=== PATIENT | male | born 1955 | race Caucasian/White ===

== ENCOUNTER → 2018-05-12 09:48 | Outpatient (CLI) | payer OTHER, SELFPAY ==
[2018-05-12 11:35] LABS: Add Manual Diff / Slide Review NO; Basophils Percent Auto 0.5 % (0-2); Eosinophils Percent Auto 0.5 % (2-4); Hematocrit 45.5 % (41-53); Hemoglobin 16.4 g/dL (13.5-17.5); Mean Corpuscular Hemoglobin 33.6 PG (26-34); Mean Corpuscular Volume 93.5 fL (80-100); Monocytes Percent Auto 15.8 % (3-14); Neutrophils Absolute Auto 4400 /uL (3000-5900); Neutrophils Percent Auto 65.2 % (50-75); Platelet Count 203 X10^3/uL (150-400); Red Blood Cell Count 4.87 X10^6/uL (4.5-5.9); Red Cell Distribution Width 12.6 % (11.6-14.8); White Blood Cell Count 6.8 X10^3/uL (4.5-11.0)
[2018-05-12 11:59] LABS: Alanine Aminotransferase 304 IU/L (21-72); Albumin 4.4 g/dL (3.5-5.0); Albumin Globulin Ratio 1.1 (1.0-2.8); Alkaline Phosphatase 89 U/L (38-126); Aspartate Aminotransferase 241 IU/L (17-59); BUN Creatinine Ratio 17.5 (6-22); Bilirubin Total 0.9 mg/dL (0.2-1.3); Blood Urea Nitrogen 14 mg/dL (9-20); Calcium 9.3 mg/dL (8.4-10.2); Carbon Dioxide 33 mmol/L (22-32); Chloride 102 mmol/L (98-107); Estimated Glomerular Filt Rate > 60.0 mL/min (>60); Glucose 146 mg/dL (80-110); HEMOLYSIS 19 (0-50); Potassium 3.7 mmol/L (3.4-5.1); Sodium 144 mmol/L (137-145); Total Protein 8.4 g/dL (6.3-8.2)
[2018-05-12 13:04] LABS: Hemoglobin A1C% w Est Avg Glu 5.7 % (4.0-6.0)
[2018-05-16 14:18] LABS: Parathyroid Hormone Int 64 pg/mL (14-64)
== END ==
PROVIDERS: PCP Internal Medicine; Visit Provider Internal Medicine
DX: K73.9 Chronic hepatitis, unspecified (principal); E78.2 Mixed hyperlipidemia; R97.20 Elevated prostate specific antigen [PSA]; I10 Essential (primary) hypertension; I25.10 Atherosclerotic heart disease of native coronary artery without angina pectoris; R73.9 Hyperglycemia, unspecified
CPT/HCPCS: 36415; 80053; 83036; 83970; 84153; 85025

== ENCOUNTER → 2018-08-07 12:12 | Outpatient (CLI) | payer OTHER, SELFPAY ==
[2018-08-07 14:14] LABS: BUN Creatinine Ratio 26.3 (6-22); Blood Urea Nitrogen 21 mg/dL (9-20); Calcium 9.5 mg/dL (8.4-10.2); Carbon Dioxide 30 mmol/L (22-32); Chloride 106 mmol/L (98-107); Estimated Glomerular Filt Rate > 60.0 mL/min (>60); Glucose 93 mg/dL (80-110); HEMOLYSIS < 15 (0-50); Potassium 4.3 mmol/L (3.4-5.1); Sodium 145 mmol/L (137-145)
== END ==
PROVIDERS: PCP Internal Medicine; Visit Provider Internal Medicine
DX: B19.20 Unspecified viral hepatitis C without hepatic coma (principal); E83.52 Hypercalcemia; R97.20 Elevated prostate specific antigen [PSA]
CPT/HCPCS: 36415; 80048; 84153

== ENCOUNTER → 2019-01-24 06:57 | Outpatient (CLI) | payer OTHER, SELFPAY ==
[2019-01-24 07:43] LABS: Alanine Aminotransferase 229 IU/L (21-72); Albumin 4.6 g/dL (3.5-5.0); Albumin Globulin Ratio 1.2 (1.0-2.8); Alkaline Phosphatase 97 U/L (38-126); Aspartate Aminotransferase 169 IU/L (17-59); Bilirubin Total 1.2 mg/dL (0.2-1.3); Blood Urea Nitrogen 16 mg/dL (9-20); Calcium 10.1 mg/dL (8.4-10.2); Carbon Dioxide 29 mmol/L (22-32); Chloride 102 mmol/L (98-107); Cholesterol 181 mg/dL (140-199); Estimated Glomerular Filt Rate > 60.0 mL/min (>60); Globulin 3.9 g/dL (1.7-4.1); Glucose 143 mg/dL (80-110); HDL Cholesterol 52 mg/dL (40-60); HEMOLYSIS < 15 (0-50); LDL Cholesterol Calculated 107 mg/dL (<100); Sodium 140 mmol/L (137-145); Total Protein 8.5 g/dL (6.3-8.2); Triglycerides 110 mg/dL (35-150)
[2019-01-24 08:14] LABS: Prostate Specific Antigen 8.26 ng/mL (0.10-4.00)
== END ==
PROVIDERS: PCP Internal Medicine; Visit Provider Internal Medicine
DX: B19.20 Unspecified viral hepatitis C without hepatic coma (principal); I10 Essential (primary) hypertension; I25.10 Atherosclerotic heart disease of native coronary artery without angina pectoris; R97.20 Elevated prostate specific antigen [PSA]; E78.2 Mixed hyperlipidemia
CPT/HCPCS: 36415; 80053; 80061; 84153

== ENCOUNTER 2019-03-16 12:12 | Emergency (ER) | payer OTHER, SELFPAY ==
[2019-03-16 12:14] VITALS: BP 186/95; PULSE 70; RESP 18; TEMP 37; O2SAT 99
--- NOTE | 2019-03-16 12:26 | DI.CT.S_ITS ---
PROCEDURE: CT ABDOMEN PELVIS W CON INDICATIONS: pain TECHNIQUE: After the administration of intravenous contrast, 5 mm thick sections acquired from the diaphragm to the symphysis. 5 mm coronal and sagittal reformats were acquired. For radiation dose reduction, the following was used: automated exposure control, adjustment of mA and/or kV according to patient size. COMPARISON: [facility], CT, ABDOMEN/PELVIS WITH CONTRAST, 11/14/2016, 14:59. FINDINGS: Image quality: Excellent. ABDOMEN: Lung bases: Lung bases are clear. Heart size is normal. Solid organs: There are clustered coarse calcifications redemonstrated in the right anterior hepatic dome likely representing sequelae of prior infection. The gallbladder appears within normal limits without calcified gallstones. Biliary system is non-dilated. There are small foci of calcifications within the pancreas suggesting sequelae of chronic pancreatitis. No peripancreatic fat stranding or fluid collections to suggest acute pancreatitis. No pancreatic duct dilatation. The spleen is normal in size. No adrenal nodules. Kidneys demonstrate no hydronephrosis. Peritoneum and bowel: Small bowel loops demonstrate normal wall thickness and caliber. The appendix is normal in appearance. The cecum is located in the left paracentral region of the lower abdomen. No bowel distention or dilatation to suggest obstruction or volvulus. There is colonic diverticulosis without definite acute diverticulitis. There is mild segmental wall thickening in the sigmoid colon suggestive of a mild colitis. No free fluid or air. Nodes and vessels: No retroperitoneal or mesenteric adenopathy by size criteria. Aorta and inferior vena cava are normal in size. Miscellaneous: No ventral hernias. PELVIS: Genitourinary: Bladder wall thickness is normal. There is heterogeneity of the prostate. There is a slightly hyperattenuating mass lesion in the right peripheral zone measuring approximately 2.2 x 1.7 cm in transverse dimension. Miscellaneous: No inguinal hernias or adenopathy. Bones: No suspicious bony lesions. No vertebral body compression fractures. IMPRESSION: 1. Mild segmental wall thickening in the sigmoid colon suggestive of a nonspecific infectious or inflammatory colitis. 2. Colonic diverticulosis without definite acute diverticulitis. 3. Heterogeneous appearance of the prostate with a slightly hyperattenuating mass lesion on the right. Recommend urologic consultation and consider further evaluation with a prostate MRI if clinically indicated. Dictated by: Brian Austin M.D. on 03/16/2019 at 13:47 Approved by: Brian Austin M.D. on 03/16/2019 at 13:55
[2019-03-16 12:30] VITALS: BP 178/99; PULSE 56; RESP 16; TEMP 36.7; O2SAT 100
--- NOTE | 2019-03-16 12:43 | ED.NAVMDI ---
HPI - Nausea/Vomiting/Diarrhea General Chief complaint: Nausea/Vomiting/Diarrhea Stated complaint: vomiting for 3 days Time Seen by Provider: 03/16/19 12:20 Source: patient Mode of arrival: ambulatory Limitations: no limitations History of Present Illness HPI Narrative: Patient is a 63-year-old male who presents with nausea vomiting abdominal pain ongoing for 3 days. He has a history of hepatitis-C. He says he does get these flare-ups at times he has ODT Zofran at home however he was unable to keep that down I did not seem to be working. He does have a history coronary artery disease he has not been able to take his heart medication either. He denies any diarrhea. He does get severe episodes like this he is usually able to control it however this time he is not. Pain seems to be quite severe and he is quite nauseous as well. MD complaint: nausea, vomiting and abdominal pain Onset (ago): day(s) (3) Description of Vomiting: watery Description of Diarrhea: none Related Data Home Medications Medication Instructions Recorded Confirmed aspirin 81 mg PO QDAY #0 04/05/13 02/01/19 Previous Rx's Medication Instructions Recorded morphine 20 mg/5 mL (4 mg/mL) oral See Rx Instructions .ROUTE 05/12/18 solution .COMPLEX PRN #100 ml simvastatin 40 mg PO QDAY #90 tab 06/12/18 ondansetron [Zofran ODT] 4 mg SUBLINGUAL Q6HP PRN #20 odt 06/15/18 clopidogrel 75 mg tablet 75 mg PO QDAY #90 tab 10/03/18 cyclobenzaprine 0 PO TID #90 tab 10/17/18 oxycodone 5 mg tablet See Rx Instructions PO Q4HP PRN 11/16/18 #360 tab metoprolol tartrate 50 mg PO BID #60 tab 02/12/19 Allergies Allergy/AdvReac Type Severity Reaction Status Date / Time No Known Drug Allergies Allergy Verified 02/01/19 09:20 Review of Systems Review of Systems GENERAL: Denies chills, fatigue, malaise, fever, sweats, travel HEENT: Denies sinus pain, ear pain, sore throat, difficulty swallowing, neck pain RESPIRATORY: Denies dyspnea, cough, wheezing, hemoptysis, sputum. CARDIOVASCULAR: Denies chest pain, palpitations, orthopnea, edema GASTROINTESTINAL: See HPI : Denies dysuria, frequency, incontinence, hematuria, urinary retention, flank pain. MUSCULOSKELETAL: Denies weakness, joint pain, or bony pain SKIN: No rash, no erythema, no pruritus NEUROLOGIC: Denies weakness, dizziness, headache, numbness, change in speech, confusion PSYCHIATRIC: No concerning psychosocial issues. 12 point review of systems is negative except for those stated above and HPI [facility] Medical History Diverticular disease (Chronic) Hepatitis C (Chronic) Mixed hyperlipidemia (Chronic) Essential hypertension (Chronic) Coronary artery disease involving [place] coronary artery of [place] heart without angina pectoris (Chronic) Cardiac arrhythmia (Chronic) Chronic hepatitis (Chronic) Diverticulosis of large intestine (Chronic 03/31/12) Abdominal pain (Resolved) Kidney stones (Resolved) Surgical History Hx of inguinal hernia surgery (Resolved ~09/20/08) Hx of inguinal hernia surgery (Resolved ~03/07/14) History of angioplasty (~12/2006) Status post laminectomy Social History marital status: unmarried,single number of children: 3 household members: none lives independently: Yes caregiver/support person: No housing: house pets and animals: No education level: high school (11th grade) occupational status: 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 HEENT: Head atraumatic,EOMI, pupils reactive CARDIOVASCULAR: Regular rate and rhythm without murmurs, rubs or gallops. RESPIRATORY: Breath sounds equal bilaterally, no wheezes rales or rhonchi. ABDOMEN: Soft, diffusely tender no guarding no rebound distention : No CVA tenderness EXTREMITIES: Normal range of motion, no clubbing or edema. Neurovascularly intact NEUROLOGICAL: Alert and oriented x4.Normal gait and speech. Cranial nerves II through XII grossly intact. SKIN: Warm, dry, no laceration, no petechiae, no rashes or lesions. Course Orders Ordered: ED Orders 03/16/19 12:25 EKG-12 Lead Stat 03/16/19 12:26 CT abdomen pelvis w con Stat 03/16/19 12:50 Complete Blood Count AUTO DIFF Stat Comprehensive Metabolic Panel Stat Lipase Stat Partial Thromboplastin Time Stat Prothrombin Time INR Stat 03/16/19 14:01 US abdomen limited Stat 03/16/19 16:10 Urine Microscopic Stat Discontinued Medications Hydromorphone HCl (Dilaudid) 1 mg SUBCUT Q4H PRN PRN Reason: Pain, Severe (7-10) Hydromorphone HCl (Dilaudid) 1 mg IV NOW ONE Stop: 03/16/19 13:00 Last Admin: 03/16/19 13:01 Dose: 1 mg Hydromorphone HCl (Dilaudid) 1 mg IV NOW ONE Stop: 03/16/19 15:22 Last Admin: 03/16/19 15:53 Dose: 1 mg Sodium Chloride (Normal Saline 0.9%) 1,000 mls @ 1,000 mls/hr IV BOLUS ONE Stop: 03/16/19 13:25 Last Infusion: 03/16/19 14:49 Dose: 0 mls/hr Admin: 03/16/19 13:03 Dose: 1,000 mls/hr Ondansetron HCl (Zofran) 4 mg IV NOW ONE Stop: 03/16/19 12:19 Last Admin: 03/16/19 13:00 Dose: 4 mg Ondansetron HCl (Zofran) 4 mg IV NOW ONE Stop: 03/16/19 12:27 Last Admin: 03/16/19 14:49 Dose: Not Given Pantoprazole Sodium (Protonix) 40 mg IV NOW ONE Stop: 03/16/19 12:27 Last Admin: 03/16/19 13:05 Dose: 40 mg Vital Signs - 8 hr 03/16/19 12:14 03/16/19 12:30 03/16/19 14:30 Temperature 98.6 F 98.0 F Pulse Rate 70 56 L 72 Respiratory Rate 18 16 14 Blood Pressure 186/95 H Blood Pressure [Right Arm] 178/99 H 127/83 Pulse Oximetry 99 100 98 03/16/19 16:09 Temperature 97.5 F L Pulse Rate 71 Respiratory Rate 18 Blood Pressure Blood Pressure [Right Arm] 124/77 Pulse Oximetry 96 MDM - Nausea/Vomiting/Diarrhea Lab Data Attestation: I reviewed the patient's lab results. Result diagrams: 03/16/19 12:50 03/16/19 12:50 Lab Results 03/16/19 03/16/19 03/16/19 Range/Units 12:50 12:50 12:50 WBC 7.9 (4.5-11.0) X10^3/uL RBC 5.35 (4.5-5.9) X10^6/uL Hgb 17.7 H (13.5-17.5) g/dL Hct 50.2 (41-53) % MCV 93.8 (80-100) fL MCH 33.1 (26-34) PG MCHC 35.3 (30-36) % RDW 12.7 (11.6-14.8) % Plt Count 196 (150-400) X10^3/uL Neut % (Auto) 88.1 H (50-75) % Lymph % (Auto) 6.2 L (25-40) % Nash % (Auto) 5.3 (3-14) % Eos % (Auto) 0.1 L (2-4) % Baso % (Auto) 0.3 (0-2) % Neut # (Auto) 7000 (4633-4727) /uL Lymph # (Auto) 500 L (8337-7931) /uL Nash # (Auto) 400 (0-900) /uL Eos # (Auto) 0 (0-450) /uL Baso # (Auto) 0 (0-100) /uL PT 12.3 (10.1-12.7) SECONDS INR 1.1 (0.9-1.3) APTT 25 L (26.4-36.2) SECONDS Sodium 142 (137-145) mmol/L Potassium 4.0 (3.4-5.1) mmol/L Chloride 104 (98-107) mmol/L Carbon Dioxide 25 (22-32) mmol/L BUN 23 H (9-20) mg/dL Creatinine 0.80 (0.66-1.25) mg/dL Estimated GFR > 60.0 (>60) mL/min BUN/Creatinine Ratio 28.8 H (6-22) Glucose 213 H (80-110) mg/dL Calcium 10.0 (8.4-10.2) mg/dL Total Bilirubin 2.3 H (0.2-1.3) mg/dL AST 354 H (17-59) IU/L ALT 366 H (21-72) IU/L Alkaline Phosphatase 101 (38-126) U/L Total Protein 9.1 H (6.3-8.2) g/dL Albumin 4.8 (3.5-5.0) g/dL Globulin 4.3 H (1.7-4.1) g/dL Albumin/Globulin Ratio 1.1 (1.0-2.8) Lipase 51 (23-300) U/L Urine RBC (0-5/HPF) Urine WBC (0-5/HPF) Urine Bacteria (None) Ur Culture Indicated? Micro UA Comment 03/16/19 Range/Units 16:10 WBC (4.5-11.0) X10^3/uL RBC (4.5-5.9) X10^6/uL Hgb (13.5-17.5) g/dL Hct (41-53) % MCV (80-100) fL MCH (26-34) PG MCHC (30-36) % RDW (11.6-14.8) % Plt Count (150-400) X10^3/uL Neut % (Auto) (50-75) % Lymph % (Auto) (25-40) % Nash % (Auto) (3-14) % Eos % (Auto) (2-4) % Baso % (Auto) (0-2) % Neut # (Auto) (0184-7923) /uL Lymph # (Auto) (4996-4496) /uL Nash # (Auto) (0-900) /uL Eos # (Auto) (0-450) /uL Baso # (Auto) (0-100) /uL PT (10.1-12.7) SECONDS INR (0.9-1.3) APTT (26.4-36.2) SECONDS Sodium (137-145) mmol/L Potassium (3.4-5.1) mmol/L Chloride (98-107) mmol/L Carbon Dioxide (22-32) mmol/L BUN (9-20) mg/dL Creatinine (0.66-1.25) mg/dL Estimated GFR (>60) mL/min BUN/Creatinine Ratio (6-22) Glucose (80-110) mg/dL Calcium (8.4-10.2) mg/dL Total Bilirubin (0.2-1.3) mg/dL AST (17-59) IU/L ALT (21-72) IU/L Alkaline Phosphatase (38-126) U/L Total Protein (6.3-8.2) g/dL Albumin (3.5-5.0) g/dL Globulin (1.7-4.1) g/dL Albumin/Globulin Ratio (1.0-2.8) Lipase (23-300) U/L Urine RBC None seen (0-5/HPF) Urine WBC None seen (0-5/HPF) Urine Bacteria None seen (None) Ur Culture Indicated? Cult not indicated Micro UA Comment Microscopic normal Urine Dip Bedside Urine Glucose Negative Bedside Urine Bilirubin - Negative Bedside Urine Ketone + 15 Urine Specific [place] 1.010 Bedside Urine Occult Blood - Negative Bedside Urine pH 6.5 Bedside Urine Protein +/- 15 Bedside Urine Urobilinogen 1+ 2mg Bedside Urine Nitrite - Negative Bedside Urine Leukocytes - Negative Esterase Imaging Data CT scan - abdomen: Radiologist's impression: PROCEDURE: CT ABDOMEN PELVIS W CON INDICATIONS: pain TECHNIQUE: After the administration of intravenous contrast, 5 mm thick sections acquired from the diaphragm to the symphysis. 5 mm coronal and sagittal reformats were acquired. For radiation dose reduction, the following was used: automated exposure control, adjustment of mA and/or kV according to patient size. COMPARISON: [facility], CT, ABDOMEN/PELVIS WITH CONTRAST, 11/14/2016, 14:59. FINDINGS: Image quality: Excellent. ABDOMEN: Lung bases: Lung bases are clear. Heart size is normal. Solid organs: There are clustered coarse calcifications redemonstrated in the right anterior hepatic dome likely representing sequelae of prior infection. The gallbladder appears within normal limits without calcified gallstones. Biliary system is non-dilated. There are small foci of calcifications within the pancreas suggesting sequelae of chronic pancreatitis. No peripancreatic fat stranding or fluid collections to suggest acute pancreatitis. No pancreatic duct dilatation. The spleen is normal in size. No adrenal nodules. Kidneys demonstrate no hydronephrosis. Peritoneum and bowel: Small bowel loops demonstrate normal wall thickness and caliber. The appendix is normal in appearance. The cecum is located in the left paracentral region of the lower abdomen. No bowel distention or dilatation to suggest obstruction or volvulus. There is colonic diverticulosis without definite acute diverticulitis. There is mild segmental wall thickening in the sigmoid colon suggestive of a mild colitis. No free fluid or air. Nodes and vessels: No retroperitoneal or mesenteric adenopathy by size criteria. Aorta and inferior vena cava are normal in size. Miscellaneous: No ventral hernias. PELVIS: Genitourinary: Bladder wall thickness is normal. There is heterogeneity of the prostate. There is a slightly hyperattenuating mass lesion in the right peripheral zone measuring approximately 2.2 x 1.7 cm in transverse dimension. Miscellaneous: No inguinal hernias or adenopathy. Bones: No suspicious bony lesions. No vertebral body compression fractures. IMPRESSION: 1. Mild segmental wall thickening in the sigmoid colon suggestive of a nonspecific infectious or inflammatory colitis. 2. Colonic diverticulosis without definite acute diverticulitis. 3. Heterogeneous appearance of the prostate with a slightly hyperattenuating mass lesion on the right. Recommend urologic consultation and consider further evaluation with a prostate MRI if clinically indicated. Dictated by: Brian Austin M.D. on 03/16/2019 at 13:4 US - abdomen: Radiologist's impression: PROCEDURE: US ABDOMEN LIMITED INDICATIONS: ELEV BILI, RUQ TECHNIQUE: Real-time focused scanning was performed of the abdomen, with image documentation. COMPARISON: [facility], CT, CT ABDOMEN PELVIS W CON, 03/16/2019, 13:21. FINDINGS: The liver is normal in size. There is slight increased echogenicity of the liver when compared to the right kidney. Posterior calcifications is seen within the right hepatic lobe near the dome of the liver. No cystic or solid liver lesion is evident. There is no intrahepatic or extrahepatic biliary dilatation. The common bile duct measures 6 mm in diameter. The gallbladder is within normal limits without cholelithiasis or gall bladder wall inflammation. Imaged portions of the right kidney are unremarkable. The imaged portions of the pancreas are also unremarkable. No free fluid is seen within the upper abdomen. IMPRESSION: 1. No cholelithiasis or evidence to suggest acute cholecystitis. 2. Calcified granulomas of the liver. 3. Possible mild hepatic steatosis. Dictated by: Raghavendra Marcos M.D. on 03/16/2019 at 14:15 Approved by: Raghavendra Marcos M.D. on 03/16/2019 at 14:18 ECG Data Attestation: I personally reviewed and interpreted this ECG as follows: Prior ECG tracings: available for review Interpretation: Low voltage sinus rhythm no ST changes MDM Narrative Medical decision making narrative: The patient has mild colitis on CT. he has no leukocytosis he has been afebrile. However this might be part of his pain. He is also noted to have elevated bilirubin and liver enzymes. Ultrasound did not show any gallstones or dilated biliary duct. From his hepatitis. He states that his numbers have been gradually getting worse as well. He was worried he may have a gall bladder issue. At this time we discussed antibiotics for colitis versus conservative watchful waiting. At this time he does not want antibiotics he does not tolerate them well. I see no clear indication for them without fever or leukocytosis. He overall is feeling significantly better after Dilaudid he is tolerating oral fluids. He feels ready and able to go down. Discharge Plan Departure Patient Disposition: Home Clinical Impression: Colitis Discharge Date/Time: 03/16/19 16:49 Interventions: ED Discharge Assessment Last Done: 03/16/19 16:49 Instructions: DI for Colitis Activity Restrictions/Additional Instructions: *You have been diagnosed with colitis *What to do: At this time he likely have some inflammation of her intestine. At this time let us try and hold off antibiotics and see if it improves. It is only listed as mild the CT. Her gallbladder and liver enzymes are slightly elevated however ultrasound is reassuring. This is likely from her hepatitis. *Continue to take medications as directed *Follow up with your primary care provider in 2-3 days *Return to ER if you should have inability to tolerate fluids, worsening pain or any new, worsening or concerning symptoms Prescriptions: No Action aspirin 81 MG tablet,delayed release (DR/EC) 81 mg PO QDAY Qty: 0 RF: 0 simvastatin 40 mg tablet 40 mg PO QDAY Qty: 90 RF: 3 ondansetron [Zofran ODT] 4 mg tablet,disintegrating 4 mg Sublingual Q6HP PRNQty: 20 RF: 0 clopidogrel [Plavix] 75 mg tablet 75 mg PO QDAY Qty: 90 RF: 3 cyclobenzaprine 5 mg tablet PO TID Qty: 90 RF: 1 oxycodone 5 mg tablet See Rx Instructions PO Q4HP PRN (Reason: pain) Qty: 360 RF: 0 metoprolol tartrate 50 mg tablet 50 mg PO BID Qty: 60 RF: 3 morphine 20 mg/5 mL (4 mg/mL) solution See Rx Instructions .ROUTE .COMPLEX PRN (Reason: severe pain) Qty: 100 RF: 0 Referrals: Khang Vasques MD [Primary Care Provider] -
[2019-03-16 12:57] LABS: Add Manual Diff / Slide Review NO; Basophils Absolute Auto 0 /uL (0-100); Basophils Percent Auto 0.3 % (0-2); Eosinophils Absolute Auto 0 /uL (0-450); Eosinophils Percent Auto 0.1 % (2-4); Hematocrit 50.2 % (41-53); Hemoglobin 17.7 g/dL (13.5-17.5); Lymphocytes Absolute Auto 500 /uL (1100-4500); Lymphocytes Percent Auto 6.2 % (25-40); Mean Corpuscular HGB Conc 35.3 % (30-36); Mean Corpuscular Hemoglobin 33.1 PG (26-34); Mean Corpuscular Volume 93.8 fL (80-100); Monocytes Absolute Auto 400 /uL (0-900); Monocytes Percent Auto 5.3 % (3-14); Neutrophils Absolute Auto 7000 /uL (1500-7000); Neutrophils Percent Auto 88.1 % (50-75); Platelet Count 196 X10^3/uL (150-400); Red Blood Cell Count 5.35 X10^6/uL (4.5-5.9); Red Cell Distribution Width 12.7 % (11.6-14.8); White Blood Cell Count 7.9 X10^3/uL (4.5-11.0)
[2019-03-16] MEDS: ONDANSETRON 4 MG/2 ML INJ IV (13:00)
[2019-03-16] MEDS: HYDROMORPHONE 1 MG INJ IV ×2 (13:01→15:53)
[2019-03-16 13:03] LABS: INR 1.1 (0.9-1.3); Prothrombin Time 12.3 SECONDS (10.1-12.7)
[2019-03-16] MEDS: SODIUM CHLORIDE 0.9% 1,000 ML 1000 ML IV (13:03)
[2019-03-16 13:05] LABS: PTT Partial Thromboplastin Tim 25 SECONDS (26.4-36.2)
[2019-03-16] MEDS: PANTOPRAZOLE 40 MG VIAL IV (13:05)
[2019-03-16 13:07] LABS: Alanine Aminotransferase 366 IU/L (21-72); Albumin 4.8 g/dL (3.5-5.0); Albumin Globulin Ratio 1.1 (1.0-2.8); Alkaline Phosphatase 101 U/L (38-126); Aspartate Aminotransferase 354 IU/L (17-59); BUN Creatinine Ratio 28.8 (6-22); Bilirubin Total 2.3 mg/dL (0.2-1.3); Blood Urea Nitrogen 23 mg/dL (9-20); Carbon Dioxide 25 mmol/L (22-32); Chloride 104 mmol/L (98-107); Estimated Glomerular Filt Rate > 60.0 mL/min (>60); Globulin 4.3 g/dL (1.7-4.1); Glucose 213 mg/dL (80-110); HEMOLYSIS < 15 (0-50); Lipase 51 U/L (23-300); Sodium 142 mmol/L (137-145); Total Protein 9.1 g/dL (6.3-8.2)
--- NOTE | 2019-03-16 14:01 | DI.US.S_ITS ---
PROCEDURE: US ABDOMEN LIMITED INDICATIONS: ELEV BILI, RUQ TECHNIQUE: Real-time focused scanning was performed of the abdomen, with image documentation. COMPARISON: [facility], CT, CT ABDOMEN PELVIS W CON, 03/16/2019, 13:21. FINDINGS: The liver is normal in size. There is slight increased echogenicity of the liver when compared to the right kidney. Posterior calcifications is seen within the right hepatic lobe near the dome of the liver. No cystic or solid liver lesion is evident. There is no intrahepatic or extrahepatic biliary dilatation. The common bile duct measures 6 mm in diameter. The gallbladder is within normal limits without cholelithiasis or gall bladder wall inflammation. Imaged portions of the right kidney are unremarkable. The imaged portions of the pancreas are also unremarkable. No free fluid is seen within the upper abdomen. IMPRESSION: 1. No cholelithiasis or evidence to suggest acute cholecystitis. 2. Calcified granulomas of the liver. 3. Possible mild hepatic steatosis. Dictated by: Raghavendra Marcos M.D. on 03/16/2019 at 14:15 Approved by: Raghavendra Marcos M.D. on 03/16/2019 at 14:18
[2019-03-16 14:30] VITALS: BP 127/83; PULSE 72; RESP 14; O2SAT 98
[2019-03-16 16:09] VITALS: BP 124/77; PULSE 71; RESP 18; TEMP 36.4; O2SAT 96
[2019-03-16 16:15] LABS: Bacteria Urine None Seen; RBC Urine None Seen (0-5/HPF); WBC Urine None Seen (0-5/HPF)
[2019-03-16 16:22] LABS: Culture Indicated Urine Cult Not Indicated; Urine Comments Microscopic Normal
== END 2019-03-16 16:49 | disposition home or self-care (01) ==
PROVIDERS: Emergency Provider Emergency Medicine; PCP Internal Medicine
DX: K52.9 Noninfective gastroenteritis and colitis, unspecified (principal); R10.84 Generalized abdominal pain
CPT/HCPCS: 36591; 74177; 76705; 80053; 81003; 81015; 83690; 85025; 85610; 85730; 93005; 93010; 96361; 96374; 96375; 96376; 99283; 99285; C9113; J1170; J2405; Q9967

== ENCOUNTER 2019-04-22 19:31 | Emergency (ER) | payer OTHER, SELFPAY ==
[2019-04-22 19:54] VITALS: BP 194/91; PULSE 56; RESP 19; TEMP 37.3; O2SAT 100; BMI 21.9
--- NOTE | 2019-04-22 20:07 | ED.ABDPAIN ---
HPI - Abdominal Pain General Chief Complaint: Abdominal Pain Stated Complaint: ?cholitis today Time Seen by Provider: 04/22/19 20:00 Source: patient and old records reviewed Mode of arrival: ambulatory Limitations: no limitations History of Present Illness HPI narrative: Patient is a 63-year-old male presenting with lower abdominal pain, he said it started around 4:00 a.m. this morning. He has had this in fact I saw him a month ago for the same. He was diagnosed with colitis at that time no antibiotics were given. He saw his PCP he was given prednisone to help with some of the inflammation. He actually started taking some of the prednisone for this pain but it has not helped. He has able to keep any of his medications down due to vomiting. He has not had any diarrhea. He seems to be in severe pain. MD complaint: abdominal pain Onset (ago): hour(s) Severity: severe Quality: cramping Radiation: none Migration to: no migration Relieving factors: nothing Exacerbating factors: nothing Related Data Home Medications Medication Instructions Recorded Confirmed aspirin 81 mg PO QDAY #0 04/05/13 04/19/19 cyclobenzaprine 5 mg tablet 5 mg PO TID PRN tab 03/20/19 04/19/19 Previous Rx's Medication Instructions Recorded simvastatin 40 mg PO QDAY #90 tab 06/12/18 ondansetron [Zofran ODT] 4 mg SUBLINGUAL Q6HP PRN #20 odt 06/15/18 clopidogrel 75 mg tablet 75 mg PO QDAY #90 tab 10/03/18 metoprolol tartrate 50 mg PO BID #60 tab 02/12/[address] - ER 3 mg 6 mg PO QAM #60 each 03/20/19 capsule,delayed,extended release morphine 20 mg/5 mL (4 mg/mL) oral See Rx Instructions .ROUTE 03/20/19 solution .COMPLEX PRN #100 ml oxycodone 5 mg tablet See Rx Instructions PO Q4HP PRN 03/20/19 #360 tab Allergies Allergy/AdvReac Type Severity Reaction Status Date / Time No Known Drug Allergies Allergy Verified 04/19/19 09:33 Review of Systems Review of Systems GENERAL: Denies chills, fatigue, malaise, fever, sweats, travel HEENT: Denies sinus pain, ear pain, sore throat, difficulty swallowing, neck pain RESPIRATORY: Denies dyspnea, cough, wheezing, hemoptysis, sputum. CARDIOVASCULAR: Denies chest pain, palpitations, orthopnea, edema GASTROINTESTINAL: See HPI : Denies dysuria, frequency, incontinence, hematuria, urinary retention, flank pain. MUSCULOSKELETAL: Denies weakness, joint pain, or bony pain SKIN: No rash, no erythema, no pruritus NEUROLOGIC: Denies weakness, dizziness, headache, numbness, change in speech, confusion PSYCHIATRIC: No concerning psychosocial issues. 12 point review of systems is negative except for those stated above and HPI [facility] Medical History Diverticular disease (Chronic) Hepatitis C (Chronic) Mixed hyperlipidemia (Chronic) Essential hypertension (Chronic) Coronary artery disease involving [place] coronary artery of [place] heart without angina pectoris (Chronic) Cardiac arrhythmia (Chronic) Chronic hepatitis (Chronic) Diverticulosis of large intestine (Chronic 03/31/12) Abdominal pain (Resolved) Kidney stones (Resolved) Surgical History Hx of inguinal hernia surgery (Resolved ~09/20/08) Hx of inguinal hernia surgery (Resolved ~03/07/14) History of angioplasty (~12/2006) Status post laminectomy Social History marital status: unmarried,single number of children: 3 household members: none lives independently: Yes caregiver/support person: No housing: house pets and animals: No education level: high school (11th grade) occupational status: 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) Smoking Status: Former smoker Tobacco: How many years used: 56 (On and off.) Smokeless tobacco user: other (Marijuana) quit status: has quit before (On and off.) second hand exposure: Yes (On farm[place]/Boat.) alcohol intake: current (1 beer 3x a week.) substance use type: does not use and marijuana (On and off.) Social History marital status: unmarried,single number of children: 3 household members: none lives independently: Yes caregiver/support person: No housing: house pets and animals: No education level: high school (11th grade) occupational status: 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 RESPIRATORY: Breath sounds equal bilaterally, no wheezes rales or rhonchi. ABDOMEN: Significant lower abdominal tenderness no localization no distension : No CVA tenderness EXTREMITIES: Normal range of motion, no clubbing or edema. Neurovascularly intact NEUROLOGICAL: Alert and oriented x4.Normal gait and speech. Cranial nerves II through XII grossly intact. SKIN: Warm, dry, no laceration, no petechiae, no rashes or lesions. Course Orders Ordered: ED Orders 04/22/19 20:07 CT abdomen pelvis w con Stat 04/22/19 20:18 Complete Blood Count AUTO DIFF Stat Comprehensive Metabolic Panel Stat Lipase Stat Partial Thromboplastin Time Stat Prothrombin Time INR Stat Discontinued Medications Hydromorphone HCl (Dilaudid) 1 mg IV NOW ONE Stop: 04/22/19 20:08 Last Admin: 04/22/19 20:17 Dose: 1 mg Hydromorphone HCl (Dilaudid) 1 mg IV NOW ONE Stop: 04/22/19 21:42 Last Admin: 04/22/19 21:49 Dose: 1 mg Sodium Chloride (Normal Saline 0.9%) 1,000 mls @ 1,000 mls/hr IV BOLUS ONE Stop: 04/22/19 21:06 Last Infusion: 04/22/19 21:42 Dose: 0 mls/hr Admin: 04/22/19 20:17 Dose: 1,000 mls/hr Ketorolac Tromethamine (Toradol) 30 mg IV NOW ONE Stop: 04/22/19 22:18 Last Admin: 04/22/19 22:24 Dose: 30 mg Methylprednisolone (Solu-Medrol 125 Mg Vial) 125 mg IV NOW ONE Stop: 04/22/19 21:44 Last Admin: 04/22/19 21:49 Dose: 125 mg Ondansetron HCl (Zofran) 4 mg IV NOW ONE Stop: 04/22/19 20:08 Last Admin: 04/22/19 20:17 Dose: 4 mg Vital Signs - 8 hr 04/22/19 19:54 04/22/19 21:00 04/22/19 22:30 Temperature 99.2 F Pulse Rate 56 L 76 82 Respiratory Rate 19 15 Blood Pressure 194/91 H Blood Pressure [Left Arm] Blood Pressure [Left Wrist] 125/76 132/82 Pulse Oximetry 100 97 97 04/22/19 22:44 Temperature Pulse Rate 76 Respiratory Rate 16 Blood Pressure Blood Pressure [Left Arm] 132/82 Blood Pressure [Left Wrist] Pulse Oximetry 98 MDM - Abdominal Pain Lab Data Attestation: I reviewed the patient's lab results. Result diagrams: 04/22/19 20:18 04/22/19 20:18 Lab Results 04/22/19 04/22/19 04/22/19 Range/Units 20:18 20:18 20:18 WBC 7.2 (4.5-11.0) X10^3/uL RBC 4.86 (4.5-5.9) X10^6/uL Hgb 16.2 (13.5-17.5) g/dL Hct 46.1 (41-53) % MCV 94.8 (80-100) fL MCH 33.4 (26-34) PG MCHC 35.2 (30-36) % RDW 13.1 (11.6-14.8) % Plt Count 156 (150-400) X10^3/uL Neut % (Auto) 87.7 H (50-75) % Lymph % (Auto) 7.6 L (25-40) % [place] % (Auto) 4.6 (3-14) % Eos % (Auto) 0.0 L (2-4) % Baso % (Auto) 0.1 (0-2) % Neut # (Auto) 6300 (2777-1143) /uL Lymph # (Auto) 600 L (7243-7767) /uL [place] # (Auto) 300 (0-900) /uL Eos # (Auto) 0 (0-450) /uL Baso # (Auto) 0 (0-100) /uL PT 12.4 (10.1-12.7) SECONDS INR 1.1 (0.9-1.3) APTT 29 D (26.4-36.2) SECONDS Sodium 140 (137-145) mmol/L Potassium 3.9 (3.4-5.1) mmol/L Chloride 108 H (98-107) mmol/L Carbon Dioxide 22 (22-32) mmol/L BUN 15 (9-20) mg/dL Creatinine 0.60 L (0.66-1.25) mg/dL Estimated GFR > 60.0 (>60) mL/min BUN/Creatinine Ratio 25.0 H (6-22) Glucose 223 H (80-110) mg/dL Calcium 9.6 (8.4-10.2) mg/dL Total Bilirubin 1.5 H (0.2-1.3) mg/dL AST 108 H (17-59) IU/L ALT 173 H (21-72) IU/L Alkaline Phosphatase 106 (38-126) U/L Total Protein 8.3 H (6.3-8.2) g/dL Albumin 4.3 (3.5-5.0) g/dL Globulin 4.0 (1.7-4.1) g/dL Albumin/Globulin Ratio 1.1 (1.0-2.8) Lipase 21 L (23-300) U/L Imaging Data CT scan - abdomen: Radiologist's impression: PROCEDURE: CT ABDOMEN PELVIS W CON INDICATIONS: severe low ab pain TECHNIQUE: After the administration of intravenous contrast, 5 mm thick sections acquired from the diaphragm to the symphysis. 5 mm coronal and sagittal reformats were acquired. For radiation dose reduction, the following was used: automated exposure control, adjustment of mA and/or kV according to patient size. COMPARISON: [facility], CT, CT ABDOMEN PELVIS W CON, 03/16/2019, 13:21. FINDINGS: Image quality: Excellent. ABDOMEN: Lung bases: Lung bases are clear. Heart size is normal. Solid organs: Liver is normal in size and enhancement. Small area of calcification at the hepatic dome is unchanged. Gallbladder is unremarkable. Biliary system is non dilated. Pancreas enhances normally. Punctate calcification at the tail the pancreas. Spleen is normal in size and enhancement. No adrenal nodules. Kidneys demonstrate normal size and enhancement, without hydronephrosis. Small simple cyst in the inferior right kidney. Peritoneum and bowel: The small bowel is in the right abdomen and the colon is in the left abdomen. There is reversal of the relationship of the SMA and SMV. Findings consistent with bowel malrotation. Mild colonic diverticulosis. The appendix is normal. The stomach is not distended. No bowel obstruction or significant ileus. Nodes and vessels: No retroperitoneal or mesenteric adenopathy by size criteria. Aorta and inferior vena cava are normal in size. Moderate aortoiliac atherosclerotic plaque. Miscellaneous: No ventral hernias. PELVIS: Genitourinary: Bladder wall thickness is normal. Miscellaneous: No inguinal hernias or adenopathy. Bones: No suspicious bony lesions. Mild DDD. No vertebral body compression fractures. IMPRESSION: 1. No acute abnormality identified. 2. Mild colonic diverticulosis. Bowel malrotation. Dictated by: Eric Butt M.D. on 04/22/2019 at 21:07 MDM Narrative Medical decision making narrative: Patient's pain did improve significantly with Dilaudid. He is afebrile no leukocytosis. Similar to previous labs and CT. Actually discussed with radiologist dimensions bowel malrotation. This a can general. It was also actually seen on the previous CT. This is unlikely to be causing acute pain. Patient of is given more Dilaudid and even a dose of Toradol. The Toradol seemed to help him the most. At this time he is tolerating fluids overall feeling significantly better. No indication for admission. Discussed with both patient and and to return to the ED. Strongly recommended only. Discharge Plan Departure Patient Disposition: Home Clinical Impression: Abdominal pain Qualifiers: Abdominal location: lower abdomen, unspecified Qualified Code(s): R10.30 - Lower abdominal pain, unspecified Discharge Date/Time: 04/22/19 22:59 Interventions: ED Discharge Assessment Last Done: 04/22/19 23:05 Instructions: DI for Abdominal Pain-Adult Activity Restrictions/Additional Instructions: *You have been diagnosed with abdominal pain *What to do: CT does not show significant inflammation. No sign of infection. Recommend colonoscopy which can be set up with her PCP *Continue to take medications as directed *Follow up with your primary care provider in 2-3 days *Return to ER if you should have increasing pain inability to tolerate fluids or any new, worsening or concerning symptoms Prescriptions: No Action aspirin 81 MG tablet,delayed release (DR/EC) 81 mg PO QDAY Qty: 0 RF: 0 simvastatin 40 mg tablet 40 mg PO QDAY Qty: 90 RF: 3 ondansetron [Zofran ODT] 4 mg tablet,disintegrating 4 mg Sublingual Q6HP PRNQty: 20 RF: 0 clopidogrel [Plavix] 75 mg tablet 75 mg PO QDAY Qty: 90 RF: 3 metoprolol tartrate 50 mg tablet 50 mg PO BID Qty: 60 RF: 3 cyclobenzaprine 5 mg tablet 5 mg PO TID PRNRF: 0 budesonide 3 mg capsule,delayed,extend.release 6 mg PO QAM Qty: 60 RF: 3 morphine 20 mg/5 mL (4 mg/mL) solution See Rx Instructions .ROUTE .COMPLEX PRN (Reason: severe pain) Qty: 100 RF: 0 oxycodone 5 mg tablet See Rx Instructions PO Q4HP PRN (Reason: pain) Qty: 360 RF: 0 Referrals: Khang Vasques MD [Primary Care Provider] -
[2019-04-22] MEDS: HYDROMORPHONE 1 MG INJ IV ×2 (20:17→21:49)
[2019-04-22] MEDS: ONDANSETRON 4 MG/2 ML INJ IV (20:17)
[2019-04-22] MEDS: SODIUM CHLORIDE 0.9% 1,000 ML 1000 ML IV (20:17)
[2019-04-22 20:24] LABS: Add Manual Diff / Slide Review NO; Basophils Absolute Auto 0 /uL (0-100); Basophils Percent Auto 0.1 % (0-2); Eosinophils Absolute Auto 0 /uL (0-450); Hematocrit 46.1 % (41-53); Hemoglobin 16.2 g/dL (13.5-17.5); Lymphocytes Absolute Auto 600 /uL (1100-4500); Lymphocytes Percent Auto 7.6 % (25-40); Mean Corpuscular HGB Conc 35.2 % (30-36); Mean Corpuscular Hemoglobin 33.4 PG (26-34); Mean Corpuscular Volume 94.8 fL (80-100); Monocytes Absolute Auto 300 /uL (0-900); Monocytes Percent Auto 4.6 % (3-14); Neutrophils Absolute Auto 6300 /uL (1500-7000); Neutrophils Percent Auto 87.7 % (50-75); Platelet Count 156 X10^3/uL (150-400); Red Blood Cell Count 4.86 X10^6/uL (4.5-5.9); Red Cell Distribution Width 13.1 % (11.6-14.8); White Blood Cell Count 7.2 X10^3/uL (4.5-11.0)
[2019-04-22 20:33] LABS: INR 1.1 (0.9-1.3); Prothrombin Time 12.4 SECONDS (10.1-12.7)
[2019-04-22 20:36] LABS: PTT Partial Thromboplastin Tim 29 SECONDS (26.4-36.2)
[2019-04-22 20:37] LABS: Alanine Aminotransferase 173 IU/L (21-72); Albumin 4.3 g/dL (3.5-5.0); Albumin Globulin Ratio 1.1 (1.0-2.8); Alkaline Phosphatase 106 U/L (38-126); Aspartate Aminotransferase 108 IU/L (17-59); Bilirubin Total 1.5 mg/dL (0.2-1.3); Blood Urea Nitrogen 15 mg/dL (9-20); Calcium 9.6 mg/dL (8.4-10.2); Carbon Dioxide 22 mmol/L (22-32); Chloride 108 mmol/L (98-107); Estimated Glomerular Filt Rate > 60.0 mL/min (>60); Glucose 223 mg/dL (80-110); HEMOLYSIS < 15 (0-50); Lipase 21 U/L (23-300); Potassium 3.9 mmol/L (3.4-5.1); Sodium 140 mmol/L (137-145); Total Protein 8.3 g/dL (6.3-8.2)
[2019-04-22 21:00] VITALS: BP 125/76; PULSE 76; O2SAT 97
[2019-04-22] MEDS: methylPREDNISolone 125 MG/2 ML VIAL IV (21:49)
[2019-04-22] MEDS: KETOROLAC 60 MG/2 ML VIAL 30 MG IV (22:24)
[2019-04-22 22:30] VITALS: BP 132/82; PULSE 82; RESP 15; O2SAT 97
[2019-04-22 22:44] VITALS: BP 132/82; PULSE 76; RESP 16; O2SAT 98
== END 2019-04-22 22:59 | disposition home or self-care (01) ==
PROVIDERS: Emergency Provider Emergency Medicine; PCP Internal Medicine
DX: R10.30 Lower abdominal pain, unspecified (principal)
CPT/HCPCS: 36591; 74177; 80053; 83690; 85025; 85610; 85730; 96361; 96374; 96375; 96376; 99283; 99284; J1170; J1885; J2405; J2930; Q9967

== ENCOUNTER 2019-05-20 14:36 | Emergency (ER) | payer OTHER, SELFPAY ==
[2019-05-20] VITALS (8 sets, daily range): BP systolic 101–205; BP diastolic 72–102; PULSE 43–76; RESP 9–24; TEMP 36.6–36.9; O2SAT 98–100
--- NOTE | 2019-05-20 15:15 | DI.CT.S_ITS ---
PROCEDURE: CT ABDOMEN PELVIS W CON INDICATIONS: severe pain TECHNIQUE: After the administration of intravenous contrast, 5 mm thick sections acquired from the diaphragm to the symphysis. 5 mm coronal and sagittal reformats were acquired. For radiation dose reduction, the following was used: automated exposure control, adjustment of mA and/or kV according to patient size. COMPARISON: [facility], US, US ABDOMEN LIMITED, 03/16/2019, 14:32. [facility], CT, CT-IVP, 11/13/2009, 11:10. [facility], CT, CT ABDOMEN PELVIS W CON, 03/16/2019, 13:21. [facility], CT, ABDOMEN/PELVIS WITH CONTRAST, 11/14/2016, 14:59. [facility], CT, CT ABDOMEN PELVIS W CON, 04/22/2019, 20:45. FINDINGS: Image quality: Excellent. ABDOMEN: Lung bases: Lung bases are clear. Heart size is normal. Solid organs: Liver is normal in size and enhancement. Dense calcification can be seen involving the right liver dome. Gallbladder is partially collapsed at the time of this study. Biliary system is non dilated. Pancreas enhances normally. Spleen is normal in size and enhancement. No adrenal nodules. Kidneys demonstrate normal size and enhancement, without hydronephrosis. A simple appearing cyst measuring water density and 1 cm can be seen inferior pole of the right kidney laterally. Peritoneum and bowel: Bowel malrotation is seen, with cecum to left to the midline. The superior mesenteric vein is seen to the left of the superior mesenteric artery (reversal from the normal anatomy). The colon is seen on the left side of the abdomen and demonstrates generalized inflammation. Mild surrounding inflammatory changes are seen. The small bowel loops are not dilated. There is seen on the right side of the abdomen. There are a few distal loops of small bowel demonstrate formed stool within. No free air or significant free fluid can be seen. A few distal colonic diverticula can be seen. Nodes and vessels: No retroperitoneal or mesenteric adenopathy by size criteria. Aorta and inferior vena cava are normal in size. Atherosclerotic calcification is noted. Miscellaneous: A mild periumbilical hernia is seen, containing fat. PELVIS: Genitourinary: Bladder wall thickness is normal. There is heterogeneity and increased enhancement seen involving the lateral right prostate. Miscellaneous: No inguinal hernias or adenopathy. Bones: No suspicious bony lesions. No vertebral body compression fractures. There are degenerative changes are seen, which are most prominent involving lower lumbar spine. IMPRESSION: Generalized colonic wall thickening can be seen with mild surrounding inflammatory change. This is attributed to nonspecific colitis. Please correlate with potential infectious inflammatory causes. A few distal small bowel loops demonstrate formed stool, without dilatation. This is can be seen in patients with stagnant small bowel contents. Bowel malrotation again noted. Abnormal enhancement and heterogeneous lateral aspect of prostate. Prostate mass is suspected. If not already done, please consider a urologic consultation. A dedicated prostate MRI may also be helpful for further evaluation (assuming that there is no contraindication). Incidental note is made of: Fat-containing periumbilical hernia Liver dome calcification, which demonstrates a benign appearance. Simple appearing right renal cyst Lower lumbar spine degenerative change Diverticulosis is seen, without findings of active diverticulitis. Dictated by: Adrian Segovia M.D. on 05/20/2019 at 15:38 Approved by: Adrian Segovia M.D. on 05/20/2019 at 15:52
[2019-05-20] MEDS: ONDANSETRON 4 MG/2 ML INJ IV (15:16)
[2019-05-20] MEDS: SODIUM CHLORIDE 0.9% 1,000 ML 1000 ML IV (15:16)
--- NOTE | 2019-05-20 15:20 | ED_ITS ---
HPI - Abdominal Pain General Chief Complaint: Abdominal Pain Stated Complaint: Throwing up Time Seen by Provider: 05/20/19 15:14 Source: patient and old records reviewed Limitations: no limitations History of Present Illness HPI narrative: Patient is a 63-year-old male who presents with severe lower abdominal pain. He has had this multiple times before history of colitis, blood work has been reassuring. He was last seen 04/22/2019. He says this started this morning he started vomiting now has severe pain. His heart rate is low in the 40s. He denies any chest pain shortness of breath dizziness or lightheadedness. He said he has thrown up multiple times. No bowel movements. He is in significant amount of pain. This seems to be happening to him once a month. MD complaint: abdominal pain Pain Consistency: constant Related Data Home Medications Medication Instructions Recorded Confirmed aspirin 81 mg PO QDAY #0 04/05/13 04/19/19 cyclobenzaprine 5 mg tablet 5 mg PO TID PRN tab 03/20/19 04/19/19 Previous Rx's Medication Instructions Recorded simvastatin 40 mg PO QDAY #90 tab 06/12/18 clopidogrel 75 mg tablet 75 mg PO QDAY #90 tab 10/03/18 metoprolol tartrate 50 mg PO BID #60 tab 02/12/19 budesonide 3 mg 6 mg PO QAM #60 each 03/20/19 capsule,delayed,extended release morphine 20 mg/5 mL (4 mg/mL) oral See Rx Instructions .ROUTE 03/20/19 solution .COMPLEX PRN #100 ml oxycodone 5 mg tablet See Rx Instructions PO Q4HP PRN 03/20/19 #360 tab ondansetron [Zofran ODT] 4 mg SUBLINGUAL Q6HP PRN #20 odt 04/25/19 Allergies Allergy/AdvReac Type Severity Reaction Status Date / Time No Known Drug Allergies Allergy Verified 05/20/19 14:58 Review of Systems Review of Systems Narrative: GENERAL: Denies chills, fatigue, malaise, fever, sweats, travel HEENT: Denies sinus pain, ear pain, sore throat, difficulty swallowing, neck pain RESPIRATORY: Denies dyspnea, cough, wheezing, hemoptysis, sputum. CARDIOVASCULAR: Denies chest pain, palpitations, orthopnea, edema GASTROINTESTINAL: See HPI : Denies dysuria, frequency, incontinence, hematuria, urinary retention, flank pain. MUSCULOSKELETAL: Denies weakness, joint pain, or bony pain SKIN: No rash, no erythema, no pruritus NEUROLOGIC: Denies weakness, dizziness, headache, numbness, change in speech, confusion PSYCHIATRIC: No concerning psychosocial issues. 12 point review of systems is negative except for those stated above and HPI [facility] Medical History Abdominal pain (Resolved) Cardiac arrhythmia (Chronic) Chronic hepatitis (Chronic) Coronary artery disease involving [place] coronary artery of [place] heart without angina pectoris (Chronic) Diverticular disease (Chronic) Diverticulosis of large intestine (Chronic 03/31/12) Essential hypertension (Chronic) Hepatitis C (Chronic) Kidney stones (Resolved) Mixed hyperlipidemia (Chronic) Surgical History History of angioplasty (~12/2006) Hx of inguinal hernia surgery (Resolved ~09/20/08) Hx of inguinal hernia surgery (Resolved ~03/07/14) Status post laminectomy Social History marital status: unmarried,single number of children: 3 household members: none lives independently: Yes caregiver/support person: No housing: house pets and animals: No education level: high school (11th grade) occupational status: 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.) alcohol intake: current (1 beer 3x a week.) substance use type: does not use and marijuana (On and off.) Social History marital status: unmarried,single number of children: 3 household members: none lives independently: Yes caregiver/support person: No housing: house pets and animals: No education level: high school (11th grade) occupational status: 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.) alcohol intake: current (1 beer 3x a week.) substance use type: does not use and marijuana (On and off.) Exam Initial Vital Signs Initial Vital Signs: Vital Signs Temperature 97.8 F 05/20/19 14:56 Pulse Rate 45 L 05/20/19 14:56 Respiratory Rate 24 05/20/19 14:56 Blood Pressure 104/72 05/20/19 14:56 Pulse Oximetry 100 05/20/19 14:56 GENERAL: Patient appears in pain slightly diaphoretic HEENT: Head atraumatic,EOMI, pupils reactive, face symmetric, moist mucous membranes CARDIOVASCULAR: Regular rate and rhythm without murmurs, rubs or gallops. RESPIRATORY: Breath sounds equal bilaterally, no wheezes rales or rhonchi. ABDOMEN: Soft no distention severe abdominal pain : No CVA tenderness EXTREMITIES: Normal range of motion, no clubbing or edema. Neurovascularly intact NEUROLOGICAL: Alert and oriented x4.Normal gait and speech. Cranial nerves II through XII grossly intact. SKIN: Warm, dry, no laceration, no petechiae, no rashes or lesions. Course Orders Ordered: ED Orders 05/20/19 15:02 EKG-12 Lead Stat 05/20/19 15:15 CT abdomen pelvis w con Stat 05/20/19 15:31 Complete Blood Count AUTO DIFF Stat Comprehensive Metabolic Panel Stat Lactate (Lactic Acid) Stat Lipase Stat Partial Thromboplastin Time Stat Prothrombin Time INR Stat 05/20/19 16:00 Urine Microscopic Stat Discontinued Medications Hydromorphone HCl (Dilaudid) 1 mg IV NOW ONE Stop: 05/20/19 15:16 Last Admin: 05/20/19 15:22 Dose: 1 mg Documented by: CHRISTA Hydromorphone HCl (Dilaudid) 2 mg IV NOW ONE Stop: 05/20/19 15:52 Last Admin: 05/20/19 15:58 Dose: 2 mg Documented by: CHRISTA Hydromorphone HCl (Dilaudid) 1 mg IV NOW ONE Stop: 05/20/19 18:27 Last Admin: 05/20/19 18:40 Dose: 1 mg Documented by: VIN Sodium Chloride (Normal Saline 0.9%) 1,000 mls @ 1,000 mls/hr IV BOLUS ONE Stop: 05/20/19 16:03 Last Infusion: 05/20/19 18:45 Dose: 0 mls/hr Documented by: Admin: 05/20/19 15:16 Dose: 1,000 mls/hr Documented by: CHRISTA Sodium Chloride (Normal Saline 0.9%) 1,000 mls @ 1,000 mls/hr IV BOLUS ONE Stop: 05/20/19 16:14 Last Admin: 05/20/19 18:22 Dose: Not Given Documented by: CHRISTA Ketorolac Tromethamine (Toradol) 15 mg IV NOW ONE Stop: 05/20/19 18:34 Last Admin: 05/20/19 18:40 Dose: 15 mg Documented by: VIN Ondansetron HCl (Zofran) 4 mg IV NOW ONE Stop: 05/20/19 15:05 Last Admin: 05/20/19 15:16 Dose: 4 mg Documented by: CHRISTA Pantoprazole Sodium (Protonix) 40 mg IV NOW ONE Stop: 05/20/19 15:16 Last Admin: 05/20/19 15:22 Dose: 40 mg Documented by: CHRISTA Vital Signs Vital signs: Vital Signs - 8 hr 05/20/19 14:56 05/20/19 15:15 05/20/19 15:35 Temperature 97.8 F Pulse Rate 45 L 43 L 43 L Respiratory Rate 24 18 9 L Blood Pressure 104/72 Blood Pressure [Left Arm] 194/93 H 205/102 H Pulse Oximetry 100 100 98 05/20/19 16:48 05/20/19 17:35 05/20/19 18:20 Temperature Pulse Rate 76 74 76 Respiratory Rate 14 17 16 Blood Pressure Blood Pressure [Left Arm] 101/80 116/82 129/88 Pulse Oximetry 99 100 98 05/20/19 18:30 05/20/19 19:11 Temperature 98.4 F Pulse Rate 72 76 Respiratory Rate 20 14 Blood Pressure 131/87 Blood Pressure [Left Arm] 129/88 Pulse Oximetry 99 100 MDM - Abdominal Pain Lab Data Attestation: I reviewed the patient's lab results. Result diagrams: 05/20/19 15:31 05/20/19 15:31 Labs: Lab Results 05/20/19 05/20/19 05/20/19 Range/Units 15:31 15:31 15:31 WBC 5.6 (4.5-11.0) X10^3/uL RBC 4.94 (4.5-5.9) X10^6/uL Hgb 16.6 (13.5-17.5) g/dL Hct 48.0 (41-53) % MCV 97.0 (80-100) fL MCH 33.7 (26-34) PG MCHC 34.7 (30-36) % RDW 13.6 (11.6-14.8) % Plt Count 155 (150-400) X10^3/uL Neut % (Auto) 81.1 H (50-75) % Lymph % (Auto) 10.6 L (25-40) % Bowie % (Auto) 7.7 (3-14) % Eos % (Auto) 0.1 L (2-4) % Baso % (Auto) 0.5 (0-2) % Neut # (Auto) 4500 (6064-0616) /uL Lymph # (Auto) 600 L (7168-4819) /uL Bowie # (Auto) 400 (0-900) /uL Eos # (Auto) 0 (0-450) /uL Baso # (Auto) 0 (0-100) /uL PT 11.8 (10.1-12.7) SECONDS INR 1.0 (0.9-1.3) APTT 31 D (26.4-36.2) SECONDS Sodium 139 (137-145) mmol/L Potassium 3.7 (3.4-5.1) mmol/L Chloride 103 (98-107) mmol/L Carbon Dioxide 25 (22-32) mmol/L BUN 13 (9-20) mg/dL Creatinine 0.70 (0.66-1.25) mg/dL Estimated GFR > 60.0 (>60) mL/min BUN/Creatinine Ratio 18.6 (6-22) Glucose 230 H (80-110) mg/dL Lactate (0.7-2.1) mmol/L Calcium 9.4 (8.4-10.2) mg/dL Total Bilirubin 2.3 H (0.2-1.3) mg/dL AST 480 H (17-59) IU/L ALT 443 H (21-72) IU/L Alkaline Phosphatase 130 H (38-126) U/L Total Protein 7.9 (6.3-8.2) g/dL Albumin 4.1 (3.5-5.0) g/dL Globulin 3.8 (1.7-4.1) g/dL Albumin/Globulin Ratio 1.1 (1.0-2.8) Lipase 27 (23-300) U/L Urine RBC (0-5/HPF) Urine WBC (0-5/HPF) Urine Bacteria (None) Ur Culture Indicated? Micro UA Comment 05/20/19 05/20/19 Range/Units 15:31 16:00 WBC (4.5-11.0) X10^3/uL RBC (4.5-5.9) X10^6/uL Hgb (13.5-17.5) g/dL Hct (41-53) % MCV (80-100) fL MCH (26-34) PG MCHC (30-36) % RDW (11.6-14.8) % Plt Count (150-400) X10^3/uL Neut % (Auto) (50-75) % Lymph % (Auto) (25-40) % Bowie % (Auto) (3-14) % Eos % (Auto) (2-4) % Baso % (Auto) (0-2) % Neut # (Auto) (7969-0485) /uL Lymph # (Auto) (3190-6037) /uL Bowie # (Auto) (0-900) /uL Eos # (Auto) (0-450) /uL Baso # (Auto) (0-100) /uL PT (10.1-12.7) SECONDS INR (0.9-1.3) APTT (26.4-36.2) SECONDS Sodium (137-145) mmol/L Potassium (3.4-5.1) mmol/L Chloride (98-107) mmol/L Carbon Dioxide (22-32) mmol/L BUN (9-20) mg/dL Creatinine (0.66-1.25) mg/dL Estimated GFR (>60) mL/min BUN/Creatinine Ratio (6-22) Glucose (80-110) mg/dL Lactate 2.5 H (0.7-2.1) mmol/L Calcium (8.4-10.2) mg/dL Total Bilirubin (0.2-1.3) mg/dL AST (17-59) IU/L ALT (21-72) IU/L Alkaline Phosphatase (38-126) U/L Total Protein (6.3-8.2) g/dL Albumin (3.5-5.0) g/dL Globulin (1.7-4.1) g/dL Albumin/Globulin Ratio (1.0-2.8) Lipase (23-300) U/L Urine RBC None seen (0-5/HPF) Urine WBC None seen (0-5/HPF) Urine Bacteria None seen (None) Ur Culture Indicated? Cult not indicated Micro UA Comment Microscopic normal Point of care testing: Urine Dip Bedside Urine Glucose 250 mg/dl Bedside Urine Bilirubin - Negative Bedside Urine Ketone +++ 80 Urine Specific Gay 1.015 Bedside Urine Occult Blood - Negative Bedside Urine pH 7.0 Bedside Urine Protein +/- 15 Bedside Urine Urobilinogen +/- 1mg Bedside Urine Nitrite - Negative Bedside Urine Leukocytes - Negative Esterase Imaging Data CT scan - abdomen: Radiologist's impression: PROCEDURE: CT ABDOMEN PELVIS W CON INDICATIONS: severe pain TECHNIQUE: After the administration of intravenous contrast, 5 mm thick sections acquired from the diaphragm to the symphysis. 5 mm coronal and sagittal reformats were acquired. For radiation dose reduction, the following was used: automated exposure control, adjustment of mA and/or kV according to patient size. COMPARISON: [facility], US, US ABDOMEN LIMITED, 03/16/2019, 14:32. [facility], CT, CT-IVP, 11/13/2009, 11:10. [facility], CT, CT ABDOMEN PELVIS W CON, 03/16/2019, 13:21. [facility], CT, ABDOMEN/PELVIS WITH CONTRAST, 11/14/2016, 14:59. [facility], CT, CT ABDOMEN PELVIS W CON, 04/22/2019, 20:45. FINDINGS: Image quality: Excellent. ABDOMEN: Lung bases: Lung bases are clear. Heart size is normal. Solid organs: Liver is normal in size and enhancement. Dense calcification can be seen involving the right liver dome. Gallbladder is partially collapsed at the time of this study. Biliary system is non dilated. Pancreas enhances normally. Spleen is normal in size and enhancement. No adrenal nodules. Kidneys demonstrate normal size and enhancement, without hydronephrosis. A simple appearing cyst measuring water density and 1 cm can be seen inferior pole of the right kidney laterally. Peritoneum and bowel: Bowel malrotation is seen, with cecum to left to the midline. The superior mesenteric vein is seen to the left of the superior mesenteric artery (reversal from the normal anatomy). The colon is seen on the left side of the abdomen and demonstrates generalized inflammation. Mild surrounding inflammatory changes are seen. The small bowel loops are not dilated. There is seen on the right side of the abdomen. There are a few distal loops of small bowel demonstrate formed stool within. No free air or significant free fluid can be seen. A few distal colonic diverticula can be seen. Nodes and vessels: No retroperitoneal or mesenteric adenopathy by size c riteria. Aorta and inferior vena cava are normal in size. Atherosclerotic calcification is noted. Miscellaneous: A mild periumbilical hernia is seen, containing fat. PELVIS: Genitourinary: Bladder wall thickness is normal. There is heterogeneity and increased enhancement seen involving the lateral right prostate. Miscellaneous: No inguinal hernias or adenopathy. Bones: No suspicious bony lesions. No vertebral body compression fractures. There are degenerative changes are seen, which are most prominent involving lower lumbar spine. IMPRESSION: Generalized colonic wall thickening can be seen with mild surrounding inflammatory change. This is attributed to nonspecific colitis. Please correlate with potential infectious inflammatory causes. A few distal small bowel loops demonstrate formed stool, without dilatation. This is can be seen in patients with stagnant small bowel contents. Bowel malrotation again noted. Abnormal enhancement and heterogeneous lateral aspect of prostate. Prostate mass is suspected. If not already done, please consider a urologic consultation. A dedicated prostate MRI may also be helpful for further evaluation (assuming that there is no contraindication). Incidental note is made of: Fat-containing periumbilical hernia Liver dome calcification, which demonstrates a benign appearance. Simple appearing right renal cyst Lower lumbar spine degenerative change Diverticulosis is seen, without findings of active diverticulitis. Dictated by: Adrian Segovia M.D. on 05/20/2019 at 15:38 ECG Data Attestation: I personally reviewed and interpreted this ECG as follows: Prior ECG tracings: available for review Interpretation: Sinus bradycardia rate [address] changes or T-wave in. MDM Narrative Medical decision making narrative: Patient is having once a month episodes of severe abdominal pain. CT does show colitis every noted to be elevated they have been elevated in the past he has had ultrasound of his right quadrant which are essentially negative. He has no pain in his right upper quadrant. Bilirubin is 2.3 not any higher than it has been. He has an appointment with his PCP tomorrow. We discussed admission versus going home. Patient states that once his pain is under control he has pain medicine and nausea medication at home to keep this under control. At this time he is electing to go home. I did recommend colonoscopy in GI consultation. At this time unclear etiology of recurrent severe abdominal discomfort. Discharge Plan Departure Patient Disposition: Home Clinical Impression: Elevated liver enzymes Abdominal pain Qualifiers: Abdominal location: left lower quadrant Qualified Code(s): R10.32 - Left lower quadrant pain Discharge Date/Time: 05/20/19 19:11 Instructions: DI for Abdominal Pain-Adult Activity Restrictions/Additional Instructions: *You have been diagnosed with abdominal pain *What to do: Her liver enzymes are again to be noted to be slightly elevated. However you have no pain at your liver. At this time no indication for antibiotics *Continue to take medications as directed *Follow up with your primary care provider tomorrow as previously scheduled *Return to ER if you should have increased abdominal pain inability tolerate fluids or any new, worsening or concerning symptoms Prescriptions: No Action aspirin 81 MG tablet,delayed release (DR/EC) 81 mg PO QDAY Qty: 0 RF: 0 simvastatin 40 mg tablet 40 mg PO QDAY Qty: 90 RF: 3 clopidogrel [Plavix] 75 mg tablet 75 mg PO QDAY Qty: 90 RF: 3 metoprolol tartrate 50 mg tablet 50 mg PO BID Qty: 60 RF: 3 ondansetron [Zofran ODT] 4 mg tablet,disintegrating 4 mg Sublingual Q6HP PRNQty: 20 RF: 1 cyclobenzaprine 5 mg tablet 5 mg PO TID PRNRF: 0 budesonide 3 mg capsule,delayed,extend.release 6 mg PO QAM Qty: 60 RF: 3 morphine 20 mg/5 mL (4 mg/mL) solution See Rx Instructions .ROUTE .COMPLEX PRN (Reason: severe pain) Qty: 100 RF: 0 oxycodone 5 mg tablet See Rx Instructions PO Q4HP PRN (Reason: pain) Qty: 360 RF: 0 Referrals: Khang Vasques MD [Primary Care Provider] -
[2019-05-20] MEDS: PANTOPRAZOLE 40 MG VIAL IV (15:22)
[2019-05-20] MEDS: HYDROMORPHONE 1 MG INJ IV ×2 (15:22→18:40)
[2019-05-20 15:46] LABS: Add Manual Diff / Slide Review NO; Basophils Absolute Auto 0 /uL (0-100); Basophils Percent Auto 0.5 % (0-2); Eosinophils Absolute Auto 0 /uL (0-450); Eosinophils Percent Auto 0.1 % (2-4); Hemoglobin 16.6 g/dL (13.5-17.5); Lymphocytes Absolute Auto 600 /uL (1100-4500); Lymphocytes Percent Auto 10.6 % (25-40); Mean Corpuscular HGB Conc 34.7 % (30-36); Mean Corpuscular Hemoglobin 33.7 PG (26-34); Monocytes Absolute Auto 400 /uL (0-900); Monocytes Percent Auto 7.7 % (3-14); Neutrophils Absolute Auto 4500 /uL (1500-7000); Neutrophils Percent Auto 81.1 % (50-75); Platelet Count 155 X10^3/uL (150-400); Red Blood Cell Count 4.94 X10^6/uL (4.5-5.9); Red Cell Distribution Width 13.6 % (11.6-14.8); White Blood Cell Count 5.6 X10^3/uL (4.5-11.0)
[2019-05-20 15:52] LABS: Prothrombin Time 11.8 SECONDS (10.1-12.7)
[2019-05-20 15:54] LABS: PTT Partial Thromboplastin Tim 31 SECONDS (26.4-36.2)
[2019-05-20 15:55] LABS: Alanine Aminotransferase 443 IU/L (21-72); Albumin 4.1 g/dL (3.5-5.0); Albumin Globulin Ratio 1.1 (1.0-2.8); Alkaline Phosphatase 130 U/L (38-126); Aspartate Aminotransferase 480 IU/L (17-59); BUN Creatinine Ratio 18.6 (6-22); Bilirubin Total 2.3 mg/dL (0.2-1.3); Blood Urea Nitrogen 13 mg/dL (9-20); Calcium 9.4 mg/dL (8.4-10.2); Carbon Dioxide 25 mmol/L (22-32); Chloride 103 mmol/L (98-107); Estimated Glomerular Filt Rate > 60.0 mL/min (>60); Globulin 3.8 g/dL (1.7-4.1); Glucose 230 mg/dL (80-110); HEMOLYSIS < 15 (0-50); Lipase 27 U/L (23-300); Potassium 3.7 mmol/L (3.4-5.1); Sodium 139 mmol/L (137-145); Total Protein 7.9 g/dL (6.3-8.2)
[2019-05-20 15:56] LABS: Lactate (Lactic Acid) 2.5 mmol/L (0.7-2.1)
[2019-05-20] MEDS: HYDROMORPHONE 1 MG INJ 2 MG IV (15:58)
[2019-05-20 16:22] LABS: Bacteria Urine None Seen; RBC Urine None Seen (0-5/HPF); WBC Urine None Seen (0-5/HPF)
[2019-05-20 16:30] LABS: Culture Indicated Urine Cult Not Indicated; Urine Comments Microscopic Normal
[2019-05-20 17:38] LABS: Reflexed Lactate in 2 Hours Y
[2019-05-20] MEDS: KETOROLAC 60 MG/2 ML VIAL 15 MG IV (18:40)
--- NOTE | 2019-05-20 19:13 | CM.SWNOTE ---
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 She reported that although she has chronic suicidal thoughts, these are worse and I don't feel safe in my own brain. Pt stated that there has been increased tension at home with her mother and feels that Satan is pushing her to fight. Pt reported having storng religions identificaiotn and feels that it is Satan not G-d who is causing her to fight with her mother. Precipitating Event: Pt reported that she has not taken her medications since Tuesday. She became overwhelmed with her medications and felt they were too much to handle. When her mother offered to help, she became angry and just stopped her medications. Pt stated today, I let pride get in my way. In addition to this most recent event, pt reported that her mother is dealing with health issues, her sister has been spending more time at home and her father in November. Current Behavioral Health Providers: Pt reported that she sees Dr Copeland with [facility] and Margarita Millard who is in private practice in [place]. Pt reported that she had been in a DBT group with her therapist,ama delgado is now just seeing her individually as the group was too much to handle regarding transportation and the amount of reading due to some cognitve challenges related to the anoxic brain injury. Psychiatric Hospitalizations: Pt reported that she was hospitalized 10/2018 at [facility]. She found this to be helpful. She again feels the need to be admitted to an inpatient facility. Substance Abuse History: Pt denied any use of either alcohol or drugs. Mental Status: Orientation: Pt is A/O. Affect: appropriate, sad Mood: depressed Thought Content: patient has had AH. SHe denied any current, specific voices, but said there is a feeling of Satan. Thought process: Pt's speech is clear, goal directed, but at times slow and delayed. Insight/judgment: faif/good Memory: appears intact, but was not tested Behavior: Pt was calm, and very cooperative SI/HI: no HI risk. Pt reported suicidal ideaiton. Today when mother was cutting something in the kitchen, pt became worried and told her mother to keep sharp objects away from her. She does not have a specific plan, but feels as though she cannot trust herself to remain safe. Plan: Bed search Discharge Planning/Care Management ED Crisis Response Assessment Start: 05/20/19 19:03 Freq: Status: Active Protocol: Document 05/20/19 19:03 (Rec: 05/20/19 19:12 [id number]) ED Crisis Response Assessment GARBAGE TRUCK DRIVER Assessment Type Risk of Suicide Reason for GARBAGE TRUCK DRIVER Referral Pt came to the Emergency department due to suicidal ideaiton without a clear plan, but unable to contract for safety. She said I don't feel safe in my own brain. Referred by ED staff Presenting Problem Pt is a 36 yo female with a hx of anxiety, depression and previous psychiatric hospitalizations. According to recent note from pt's psychiatrist, Dr Copeland, ... Debbie continues to suffer form significant depressive and anxiety symptoms that have worsened in recent weeks. With the recent passing of her father, the stress on the patient and her family are heightened more than they would be normally. 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
--- NOTE | 2019-05-20 19:31 | CM.SWNOTE ---
Bed Search: Pt is not medically clear at this time,b ut [employer] O[employer]ATOR called both [facility] and [facility] (pt's preference) Info to be faxed to [facility], once medically clear [phone]. They do not have beds today,b ut were ok with info being faxed. [facility] does not have beds and said to fax in the AM after calling. From previous history with this pt, [employer] PRESS OPERATOR learned that only full standing hospitals would consider this pt. due to complex medical history.
== END 2019-05-20 19:11 | disposition home or self-care (01) ==
PROVIDERS: Emergency Provider Emergency Medicine; PCP Internal Medicine
DX: R94.5 Abnormal results of liver function studies (principal); R10.32 Left lower quadrant pain
CPT/HCPCS: 36591; 74177; 80053; 81003; 81015; 83605; 83690; 85025; 85610; 85730; 93005; 93010; 96361; 96374; 96375; 96376; 99284; 99285; C9113; J1170; J1885; J2405; Q9967

== ENCOUNTER 2019-06-01 11:06 | Inpatient (IN) | payer OTHER, SELFPAY ==
[2019-06-01] VITALS (10 sets, daily range): BP systolic 133–205; BP diastolic 80–99; PULSE 45–80; RESP 10–18; TEMP 36.7–37.5; O2SAT 97–100; BMI 20.9
--- NOTE | 2019-06-01 11:23 | ED.ABDPAIN ---
HPI - Abdominal Pain General Chief Complaint: Nausea/Vomiting/Diarrhea Stated Complaint: pain,vomiting Time Seen by Provider: 06/01/19 11:11 Source: patient and family Mode of arrival: Ambulatory Limitations: no limitations History of Present Illness HPI narrative: 63-year-old male, former smoker presents with his significant other and a chief complaint of severe episodic lower abdominal pain with multiple episodes of vomiting since yesterday. He denies any alcohol or street drugs but does use marijuana. This is his 4th visit for similar circumstances the summer and he has had multiple CT scans showing a gradually improving colitis. He has been referred to GI and was there in the past few days for the initial consult. He has had no fever or chills. He did have 2 episodes of AFib yesterday that resolved without any specific therapy. He denies any chest pain shortness of breath and is not dizzy nor weak or lightheaded. MD complaint: abdominal pain Onset (ago): day(s) Pain Consistency: intermittent Location: diffuse Severity: severe Quality: cramping and stabbing Radiation: none Migration to: no migration Relieving factors: nothing Exacerbating factors: movement Associated symptoms: nausea and vomiting Related Data Home Medications Medication Instructions Recorded Confirmed cyclobenzaprine 5 mg tablet 5 mg PO TID PRN tab 03/20/19 06/01/19 ibuprofen 200 mg tablet 200 mg PO BID tab 05/21/19 06/01/19 clopidogrel [Plavix] 75 mg PO DAILY 06/01/19 06/01/19 metoprolol tartrate 50 mg PO BID 06/01/19 06/01/19 ondansetron 4 mg PO Q6H PRN 06/01/19 06/01/19 oxycodone 5 - 10 mg PO Q4H PRN 06/01/19 06/01/19 simvastatin 40 mg PO DAILY 06/01/19 06/01/19 Previous Rx's Medication Instructions Recorded budesonide 3 mg 6 mg PO QAM #60 each 03/20/19 capsule,delayed,extended release morphine 20 mg/5 mL (4 mg/mL) oral See Rx Instructions .ROUTE 03/20/19 solution .COMPLEX PRN #100 ml lisinopril 20 mg tablet 20 mg PO DAILY #30 tab 05/21/19 Allergies Allergy/AdvReac Type Severity Reaction Status Date / Time No Known Drug Allergies Allergy Verified 05/21/19 09:35 Review of Systems Constitutional Constitutional: Denies chills, Denies fatigue, Denies fever(s), Denies frequent falls, Denies lethargy and Denies weakness Eyes Eyes: Denies change in vision, Denies eye discharge, Denies irritation and Denies loss of vision ENT Ears, Nose, Mouth, and Throat: Denies change in voice, Denies dizziness, Denies neck pain, Denies sore throat and Denies throat swelling Cardiovascular Cardiovascular: Denies chest pain, Denies irregular heart rhythm, Denies lightheadedness, Denies palpitations, Denies dyspnea, Denies dyspnea on exertion and Denies orthopnea Respiratory Respiratory: Denies cough, Denies dyspnea, Denies dyspnea on exertion and Denies wheezing Gastrointestinal Gastrointestinal: Reports abdominal pain, Denies change in bowel habits, Denies diarrhea, Reports nausea and Reports vomiting Genitourinary Genitourinary: Denies hematuria, Denies flank pain, Denies urinary incontinence and Denies urinary urgency Musculoskeletal Musculoskeletal: Denies back pain, Denies muscle weakness, Denies neck pain, Denies numbness and Denies tingling Integumentary/Breasts Skin/Breast: Denies pruritus, Denies erythema, Denies rash and Denies wounds Neurologic Neurologic: Denies behavioral changes, Denies confusion, Denies dizziness, Denies frequent falls, Denies loss of vision, Denies numbness, Denies tingling and Denies weakness Psychiatric Psychiatric: Denies anxiety, Denies behavioral changes, Denies confusion, Denies depression, Denies homicidal ideation and Denies suicidal ideation Endocrine Endocrine: Denies fatigue, Denies flushing and Denies palpitations Hematologic/Lymphatic Hematologic/Lymphatic: Denies easy bruising Allergic/Immunologic Allergic/Immunologic: Denies urticaria, Denies throat swelling and Denies wheezing PFSH Medical History Cardiac arrhythmia (Chronic) Chronic hepatitis (Chronic) Coronary artery disease involving [place] coronary artery of [place] heart without angina pectoris (Chronic) Diverticular disease (Chronic) Diverticulosis of large intestine (Chronic 03/31/12) Essential hypertension (Chronic) Hepatitis C (Chronic) Kidney stones (Resolved) Mixed hyperlipidemia (Chronic) Surgical History History of angioplasty (~12/2006) Hx of inguinal hernia surgery (Resolved ~09/20/08) Hx of inguinal hernia surgery (Resolved ~03/07/14) Status post laminectomy Social History marital status: unmarried,single number of children: 3 household members: none lives independently: Yes caregiver/support person: No housing: house pets and animals: No education level: high school (11th grade) occupational status: 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 Well-nourished, well-developed patient, in obvious distress, clutching his abdomen and an emesis basin HEAD: Atraumatic. Normocephalic. EYES: Pupils equal round and reactive. Extraocular motions intact. No scleral icterus. No injection or drainage. ENT: Nose without bleeding, purulent drainage. Throat without erythema, tonsillar hypertrophy or exudate. Airway patent. NECK: Trachea midline. Non tender CARDIOVASCULAR: Regular rate and rhythm without murmurs, gallops, or rubs. RESPIRATORY: Clear to auscultation. Breath sounds equal bilaterally. No wheezes, rales, or rhonchi. GASTROINTESTINAL: Abdomen soft, generalized tenderness, nondistended. Decreased bowel sounds EXTREMITIES: No edema or joint tenderness. BACK: Nontender without deformity or crepitance. No flank tenderness. NEURO: AOx3. SKIN: No rash or erythema of visible areas Initial Vital Signs Initial Vital Signs: Vital Signs Temperature 98.1 F 06/01/19 11:23 Pulse Rate 60 06/01/19 11:23 Respiratory Rate 17 06/01/19 11:23 Blood Pressure 188/99 H 06/01/19 11:23 Pulse Oximetry 100 06/01/19 11:23 Course Orders Ordered: ED Orders 06/01/19 11:24 XR acute abdomen series Stat 06/01/19 11:35 C-Reactive Protein Quant Stat Complete Blood Count AUTO DIFF Stat Comprehensive Metabolic Panel Stat Erythrocyte Sedimentation Rate Stat Lipase Stat Partial Thromboplastin Time Stat Prostate Specific Antigen Stat Prothrombin Time INR Stat Troponin & CK Cardiac Panel Stat 06/01/19 14:30 CT abdomen pelvis w con Stat Sodium Chloride (Normal Saline 0.9%) 1,000 mls @ 150 mls/hr IV CONT KAITLIN Last Infusion: 06/01/19 18:09 Dose: 150 mls/hr Documented by: Admin: 06/01/19 13:49 Dose: 150 mls/hr Documented by: NAV Ondansetron HCl (Zofran) 4 mg IV Q4HR PRN PRN Reason: Nausea And Vomiting Last Admin: 06/01/19 11:50 Dose: 4 mg Documented by: NAV Discontinued Medications Hydromorphone HCl (Dilaudid) 1 mg IV NOW ONE Stop: 06/01/19 11:41 Last Admin: 06/01/19 11:50 Dose: 1 mg Documented by: NAV Hydromorphone HCl (Dilaudid) 1 mg IV NOW ONE Stop: 06/01/19 13:39 Last Admin: 06/01/19 13:43 Dose: 1 mg Documented by: NAV Hydromorphone HCl (Dilaudid) 0.5 mg IV NOW ONE Stop: 06/01/19 17:45 Last Admin: 06/01/19 17:47 Dose: 0.5 mg Documented by: SKYLERONER Sodium Chloride (Normal Saline 0.9%) 1,000 mls @ 1,000 mls/hr IV BOLUS ONE Stop: 06/01/19 12:22 Last Infusion: 06/01/19 13:42 Dose: 0 mls/hr Documented by: Admin: 06/01/19 11:50 Dose: 1,000 mls/hr Documented by: NAV Consultations Consultation #1: discussion with GI at [facility], same provider whom saw patient earlier in the week. No significant thoughts or recommendations moving forward other than pain control and likely endoscopy. Vital Signs Vital signs: Vital Signs - 8 hr 06/01/19 11:23 06/01/19 14:41 06/01/19 15:00 Temperature 98.1 F 98.2 F Pulse Rate 60 46 L Respiratory Rate 17 10 L Blood Pressure 188/99 H Blood Pressure [Right Arm] 188/91 H Pulse Oximetry 100 100 06/01/19 15:32 06/01/19 16:34 06/01/19 17:33 Temperature Pulse Rate 45 L 46 L 62 Respiratory Rate 12 14 12 Blood Pressure 205/98 H Blood Pressure [Right Arm] 205/93 H 181/99 H Pulse Oximetry 100 100 100 MDM - Abdominal Pain Lab Data Result diagrams: 06/01/19 11:35 06/01/19 11:35 Labs: Lab Results 06/01/19 06/01/19 06/01/19 Range/Units 11:35 11:35 11:35 WBC 4.6 (4.5-11.0) X10^3/uL RBC 4.71 (4.5-5.9) X10^6/uL Hgb 16.0 (13.5-17.5) g/dL Hct 45.4 (41-53) % MCV 96.3 (80-100) fL MCH 33.9 (26-34) PG MCHC 35.2 (30-36) % RDW 13.4 (11.6-14.8) % Plt Count 150 (150-400) X10^3/uL Neut % (Auto) 68.0 (50-75) % Lymph % (Auto) 19.7 L (25-40) % [place] % (Auto) 11.3 (3-14) % Eos % (Auto) 0.4 L (2-4) % Baso % (Auto) 0.6 (0-2) % Neut # (Auto) 3100 (2123-1690) /uL Lymph # (Auto) 900 L (1582-2996) /uL [place] # (Auto) 500 (0-900) /uL Eos # (Auto) 0 (0-450) /uL Baso # (Auto) 0 (0-100) /uL ESR (0-15) MM/HR PT 10.9 (10.1-12.7) SECONDS INR 1.0 (0.9-1.3) APTT 28 D (26.4-36.2) SECONDS Sodium 139 (137-145) mmol/L Potassium 3.7 (3.4-5.1) mmol/L Chloride 104 (98-107) mmol/L Carbon Dioxide 26 (22-32) mmol/L BUN 13 (9-20) mg/dL Creatinine 0.70 (0.66-1.25) mg/dL Estimated GFR > 60.0 (>60) mL/min BUN/Creatinine Ratio 18.6 (6-22) Glucose 180 H (80-110) mg/dL Calcium 9.6 (8.4-10.2) mg/dL Total Bilirubin 1.5 H (0.2-1.3) mg/dL AST 350 H (17-59) IU/L ALT 384 H (21-72) IU/L Alkaline Phosphatase 142 H (38-126) U/L Total Creatine Kinase 63 (55-170) U/L CK-MB (CK-2) TNP CK-MB (CK-2) Rel Index TNP Troponin I < 0.012 (0.01-0.034) ng/mL C-Reactive Protein (<1.0) mg/dL Total Protein 8.0 (6.3-8.2) g/dL Albumin 4.1 (3.5-5.0) g/dL Globulin 3.9 (1.7-4.1) g/dL Albumin/Globulin Ratio 1.1 (1.0-2.8) Lipase 144 (23-300) U/L Prostate Specific Ag (0.10-4.00) ng/mL 06/01/19 06/01/19 Range/Units 11:35 11:35 WBC (4.5-11.0) X10^3/uL RBC (4.5-5.9) X10^6/uL Hgb (13.5-17.5) g/dL Hct (41-53) % MCV (80-100) fL MCH (26-34) PG MCHC (30-36) % RDW (11.6-14.8) % Plt Count (150-400) X10^3/uL Neut % (Auto) (50-75) % Lymph % (Auto) (25-40) % [place] % (Auto) (3-14) % Eos % (Auto) (2-4) % Baso % (Auto) (0-2) % Neut # (Auto) (4437-2585) /uL Lymph # (Auto) (5085-7690) /uL [place] # (Auto) (0-900) /uL Eos # (Auto) (0-450) /uL Baso # (Auto) (0-100) /uL ESR 4 (0-15) MM/HR PT (10.1-12.7) SECONDS INR (0.9-1.3) APTT (26.4-36.2) SECONDS Sodium (137-145) mmol/L Potassium (3.4-5.1) mmol/L Chloride (98-107) mmol/L Carbon Dioxide (22-32) mmol/L BUN (9-20) mg/dL Creatinine (0.66-1.25) mg/dL Estimated GFR (>60) mL/min BUN/Creatinine Ratio (6-22) Glucose (80-110) mg/dL Calcium (8.4-10.2) mg/dL Total Bilirubin (0.2-1.3) mg/dL AST (17-59) IU/L ALT (21-72) IU/L Alkaline Phosphatase (38-126) U/L Total Creatine Kinase (55-170) U/L CK-MB (CK-2) CK-MB (CK-2) Rel Index Troponin I (0.01-0.034) ng/mL C-Reactive Protein < 0.5 (<1.0) mg/dL Total Protein (6.3-8.2) g/dL Albumin (3.5-5.0) g/dL Globulin (1.7-4.1) g/dL Albumin/Globulin Ratio (1.0-2.8) Lipase (23-300) U/L Prostate Specific Ag 8.39 H (0.10-4.00) ng/mL Point of care testing: Urine Dip Bedside Urine Glucose Negative Bedside Urine Bilirubin - Negative Bedside Urine Ketone +/- 5 Urine Specific Lolita 1.015 Bedside Urine Occult Blood - Negative Bedside Urine pH 8.0 Bedside Urine Protein - Negative Bedside Urine Urobilinogen - Negative Bedside Urine Nitrite - Negative Bedside Urine Leukocytes - Negative Esterase Imaging Data Abdominal x-ray: Radiologist's impression: Brennan Marmolejo 63 M [address] [address] XRay Report Signed Patient: Brennan Marmolejo CMR#: [id number] : [id number]:[id number] Age/Sex: 63 / MDate of Service: 06/01/19 Loc: ED Accession Number: [id number] Procedure: XR acute abdomen series Ordering Provider: Carlos Ledezma D.O. PROCEDURE: XR ACUTE ABDOMEN SERIES INDICATIONS: Abdominal pain, vomiting TECHNIQUE: One view chest and two views of the abdomen were acquired. COMPARISON: [facility], , ABDOMEN ACUTE SERIES, 11/14/2016, 13:49. FINDINGS: Surgical changes and devices: None. Chest: Lungs are clear. Calcified right posterior lung base granuloma. Heart size is normal. No pleural effusions. No pneumoperitoneum. Abdomen: Bowel gas pattern is normal. The mildly increased quantity of solid stool throughout the colon. No suspicious calcifications. Visualized solid organ contours appear normal. Bones: No suspicious bony lesions. IMPRESSION: 1. No acute process in the abdomen. 2. Mildly increased quantity of solid stool suggests obstipation. 3. No acute cardiopulmonary disease. Dictated by: Michaela Bueno M.D. on 06/01/2019 at 12:25 Approved by: Michaela Bueno M.D. on 06/01/2019 at 12:27 MDM Narrative Medical decision making narrative: extensive evaluation without obvious need for intervention or specific reversible condition. Labs and imaging is reassuring. Bowel obstruction and urinary retention were considered, but ruled out. Ongoing concerns include chronic opioid pain syndrome and marijuana hyperemesis syndrome among others. Patient has required multiple doses of IV pain meds to help control his pain. He will require hospitalization for ongoing evaluation and stabilization of his condition. Dr. Torres will accept. Discharge Plan Departure Patient Disposition: Admitted as Observation Clinical Impression: Intractable abdominal pain Discharge Date/Time: 06/01/19 18:10 Admit Date/Time: 06/01/19 17:35 Admit Provider: Niki Torres
[2019-06-01 11:45] LABS: Add Manual Diff / Slide Review NO; Basophils Absolute Auto 0 /uL (0-100); Basophils Percent Auto 0.6 % (0-2); Eosinophils Absolute Auto 0 /uL (0-450); Eosinophils Percent Auto 0.4 % (2-4); Hematocrit 45.4 % (41-53); Lymphocytes Absolute Auto 900 /uL (1100-4500); Lymphocytes Percent Auto 19.7 % (25-40); Mean Corpuscular HGB Conc 35.2 % (30-36); Mean Corpuscular Hemoglobin 33.9 PG (26-34); Mean Corpuscular Volume 96.3 fL (80-100); Monocytes Absolute Auto 500 /uL (0-900); Monocytes Percent Auto 11.3 % (3-14); Neutrophils Absolute Auto 3100 /uL (1500-7000); Platelet Count 150 X10^3/uL (150-400); Red Blood Cell Count 4.71 X10^6/uL (4.5-5.9); Red Cell Distribution Width 13.4 % (11.6-14.8); White Blood Cell Count 4.6 X10^3/uL (4.5-11.0)
[2019-06-01 11:50] LABS: Prothrombin Time 10.9 SECONDS (10.1-12.7)
[2019-06-01] MEDS: SODIUM CHLORIDE 0.9% 1,000 ML 1000 ML IV (11:50)
[2019-06-01] MEDS: HYDROMORPHONE 1 MG INJ IV ×3 (11:50→22:36)
[2019-06-01] MEDS: ONDANSETRON 4 MG/2 ML INJ IV ×2 (11:50→20:41)
[2019-06-01 11:53] LABS: PTT Partial Thromboplastin Tim 28 SECONDS (26.4-36.2)
[2019-06-01 12:01] LABS: Alanine Aminotransferase 384 IU/L (21-72); Albumin 4.1 g/dL (3.5-5.0); Albumin Globulin Ratio 1.1 (1.0-2.8); Alkaline Phosphatase 142 U/L (38-126); Aspartate Aminotransferase 350 IU/L (17-59); BUN Creatinine Ratio 18.6 (6-22); Bilirubin Total 1.5 mg/dL (0.2-1.3); Blood Urea Nitrogen 13 mg/dL (9-20); Calcium 9.6 mg/dL (8.4-10.2); Carbon Dioxide 26 mmol/L (22-32); Chloride 104 mmol/L (98-107); Creatine Kinase 63 U/L (55-170); Estimated Glomerular Filt Rate > 60.0 mL/min (>60); Globulin 3.9 g/dL (1.7-4.1); Glucose 180 mg/dL (80-110); HEMOLYSIS 19 (0-50); Lipase 144 U/L (23-300); Potassium 3.7 mmol/L (3.4-5.1); Sodium 139 mmol/L (137-145)
[2019-06-01 12:12] LABS: Troponin I < 0.012 ng/mL (0.01-0.034)
[2019-06-01] MEDS: SODIUM CHLORIDE 0.9% 1,000 ML 150 ML IV (13:49)
--- NOTE | 2019-06-01 14:30 | DI.CT.S_ITS ---
PROCEDURE: CT ABDOMEN PELVIS W CON INDICATIONS: severe abdmominal pain, worsening, per PCP TECHNIQUE: After the administration of intravenous contrast, 5 mm thick sections acquired from the diaphragm to the symphysis. 5 mm coronal and sagittal reformats were acquired. For radiation dose reduction, the following was used: automated exposure control, adjustment of mA and/or kV according to patient size. COMPARISON: [facility], CR, XR ACUTE ABDOMEN SERIES, 06/01/2019, 11:22. [facility], US, US ABDOMEN LIMITED, 03/16/2019, 14:32. [facility], CT, CT ABDOMEN PELVIS W CON, 03/16/2019, 13:21. [facility], CT, CT ABDOMEN PELVIS W CON, 04/22/2019, 20:45. [facility], CT, CT ABDOMEN PELVIS W CON, 05/20/2019, 16:06. FINDINGS: Image quality: Diagnostic ABDOMEN: Lung bases: Lung bases are clear. Heart size is normal. Solid organs: Liver is normal in size and enhancement. At the superior liver dome, there is again seen chronic, benign-appearing calcification. Gallbladder is largely collapsed at the time of this study. Biliary system is non dilated. Pancreas enhances normally. Spleen is normal in size and enhancement. No adrenal nodules. Kidneys demonstrate normal size and enhancement, without hydronephrosis. Peritoneum and bowel: Bowel loops demonstrate normal wall thickness and caliber. No free fluid or air. A moderate amount of stool is seen within the colon. Bowel malrotation can be seen, with the majority of the colon seen on the left side at the majority of small bowel seen on the right side. The SMV is abnormally located to the left of the SMA. Diverticulosis is seen, without findings of active diverticulitis. Nodes and vessels: No retroperitoneal or mesenteric adenopathy by size criteria. Aorta and inferior vena cava are normal in size. Miscellaneous: A mild periumbilical hernia is seen, containing fat. PELVIS: Genitourinary: Bladder wall thickness is normal. There is a focal hyperenhancing mass in the posterolateral aspect of the right prostate gland. Miscellaneous: No inguinal hernias or adenopathy. Bones: No suspicious bony lesions. No vertebral body compression fractures. Degenerative changes are seen, particularly involving the lumbar spine. Mild levoconvex scoliotic curvature is noted. IMPRESSION: There is a moderate amount of stool seen within the colon. Please correlate with an underlying history of constipation. Bowel malrotation. Incidental note is made of: Benign appearing liver calcification Fat-containing umbilical hernia Right prostate enhancing lesion Lumbar spine degenerative change Diverticulosis is seen, without findings of active diverticulitis. Dictated by: Adrian Segovia M.D. on 06/01/2019 at 15:21 Approved by: Adrian Segovia M.D. on 06/01/2019 at 15:25
[2019-06-01 15:10] LABS: C-Reactive Protein Quant < 0.5 mg/dL (<1.0)
[2019-06-01 15:17] LABS: Erythrocyte Sedimentation Rate 4 MM/HR (0-15)
[2019-06-01 15:37] LABS: Prostate Specific Antigen 8.39 ng/mL (0.10-4.00)
[2019-06-01] MEDS: HYDROMORPHONE 0.5 MG INJ IV (17:47)
[2019-06-01] MEDS: OXYCODONE IR 5 MG TABLET PO (20:12)
[2019-06-01] MEDS: SODIUM CHLORIDE 0.45% 1,000 ML 125 ML IV (20:12)
[2019-06-01] MEDS: SENNOSIDES 8.6 MG TABLET 17.2 MG PO (20:13)
[2019-06-01] MEDS: BISACODYL 10 MG SUPP PR (20:13)
[2019-06-01] MEDS: METOPROLOL IR 50 MG TABLET PO (20:14)
--- NOTE | 2019-06-01 20:24 | PM.HP.1 ---
History of Present Illness History of Present Illness Date Patient Seen: 06/01/19 Time Patient Seen: 18:30 Chief complaint: pain,vomiting Narrative: Patient is a 63 yo male who usually sees Dr. Vasques who has had long standing back pain on chronic narcotics presenting tonight with worsening abdominal pain, nausea and vomiting. This has been recurrent problem for him and his last visit to the ED was on 05/20. He saw [facility] earlier this weak to help figure out what is causing his pain. He tells me that he is constipated. He passes one golf ball size stool and has to help manually. He has been vomitting today. He tells me that he has had atrial fibrillation since he was a child. Has had about 3 episodes of this in the past week. Most of the time he is in sinus. He has not had any shortness of breath. He has not had fever or chills. 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 Started him on budesonide. Discussed treatment for his hepatitis C. Recommend EGD and colonoscopy as soon as can be scheduled here in [place]. Patient History Medical History Cardiac arrhythmia (Chronic) Chronic hepatitis (Chronic) Coronary artery disease involving wilton coronary artery of wilton heart without angina pectoris (Chronic) Diverticular disease (Chronic) Diverticulosis of large intestine (Chronic 03/31/12) Essential hypertension (Chronic) Hepatitis C (Chronic) Kidney stones (Resolved) Mixed hyperlipidemia (Chronic) Surgical History History of angioplasty (~12/2006) Hx of inguinal hernia surgery (Resolved ~09/20/08) Hx of inguinal hernia surgery (Resolved ~03/07/14) Status post laminectomy Social History marital status: unmarried,single number of children: 3 household members: none lives independently: Yes caregiver/support person: No housing: house pets and animals: No education level: high school (11th grade) occupational status: 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.) alcohol intake: current (1 beer 3x a week.) substance use type: does not use and marijuana (On and off.) Family & Social History Social History: household members none lives independently Yes caregiver/support person No Safety & Behavioral: Feels Safe in Current Yes Environment Been Physically Hurt or No Threatened By a Person Tobacco & Substance use: Smoking Status Former smoker alcohol intake current alcohol intake frequency a few times a week Substance Use Type marijuana Meds Home Medications and Allergies Home Medications Medication Instructions Recorded Confirmed Type budesonide 3 mg 6 mg PO QAM #60 each 03/20/19 06/01/19 Rx capsule,delayed,extended release cyclobenzaprine 5 mg tablet 5 mg PO TID PRN tab 03/20/19 06/01/19 History morphine 20 mg/5 mL (4 mg/mL) oral See Rx Instructions .ROUTE 03/20/19 06/01/19 Rx solution .COMPLEX PRN #100 ml ibuprofen 200 mg tablet 200 mg PO BID tab 05/21/19 06/01/19 History lisinopril 20 mg tablet 20 mg PO DAILY #30 tab 05/21/19 06/01/19 Rx clopidogrel [Plavix] 75 mg PO DAILY 06/01/19 06/01/19 History metoprolol tartrate 50 mg PO BID 06/01/19 06/01/19 History ondansetron 4 mg PO Q6H PRN 06/01/19 06/01/19 History oxycodone 5 - 10 mg PO Q4H PRN 06/01/19 06/01/19 History simvastatin 40 mg PO DAILY 06/01/19 06/01/19 History Allergies Allergy/AdvReac Type Severity Reaction Status Date / Time No Known Drug Allergies Allergy Verified 05/21/19 09:35 Exam Vital Signs (past 8 hours): - 06/01/19 14:41 06/01/19 15:00 06/01/19 15:32 Temperature 98.2 F Pulse Rate 46 L 45 L Respiratory Rate 10 L 12 Blood Pressure Blood Pressure [Right Arm] 188/91 H 205/93 H Pulse Oximetry 100 100 06/01/19 16:34 06/01/19 17:33 06/01/19 18:24 Temperature 99.5 F Pulse Rate 46 L 62 69 Respiratory Rate 14 12 18 Blood Pressure 205/98 H 133/80 Blood Pressure [Right Arm] 181/99 H Pulse Oximetry 100 100 99 Oxygen Delivery Method Room Air Narrative Exam Narrative: General: Well-developed, pale, thin, male, no acute distress while lying still in bed. Heart: Regular rate and rhythm, no murmurs appreciated Lungs: Clear to auscultation bilaterally, no wheezes, rales or rhonchi Abd: soft, nondistended, hyperactive bowel sounds Extremities: Warm and well perfused, no edema Objective Imaging CT scan - abdomen: Radiologist's impression: IMPRESSION: There is a moderate amount of stool seen within the colon. Please correlate with an underlying history of constipation. Bowel malrotation. Incidental note is made of: Benign appearing liver calcification Fat-containing umbilical hernia Right prostate enhancing lesion Lumbar spine degenerative change Diverticulosis is seen, without findings of active diverticulitis. Labs Result Diagrams: 06/01/19 11:35 06/01/19 11:35 Labs: Laboratory Results - last 24 hr 06/01/19 06/01/19 06/01/19 11:35 11:35 11:35 WBC 4.6 RBC 4.71 Hgb 16.0 Hct 45.4 MCV 96.3 MCH 33.9 MCHC 35.2 RDW 13.4 Plt Count 150 Neut % (Auto) 68.0 Lymph % (Auto) 19.7 L [place] % (Auto) 11.3 Eos % (Auto) 0.4 L Baso % (Auto) 0.6 Neut # (Auto) 3100 Lymph # (Auto) 900 L [place] # (Auto) 500 Eos # (Auto) 0 Baso # (Auto) 0 ESR PT 10.9 INR 1.0 APTT 28 D Sodium 139 Potassium 3.7 Chloride 104 Carbon Dioxide 26 BUN 13 Creatinine 0.70 Estimated GFR > 60.0 BUN/Creatinine Ratio 18.6 Glucose 180 H Calcium 9.6 Total Bilirubin 1.5 H AST 350 H ALT 384 H Alkaline Phosphatase 142 H Total Creatine Kinase 63 CK-MB (CK-2) TNP CK-MB (CK-2) Rel Index TNP Troponin I < 0.012 C-Reactive Protein Total Protein 8.0 Albumin 4.1 Globulin 3.9 Albumin/Globulin Ratio 1.1 Lipase 144 Prostate Specific Ag 06/01/19 06/01/19 11:35 11:35 WBC RBC Hgb Hct MCV MCH MCHC RDW Plt Count Neut % (Auto) Lymph % (Auto) [place] % (Auto) Eos % (Auto) Baso % (Auto) Neut # (Auto) Lymph # (Auto) [place] # (Auto) Eos # (Auto) Baso # (Auto) ESR 4 PT INR APTT Sodium Potassium Chloride Carbon Dioxide BUN Creatinine Estimated GFR BUN/Creatinine Ratio Glucose Calcium Total Bilirubin AST ALT Alkaline Phosphatase Total Creatine Kinase CK-MB (CK-2) CK-MB (CK-2) Rel Index Troponin I C-Reactive Protein < 0.5 Total Protein Albumin Globulin Albumin/Globulin Ratio Lipase Prostate Specific Ag 8.39 H Assessment & Plan Assessment & Plan narrative: Abdominal pain. No sign of colitis on CT this evening. Malrotation. Obstipation. Has seen GI and recommends EGD/colonoscopy. Will discuss with surgery to see if this might be able to be done Will work on getting his colon cleared out. Will try toradol to see if this gives him more pain control without worsening his constipation. Given chronic opiate use will also give IV hydromorphone which was effective in ED. Weight loss. Moderate Protein calorie malnutrition. 22 pounds in the past 2.5 months. Likely secondary to these episodes of pain and vomiting. Atrial fibrillation. continue metoprolol. Continue clopidogrel. Hypertension. Significant elevation in the ED but seems to be better controlled now. Continue home meds. Chronic back pain. Given his inability to tolerate PO meds will continue the hydromorphone which was effective in the ED. Prostate mass. PSA is elevated but not significantly so. Possibly causing obstruction. Will discuss with urology. Monitor for urinary retention. Code status: DNR DVT prophylaxis: lovenox He has failed outpatient management of this problem and requires inpatient care to manage his pain and nutrition while the etiology is found. This is going to take at least 2 midnights.
[2019-06-01] MEDS: KETOROLAC 30 MG/ML VIAL IV (21:58)
--- NOTE | 2019-06-01 22:26 | PC.ADMIT ---
[email or web address] Admission Note: The patient,Brennan Marmolejo,63 y/o, was given written information regarding hospital policies, unit procedures and contact persons. Patient's smoking status: Former smoker. Vital Signs - 8 hr 06/01/19 14:41 06/01/19 15:00 06/01/19 15:32 Temperature 98.2 F Pulse Rate 46 L 45 L Respiratory Rate 10 L 12 Blood Pressure Blood Pressure [Right Arm] 188/91 H 205/93 H Pulse Oximetry 100 100 06/01/19 16:34 06/01/19 17:33 06/01/19 18:24 Temperature 99.5 F Pulse Rate 46 L 62 69 Respiratory Rate 14 12 18 Blood Pressure 205/98 H 133/80 Blood Pressure [Right Arm] 181/99 H Pulse Oximetry 100 100 99 Pt arrived to Room 222 via stretcher at approx 1810. Able to trans independently to bed by sliding over. CPOX on sats 95-100% RA. Denied pain on admission as analgesics given prior to arrival to unit. Tele monitor connected. SCD's applied. IVF infusing per orders. Bed alarm on. Oriented to room and call system.
[2019-06-02] VITALS (7 sets, daily range): BP systolic 142–210; BP diastolic 83–109; PULSE 53–61; RESP 16–20; TEMP 36.7–37.1; O2SAT 97–100
[2019-06-02] MEDS: HYDROMORPHONE 1 MG INJ IV (01:34)
[2019-06-02] MEDS: ONDANSETRON 4 MG/2 ML INJ IV ×4 (01:38→15:39)
[2019-06-02] MEDS: SODIUM CHLORIDE 0.45% 1,000 ML 125 ML IV ×2 (04:20→13:43)
[2019-06-02] MEDS: HYDROMORPHONE 2 MG INJ IV ×5 (04:20→15:45)
[2019-06-02 05:51] LABS: Add Manual Diff / Slide Review NO; Basophils Absolute Auto 0 /uL (0-100); Basophils Percent Auto 0.3 % (0-2); Eosinophils Absolute Auto 0 /uL (0-450); Hematocrit 45.5 % (41-53); Hemoglobin 15.9 g/dL (13.5-17.5); Lymphocytes Absolute Auto 1000 /uL (1100-4500); Mean Corpuscular Hemoglobin 33.7 PG (26-34); Mean Corpuscular Volume 96.3 fL (80-100); Monocytes Absolute Auto 900 /uL (0-900); Monocytes Percent Auto 12.3 % (3-14); Neutrophils Absolute Auto 5000 /uL (1500-7000); Neutrophils Percent Auto 72.4 % (50-75); Platelet Count 153 X10^3/uL (150-400); Red Blood Cell Count 4.72 X10^6/uL (4.5-5.9); Red Cell Distribution Width 13.5 % (11.6-14.8); White Blood Cell Count 6.9 X10^3/uL (4.5-11.0)
[2019-06-02 06:03] LABS: Alanine Aminotransferase 316 IU/L (21-72); Albumin 3.8 g/dL (3.5-5.0); Albumin Globulin Ratio 1.1 (1.0-2.8); Alkaline Phosphatase 107 U/L (38-126); Aspartate Aminotransferase 243 IU/L (17-59); BUN Creatinine Ratio 16.7 (6-22); Bilirubin Total 1.5 mg/dL (0.2-1.3); Blood Urea Nitrogen 10 mg/dL (9-20); Calcium 9.2 mg/dL (8.4-10.2); Carbon Dioxide 29 mmol/L (22-32); Chloride 99 mmol/L (98-107); Estimated Glomerular Filt Rate > 60.0 mL/min (>60); Globulin 3.6 g/dL (1.7-4.1); Glucose 141 mg/dL (80-110); HEMOLYSIS < 15 (0-50); Potassium 4.3 mmol/L (3.4-5.1); Sodium 136 mmol/L (137-145); Total Protein 7.4 g/dL (6.3-8.2)
[2019-06-02 06:11] LABS: Hemoglobin A1C% w Est Avg Glu 5.9 % (4.0-6.0)
[2019-06-02] MEDS: KETOROLAC 30 MG/ML VIAL IV ×3 (06:38→17:19)
--- NOTE | 2019-06-02 06:55 | PC.NURSE ---
Pt nauseous throughout night and having 8 out of 10 abdominal pain. Pt's BP spiked to 210/109 during the night when he was having pain. Dr. Torres contacted and increased Dilaudid dosage from 1mg to 2mg q3h. Pt states it helps for only about 2.5hrs. He vomitted 150cc bile. Had 2 episodes of liquid diarrhea. 1/2NS running at 125mL/hr. SCDs on throughout night. Tele: Jose Angel, denies chest pain
[2019-06-02] MEDS: METOPROLOL IR 50 MG TABLET 25 MG PO (08:36)
[2019-06-02] MEDS: CLOPIDOGREL 75 MG TABLET PO (08:36)
[2019-06-02] MEDS: LISINOPRIL 20 MG TABLET PO (08:36)
[2019-06-02] MEDS: PANTOPRAZOLE 40 MG VIAL IV (08:38)
--- NOTE | 2019-06-02 10:21 | DI.MRI.S_ITS ---
PROCEDURE: MR ABDOMEN PELVIS [facility] INDICATIONS: prostate mass TECHNIQUE: Coronal HASTE, axial 2D FLASH in- and [id number]; axial breath-hold T2 FSE; dynamic axial VIBE during IV gadolinium administration; postgadolinium coronal VIBE or 2D FLASH with fat saturation from the hepatic dome to the iliac crests. COMPARISON: [facility], CT, CT ABDOMEN PELVIS W CON, 05/20/2019, 16:06. [facility], CT, CT ABDOMEN PELVIS W CON, 06/01/2019, 15:06. FINDINGS: Image quality: There is mild motion artifact. After patient was returned for diffusion imaging in the pelvis, there is artifact in the region of the rectum which may be due to reported history of a rectal suppository. Lung bases: No basal pleural effusions. Heart is normal in size. Solid organs: No discrete hepatic mass identified. There are foci of magnetic susceptibility in the right hepatic dome corresponding to calcifications seen on the prior CT studies. No gallstones or biliary ductal dilatation. No pancreatic duct dilatation. No peripancreatic edema or fluid collections. The kidneys demonstrate nodular cirrhosis. There is a small right renal cysts. The spleen is normal in size. No adrenal nodules. Nodes and vessels: No mesenteric or retroperitoneal lymphadenopathy by size criteria. The aorta is normal in caliber. Bowel and peritoneum: Visualized bowel loops are normal in caliber. A moderate amount of colonic stool is noted suggestive of constipation. There is colonic diverticulosis without definite acute diverticulitis. No definite intraperitoneal free fluid. Pelvis: The bladder demonstrates normal wall thickness. The prostate is mildly enlarged, measuring approximately 4.7 x 2.7 x 3.6 cm. Within the right aspect of the prostate predominantly involving the peripheral zone and centered in the mid gland, there is an oval mass measuring approximately 3.5 x 2.2 x 2.8 cm. This demonstrates intermediate to hypointense signal on T2. The mass is oval with indistinct margins. Although diffusion weighted images are limited by adjacent magnetic susceptibility artifact, there is probable restricted diffusion with hyperintense signal on DWI images and markedly hypointense signal on the ADC. There is dynamic contrast-enhancement following contrast administration. The findings are consistent with a PI-RADS 5 lesion. There is suspected extracapsular extension along the right posterolateral aspect of the prostate. Invasion of the adjacent rectal wall cannot be excluded. There is also invasion into the right seminal vesicles. Bones and soft tissues: Visualized osseous structures demonstrate no definite suspicious lesions to suggest metastatic disease. There is heterogeneous marrow signal in the pelvis compatible with hematopoietic marrow reconversion. IMPRESSION: 1. Enhancing right prostatic mass centered in the peripheral zone is consistent with a PI-RADS 5 lesion and most likely represents prostate cancer. There is extracapsular extension along the right posterior aspect of the prostate with invasion of the right seminal vesicles and suspected early invasion of the rectal wall. Dictated by: Brian Austin M.D. on 06/03/2019 at 11:11 Approved by: Brian Austin M.D. on 06/03/2019 at 11:29
--- NOTE | 2019-06-02 11:35 | P.PN_ITS ---
Subjective Subjective Date Patient Seen: 06/02/19 Time Patient Seen: 10:30 Interval history: Patient had difficulty with pain control overnight. Becomes hypertensive with increase in his pain. It's abdominal. Has had ongoing vomiting as well. However was able to keep meds down this morning with a few sips of water. Able to urinate with some effort this morning. Did pass some stool over night. Lengthy discussion with patient and friend about lack of pain control while patient was in the ED. Exam Vital Signs (past 8 hours): - 06/02/19 03:50 06/02/19 06:34 06/02/19 08:00 Temperature 98.4 F 98.7 F Pulse Rate 53 L 61 Respiratory Rate 16 16 Blood Pressure 210/109 H 153/95 H 157/97 H Pulse Oximetry 100 99 Oxygen Delivery Method Room Air Oxygen Flow Rate 0 Narrative Exam Narrative: General: Well-developed, pale, thin, male, no acute distress while lying still in bed. Heart: Regular rate and rhythm, no murmurs appreciated Lungs: Clear to auscultation bilaterally, no wheezes, rales or rhonchi Abd: soft, nondistended, hypoactive bowel sounds, diffusely tender Rectal: good spincter tone, external hemorrhoid, no stool in the vault but tender, right side of prostate is firm and enlarged not painful to palpation Extremities: Warm and well perfused, no edema Objective Labs Result Diagrams: 06/02/19 05:28 06/02/19 05:28 Labs: Laboratory Results - last 24 hr 06/01/19 06/01/19 06/01/19 11:35 11:35 11:35 WBC 4.6 RBC 4.71 Hgb 16.0 Hct 45.4 MCV 96.3 MCH 33.9 MCHC 35.2 RDW 13.4 Plt Count 150 Neut % (Auto) 68.0 Lymph % (Auto) 19.7 L [place] % (Auto) 11.3 Eos % (Auto) 0.4 L Baso % (Auto) 0.6 Neut # (Auto) 3100 Lymph # (Auto) 900 L [place] # (Auto) 500 Eos # (Auto) 0 Baso # (Auto) 0 ESR PT 10.9 INR 1.0 APTT 28 D Sodium 139 Potassium 3.7 Chloride 104 Carbon Dioxide 26 BUN 13 Creatinine 0.70 Estimated GFR > 60.0 BUN/Creatinine Ratio 18.6 Glucose 180 H Hemoglobin A1c Calcium 9.6 Total Bilirubin 1.5 H AST 350 H ALT 384 H Alkaline Phosphatase 142 H Total Creatine Kinase 63 CK-MB (CK-2) TNP CK-MB (CK-2) Rel Index TNP Troponin I < 0.012 C-Reactive Protein Total Protein 8.0 Albumin 4.1 Globulin 3.9 Albumin/Globulin Ratio 1.1 Lipase 144 Prostate Specific Ag 06/01/19 06/01/19 06/02/19 11:35 11:35 05:28 WBC 6.9 RBC 4.72 Hgb 15.9 Hct 45.5 MCV 96.3 MCH 33.7 MCHC 35.0 RDW 13.5 Plt Count 153 Neut % (Auto) 72.4 Lymph % (Auto) 15.0 L [place] % (Auto) 12.3 Eos % (Auto) 0.0 L Baso % (Auto) 0.3 Neut # (Auto) 5000 Lymph # (Auto) 1000 L [place] # (Auto) 900 Eos # (Auto) 0 Baso # (Auto) 0 ESR 4 PT INR APTT Sodium Potassium Chloride Carbon Dioxide BUN Creatinine Estimated GFR BUN/Creatinine Ratio Glucose Hemoglobin A1c Calcium Total Bilirubin AST ALT Alkaline Phosphatase Total Creatine Kinase CK-MB (CK-2) CK-MB (CK-2) Rel Index Troponin I C-Reactive Protein < 0.5 Total Protein Albumin Globulin Albumin/Globulin Ratio Lipase Prostate Specific Ag 8.39 H 06/02/19 06/02/19 05:28 05:28 WBC RBC Hgb Hct MCV MCH MCHC RDW Plt Count Neut % (Auto) Lymph % (Auto) [place] % (Auto) Eos % (Auto) Baso % (Auto) Neut # (Auto) Lymph # (Auto) [place] # (Auto) Eos # (Auto) Baso # (Auto) ESR PT INR APTT Sodium 136 L Potassium 4.3 Chloride 99 Carbon Dioxide 29 BUN 10 Creatinine 0.60 L Estimated GFR > 60.0 BUN/Creatinine Ratio 16.7 Glucose 141 H Hemoglobin A1c 5.9 Calcium 9.2 Total Bilirubin 1.5 H AST 243 H ALT 316 H Alkaline Phosphatase 107 Total Creatine Kinase CK-MB (CK-2) CK-MB (CK-2) Rel Index Troponin I C-Reactive Protein Total Protein 7.4 Albumin 3.8 Globulin 3.6 Albumin/Globulin Ratio 1.1 Lipase Prostate Specific Ag Assessment & Plan Assessment & Plan narrative: Abdominal pain. No sign of colitis on CT this evening or bowell wall thickening. Inflammatory markers are normal. Malrotati on. Obstipation? Has seen GI and recommends EGD/colonoscopy. Surgery does not feel this is appropriate in the acute setting. Continue parental hydromorphone for pain control. Continue working on his obstipation with suppository, enema. Given his vomiting would not try miralax just yet. Weight loss. Moderate Protein calorie malnutrition. 22 pounds in the past 2.5 months. Likely secondary to these episodes of pain and vomiting. Atrial fibrillation. continue metoprolol. Continue clopidogrel. Hypertension. Significant elevation in the ED but seems to be better controlled now when pain is controlled. Continue home meds. Chronic back pain. Given his inability to tolerate PO meds will continue the hydromorphone which was effective in the ED. Prostate mass. PSA is elevated but not significantly so. Possibly causing obstruction, postvoid residual this morning was 70 ml. Exam showing firm mass on the right. Radiology suggested MRI so will try to get that done. Code status: DNR DVT prophylaxis: lovenox He has failed outpatient management of this problem and requires inpatient care to manage his pain and nutrition while the etiology is found. This is going to take at least another 24-48 hours. Note: Greater than 35 minutes was spent evaluating the patient on the floor, including briefly examining the patient, discussing clinical course with clinical and nursing staff, reviewing clinical course in the computer, preparing documentation and writing orders for continued management of care, discussing status with family as appropriate, reviewing plans for the next 24 hours with both patient/family and nursing staff as appropriate. Time Spent With Patient Time with patient: Greater than 35 minutes Quality VTE Deep Vein Thrombosis/Pulmonary Embolism Present on Admission: No
[2019-06-02] MEDS: ENOXAPARIN 40 MG/0.4 ML SYRINGE SUBCUT (13:41)
--- NOTE | 2019-06-02 15:29 | PC.NURSE ---
Pt with emesis of 100cc. Given zofran earlier this am. Up to bathroom x1, voiding. He did not have any bowel movements. into see patient and did a rectal exam on patient and did not feel any stool. Was to give pt a suppository but he went down to MRI at that time. Not given vish po meds at this time as he was nauseous. Eves to give pt his suppository. Given iv dilaudid x3 for pain and helpful. Pt is resting comfortably now. Bt +x4, resting comfortably.
--- NOTE | 2019-06-02 17:10 | CM.DPNOTE ---
[facility] note: Insurance: initial clinicals: weekend protocol: UR MARY KATE Mondragon advises that if no specific request to send clinicals information to [facility] is found in COL notes the initial clinicals (falling to [employer] to fax as per weekend CM protocol) will not be needed. These notes are reviewed and Alanna now confirms initial clinicals do not need to be sent.
[2019-06-02] MEDS: BISACODYL 10 MG SUPP PR (17:19)
[2019-06-03] VITALS (12 sets, daily range): BP systolic 137–199; BP diastolic 94–119; PULSE 57–95; RESP 17–19; TEMP 36.8–37.1; O2SAT 95–99
[2019-06-03] MEDS: HYDROMORPHONE 2 MG INJ IV ×3 (00:53→16:19)
[2019-06-03] MEDS: SODIUM CHLORIDE 0.45% 1,000 ML 125 ML IV (00:55)
[2019-06-03] MEDS: METOPROLOL TARTRATE 5 MG/5 ML INJ IV ×5 (01:56→22:58)
[2019-06-03] MEDS: LORazepam 2 MG/ML INJ 0.5 MG IV ×2 (02:13→12:42)
[2019-06-03 06:25] LABS: Alanine Aminotransferase 322 IU/L (21-72); Albumin 3.7 g/dL (3.5-5.0); Albumin Globulin Ratio 1.1 (1.0-2.8); Alkaline Phosphatase 96 U/L (38-126); Aspartate Aminotransferase 287 IU/L (17-59); Bilirubin Total 1.6 mg/dL (0.2-1.3); Blood Urea Nitrogen 18 mg/dL (9-20); Carbon Dioxide 26 mmol/L (22-32); Chloride 100 mmol/L (98-107); Estimated Glomerular Filt Rate > 60.0 mL/min (>60); Globulin 3.5 g/dL (1.7-4.1); Glucose 135 mg/dL (80-110); HEMOLYSIS < 15 (0-50); Potassium 3.7 mmol/L (3.4-5.1); Sodium 134 mmol/L (137-145); Total Protein 7.2 g/dL (6.3-8.2)
--- NOTE | 2019-06-03 06:34 | PC.NURSE ---
Pt is a very pleasant 63yr old Male who appears very sad now and weak. Pt vomitted 75cc of black fecal matter at about 0030. NGT to the right nare at 65cm connected to low intermittent suction. [id number] During NGT placement pt went into SVT with HR of 150 sustaining, pt reported feeling heart palpations. BP 181/101. Dr. Torres notified and ordered Metoprolol 5mg IV and changed ativan to IV. Both given and HR came down quickly along with BP. Pt is reluctant to take pain meds now bc he's afraid of backing up his GI again, so he has seldom requested 1mg IV dilaudid. Tele: NSR aside from SVT incident. NS@125mL/hr Kept NPO, mouth swabs given.
[2019-06-03] MEDS: HYDROMORPHONE 1 MG INJ IV (10:20)
--- NOTE | 2019-06-03 10:24 | DI.RAD.S_ITS ---
PROCEDURE: XR CHEST 1V INDICATIONS: ng tube placement TECHNIQUE: One view of the chest was acquired. COMPARISON: [facility], [place], XR ACUTE ABDOMEN SERIES, 06/01/2019, 11:22. [facility], [place], CHEST 1 VIEW, 02/23/2009, 10:55. FINDINGS: Surgical changes and devices: There is a new nasogastric tube extending into the stomach. Lungs and pleura: Lungs are clear. No pleural effusions or pneumothorax. Mediastinum: Mediastinal contours appear normal. Heart size is normal. Bones and chest wall: No suspicious bony lesions. Overlying soft tissues appear unremarkable. IMPRESSION: 1. Nasogastric tube extends into the stomach. 2. No acute cardiopulmonary disease. Dictated by: Brian Austin M.D. on 06/03/2019 at 9:54 Approved by: Brian Austin M.D. on 06/03/2019 at 9:55
[2019-06-03] MEDS: PANTOPRAZOLE 40 MG VIAL IV ×2 (10:34→21:53)
[2019-06-03 10:47] LABS: Hematocrit 43.8 % (41-53); Hemoglobin 15.7 g/dL (13.5-17.5)
--- NOTE | 2019-06-03 11:13 | P.CONS_ITS ---
History of Present Illness Consult details Date Patient Seen: 06/03/19 Time Patient Seen: 11:29 Chief complaint: pain,vomiting Reason for consult: GI bleed Narrative: 63-year-old male with chronic abdominal pain presents to the hospital with recurring bilateral lower abdominal pain. He was admitted to the hospital 2 days ago and has subsequently developed nausea and vomiting. When an NGT was placed today gastric and bloodly content was drained. His vital signs are within normal limits he has received no transfusions so far his hematocrit this morning is 43. He has a CT from admission that I have reviewed that demonstrates no obstruction, chronic intestinal malrotation without volvulus and improving colitis. He was colitis of unknown reason which is demonstrated on multiple CT's this past year for which he saw GI in [place] last week who plan to perform a colonoscopy within the next 6 weeks. No prior history of gastritis or peptic ulcer disease he does take plavix for Cardiac stents and ibuprofen chronically. He has a history of Hep C but no history of cirrhosis. [facility] Medical History Cardiac arrhythmia (Chronic) Chronic hepatitis (Chronic) Coronary artery disease involving [place] coronary artery of [place] heart without angina pectoris (Chronic) Diverticular disease (Chronic) Diverticulosis of large intestine (Chronic 03/31/12) Essential hypertension (Chronic) Hepatitis C (Chronic) Kidney stones (Resolved) Mixed hyperlipidemia (Chronic) Surgical History History of angioplasty (~12/2006) Hx of inguinal hernia surgery (Resolved ~09/20/08) Hx of inguinal hernia surgery (Resolved ~03/07/14) Status post laminectomy Social History marital status: unmarried,single number of children: 3 household members: none lives independently: Yes caregiver/support person: No housing: house pets and animals: No education level: high school (11th grade) occupational status: 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.) alcohol intake: current substance use type: does not use and marijuana (On and off.) Meds Home Medications and Allergies Home Medications Medication Instructions Recorded Confirmed Type budesonide 3 mg 6 mg PO QAM #60 each 03/20/19 06/01/19 Rx capsule,delayed,extended release cyclobenzaprine 5 mg tablet 5 mg PO TID PRN tab 03/20/19 06/01/19 History morphine 20 mg/5 mL (4 mg/mL) oral See Rx Instructions .ROUTE 03/20/19 06/01/19 Rx solution .COMPLEX PRN #100 ml ibuprofen 200 mg tablet 200 mg PO BID tab 05/21/19 06/01/19 History lisinopril 20 mg tablet 20 mg PO DAILY #30 tab 05/21/19 06/01/19 Rx clopidogrel [Plavix] 75 mg PO DAILY 06/01/19 06/01/19 History metoprolol tartrate 50 mg PO BID 06/01/19 06/01/19 History ondansetron 4 mg PO Q6H PRN 06/01/19 06/01/19 History oxycodone 5 - 10 mg PO Q4H PRN 06/01/19 06/01/19 History simvastatin 40 mg tablet 40 mg PO DAILY #30 tab 06/02/19 Rx Allergies Allergy/AdvReac Type Severity Reaction Status Date / Time No Known Drug Allergies Allergy Verified 05/21/19 09:35 Review of Systems Review of Systems ROS Unobtainable: All systems reviewed & are unremarkable except as noted in HPI and below Exam Vital Signs (past 8 hours): - 06/03/19 05:35 Temperature 98.6 F Pulse Rate 95 H Respiratory Rate 17 Blood Pressure 137/97 H Pulse Oximetry 98 Oxygen Delivery Method Room Air Oxygen Flow Rate 0 Narrative Exam Narrative: General-adult male no acute distress, HEENT-Nasogastric tube in place with dark blood/gastric contents, no scleral icterus Neck-supple with full range of motion, no lymphadenopathy Chest- no labored respirations, clear to auscultation bilaterally Cardiac-regular rate and rhythm Abdomen-soft, non distended, mildly tender bilateral lower quadrants. Extremities-no edema, warm well perfused Neurological-alert and oriented x 3. No focal deficits Skin-normal temperature and turgor, no rashes or ulcers Objective Labs Result Diagrams: 06/03/19 10:16 06/03/19 05:39 Labs: Laboratory Results - last 24 hr 06/03/19 06/03/19 06/03/19 05:39 10:16 10:16 Hgb 15.7 Hct 43.8 Sodium 134 L Potassium 3.7 Chloride 100 Carbon Dioxide 26 BUN 18 Creatinine 0.50 L Estimated GFR > 60.0 BUN/Creatinine Ratio 36.0 H Glucose 135 H Calcium 9.0 Total Bilirubin 1.6 H AST 287 H ALT 322 H Alkaline Phosphatase 96 Total Protein 7.2 Albumin 3.7 Globulin 3.5 Albumin/Globulin Ratio 1.1 Crossmatch See Detail Assessment & Plan Assessment and plan (1) Upper GI bleed: Current visit: Yes Status: Acute Assessment & Plan narrative: 63-year-old male with an upper GI bleed hemodynamically stable. Nasogastric tube is in place with bloody output. Hematocrit 44 now, without tachycardia or hypotension. Home Plavix and ibuprofen been held. History of hep C no known liver cirrhosis plt 150, INR 1.0, cr 0.5, TB 1.6. Doubt esophageal varices suspect gastritis or peptic ulcer disease. -Protonix 40 mg b.i.d. -type and screen -coags -CBC b.i.d. -esophagoduodenoscopy tomorrow or sooner if decompensates
[2019-06-03 11:33] LABS: Add Manual Diff / Slide Review NO; Basophils Absolute Auto 0 /uL (0-100); Basophils Percent Auto 0.1 % (0-2); Eosinophils Absolute Auto 0 /uL (0-450); Eosinophils Percent Auto 0.1 % (2-4); Lymphocytes Absolute Auto 1000 /uL (1100-4500); Lymphocytes Percent Auto 12.5 % (25-40); Mean Corpuscular HGB Conc 35.3 % (30-36); Mean Corpuscular Hemoglobin 33.5 PG (26-34); Mean Corpuscular Volume 94.7 fL (80-100); Monocytes Absolute Auto 1100 /uL (0-900); Monocytes Percent Auto 13.9 % (3-14); Neutrophils Absolute Auto 5600 /uL (1500-7000); Neutrophils Percent Auto 73.4 % (50-75); Platelet Count 186 X10^3/uL (150-400); Red Blood Cell Count 4.67 X10^6/uL (4.5-5.9); Red Cell Distribution Width 13.4 % (11.6-14.8); White Blood Cell Count 7.7 X10^3/uL (4.5-11.0)
[2019-06-03 11:37] LABS: Hematocrit 43.8 % (41-53); Hemoglobin 15.7 g/dL (13.5-17.5)
--- NOTE | 2019-06-03 11:41 | DI.RAD.S_ITS ---
PROCEDURE: XR ABDOMEN 1V INDICATIONS: vomiting TECHNIQUE: One view of the abdomen acquired. COMPARISON: [facility], CT, CT ABDOMEN PELVIS W CON, 06/01/2019, 15:06. [facility], CR, XR CHEST 1V, 06/03/2019, 10:27. [facility], CR, XR ACUTE ABDOMEN SERIES, 06/01/2019, 11:22. FINDINGS: Surgical changes and devices: None. Bowel: Bowel gas pattern is within normal limits without evidence of obstruction. Soft tissues: No suspicious abdominal calcifications. Bones: No suspicious bony lesions. IMPRESSION: 1. Bowel gas pattern within normal limits without evidence of obstruction. Dictated by: Brian Austin M.D. on 06/03/2019 at 11:05 Approved by: Brian Austin M.D. on 06/03/2019 at 11:06
--- NOTE | 2019-06-03 11:55 | PC.NURSE ---
Addendum entered by Alessandra Metcalf R.N. 06/03/19 15:12: Pts BP down to 120s/90s. Given bed bath and seems to be feeling better. Addendum entered by Alessandra Metcalf R.N. 06/03/19 13:04: Pts bp 199/100s. Called and she suggests giving pt iv ativan and then checking pressure in half an hour. If still high, she will be notified. Original Note: 0830- Pt's NG tube blocked, tried to flush end with air and had alot of resistance. Advanced ng tube and then pulled it down and still resistance. Pt had a 75cc emesis of blood at rest. Tube stopped. into see patient and ordered protonix and a surgical consult. Pt given 1mg of iv dilaudid and helpful. Protonix given through IV. BP up to 163/104 and metoprolol 5mg iv given. Xray ordered for placement and in correct position. Thinking that is is possible maybe tube was up against the wall of stomach or perhaps maybe a blood clot. Dr. Massey up to consult with patient, tube flushed with water and also suction tubing. Pt is on LIS and a darkish brown black liquid is in chamber. Pt is resting comfortably at this time.
[2019-06-03] MEDS: DEXTROSE 5%-0.45% NS 1,000 ML 125 ML IV ×2 (11:56→21:54)
--- NOTE | 2019-06-03 12:35 | PM.PN.1 ---
Subjective Subjective Date Patient Seen: 06/03/19 Time Patient Seen: 10:00 Interval history: Patient developed feculent emesis overnight and had NG tube placed. Now with bloody output. Patient reports his abdominal pain worsened over the lower left quadrant (this is where his small bowel is from malrotation). Feels very nauseous. Was in atrial fibrillation overnight. He is in distress this morning from the pain and vomiting. Exam Vital Signs (past 8 hours): - 06/03/19 05:35 06/03/19 09:00 06/03/19 12:00 Temperature 98.6 F 98.7 F 98.4 F Pulse Rate 95 H 58 L 58 L Respiratory Rate 17 18 18 Blood Pressure 137/97 H 163/104 H 199/119 H Pulse Oximetry 98 98 99 Oxygen Delivery Method Room Air Oxygen Flow Rate 0 Narrative Exam Narrative: General: Well-developed, well-nourished, male, moderately distressed. Heart: Regular rate and rhythm, tachy Lungs: Clear to auscultation bilaterally, no wheezes, rales or rhonchi Abd: soft, hypoactive bowel sounds, voluntary guarding on palpation with hands but not with stethoscope, tender of RLQ Extremities: Warm and well perfused, no edema Objective Labs Result Diagrams: 06/03/19 10:16 06/03/19 05:39 Labs: Laboratory Results - last 24 hr 06/03/19 06/03/19 06/03/19 05:39 10:16 10:16 WBC RBC Hgb 15.7 Hct 43.8 MCV MCH MCHC RDW Plt Count Neut % (Auto) Lymph % (Auto) [place] % (Auto) Eos % (Auto) Baso % (Auto) Neut # (Auto) Lymph # (Auto) [place] # (Auto) Eos # (Auto) Baso # (Auto) Sodium 134 L Potassium 3.7 Chloride 100 Carbon Dioxide 26 BUN 18 Creatinine 0.50 L Estimated GFR > 60.0 BUN/Creatinine Ratio 36.0 H Glucose 135 H Calcium 9.0 Total Bilirubin 1.6 H AST 287 H ALT 322 H Alkaline Phosphatase 96 Total Protein 7.2 Albumin 3.7 Globulin 3.5 Albumin/Globulin Ratio 1.1 Crossmatch See Detail 06/03/19 10:16 WBC 7.7 RBC 4.67 Hgb 15.7 Hct 43.8 MCV 94.7 MCH 33.5 MCHC 35.3 RDW 13.4 Plt Count 186 Neut % (Auto) 73.4 Lymph % (Auto) 12.5 L [place] % (Auto) 13.9 Eos % (Auto) 0.1 L Baso % (Auto) 0.1 Neut # (Auto) 5600 Lymph # (Auto) 1000 L [place] # (Auto) 1100 H Eos # (Auto) 0 Baso # (Auto) 0 Sodium Potassium Chloride Carbon Dioxide BUN Creatinine Estimated GFR BUN/Creatinine Ratio Glucose Calcium Total Bilirubin AST ALT Alkaline Phosphatase Total Protein Albumin Globulin Albumin/Globulin Ratio Crossmatch Assessment & Plan Assessment & Plan narrative: Abdominal pain. No sign of colitis on CT or bowel wall thickening. Inflammatory markers are normal. Malrotation. Obstipation, now with clear colon on abdominal film. Has seen GI and recommends EGD/colonoscopy. Overnight had feculant emesis with NG placement, now with bloody output. Appreciate surgery consult today and recommendations for EGD tomorrow. Continues to be hemodynamically stable. Continue parental hydromorphone for pain control, lorazepam for nausea and anxiety. Weight loss. Moderate Protein calorie malnutrition. 22 pounds in the past 2.5 months. Likely secondary to these episodes of pain and vomiting. Added D5 to his fluids today. Hopefully we will be able to start feeding him again soon. Will ask dietary to see him tomorrow. Atrial fibrillation. continue metoprolol IV now. stop clopidogrel. Hypertension. Significant elevation in the ED was better controlled now when pain is controlled. Will continue IV metoprolol as heart rate tolerates. Chronic back pain. Given his inability to tolerate PO meds will continue the hydromorphone which was effective in the ED. Prostate mass. PSA is elevated but not significantly so. Possibly causing obstruction, postvoid residual this morning was 70 ml. Exam showing firm mass on the right. Attempted MRI yesterday had artifact from suppository. Will try additional imaging tomorrow. Radiologist suspects malignancy. Code status: DNR DVT prophylaxis: SCD's He has failed outpatient management of this problem and requires inpatient care to manage his pain and nutrition while the etiology is found. This is going to take at least another 24-48 hours. Note: Greater than 35 minutes was spent evaluating the patient on the floor, including briefly examining the patient, discussing clinical course with clinical and nursing staff, reviewing clinical course in the computer, preparing documentation and writing orders for continued management of care, discussing status with family as appropriate, reviewing plans for the next 24 hours with both patient/family and nursing staff as appropriate. Time Spent With Patient Time with patient: Greater than 35 minutes Quality VTE Deep Vein Thrombosis/Pulmonary Embolism Present on Admission: No
[2019-06-03] MEDS: ONDANSETRON 4 MG/2 ML INJ IV (16:18)
--- NOTE | 2019-06-03 16:35 | CM.DANOTE ---
Discharge Planning/Care Management DCP: assessment: started yesterday: 06/02. Case was received and Dr. 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 Asked about the social service referral. She noted she had not placed this and that she expected he would have no d/c planning needs. Due to caseload triage decision made to check in with pt in the morning. Documentation revealed that pt is a 63 year old male who admitted the night of 06/01 to care of [facility] physicians. PCP: Dr. Vasques: Payer: [facility] Medicare Advantage. Admission status: confirmed by UR MARY KATE Mondragon as INPT. CM Discharge Assessment Start: 06/03/19 16:24 Freq: Status: Active Protocol: Document 06/03/19 16:34 ITV (Rec: 06/03/19 16:35 ITV [id number]) Discharge Planning Assessment Advance Directives? Yes History Provided By Medical Record Prior Living Arrangements House Whiteboard Updated in Patient Room with Yes name and ext. # of Front Desk Specialist Review Status In Process
--- NOTE | 2019-06-03 16:42 | CM.DPC ---
DCP: continued: case discussed in Team Rounds with RN coordinator Lilli noting that pt started vomiting fecal material last night, NGT was place. Joey blood was noted later and surgery consult was pending. Went to check in with pt after this but noted Dr. Torres in deep discussion with pt and care team members. Planned to check in later. Checked in this afternoon, Gavi RN was in room, noted that pt was miserable, was vomiting even with the NGT in place and urgent call was out to physician. Pt was flushed, eyes closed, emesis bag in hand. NGT draining brown liquid. White board in his room was updated with DCP contact info. DCP team will be follow as POC unfolds and as the needs at d/c become clearer.
[2019-06-03 19:24] LABS: Add Manual Diff / Slide Review NO; Basophils Absolute Auto 0 /uL (0-100); Basophils Percent Auto 0.4 % (0-2); Eosinophils Absolute Auto 0 /uL (0-450); Eosinophils Percent Auto 0.1 % (2-4); Hematocrit 40.8 % (41-53); Hemoglobin 14.4 g/dL (13.5-17.5); Lymphocytes Absolute Auto 1100 /uL (1100-4500); Mean Corpuscular HGB Conc 35.2 % (30-36); Mean Corpuscular Hemoglobin 33.3 PG (26-34); Mean Corpuscular Volume 94.5 fL (80-100); Monocytes Absolute Auto 800 /uL (0-900); Monocytes Percent Auto 12.4 % (3-14); Neutrophils Absolute Auto 4600 /uL (1500-7000); Neutrophils Percent Auto 70.1 % (50-75); Platelet Count 158 X10^3/uL (150-400); Red Blood Cell Count 4.32 X10^6/uL (4.5-5.9); Red Cell Distribution Width 13.2 % (11.6-14.8); White Blood Cell Count 6.5 X10^3/uL (4.5-11.0)
[2019-06-03] MEDS: SODIUM CHLORIDE 0.9% 500 ML IV ×2 (20:07→20:45)
--- NOTE | 2019-06-03 20:09 | PC.NURSE ---
Addendum entered by Vania Flynn R.N. 06/03/19 23:12: 2246- Pt went into SVT 160's, this RN at bedside pt A&O complaining of racing heart, this RN instructed pt to bear down and cough, BP 130's/100s. This RN paged charge master specialist and float RN to assist. This RN tony up pt 5mg metoprolol IV. Before administering IV metoprolol pt converted back into baseline rhythm. BP recheck 152/98, HR 74. 5mg IV metoprolol given at 2258. at home independent call center agent paged and updated. Verbal orders to transfer pt to ICU for higher level care. Bedside report given to MARY KATE Reeder. Original Note: Evening Shift Note 1600- Pt complaining of nausea and emesis x1, 50cc of dark brown thick mucus, NG tube red tinged. Pt also hypertensive and HR 57, complaining of nausea and pain. Pt medicated w/ 4mg of IV Zofran and 1mg of IV Dilaudid. paged and called to update on pt condition, repeat CBG at 1630 BP 156/94, HR 81, 5mg IV metoprolol given at 1743. Pt expressed feeling comfortable and able to take a nap. 1929 called to update on CBG results. informed that pt difficult to arouse from nap, pt expressed feeling weaker and pulse pressure narrowing BP 139/109. Verbal orders for NS 500cc bolus over an hour. 2029 NS 500cc bolus completed. BP 152/98, HR 75. paged and updated. Verbal orders to give repeat NS 500cc bolus. Hold metoprolol IV 5mg and reassess at 2300. to page gen surg. Will continue to monitor.
[2019-06-04] VITALS (20 sets, daily range): BP systolic 94–162; BP diastolic 61–99; PULSE 59–108; RESP 12–20; TEMP 36–37.7; O2SAT 93–100; BMI 20.7
[2019-06-04] MEDS: HYDROMORPHONE 2 MG INJ IV ×5 (00:54→20:10)
[2019-06-04] MEDS: METOPROLOL TARTRATE 5 MG/5 ML INJ IV ×4 (05:12→22:04)
[2019-06-04] MEDS: DEXTROSE 5%-0.45% NS 1,000 ML 125 ML IV ×2 (05:23→16:02)
[2019-06-04 06:00] LABS: Add Manual Diff / Slide Review NO; Basophils Absolute Auto 0 /uL (0-100); Basophils Percent Auto 0.4 % (0-2); Eosinophils Absolute Auto 0 /uL (0-450); Eosinophils Percent Auto 0.3 % (2-4); Hematocrit 41.2 % (41-53); Hemoglobin 14.4 g/dL (13.5-17.5); Lymphocytes Absolute Auto 1200 /uL (1100-4500); Lymphocytes Percent Auto 16.8 % (25-40); Mean Corpuscular Hemoglobin 33.6 PG (26-34); Mean Corpuscular Volume 95.8 fL (80-100); Monocytes Absolute Auto 1000 /uL (0-900); Monocytes Percent Auto 14.3 % (3-14); Neutrophils Absolute Auto 4700 /uL (1500-7000); Neutrophils Percent Auto 68.2 % (50-75); Platelet Count 144 X10^3/uL (150-400); Red Blood Cell Count 4.31 X10^6/uL (4.5-5.9); Red Cell Distribution Width 13.1 % (11.6-14.8); White Blood Cell Count 6.9 X10^3/uL (4.5-11.0)
[2019-06-04 07:08] LABS: Alanine Aminotransferase 284 IU/L (21-72); Albumin 3.1 g/dL (3.5-5.0); Alkaline Phosphatase 71 U/L (38-126); Aspartate Aminotransferase 239 IU/L (17-59); Bilirubin Total 1.5 mg/dL (0.2-1.3); Blood Urea Nitrogen 12 mg/dL (9-20); Calcium 8.6 mg/dL (8.4-10.2); Carbon Dioxide 27 mmol/L (22-32); Chloride 100 mmol/L (98-107); Estimated Glomerular Filt Rate > 60.0 mL/min (>60); Globulin 3.2 g/dL (1.7-4.1); Glucose 184 mg/dL (80-110); HEMOLYSIS 30 (0-50); Potassium 3.2 mmol/L (3.4-5.1); Sodium 134 mmol/L (137-145); Total Protein 6.3 g/dL (6.3-8.2)
[2019-06-04] MEDS: PANTOPRAZOLE 40 MG VIAL IV ×2 (08:18→20:09)
--- NOTE | 2019-06-04 09:35 | P.PN_ITS ---
Subjective Subjective Date Patient Seen: 06/04/19 Time Patient Seen: 09:35 Interval history: Improved abdominal pain as compared to yesterday. Moved to the ICU for AFib with tachycardia now rate controlled. No hemodynamic instability. 620 mL of the nasogastric tube over the past 24 hours now clearing in color. Exam Vital Signs (past 8 hours): - 06/04/19 03:08 06/04/19 04:00 06/04/19 05:00 Temperature Pulse Rate 84 77 78 Respiratory Rate 12 18 16 Blood Pressure 153/93 H 133/91 H 136/95 H Pulse Oximetry 93 97 96 06/04/19 06:00 06/04/19 08:00 06/04/19 08:42 Temperature 98.1 F Pulse Rate 59 L 70 Respiratory Rate 16 14 Blood Pressure 145/90 H 155/94 H Pulse Oximetry 97 98 95 Oxygen Delivery Method Room Air Oxygen Flow Rate 0 Narrative Exam Narrative: Adult male alert oriented no acute distress Chest nonlabored respirations Abdomen soft mildly tender bilateral lower quadrants no peritonitis Objective Labs Result Diagrams: 06/04/19 04:55 06/04/19 04:55 Labs: Laboratory Results - last 24 hr 06/03/19 06/03/19 06/03/19 10:16 10:16 10:16 WBC 7.7 RBC 4.67 Hgb 15.7 15.7 Hct 43.8 43.8 MCV 94.7 MCH 33.5 MCHC 35.3 RDW 13.4 Plt Count 186 Neut % (Auto) 73.4 Lymph % (Auto) 12.5 L [place] % (Auto) 13.9 Eos % (Auto) 0.1 L Baso % (Auto) 0.1 Neut # (Auto) 5600 Lymph # (Auto) 1000 L [place] # (Auto) 1100 H Eos # (Auto) 0 Baso # (Auto) 0 Sodium Potassium Chloride Carbon Dioxide BUN Creatinine Estimated GFR BUN/Creatinine Ratio Glucose Calcium Total Bilirubin AST ALT Alkaline Phosphatase Total Protein Albumin Globulin Albumin/Globulin Ratio Nasal Screen MRSA (PCR) Blood Type O Positive Antibody Screen Negative Crossmatch See Detail 06/03/19 06/04/19 06/04/19 19:21 00:00 04:55 WBC 6.5 6.9 RBC 4.32 L 4.31 L Hgb 14.4 14.4 Hct 40.8 L 41.2 MCV 94.5 95.8 MCH 33.3 33.6 MCHC 35.2 35.0 RDW 13.2 13.1 Plt Count 158 144 L Neut % (Auto) 70.1 68.2 Lymph % (Auto) 17.0 L 16.8 L [place] % (Auto) 12.4 14.3 H Eos % (Auto) 0.1 L 0.3 L Baso % (Auto) 0.4 0.4 Neut # (Auto) 4600 4700 Lymph # (Auto) 1100 1200 [place] # (Auto) 800 1000 H Eos # (Auto) 0 0 Baso # (Auto) 0 0 Sodium Potassium Chloride Carbon Dioxide BUN Creatinine Estimated GFR BUN/Creatinine Ratio Glucose Calcium Total Bilirubin AST ALT Alkaline Phosphatase Total Protein Albumin Globulin Albumin/Globulin Ratio Nasal Screen MRSA (PCR) Negative for mrsa Blood Type Antibody Screen Crossmatch 06/04/19 04:55 WBC RBC Hgb Hct MCV MCH MCHC RDW Plt Count Neut % (Auto) Lymph % (Auto) [place] % (Auto) Eos % (Auto) Baso % (Auto) Neut # (Auto) Lymph # (Auto) [place] # (Auto) Eos # (Auto) Baso # (Auto) Sodium 134 L Potassium 3.2 L Chloride 100 Carbon Dioxide 27 BUN 12 Creatinine 0.40 L Estimated GFR > 60.0 BUN/Creatinine Ratio 30.0 H Glucose 184 H Calcium 8.6 Total Bilirubin 1.5 H AST 239 H ALT 284 H Alkaline Phosphatase 71 Total Protein 6.3 Albumin 3.1 L Globulin 3.2 Albumin/Globulin Ratio 1.0 Nasal Screen MRSA (PCR) Blood Type Antibody Screen Crossmatch Assessment & Plan Assessment & Plan narrative: 63-year-old male admitted with an upper GI bleed hemodynamically stable not require transfusion. Performed esophagoduodenoscopy this morning which demonstrates mild gastritis without active hemorrhage or ulcer disease. Nasogastric tube removed during procedure. May begin on clear liquid diet now. Continue Protonix 40 mg b.i.d. continue to hold the Plavix and ibuprofen. Quality VTE Deep Vein Thrombosis/Pulmonary Embolism Present on Admission: No
[2019-06-04] MEDS: SODIUM CHLORIDE 0.9% 1,000 ML 84 ML IV (10:40)
--- NOTE | 2019-06-04 10:43 | SUR.HOLD ---
Pt brought to [facility] via wheel chair, attched to bedside moniter, showing sr with occasional pac.
--- NOTE | 2019-06-04 10:44 | SUR.HOLD ---
railing x 1 up, call light w/in reach.
--- NOTE | 2019-06-04 10:57 | PM.PREOP ---
Pre-operative Note Interval Note History & Physical reviewed/Exam performed by Physician: Yes Changes to H&P: No ASA Class (for procedural sedation): III
[2019-06-04] MEDS: LIDOCAINE 4% SOLN 50 ML 20 ML TOP (11:16)
--- NOTE | 2019-06-04 11:28 | PM.OP.ENDO ---
Operative Date/Time/Diagnoses Date of procedure: 06/04/19 Time of procedure: 11:28 Pre-op diagnosis: upper gi bleed Post-op diagnosis: other (gastritis) Procedure & Clinicians Study performed: Esophagoduodenoscopy Same procedure as scheduled: Yes Indications: 63-year-old male presented to the hospital with abdominal pain hematemesis. Presents for a EGD Surgeon: Rico Massey Procedure Notes SCOAP/Timeout: Performed Procedure in detail: A bite guard both block was placed. The patient was sedated and the scope was inserted into the mouth and carefully advanced into the esophagus. The stomach was then entered and insufflated. The pyloric channel was examined and was negative for ulcers. There was some mild gastritis of the antrum without acute hemorrhage. There is a small hiatal hernia, no Eduardo's ulcer. The esophagus was normal in its appearance including the Z-line. The stomach was desufflated and the scope was carefully removed Scope withdrawal time: Not applicable Sedation minutes: 10 Findings: gastritis Specimen(s): none sent Complications: none Impression: Gastritis Post-procedure Plan for aftercare: Continue Protonix 40 mg b.i.d.. May begin clear liquid diet Disposition: ICU
[2019-06-04] MEDS: fentaNYL 250 MCG/5 ML INJ IV (11:31)
[2019-06-04] MEDS: MIDAZOLAM 5 MG/5 ML VIAL IV (11:32)
--- NOTE | 2019-06-04 11:50 | SUR.PHASEI ---
Pt arrived top PACU w/o NGT, it was pulled during the procedure by Dr. Massey. Pt slowly awoke, ice chip taken well.
--- NOTE | 2019-06-04 11:57 | SUR.PHASEI ---
Dr rice spoke with pt at the bedside, report called and pt transported back to ICU
--- NOTE | 2019-06-04 12:17 | PC.NURSE ---
Day Shift Note Pt to OR at about 1025 via wheelchair, report given to Kimi HARTMANN. Pt back from PACU at 1210 via stretcher, able to move self across to bed. Drowsy but oriented x3 and able to answer all questions. Oxygen sats 96% on RA. Denies pain, denies nausea. NG tube removed by MD in OR. Call light within reach, using appropriately to make needs known.
[2019-06-04] MEDS: ONDANSETRON 4 MG/2 ML INJ IV (15:18)
--- NOTE | 2019-06-04 15:28 | DIET.PN ---
Dietary Progress Note Assessment: 63y M referred to nutrition for MNA 5 (malnourished), c vomiting, upper GI bleed, mild gastritis. Dx colitis 3y ago but has alway had sensitive tummy. Pt wakes and sometimes has diarrhea, if he gets the sweats, he will vomit and have diarrhea for the rest of the day until 9pm. On those days, he does not eat or drink anything until feeling settled. These happen around 1x/mo but have been getting more frequent, he has come to ER in the past for this. Pt also has considerable pain c urination, needs to [place] to get all out and is up 6-10x/night like this. 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 HT: 170.1cm WT: 60.1kg BMI:20.8 (low) Labs: A1c 5.9 (h), BG 135-184, AST/ALT/BILI all high re: Hep C, Alb 3.1, PSA 8.39 (H) MNA: 5 malnourished Armando: 18 Nutrition Diagnosis: Severe Acute on Chronic PCM r/t poorly managed colitis and general GI distress aeb <75% EER for 2mo, debilitating N/V/D occurring regularly for past year, moderate reduced subcutaneous fat body wide, BMI 20.8 (low for age). Interventions: Pts persistent vomiting c diarrhea seems broader than colitis. Recc ONS ensure clear bid until diet advances. This RD would like to work further c pt on dietary strategies to manage GI distress. Consult was cut short r/t pt nausea. Will followup 06/06. Diet Order: Clears (post endo) EER: 1850kcal, 72g PRO (1.2g/kg maln), 1.8L fluids Monitoring/Evaluations: continued education re nutrition, I&Os, wt
[2019-06-04] MEDS: METOCLOPRAMIDE 10 MG/2 ML INJ IV (18:07)
[2019-06-04] MEDS: FLEETS ENEMA 1 EACH PR (19:54)
--- NOTE | 2019-06-04 20:58 | PM.PN.1 ---
Subjective Subjective Date Patient Seen: 06/04/19 Time Patient Seen: 07:10 Interval history: Patient is lying comfortably in bed this morning. Getting ready for EGD a noon. Tells me that he had tried to back off on pain medication yesterday and ended up in significant pain. This caused seating, increase in his heart beat as well as increase in his blood pressure so he was transferred down here to the ICU. He hasn't had any further stool. He hasn't vomited. He continues to have some dark output in his NG tube. Exam Vital Signs (past 8 hours): - 06/04/19 13:25 06/04/19 15:19 Temperature 98.5 F 98.6 F Pulse Rate 75 74 Respiratory Rate 15 15 Blood Pressure 133/85 133/84 Pulse Oximetry 96 Oxygen Delivery Method Room Air Oxygen Flow Rate 0 Narrative Exam Narrative: General: Well-developed, thin, pale, male, no acute distress Heart: Regular rate and rhythm Lungs: Clear to auscultation bilaterally, no wheezes, rales or rhonchi Abd: soft, hypoactive bowel sounds, tender on right side of umbilicus Extremities: Warm and well perfused, no edema Objective Labs Result Diagrams: 06/04/19 04:55 06/04/19 04:55 Labs: Laboratory Results - last 24 hr 06/04/19 06/04/19 06/04/19 00:00 04:55 04:55 WBC 6.9 RBC 4.31 L Hgb 14.4 Hct 41.2 MCV 95.8 MCH 33.6 MCHC 35.0 RDW 13.1 Plt Count 144 L Neut % (Auto) 68.2 Lymph % (Auto) 16.8 L Lucas % (Auto) 14.3 H Eos % (Auto) 0.3 L Baso % (Auto) 0.4 Neut # (Auto) 4700 Lymph # (Auto) 1200 Lucas # (Auto) 1000 H Eos # (Auto) 0 Baso # (Auto) 0 Sodium 134 L Potassium 3.2 L Chloride 100 Carbon Dioxide 27 BUN 12 Creatinine 0.40 L Estimated GFR > 60.0 BUN/Creatinine Ratio 30.0 H Glucose 184 H Calcium 8.6 Total Bilirubin 1.5 H AST 239 H ALT 284 H Alkaline Phosphatase 71 Total Protein 6.3 Albumin 3.1 L Globulin 3.2 Albumin/Globulin Ratio 1.0 Nasal Screen MRSA (PCR) Negative for mrsa Assessment & Plan Assessment & Plan narrative: Abdominal pain. No sign of colitis on CT or bowel wall thickening. Inflammatory markers are normal. Malrotation. Constipation? Tuesday had feculent then bloody output from NG. EGD today showing only gastritis. No NG now. Nausea with clears. Continue parental hydromorphone for pain control, lorazepam for nausea and anxiety. Discussed with surgery and will try enema and reglan overnight. Upper GI with small bowel follow through tomorrow. Dr. Ochoa to round tomorrow and will defer the decision to order the upper GI to him dependent on how things go overnight. There was some speculation by GI that her prostate might be causing his discomfort. Please see below for further discussion. Weight loss. Moderate Protein calorie malnutrition. 22 pounds in the past 2.5 months. Likely secondary to these episodes of pain and vomiting. Also with likely prostate cancer. Hopefully he tolerated clears. Atrial fibrillation. continue metoprolol IV now. stop clopidogrel scondary to bleeding. He has been in sinus rhythm. Hypertension. manageable with metoprolol as well as pain control. Chronic back pain. Given his inability to tolerate PO meds will continue the hydromorphone which was effective in the ED. Prostate mass. PSA is elevated but not significantly so. MRI Bi-rads 5, showing capsular invasion, possible rectal wall invasion and seminal vesicle. Really needs a biopsy however urology not available here and could be done as outpatient if we can get his pain controlled and able to eat and maintain hydration. Did attempt to contact urology [employer] professional without response. Code status: DNR DVT prophylaxis: SCD's He has failed outpatient management of this problem and requires inpatient care to manage his pain and nutrition while the etiology is found. This is going to take at least another 24-48 hours. Note: Greater than 35 minutes was spent evaluating the patient on the floor, including briefly examining the patient, discussing clinical course with clinical and nursing staff, reviewing clinical course in the computer, preparing documentation and writing orders for continued management of care, discussing status with family as appropriate, reviewing plans for the next 24 hours with both patient/family and nursing staff as appropriate. Time Spent With Patient Time with patient: Greater than 35 minutes Quality VTE Deep Vein Thrombosis/Pulmonary Embolism Present on Admission: No
--- NOTE | 2019-06-04 22:35 | PC.NURSE ---
Patient had 3 minute run of SVT in the 150's. Patient assymptomatic. Attempted to valsalva maneuever without effect. Did return to baseline heart rate of 90's on his own. Metoprolol given per order. Dr. Dhaliwal updated on SVT. Patient resting peacefully in bed.
[2019-06-05] VITALS (9 sets, daily range): BP systolic 128–150; BP diastolic 79–100; PULSE 63–98; RESP 12–16; TEMP 36.9–37.9; O2SAT 97–100
[2019-06-05] MEDS: DEXTROSE 5%-0.45% NS 1,000 ML 125 ML IV ×2 (01:25→14:58)
[2019-06-05] MEDS: METOCLOPRAMIDE 10 MG/2 ML INJ IV ×3 (02:08→18:28)
[2019-06-05 05:12] LABS: Add Manual Diff / Slide Review NO; Basophils Absolute Auto 0 /uL (0-100); Basophils Percent Auto 0.7 % (0-2); Eosinophils Absolute Auto 0 /uL (0-450); Eosinophils Percent Auto 0.7 % (2-4); Hematocrit 40.3 % (41-53); Hemoglobin 14.4 g/dL (13.5-17.5); Lymphocytes Absolute Auto 1600 /uL (1100-4500); Lymphocytes Percent Auto 28.5 % (25-40); Mean Corpuscular HGB Conc 35.7 % (30-36); Mean Corpuscular Hemoglobin 33.6 PG (26-34); Monocytes Absolute Auto 900 /uL (0-900); Monocytes Percent Auto 15.5 % (3-14); Neutrophils Absolute Auto 3000 /uL (1500-7000); Neutrophils Percent Auto 54.6 % (50-75); Platelet Count 162 X10^3/uL (150-400); Red Blood Cell Count 4.29 X10^6/uL (4.5-5.9); Red Cell Distribution Width 13.1 % (11.6-14.8); White Blood Cell Count 5.5 X10^3/uL (4.5-11.0)
[2019-06-05] MEDS: METOPROLOL TARTRATE 5 MG/5 ML INJ IV (05:12)
[2019-06-05 05:18] LABS: Alanine Aminotransferase 272 IU/L (21-72); Albumin 3.2 g/dL (3.5-5.0); Alkaline Phosphatase 75 U/L (38-126); Aspartate Aminotransferase 211 IU/L (17-59); Bilirubin Total 1.6 mg/dL (0.2-1.3); Blood Urea Nitrogen 8 mg/dL (9-20); Calcium 8.5 mg/dL (8.4-10.2); Carbon Dioxide 27 mmol/L (22-32); Chloride 102 mmol/L (98-107); Estimated Glomerular Filt Rate > 60.0 mL/min (>60); Globulin 3.1 g/dL (1.7-4.1); Glucose 130 mg/dL (80-110); HEMOLYSIS < 15 (0-50); Potassium 2.9 mmol/L (3.4-5.1); Sodium 137 mmol/L (137-145); Total Protein 6.3 g/dL (6.3-8.2)
[2019-06-05] MEDS: HYDROMORPHONE 2 MG INJ IV (05:21)
[2019-06-05] MEDS: ONDANSETRON 4 MG/2 ML INJ IV (05:23)
[2019-06-05] MEDS: POTASSIUM CHLORIDE 40 MEQ in SODIUM CHLORIDE 0.9% 500 ML 130 ML IV ×4 (06:48→23:20)
--- NOTE | 2019-06-05 06:48 | PM.PN.1 ---
Subjective Subjective Date Patient Seen: 06/05/19 Time Patient Seen: 06:48 Interval history: Patient seen and evaluated this morning. Doing well. Has some complaints of abdominal pain and discomfort which she says is chronic nothing new. He says he is a little bit afraid to eat. He has ongoing nausea. Patient had bowel activity yesterday with a bowel movement. He says he is passing gas. EGD was done which showed no miguel ángel ulcer but gastritis. NG tube has been removed. Gill catheter still in place. Patient receiving IV fluid. Had a small amount of Jell-O. Potassium is low today. Exam Vital Signs (past 8 hours): - 06/04/19 23:46 06/05/19 01:32 06/05/19 04:35 Temperature 99.9 F H 100.3 F H Pulse Rate 76 96 H Respiratory Rate 15 16 Blood Pressure 126/85 140/85 Pulse Oximetry 98 97 98 06/05/19 05:21 Temperature 99.2 F Pulse Rate Respiratory Rate Blood Pressure Pulse Oximetry Oxygen Delivery Method Room Air Oxygen Flow Rate 0 Narrative Exam Narrative: Gen.: Alert no apparent distress HEENT: Pupils equal round and reactive or mucosa is moist Cardio: S1-S2 regular rate and rhythm Respiratory: Lungs are clear to auscultation no wheezes or crackles normal respiratory effort. Abdomen: Soft nontender Extremities: No edema Objective Labs Result Diagrams: 06/05/19 04:48 06/05/19 04:48 Labs: Laboratory Results - last 24 hr 06/04/19 06/05/19 06/05/19 04:55 04:48 04:48 WBC 5.5 RBC 4.29 L Hgb 14.4 Hct 40.3 L MCV 94.0 MCH 33.6 MCHC 35.7 RDW 13.1 Plt Count 162 Neut % (Auto) 54.6 Lymph % (Auto) 28.5 [place] % (Auto) 15.5 H Eos % (Auto) 0.7 L Baso % (Auto) 0.7 Neut # (Auto) 3000 Lymph # (Auto) 1600 [place] # (Auto) 900 Eos # (Auto) 0 Baso # (Auto) 0 Sodium 134 L 137 Potassium 3.2 L 2.9 L Chloride 100 102 Carbon Dioxide 27 27 BUN 12 8 L Creatinine 0.40 L 0.50 L Estimated GFR > 60.0 > 60.0 BUN/Creatinine Ratio 30.0 H 16.0 Glucose 184 H 130 H Calcium 8.6 8.5 Total Bilirubin 1.5 H 1.6 H AST 239 H 211 H ALT 284 H 272 H Alkaline Phosphatase 71 75 Total Protein 6.3 6.3 Albumin 3.1 L 3.2 L Globulin 3.2 3.1 Albumin/Globulin Ratio 1.0 1.0 Assessment & Plan Assessment & Plan narrative: Abdominal pain. No sign of colitis on CT or bowel wall thickening. Inflammatory markers are normal. Malrotation. Constipation? EGD yesterday which showed gastritis. Removal of NG tube. Since that time patient has had passing of gas. Mild stool output. Nothing yet today. Still nausea and his chronic abdominal pain. Discussion with patient today about advancing diet. Says he would like to try Jell-O. More orals. He is nauseated. Will go ahead and start him back on some of his oral medications his metoprolol simvastatin lisinopril and oral pain medication and get him off the IV pain medication. Will continue proton pump inhibitor IV as per surgery. Hyperkalemia. Potassium replacement with K riders as he is not tolerating oral recheck electrolytes later this afternoon check a magnesium. Recheck electrolytes in the a.m.. Weight loss. Moderate Protein calorie malnutrition. 22 pounds in the past 2.5 months. Atrial fibrillation. Rates well controlled. Started on oral metoprolol. IV. Maybe a candidate for long-term anticoagulation. Although at this point would make me concerned because of recent bleeding. Hypertension. Place back on oral lisinopril and metoprolol Chronic back pain. Restart on oxycodone. Prostate mass. Probable prostate cancer. Based on recent MRI scan. Patient was given the results today. He is aware of this. Knows that he needs to follow up with Urology as an outpatient. Code status: DNR DVT prophylaxis: SCD's Disposition and plan. Advance diet today. Start back on oral medication dc IV pain medication advanced slowly. Patient states it may take a couple of days he says he is familiar with this. Quality VTE Deep Vein Thrombosis/Pulmonary Embolism Present on Admission: No
[2019-06-05 06:58] LABS: Magnesium 1.7 mg/dL (1.6-2.3)
[2019-06-05] MEDS: PANTOPRAZOLE 40 MG VIAL IV ×2 (09:27→19:24)
[2019-06-05] MEDS: TAMSULOSIN 0.4 MG CAPSULE PO (09:27)
[2019-06-05] MEDS: METOPROLOL IR 25 MG TABLET PO ×2 (09:32→19:25)
--- NOTE | 2019-06-05 13:08 | CM.DPC ---
Addendum entered by Radha Guajardo R.N. 06/05/19 15:00: Checked on home health agencies, regarding patient's insurance. [facility] does not serve area, takes insurance. Spoke to [facility], they do take insurance. Sharon from [facility] happened to come by the office, and gave her information. Stated that they can see patient as soon as , and if he needs it over the week-end, will need to have the order by Tuesday. Spoke to Alexi, patient's son, and he mentioned, his dad has good support from family and friends, but home health will be beneficial to him as long as he's ok with it. let son know that this family preservation caseworker had conversation with patient about this earlier this morning. Will need to consult with primary MD, Dr. Vasques, regarding getting face to face. Original Note: DCP Cont: Met with patient in his room. He was sitting up in his chair, NG tube discontinued. Confirmed that patient lives alone off of [address] [address] in [place], and has a [employer]. He mentioned that he has approximately 25 acres, and has been living there since 1979. Discussed home health option, if nursing is needed, and he stated, that might be a good idea. Let him know that this would not be the same as a daily caregiver. Patient has a son that resides in [place]. Confirmed with patient that he does not drive, but has family and friends to help him with appts. According to Dr. Ochoa's note from today, diet is to be advanced. He is low on Potassium, and he will be given a rider. He does have a diagnosis of Prostate Cancer, which he has been informed of, and will follow up with a urologist. P: DCP to continue to follow closely. Patient may benefit from home health, will continue to see how he progresses here in hospital regarding his medical stability. Radha Guajardo RN/Artificial Limb Maker
[2019-06-05] MEDS: GABAPENTIN 100 MG CAPSULE PO ×2 (14:58→19:26)
[2019-06-05 18:07] LABS: Blood Urea Nitrogen 9 mg/dL (9-20); Calcium 8.8 mg/dL (8.4-10.2); Carbon Dioxide 27 mmol/L (22-32); Chloride 105 mmol/L (98-107); Estimated Glomerular Filt Rate > 60.0 mL/min (>60); Glucose 174 mg/dL (80-110); HEMOLYSIS < 15 (0-50); Potassium 3.1 mmol/L (3.4-5.1); Sodium 138 mmol/L (137-145)
[2019-06-05] MEDS: SIMVASTATIN 40 MG TABLET PO (19:26)
[2019-06-06] VITALS (8 sets, daily range): BP systolic 134–157; BP diastolic 86–96; PULSE 66–90; RESP 15–18; TEMP 36.8–37.1; O2SAT 97–99
[2019-06-06] MEDS: OXYCODONE IR 5 MG TABLET 10 MG PO ×4 (00:19→18:27)
[2019-06-06] MEDS: ONDANSETRON 4 MG/2 ML INJ IV (00:19)
[2019-06-06] MEDS: DEXTROSE 5%-0.45% NS 1,000 ML 125 ML IV ×2 (00:48→06:31)
[2019-06-06] MEDS: LORazepam 2 MG/ML INJ 0.5 MG IV (02:21)
[2019-06-06] MEDS: METOCLOPRAMIDE 10 MG/2 ML INJ IV ×3 (02:22→18:27)
[2019-06-06 05:02] LABS: Add Manual Diff / Slide Review NO; Basophils Absolute Auto 0 /uL (0-100); Basophils Percent Auto 0.8 % (0-2); Eosinophils Absolute Auto 100 /uL (0-450); Hematocrit 33.2 % (41-53); Hemoglobin 11.8 g/dL (13.5-17.5); Lymphocytes Absolute Auto 1300 /uL (1100-4500); Lymphocytes Percent Auto 28.5 % (25-40); Mean Corpuscular HGB Conc 35.6 % (30-36); Mean Corpuscular Hemoglobin 33.9 PG (26-34); Mean Corpuscular Volume 95.3 fL (80-100); Monocytes Absolute Auto 600 /uL (0-900); Monocytes Percent Auto 13.3 % (3-14); Neutrophils Absolute Auto 2500 /uL (1500-7000); Neutrophils Percent Auto 55.4 % (50-75); Platelet Count 140 X10^3/uL (150-400); Red Blood Cell Count 3.48 X10^6/uL (4.5-5.9); Red Cell Distribution Width 13.1 % (11.6-14.8); White Blood Cell Count 4.6 X10^3/uL (4.5-11.0)
[2019-06-06 05:10] LABS: Blood Urea Nitrogen 7 mg/dL (9-20); Calcium 8.4 mg/dL (8.4-10.2); Carbon Dioxide 26 mmol/L (22-32); Chloride 107 mmol/L (98-107); Estimated Glomerular Filt Rate > 60.0 mL/min (>60); Glucose 148 mg/dL (80-110); HEMOLYSIS < 15 (0-50); Magnesium 1.7 mg/dL (1.6-2.3); Potassium 3.6 mmol/L (3.4-5.1); Sodium 138 mmol/L (137-145)
[2019-06-06] MEDS: METOPROLOL IR 25 MG TABLET PO ×2 (08:54→21:12)
[2019-06-06] MEDS: SENNOSIDES 8.6 MG TABLET PO ×2 (08:54→21:12)
[2019-06-06] MEDS: BUDESONIDE 3 MG CAP 6 MG PO (08:54)
[2019-06-06] MEDS: GABAPENTIN 100 MG CAPSULE PO ×3 (08:54→21:13)
[2019-06-06] MEDS: MINERAL OIL 1 EACH ENEMA PR (08:54)
[2019-06-06] MEDS: PANTOPRAZOLE 40 MG VIAL IV ×2 (08:54→21:12)
[2019-06-06] MEDS: TAMSULOSIN 0.4 MG CAPSULE PO (08:54)
[2019-06-06] MEDS: POLYETHYLENE GLYCOL 3350 17 GM POWD.PACK PO (08:59)
[2019-06-06] MEDS: CLOPIDOGREL 75 MG TABLET PO (09:04)
[2019-06-06] MEDS: LISINOPRIL 20 MG TABLET PO (09:04)
--- NOTE | 2019-06-06 10:04 | CM.DPC ---
DCP: continued: case received and reviewed EMR for last few days. Is noted that a d/c to home plan may involve HHS with PT/OT. PT/OT has not been seeing pt here so checked in with RN Nancy who reports that pt is doing fine from mobility standpoint and has just taken a shower this morning. She sees no need for that involvement. P: check in with pt and follow on his d/c planning needs. NGT is out. Diet is advancing slowly. Pt is going to need outpt followup with urology for a ? mass. PCP: Dr. Vasques in out of town...his partners at [facility] are following. Dr. Ochoa saw pt today.
--- NOTE | 2019-06-06 11:46 | DIET.PN ---
Addendum entered by Ria Mahajan 06/07/19 11:17: Please note Severe not Moderate Acute on Chronic PCM. Nutrition Diagnosis: Severe Acute on Chronic PCM r/t poorly managed colitis and general GI distress aeb <75% EER for 2mo, debilitating N/V/D occurring regularly for past year, moderate reduced subcutaneous fat body wide, BMI 20.8 (low for age). Original Note: Dietary Progress Note Assessment: F/u for diet education re: gastritis and colitis. Pt has been advanced to full liquid diet, however pt mostly avoiding dairy to manage colitis. Tolerated clear liquid diet c good intake this am. HT: 170.1cm WT: 62.4kg BMI:21.6 (low) Labs: A1c 5.9 (h), BG 135-184, AST/ALT/BILI all high re: Hep C, Alb 3.1, PSA 8.39 (H) MNA: 5 malnourished Armando: 18 Nutrition Diagnosis: Moderate Acute on Chronic PCM r/t poorly managed colitis and general GI distress aeb <75% EER for 2mo, debilitating N/V/D occurring regularly for past year, moderate reduced subcutaneous fat body wide, BMI 20.8 (low for age). Interventions: 1. discussed pt can request items from clear liquid diet on full liquid tray if fearful of dairy effects on system. 2. Educated pt on home diet reccs for gastritis and UC using handout. Pt will share handout c helper who does shopping. Has buffalo roast at home, will have helpers cook it in crockpot c skinless carrots and potatoes per reccs. Diet Order: fulls EER: 1850kcal, 72g PRO (1.2g/kg maln), 1.8L fluids Monitoring/Evaluations: I&Os, wt
[2019-06-06 12:12] LABS: Hematocrit 35.5 % (41-53); Hemoglobin 12.6 g/dL (13.5-17.5)
--- NOTE | 2019-06-06 20:50 | PM.PN.1 ---
Subjective Subjective Date Patient Seen: 06/06/19 Time Patient Seen: 07:14 Interval history: Patient is tolerating clears this morning and wondering if he can advance to full liquid. He tells me that he has cupboards of full liquid diet food at home since he has had the presumed colitis. His abdominal pain is more manageable and he is not requiring as much pain medication. He is hopeful to be able to go home soon. Exam Vital Signs (past 8 hours): - 06/06/19 16:00 06/06/19 17:00 Temperature 98.4 F Pulse Rate 74 Respiratory Rate 18 Blood Pressure 144/86 H Pulse Oximetry 98 99 Oxygen Delivery Method Room Air Oxygen Flow Rate 0 Narrative Exam Narrative: General: Well-developed, thin, male, no acute distress Heart: Regular rate and rhythm Lungs: Clear to auscultation bilaterally, no wheezes, rales or rhonchi Abd: soft, bowel sounds present, mild tenderness across the lower abdomen Extremities: Warm and well perfused, no edema Objective Labs Result Diagrams: 06/06/19 12:00 06/06/19 04:46 Labs: Laboratory Results - last 24 hr 06/06/19 06/06/19 06/06/19 04:46 04:46 04:46 WBC 4.6 RBC 3.48 L Hgb 11.8 L Hct 33.2 L MCV 95.3 MCH 33.9 MCHC 35.6 RDW 13.1 Plt Count 140 L Neut % (Auto) 55.4 Lymph % (Auto) 28.5 [place] % (Auto) 13.3 Eos % (Auto) 2.0 Baso % (Auto) 0.8 Neut # (Auto) 2500 Lymph # (Auto) 1300 [place] # (Auto) 600 Eos # (Auto) 100 Baso # (Auto) 0 Sodium 138 Potassium 3.6 Chloride 107 Carbon Dioxide 26 BUN 7 L Creatinine 0.50 L Estimated GFR > 60.0 BUN/Creatinine Ratio 14.0 Glucose 148 H Calcium 8.4 Magnesium 1.7 06/06/19 12:00 WBC RBC Hgb 12.6 L Hct 35.5 L MCV MCH MCHC RDW Plt Count Neut % (Auto) Lymph % (Auto) [place] % (Auto) Eos % (Auto) Baso % (Auto) Neut # (Auto) Lymph # (Auto) [place] # (Auto) Eos # (Auto) Baso # (Auto) Sodium Potassium Chloride Carbon Dioxide BUN Creatinine Estimated GFR BUN/Creatinine Ratio Glucose Calcium Magnesium Assessment & Plan Assessment & Plan narrative: Abdominal pain. After CT scan, abdominal films, NG tube, EGD it appears that patient has a gastritis and that his lower abdominal pain is likely related to his likey prostate cancer with capsule and what looks like rectal wall involvement. He also has had obstipation which we have been working on. Nausea has improved and he is tolerating a clear liquid diet. - continue PPI twice daily - will try mineral oil enema today, with reglan, senna, and miralax, he did pass some stool earlier today with an enema Hyperkalemia. Potassium replacement with K riders as he was not tolerating oral. Back in the 3's today. Magnesium reasonable. Recheck tomorrow. Weight loss. Moderate Protein calorie malnutrition. 22 pounds in the past 2.5 months. History of Atrial fibrillation and coronary artery disease. He has been in sinus while in house. Continue on oral metoprolol. IV. Maybe a candidate for long-term anticoagulation. Although at this point would make me concerned because of recent bleeding. Hypertension. Continue on oral lisinopril and metoprolol Chronic back pain. Restart on oxycodone. [facility] the hydromorphone for severe pain. Prostate mass. Probable prostate cancer. Based on recent MRI scan. Patient has been given the results. He is aware of this. Knows that he needs to follow up with Urology as an outpatient. Will see where he can get in soon. Code status: DNR DVT prophylaxis: SCD's Disposition and plan. He was tolerating full liquid diet this evening. If his pain is controlled and he is tolerating the full liquid would discharge home tomorrow. Quality VTE Deep Vein Thrombosis/Pulmonary Embolism Present on Admission: No
[2019-06-06] MEDS: SIMVASTATIN 40 MG TABLET PO (21:14)
[2019-06-07] MEDS: OXYCODONE IR 5 MG TABLET 10 MG PO ×3 (00:15→11:15)
[2019-06-07] MEDS: METOCLOPRAMIDE 10 MG/2 ML INJ IV ×2 (02:37→09:30)
[2019-06-07 04:07] VITALS: BP 112/60; PULSE 62; RESP 15; TEMP 37.1; O2SAT 97
[2019-06-07 06:45] LABS: Blood Urea Nitrogen 7 mg/dL (9-20); Calcium 9.1 mg/dL (8.4-10.2); Carbon Dioxide 26 mmol/L (22-32); Chloride 102 mmol/L (98-107); Estimated Glomerular Filt Rate > 60.0 mL/min (>60); Glucose 112 mg/dL (80-110); HEMOLYSIS < 15 (0-50); Potassium 3.4 mmol/L (3.4-5.1); Sodium 137 mmol/L (137-145)
[2019-06-07 07:16] LABS: Add Manual Diff / Slide Review NO; Basophils Absolute Auto 0 /uL (0-100); Basophils Percent Auto 0.9 % (0-2); Eosinophils Absolute Auto 100 /uL (0-450); Eosinophils Percent Auto 1.3 % (2-4); Hematocrit 35.9 % (41-53); Hemoglobin 12.7 g/dL (13.5-17.5); Lymphocytes Absolute Auto 1400 /uL (1100-4500); Lymphocytes Percent Auto 26.9 % (25-40); Mean Corpuscular HGB Conc 35.4 % (30-36); Mean Corpuscular Hemoglobin 33.5 PG (26-34); Mean Corpuscular Volume 94.9 fL (80-100); Monocytes Absolute Auto 600 /uL (0-900); Monocytes Percent Auto 11.1 % (3-14); Neutrophils Absolute Auto 3000 /uL (1500-7000); Neutrophils Percent Auto 59.8 % (50-75); Platelet Count 159 X10^3/uL (150-400); Red Blood Cell Count 3.79 X10^6/uL (4.5-5.9); Red Cell Distribution Width 13.1 % (11.6-14.8)
[2019-06-07 07:45] VITALS: O2SAT 97
[2019-06-07 08:00] VITALS: BP 148/97; PULSE 74; RESP 14; TEMP 36.6; O2SAT 98
--- NOTE | 2019-06-07 08:21 | CM.DPC ---
Addendum entered by Shaylee Zhao LPN 06/07/19 10:15: Received a call from pt's room during Team Rounds. Vm from pt's friend Mariaa who said she understood pt was to d/c this afternoon and she was going to be back between [phone] to pick pt up. Will follow prn. DC order is not yet in place. Likely pt will be back at noon clinic break to finalize the d/c...will confirm with RN caring for pt. Addendum entered by Shaylee Zhao LPN 06/07/19 08:32: Noted that colleage Radha had given [facility] a tentative referral. Sharon/[facility] updated now via vm on her cell # re the d/c plan and to release this referral. Original Note: DCP: continued: Spoke with Dr. Torres this morning re pt's POC. She reported he is doing well, is going to d/c to home today. She says she sees no need for HH services. Checked in with pt now (moved yesterday afternoon to 214). He states he is calling friends to pick him up. He will alert this DCPlanner is he has any trouble getting a ride but he says he does not anticipate this. P: home today. clinic followup planned.
[2019-06-07] MEDS: GABAPENTIN 100 MG CAPSULE PO ×2 (09:22→14:32)
[2019-06-07] MEDS: BUDESONIDE 3 MG CAP 6 MG PO (09:22)
[2019-06-07] MEDS: METOPROLOL IR 25 MG TABLET PO (09:23)
[2019-06-07] MEDS: PANTOPRAZOLE 40 MG VIAL IV (09:23)
[2019-06-07] MEDS: SENNOSIDES 8.6 MG TABLET PO (09:23)
[2019-06-07] MEDS: TAMSULOSIN 0.4 MG CAPSULE PO (09:23)
[2019-06-07] MEDS: CLOPIDOGREL 75 MG TABLET PO (09:23)
[2019-06-07] MEDS: LISINOPRIL 10 MG TABLET 20 MG PO (09:30)
--- NOTE | 2019-06-07 10:26 | P.DS_ITS ---
History of Present Illness History of Present Illness Chief complaint: pain,vomiting Narrative: Patient is a 63 yo male who usually sees Dr. Dowell who has had long standing back pain on chronic narcotics presenting tonight with worsening abdominal pain, nausea and vomiting. This has been recurrent problem for him and his last visit to the ED was on 05/20. He saw [facility] earlier this weak to help figure out what is causing his pain. He tells me that he is constipated. He passes one golf ball size stool and has to help manually. He has been vomitting today. He tells me that he has had atrial fibrillation since he was a child. Has had about 3 episodes of this in the past week. Most of the time he is in sinus. He has not had any shortness of breath. He has not had fever or chills. 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 Started him on budesonide. Discussed treatment for his hepatitis C. Recommend EGD and colonoscopy as soon as can be scheduled here in [place]. Discharge Providers Provider Date of admission: 06/01/19 17:35 Discharge Date: 06/07/19 Primary care physician: Khang Dowell MD Consults: 06/01/19 22:22 Consult to Material Stress Tester Routine Comment: 06/02/19 09:00 Consult to Dietitian, Adult Routine Comment: Reason For Exam: Malnourished 06/03/19 08:57 Consult to General Surgery Routine Comment: Consulting Provider: Rico Massey Reason for consultation: blood from NG tube Has provider been notified: No Discharge provider: Niki Torres DO Summary Hospital Course Discharge Diagnosis: Obstipation Abdominal pain Gastritis Prostate nodule highly likely malignant hypretension Sever protein calorie malnutrition Chronic back pain hypokalemia resolved tachycardia resolved Upper GI bleed resolved Hospital Course: Abdominal pain. After CT scan, abdominal films, NG tube, EGD it appears that patient has a gastritis and that his lower abdominal pain is likely related to his prostate lesion with capsule and rectal wall involvement. He also has had obstipation which has been improving slowly. Nausea has improved and he is tolerating a full liquid diet which was what he was eating at admission secondary to his abdominal pain. Will continue PPI twice daily Continue with reglan, senna, and miralax. Enemas have not been effective. Hypokalemia. Potassium replacement with K riders as he was not tolerating oral. Magnesium reasonable. Has been stable. Weight loss. Severe Protein calorie malnutrition. 22 pounds in the past 2.5 months. History of Atrial fibrillation and coronary artery disease. He has been in sinus while in house. He received IV metoprolol until he was able to tolerate oral. He currently has a normal rate and in sinus rhythm. Maybe a candidate for long- term anticoagulation. Although at this point would make me concerned because of recent bleeding. Hypertension. Continue on oral lisinopril and metoprolol Chronic back pain. has done well with oxycodone. Prostate mass likely malignant with invasion of the seminal vesicle and possibly the rectal wall contributing to his pain. Urology consult [facility]BY as outpatient. Code status: DNR DVT prophylaxis: SCD's Status at Discharge Cognitive/behavioral status at discharge: oriented Functional status at discharge: independent ambulation Overall status at discharge: patient is progressing back to baseline Time Spent with Patient Time spent: Greater than 30 minutes Exam Vital Signs (past 8 hours): - 06/07/19 04:07 06/07/19 07:45 06/07/19 08:00 Temperature 98.8 F 97.9 F Pulse Rate 62 74 Respiratory Rate 15 14 Blood Pressure 112/60 148/97 H Pulse Oximetry 97 97 98 Oxygen Delivery Method Room Air Oxygen Flow Rate 0 Narrative Exam Narrative: General: Well-developed, thin, male, no acute distress Heart: Regular rate and rhythm Lungs: Clear to auscultation bilaterally, no wheezes, rales or rhonchi Abd: soft, bowel sounds present, mild tenderness across the lower abdomen Extremities: Warm and well perfused, no edema Objective Labs Result Diagrams: 06/07/19 06:11 06/07/19 06:11 Labs: Laboratory Results - last 24 hr 06/06/19 06/07/19 06/07/19 12:00 06:11 06:11 WBC 5.0 RBC 3.79 L Hgb 12.6 L 12.7 L Hct 35.5 L 35.9 L MCV 94.9 MCH 33.5 MCHC 35.4 RDW 13.1 Plt Count 159 Neut % (Auto) 59.8 Lymph % (Auto) 26.9 [place] % (Auto) 11.1 Eos % (Auto) 1.3 L Baso % (Auto) 0.9 Neut # (Auto) 3000 Lymph # (Auto) 1400 [place] # (Auto) 600 Eos # (Auto) 100 Baso # (Auto) 0 Sodium 137 Potassium 3.4 Chloride 102 Carbon Dioxide 26 BUN 7 L Creatinine 0.50 L Estimated GFR > 60.0 BUN/Creatinine Ratio 14.0 Glucose 112 H Calcium 9.1 Discharge Plan Discharge Plan Patient Disposition: Home Discharge Med Rec/Prescriptions Prescriptions: New sennosides [senna] 8.6 mg Tablet 8.6 mg PO BID Qty: 30 RF: 0 tamsulosin [Flomax] 0.4 mg Capsule 0.4 mg PO DAILY Qty: 30 RF: 0 metoclopramide HCl 10 mg tablet 10 mg PO QACHS Qty: 60 RF: 1 polyethylene glycol 3350 [Miralax] 17 gram/dose powder 17 gram PO DAILY Qty: 510 RF: 0 omeprazole 40 mg capsule,delayed release(DR/EC) 40 mg PO BID Qty: 60 RF: 1 Continued simvastatin 40 mg tablet 40 mg PO DAILY Qty: 30 RF: 0 cyclobenzaprine 5 mg tablet 5 mg PO TID PRN (Reason: Spasms) RF: 0 budesonide 3 mg capsule,delayed,extend.release 6 mg PO QAM Qty: 60 RF: 3 morphine 20 mg/5 mL (4 mg/mL) solution See Rx Instructions .ROUTE .COMPLEX PRN (Reason: severe pain) Qty: 100 RF: 0 lisinopril 20 mg tablet 20 mg PO DAILY Qty: 30 RF: 0 oxycodone 5 mg tablet 5 - 10 mg PO Q4H PRN (Reason: pain) RF: 0 clopidogrel [Plavix] 75 mg tablet 75 mg PO DAILY RF: 0 metoprolol tartrate 50 mg tablet 50 mg PO BID RF: 0 ondansetron 4 mg tablet,disintegrating 4 mg PO Q6H PRN (Reason: Nausea) RF: 0 Discontinued ibuprofen [Advil] 200 mg tablet 200 mg PO BID RF: 0 Follow up/Referrals: Khang Dowell MD [Primary Care Provider] - 06/14/19 11:45 am (appt:06/14 @ 11:45 with a 11:30 check in for appointment with dr dowell [phone]) Provider Discharge Instructions Diet: Diet as Tolerated and Full Liquid Visit Report/Discharge Packet Stand Alone Forms: EGD Result: [facility] Discharge Data Primary Care Provider: Khang Dowell VTE Deep Vein Thrombosis/Pulmonary Embolism Present on Admission: No
--- NOTE | 2019-06-07 14:39 | PC.NURSE ---
Day shift: Pt left unit at approx 1440 in WC to home w/ friend in car. Taken out to that car by ANSWERING SERVICE AGENT. Paperwork signed and all questions answered. scrips sent to Pt's pharmacy. Pt has all personal belongings.
== END 2019-06-07 14:41 | disposition home or self-care (01) | DRG 947 ==
LOC: ED 11:11 → AC 17:39 → ICU 06-04 07:35 → AC 06-06 22:38
PROVIDERS: Family Medicine; Surgery; Admitting Provider Family Medicine; Emergency Provider Emergency Medicine; PCP Internal Medicine; Visit Provider Family Medicine
PROC: 0DJ08ZZ Inspection of Upper Intestinal Tract, Via Natural or Artificial Opening Endoscopic (ICD-10-PCS; CPT 43235; principal; 2019-06-04 11:45)
DX: G89.3 Neoplasm related pain (acute) (chronic) (principal); K29.71 Gastritis, unspecified, with bleeding; E43 Unspecified severe protein-calorie malnutrition; Q43.3 Congenital malformations of intestinal fixation; I47.1 Supraventricular tachycardia; C78.5 Secondary malignant neoplasm of large intestine and rectum; C63.7 Malignant neoplasm of other specified male genital organs; I48.91 Unspecified atrial fibrillation; B18.2 Chronic viral hepatitis C; K59.09 Other constipation; I25.10 Atherosclerotic heart disease of native coronary artery without angina pectoris; E78.2 Mixed hyperlipidemia; Z87.891 Personal history of nicotine dependence; E87.6 Hypokalemia
CPT/HCPCS: 36415; 36591; 43235; 71045; 72197; 74018; 74022; 74177; 80048; 80053; 81003; 82550; 83036; 83690; 83735; 84153; 84484; 85014; 85018; 85025; 85610; 85651; 85730; 86140; 86850; 86900; 86901; 87797; 93005; 96361; 96374; 96375; 96376; 99152; 99231; 99232; 99233; 99239; 99284; 99285; A9579; C9113; J1170; J1650; J1885; J2060; J2250; J2405; J2765; J3010; J3480; J7050; Q9967

== ENCOUNTER 2019-06-14 09:48 | Emergency (ER) | payer OTHER, SELFPAY ==
[2019-06-01 21:00] VITALS: BMI 20.9
[2019-06-14 09:57] VITALS: BP 196/95; PULSE 56; RESP 16; TEMP 36.8; O2SAT 100
--- NOTE | 2019-06-14 10:04 | ED.ABDPAIN ---
HPI - Abdominal Pain General Chief Complaint: Abdominal Pain Stated Complaint: nausea/vomiting x2 days/was in hospital Time Seen by Provider: 06/14/19 10:03 Source: patient Mode of arrival: Wheelchair Limitations: no limitations History of Present Illness HPI narrative: Patient is a 63 year male who presents with chronic ongoing abdominal pain worsened this morning. He had a hard bowel movement this morning and intense lower abdominal pain. He also has some left upper quadrant pain radiating into his chest at times. He feels nauseous and is vomiting. He actually was just discharged from the hospital on 06/07/2019 he was supposed to have a follow-up appointment with his PCP today at 11:00 a.m. however due to severe pain unable to make that appointment. He has not passed out he denies dizziness or lightheadedness. MD complaint: abdominal pain Related Data Home Medications Medication Instructions Recorded Confirmed cyclobenzaprine 5 mg tablet 5 mg PO TID PRN tab 03/20/19 06/01/19 clopidogrel [Plavix] 75 mg PO DAILY 06/01/19 06/14/19 ondansetron 4 mg PO Q6H PRN 06/01/19 06/14/19 oxycodone 5 - 10 mg PO Q4H PRN 06/01/19 06/14/19 metoclopramide HCl 10 mg PO ACHS 06/14/19 06/14/19 metoprolol tartrate 50 mg PO BID 06/14/19 06/14/19 Previous Rx's Medication Instructions Recorded budesonide 3 mg 6 mg PO QAM #60 each 03/20/19 capsule,delayed,extended release morphine 20 mg/5 mL (4 mg/mL) oral See Rx Instructions .ROUTE 03/20/19 solution .COMPLEX PRN #100 ml lisinopril 20 mg tablet 20 mg PO DAILY #30 tab 05/21/19 simvastatin 40 mg tablet 40 mg PO DAILY #30 tab 06/02/19 omeprazole 40 mg PO BID #60 cap 06/07/19 polyethylene glycol 3350 [Miralax] 17 gram PO DAILY #510 gram 06/07/19 sennosides [senna] 8.6 mg PO BID #30 tab 06/07/19 tamsulosin [Flomax] 0.4 mg PO DAILY #30 cap 06/07/19 Allergies Allergy/AdvReac Type Severity Reaction Status Date / Time No Known Drug Allergies Allergy Verified 05/21/19 09:35 Review of Systems Review of Systems Narrative: GENERAL: Denies chills, fatigue, malaise, fever, sweats, travel HEENT: Denies sinus pain, ear pain, sore throat, difficulty swallowing, neck pain RESPIRATORY: Denies dyspnea, cough, wheezing, hemoptysis, sputum. CARDIOVASCULAR: Denies chest pain, palpitations, orthopnea, edema GASTROINTESTINAL: See HPI : Denies dysuria, frequency, incontinence, hematuria, urinary retention, flank pain. MUSCULOSKELETAL: Denies weakness, joint pain, or bony pain SKIN: No rash, no erythema, no pruritus NEUROLOGIC: Denies weakness, dizziness, headache, numbness, change in speech, confusion PSYCHIATRIC: No concerning psychosocial issues. 12 point review of systems is negative except for those stated above and HPI [facility] Medical History Cardiac arrhythmia (Chronic) Chronic hepatitis (Chronic) Coronary artery disease involving [place] coronary artery of [place] heart without angina pectoris (Chronic) Diverticular disease (Chronic) Diverticulosis of large intestine (Chronic 03/31/12) Essential hypertension (Chronic) Hepatitis C (Chronic) Kidney stones (Resolved) Mixed hyperlipidemia (Chronic) Surgical History History of angioplasty (~12/2006) Hx of inguinal hernia surgery (Resolved ~09/20/08) Hx of inguinal hernia surgery (Resolved ~03/07/14) Status post laminectomy Social History marital status: unmarried,single number of children: 3 household members: none lives independently: Yes caregiver/support person: No housing: house pets and animals: No education level: high school (11th grade) occupational status: 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) Smoking Status: Former smoker Tobacco: How many years used: 56 (On and off.) Smokeless tobacco user: other (Marijuana) quit status: has quit before (On and off.) second hand exposure: Yes (On farm[place]/Boat.) alcohol intake: current substance use type: does not use and marijuana (On and off.) Social History marital status: unmarried,single number of children: 3 household members: none lives independently: Yes caregiver/support person: No housing: house pets and animals: No education level: high school (11th grade) occupational status: 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 RESPIRATORY: Breath sounds equal bilaterally, no wheezes rales or rhonchi. ABDOMEN: Soft, tender lower abdominal pain no guarding no rebound minimal epigastric pain EXTREMITIES: Normal range of motion, no clubbing or edema. Neurovascularly intact NEUROLOGICAL: Alert and oriented x4.Normal gait and speech. Cranial nerves II through XII grossly intact. SKIN: Warm, dry, no laceration, no petechiae, no rashes or lesions. Course Orders Ordered: ED Orders 06/14/19 10:11 Complete Blood Count AUTO DIFF Stat 06/14/19 10:18 EKG-12 Lead Stat 06/14/19 10:35 Comprehensive Metabolic Panel Stat Lipase Stat Troponin & CK Cardiac Panel Stat 06/14/19 11:45 Urine Microscopic Stat 06/14/19 12:55 XR abdomen min 2V Stat Discontinued Medications Hydromorphone HCl (Dilaudid) 1 mg IV Q15MIN PRN PRN Reason: Pain, Severe (7-10) Hydromorphone HCl (Dilaudid) 1 mg IV NOW ONE Stop: 06/14/19 11:40 Last Admin: 06/14/19 11:48 Dose: 1 mg Documented by: CLEMENT Hydromorphone HCl (Dilaudid) 0.5 mg IV NOW ONE Stop: 06/14/19 12:56 Last Admin: 06/14/19 13:14 Dose: 0.5 mg Documented by: LEONEL Sodium Chloride (Normal Saline 0.9%) 1,000 mls @ 1,000 mls/hr IV CONT KAITLIN Last Infusion: 06/14/19 13:13 Dose: 1,000 mls/hr Documented by: Admin: 06/14/19 11:48 Dose: 1,000 mls/hr Documented by: CLEMENT Ondansetron HCl (Zofran) 4 mg IV NOW ONE Stop: 06/14/19 10: Last Admin: 06/14/19 11:48 Dose: 4 mg Documented by: CLEMENT Consultations Consultation #1: Dr. Vasques, PCP updated patient's symptoms test results. At this time blood work and x-ray are reassuring. He has consultation with she I scheduled soon he definitely needs a colonoscopy. He has appointment with Urology tomorrow for possible prostate cancer. He will follow up. Time: 12:23 Vital Signs Vital signs: Vital Signs - 8 hr 06/14/19 11:33 06/14/19 12:02 06/14/19 13:18 Temperature Pulse Rate 56 L 55 L 68 Respiratory Rate 11 L 17 16 Blood Pressure Blood Pressure [Left Arm] 198/84 H 186/82 H 193/89 H Pulse Oximetry 100 99 100 06/14/19 14:30 06/14/19 15:18 Temperature 97.4 F L Pulse Rate 75 75 Respiratory Rate 18 16 Blood Pressure 122/64 Blood Pressure [Left Arm] 126/75 Pulse Oximetry 98 97 MDM - Abdominal Pain Lab Data Attestation: I reviewed the patient's lab results. Result diagrams: 06/14/19 10:11 06/14/19 10:35 Labs: Lab Results 06/14/19 06/14/19 06/14/19 Range/Units 10:11 10:35 11:45 WBC 6.4 (4.5-11.0) X10^3/uL RBC 4.53 (4.5-5.9) X10^6/uL Hgb 15.4 (13.5-17.5) g/dL Hct 43.7 (41-53) % MCV 96.4 (80-100) fL MCH 33.9 (26-34) PG MCHC 35.2 (30-36) % RDW 13.8 (11.6-14.8) % Plt Count 187 (150-400) X10^3/uL Neut % (Auto) 81.5 H (50-75) % Lymph % (Auto) 9.4 L (25-40) % Owen % (Auto) 8.3 (3-14) % Eos % (Auto) 0.2 L (2-4) % Baso % (Auto) 0.6 (0-2) % Neut # (Auto) 5200 (7778-1090) /uL Lymph # (Auto) 600 L (5364-0187) /uL Owen # (Auto) 500 (0-900) /uL Eos # (Auto) 0 (0-450) /uL Baso # (Auto) 0 (0-100) /uL Sodium 139 (137-145) mmol/L Potassium 3.5 (3.4-5.1) mmol/L Chloride 99 (98-107) mmol/L Carbon Dioxide 30 (22-32) mmol/L BUN 8 L (9-20) mg/dL Creatinine 0.60 L (0.66-1.25) mg/dL Estimated GFR > 60.0 (>60) mL/min BUN/Creatinine Ratio 13.3 (6-22) Glucose 185 H (80-110) mg/dL Calcium 9.2 (8.4-10.2) mg/dL Total Bilirubin 1.2 (0.2-1.3) mg/dL AST 200 H (17-59) IU/L ALT 188 H (21-72) IU/L Alkaline Phosphatase 118 (38-126) U/L Total Creatine Kinase 44 L (55-170) U/L CK-MB (CK-2) TNP CK-MB (CK-2) Rel Index TNP Troponin I < 0.012 (0.01-0.034) ng/mL Total Protein 7.6 (6.3-8.2) g/dL Albumin 4.0 (3.5-5.0) g/dL Globulin 3.6 (1.7-4.1) g/dL Albumin/Globulin Ratio 1.1 (1.0-2.8) Lipase 38 (23-300) U/L Urine RBC None seen (0-5/HPF) Urine WBC None seen (0-5/HPF) Urine Bacteria None seen (None) Ur Culture Indicated? Cult not indicated Micro UA Comment Microscopic normal Point of care testing: Urine Dip Bedside Urine Glucose Negative Bedside Urine Bilirubin - Negative Bedside Urine Ketone + 15 Urine Specific [place] 1.015 Bedside Urine Occult Blood - Negative Bedside Urine pH 8.0 Bedside Urine Protein - Negative Bedside Urine Urobilinogen - Negative Bedside Urine Nitrite - Negative Bedside Urine Leukocytes - Negative Esterase Imaging Data Abdominal x-ray: Radiologist's impression: PROCEDURE: XR ABDOMEN MIN 2V INDICATIONS: pain TECHNIQUE: 2 views of the abdomen were acquired. COMPARISON: [facility], , XR ABDOMEN 1V, 06/03/2019, 11:52. FINDINGS: Surgical changes and devices: None. Bowel: No pneumoperitoneum. The bowel gas pattern is normal. Soft tissues: No masses; visualized solid organ contours appear normal in size. No suspicious abdominal calcifications. There may be a calcification involving the liver versus a diaphragmatic calcification. Bones: No suspicious bony abnormalities. Moderate degenerative changes of the spine are present. IMPRESSION: No bowel obstruction. Dictated by: Raghavendra Marcos M.D. on 06/14/2019 at 12:27 ECG Data Attestation: I personally reviewed and interpreted this ECG as follows: Prior ECG tracings: available for review Interpretation: Normal sinus rhythm rate 51 p.r. interval [address] changes no T-wave inversions. No changes from prior MDM Narrative Medical decision making narrative: Patient has chronic ongoing abdominal pain. He says that he did have some constipation he needed to be manually disimpacted before his discharge. He does not feel like he is constipated at this time. He is taking senna I talked to him about MiraLax and Dulcolax as well. He definitely needs a colonoscopy it appears as though during his admission he only had and EGD. He is given 2 doses of Dilaudid. He has not had any vomiting in the ED. X-ray did not show any evidence of obstruction. His appointment with Urology tomorrow. Dr. Vasques has been made aware of patient. Patient hesitant to go home head saying that he will be back.. However at this time it has no criteria for observation or admission. Discharge Plan Departure Patient Disposition: Home Clinical Impression: Abdominal pain Qualifiers: Abdominal location: left lower quadrant Qualified Code(s): R10.32 - Left lower quadrant pain Discharge Date/Time: 06/14/19 15:18 Instructions: DI for Abdominal Pain-Adult Activity Restrictions/Additional Instructions: *YOU HAVE BEEN DIAGNOSED WITH ABDOMINAL pain *WHAT TO DO: You need a colonoscopy this is not emergent you need to follow up with GI at [place]. I have spoken with Dr. Vasques today who agrees. You also need to see Urology in regards to her prostate tomorrow as previously scheduled *CONTINUE TO TAKE MEDICATIONS DIRECTED *FOLLOW UP WITH YOUR PRIMARY CARE PROVIDER IN 2-3 DAYS *RETURN TO ER IF YOU SHOULD HAVE increasing pain persistent vomiting OR ANY NEW, WORSENING OR CONCERNING SYMPTOMS Prescriptions: No Action simvastatin 40 mg tablet 40 mg PO DAILY Qty: 30 RF: 0 cyclobenzaprine 5 mg tablet 5 mg PO TID PRN (Reason: Spasms) RF: 0 budesonide 3 mg capsule,delayed,extend.release 6 mg PO QAM Qty: 60 RF: 3 morphine 20 mg/5 mL (4 mg/mL) solution See Rx Instructions .ROUTE .COMPLEX PRN (Reason: severe pain) Qty: 100 RF: 0 lisinopril 20 mg tablet 20 mg PO DAILY Qty: 30 RF: 0 oxycodone 5 mg tablet 5 - 10 mg PO Q4H PRN (Reason: pain) RF: 0 clopidogrel [Plavix] 75 mg tablet 75 mg PO DAILY RF: 0 ondansetron 4 mg tablet,disintegrating 4 mg PO Q6H PRN (Reason: Nausea) RF: 0 sennosides [senna] 8.6 mg Tablet 8.6 mg PO BID Qty: 30 RF: 0 tamsulosin [Flomax] 0.4 mg Capsule 0.4 mg PO DAILY Qty: 30 RF: 0 polyethylene glycol 3350 [Miralax] 17 gram/dose powder 17 gram PO DAILY Qty: 510 RF: 0 omeprazole 40 mg capsule,delayed release(DR/EC) 40 mg PO BID Qty: 60 RF: 1 metoprolol tartrate 50 mg tablet 50 mg PO BID RF: 0 metoclopramide HCl 10 mg tablet 10 mg PO ACHS RF: 0 Referrals: Khang Vasques MD [Primary Care Provider] -
[2019-06-14 10:27] LABS: Add Manual Diff / Slide Review NO; Basophils Absolute Auto 0 /uL (0-100); Basophils Percent Auto 0.6 % (0-2); Eosinophils Absolute Auto 0 /uL (0-450); Eosinophils Percent Auto 0.2 % (2-4); Hematocrit 43.7 % (41-53); Hemoglobin 15.4 g/dL (13.5-17.5); Lymphocytes Absolute Auto 600 /uL (1100-4500); Lymphocytes Percent Auto 9.4 % (25-40); Mean Corpuscular HGB Conc 35.2 % (30-36); Mean Corpuscular Hemoglobin 33.9 PG (26-34); Mean Corpuscular Volume 96.4 fL (80-100); Monocytes Absolute Auto 500 /uL (0-900); Monocytes Percent Auto 8.3 % (3-14); Neutrophils Absolute Auto 5200 /uL (1500-7000); Neutrophils Percent Auto 81.5 % (50-75); Platelet Count 187 X10^3/uL (150-400); Red Blood Cell Count 4.53 X10^6/uL (4.5-5.9); Red Cell Distribution Width 13.8 % (11.6-14.8); White Blood Cell Count 6.4 X10^3/uL (4.5-11.0)
[2019-06-14 10:56] LABS: Alanine Aminotransferase 188 IU/L (21-72); Albumin Globulin Ratio 1.1 (1.0-2.8); Alkaline Phosphatase 118 U/L (38-126); Aspartate Aminotransferase 200 IU/L (17-59); BUN Creatinine Ratio 13.3 (6-22); Bilirubin Total 1.2 mg/dL (0.2-1.3); Blood Urea Nitrogen 8 mg/dL (9-20); Calcium 9.2 mg/dL (8.4-10.2); Carbon Dioxide 30 mmol/L (22-32); Chloride 99 mmol/L (98-107); Creatine Kinase 44 U/L (55-170); Estimated Glomerular Filt Rate > 60.0 mL/min (>60); Globulin 3.6 g/dL (1.7-4.1); Glucose 185 mg/dL (80-110); HEMOLYSIS < 15 (0-50); Lipase 38 U/L (23-300); Potassium 3.5 mmol/L (3.4-5.1); Sodium 139 mmol/L (137-145); Total Protein 7.6 g/dL (6.3-8.2)
[2019-06-14 11:08] LABS: Troponin I < 0.012 ng/mL (0.01-0.034)
[2019-06-14 11:33] VITALS: BP 198/84; PULSE 56; RESP 11; O2SAT 100
[2019-06-14] MEDS: HYDROMORPHONE 1 MG INJ IV (11:48)
[2019-06-14] MEDS: ONDANSETRON 4 MG/2 ML INJ IV (11:48)
[2019-06-14] MEDS: SODIUM CHLORIDE 0.9% 1,000 ML 1000 ML IV (11:48)
[2019-06-14 12:02] VITALS: BP 186/82; PULSE 55; RESP 17; O2SAT 99
--- NOTE | 2019-06-14 12:55 | DI.RAD.S_ITS ---
PROCEDURE: XR ABDOMEN MIN 2V INDICATIONS: pain TECHNIQUE: 2 views of the abdomen were acquired. COMPARISON: [facility], , XR ABDOMEN 1V, 06/03/2019, 11:52. FINDINGS: Surgical changes and devices: None. Bowel: No pneumoperitoneum. The bowel gas pattern is normal. Soft tissues: No masses; visualized solid organ contours appear normal in size. No suspicious abdominal calcifications. There may be a calcification involving the liver versus a diaphragmatic calcification. Bones: No suspicious bony abnormalities. Moderate degenerative changes of the spine are present. IMPRESSION: No bowel obstruction. Dictated by: Raghavendra Marcos M.D. on 06/14/2019 at 12:27 Approved by: Raghavendra Marcos M.D. on 06/14/2019 at 12:30
[2019-06-14] MEDS: HYDROMORPHONE 0.5 MG INJ IV (13:14)
[2019-06-14 13:18] VITALS: BP 193/89; PULSE 68; RESP 16; O2SAT 100
[2019-06-14 13:23] LABS: Bacteria Urine None Seen; RBC Urine None Seen (0-5/HPF); WBC Urine None Seen (0-5/HPF)
[2019-06-14 13:38] LABS: Culture Indicated Urine Cult Not Indicated; Urine Comments Microscopic Normal
[2019-06-14 14:30] VITALS: BP 126/75; PULSE 75; RESP 18; O2SAT 98
[2019-06-14 15:18] VITALS: BP 122/64; PULSE 75; RESP 16; TEMP 36.3; O2SAT 97
== END 2019-06-14 15:18 | disposition home or self-care (01) ==
PROVIDERS: Emergency Provider Emergency Medicine; PCP Internal Medicine
DX: R10.32 Left lower quadrant pain (principal); R07.9 Chest pain, unspecified; R11.2 Nausea with vomiting, unspecified
CPT/HCPCS: 36415; 74019; 80053; 81003; 81015; 82550; 83690; 84484; 85025; 93005; 96361; 96374; 96375; 96376; 99284; 99285; J1170; J2405

== ENCOUNTER 2019-06-16 08:48 | Observation (INO) | payer OTHER, SELFPAY ==
[2019-06-01 21:00] VITALS: BMI 20.9
[2019-06-16] VITALS (15 sets, daily range): BP systolic 102–152; BP diastolic 71–101; PULSE 62–129; RESP 12–21; TEMP 36.3–37; O2SAT 98–100; BMI 19.5
--- NOTE | 2019-06-16 08:44 | ED.ARRPALP ---
HPI - Arrhythmia/Palpitations General Chief Complaint: Arrhythmia/Palpitations Stated Complaint: Rapid HR Time Seen by Provider: 06/16/19 08:48 Source: patient, EMS and old records reviewed Mode of arrival: EMS Limitations: no limitations History of Present Illness HPI narrative: Patient is a 63-year-old male presenting with heart palpitations. He has a history of paroxysmal atrial fibrillation possibly, he states he does take metoprolol. He was here on chronic abdominal pain. He possibly has prostate cancer he was seen by Urology yesterday. He states 2 nights ago when he was sent home from the ER he felt his heart beating rapidly multiple times it was able to slow down some however this morning with quite fast. EMS arrived and thought that it was SVT and they gave him 150 mg of amiodarone. Upon arrival to the ER he appears to be in atrial fibrillation with RVR and heart rate in the 140s. MD complaint: rapid heart beat Duration: constant Context: occurred during rest Related Data Home Medications Medication Instructions Recorded Confirmed cyclobenzaprine 5 mg tablet 5 mg PO TID PRN tab 03/20/19 06/16/19 clopidogrel [Plavix] 75 mg PO DAILY 06/01/19 06/16/19 ondansetron 4 mg PO Q6H PRN 06/01/19 06/16/19 oxycodone 5 - 10 mg PO Q4H PRN 06/01/19 06/16/19 metoclopramide HCl 10 mg PO ACHS 06/14/19 06/16/19 metoprolol tartrate 25 mg PO BID 06/14/19 06/16/19 Previous Rx's Medication Instructions Recorded budesonide 3 mg 6 mg PO QAM #60 each 03/20/19 capsule,delayed,extended release morphine 20 mg/5 mL (4 mg/mL) oral See Rx Instructions .ROUTE 03/20/19 solution .COMPLEX PRN #100 ml lisinopril 20 mg tablet 20 mg PO DAILY #30 tab 05/21/19 simvastatin 40 mg tablet 40 mg PO DAILY #30 tab 06/02/19 omeprazole 40 mg PO BID #60 cap 06/07/19 polyethylene glycol 3350 [Miralax] 17 gram PO DAILY #510 gram 06/07/19 sennosides [senna] 8.6 mg PO BID #30 tab 06/07/19 tamsulosin [Flomax] 0.4 mg PO DAILY #30 cap 06/07/19 Allergies Allergy/AdvReac Type Severity Reaction Status Date / Time No Known Drug Allergies Allergy Verified 06/16/19 08:45 Review of Systems Review of Systems ROS Unobtainable: All systems reviewed & are unremarkable except as noted in HPI and below Constitutional Constitutional: Denies chills, Denies fever(s), Denies lethargy and Denies weakness Eyes Eyes: Denies change in vision, Denies eye discharge, Denies irritation and Denies loss of vision ENT Ears, Nose, Mouth, and Throat: Denies change in voice, Denies neck pain and Denies sore throat Cardiovascular Cardiovascular: Reports as per HPI, Reports chest pain, Reports diaphoresis, Reports rapid heart rate, Denies dyspnea and Denies dyspnea on exertion Respiratory Respiratory: Denies cough, Denies dyspnea, Denies dyspnea on exertion and Denies wheezing Gastrointestinal Gastrointestinal: Reports abdominal pain Genitourinary Genitourinary: Denies hematuria, Denies flank pain, Denies urinary incontinence and Denies urinary urgency Musculoskeletal Musculoskeletal: Denies neck pain Integumentary/Breasts Skin/Breast: Denies pruritus, Denies erythema, Denies rash and Denies wounds Neurologic Neurologic: Denies loss of vision and Denies weakness Allergic/Immunologic Allergic/Immunologic: Denies wheezing [facility] Medical History Cardiac arrhythmia (Chronic) Chronic hepatitis (Chronic) Coronary artery disease involving [place] coronary artery of [place] heart without angina pectoris (Chronic) Diverticular disease (Chronic) Diverticulosis of large intestine (Chronic 03/31/12) Essential hypertension (Chronic) Hepatitis C (Chronic) Kidney stones (Resolved) Mixed hyperlipidemia (Chronic) Surgical History History of angioplasty (~12/2006) Hx of inguinal hernia surgery (Resolved ~09/20/08) Hx of inguinal hernia surgery (Resolved ~03/07/14) Status post laminectomy Social History marital status: unmarried,single number of children: 3 household members: none lives independently: Yes caregiver/support person: No housing: house pets and animals: No education level: high school (11th grade) occupational status: 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 ABDOMEN: Soft, diffusely tender across the lower abdomen no guarding or rebound s EXTREMITIES: Normal range of motion, no clubbing or edema. Neurovascularly intact NEUROLOGICAL: Alert and oriented x4.Normal gait and speech. SKIN: Warm, dry, no laceration, no petechiae, no rashes or lesions. Course Orders Ordered: ED Orders 06/16/19 08:35 EKG-12 Lead Stat 06/16/19 08:43 XR chest 1V Stat 06/16/19 09:13 Complete Blood Count AUTO DIFF Stat Comprehensive Metabolic Panel Stat Magnesium Stat Partial Thromboplastin Time Stat Prothrombin Time INR Stat Thyroid Stimulating Hormone Stat Troponin & CK Cardiac Panel Stat 06/16/19 09:15 EKG-12 Lead Stat 06/16/19 09:49 US abdomen limited Stat Budesonide (Entocort Ec) 6 mg PO DAILY [facility] Calcium Carbonate (Tums) 1,000 mg PO Q4HR PRN PRN Reason: Dyspepsia Clopidogrel Bisulfate (Plavix) 75 mg PO DAILY [facility] Cyclobenzaprine HCl (Flexeril) 5 mg PO TID PRN PRN Reason: Spasms Sodium Chloride (Normal Saline 0.9%) 1,000 mls @ 100 mls/hr IV CONT KAITLIN Last Admin: 06/16/19 12:45 Dose: Not Given Documented by: CMCFARL Lisinopril (Zestril) 20 mg PO DAILY [facility] Metoclopramide HCl (Reglan) 10 mg PO ACHS [facility] Metoprolol Tartrate (Lopressor) 25 mg PO BID [facility] Ondansetron HCl (Zofran) 4 mg IV Q8HR PRN PRN Reason: Nausea And Vomiting Oxycodone HCl (Percolone) 5 mg PO Q4H PRN PRN Reason: pain Oxycodone HCl (Percolone) 10 mg PO Q4HR PRN PRN Reason: Pain, Severe (7-10) Last Admin: 06/16/19 13:00 Dose: 10 mg Documented by: CMCFARL Pantoprazole Sodium (Protonix) 40 mg PO 0600,2100 [facility] Polyethylene Glycol (Miralax) 17 gm PO DAILY [facility] Sennosides (Senna) 8.6 mg PO BID [facility] Simvastatin (Zocor) 40 mg PO DAILY [facility] Tamsulosin HCl (Flomax) 0.4 mg PO DAILY [facility] Discontinued Medications Diltiazem HCl (Cardizem) 10 mg IV NOW ONE Stop: 06/16/19 08:43 Last Admin: 06/16/19 08:45 Dose: 10 mg Documented by: MEISENB Hydromorphone HCl (Dilaudid) 1 mg IV NOW ONE Stop: 06/16/19 10:03 Last Admin: 06/16/19 10:16 Dose: 1 mg Documented by: MEISENB Sodium Chloride (Normal Saline 0.9%) 1,000 mls @ 150 mls/hr IV CONT KAITLIN Last Infusion: 06/16/19 11:19 Dose: 150 mls/hr Documented by: Admin: 06/16/19 09:02 Dose: 150 mls/hr Documented by: ZAKI Ondansetron HCl (Zofran) 4 mg IV NOW ONE Stop: 06/16/19 10:06 Last Admin: 06/16/19 10:16 Dose: 4 mg Documented by: ZAKI Vital Signs Vital signs: Vital Signs - 8 hr 06/16/19 08:40 06/16/19 09:00 06/16/19 09:10 Temperature 97.4 F L Pulse Rate 129 H 117 H 99 H Respiratory Rate 16 12 21 Blood Pressure 152/101 H Blood Pressure [Right Arm] 117/86 Pulse Oximetry 100 100 100 06/16/19 09:15 06/16/19 09:30 06/16/19 10:00 Temperature Pulse Rate 105 H 105 H 100 H Respiratory Rate 18 15 16 Blood Pressure Blood Pressure [Right Arm] 139/87 121/82 102/81 Pulse Oximetry 100 100 100 06/16/19 10:15 06/16/19 10:33 06/16/19 11:03 Temperature Pulse Rate 98 H 103 H 87 Respiratory Rate 16 15 15 Blood Pressure Blood Pressure [Right Arm] 102/81 114/71 104/86 Pulse Oximetry 100 98 100 06/16/19 11:30 Temperature 98 F Pulse Rate 79 Respiratory Rate 14 Blood Pressure 124/77 Blood Pressure [Right Arm] Pulse Oximetry 99 MDM - Arrhythmia/Palpitations Lab Data Attestation: I reviewed the patient's lab results. Result diagrams: 06/16/19 09:13 06/16/19 09:13 Labs: Lab Results 06/16/19 06/16/19 06/16/19 Range/Units 09:13 09:13 09:13 WBC 10.9 D (4.5-11.0) X10^3/uL RBC 5.12 (4.5-5.9) X10^6/uL Hgb 17.3 (13.5-17.5) g/dL Hct 49.9 (41-53) % MCV 97.5 (80-100) fL MCH 33.9 (26-34) PG MCHC 34.8 (30-36) % RDW 13.9 (11.6-14.8) % Plt Count 189 (150-400) X10^3/uL Neut % (Auto) 79.2 H (50-75) % Lymph % (Auto) 8.1 L (25-40) % Dickson % (Auto) 11.7 (3-14) % Eos % (Auto) 0.3 L (2-4) % Baso % (Auto) 0.7 (0-2) % Neut # (Auto) 8600 H (5288-3675) /uL Lymph # (Auto) 900 L (3612-2421) /uL Dickson # (Auto) 1300 H (0-900) /uL Eos # (Auto) 0 (0-450) /uL Baso # (Auto) 100 (0-100) /uL PT 11.8 (10.1-12.7) SECONDS INR 1.0 (0.9-1.3) APTT 27 (26.4-36.2) SECONDS Sodium 137 (137-145) mmol/L Potassium 4.1 (3.4-5.1) mmol/L Chloride 98 (98-107) mmol/L Carbon Dioxide 24 (22-32) mmol/L BUN 18 (9-20) mg/dL Creatinine 0.80 (0.66-1.25) mg/dL Estimated GFR > 60.0 (>60) mL/min BUN/Creatinine Ratio 22.5 H (6-22) Glucose 200 H (80-110) mg/dL Calcium 9.8 (8.4-10.2) mg/dL Magnesium (1.6-2.3) mg/dL Total Bilirubin 2.3 H (0.2-1.3) mg/dL AST 327 H (17-59) IU/L ALT 245 H (21-72) IU/L Alkaline Phosphatase 99 (38-126) U/L Total Creatine Kinase (55-170) U/L CK-MB (CK-2) CK-MB (CK-2) Rel Index Troponin I (0.01-0.034) ng/mL Total Protein 8.4 H (6.3-8.2) g/dL Albumin 4.4 (3.5-5.0) g/dL Globulin 4.0 (1.7-4.1) g/dL Albumin/Globulin Ratio 1.1 (1.0-2.8) TSH (0.47-4.68) uIU/mL 06/16/19 06/16/19 Range/Units 09:13 09:13 WBC (4.5-11.0) X10^3/uL RBC (4.5-5.9) X10^6/uL Hgb (13.5-17.5) g/dL Hct (41-53) % MCV (80-100) fL MCH (26-34) PG MCHC (30-36) % RDW (11.6-14.8) % Plt Count (150-400) X10^3/uL Neut % (Auto) (50-75) % Lymph % (Auto) (25-40) % Dickson % (Auto) (3-14) % Eos % (Auto) (2-4) % Baso % (Auto) (0-2) % Neut # (Auto) (7176-3064) /uL Lymph # (Auto) (3932-2545) /uL Dickson # (Auto) (0-900) /uL Eos # (Auto) (0-450) /uL Baso # (Auto) (0-100) /uL PT (10.1-12.7) SECONDS INR (0.9-1.3) APTT (26.4-36.2) SECONDS Sodium (137-145) mmol/L Potassium (3.4-5.1) mmol/L Chloride (98-107) mmol/L Carbon Dioxide (22-32) mmol/L BUN (9-20) mg/dL Creatinine (0.66-1.25) mg/dL Estimated GFR (>60) mL/min BUN/Creatinine Ratio (6-22) Glucose (80-110) mg/dL Calcium (8.4-10.2) mg/dL Magnesium 2.0 (1.6-2.3) mg/dL Total Bilirubin (0.2-1.3) mg/dL AST (17-59) IU/L ALT (21-72) IU/L Alkaline Phosphatase (38-126) U/L Total Creatine Kinase 37 L (55-170) U/L CK-MB (CK-2) TNP CK-MB (CK-2) Rel Index TNP Troponin I 0.026 (0.01-0.034) ng/mL Total Protein (6.3-8.2) g/dL Albumin (3.5-5.0) g/dL Globulin (1.7-4.1) g/dL Albumin/Globulin Ratio (1.0-2.8) TSH 3.36 (0.47-4.68) uIU/mL Imaging Data Chest x-ray: Radiologist's impression: PROCEDURE: XR CHEST 1V INDICATIONS: chest pain TECHNIQUE: One view of the chest was acquired. COMPARISON: [facility], CR, XR CHEST 1V, 06/03/2019, 10:27. FINDINGS: Surgical changes and devices: The previously seen nasogastric tube has been removed in the interim. Lungs and pleura: Lungs are clear. No pleural effusions or pneumothorax. Mediastinum: Mediastinal contours appear normal. Heart size is normal. Bones and chest wall: No suspicious bony lesions. Overlying soft tissues appear unremarkable. IMPRESSION: No acute cardiopulmonary process is evident. Dictated by: Raghavendra Marcos M.D. on 06/16/2019 at 8:13 US - abdomen: Radiologist's impression: PROCEDURE: US ABDOMEN LIMITED INDICATIONS: ELEV BILIRUBIN, RUQ PAIN TECHNIQUE: Real-time focused scanning was performed of the abdomen, with image documentation. COMPARISON: [facility], MR, MR ABDOMEN PELVIS WWO CON, 06/02/2019, 12:24. [facility], CT, CT ABDOMEN PELVIS W CON, 06/01/2019, 15:06. FINDINGS: The liver is normal in size and demonstrates diffusely increased echogenicity when compared to the right kidney. This does result in difficulty evaluating the liver for deep liver lesions. No large liver lesions are evident. There is a coarse calcification identified within the dome of the right hepatic lobe that measures up to 1.9 cm in diameter. The gallbladder is normal in size. There is mild gallbladder wall thickening that measures up to 3 mm in maximal thickness. No cholelithiasis is evident. There may be a trace amount of pericholecystic fluid. The common bile duct is mildly enlarged at approximately 6 mm. Imaged portions of the pancreas are grossly unremarkable. There is borderline prominence of the main pancreatic duct, measuring up to 4 mm. IMPRESSION: 1. No cholelithiasis. 2. Nonspecific wall thickening of the gallbladder potentially be related to chronic liver or heart disease. Please correlate clinically to exclude the possibility of acalculus cholecystitis. 3. Nonspecific increased echogenicity of the liver is most often seen in the setting of hepatic steatosis and clinical correlation is recommended. Dictated by: Raghavendra Marcos M.D. on 06/16/2019 at 10:10 Approved by: Raghavendra Marcos M.D. on 06/16/2019 at 10:1 ECG Data Attestation: I personally reviewed and interpreted this ECG as follows: Prior ECG tracings: available for review Interpretation: EKG 1.: Atrial fibrillation with PVC rate [address] changes. No previous atrial fibrillation noted on prior EKGs EKG 2. Normal sinus rhythm rate [address] changes MDM Narrative Medical decision making narrative: Patient was likely in atrial fibrillation with RVR his heart rate did slow some with the amiodarone from EMS he was given 10 mg of diltiazem which he converted to normal sinus rhythm. Overall feeling better. However he has had frequent episodes of AFib over the last 2 days. Not a cardioversion candidate. He is not on anticoagulation. His patient is also noted to have elevated LFTs and bilirubin. They have been up and down in the past he does not have specific right upper quadrant pain. However ultrasound was obtained a did show some thickening of the wall that he has a negative Irving sign. This is certainly not wear his chronic ongoing abdominal pain. Dr. Dhaliwal updated patient's symptoms test results frequent ER visits. Patient will be placed in observation for possible new onset atrial fibrillation Discharge Plan Departure Patient Disposition: Admitted as Observation Clinical Impression: Atrial fibrillation Qualifiers: Atrial fibrillation type: paroxysmal Qualified Code(s): I48.0 - Paroxysmal atrial fibrillation Discharge Date/Time: 06/16/19 11:16 Referrals: Khang Vasques MD [Primary Care Provider] - Admit Date/Time: 06/16/19 12:05 Admit Provider: Julia Dhaliwal
[2019-06-16] MEDS: dilTIAZem 5 MG/ML SDV 10 MG IV (08:45)
--- NOTE | 2019-06-16 08:57 | PC.NURSE ---
pt reports, wt lost 20-30 pounds in 3-4 months, due to vomiting. on arrival pt with shakes, warm blanket provided and with improvement. ems glucose chect [employer] [id number]
[2019-06-16] MEDS: SODIUM CHLORIDE 0.9% 1,000 ML 150 ML IV (09:02)
[2019-06-16 09:23] LABS: Add Manual Diff / Slide Review NO; Basophils Absolute Auto 100 /uL (0-100); Basophils Percent Auto 0.7 % (0-2); Eosinophils Absolute Auto 0 /uL (0-450); Eosinophils Percent Auto 0.3 % (2-4); Hematocrit 49.9 % (41-53); Hemoglobin 17.3 g/dL (13.5-17.5); Lymphocytes Absolute Auto 900 /uL (1100-4500); Lymphocytes Percent Auto 8.1 % (25-40); Mean Corpuscular HGB Conc 34.8 % (30-36); Mean Corpuscular Hemoglobin 33.9 PG (26-34); Mean Corpuscular Volume 97.5 fL (80-100); Monocytes Absolute Auto 1300 /uL (0-900); Monocytes Percent Auto 11.7 % (3-14); Neutrophils Absolute Auto 8600 /uL (1500-7000); Neutrophils Percent Auto 79.2 % (50-75); Platelet Count 189 X10^3/uL (150-400); Red Blood Cell Count 5.12 X10^6/uL (4.5-5.9); Red Cell Distribution Width 13.9 % (11.6-14.8); White Blood Cell Count 10.9 X10^3/uL (4.5-11.0)
[2019-06-16 09:28] LABS: Prothrombin Time 11.8 SECONDS (10.1-12.7)
[2019-06-16 09:31] LABS: PTT Partial Thromboplastin Tim 27 SECONDS (26.4-36.2)
[2019-06-16 09:36] LABS: Alanine Aminotransferase 245 IU/L (21-72); Albumin 4.4 g/dL (3.5-5.0); Albumin Globulin Ratio 1.1 (1.0-2.8); Alkaline Phosphatase 99 U/L (38-126); Aspartate Aminotransferase 327 IU/L (17-59); BUN Creatinine Ratio 22.5 (6-22); Bilirubin Total 2.3 mg/dL (0.2-1.3); Blood Urea Nitrogen 18 mg/dL (9-20); Calcium 9.8 mg/dL (8.4-10.2); Carbon Dioxide 24 mmol/L (22-32); Chloride 98 mmol/L (98-107); Creatine Kinase 37 U/L (55-170); Estimated Glomerular Filt Rate > 60.0 mL/min (>60); Glucose 200 mg/dL (80-110); HEMOLYSIS 80 (0-50); Sodium 137 mmol/L (137-145); Total Protein 8.4 g/dL (6.3-8.2)
[2019-06-16 09:37] LABS: Potassium 4.1 mmol/L (3.4-5.1)
[2019-06-16 09:44] LABS: Troponin I 0.026 ng/mL (0.01-0.034)
--- NOTE | 2019-06-16 09:49 | DI.US.S_ITS ---
PROCEDURE: US ABDOMEN LIMITED INDICATIONS: ELEV BILIRUBIN, RUQ PAIN TECHNIQUE: Real-time focused scanning was performed of the abdomen, with image documentation. COMPARISON: [facility], MR, MR ABDOMEN PELVIS WWO CON, 06/02/2019, 12:24. [facility], CT, CT ABDOMEN PELVIS W CON, 06/01/2019, 15:06. FINDINGS: The liver is normal in size and demonstrates diffusely increased echogenicity when compared to the right kidney. This does result in difficulty evaluating the liver for deep liver lesions. No large liver lesions are evident. There is a coarse calcification identified within the dome of the right hepatic lobe that measures up to 1.9 cm in diameter. The gallbladder is normal in size. There is mild gallbladder wall thickening that measures up to 3 mm in maximal thickness. No cholelithiasis is evident. There may be a trace amount of pericholecystic fluid. The common bile duct is mildly enlarged at approximately 6 mm. Imaged portions of the pancreas are grossly unremarkable. There is borderline prominence of the main pancreatic duct, measuring up to 4 mm. IMPRESSION: 1. No cholelithiasis. 2. Nonspecific wall thickening of the gallbladder potentially be related to chronic liver or heart disease. Please correlate clinically to exclude the possibility of acalculus cholecystitis. 3. Nonspecific increased echogenicity of the liver is most often seen in the setting of hepatic steatosis and clinical correlation is recommended. Dictated by: Raghavendra Marcos M.D. on 06/16/2019 at 10:10 Approved by: Raghavendra Marcos M.D. on 06/16/2019 at 10:14
--- NOTE | 2019-06-16 10:02 | PC.NURSE ---
reporting abdominal pain, usually takes morphine sulfate every 6 hours, and requesting zofran for nausea.
[2019-06-16] MEDS: ONDANSETRON 4 MG/2 ML INJ IV (10:16)
[2019-06-16] MEDS: HYDROMORPHONE 1 MG INJ IV (10:16)
[2019-06-16 10:19] LABS: Thyroid Stimulating Hormone 3.36 uIU/mL (0.47-4.68)
--- NOTE | 2019-06-16 12:20 | P.HP_ITS ---
History of Present Illness History of Present Illness Date Patient Seen: 06/16/19 Time Patient Seen: 12:46 Chief complaint: Rapid HR Narrative: Patient is a 63-year-old male under the care of Dr. Vasques. He has a history of atrial fibrillation, hepatitis-C, chronic back pain with chronic opiate use as well as chronic, intractable abdominal pain that is currently undergoing an extensive inpatient and outpatient workup. Patient presented to the ER today due to palpitations and lightheadedness. He states he has been going in and out of AFib up to multiple times a day. He has noticed that when he goes to have a bowel movement he becomes sweaty, nauseated then can flip into AFib. He states his AFib occurs when he is in severe pain so he tries to keep a handle on his pain to prevent episodes. This morning he woke up in atrial fibrillation and he suspects he went into it sometime during the night. He took his nausea medications then some of his morphine but the palpitations continued with associated lightheadedness. He thought he was going to pass out and called 911. EMS gave him a bolus of amiodarone. In the emergency department he was given a dose of diltiazem and converted to sinus rhythm. Labs were similar to prior. Abdominal ultrasound was done due to transaminitis which did not show acute changes compared to prior imaging. Patient was quite fearful of returning home that he was going to go right back into AFib so was admitted for observation. He has not felt well for well over a month and has been dealing with abdominal pain for a year. Has been losing weight as well. He has undergone extensive workup with x-ray, CT, MRI the abdominal pain. Imaging significant for bowel wall thickening, bowel malrotation, as well is a prostate mass suspicious for cancer. He saw GI recently who recommended EGD and colonoscopy. He is unsure when the colonoscopy is scheduled. At one point he was told they could not do it until the end of July but he also states it may be scheduled Tuesday of this week, he is not sure. During his last hospitalization he did have an EGD due to hematemesis which showed gastritis only. Colonoscopy was not performed. As for the prostate mass, he states he just saw Urology yesterday who said he was not a candidate for of prostate biopsy due to his comorbidities right now and that she was absolutely certain his abdominal pain was not due to his prostate. Patient History Medical History Atrial fibrillation (Acute) Chronic hepatitis (Chronic) Coronary artery disease involving [place] coronary artery of [place] heart without angina pectoris (Chronic) Diverticular disease (Chronic) Diverticulosis of large intestine (Chronic 03/31/12) Essential hypertension (Chronic) Hepatitis C (Chronic) Kidney stones (Resolved) Mixed hyperlipidemia (Chronic) Surgical History History of angioplasty (~12/2006) Hx of inguinal hernia surgery (Resolved ~09/20/08) Hx of inguinal hernia surgery (Resolved ~03/07/14) Status post laminectomy Social History marital status: unmarried,single number of children: 3 household members: none lives independently: Yes caregiver/support person: No housing: house pets and animals: No education level: high school (11th grade) occupational status: 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.) alcohol intake: current substance use type: does not use and marijuana (On and off.) Family & Social History Social History: household members none lives independently Yes caregiver/support person No Safety & Behavioral: Feels Safe in Current Yes Environment Been Physically Hurt or No Threatened By a Person Tobacco & Substance use: Smoking Status Former smoker alcohol intake current alcohol intake frequency a few times a week Substance Use Type marijuana Meds Home Medications and Allergies Home Medications Medication Instructions Recorded Confirmed Type budesonide 3 mg 6 mg PO QAM #60 each 03/20/19 06/16/19 Rx capsule,delayed,extended release cyclobenzaprine 5 mg tablet 5 mg PO TID PRN tab 03/20/19 06/16/19 History morphine 20 mg/5 mL (4 mg/mL) oral See Rx Instructions .ROUTE 03/20/19 06/16/19 Rx solution .COMPLEX PRN #100 ml lisinopril 20 mg tablet 20 mg PO DAILY #30 tab 05/21/19 06/16/19 Rx clopidogrel [Plavix] 75 mg PO DAILY 06/01/19 06/16/19 History ondansetron 4 mg PO Q6H PRN 06/01/19 06/16/19 History oxycodone 5 - 10 mg PO Q4H PRN 06/01/19 06/16/19 History simvastatin 40 mg tablet 40 mg PO DAILY #30 tab 06/02/19 06/16/19 Rx omeprazole 40 mg PO BID #60 cap 06/07/19 06/16/19 Rx polyethylene glycol 3350 [Miralax] 17 gram PO DAILY #510 gram 06/07/19 06/16/19 Rx sennosides [senna] 8.6 mg PO BID #30 tab 06/07/19 06/16/19 Rx tamsulosin [Flomax] 0.4 mg PO DAILY #30 cap 06/07/19 06/16/19 Rx metoclopramide HCl 10 mg PO ACHS 06/14/19 06/16/19 History metoprolol tartrate 25 mg PO BID 06/14/19 06/16/19 History Allergies Allergy/AdvReac Type Severity Reaction Status Date / Time No Known Drug Allergies Allergy Verified 06/16/19 08:45 Review of Systems Constitutional Constitutional: Reports fatigue, Denies fever(s), Reports night sweats and R eports weight loss ENT Ears, Nose, Mouth, and Throat: Yes dizziness Cardiovascular Cardiovascular: Denies chest pain, Reports excessive sweating, Reports fast heart rate, Denies foot swelling and Reports irregular heart rhythm Gastrointestinal Gastrointestinal: Reports abdominal pain, Reports nausea and Denies vomiting Neurologic Neurologic: Reports dizziness Endocrine Endocrine: Reports fatigue Exam Vital Signs (past 8 hours): - 06/16/19 08:40 06/16/19 09:00 06/16/19 09:10 Temperature 97.4 F L Pulse Rate 129 H 117 H 99 H Respiratory Rate 16 12 21 Blood Pressure 152/101 H Blood Pressure [Right Arm] 117/86 Pulse Oximetry 100 100 100 06/16/19 09:15 06/16/19 09:30 06/16/19 10:00 Temperature Pulse Rate 105 H 105 H 100 H Respiratory Rate 18 15 16 Blood Pressure Blood Pressure [Right Arm] 139/87 121/82 102/81 Pulse Oximetry 100 100 100 06/16/19 10:15 06/16/19 10:33 06/16/19 11:03 Temperature Pulse Rate 98 H 103 H 87 Respiratory Rate 16 15 15 Blood Pressure Blood Pressure [Right Arm] 102/81 114/71 104/86 Pulse Oximetry 100 98 100 Oxygen Delivery Method Nasal Cannula Oxygen Flow Rate 2 Narrative Exam Narrative: General: Chronically ill-appearing, fatigued older man. Very flat affect. HEENT: NCAT, EOMI, moist oral mucosa CV: Regular rate and rhythm, no murmurs, rubs or gallops Lungs: CTAB, no wheezes, rales, or rhonchi Abdomen: Bowel tones active. Abdomen is soft. Tender to palpation in the left upper and lower quadrants without guarding. No masses appreciated. Extremities: Warm, no edema, 2+ pedal pulses bilaterally Objective ECG Impression: Atrial fibrillation with rate of [address] changes. Repeat EKG with normal sinus rhythm rate [address] changes Imaging Abdominal ultrasound: Radiologist's impression: IMPRESSION: 1. No cholelithiasis. 2. Nonspecific wall thickening of the gallbladder potentially be related to chronic liver or heart disease. Please correlate clinically to exclude the possibility of acalculus cholecystitis. 3. Nonspecific increased echogenicity of the liver is most often seen in the setting of hepatic steatosis and clinical correlation is recommended. Dictated by: Raghavendra Marcos M.D. on 06/16/2019 at 10:10 Approved by: Raghavendra Marcos M.D. on 06/16/2019 at 10:14 Labs Result Diagrams: 06/16/19 09:13 06/16/19 09:13 Labs: Laboratory Results - last 24 hr 06/16/19 06/16/19 06/16/19 09:13 09:13 09:13 WBC 10.9 D RBC 5.12 Hgb 17.3 Hct 49.9 MCV 97.5 MCH 33.9 MCHC 34.8 RDW 13.9 Plt Count 189 Neut % (Auto) 79.2 H Lymph % (Auto) 8.1 L [place] % (Auto) 11.7 Eos % (Auto) 0.3 L Baso % (Auto) 0.7 Neut # (Auto) 8600 H Lymph # (Auto) 900 L [place] # (Auto) 1300 H Eos # (Auto) 0 Baso # (Auto) 100 PT 11.8 INR 1.0 APTT 27 Sodium 137 Potassium 4.1 Chloride 98 Carbon Dioxide 24 BUN 18 Creatinine 0.80 Estimated GFR > 60.0 BUN/Creatinine Ratio 22.5 H Glucose 200 H Calcium 9.8 Magnesium Total Bilirubin 2.3 H AST 327 H ALT 245 H Alkaline Phosphatase 99 Total Creatine Kinase CK-MB (CK-2) CK-MB (CK-2) Rel Index Troponin I Total Protein 8.4 H Albumin 4.4 Globulin 4.0 Albumin/Globulin Ratio 1.1 TSH 06/16/19 06/16/19 09:13 09:13 WBC RBC Hgb Hct MCV MCH MCHC RDW Plt Count Neut % (Auto) Lymph % (Auto) [place] % (Auto) Eos % (Auto) Baso % (Auto) Neut # (Auto) Lymph # (Auto) [place] # (Auto) Eos # (Auto) Baso # (Auto) PT INR APTT Sodium Potassium Chloride Carbon Dioxide BUN Creatinine Estimated GFR BUN/Creatinine Ratio Glucose Calcium Magnesium 2.0 Total Bilirubin AST ALT Alkaline Phosphatase Total Creatine Kinase 37 L CK-MB (CK-2) TNP CK-MB (CK-2) Rel Index TNP Troponin I 0.026 Total Protein Albumin Globulin Albumin/Globulin Ratio TSH 3.36 Assessment & Plan Assessment and plan (1) Atrial fibrillation with rapid ventricular response: Current visit: Yes Status: Acute (2) Intractable abdominal pain: Current visit: No Status: Acute (3) Hepatitis C: Problem details: Failed interferon RX Qualifiers: Hepatic coma status: without hepatic coma Viral hepatitis chronicity: chronic Qualified Code(s): B18.2 - Chronic viral hepatitis C Current visit: No Status: Chronic (4) Essential hypertension: Current visit: No Status: Chronic (5) Mixed hyperlipidemia: Current visit: No Status: Chronic (6) Coronary artery disease involving [place] coronary artery of [place] heart without angina pectoris: Current visit: No Status: Chronic (7) Transaminitis: Current visit: Yes Status: Acute Assessment & Plan narrative: This is an unfortunate 63-year-old man with hypertension, CAD, hyperlipidemia, atrial fibrillation on chronic anticoagulation, chronic back pain on chronic opiates, history of hepatitis-C now with intractable abdominal pain. His main complaint today is atrial fibrillation. He is very concerned that he has been going in and out of atrial fibrillation daily sometimes multiple times a day. There was concern in the ER that this was new onset atrial fibrillation however he has documentation of atrial fibrillation in multiple places in his chart and states he has had atrial fibrillation since he was a child. AFib with RVR: Patient converted after a dose of amiodarone by EMS as well as a dose of diltiazem in the ER. Will continue his usual metoprolol and monitor on telemetry. Patient is chronically anticoagulated with Plavix. Considered starting diltiazem since this converted him so quickly in the ER however given his hepatic issues, will hold off. May increase metoprolol if tolerated by blood pressure and pulse. 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 May be time to follow up as an outpatient. Intractable abdominal pain: Reviewed records from his last admission as well as multiple imaging modalities. He really needs a colonoscopy with GI and this is being pursued as an outpatient. I do not think his chronic symptoms warrant consultation with surgery at this time for colonoscopy. He has not actually had a change in his abdominal symptoms. He continues with intermittent nausea, poor appetite and left-sided abdominal pain but none of this is new. Transaminases were a bit more elevated compared to prior. He does have a history of hepatitis-C. Ultrasound today showed nonspecific gallbladder wall thickening however his pain is on the left side of the abdomen. Alkaline phosphatase was normal. We will trend his labs but I do not see any indication for repeat CT or surgical consultation at this time. Hypertension: Continue lisinopril. Diltiazem due to the atrial fibrillation could be a nice option however will hold off given his hepatic issues. Chronic back pain: Will continue his usual chronic opiate medication. Diet: General diet as tolerated DVT prophylaxis: Plavix, SCDs Code status: Discussed with patient. He prefers DNR. Will look for his POLST. Undecided on intubation. Disposition: Patient is currently admitted under observation for his atrial fibrillation. He has not had a change in the status of his abdominal pain and this is being worked up as an outpatient. He may be able to discharge home tomorrow depending on the atrial fibrillation.
[2019-06-16] MEDS: OXYCODONE IR 10 MG TABLET PO ×2 (13:00→17:25)
[2019-06-16] MEDS: METOPROLOL IR 25 MG TABLET PO ×2 (13:29→21:31)
[2019-06-16] MEDS: METOCLOPRAMIDE HCL 10 MG TABLET PO ×2 (17:25→21:31)
[2019-06-16] MEDS: SODIUM CHLORIDE 0.9% 1,000 ML 100 ML IV (18:48)
[2019-06-16] MEDS: SENNOSIDES 8.6 MG TABLET PO (21:31)
[2019-06-16] MEDS: PANTOPRAZOLE 40 MG TABLET PO (21:31)
[2019-06-17] VITALS: O2SAT 98
[2019-06-17] MEDS: OXYCODONE IR 5 MG TABLET PO ×2 (00:17→04:07)
[2019-06-17] MEDS: SODIUM CHLORIDE 0.9% 1,000 ML 100 ML IV (04:10)
[2019-06-17 04:15] VITALS: BP 153/96; PULSE 60; RESP 18; TEMP 37.1; O2SAT 98
--- NOTE | 2019-06-17 05:40 | PC.NURSE ---
Pt on tele in [place] overnight. Pt states this is the most calm his heart has been in two days. Pt noted his heart rate up to 200's is sometimes exacerbated/initiated by pain and/or nausea. Pt with ongoing abdominal pain. Oxycodone given x2 overnight with effective pain control. Pt had recent impaction (last week) education provided regarding risk of constipation while taking opioid pain medication. Pt reports eating low residue foods and taking stool softeners at home. 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 Pt reports large amt of weight loss since last . Mild dizziness when OOB, bed alarm on and SBA for all OOB activity. Pt admitted as observation overnight, anticipate discharge to home today.
[2019-06-17 05:41] LABS: Add Manual Diff / Slide Review NO; Basophils Absolute Auto 100 /uL (0-100); Basophils Percent Auto 0.9 % (0-2); Eosinophils Absolute Auto 100 /uL (0-450); Eosinophils Percent Auto 1.3 % (2-4); Hematocrit 44.2 % (41-53); Hemoglobin 15.2 g/dL (13.5-17.5); Lymphocytes Absolute Auto 2000 /uL (1100-4500); Lymphocytes Percent Auto 30.1 % (25-40); Mean Corpuscular HGB Conc 34.5 % (30-36); Mean Corpuscular Hemoglobin 33.3 PG (26-34); Mean Corpuscular Volume 96.7 fL (80-100); Monocytes Absolute Auto 800 /uL (0-900); Monocytes Percent Auto 11.6 % (3-14); Neutrophils Absolute Auto 3800 /uL (1500-7000); Neutrophils Percent Auto 56.1 % (50-75); Platelet Count 175 X10^3/uL (150-400); Red Blood Cell Count 4.57 X10^6/uL (4.5-5.9); Red Cell Distribution Width 13.7 % (11.6-14.8); White Blood Cell Count 6.7 X10^3/uL (4.5-11.0)
[2019-06-17 05:55] LABS: Alanine Aminotransferase 242 IU/L (21-72); Albumin 3.6 g/dL (3.5-5.0); Albumin Globulin Ratio 1.1 (1.0-2.8); Alkaline Phosphatase 81 U/L (38-126); Aspartate Aminotransferase 288 IU/L (17-59); BUN Creatinine Ratio 26.7 (6-22); Bilirubin Total 1.7 mg/dL (0.2-1.3); Blood Urea Nitrogen 16 mg/dL (9-20); Carbon Dioxide 26 mmol/L (22-32); Chloride 103 mmol/L (98-107); Estimated Glomerular Filt Rate > 60.0 mL/min (>60); Globulin 3.3 g/dL (1.7-4.1); Glucose 111 mg/dL (80-110); HEMOLYSIS < 15 (0-50); Potassium 3.5 mmol/L (3.4-5.1); Sodium 138 mmol/L (137-145); Total Protein 6.9 g/dL (6.3-8.2)
[2019-06-17] MEDS: PANTOPRAZOLE 40 MG TABLET PO (06:36)
[2019-06-17] MEDS: METOCLOPRAMIDE HCL 10 MG TABLET PO ×2 (06:36→11:52)
[2019-06-17 07:30] VITALS: O2SAT 99
[2019-06-17 07:40] VITALS: BP 142/92; PULSE 60; RESP 16; TEMP 36.9; O2SAT 99
[2019-06-17] MEDS: OXYCODONE IR 10 MG TABLET PO (07:42)
[2019-06-17] MEDS: BUDESONIDE 3 MG CAP 6 MG PO (09:28)
[2019-06-17 09:29] VITALS: BP 142/92
[2019-06-17] MEDS: TAMSULOSIN 0.4 MG CAPSULE PO (09:29)
[2019-06-17] MEDS: CLOPIDOGREL 75 MG TABLET PO (09:29)
[2019-06-17] MEDS: POLYETHYLENE GLYCOL 3350 17 GM POWD.PACK PO (09:29)
[2019-06-17] MEDS: LISINOPRIL 20 MG TABLET PO (09:29)
[2019-06-17] MEDS: SENNOSIDES 8.6 MG TABLET PO (09:29)
[2019-06-17] MEDS: SIMVASTATIN 40 MG TABLET PO (09:29)
[2019-06-17] MEDS: METOPROLOL IR 25 MG TABLET PO (09:29)
--- NOTE | 2019-06-17 10:06 | P.DS_ITS ---
History of Present Illness History of Present Illness Date Patient Seen: 06/17/19 Time Patient Seen: 09:00 Chief complaint: Rapid HR Narrative: Patient is a 63-year-old male under the care of Dr. Vasques. He has a history of atrial fibrillation, hepatitis-C, chronic back pain with chronic opiate use as well as chronic, intractable abdominal pain that is currently undergoing an extensive inpatient and outpatient workup. Patient presented to the ER today due to palpitations and lightheadedness. He states he has been going in and out of AFib up to multiple times a day. He has noticed that when he goes to have a bowel movement he becomes sweaty, nauseated then can flip into AFib. He states his AFib occurs when he is in severe pain so he tries to keep a handle on his pain to prevent episodes. This morning he woke up in atrial fibrillation and he suspects he went into it sometime during the night. He took his nausea medications then some of his morphine but the palpitations continued with associated lightheadedness. He thought he was going to pass out and called 911. EMS gave him a bolus of amiodarone. In the emergency department he was given a dose of diltiazem and converted to sinus rhythm. Labs were similar to prior. Abdominal ultrasound was done due to transaminitis which did not show acute changes compared to prior imaging. Patient was quite fearful of returning home that he was going to go right back into AFib so was admitted for observation. He has not felt well for well over a month and has been dealing with abdominal pain for a year. Has been losing weight as well. He has undergone extensive workup with x-ray, CT, MRI the abdominal pain. Imaging significant for bowel wall thickening, bowel malrotation, as well is a prostate mass suspicious for cancer. He saw GI recently who recommended EGD and colonoscopy. He is unsure when the colonoscopy is scheduled. At one point he was told they could not do it until the end of July but he also states it may be scheduled Tuesday of this week, he is not sure. During his last hospitalization he did have an EGD due to hematemesis which showed gastritis only. Colonoscopy was not performed. As for the prostate mass, he states he just saw Urology yesterday who said he was not a candidate for of prostate biopsy due to his comorbidities right now and that she was absolutely certain his abdominal pain was not due to his prostate. Discharge Providers Provider Date of admission: 06/16/19 12:05 Discharge Date: 06/17/19 Primary care physician: Khang Vasques MD Consults: 06/16/19 12:41 Consult to Dietitian, Adult Routine Comment: Reason For Exam: 30 pounds weight loss Consult to Communications Manager Routine Comment: Discharge provider: Julia Dhaliwal DO Summary Hospital Course Discharge Diagnosis: Atrial fibrillation with rapid ventricular response Intractable abdominal pain Hepatitis-C Transaminitis Chronic back pain Chronic opiate use Hospital Course: Patient was admitted due to atrial fibrillation with rapid ventricular response. He actually converted in the emergency department. He was admitted for further observation given patient's anxiety about returning home and going right back and AFib. He was a sinus rhythm all night and reports that he feels much better from a cardiac perspective. Leading up to this admission he had been feeling quite poorly at home and had been vomiting. Likely dehydration contributed at least in part to his AFib. He states that last week the trip to see Urology in [facility] completely wiped him out. Spoke with the patient and his friend Mariaa for quite some time today. Mariaa is very concerned and frustrated about the patient's current medical state and wants answers. She states he is scheduled for colonoscopy in [place] this TuesdayJune 20 but he was supposed to be off Plavix starting yesterday. Patient was unsure if the colonoscopy was still scheduled or not. He did receive Plavix yesterday. Both the patient and his friend state that he cannot make the trip to [place] because he is too uncomfortable. They are sure that if he were to travel he would end up right back in the hospital like he did this time with dehydration, nausea and vomiting following his urology visit in [facility]. Mariaa is also concerned about his ability to do the prep for a colonoscopy and thinks it will make him to sick. Discussed with the patient and Mariaa that though they are quite frustrated, there is not much that can be accomplished through continued hospitalization. He was admitted for observation due to atrial fibrillation which has resolved. They understand. Patient would prefer to stay in the hospital another night but also so understands that if it is unnecessary, insurance will not pay for it. Transaminases were elevated on admission as they have been in the past. Mild improvement today after hydration. I will discuss his case personally with Dr. Vasques tomorrow and see if there is any way we can expedite his colonoscopy and further workup. Unfortunately the notes from Urology are not available but it sounds as though prostate biopsy was not recommended at this time due to his current state. He is tolerating a diet and ambulating without difficulty. Patient does report that he feels better today compared to yesterday but continues to have left- sided abdominal pain which is chronic. Patient will discharge home today. En couraged him to maintain adequate hydration to avoid dehydration as a trigger for atrial fibrillation. No changes were made to his metoprolol. Status at Discharge Cognitive/behavioral status at discharge: at baseline, oriented Overall status at discharge: patient is back to baseline Time Spent with Patient Time spent: Greater than 30 minutes Exam Vital Signs (past 8 hours): - 06/17/19 04:15 06/17/19 07:40 06/17/19 09:29 Temperature 98.8 F 98.4 F Pulse Rate 60 60 Respiratory Rate 18 16 Blood Pressure 153/96 H 142/92 H 142/92 H Pulse Oximetry 98 99 Oxygen Delivery Method Room Air Oxygen Flow Rate 0 Narrative Exam Narrative: General: Chronically ill-appearing man. Sitting up in bed and quite conversational today. HEENT: NCAT, EOMI, moist oral mucosa CV: Regular rate and rhythm, no murmurs, rubs or gallops Lungs: CTAB, no wheezes, rales, or rhonchi Abdomen: Bowel tones active. Abdomen is soft. Tender to palpation in the left upper and lower quadrants without guarding. No masses appreciated. Extremities: Warm, no edema, 2+ pedal pulses bilaterally Objective Labs Result Diagrams: 06/17/19 05:19 06/17/19 05:19 Labs: Laboratory Results - last 24 hr 06/16/19 06/17/19 06/17/19 09:13 05:19 05:19 WBC 6.7 RBC 4.57 Hgb 15.2 Hct 44.2 MCV 96.7 MCH 33.3 MCHC 34.5 RDW 13.7 Plt Count 175 Neut % (Auto) 56.1 D Lymph % (Auto) 30.1 D [place] % (Auto) 11.6 Eos % (Auto) 1.3 L Baso % (Auto) 0.9 Neut # (Auto) 3800 Lymph # (Auto) 2000 [place] # (Auto) 800 Eos # (Auto) 100 Baso # (Auto) 100 Sodium 138 Potassium 3.5 Chloride 103 Carbon Dioxide 26 BUN 16 Creatinine 0.60 L Estimated GFR > 60.0 BUN/Creatinine Ratio 26.7 H Glucose 111 H Calcium 9.0 Total Bilirubin 1.7 H AST 288 H ALT 242 H Alkaline Phosphatase 81 Total Protein 6.9 Albumin 3.6 Globulin 3.3 Albumin/Globulin Ratio 1.1 TSH 3.36 Discharge Plan Discharge Plan Discharge Problem: Atrial fibrillation Patient Disposition: Home Discharge Med Rec/Prescriptions Prescriptions: Continued simvastatin 40 mg tablet 40 mg PO DAILY Qty: 30 RF: 0 cyclobenzaprine 5 mg tablet 5 mg PO TID PRN (Reason: Spasms) RF: 0 budesonide 3 mg capsule,delayed,extend.release 6 mg PO QAM Qty: 60 RF: 3 morphine 20 mg/5 mL (4 mg/mL) solution See Rx Instructions .ROUTE .COMPLEX PRN (Reason: severe pain) Qty: 100 RF: 0 lisinopril 20 mg tablet 20 mg PO DAILY Qty: 30 RF: 0 oxycodone 5 mg tablet 5 - 10 mg PO Q4H PRN (Reason: pain) RF: 0 clopidogrel [Plavix] 75 mg tablet 75 mg PO DAILY RF: 0 ondansetron 4 mg tablet,disintegrating 4 mg PO Q6H PRN (Reason: Nausea) RF: 0 sennosides [senna] 8.6 mg Tablet 8.6 mg PO BID Qty: 30 RF: 0 tamsulosin [Flomax] 0.4 mg Capsule 0.4 mg PO DAILY Qty: 30 RF: 0 polyethylene glycol 3350 [Miralax] 17 gram/dose powder 17 gram PO DAILY Qty: 510 RF: 0 omeprazole 40 mg capsule,delayed release(DR/EC) 40 mg PO BID Qty: 60 RF: 1 metoprolol tartrate 50 mg tablet 25 mg PO BID RF: 0 metoclopramide HCl 10 mg tablet 10 mg PO ACHS RF: 0 Follow up/Referrals: Khang Vasques MD [Primary Care Provider] - 06/22/19 9:30 am Provider Discharge Instructions Diet: Diet as Tolerated Skin/Wound/Dressing Care Report to your healthcare provider any signs of infection, such as:: chills, fever, night sweats and increased pain Visit Report/Discharge Packet Visit Report Forms: Patient Portal/API, Stroke Signs & Symptoms Discharge Data Primary Care Provider: Khang Vasques Attending Provider: Julia Dhaliwal [place] Date/Time: 06/16/19 12:05 Quality VTE Deep Vein Thrombosis/Pulmonary Embolism Present on Admission: No
--- NOTE | 2019-06-17 12:37 | CM.DANOTE ---
Discharge Planning/Care Management DCP: assessment: case received and spoke with Dr. Dhaliwal when she was here early this morning. She stated pt had stabilized in the ER, was kept yesterday afternoon and overnight for observation and was stable for d/c to home setting and continued outpt followup. RN coordinator Lilli requested assist in making sure this d/c happened ROBBY. She noted that a friend of pt's had been calling MARY KATE Baker and was poised to pick him up at d/c but that pt was reluctant to leave. Met then with pt and introduced self and role. Am familiar with pt from his recent admission to 06/01-06/07. PCP: Dr. Vasques Payer: Janny Downey Admission status: OBS. Pt does live alone but has support from family and friends. He carries many medical comorbidities. Pt said he did understand that he was discharging today but wondered if he could stay until tomorrow. The doctor said I could if my insurance would allow it. Explained specifics of the d/c today, a general overview of OBS admission status and offered to have the UR RN speak more with him re this. Introduced UR RN Alanna to pt and left them in conversation. Pt did request that this DCPlanner call his friend Lisandra: [phone] with request to pick him up by 1300/done. MARY KATE Baker is updated. Advanced directive, confirm from FAMILY Start: 06/16/19 12:42 Freq: Q24H Status: Active Protocol: Document 06/16/19 12:42 CM (Rec: 06/16/19 12:42 CM [id number]) Advance Directive, confirm on record Time 12:42 Person contacted Pt Copy received No CM Discharge Assessment Start: 06/17/19 12:35 Freq: Status: Active Protocol: Document 06/17/19 12:36 ITV (Rec: 06/17/19 12:36 ITV [id number]) Discharge Planning Assessment Advance Directives? Yes History Provided By Patient,Medical Record Household Members none Review Status In Process
--- NOTE | 2019-06-17 12:46 | PC.NURSE ---
Pt dressed and ready for discharge home with Friends. Went over discharge instructions, discussed d/c meds, time of last dose, ,reviewed stroke education, encouraged fluid intake and close watch on his electrolytes as well as getting up slowly if he is feeling dizzy or nauseated. Pt out via by PROGRAM COORDINATOR EXECUTIVE EDUCATION with Friends and all belongings.
== END 2019-06-17 12:48 | disposition home or self-care (01) ==
LOC: ED 09:20 → AC 12:06
PROVIDERS: Admitting Provider Family Medicine; Emergency Provider Emergency Medicine; PCP Internal Medicine; Visit Provider Family Medicine
DX: I48.0 Paroxysmal atrial fibrillation (principal); R00.2 Palpitations; R10.9 Unspecified abdominal pain; R74.0 Nonspecific elevation of levels of transaminase and lactic acid dehydrogenase [LDH]; B18.2 Chronic viral hepatitis C; E78.2 Mixed hyperlipidemia; I25.10 Atherosclerotic heart disease of native coronary artery without angina pectoris; Z79.891 Long term (current) use of opiate analgesic; M54.9 Dorsalgia, unspecified
CPT/HCPCS: 36415; 71045; 76705; 80053; 82550; 83735; 84443; 84484; 85025; 85610; 85730; 93005; 96361; 96374; 96375; 99217; 99220; 99284; 99285; G0378; J1170; J2405

== ENCOUNTER 2019-06-18 10:02 | Emergency (ER) | payer OTHER, SELFPAY ==
[2019-06-16 12:29] VITALS: BMI 19.5
[2019-06-18] VITALS (15 sets, daily range): BP systolic 105–215; BP diastolic 78–102; PULSE 56–85; RESP 10–18; TEMP 36.8–37; O2SAT 96–100
--- NOTE | 2019-06-18 10:20 | DI.RAD.S_ITS ---
PROCEDURE: XR CHEST 1V INDICATIONS: chest pain TECHNIQUE: One view of the chest was acquired. COMPARISON: [facility], CR, XR CHEST 1V, 06/03/2019, 10:27. [facility], CR, XR CHEST 1V, 06/16/2019, 8:52. FINDINGS: Surgical changes and devices: None. Lungs and pleura: Lungs are clear. No pleural effusions or pneumothorax. Mediastinum: Mediastinal contours appear normal. Heart size is normal. Bones and chest wall: No suspicious bony lesions. Overlying soft tissues appear unremarkable. IMPRESSION: 1. No acute cardiopulmonary disease. Dictated by: Brian Austin M.D. on 06/18/2019 at 10:52 Approved by: Brian Austin M.D. on 06/18/2019 at 10:54
[2019-06-18 10:40] LABS: Add Manual Diff / Slide Review NO; Basophils Absolute Auto 0 /uL (0-100); Basophils Percent Auto 0.4 % (0-2); Eosinophils Absolute Auto 0 /uL (0-450); Eosinophils Percent Auto 0.1 % (2-4); Hematocrit 42.1 % (41-53); Hemoglobin 14.7 g/dL (13.5-17.5); Lymphocytes Absolute Auto 700 /uL (1100-4500); Lymphocytes Percent Auto 11.8 % (25-40); Mean Corpuscular HGB Conc 34.9 % (30-36); Mean Corpuscular Hemoglobin 33.4 PG (26-34); Mean Corpuscular Volume 95.9 fL (80-100); Monocytes Absolute Auto 600 /uL (0-900); Monocytes Percent Auto 10.3 % (3-14); Neutrophils Absolute Auto 4600 /uL (1500-7000); Neutrophils Percent Auto 77.4 % (50-75); Platelet Count 128 X10^3/uL (150-400); Red Blood Cell Count 4.39 X10^6/uL (4.5-5.9); Red Cell Distribution Width 13.4 % (11.6-14.8); White Blood Cell Count 5.9 X10^3/uL (4.5-11.0)
[2019-06-18] MEDS: ONDANSETRON 4 MG/2 ML INJ IV ×2 (10:42→14:15)
[2019-06-18 10:47] LABS: Prothrombin Time 11.8 SECONDS (10.1-12.7)
[2019-06-18 10:50] LABS: PTT Partial Thromboplastin Tim 24 SECONDS (26.4-36.2)
[2019-06-18 10:51] LABS: Alanine Aminotransferase 224 IU/L (21-72); Albumin 3.8 g/dL (3.5-5.0); Albumin Globulin Ratio 1.1 (1.0-2.8); Alkaline Phosphatase 83 U/L (38-126); Aspartate Aminotransferase 216 IU/L (17-59); Bilirubin Total 1.5 mg/dL (0.2-1.3); Blood Urea Nitrogen 10 mg/dL (9-20); Calcium 8.7 mg/dL (8.4-10.2); Carbon Dioxide 24 mmol/L (22-32); Chloride 102 mmol/L (98-107); Creatine Kinase 36 U/L (55-170); Estimated Glomerular Filt Rate > 60.0 mL/min (>60); Globulin 3.4 g/dL (1.7-4.1); Glucose 169 mg/dL (80-110); HEMOLYSIS 38 (0-50); Lipase 57 U/L (23-300); Magnesium 1.8 mg/dL (1.6-2.3); Potassium 3.3 mmol/L (3.4-5.1); Sodium 137 mmol/L (137-145); Total Protein 7.2 g/dL (6.3-8.2)
[2019-06-18 11:03] LABS: Troponin I 0.012 ng/mL (0.01-0.034)
--- NOTE | 2019-06-18 11:13 | ED.WEAKNESS ---
HPI - Weakness General Chief complaint: Weakness Stated complaint: heart is racing Time Seen by Provider: 06/18/19 11:12 Source: patient Mode of arrival: Wheelchair Limitations: no limitations History of Present Illness HPI Narrative: 63-year-old male comes to the emergency department with complaint of abdominal pain. Patient states he has had chronic abdominal issues on and off. He states he has been told he has a blockage although he has difficulty describing exactly what that means. He has had an upper endoscopy, sounds like he has required an NG tube in the past for decompression but has not had a colonoscopy. Patient also has a prostate nodule that they think may be pushing on something and he saw a urologist in the last week but did not have any further evaluation. Patient did have a bowel movement today was soft, there is no melena no no bright red blood. Patient states afterward he started having abdominal pain and then vomiting. States that this is a common pattern for those symptoms. He has also recently been in the hospital for 6 days followed by a short admission and discharged yesterday for atrial fibrillation and or SVT. Patient states that he felt like he had some episodes where his heart was racing overnight and very sweaty. He has not had any of his blood pressure or cardiac medications today because he was too nauseated and vomiting. He has had sweats but no fevers. Related Data Home Medications Medication Instructions Recorded Confirmed cyclobenzaprine 5 mg tablet 5 mg PO TID PRN tab 03/20/19 06/18/19 clopidogrel [Plavix] 75 mg PO DAILY 06/01/19 06/18/19 ondansetron 4 mg PO Q6H PRN 06/01/19 06/18/19 oxycodone 5 - 10 mg PO Q4H PRN 06/01/19 06/18/19 metoclopramide HCl 10 mg PO ACHS 06/14/19 06/18/19 metoprolol tartrate 50 mg PO BID 06/14/19 06/18/19 ibuprofen 200 mg PO BID 06/18/19 06/18/19 Previous Rx's Medication Instructions Recorded budesonide 3 mg 6 mg PO QAM #60 each 03/20/19 capsule,delayed,extended release morphine 20 mg/5 mL (4 mg/mL) oral See Rx Instructions .ROUTE 03/20/19 solution .COMPLEX PRN #100 ml lisinopril 20 mg tablet 20 mg PO DAILY #30 tab 05/21/19 simvastatin 40 mg tablet 40 mg PO DAILY #30 tab 06/02/19 omeprazole 40 mg PO BID #60 cap 06/07/19 polyethylene glycol 3350 [Miralax] 17 gram PO DAILY #510 gram 06/07/19 sennosides [senna] 8.6 mg PO BID #30 tab 06/07/19 tamsulosin [Flomax] 0.4 mg PO DAILY #30 cap 06/07/19 Allergies Allergy/AdvReac Type Severity Reaction Status Date / Time No Known Drug Allergies Allergy Verified 06/16/19 08:45 Review of Systems Review of Systems ROS Unobtainable: All systems reviewed & are unremarkable except as noted in HPI and below PFSH Medical History Atrial fibrillation (Acute) Chronic hepatitis (Chronic) Coronary artery disease involving [place] coronary artery of [place] heart without angina pectoris (Chronic) Diverticular disease (Chronic) Diverticulosis of large intestine (Chronic 03/31/12) Essential hypertension (Chronic) Hepatitis C (Chronic) Kidney stones (Resolved) Mixed hyperlipidemia (Chronic) Surgical History History of angioplasty (~12/2006) Hx of inguinal hernia surgery (Resolved ~09/20/08) Hx of inguinal hernia surgery (Resolved ~03/07/14) Status post laminectomy Social History marital status: unmarried,single number of children: 3 household members: none lives independently: Yes caregiver/support person: No housing: house pets and animals: No education level: high school (11th grade) occupational status: 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 HEENT: Head normocephalic, atraumatic, EOMI, pupils reactive, face symmetric, moist mucous membranes NECK: Supple, full range of motion CARDIOVASCULAR: Bradycardic but regular rate and rhythm without murmurs, rubs or gallops. RESPIRATORY: Breath sounds equal bilaterally, no wheezes rales or rhonchi. ABDOMEN: Soft, positive for left upper quadrant tenderness as well as some lower but significantly more in the upper quadrant. Normoactive bowel sounds all 4 quadrants. No guarding or rebound, rigidity, no mass, no pulsatile bruit or mass. : No CVA tenderness EXTREMITIES: Normal range of motion, no edema. Neurovascularly intact NEUROLOGICAL: Cranial nerves II through XII grossly intact. Moving all extremities SKIN: Warm, dry, no petechiae, no rashes or lesions. Initial Vital Signs Initial Vital Signs: Vital Signs Temperature 98.3 F 06/18/19 10:14 Pulse Rate 63 06/18/19 10:14 Respiratory Rate 18 06/18/19 10:14 Blood Pressure 213/98 H 06/18/19 10:14 Pulse Oximetry 98 06/18/19 10:14 Course Orders Ordered: ED Orders 06/18/19 10:32 Complete Blood Count AUTO DIFF Stat Comprehensive Metabolic Panel Stat Lipase Stat Magnesium Stat Partial Thromboplastin Time Stat Prothrombin Time INR Stat Troponin & CK Cardiac Panel Stat 06/18/19 11:14 Urine Microscopic Stat 06/18/19 11:28 CT angio chest abdomen pelvis Stat Discontinued Medications Hydromorphone HCl (Dilaudid) 1 mg IV NOW ONE Stop: 06/18/19 11:28 Last Admin: 06/18/19 11:54 Dose: 1 mg Documented by: URVASHI Hydromorphone HCl (Dilaudid) 1 mg IV NOW ONE Stop: 06/18/19 13:56 Last Admin: 06/18/19 14:15 Dose: 1 mg Documented by: URVASHI Hydromorphone HCl (Dilaudid) 1 mg IV NOW ONE Stop: 06/18/19 16:59 Last Admin: 06/18/19 17:02 Dose: 1 mg Documented by: ANDREW Lisinopril (Zestril) 20 mg PO NOW ONE Stop: 06/18/19 13:57 Last Admin: 06/18/19 14:50 Dose: 20 mg Documented by: URVASHI Metoprolol Tartrate (Lopressor) 50 mg PO NOW ONE Stop: 06/18/19 13:57 Last Admin: 06/18/19 14:50 Dose: 50 mg Documented by: URVASHI Nitroglycerin (Nitro-Bid) 0.5 inch TOP NOW ONE Stop: 06/18/19 11:33 Last Admin: 06/18/19 11:54 Dose: 0.5 inch Documented by: URVASHI Ondansetron HCl (Zofran) 4 mg IV NOW ONE Stop: 06/18/19 10:31 Last Admin: 06/18/19 10:42 Dose: 4 mg Documented by: CHRISTA Ondansetron HCl (Zofran) 4 mg IV NOW ONE Stop: 06/18/19 13:56 Last Admin: 06/18/19 14:15 Dose: 4 mg Documented by: URVASHI Vital Signs Vital signs: Vital Signs - 8 hr 06/18/19 11:30 06/18/19 11:54 06/18/19 12:27 Temperature 98.6 F 98.6 F Pulse Rate 58 L 67 66 Respiratory Rate 10 L 17 Blood Pressure 183/97 H Blood Pressure [Left Arm] 108/89 194/101 H Pulse Oximetry 99 97 06/18/19 12:30 06/18/19 13:00 06/18/19 14:15 Temperature Pulse Rate 60 62 85 Respiratory Rate 11 L 10 L 11 L Blood Pressure Blood Pressure [Left Arm] 184/96 H 191/100 H 140/90 Pulse Oximetry 99 100 98 06/18/19 14:50 06/18/19 15:00 06/18/19 15:30 Temperature Pulse Rate 68 66 59 L Respiratory Rate 11 L 11 L Blood Pressure 138/78 Blood Pressure [Left Arm] 138/84 149/82 H Pulse Oximetry 98 98 06/18/19 16:00 06/18/19 17:39 Temperature Pulse Rate 56 L 59 L Respiratory Rate 10 L 16 Blood Pressure 153/79 H Blood Pressure [Left Arm] 150/89 H Pulse Oximetry 100 96 MDM - Weakness Lab Data Attestation: I reviewed the patient's lab results. Result diagrams: 06/18/19 10:32 06/18/19 10:32 Labs: Lab Results 06/18/19 06/18/19 06/18/19 Range/Units 10:32 10:32 10:32 WBC 5.9 (4.5-11.0) X10^3/uL RBC 4.39 L (4.5-5.9) X10^6/uL Hgb 14.7 (13.5-17.5) g/dL Hct 42.1 (41-53) % MCV 95.9 (80-100) fL MCH 33.4 (26-34) PG MCHC 34.9 (30-36) % RDW 13.4 (11.6-14.8) % Plt Count 128 L (150-400) X10^3/uL Neut % (Auto) 77.4 H D (50-75) % Lymph % (Auto) 11.8 L (25-40) % [place]anco % (Auto) 10.3 (3-14) % Eos % (Auto) 0.1 L (2-4) % Baso % (Auto) 0.4 (0-2) % Neut # (Auto) 4600 (2702-8564) /uL Lymph # (Auto) 700 L (8579-0630) /uL [place] # (Auto) 600 (0-900) /uL Eos # (Auto) 0 (0-450) /uL Baso # (Auto) 0 (0-100) /uL PT 11.8 (10.1-12.7) SECONDS INR 1.0 (0.9-1.3) APTT 24 L D (26.4-36.2) SECONDS Sodium 137 (137-145) mmol/L Potassium 3.3 L (3.4-5.1) mmol/L Chloride 102 (98-107) mmol/L Carbon Dioxide 24 (22-32) mmol/L BUN 10 (9-20) mg/dL Creatinine 0.50 L (0.66-1.25) mg/dL Estimated GFR > 60.0 (>60) mL/min BUN/Creatinine Ratio 20.0 (6-22) Glucose 169 H (80-110) mg/dL Calcium 8.7 (8.4-10.2) mg/dL Magnesium 1.8 (1.6-2.3) mg/dL Total Bilirubin 1.5 H (0.2-1.3) mg/dL AST 216 H (17-59) IU/L ALT 224 H (21-72) IU/L Alkaline Phosphatase 83 (38-126) U/L Total Creatine Kinase 36 L (55-170) U/L CK-MB (CK-2) TNP CK-MB (CK-2) Rel Index TNP Troponin I 0.012 (0.01-0.034) ng/mL Total Protein 7.2 (6.3-8.2) g/dL Albumin 3.8 (3.5-5.0) g/dL Globulin 3.4 (1.7-4.1) g/dL Albumin/Globulin Ratio 1.1 (1.0-2.8) Lipase 57 (23-300) U/L Urine RBC (0-5/HPF) Urine WBC (0-5/HPF) Ur Squamous Epith Cells (0-5/HPF) Amorphous Sediment Urine Bacteria (None) Ur Culture Indicated? 06/18/19 Range/Units 11:14 WBC (4.5-11.0) X10^3/uL RBC (4.5-5.9) X10^6/uL Hgb (13.5-17.5) g/dL Hct (41-53) % MCV (80-100) fL MCH (26-34) PG MCHC (30-36) % RDW (11.6-14.8) % Plt Count (150-400) X10^3/uL Neut % (Auto) (50-75) % Lymph % (Auto) (25-40) % [place] % (Auto) (3-14) % Eos % (Auto) (2-4) % Baso % (Auto) (0-2) % Neut # (Auto) (4903-4466) /uL Lymph # (Auto) (1456-1602) /uL [place] # (Auto) (0-900) /uL Eos # (Auto) (0-450) /uL Baso # (Auto) (0-100) /uL PT (10.1-12.7) SECONDS INR (0.9-1.3) APTT (26.4-36.2) SECONDS Sodium (137-145) mmol/L Potassium (3.4-5.1) mmol/L Chloride (98-107) mmol/L Carbon Dioxide (22-32) mmol/L BUN (9-20) mg/dL Creatinine (0.66-1.25) mg/dL Estimated GFR (>60) mL/min BUN/Creatinine Ratio (6-22) Glucose (80-110) mg/dL Calcium (8.4-10.2) mg/dL Magnesium (1.6-2.3) mg/dL Total Bilirubin (0.2-1.3) mg/dL AST (17-59) IU/L ALT (21-72) IU/L Alkaline Phosphatase (38-126) U/L Total Creatine Kinase (55-170) U/L CK-MB (CK-2) CK-MB (CK-2) Rel Index Troponin I (0.01-0.034) ng/mL Total Protein (6.3-8.2) g/dL Albumin (3.5-5.0) g/dL Globulin (1.7-4.1) g/dL Albumin/Globulin Ratio (1.0-2.8) Lipase (23-300) U/L Urine RBC None seen (0-5/HPF) Urine WBC 0-1/hpf (0-5/HPF) Ur Squamous Epith Cells 0-1 /hpf (0-5/HPF) Amorphous Sediment 1+ Urine Bacteria None seen (None) Ur Culture Indicated? Cult not indicated Urine Dip Bedside Urine Glucose 100 mg/dl Bedside Urine Bilirubin - Negative Bedside Urine Ketone ++ 40 Urine Specific [place] 1.015 Bedside Urine Occult Blood - Negative Bedside Urine pH 7.0 Bedside Urine Protein - Negative Bedside Urine Urobilinogen +/- 1mg Bedside Urine Nitrite - Negative Bedside Urine Leukocytes - Negative Esterase Imaging Data CT scan - abdomen: Radiologist's impression: [place] [id number] [place] [id number] Scan Report Signed Patient: Brennan Marmolejo CMR#: [id number] : 6Acct:[id number] Age/Sex: 63 / MDate of Service: 06/18/19 Loc: ED Accession Number: [id number] Procedure: CT angio chest abdomen pelvis Ordering Provider: Ashley Carrasco D.O. PROCEDURE: CT ANGIO CHEST ABDOMEN PELVIS INDICATIONS: abdominal pain, hyptension, vomiting, left change TECHNIQUE: Precontrast 5 mm thick sections acquired from the lung apices to the iliac crests. After the administration of intravenous contrast, 2.5 mm thick sections again acquired from the lung apices to the iliac crests. Maximum intensity projection (MIP) oblique sagittal and coronal reformats were then acquired. For radiation dose reduction, the following was used: automated exposure control. COMPARISON: [facility], CT, CT ABDOMEN PELVIS W CON, 06/01/2019, 15:06. FINDINGS: Image quality: Excellent. AORTA: No aneurysm. No evidence of periaortic hemorrhage. No evidence of dissection. CHEST: Lungs and pleura: No acute consolidation. No pleural effusions or pneumothorax. Central and peripheral airways are patent and normal in caliber. Mediastinum: Heart size is normal. Coronary artery calcifications are present. No pericardial effusion. No mediastinal or hilar adenopathy by size criteria. Central pulmonary arteries are normal in size. Esophagus is normal in caliber. No hiatal hernias. Bones and chest wall: No axillary adenopathy by size criteria. Thyroid gland negative. No suspicious bony lesions. No vertebral body compression fractures. ABDOMEN: Vasculature: Celiac trunk and mesenteric arteries are patent. Renal arteries are also patent. Solid organs: Liver is normal in size and enhancement. Nonspecific pelvic calcifications seen in the dome. Gallbladder contracted otherwise unremarkable. Biliary system is non dilated. Pancreas enhances normally. Spleen is normal in size and enhancement. No adrenal nodules. Both kidneys are normal in size and enhancement, without hydronephrosis. Peritoneum and bowel: No free fluid or air. The colon is largely decompressed however suggestion of long segment descending and sigmoid colonic wall thickening is noted. Incidental colonic diverticulosis. Nodes and vessels: No retroperitoneal or mesenteric adenopathy by size criteria. Inferior vena cava is normal in morphology. Scattered vascular calcifications seen in the aorta. Miscellaneous: No ventral hernias. PELVIS: Genitourinary: Bladder wall thickness is normal. Heterogeneous appearance of the prostate, nonspecific Miscellaneous: No inguinal hernias or adenopathy. No ventral hernias. Bones: No suspicious bony lesions. No vertebral body compression fractures. IMPRESSION: No evidence of aortic aneurysm or dissection. No periaortic hemorrhage identified. Suspect low-grade diffuse long segment descending and sigmoid colonic wall thickening raising possibility of mild infectious or inflammatory colitis although suboptimal evaluation given decompressed state of the bowel. Elsewhere, no acute process seen. Dictated by: Valentin Enrique M.D. on 06/18/2019 at 13:07 Approved by: Valentin Enrique M.D. on 06/18/2019 at 13:26 ECG Data Attestation: I personally reviewed and interpreted this ECG as follows: Prior ECG tracings: available for review Interpretation: EKG shows a sinus bradycardia rate of 58 P are 149 QRS of 98 QTC of 474. No ST elevation or depression appreciated. Patient has PVC, ST segments appears similar to prior from 06/16/2019 with Q-wave in V3 V4. MDM Narrative Medical decision making narrative: Recheck after medication, patient feels mildly better. His pressure improved after the 2nd dose of pain medication but he also received his metoprolol and lisinopril which he has been able to tolerate orally. Patient's lab work does not show any acute abnormalities. He was quite hypertension upon arrival. CT abdomen and pelvis angio was ordered and does not show a dissection or aneurysm. There is thickening of the colon which be consistent with his abdominal pain. He is supposed to get a colonoscopy but has not actually been done because he has been frail and had intermittent cardiac episodes. He has been rate controlled today. I spoke with his primary care Dr. Vasques who suggests trying to transfer him to [place] where he is supposed to follow up with GI for colonoscopy. [place] does not have beds, [facility] does not have beds currently. I spoke with Dr. Curtis at telling him and she defers admission as patient can be set up as an outpatient and otherwise is stable despite his hypertension which has improved in the department. Re-contacted Dr. Vasques, who states that there is not much in addition that we can do for him and recommends discharge home. Discussed with patient did discuss that we did attempt him to get him transferred elsewhere although other hospitals reluctant as this is typically an outpatient procedure. He has liquid morphine and that he can take for pain control, he has had improvement in his blood pressure in the department. And patient's lab work does not show acute abnormalities. He has had multiple cardiac issues recently so we discussed that if he has any changes with his heart such as palpitations or tachycardia he is welcome to return at any time and I am happy to see him. We did discuss his findings on imaging. There is no obvious signs of infectious causes of his colitis. Do think he would benefit from a scope. Discharge Plan Departure Patient Disposition: Home Clinical Impression: Colitis, Abdominal pain Discharge Date/Time: 06/18/19 17:39 Instructions: DI for Abdominal Pain-Adult Activity Restrictions/Additional Instructions: Follow up with Dr. Vasques. Also call your gastroenterology team to set up for colonscopy. Continue home medications as prescribed. Return to ER for fevers greater than 100.4F, lightheadedness, passing out, new chest pain, shortness of breath, persistent vomiting, black or bloody stools or other new or concerning symptoms. Prescriptions: No Action simvastatin 40 mg tablet 40 mg PO DAILY Qty: 30 RF: 0 cyclobenzaprine 5 mg tablet 5 mg PO TID PRN (Reason: Spasms) RF: 0 budesonide 3 mg capsule,delayed,extend.release 6 mg PO QAM Qty: 60 RF: 3 morphine 20 mg/5 mL (4 mg/mL) solution See Rx Instructions .ROUTE .COMPLEX PRN (Reason: severe pain) Qty: 100 RF: 0 lisinopril 20 mg tablet 20 mg PO DAILY Qty: 30 RF: 0 oxycodone 5 mg tablet 5 - 10 mg PO Q4H PRN (Reason: pain) RF: 0 clopidogrel [Plavix] 75 mg tablet 75 mg PO DAILY RF: 0 ondansetron 4 mg tablet,disintegrating 4 mg PO Q6H PRN (Reason: Nausea) RF: 0 sennosides [senna] 8.6 mg Tablet 8.6 mg PO BID Qty: 30 RF: 0 tamsulosin [Flomax] 0.4 mg Capsule 0.4 mg PO DAILY Qty: 30 RF: 0 polyethylene glycol 3350 [Miralax] 17 gram/dose powder 17 gram PO DAILY Qty: 510 RF: 0 omeprazole 40 mg capsule,delayed release(DR/EC) 40 mg PO BID Qty: 60 RF: 1 metoprolol tartrate 50 mg tablet 50 mg PO BID RF: 0 metoclopramide HCl 10 mg tablet 10 mg PO ACHS RF: 0 ibuprofen 200 mg Tablet 200 mg PO BID RF: 0 Referrals: Khang Vasques MD [Primary Care Provider] -
--- NOTE | 2019-06-18 11:16 | PC.NURSE ---
received report from MARY KATE Burkett. pt resting bed. appears uncomfortable. reports abd pain and nausea with heaving since this morning. generalized malaise and weakness. hypertensive over 200/systolic and unable to hold down his meds this morning. Per , pt was here multiple times this week sick and told he has a bowel blockage, but no one will do a colonoscopy bc hes sick Skin PWD. attached to cardiac monitoring. HR 60's NSR w/ occasional PVCs. requesting pain medication. Dr Carrasco at the bedside at this time. urine obtained. pt with IV access and awaiting lab results
--- NOTE | 2019-06-18 11:28 | DI.CT.S_ITS ---
PROCEDURE: CT ANGIO CHEST ABDOMEN PELVIS INDICATIONS: abdominal pain, hyptension, vomiting, left change TECHNIQUE: Precontrast 5 mm thick sections acquired from the lung apices to the iliac crests. After the administration of intravenous contrast, 2.5 mm thick sections again acquired from the lung apices to the iliac crests. Maximum intensity projection (MIP) oblique sagittal and coronal reformats were then acquired. For radiation dose reduction, the following was used: automated exposure control. COMPARISON: [facility], CT, CT ABDOMEN PELVIS W CON, 06/01/2019, 15:06. FINDINGS: Image quality: Excellent. AORTA: No aneurysm. No evidence of periaortic hemorrhage. No evidence of dissection. CHEST: Lungs and pleura: No acute consolidation. No pleural effusions or pneumothorax. Central and peripheral airways are patent and normal in caliber. Mediastinum: Heart size is normal. Coronary artery calcifications are present. No pericardial effusion. No mediastinal or hilar adenopathy by size criteria. Central pulmonary arteries are normal in size. Esophagus is normal in caliber. No hiatal hernias. Bones and chest wall: No axillary adenopathy by size criteria. Thyroid gland negative. No suspicious bony lesions. No vertebral body compression fractures. ABDOMEN: Vasculature: Celiac trunk and mesenteric arteries are patent. Renal arteries are also patent. Solid organs: Liver is normal in size and enhancement. Nonspecific pelvic calcifications seen in the dome. Gallbladder contracted otherwise unremarkable. Biliary system is non dilated. Pancreas enhances normally. Spleen is normal in size and enhancement. No adrenal nodules. Both kidneys are normal in size and enhancement, without hydronephrosis. Peritoneum and bowel: No free fluid or air. The colon is largely decompressed however suggestion of long segment descending and sigmoid colonic wall thickening is noted. Incidental colonic diverticulosis. Nodes and vessels: No retroperitoneal or mesenteric adenopathy by size criteria. Inferior vena cava is normal in morphology. Scattered vascular calcifications seen in the aorta. Miscellaneous: No ventral hernias. PELVIS: Genitourinary: Bladder wall thickness is normal. Heterogeneous appearance of the prostate, nonspecific Miscellaneous: No inguinal hernias or adenopathy. No ventral hernias. Bones: No suspicious bony lesions. No vertebral body compression fractures. IMPRESSION: No evidence of aortic aneurysm or dissection. No periaortic hemorrhage identified. Suspect low-grade diffuse long segment descending and sigmoid colonic wall thickening raising possibility of mild infectious or inflammatory colitis although suboptimal evaluation given decompressed state of the bowel. Elsewhere, no acute process seen. Dictated by: Valentin Enrique M.D. on 06/18/2019 at 13:07 Approved by: Valentin Enrique M.D. on 06/18/2019 at 13:26
[2019-06-18] MEDS: NITROGLYCERIN OINT 1 INCH/GM OINT...G. 0.5 INCH TOP (11:54)
[2019-06-18] MEDS: HYDROMORPHONE 1 MG INJ IV ×3 (11:54→17:02)
--- NOTE | 2019-06-18 12:28 | PC.NURSE ---
pt to and from CT. tolerated well. reports feeling 6/10 from 10/10 before pain medication. no longer naueous. using urinal frequently with adequate output. cool washcloth to head. skin clammy. NAD.
[2019-06-18 12:36] LABS: Bacteria Urine None Seen; RBC Urine None Seen (0-5/HPF)
[2019-06-18 12:47] LABS: Amorphous Sediment Urine 1+; Culture Indicated Urine Cult Not Indicated; Squamous Epithelial Cell Urine 0-1 /HPF (0-5/HPF); WBC Urine 0-1/HPF (0-5/HPF)
--- NOTE | 2019-06-18 14:16 | PC.NURSE ---
family friends concerned about plan of care--possibly discharging pt to home. asking questions about pt's plavix. Dr Carrasco made aware. family stepped out at this time and advised MD will answer their questions on their return. pt given pain medications and zofran. will PO challenge with BP meds shortly.
[2019-06-18] MEDS: LISINOPRIL 20 MG TABLET PO (14:50)
[2019-06-18] MEDS: METOPROLOL IR 25 MG TABLET 50 MG PO (14:50)
== END 2019-06-18 17:39 | disposition home or self-care (01) ==
PROVIDERS: Emergency Provider Emergency Medicine; PCP Internal Medicine
DX: K52.9 Noninfective gastroenteritis and colitis, unspecified (principal)
CPT/HCPCS: 36415; 71045; 71275; 74174; 80053; 81003; 81015; 82550; 83690; 83735; 84484; 85025; 85610; 85730; 93005; 96374; 96375; 96376; 99285; J1170; J2405; Q9967

== ENCOUNTER → 2019-06-22 10:05 | Outpatient (CLI) | payer OTHER, SELFPAY ==
[2019-06-16 12:29] VITALS: BMI 19.5
[2019-06-22 12:08] LABS: Alanine Aminotransferase 187 IU/L (21-72); Albumin 3.8 g/dL (3.5-5.0); Albumin Globulin Ratio 1.2 (1.0-2.8); Alkaline Phosphatase 93 U/L (38-126); Aspartate Aminotransferase 149 IU/L (17-59); Blood Urea Nitrogen 12 mg/dL (9-20); Calcium 9.4 mg/dL (8.4-10.2); Carbon Dioxide 32 mmol/L (22-32); Chloride 99 mmol/L (98-107); Estimated Glomerular Filt Rate > 60.0 mL/min (>60); Globulin 3.2 g/dL (1.7-4.1); Glucose 156 mg/dL (80-110); HEMOLYSIS < 15 (0-50); Potassium 3.5 mmol/L (3.4-5.1); Sodium 139 mmol/L (137-145)
[2019-06-22 12:37] LABS: Prostate Specific Antigen 8.42 ng/mL (0.10-4.00)
== END ==
PROVIDERS: PCP Internal Medicine; Visit Provider Student in an Organized Health Care Education/Training Program
DX: Z20.5 Contact with and (suspected) exposure to viral hepatitis (principal); B19.20 Unspecified viral hepatitis C without hepatic coma; E78.2 Mixed hyperlipidemia; I10 Essential (primary) hypertension; R97.20 Elevated prostate specific antigen [PSA]
CPT/HCPCS: 36415; 80053; 84153; 87517

== ENCOUNTER → 2019-07-03 16:17 | Outpatient (CLI) | payer OTHER, SELFPAY ==
[2019-06-16 12:29] VITALS: BMI 19.5
[2019-07-06 11:29] LABS: ANA Screen, IFA NEGATIVE (NEGATIVE)
== END ==
PROVIDERS: Family Provider Internal Medicine; PCP Internal Medicine; Visit Provider Internal Medicine Gastroenterology
DX: R94.5 Abnormal results of liver function studies (principal)
CPT/HCPCS: 36415; 82728; 86038; 86255

== ENCOUNTER → 2019-08-03 10:36 | Outpatient (CLI) | payer OTHER, SELFPAY ==
[2019-06-16 12:29] VITALS: BMI 19.5
--- NOTE | 2019-08-03 | DI.NM.S_ITS ---
PROCEDURE: NM FARHAN PERF SPECT R&S PHARM Rest and pharmacological stress myocardial perfusion SPECT with gated imaging and ejection fraction RADIOPHARMACEUTICAL: 10.1 mCi Tc-99m tetrafosmin IV at rest and 24.9 mCi Tc-99m tetrafosmin IV at peak effect of pharmacological stress. Vdu-afl-auxhektu was performed. INDICATIONS: Atherosclerotic heart disease of [place] coronary TECHNIQUE: Radiopharmaceutical was injected at peak stress test, and also at rest. SPECT images were obtained. SPECT myocardial perfusion images were displayed in short axis, horizontal long axis, and vertical long axis views. Gated images were reviewed using Lumen[employer] software. COMPARISON: None. CARDIAC STRESS: A pharmacologic stress test was performed under the supervision of an attending staff, using an infusion of lexiscan 0.4mg IV X1. Hemodynamic data: There is normal blood pressure and heart rate response to pharmacologic stress. Symptoms: The patient denied anginal chest pain. Aminophylline: none EKG: No diagnostic changes of ischemia; frequent PVCs and rare PACs noted. FINDINGS: Raw data: There is good myocardial uptake of radiotracer. No significant motion artifacts. Left ventricle function: Gated images demonstrate normal left ventricular wall thickening. No segmental wall motion abnormalities. No transient ischemic dilation; TID is 0.94 (normal less than 1.3). Left ventricle resting end diastolic volume is 86 mL. Left ventricle stress ejection fraction is 86%; normal range is above 45%. Myocardial perfusion: There is moderately intense fixed inferior wall defect that improves but not resolves with prone imaging suggesting prior non-transmural infarct. No ischemia. SSS (supine) 6, SRS 7. IMPRESSION: Abnormal pharmaceutical nuclear stress test. No ischemia 1) There is moderately intense fixed inferior wall defect that improves but not resolves with prone imaging suggesting prior small non-transmural infarct with artifact. No ischemia. 2) Normal left ventricular size, wall motion, and systolic function (EF post stress 86%). 3) No ECG evidence of ischemia. 4) No angina during the study. 5) No prior nuclear stress test available for comparison. Dictated by: Lukasz Hansen MD on 08/03/2019 at 16:42 Approved by: Lukasz Hansen MD on 08/03/2019 at 16:46
--- NOTE | 2019-08-03 | DI.ECHO.S_ITS ---
[place] [facility]---------+ [facility] +---------+ : : [address] : : : : [id number] : : : : Phone: [phone] Echocardiogram Report + + :Name: RAFIA SNIDER Study Date: 08/03/2019 Height: 67 in : :[facility] Weight: 143 lb : : Gender: Male BSA: 1.8 m2 : :: 1955 Age: 64 yrs BP: 140/88 mmHg: :Reason For Study: CAD : :Ordering Physician: Delfin : :Melo Rao Performed By: Elsa Mcknight : :Referring: Dr. Khang Vasques : + + Interpretation Summary The left ventricle is normal in size, wall thickness, and systolic function without any focal wall motion abnormalities. The ejection fraction is estimated to be 60-65%. Diastolic parameters suggest a relaxation abnormality of the left ventricle, consistent with probable normal filling pressures. The right ventricle grossly appears normal in size with probable normal systolic function. The right ventricular systolic pressure is estimated to be at least 31 mmHg based on an estimated right atrial pressure of 3 mm Hg. The left atrial size is normal. Right atrial size is normal. There is no significant valvular heart disease. The aortic root is mildly dilated. Procedure: A two-dimensional transthoracic echocardiogram with color flow and Doppler was performed. The study quality was technically adequate. There is no prior echocardiogram noted for this patient. The patient was in normal sinus rhythm during the exam. Left Ventricle: The left ventricle is normal in size, wall thickness, and systolic function without any focal wall motion abnormalities. Proximal septal thickening is noted. The ejection fraction is estimated to be 60-65%. Diastolic parameters suggest a relaxation abnormality of the left ventricle, consistent with probable normal filling pressures. Right Ventricle: The right ventricle grossly appears normal in size with probable normal systolic function. Atria: The left atrial size is normal. Right atrial size is normal. The interatrial septum is intact with no evidence for an atrial septal defect. Mitral Valve: The mitral valve is normal in structure and function. There is trace mitral regurgitation. Aortic Valve: The aortic valve opens well. The aortic valve is mildly calcified. No aortic regurgitation is present. Tricuspid Valve: The tricuspid valve is normal in structure and function. There is mild tricuspid regurgitation. The right ventricular systolic pressure is estimated to be at least 31 mmHg based on an estimated right atrial pressure of 3 mm Hg. Pulmonic Valve: The pulmonic valve is not well seen, but is grossly normal. There is trace pulmonic regurgitation. There is no significant valvular heart disease. Great Vessels: The aortic root is mildly dilated. The ascending aorta is at the upper limits of normal in size. The aortic arch is normal in size. The IVC is of normal diameter and collapses greater than 50% with a sniff. This suggests a low right atrial pressure of 3 mm Hg. Pericardium/ Pleura There is no pericardial effusion. There is no pleural effusion. MMode/2D Measurements & Calculations LVIDd: 4.9 cm Ao root diam: 4.2 cm LVIDs: 2.0 cm Aortic Jxn: 3.3 cm FS: 58.7 % asc Aorta Diam: 3.5 cm EPSS: 0.05 cm Ao Arch Diam (Prox Trans): 3.0 cm IVSd: 0.84 cm LVPWd: 0.79 cm LV chi. diameter/BSA (cm/m^2): 2.8 LV sys. diameter/BSA (cm/m^2): 1.2 LA dimension: 2.6 cm RA long axis: 4.6 cm LA A2 area: 16.0 cm2 RA area: 14.1 cm2 LA A4 area: 14.5 cm2 RA vol: 37.1 ml LA length (vol): 4.3 cm RA : 21.2 ml/m2 LA vol: 45.9 ml IVC diam: 1.5 cm LA vol index: 26.2 ml/m2 RVDd major: 5.8 cm RVD1 (basal): 3.4 cm RVD2 (mid): 2.8 cm Doppler Measurements & Calculations Ao V2 max: 119.6 cm/sec MV E max miah: 88.2 cm/sec Ao V2 mean: 79.2 cm/sec MV A max miah: 101.4 cm/sec Ao max P.7 mmHg MV E/A: 0.87 Ao mean P.9 mmHg Med Peak E' Miah: 5.6 cm/sec Ao V2 VTI: 25.5 cm E/E' med: 15.8 Lat Peak E' Miah: 8.0 cm/sec E/E' lat: 11.0 E/e' average: 13.4 MV dec time: 0.29 sec MV P1/2t: 84.7 msec TR max miah: 265.9 cm/sec MV P1/2t max miah: 87.7 cm/sec TR max P.3 mmHg MVA(P1/2t): 2.6 cm2 PA V2 max: 91.0 cm/sec PA V2 mean: 57.5 cm/sec PA mean P.6 mmHg PA Accel Time: 0.17 sec Reading Physician:05:33 PM
--- NOTE | 2019-08-03 14:47 | PM.TREADMILL ---
Cardiac Stress Test Report Referral & Results Date Patient Seen: 08/03/19 Requesting provider: Delfin Alejo Indication: Coronary artery disease Rest ECG: Unremarkable Procedure Note: After both written and verbal informed consent the patient had an IV started by the diagnostic imaging RN and then was hooked up to the treadmill monitoring system. The patient was placed on the treadmill at 1 mile an hour with no elevation and was then injected with the Jasmyne scan material. The Cardiolite was then immediately administered. The patient spent an additional 2-3 minutes on the treadmill before being returned to the [facility] in the supine position. The patient had a normal response to all infused materials. Impression: Normal response to infuse materials as above, please see perfusion imaging report for details regarding possible ischemia Please note: Actual ECG tracings can be found in the PACS system.
== END ==
PROVIDERS: Family Provider Internal Medicine; PCP Internal Medicine; Visit Provider Internal Medicine Cardiovascular Disease
DX: I07.1 Rheumatic tricuspid insufficiency (principal); I25.10 Atherosclerotic heart disease of native coronary artery without angina pectoris
CPT/HCPCS: 78452; 93016; 93017; 93018; 93306; A9502; J2785

== ENCOUNTER 2019-08-15 08:05 | Emergency (ER) | payer OTHER, SELFPAY ==
[2019-06-16 12:29] VITALS: BMI 19.5
[2019-08-15 08:10] VITALS: BP 188/82; PULSE 63; RESP 18; TEMP 36; O2SAT 98; BMI 20.3
--- NOTE | 2019-08-15 08:18 | ED.ABDPAIN ---
HPI - Abdominal Pain General Chief Complaint: Abdominal Pain Stated Complaint: Abd Pain Time Seen by Provider: 08/15/19 08:09 Source: EMS Mode of arrival: EMS Limitations: no limitations History of Present Illness HPI narrative: Patient comes emergency department via EMS after drinking GoLYTELY for a colonoscopy prep, starting yesterday evening. Patient states he was able to drink the entire course of the GoLYTELY, but that he began to get nauseated later in course of drinking, and vomited 8 or 10 times. He states he was also having diarrhea all night. Patient states he just feels weak and nauseated. No fevers. Moderate left upper quadrant abdominal pain. patient has colonoscopy scheduled for new a here at our hospital. Related Data Home Medications Medication Instructions Recorded Confirmed cyclobenzaprine 5 mg tablet 5 mg PO TID PRN tab 03/20/19 08/15/19 aspirin 81 mg tablet,delayed 81 mg PO DAILY 07/06/19 08/15/19 release metoclopramide HCl 10 mg tablet 10 mg PO ACHS 07/06/19 08/15/19 budesonide 6 mg PO QAM 08/15/19 08/15/19 lisinopril 20 mg PO DAILY 08/15/19 08/15/19 metoprolol tartrate 37.5 mg PO BID 08/15/19 08/15/19 omeprazole 40 mg PO BID 08/15/19 08/15/19 simvastatin 40 mg PO DAILY 08/15/19 08/15/19 tamsulosin 0.4 mg PO DAILY 08/15/19 08/15/19 Previous Rx's Medication Instructions Recorded polyethylene glycol 3350 [Miralax] 17 gram PO DAILY #510 gram 06/07/19 ondansetron 4 mg disintegrating 4 mg PO Q6H PRN #30 tab 06/19/19 tablet furosemide 20 mg tablet 20 mg PO DAILY #30 tab 06/29/19 oxycodone 5 mg tablet 5 - 10 mg PO Q4H PRN #360 tab 08/06/19 Allergies Allergy/AdvReac Type Severity Reaction Status Date / Time No Known Drug Allergies Allergy Verified 08/15/19 14:31 Review of Systems Constitutional Constitutional: Denies chills, Denies fatigue, Denies fever(s), Denies frequent falls, Denies lethargy and Denies weakness Eyes Eyes: Denies change in vision, Denies eye discharge, Denies irritation and Denies loss of vision ENT Ears, Nose, Mouth, and Throat: Denies change in voice, Denies dizziness, Denies neck pain, Denies sore throat and Denies throat swelling Cardiovascular Cardiovascular: Denies chest pain, Denies irregular heart rhythm, Denies lightheadedness, Denies palpitations, Denies dyspnea, Denies dyspnea on exertion and Denies orthopnea Respiratory Respiratory: Denies cough, Denies dyspnea, Denies dyspnea on exertion and Denies wheezing Gastrointestinal Gastrointestinal: Denies abdominal pain, Denies change in bowel habits, Reports diarrhea, Reports nausea and Reports vomiting Genitourinary Genitourinary: Denies hematuria, Denies flank pain, Denies urinary incontinence and Denies urinary urgency Musculoskeletal Musculoskeletal: Denies back pain, Denies muscle weakness, Denies neck pain, Denies numbness and Denies tingling Integumentary/Breasts Skin/Breast: Denies pruritus, Denies erythema, Denies rash and Denies wounds Neurologic Neurologic: Denies behavioral changes, Denies confusion, Denies dizziness, Denies frequent falls, Denies loss of vision, Denies numbness, Denies tingling and Denies weakness Psychiatric Psychiatric: Denies anxiety, Denies behavioral changes, Denies confusion, Denies depression, Denies homicidal ideation and Denies suicidal ideation Endocrine Endocrine: Denies fatigue, Denies flushing and Denies palpitations Hematologic/Lymphatic Hematologic/Lymphatic: Denies easy bruising Allergic/Immunologic Allergic/Immunologic: Denies urticaria, Denies throat swelling and Denies wheezing Patient History Medical History Atrial fibrillation (Resolved) Chronic hepatitis (Chronic) Colitis (Chronic) Coronary artery disease involving [place] coronary artery of [place] heart without angina pectoris (Chronic ~2006) Diverticular disease (Chronic) Diverticulosis of large intestine (Chronic 03/31/12) Essential hypertension (Chronic) Hepatitis C (Chronic) Kidney stones (Resolved) Mixed hyperlipidemia (Chronic) Paroxysmal A-fib (Chronic) Prostate cancer (Chronic ~05/2019) Surgical History H/O heart artery stent (Acute ~2006) History of angioplasty (~12/2006) Hx of inguinal hernia surgery (Resolved ~09/20/08) Hx of inguinal hernia surgery (Resolved ~03/07/14) Status post laminectomy Social History marital status: unmarried,single number of children: 3 household members: none lives independently: Yes caregiver/support person: No housing: house pets and animals: No education level: high school (11th grade) occupational status: 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) Smoking Status: Former smoker Tobacco: How many years used: 56 (On and off.) Smokeless tobacco user: other (Marijuana) quit status: has quit before (On and off.) second hand exposure: Yes (On farm[place]oat.) alcohol intake: current substance use type: does not use and marijuana (On and off.) alcohol intake frequency: a few times a week Substance Use Type: marijuana Exam Initial Vital Signs Initial Vital Signs: Vital Signs Temperature 96.8 F L 08/15/19 08:10 Pulse Rate 63 08/15/19 08:10 Respiratory Rate 18 08/15/19 08:10 Blood Pressure 188/82 H 08/15/19 08:10 Pulse Oximetry 98 08/15/19 08:10 Const General: cooperative and well developed Nutritional Appearance: well nourished Orientation: alert, awake, oriented x3 and not confused Other: Patient appears moderately uncomfortable [facility] Head: normocephalic and atraumatic Ears: external ears normal Nose: external nose normal and No nasal discharge Face and sinus: face symmetric and No dry mucous membranes Mouth: oral mucosae normal and moist mucous membranes Teeth and gingiva: dentition normal Eyes General: appearance normal, both eyes and all related structures Eyelids: eyelids normal Conjunctivae: conjunctivae normal Sclera: sclerae normal Pupils: PERRL EOM: EOM intact bilaterally Neck Neck: normal visual inspection, trachea midline, No lymphadenopathy, No midline deformity and No JVD Lymphatic: No lymphedema Chest Chest: normal inspection of the chest Resp Effort & Inspection: normal respiratory effort, able to speak in complete sentences, no respiratory distress and no use of accessory muscles Auscultation: clear to auscultation bilaterally, no rales, no rhonchi and no wheezes Cardio Rate: regular rate Rhythm: regular rhythm Heart Sounds: no click, no gallops, no murmurs and no rubs Pulses: normal peripheral pulses GI Inspection: non-distended Palpation: soft, no hepatosplenomegaly, No guarding, No pulsatile mass and No tender Back/Spine/Pelvis Back: No CVA tenderness Cervical Spine: cervical ROM normal and No pain with cervical ROM Thoracic/Lumbar Spine: thoracic and lumbar spine normal to inspection Skin General: no rashes or lesions noted, No jaundice and No petechiae Neuro General: alert, oriented x3, gait normal and no focal motor deficits Speech: speech normal Extrem General: full ROM, no clubbing, cyanosis or edema, no pedal edema and no calf tenderness Psych Appearance: well kempt Mental Status: mental status grossly normal Attitude: cooperative Thought Content: normal and suicidality Judgment: judgment good Course Course Course Narrative: Patient was treated symptomatically with IV fluids and Zofran, after which he was found to be feeling somewhat better. He requested analgesia, hand was given a single dose of Dilaudid. His laboratory studies were unremarkable, and I felt that he could continue his planned for his scope today. He was kept in the emergency department until the early afternoon, when he was taken up stairs as an outpatient to have his planned endoscopy/colonoscopy.. Orders Ordered: Discontinued Medications Hydromorphone HCl (Dilaudid) 1 mg IV NOW ONE Stop: 08/15/19 09:02 Last Admin: 08/15/19 09:04 Dose: 1 mg Documented by: MONICO Sodium Chloride (Normal Saline 0.9%) 1,000 mls @ 1,000 mls/hr IV BOLUS ONE Stop: 08/15/19 09:15 Last Infusion: 08/15/19 11:06 Dose: 0 mls/hr Documented by: Admin: 08/15/19 08:39 Dose: 1,000 mls/hr Documented by: MONICO Ondansetron HCl (Zofran) 4 mg IV NOW ONE Stop: 08/15/19 08:17 Last Admin: 08/15/19 08:39 Dose: 4 mg Documented by: MONICO Pantoprazole Sodium (Protonix) 40 mg IV NOW ONE Stop: 08/15/19 08:17 Last Admin: 08/15/19 08:39 Dose: 40 mg Documented by: SCANAPO Vital Signs Vital signs: Vital Signs - 8 hr 08/15/19 08:10 Temperature 96.8 F L Pulse Rate 63 Respiratory Rate 18 Blood Pressure 188/82 H Pulse Oximetry 98 MDM - Abdominal Pain Medical Records Attestation: I reviewed the patient's medical records. Lab Data Attestation: I reviewed the patient's lab results. Result diagrams: 08/15/19 08:30 08/15/19 08:30 Labs: Lab Results 08/15/19 08/15/19 08/15/19 Range/Units 08:30 08:30 08:40 WBC 5.6 (4.5-11.0) X10^3/uL RBC 4.73 (4.5-5.9) X10^6/uL Hgb 15.6 (13.5-17.5) g/dL Hct 44.5 (41-53) % MCV 94.1 (80-100) fL MCH 32.9 (26-34) PG MCHC 35.0 (30-36) % RDW 12.5 (11.6-14.8) % Plt Count 134 L (150-400) X10^3/uL Neut % (Auto) 77.3 H (50-75) % Lymph % (Auto) 13.5 L (25-40) % Park % (Auto) 8.7 (3-14) % Eos % (Auto) 0.1 L (2-4) % Baso % (Auto) 0.4 (0-2) % Neut # (Auto) 4300 (7632-9059) /uL Lymph # (Auto) 800 L (4159-5334) /uL Park # (Auto) 500 (0-900) /uL Eos # (Auto) 0 (0-450) /uL Baso # (Auto) 0 (0-100) /uL Sodium 141 (137-145) mmol/L Potassium 3.9 (3.4-5.1) mmol/L Chloride 105 (98-107) mmol/L Carbon Dioxide 28 (22-32) mmol/L BUN 15 (9-20) mg/dL Creatinine 0.70 (0.66-1.25) mg/dL Estimated GFR > 60.0 (>60) mL/min BUN/Creatinine Ratio 21.4 (6-22) Glucose 226 H (80-110) mg/dL Calcium 9.6 (8.4-10.2) mg/dL Total Bilirubin 1.3 (0.2-1.3) mg/dL AST 259 H (17-59) IU/L ALT 251 H (<50) IU/L Alkaline Phosphatase 116 (38-126) U/L Total Protein 7.4 (6.3-8.2) g/dL Albumin 4.1 (3.5-5.0) g/dL Globulin 3.3 (1.7-4.1) g/dL Albumin/Globulin Ratio 1.2 (1.0-2.8) Urine Color Yellow Urine Appearance Clear Urine pH 7.5 (4.5-8.0) Ur Specific [place] 1.010 (1.000-1.035) Urine Protein Negative (Negative) Urine Glucose (UA) Negative (Negative) g/dL Urine Ketones 1+ H (NEGATIVE) Urine Occult Blood Negative (Negative) Urine Nitrate Negative (Negative) Urine Bilirubin Negative (NEGATIVE) Urine Urobilinogen 0.2 (0.2) E.U./dL Ur Leukocyte Esterase Negative (NEGATIVE) Urine RBC None seen (0-5/HPF) Urine WBC None seen (0-5/HPF) Amorphous Sediment 2+ Urine Bacteria None seen (None) Ur Culture Indicated? Cult not indicated Discharge Plan Departure Patient Disposition: Home Clinical Impression: Vomiting Qualifiers: Vomiting type: unspecified Vomiting Intractability: non-intractable Nausea presence: with nausea Qualified Code(s): R11.2 - Nausea with vomiting, unspecified Discharge Date/Time: 08/15/19 11:05 Instructions: DI for Vomiting -- Adult Activity Restrictions/Additional Instructions: Please go straight to check in for your colonoscopy. Prescriptions: No Action ondansetron 4 mg tablet,disintegrating 4 mg PO Q6H PRN (Reason: Nausea) Qty: 30 RF: 3 furosemide 20 mg tablet 20 mg PO DAILY Qty: 30 RF: 2 oxycodone 5 mg tablet 5 - 10 mg PO Q4H PRN (Reason: pain) Qty: 360 RF: 0 cyclobenzaprine 5 mg tablet 5 mg PO TID PRN (Reason: Spasms) RF: 0 aspirin 81 mg tablet,delayed release (DR/EC) 81 mg PO DAILY RF: 0 polyethylene glycol 3350 [Miralax] 17 gram/dose powder 17 gram PO DAILY Qty: 510 RF: 0 metoclopramide HCl 10 mg tablet 10 mg PO ACHS RF: 0 metoprolol tartrate 50 mg tablet 37.5 mg PO BID RF: 0 lisinopril 20 mg tablet 20 mg PO DAILY RF: 0 omeprazole 40 mg capsule,delayed release(DR/EC) 40 mg PO BID RF: 0 simvastatin 40 mg tablet 40 mg PO DAILY RF: 0 tamsulosin 0.4 mg capsule 0.4 mg PO DAILY RF: 0 budesonide 3 mg capsule,delayed,extend.release 6 mg PO QAM RF: 0 Referrals: Khang Vasques MD [Primary Care Provider] -
[2019-08-15 08:38] LABS: Add Manual Diff / Slide Review NO; Basophils Absolute Auto 0 /uL (0-100); Basophils Percent Auto 0.4 % (0-2); Eosinophils Absolute Auto 0 /uL (0-450); Eosinophils Percent Auto 0.1 % (2-4); Hematocrit 44.5 % (41-53); Hemoglobin 15.6 g/dL (13.5-17.5); Lymphocytes Absolute Auto 800 /uL (1100-4500); Lymphocytes Percent Auto 13.5 % (25-40); Mean Corpuscular Hemoglobin 32.9 PG (26-34); Mean Corpuscular Volume 94.1 fL (80-100); Monocytes Absolute Auto 500 /uL (0-900); Monocytes Percent Auto 8.7 % (3-14); Neutrophils Absolute Auto 4300 /uL (1500-7000); Neutrophils Percent Auto 77.3 % (50-75); Platelet Count 134 X10^3/uL (150-400); Red Blood Cell Count 4.73 X10^6/uL (4.5-5.9); Red Cell Distribution Width 12.5 % (11.6-14.8); White Blood Cell Count 5.6 X10^3/uL (4.5-11.0)
[2019-08-15] MEDS: SODIUM CHLORIDE 0.9% 1,000 ML 1000 ML IV (08:39)
[2019-08-15] MEDS: ONDANSETRON 4 MG/2 ML INJ IV (08:39)
[2019-08-15] MEDS: PANTOPRAZOLE 40 MG VIAL IV (08:39)
[2019-08-15 08:47] LABS: Bacteria Urine None Seen; RBC Urine None Seen (0-5/HPF); WBC Urine None Seen (0-5/HPF)
[2019-08-15 08:50] LABS: Appearance Urine UA CLEAR; Bilirubin Urine UA NEGATIVE (NEGATIVE); Color Urine UA YELLOW; Glucose Urine UA NEGATIVE (Negative); Ketones Urine UA 1+ (NEGATIVE); Leukocyte Esterase Urine UA NEGATIVE (NEGATIVE); Nitrite Urine UA NEGATIVE (Negative); Occult Blood Urine UA NEGATIVE (Negative); Protein Urine UA NEGATIVE (Negative); Urobilinogen Urine UA 0.2 E.U./dL (0.2); pH Urine UA 7.5 (4.5-8.0)
[2019-08-15 08:50] LABS: Alanine Aminotransferase 251 IU/L (<50); Albumin 4.1 g/dL (3.5-5.0); Albumin Globulin Ratio 1.2 (1.0-2.8); Alkaline Phosphatase 116 U/L (38-126); Aspartate Aminotransferase 259 IU/L (17-59); BUN Creatinine Ratio 21.4 (6-22); Bilirubin Total 1.3 mg/dL (0.2-1.3); Blood Urea Nitrogen 15 mg/dL (9-20); Calcium 9.6 mg/dL (8.4-10.2); Carbon Dioxide 28 mmol/L (22-32); Chloride 105 mmol/L (98-107); Estimated Glomerular Filt Rate > 60.0 mL/min (>60); Globulin 3.3 g/dL (1.7-4.1); Glucose 226 mg/dL (80-110); HEMOLYSIS < 15 (0-50); Potassium 3.9 mmol/L (3.4-5.1); Sodium 141 mmol/L (137-145); Total Protein 7.4 g/dL (6.3-8.2)
[2019-08-15 08:59] LABS: Amorphous Sediment Urine 2+; Culture Indicated Urine Cult Not Indicated
[2019-08-15] MEDS: HYDROMORPHONE 1 MG INJ IV (09:04)
[2019-08-15 09:07] VITALS: BP 181/86; PULSE 57; RESP 18; O2SAT 100
== END 2019-08-15 11:05 | disposition home or self-care (01) ==
PROVIDERS: Emergency Provider Emergency Medicine; PCP Internal Medicine
DX: R11.2 Nausea with vomiting, unspecified (principal)
CPT/HCPCS: 36415; 80053; 81001; 85025; C9113; J1170; J2405

== ENCOUNTER 2019-08-15 13:09 | Observation (INO) | payer OTHER, SELFPAY ==
[2019-06-16 12:29] VITALS: BMI 19.5
[2019-08-15] VITALS (12 sets, daily range): BP systolic 85–199; BP diastolic 57–108; PULSE 54–94; RESP 12–20; TEMP 36.7–38.2; O2SAT 97–99; BMI 21.1; BMI 20.5
--- NOTE | 2019-08-15 | PATH_ITS ---
[facility] Accession Number: [id number] . 01 Material submitted: . colon - RANDOM BIOPSIES LEFT COLON . 02 Diagnosis: Left Colon, Random Biopsies: Colonic mucosa with no diagnostic abnormality. Negative for active, chronic, and microscopic colitis. Negative for dysplasia and malignancy. . JRL 08/17/2019 1041 Local . 02 Electronically signed: . Saida Lucero MD, Pathologist NPI- [id number] . 01 Gross description: . RANDOM BIOPSIES LEFT COLON: Received in formalin are multiple fragment(s) of huff, soft tissue measuring 0.7 x 0.7 x 0.1 cm in aggregate submitted entirely in 1 cassette(s) /QBJ 08/16/2019 0532 Local . 02 Pathologist provided ICD-10: R10.84 . 02 CPT . 049112 Performed at: 01 [facility] [address], [place], [place] [id number] MD Brian Lynn MD Phone: [phone] Performed at: [address] [facility] [address] [place], [place] [id number] MD Saida Lucero MD Phone: [phone]
[2019-08-15] MEDS: SODIUM CHLORIDE 0.9% 1,000 ML 70 ML IV (14:50)
--- NOTE | 2019-08-15 14:58 | SUR.PREOP ---
Dr. Goyal and anesthesiologist made aware of hypertension, abdominal pain, nausea, and malaise. New order received for zofran.
[2019-08-15] MEDS: ONDANSETRON 4 MG/2 ML INJ IV ×2 (15:04→20:23)
--- NOTE | 2019-08-15 15:28 | P.HP_ITS ---
History of Present Illness History of Present Illness Date Patient Seen: 08/15/19 Chief complaint: [id number] Narrative: Patient presented for colonoscopy. He was last in the office on July 03, 2019 for persistent abdominal pain, nausea, and vomiting. Prior to that he had been seen in the office on May 28, 2019. After that he did undergo an upper endoscopy at [facility]. He has continued to have weight loss, nausea, vomiting, and abdominal pain. He was actually seen in the emergency department earlier today for persistent symptoms. He does have a history of abnormal CT scan March 16, 2019 which did reveal diverticulosis without acute diverticulitis with mild segmental wall thickening of the sigmoid colon rule out infectious versus inflammatory versus mass. Patient History Medical History Atrial fibrillation (Resolved) Chronic hepatitis (Chronic) Colitis (Chronic) Coronary artery disease involving [place] coronary artery of [place] heart without angina pectoris (Chronic ~2006) Diverticular disease (Chronic) Diverticulosis of large intestine (Chronic 03/31/12) Essential hypertension (Chronic) Hepatitis C (Chronic) Kidney stones (Resolved) Mixed hyperlipidemia (Chronic) Paroxysmal A-fib (Chronic) Prostate cancer (Chronic ~05/2019) Surgical History H/O heart artery stent (Acute ~2006) History of angioplasty (~12/2006) Hx of inguinal hernia surgery (Resolved ~09/20/08) Hx of inguinal hernia surgery (Resolved ~03/07/14) Status post laminectomy Family & Social History Social History: household members none lives independently Yes caregiver/support person No Tobacco & Substance use: Smoking Status Former smoker alcohol intake current alcohol intake frequency a few times a week Substance Use Type marijuana Meds Home Medications and Allergies Home Medications Medication Instructions Recorded Confirmed Type cyclobenzaprine 5 mg tablet 5 mg PO TID PRN tab 03/20/19 08/15/19 History polyethylene glycol 3350 [Miralax] 17 gram PO DAILY #510 gram 06/07/19 08/15/19 Rx ondansetron 4 mg disintegrating 4 mg PO Q6H PRN #30 tab 06/19/19 08/15/19 Rx tablet furosemide 20 mg tablet 20 mg PO DAILY #30 tab 06/29/19 08/15/19 Rx aspirin 81 mg tablet,delayed 81 mg PO DAILY 07/06/19 08/15/19 History release metoclopramide HCl 10 mg tablet 10 mg PO ACHS 07/06/19 08/15/19 History oxycodone 5 mg tablet 5 - 10 mg PO Q4H PRN #360 tab 08/06/19 08/15/19 Rx budesonide 6 mg PO QAM 08/15/19 08/15/19 History lisinopril 20 mg PO DAILY 08/15/19 08/15/19 History metoprolol tartrate 37.5 mg PO BID 08/15/19 08/15/19 History omeprazole 40 mg PO BID 08/15/19 08/15/19 History simvastatin 40 mg PO DAILY 08/15/19 08/15/19 History tamsulosin 0.4 mg PO DAILY 08/15/19 08/15/19 History Allergies Allergy/AdvReac Type Severity Reaction Status Date / Time No Known Drug Allergies Allergy Verified 08/15/19 14:31 Review of Systems Review of Systems ROS Unobtainable: All systems reviewed & are unremarkable except as noted in HPI and below Constitutional Constitutional: Reports anorexia, Reports poor appetite, Reports weakness and Reports weight loss Gastrointestinal Gastrointestinal: Reports abdominal pain, Reports nausea and Reports vomiting Neurologic Neurologic: Reports weakness Exam Vital Signs (past 8 hours): - 08/15/19 14:35 Temperature 98.1 F Pulse Rate 59 L Respiratory Rate 14 Blood Pressure 199/97 H Pulse Oximetry 98 Oxygen Delivery Method Room Air Const General: cooperative, frail appearing and ill appearing Nutritional Appearance: thin and underweight Orientation: alert and awake Resp Effort & Inspection: normal respiratory effort and able to speak in complete sentences Auscultation: clear to auscultation bilaterally Cardio Rate: regular rate Rhythm: abnormal rhythm irregularly irregular Heart Sounds: S1 normal and S2 normal GI Palpation: soft and tender Auscultation: normal bowel sounds Extrem Right lower extremity: no edema Left lower extremity: no edema Assessment & Plan Assessment & Plan narrative: 1. Abdominal pain 2. Nausea and vomiting 3. Abnormal abdominal CT scan - Colonoscopy today, further recommendations to follow (patient had initially been ordered for EGD and colonoscopy, however he did have a upper endoscopy performed in May at [facility]. We will proceed with colonoscopy.)
--- NOTE | 2019-08-15 16:15 | PM.OP.ENDO ---
Operative Date/Time/Diagnoses Date of procedure: 08/15/19 Time of procedure: 15:45 Procedure Notes Procedure in detail: Surgeon: Lianne Goyal DO Procedure: Colonoscopy with biopsy Preoperative diagnosis: 1. Abdominal pain 2. Abnormal CT with sigmoid wall thickening Postoperative diagnosis: 1. Diverticulosis of the sigmoid and descending colon 2. Mild loss of vascularity within the descending and sigmoid colon, biopsied to rule out underlying colitis Medications: Monitored anesthesia care, see anesthesia note Preanesthesia Assessment An H and P was performed/updated and the Px?s ASA class is 3. The procedure was discussed in detail with the patient. The potential risks and complications including infection, bleeding, missed lesions, perforation, need for surgery in case of perforation, prolonged hospital stay, and were explained. A brief question and answer period was allotted and once all questions were answered, informed consent was obtained. The patient was brought back to the procedure room and placed on standard monitoring. The patient?s vital signs were monitored continuously throughout the entire procedure. Prior to starting, a timeout was performed to confirm the patient?s identity, allergies, medications, and procedure. Procedure in detail The patient was placed in left lateral decubitus position and once adequate sedation was obtained a PETR was performed. The digital rectal examination did not reveal any palpable lesions. The tip of the colonoscope was placed in the anal canal and advanced without difficulty all the way to the cecum which was identified by the appendiceal orifice and the ileocecal valve. Careful examination of all marques of the colon was performed with irrigation of any residual stool. Patient's colon was noted to be tortuous. He did have stenotic diverticular disease throughout the sigmoid colon. Abdominal pressure and position change to supine position were utilized to achieve cecal intubation. Diverticulosis noted in the sigmoid and descending colon. Patient had a mild decrease of vascular pattern through the descending and sigmoid colon. Since this area also had possible wall thickening on previous CT biopsies were obtained to rule out underlying colitis. The patient tolerated the procedure well and will be brought back to the recovery area to be discharged once criteria are met. The prep was judged to be adequate to identify polyps greater than 6 mm. The withdrawal time was 10. The total physician intraservice time was 29min. Complications There were no complications and estimated blood loss was minimal. Recommendations: Resume previous diet Continue outPx medications Follow up pathology results Repeat colonoscopy for screening in 10 years Schedule office follow-up An emergency contact number was given to the patient for any complications related to the procedure
--- NOTE | 2019-08-15 16:59 | SUR.PHASEI ---
PACU Phase I note: Patient arrived to PACU at 1620. Sedated. Respirations regular and unlabored. SBP 80-90's after receiving Labetolol by Dr. Medrano in OR. 1655. SBP 180's, similar to baseline. Dr. Goyal at bedside speaking with patient. Recommended to patient that he take his medication for his BP. Patient states that he does not feel well and has not since May. Dr. Goyal aware. Handoff report given to Arline Garrett RN at 1703
--- NOTE | 2019-08-15 18:04 | SUR.PHASEII ---
Pt. continues to be experiencing pain (abd.) rates it at a 8. Pt. would rather be admitted to hospital, however the pt. would have to go to ER get registered and reassessed rather than be admitted directly into the hospital. Pt. given the choice of d/c'ing from phase II and going directly to ER or returning to private residence. addendum to note, [employer] charge account identification clerk suggested to call pt. PCP Dr. Vasques to see if PCP would be able to direct admit the pt., currently pending call back from internal control analyst. reported off to Vicky HARTMANN
--- NOTE | 2019-08-15 18:53 | SUR.PHASEII ---
Per Dr Ochoa; admit patient to inpt obs under Dr Vasques. He will write orders. Also Dr Ochoa requested Dr Goyla's number to consult. Notified Dr Goyal of change in status.
--- NOTE | 2019-08-15 19:09 | PM.HP.1 ---
History of Present Illness History of Present Illness Date Patient Seen: 08/15/19 Time Patient Seen: 19:10 Chief complaint: [id number] Narrative: 64-year-old male patient who underwent colonoscopy earlier this afternoon. Patient is having some ongoing chronic abdominal pain weight loss and failure to thrive. He has had multiple evaluations by gastroenterology and I guess has had an upper endoscopy and previously had scheduled colonoscopy but was unable to complete that. Patient underwent colonoscopy today. Patient's history is as follows. Early this morning patient went to the emergency department because of increasing abdominal pain nausea and inability to keep things down. He was in the emergency department most in the morning. Getting fluids and pain under control. They thought maybe that he would have to cancel his colonoscopy but they went through and did again. I talked to the colonoscopy specialist. Who said that they found normal colonoscopy they did do biopsies they did see active colitis has a history of diverticulosis but no acute diverticulitis and no colon masses. He has had on multiple CT scans thickening of his sigmoid colon. They were worried about underlying malignancy which was not found on the procedure today. On discussing this with the specialist. He said the procedure went off well without any concerns. They're concerned about perforation. After his procedure he has been doing fine. But patient is still feeling quite ill. He is not keeping anything down. He is content playing of abdominal pain and nausea. He doesn't feel like he can go home. Specialist contacted me to have him admitted to the hospital for ongoing pain nausea dehydration. In the recovery room his vital signs have been slightly elevated. He has had a low-grade temperature. He is complaining of abdominal pain. Nausea which seems to be his chronic complaints that he has had. He has had ongoing history of abdominal pain nausea inability to eat and significant weight loss. The patient has recently been diagnosed with prostate cancer hepatitis C he has a history of diverticular disease hyperlipidemia hypertension coronary artery disease. Patient History Medical History Atrial fibrillation (Resolved) Chronic hepatitis (Chronic) Colitis (Chronic) Coronary artery disease involving [place] coronary artery of [place] heart without angina pectoris (Chronic ~2006) Diverticular disease (Chronic) Diverticulosis of large intestine (Chronic 03/31/12) Essential hypertension (Chronic) Hepatitis C (Chronic) Kidney stones (Resolved) Mixed hyperlipidemia (Chronic) Paroxysmal A-fib (Chronic) Prostate cancer (Chronic ~05/2019) Surgical History H/O heart artery stent (Acute ~2006) History of angioplasty (~12/2006) Hx of inguinal hernia surgery (Resolved ~09/20/08) Hx of inguinal hernia surgery (Resolved ~03/07/14) Status post laminectomy Family & Social History Social History: household members none lives independently Yes caregiver/support person No Tobacco & Substance use: Smoking Status Former smoker alcohol intake current alcohol intake frequency a few times a week Substance Use Type marijuana Meds Home Medications and Allergies Home Medications Medication Instructions Recorded Confirmed Type cyclobenzaprine 5 mg tablet 5 mg PO TID PRN tab 03/20/19 08/15/19 History polyethylene glycol 3350 [Miralax] 17 gram PO DAILY #510 gram 06/07/19 08/15/19 Rx ondansetron 4 mg disintegrating 4 mg PO Q6H PRN #30 tab 06/19/19 08/15/19 Rx tablet furosemide 20 mg tablet 20 mg PO DAILY #30 tab 06/29/19 08/15/19 Rx aspirin 81 mg tablet,delayed 81 mg PO DAILY 07/06/19 08/15/19 History release metoclopramide HCl 10 mg tablet 10 mg PO ACHS 07/06/19 08/15/19 History oxycodone 5 mg tablet 5 - 10 mg PO Q4H PRN #360 tab 08/06/19 08/15/19 Rx budesonide 6 mg PO QAM 08/15/19 08/15/19 History lisinopril 20 mg PO DAILY 08/15/19 08/15/19 History metoprolol tartrate 37.5 mg PO BID 08/15/19 08/15/19 History omeprazole 40 mg PO BID 08/15/19 08/15/19 History simvastatin 40 mg PO DAILY 08/15/19 08/15/19 History tamsulosin 0.4 mg PO DAILY 08/15/19 08/15/19 History Allergies Allergy/AdvReac Type Severity Reaction Status Date / Time No Known Drug Allergies Allergy Verified 08/15/19 14:31 Exam Vital Signs (past 8 hours): - 08/15/19 14:35 08/15/19 16:20 08/15/19 16:25 Temperature 98.1 F Pulse Rate 59 L 94 H 94 H Respiratory Rate 14 20 20 Blood Pressure 199/97 H 101/72 90/61 Pulse Oximetry 98 98 98 08/15/19 16:30 08/15/19 16:32 08/15/19 16:47 Temperature 98.1 F Pulse Rate 93 H 92 H 54 L Respiratory Rate 20 17 14 Blood Pressure 85/57 L 91/62 187/97 H Pulse Oximetry 97 97 98 08/15/19 16:55 08/15/19 17:05 08/15/19 17:30 Temperature 98.4 F 99.4 F 100.4 F H Pulse Rate 69 60 64 Respiratory Rate 16 13 12 Blood Pressure 182/108 H 198/97 H 190/95 H Pulse Oximetry 98 99 98 08/15/19 18:02 Temperature 100.8 F H Pulse Rate 64 Respiratory Rate 12 Blood Pressure 189/94 H Pulse Oximetry 98 Oxygen Delivery Method Room Air Narrative Exam Narrative: Gen.: Alert malnourished gentleman HEENT: NCAT PERRLA tympanic membranes are clear nares are patent oral mucosa is moist no tonsillar hypertrophy neck is supple without lymphadenopathy no thyroid enlargement. Cardio: S1-S2 regular rate and rhythm no murmurs appreciated Respiratory: Lungs are clear to auscultation no wheezes or crackles normal respiratory effort. Abdomen: Diffuse abdominal pain and tenderness Extremities: Warm dry perfused Neurologic: Grossly intact. Assessment & Plan Assessment & Plan narrative: Abdominal pain nausea status post colonoscopy this afternoon. Plan. Patient has been having abdominal pain and nausea now for number months. Had a colonoscopy workup today as part of that process. He was in the emergency room this morning. After his colonoscopy complaining of abdominal pain nausea inability to eat. Had some low-grade temperature and just overall not feeling well. He will be admitted to the hospital for further evaluation and workup of this abdominal pain. I'll provide IV fluids pain medication will place him on a clear liquid diet pain control and antiemetics. Nothing significant on finding of his colon today such as cancer. Biopsies were done there was no active tumor. Question underlying cause of pain and discomfort. Requesting narcotic pain medication which will be provided. May need further workup and evaluation of his pain. Rule out underlying malignancy. Malnutrition severe. Patient has had significant weight loss failure to thrive difficulty with intake and continuing to lose weight. Well nutrition consult for him today for further evaluation of this and provide recommendations on dietary supplementation in food for him during this process. Prostate cancer PSA is elevated. I don't think this is the cause of his chronic abdominal pain. Will need ongoing workup and management down the road. Hepatitis chronic. Recently diagnosed with hepatitis-C. Normal CT scan as far as liver and pancreatic masses go. Don't think this is the cause of his ongoing abdominal pain and nausea. The well and added a lipase to his blood testing. Atrial fibrillation recent stress testing for coronary artery disease an echocardiogram was looking pretty well. He is not currently on anticoagulation. Will put him on DVT prophylaxis Lovenox. Disposition and plan patient will be admitted to the hospital for observation
--- NOTE | 2019-08-15 20:11 | SUR.PHASEII ---
Dr Ochoa wrote xfer orders and patient transferred to floor as obs pt. Report given to Cindy, Acute care, RN. Patient denied nausea, but continued to c/o pain. Unfortunately Dr Goyal could not prescribe narcotics to patient so unable to address pain in Phase 11.
[2019-08-15 20:22] LABS: Add Manual Diff / Slide Review NO; Basophils Absolute Auto 0 /uL (0-100); Basophils Percent Auto 0.2 % (0-2); Eosinophils Absolute Auto 0 /uL (0-450); Hematocrit 40.3 % (41-53); Lymphocytes Absolute Auto 700 /uL (1100-4500); Lymphocytes Percent Auto 12.3 % (25-40); Mean Corpuscular HGB Conc 34.7 % (30-36); Mean Corpuscular Hemoglobin 32.9 PG (26-34); Mean Corpuscular Volume 94.8 fL (80-100); Monocytes Absolute Auto 500 /uL (0-900); Monocytes Percent Auto 9.2 % (3-14); Neutrophils Absolute Auto 4300 /uL (1500-7000); Neutrophils Percent Auto 78.3 % (50-75); Platelet Count 123 X10^3/uL (150-400); Red Blood Cell Count 4.25 X10^6/uL (4.5-5.9); Red Cell Distribution Width 12.6 % (11.6-14.8); White Blood Cell Count 5.5 X10^3/uL (4.5-11.0)
[2019-08-15] MEDS: LACTATED RINGERS 1,000 ML 100 ML IV (20:23)
[2019-08-15 20:31] LABS: Alanine Aminotransferase 197 IU/L (<50); Albumin 3.6 g/dL (3.5-5.0); Albumin Globulin Ratio 1.2 (1.0-2.8); Alkaline Phosphatase 88 U/L (38-126); Aspartate Aminotransferase 176 IU/L (17-59); BUN Creatinine Ratio 18.3 (6-22); Bilirubin Total 0.9 mg/dL (0.2-1.3); Blood Urea Nitrogen 11 mg/dL (9-20); Carbon Dioxide 27 mmol/L (22-32); Chloride 105 mmol/L (98-107); Estimated Glomerular Filt Rate > 60.0 mL/min (>60); Glucose 210 mg/dL (80-110); HEMOLYSIS < 15 (0-50); Lipase 42 U/L (23-300); Magnesium 1.7 mg/dL (1.6-2.3); Potassium 3.5 mmol/L (3.4-5.1); Sodium 139 mmol/L (137-145); Total Protein 6.6 g/dL (6.3-8.2)
[2019-08-15 20:32] LABS: Lactate (Lactic Acid) 2.6 mmol/L (0.7-2.1)
--- NOTE | 2019-08-15 20:34 | PC.NURSE ---
pain pt to AC from PACU and states 9/10 abdominal pain. just like there's a sword in there. order for PO oxycodone. pt states unable to take currently r/t nausea/vomiting in PACU. medicated with zofran and IVF started. page to for IV pain medication. pt states has taken IV dilaudid in the past and it has been effective.
[2019-08-15] MEDS: HYDROMORPHONE 1 MG INJ IV (20:38)
[2019-08-15] MEDS: METOPROLOL IR 50 MG TABLET 37.5 MG PO (21:02)
[2019-08-15] MEDS: PANTOPRAZOLE 40 MG TABLET PO (21:04)
[2019-08-15] MEDS: METOCLOPRAMIDE HCL 10 MG TABLET PO (22:00)
[2019-08-15 22:16] LABS: Reflexed Lactate in 2 Hours Y
[2019-08-15 22:45] LABS: Lactate 2HR (Lactic Acid Rflx) 2.2 mmol/L (0.7-2.1)
[2019-08-16] MEDS: HYDROMORPHONE 1 MG INJ IV (00:31)
[2019-08-16 01:00] VITALS: BP 184/92; PULSE 50; RESP 12; TEMP 37.2; O2SAT 99
--- NOTE | 2019-08-16 01:20 | PC.NURSE ---
Notified Dr Ochoa of patient high blood pressure and low HR running in the 50s. TO Dr Ochoa give Lisinopril 20mg now.
[2019-08-16 01:44] VITALS: BP 139/83; PULSE 75
[2019-08-16] MEDS: LISINOPRIL 20 MG TABLET PO ×2 (01:44→08:27)
[2019-08-16 05:50] VITALS: BP 144/79; PULSE 58; RESP 16; TEMP 37.1; O2SAT 99
[2019-08-16] MEDS: METOCLOPRAMIDE HCL 10 MG TABLET PO (05:51)
[2019-08-16] MEDS: LACTATED RINGERS 1,000 ML 100 ML IV (05:51)
[2019-08-16] MEDS: OXYCODONE IR 10 MG TABLET PO (05:51)
[2019-08-16 07:20] VITALS: BP 145/96; PULSE 56; RESP 16; TEMP 36.4; O2SAT 97
[2019-08-16] MEDS: METOPROLOL IR 50 MG TABLET 37.5 MG PO (08:26)
[2019-08-16] MEDS: ENOXAPARIN 30 MG/0.3 ML SYRINGE SUBCUT (08:26)
[2019-08-16] MEDS: PANTOPRAZOLE 40 MG TABLET PO (08:27)
[2019-08-16] MEDS: ASPIRIN EC 81 MG TABLET PO (08:27)
[2019-08-16] MEDS: TAMSULOSIN 0.4 MG CAPSULE PO (08:27)
[2019-08-16] MEDS: BUDESONIDE 3 MG CAP 6 MG PO (08:28)
--- NOTE | 2019-08-16 08:31 | PM.DS.1 ---
History of Present Illness History of Present Illness Date Patient Seen: 08/16/19 Time Patient Seen: 08:32 Chief complaint: [id number] Narrative: 64-year-old male patient who underwent colonoscopy earlier this afternoon. Patient is having some ongoing chronic abdominal pain weight loss and failure to thrive. He has had multiple evaluations by gastroenterology and I guess has had an upper endoscopy and previously had scheduled colonoscopy but was unable to complete that. Patient underwent colonoscopy today. Patient's history is as follows. Early this morning patient went to the emergency department because of increasing abdominal pain nausea and inability to keep things down. He was in the emergency department most in the morning. Getting fluids and pain under control. They thought maybe that he would have to cancel his colonoscopy but they went through and did again. I talked to the colonoscopy specialist. Who said that they found normal colonoscopy they did do biopsies they did see active colitis has a history of diverticulosis but no acute diverticulitis and no colon masses. He has had on multiple CT scans thickening of his sigmoid colon. They were worried about underlying malignancy which was not found on the procedure today. On discussing this with the specialist. He said the procedure went off well without any concerns. They're concerned about perforation. After his procedure he has been doing fine. But patient is still feeling quite ill. He is not keeping anything down. He is content playing of abdominal pain and nausea. He doesn't feel like he can go home. Specialist contacted me to have him admitted to the hospital for ongoing pain nausea dehydration. In the recovery room his vital signs have been slightly elevated. He has had a low-grade temperature. He is complaining of abdominal pain. Nausea which seems to be his chronic complaints that he has had. He has had ongoing history of abdominal pain nausea inability to eat and significant weight loss. The patient has recently been diagnosed with prostate cancer hepatitis C he has a history of diverticular disease hyperlipidemia hypertension coronary artery disease. {from Dr. Ochoa's H&P} Discharge Providers Provider Date of admission: 08/15/19 Discharge Date: 08/16/19 Primary care physician: Khang Vasques MD Consults: 08/15/19 19:55 Consult to Dietitian, Adult Routine Comment: Reason For Exam: manutrtion Discharge provider: Khang Vasques MD Summary Hospital Course Discharge Diagnosis: 1. Intractable nausea and vomiting 2. Intractable abdominal pain 3. Prostate cancer 4. Paroxysmal atrial fibrillation 5. Chronic hepatitis of uncertain etiology (in addition to chronic hepatitis C) 6. Coronary artery disease 7. Chronic hepatitis C 8. Sigmoid colitis 9. Chronic persistent abdominal pain with nausea and vomiting of uncertain etiology Hospital Course: Patient was admitted for colonoscopy to continue his workup for his chronic abdominal symptoms. He actually presented to the emergency department prior to the colonoscopy because of severe abdominal pain cramping with nausea and vomiting. After being hydrated and somewhat controlled with parental medication in the emergency department he underwent the colonoscopy. However in the recovery area he has symptoms were quite severe and or unable to be controlled and was not felt appropriate to return him home. He was admitted to the hospital for observation overnight mostly to ensure there is no evidence of complication related to his colonoscopy. Patient was afebrile, had significant reduction is abdominal symptoms although they did not vanished they went back to baseline. His abdominal exam was benign Therefore was felt as though he had returned to approximately baseline was felt to be safe for discharge home without evidence of complication related to the colonoscopy As per GI the etiology was ongoing abdominal symptoms which includes persistent abdominal pain nausea and vomiting etc are still on identified. No evidence of mass lesion no evidence of ischemic colitis no clear etiology at all to explain his symptoms Patient will follow up with GI as previously scheduled in all see him back in the clinic as well in the next 10 days or so Exam Vital Signs (past 8 hours): - 08/16/19 01:00 08/16/19 01:44 08/16/19 05:50 Temperature 99.0 F 98.8 F Pulse Rate 50 L 75 58 L Respiratory Rate 12 16 Blood Pressure 184/92 H 139/83 144/79 H Pulse Oximetry 99 99 08/16/19 07:20 Temperature 97.5 F L Pulse Rate 56 L Respiratory Rate 16 Blood Pressure 145/96 H Pulse Oximetry 97 Oxygen Delivery Method Room Air Oxygen Flow Rate 0 Narrative Exam Narrative: HEENT-unremarkable Lungs-clear Heart-regular rate and rhythm Abdomen-rare bowel tones soft no rebound no guarding mild tenderness to palpation throughout (basically similar to previous exams) Extremities-no cyanosis clubbing or edema Objective Labs Result Diagrams: 08/15/19 20:12 08/15/19 20:12 Labs: Laboratory Results - last 24 hr 08/15/19 08/15/19 08/15/19 20:12 20:12 20:12 WBC 5.5 RBC 4.25 L Hgb 14.0 Hct 40.3 L MCV 94.8 MCH 32.9 MCHC 34.7 RDW 12.6 Plt Count 123 L Neut % (Auto) 78.3 H Lymph % (Auto) 12.3 L [place] % (Auto) 9.2 Eos % (Auto) 0.0 L Baso % (Auto) 0.2 Neut # (Auto) 4300 Lymph # (Auto) 700 L [place] # (Auto) 500 Eos # (Auto) 0 Baso # (Auto) 0 Sodium 139 Potassium 3.5 Chloride 105 Carbon Dioxide 27 BUN 11 Creatinine 0.60 L Estimated GFR > 60.0 BUN/Creatinine Ratio 18.3 Glucose 210 H Lactate 2.6 H Calcium 9.0 Magnesium 1.7 Total Bilirubin 0.9 AST 176 H ALT 197 H Alkaline Phosphatase 88 Total Protein 6.6 Albumin 3.6 Globulin 3.0 Albumin/Globulin Ratio 1.2 Lipase 42 08/15/19 22:26 WBC RBC Hgb Hct MCV MCH MCHC RDW Plt Count Neut % (Auto) Lymph % (Auto) [place] % (Auto) Eos % (Auto) Baso % (Auto) Neut # (Auto) Lymph # (Auto) [place] # (Auto) Eos # (Auto) Baso # (Auto) Sodium Potassium Chloride Carbon Dioxide BUN Creatinine Estimated GFR BUN/Creatinine Ratio Glucose Lactate 2.2 H Calcium Magnesium Total Bilirubin AST ALT Alkaline Phosphatase Total Protein Albumin Globulin Albumin/Globulin Ratio Lipase Discharge Plan Discharge Plan Patient Disposition: Home Discharge comment: With copy of report and with escort Discharge Med Rec/Prescriptions Prescriptions: Continued ondansetron 4 mg tablet,disintegrating 4 mg PO Q6H PRN (Reason: Nausea) Qty: 30 RF: 3 furosemide 20 mg tablet 20 mg PO DAILY Qty: 30 RF: 2 oxycodone 5 mg tablet 5 - 10 mg PO Q4H PRN (Reason: pain) Qty: 360 RF: 0 cyclobenzaprine 5 mg tablet 5 mg PO TID PRN (Reason: Spasms) RF: 0 aspirin 81 mg tablet,delayed release (DR/EC) 81 mg PO DAILY RF: 0 polyethylene glycol 3350 [Miralax] 17 gram/dose powder 17 gram PO DAILY Qty: 510 RF: 0 metoclopramide HCl 10 mg tablet 10 mg PO ACHS RF: 0 metoprolol tartrate 50 mg tablet 37.5 mg PO BID RF: 0 lisinopril 20 mg tablet 20 mg PO DAILY RF: 0 omeprazole 40 mg capsule,delayed release(DR/EC) 40 mg PO BID RF: 0 simvastatin 40 mg tablet 40 mg PO DAILY RF: 0 tamsulosin 0.4 mg capsule 0.4 mg PO DAILY RF: 0 budesonide 3 mg capsule,delayed,extend.release 6 mg PO QAM RF: 0 Follow up/Referrals: Khang Vasques MD [Primary Care Provider] - 2 Weeks (before 09/05/19) Discharge Orders: Discharge (Order); Ordered 08/16/19 Ordered By: Khang Vasques Provider Discharge Instructions Diet: Diet as Tolerated and Full Liquid Diet comment: Progressing to normal diet Skin/Wound/Dressing Care Report to your healthcare provider any signs of infection, such as:: chills, fever, night sweats and increased pain Visit Report/Discharge Packet Stand Alone Forms: Colonoscopy Result: [facility] Discharge Data Primary Care Provider: Khang Vasques Attending Provider: Khang Vasques Quality VTE Deep Vein Thrombosis/Pulmonary Embolism Present on Admission: No
[2019-08-16] MEDS: ONDANSETRON 4 MG/2 ML INJ IV (08:32)
--- NOTE | 2019-08-16 11:32 | PC.NURSE ---
Pt is dressed and ready for discharge home with friend. Went over d/c instructions with Pt and Friend (Gemini) - gave a second copy of discharge to his escort. Discussed d/c meds, time of last dose, reviewed s/s of infection and when to call MD, diet, and follow up. Pt denies further questions and was taken out to POV via w/c by MEDICAL OFFICE PROFESSIONAL INSTRUCTOR with Friend and all belongings.
--- NOTE | 2019-08-16 13:30 | CM.DANOTE ---
DCP Assessment: EMR reviewed: Patient is a 64 yr old male who was admitted to [facility] following complications after an Colonoscopy. Patients PCP is Dr. Vasques. CM/RN met with patient at the bedside and explained CM role. Patient was alert and oriented x3 during CM visit and is mostly I with ADL's. Patient does have two care givers who come daily to help with automotive project engineer, groceries and laundry. Patient currently lives in a two story home but has no need to go to the second floor. Patient stated his pain is much better today 11/19 rather then the 05/22 it was earlier. I: 1st: [facility] medicare advantage 2nd: Self paY Plan: D/C home when medically stable. No identified D/C planning needs noted at this time. CM/RN will continue to follow patient to help with any D/C planning needs that may arise. Myra Bhatia RN.
== END 2019-08-16 11:34 | disposition home or self-care (01) ==
LOC: ENDO 16:21 → AC 19:14
PROVIDERS: Family Medicine; Student in an Organized Health Care Education/Training Program; Admitting Provider Internal Medicine; PCP Internal Medicine; Visit Provider Internal Medicine
PROC: 0DJD8ZZ Inspection of Lower Intestinal Tract, Via Natural or Artificial Opening Endoscopic (ICD-10-PCS; CPT 45378; 2019-08-15 14:30)
DX: K57.30 Diverticulosis of large intestine without perforation or abscess without bleeding (principal); R10.84 Generalized abdominal pain; R93.5 Abnormal findings on diagnostic imaging of other abdominal regions, including retroperitoneum; B18.2 Chronic viral hepatitis C; F12.90 Cannabis use, unspecified, uncomplicated; K21.9 Gastro-esophageal reflux disease without esophagitis; R11.2 Nausea with vomiting, unspecified; I10 Essential (primary) hypertension; I48.0 Paroxysmal atrial fibrillation; C61 Malignant neoplasm of prostate; E78.5 Hyperlipidemia, unspecified; I25.10 Atherosclerotic heart disease of native coronary artery without angina pectoris; E86.0 Dehydration; R63.4 Abnormal weight loss
CPT/HCPCS: 45380; 36415; 80053; 81001; 83605; 83690; 83735; 85025; 96361; 96374; 96375; 99217; 99219; 99283; 99284; G0378; C9113; J1170; J1650; J2405; J2704; J3010

== ENCOUNTER → 2019-10-04 10:35 | Outpatient (CLI) | payer OTHER, SELFPAY ==
[2019-08-15 19:17] VITALS: BMI 20.5
[2019-10-04 11:32] LABS: Add Manual Diff / Slide Review NO; Basophils Absolute Auto 100 /uL (0-100); Basophils Percent Auto 1.1 % (0-2); Eosinophils Absolute Auto 0 /uL (0-450); Eosinophils Percent Auto 0.5 % (2-4); Hematocrit 47.8 % (41-53); Hemoglobin 17.2 g/dL (13.5-17.5); Lymphocytes Absolute Auto 1000 /uL (1100-4500); Lymphocytes Percent Auto 13.4 % (25-40); Mean Corpuscular HGB Conc 35.9 % (30-36); Mean Corpuscular Hemoglobin 33.3 PG (26-34); Mean Corpuscular Volume 92.7 fL (80-100); Monocytes Absolute Auto 800 /uL (0-900); Monocytes Percent Auto 10.8 % (3-14); Neutrophils Absolute Auto 5500 /uL (1500-7000); Neutrophils Percent Auto 74.2 % (50-75); Platelet Count 128 X10^3/uL (150-400); Red Blood Cell Count 5.16 X10^6/uL (4.5-5.9); Red Cell Distribution Width 13.4 % (11.6-14.8); White Blood Cell Count 7.4 X10^3/uL (4.5-11.0)
[2019-10-04 11:44] LABS: Prothrombin Time 11.1 SECONDS (10.1-12.7)
[2019-10-04 11:50] LABS: Alanine Aminotransferase 288 IU/L (<50); Albumin 4.2 g/dL (3.5-5.0); Albumin Globulin Ratio 1.1 (1.0-2.8); Alkaline Phosphatase 135 U/L (38-126); Aspartate Aminotransferase 292 IU/L (17-59); BUN Creatinine Ratio 31.7 (6-22); Bilirubin Total 1.2 mg/dL (0.2-1.3); Blood Urea Nitrogen 19 mg/dL (9-20); Carbon Dioxide 26 mmol/L (22-32); Chloride 100 mmol/L (98-107); Estimated Glomerular Filt Rate > 60.0 mL/min (>60); Glucose 322 mg/dL (80-110); HEMOLYSIS 17 (0-50); Potassium 3.7 mmol/L (3.4-5.1); Sodium 135 mmol/L (137-145); Total Protein 8.2 g/dL (6.3-8.2)
[2019-10-06 13:58] LABS: Alpha Fetoprotein 32.4 ng/mL (< 6.1)
== END ==
PROVIDERS: PCP Internal Medicine; Visit Provider Student in an Organized Health Care Education/Training Program
DX: R79.89 Other specified abnormal findings of blood chemistry (principal); B18.2 Chronic viral hepatitis C
CPT/HCPCS: 36415; 80053; 82105; 85025; 85610

== ENCOUNTER 2019-11-06 11:12 | Emergency (ER) | payer OTHER, SELFPAY ==
[2019-08-15 19:17] VITALS: BMI 20.5
[2019-11-06] VITALS (11 sets, daily range): BP systolic 144–199; BP diastolic 86–118; PULSE 56–95; RESP 10–25; TEMP 37.2; O2SAT 97–99
[2019-11-06 11:53] LABS: Add Manual Diff / Slide Review NO; Basophils Absolute Auto 0 /uL (0-100); Basophils Percent Auto 0.3 % (0-2); Eosinophils Absolute Auto 0 /uL (0-450); Hematocrit 45.1 % (41-53); Hemoglobin 15.8 g/dL (13.5-17.5); Lymphocytes Absolute Auto 1100 /uL (1100-4500); Lymphocytes Percent Auto 13.6 % (25-40); Mean Corpuscular HGB Conc 35.1 % (30-36); Mean Corpuscular Hemoglobin 33.4 PG (26-34); Mean Corpuscular Volume 95.2 fL (80-100); Monocytes Absolute Auto 1000 /uL (0-900); Monocytes Percent Auto 13.3 % (3-14); Neutrophils Absolute Auto 5700 /uL (1500-7000); Neutrophils Percent Auto 72.8 % (50-75); Platelet Count 134 X10^3/uL (150-400); Red Blood Cell Count 4.73 X10^6/uL (4.5-5.9); Red Cell Distribution Width 13.5 % (11.6-14.8); White Blood Cell Count 7.8 X10^3/uL (4.5-11.0)
[2019-11-06] MEDS: MORPHINE 4 MG/ML INJ IV (11:55)
[2019-11-06] MEDS: SODIUM CHLORIDE 0.9% 1,000 ML 1000 ML IV (11:55)
[2019-11-06] MEDS: ONDANSETRON 4 MG/2 ML INJ IV (11:55)
[2019-11-06 11:59] LABS: Prothrombin Time 11.5 SECONDS (10.1-12.7)
--- NOTE | 2019-11-06 12:00 | ED.ABDPAIN ---
HPI - Abdominal Pain <Ashley Meeks, [employer]-BC - Last Filed: 11/06/19 18:46> General Chief Complaint: Abdominal Pain Stated Complaint: Weakness / Vomiting Time Seen by Provider: 11/06/19 11:38 Source: EMS Mode of arrival: EMS Limitations: no limitations History of Present Illness HPI narrative: The patient is a 64-year-old male nonsmoker with history of diverticulitis, upper GI bleed, colitis who presents with a chief complaint of nausea vomiting and feeling very ill for the past 3 days. He states he started cooking dinner 3 days ago and suddenly felt terrible. He states he was been vomiting at home and, too weak to get out of bed. He states he hired caregiver for the past few days to help him at home he has been feeling so sick. However today he just cannot keep going and came to the emergency department by ambulance. He states that he had an episode of AFib this morning, but that he goes in and out of AFib and that is normal for him. He states ?his heart hurts.He states that he has only been dry heaving for the past 24 hours, that he has been able to keep down a few ice chips but nothing else. He states yesterday he was able to have some Jell-O. He denies any constipation or diarrhea. He denies any fevers but complains of muscle aches, chills and general malaise. He denies any dysuria urgency or frequency. Related Data Home Medications Medication Instructions Recorded Confirmed cyclobenzaprine 5 mg tablet 5 mg PO TID PRN tab 03/20/19 11/06/19 metoclopramide HCl 10 mg tablet 10 mg PO ACHS 07/06/19 11/06/19 budesonide 6 mg PO QAM 08/15/19 11/06/19 simvastatin 40 mg PO QPM 08/15/19 11/06/19 tamsulosin 0.4 mg PO QPM 08/15/19 11/06/19 aspirin 81 mg PO DAILY 11/06/19 11/06/19 lisinopril 10 mg PO DAILY 11/06/19 11/06/19 morphine concentrate 20 - 60 mg PO PRN PRN 11/06/19 11/06/19 Previous Rx's Medication Instructions Recorded polyethylene glycol 3350 [Miralax] 17 gram PO DAILY #510 gram 06/07/19 ondansetron 4 mg disintegrating 4 mg PO Q6H PRN #30 tab 06/19/19 tablet omeprazole 40 mg capsule,delayed 40 mg PO BID #180 cap 08/23/19 release metoprolol tartrate 50 mg tablet 37.5 mg PO BID #60 tab 09/06/19 oxycodone 5 mg tablet 5 - 10 mg PO Q4H PRN #360 tab 10/24/19 omeprazole 20 mg PO DAILY #30 cap 11/06/19 sucralfate [Carafate] 1 gram PO QACHS #40 tab 11/06/19 Allergies Allergy/AdvReac Type Severity Reaction Status Date / Time No Known Drug Allergies Allergy Verified 11/07/19 09:27 Review of Systems <[facility] - Last Filed: 11/06/19 18:46> Review of Systems Narrative: GENERAL: See HPI HEENT: Denies sinus pain, ear pain, sore throat, difficulty swallowing, dizziness. RESPIRATORY: Denies dyspnea, cough, wheezing, hemoptysis, sputum. CARDIOVASCULAR: See HPI GASTROINTESTINAL: See HPI : Denies dysuria, frequency, incontinence, hematuria, urinary retention. MUSCULOSKELETAL: denies weakness, joint pain, or bony pain SKIN: Denies rash, skin lesions, or other NEUROLOGIC: Denies weakness, headache, numbness, change in speech, confusion, seizures, incoordination. PSYCHIATRIC: No concerning psychosocial issues. 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 Normocephalic. No temporal or scalp tenderness. EYES: Pupils equal round and reactive. Extraocular motions intact. No scleral icterus. No injection or drainage. ENT: Nose without bleeding, purulent drainage or septal hematoma. Throat without erythema, tonsillar hypertrophy or exudate. Uvula midline. Airway patent. NECK: Trachea midline. No JVD or lymphadenopathy. Supple, nontender, no meningeal signs. CARDIOVASCULAR: Regular rate and rhythm RESPIRATORY: Clear to auscultation. Breath sounds equal bilaterally. No wheezes, rales, or rhonchi. No cough. No increased respiratory effort. No accessory muscle use. GASTROINTESTINAL: Active bowel sounds all 4 quadrants. Soft, diffuse tenderness to palpation. Tenderness to palpation left lower quadrant with slight guarding. EXTREMITIES: No clubbing, cyanosis, or edema. No joint tenderness, effusion, or edema noted. BACK: Nontender without deformity or crepitance. No flank tenderness. NEURO: AOx3. SKIN: Dry skin. Dry mucous membranes. No rash noted on visible skin. Initial Vital Signs Initial Vital Signs: Vital Signs Temperature 98.9 F 11/06/19 11:20 Pulse Rate 64 11/06/19 11:20 Respiratory Rate 16 11/06/19 11:20 Blood Pressure 196/110 H 11/06/19 11:20 Pulse Oximetry 99 11/06/19 11:20 <Ashley Carrasco DO - Last Filed: 11/07/19 19:17> Initial Vital Signs Initial Vital Signs: Vital Signs Temperature 98.9 F 11/06/19 11:20 Pulse Rate 64 11/06/19 11:20 Respiratory Rate 16 11/06/19 11:20 Blood Pressure 196/110 H 11/06/19 11:20 Pulse Oximetry 99 11/06/19 11:20 Course <FELY Aguayo - Last Filed: 11/06/19 18:46> Orders Ordered: Discontinued Medications Al Hydrox/Mg Hydrox/Simethicone 20 ml/ Lidocaine HCl 15 ml 0 ml PO NOW ONE Stop: 11/06/19 13:34 Last Admin: 11/06/19 13:56 Dose: 20 ml Documented by: ALF Hydromorphone HCl (Dilaudid) 1 mg IV NOW ONE Stop: 11/06/19 17:26 Last Admin: 11/06/19 17:34 Dose: 1 mg Documented by: FERNANDO Sodium Chloride (Normal Saline 0.9%) 1,000 mls @ 1,000 mls/hr IV BOLUS ONE Stop: 11/06/19 12:49 Last Infusion: 11/06/19 13:02 Dose: 0 mls/hr Documented by: Admin: 11/06/19 11:55 Dose: 1,000 mls/hr Documented by: FERNANDO Ketorolac Tromethamine (Toradol) 30 mg IV NOW ONE Stop: 11/06/19 15:02 Last Admin: 11/06/19 15:16 Dose: 30 mg Documented by: ALF Morphine Sulfate (Morphine) 4 mg IV NOW ONE Stop: 11/06/19 11:51 Last Admin: 11/06/19 11:55 Dose: 4 mg Documented by: FERNANDO Ondansetron HCl (Zofran) 4 mg IV NOW ONE Stop: 11/06/19 11:51 Last Admin: 11/06/19 11:55 Dose: 4 mg Documented by: FERNANDO Pantoprazole Sodium (Protonix) 40 mg IV NOW ONE Stop: 11/06/19 13:34 Last Admin: 11/06/19 13:56 Dose: 40 mg Documented by: ALF Sucralfate (Carafate) 1 gm PO NOW ONE Stop: 11/06/19 16:04 Last Admin: 11/06/19 16:41 Dose: 1 gm Documented by: ALF Vital Signs Vital signs: Vital Signs - 8 hr 11/06/19 11:20 11/06/19 12:00 11/06/19 13:00 Temperature 98.9 F Pulse Rate 64 59 L 56 L Respiratory Rate 16 22 18 Blood Pressure 196/110 H Blood Pressure [Right Arm] 196/110 H 191/118 H Pulse Oximetry 99 98 98 11/06/19 13:47 11/06/19 14:00 11/06/19 14:55 Temperature Pulse Rate 59 L 60 67 Respiratory Rate 25 H 19 10 L Blood Pressure Blood Pressure [Right Arm] 199/110 H 199/110 H 194/109 H Pulse Oximetry 99 98 98 11/06/19 15:00 11/06/19 16:00 11/06/19 17:00 Temperature Pulse Rate 63 66 61 Respiratory Rate 20 19 17 Blood Pressure Blood Pressure [Right Arm] 194/109 H 179/99 H 169/86 H Pulse Oximetry 98 99 98 11/06/19 17:01 11/06/19 18:17 Temperature Pulse Rate 63 95 H Respiratory Rate 11 L 16 Blood Pressure Blood Pressure [Right Arm] 144/93 H Pulse Oximetry 98 98 <Ashley Carrasco DO - Last Filed: 11/07/19 19:17> Orders Ordered: Discontinued Medications Al Hydrox/Mg Hydrox/Simethicone 20 ml/ Lidocaine HCl 15 ml 0 ml PO NOW ONE Stop: 11/06/19 13:34 Last Admin: 11/06/19 13:56 Dose: 20 ml Documented by: ALF Hydromorphone HCl (Dilaudid) 1 mg IV NOW ONE Stop: 11/06/19 17:26 Last Admin: 11/06/19 17:34 Dose: 1 mg Documented by: FERNANDO Sodium Chloride (Normal Saline 0.9%) 1,000 mls @ 1,000 mls/hr IV BOLUS ONE Stop: 11/06/19 12:49 Last Infusion: 11/06/19 13:02 Dose: 0 mls/hr Documented by: Admin: 11/06/19 11:55 Dose: 1,000 mls/hr Documented by: FERNANDO Ketorolac Tromethamine (Toradol) 30 mg IV NOW ONE Stop: 11/06/19 15:02 Last Admin: 11/06/19 15:16 Dose: 30 mg Documented by: ALF Morphine Sulfate (Morphine) 4 mg IV NOW ONE Stop: 11/06/19 11:51 Last Admin: 11/06/19 11:55 Dose: 4 mg Documented by: FERNANDO Ondansetron HCl (Zofran) 4 mg IV NOW ONE Stop: 11/06/19 11:51 Last Admin: 11/06/19 11:55 Dose: 4 mg Documented by: FERNANDO Pantoprazole Sodium (Protonix) 40 mg IV NOW ONE Stop: 11/06/19 13:34 Last Admin: 11/06/19 13:56 Dose: 40 mg Documented by: ALF Sucralfate (Carafate) 1 gm PO NOW ONE Stop: 11/06/19 16:04 Last Admin: 11/06/19 16:41 Dose: 1 gm Documented by: ALF Vital Signs Vital signs: Vital Signs - 8 hr 11/06/19 11:20 11/06/19 12:00 11/06/19 13:00 Temperature 98.9 F Pulse Rate 64 59 L 56 L Respiratory Rate 16 22 18 Blood Pressure 196/110 H Blood Pressure [Right Arm] 196/110 H 191/118 H Pulse Oximetry 99 98 98 11/06/19 13:47 11/06/19 14:00 11/06/19 14:55 Temperature Pulse Rate 59 L 60 67 Respiratory Rate 25 H 19 10 L Blood Pressure Blood Pressure [Right Arm] 199/110 H 199/110 H 194/109 H Pulse Oximetry 99 98 98 11/06/19 15:00 11/06/19 16:00 11/06/19 17:00 Temperature Pulse Rate 63 66 61 Respiratory Rate 20 19 17 Blood Pressure Blood Pressure [Right Arm] 194/109 H 179/99 H 169/86 H Pulse Oximetry 98 99 98 11/06/19 17:01 11/06/19 18:17 Temperature Pulse Rate 63 95 H Respiratory Rate 11 L 16 Blood Pressure Blood Pressure [Right Arm] 144/93 H Pulse Oximetry 98 98 MDM - Abdominal Pain <MARITZA Aguayo-FERCHO - Last Filed: 11/06/19 18:46> Lab Data Result diagrams: 11/06/19 11:39 11/06/19 11:39 Labs: Lab Results 11/06/19 11/06/19 11/06/19 Range/Units 11:39 11:39 11:39 WBC 7.8 (4.5-11.0) X10^3/uL RBC 4.73 (4.5-5.9) X10^6/uL Hgb 15.8 (13.5-17.5) g/dL Hct 45.1 (41-53) % MCV 95.2 (80-100) fL MCH 33.4 (26-34) PG MCHC 35.1 (30-36) % RDW 13.5 (11.6-14.8) % Plt Count 134 L (150-400) X10^3/uL Neut % (Auto) 72.8 (50-75) % Lymph % (Auto) 13.6 L (25-40) % [place] % (Auto) 13.3 (3-14) % Eos % (Auto) 0.0 L (2-4) % Baso % (Auto) 0.3 (0-2) % Neut # (Auto) 5700 (9457-9136) /uL Lymph # (Auto) 1100 (4325-2441) /uL [place] # (Auto) 1000 H (0-900) /uL Eos # (Auto) 0 (0-450) /uL Baso # (Auto) 0 (0-100) /uL PT 11.5 (10.1-12.7) SECONDS INR 1.0 (0.9-1.3) APTT 24 L (26.4-36.2) SECONDS Sodium 134 L (137-145) mmol/L Potassium 3.2 L (3.4-5.1) mmol/L Chloride 99 (98-107) mmol/L Carbon Dioxide 25 (22-32) mmol/L BUN 21 H (9-20) mg/dL Creatinine 0.50 L (0.66-1.25) mg/dL Estimated GFR > 60.0 (>60) mL/min BUN/Creatinine Ratio 42.0 H (6-22) Glucose 393 H (80-110) mg/dL Lactate (0.7-2.1) mmol/L Calcium 8.9 (8.4-10.2) mg/dL Total Bilirubin 1.8 H (0.2-1.3) mg/dL AST 227 H (17-59) IU/L ALT 260 H (<50) IU/L Alkaline Phosphatase 97 (38-126) U/L Total Creatine Kinase (55-170) U/L CK-MB (CK-2) CK-MB (CK-2) Rel Index Troponin I (0.01-0.034) ng/mL NT-Pro-B Natriuret Pep (<125) pg/mL Total Protein 6.8 (6.3-8.2) g/dL Albumin 3.5 (3.5-5.0) g/dL Globulin 3.3 (1.7-4.1) g/dL Albumin/Globulin Ratio 1.1 (1.0-2.8) Amylase (30-110) U/L Lipase 38 (23-300) U/L Influenza A (RT-PCR) (NEGATIVE) Influenza B (RT-PCR) (NEGATIVE) 11/06/19 11/06/19 11/06/19 Range/Units 11:39 11:39 11:39 WBC (4.5-11.0) X10^3/uL RBC (4.5-5.9) X10^6/uL Hgb (13.5-17.5) g/dL Hct (41-53) % MCV (80-100) fL MCH (26-34) PG MCHC (30-36) % RDW (11.6-14.8) % Plt Count (150-400) X10^3/uL Neut % (Auto) (50-75) % Lymph % (Auto) (25-40) % [place] % (Auto) (3-14) % Eos % (Auto) (2-4) % Baso % (Auto) (0-2) % Neut # (Auto) (7392-2821) /uL Lymph # (Auto) (5646-1480) /uL [place] # (Auto) (0-900) /uL Eos # (Auto) (0-450) /uL Baso # (Auto) (0-100) /uL PT (10.1-12.7) SECONDS INR (0.9-1.3) APTT (26.4-36.2) SECONDS Sodium (137-145) mmol/L Potassium (3.4-5.1) mmol/L Chloride (98-107) mmol/L Carbon Dioxide (22-32) mmol/L BUN (9-20) mg/dL Creatinine (0.66-1.25) mg/dL Estimated GFR (>60) mL/min BUN/Creatinine Ratio (6-22) Glucose (80-110) mg/dL Lactate 2.2 H (0.7-2.1) mmol/L Calcium (8.4-10.2) mg/dL Total Bilirubin (0.2-1.3) mg/dL AST (17-59) IU/L ALT (<50) IU/L Alkaline Phosphatase (38-126) U/L Total Creatine Kinase 34 L (55-170) U/L CK-MB (CK-2) TNP CK-MB (CK-2) Rel Index TNP Troponin I 0.018 (0.01-0.034) ng/mL NT-Pro-B Natriuret Pep (<125) pg/mL Total Protein (6.3-8.2) g/dL Albumin (3.5-5.0) g/dL Globulin (1.7-4.1) g/dL Albumin/Globulin Ratio (1.0-2.8) Amylase 70 (30-110) U/L Lipase (23-300) U/L Influenza A (RT-PCR) (NEGATIVE) Influenza B (RT-PCR) (NEGATIVE) 11/06/19 11/06/19 11/06/19 Range/Units 11:39 14:00 14:06 WBC (4.5-11.0) X10^3/uL RBC (4.5-5.9) X10^6/uL Hgb (13.5-17.5) g/dL Hct (41-53) % MCV (80-100) fL MCH (26-34) PG MCHC (30-36) % RDW (11.6-14.8) % Plt Count (150-400) X10^3/uL Neut % (Auto) (50-75) % Lymph % (Auto) (25-40) % [place] % (Auto) (3-14) % Eos % (Auto) (2-4) % Baso % (Auto) (0-2) % Neut # (Auto) (1939-8504) /uL Lymph # (Auto) (8780-0901) /uL [place] # (Auto) (0-900) /uL Eos # (Auto) (0-450) /uL Baso # (Auto) (0-100) /uL PT (10.1-12.7) SECONDS INR (0.9-1.3) APTT (26.4-36.2) SECONDS Sodium (137-145) mmol/L Potassium (3.4-5.1) mmol/L Chloride (98-107) mmol/L Carbon Dioxide (22-32) mmol/L BUN (9-20) mg/dL Creatinine (0.66-1.25) mg/dL Estimated GFR (>60) mL/min BUN/Creatinine Ratio (6-22) Glucose (80-110) mg/dL Lactate 1.5 (0.7-2.1) mmol/L Calcium (8.4-10.2) mg/dL Total Bilirubin (0.2-1.3) mg/dL AST (17-59) IU/L ALT (<50) IU/L Alkaline Phosphatase (38-126) U/L Total Creatine Kinase (55-170) U/L CK-MB (CK-2) CK-MB (CK-2) Rel Index Troponin I (0.01-0.034) ng/mL NT-Pro-B Natriuret Pep 711 H (<125) pg/mL Total Protein (6.3-8.2) g/dL Albumin (3.5-5.0) g/dL Globulin (1.7-4.1) g/dL Albumin/Globulin Ratio (1.0-2.8) Amylase (30-110) U/L Lipase (23-300) U/L Influenza A (RT-PCR) Flu a negative (NEGATIVE) Influenza B (RT-PCR) Flu b negative (NEGATIVE) 11/06/19 Range/Units 14:06 WBC (4.5-11.0) X10^3/uL RBC (4.5-5.9) X10^6/uL Hgb (13.5-17.5) g/dL Hct (41-53) % MCV (80-100) fL MCH (26-34) PG MCHC (30-36) % RDW (11.6-14.8) % Plt Count (150-400) X10^3/uL Neut % (Auto) (50-75) % Lymph % (Auto) (25-40) % [place] % (Auto) (3-14) % Eos % (Auto) (2-4) % Baso % (Auto) (0-2) % Neut # (Auto) (3130-9610) /uL Lymph # (Auto) (1947-2194) /uL [place] # (Auto) (0-900) /uL Eos # (Auto) (0-450) /uL Baso # (Auto) (0-100) /uL PT (10.1-12.7) SECONDS INR (0.9-1.3) APTT (26.4-36.2) SECONDS Sodium (137-145) mmol/L Potassium (3.4-5.1) mmol/L Chloride (98-107) mmol/L Carbon Dioxide (22-32) mmol/L BUN (9-20) mg/dL Creatinine (0.66-1.25) mg/dL Estimated GFR (>60) mL/min BUN/Creatinine Ratio (6-22) Glucose (80-110) mg/dL Lactate (0.7-2.1) mmol/L Calcium (8.4-10.2) mg/dL Total Bilirubin (0.2-1.3) mg/dL AST (17-59) IU/L ALT (<50) IU/L Alkaline Phosphatase (38-126) U/L Total Creatine Kinase 40 L (55-170) U/L CK-MB (CK-2) TNP CK-MB (CK-2) Rel Index TNP Troponin I 0.023 (0.01-0.034) ng/mL NT-Pro-B Natriuret Pep (<125) pg/mL Total Protein (6.3-8.2) g/dL Albumin (3.5-5.0) g/dL Globulin (1.7-4.1) g/dL Albumin/Globulin Ratio (1.0-2.8) Amylase (30-110) U/L Lipase (23-300) U/L Influenza A (RT-PCR) (NEGATIVE) Influenza B (RT-PCR) (NEGATIVE) Point of care testing: Urine Dip Bedside Urine Glucose 1000 mg/dl Bedside Urine Bilirubin - Negative Bedside Urine Ketone + 15 Urine Specific [place] 1.020 Bedside Urine Occult Blood - Negative Bedside Urine pH 6.0 Bedside Urine Protein + 30 Bedside Urine Urobilinogen 2+ 4mg Bedside Urine Nitrite - Negative Bedside Urine Leukocytes - Negative Esterase Imaging Data Chest x-ray: Radiologist's Impression: [address] [place] [id number] XRay Report Signed Patient: Brennan Marmolejo CMR#: [id number] : 6Acct:[id number] Age/Sex: 64 / MDate of Service: 11/06/19 Loc: ED Accession Number: [id number] Procedure: XR chest 1V Ordering Provider: Ashley Meeks-FERCHO PROCEDURE: XR CHEST 1V INDICATIONS: chest pain TECHNIQUE: One view of the chest was acquired. COMPARISON: [facility], CR, XR CHEST 1V, 06/18/2019, 10:27. FINDINGS: Surgical changes and devices: None. Lungs and pleura: Lungs are clear. No pleural effusions or pneumothorax. There may be a calcified granuloma the right lung base versus a calcified pleural plaque at the level of the diaphragm. Mediastinum: Mediastinal contours appear normal. Heart size is normal. Bones and chest wall: No suspicious bony lesions. Overlying soft tissues appear unremarkable. IMPRESSION: Stable chest. No acute cardiopulmonary process is evident. Dictated by: Raghavendra Marcos M.D. on 11/06/2019 at 14:14 Approved by: Raghavendra Marcos M.D. on 11/06/2019 at 14:17 CT scan - abdomen/pelvis: Radiologist's Impression: [address] [place] [address] CT Scan Report Signed Patient: Brennan Marmolejo CMR#: [id number] : 6Acct:[id number] Age/Sex: 64 / MDate of Service: 11/06/19 Loc: ED Accession Number: [id number] Procedure: CT abdomen pelvis w con Ordering Provider: Ashley Meeks-FERCHO PROCEDURE: CT ABDOMEN PELVIS W CON INDICATIONS: llq pain TECHNIQUE: After the administration of intravenous contrast, 5 mm thick sections acquired from the diaphragm to the symphysis. 5 mm coronal and sagittal reformats were acquired. For radiation dose reduction, the following was used: automated exposure control, adjustment of mA and/or kV according to patient size. COMPARISON: [facility], CT, CT ABDOMEN PELVIS W CON, 04/22/2019, 20:45. [facility], CT, CT ABDOMEN PELVIS W CON, 06/01/2019, 15:06. [facility], CT, CT ABDOMEN PELVIS W CON, 05/20/2019, 16:06. FINDINGS: Image quality: Excellent. ABDOMEN: Lung bases: Lung bases are clear. Heart size is normal. Solid organs: Liver is normal in size and enhancement but does demonstrate a moderately heterogeneous pattern of fatty infiltration and slight nodularity of the hepatic capsular border worrisome for representing early cirrhosis, without identifiable mass lesion or varices. Gallbladder appears normal. Biliary system is non dilated. Pancreas enhances normally. Spleen is normal in size and enhancement. No adrenal nodules. Kidneys demonstrate normal size and enhancement, without hydronephrosis. Peritoneum and bowel: Bowel loops demonstrate normal wall thickness and caliber. No free fluid or air. Nodes and vessels: No retroperitoneal or mesenteric adenopathy by size criteria. Aorta and inferior vena cava are normal in size. Miscellaneous: No ventral hernias. PELVIS: Genitourinary: Bladder wall thickness is normal. Note is made of an eccentric slightly enhancing nodule again noted at the right lateral aspect of the prostate parenchyma. Miscellaneous: No inguinal hernias or adenopathy. Bones: No suspicious bony lesions. No vertebral body compression fractures. IMPRESSION: No acute disease. Note is made of a pattern of heterogeneous geographic fatty infiltration within the liver parenchyma, without focal mass. The Note also is made of a chronic focus of subtle increased enhancement of the prostate parenchyma, at and to the right of midline with a nodular pattern. This presumably has been biopsied but please correlate clinically if not given its identification on several prior CT scans and the potential that this could represent prostate malignancy. Dictated by: Laurent Trinidad M.D. on 11/06/2019 at 12:57 Approved by: Laurent Trinidad M.D. on 11/06/2019 at 13:03 ECG Data Attestation: I personally reviewed and interpreted this ECG as follows: Interpretation: Ventricular rate 55. P.r. 148. QRS 76. viewed by Dr Danilo PICHARDO Narrative Medical decision making narrative: The patient is a 64-year-old male with history of chronic abdominal pain who presents for left lower quadrant pain as well as a possible episode of AFib this morning. He states that he goes in and out of AFib and that is usual for him. Labs are unremarkable, no leukocytosis, and CT is also unremarkable. Initial troponin was negative, repeat troponin was also negative. Patient was able to ambulate with standby assist with walker. He states he has walkers and will tears at home. States he felt ready to go home. Did feel better with omeprazole and Carafate, so I did for sudden prescriptions. Discussed at length the importance of following up with primary care provider as well as come back to the emergency department for any acute concerns. Patient has no questions or concerns upon discharge and was discharged home with family. <Ashley Carrasco, DO - Last Filed: 11/07/19 19:17> Lab Data Attestation: I reviewed the patient's lab results. Labs: Lab Results 11/06/19 11/06/19 11/06/19 Range/Units 11:39 11:39 11:39 WBC 7.8 (4.5-11.0) X10^3/uL RBC 4.73 (4.5-5.9) X10^6/uL Hgb 15.8 (13.5-17.5) g/dL Hct 45.1 (41-53) % MCV 95.2 (80-100) fL MCH 33.4 (26-34) PG MCHC 35.1 (30-36) % RDW 13.5 (11.6-14.8) % Plt Count 134 L (150-400) X10^3/uL Neut % (Auto) 72.8 (50-75) % Lymph % (Auto) 13.6 L (25-40) % [place] % (Auto) 13.3 (3-14) % Eos % (Auto) 0.0 L (2-4) % Baso % (Auto) 0.3 (0-2) % Neut # (Auto) 5700 (2524-9883) /uL Lymph # (Auto) 1100 (2995-4080) /uL [place] # (Auto) 1000 H (0-900) /uL Eos # (Auto) 0 (0-450) /uL Baso # (Auto) 0 (0-100) /uL PT 11.5 (10.1-12.7) SECONDS INR 1.0 (0.9-1.3) APTT 24 L (26.4-36.2) SECONDS Sodium 134 L (137-145) mmol/L Potassium 3.2 L (3.4-5.1) mmol/L Chloride 99 (98-107) mmol/L Carbon Dioxide 25 (22-32) mmol/L BUN 21 H (9-20) mg/dL Creatinine 0.50 L (0.66-1.25) mg/dL Estimated GFR > 60.0 (>60) mL/min BUN/Creatinine Ratio 42.0 H (6-22) Glucose 393 H (80-110) mg/dL Lactate (0.7-2.1) mmol/L Calcium 8.9 (8.4-10.2) mg/dL Total Bilirubin 1.8 H (0.2-1.3) mg/dL AST 227 H (17-59) IU/L ALT 260 H (<50) IU/L Alkaline Phosphatase 97 (38-126) U/L Total Creatine Kinase (55-170) U/L CK-MB (CK-2) CK-MB (CK-2) Rel Index Troponin I (0.01-0.034) ng/mL NT-Pro-B Natriuret Pep (<125) pg/mL Total Protein 6.8 (6.3-8.2) g/dL Albumin 3.5 (3.5-5.0) g/dL Globulin 3.3 (1.7-4.1) g/dL Albumin/Globulin Ratio 1.1 (1.0-2.8) Amylase (30-110) U/L Lipase 38 (23-300) U/L Influenza A (RT-PCR) (NEGATIVE) Influenza B (RT-PCR) (NEGATIVE) 11/06/19 11/06/19 11/06/19 Range/Units 11:39 11:39 11:39 WBC (4.5-11.0) X10^3/uL RBC (4.5-5.9) X10^6/uL Hgb (13.5-17.5) g/dL Hct (41-53) % MCV (80-100) fL MCH (26-34) PG MCHC (30-36) % RDW (11.6-14.8) % Plt Count (150-400) X10^3/uL Neut % (Auto) (50-75) % Lymph % (Auto) (25-40) % [place] % (Auto) (3-14) % Eos % (Auto) (2-4) % Baso % (Auto) (0-2) % Neut # (Auto) (9173-7214) /uL Lymph # (Auto) (3031-2930) /uL [place] # (Auto) (0-900) /uL Eos # (Auto) (0-450) /uL Baso # (Auto) (0-100) /uL PT (10.1-12.7) SECONDS INR (0.9-1.3) APTT (26.4-36.2) SECONDS Sodium (137-145) mmol/L Potassium (3.4-5.1) mmol/L Chloride (98-107) mmol/L Carbon Dioxide (22-32) mmol/L BUN (9-20) mg/dL Creatinine (0.66-1.25) mg/dL Estimated GFR (>60) mL/min BUN/Creatinine Ratio (6-22) Glucose (80-110) mg/dL Lactate 2.2 H (0.7-2.1) mmol/L Calcium (8.4-10.2) mg/dL Total Bilirubin (0.2-1.3) mg/dL AST (17-59) IU/L ALT (<50) IU/L Alkaline Phosphatase (38-126) U/L Total Creatine Kinase 34 L (55-170) U/L CK-MB (CK-2) TNP CK-MB (CK-2) Rel Index TNP Troponin I 0.018 (0.01-0.034) ng/mL NT-Pro-B Natriuret Pep (<125) pg/mL Total Protein (6.3-8.2) g/dL Albumin (3.5-5.0) g/dL Globulin (1.7-4.1) g/dL Albumin/Globulin Ratio (1.0-2.8) Amylase 70 (30-110) U/L Lipase (23-300) U/L Influenza A (RT-PCR) (NEGATIVE) Influenza B (RT-PCR) (NEGATIVE) 11/06/19 11/06/19 11/06/19 Range/Units 11:39 14:00 14:06 WBC (4.5-11.0) X10^3/uL RBC (4.5-5.9) X10^6/uL Hgb (13.5-17.5) g/dL Hct (41-53) % MCV (80-100) fL MCH (26-34) PG MCHC (30-36) % RDW (11.6-14.8) % Plt Count (150-400) X10^3/uL Neut % (Auto) (50-75) % Lymph % (Auto) (25-40) % [place] % (Auto) (3-14) % Eos % (Auto) (2-4) % Baso % (Auto) (0-2) % Neut # (Auto) (3254-4804) /uL Lymph # (Auto) (5807-6908) /uL [place] # (Auto) (0-900) /uL Eos # (Auto) (0-450) /uL Baso # (Auto) (0-100) /uL PT (10.1-12.7) SECONDS INR (0.9-1.3) APTT (26.4-36.2) SECONDS Sodium (137-145) mmol/L Potassium (3.4-5.1) mmol/L Chloride (98-107) mmol/L Carbon Dioxide (22-32) mmol/L BUN (9-20) mg/dL Creatinine (0.66-1.25) mg/dL Estimated GFR (>60) mL/min BUN/Creatinine Ratio (6-22) Glucose (80-110) mg/dL Lactate 1.5 (0.7-2.1) mmol/L Calcium (8.4-10.2) mg/dL Total Bilirubin (0.2-1.3) mg/dL AST (17-59) IU/L ALT (<50) IU/L Alkaline Phosphatase (38-126) U/L Total Creatine Kinase (55-170) U/L CK-MB (CK-2) CK-MB (CK-2) Rel Index Troponin I (0.01-0.034) ng/mL NT-Pro-B Natriuret Pep 711 H (<125) pg/mL Total Protein (6.3-8.2) g/dL Albumin (3.5-5.0) g/dL Globulin (1.7-4.1) g/dL Albumin/Globulin Ratio (1.0-2.8) Amylase (30-110) U/L Lipase (23-300) U/L Influenza A (RT-PCR) Flu a negative (NEGATIVE) Influenza B (RT-PCR) Flu b negative (NEGATIVE) 11/06/19 Range/Units 14:06 WBC (4.5-11.0) X10^3/uL RBC (4.5-5.9) X10^6/uL Hgb (13.5-17.5) g/dL Hct (41-53) % MCV (80-100) fL MCH (26-34) PG MCHC (30-36) % RDW (11.6-14.8) % Plt Count (150-400) X10^3/uL Neut % (Auto) (50-75) % Lymph % (Auto) (25-40) % [place] % (Auto) (3-14) % Eos % (Auto) (2-4) % Baso % (Auto) (0-2) % Neut # (Auto) (3448-1909) /uL Lymph # (Auto) (3990-9399) /uL [place] # (Auto) (0-900) /uL Eos # (Auto) (0-450) /uL Baso # (Auto) (0-100) /uL PT (10.1-12.7) SECONDS INR (0.9-1.3) APTT (26.4-36.2) SECONDS Sodium (137-145) mmol/L Potassium (3.4-5.1) mmol/L Chloride (98-107) mmol/L Carbon Dioxide (22-32) mmol/L BUN (9-20) mg/dL Creatinine (0.66-1.25) mg/dL Estimated GFR (>60) mL/min BUN/Creatinine Ratio (6-22) Glucose (80-110) mg/dL Lactate (0.7-2.1) mmol/L Calcium (8.4-10.2) mg/dL Total Bilirubin (0.2-1.3) mg/dL AST (17-59) IU/L ALT (<50) IU/L Alkaline Phosphatase (38-126) U/L Total Creatine Kinase 40 L (55-170) U/L CK-MB (CK-2) TNP CK-MB (CK-2) Rel Index TNP Troponin I 0.023 (0.01-0.034) ng/mL NT-Pro-B Natriuret Pep (<125) pg/mL Total Protein (6.3-8.2) g/dL Albumin (3.5-5.0) g/dL Globulin (1.7-4.1) g/dL Albumin/Globulin Ratio (1.0-2.8) Amylase (30-110) U/L Lipase (23-300) U/L Influenza A (RT-PCR) (NEGATIVE) Influenza B (RT-PCR) (NEGATIVE) Point of care testing: Urine Dip Bedside Urine Glucose 1000 mg/dl Bedside Urine Bilirubin - Negative Bedside Urine Ketone + 15 Urine Specific [place] 1.020 Bedside Urine Occult Blood - Negative Bedside Urine pH 6.0 Bedside Urine Protein + 30 Bedside Urine Urobilinogen 2+ 4mg Bedside Urine Nitrite - Negative Bedside Urine Leukocytes - Negative Esterase MDM Narrative Medical decision making narrative: Case discussed, EKG, labs and imaging reviewed. Patient is having some acute on chronic abdominal pain and DC to home. Patient was hypertensive department but improved while here. Discharge Plan Departure Patient Disposition: Home Clinical Impression: Abdominal pain Qualifiers: Abdominal location: generalized Qualified Code(s): R10.84 - Generalized abdominal pain Discharge Date/Time: 11/06/19 18:30 Instructions: DI for Abdominal Pain-Adult Activity Restrictions/Additional Instructions: Please follow-up with primary care provider the next few days. I sent prescriptions of omeprazole and Carafate to [facility] in [place] As discussed, your lab work and imaging came back with no acute findings. Please come back to the emergency department for any acute concerns such as concern of heart attack or stroke Prescriptions: New omeprazole 20 mg capsule,delayed release(DR/EC) 20 mg PO DAILY Qty: 30 RF: 0 sucralfate [Carafate] 1 gram tablet 1 gram PO QACHS Qty: 40 RF: 0 No Action ondansetron 4 mg tablet,disintegrating 4 mg PO Q6H PRN (Reason: Nausea) Qty: 30 RF: 3 omeprazole 40 mg capsule,delayed release(DR/EC) 40 mg PO BID Qty: 180 RF: 1 metoprolol tartrate 50 mg tablet 37.5 mg PO BID Qty: 60 RF: 0 oxycodone 5 mg tablet 5 - 10 mg PO Q4H PRN (Reason: pain) Qty: 360 RF: 0 cyclobenzaprine 5 mg tablet 5 mg PO TID PRN (Reason: Spasms) RF: 0 polyethylene glycol 3350 [Miralax] 17 gram/dose powder 17 gram PO DAILY Qty: 510 RF: 0 lisinopril 20 mg tablet 10 mg PO DAILY RF: 0 morphine concentrate 100 mg/5 mL (20 mg/mL) Solution 20 - 60 mg PO PRN PRN (Reason: Pain, Severe) RF: 0 aspirin 81 mg Tablet,Chewable 81 mg PO DAILY RF: 0 metoclopramide HCl 10 mg tablet 10 mg PO ACHS RF: 0 simvastatin 40 mg tablet 40 mg PO QPM RF: 0 tamsulosin 0.4 mg capsule 0.4 mg PO QPM RF: 0 budesonide 3 mg capsule,delayed,extend.release 6 mg PO QAM RF: 0 Referrals: Khang Vasques MD [Primary Care Provider] -
[2019-11-06 12:01] LABS: PTT Partial Thromboplastin Tim 24 SECONDS (26.4-36.2)
[2019-11-06 12:03] LABS: Alanine Aminotransferase 260 IU/L (<50); Albumin 3.5 g/dL (3.5-5.0); Albumin Globulin Ratio 1.1 (1.0-2.8); Alkaline Phosphatase 97 U/L (38-126); Aspartate Aminotransferase 227 IU/L (17-59); Bilirubin Total 1.8 mg/dL (0.2-1.3); Blood Urea Nitrogen 21 mg/dL (9-20); Calcium 8.9 mg/dL (8.4-10.2); Carbon Dioxide 25 mmol/L (22-32); Chloride 99 mmol/L (98-107); Estimated Glomerular Filt Rate > 60.0 mL/min (>60); Globulin 3.3 g/dL (1.7-4.1); Glucose 393 mg/dL (80-110); HEMOLYSIS < 15 (0-50); Lipase 38 U/L (23-300); Potassium 3.2 mmol/L (3.4-5.1); Sodium 134 mmol/L (137-145); Total Protein 6.8 g/dL (6.3-8.2)
--- NOTE | 2019-11-06 12:04 | DI.CT.S_ITS ---
PROCEDURE: CT ABDOMEN PELVIS W CON INDICATIONS: llq pain TECHNIQUE: After the administration of intravenous contrast, 5 mm thick sections acquired from the diaphragm to the symphysis. 5 mm coronal and sagittal reformats were acquired. For radiation dose reduction, the following was used: automated exposure control, adjustment of mA and/or kV according to patient size. COMPARISON: [facility], CT, CT ABDOMEN PELVIS W CON, 04/22/2019, 20:45. [facility], CT, CT ABDOMEN PELVIS W CON, 06/01/2019, 15:06. [facility], CT, CT ABDOMEN PELVIS W CON, 05/20/2019, 16:06. FINDINGS: Image quality: Excellent. ABDOMEN: Lung bases: Lung bases are clear. Heart size is normal. Solid organs: Liver is normal in size and enhancement but does demonstrate a moderately heterogeneous pattern of fatty infiltration and slight nodularity of the hepatic capsular border worrisome for representing early cirrhosis, without identifiable mass lesion or varices. Gallbladder appears normal. Biliary system is non dilated. Pancreas enhances normally. Spleen is normal in size and enhancement. No adrenal nodules. Kidneys demonstrate normal size and enhancement, without hydronephrosis. Peritoneum and bowel: Bowel loops demonstrate normal wall thickness and caliber. No free fluid or air. Nodes and vessels: No retroperitoneal or mesenteric adenopathy by size criteria. Aorta and inferior vena cava are normal in size. Miscellaneous: No ventral hernias. PELVIS: Genitourinary: Bladder wall thickness is normal. Note is made of an eccentric slightly enhancing nodule again noted at the right lateral aspect of the prostate parenchyma. Miscellaneous: No inguinal hernias or adenopathy. Bones: No suspicious bony lesions. No vertebral body compression fractures. IMPRESSION: No acute disease. Note is made of a pattern of heterogeneous geographic fatty infiltration within the liver parenchyma, without focal mass. The Note also is made of a chronic focus of subtle increased enhancement of the prostate parenchyma, at and to the right of midline with a nodular pattern. This presumably has been biopsied but please correlate clinically if not given its identification on several prior CT scans and the potential that this could represent prostate malignancy. Dictated by: Laurent Trinidad M.D. on 11/06/2019 at 12:57 Approved by: Laurent Trinidad M.D. on 11/06/2019 at 13:03
[2019-11-06 12:05] LABS: Lactate (Lactic Acid) 2.2 mmol/L (0.7-2.1)
[2019-11-06 12:34] LABS: Amylase 70 U/L (30-110)
[2019-11-06 12:35] LABS: Creatine Kinase 34 U/L (55-170)
[2019-11-06 12:50] LABS: Troponin I 0.018 ng/mL (0.01-0.034)
[2019-11-06 13:08] LABS: NT-proBNP (BNP-Adult 18+) 711 pg/mL (<125)
[2019-11-06 13:47] LABS: Reflexed Lactate in 2 Hours Y
--- NOTE | 2019-11-06 13:54 | DI.RAD.S_ITS ---
PROCEDURE: XR CHEST 1V INDICATIONS: chest pain TECHNIQUE: One view of the chest was acquired. COMPARISON: [facility], CR, XR CHEST 1V, 06/18/2019, 10:27. FINDINGS: Surgical changes and devices: None. Lungs and pleura: Lungs are clear. No pleural effusions or pneumothorax. There may be a calcified granuloma the right lung base versus a calcified pleural plaque at the level of the diaphragm. Mediastinum: Mediastinal contours appear normal. Heart size is normal. Bones and chest wall: No suspicious bony lesions. Overlying soft tissues appear unremarkable. IMPRESSION: Stable chest. No acute cardiopulmonary process is evident. Dictated by: Raghavendra Marcos M.D. on 11/06/2019 at 14:14 Approved by: Raghavendra Marcos M.D. on 11/06/2019 at 14:17
[2019-11-06] MEDS: PANTOPRAZOLE 40 MG VIAL IV (13:56)
[2019-11-06] MEDS: MAG HYDROX/ALUMINUM/SIMETH SUS 20 ML, LIDOCAINE VISCOUS 2% 15 ML PO (13:56)
[2019-11-06 14:35] LABS: Lactate 2HR (Lactic Acid Rflx) 1.5 mmol/L (0.7-2.1)
[2019-11-06 14:43] LABS: Influenza A - CEPHEID Flu A NEGATIVE (NEGATIVE); Influenza B - CEPHEID Flu B NEGATIVE (NEGATIVE)
[2019-11-06 14:56] LABS: Creatine Kinase 40 U/L (55-170)
[2019-11-06 15:15] LABS: Troponin I 0.023 ng/mL (0.01-0.034)
[2019-11-06] MEDS: KETOROLAC 60 MG/2 ML VIAL 30 MG IV (15:16)
[2019-11-06] MEDS: SUCRALFATE 1 GM/10 ML ORAL SUSP PO (16:41)
[2019-11-06] MEDS: HYDROMORPHONE 1 MG INJ IV (17:34)
== END 2019-11-06 18:30 | disposition home or self-care (01) ==
PROVIDERS: Emergency Medicine; Emergency Provider Nurse Practitioner Family; PCP Internal Medicine
DX: R10.84 Generalized abdominal pain (principal); R07.9 Chest pain, unspecified; I48.91 Unspecified atrial fibrillation
CPT/HCPCS: 71045; 74177; 80053; 81003; 82150; 82550; 83605; 83690; 83880; 84484; 85025; 85610; 85730; 87502; 93005; 96361; 96374; 96375; 99284; C9113; J1170; J1885; J2270; J2405; Q9967

== ENCOUNTER 2019-11-07 09:13 | Emergency (ER) | payer OTHER, SELFPAY ==
[2019-08-15 19:17] VITALS: BMI 20.5
[2019-11-07] VITALS (10 sets, daily range): BP systolic 140–184; BP diastolic 84–113; PULSE 56–74; RESP 11–18; TEMP 37.2; O2SAT 96–99; BMI 20.9
--- NOTE | 2019-11-07 09:27 | ED_ITS ---
HPI - Arrhythmia/Palpitations General Chief Complaint: Arrhythmia/Palpitations Stated Complaint: SVT Time Seen by Provider: 11/07/19 09:27 Source: patient, family and EMS Mode of arrival: EMS Limitations: no limitations History of Present Illness HPI narrative: This is a 64-year-old male comes to the emergency department with complaint of his heart feeling like it was jumping in his chest, feeling pounding and sweaty this asked did for about 20 minutes he did take metoprolol p.o. and EMS was contacted. Patient has a history of atrial fibrillation and states he has had these episodes in the past he was told by his department administrator take an extra metoprolol if he had an episode. He was actually here yesterday more for abdominal pain Um but states he has had some episodes on and off. He states this morning episode occurred when he woke up overnight had some water and went to urinate. Patient states he continues to have some lower abdominal pain. He took an aspirin 324 mg yesterday and states that really tore up his stomach so he has not taken his aspirin today. He does have a cardiac history with a stent in his heart about 8-10 years ago he has never had an ablation and he had a stress test according him in his caregivers on August 27, 2019. Takes medications for hypertension, dyslipidemia, COPD chronic pain and follows with Dr. Alejo and Dr. Vasques for his cardiac and primary care. Related Data Home Medications Medication Instructions Recorded Confirmed cyclobenzaprine 5 mg tablet 5 mg PO TID PRN tab 03/20/19 11/06/19 metoclopramide HCl 10 mg tablet 10 mg PO ACHS 07/06/19 11/06/19 budesonide 6 mg PO QAM 08/15/19 11/06/19 simvastatin 40 mg PO QPM 08/15/19 11/06/19 tamsulosin 0.4 mg PO QPM 08/15/19 11/06/19 aspirin 81 mg PO DAILY 11/06/19 11/06/19 lisinopril 10 mg PO DAILY 11/06/19 11/06/19 morphine concentrate 20 - 60 mg PO PRN PRN 11/06/19 11/06/19 Previous Rx's Medication Instructions Recorded polyethylene glycol 3350 [Miralax] 17 gram PO DAILY #510 gram 06/07/19 ondansetron 4 mg disintegrating 4 mg PO Q6H PRN #30 tab 06/19/19 tablet omeprazole 40 mg capsule,delayed 40 mg PO BID #180 cap 08/23/19 release metoprolol tartrate 50 mg tablet 37.5 mg PO BID #60 tab 09/06/19 oxycodone 5 mg tablet 5 - 10 mg PO Q4H PRN #360 tab 10/24/19 omeprazole 20 mg PO DAILY #30 cap 11/06/19 sucralfate [Carafate] 1 gram PO QACHS #40 tab 11/06/19 Allergies Allergy/AdvReac Type Severity Reaction Status Date / Time No Known Drug Allergies Allergy Verified 11/07/19 09:27 Review of Systems Review of Systems ROS Unobtainable: All systems reviewed & are unremarkable except as noted in HPI and below Patient History Medical History Atrial fibrillation (Resolved) Chronic hepatitis (Chronic) Colitis (Resolved) Coronary artery disease involving [place] coronary artery of [place] heart without angina pectoris (Chronic ~2006) Diverticular disease (Chronic) Diverticulosis of large intestine (Chronic 03/31/12) Essential hypertension (Chronic) Hepatitis C (Chronic) Kidney stones (Resolved) Mixed hyperlipidemia (Chronic) Paroxysmal A-fib (Chronic) Prostate cancer (Chronic ~05/2019) Surgical History H/O heart artery stent (Acute ~2006) History of angioplasty (~12/2006) Hx of inguinal hernia surgery (Resolved ~09/20/08) Hx of inguinal hernia surgery (Resolved ~03/07/14) Status post laminectomy Social History marital status: unmarried,single number of children: 3 household members: none lives independently: Yes caregiver/support person: No housing: house pets and animals: No education level: high school (11th grade) occupational status: 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 HEENT: Head normocephalic, atraumatic, EOMI, pupils reactive, face symmetric, m oist mucous membranes NECK: Supple, full range of motion CARDIOVASCULAR: Bradycardic and regular rate and rhythm without murmurs, rubs or gallops. No JVD. No bruit or pulsatile mass. No swelling in lower extremities. RESPIRATORY: Breath sounds equal bilaterally, no wheezes rales or rhonchi. No tachypnea accessory muscle use. ABDOMEN: Soft, nondistended, mild tenderness generalized. Normoactive bowel sounds all 4 quadrants. No guarding or rebound, rigidity, no mass : No CVA tenderness EXTREMITIES: Normal range of motion, no clubbing or edema. Neurovascularly intact NEUROLOGICAL: Cranial nerves II through XII grossly intact. Moving all extremities SKIN: Warm, dry, no petechiae, no rashes or lesions. Initial Vital Signs Initial Vital Signs: Vital Signs Temperature 99.0 F 11/07/19 09:12 Pulse Rate 56 L 11/07/19 09:12 Respiratory Rate 16 11/07/19 09:12 Blood Pressure 184/106 H 11/07/19 09:12 Pulse Oximetry 99 11/07/19 09:12 Course Orders Ordered: ED Orders 11/07/19 10:18 US abdomen complete Stat 11/07/19 12:07 Troponin & CK Cardiac Panel Stat 11/07/19 12:10 EKG-12 Lead Stat Discontinued Medications Hydromorphone HCl (Dilaudid) 1 mg IV NOW ONE Stop: 11/07/19 09:46 Last Admin: 11/07/19 10:27 Dose: 1 mg Documented by: MEISENB Hydromorphone HCl (Dilaudid) 1 mg IV NOW ONE Stop: 11/07/19 13:44 Last Admin: 11/07/19 13:48 Dose: 1 mg Documented by: MEISENB Potassium Chloride (Potassium Chloride) 40 meq PO NOW ONE Stop: 11/07/19 10:19 Last Admin: 11/07/19 11:01 Dose: 40 meq Documented by: RENYSENKirstin Vital Signs Vital signs: Vital Signs - 8 hr 11/07/19 11:00 11/07/19 11:08 11/07/19 11:30 Pulse Rate 69 68 58 L Respiratory Rate 18 Blood Pressure [Left Arm] 161/100 H 153/98 H 166/99 H Pulse Oximetry 98 11/07/19 11:40 11/07/19 12:10 11/07/19 12:30 Pulse Rate 63 65 64 Respiratory Rate 18 14 Blood Pressure [Left Arm] 166/99 H 140/90 154/84 H Pulse Oximetry 98 97 11/07/19 13:00 11/07/19 14:00 Pulse Rate 67 74 Respiratory Rate 11 L 16 Blood Pressure [Left Arm] 159/99 H Pulse Oximetry 99 96 MDM - Arrhythmia/Palpitations Lab Data Attestation: I reviewed the patient's lab results. Result diagrams: 11/07/19 09:35 11/07/19 09:35 Labs: Lab Results 11/07/19 11/07/19 11/07/19 Range/Units 09:35 09:35 09:35 WBC 7.2 (4.5-11.0) X10^3/uL RBC 4.59 (4.5-5.9) X10^6/uL Hgb 15.5 (13.5-17.5) g/dL Hct 42.9 (41-53) % MCV 93.4 (80-100) fL MCH 33.7 (26-34) PG MCHC 36.1 H (30-36) % RDW 13.4 (11.6-14.8) % Plt Count 114 L (150-400) X10^3/uL Neut % (Auto) 75.9 H (50-75) % Lymph % (Auto) 12.0 L (25-40) % Sampson % (Auto) 11.7 (3-14) % Eos % (Auto) 0.1 L (2-4) % Baso % (Auto) 0.3 (0-2) % Neut # (Auto) 5500 (7887-4395) /uL Lymph # (Auto) 900 L (1808-5366) /uL Sampson # (Auto) 800 (0-900) /uL Eos # (Auto) 0 (0-450) /uL Baso # (Auto) 0 (0-100) /uL PT 12.0 (10.1-12.7) SECONDS INR 1.0 (0.9-1.3) APTT 25 L (26.4-36.2) SECONDS Sodium 133 L (137-145) mmol/L Potassium 3.1 L (3.4-5.1) mmol/L Chloride 98 (98-107) mmol/L Carbon Dioxide 24 (22-32) mmol/L BUN 16 (9-20) mg/dL Creatinine 0.40 L (0.66-1.25) mg/dL Estimated GFR > 60.0 (>60) mL/min BUN/Creatinine Ratio 40.0 H (6-22) Glucose 310 H (80-110) mg/dL Calcium 8.5 (8.4-10.2) mg/dL Total Bilirubin 1.8 H (0.2-1.3) mg/dL AST 440 H (17-59) IU/L ALT 322 H (<50) IU/L Alkaline Phosphatase 92 (38-126) U/L Total Creatine Kinase 37 L (55-170) U/L CK-MB (CK-2) TNP CK-MB (CK-2) Rel Index TNP Troponin I 0.018 (0.01-0.034) ng/mL NT-Pro-B Natriuret Pep (<125) pg/mL Total Protein 6.7 (6.3-8.2) g/dL Albumin 3.5 (3.5-5.0) g/dL Globulin 3.2 (1.7-4.1) g/dL Albumin/Globulin Ratio 1.1 (1.0-2.8) Lipase 59 D (23-300) U/L 11/07/19 11/07/19 Range/Units 09:35 12:07 WBC (4.5-11.0) X10^3/uL RBC (4.5-5.9) X10^6/uL Hgb (13.5-17.5) g/dL Hct (41-53) % MCV (80-100) fL MCH (26-34) PG MCHC (30-36) % RDW (11.6-14.8) % Plt Count (150-400) X10^3/uL Neut % (Auto) (50-75) % Lymph % (Auto) (25-40) % Sampson % (Auto) (3-14) % Eos % (Auto) (2-4) % Baso % (Auto) (0-2) % Neut # (Auto) (9326-9185) /uL Lymph # (Auto) (4092-8606) /uL Sampson # (Auto) (0-900) /uL Eos # (Auto) (0-450) /uL Baso # (Auto) (0-100) /uL PT (10.1-12.7) SECONDS INR (0.9-1.3) APTT (26.4-36.2) SECONDS Sodium (137-145) mmol/L Potassium (3.4-5.1) mmol/L Chloride (98-107) mmol/L Carbon Dioxide (22-32) mmol/L BUN (9-20) mg/dL Creatinine (0.66-1.25) mg/dL Estimated GFR (>60) mL/min BUN/Creatinine Ratio (6-22) Glucose (80-110) mg/dL Calcium (8.4-10.2) mg/dL Total Bilirubin (0.2-1.3) mg/dL AST (17-59) IU/L ALT (<50) IU/L Alkaline Phosphatase (38-126) U/L Total Creatine Kinase 33 L (55-170) U/L CK-MB (CK-2) TNP CK-MB (CK-2) Rel Index TNP Troponin I 0.026 (0.01-0.034) ng/mL NT-Pro-B Natriuret Pep 658 H (<125) pg/mL Total Protein (6.3-8.2) g/dL Albumin (3.5-5.0) g/dL Globulin (1.7-4.1) g/dL Albumin/Globulin Ratio (1.0-2.8) Lipase (23-300) U/L Imaging Data Chest x-ray: Radiologist[employer]resson: [address] [address] XRay Report Signed Patient: Brennan Marmolejo CMR#: [id number] : [id number]:[id number] Age/Sex: 64 / MDate of Service: 11/07/19 Loc: ED Accession Number: [id number] Procedure: XR chest 1V Ordering Provider: Ashley Carrasco D.O. PROCEDURE: XR CHEST 1V INDICATIONS: chest pain TECHNIQUE: One view of the chest was acquired. COMPARISON: [facility], CR, XR CHEST 1V, 11/06/2019, 14:39. [facility], CR, XR CHEST 1V, 06/18/2019, 10:27. FINDINGS: Surgical changes and devices: None. Lungs and pleura: Lungs are clear. No pleural effusions or pneumothorax. Mediastinum: Mediastinal contours appear normal. Heart size is normal. Bones and chest wall: No suspicious bony lesions. Overlying soft tissues appear unremarkable. IMPRESSION: Normal for age, source of current chest pain symptoms is not seen. Dictated by: Laurent Trinidad M.D. on 11/07/2019 at 10:03 Approved by: Laurent Trinidad M.D. on 11/07/2019 at 10:03 US - abdomen: Radiologist[employer] Impresson: Brennan Marmolejo Karlene Cruz [address] [place] [address] Ultrasound Report Signed Patient: Brennan Marmolejo CMR#: [id number] : [id number]:[id number] Age/Sex: 64 / MDate of Service: 11/07/19 Loc: ED Accession Number: [id number] Procedure: US abdomen complete Ordering Provider: Ashley Carrasco D.O. PROCEDURE: US ABDOMEN COMPLETE INDICATIONS: PAIN TECHNIQUE: Real-time scanning was performed of the abdominal and retroperitoneal organs, with image documentation. COMPARISON: None. FINDINGS: Liver: Liver is normal in size and homogeneous in echotexture, diffusely mod erately fatty infiltrated. Gallbladder: The gallbladder appears normal Biliary ducts: Intrahepatic bile ducts are non-dilated. Extrahepatic bile duct caliber measures 4.8 mm. Normal is 6-7 mm or less in diameter, or 10 mm or less post-cholecystectomy. Pancreas: Visualized portions of the pancreas are sonographically normal. Spleen: Spleen is normal in size and homogeneous in echotexture. Kidneys: Kidneys are normal in size and echotexture. Right kidney measures 10.1 cm long; left kidney measures 12.2 cm long. No hydronephrosis or nephrolithiasis. No solid masses. Aorta: Visualized aorta is normal in caliber at less than 3 cm. Iliacs: Proximal common iliac arteries are normal in caliber at less than 2.5 cm. IVC: Intrahepatic inferior vena cava is patent. Miscellaneous: No free abdominal fluid. IMPRESSION: Moderate fatty infiltration throughout the liver, no other source of pain is identified. Clinical correlation for cause of hepatic steatosis is recommended. Dictated by: Laurent Trinidad M.D. on 11/07/2019 at 11:34 Approved by: Laurent Trinidad M.D. on 11/07/2019 at 11:35 ECG Data Attestation: I personally reviewed and interpreted this ECG as follows: Prior ECG tracings: available for review Interpretation: Sinus bradycardia with sinus arrhythmia, rate of 58 LA 146 QRS is 78 and QTC of 445. Some motion artifact but no ST elevation or depression appreciated. Left atrial enlargement. Patient has prior EKG from 11/06/2019 which appears similar today although there was some motion artifact in leads 1 2 and 3. The EMS EKG do show a likely supraventricular tachycardia the heart rate of 165 other strips show bradycardia. EKG 2. Shows sinus bradycardia rate of 57 P are 140 QRS 80 and QTC of 462. Nonspecific change. Patient has no new ST elevation. No depression EKG appears similar except for the motion artifact initial leads with the exception of T- wave inversion but only in lead 3 it is not seen in lead 2 or AVF. [facility] Narrative Medical decision making narrative: Patient does appear to have had a short episode of SVT or illicit supraventricular tachycardia that could be AFib although looks fairly regular on EKG from EMS. Last 2 short. Patient received 500 cc of fluid but no other antiarrhythmics from EMS it resolved to a sinus bradycardia which she has remained in since his arrival. Patient continues to have abdominal pain he denies any chest pain or pressure at this time. He does continue to have some abdominal discomfort and is requesting pain medication and he has not had his normal pain medication today as well. He did not take his morning medications but did take a dose of metoprolol after this episode started. Patient's labs show elevation of his LFTs he has known hepatitis-C, his abdom inal ultrasound does not show any new changes or other causes for his LFT elevation. Troponins negative x2 with no major new EKG changes. He has a little bit of nonspecific change. He was hypertensive initially he has been bradycardic he had taken his home metoproprol all just prior to transportation and this seems to be taking in his blood pressures improved to is more normal range and he has been without any further episodes., coags show no changes in potassium is 3.1 is replaced today which may have precipitated his episode and made him more likely to have tachycardia. Although his BNP is 658 was 711 yesterday with no priors. Spoke with Dr. Thornton who is covering for patient's cardiology team. Patient does have a little bit of low potassium may be making him more likely and she would not change his medications at this time. She will be in contact with his department administrator to update him so they can have some post follow-up. He did have a stress test in August which she states showed no major changes. And she recommends to continue with the plan of an increased dose of metoprolol if he has episodes. And also to educate him on Valsalva maneuvers if he is not already aware. Patient was able to ambulate in the department he has not had any further arrhythmias. He did request a dose of pain medication before ambulation. Patient and I discussed along with his caregivers all recommendations from the department administrator. He states that he has been told he actually has SVT and not atrial fibrillation he states he just typically uses the wrong word. Discharge Plan Departure Patient Disposition: Home Clinical Impression: Cardiac arrhythmia Discharge Date/Time: 11/07/19 14:49 Instructions: DI for Arrhythmias Activity Restrictions/Additional Instructions: Follow-up with your department administrator in the next week. Call for an appointment. I did speak with the on-call department administrator and they will relay to Dr. Alejo today's findings. Continue home medications as prescribed. It is also still recommended if you have an episode of increased heart rate that you take 1 extra dose of metoprolol. Your potassium was low today this should be rechecked sometime this next week if this makes you more likely to have cardiac arrhythmias it was replaced by mouth today. Return to the ER for fevers, recurrent fast heart rate that does not respond to metoprolol, chest pain, lightheadedness or passing out, new shortness of breath, persistent vomiting, swelling in your extremities or other new or concerning symptoms Prescriptions: No Action ondansetron 4 mg tablet,disintegrating 4 mg PO Q6H PRN (Reason: Nausea) Qty: 30 RF: 3 omeprazole 40 mg capsule,delayed release(DR/EC) 40 mg PO BID Qty: 180 RF: 1 metoprolol tartrate 50 mg tablet 37.5 mg PO BID Qty: 60 RF: 0 oxycodone 5 mg tablet 5 - 10 mg PO Q4H PRN (Reason: pain) Qty: 360 RF: 0 cyclobenzaprine 5 mg tablet 5 mg PO TID PRN (Reason: Spasms) RF: 0 polyethylene glycol 3350 [Miralax] 17 gram/dose powder 17 gram PO DAILY Qty: 510 RF: 0 lisinopril 20 mg tablet 10 mg PO DAILY RF: 0 morphine concentrate 100 mg/5 mL (20 mg/mL) Solution 20 - 60 mg PO PRN PRN (Reason: Pain, Severe) RF: 0 aspirin 81 mg Tablet,Chewable 81 mg PO DAILY RF: 0 omeprazole 20 mg capsule,delayed release(DR/EC) 20 mg PO DAILY Qty: 30 RF: 0 sucralfate [Carafate] 1 gram tablet 1 gram PO QACHS Qty: 40 RF: 0 metoclopramide HCl 10 mg tablet 10 mg PO ACHS RF: 0 simvastatin 40 mg tablet 40 mg PO QPM RF: 0 tamsulosin 0.4 mg capsule 0.4 mg PO QPM RF: 0 budesonide 3 mg capsule,delayed,extend.release 6 mg PO QAM RF: 0 Referrals: Delfin Alejo MD [Physician] - Khang Vasques MD [Primary Care Provider] -
[2019-11-07 09:50] LABS: Add Manual Diff / Slide Review NO; Basophils Absolute Auto 0 /uL (0-100); Basophils Percent Auto 0.3 % (0-2); Eosinophils Absolute Auto 0 /uL (0-450); Eosinophils Percent Auto 0.1 % (2-4); Hematocrit 42.9 % (41-53); Hemoglobin 15.5 g/dL (13.5-17.5); Lymphocytes Absolute Auto 900 /uL (1100-4500); Mean Corpuscular HGB Conc 36.1 % (30-36); Mean Corpuscular Hemoglobin 33.7 PG (26-34); Mean Corpuscular Volume 93.4 fL (80-100); Monocytes Absolute Auto 800 /uL (0-900); Monocytes Percent Auto 11.7 % (3-14); Neutrophils Absolute Auto 5500 /uL (1500-7000); Neutrophils Percent Auto 75.9 % (50-75); Platelet Count 114 X10^3/uL (150-400); Red Blood Cell Count 4.59 X10^6/uL (4.5-5.9); Red Cell Distribution Width 13.4 % (11.6-14.8); White Blood Cell Count 7.2 X10^3/uL (4.5-11.0)
[2019-11-07 09:52] LABS: PTT Partial Thromboplastin Tim 25 SECONDS (26.4-36.2)
[2019-11-07 09:55] LABS: Alanine Aminotransferase 322 IU/L (<50); Albumin 3.5 g/dL (3.5-5.0); Albumin Globulin Ratio 1.1 (1.0-2.8); Alkaline Phosphatase 92 U/L (38-126); Aspartate Aminotransferase 440 IU/L (17-59); Bilirubin Total 1.8 mg/dL (0.2-1.3); Blood Urea Nitrogen 16 mg/dL (9-20); Calcium 8.5 mg/dL (8.4-10.2); Carbon Dioxide 24 mmol/L (22-32); Chloride 98 mmol/L (98-107); Creatine Kinase 37 U/L (55-170); Estimated Glomerular Filt Rate > 60.0 mL/min (>60); Globulin 3.2 g/dL (1.7-4.1); Glucose 310 mg/dL (80-110); HEMOLYSIS < 15 (0-50); Lipase 59 U/L (23-300); Potassium 3.1 mmol/L (3.4-5.1); Sodium 133 mmol/L (137-145); Total Protein 6.7 g/dL (6.3-8.2)
[2019-11-07 10:02] LABS: NT-proBNP (BNP-Adult 18+) 658 pg/mL (<125)
[2019-11-07 10:06] LABS: Troponin I 0.018 ng/mL (0.01-0.034)
--- NOTE | 2019-11-07 10:18 | DI.US.S_ITS ---
PROCEDURE: US ABDOMEN COMPLETE INDICATIONS: PAIN TECHNIQUE: Real-time scanning was performed of the abdominal and retroperitoneal organs, with image documentation. COMPARISON: None. FINDINGS: Liver: Liver is normal in size and homogeneous in echotexture, diffusely moderately fatty infiltrated. Gallbladder: The gallbladder appears normal Biliary ducts: Intrahepatic bile ducts are non-dilated. Extrahepatic bile duct caliber measures 4.8 mm. Normal is 6-7 mm or less in diameter, or 10 mm or less post-cholecystectomy. Pancreas: Visualized portions of the pancreas are sonographically normal. Spleen: Spleen is normal in size and homogeneous in echotexture. Kidneys: Kidneys are normal in size and echotexture. Right kidney measures 10.1 cm long; left kidney measures 12.2 cm long. No hydronephrosis or nephrolithiasis. No solid masses. Aorta: Visualized aorta is normal in caliber at less than 3 cm. Iliacs: Proximal common iliac arteries are normal in caliber at less than 2.5 cm. IVC: Intrahepatic inferior vena cava is patent. Miscellaneous: No free abdominal fluid. IMPRESSION: Moderate fatty infiltration throughout the liver, no other source of pain is identified. Clinical correlation for cause of hepatic steatosis is recommended. Dictated by: Laurent Trinidad M.D. on 11/07/2019 at 11:34 Approved by: Laurent Trinidad M.D. on 11/07/2019 at 11:35
[2019-11-07] MEDS: HYDROMORPHONE 1 MG INJ IV ×2 (10:27→13:48)
[2019-11-07] MEDS: POTASSIUM CHLORIDE 20 MEQ/15 ML UDC 40 MEQ PO (11:01)
[2019-11-07 12:24] LABS: Creatine Kinase 33 U/L (55-170)
[2019-11-07 12:37] LABS: Troponin I 0.026 ng/mL (0.01-0.034)
--- NOTE | 2019-11-07 13:44 | PC.NURSE ---
pain medications, then will ambulate, family at bs.
== END 2019-11-07 14:49 | disposition home or self-care (01) ==
PROVIDERS: Emergency Provider Emergency Medicine; PCP Internal Medicine
DX: I49.9 Cardiac arrhythmia, unspecified (principal)
CPT/HCPCS: 36415; 71045; 76700; 80053; 82550; 83690; 83880; 84484; 85025; 85610; 85730; 93005; 96374; 96375; 96376; 99285; J1170

== ENCOUNTER → 2020-02-28 07:59 | Outpatient (CLI) | payer OTHER, SELFPAY ==
[2019-08-15 19:17] VITALS: BMI 20.5
[2020-02-28 09:15] LABS: Alanine Aminotransferase 278 IU/L (<50); Albumin 4.1 g/dL (3.5-5.0); Albumin Globulin Ratio 1.3 (1.0-2.8); Alkaline Phosphatase 204 U/L (38-126); Aspartate Aminotransferase 283 IU/L (17-59); BUN Creatinine Ratio 36.2 (6-22); Bilirubin Unconjugated 0.7 mg/dL (0.0-1.1); Blood Urea Nitrogen 17 mg/dL (9-20); Calcium 9.5 mg/dL (8.4-10.2); Carbon Dioxide 27 mmol/L (22-32); Chloride 100 mmol/L (98-107); Estimated Glomerular Filt Rate > 60.0 mL/min (>60); Globulin 3.1 g/dL (1.7-4.1); Glucose 343 mg/dL (80-110); HEMOLYSIS 49 (0-50); Potassium 3.9 mmol/L (3.4-5.1); Sodium 136 mmol/L (137-145); Total Protein 7.2 g/dL (6.3-8.2)
[2020-02-28 09:42] LABS: Prostate Specific Antigen 9.66 ng/mL (0.10-4.00)
== END ==
PROVIDERS: PCP Internal Medicine; Referring Provider Internal Medicine; Visit Provider Urology
DX: Z85.46 Personal history of malignant neoplasm of prostate (principal); K73.9 Chronic hepatitis, unspecified; R74.0 Nonspecific elevation of levels of transaminase and lactic acid dehydrogenase [LDH]
CPT/HCPCS: 36415; 80048; 80076; 84153

== ENCOUNTER → 2020-03-04 10:30 | Outpatient (CLI) | payer OTHER, SELFPAY ==
[2019-08-15 19:17] VITALS: BMI 20.5
[2020-03-04 12:30] LABS: BUN Creatinine Ratio 31.3 (6-22); Blood Urea Nitrogen 15 mg/dL (9-20); Calcium 9.7 mg/dL (8.4-10.2); Carbon Dioxide 24 mmol/L (22-32); Chloride 100 mmol/L (98-107); Estimated Glomerular Filt Rate > 60.0 mL/min (>60); Glucose 453 mg/dL (80-110); HEMOLYSIS 23 (0-50); Potassium 4.2 mmol/L (3.4-5.1); Sodium 134 mmol/L (137-145)
== END ==
PROVIDERS: PCP Internal Medicine; Referring Provider Internal Medicine; Visit Provider Internal Medicine
DX: E11.65 Type 2 diabetes mellitus with hyperglycemia (principal)
CPT/HCPCS: 36415; 80048; 83036

== ENCOUNTER 2020-04-17 12:49 | Outpatient (CLI) | payer OTHER, SELFPAY ==
[2019-08-15 19:17] VITALS: BMI 20.5
== END 2020-04-17 16:41 | disposition home or self-care (01) ==
LOC: PHYS 12:50
PROVIDERS: PCP Internal Medicine; Referring Provider Internal Medicine; Visit Provider Internal Medicine
DX: R20.2 Paresthesia of skin (principal)
CPT/HCPCS: 95886; 95910

== ENCOUNTER → 2020-05-13 10:51 | Outpatient (CLI) | payer OTHER, SELFPAY ==
[2019-08-15 19:17] VITALS: BMI 20.5
--- NOTE | 2020-05-13 15:46 | DIET.PN ---
Diabetes Intake: Initial Assessment Assess: Mr. Marmolejo is a 64 YOM referred for type 2 diabetes. He is newly diagnosed with diabetes. He report he does not each much sugar. HX of lower GI inflammation, a fib, CAD, diverticular disease, Hepatitis C. He reports poor dentition and generally eats soft meats. 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 He has been monitoring his blood glucose with a glucometer he received from a friend. He reports blood glucose in the 140-170?s in the morning. He does endorse some numbness in his leg and foot, but unsure if this is related to diabetes. Labs: Per pt report: A1c: 12.0 (02/2020) 5.9 (05/2019) Meds: metf 500mg BID Diet: per 24 hr recall: B: Ensure, toast S: fruit (plum, nectarine, peach, berries) L: Ensure, cucumber sandwich (potato bread) S: fruit; hummus on bread D: soups; fish w/ rice, asparagus S: Ensure, ice cream Canned fruits , butter, nut butters, blueberry pancakes, ensure Wt: 130lb Ht: 68in BMI: 19.8 BP: 134/60 DX: Altered nutrition related laboratory values related to impaired glucose metabolism, lack of previous exposure to nutrition information as evidenced by pt report, diagnosis of diabetes, previous diet high in refined carbohydrates. Intervention: 1. Completed intake assessment. Discussed barriers to care. 2. Discussed pathophysiology of diabetes. Reviewed A1c and its correlation to blood glucose numbers. Discussed recommended BG ranges. 3. Discussed importance of self-monitoring, how often, and when to check. Reviewed hyper/hypoglycemia and treatment. 4. Reviewed safe disposal of equipment (strip/lancets/insulin needles). 5. Created SMART goals for pt self-care and success. 6. Discussed program curriculum outline and class needs based on individual goals. SMART Goals: 1. Pt would like to learn healthy eating for glucose control and more energy. Monitor/Evaluate: Healthy Eating 1 scheduled for May 27.
== END ==
PROVIDERS: PCP Internal Medicine; Referring Provider Internal Medicine; Visit Provider Internal Medicine
DX: E11.9 Type 2 diabetes mellitus without complications (principal); K08.89 Other specified disorders of teeth and supporting structures; Z79.84 Long term (current) use of oral hypoglycemic drugs; Z71.3 Dietary counseling and surveillance
CPT/HCPCS: G0108

== ENCOUNTER → 2020-05-27 10:09 | Outpatient (CLI) | payer OTHER, SELFPAY ==
[2019-08-15 19:17] VITALS: BMI 20.5
[2020-05-27 11:44] LABS: Blood Urea Nitrogen 30 mg/dL (9-20); Calcium 9.7 mg/dL (8.4-10.2); Carbon Dioxide 27 mmol/L (22-32); Chloride 105 mmol/L (98-107); Estimated Glomerular Filt Rate > 60.0 mL/min (>60); Glucose 152 mg/dL (80-110); HEMOLYSIS < 15 (0-50); Potassium 3.8 mmol/L (3.4-5.1); Sodium 140 mmol/L (137-145)
[2020-05-27 11:52] LABS: Hemoglobin A1C% w Est Avg Glu 6.6 % (4.0-6.0)
== END ==
PROVIDERS: PCP Internal Medicine; Referring Provider Internal Medicine; Visit Provider Internal Medicine
DX: E11.65 Type 2 diabetes mellitus with hyperglycemia (principal)
CPT/HCPCS: 36415; 80048; 83036

== ENCOUNTER → 2020-05-27 11:44 | Outpatient (CLI) | payer OTHER, SELFPAY ==
[2019-08-15 19:17] VITALS: BMI 20.5
--- NOTE | 2020-05-27 11:46 | DIET.PN ---
Diabetes: Healthy Eating 1 Intervention: ? Discussed pathophysiology of diabetes and impact of nutrition/diet on blood sugar control.? Discussed fed versus non-fed state.?? ? Reviewed importance of Balance, Variety, and Moderation. ? Discussed the effect of carbohydrates/protein/fat on blood sugar control.? ? Stressed importance of consistent carbohydrate intake at each meal and provided instructions for recommended servings/portions of carbohydrates/protein per meal. Provided educational material. ? Reviewed carbohydrate counting and measuring carbohydrate content via serving sizes and reading nutrition labels.? Provided handouts.?? ? Discussed the difference between simple versus complex carbohydrates and the effect of fiber on blood sugar control.? Discussed various methods to increase fiber content in diet. ? Discussed the plate method for creating more carbohydrate conscious balanced meals. ? Stressed importance of meal timing and not going >4-5 hours between meals. Encouraged adding protein to evening snack to support glucose control overnight. ? Discussed importance of making dietary habits part of lifestyle change.
== END ==
PROVIDERS: PCP Internal Medicine; Referring Provider Internal Medicine; Visit Provider Internal Medicine
DX: E11.65 Type 2 diabetes mellitus with hyperglycemia (principal); Z71.3 Dietary counseling and surveillance
CPT/HCPCS: 36415; 80048; 83036; G0109

== ENCOUNTER → 2020-06-12 10:52 | Outpatient (CLI) | payer OTHER, SELFPAY ==
[2019-08-15 19:17] VITALS: BMI 20.5
--- NOTE | 2020-06-12 10:55 | DI.NM.S_ITS ---
PROCEDURE: NM BONE SCAN WHOLE BODY RADIOPHARMACEUTICAL: 20.9 mCi Tc-99m MDP IV. INDICATIONS: prostate cancer TECHNIQUE: Delayed whole-body scintigrams were obtained approximately 3-4 hours after intravenous injection of radiotracer. Anterior and posterior views were acquired from vertex to feet. COMPARISON: [facility], CT, CT ABDOMEN PELVIS W CON, 11/06/2019, 12:21. FINDINGS: Within the lateral aspect of the left 9th rib there is a single small focus of elevated isotope deposition, with no additional abnormality involving adjacent ribs or the axial and appendicular skeleton elsewhere IMPRESSION: In this patient with a small focus of elevated isotope deposition and the setting of prostate carcinoma the lesion is worrisome, unless focal trauma to this site has recently occurred. Continued attention to this abnormality on subsequent nuclear medicine bone scanning is recommended.. Dictated by: Laurent Trinidad M.D. on 06/12/2020 at 16:37 Approved by: Laurent Trinidad M.D. on 06/12/2020 at 16:41
== END ==
PROVIDERS: PCP Internal Medicine; Referring Provider Internal Medicine; Visit Provider Internal Medicine
DX: C61 Malignant neoplasm of prostate (principal); M89.9 Disorder of bone, unspecified
CPT/HCPCS: 78306; A9503

== ENCOUNTER 2020-07-08 13:43 | Observation (INO) | payer OTHER, SELFPAY ==
[2019-08-15 19:17] VITALS: BMI 20.5
[2020-07-08] VITALS (39 sets, daily range): BP systolic 124–222; BP diastolic 78–119; PULSE 54–84; RESP 8–32; TEMP 36.8–37.7; O2SAT 95–99; BMI 19.8
[2020-07-08] MEDS: PANTOPRAZOLE 40 MG VIAL IV (14:18)
[2020-07-08] MEDS: SODIUM CHLORIDE 0.9% 1,000 ML 999 ML IV (14:19)
[2020-07-08 14:23] LABS: Add Manual Diff / Slide Review NO; Basophils Absolute Auto 0 /uL (0-100); Basophils Percent Auto 0.1 % (0-2); Eosinophils Absolute Auto 0 /uL (0-450); Hematocrit 46.7 % (41-53); Hemoglobin 15.6 g/dL (13.5-17.5); Lymphocytes Absolute Auto 500 /uL (1100-4500); Lymphocytes Percent Auto 10.1 % (25-40); Mean Corpuscular HGB Conc 33.5 % (30-36); Mean Corpuscular Hemoglobin 32.5 PG (26-34); Mean Corpuscular Volume 97.2 fL (80-100); Monocytes Absolute Auto 400 /uL (0-900); Neutrophils Absolute Auto 3700 /uL (1500-7000); Neutrophils Percent Auto 81.8 % (50-75); Platelet Count 96 X10^3/uL (150-400); Red Cell Distribution Width 13.1 % (11.6-14.8); White Blood Cell Count 4.5 X10^3/uL (4.5-11.0)
[2020-07-08 14:36] LABS: PTT Partial Thromboplastin Tim 28 SECONDS (26.4-36.2)
[2020-07-08 14:37] LABS: Creatine Kinase 25 U/L (55-170)
[2020-07-08] MEDS: NITROGLYCERIN OINT 1 INCH/GM OINT...G. TOP (14:37)
[2020-07-08 14:39] LABS: Alanine Aminotransferase 621 IU/L (<50); Albumin 4.1 g/dL (3.5-5.0); Albumin Globulin Ratio 1.2 (1.0-2.8); Alkaline Phosphatase 113 U/L (38-126); Aspartate Aminotransferase 398 IU/L (17-59); BUN Creatinine Ratio 40.4 (6-22); Bilirubin Total 0.9 mg/dL (0.2-1.3); Blood Urea Nitrogen 21 mg/dL (9-20); Carbon Dioxide 26 mmol/L (22-32); Chloride 109 mmol/L (98-107); Estimated Glomerular Filt Rate > 60.0 mL/min (>60); Globulin 3.5 g/dL (1.7-4.1); Glucose 222 mg/dL (80-110); HEMOLYSIS < 15 (0-50); Lipase 91 U/L (23-300); Potassium 3.9 mmol/L (3.4-5.1); Sodium 140 mmol/L (137-145); Total Protein 7.6 g/dL (6.3-8.2)
--- NOTE | 2020-07-08 14:47 | ED.NAVMDI ---
HPI - Nausea/Vomiting/Diarrhea <ALEX Briggs - Last Filed: 07/08/20 20:16> General Chief complaint: Nausea/Vomiting/Diarrhea Stated complaint: N/V/D, Abd pain Time Seen by Provider: 07/08/20 13:44 Source: patient and EMS Mode of arrival: EMS Limitations: no limitations History of Present Illness HPI Narrative: This is a 64-year-old male, nonsmoker, who has past history of significant for hypertension, cardiac stent, colitis, diverticulitis, prostate cancer, diabetes, inguinal hernia repair presents to ED with EMS with chief complain of feeling fatigue, nausea and vomiting, left lower quadrant pain. Patient reports left lower quadrant pain started 2 days ago and had 4 episodes nonbloody by like vomiting, 3 episodes of soft bowel movement without blood this morning. Patient reports he could not tolerate any medications or water today. Patient felt significant discomfort during bowel movement. Patient denies fever but reports chills. Patient denies any known exposure to Covid illness and states lives alone and has been social distancing himself. Patient denies chest pain, breathing difficulty, or dizziness. Patient had not started prostate cancer treatment and he is working with . Patient denies urinary symptoms except his normal urinary frequency. Last p.o. intake was last night in small amount of snacks. Patient's caregiver and friend reports patient actually gained some weight at this point. Related Data Home Medications Medication Instructions Recorded Confirmed cyclobenzaprine 5 mg tablet 5 mg PO TID PRN tab 03/20/19 07/08/20 tamsulosin 0.4 mg PO QPM 08/15/19 07/08/20 aspirin 81 mg PO QAM 11/06/19 07/08/20 lisinopril 10 mg PO QAM 11/06/19 07/08/20 metoprolol tartrate 50 mg tablet 50 mg PO BID tab 03/04/20 07/08/20 Previous Rx's Medication Instructions Recorded ondansetron 4 mg disintegrating 4 mg PO Q6H PRN #30 tab 06/19/19 tablet simvastatin 40 mg tablet 40 mg PO QPM #90 tab 11/19/19 omeprazole 40 mg capsule,delayed 40 mg PO BID #180 cap 11/27/19 release budesonide 3 mg 6 mg PO QAM #180 each 12/04/19 capsule,delayed,extended release oxycodone 5 mg tablet 5 - 10 mg PO Q4H PRN #360 tab 04/01/20 blood sugar diagnostic #100 each 05/13/20 blood-glucose meter #1 each 05/13/20 lancets 30 gauge #100 each 05/13/20 metformin 500 mg tablet 500 mg PO BID #180 tab 05/26/20 Allergies Allergy/AdvReac Type Severity Reaction Status Date / Time No Known Drug Allergies Allergy Verified 07/08/20 15:23 Review of Systems <ALEX Briggs - Last Filed: 07/08/20 20:16> Review of Systems Narrative: General: See HPI HEENT: Denies sinus pain, ear pain, sore throat, difficulty swallowing, dizziness. Respiratory: Denies dyspnea, cough, wheezing, hemoptysis, sputum. Cardiovascular: Denies chest pain, palpitations, orthopnea, edema. Gastrointestinal: See HPI : Denies dysuria, (+) usual frequency, incontinence, hematuria, urinary retention. Musculoskeletal: Denies weakness, joint pain or bony pain. Skin: Denies rash, skin lesions, or other. Neurologic: Denies (+) generalized weakness, headache, numbness, change in speech, confusion, seizures, incoordination. Psychiatric: No concerning psychosocial issues. 12-point review of systems is negative except for those stated above. Patient History <ALEX Briggs - Last Filed: 07/08/20 20:16> Medical History Atrial fibrillation (Resolved) Chronic hepatitis (Chronic) Colitis (Resolved) Coronary artery disease involving [place] coronary artery of [place] heart without angina pectoris (Chronic ~2006) Diabetes type 2, controlled (Chronic) Diabetes type 2, uncontrolled (Chronic) Diabetic peripheral neuropathy (Chronic) Diverticular disease (Chronic) Diverticulosis of large intestine (Chronic 03/31/12) Essential hypertension (Chronic) Hepatitis C (Chronic) Kidney stones (Resolved) Mixed hyperlipidemia (Chronic) Paroxysmal A-fib (Chronic) Prostate cancer (Chronic ~05/2019) Surgical History H/O heart artery stent (Acute ~2006) History of angioplasty (~12/2006) Hx of inguinal hernia surgery (Resolved ~09/20/08) Hx of inguinal hernia surgery (Resolved ~03/07/14) Status post laminectomy Social History marital status: unmarried,single number of children: 3 household members: none lives independently: Yes caregiver/support person: No housing: house pets and animals: No education level: high school (11th grade) occupational status: 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) Smoking Status: Never smoker Tobacco: How many years used: 56 (On and off.) Smokeless tobacco user: other (Marijuana) quit status: has quit before (On and off.) second hand exposure: Yes (On farm[place]/Boat.) alcohol intake: former substance use type: does not use and marijuana (On and off.) eating out: rarely or never Type(s) of exercise: normal ROM and activity and additional Smoking Status: Never smoker alcohol intake frequency: a few times a week Substance Use Type: marijuana Exam <ALEX Briggs - Last Filed: 07/08/20 20:16> Narrative Exam Narrative: GEN: Alert, oriented x 3, pale and ill appearing and thin appearing male appears to be in discomfort. Slow to respond verbal questions. Head: Normal cephalic, atraumatic. No scalp or temporal tenderness, palpable mass or rash. EYES: Pupils are equal, round, and reactive to light and accommodation. Extraocular muscles are intact bilaterally. There is no subconjunctival hemorrhage, exudate and sclera non-icteric. ENT: Hearing grossly intact. Mucous membrane dry, no mucosal lesion. Throat without erythema, tonsillar hypertrophy or exudate. Uvula in midline, airway patent. Neck: Trachea in midline. No JVD, non-tender without lymphadenopathy. No masses or thyroid megaly. Supple, non-tender and no meningeal signs. CARDIAC: Normal regular rate and rhythm without murmurs, gallops, or rubs. No chest wall tenderness. No peripheral edema, cyanosis or pallor. Capillary refill is less than 2 seconds. RESPIRATORY: Lungs are clear to auscultate bilaterally. No cough, wheezes, rales, or rhonchi. No stridor, respiratory distress, increase work of breathing, or accessary muscle used. ABD: Abdomen flat and non-distended. Focal tenderness to palpate in left lower quadrant. No guarding or rebound tenderness to palpate. Bowel sounds are normal in all 4 quadrants. There is no palpable masses or organomegaly. EXT: Full painless ROM of all extremities with no loss of sensation, strength, effusion or edema. SKIN: Warm, dry, pale color for patient. No erythema, lesions or rash over visible areas. BACK: Nontender without deformity or crepitance. No flank tenderness. NEUROLOGICAL: Alert and oriented to place, time and person. Sensation and motor function intact bilaterally. No facial droops, dysphasia. PSYCHIATRIC: Good judgement and reason, without hallucinations, abnormal affect or abnormal behaviors during the examination. Patient is not suicidal. Initial Vital Signs Initial Vital Signs: Vital Signs Pulse Rate 63 07/08/20 13:49 Pulse Oximetry 98 07/08/20 13:49 <Carlos Ledezma DO - Last Filed: 07/09/20 07:25> Initial Vital Signs Initial Vital Signs: Vital Signs Pulse Rate 63 07/08/20 13:49 Pulse Oximetry 98 07/08/20 13:49 Scores <ALEX Briggs - Last Filed: 07/08/20 20:16> GCS [place] coma scale eye opening: Spontaneous [place] coma scale verbal response: Orientated [place] coma scale motor response: Obey commands [place] coma scale total score: 15 qSOFA Altered Mental Status (GCS <15): No Respiratory rate greater than/equal to 22: No Systolic blood pressure less than or equal to 100: No qSOFA Total: 0 0-1 Not High Risk 1-3 High risk Course <ALEX Briggs - Last Filed: 07/08/20 20:16> Orders Ordered: Aspirin (Aspirin Chew) 81 mg PO DAILY [facility] Budesonide (Entocort Ec) 6 mg PO DAILY [facility] Cyclobenzaprine HCl (Flexeril) 5 mg PO TID PRN PRN Reason: Spasms Last Admin: 07/09/20 01:04 Dose: 5 mg Documented by: REGI Dextrose (D50w) 25 gm IV PRN PRN PRN Reason: Hypoglycemia Sodium Chloride (Normal Saline 0.9%) 1,000 mls @ 100 mls/hr IV CONT [facility] Last Admin: 07/08/20 22:36 Dose: 100 mls/hr Documented by: REGI Ciprofloxacin (Cipro) 400 mg in 200 mls @ 200 mls/hr IV Q12H [facility] Metronidazole (Flagyl) 500 mg in 100 mls @ 100 mls/hr IV Q8H [facility] Last Admin: 07/09/20 02:37 Dose: 100 mls/hr Documented by: REGI Insulin Aspart (Novolog Flexpen) 0 unit SUBCUT ACHS [facility]; Protocol Last Admin: 07/08/20 22:14 Dose: Not Given Documented by: REGI Lisinopril (Zestril) 10 mg PO DAILY [facility] Metoprolol Tartrate (Lopressor) 50 mg PO BID [facility] Last Admin: 07/08/20 22:37 Dose: 50 mg Documented by: REGI Morphine Sulfate (Morphine) 2 mg IV Q4HR PRN PRN Reason: Pain, Moderate (4-6) Last Admin: 07/09/20 07:05 Dose: 2 mg Documented by: Admin: 07/09/20 02:38 Dose: 2 mg Documented by: Admin: 07/08/20 22:35 Dose: 2 mg Documented by: REGI Naloxone HCl (Narcan) 0.2 mg IV Q2MIN PRN PRN Reason: Opiate Reversal Ondansetron HCl (Zofran) 4 mg IV Q8HR PRN PRN Reason: Nausea And Vomiting Oxycodone HCl (Percolone) 5 mg PO Q4H PRN PRN Reason: pain Last Admin: 07/09/20 05:16 Dose: 5 mg Documented by: Admin: 07/09/20 01:00 Dose: 5 mg Documented by: REGI Pantoprazole Sodium (Protonix) 40 mg PO BID [facility] Last Admin: 07/08/20 22:37 Dose: 40 mg Documented by: REGI Simvastatin (Zocor) 40 mg PO QPM [facility] Tamsulosin HCl (Flomax) 0.4 mg PO QPM [facility] Discontinued Medications Sodium Chloride (Normal Saline 0.9%) 1,000 mls @ 999 mls/hr IV BOLUS ONE Stop: 07/08/20 14:55 Last Infusion: 07/08/20 15:42 Dose: 0 mls/hr Documented by: Admin: 07/08/20 14:19 Dose: 999 mls/hr Documented by: CHUNG Metronidazole (Flagyl) 500 mg in 100 mls @ 100 mls/hr IV NOW ONE Stop: 07/08/20 18:13 Last Infusion: 07/08/20 19:59 Dose: 0 mls/hr Documented by: Admin: 07/08/20 18:44 Dose: 100 mls/hr Documented by: CHUNG Ciprofloxacin (Cipro) 400 mg in 200 mls @ 200 mls/hr IV Q12H [facility] Last Infusion: 07/08/20 18:41 Dose: 0 mls/hr Documented by: Admin: 07/08/20 17:29 Dose: 200 mls/hr Documented by: CHUNG Lactated Ringer's (Lactated Ringers) 1,000 mls @ 100 mls/hr IV CONT [facility] Last Infusion: 07/08/20 20:08 Dose: 0 mls/hr Documented by: Admin: 07/08/20 17:45 Dose: 100 mls/hr Documented by: CHRISTA Lisinopril (Zestril) 10 mg PO NOW ONE Stop: 07/08/20 14:02 Last Admin: 07/08/20 17:34 Dose: 10 mg Documented by: CHUNG Metoprolol Tartrate (Lopressor) 5 mg IV NOW ONE Stop: 07/08/20 14:00 Last Admin: 07/08/20 18:40 Dose: Not Given Documented by: CHUNG Metoprolol Tartrate (Lopressor) 5 mg IV Q5M [facility] Stop: 07/08/20 15:11 Last Admin: 07/08/20 18:43 Dose: Not Given Documented by: Admin: 07/08/20 18:41 Dose: Not Given Documented by: Admin: 07/08/20 15:27 Dose: 5 mg Documented by: CHUNG Metoprolol Tartrate (Lopressor) 50 mg PO NOW ONE Stop: 07/08/20 15:48 Last Admin: 07/08/20 16:11 Dose: 50 mg Documented by: CHUNG Morphine Sulfate (Morphine) 4 mg IV NOW ONE Stop: 07/08/20 14:48 Last Admin: 07/08/20 15:11 Dose: 4 mg Documented by: CHUNG Morphine Sulfate (Morphine) 4 mg IV NOW ONE Stop: 07/08/20 16:50 Last Admin: 07/08/20 17:15 Dose: 4 mg Documented by: CHUNG Nitroglycerin (Nitro-Bid) 1 inch TOP NOW ONE Stop: 07/08/20 14:18 Last Admin: 07/08/20 14:37 Dose: 1 inch Documented by: CHUNG Ondansetron HCl (Zofran) 4 mg IV NOW ONE Stop: 07/08/20 14:24 Last Admin: 07/08/20 15:27 Dose: 4 mg Documented by: CHUNG Pantoprazole Sodium (Protonix) 40 mg IV NOW ONE Stop: 07/08/20 13:55 Last Admin: 07/08/20 14:18 Dose: 40 mg Documented by: CHUNG Reevaluation(s) Reevaluation #1: Metoprolol 5 mg IV ordered but held due to patient's heart rate in 58 bpm. Patient reports ongoing nausea. Ordered additional Zofran IV 4 mg. changed patient's medication to lisinopril 10 mg a states he is unable to tolerate p.o. liquids or medications at this time. Time: 14:05 Reevaluation #2: Nitroglycerin paste ordered for significantly elevated blood pressure. Noted heart rate increased to mid 70s. IV metoprolol or 5 mg ordered as well. Time: 15:15 Reevaluation #3: Patient reports nausea and abdominal pain much improved after the medications. Waiting for CT test results. Ordered patient's hypertension medications lisinopril and metoprolol tartate when the patient could tolerate these. Time: 15:53 Additional Reevaluation(s): 1650-Patient reports recurring pain and rates as 7/10 and requesting more pain medication. Ordered Additional IV morphine 4mg. Patient reports nausea slightly improved but recurring with pain. He was able to tolerate his blood pressure medications at this time. #2 Lactate was drawn (1.6) after 2 L of IV fluid and pending for result, initial lactate is 2.0. 1920-patient informed pending admission and he appreciated the plan. Patient reports his relatively comfortable at this time. Consultations Consultation #1: Dr. Shilpa paged to consult on abd pain, n/v, CT abd result. Time: 17:30 Consultation #2: Dr. Massey in OR with critical patient at this time. Will wait for his phone call after the surgery to consult the patient. Time: 18:10 Consultation #3: Dr. Bhat (covering for Dr. Vasques) paged to request hospital admission overnight for pain and nausea management, hydration and IV antibiotic medication treatment. Time: 18:55 Additional Consultation(s): 1914-Dr. Bhat kindly accepted patient's care for IV hydration, pain and nausea management. Vital Signs Vital signs: Vital Signs - 8 hr 07/08/20 13:49 07/08/20 13:50 07/08/20 13:56 Temperature 99.1 F Pulse Rate 63 59 L 62 Respiratory Rate 18 Blood Pressure 222/107 H 218/106 H Pulse Oximetry 98 98 98 07/08/20 13:59 07/08/20 14:00 07/08/20 14:15 Temperature Pulse Rate 61 58 L 62 Respiratory Rate Blood Pressure 218/106 H 212/108 H Pulse Oximetry 98 98 97 07/08/20 14:30 07/08/20 14:37 07/08/20 14:45 Temperature Pulse Rate 61 68 78 Respiratory Rate 25 H Blood Pressure 217/119 H 217/119 H Pulse Oximetry 99 98 07/08/20 15:00 07/08/20 15:03 07/08/20 15:04 Temperature Pulse Rate 66 64 70 Respiratory Rate 24 10 L 19 Blood Pressure 203/113 H 207/117 H Pulse Oximetry 98 98 98 07/08/20 15:15 07/08/20 15:25 07/08/20 15:30 Temperature Pulse Rate 71 72 Respiratory Rate 9 L 8 L Blood Pressure 193/111 H 194/102 H Pulse Oximetry 98 98 97 07/08/20 15:45 07/08/20 16:00 07/08/20 16:10 Temperature Pulse Rate 84 75 64 Respiratory Rate 13 8 L 17 Blood Pressure 124/81 197/111 H Pulse Oximetry 97 96 98 07/08/20 16:15 07/08/20 16:30 07/08/20 16:45 Temperature Pulse Rate 56 L 62 61 Respiratory Rate 18 22 21 Blood Pressure 207/114 H Pulse Oximetry 97 97 98 07/08/20 17:00 07/08/20 17:15 07/08/20 17:21 Temperature 99.8 F H Pulse Rate 64 77 Respiratory Rate 20 32 H Blood Pressure 206/103 H Pulse Oximetry 97 96 07/08/20 17:30 07/08/20 17:34 07/08/20 17:45 Temperature Pulse Rate 73 78 75 Respiratory Rate 14 10 L Blood Pressure 136/87 136/78 Pulse Oximetry 97 95 07/08/20 18:00 07/08/20 18:15 07/08/20 18:30 Temperature Pulse Rate 72 72 74 Respiratory Rate 11 L 14 19 Blood Pressure 137/83 139/83 Pulse Oximetry 96 97 97 07/08/20 18:45 07/08/20 19:00 Temperature Pulse Rate 66 66 Respiratory Rate 10 L 12 Blood Pressure Pulse Oximetry 96 98 <Carlos Ledezma, - Last Filed: 07/09/20 07:25> Orders Ordered: Aspirin (Aspirin Chew) 81 mg PO DAILY [facility] Budesonide (Entocort Ec) 6 mg PO DAILY [facility] Cyclobenzaprine HCl (Flexeril) 5 mg PO TID PRN PRN Reason: Spasms Last Admin: 07/09/20 01:04 Dose: 5 mg Documented by: LVSALUD Dextrose (D50w) 25 gm IV PRN PRN PRN Reason: Hypoglycemia Sodium Chloride (Normal Saline 0.9%) 1,000 mls @ 100 mls/hr IV CONT [facility] Last Admin: 07/08/20 22:36 Dose: 100 mls/hr Documented by: LVAZQUE Ciprofloxacin (Cipro) 400 mg in 200 mls @ 200 mls/hr IV Q12H [facility] Metronidazole (Flagyl) 500 mg in 100 mls @ 100 mls/hr IV Q8H [facility] Last Admin: 07/09/20 02:37 Dose: 100 mls/hr Documented by: LVAZQUE Insulin Aspart (Novolog Flexpen) 0 unit SUBCUT ACHS [facility]; Protocol Last Admin: 07/08/20 22:14 Dose: Not Given Documented by: LVAZQUE Lisinopril (Zestril) 10 mg PO DAILY [facility] Metoprolol Tartrate (Lopressor) 50 mg PO BID [facility] Last Admin: 07/08/20 22:37 Dose: 50 mg Documented by: LVAZQUE Morphine Sulfate (Morphine) 2 mg IV Q4HR PRN PRN Reason: Pain, Moderate (4-6) Last Admin: 07/09/20 07:05 Dose: 2 mg Documented by: Admin: 07/09/20 02:38 Dose: 2 mg Documented by: Admin: 07/08/20 22:35 Dose: 2 mg Documented by: REGI Naloxone HCl (Narcan) 0.2 mg IV Q2MIN PRN PRN Reason: Opiate Reversal Ondansetron HCl (Zofran) 4 mg IV Q8HR PRN PRN Reason: Nausea And Vomiting Oxycodone HCl (Percolone) 5 mg PO Q4H PRN PRN Reason: pain Last Admin: 07/09/20 05:16 Dose: 5 mg Documented by: Admin: 07/09/20 01:00 Dose: 5 mg Documented by: REGI Pantoprazole Sodium (Protonix) 40 mg PO BID [facility] Last Admin: 07/08/20 22:37 Dose: 40 mg Documented by: REGI Simvastatin (Zocor) 40 mg PO QPM [facility] Tamsulosin HCl (Flomax) 0.4 mg PO QPM [facility] Discontinued Medications Sodium Chloride (Normal Saline 0.9%) 1,000 mls @ 999 mls/hr IV BOLUS ONE Stop: 07/08/20 14:55 Last Infusion: 07/08/20 15:42 Dose: 0 mls/hr Documented by: Admin: 07/08/20 14:19 Dose: 999 mls/hr Documented by: CHUNG Metronidazole (Flagyl) 500 mg in 100 mls @ 100 mls/hr IV NOW ONE Stop: 07/08/20 18:13 Last Infusion: 07/08/20 19:59 Dose: 0 mls/hr Documented by: Admin: 07/08/20 18:44 Dose: 100 mls/hr Documented by: CHUNG Ciprofloxacin (Cipro) 400 mg in 200 mls @ 200 mls/hr IV Q12H [facility] Last Infusion: 07/08/20 18:41 Dose: 0 mls/hr Documented by: Admin: 07/08/20 17:29 Dose: 200 mls/hr Documented by: CHUNG Lactated Ringer's (Lactated Ringers) 1,000 mls @ 100 mls/hr IV CONT [facility] Last Infusion: 07/08/20 20:08 Dose: 0 mls/hr Documented by: Admin: 07/08/20 17:45 Dose: 100 mls/hr Documented by: CHRISTA Lisinopril (Zestril) 10 mg PO NOW ONE Stop: 07/08/20 14:02 Last Admin: 07/08/20 17:34 Dose: 10 mg Documented by: CHUNG Metoprolol Tartrate (Lopressor) 5 mg IV NOW ONE Stop: 07/08/20 14:00 Last Admin: 07/08/20 18:40 Dose: Not Given Documented by: CHUNG Metoprolol Tartrate (Lopressor) 5 mg IV Q5M [facility] Stop: 07/08/20 15:11 Last Admin: 07/08/20 18:43 Dose: Not Given Documented by: Admin: 07/08/20 18:41 Dose: Not Given Documented by: Admin: 07/08/20 15:27 Dose: 5 mg Documented by: CHUNG Metoprolol Tartrate (Lopressor) 50 mg PO NOW ONE Stop: 07/08/20 15:48 Last Admin: 07/08/20 16:11 Dose: 50 mg Documented by: CHUNG Morphine Sulfate (Morphine) 4 mg IV NOW ONE Stop: 07/08/20 14:48 Last Admin: 07/08/20 15:11 Dose: 4 mg Documented by: CHUNG Morphine Sulfate (Morphine) 4 mg IV NOW ONE Stop: 07/08/20 16:50 Last Admin: 07/08/20 17:15 Dose: 4 mg Documented by: CHUNG Nitroglycerin (Nitro-Bid) 1 inch TOP NOW ONE Stop: 07/08/20 14:18 Last Admin: 07/08/20 14:37 Dose: 1 inch Documented by: CHUNG Ondansetron HCl (Zofran) 4 mg IV NOW ONE Stop: 07/08/20 14:24 Last Admin: 07/08/20 15:27 Dose: 4 mg Documented by: CHUNG Pantoprazole Sodium (Protonix) 40 mg IV NOW ONE Stop: 07/08/20 13:55 Last Admin: 07/08/20 14:18 Dose: 40 mg Documented by: CHUNG Vital Signs Vital signs: Vital Signs - 8 hr 07/08/20 13:49 07/08/20 13:50 07/08/20 13:56 Temperature 99.1 F Pulse Rate 63 59 L 62 Respiratory Rate 18 Blood Pressure 222/107 H 218/106 H Pulse Oximetry 98 98 98 07/08/20 13:59 07/08/20 14:00 07/08/20 14:15 Temperature Pulse Rate 61 58 L 62 Respiratory Rate Blood Pressure 218/106 H 212/108 H Pulse Oximetry 98 98 97 07/08/20 14:30 07/08/20 14:37 07/08/20 14:45 Temperature Pulse Rate 61 68 78 Respiratory Rate 25 H Blood Pressure 217/119 H 217/119 H Pulse Oximetry 99 98 07/08/20 15:00 07/08/20 15:03 07/08/20 15:04 Temperature Pulse Rate 66 64 70 Respiratory Rate 24 10 L 19 Blood Pressure 203/113 H 207/117 H Pulse Oximetry 98 98 98 07/08/20 15:15 07/08/20 15:25 07/08/20 15:30 Temperature Pulse Rate 71 72 Respiratory Rate 9 L 8 L Blood Pressure 193/111 H 194/102 H Pulse Oximetry 98 98 97 07/08/20 15:45 07/08/20 16:00 07/08/20 16:10 Temperature Pulse Rate 84 75 64 Respiratory Rate 13 8 L 17 Blood Pressure 124/81 197/111 H Pulse Oximetry 97 96 98 07/08/20 16:15 07/08/20 16:30 07/08/20 16:45 Temperature Pulse Rate 56 L 62 61 Respiratory Rate 18 22 21 Blood Pressure 207/114 H Pulse Oximetry 97 97 98 07/08/20 17:00 07/08/20 17:15 07/08/20 17:21 Temperature 99.8 F H Pulse Rate 64 77 Respiratory Rate 20 32 H Blood Pressure 206/103 H Pulse Oximetry 97 96 07/08/20 17:30 07/08/20 17:34 07/08/20 17:45 Temperature Pulse Rate 73 78 75 Respiratory Rate 14 10 L Blood Pressure 136/87 136/78 Pulse Oximetry 97 95 07/08/20 18:00 07/08/20 18:15 07/08/20 18:30 Temperature Pulse Rate 72 72 74 Respiratory Rate 11 L 14 19 Blood Pressure 137/83 139/83 Pulse Oximetry 96 97 97 07/08/20 18:45 07/08/20 19:00 Temperature Pulse Rate 66 66 Respiratory Rate 10 L 12 Blood Pressure Pulse Oximetry 96 98 MDM - Nausea/Vomiting/Diarrhea <Suhas TIMOTHY CooleyP - Last Filed: 07/08/20 20:16> Differential Diagnosis Differential diagnosis: Likely dehydration and other (Colitis, diverticulitis, sepsis, acute abdominal etiology, VA/STEMI) Medical Records Attestation: I reviewed the patient's medical records. Lab Data Attestation: I reviewed the patient's lab results. Result diagrams: 07/09/20 05:15 07/09/20 05:15 Labs: Lab Results 07/08/20 07/08/20 07/08/20 Range/Units 14:14 14:14 14:14 WBC 4.5 (4.5-11.0) X10^3/uL RBC 4.80 (4.5-5.9) X10^6/uL Hgb 15.6 (13.5-17.5) g/dL Hct 46.7 (41-53) % MCV 97.2 (80-100) fL MCH 32.5 (26-34) PG MCHC 33.5 (30-36) % RDW 13.1 (11.6-14.8) % Plt Count 96 L (150-400) X10^3/uL Neut % (Auto) 81.8 H (50-75) % Lymph % (Auto) 10.1 L (25-40) % Lanier % (Auto) 8.0 (3-14) % Eos % (Auto) 0.0 L (2-4) % Baso % (Auto) 0.1 (0-2) % Neut # (Auto) 3700 (0995-7363) /uL Lymph # (Auto) 500 L (2403-1364) /uL Lanier # (Auto) 400 (0-900) /uL Eos # (Auto) 0 (0-450) /uL Baso # (Auto) 0 (0-100) /uL PT 12.0 (10.1-12.7) SECONDS INR 1.0 (0.9-1.3) APTT 28 D (26.4-36.2) SECONDS Sodium 140 (137-145) mmol/L Potassium 3.9 (3.4-5.1) mmol/L Chloride 109 H (98-107) mmol/L Carbon Dioxide 26 (22-32) mmol/L BUN 21 H (9-20) mg/dL Creatinine 0.52 L (0.66-1.25) mg/dL Estimated GFR > 60.0 (>60) mL/min BUN/Creatinine Ratio 40.4 H (6-22) Glucose 222 H (80-110) mg/dL Lactate (0.7-2.1) mmol/L Calcium 9.0 (8.4-10.2) mg/dL Magnesium (1.6-2.3) mg/dL Total Bilirubin 0.9 (0.2-1.3) mg/dL AST 398 H (17-59) IU/L ALT 621 H (<50) IU/L Alkaline Phosphatase 113 (38-126) U/L Total Creatine Kinase (55-170) U/L CK-MB (CK-2) CK-MB (CK-2) Rel Index Troponin I (0.01-0.034) ng/mL Total Protein 7.6 (6.3-8.2) g/dL Albumin 4.1 (3.5-5.0) g/dL Globulin 3.5 (1.7-4.1) g/dL Albumin/Globulin Ratio 1.2 (1.0-2.8) Lipase 91 (23-300) U/L Urine RBC (0-5/HPF) Urine WBC (0-5/HPF) Ur Squamous Epith Cells (0-5/HPF) Urine Bacteria (None) Hyaline Casts (None) Ur Culture Indicated? COVID-19 PCR (Negative) 07/08/20 07/08/20 07/08/20 Range/Units 14:14 14:14 14:14 WBC (4.5-11.0) X10^3/uL RBC (4.5-5.9) X10^6/uL Hgb (13.5-17.5) g/dL Hct (41-53) % MCV (80-100) fL MCH (26-34) PG MCHC (30-36) % RDW (11.6-14.8) % Plt Count (150-400) X10^3/uL Neut % (Auto) (50-75) % Lymph % (Auto) (25-40) % Lanier % (Auto) (3-14) % Eos % (Auto) (2-4) % Baso % (Auto) (0-2) % Neut # (Auto) (3772-3060) /uL Lymph # (Auto) (8716-7189) /uL Lanier # (Auto) (0-900) /uL Eos # (Auto) (0-450) /uL Baso # (Auto) (0-100) /uL PT (10.1-12.7) SECONDS INR (0.9-1.3) APTT (26.4-36.2) SECONDS Sodium (137-145) mmol/L Potassium (3.4-5.1) mmol/L Chloride (98-107) mmol/L Carbon Dioxide (22-32) mmol/L BUN (9-20) mg/dL Creatinine (0.66-1.25) mg/dL Estimated GFR (>60) mL/min BUN/Creatinine Ratio (6-22) Glucose (80-110) mg/dL Lactate 2.0 (0.7-2.1) mmol/L Calcium (8.4-10.2) mg/dL Magnesium 1.6 (1.6-2.3) mg/dL Total Bilirubin (0.2-1.3) mg/dL AST (17-59) IU/L ALT (<50) IU/L Alkaline Phosphatase (38-126) U/L Total Creatine Kinase 25 L (55-170) U/L CK-MB (CK-2) TNP CK-MB (CK-2) Rel Index TNP Troponin I < 0.012 (0.01-0.034) ng/mL Total Protein (6.3-8.2) g/dL Albumin (3.5-5.0) g/dL Globulin (1.7-4.1) g/dL Albumin/Globulin Ratio (1.0-2.8) Lipase (23-300) U/L Urine RBC (0-5/HPF) Urine WBC (0-5/HPF) Ur Squamous Epith Cells (0-5/HPF) Urine Bacteria (None) Hyaline Casts (None) Ur Culture Indicated? COVID-19 PCR (Negative) 07/08/20 07/08/2020 Range/Units 15:35 16:30 18:14 WBC (4.5-11.0) X10^3/uL RBC (4.5-5.9) X10^6/uL Hgb (13.5-17.5) g/dL Hct (41-53) % MCV (80-100) fL MCH (26-34) PG MCHC (30-36) % RDW (11.6-14.8) % Plt Count (150-400) X10^3/uL Neut % (Auto) (50-75) % Lymph % (Auto) (25-40) % [place] % (Auto) (3-14) % Eos % (Auto) (2-4) % Baso % (Auto) (0-2) % Neut # (Auto) (7927-7482) /uL Lymph # (Auto) (2861-8703) /uL [place] # (Auto) (0-900) /uL Eos # (Auto) (0-450) /uL Baso # (Auto) (0-100) /uL PT (10.1-12.7) SECONDS INR (0.9-1.3) APTT (26.4-36.2) SECONDS Sodium (137-145) mmol/L Potassium (3.4-5.1) mmol/L Chloride (98-107) mmol/L Carbon Dioxide (22-32) mmol/L BUN (9-20) mg/dL Creatinine (0.66-1.25) mg/dL Estimated GFR (>60) mL/min BUN/Creatinine Ratio (6-22) Glucose (80-110) mg/dL Lactate 1.6 (0.7-2.1) mmol/L Calcium (8.4-10.2) mg/dL Magnesium (1.6-2.3) mg/dL Total Bilirubin (0.2-1.3) mg/dL AST (17-59) IU/L ALT (<50) IU/L Alkaline Phosphatase (38-126) U/L Total Creatine Kinase (55-170) U/L CK-MB (CK-2) CK-MB (CK-2) Rel Index Troponin I (0.01-0.034) ng/mL Total Protein (6.3-8.2) g/dL Albumin (3.5-5.0) g/dL Globulin (1.7-4.1) g/dL Albumin/Globulin Ratio (1.0-2.8) Lipase (23-300) U/L Urine RBC 1-5/hpf (0-5/HPF) Urine WBC None seen (0-5/HPF) Ur Squamous Epith Cells 0-1 /hpf (0-5/HPF) Urine Bacteria None seen (None) Hyaline Casts 0-1/lpf (None) Ur Culture Indicated? Cult not indicated COVID-19 PCR Negative (Negative) Urine Dip Bedside Urine Glucose Negative Bedside Urine Bilirubin - Negative Bedside Urine Ketone ++ 40 Urine Specific [place] 1.030 Bedside Urine Occult Blood - Negative Bedside Urine pH 6.0 Bedside Urine Protein - Negative Bedside Urine Urobilinogen - Negative Bedside Urine Nitrite - Negative Bedside Urine Leukocytes - Negative Esterase Imaging Data CT scan - abdomen/pelvis: Radiologist's Impression: [address] [address] [address] Scan Report Signed Patient: Brennan Marmolejo CMR#: [id number] : 6Acct:[id number] Age/Sex: 64 / MDate of Service: 07/08/20 Loc: ED Accession Number: [id number] Procedure: CT abdomen pelvis w con Ordering Provider: Suhas Cooley PROCEDURE: CT ABDOMEN PELVIS W CON INDICATIONS: LLQ pain, n/v, hx diverticulitis, abd surgeries, TECHNIQUE: After the administration of intravenous contrast, 5 mm thick sections acquired from the diaphragm to the symphysis. 5 mm coronal and sagittal reformats were acquired. For radiation dose reduction, the following was used: automated exposure control, adjustment of mA and/or kV according to patient size. COMPARISON: [facility], CT, CT ABDOMEN PELVIS W CON, 11/06/2019, 12:21. FINDINGS: Image quality: Excellent. ABDOMEN: Lung bases: Lung bases are clear. Heart size is normal. Solid organs: Liver is normal in size and enhancement. Hepatic contour is nodular, indicating cirrhosis. Gallbladder is within normal limits . Biliary system is non dilated. Pancreas enhances normally. Spleen is normal in size and enhancement. No adrenal nodules. Mild multifocal scarring within the right interpolar and inferior pole kidney. Kidneys demonstrate otherwise normal size and enhancement, without hydronephrosis. Peritoneum and bowel: Limited evaluation of the bowel secondary to lack of oral contrast. There is thickening versus suboptimal distension of the descending colon. Diverticulosis of the descending and sigmoid colon is present. No pericolonic fat stranding or abscess. Bowel loops demonstrate otherwise normal wall thickness and caliber. No free fluid or air. Nodes and vessels: No retroperitoneal or mesenteric adenopathy by size criteria. Aorta and inferior vena cava are normal in size. Miscellaneous: No ventral hernias. PELVIS: Genitourinary: Bladder wall thickness is normal. Enhancement within the right aspect of the prostate is present, as before. Miscellaneous: No inguinal hernias or adenopathy. Bones: No suspicious bony lesions. No vertebral body compression fractures. IMPRESSION: 1. Limited evaluation of the bowel secondary to lack of oral contrast. There is diverticulosis, as well as thickening of the descending and sigmoid colon, which could indicate ischemia, infection, inflammation, or suboptimal distension. Colonoscopy may be helpful to exclude underlying malignancy. 2. Cirrhosis. 3. No change in possible prostate enhancement. Recommend correlation with PSA values. Dictated by: Ollie Marrero M.D. on 07/08/2020 at 15:50 Approved by: Ollie Marrero M.D. on 07/08/2020 at 15:54 ECG Data Attestation: I personally reviewed and interpreted this ECG as follows: Prior ECG tracings: available for review Interpretation: Sinus bradycardia rate at 58 Normal [place]. AL interval 150, QRS duration 74, QT/QTC 480/471. No Acute ST changes. Q wave in V3 and similar to previous EKG tracing. [facility] Narrative Medical decision making narrative: This is a 64 year male who has comprehensive medical history presents to ED with left lower quadrant pain with nausea, vomiting, diarrhea with signs of dehydration. Patient was not able to tolerate his morning medications due to excessive nausea and vomiting. Patient was significantly hypertensive when he arrived and partial ED stay. No leukocytosis but elevated neutrophils to 81.8%. Platelet counts of 96. Normal coag test. Slightly elevated chloride of 109. Lab test is consistent with dehydration of elevated BUN of 21, BUN/creatinine ratio of 40.4 and hyperglycemia of 222. Initial lactate was 2.0 and after 2 L of normal saline infusion lactate improved to 1.6. Elevated liver function test of AST 398, ALT 621, and total bilirubin of 0.9. Normal albumin and lipase. Troponin was negative. Several times patient was reassessed but had difficult time managing pain and nausea. It is unlikely patient would tolerate p.o. medications for nausea, pain, or antibiotic medications. Patient started on IV Cipro and Flagyl given CT abdomen and pelvis indicates diverticulosis of the descending and sigmoid colon with thickening of the descending and sigmoid colon which could indicate ischemia, infection, inflammation or suboptimal distension. CT also shows cirrhosis. Patient was able to void small amount dark-colored urine us few times after the IV fluid therapy. No indications for infection in urine but ++ Ketones seen. Covid test was negative. Hypertension urgency has been treated with Nitroglycerin paste due to bradycardia initially. Given metoprolol 5 mg IV when heart rate improved to mid 70s. Patient was able to tolerate metoprolol or and lisinopril as his daily regimen with very few sips of water. When patient has pain was managed, blood pressure improved to normotensive. Nitroglycerin paste has been removed then. Dr. Bhat kindly accepted the patient's care overnight for IV hydration, pain and nausea management and lab trending. <Carlos Ledezma, DO - Last Filed: 07/09/20 07:25> Lab Data Labs: Lab Results 07/08/20 07/08/20 07/08/20 Range/Units 14:14 14:14 14:14 WBC 4.5 (4.5-11.0) X10^3/uL RBC 4.80 (4.5-5.9) X10^6/uL Hgb 15.6 (13.5-17.5) g/dL Hct 46.7 (41-53) % MCV 97.2 (80-100) fL MCH 32.5 (26-34) PG MCHC 33.5 (30-36) % RDW 13.1 (11.6-14.8) % Plt Count 96 L (150-400) X10^3/uL Neut % (Auto) 81.8 H (50-75) % Lymph % (Auto) 10.1 L (25-40) % [place] % (Auto) 8.0 (3-14) % Eos % (Auto) 0.0 L (2-4) % Baso % (Auto) 0.1 (0-2) % Neut # (Auto) 3700 (6999-2329) /uL Lymph # (Auto) 500 L (0172-3290) /uL [place] # (Auto) 400 (0-900) /uL Eos # (Auto) 0 (0-450) /uL Baso # (Auto) 0 (0-100) /uL PT 12.0 (10.1-12.7) SECONDS INR 1.0 (0.9-1.3) APTT 28 D (26.4-36.2) SECONDS Sodium 140 (137-145) mmol/L Potassium 3.9 (3.4-5.1) mmol/L Chloride 109 H (98-107) mmol/L Carbon Dioxide 26 (22-32) mmol/L BUN 21 H (9-20) mg/dL Creatinine 0.52 L (0.66-1.25) mg/dL Estimated GFR > 60.0 (>60) mL/min BUN/Creatinine Ratio 40.4 H (6-22) Glucose 222 H (80-110) mg/dL Lactate (0.7-2.1) mmol/L Calcium 9.0 (8.4-10.2) mg/dL Magnesium (1.6-2.3) mg/dL Total Bilirubin 0.9 (0.2-1.3) mg/dL AST 398 H (17-59) IU/L ALT 621 H (<50) IU/L Alkaline Phosphatase 113 (38-126) U/L Total Creatine Kinase (55-170) U/L CK-MB (CK-2) CK-MB (CK-2) Rel Index Troponin I (0.01-0.034) ng/mL Total Protein 7.6 (6.3-8.2) g/dL Albumin 4.1 (3.5-5.0) g/dL Globulin 3.5 (1.7-4.1) g/dL Albumin/Globulin Ratio 1.2 (1.0-2.8) Lipase 91 (23-300) U/L Urine RBC (0-5/HPF) Urine WBC (0-5/HPF) Ur Squamous Epith Cells (0-5/HPF) Urine Bacteria (None) Hyaline Casts (None) Ur Culture Indicated? COVID-19 PCR (Negative) 07/08/20 07/08/20 07/08/20 Range/Units 14:14 14:14 14:14 WBC (4.5-11.0) X10^3/uL RBC (4.5-5.9) X10^6/uL Hgb (13.5-17.5) g/dL Hct (41-53) % MCV (80-100) fL MCH (26-34) PG MCHC (30-36) % RDW (11.6-14.8) % Plt Count (150-400) X10^3/uL Neut % (Auto) (50-75) % Lymph % (Auto) (25-40) % [place] % (Auto) (3-14) % Eos % (Auto) (2-4) % Baso % (Auto) (0-2) % Neut # (Auto) (0732-9710) /uL Lymph # (Auto) (8082-5849) /uL [place] # (Auto) (0-900) /uL Eos # (Auto) (0-450) /uL Baso # (Auto) (0-100) /uL PT (10.1-12.7) SECONDS INR (0.9-1.3) APTT (26.4-36.2) SECONDS Sodium (137-145) mmol/L Potassium (3.4-5.1) mmol/L Chloride (98-107) mmol/L Carbon Dioxide (22-32) mmol/L BUN (9-20) mg/dL Creatinine (0.66-1.25) mg/dL Estimated GFR (>60) mL/min BUN/Creatinine Ratio (6-22) Glucose (80-110) mg/dL Lactate 2.0 (0.7-2.1) mmol/L Calcium (8.4-10.2) mg/dL Magnesium 1.6 (1.6-2.3) mg/dL Total Bilirubin (0.2-1.3) mg/dL AST (17-59) IU/L ALT (<50) IU/L Alkaline Phosphatase (38-126) U/L Total Creatine Kinase 25 L (55-170) U/L CK-MB (CK-2) TNP CK-MB (CK-2) Rel Index TNP Troponin I < 0.012 (0.01-0.034) ng/mL Total Protein (6.3-8.2) g/dL Albumin (3.5-5.0) g/dL Globulin (1.7-4.1) g/dL Albumin/Globulin Ratio (1.0-2.8) Lipase (23-300) U/L Urine RBC (0-5/HPF) Urine WBC (0-5/HPF) Ur Squamous Epith Cells (0-5/HPF) Urine Bacteria (None) Hyaline Casts (None) Ur Culture Indicated? COVID-19 PCR (Negative) 07/08/20 07/08/20 07/08/20 Range/Units 15:35 16:30 18:14 WBC (4.5-11.0) X10^3/uL RBC (4.5-5.9) X10^6/uL Hgb (13.5-17.5) g/dL Hct (41-53) % MCV (80-100) fL MCH (26-34) PG MCHC (30-36) % RDW (11.6-14.8) % Plt Count (150-400) X10^3/uL Neut % (Auto) (50-75) % Lymph % (Auto) (25-40) % [place] % (Auto) (3-14) % Eos % (Auto) (2-4) % Baso % (Auto) (0-2) % Neut # (Auto) (9843-6284) /uL Lymph # (Auto) (8698-6801) /uL [place] # (Auto) (0-900) /uL Eos # (Auto) (0-450) /uL Baso # (Auto) (0-100) /uL PT (10.1-12.7) SECONDS INR (0.9-1.3) APTT (26.4-36.2) SECONDS Sodium (137-145) mmol/L Potassium (3.4-5.1) mmol/L Chloride (98-107) mmol/L Carbon Dioxide (22-32) mmol/L BUN (9-20) mg/dL Creatinine (0.66-1.25) mg/dL Estimated GFR (>60) mL/min BUN/Creatinine Ratio (6-22) Glucose (80-110) mg/dL Lactate 1.6 (0.7-2.1) mmol/L Calcium (8.4-10.2) mg/dL Magnesium (1.6-2.3) mg/dL Total Bilirubin (0.2-1.3) mg/dL AST (17-59) IU/L ALT (<50) IU/L Alkaline Phosphatase (38-126) U/L Total Creatine Kinase (55-170) U/L CK-MB (CK-2) CK-MB (CK-2) Rel Index Troponin I (0.01-0.034) ng/mL Total Protein (6.3-8.2) g/dL Albumin (3.5-5.0) g/dL Globulin (1.7-4.1) g/dL Albumin/Globulin Ratio (1.0-2.8) Lipase (23-300) U/L Urine RBC 1-5/hpf (0-5/HPF) Urine WBC None seen (0-5/HPF) Ur Squamous Epith Cells 0-1 /hpf (0-5/HPF) Urine Bacteria None seen (None) Hyaline Casts 0-1/lpf (None) Ur Culture Indicated? Cult not indicated COVID-19 PCR Negative (Negative) Urine Dip Bedside Urine Glucose Negative Bedside Urine Bilirubin - Negative Bedside Urine Ketone ++ 40 Urine Specific [place] 1.030 Bedside Urine Occult Blood - Negative Bedside Urine pH 6.0 Bedside Urine Protein - Negative Bedside Urine Urobilinogen - Negative Bedside Urine Nitrite - Negative Bedside Urine Leukocytes - Negative Esterase Discharge Plan Departure Patient Disposition: Admitted as Observation Clinical Impression: Colitis Abdominal pain Qualifiers: Abdominal location: left lower quadrant Qualified Code(s): R10.32 - Left lower quadrant pain Nausea & vomiting Qualifiers: Vomiting type: bilious vomiting Qualified Code(s): R11.14 - Bilious vomiting Discharge Date/Time: 07/08/20 20:10 Referrals: Khang Vasques MD [Primary Care Provider] - Admit Date/Time: 07/08/20 19:15 Admit Provider: Theresa Bhat <Carlos Ledezma DO - Last Filed: 07/09/20 07:25> Cosign ED Attending Cosignature Attestation: I was immediately available in the department for consultation. This documentation has been reviewed and I agree with assessment and plan. Supervised by Carlos Ledemza DO
[2020-07-08 14:50] LABS: Troponin I < 0.012 ng/mL (0.01-0.034)
--- NOTE | 2020-07-08 15:06 | PC.NURSE ---
Nitro patch placed, hypertension remains. HR upper 60s. Provider aware.
[2020-07-08] MEDS: MORPHINE 4 MG/ML INJ IV ×2 (15:11→17:15)
[2020-07-08 15:13] LABS: Magnesium 1.6 mg/dL (1.6-2.3)
[2020-07-08] MEDS: METOPROLOL TARTRATE 5 MG/5 ML INJ IV (15:27)
[2020-07-08] MEDS: ONDANSETRON 4 MG/2 ML INJ IV (15:27)
--- NOTE | 2020-07-08 15:28 | PC.NURSE ---
193/111 BP, 76HR prior to lopressor IV
[2020-07-08] MEDS: METOPROLOL IR 25 MG TABLET 50 MG PO (16:11)
[2020-07-08 17:07] LABS: Bacteria Urine None Seen; WBC Urine None Seen (0-5/HPF)
[2020-07-08 17:24] LABS: Lactate (Lactic Acid) 1.6 mmol/L (0.7-2.1)
[2020-07-08] MEDS: CIPROFLOXACIN 400 MG/200 ML PIGGYBACK 200 MG IV (17:29)
[2020-07-08] MEDS: lisinopriL 10 MG TABLET PO (17:34)
[2020-07-08 17:36] LABS: Culture Indicated Urine Cult Not Indicated; Hyaline Casts Urine 0-1/LPF; RBC Urine 1-5/HPF (0-5/HPF); Squamous Epithelial Cell Urine 0-1 /HPF (0-5/HPF)
[2020-07-08] MEDS: LACTATED RINGERS 1,000 ML 100 ML IV (17:45)
--- NOTE | 2020-07-08 17:51 | PC.NURSE ---
Pt continues to be nauseas and has increased abd pain w/ any po intake. Appears pale and fatigued.
[2020-07-08 18:37] LABS: COVID19 -Nasal RAPID Negative (Negative)
[2020-07-08] MEDS: metroNIDAZOLE 500 MG/100 ML PIGGYBACK 100 MG IV (18:44)
--- NOTE | 2020-07-08 19:12 | PC.NURSE ---
Nitro paste removed from chest. Pressures remain 130s over 80s
--- NOTE | 2020-07-08 19:50 | PC.NURSE ---
pt's partner Lisandra [phone]
[2020-07-08] MEDS: MORPHINE 2 MG/ML INJ IV (22:35)
[2020-07-08] MEDS: SODIUM CHLORIDE 0.9% 1,000 ML 100 ML IV (22:36)
[2020-07-08] MEDS: PANTOPRAZOLE 40 MG TABLET PO (22:37)
[2020-07-08] MEDS: METOPROLOL IR 50 MG TABLET PO (22:37)
[2020-07-09] VITALS (10 sets, daily range): BP systolic 123–162; BP diastolic 72–92; PULSE 52–63; RESP 15–18; TEMP 36.7–37.2; O2SAT 95–99
[2020-07-09] MEDS: OXYCODONE IR 5 MG TABLET PO ×3 (01:00→21:05)
[2020-07-09] MEDS: CYCLOBENZAPRINE 5 MG TABLET PO (01:04)
[2020-07-09] MEDS: metroNIDAZOLE 500 MG/100 ML PIGGYBACK 100 MG IV (02:37)
[2020-07-09] MEDS: MORPHINE 2 MG/ML INJ IV ×2 (02:38→07:05)
[2020-07-09 05:44] LABS: Add Manual Diff / Slide Review NO; Basophils Absolute Auto 0 /uL (0-100); Basophils Percent Auto 0.5 % (0-2); Eosinophils Absolute Auto 0 /uL (0-450); Eosinophils Percent Auto 0.5 % (2-4); Hemoglobin 14.1 g/dL (13.5-17.5); Lymphocytes Absolute Auto 1500 /uL (1100-4500); Lymphocytes Percent Auto 25.6 % (25-40); Mean Corpuscular HGB Conc 33.5 % (30-36); Mean Corpuscular Hemoglobin 32.5 PG (26-34); Mean Corpuscular Volume 97.1 fL (80-100); Monocytes Absolute Auto 800 /uL (0-900); Monocytes Percent Auto 14.4 % (3-14); Neutrophils Absolute Auto 3500 /uL (1500-7000); Platelet Count 98 X10^3/uL (150-400); Red Blood Cell Count 4.33 X10^6/uL (4.5-5.9); Red Cell Distribution Width 13.1 % (11.6-14.8); White Blood Cell Count 5.9 X10^3/uL (4.5-11.0)
[2020-07-09 05:51] LABS: Alanine Aminotransferase 427 IU/L (<50); Albumin 3.1 g/dL (3.5-5.0); Alkaline Phosphatase 71 U/L (38-126); Aspartate Aminotransferase 212 IU/L (17-59); BUN Creatinine Ratio 29.3 (6-22); Bilirubin Total 0.8 mg/dL (0.2-1.3); Blood Urea Nitrogen 17 mg/dL (9-20); Calcium 8.2 mg/dL (8.4-10.2); Carbon Dioxide 30 mmol/L (22-32); Chloride 107 mmol/L (98-107); Estimated Glomerular Filt Rate > 60.0 mL/min (>60); Globulin 3.1 g/dL (1.7-4.1); Glucose 109 mg/dL (80-110); HEMOLYSIS < 15 (0-50); Potassium 3.8 mmol/L (3.4-5.1); Sodium 138 mmol/L (137-145); Total Protein 6.2 g/dL (6.3-8.2)
--- NOTE | 2020-07-09 07:51 | P.HP_ITS ---
History of Present Illness History of Present Illness Date Patient Seen: 07/09/20 Time Patient Seen: 07:51 Chief complaint: N/V/D, Abd pain Narrative: 64-year-old male longstanding history of intermittent abdominal pain with nausea and vomiting (times more than 2 years) presented to the [facility] Emergency Department on July 08 because of persistent nausea and vomiting and some left lower quadrant pain and discomfort. Also had some soft bowel movements without actual diarrhea. His emesis was more mild like no blood or dark material. Patient reports symptoms started within a couple of days of presentation Past history includes multiple episodes of this same sort of syndrome. Been fully evaluated by a Gastroenterology over the last several months and actually since the of the year is been minimally symptomatic. Previously had upper and lower endoscopy and multiple CT scans. CT scans intermittently show evidence of sigmoid left colonic thickening consistent with a colitis but biopsies performed in this exact area in August 2019 were unremarkable. GI has failed to come up with a good explanation for patient's symptoms other th an the possibility of a cannabinoid hyperemesis syndrome. Patient's medical history is otherwise complicated of course by as yet untreated advanced prostate cancer, currently being monitored by [facility], diabetes type 2, coronary artery disease and intermittent paroxysmal atrial fibrillation (for which he is not anticoagulated) Patient was also quite hypertensive upon presentation although that was treated effectively with topical nitrates and metoprolol IV. Admission Patient was also started on IV antibiotics for possible diverticulitis and or infectious colitis given appearance on CT imaging (although this is been seen off and on multiple times, and current appearance based on radiology's description is certainly not classic for an infectious colitis or divertic ulitis) Patient History Medical History (Updated 07/09/20 @ 08:13 by Khang Vasques MD) Cannabis abuse (Chronic) Chronic hepatitis (Chronic) Coronary artery disease involving [employer] coronary artery of [place] heart without angina pectoris (Chronic ~2006) Diabetes type 2, controlled (Chronic) Diabetes type 2, uncontrolled (Chronic) Diabetic peripheral neuropathy (Chronic) Diverticular disease (Chronic) Diverticulosis of large intestine (Chronic 03/31/12) Essential hypertension (Chronic) Hepatitis C (Chronic) Kidney stones (Resolved) Mixed hyperlipidemia (Chronic) Paroxysmal A-fib (Chronic) Prostate cancer (Chronic ~05/2019) Surgical History H/O heart artery stent (Acute ~2006) History of angioplasty (~12/2006) Hx of inguinal hernia surgery (Resolved ~09/20/08) Hx of inguinal hernia surgery (Resolved ~03/07/14) Status post laminectomy Family & Social History Social History: household members none Prior Living Arrangements House lives independently Yes caregiver/support person No Safety & Behavioral: Feels Safe in Current Yes Environment Been Physically Hurt or No Threatened By a Person Suicidal Ideation Description None Suicide Plan Description No Plan Tobacco & Substance use: Smoking Status Never smoker alcohol intake former alcohol intake frequency a few times a week Substance Use Type marijuana Meds Home Medications and Allergies Home Medications Medication Instructions Recorded Confirmed Type cyclobenzaprine 5 mg tablet 5 mg PO TID PRN tab 03/20/19 07/08/20 History ondansetron 4 mg disintegrating 4 mg PO Q6H PRN #30 tab 06/19/19 07/08/20 Rx tablet tamsulosin 0.4 mg PO QPM 08/15/19 07/08/20 History aspirin 81 mg PO QAM 11/06/19 07/08/20 History lisinopril 10 mg PO QAM 11/06/19 07/08/20 History simvastatin 40 mg tablet 40 mg PO QPM #90 tab 11/19/19 07/08/20 Rx omeprazole 40 mg capsule,delayed 40 mg PO BID #180 cap 11/27/19 07/08/20 Rx release budesonide 3 mg 6 mg PO QAM #180 each 12/04/19 07/08/20 Rx capsule,delayed,extended release metoprolol tartrate 50 mg tablet 50 mg PO BID tab 03/04/20 07/08/20 History blood sugar diagnostic #100 each 05/13/20 07/08/20 Rx blood-glucose meter #1 each 05/13/20 07/08/20 Rx lancets 30 gauge #100 each 05/13/20 07/08/20 Rx metformin 500 mg tablet 500 mg PO BID #180 tab 05/26/20 07/08/20 Rx oxycodone 5 - 10 mg PO Q4H PRN #360 tab 07/10/20 Rx Allergies Allergy/AdvReac Type Severity Reaction Status Date / Time No Known Drug Allergies Allergy Verified 07/08/20 15:23 Review of Systems Constitutional Constitutional: Denies excessive sweating, Denies fever(s), Denies headache(s), Reports weakness and Denies weight loss Eyes Eyes: Denies change in vision, Denies itchy eyes, Denies loss of vision and Denies other visual disturbances ENT Ears, Nose, Mouth, and Throat: No change in voice, No dysphagia, No dizziness, No otalgia, No headache(s), No hoarseness, No lip swelling, No neck pain, No odynophagia, No sore throat, No throat swelling and No tongue swelling Cardiovascular Cardiovascular: Denies chest pain, Denies syncope, Denies rapid heart rate, Denies irregular heart rhythm, Denies palpitations, Denies dyspnea, Denies dyspnea on exertion and Denies slow heart rate Respiratory Respiratory: Denies chest congestion, Denies cough, Denies hemoptysis, Denies dyspnea, Denies dyspnea on exertion, Denies stridor and Denies wheezing Gastrointestinal Gastrointestinal: Denies belching, Denies melena, Denies bloating, Denies hematochezia, Denies dysphagia, Denies excessive flatus, Denies early satiety, Denies heartburn, Denies loose stools, Denies odynophagia and Denies hematemesis Genitourinary Genitourinary: Denies hematuria, Denies difficulty urinating and Denies urinary frequency Musculoskeletal Musculoskeletal: Denies abnormal gait, Denies myalgias, Denies arthralgias, Den ies limited range of motion and Denies neck pain Integumentary/Breasts Skin/Breast: Denies bleeding lesions, Denies change in pigmentation, Denies changing lesions, Denies new lesions, Denies rash, Denies skin swelling, Denies sores and Denies jaundice Neurologic Neurologic: Denies abnormal speech, Denies abnormal gait, Denies behavioral changes, Denies confusion, Denies dizziness, Denies syncope, Denies headache(s), Denies loss of vision, Denies memory loss, Denies seizure-like activity, Denies paresthesias and Reports weakness Psychiatric Psychiatric: Denies behavioral changes, Denies change in appetite, Denies confusion, Denies difficulty concentrating, Denies auditory hallucinations, Denies memory loss, Denies mood swings and Denies suicidal ideation Endocrine Endocrine: Denies excessive sweating, Denies flushing, Denies polyuria and Denies palpitations Hematologic/Lymphatic Hematologic/Lymphatic: Denies easy bleeding, Denies easy bruising and Denies lymphadenopathy Allergic/Immunologic Allergic/Immunologic: Denies urticaria, Denies itchy eyes, Denies lip swelling, Denies throat swelling, Denies tongue swelling and Denies wheezing Exam Vital Signs (past 8 hours): - 07/08/20 23:56 07/09/20 03:00 07/09/20 05:01 Temperature 99.7 F H 98.5 F Pulse Rate 54 L 57 L Respiratory Rate 18 16 Blood Pressure 135/85 150/87 H Pulse Oximetry 98 98 99 Oxygen Delivery Method Room Air Oxygen Flow Rate 0 Narrative Exam Narrative: Chronically ill-appearing middle-aged male who appears much older than his stated age HEENT-unremarkable, normocephalic atraumatic, PERRLA, EOMs intact Neck-no bruits Lungs-good breath sounds no wheezes no crackles bilaterally Heart-regular rate rhythm no murmur Abdomen-positive bowel tones nontender no rebound or guarding no organomegaly noted. Patient seems uncomfortable when palpating the abdomen but no clear tenderness Extremities-no cyanosis clubbing or edema Neuro-alert orient x3 no cranial nerve defects, gait not tested, no other focal findings present on screening exam Objective Imaging CT scan - abdomen: Radiologist's impression: Jul 08, 2020 PROCEDURE: CT ABDOMEN PELVIS W CON INDICATIONS: LLQ pain, n/v, hx diverticulitis, abd surgeries, TECHNIQUE: After the administration of intravenous contrast, 5 mm thick sections acquired from the diaphragm to the symphysis. 5 mm coronal and sagittal reformats were acquired. For radiation dose reduction, the following was used: automated exposure control, adjustment of mA and/or kV according to patient size. COMPARISON: [facility], CT, CT ABDOMEN PELVIS W CON, 11/06/2019, 12:21. FINDINGS: Image quality: Excellent. ABDOMEN: Lung bases: Lung bases are clear. Heart size is normal. Solid organs: Liver is normal in size and enhancement. Hepatic contour is nodular, indicating cirrhosis. Gallbladder is within normal limits . Biliary system is non dilated. Pancreas enhances normally. Spleen is normal in size and enhancement. No adrenal nodules. Mild multifocal scarring within the right interpolar and inferior pole kidney. Kidneys demonstrate otherwise normal size and enhancement, without hydronephrosis. Peritoneum and bowel: Limited evaluation of the bowel secondary to lack of oral contrast. There is thickening versus suboptimal distension of the descending colon. Diverticulosis of the descending and sigmoid colon is present. No pericolonic fat stranding or abscess. Bowel loops demonstrate otherwise normal wall thickness and caliber. No free fluid or air. Nodes and vessels: No retroperitoneal or mesenteric adenopathy by size criteria. Aorta and inferior vena cava are normal in size. Miscellaneous: No ventral hernias. PELVIS: Genitourinary: Bladder wall thickness is normal. Enhancement within the right aspect of the prostate is present, as before. Miscellaneous: No inguinal hernias or adenopathy. Bones: No suspicious bony lesions. No vertebral body compression fractures. IMPRESSION: 1. Limited evaluation of the bowel secondary to lack of oral contrast. There is diverticulosis, as well as thickening of the descending and sigmoid colon, which could indicate ischemia, infection, inflammation, or suboptimal distension. Colonoscopy may be helpful to exclude underlying malignancy. 2. Cirrhosis. 3. No change in possible prostate enhancement. Recommend correlation with PSA values. Labs Result Diagrams: 07/10/20 05:10 07/10/20 05:10 Labs: Laboratory Results - last 24 hr 07/08/20 07/08/20 07/08/20 14:14 14:14 14:14 WBC 4.5 RBC 4.80 Hgb 15.6 Hct 46.7 MCV 97.2 MCH 32.5 MCHC 33.5 RDW 13.1 Plt Count 96 L Neut % (Auto) 81.8 H Lymph % (Auto) 10.1 L King % (Auto) 8.0 Eos % (Auto) 0.0 L Baso % (Auto) 0.1 Neut # (Auto) 3700 Lymph # (Auto) 500 L King # (Auto) 400 Eos # (Auto) 0 Baso # (Auto) 0 PT 12.0 INR 1.0 APTT 28 D Sodium 140 Potassium 3.9 Chloride 109 H Carbon Dioxide 26 BUN 21 H Creatinine 0.52 L Estimated GFR > 60.0 BUN/Creatinine Ratio 40.4 H Glucose 222 H Lactate Calcium 9.0 Magnesium Total Bilirubin 0.9 AST 398 H ALT 621 H Alkaline Phosphatase 113 Total Creatine Kinase CK-MB (CK-2) CK-MB (CK-2) Rel Index Troponin I Total Protein 7.6 Albumin 4.1 Globulin 3.5 Albumin/Globulin Ratio 1.2 Lipase 91 Urine RBC Urine WBC Ur Squamous Epith Cells Urine Bacteria Hyaline Casts Ur Culture Indicated? COVID-19 PCR 07/08/20 07/08/20 07/08/20 14:14 14:14 14:14 WBC RBC Hgb Hct MCV MCH MCHC RDW Plt Count Neut % (Auto) Lymph % (Auto) King % (Auto) Eos % (Auto) Baso % (Auto) Neut # (Auto) Lymph # (Auto) King # (Auto) Eos # (Auto) Baso # (Auto) PT INR APTT Sodium Potassium Chloride Carbon Dioxide BUN Creatinine Estimated GFR BUN/Creatinine Ratio Glucose Lactate 2.0 Calcium Magnesium 1.6 Total Bilirubin AST ALT Alkaline Phosphatase Total Creatine Kinase 25 L CK-MB (CK-2) TNP CK-MB (CK-2) Rel Index TNP Troponin I < 0.012 Total Protein Albumin Globulin Albumin/Globulin Ratio Lipase Urine RBC Urine WBC Ur Squamous Epith Cells Urine Bacteria Hyaline Casts Ur Culture Indicated? COVID-19 PCR 07/08/20 07/08/20 07/08/20 15:35 16:30 18:14 WBC RBC Hgb Hct MCV MCH MCHC RDW Plt Count Neut % (Auto) Lymph % (Auto) King % (Auto) Eos % (Auto) Baso % (Auto) Neut # (Auto) Lymph # (Auto) King # (Auto) Eos # (Auto) Baso # (Auto) PT INR APTT Sodium Potassium Chloride Carbon Dioxide BUN Creatinine Estimated GFR BUN/Creatinine Ratio Glucose Lactate 1.6 Calcium Magnesium Total Bilirubin AST ALT Alkaline Phosphatase Total Creatine Kinase CK-MB (CK-2) CK-MB (CK-2) Rel Index Troponin I Total Protein Albumin Globulin Albumin/Globulin Ratio Lipase Urine RBC 1-5/hpf Urine WBC None seen Ur Squamous Epith Cells 0-1 /hpf Urine Bacteria None seen Hyaline Casts 0-1/lpf Ur Culture Indicated? Cult not indicated COVID-19 PCR Negative 07/09/20 07/09/20 05:15 05:15 WBC 5.9 RBC 4.33 L Hgb 14.1 Hct 42.0 MCV 97.1 MCH 32.5 MCHC 33.5 RDW 13.1 Plt Count 98 L Neut % (Auto) 59.0 D Lymph % (Auto) 25.6 King % (Auto) 14.4 H Eos % (Auto) 0.5 L Baso % (Auto) 0.5 Neut # (Auto) 3500 Lymph # (Auto) 1500 King # (Auto) 800 Eos # (Auto) 0 Baso # (Auto) 0 PT INR APTT Sodium 138 Potassium 3.8 Chloride 107 Carbon Dioxide 30 BUN 17 Creatinine 0.58 L Estimated GFR > 60.0 BUN/Creatinine Ratio 29.3 H Glucose 109 D Lactate Calcium 8.2 L Magnesium Total Bilirubin 0.8 AST 212 H ALT 427 H Alkaline Phosphatase 71 Total Creatine Kinase CK-MB (CK-2) CK-MB (CK-2) Rel Index Troponin I Total Protein 6.2 L Albumin 3.1 L Globulin 3.1 Albumin/Globulin Ratio 1.0 Lipase Urine RBC Urine WBC Ur Squamous Epith Cells Urine Bacteria Hyaline Casts Ur Culture Indicated? COVID-19 PCR Assessment & Plan Assessment & Plan narrative: 1. Abdominal pain-patient with a syndrome of abdominal pain over the last several years had increased in intensity in late 2018 but been relatively quiet since the 2019. Patient with similar findings on this evaluation to all previous evaluations including normal white blood cell count normal (for patient) lab work (a major exception being LFTs due to chronic hep C infection), and findings on CT suggesting left colonic inflammation or lack of distention. Patient has had a full GI workup that has failed to find diagnosis for these findings. He continues to be treated as though this is some sort of microscopic colitis with oral budesonide which has been helpful symptomatically anyway in the past. Also there have been thoughts regarding possibility of a cannabinoid hyper emesis syndrome, patient does continue to use marijuana on a multiple times a day basis. He denies having change this recently either more or less but I feel like that is a contributing issue as well. At this point this does not seem to me to be a bacterial infectious process with lack of fever leukocytosis or more clear findings on imaging. He has presented like this multiple times in the past and resolved without intervention with antibiotic therapy and so I do not believe that is necessary at this time. I have discontinued his IV antibiotics that were started in the ER for this reason. He does not have diverticulitis by the usual criteria nor do I think this is an infectious inflammatory bowel condition that would benefit from an tibiotics. Whether not he has some sort of microscopic colitis that is yet to be identified is certainly possible. Based on a subjective clinical response to oral budesonide that make sense. Also make sense with the recurrent frequency he has experienced however unfortunately biopsies failed to show this and usually those are quite specific period I will trying contact the communication consultant at [facility] that has seen and evaluated him most recently for thoughts but would give strong consideration to use of parental steroids for this purpose, although of course that will cause hyperglycemia and other secondary issues. In the past he has done well with control of symptoms including use of antiemetics parental and or oral narcotics, rehydration and time. For the m oment will focus on those treatments and re-evaluate over the next 12-36 hours. 2. Hypertension-patient quite hypertensive upon admission. Well controlled easily with minimal intervention. Numbers been much better since admission. No active concerned there. Troponin and EKG unremarkable. 3. Diabetes-patient with type 2 diabetes on oral medication usually. Admission blood sugar acceptable. Most recent A1c very much acceptable at 6.6. Continue to follow numbers. Remain off metformin while on a limited diet but would anticipate restarting that when we advanced his diet. 4. Coronary artery disease-patient with known coronary artery disease but that is been stable for quite some time. Continue usual meds for secondary prevention. No evidence of active ischemia at this time. 5. Paroxysmal atrial fibrillation-patient remains normal sinus rhythm. No evidence of rhythm disturbance at this time. As it has been difficult to accurately identify his rhythm disturbance. Cardiology is not convinced that he has actual paroxysmal atrial fibrillation, rather believing he more likely has a paroxysmal SVT. 6. Prostate cancer-patient is slowly working through treatment options with Kristofer manuel at [facility]. Not an active issue for this hospitalization at this point. 7. VTE prophylaxis-SCDs have been started and patient would be a candidate for Lovenox as well. 8. Code status-cardiac event or respiratory event causing respiratory or cardiac arrest patient would want to be resuscitated. He does not want long-term artificial life support but in the event of a sudden catastrophe would want an attempt at resuscitation. Therefore he is full code for the purposes this hospitalization After the above documentation was written, I had a long discussion with patient' s communication consultant that he had seen previously. She has not seen him since probably September or so of this year. Indeed his symptoms have been relatively quiet. I described his ongoing symptoms his reason for admission etcetera. She did not think there is evidence of an inflammatory bowel disease based on the biopsies which should been positive if there is any evidence of microscopic colitis or inflammatory bowel disease etcetera even if patient was asymptomatic. Therefore she did not feel like steroids on any level would be helpful. She wonders if perhaps patient experiences some element of partial bowel obstruction due to his intestinal malrotation that occurs intermittently but fails to be severe enough to cause obvious findings of bowel obstruction on evaluation when seen either in the clinic or in the hospital setting. She also thought perhaps there was some evidence of a bacterial infectious colitis with this persistent area of inflammatory change in the colon on CT imaging maybe even an atypical diverticulitis and thought perhaps antibiotics might be helpful to see if that could resolve symptoms. However after describing to her that he was much improved very quickly with me rehydration and normal white count and no real tenderness she thought that was less likely but certainly on the list of possibilities. Also discussed concern over patient's use of marijuana possible hyperemesis syndrome. However that does not explain the pain and findings in the colon on imaging. That some very typically an upper GI symptoms set with nausea vomiting etcetera which is part of patient's presentation but not the entirety of it In any event I elected not to place patient on steroids and continue off antibiotics for now and he will have close outpatient follow-up with GI as well as myself when ready for discharge
[2020-07-09] MEDS: SODIUM CHLORIDE 0.9% 1,000 ML 100 ML IV ×2 (08:57→21:05)
[2020-07-09] MEDS: PANTOPRAZOLE 40 MG TABLET PO ×2 (08:58→21:05)
[2020-07-09] MEDS: lisinopriL 20 MG TABLET 10 MG PO (08:59)
[2020-07-09] MEDS: BUDESONIDE 3 MG CAP 6 MG PO (09:00)
[2020-07-09] MEDS: ASPIRIN 81 MG CHEW TAB PO (09:00)
[2020-07-09] MEDS: SODIUM CHLORIDE 0.9% FLUSH 10 ML IV (09:01)
[2020-07-09] MEDS: METOPROLOL IR 50 MG TABLET PO ×2 (09:11→21:05)
[2020-07-09] MEDS: OXYCODONE IR 5 MG TABLET 10 MG PO (11:47)
[2020-07-09] MEDS: INSULIN ASPART 100 UNIT/ML INSULN PEN SUBCUT ×2 (12:14→16:57)
--- NOTE | 2020-07-09 14:46 | CM.DANOTE ---
DCP/Assessment: Reviewed chart. Patient is a 64yr old male admitted to [facility] with abdominal pain. PCP is Dr. Vasques. Primary payor is 1)[employer] ADV 2)Self pay. Met with patient explained CM/SW role. Patient alert and oriented, resting in bed comfortably at time of visit. Patient reports that he [place] alone in [place]. Patient uses cane at baseline and no longer drives. Patient reports that he has 2 caregivers that come 3x per week. His main caregiver is Lisandra # [phone]. Patient does not anticipate any d/c planning needs. Notified patient that CM team would continue to follow if needs were to arise. P: Home with supportive caregivers when medically stable. JAYME Green Discharge Planning/Care Management CM Discharge Assessment Start: 07/09/20 14:41 Freq: Status: Active Protocol: Document 07/09/20 14:42 KJS (Rec: 07/09/20 14:46 KJS [id number]) Discharge Planning Assessment Assigned Contact L[employer]inder JAYME Green Contact Information Lisandra (caregiver/friend) # [phone] Advance Directives? Yes History Provided By Patient,Medical Record Prior Living Arrangements House Household Members none Type of transporation used prior to Relies on Others admit Comment Patient has caregivers that provide transportation when needed. Independent with ADL's Yes: Uses cane at baseline also owns wheelchair. Is patient alert and oriented? Yes Needs Assistance With Managing Medications,Home Chores / Shopping Comment Patient reports having caregivers 3x per week ( private pay). Caregiver for Another No DME Already Rented / Owned Wheelchair,Cane Barriers to Discharge No Discharge Plan Home Transportation Arrangement Patietn reports that Lisandra can pick him up at time of d/c . Whiteboard Updated in Patient Room with Yes name and ext. # of Contact L[employer] Curve Grinder Review Status In Process Next Review Type Continued Stay Review
[2020-07-09] MEDS: TAMSULOSIN 0.4 MG CAPSULE PO (16:55)
[2020-07-09] MEDS: SIMVASTATIN 40 MG TABLET PO (16:55)
[2020-07-10 00:38] VITALS: BP 143/96; PULSE 60; RESP 18; TEMP 36.5; O2SAT 98
[2020-07-10] MEDS: OXYCODONE IR 5 MG TABLET PO (00:55)
--- NOTE | 2020-07-10 01:03 | PC.NURSE ---
Patient is alert and oriented; speaks in a monotone voice. Breath sounds CTA with RA sat of 98%. HRR with rate of 58 bpm apical; BP 143/96. Denies nausea. BT present and abdomen is soft and non tender; does report chronic pain with defecation. Denies dysuria, frequency or urgency with urination. Is able to move himself in bed. Gait not assessed at this time but patient reports he has neuropathy in entire left leg that causes his foot to roll inward when walking and reports having fallen in past 3 months nothing serious. Also reports a chronic numbness/stabbing pain in right great toe. Wearing bilateral calf SCD's. Complains of 3/10 frontal headache so medicated with Oxycodone. Fall risk score is high and bed alarm is activated.
[2020-07-10 05:19] VITALS: O2SAT 97
[2020-07-10 05:29] LABS: Add Manual Diff / Slide Review NO; BUN Creatinine Ratio 27.3 (6-22); Basophils Absolute Auto 0 /uL (0-100); Basophils Percent Auto 0.6 % (0-2); Blood Urea Nitrogen 15 mg/dL (9-20); Carbon Dioxide 29 mmol/L (22-32); Chloride 107 mmol/L (98-107); Eosinophils Absolute Auto 0 /uL (0-450); Eosinophils Percent Auto 0.9 % (2-4); Estimated Glomerular Filt Rate > 60.0 mL/min (>60); Glucose 121 mg/dL (80-110); HEMOLYSIS < 15 (0-50); Hematocrit 40.3 % (41-53); Hemoglobin 13.7 g/dL (13.5-17.5); Lymphocytes Absolute Auto 1100 /uL (1100-4500); Lymphocytes Percent Auto 23.1 % (25-40); Mean Corpuscular Hemoglobin 32.8 PG (26-34); Mean Corpuscular Volume 96.4 fL (80-100); Monocytes Absolute Auto 500 /uL (0-900); Monocytes Percent Auto 10.6 % (3-14); Neutrophils Absolute Auto 3000 /uL (1500-7000); Neutrophils Percent Auto 64.8 % (50-75); Platelet Count 84 X10^3/uL (150-400); Potassium 3.6 mmol/L (3.4-5.1); Red Blood Cell Count 4.18 X10^6/uL (4.5-5.9); Red Cell Distribution Width 12.6 % (11.6-14.8); Sodium 135 mmol/L (137-145); White Blood Cell Count 4.7 X10^3/uL (4.5-11.0)
[2020-07-10 05:54] VITALS: BP 155/93; PULSE 48; RESP 16; TEMP 36.2; O2SAT 96
[2020-07-10] MEDS: SODIUM CHLORIDE 0.9% 1,000 ML 100 ML IV (05:54)
[2020-07-10] MEDS: OXYCODONE IR 5 MG TABLET 10 MG PO (08:11)
[2020-07-10] MEDS: BUDESONIDE 3 MG CAP 6 MG PO (08:11)
[2020-07-10] MEDS: lisinopriL 20 MG TABLET 10 MG PO (08:11)
[2020-07-10] MEDS: ASPIRIN 81 MG CHEW TAB PO (08:12)
[2020-07-10] MEDS: ENOXAPARIN 40 MG/0.4 ML SYRINGE SUBCUT (08:12)
[2020-07-10] MEDS: METOPROLOL IR 50 MG TABLET PO (08:12)
[2020-07-10] MEDS: PANTOPRAZOLE 40 MG TABLET PO (08:12)
[2020-07-10] MEDS: SODIUM CHLORIDE 0.9% FLUSH 10 ML IV (08:15)
[2020-07-10 08:31] VITALS: BP 177/94; PULSE 61; RESP 16; TEMP 37.4; O2SAT 97
--- NOTE | 2020-07-10 08:31 | PM.DS.1 ---
History of Present Illness History of Present Illness Chief complaint: N/V/D, Abd pain Narrative: 64-year-old male longstanding history of intermittent abdominal pain with nausea and vomiting (times more than 2 years) presented to the [facility] Emergency Department on July 08 because of persistent nausea and vomiting and some left lower quadrant pain and discomfort. Also had some soft bowel movements without actual diarrhea. His emesis was more mild like no blood or dark material. Patient reports symptoms started within a couple of days of presentation Past history includes multiple episodes of this same sort of syndrome. Been fully evaluated by a Gastroenterology over the last several months and actually since the of the year is been minimally symptomatic. Previously had upper and lower endoscopy and multiple CT scans. CT scans intermittently show evidence of sigmoid left colonic thickening consistent with a colitis but biopsies performed in this exact area in August 2019 were unremarkable. GI has failed to come up with a good explanation for patient's symptoms other than the possibility of a cannabinoid hyperemesis syndrome. Patient's medical history is otherwise complicated of course by as yet untreated advanced prostate cancer, currently being monitored by [facility], diabetes type 2, coronary artery disease and intermittent paroxysmal atrial fibrillation (for which he is not anticoagulated) Patient was also quite hypertensive upon presentation although that was treated effectively with topical nitrates and metoprolol IV. Admission Patient was also started on IV antibiotics for possible diverticulitis and or infectious colitis given appearance on CT imaging (although this is been seen off and on multiple times, and current appearance based on radiology's description is certainly not classic for an infectious colitis or diverticulitis) Discharge Providers Provider Date of admission: 07/08/20 19:15 Discharge Date: 07/10/20 Primary care physician: Khang Dowell MD Discharge provider: Khang Dowell MD Summary Hospital Course Discharge Diagnosis: 1. Abdominal pain 2. Nausea and vomiting 3. Severe hypertension likely secondary to problem 1. To above 4. Nonspecific colitis, not felt to be infectious or inflammatory 5. Prostate cancer 6. Type 2 diabetes not uncontrolled 7. Coronary artery disease, stable 8. Chronic hepatitis C infection with chronic hepatitis Hospital Course: Patient was admitted to the hospital floor. Started on IV antibiotics in the ER and given vigorous parental antiemetics and IV fluids. Because of patient's previous evaluations and presentations very similar and lack of specific infectious findings his IV antibiotics were discontinued. Patient was continued with symptomatic treatment and slowly advance diet. His nausea vomiting or almost completely absent. Abdominal pain was almost completely absent by time of discharge. Patient still having some discomfort with defecation which is felt to be due to his prostate cancer. Patient was eating normally with a normal evening meal and normal breakfast on day of discharge and felt to be ready for discharge home Long discussion was held with his charge aide as noted in his history and physical. No new diagnoses have become apparent since then. Patient's blood pressure was much better controlled once symptoms are relieved in the emergency room and were not an issue during this hospitalization. Patient will continue on all of his usual antihypertensive meds Patient's coronary disease with stable. No evidence of rhythm disturbance either. Patient's prostate cancer deserves further evaluation and treatment he has not been seen by Urology for months and that needs to be re-evaluated will be done as an outpatient Exam Vital Signs (past 8 hours): - 07/10/20 00:38 07/10/20 05:19 07/10/20 05:54 Temperature 97.7 F 97.1 F L Pulse Rate 60 48 L Respiratory Rate 18 16 Blood Pressure 143/96 H 155/93 H Pulse Oximetry 98 97 96 Oxygen Delivery Method Room Air Oxygen Flow Rate 0 Narrative Exam Narrative: Much older than stated age appearing male in no obvious distress appears to feel more comfortable than he did yesterday morning HEENT-unremarkable, normocephalic atraumatic Neck-no lymphadenopathy no bruits Lungs-clear anteriorly and posteriorly no wheezes no crackles good breath sounds Heart-regular rate and rhythm, no murmur, rub, or gallop. normal S1-S2 Abdomen-positive bowel tones, soft, nontender, nondistended, no hepatosplenomegaly, no masses palpable Neuro-normal to screening exam, gait not tested Extremities-no cyanosis clubbing or edema Objective Labs Result Diagrams: 07/10/20 05:10 07/10/20 05:10 Labs: Laboratory Results - last 24 hr 07/10/20 07/10/20 05:10 05:10 WBC 4.7 RBC 4.18 L Hgb 13.7 Hct 40.3 L MCV 96.4 MCH 32.8 MCHC 34.0 RDW 12.6 Plt Count 84 L Neut % (Auto) 64.8 Lymph % (Auto) 23.1 L [place] % (Auto) 10.6 Eos % (Auto) 0.9 L Baso % (Auto) 0.6 Neut # (Auto) 3000 Lymph # (Auto) 1100 [place] # (Auto) 500 Eos # (Auto) 0 Baso # (Auto) 0 Sodium 135 L Potassium 3.6 Chloride 107 Carbon Dioxide 29 BUN 15 Creatinine 0.55 L Estimated GFR > 60.0 BUN/Creatinine Ratio 27.3 H Glucose 121 H Calcium 8.0 L Discharge Assessment & Plan Assessment and Plan Plan of Treatment: Continue on usual outpatient medications including oxycodone which is refilled for him today. Continue usual antihypertensives. Continue to advance diet as able and if increasing symptoms reduced diet as patient is well aware and has done previously. Close outpatient follow-up by myself and will initiate referral to Gastroenterology at again and ensure patient is seen by Urology in a timely fashion as well. Discharge Plan Discharge Plan Patient Disposition: Home Discharge orders & Medications Prescriptions: Continued ondansetron 4 mg tablet,disintegrating 4 mg PO Q6H PRN (Reason: Nausea) Qty: 30 RF: 3 simvastatin 40 mg tablet 40 mg PO QPM Qty: 90 RF: 1 omeprazole 40 mg capsule,delayed release(DR/EC) 40 mg PO BID Qty: 180 RF: 1 budesonide 3 mg capsule,delayed,extend.release 6 mg PO QAM Qty: 180 RF: 3 (DME) blood-glucose meter Misc See Rx Instructions .ROUTE .MEDSUPPLY Qty: 1 RF: 0 (DME) blood sugar diagnostic [Blood Glucose Test] Strip See Rx Instructions .ROUTE .MEDSUPPLY Qty: 100 RF: 3 (DME) lancets 30 gauge misc See Rx Instructions .ROUTE .MEDSUPPLY Qty: 100 RF: 3 metformin 500 mg tablet 500 mg PO BID Qty: 180 RF: 1 cyclobenzaprine 5 mg tablet 5 mg PO TID PRN (Reason: Spasms) RF: 0 metoprolol tartrate 50 mg tablet 50 mg PO BID RF: 0 lisinopril 20 mg tablet 10 mg PO QAM RF: 0 aspirin 81 mg Tablet,Chewable 81 mg PO QAM RF: 0 tamsulosin 0.4 mg capsule 0.4 mg PO QPM RF: 0 oxycodone 5 mg tablet 5 - 10 mg PO Q4H PRN (Reason: pain) Qty: 360 RF: 0 Follow up/Referrals: Khang Dowell MD [Primary Care Provider] - 07/24/20 11:00 am (appt:07/24 @ [address] dowell please arrive 15 min prior to your scheduled appointment ) Discharge Health Status Multidrug resistant organism: No MDRO Diet/Activity/Treatments Diet: Diet as Tolerated Visit Report/Discharge Packet Instructions: DI for Dehydration -- Adult, DI for Colitis Visit Report Forms: Patient Portal/API, Stroke Signs & Symptoms Discharge Data Primary Care Provider: Khang Dowell Attending Provider: Khang Dowell Admit Date/Time: 07/08/20 19:15 Discharges patient from system. Discharge Date/Time: 07/10/20 11:40
[2020-07-10 09:00] VITALS: O2SAT 96
--- NOTE | 2020-07-10 11:31 | PC.NURSE ---
All discharge teaching done to patient and care transitions nurse regarding diet, activity, medications, falls, SS of stroke and information regarding colitis and dehydration. Patient and care transitions nurse verbalized understanding to discharge teaching. Patient left facility with all belongings, and had no prescriptions in hand. Patient left facility w/ care transitions nurse via wheelchair and private vehicle.
--- NOTE | 2020-07-15 16:52 | PC.NURSE ---
Late Entry; Flagyl infusion initiated 07/09 at 02:37 complete at 03:38.
== END 2020-07-10 11:40 | disposition home or self-care (01) ==
LOC: ED 19:15 → AC 19:16
PROVIDERS: Admitting Provider Family Medicine; Emergency Provider Nurse Practitioner Family; PCP Internal Medicine; Referring Provider Nurse Practitioner Family; Visit Provider Internal Medicine
DX: K52.9 Noninfective gastroenteritis and colitis, unspecified (principal); R10.32 Left lower quadrant pain; R11.2 Nausea with vomiting, unspecified; R11.14 Bilious vomiting; I10 Essential (primary) hypertension; E11.9 Type 2 diabetes mellitus without complications; Z79.84 Long term (current) use of oral hypoglycemic drugs; I25.10 Atherosclerotic heart disease of native coronary artery without angina pectoris; I48.0 Paroxysmal atrial fibrillation; B18.2 Chronic viral hepatitis C; C61 Malignant neoplasm of prostate; Z11.59 Encounter for screening for other viral diseases
CPT/HCPCS: 36415; 74177; 80048; 80053; 81003; 81015; 82550; 82962; 83605; 83690; 83735; 84484; 85025; 85610; 85730; 87635; 93005; 93010; 96361; 96365; 96366; 96367; 96372; 96375; 96376; 99217; 99220; 99284; G0378; C9113; J0744; J1650; J2270; J2405; Q9967

== ENCOUNTER → 2020-08-21 07:34 | Outpatient (CLI) | payer OTHER, SELFPAY ==
[2020-07-08 23:14] VITALS: BMI 19.8
[2020-08-21 09:23] LABS: Prostate Specific Antigen 11.4 ng/mL (0.10-4.00)
== END ==
PROVIDERS: PCP Internal Medicine; Referring Provider Internal Medicine; Visit Provider Urology
DX: Z85.46 Personal history of malignant neoplasm of prostate (principal)
CPT/HCPCS: 36415; 84153

== ENCOUNTER → 2020-08-26 10:04 | Outpatient (CLI) | payer OTHER, SELFPAY ==
[2020-08-26 09:56] VITALS: BMI 19.8
[2020-08-26 11:07] LABS: Alanine Aminotransferase 598 IU/L (<50); Albumin 4.4 g/dL (3.5-5.0); Albumin Globulin Ratio 1.1 (1.0-2.8); Alkaline Phosphatase 130 U/L (38-126); Aspartate Aminotransferase 388 IU/L (17-59); BUN Creatinine Ratio 46.9 (6-22); Bilirubin Total 0.9 mg/dL (0.2-1.3); Blood Urea Nitrogen 23 mg/dL (9-20); Calcium 9.9 mg/dL (8.4-10.2); Carbon Dioxide 28 mmol/L (22-32); Chloride 105 mmol/L (98-107); Estimated Glomerular Filt Rate > 60.0 mL/min (>60); Glucose 224 mg/dL (80-110); HEMOLYSIS < 15 (0-50); Potassium 4.1 mmol/L (3.4-5.1); Sodium 140 mmol/L (137-145); Total Protein 8.4 g/dL (6.3-8.2)
[2020-08-26 11:08] LABS: Hemoglobin A1C% w Est Avg Glu 6.5 % (4.0-6.0)
== END ==
PROVIDERS: PCP Internal Medicine; Referring Provider Internal Medicine; Visit Provider Internal Medicine
DX: B18.2 Chronic viral hepatitis C (principal); E11.65 Type 2 diabetes mellitus with hyperglycemia; I10 Essential (primary) hypertension; R74.01 Elevation of levels of liver transaminase levels
CPT/HCPCS: 36415; 80053; 83036

== ENCOUNTER 2020-11-10 09:37 | Emergency (ER) | payer OTHER, SELFPAY ==
[2020-08-26 09:56] VITALS: BMI 19.8
[2020-11-10] VITALS (19 sets, daily range): BP systolic 223–239; BP diastolic 108–113; PULSE 51–76; RESP 8–20; TEMP 36.8; O2SAT 93–100; BMI 20.3
--- NOTE | 2020-11-10 09:51 | ED_ITS ---
HPI - General Adult General Chief complaint: Abdominal Pain Stated complaint: N/V/D, Abd pain Time Seen by Provider: 11/10/20 09:43 Source: patient and EMS Mode of arrival: EMS Limitations: no limitations History of Present Illness HPI narrative: Patient is a 65-year-old male. Somewhat difficult to obtain in HPI from him. He arrived by EMS after he called them for evaluation of abdominal pain. Patient states he has not been sleeping well over the past several nights because he is taking hormone shots for prostate cancer. He states that he was not sleeping well last night. This morning he started having abdominal pain and subsequently had a couple episodes of loose stools and 1 episode of bile colored vomit. He denies any fevers. Patient seemed to be very reluctant/annoyed to answer any further questioning. Related Data Home Medications Medication Instructions Recorded Confirmed cyclobenzaprine 5 mg tablet 5 mg PO TID PRN tab 03/20/19 11/04/20 tamsulosin 0.4 mg PO QPM 08/15/19 11/04/20 aspirin 81 mg PO QAM 11/06/19 11/04/20 metoprolol tartrate 50 mg tablet 50 mg PO BID tab 03/04/20 11/04/20 Previous Rx's Medication Instructions Recorded ondansetron 4 mg disintegrating 4 mg PO Q6H PRN #30 tab 06/19/19 tablet budesonide 3 mg 6 mg PO QAM #180 each 12/04/19 capsule,delayed,extended release blood sugar diagnostic #100 each 05/13/20 blood-glucose meter #1 each 05/13/20 lancets 30 gauge #100 each 05/13/20 metformin 500 mg tablet 500 mg PO BID #180 tab 05/26/20 simvastatin 40 mg tablet 40 mg PO QPM #90 tab 08/12/20 omeprazole 40 mg capsule,delayed 40 mg PO BID #180 cap 09/04/20 release oxycodone 5 mg tablet 5 - 10 mg PO Q4H PRN #360 tab 09/15/20 [address]ing #1 ea 10/13/20 lisinopril 40 mg tablet 40 mg PO BID #180 tab 11/04/20 Allergies Allergy/AdvReac Type Severity Reaction Status Date / Time No Known Drug Allergies Allergy Verified 11/10/20 09:26 Review of Systems Constitutional Constitutional: Denies headache(s) ENT Ears, Nose, Mouth, and Throat: Denies headache(s) Cardiovascular Cardiovascular: Denies chest pain and Denies dyspnea Respiratory Respiratory: Denies dyspnea Gastrointestinal Gastrointestinal: Reports abdominal pain, Reports diarrhea, Reports nausea and Reports vomiting Genitourinary Genitourinary: Denies dysuria Genitourinary: Denies dysuria Integumentary/Breasts Skin/Breast: Denies rash Neurologic Neurologic: Denies behavioral changes and Denies headache(s) Psychiatric Psychiatric: Denies behavioral changes Hematologic/Lymphatic On Anticoagulants: No Allergic/Immunologic Allergic/Immunologic: Denies urticaria Patient History Medical History Cannabis abuse Chronic hepatitis Coronary artery disease involving [place] coronary artery of [place] heart without angina pectoris (~2006) Diabetes type 2, controlled Diabetes type 2, uncontrolled Diabetic peripheral neuropathy Diverticular disease Diverticulosis of large intestine (03/31/12) Essential hypertension Hepatitis C Kidney stones Mixed hyperlipidemia Paroxysmal A-fib Prostate cancer (~05/2019) Surgical History (System 11/10/20 @ 09:26 by Lady Rae Ardon) H/O heart artery stent (~2006) History of angioplasty (~12/2006) Hx of inguinal hernia surgery (~09/20/08) Hx of inguinal hernia surgery (~03/07/14) Status post laminectomy Social History marital status: unmarried,single number of children: 3 household members: none lives independently: Yes caregiver/support person: No housing: house pets and animals: No education level: high school occupational status: other 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.) alcohol intake: former substance use type: does not use and marijuana eating out: rarely or never Type(s) of exercise: normal ROM and activity and additional Smoking Status: Never smoker alcohol intake frequency: a few times a week Substance Use Type: marijuana Exam Initial Vital Signs Initial Vital Signs: Vital Signs Temperature 98.2 F 11/10/20 09:43 Pulse Rate 51 L 11/10/20 09:43 Respiratory Rate 10 L 11/10/20 09:43 Blood Pressure 223/109 H 11/10/20 09:43 Pulse Oximetry 98 11/10/20 09:43 Const General: cooperative (Minimally cooperative), comfortable, frail appearing and N o ill appearing Limitations: mental status not altered HENKY Head: normal to inspection and normocephalic Resp Effort & Inspection: normal respiratory effort Auscultation: clear to auscultation bilaterally Cardio Rate: regular rate Rhythm: regular rhythm GI Inspection: non-distended Palpation: soft and tender (Diffuse tenderness) Skin Lesions: no lesions Rashes: no rashes Neuro General: patient alert and patient awake Cognition: normal cognition Extrem General: capillary refill normal and No edema Psych Appearance: grossly normal and well kempt Course Orders Ordered: ED Orders 11/10/20 10:05 EKG-12 Lead Stat 11/10/20 10:15 Complete Blood Count AUTO DIFF Stat Comprehensive Metabolic Panel Stat Ethanol (ETOH) Stat Lactate (Lactic Acid) Stat Lipase Stat Troponin & CK Cardiac Panel Stat 11/10/20 10:35 EKG-12 Lead Stat 11/10/20 11:09 CT abdomen pelvis w con Stat Discontinued Medications Sodium Chloride (Normal Saline 0.9%) 1,000 mls @ 1,000 mls/hr IV BOLUS ONE Stop: 11/10/20 11:02 Last Admin: 11/10/20 10:27 Dose: 1,000 mls/hr Documented by: CHUNG Morphine Sulfate (Morphine 4 Mg/Ml Inj) 4 mg IV NOW ONE Stop: 11/10/20 10:40 Last Admin: 11/10/20 11:03 Dose: 4 mg Documented by: ANDREW Vital Signs Vital signs: Vital Signs - 8 hr 11/10/20 09:43 11/10/20 09:47 11/10/20 09:50 Temperature 98.2 F Pulse Rate 51 L 54 L 51 L Respiratory Rate 10 L 20 13 Blood Pressure 223/109 H Pulse Oximetry 98 97 99 11/10/20 10:00 11/10/20 10:10 11/10/20 10:20 Temperature Pulse Rate 52 L 54 L 53 L Respiratory Rate 10 L 11 L 9 L Blood Pressure Pulse Oximetry 99 100 99 11/10/20 10:30 11/10/20 10:40 11/10/20 10:50 Temperature Pulse Rate 57 L 58 L 55 L Respiratory Rate 8 L 12 9 L Blood Pressure Pulse Oximetry 99 99 98 11/10/20 11:00 11/10/20 11:20 11/10/20 11:21 Temperature Pulse Rate 60 67 67 Respiratory Rate 9 L 12 Blood Pressure 226/111 H Pulse Oximetry 99 94 100 11/10/20 11:30 11/10/20 11:40 11/10/20 11:50 Temperature Pulse Rate 64 67 76 Respiratory Rate 9 L 8 L 15 Blood Pressure 239/113 H Pulse Oximetry 98 99 99 11/10/20 12:00 11/10/20 12:01 Temperature Pulse Rate 65 68 Respiratory Rate 19 17 Blood Pressure 238/108 H Pulse Oximetry 99 99 Medical Decision Making Medical Records Medical records reviewed: Yes I reviewed the patient's medical records. Lab Data Lab results reviewed: Yes I reviewed the patient's lab results. Result diagrams: 11/10/20 10:15 11/10/20 10:15 Labs: Lab Results 11/10/20 11/10/20 11/10/20 Range/Units 10:15 10:15 10:15 WBC 4.8 (4.5-11.0) X10^3/uL RBC 4.52 (4.5-5.9) X10^6/uL Hgb 14.9 (13.5-17.5) g/dL Hct 43.2 (41-53) % MCV 95.6 (80-100) fL MCH 33.0 (26-34) PG MCHC 34.5 (30-36) % RDW 13.1 (11.6-14.8) % Plt Count 37 L (150-400) X10^3/uL Neut % (Auto) 74.5 (50-75) % Lymph % (Auto) 13.4 L (25-40) % [place] % (Auto) 11.3 (3-14) % Eos % (Auto) 0.3 L (2-4) % Baso % (Auto) 0.5 (0-2) % Neut # (Auto) 3600 (8270-8224) /uL Lymph # (Auto) 600 L (4696-9696) /uL [place] # (Auto) 500 (0-900) /uL Eos # (Auto) 0 (0-450) /uL Baso # (Auto) 0 (0-100) /uL Clumped Platelets 2 Plt Morphology Comment Giant platelets seen RBC Morphology Not Reportable Sodium 139 (137-145) mmol/L Potassium 3.5 (3.4-5.1) mmol/L Chloride 105 (98-107) mmol/L Carbon Dioxide 27 (22-32) mmol/L BUN 24 H (9-20) mg/dL Creatinine 0.42 L (0.66-1.25) mg/dL Estimated GFR > 60.0 (>60) mL/min BUN/Creatinine Ratio 57.1 H (6-22) Glucose 263 H (80-110) mg/dL Lactate 1.9 (0.7-2.1) mmol/L Calcium 9.0 (8.4-10.2) mg/dL Total Bilirubin 1.1 (0.2-1.3) mg/dL AST 572 H (17-59) IU/L ALT 571 H (<50) IU/L Alkaline Phosphatase 167 H (38-126) U/L Total Creatine Kinase 99 (55-170) U/L CK-MB (CK-2) TNP CK-MB (CK-2) Rel Index TNP Troponin I < 0.012 (0.01-0.034) ng/mL Total Protein 7.3 (6.3-8.2) g/dL Albumin 4.0 (3.5-5.0) g/dL Globulin 3.3 (1.7-4.1) g/dL Albumin/Globulin Ratio 1.2 (1.0-2.8) Lipase 69 (23-300) U/L Ethyl Alcohol < 10 ( - 10) mg/dL Imaging Data CT scan - abdomen/pelvis: Radiologist's Impression: [address] [id number] Scan ReportSigned Patient: Brennan Marmolejo CMR#: [id number]: 6Acct:[id number]/Sex: 65 / MDate of Service: 11/10/20Loc: EDAccession Number: [id number] Procedure: CT abdomen pelvis w con Ordering Provider: Gabriel Brown D.O. PROCEDURE: CT ABDOMEN PELVIS W CON INDICATIONS: Generalized abdominal pain TECHNIQUE: After the administration of intravenous contrast, 5 mm thick sections acquired from the diaphragm to the symphysis. 5 mm coronal and sagittal reformats were acquired. For radiation dose reduction, the following was used: automated exposure control, adjustment of mA and/or kV according to patient size. COMPARISON: [facility], CT, CT ABDOMEN PELVIS W CON, 07/08/2020, 15:12. FINDINGS: Image quality: Excellent. ABDOMEN: Lung bases: Lung bases are clear. Heart size is normal. Solid organs: Liver demonstrates an enlarged left lobe with a diffusely nodular margin . Coarse calcifications near the liver dome. Gallbladder is normal. Biliary system is non dilated. Pancreas enhances normally. Spleen is normal in size and enhancement. No adrenal nodules. Kidneys demonstrate normal size and enhancement, without hydronephrosis. Peritoneum and bowel: Congenital malrotation of the bowel. Normal appendix. Diverticular disease of the sigmoid colon with relative luminal decompression and chronic wall thickening. Trace questionable pericolonic inflammation. No free fluid or air. Nodes and vessels: No retroperitoneal or mesenteric adenopathy by size criteria. Aorta and inferior vena cava are normal in size. Miscellaneous: No ventral hernias. PELVIS: Genitourinary: Bladder wall thickness is normal. The prostate gland is mildly enlarged and nodular. Miscellaneous: No inguinal hernias or adenopathy. Bones: No suspicious bony lesions. No vertebral body compression fractures. IMPRESSION: 1. Possible mild recurrent sigmoid diverticulitis. 2. Cirrhosis. 3. Mild prostatomegaly, stable. 4. 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 Dictated by: Michaela Bueno M.D. on 11/10/2020 at 11:25 Approved by: Michaela Bueno M.D. on 11/10/2020 at 11:35 ECG Data Attestation: I personally reviewed and interpreted this ECG as follows: Prior ECG tracings: not available for review Interpretation: Sinus bradycardia Ventricular rate of 51 Normal axis Normal QRS Normal QTC No ST T wave changes Repeat EKG Sinus bradycardia Ventricular rate of 51 Normal QRS Normal QTC Unchanged from initial EKG MDM Narrative Medical decision making narrative: Patient is somewhat cachectic appearing. Is hypertensive however has not taken any of his blood pressure medications this morning. He arrives with abdominal pain. His CT scan shows potentially early diverticulitis however review of his records show that this is potentially not a new issue and has been seen in the past and initially has been started on antibiotics but then subsequently stopped. I did talk with his primary provider who states that he has had a longstanding history of an undifferentiated abdo te pain. He has seen GI for this. When I went in to reassure the patient stating that there was no surgical issue and no infectious issue for which we felt that he needed to be on antibiotics he stated that ?I just needed to come over here and settle down and get some pain medicine ?. His is at bedside. Feel patient could be discharged home will have him contact his primary provider for follow-up. He expressed understanding and agreement. Discharge Plan Departure Patient Disposition: Home Clinical Impression: Abdominal pain Instructions: DI for Abdominal Pain-Adult Activity Restrictions/Additional Instructions: Your workup here in the emergency department today is reassuring. There is no signs of any surgical issues nor any infections for which we should start antibiotics. I did discuss the case with Dr. Vasques. He had asked that you contact his office for a follow-up. Return to the emergency department for any new or worsening symptoms. Take all of your medications as directed. Prescriptions: No Action ondansetron 4 mg tablet,disintegrating 4 mg PO Q6H PRN (Reason: Nausea) Qty: 30 RF: 3 budesonide 3 mg capsule,delayed,extend.release 6 mg PO QAM Qty: 180 RF: 3 (DME) blood-glucose meter Misc See Rx Instructions .ROUTE .MEDSUPPLY Qty: 1 RF: 0 (DME) blood sugar diagnostic [Blood Glucose Test] Strip See Rx Instructions .ROUTE .MEDSUPPLY Qty: 100 RF: 3 (DME) lancets 30 gauge misc See Rx Instructions .ROUTE .MEDSUPPLY Qty: 100 RF: 3 metformin 500 mg tablet 500 mg PO BID Qty: 180 RF: 1 simvastatin 40 mg tablet 40 mg PO QPM Qty: 90 RF: 1 omeprazole 40 mg capsule,delayed release(DR/EC) 40 mg PO BID Qty: 180 RF: 1 oxycodone 5 mg tablet 5 - 10 mg PO Q4H PRN (Reason: pain) Qty: 360 RF: 0 (DME) Disabled Parking See Rx Instructions .ROUTE .MEDSUPPLY Qty: 1 RF: 0 cyclobenzaprine 5 mg tablet 5 mg PO TID PRN (Reason: Spasms) RF: 0 metoprolol tartrate 50 mg tablet 50 mg PO BID RF: 0 lisinopril 40 mg tablet 40 mg PO BID Qty: 180 RF: 3 aspirin 81 mg Tablet,Chewable 81 mg PO QAM RF: 0 tamsulosin 0.4 mg capsule 0.4 mg PO QPM RF: 0 Referrals: Khang Vasques MD [Primary Care Provider] -
[2020-11-10] MEDS: SODIUM CHLORIDE 0.9% 1,000 ML 1000 ML IV (10:27)
[2020-11-10 10:34] LABS: Add Manual Diff / Slide Review NO; Basophils Absolute Auto 0 /uL (0-100); Basophils Percent Auto 0.5 % (0-2); Eosinophils Absolute Auto 0 /uL (0-450); Eosinophils Percent Auto 0.3 % (2-4); Hematocrit 43.2 % (41-53); Hemoglobin 14.9 g/dL (13.5-17.5); Lymphocytes Absolute Auto 600 /uL (1100-4500); Lymphocytes Percent Auto 13.4 % (25-40); Mean Corpuscular HGB Conc 34.5 % (30-36); Mean Corpuscular Volume 95.6 fL (80-100); Monocytes Absolute Auto 500 /uL (0-900); Monocytes Percent Auto 11.3 % (3-14); Neutrophils Absolute Auto 3600 /uL (1500-7000); Neutrophils Percent Auto 74.5 % (50-75); Red Blood Cell Count 4.52 X10^6/uL (4.5-5.9); Red Cell Distribution Width 13.1 % (11.6-14.8); White Blood Cell Count 4.8 X10^3/uL (4.5-11.0)
[2020-11-10 10:35] LABS: Platelet Count 37 X10^3/uL (150-400)
[2020-11-10 10:41] LABS: Lactate (Lactic Acid) 1.9 mmol/L (0.7-2.1)
[2020-11-10 10:43] LABS: Alanine Aminotransferase 571 IU/L (<50); Albumin Globulin Ratio 1.2 (1.0-2.8); BUN Creatinine Ratio 57.1 (6-22); Bilirubin Total 1.1 mg/dL (0.2-1.3); Blood Urea Nitrogen 24 mg/dL (9-20); Carbon Dioxide 27 mmol/L (22-32); Chloride 105 mmol/L (98-107); Creatine Kinase 99 U/L (55-170); Estimated Glomerular Filt Rate > 60.0 mL/min (>60); Ethanol (ETOH) < 10 mg/dL; Globulin 3.3 g/dL (1.7-4.1); Glucose 263 mg/dL (80-110); Lipase 69 U/L (23-300); Sodium 139 mmol/L (137-145); Total Protein 7.3 g/dL (6.3-8.2)
[2020-11-10 10:45] LABS: Aspartate Aminotransferase 572 IU/L (17-59); HEMOLYSIS 57 (0-50); Potassium 3.5 mmol/L (3.4-5.1)
[2020-11-10 10:46] LABS: Alkaline Phosphatase 167 U/L (38-126)
[2020-11-10 10:54] LABS: Platelet Morphology Comment GIANT PLATELETS SEEN; Troponin I < 0.012 ng/mL (0.01-0.034)
[2020-11-10 10:55] LABS: Platelet Clumps 2
[2020-11-10] MEDS: MORPHINE 4 MG/ML INJ IV (11:03)
--- NOTE | 2020-11-10 11:09 | DI.CT.S_ITS ---
PROCEDURE: CT ABDOMEN PELVIS W CON INDICATIONS: Generalized abdominal pain TECHNIQUE: After the administration of intravenous contrast, 5 mm thick sections acquired from the diaphragm to the symphysis. 5 mm coronal and sagittal reformats were acquired. For radiation dose reduction, the following was used: automated exposure control, adjustment of mA and/or kV according to patient size. COMPARISON: [facility], CT, CT ABDOMEN PELVIS W CON, 07/08/2020, 15:12. FINDINGS: Image quality: Excellent. ABDOMEN: Lung bases: Lung bases are clear. Heart size is normal. Solid organs: Liver demonstrates an enlarged left lobe with a diffusely nodular margin . Coarse calcifications near the liver dome. Gallbladder is normal. Biliary system is non dilated. Pancreas enhances normally. Spleen is normal in size and enhancement. No adrenal nodules. Kidneys demonstrate normal size and enhancement, without hydronephrosis. Peritoneum and bowel: Congenital malrotation of the bowel. Normal appendix. Diverticular disease of the sigmoid colon with relative luminal decompression and chronic wall thickening. Trace questionable pericolonic inflammation. No free fluid or air. Nodes and vessels: No retroperitoneal or mesenteric adenopathy by size criteria. Aorta and inferior vena cava are normal in size. Miscellaneous: No ventral hernias. PELVIS: Genitourinary: Bladder wall thickness is normal. The prostate gland is mildly enlarged and nodular. Miscellaneous: No inguinal hernias or adenopathy. Bones: No suspicious bony lesions. No vertebral body compression fractures. IMPRESSION: 1. Possible mild recurrent sigmoid diverticulitis. 2. Cirrhosis. 3. Mild prostatomegaly, stable. 4. 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 Dictated by: Michaela Bueno M.D. on 11/10/2020 at 11:25 Approved by: Michaela Bueno M.D. on 11/10/2020 at 11:35
--- NOTE | 2020-11-10 12:05 | PC.NURSE ---
provider aware of hypertension
== END 2020-11-10 12:45 | disposition home or self-care (01) ==
PROVIDERS: Emergency Provider Emergency Medicine; PCP Internal Medicine; Referring Provider Internal Medicine
DX: R10.9 Unspecified abdominal pain (principal); R00.1 Bradycardia, unspecified; I10 Essential (primary) hypertension; R11.2 Nausea with vomiting, unspecified; C61 Malignant neoplasm of prostate; R19.7 Diarrhea, unspecified
CPT/HCPCS: 36415; 74177; 80053; 80320; 82550; 83605; 83690; 84484; 85025; 93005; 96361; 96374; 99283; 99284; J2270; Q9967

== ENCOUNTER 2020-11-12 08:00 | Observation (INO) | payer OTHER, SELFPAY ==
[2020-08-26 09:56] VITALS: BMI 19.8
[2020-11-12] VITALS (31 sets, daily range): BP systolic 111–251; BP diastolic 71–149; PULSE 57–150; RESP 12–28; TEMP 35.6–37.6; O2SAT 95–99; BMI 20.3
--- NOTE | 2020-11-12 08:04 | ED_ITS ---
HPI - Arrhythmia/Palpitations General Chief Complaint: Arrhythmia/Palpitations Stated Complaint: Heart Racing Time Seen by Provider: 11/12/20 08:03 Source: patient, EMS and old records reviewed Mode of arrival: EMS Limitations: no limitations History of Present Illness HPI narrative: The patient is a 65-year-old male paroxysmal atrial fibrillation which is usually controlled with metoprolol and chronic ongoing abdominal pain. He was seen and evaluated here 2 days ago for abdominal pain he thought he had food poisoning he was evaluated and then released. Today he woke up with heart palpitations he says he has not been able to take his metoprolol at least today. He feels a little dizzy and lightheaded. He was given fentanyl by EMS for his abdominal pain. MD complaint: rapid heart beat Duration: constant Arrhythmia history: atrial fibrillation Related Data Home Medications Medication Instructions Recorded Confirmed cyclobenzaprine 5 mg tablet 5 mg PO TID PRN tab 03/20/19 11/12/20 tamsulosin 0.4 mg PO QPM 08/15/19 11/12/20 aspirin 81 mg PO QAM 11/06/19 11/12/20 metoprolol tartrate 50 mg tablet 50 mg PO BID tab 03/04/20 11/12/20 Previous Rx's Medication Instructions Recorded ondansetron 4 mg disintegrating 4 mg PO Q6H PRN #30 tab 06/19/19 tablet budesonide 3 mg 6 mg PO QAM #180 each 12/04/19 capsule,delayed,extended release blood sugar diagnostic #100 each 05/13/20 blood-glucose meter #1 each 05/13/20 lancets 30 gauge #100 each 05/13/20 metformin 500 mg tablet 500 mg PO BID #180 tab 05/26/20 simvastatin 40 mg tablet 40 mg PO QPM #90 tab 08/12/20 omeprazole 40 mg capsule,delayed 40 mg PO BID #180 cap 09/04/20 release oxycodone 5 mg tablet 5 - 10 mg PO Q4H PRN #360 tab 09/15/20 Disabled Parking #1 ea 10/13/20 lisinopril 40 mg tablet 40 mg PO BID #180 tab 11/04/20 Allergies Allergy/AdvReac Type Severity Reaction Status Date / Time No Known Drug Allergies Allergy Verified 11/10/20 09:26 Review of Systems Review of Systems ROS Unobtainable: All systems reviewed & are unremarkable except as noted in HPI and below Constitutional Constitutional: Denies chills, Denies fever(s), Reports lethargy and Denies weakness Eyes Eyes: Denies change in vision, Denies eye discharge, Denies irritation and Denies loss of vision Cardiovascular Cardiovascular: Reports as per HPI, Reports chest pain, Reports rapid heart rate, Reports irregular heart rhythm, Denies dyspnea and Denies dyspnea on exertion Respiratory Respiratory: Denies cough, Denies dyspnea, Denies dyspnea on exertion and Denies wheezing Gastrointestinal Gastrointestinal: Denies abdominal pain, Denies change in bowel habits, Denies diarrhea, Denies nausea and Denies vomiting Musculoskeletal Musculoskeletal: Denies arthralgias and Denies back pain Integumentary/Breasts Skin/Breast: Denies pruritus, Denies erythema, Denies rash and Denies wounds Neurologic Neurologic: Denies loss of vision and Denies weakness Allergic/Immunologic Allergic/Immunologic: Denies wheezing Patient History Medical History Cannabis abuse Chronic hepatitis Coronary artery disease involving [place] coronary artery of [place] heart without angina pectoris (~2006) Diabetes type 2, controlled Diabetes type 2, uncontrolled Diabetic peripheral neuropathy Diverticular disease Diverticulosis of large intestine (03/31/12) Essential hypertension Hepatitis C Kidney stones Mixed hyperlipidemia Paroxysmal A-fib Prostate cancer (~05/2019) Surgical History H/O heart artery stent (~2006) History of angioplasty (~12/2006) Hx of inguinal hernia surgery (~09/20/08) Hx of inguinal hernia surgery (~03/07/14) Status post laminectomy Social History marital status: unmarried,single number of children: 3 household members: none lives independently: Yes caregiver/support person: No housing: house pets and animals: No education level: high school occupational status: other 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/yazidi: None leisure activities: music, fishing and other Smoking Status: Never smoker Tobacco: How many years used: 56 Smokeless tobacco user: other quit status: has quit before second hand exposure: Yes (On farmland/Boat.) alcohol intake: former substance use type: does not use and marijuana eating out: rarely or never Type(s) of exercise: normal ROM and activity and additional Smoking Status: Never smoker alcohol intake frequency: a few times a week Substance Use Type: marijuana Exam Initial Vital Signs Initial Vital Signs: Vital Signs Temperature 96.0 F L 11/12/20 08:00 Pulse Rate 150 H 11/12/20 08:00 Respiratory Rate 18 11/12/20 08:00 Blood Pressure 195/128 H 11/12/20 08:00 Pulse Oximetry 98 11/12/20 08:00 GENERAL: Week alert 65-year-old male and in no acute distress. HEENT: Head atraumatic,EOMI, pupils reactive, face symmetric, moist mucous membranes CARDIOVASCULAR: Regular rate and rhythm without murmurs, rubs or gallops. RESPIRATORY: Breath sounds equal bilaterally, no wheezes rales or rhonchi. ABDOMEN: Soft, nontender. Normoactive bowel sounds all 4 quadrants. No guarding or rebound. EXTREMITIES: Normal range of motion, no clubbing or edema. Neurovascularly intact NEUROLOGICAL: Alert and oriented x4.Normal gait and speech. Cranial nerves II through XII grossly intact. SKIN: Warm, dry, no laceration, no petechiae, no rashes or lesions. Course Orders Ordered: ED Orders 11/12/20 11:55 EKG-12 Lead Routine 11/12/20 12:00 Magnesium Urgent NT-proBNP (BNP-Adult 18+) Urgent Troponin I Stat 11/12/20 13:20 Education, smoking cessation ONGOING 11/12/20 13:22 NM fahad perf SPECT R&S pharm Urgent 11/12/20 13:23 EC echo doppler complete Urgent 11/12/20 20:00 Troponin I Q8H Acetaminophen (Acetaminophen 325 Mg Tablet) 650 mg PO Q6HR PRN PRN Reason: Fever/Mild Pain (1-3) Dextrose (Dextrose 50 % In Water 25 Gm/50 Ml Syringe) 25 gm IV PRN PRN PRN Reason: Hypoglycemia Enoxaparin Sodium (Enoxaparin 40 Mg/0.4 Ml Syringe) 40 mg SUBCUT DAILY [facility] Sodium Chloride (Normal Saline 0.9%) 1,000 mls @ 150 mls/hr IV CONT KAITLIN Last Infusion: 11/12/20 13:55 Dose: 0 mls/hr Documented by: Admin: 11/12/20 08:14 Dose: 150 mls/hr Documented by: FIONA Potassium Chloride 40 meq/ (Sodium Chloride) 520 mls @ 130 mls/hr IV NOW ONE Stop: 11/12/20 19:58 Insulin Aspart (Insulin Aspart 100 Unit/Ml Insuln Pen) 0 unit SUBCUT [facility]; Protocol Last Admin: 11/12/20 16:54 Dose: 1 unit Documented by: JEFF Cosigned by: LALO Lisinopril (Lisinopril 20 Mg Tablet) 40 mg PO BID [facility] Metformin HCl (Metformin Hcl 500 Mg Tablet) 500 mg PO BID [facility] Metoprolol Tartrate (Metoprolol Ir 50 Mg Tablet) 50 mg PO BID [facility] Morphine Sulfate (Morphine 2 Mg/Ml Inj) 2 mg IV Q4HR PRN PRN Reason: Pain, Moderate (4-6) Last Admin: 11/12/20 14:36 Dose: 2 mg Documented by: PATRIZIA Naloxone HCl (Naloxone 0.4 Mg/Ml Vial) 0.2 mg IV Q2MIN PRN PRN Reason: Opiate Reversal Nitroglycerin (Nitroglycerin 0.4 Mg Sl Tab) 0.4 mg SL [id number] PRN PRN Reason: Chest Pain Ondansetron HCl (Ondansetron 4 Mg Odt) 4 mg PO Q6H PRN PRN Reason: Nausea Oxycodone HCl (Oxycodone Ir 10 Mg Tablet) 10 mg PO Q4H PRN PRN Reason: pain Last Admin: 11/12/20 16:45 Dose: 10 mg Documented by: JEFF Pantoprazole Sodium (Pantoprazole 40 Mg Tablet) 40 mg PO BEDTIME [facility] Simvastatin (Simvastatin 40 Mg Tablet) 40 mg PO QPM [facility] Last Admin: 11/12/20 16:45 Dose: 40 mg Documented by: JEFF Tamsulosin HCl (Tamsulosin 0.4 Mg Capsule) 0.4 mg PO QPM [facility] Last Admin: 11/12/20 16:45 Dose: 0.4 mg Documented by: JEFF Discontinued Medications Hydromorphone HCl (Hydromorphone 1 Mg Inj) 1 mg IV NOW ONE Stop: 11/12/20 11:47 Last Admin: 11/12/20 11:57 Dose: 1 mg Documented by: FIONA Magnesium Sulfate (Magnesium Sulfate) 2 gm in 50 mls @ 25 mls/hr IV NOW ONE Stop: 11/12/20 17:58 Last Admin: 11/12/20 16:44 Dose: 25 mls/hr Documented by: JEFF Leonigned by: LALO Labetalol HCl (Labetalol 20 Mg/4 Ml Syringe) 10 mg IV NOW ONE Stop: 11/12/20 11:42 Last Admin: 11/12/20 11:56 Dose: 10 mg Documented by: FIONA Lisinopril (Lisinopril 20 Mg Tablet) 40 mg PO NOW ONE Stop: 11/12/20 10:47 Last Admin: 11/12/20 10:54 Dose: 40 mg Documented by: RAFAEL Lorazepam (Lorazepam 2 Mg/Ml Inj) 1 mg IV NOW ONE Stop: 11/12/20 09:34 Last Admin: 11/12/20 09:39 Dose: 1 mg Documented by: FIONA Metoprolol Tartrate (Metoprolol Tartrate 5 Mg/5 Ml Inj) 5 mg IV NOW ONE Stop: 11/12/20 08:03 Last Admin: 11/12/20 08:14 Dose: 5 mg Documented by: FIONA Metoprolol Tartrate (Metoprolol Ir 25 Mg Tablet) 50 mg PO NOW ONE Stop: 11/12/20 08:37 Last Admin: 11/12/20 08:42 Dose: 50 mg Documented by: FIONA Non-Formulary Medication (Omeprazole) 40 mg PO BEDTIME [facility] Ondansetron HCl (Ondansetron 4 Mg/2 Ml Inj) 4 mg IV NOW ONE Stop: 11/12/20 08:36 Last Admin: 11/12/20 08:38 Dose: 4 mg Documented by: FIONA Oxycodone HCl (Oxycodone Ir 5 Mg Tablet) 10 mg PO Q4H PRN PRN Reason: pain Pantoprazole Sodium (Pantoprazole 40 Mg Vial) 40 mg IV NOW ONE Stop: 11/12/20 09:34 Last Admin: 11/12/20 09:40 Dose: 40 mg Documented by: FIONA Vital Signs Vital signs: Vital Signs - 8 hr 11/12/20 10:30 11/12/20 10:54 11/12/20 11:00 Temperature Pulse Rate 60 62 63 Respiratory Rate 20 17 Blood Pressure 214/111 H 214/111 H 196/112 H Pulse Oximetry 96 96 11/12/20 11:30 11/12/20 11:34 11/12/20 11:56 Temperature Pulse Rate 58 L 58 L 60 Respiratory Rate 16 Blood Pressure 211/102 H 207/109 H 207/109 H Pulse Oximetry 96 97 11/12/20 12:00 11/12/20 12:05 11/12/20 12:29 Temperature 99.6 F Pulse Rate 57 L 69 83 Respiratory Rate 20 12 16 Blood Pressure 204/104 H 204/104 H 133/85 Pulse Oximetry 98 97 95 11/12/20 12:30 11/12/20 12:36 11/12/20 12:39 Temperature Pulse Rate 83 80 80 Respiratory Rate 16 19 Blood Pressure 119/85 119/85 Pulse Oximetry 97 96 11/12/20 13:00 11/12/20 13:29 11/12/20 13:30 Temperature Pulse Rate 72 70 Respiratory Rate 13 13 Blood Pressure 126/80 145/90 H Pulse Oximetry 96 98 MDM - Arrhythmia/Palpitations Lab Data Attestation: I reviewed the patient's lab results. Result diagrams: 11/12/20 08:30 11/12/20 08:30 Labs: Lab Results 11/12/20 11/12/20 11/12/20 Range/Units 08:30 08:30 08:30 WBC 6.5 (4.5-11.0) X10^3/uL RBC 5.01 (4.5-5.9) X10^6/uL Hgb 16.6 (13.5-17.5) g/dL Hct 47.5 (41-53) % MCV 94.8 (80-100) fL MCH 33.2 (26-34) PG MCHC 35.0 (30-36) % RDW 13.1 (11.6-14.8) % Plt Count 104 L (150-400) X10^3/uL Neut % (Auto) 69.8 (50-75) % Lymph % (Auto) 13.2 L (25-40) % [place] % (Auto) 15.9 H (3-14) % Eos % (Auto) 0.4 L (2-4) % Baso % (Auto) 0.7 (0-2) % Neut # (Auto) 4500 (6368-7045) /uL Lymph # (Auto) 900 L (9030-0243) /uL [place] # (Auto) 1000 H (0-900) /uL Eos # (Auto) 0 (0-450) /uL Baso # (Auto) 0 (0-100) /uL PT 11.6 (10.1-12.7) SECONDS INR 1.0 (0.9-1.3) APTT 26 L (26.4-36.2) SECONDS Sodium 136 L (137-145) mmol/L Potassium 3.0 L (3.4-5.1) mmol/L Chloride 99 (98-107) mmol/L Carbon Dioxide 27 (22-32) mmol/L BUN 29 H (9-20) mg/dL Creatinine 0.50 L (0.66-1.25) mg/dL Estimated GFR > 60.0 (>60) mL/min BUN/Creatinine Ratio 58.0 H (6-22) Glucose 249 H (80-110) mg/dL Calcium 9.6 (8.4-10.2) mg/dL Magnesium (1.6-2.3) mg/dL Total Bilirubin 1.6 H (0.2-1.3) mg/dL AST 580 H (17-59) IU/L ALT 652 H (<50) IU/L Alkaline Phosphatase 129 H (38-126) U/L Total Creatine Kinase 45 L (55-170) U/L CK-MB (CK-2) TNP CK-MB (CK-2) Rel Index TNP Troponin I 0.018 (0.01-0.034) ng/mL NT-Pro-B Natriuret Pep (<125) pg/mL Total Protein 7.8 (6.3-8.2) g/dL Albumin 4.2 (3.5-5.0) g/dL Globulin 3.6 (1.7-4.1) g/dL Albumin/Globulin Ratio 1.2 (1.0-2.8) Lipase 74 (23-300) U/L Urine Color Urine Appearance Urine pH (4.5-8.0) Ur Specific [place] (1.000-1.035) Urine Protein (Negative) Urine Glucose (UA) (Negative) g/dL Urine Ketones (NEGATIVE) Urine Occult Blood (Negative) Urine Nitrate (Negative) Urine Bilirubin (NEGATIVE) Urine Urobilinogen (0.2) E.U./dL Ur Leukocyte Esterase (NEGATIVE) Urine RBC (0-5/HPF) Urine WBC (0-5/HPF) Urine Bacteria (None) Ur Culture Indicated? Micro UA Comment U Opiates 300ng/mL cut (Negative) Ur Oxycodone Screen (Negative) Urine Methadone Screen (Negative) Ur Barbiturates Screen (Negative) U Tricyclic Antidepress (Negative) Ur Phencyclidine Scrn (Negative) Ur Amphetamines Screen (Negative) U Methamphetamines Scrn (Negative) Ur MDMA Scrn (Ecstasy) (Negative) U Benzodiazepines Scrn (Negative) Urine Cocaine Screen (Negative) U Marijuana (THC) Screen (Negative) 11/12/20 11/12/20 11/12/20 Range/Units 08:42 08:42 12:00 WBC (4.5-11.0) X10^3/uL RBC (4.5-5.9) X10^6/uL Hgb (13.5-17.5) g/dL Hct (41-53) % MCV (80-100) fL MCH (26-34) PG MCHC (30-36) % RDW (11.6-14.8) % Plt Count (150-400) X10^3/uL Neut % (Auto) (50-75) % Lymph % (Auto) (25-40) % [place] % (Auto) (3-14) % Eos % (Auto) (2-4) % Baso % (Auto) (0-2) % Neut # (Auto) (8847-5359) /uL Lymph # (Auto) (3081-6151) /uL [place] # (Auto) (0-900) /uL Eos # (Auto) (0-450) /uL Baso # (Auto) (0-100) /uL PT (10.1-12.7) SECONDS INR (0.9-1.3) APTT (26.4-36.2) SECONDS Sodium (137-145) mmol/L Potassium (3.4-5.1) mmol/L Chloride (98-107) mmol/L Carbon Dioxide (22-32) mmol/L BUN (9-20) mg/dL Creatinine (0.66-1.25) mg/dL Estimated GFR (>60) mL/min BUN/Creatinine Ratio (6-22) Glucose (80-110) mg/dL Calcium (8.4-10.2) mg/dL Magnesium (1.6-2.3) mg/dL Total Bilirubin (0.2-1.3) mg/dL AST (17-59) IU/L ALT (<50) IU/L Alkaline Phosphatase (38-126) U/L Total Creatine Kinase (55-170) U/L CK-MB (CK-2) CK-MB (CK-2) Rel Index Troponin I 0.044 H (0.01-0.034) ng/mL NT-Pro-B Natriuret Pep (<125) pg/mL Total Protein (6.3-8.2) g/dL Albumin (3.5-5.0) g/dL Globulin (1.7-4.1) g/dL Albumin/Globulin Ratio (1.0-2.8) Lipase (23-300) U/L Urine Color Yellow Urine Appearance Clear Urine pH 6.5 (4.5-8.0) Ur Specific [place] 1.015 (1.000-1.035) Urine Protein 1+ H (Negative) Urine Glucose (UA) Trace H (Negative) g/dL Urine Ketones 1+ H (NEGATIVE) Urine Occult Blood Trace-intact (Negative) Urine Nitrate Negative (Negative) Urine Bilirubin Negative (NEGATIVE) Urine Urobilinogen 0.2 (0.2) E.U./dL Ur Leukocyte Esterase Negative (NEGATIVE) Urine RBC None seen (0-5/HPF) Urine WBC None seen (0-5/HPF) Urine Bacteria None seen (None) Ur Culture Indicated? Cult not indicated Micro UA Comment Microscopic normal U Opiates 300ng/mL cut Negative (Negative) Ur Oxycodone Screen Positive H (Negative) Urine Methadone Screen Negative (Negative) Ur Barbiturates Screen Negative (Negative) U Tricyclic Antidepress Negative (Negative) Ur Phencyclidine Scrn Negative (Negative) Ur Amphetamines Screen Negative (Negative) U Methamphetamines Scrn Negative (Negative) Ur MDMA Scrn (Ecstasy) Negative (Negative) U Benzodiazepines Scrn Negative (Negative) Urine Cocaine Screen Negative (Negative) U Marijuana (THC) Screen Positive H (Negative) 11/12/20 Range/Units 12:00 WBC (4.5-11.0) X10^3/uL RBC (4.5-5.9) X10^6/uL Hgb (13.5-17.5) g/dL Hct (41-53) % MCV (80-100) fL MCH (26-34) PG MCHC (30-36) % RDW (11.6-14.8) % Plt Count (150-400) X10^3/uL Neut % (Auto) (50-75) % Lymph % (Auto) (25-40) % [place] % (Auto) (3-14) % Eos % (Auto) (2-4) % Baso % (Auto) (0-2) % Neut # (Auto) (9129-7195) /uL Lymph # (Auto) (4583-7196) /uL [place] # (Auto) (0-900) /uL Eos # (Auto) (0-450) /uL Baso # (Auto) (0-100) /uL PT (10.1-12.7) SECONDS INR (0.9-1.3) APTT (26.4-36.2) SECONDS Sodium (137-145) mmol/L Potassium (3.4-5.1) mmol/L Chloride (98-107) mmol/L Carbon Dioxide (22-32) mmol/L BUN (9-20) mg/dL Creatinine (0.66-1.25) mg/dL Estimated GFR (>60) mL/min BUN/Creatinine Ratio (6-22) Glucose (80-110) mg/dL Calcium (8.4-10.2) mg/dL Magnesium 1.5 L (1.6-2.3) mg/dL Total Bilirubin (0.2-1.3) mg/dL AST (17-59) IU/L ALT (<50) IU/L Alkaline Phosphatase (38-126) U/L Total Creatine Kinase (55-170) U/L CK-MB (CK-2) CK-MB (CK-2) Rel Index Troponin I (0.01-0.034) ng/mL NT-Pro-B Natriuret Pep 296 H (<125) pg/mL Total Protein (6.3-8.2) g/dL Albumin (3.5-5.0) g/dL Globulin (1.7-4.1) g/dL Albumin/Globulin Ratio (1.0-2.8) Lipase (23-300) U/L Urine Color Urine Appearance Urine pH (4.5-8.0) Ur Specific [place] (1.000-1.035) Urine Protein (Negative) Urine Glucose (UA) (Negative) g/dL Urine Ketones (NEGATIVE) Urine Occult Blood (Negative) Urine Nitrate (Negative) Urine Bilirubin (NEGATIVE) Urine Urobilinogen (0.2) E.U./dL Ur Leukocyte Esterase (NEGATIVE) Urine RBC (0-5/HPF) Urine WBC (0-5/HPF) Urine Bacteria (None) Ur Culture Indicated? Micro UA Comment U Opiates 300ng/mL cut (Negative) Ur Oxycodone Screen (Negative) Urine Methadone Screen (Negative) Ur Barbiturates Screen (Negative) U Tricyclic Antidepress (Negative) Ur Phencyclidine Scrn (Negative) Ur Amphetamines Screen (Negative) U Methamphetamines Scrn (Negative) Ur MDMA Scrn (Ecstasy) (Negative) U Benzodiazepines Scrn (Negative) Urine Cocaine Screen (Negative) U Marijuana (THC) Screen (Negative) Imaging Data Chest x-ray: Radiologist's Impresson: PROCEDURE: XR CHEST 1V INDICATIONS: chest pain TECHNIQUE: One view of the chest was acquired. COMPARISON: [facility], , XR CHEST 1V, 11/07/2019, 9:42. FINDINGS: Surgical changes and devices: None. Lungs and pleura: Lungs are clear. No pleural effusions or pneumothorax. Mediastinum: Mediastinal contours appear normal. Heart size is normal. Bones and chest wall: No suspicious bony lesions. Overlying soft tissues appear unremarkable. IMPRESSION: No acute cardiopulmonary pathology. Dictated by: Hosea Vogel M.D. on 11/12/2020 at 9:13 Approved by: Hosea Vogel M.D. on 11/12/2020 at 9:13 ECG Data Attestation: I personally reviewed and interpreted this ECG as follows: Prior ECG tracings: available for review Interpretation: EKG 1. Atrial flutter rate [address] changes EKG 2. Sinus rhythm no ST changes do not agree with acute and ice computer reads. Artifact noted EKG 3. Sinus rhythm rate 63 p.r. interval 120 QRS 74 QTC 462 no changes from prior is EKG 4. Sinus rhythm rate [address] changes MDM Narrative Medical decision making narrative: Patient initially in atrial flutter with heart rate in the 130s. He is given 1 dose of metoprolol which seems to help temporarily and then he went back into atrial flutter he is given another dose which again seems to help. However she is still feeling nauseous and complaining of abdominal pain. He CT 2 days ago and frequently has CTs for his chronic ongoing abdominal pain and nausea. She also has history of chronic cannabis use may be contributing to his vomiting pain. Patient blood pressure does seem to be quite elevated despite multiple doses of metoprolol. He is also given his home hypertension medication of lisinopril. He seems to be in quite a bit of abdominal pain he is given a dose of Dilaudid and an additional dose of labetalol which does bring his blood pressure down to an acceptable level. He does not have significant ongoing chest pain. He CT 2 days ago which did not show any abnormality he was noted to be hypertensive during that visit as well. Differential diagnosis dissection however I think unlikely patient just had CT and has chronic abdominal pain. Blood pressure improved to soon his pain was controlled. Repeat troponin is indeterminate. Possibly from paroxysmal atrial fibrillation versus other. The pain and blood pressure are much better controlled no EKG changes [address] Ochoa, updated on patient's symptoms [facility] Departure Patient Disposition: Admitted as Observation Clinical Impression: Paroxysmal A-fib, Acute hypokalemia Hypertension Qualifiers: Hypertension type: essential hypertension Qualified Code(s): I10 - Essential (primary) hypertension Abdominal pain Qualifiers: Abdominal location: generalized Qualified Code(s): R10.84 - Generalized abdominal pain Admit Date/Time: 11/12/20 13:54 Admit Provider: Odin Ochoa
[2020-11-12] MEDS: METOPROLOL TARTRATE 5 MG/5 ML INJ IV (08:14)
[2020-11-12] MEDS: SODIUM CHLORIDE 0.9% 1,000 ML 150 ML IV (08:14)
[2020-11-12] MEDS: ONDANSETRON 4 MG/2 ML INJ IV (08:38)
[2020-11-12] MEDS: METOPROLOL IR 25 MG TABLET 50 MG PO (08:42)
[2020-11-12 08:43] LABS: Bacteria Urine None Seen; RBC Urine None Seen (0-5/HPF); WBC Urine None Seen (0-5/HPF)
[2020-11-12 08:44] LABS: Add Manual Diff / Slide Review NO; Basophils Absolute Auto 0 /uL (0-100); Basophils Percent Auto 0.7 % (0-2); Eosinophils Absolute Auto 0 /uL (0-450); Eosinophils Percent Auto 0.4 % (2-4); Hematocrit 47.5 % (41-53); Hemoglobin 16.6 g/dL (13.5-17.5); Lymphocytes Absolute Auto 900 /uL (1100-4500); Lymphocytes Percent Auto 13.2 % (25-40); Mean Corpuscular Hemoglobin 33.2 PG (26-34); Mean Corpuscular Volume 94.8 fL (80-100); Monocytes Absolute Auto 1000 /uL (0-900); Monocytes Percent Auto 15.9 % (3-14); Neutrophils Absolute Auto 4500 /uL (1500-7000); Neutrophils Percent Auto 69.8 % (50-75); Platelet Count 104 X10^3/uL (150-400); Red Blood Cell Count 5.01 X10^6/uL (4.5-5.9); Red Cell Distribution Width 13.1 % (11.6-14.8); White Blood Cell Count 6.5 X10^3/uL (4.5-11.0)
[2020-11-12 08:46] LABS: Appearance Urine UA CLEAR; Bilirubin Urine UA NEGATIVE (NEGATIVE); Color Urine UA YELLOW; Glucose Urine UA TRACE g/dL (Negative); Ketones Urine UA 1+ (NEGATIVE); Leukocyte Esterase Urine UA NEGATIVE (NEGATIVE); Nitrite Urine UA NEGATIVE (Negative); Occult Blood Urine UA TRACE-INTACT (Negative); Protein Urine UA 1+ (Negative); Specific Gravity Urine UA 1.015 (1.000-1.035); Urobilinogen Urine UA 0.2 E.U./dL (0.2); pH Urine UA 6.5 (4.5-8.0)
[2020-11-12 08:51] LABS: Prothrombin Time 11.6 SECONDS (10.1-12.7)
[2020-11-12 08:51] LABS: UR Morphine/Opiate cutoff 300 Negative (Negative); Ur Creatinine Normal (Normal); Ur Specific Gravity Normal (Normal); Urine Amphetamines Negative (Negative); Urine Barbiturates Negative (Negative); Urine Benzodiazepines Negative (Negative); Urine Cocaine Negative (Negative); Urine MDMA Negative (Negative); Urine Methadone Negative (Negative); Urine Methamphetamines Negative (Negative); Urine Oxycodone Positive (Negative); Urine Phencyclidine Negative (Negative); Urine Tetrahydrocannabinol Positive (Negative); Urine Tricyclic Antidepressant Negative (Negative); Urine pH Normal (Normal)
[2020-11-12 08:54] LABS: PTT Partial Thromboplastin Tim 26 SECONDS (26.4-36.2)
[2020-11-12 08:55] LABS: Culture Indicated Urine Cult Not Indicated; Urine Comments Microscopic Normal
[2020-11-12 08:56] LABS: Alanine Aminotransferase 652 IU/L (<50); Albumin 4.2 g/dL (3.5-5.0); Albumin Globulin Ratio 1.2 (1.0-2.8); Alkaline Phosphatase 129 U/L (38-126); Aspartate Aminotransferase 580 IU/L (17-59); Bilirubin Total 1.6 mg/dL (0.2-1.3); Blood Urea Nitrogen 29 mg/dL (9-20); Calcium 9.6 mg/dL (8.4-10.2); Carbon Dioxide 27 mmol/L (22-32); Chloride 99 mmol/L (98-107); Creatine Kinase 45 U/L (55-170); Estimated Glomerular Filt Rate > 60.0 mL/min (>60); Globulin 3.6 g/dL (1.7-4.1); Glucose 249 mg/dL (80-110); HEMOLYSIS < 15 (0-50); Lipase 74 U/L (23-300); Sodium 136 mmol/L (137-145); Total Protein 7.8 g/dL (6.3-8.2)
[2020-11-12 09:08] LABS: Troponin I 0.018 ng/mL (0.01-0.034)
[2020-11-12] MEDS: LORazepam 2 MG/ML INJ 1 MG IV (09:39)
[2020-11-12] MEDS: PANTOPRAZOLE 40 MG VIAL IV (09:40)
[2020-11-12] MEDS: lisinopriL 20 MG TABLET 40 MG PO ×2 (10:54→20:51)
[2020-11-12] MEDS: LABETALOL 20 MG/4 ML SYRINGE 10 MG IV (11:56)
[2020-11-12] MEDS: HYDROMORPHONE 1 MG INJ IV (11:57)
[2020-11-12 12:41] LABS: Troponin I 0.044 ng/mL (0.01-0.034)
--- NOTE | 2020-11-12 12:42 | PC.NURSE ---
client solutions manager Lisandra [phone]
--- NOTE | 2020-11-12 13:22 | DI.NM.S_ITS ---
PROCEDURE: NM FARHAN PERF SPECT R&S PHARM Rest and pharmacological stress myocardial perfusion SPECT with gated imaging and ejection fraction RADIOPHARMACEUTICAL: 11.6 mCi Tc-99m tetrafosmin IV at rest and 24.6 mCi Tc-99m tetrafosmin IV at peak effect of pharmacological stress. [id number] was performed. INDICATIONS: chest pain eleveted troponin TECHNIQUE: Radiopharmaceutical was injected at peak stress test, and also at rest. SPECT images were obtained. SPECT myocardial perfusion images were displayed in short axis, horizontal long axis, and vertical long axis views. Gated images were reviewed using [employer] software. COMPARISON: None. CARDIAC STRESS: A pharmacologic stress test was performed under the supervision of an attending staff, using an infusion of lexiscan 0.4mg IV X1. Hemodynamic data: There is normal blood pressure and heart rate response to pharmacologic stress. Symptoms: The patient denied anginal chest pain. Aminophylline: none EKG: No diagnostic changes of ischemia; no ectopy. FINDINGS: Raw data: There is good myocardial uptake of radiotracer. No significant motion artifacts. Vxhl-eg-zlvjg ratio is 0.31 (normal is less than 0.38 for tetrafosmin tracer). Left ventricle function: Gated images demonstrate normal left ventricular wall thickening. No segmental wall motion abnormalities. No transient ischemic dilation; TID is 1.10 (normal less than 1.3). Left ventricle resting end diastolic volume is 80 mL. Left ventricle stress ejection fraction is 72%; normal range is above 45%. Myocardial perfusion: There is moderately intense fixed defect in the inferior wall, consistent with prior infarction. No ischemia. Prone images not obtained due to patient being nauseated. IMPRESSION: Abnormal nuclear stress test consistent with prior infarction. No ischemia. 1) There is moderately intense fixed defect in the inferior wall, consistent with prior infarction (SSS 12). No ischemia. Prone images not obtained due to patient being nauseated. 2) Normal left ventricular size, wall motion, and systolic function (EF post stress 72%). 3) No ECG evidence of ischemia. 4) No angina during the study. 5) Compared to the nuclear stress test done 08/03/2019, no significant change. Dictated by: Lukasz Hansen MD on 11/14/2020 at 9:15 Approved by: Lukasz Hansen MD on 11/14/2020 at 9:18
--- NOTE | 2020-11-12 13:23 | DI.ECHO.S_ITS ---
[place] [facility]---------+ [facility] +---------+ : : [address] : : : : [id number] : : : : Phone: [phone]+ Echocardiogram Report + + :Name: RAFIA SNIDER Study Date: 11/13/2020 Height: 67 in : :[facility] ReadingLocation: Weight: 130 lb : : Gender: Male BSA: 1.7 m2 : :: 1955 Age: 65 yrs BP: 157/95 mmHg: :Reason For Study: CHEST PAIN : :Ordering Physician: CHAPARRO, : :SANYA Performed By: Hannah Jolley : :Referring: SANYA MAYFIELD : + + Interpretation Summary 1) Normal left ventricular thickness and size with normal systolic function (EF 50-55%). 2) Septal motion is consistent with conduction abnormality. 3) Normal right ventricular size and function. 4) No significant valvular abnormalities. 5) Compared to the Echo done 08/03/2019, LVEF has decreased from 60-65% to 50- 55% on this study. Procedure: A two-dimensional transthoracic echocardiogram with color flow and Doppler was performed. The study quality was technically adequate. Comparison is made with the echocardiogram of 08/03/2019. The patient was in sinus bradycardia with heart rates between 57-63 bpm during the exam. Left Ventricle: The left ventricle is normal in size and wall thickness. The ejection fraction is estimated to be 50-55%. Left ventricular systolic function is low normal. Septal motion is consistent with conduction abnormality. Right Ventricle: The right ventricle is normal in size and function. Atria: The left atrial size is normal. Right atrial size is normal. There is no Doppler evidence for an interatrial shunt. Mitral Valve: The mitral valve is normal in structure and function. There is mild mitral regurgitation. Aortic Valve: The aortic valve is mildly calcified. There is no aortic valve stenosis. No aortic regurgitation is present. Tricuspid Valve: The tricuspid valve is normal in structure and function. There is mild tricuspid regurgitation. The right ventricular systolic pressure is estimated to be at least 27 mmHg based on an estimated right atrial pressure of 3 mm Hg. Pulmonic Valve: The pulmonic valve is not well seen, but is grossly normal. There is no pulmonic valvular regurgitation. Great Vessels: The aortic root is mildly dilated. The dimensions of the ascending aorta are normal. The IVC is of normal diameter and collapses greater than 50% with a sniff. This suggests a low right atrial pressure of 3 mm Hg. Pericardium/ Pleura There is no pericardial effusion. There is no pleural effusion. MMode/2D Measurements & Calculations LVIDd: 4.5 cm LVOT diam: 2.4 cm LVIDs: 3.5 cm Ao root diam: 4.0 cm FS: 22.8 % Ao Arch Diam (Prox Trans): 3.1 cm EPSS: 0.99 cm IVSd: 0.98 cm LVPWd: 0.90 cm LV chi. diameter/BSA (cm/m^2): 2.7 LV sys. diameter/BSA (cm/m^2): 2.1 LA A2 area: 16.9 cm2 RA long axis: 4.7 cm LA A4 area: 10.6 cm2 RA area: 11.6 cm2 LA length (vol): 3.7 cm RA vol: 24.4 ml LA vol: 40.8 ml RA : 14.5 ml/m2 LA vol index: 24.3 ml/m2 IVC diam: 1.2 cm RVD1 (basal): 3.2 cm TAPSE: 1.9 cm Doppler Measurements & Calculations Ao V2 max: 108.3 cm/sec LVOT Max Miah: 87.9 cm/sec Ao V2 mean: 77.4 cm/sec LV V1 max P.1 mmHg Ao max P.7 mmHg LV V1 VTI: 17.1 cm Ao mean P.6 mmHg ZEUS(I,D): 3.2 cm2 Ao V2 VTI: 23.6 cm ZEUS(V,D): 3.6 cm2 sev ratio: 0.73 ZEUS indexed to BSA (cm^2/m^2): 1.9 MV E max miah: 60.5 cm/sec TR max miah: 243.6 cm/sec MV A max miah: 88.3 cm/sec TR max P.7 mmHg MV E/A: 0.69 PA V2 max: 71.2 cm/sec Med Peak E' Miah: 5.4 cm/sec PA V2 mean: 53.0 cm/sec E/E' med: 11.3 PA mean P.2 mmHg Lat Peak E' Miah: 7.4 cm/sec PA pr(Accel): 19.1 mmHg E/E' lat: 8.1 E/e' average: 9.7 MV dec time: 0.27 sec SV(LVOT): 75.0 ml Reading Physician:08:51 AM
--- NOTE | 2020-11-12 13:27 | PM.HP.1 ---
History of Present Illness History of Present Illness Date Patient Seen: 11/12/20 Time Patient Seen: 13:43 Chief complaint: Heart Racing Narrative: 65-year-old male with a complicated medical history coronary artery disease status post stenting diabetes type 2 chronic hepatitis diverticulosis hypertension chronic hepatitis-C hyperlipidemia approximates well atrial fibrillation and prostate cancer with current hormonal treatment and anticipating radiation treatment. Patient was in the emergency few days ago with abdominal pain diarrhea and discomfort. He says after the fact he relates that to a bad batch and peaches. Says he was doing pretty well until this morning. Has he woke up and his heart rate went to [address] his blood pressure went up to 200. He said he had 2 thoughts either laying in the bathtub and or calling 911 and come into the hospital. He presented the hospital is here with his . On evaluation in the emergency department patient was tachycardic and hypertensive. His found to be in atrial fibrillation with rapid ventricular response. Patient underwent laboratory testing and treatment for his atrial fibrillation including blood pressure management beta-blockade. Patient's heart rate and blood pressure now under control. Laboratory testing was initially evaluated and fairly consistent with his routine abnormal blood tests. Had a hard time getting his blood pressure and heart rate under control and after 4 hours a repeated some additional lab testing and showed that his troponin was elevated initially was normal. I was contacted to admit and evaluate the patient. On my exam in the emergency room. Patient is resting comfortably in bed. His is at the bedside. He has a difficult time providing a clear consistent history he says he feels better now. Says he has chronic chest pain. Chronic abdominal pain. He had stents placed. Had a stress test he thinks just a few months ago in on review of his record it looks like it has been over a year as well as an echocardiogram. Based on his abnormal lab testing is significant history of heart disease. Thought it best evaluate him in the hospital for further management. Patient does mention that today was post have radiation seeds placed in his prostate for his prostate cancer. Patient History Medical History Cannabis abuse Chronic hepatitis Coronary artery disease involving tanacross coronary artery of tanacross heart without angina pectoris (~2006) Diabetes type 2, controlled Diabetes type 2, uncontrolled Diabetic peripheral neuropathy Diverticular disease Diverticulosis of large intestine (03/31/12) Essential hypertension Hepatitis C Kidney stones Mixed hyperlipidemia Paroxysmal A-fib Prostate cancer (~05/2019) Surgical History H/O heart artery stent (~2006) History of angioplasty (~12/2006) Hx of inguinal hernia surgery (~09/20/08) Hx of inguinal hernia surgery (~03/07/14) Status post laminectomy Family & Social History Social History: household members none lives independently Yes caregiver/support person No Safety & Behavioral: Feels Safe in Current Yes Environment Been Physically Hurt or No Threatened By a Person Tobacco & Substance use: Smoking Status Never smoker alcohol intake former alcohol intake frequency a few times a week Substance Use Type marijuana Meds Home Medications and Allergies Home Medications Medication Instructions Recorded Confirmed Type cyclobenzaprine 5 mg tablet 5 mg PO TID PRN tab 03/20/19 11/12/20 History ondansetron 4 mg disintegrating 4 mg PO Q6H PRN #30 tab 06/19/19 11/12/20 Rx tablet tamsulosin 0.4 mg PO QPM 08/15/19 11/12/20 History aspirin 81 mg PO QAM 11/06/19 11/12/20 History budesonide 3 mg 6 mg PO QAM #180 each 12/04/19 11/12/20 Rx capsule,delayed,extended release metoprolol tartrate 50 mg tablet 50 mg PO BID tab 03/04/20 11/12/20 History blood sugar diagnostic #100 each 05/13/20 11/12/20 Rx blood-glucose meter #1 each 05/13/20 11/12/20 Rx lancets 30 gauge #100 each 05/13/20 11/12/20 Rx metformin 500 mg tablet 500 mg PO BID #180 tab 05/26/20 11/12/20 Rx simvastatin 40 mg tablet 40 mg PO QPM #90 tab 08/12/20 11/12/20 Rx omeprazole 40 mg capsule,delayed 40 mg PO BID #180 cap 09/04/20 11/12/20 Rx release oxycodone 5 mg tablet 5 - 10 mg PO Q4H PRN #360 tab 09/15/20 11/12/20 Rx Disabled Parking #1 ea 10/13/20 11/12/20 Rx lisinopril 40 mg tablet 40 mg PO BID #180 tab 11/04/20 11/12/20 Rx Allergies Allergy/AdvReac Type Severity Reaction Status Date / Time No Known Drug Allergies Allergy Verified 11/10/20 09:26 Exam Vital Signs (past 8 hours): - 11/12/20 08:00 11/12/20 08:07 11/12/20 08:08 Temperature 96.0 F L Pulse Rate 150 H 142 H 138 H Respiratory Rate 18 22 24 Blood Pressure 195/128 H 195/128 H Pulse Oximetry 98 98 98 11/12/20 08:30 11/12/20 08:33 11/12/20 08:37 Temperature Pulse Rate 118 H 96 H 61 Respiratory Rate 14 24 Blood Pressure 251/149 H 215/127 H Pulse Oximetry 96 97 98 11/12/20 08:39 11/12/20 09:00 11/12/20 09:01 Temperature Pulse Rate 72 58 L 63 Respiratory Rate 28 H 23 Blood Pressure 214/119 H 195/99 H Pulse Oximetry 96 97 97 11/12/20 09:30 11/12/20 09:39 11/12/20 09:43 Temperature Pulse Rate 75 61 62 Respiratory Rate 19 24 16 Blood Pressure 212/113 H 224/123 H 214/113 H Pulse Oximetry 99 98 98 11/12/20 09:50 11/12/20 10:00 11/12/20 10:30 Temperature Pulse Rate 70 59 L 60 Respiratory Rate 23 13 20 Blood Pressure 200/125 H 212/96 H 214/111 H Pulse Oximetry 99 98 96 11/12/20 10:54 11/12/20 11:00 11/12/20 11:30 Temperature Pulse Rate 62 63 58 L Respiratory Rate 17 16 Blood Pressure 214/111 H 196/112 H 211/102 H Pulse Oximetry 96 96 11/12/20 11:34 11/12/20 11:56 11/12/20 12:00 Temperature 99.6 F Pulse Rate 58 L 60 57 L Respiratory Rate 20 Blood Pressure 207/109 H 207/109 H 204/104 H Pulse Oximetry 97 98 11/12/20 12:39 Temperature Pulse Rate 80 Respiratory Rate Blood Pressure 119/85 Pulse Oximetry Oxygen Delivery Method Room Air Narrative Exam Narrative: Gen.: Alert and oriented seems to be resting comfortably maybe a little sedated from pain medication his help with the history. HEENT: NCAT PERRLA tympanic membranes are clear nares are patent oral mucosa is moist no tonsillar hypertrophy neck is supple without lymphadenopathy no thyroid enlargement. Cardio: S1-S2 regular rate and rhythm no murmurs appreciated. Respiratory: Lungs are clear to auscultation no wheezes or crackles normal respiratory effort. Abdomen: Soft diffuse mild tenderness no rebound or guarding no liver spleen enlargement no appreciable hernias Extremities: Full range of motion no appreciable weakness no cyanosis or edema. Neurologic: Grossly intact. Objective Labs Result Diagrams: 11/12/20 08:30 11/12/20 08:30 Labs: Laboratory Results - last 24 hr 11/12/20 11/12/20 11/12/20 08:30 08:30 08:30 WBC 6.5 RBC 5.01 Hgb 16.6 Hct 47.5 MCV 94.8 MCH 33.2 MCHC 35.0 RDW 13.1 Plt Count 104 L Neut % (Auto) 69.8 Lymph % (Auto) 13.2 L [place] % (Auto) 15.9 H Eos % (Auto) 0.4 L Baso % (Auto) 0.7 Neut # (Auto) 4500 Lymph # (Auto) 900 L [place] # (Auto) 1000 H Eos # (Auto) 0 Baso # (Auto) 0 PT 11.6 INR 1.0 APTT 26 L Sodium 136 L Potassium 3.0 L Chloride 99 Carbon Dioxide 27 BUN 29 H Creatinine 0.50 L Estimated GFR > 60.0 BUN/Creatinine Ratio 58.0 H Glucose 249 H Calcium 9.6 Total Bilirubin 1.6 H AST 580 H ALT 652 H Alkaline Phosphatase 129 H Total Creatine Kinase 45 L CK-MB (CK-2) TNP CK-MB (CK-2) Rel Index TNP Troponin I 0.018 Total Protein 7.8 Albumin 4.2 Globulin 3.6 Albumin/Globulin Ratio 1.2 Lipase 74 Urine Color Urine Appearance Urine pH Ur Specific [place] Urine Protein Urine Glucose (UA) Urine Ketones Urine Occult Blood Urine Nitrate Urine Bilirubin Urine Urobilinogen Ur Leukocyte Esterase Urine RBC Urine WBC Urine Bacteria Ur Culture Indicated? Micro UA Comment U Opiates 300ng/mL cut Ur Oxycodone Screen Urine Methadone Screen Ur Barbiturates Screen U Tricyclic Antidepress Ur Phencyclidine Scrn Ur Amphetamines Screen U Methamphetamines Scrn Ur MDMA Scrn (Ecstasy) U Benzodiazepines Scrn Urine Cocaine Screen U Marijuana (THC) Screen 11/12/20 11/12/20 11/12/20 08:42 08:42 12:00 WBC RBC Hgb Hct MCV MCH MCHC RDW Plt Count Neut % (Auto) Lymph % (Auto) [place] % (Auto) Eos % (Auto) Baso % (Auto) Neut # (Auto) Lymph # (Auto) [place] # (Auto) Eos # (Auto) Baso # (Auto) PT INR APTT Sodium Potassium Chloride Carbon Dioxide BUN Creatinine Estimated GFR BUN/Creatinine Ratio Glucose Calcium Total Bilirubin AST ALT Alkaline Phosphatase Total Creatine Kinase CK-MB (CK-2) CK-MB (CK-2) Rel Index Troponin I 0.044 H Total Protein Albumin Globulin Albumin/Globulin Ratio Lipase Urine Color Yellow Urine Appearance Clear Urine pH 6.5 Ur Specific [place] 1.015 Urine Protein 1+ H Urine Glucose (UA) Trace H Urine Ketones 1+ H Urine Occult Blood Trace-intact Urine Nitrate Negative Urine Bilirubin Negative Urine Urobilinogen 0.2 Ur Leukocyte Esterase Negative Urine RBC None seen Urine WBC None seen Urine Bacteria None seen Ur Culture Indicated? Cult not indicated Micro UA Comment Microscopic normal U Opiates 300ng/mL cut Negative Ur Oxycodone Screen Positive H Urine Methadone Screen Negative Ur Barbiturates Screen Negative U Tricyclic Antidepress Negative Ur Phencyclidine Scrn Negative Ur Amphetamines Screen Negative U Methamphetamines Scrn Negative Ur MDMA Scrn (Ecstasy) Negative U Benzodiazepines Scrn Negative Urine Cocaine Screen Negative U Marijuana (THC) Screen Positive H Assessment & Plan Assessment & Plan narrative: Coronary artery disease with elevated troponin without current EKG changes probable type 2 myocardial infarction due to his atrial fibrillation high blood pressure rapid ventricular response. Patient will be admitted to the hospital for further evaluation workup he will have serial cardiac enzymes. He is not having a lot of chest pain now. Will monitor with another EKG. Patient will have an echocardiogram to make sure that there are no additional wall motion abnormalities. Will be provided morphine if needed for severe chest pain and nitroglycerin. He has been about a year since his last cardiac stress test. This seems appropriate to order at this time. Will be placed on aspirin beta-ky statin. Atrial fibrillation with rapid ventricular response. Patient was admitted with atrial fibrillation and rapid ventricular response. Patient is in normal sinus rhythm. Will be continued on his beta-ky will watch closely as heart rate. Twelve an echocardiogram to look at the atrial size. His chads 2 Vasc score is 3 patient would be a candidate for chronic anticoagulation due to his atrial fibrillation that is paroxysmal. He is currently on DVT prophylactic Lovenox and aspirin. Would recommend instituting anticoagulation other he is anticipating prostate seed placement so we may want to hold off until after this procedure. Hypokalemia and hypomagnesia. Potassium and magnesium will be replaced with IV replacement therapy. Will recheck tomorrow. Prostate cancer. Anticipating soon treatment with radiation he is on hormonal therapy at this time. I am not sure what that is is is not in his medication list. His PSA is elevated. Hepatitis. Patient has chronic elevation of his liver enzymes and chronic hepatitis C. Liver enzymes are elevated on review which are the continue to be elevated. A courses will need to be monitored. PT and INR is stable at this point. Chronic abdominal pain and diverticular disease verses colitis. This is also chronic condition being worked up by GI. Apparently he is on steroids. Again I am not sure what those medications are his will bring in a medication list and will start knee just oasis needed. DVT prophylaxis with Lovenox. Disposition and plan. Patient will be admitted to the hospital for further workup and evaluation of his multiple medical problems.
[2020-11-12 14:03] LABS: Magnesium 1.5 mg/dL (1.6-2.3)
[2020-11-12 14:13] LABS: NT-proBNP (BNP-Adult 18+) 296 pg/mL (<125)
[2020-11-12] MEDS: MORPHINE 2 MG/ML INJ IV ×3 (14:36→23:45)
[2020-11-12 16:12] LABS: COVID19 -Nasal RAPID Negative (Negative)
[2020-11-12] MEDS: MAGNESIUM SULFATE 2 GM/50 ML PIGGYBACK IV (16:44)
[2020-11-12] MEDS: SIMVASTATIN 40 MG TABLET PO (16:45)
[2020-11-12] MEDS: OXYCODONE IR 10 MG TABLET PO ×2 (16:45→20:51)
[2020-11-12] MEDS: TAMSULOSIN 0.4 MG CAPSULE PO (16:45)
[2020-11-12] MEDS: INSULIN ASPART 100 UNIT/ML INSULN PEN SUBCUT (16:54)
[2020-11-12] MEDS: POTASSIUM CHLORIDE 40 MEQ in SODIUM CHLORIDE 0.9% 500 ML 130 ML IV (18:57)
--- NOTE | 2020-11-12 19:23 | PC.NURSE ---
Patient has been resting in bed so far since the beginning of the shift. Pain has been controlled with oxycodone and morphine. Patient was able to slowly eat dinner w/out any nausea. Has been NSR on tele and denies any SOB or chest pain. Patient has been A&O, calm and cooperative.
[2020-11-12 20:12] LABS: Troponin I 0.032 ng/mL (0.01-0.034)
[2020-11-12] MEDS: PANTOPRAZOLE 40 MG TABLET PO (20:50)
[2020-11-12] MEDS: METOPROLOL IR 50 MG TABLET PO (20:51)
[2020-11-12] MEDS: METFORMIN HCL 500 MG TABLET PO (20:51)
[2020-11-13] VITALS: BP 130/90; PULSE 66; RESP 16; TEMP 36.5; O2SAT 95
[2020-11-13 04:22] LABS: Troponin I 0.017 ng/mL (0.01-0.034)
[2020-11-13 05:00] VITALS: BP 157/95; PULSE 54; RESP 16; TEMP 36.2; O2SAT 98
[2020-11-13] MEDS: MORPHINE 2 MG/ML INJ IV ×3 (05:58→16:08)
[2020-11-13] MEDS: SODIUM CHLORIDE 0.9% FLUSH 10 ML IV ×4 (05:58→16:09)
[2020-11-13 08:00] VITALS: BP 150/85; PULSE 55; RESP 16; TEMP 36.6; O2SAT 98
--- NOTE | 2020-11-13 08:13 | PM.PN.1 ---
Subjective Subjective Date Patient Seen: 11/13/20 Time Patient Seen: 08:13 Interval history: Patient asymptomatic this morning. No chest pain no trouble breathing. No abdominal pain No significant dysrhythmias overnight Borderline hypertension off and on. Troponin has returned normal and stayed there Patient has already had echocardiogram performed although interpretation is not yet available Plan for stress test later today, will need Lexiscan Exam Vital Signs (past 8 hours): - 11/13/20 05:00 Temperature 97.2 F L Pulse Rate 54 L Respiratory Rate 16 Blood Pressure 157/95 H Pulse Oximetry 98 Oxygen Delivery Method Room Air Oxygen Flow Rate 0 Objective Labs Result Diagrams: 11/12/20 08:30 11/12/20 08:30 Labs: Laboratory Results - last 24 hr 11/12/20 11/12/20 11/12/20 08:30 08:30 08:30 WBC 6.5 RBC 5.01 Hgb 16.6 Hct 47.5 MCV 94.8 MCH 33.2 MCHC 35.0 RDW 13.1 Plt Count 104 L Neut % (Auto) 69.8 Lymph % (Auto) 13.2 L [place] % (Auto) 15.9 H Eos % (Auto) 0.4 L Baso % (Auto) 0.7 Neut # (Auto) 4500 Lymph # (Auto) 900 L [place] # (Auto) 1000 H Eos # (Auto) 0 Baso # (Auto) 0 PT 11.6 INR 1.0 APTT 26 L Sodium 136 L Potassium 3.0 L Chloride 99 Carbon Dioxide 27 BUN 29 H Creatinine 0.50 L Estimated GFR > 60.0 BUN/Creatinine Ratio 58.0 H Glucose 249 H Calcium 9.6 Magnesium Total Bilirubin 1.6 H AST 580 H ALT 652 H Alkaline Phosphatase 129 H Total Creatine Kinase 45 L CK-MB (CK-2) TNP CK-MB (CK-2) Rel Index TNP Troponin I 0.018 NT-Pro-B Natriuret Pep Total Protein 7.8 Albumin 4.2 Globulin 3.6 Albumin/Globulin Ratio 1.2 Lipase 74 Urine Color Urine Appearance Urine pH Ur Specific [place] Urine Protein Urine Glucose (UA) Urine Ketones Urine Occult Blood Urine Nitrate Urine Bilirubin Urine Urobilinogen Ur Leukocyte Esterase Urine RBC Urine WBC Urine Bacteria Ur Culture Indicated? Micro UA Comment U Opiates 300ng/mL cut Ur Oxycodone Screen Urine Methadone Screen Ur Barbiturates Screen U Tricyclic Antidepress Ur Phencyclidine Scrn Ur Amphetamines Screen U Methamphetamines Scrn Ur MDMA Scrn (Ecstasy) U Benzodiazepines Scrn Urine Cocaine Screen U Marijuana (THC) Screen SARS-CoV-2 (PCR) 11/12/20 11/12/20 11/12/20 08:42 08:42 12:00 WBC RBC Hgb Hct MCV MCH MCHC RDW Plt Count Neut % (Auto) Lymph % (Auto) [place] % (Auto) Eos % (Auto) Baso % (Auto) Neut # (Auto) Lymph # (Auto) [place] # (Auto) Eos # (Auto) Baso # (Auto) PT INR APTT Sodium Potassium Chloride Carbon Dioxide BUN Creatinine Estimated GFR BUN/Creatinine Ratio Glucose Calcium Magnesium Total Bilirubin AST ALT Alkaline Phosphatase Total Creatine Kinase CK-MB (CK-2) CK-MB (CK-2) Rel Index Troponin I 0.044 H NT-Pro-B Natriuret Pep Total Protein Albumin Globulin Albumin/Globulin Ratio Lipase Urine Color Yellow Urine Appearance Clear Urine pH 6.5 Ur Specific [place] 1.015 Urine Protein 1+ H Urine Glucose (UA) Trace H Urine Ketones 1+ H Urine Occult Blood Trace-intact Urine Nitrate Negative Urine Bilirubin Negative Urine Urobilinogen 0.2 Ur Leukocyte Esterase Negative Urine RBC None seen Urine WBC None seen Urine Bacteria None seen Ur Culture Indicated? Cult not indicated Micro UA Comment Microscopic normal U Opiates 300ng/mL cut Negative Ur Oxycodone Screen Positive H Urine Methadone Screen Negative Ur Barbiturates Screen Negative U Tricyclic Antidepress Negative Ur Phencyclidine Scrn Negative Ur Amphetamines Screen Negative U Methamphetamines Scrn Negative Ur MDMA Scrn (Ecstasy) Negative U Benzodiazepines Scrn Negative Urine Cocaine Screen Negative U Marijuana (THC) Screen Positive H SARS-CoV-2 (PCR) 11/12/20 11/12/20 11/12/20 12:00 15:37 19:45 WBC RBC Hgb Hct MCV MCH MCHC RDW Plt Count Neut % (Auto) Lymph % (Auto) [place] % (Auto) Eos % (Auto) Baso % (Auto) Neut # (Auto) Lymph # (Auto) [place] # (Auto) Eos # (Auto) Baso # (Auto) PT INR APTT Sodium Potassium Chloride Carbon Dioxide BUN Creatinine Estimated GFR BUN/Creatinine Ratio Glucose Calcium Magnesium 1.5 L Total Bilirubin AST ALT Alkaline Phosphatase Total Creatine Kinase CK-MB (CK-2) CK-MB (CK-2) Rel Index Troponin I 0.032 NT-Pro-B Natriuret Pep 296 H Total Protein Albumin Globulin Albumin/Globulin Ratio Lipase Urine Color Urine Appearance Urine pH Ur Specific [place] Urine Protein Urine Glucose (UA) Urine Ketones Urine Occult Blood Urine Nitrate Urine Bilirubin Urine Urobilinogen Ur Leukocyte Esterase Urine RBC Urine WBC Urine Bacteria Ur Culture Indicated? Micro UA Comment U Opiates 300ng/mL cut Ur Oxycodone Screen Urine Methadone Screen Ur Barbiturates Screen U Tricyclic Antidepress Ur Phencyclidine Scrn Ur Amphetamines Screen U Methamphetamines Scrn Ur MDMA Scrn (Ecstasy) U Benzodiazepines Scrn Urine Cocaine Screen U Marijuana (THC) Screen SARS-CoV-2 (PCR) Negative 11/13/20 03:50 WBC RBC Hgb Hct MCV MCH MCHC RDW Plt Count Neut % (Auto) Lymph % (Auto) [place] % (Auto) Eos % (Auto) Baso % (Auto) Neut # (Auto) Lymph # (Auto) [place] # (Auto) Eos # (Auto) Baso # (Auto) PT INR APTT Sodium Potassium Chloride Carbon Dioxide BUN Creatinine Estimated GFR BUN/Creatinine Ratio Glucose Calcium Magnesium Total Bilirubin AST ALT Alkaline Phosphatase Total Creatine Kinase CK-MB (CK-2) CK-MB (CK-2) Rel Index Troponin I 0.017 NT-Pro-B Natriuret Pep Total Protein Albumin Globulin Albumin/Globulin Ratio Lipase Urine Color Urine Appearance Urine pH Ur Specific [place] Urine Protein Urine Glucose (UA) Urine Ketones Urine Occult Blood Urine Nitrate Urine Bilirubin Urine Urobilinogen Ur Leukocyte Esterase Urine RBC Urine WBC Urine Bacteria Ur Culture Indicated? Micro UA Comment U Opiates 300ng/mL cut Ur Oxycodone Screen Urine Methadone Screen Ur Barbiturates Screen U Tricyclic Antidepress Ur Phencyclidine Scrn Ur Amphetamines Screen U Methamphetamines Scrn Ur MDMA Scrn (Ecstasy) U Benzodiazepines Scrn Urine Cocaine Screen U Marijuana (THC) Screen SARS-CoV-2 (PCR) [facility] Medical History Cannabis abuse Chronic hepatitis Coronary artery disease involving [place] coronary artery of [place] heart without angina pectoris (~2006) Diabetes type 2, controlled Diabetes type 2, uncontrolled Diabetic peripheral neuropathy Diverticular disease Diverticulosis of large intestine (03/31/12) Essential hypertension Hepatitis C Kidney stones Mixed hyperlipidemia Paroxysmal A-fib Prostate cancer (~05/2019) Surgical History H/O heart artery stent (~2006) History of angioplasty (~12/2006) Hx of inguinal hernia surgery (~09/20/08) Hx of inguinal hernia surgery (~03/07/14) Status post laminectomy Social History marital status: unmarried,single number of children: 3 household members: none lives independently: Yes caregiver/support person: No housing: house pets and animals: No education level: high school occupational status: other 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/advent: None leisure activities: music, fishing and other Smoking Status: Never smoker Tobacco: How many years used: 56 Smokeless tobacco user: other quit status: has quit before second hand exposure: Yes (On [place].) alcohol intake: former substance use type: does not use and marijuana eating out: rarely or never Type(s) of exercise: normal ROM and activity and additional Assessment & Plan Assessment & Plan narrative: 1. Atrial fibrillation/flutter-patient apparently had only atrial flutter seen in the ER. That is what is on his 12 lead ECG as well. Patient reports having something found on event monitor done after his cardiology visit with Dr. ceferino june in August with some change in his metoprolol. Unfortunately I do not have any of those details. For now I am going to increase his beta-ky therapy because of his hypertension and this dysrhythmia. Patient undergoing cardiac evaluation entirely appropriate given his past history. Assuming there are no new findings likely okay for discharge and close follow-up with Cardiology regarding his dysrhythmia. 2. Hypertension-as above will increase dose of metoprolol slightly. He was minimally bradycardic this morning but that is the only time his heart rates been less than 60 and so I think there is room to go up with this medication in effort to both help with his rhythm disturbance as well as his hypertension. 3. Coronary artery disease-patient to undergo stress testing today to ensure no active ischemia. Minimal bump in his troponin yesterday likely due to demand ischemia/type 2 myocardial infarction given his accelerated heart rate and extreme hypertension. 4. Chronic abdominal pain-at this moment is not having any abdominal pain. This is a chronic issue for patient that we have not been able to find a good etiology for and therefore no good solution 5. Diabetes-blood sugars adequately although not perfectly controlled. Continue with carb controlled diet 6. Prostate cancer-continues to undergo treatment with Urology. Note: Greater than 30 minutes was spent evaluating the patient on the floor, including examining the patient, discussing clinical course with clinical and nursing staff, reviewing clinical course in the computer, preparing documentation and writing orders for continued management of care, discussing status with family as appropriate, reviewing plans for the next 24 hours with both patient/family and nursing staff as appropriate.
[2020-11-13 08:25] LABS: Add Manual Diff / Slide Review NO; Basophils Absolute Auto 0 /uL (0-100); Basophils Percent Auto 0.6 % (0-2); Eosinophils Absolute Auto 0 /uL (0-450); Eosinophils Percent Auto 0.9 % (2-4); Hematocrit 41.8 % (41-53); Hemoglobin 14.4 g/dL (13.5-17.5); Lymphocytes Absolute Auto 1300 /uL (1100-4500); Mean Corpuscular HGB Conc 34.4 % (30-36); Mean Corpuscular Hemoglobin 32.8 PG (26-34); Mean Corpuscular Volume 95.3 fL (80-100); Monocytes Absolute Auto 700 /uL (0-900); Monocytes Percent Auto 14.3 % (3-14); Neutrophils Absolute Auto 2800 /uL (1500-7000); Neutrophils Percent Auto 57.2 % (50-75); Platelet Count 102 X10^3/uL (150-400); Red Blood Cell Count 4.39 X10^6/uL (4.5-5.9); Red Cell Distribution Width 13.1 % (11.6-14.8); White Blood Cell Count 4.9 X10^3/uL (4.5-11.0)
[2020-11-13 08:26] LABS: Alanine Aminotransferase 503 IU/L (<50); Albumin 3.5 g/dL (3.5-5.0); Albumin Globulin Ratio 1.1 (1.0-2.8); Alkaline Phosphatase 94 U/L (38-126); Aspartate Aminotransferase 419 IU/L (17-59); BUN Creatinine Ratio 45.5 (6-22); Bilirubin Total 1.3 mg/dL (0.2-1.3); Blood Urea Nitrogen 25 mg/dL (9-20); Calcium 8.8 mg/dL (8.4-10.2); Carbon Dioxide 28 mmol/L (22-32); Chloride 104 mmol/L (98-107); Estimated Glomerular Filt Rate > 60.0 mL/min (>60); Globulin 3.2 g/dL (1.7-4.1); Glucose 172 mg/dL (80-110); HEMOLYSIS 55 (0-50); Potassium 4.4 mmol/L (3.4-5.1); Sodium 136 mmol/L (137-145); Total Protein 6.7 g/dL (6.3-8.2)
[2020-11-13] MEDS: INSULIN ASPART 100 UNIT/ML INSULN PEN SUBCUT ×3 (08:51→17:18)
[2020-11-13] MEDS: lisinopriL 20 MG TABLET 40 MG PO (08:51)
[2020-11-13] MEDS: ENOXAPARIN 40 MG/0.4 ML SYRINGE SUBCUT (08:51)
[2020-11-13] MEDS: OXYCODONE IR 10 MG TABLET PO ×2 (08:55→14:32)
--- NOTE | 2020-11-13 11:58 | CM.DANOTE ---
DCP: Case received, EMR reviewed and met with patient. Introduced self and role. Was able to meet with patient and obtain information regarding his baseline activity level at home, and his current living situation. DCP assessment completed with information currently available. Patient is a 65 year old male who admitted yesterday afternoon to the care of the hospitalist team. PCP: Dr. Vasques. Payer: confirmed: [employer]. Patient came to the hospital via ambulance secondary to having a rapid heart beat, palpitations. Patient was noted to have atrial flutter, and has history of paroxysmal a-fib. Patient was also noted to have hypokalemia. Met with patient in his room. He was laying in bed, alert and oriented. 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 He indicated that he has a private caregiver named Lisandra, who comes in three times a week. She sets up his medications, and helps with house hold chores and meals. He uses a walker at baseline, and has a wheel-chair. He does not drive, his caregiver takes him to all appointments, and gets his groceries. Patient mentioned seeing if his insurance covers caregivers. Let him know, unless he has correction care insurance, most likely will not. Did discuss home health with patient briefly, stated, he did not think he had it before, is an option. P: DCP to continue to follow and will be available for any resources needed. If home health is recommended, will need a face to face. Radha Guajardo RN/Lead Project Manager
--- NOTE | 2020-11-13 13:17 | PM.TREADMILL ---
Cardiac Stress Test Report Referral & Results Date Patient Seen: 11/13/20 Time Patient Seen: 13:17 Requesting provider: Helen Recinos Indication: heart racing Rest ECG: sinus rhythm Procedure Note: After Lexiscan injection had minimal dyspnea, no chest discomfort Hypertensive at baseline No significant ST changes on ECG after Lexiscan injection No ectopy Impression: Normal Lexiscan stress test Mibi images pending Please note: Actual ECG tracings can be found in the PACS system.
[2020-11-13] MEDS: METFORMIN HCL 500 MG TABLET PO (14:33)
[2020-11-13] MEDS: METOPROLOL IR 50 MG TABLET 75 MG PO (14:35)
[2020-11-13 14:38] VITALS: BP 145/80; PULSE 56; RESP 16; TEMP 36.6; O2SAT 98
[2020-11-13 15:23] VITALS: BP 161/109; PULSE 73; RESP 17; TEMP 36.1; O2SAT 98
[2020-11-13] MEDS: TAMSULOSIN 0.4 MG CAPSULE PO (17:21)
[2020-11-13] MEDS: SIMVASTATIN 40 MG TABLET PO (17:21)
--- NOTE | 2020-11-13 17:31 | DIET.PN ---
Dietary Progress Note RD attempted visit but pt out at stress tests. Per chart review pt mostly weight stable, will do full evaluation morning of 11/14/20.
--- NOTE | 2020-11-13 18:39 | PC.NURSE ---
Discharge teaching complete. IV removed, Tele removed. Pt and caregiver verbalized understanding of all d/c instructions. Escorted out via w/c with all personal belongings in stable condition.
--- NOTE | 2020-11-19 17:02 | PC.NURSE ---
Late Entry; Magnesium infusion initiated 3/3 at 16:44 complete at 18:45. Potassium infusion initiated 3/3 at 18:57 complete at 22:58.
== END 2020-11-13 18:15 | disposition home or self-care (01) ==
LOC: ED 13:23 → AC 13:55
PROVIDERS: Admitting Provider Family Medicine; Emergency Provider Emergency Medicine; PCP Internal Medicine; Visit Provider Internal Medicine
DX: I48.0 Paroxysmal atrial fibrillation (principal); R10.9 Unspecified abdominal pain; E87.6 Hypokalemia; E83.42 Hypomagnesemia; I10 Essential (primary) hypertension; I25.10 Atherosclerotic heart disease of native coronary artery without angina pectoris; E11.9 Type 2 diabetes mellitus without complications; C61 Malignant neoplasm of prostate; B18.2 Chronic viral hepatitis C; Z20.822 Contact with and (suspected) exposure to COVID-19
CPT/HCPCS: 36415; 71045; 78452; 80053; 80305; 81001; 82550; 82962; 83690; 83735; 83880; 84484; 85025; 85610; 85730; 87635; 93005; 93017; 93306; 96361; 96365; 96366; 96367; 96372; 96375; 96376; 99284; C9803; G0378; A9502; C9113; J1170; J1650; J2060; J2270; J2405; J2785; J3475; J3480

== ENCOUNTER 2020-11-18 15:48 | Emergency (ER) | payer OTHER, SELFPAY ==
[2020-11-12 14:07] VITALS: BMI 20.3
[2020-11-18] VITALS (11 sets, daily range): BP systolic 136–180; BP diastolic 82–110; PULSE 61–91; RESP 7–16; TEMP 37.2; O2SAT 94–98; BMI 18.3
[2020-11-18 16:27] LABS: Bacteria Urine None Seen; RBC Urine None Seen (0-5/HPF)
[2020-11-18 16:28] LABS: Appearance Urine UA CLEAR; Bilirubin Urine UA NEGATIVE (NEGATIVE); Color Urine UA YELLOW; Glucose Urine UA 1+ g/dL (Negative); Ketones Urine UA 1+ (NEGATIVE); Leukocyte Esterase Urine UA NEGATIVE (NEGATIVE); Nitrite Urine UA NEGATIVE (Negative); Occult Blood Urine UA NEGATIVE (Negative); Protein Urine UA NEGATIVE (Negative); Specific Gravity Urine UA 1.015 (1.000-1.035); Urobilinogen Urine UA 0.2 E.U./dL (0.2); pH Urine UA 7.5 (4.5-8.0)
[2020-11-18 16:30] LABS: Add Manual Diff / Slide Review NO; Basophils Absolute Auto 0 /uL (0-100); Basophils Percent Auto 0.4 % (0-2); Eosinophils Absolute Auto 0 /uL (0-450); Hematocrit 43.3 % (41-53); Lymphocytes Absolute Auto 700 /uL (1100-4500); Lymphocytes Percent Auto 11.3 % (25-40); Mean Corpuscular HGB Conc 34.6 % (30-36); Mean Corpuscular Hemoglobin 32.5 PG (26-34); Mean Corpuscular Volume 93.9 fL (80-100); Monocytes Absolute Auto 600 /uL (0-900); Monocytes Percent Auto 9.4 % (3-14); Neutrophils Absolute Auto 4600 /uL (1500-7000); Neutrophils Percent Auto 78.9 % (50-75); Platelet Count 117 X10^3/uL (150-400); Red Blood Cell Count 4.61 X10^6/uL (4.5-5.9); Red Cell Distribution Width 12.9 % (11.6-14.8); White Blood Cell Count 5.9 X10^3/uL (4.5-11.0)
[2020-11-18 16:32] LABS: INR 1.1 (0.9-1.3)
[2020-11-18 16:35] LABS: PTT Partial Thromboplastin Tim 30 SECONDS (26.4-36.2)
[2020-11-18 16:36] LABS: Culture Indicated Urine Cult Not Indicated; WBC Urine 0-1/HPF (0-5/HPF)
[2020-11-18 16:38] LABS: Alanine Aminotransferase 421 IU/L (<50); Albumin 3.8 g/dL (3.5-5.0); Albumin Globulin Ratio 1.1 (1.0-2.8); Alkaline Phosphatase 168 U/L (38-126); Aspartate Aminotransferase 324 IU/L (17-59); Bilirubin Total 0.8 mg/dL (0.2-1.3); Blood Urea Nitrogen 16 mg/dL (9-20); Carbon Dioxide 30 mmol/L (22-32); Chloride 101 mmol/L (98-107); Estimated Glomerular Filt Rate > 60.0 mL/min (>60); Globulin 3.5 g/dL (1.7-4.1); Glucose 220 mg/dL (80-110); HEMOLYSIS 16 (0-50); Lipase 76 U/L (23-300); Potassium 3.3 mmol/L (3.4-5.1); Sodium 135 mmol/L (137-145); Total Protein 7.3 g/dL (6.3-8.2)
--- NOTE | 2020-11-18 16:49 | ED.ABDPAIN ---
HPI - Abdominal Pain General Chief Complaint: Abdominal Pain Stated Complaint: Abd pain, nausea Time Seen by Provider: 11/18/20 15:56 Source: patient, family and EMS Mode of arrival: EMS Limitations: no limitations History of Present Illness HPI narrative: 65-year-old male nonsmoker with history of hypertension, diabetes, prostate cancer, chronic abdominal pain presents by EMS for evaluation of his typical abdominal pain and multiple episodes of nausea and vomiting. He has been trying to eat right and was able to keep kneels down yesterday but over the course of the day he has had increasing trouble. He is not dizzy nor weak or lightheaded. He denies any fever or chills. He is not having chest pain or shortness of breath. He denies any blood in his vomit or stools. His pain seems to be worse with a bowel movement and with motion and improves with rest MD complaint: abdominal pain Onset (ago): hour(s) Pain Consistency: constant Location: LLQ Severity: moderate Quality: cramping and aching Radiation: none Relieving factors: nothing Exacerbating factors: bowel movement and movement Associated symptoms: nausea and vomiting Related Data Home Medications Medication Instructions Recorded Confirmed cyclobenzaprine 5 mg tablet 5 mg PO TID PRN tab 03/20/19 11/18/20 tamsulosin 0.4 mg PO QPM 08/15/19 11/18/20 aspirin 81 mg PO QAM 11/06/19 11/18/20 Previous Rx's Medication Instructions Recorded ondansetron 4 mg disintegrating 4 mg PO Q6H PRN #30 tab 06/19/19 tablet budesonide 3 mg 6 mg PO QAM #180 each 12/04/19 capsule,delayed,extended release blood sugar diagnostic #100 each 05/13/20 blood-glucose meter #1 each 05/13/20 lancets 30 gauge #100 each 05/13/20 metformin 500 mg tablet 500 mg PO BID #180 tab 05/26/20 simvastatin 40 mg tablet 40 mg PO QPM #90 tab 08/12/20 omeprazole 40 mg capsule,delayed 40 mg PO BID #180 cap 09/04/20 release oxycodone 5 mg tablet 5 - 10 mg PO Q4H PRN #360 tab 09/15/20 [address] #1 ea 10/13/20 lisinopril 40 mg tablet 40 mg PO BID #180 tab 11/04/20 metoprolol tartrate 75 mg PO BID #90 tab 11/13/20 promethazine 25 mg MD Q4-6H PRN #12 ea 11/18/20 Allergies Allergy/AdvReac Type Severity Reaction Status Date / Time No Known Drug Allergies Allergy Verified 11/10/20 09:26 Review of Systems Constitutional Constitutional: Denies chills, Denies fatigue, Denies fever(s), Denies frequent falls, Denies lethargy and Denies weakness Eyes Eyes: Denies change in vision, Denies eye discharge, Denies irritation and Denies loss of vision ENT Ears, Nose, Mouth, and Throat: Denies change in voice, Denies dizziness, Denies neck pain, Denies sore throat and Denies throat swelling Cardiovascular Cardiovascular: Denies chest pain, Denies irregular heart rhythm, Denies lightheadedness, Denies palpitations, Denies dyspnea, Denies dyspnea on exertion and Denies orthopnea Respiratory Respiratory: Denies cough, Denies dyspnea, Denies dyspnea on exertion and Denies wheezing Gastrointestinal Gastrointestinal: Reports abdominal pain, Denies change in bowel habits, Denies diarrhea, Reports nausea and Reports vomiting Musculoskeletal Musculoskeletal: Denies neck pain and Denies numbness Integumentary/Breasts Skin/Breast: Denies pruritus, Denies erythema, Denies rash and Denies wounds Neurologic Neurologic: Denies behavioral changes, Denies confusion, Denies dizziness, Denies frequent falls, Denies loss of vision, Denies numbness and Denies weakness Psychiatric Psychiatric: Denies anxiety, Denies behavioral changes, Denies confusion, Denies depression, Denies homicidal ideation and Denies suicidal ideation Endocrine Endocrine: Denies fatigue, Denies flushing and Denies palpitations Hematologic/Lymphatic Hematologic/Lymphatic: Denies easy bruising Allergic/Immunologic Allergic/Immunologic: Denies urticaria, Denies throat swelling and Denies wheezing Patient History Medical History Cannabis abuse Chronic hepatitis Coronary artery disease involving [place] coronary artery of [place] heart without angina pectoris (~2006) Diabetes type 2, controlled Diabetes type 2, uncontrolled Diabetic peripheral neuropathy Diverticular disease Diverticulosis of large intestine (03/31/12) Essential hypertension Hepatitis C Kidney stones Mixed hyperlipidemia Paroxysmal A-fib Prostate cancer (~05/2019) Surgical History H/O heart artery stent (~2006) History of angioplasty (~12/2006) Hx of inguinal hernia surgery (~09/20/08) Hx of inguinal hernia surgery (~03/07/14) Status post laminectomy Social History marital status: unmarried,single number of children: 3 household members: none lives independently: Yes caregiver/support person: No housing: house pets and animals: No education level: high school occupational status: other 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, fishing and other Smoking Status: Never smoker Tobacco: How many years used: 56 Smokeless tobacco user: other quit status: has quit before second hand exposure: Yes (On farm[place]/Boat.) alcohol intake: former substance use type: does not use and marijuana eating out: rarely or never Type(s) of exercise: normal ROM and activity and additional Smoking Status: Never smoker alcohol intake frequency: a few times a week Substance Use Type: marijuana Exam Narrative Exam Narrative: GENERAL: [65] year old patient appears stated age. Well-nourished, well-developed patient, in mild distress. Rubbing his abdomen, clutching an emesis bag HEAD: Atraumatic. Normocephalic. EYES: Pupils equal round and reactive. Extraocular motions intact. No scleral icterus. No injection or drainage. ENT: Nose without bleeding, purulent drainage. Throat without erythema, tonsillar hypertrophy or exudate. Airway patent. NECK: Trachea midline. Non tender CARDIOVASCULAR: Regular rate and rhythm without murmurs, gallops, or rubs. RESPIRATORY: Clear to auscultation. Breath sounds equal bilaterally. No wheezes, rales, or rhonchi. GASTROINTESTINAL: Abdomen soft, tender in the left lower quadrant and left upper quadrant, nondistended. Bowel sounds present all 4 quadrants EXTREMITIES: No edema or joint tenderness. BACK: Nontender without deformity or crepitance. No flank tenderness. NEURO: AOx3. SKIN: No rash or erythema of visible areas Initial Vital Signs Initial Vital Signs: Vital Signs Pulse Oximetry 94 11/18/20 15:51 Course Course Course Narrative: Patient feels significant improvement after above-stated therapies. He is able to tolerate oral challenge. Again he refuses any imaging and understands that we may be missing an evolution of disease but I sure the opinion given his improvement and stable labs and he is appropriate for discharge. He understands and agrees with the plan. He has been given return precautions and has had questions answered to his apparent satisfaction. Orders Ordered: ED Orders 11/18/20 16:01 EKG-12 Lead Stat 11/18/20 16:14 Complete Blood Count AUTO DIFF Stat Comprehensive Metabolic Panel Stat Lipase Stat Partial Thromboplastin Time Stat Prothrombin Time INR Stat 11/18/20 16:21 Urinalysis and Microscopic Stat Discontinued Medications Hydromorphone HCl (Hydromorphone 1 Mg Inj) 1 mg IV NOW ONE Stop: 11/18/20 17:01 Last Admin: 11/18/20 17:24 Dose: 1 mg Documented by: FERNANDO Metoclopramide HCl (Metoclopramide 10 Mg/2 Ml Inj) 10 mg IV NOW ONE Stop: 11/18/20 17:01 Last Admin: 11/18/20 17:24 Dose: 10 mg Documented by: FERNANDO Pantoprazole Sodium (Pantoprazole 40 Mg Vial) 40 mg IV NOW ONE Stop: 11/18/20 17:01 Last Admin: 11/18/20 17:24 Dose: 40 mg Documented by: FERNANDO Vital Signs Vital signs: Vital Signs - 8 hr 11/18/20 15:51 11/18/20 15:52 11/18/20 15:56 Temperature 98.9 F Pulse Rate 91 H 90 Respiratory Rate 16 Blood Pressure 180/110 H 180/110 H Pulse Oximetry 94 96 97 11/18/20 16:00 11/18/20 16:30 11/18/20 16:59 Temperature Pulse Rate 77 91 H 86 Respiratory Rate 7 L 16 Blood Pressure 136/90 Pulse Oximetry 96 97 98 11/18/20 17:00 11/18/20 17:30 11/18/20 18:00 Temperature Pulse Rate 84 75 62 Respiratory Rate 12 12 Blood Pressure Pulse Oximetry 98 98 97 11/18/20 18:30 11/18/20 18:33 Temperature Pulse Rate 61 63 Respiratory Rate 12 12 Blood Pressure 153/82 H Pulse Oximetry 97 97 MDM - Abdominal Pain Lab Data Result diagrams: 11/18/20 16:14 11/18/20 16:14 Labs: Lab Results 11/18/20 11/18/20 11/18/20 Range/Units 16:14 16:14 16:14 WBC 5.9 (4.5-11.0) X10^3/uL RBC 4.61 (4.5-5.9) X10^6/uL Hgb 15.0 (13.5-17.5) g/dL Hct 43.3 (41-53) % MCV 93.9 (80-100) fL MCH 32.5 (26-34) PG MCHC 34.6 (30-36) % RDW 12.9 (11.6-14.8) % Plt Count 117 L (150-400) X10^3/uL Neut % (Auto) 78.9 H (50-75) % Lymph % (Auto) 11.3 L (25-40) % [place] % (Auto) 9.4 (3-14) % Eos % (Auto) 0.0 L (2-4) % Baso % (Auto) 0.4 (0-2) % Neut # (Auto) 4600 (9691-3144) /uL Lymph # (Auto) 700 L (7311-8714) /uL [place] # (Auto) 600 (0-900) /uL Eos # (Auto) 0 (0-450) /uL Baso # (Auto) 0 (0-100) /uL PT 12.0 (10.1-12.7) SECONDS INR 1.1 (0.9-1.3) APTT 30 D (26.4-36.2) SECONDS Sodium 135 L (137-145) mmol/L Potassium 3.3 L (3.4-5.1) mmol/L Chloride 101 (98-107) mmol/L Carbon Dioxide 30 (22-32) mmol/L BUN 16 (9-20) mg/dL Creatinine 0.41 L (0.66-1.25) mg/dL Estimated GFR > 60.0 (>60) mL/min BUN/Creatinine Ratio 39.0 H (6-22) Glucose 220 H (80-110) mg/dL Calcium 9.0 (8.4-10.2) mg/dL Total Bilirubin 0.8 (0.2-1.3) mg/dL AST 324 H (17-59) IU/L ALT 421 H (<50) IU/L Alkaline Phosphatase 168 H D (38-126) U/L Total Protein 7.3 (6.3-8.2) g/dL Albumin 3.8 (3.5-5.0) g/dL Globulin 3.5 (1.7-4.1) g/dL Albumin/Globulin Ratio 1.1 (1.0-2.8) Lipase 76 (23-300) U/L Urine Color Urine Appearance Urine pH (4.5-8.0) Ur Specific [place] (1.000-1.035) Urine Protein (Negative) Urine Glucose (UA) (Negative) g/dL Urine Ketones (NEGATIVE) Urine Occult Blood (Negative) Urine Nitrate (Negative) Urine Bilirubin (NEGATIVE) Urine Urobilinogen (0.2) E.U./dL Ur Leukocyte Esterase (NEGATIVE) Urine RBC (0-5/HPF) Urine WBC (0-5/HPF) Urine Bacteria (None) Ur Culture Indicated? 11/18/20 Range/Units 16:21 WBC (4.5-11.0) X10^3/uL RBC (4.5-5.9) X10^6/uL Hgb (13.5-17.5) g/dL Hct (41-53) % MCV (80-100) fL MCH (26-34) PG MCHC (30-36) % RDW (11.6-14.8) % Plt Count (150-400) X10^3/uL Neut % (Auto) (50-75) % Lymph % (Auto) (25-40) % [place] % (Auto) (3-14) % Eos % (Auto) (2-4) % Baso % (Auto) (0-2) % Neut # (Auto) (3026-5315) /uL Lymph # (Auto) (4764-1587) /uL [place] # (Auto) (0-900) /uL Eos # (Auto) (0-450) /uL Baso # (Auto) (0-100) /uL PT (10.1-12.7) SECONDS INR (0.9-1.3) APTT (26.4-36.2) SECONDS Sodium (137-145) mmol/L Potassium (3.4-5.1) mmol/L Chloride (98-107) mmol/L Carbon Dioxide (22-32) mmol/L BUN (9-20) mg/dL Creatinine (0.66-1.25) mg/dL Estimated GFR (>60) mL/min BUN/Creatinine Ratio (6-22) Glucose (80-110) mg/dL Calcium (8.4-10.2) mg/dL Total Bilirubin (0.2-1.3) mg/dL AST (17-59) IU/L ALT (<50) IU/L Alkaline Phosphatase (38-126) U/L Total Protein (6.3-8.2) g/dL Albumin (3.5-5.0) g/dL Globulin (1.7-4.1) g/dL Albumin/Globulin Ratio (1.0-2.8) Lipase (23-300) U/L Urine Color Yellow Urine Appearance Clear Urine pH 7.5 (4.5-8.0) Ur Specific [place] 1.015 (1.000-1.035) Urine Protein Negative (Negative) Urine Glucose (UA) 1+ H (Negative) g/dL Urine Ketones 1+ H (NEGATIVE) Urine Occult Blood Negative (Negative) Urine Nitrate Negative (Negative) Urine Bilirubin Negative (NEGATIVE) Urine Urobilinogen 0.2 (0.2) E.U./dL Ur Leukocyte Esterase Negative (NEGATIVE) Urine RBC None seen (0-5/HPF) Urine WBC 0-1/hpf (0-5/HPF) Urine Bacteria None seen (None) Ur Culture Indicated? Cult not indicated Discharge Plan Departure Patient Disposition: Home Clinical Impression: Abdominal pain, chronic, bilateral lower quadrant Vomiting Qualifiers: Vomiting type: unspecified Vomiting Intractability: non-intractable Nausea presence: with nausea Qualified Code(s): R11.2 - Nausea with vomiting, unspecified Instructions: DI for Abdominal Pain-Adult Activity Restrictions/Additional Instructions: *You have been diagnosed with [vomiting and chronic abdominal pain. Her labs are very reassuring, we discussed doing additional imaging but agreed to hold off for now.] *What to do: *Take medications as directed *Follow up with your primary care provider in 2-3 days, call for an appointment. Let them know you were seen in the Emergency Department and that we ask that you be seen in follow up *Return to ER if you should have any new, worsening or concerning symptoms, such as [increased pain, fever, chills or other bothersome symptoms] Prescriptions: New promethazine 25 mg suppository 25 mg MD Q4-6H PRN (Reason: nausea and vomiting) Qty: 12 RF: 0 No Action ondansetron 4 mg tablet,disintegrating 4 mg PO Q6H PRN (Reason: Nausea) Qty: 30 RF: 3 budesonide 3 mg capsule,delayed,extend.release 6 mg PO QAM Qty: 180 RF: 3 (DME) blood-glucose meter Misc See Rx Instructions .ROUTE .MEDSUPPLY Qty: 1 RF: 0 (DME) blood sugar diagnostic [Blood Glucose Test] Strip See Rx Instructions .ROUTE .MEDSUPPLY Qty: 100 RF: 3 (DME) lancets 30 gauge misc See Rx Instructions .ROUTE .MEDSUPPLY Qty: 100 RF: 3 metformin 500 mg tablet 500 mg PO BID Qty: 180 RF: 1 simvastatin 40 mg tablet 40 mg PO QPM Qty: 90 RF: 1 omeprazole 40 mg capsule,delayed release(DR/EC) 40 mg PO BID Qty: 180 RF: 1 oxycodone 5 mg tablet 5 - 10 mg PO Q4H PRN (Reason: pain) Qty: 360 RF: 0 (DME) Disabled Parking See Rx Instructions .ROUTE .MEDSUPPLY Qty: 1 RF: 0 cyclobenzaprine 5 mg tablet 5 mg PO TID PRN (Reason: Spasms) RF: 0 lisinopril 40 mg tablet 40 mg PO BID Qty: 180 RF: 3 aspirin 81 mg Tablet,Chewable 81 mg PO QAM RF: 0 tamsulosin 0.4 mg capsule 0.4 mg PO QPM RF: 0 metoprolol tartrate 50 mg Tablet 75 mg PO BID Qty: 90 RF: 4 Referrals: Khang Vasques MD [Primary Care Provider] -
[2020-11-18] MEDS: METOCLOPRAMIDE 10 MG/2 ML INJ IV (17:24)
[2020-11-18] MEDS: PANTOPRAZOLE 40 MG VIAL IV (17:24)
[2020-11-18] MEDS: HYDROMORPHONE 1 MG INJ IV (17:24)
== END 2020-11-18 18:48 | disposition home or self-care (01) ==
PROVIDERS: Emergency Provider Emergency Medicine; PCP Internal Medicine
DX: R10.32 Left lower quadrant pain (principal); R10.31 Right lower quadrant pain; R11.2 Nausea with vomiting, unspecified
CPT/HCPCS: 36415; 80053; 81001; 83690; 85025; 85610; 85730; 93005; 96374; 96375; 99283; 99284; C9113; J1170; J2765

== ENCOUNTER 2020-12-18 13:11 | Emergency (ER) | payer OTHER, SELFPAY ==
[2020-11-12 14:07] VITALS: BMI 20.3
[2020-12-18] VITALS (19 sets, daily range): BP systolic 142–225; BP diastolic 92–115; PULSE 68–89; RESP 10–35; TEMP 37.3; O2SAT 97–99; BMI 19.8
--- NOTE | 2020-12-18 14:18 | ED.NAVMDI ---
HPI - Nausea/Vomiting/Diarrhea General Chief complaint: Nausea/Vomiting/Diarrhea Stated complaint: Nausea, Vomitting Time Seen by Provider: 12/18/20 14:17 Source: patient and EMS Mode of arrival: EMS History of Present Illness HPI Narrative: The patient developed nausea yesterday. He is under treatment for prostate cancer. He takes Lupron, creating hot flashes. He underwent radiation therapy today. He now presents with left abdominal pain, but nausea vomiting. He is hypertensive. He has not been able tolerate his medications. He has chest pain or dyspnea. Has no headache. His pain is predominantly in the left abdomen. He is having decreased bowel movements. He has no hematochezia. He has a history of diverticulitis. Related Data Home Medications Medication Instructions Recorded Confirmed cyclobenzaprine 5 mg tablet 5 mg PO TID PRN tab 03/20/19 12/05/20 tamsulosin 0.4 mg PO QPM 08/15/19 12/05/20 aspirin 81 mg PO QAM 11/06/19 12/05/20 Previous Rx's Medication Instructions Recorded ondansetron 4 mg disintegrating 4 mg PO Q6H PRN #30 tab 06/19/19 tablet blood sugar diagnostic #100 each 05/13/20 blood-glucose meter #1 each 05/13/20 lancets 30 gauge #100 each 05/13/20 simvastatin 40 mg tablet 40 mg PO QPM #90 tab 08/12/20 omeprazole 40 mg capsule,delayed 40 mg PO BID #180 cap 09/04/20 release Disabled [address]ing #1 ea 10/13/20 lisinopril 40 mg tablet 40 mg PO BID #180 tab 11/04/20 metoprolol tartrate 75 mg PO BID #90 tab 11/13/20 promethazine 25 mg IL Q4-6H PRN #12 ea 11/18/20 metformin 500 mg tablet 500 mg PO BID #180 tab 11/24/20 oxycodone 5 mg tablet 5 - 10 mg PO Q4H PRN #360 tab 11/24/20 budesonide 3 mg 6 mg PO QAM #180 each 12/05/20 capsule,delayed,extended release hydrochlorothiazide 25 mg tablet 25 mg PO DAILY #90 tab 12/05/20 amoxicillin-pot clavulanate 1 tab PO BID #14 tab 12/18/20 [Augmentin] Allergies Allergy/AdvReac Type Severity Reaction Status Date / Time No Known Drug Allergies Allergy Verified 12/18/20 13:18 Review of Systems Constitutional Constitutional: Denies body ache(s), Denies chills, Reports fatigue, Denies fever(s) and Denies headache(s) Eyes Eyes: Denies change in vision ENT Ears, Nose, Mouth, and Throat: Denies vertigo, Denies headache(s) and Denies sore throat Cardiovascular Cardiovascular: Denies chest pain, Denies rapid heart rate, Denies edema and Denies dyspnea Respiratory Respiratory: Denies cough and Denies dyspnea Gastrointestinal Gastrointestinal: Reports as per HPI Genitourinary Genitourinary: Denies dysuria Genitourinary: Denies dysuria Musculoskeletal Musculoskeletal: Denies arthralgias and Denies back pain Integumentary/Breasts Skin/Breast: Denies pruritus, Denies erythema, Denies rash and Denies wounds Neurologic Neurologic: Denies confusion, Denies vertigo and Denies headache(s) Psychiatric Psychiatric: Denies confusion Endocrine Endocrine: Reports fatigue Patient History Medical History Cannabis abuse Chronic hepatitis Coronary artery disease involving [place] coronary artery of [place] heart without angina pectoris (~2006) Diabetes type 2, controlled Diabetes type 2, uncontrolled Diabetic peripheral neuropathy Diverticular disease Diverticulosis of large intestine (03/31/12) Essential hypertension Generalized anxiety disorder Hepatitis C Kidney stones Mixed hyperlipidemia Paroxysmal A-fib Prostate cancer (~05/2019) Surgical History H/O heart artery stent (~2006) History of angioplasty (~12/2006) Hx of inguinal hernia surgery (~09/20/08) Hx of inguinal hernia surgery (~03/07/14) Status post laminectomy Social History marital status: unmarried,single number of children: 3 household members: none lives independently: Yes caregiver/support person: No housing: house pets and animals: No education level: high school occupational status: other 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.) alcohol intake: former substance use type: does not use and marijuana eating out: rarely or never Type(s) of exercise: normal ROM and activity and additional Smoking Status: Never smoker alcohol intake frequency: a few times a week Substance Use Type: marijuana Exam Initial Vital Signs Initial Vital Signs: Vital Signs Pulse Rate 76 12/18/20 13:16 Blood Pressure 225/115 H 12/18/20 13:16 Pulse Oximetry 98 12/18/20 13:16 Const General: cooperative and well developed Nutritional Appearance: well nourished [facility] Head: normocephalic and atraumatic Mouth: oral mucosae normal Eyes Conjunctivae: conjunctivae normal Neck Neck: No JVD Resp Auscultation: clear to auscultation bilaterally Cardio Rate: regular rate Rhythm: regular rhythm Heart Sounds: no click, no gallops, no murmurs and no rubs Pulses: normal peripheral pulses GI Other: Left upper quadrant tenderness. No distension. Guarding, no rebound. Normal bowel sounds. No masses. Skin General: no rashes or lesions noted Neuro General: patient alert, patient oriented x3, gait normal and no focal motor deficits Speech: speech normal Extrem General: full ROM, no clubbing, cyanosis or edema, no pedal edema and no calf tenderness Psych Mental Status: mental status grossly normal Course Course Course Narrative: Abdominal CT shows colitis, not diverticulitis. He was given Unasyn and will be discharged on Augmentin. He is feeling much better after receiving IV fluids, as well as pain meds. There are vague, nonspecific changes on the right iliac crest, of concern due to his prostate cancer history. These were discussed. He should follow up with his oncologist. He should follow up with his PCM regarding the colitis recheck in 2 weeks. Orders Ordered: ED Orders 12/18/20 14:34 CT abdomen pelvis w con Stat 12/18/20 15:00 Complete Blood Count AUTO DIFF Stat Comprehensive Metabolic Panel Stat Lipase Stat Urine Microscopic Stat Discontinued Medications Hydromorphone HCl (Hydromorphone 0.5 Mg Inj) 1 mg IV NOW ONE Stop: 12/18/20 14:34 Last Admin: 12/18/20 14:50 Dose: 1 mg Documented by: KGSOLANGE Hydromorphone HCl (Hydromorphone 0.5 Mg Inj) 0.5 mg IV NOW ONE Stop: 12/18/20 14:43 Last Admin: 12/18/20 14:49 Dose: Not Given Documented by: CORIE Hydromorphone HCl (Hydromorphone 0.5 Mg Inj) 0.5 mg IV NOW ONE Stop: 12/18/20 18:12 Last Admin: 12/18/20 18:17 Dose: 0.5 mg Documented by: Sodium Chloride (Normal Saline 0.9%) 1,000 mls @ 1,000 mls/hr IV BOLUS ONE Stop: 12/18/20 15:32 Last Infusion: 12/18/20 15:49 Dose: 0 mls/hr Documented by: Admin: 12/18/20 14:51 Dose: 1,000 mls/hr Documented by: CORIE Ampicillin Sodium/Sulbactam (Sodium 3 gm/ Sodium Chloride) 100 mls @ 100 mls/hr IV NOW ONE Stop: 12/18/20 17:42 Last Admin: 12/18/20 18:00 Dose: 100 mls/hr Documented by: Ondansetron HCl (Ondansetron 4 Mg/2 Ml Inj) 4 mg IV NOW ONE Stop: 12/18/20 14:34 Last Admin: 12/18/20 14:49 Dose: 4 mg Documented by: CORIE Oxycodone/Acetaminophen (Oxycodone/Acetaminophen 5/325 Tablet) 1 tab PO NOW ONE Stop: 12/18/20 17:49 Last Admin: 12/18/20 18:07 Dose: Not Given Documented by: Vital Signs Vital signs: Vital Signs - 8 hr 12/18/20 13:16 12/18/20 13:17 12/18/20 13:18 Temperature 99.2 F Pulse Rate 76 72 75 Respiratory Rate 22 Blood Pressure 225/115 H 210/100 H 210/100 H Pulse Oximetry 98 98 98 12/18/20 13:30 12/18/20 14:00 12/18/20 14:01 Temperature Pulse Rate 71 72 75 Respiratory Rate 35 H 14 12 Blood Pressure 208/111 H 194/102 H Pulse Oximetry 99 99 99 12/18/20 14:30 12/18/20 15:00 12/18/20 15:30 Temperature Pulse Rate 71 87 81 Respiratory Rate 22 31 H 28 H Blood Pressure 211/115 H 155/92 H Pulse Oximetry 99 97 12/18/20 15:44 12/18/20 16:00 12/18/20 16:30 Temperature Pulse Rate 89 80 76 Respiratory Rate 13 16 12 Blood Pressure 166/102 H 153/93 H 145/94 H Pulse Oximetry 99 99 98 12/18/20 17:00 12/18/20 17:30 12/18/20 18:00 Temperature Pulse Rate 71 70 75 Respiratory Rate 10 L 14 14 Blood Pressure 161/97 H 177/104 H Pulse Oximetry 99 99 97 12/18/20 18:01 Temperature Pulse Rate 75 Respiratory Rate 18 Blood Pressure 150/100 H Pulse Oximetry 98 MDM - Nausea/Vomiting/Diarrhea Lab Data Result diagrams: 12/18/20 15:00 12/18/20 15:00 Labs: Lab Results 12/18/20 12/18/20 12/18/20 Range/Units 15:00 15:00 15:00 WBC 5.5 (4.5-11.0) X10^3/uL RBC 4.26 L (4.5-5.9) X10^6/uL Hgb 14.2 (13.5-17.5) g/dL Hct 40.3 L (41-53) % MCV 94.5 (80-100) fL MCH 33.4 (26-34) PG MCHC 35.4 (30-36) % RDW 12.8 (11.6-14.8) % Plt Count 93 L (150-400) X10^3/uL Neut % (Auto) 81.0 H (50-75) % Lymph % (Auto) 10.6 L (25-40) % [place] % (Auto) 8.0 (3-14) % Eos % (Auto) 0.0 L (2-4) % Baso % (Auto) 0.4 (0-2) % Neut # (Auto) 4500 (7163-6917) /uL Lymph # (Auto) 600 L (2853-2578) /uL [place] # (Auto) 400 (0-900) /uL Eos # (Auto) 0 (0-450) /uL Baso # (Auto) 0 (0-100) /uL Sodium 139 (137-145) mmol/L Potassium 3.0 L (3.4-5.1) mmol/L Chloride 105 (98-107) mmol/L Carbon Dioxide 26 (22-32) mmol/L BUN 23 H (9-20) mg/dL Creatinine 0.43 L (0.66-1.25) mg/dL Estimated GFR > 60.0 (>60) mL/min BUN/Creatinine Ratio 53.5 H (6-22) Glucose 266 H (80-110) mg/dL Calcium 9.0 (8.4-10.2) mg/dL Total Bilirubin 0.7 (0.2-1.3) mg/dL AST 189 H (17-59) IU/L ALT 275 H (<50) IU/L Alkaline Phosphatase 123 (38-126) U/L Total Protein 6.9 (6.3-8.2) g/dL Albumin 3.6 (3.5-5.0) g/dL Globulin 3.3 (1.7-4.1) g/dL Albumin/Globulin Ratio 1.1 (1.0-2.8) Lipase 58 (23-300) U/L Urine RBC 0-1/hpf (0-5/HPF) Urine WBC 0-1/hpf (0-5/HPF) Calcium Oxalate Crystal Occasional H Urine Bacteria None seen (None) Urine Mucus 1+ H (Negative) Ur Culture Indicated? Cult not indicated Urine Dip Bedside Urine Glucose 250 mg/dl Bedside Urine Bilirubin - Negative Bedside Urine Ketone + 15 Urine Specific [place] 1.025 Bedside Urine Occult Blood - Negative Bedside Urine pH 6 Bedside Urine Protein - Negative Bedside Urine Urobilinogen - Negative Bedside Urine Nitrite - Negative Bedside Urine Leukocytes - Negative Esterase Imaging Data CT scan - abdomen/pelvis: Radiologist's Impression: 91 Brennan Faulkner MD Find Patient Imaging - JaleelBrennan 65 M 1955 ACTIVITY DATE EXAM STATUS AUTHOR 12/18/20 14:[address] [id number] Scan ReportSigned Patient: Brennan Marmolejo CMR#: [id number]: [id number]:[id number]/Sex: 65 / MDate of Service: 12/18/20Loc: EDAccession Number: [id number] Procedure: CT abdomen pelvis w con Ordering Provider: Brennan Faulkner MD PROCEDURE: CT ABDOMEN PELVIS [facility] INDICATIONS: Left abdominal pain. History of diverticulitis. TECHNIQUE: After the administration of intravenous contrast, 5 mm thick sections acquired from the diaphragm to the symphysis. 5 mm coronal and sagittal reformats were acquired. For radiation dose reduction, the following was used: automated exposure control, adjustment of mA and/or kV according to patient size. COMPARISON: [facility], CT, CT ABDOMEN PELVIS [facility], 06/01/2019, 15:06. [facility], CT, CT ABDOMEN PELVIS [facility], 11/10/2020, 11:07. FINDINGS: Image quality: Excellent. ABDOMEN: Lung bases: Lung bases are clear. Heart size is normal. Moderate coronary artery calcification. Solid organs: Nodular contour of liver suggesting cirrhosis. No discrete hepatic masses. There is a clustered calcific densities in the dome of the liver. Liver is normal in size and enhancement. Gallbladder is normal. Biliary system is non dilated. Pancreas enhances normally. Mild punctate calcifications of pancreas suggesting pancreatitis. Spleen is normal in size and enhancement. No adrenal nodules. Kidneys demonstrate normal size and enhancement, without hydronephrosis. There are several low-density nodules in the right kidney, most likely renal cysts. Small cortical scars are seen in right kidney. Peritoneum and bowel: Bowel loops demonstrate normal wall thickness and caliber. There is diffuse colonic wall thickening involving the splenic flexure, descending and sigmoid colon consistent with colitis. Scattered colonic diverticula. No CT findings to suggest acute diverticulitis. No free fluid or air. Nodes and vessels: No retroperitoneal or mesenteric adenopathy by size criteria. Aorta and inferior vena cava are normal in size. Moderate atherosclerosis. Miscellaneous: No ventral hernias. PELVIS: Genitourinary: Bladder wall thickness is normal. There are metallic densities in prostate, probably biopsy clips. Miscellaneous: No inguinal adenopathy. There is a fat containing left inguinal hernia. Bones: Small lucencies are seen in the right iliac bone.. No vertebral body compression fractures. IMPRESSION: 1. There is diffuse colonic wall thickening involving the splenic flexure, descending and sigmoid colon consistent with colitis. 2. Diverticulosis without acute diverticulitis. 3. Small lucencies are seen in right iliac bone. Differential diagnosis include multiple myelomas and metastases. The result was reviewed with Dr. Faulkner in ER. Dictated by: Ac Arevalo M.D. on 12/18/2020 at 16:08 Approved by: Ac Arevalo M.D. on 12/18/2020 at 16:19 Discharge Plan Departure Patient Disposition: Home Clinical Impression: Colitis, Disorder of bone density and structure, unspecified Instructions: DI for Colitis Activity Restrictions/Additional Instructions: Augmentin 2 times daily for 7 days. Continue with pain and nausea medications as needed. There are poorly defined abnormalities in the bone of your right pelvis. These need to be evaluated by your oncologist. Recheck with your regular doctor in about 2 weeks regarding the colon issue. Return the ER for increasing pain or fever. Prescriptions: New amoxicillin-pot clavulanate [Augmentin] 875-125 mg tablet 1 tab PO BID Qty: 14 RF: 0 No Action ondansetron 4 mg tablet,disintegrating 4 mg PO Q6H PRN (Reason: Nausea) Qty: 30 RF: 3 (DME) blood-glucose meter Misc See Rx Instructions .ROUTE .MEDSUPPLY Qty: 1 RF: 0 (DME) blood sugar diagnostic [Blood Glucose Test] Strip See Rx Instructions .ROUTE .MEDSUPPLY Qty: 100 RF: 3 (DME) lancets 30 gauge misc See Rx Instructions .ROUTE .MEDSUPPLY Qty: 100 RF: 3 simvastatin 40 mg tablet 40 mg PO QPM Qty: 90 RF: 1 omeprazole 40 mg capsule,delayed release(DR/EC) 40 mg PO BID Qty: 180 RF: 1 (DME) Disabled Parking See Rx Instructions .ROUTE .MEDSUPPLY Qty: 1 RF: 0 metformin 500 mg tablet 500 mg PO BID Qty: 180 RF: 1 oxycodone 5 mg tablet 5 - 10 mg PO Q4H PRN (Reason: pain) Qty: 360 RF: 0 budesonide 3 mg capsule,delayed,extend.release 6 mg PO QAM Qty: 180 RF: 3 cyclobenzaprine 5 mg tablet 5 mg PO TID PRN (Reason: Spasms) RF: 0 lisinopril 40 mg tablet 40 mg PO BID Qty: 180 RF: 3 hydrochlorothiazide 25 mg tablet 25 mg PO DAILY Qty: 90 RF: 3 aspirin 81 mg Tablet,Chewable 81 mg PO QAM RF: 0 tamsulosin 0.4 mg capsule 0.4 mg PO QPM RF: 0 metoprolol tartrate 50 mg Tablet 75 mg PO BID Qty: 90 RF: 4 promethazine 25 mg suppository 25 mg IL Q4-6H PRN (Reason: nausea and vomiting) Qty: 12 RF: 0 Referrals: Khang Vasques MD [Primary Care Provider] -
--- NOTE | 2020-12-18 14:34 | DI.CT.S_ITS ---
PROCEDURE: CT ABDOMEN PELVIS W CON INDICATIONS: Left abdominal pain. History of diverticulitis. TECHNIQUE: After the administration of intravenous contrast, 5 mm thick sections acquired from the diaphragm to the symphysis. 5 mm coronal and sagittal reformats were acquired. For radiation dose reduction, the following was used: automated exposure control, adjustment of mA and/or kV according to patient size. COMPARISON: [facility], CT, CT ABDOMEN PELVIS [facility], 06/01/2019, 15:06. [facility], CT, CT ABDOMEN PELVIS [facility], 11/10/2020, 11:07. FINDINGS: Image quality: Excellent. ABDOMEN: Lung bases: Lung bases are clear. Heart size is normal. Moderate coronary artery calcification. Solid organs: Nodular contour of liver suggesting cirrhosis. No discrete hepatic masses. There is a clustered calcific densities in the dome of the liver. Liver is normal in size and enhancement. Gallbladder is normal. Biliary system is non dilated. Pancreas enhances normally. Mild punctate calcifications of pancreas suggesting pancreatitis. Spleen is normal in size and enhancement. No adrenal nodules. Kidneys demonstrate normal size and enhancement, without hydronephrosis. There are several low-density nodules in the right kidney, most likely renal cysts. Small cortical scars are seen in right kidney. Peritoneum and bowel: Bowel loops demonstrate normal wall thickness and caliber. There is diffuse colonic wall thickening involving the splenic flexure, descending and sigmoid colon consistent with colitis. Scattered colonic diverticula. No CT findings to suggest acute diverticulitis. No free fluid or air. Nodes and vessels: No retroperitoneal or mesenteric adenopathy by size criteria. Aorta and inferior vena cava are normal in size. Moderate atherosclerosis. Miscellaneous: No ventral hernias. PELVIS: Genitourinary: Bladder wall thickness is normal. There are metallic densities in prostate, probably biopsy clips. Miscellaneous: No inguinal adenopathy. There is a fat containing left inguinal hernia. Bones: Small lucencies are seen in the right iliac bone.. No vertebral body compression fractures. IMPRESSION: 1. There is diffuse colonic wall thickening involving the splenic flexure, descending and sigmoid colon consistent with colitis. 2. Diverticulosis without acute diverticulitis. 3. Small lucencies are seen in right iliac bone. Differential diagnosis include multiple myelomas and metastases. The result was reviewed with Dr. Faulkner in ER. Dictated by: Ac Arevalo M.D. on 12/18/2020 at 16:08 Approved by: Ac Arevalo M.D. on 12/18/2020 at 16:19
[2020-12-18] MEDS: ONDANSETRON 4 MG/2 ML INJ IV (14:49)
[2020-12-18] MEDS: HYDROMORPHONE 0.5 MG INJ 1 MG IV (14:50)
[2020-12-18] MEDS: SODIUM CHLORIDE 0.9% 1,000 ML 1000 ML IV (14:51)
[2020-12-18 15:08] LABS: Add Manual Diff / Slide Review NO; Basophils Absolute Auto 0 /uL (0-100); Basophils Percent Auto 0.4 % (0-2); Eosinophils Absolute Auto 0 /uL (0-450); Hematocrit 40.3 % (41-53); Hemoglobin 14.2 g/dL (13.5-17.5); Lymphocytes Absolute Auto 600 /uL (1100-4500); Lymphocytes Percent Auto 10.6 % (25-40); Mean Corpuscular HGB Conc 35.4 % (30-36); Mean Corpuscular Hemoglobin 33.4 PG (26-34); Mean Corpuscular Volume 94.5 fL (80-100); Monocytes Absolute Auto 400 /uL (0-900); Neutrophils Absolute Auto 4500 /uL (1500-7000); Platelet Count 93 X10^3/uL (150-400); Red Blood Cell Count 4.26 X10^6/uL (4.5-5.9); Red Cell Distribution Width 12.8 % (11.6-14.8); White Blood Cell Count 5.5 X10^3/uL (4.5-11.0)
[2020-12-18 15:22] LABS: Alanine Aminotransferase 275 IU/L (<50); Albumin 3.6 g/dL (3.5-5.0); Albumin Globulin Ratio 1.1 (1.0-2.8); Alkaline Phosphatase 123 U/L (38-126); Aspartate Aminotransferase 189 IU/L (17-59); BUN Creatinine Ratio 53.5 (6-22); Bilirubin Total 0.7 mg/dL (0.2-1.3); Blood Urea Nitrogen 23 mg/dL (9-20); Carbon Dioxide 26 mmol/L (22-32); Chloride 105 mmol/L (98-107); Estimated Glomerular Filt Rate > 60.0 mL/min (>60); Globulin 3.3 g/dL (1.7-4.1); Glucose 266 mg/dL (80-110); HEMOLYSIS < 15 (0-50); Lipase 58 U/L (23-300); Sodium 139 mmol/L (137-145); Total Protein 6.9 g/dL (6.3-8.2)
[2020-12-18 15:45] LABS: Bacteria Urine None Seen
[2020-12-18 15:55] LABS: Calcium Oxalate Crystals Urine Occasional; Culture Indicated Urine Cult Not Indicated; Mucus Urine 1+ (Negative); RBC Urine 0-1/HPF (0-5/HPF); WBC Urine 0-1/HPF (0-5/HPF)
[2020-12-18] MEDS: AMPICILLIN/SULBACTAM 3 GM 3 GM in SODIUM CHLORIDE 0.9% 100 ML IV (18:00)
[2020-12-18] MEDS: HYDROMORPHONE 0.5 MG INJ IV (18:17)
== END 2020-12-18 19:22 | disposition home or self-care (01) ==
PROVIDERS: Emergency Provider Emergency Medicine; PCP Internal Medicine
DX: K52.9 Noninfective gastroenteritis and colitis, unspecified (principal); M85.9 Disorder of bone density and structure, unspecified
CPT/HCPCS: 74177; 80053; 81003; 81015; 83690; 85025; 96361; 96365; 96366; 96375; 96376; 99283; 99284; J0295; J1170; J2405; Q9967

== ENCOUNTER 2020-12-20 19:00 | Emergency (ER) | payer OTHER, SELFPAY ==
[2020-11-12 14:07] VITALS: BMI 20.3
[2020-12-20] VITALS (13 sets, daily range): BP systolic 131–176; BP diastolic 90–102; PULSE 61–84; RESP 10–20; O2SAT 97–99; BMI 19.8
--- NOTE | 2020-12-20 18:59 | DI.RAD.S_ITS ---
PROCEDURE: XR CHEST 1V INDICATIONS: Dysrhythmia TECHNIQUE: One view of the chest was acquired. COMPARISON: [facility], CR, XR CHEST 1V, 11/12/2020, 8:24. FINDINGS: Surgical changes and devices: None. Lungs and pleura: Lungs are clear. No pleural effusions or pneumothorax. Mediastinum: Mediastinal contours appear normal. Heart size is normal. Bones and chest wall: No suspicious bony lesions. Overlying soft tissues appear unremarkable. IMPRESSION: No acute cardiopulmonary process demonstrated radiographically. Dictated by: Odin Morin M.D. on 12/20/2020 at 19:49 Approved by: Odin Morin M.D. on 12/20/2020 at 19:49
--- NOTE | 2020-12-20 19:11 | ED.ARRPALP ---
HPI - Arrhythmia/Palpitations General Chief Complaint: Arrhythmia/Palpitations Stated Complaint: Multiple bouts of SVT Time Seen by Provider: 12/20/20 19:00 Source: patient and EMS Mode of arrival: EMS Limitations: no limitations History of Present Illness HPI narrative: This is a 65-year-old male comes emergency department with multiple bouts of SVT. Patient states he has had 6 episodes today. He can feel when his heart is fast. He has spasm in his chest when this occurs. Today he was dizzy and he states that he did pass out. Patient was just seen here about 2 days ago diagnosed with colitis and started on Augmentin. Patient states he has had some hot flashes which he normally attributes to his Lupron. He denies any headache currently. He does have a small laceration to the back of his head. Patient denies any neck pain, no back pain. He denies any chest pain or shortness of breath currently. He spontaneously cardioverted during transport without any other intervention with EMS. Patient denies any nausea or vomiting he has felt dehydrated. He has not had any issues with bowel movements, no black or bloody stools. He does typically have pain with urination and this is been worsening time. Patient has known prostate cancer he has had brachytherapy along with radiation. He states that he has had an ablation in the past. He was recently started on antibiotic 2 days ago. He also states he has had some pain in his lower extremity but no swelling. He believes he rolled his ankle. Related Data Home Medications Medication Instructions Recorded Confirmed cyclobenzaprine 5 mg tablet 5 mg PO TID PRN tab 03/20/19 12/20/20 tamsulosin 0.4 mg PO QPM 08/15/19 12/20/20 aspirin 81 mg PO QAM 11/06/19 12/20/20 oxycodone 10 mg PO Q4H PRN 12/20/20 12/20/20 megestrol 20 mg PO BID 12/21/20 12/21/20 Previous Rx's Medication Instructions Recorded ondansetron 4 mg disintegrating 4 mg PO Q6H PRN #30 tab 06/19/19 tablet simvastatin 40 mg tablet 40 mg PO QPM #90 tab 08/12/20 omeprazole 40 mg capsule,delayed 40 mg PO BID #180 cap 09/04/20 release lisinopril 40 mg tablet 40 mg PO BID #180 tab 11/04/20 metoprolol tartrate 75 mg PO BID #90 tab 11/13/20 promethazine 25 mg VT Q4-6H PRN #12 ea 11/18/20 metformin 500 mg tablet 500 mg PO BID #180 tab 11/24/20 budesonide 3 mg 6 mg PO QAM #180 each 12/05/20 capsule,delayed,extended release hydrochlorothiazide 25 mg tablet 25 mg PO DAILY #90 tab 12/05/20 amoxicillin-pot clavulanate 1 tab PO BID #14 tab 12/18/20 [Augmentin] Allergies Allergy/AdvReac Type Severity Reaction Status Date / Time No Known Drug Allergies Allergy Verified 12/18/20 13:18 Review of Systems Review of Systems ROS Unobtainable: All systems reviewed & are unremarkable except as noted in HPI and below Patient History Medical History Cannabis abuse Chronic hepatitis Coronary artery disease involving [place] coronary artery of [place] heart without angina pectoris (~2006) Diabetes type 2, controlled Diabetes type 2, uncontrolled Diabetic peripheral neuropathy Diverticular disease Diverticulosis of large intestine (03/31/12) Essential hypertension Generalized anxiety disorder Hepatitis C Kidney stones Mixed hyperlipidemia Paroxysmal A-fib Prostate cancer (~05/2019) Surgical History H/O heart artery stent (~2006) History of angioplasty (~12/2006) Hx of inguinal hernia surgery (~09/20/08) Hx of inguinal hernia surgery (~03/07/14) Status post laminectomy Social History marital status: unmarried,single number of children: 3 household members: none lives independently: Yes caregiver/support person: No housing: house pets and animals: No education level: high school occupational status: other 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 HEAD: No evidence of trauma except for a superficial avulsion on the posterior scalp which does not gape and does not appear to require repair, no raccoon/Carty sign. NECK: Nontender, painless range of motion, trachea midline Negative for Nexus criteria, there is no line tenderness, distracting injury, altered mental status, neuro deficit, recent EtOH. EYES: PERRLA, EOMI ENT: External inspection normal, trachea is midline, TM's are normal no hemotypanum, Nares are clear, no septal hematoma, no dental or oral injury, airway is normal and with normal occlusion, No bony tenderness, dry mucous membranes RESP: Chest is nontender to palpation and has symmetric movement, no ecchymosis, breath sounds are normal no crackles, wheezes or rales CVS: Heart sounds are normal, no murmur noted, No JVD. ABG/GI: Nontender, soft, normal bowel sounds, no distention, no organomegaly, pelvic rock is negative NEURO: Oriented AOx3, neuro is grossly intact, sensation and motor is normal all 4 extremities moving, cranial nerves II through XII are intact, GCS is 15 PSYCH: Normal mood and affect SKIN: Intact other than described as above, warm and dry, no crepitus and without decubitus BACK: No CVA tenderness, no vertebral tenderness, no step-off's, no crepitus EXT: Atraumatic, hips are nontender, no pedal edema, normal color and temperature, normal range of motion of extremities with normal tendon exam, 2+ pulses in all four extremities Initial Vital Signs Initial Vital Signs: Vital Signs Pulse Rate 80 12/20/20 19:15 Respiratory Rate 20 12/20/20 19:15 Blood Pressure 156/102 H 12/20/20 19:15 Pulse Oximetry 99 12/20/20 19:15 Scores GCS [place] coma scale eye opening: Spontaneous Marcy coma scale verbal response: Orientated [place] coma scale motor response: Obey commands Marcy coma scale total score: 15 Course Orders Ordered: ED Orders 12/20/20 19:55 Blood Culture Stat Complete Blood Count AUTO DIFF Stat Comprehensive Metabolic Panel Stat D Dimer Stat Lactate (Lactic Acid) Stat Lipase Stat Magnesium Stat NT-proBNP (BNP-Adult 18+) Stat Procalcitonin Stat Prothrombin Time INR Stat Thyroid Stimulating Hormone Stat Troponin & CK Cardiac Panel Stat 12/20/20 20:55 CT head/brain wo con Stat 12/20/20 21:26 CT abdomen pelvis w con Stat 12/20/20 21:59 CT angio chest PE protocol Stat Discontinued Medications Sodium Chloride (Normal Saline 0.9%) 1,000 mls @ 150 mls/hr IV CONT KAITLIN Last Infusion: 12/20/20 21:41 Dose: 0 mls/hr Documented by: Admin: 12/20/20 19:25 Dose: 150 mls/hr Documented by: THANH Magnesium Sulfate (Magnesium Sulfate) 2 gm in 50 mls @ 150 mls/hr IV NOW ONE Stop: 12/21/20 00:24 Last Infusion: 12/21/20 02:18 Dose: 0 mls/hr Documented by: THANH Cosigned by: ESNODGRASS Admin: 12/21/20 00:18 Dose: 25 mls/hr Documented by: THANH Cosigned by: CVANCE Morphine Sulfate (Morphine 4 Mg/Ml Inj) 4 mg IV NOW ONE Stop: 12/20/20 22:40 Last Admin: 12/20/20 22:41 Dose: 4 mg Documented by: THANH Morphine Sulfate (Morphine 4 Mg/Ml Inj) 4 mg IV NOW ONE Stop: 12/20/20 23:59 Last Admin: 12/21/20 00:16 Dose: 4 mg Documented by: THANH Morphine Sulfate (Morphine 4 Mg/Ml Inj) 4 mg IV NOW ONE Stop: 12/21/20 02:06 Last Admin: 12/21/20 02:16 Dose: 4 mg Documented by: THANH Oxycodone HCl (Oxycodone Ir 5 Mg Tablet) 10 mg PO NOW ONE Stop: 12/20/20 21:38 Last Admin: 12/20/20 21:56 Dose: 10 mg Documented by: THANH Potassium Chloride (Potassium Chloride 20 Meq/15 Ml Udc) 40 meq PO NOW ONE Stop: 12/21/20 00:42 Last Admin: 12/21/20 01:17 Dose: 40 meq Documented by: THANH Potassium Chloride (Potassium Chloride 20 Meq/15 Ml Udc) 20 meq PO NOW ONE Stop: 12/21/20 00:43 Last Admin: 12/21/20 01:17 Dose: 20 meq Documented by: THANH Consultations Consultation #1: -Would like patient to be transferred to [facility] for observation. Feels patient should have option for Cardiology to be involved with his care. Time: 00:10 Consultation #2: Dr. Hansen with cardiology, does recommend optimizing patient's magnesium. Raising his potassium greater than 4 with 60meq of potassium and does recommend that patient's metoprolol could be increased to 100 mg twice daily. He will see patient at [facility] if he is transferred there. Time: 00:24 Consultation #3: Dr. Dawson, hospitalist at [facility] accepts patient for transfer. They will repeat troponin there. Time: 01:09 Vital Signs Vital signs: Vital Signs - 8 hr 12/20/20 20:30 12/20/20 21:00 12/20/20 21:31 Pulse Rate 80 72 69 Respiratory Rate 13 10 L Blood Pressure 135/90 140/92 H Pulse Oximetry 98 98 98 12/20/20 21:32 12/20/20 22:00 12/20/20 22:30 Pulse Rate 70 74 69 Respiratory Rate 16 17 10 L Blood Pressure 152/94 H 176/98 H Pulse Oximetry 98 99 99 12/20/20 23:00 12/20/20 23:30 12/20/20 23:55 Pulse Rate 66 67 61 Respiratory Rate 20 19 14 Blood Pressure 164/99 H Pulse Oximetry 98 98 99 12/20/20 23:57 12/21/20 00:00 12/21/20 00:28 Pulse Rate 64 67 68 Respiratory Rate 12 17 15 Blood Pressure 164/99 H 195/110 H Pulse Oximetry 98 99 99 12/21/20 00:30 12/21/20 01:00 12/21/20 01:01 Pulse Rate 71 79 81 Respiratory Rate 12 28 H 16 Blood Pressure 179/103 H 202/159 H Pulse Oximetry 98 98 98 12/21/20 01:07 12/21/20 01:30 12/21/20 02:00 Pulse Rate 71 69 67 Respiratory Rate 16 13 13 Blood Pressure 189/106 H 170/106 H 159/96 H Pulse Oximetry 98 98 98 MDM - Arrhythmia/Palpitations Lab Data Attestation: I reviewed the patient's lab results. Result diagrams: 12/20/20 19:55 12/20/20 19:55 Labs: Lab Results 12/20/20 12/20/20 12/20/20 Range/Units 19:09 19:55 19:55 WBC 4.7 (4.5-11.0) X10^3/uL RBC 4.34 L (4.5-5.9) X10^6/uL Hgb 14.6 (13.5-17.5) g/dL Hct 41.3 (41-53) % MCV 95.0 (80-100) fL MCH 33.7 (26-34) PG MCHC 35.4 (30-36) % RDW 12.8 (11.6-14.8) % Plt Count 89 L (150-400) X10^3/uL Neut % (Auto) 61.2 (50-75) % Lymph % (Auto) 22.5 L (25-40) % Benzie % (Auto) 14.8 H (3-14) % Eos % (Auto) 0.9 L (2-4) % Baso % (Auto) 0.6 (0-2) % Neut # (Auto) 2900 (1094-4646) /uL Lymph # (Auto) 1100 (8907-0349) /uL Benzie # (Auto) 700 (0-900) /uL Eos # (Auto) 0 (0-450) /uL Baso # (Auto) 0 (0-100) /uL PT 12.2 (10.1-12.7) SECONDS INR 1.1 (0.9-1.3) D-Dimer (<230) ng/mL Sodium (137-145) mmol/L Potassium (3.4-5.1) mmol/L Chloride (98-107) mmol/L Carbon Dioxide (22-32) mmol/L BUN (9-20) mg/dL Creatinine (0.66-1.25) mg/dL Estimated GFR (>60) mL/min BUN/Creatinine Ratio (6-22) Glucose (80-110) mg/dL Lactate (0.7-2.1) mmol/L Calcium (8.4-10.2) mg/dL Magnesium (1.6-2.3) mg/dL Total Bilirubin (0.2-1.3) mg/dL AST (17-59) IU/L ALT (<50) IU/L Alkaline Phosphatase (38-126) U/L Total Creatine Kinase (55-170) U/L CK-MB (CK-2) CK-MB (CK-2) Rel Index Troponin I (0.01-0.034) ng/mL NT-Pro-B Natriuret Pep (<125) pg/mL Total Protein (6.3-8.2) g/dL Albumin (3.5-5.0) g/dL Globulin (1.7-4.1) g/dL Albumin/Globulin Ratio (1.0-2.8) Lipase (23-300) U/L Procalcitonin (<0.5) ng/mL TSH (0.47-4.68) uIU/mL SARS-CoV-2 (PCR) Negative (Negative) 12/20/20 12/20/20 12/20/20 Range/Units 19:55 19:55 19:55 WBC (4.5-11.0) X10^3/uL RBC (4.5-5.9) X10^6/uL Hgb (13.5-17.5) g/dL Hct (41-53) % MCV (80-100) fL MCH (26-34) PG MCHC (30-36) % RDW (11.6-14.8) % Plt Count (150-400) X10^3/uL Neut % (Auto) (50-75) % Lymph % (Auto) (25-40) % Benzie % (Auto) (3-14) % Eos % (Auto) (2-4) % Baso % (Auto) (0-2) % Neut # (Auto) (6571-8472) /uL Lymph # (Auto) (4651-3316) /uL Benzie # (Auto) (0-900) /uL Eos # (Auto) (0-450) /uL Baso # (Auto) (0-100) /uL PT (10.1-12.7) SECONDS INR (0.9-1.3) D-Dimer (<230) ng/mL Sodium 139 (137-145) mmol/L Potassium 3.5 (3.4-5.1) mmol/L Chloride 108 H (98-107) mmol/L Carbon Dioxide 24 (22-32) mmol/L BUN 31 H (9-20) mg/dL Creatinine 0.69 (0.66-1.25) mg/dL Estimated GFR > 60.0 (>60) mL/min BUN/Creatinine Ratio 44.9 H (6-22) Glucose 165 H D (80-110) mg/dL Lactate (0.7-2.1) mmol/L Calcium 9.2 (8.4-10.2) mg/dL Magnesium 1.3 L (1.6-2.3) mg/dL Total Bilirubin 0.4 (0.2-1.3) mg/dL AST 286 H (17-59) IU/L ALT 335 H (<50) IU/L Alkaline Phosphatase 103 (38-126) U/L Total Creatine Kinase 40 L (55-170) U/L CK-MB (CK-2) TNP CK-MB (CK-2) Rel Index TNP Troponin I 0.020 (0.01-0.034) ng/mL NT-Pro-B Natriuret Pep 493 H (<125) pg/mL Total Protein 6.6 (6.3-8.2) g/dL Albumin 3.4 L (3.5-5.0) g/dL Globulin 3.2 (1.7-4.1) g/dL Albumin/Globulin Ratio 1.1 (1.0-2.8) Lipase 137 D (23-300) U/L Procalcitonin 0.22 (<0.5) ng/mL TSH 2.56 (0.47-4.68) uIU/mL SARS-CoV-2 (PCR) (Negative) 12/20/20 12/20/20 12/20/20 Range/Units 19:55 19:55 22:20 WBC (4.5-11.0) X10^3/uL RBC (4.5-5.9) X10^6/uL Hgb (13.5-17.5) g/dL Hct (41-53) % MCV (80-100) fL MCH (26-34) PG MCHC (30-36) % RDW (11.6-14.8) % Plt Count (150-400) X10^3/uL Neut % (Auto) (50-75) % Lymph % (Auto) (25-40) % Benzie % (Auto) (3-14) % Eos % (Auto) (2-4) % Baso % (Auto) (0-2) % Neut # (Auto) (4954-0675) /uL Lymph # (Auto) (5547-5715) /uL Benzie # (Auto) (0-900) /uL Eos # (Auto) (0-450) /uL Baso # (Auto) (0-100) /uL PT (10.1-12.7) SECONDS INR (0.9-1.3) D-Dimer 1497 H (<230) ng/mL Sodium (137-145) mmol/L Potassium (3.4-5.1) mmol/L Chloride (98-107) mmol/L Carbon Dioxide (22-32) mmol/L BUN (9-20) mg/dL Creatinine (0.66-1.25) mg/dL Estimated GFR (>60) mL/min BUN/Creatinine Ratio (6-22) Glucose (80-110) mg/dL Lactate 3.4 H 1.9 (0.7-2.1) mmol/L Calcium (8.4-10.2) mg/dL Magnesium (1.6-2.3) mg/dL Total Bilirubin (0.2-1.3) mg/dL AST (17-59) IU/L ALT (<50) IU/L Alkaline Phosphatase (38-126) U/L Total Creatine Kinase (55-170) U/L CK-MB (CK-2) CK-MB (CK-2) Rel Index Troponin I (0.01-0.034) ng/mL NT-Pro-B Natriuret Pep (<125) pg/mL Total Protein (6.3-8.2) g/dL Albumin (3.5-5.0) g/dL Globulin (1.7-4.1) g/dL Albumin/Globulin Ratio (1.0-2.8) Lipase (23-300) U/L Procalcitonin (<0.5) ng/mL TSH (0.47-4.68) uIU/mL SARS-CoV-2 (PCR) (Negative) Urine Dip Bedside Urine Glucose Negative Bedside Urine Bilirubin - Negative Bedside Urine Ketone - Negative Urine Specific [place] 1.020 Bedside Urine Occult Blood - Negative Bedside Urine pH 6.0 Bedside Urine Protein - Negative Bedside Urine Urobilinogen - Negative Bedside Urine Nitrite - Negative Bedside Urine Leukocytes - Negative Esterase Imaging Data Chest x-ray: Attestation: I personally reviewed and interpreted this imaging study as follows: CT scan - head: Radiologist's Impresson: [address] [id number] Scan ReportSigned Patient: Brennan Marmolejo CMR#: [id number]: 6Acct:[id number]/Sex: 65 / MDate of Service: 12/20/20Loc: EDAccession Number: [id number] Procedure: CT head/brain wo con Ordering Provider: Ashley Carrasco D.O. PROCEDURE: CT HEAD/BRAIN WO CON INDICATIONS: svt, syncope. TECHNIQUE: Noncontrast 4.5 mm thick angled axial sections acquired from the foramen magnum to the vertex, with coronal and sagittal reformats. For radiation dose reduction, the following was used: automated exposure control, adjustment of mA and/or kV according to patient size. COMPARISON: None. FINDINGS: Image quality: Excellent. CSF spaces: Basal cisterns are patent. No extra-axial fluid collections. Ventricles are normal in size and shape. Brain: No midline shift. No intracranial masses or hemorrhage. Valerio-white matter interface is normal. Skull and face: Calvarium and visualized facial bones are intact, without suspicious lesions. Sinuses: Visualized sinuses and mastoids are clear. IMPRESSION: No acute intracranial abnormality. Dictated by: Odin Morin M.D. on 12/20/2020 at 21:23 Approved by: Odin Morin M.D. on 12/20/2020 at 21:23 CT scan - chest: Radiologist's Impresson: Negative for pulmonary embolism. Negative for aortic aneurysm. Calcific atherosclerosis. Mild bibasilar atelectasis. Degenerative spondylosis. CT scan - abdomen/pelvis: Radiologist's Impresson: No evidence of acute abdominal or pelvic process. Contracted gallbladder limiting its evaluation. Colonic diverticulosis without diverticulitis. Small fat containing left inguinal hernia. Vascular calcific atherosclerosis. Degenerative spondylosis. ECG Data Attestation: I personally reviewed and interpreted this ECG as follows: Interpretation: Sinus rhythm, with occasional PVC rate of 79, VT 174, QRS 74, QTC 428. No acute ST changes noted. MDM Narrative Medical decision making narrative: This is a 65-year-old male who arrives with complaint of recurrent episodes of SVT today as well as yesterday. Patient was recently started on Augmentin for colitis. He states his abdominal pain has been improving. He had dizziness during what he felt was tachycardia 1 of his typical SVT episodes. He believes he lost consciousness and did hit his head. He has a small superficial laceration on his scalp which does not appear to require repair. Patient's spontaneously cardioverted and route. He is complaining of right-sided chest pain which he believes happened from his fall. He has a small abrasion on his anterior chest consistent with hitting a chair. Patient has not had any additional episodes in the department. He does have some risk factors for pulmonary emboli with his history of prostate cancer which he is currently in treatment for. Dimer was elevated and PE angiography is negative. No obvious rib fractures were noted. Patient's abdominal CT was included as well as he recently had colitis in his lactate was elevated. They do not appreciate his colitis on his imaging today. Patient's labs show a negative troponin. Patient has not had any recurrent episodes of SVT in the department. His labs show a thrombocytopenia which is at baseline. His BUN is elevated consistent with his exam findings. His lactate was elevated at 3.4 improved to 1.9. He is hypo magnesium this is currently being replaced. He has chronically elevated liver enzymes and patient has known hepatitis-C. Covid swab is negative. With patient's recurrent episodes of SVT at home, syncope and electrolyte abnormalities felt it would be appropriate to observe the patient overnight. Patient's primary care physician Dr. Vasques feels patient would be more appropriately watched at [facility] where there is Cardiology available if patient needs it. I did discuss this with Dr. Hansen recommends full replacement of his magnesium, he recommends 60 mEq of potassium to correct his level closer to 4. And patient's metoprolol can be increased to 100 mg b.i.d. when discharged home. Discharge Plan Departure Patient Disposition: [facility] Clinical Impression: Paroxysmal supraventricular tachycardia, Hypomagnesemia Prescriptions: No Action ondansetron 4 mg tablet,disintegrating 4 mg PO Q6H PRN (Reason: Nausea) Qty: 30 RF: 3 simvastatin 40 mg tablet 40 mg PO QPM Qty: 90 RF: 1 omeprazole 40 mg capsule,delayed release(DR/EC) 40 mg PO BID Qty: 180 RF: 1 metformin 500 mg tablet 500 mg PO BID Qty: 180 RF: 1 budesonide 3 mg capsule,delayed,extend.release 6 mg PO QAM Qty: 180 RF: 3 cyclobenzaprine 5 mg tablet 5 mg PO TID PRN (Reason: Spasms) RF: 0 lisinopril 40 mg tablet 40 mg PO BID Qty: 180 RF: 3 hydrochlorothiazide 25 mg tablet 25 mg PO DAILY Qty: 90 RF: 3 aspirin 81 mg Tablet,Chewable 81 mg PO QAM RF: 0 oxycodone 5 mg tablet 10 mg PO Q4H PRN (Reason: pain) RF: 0 megestrol 20 mg tablet 20 mg PO BID RF: 0 tamsulosin 0.4 mg capsule 0.4 mg PO QPM RF: 0 metoprolol tartrate 50 mg Tablet 75 mg PO BID Qty: 90 RF: 4 promethazine 25 mg suppository 25 mg VT Q4-6H PRN (Reason: nausea and vomiting) Qty: 12 RF: 0 amoxicillin-pot clavulanate [Augmentin] 875-125 mg tablet 1 tab PO BID Qty: 14 RF: 0 Referrals: Khang Vasques MD [Primary Care Provider] -
[2020-12-20] MEDS: SODIUM CHLORIDE 0.9% 1,000 ML 150 ML IV (19:25)
[2020-12-20 20:13] LABS: Add Manual Diff / Slide Review NO; Basophils Absolute Auto 0 /uL (0-100); Basophils Percent Auto 0.6 % (0-2); Eosinophils Absolute Auto 0 /uL (0-450); Eosinophils Percent Auto 0.9 % (2-4); Hematocrit 41.3 % (41-53); Hemoglobin 14.6 g/dL (13.5-17.5); Lymphocytes Absolute Auto 1100 /uL (1100-4500); Lymphocytes Percent Auto 22.5 % (25-40); Mean Corpuscular HGB Conc 35.4 % (30-36); Mean Corpuscular Hemoglobin 33.7 PG (26-34); Monocytes Absolute Auto 700 /uL (0-900); Monocytes Percent Auto 14.8 % (3-14); Neutrophils Absolute Auto 2900 /uL (1500-7000); Neutrophils Percent Auto 61.2 % (50-75); Platelet Count 89 X10^3/uL (150-400); Red Blood Cell Count 4.34 X10^6/uL (4.5-5.9); Red Cell Distribution Width 12.8 % (11.6-14.8); White Blood Cell Count 4.7 X10^3/uL (4.5-11.0)
[2020-12-20 20:30] LABS: COVID19 - ADMIT (NP swab/PCR) Negative (Negative)
[2020-12-20 20:32] LABS: INR 1.1 (0.9-1.3); Prothrombin Time 12.2 SECONDS (10.1-12.7)
[2020-12-20 20:38] LABS: Alanine Aminotransferase 335 IU/L (<50); Albumin 3.4 g/dL (3.5-5.0); Albumin Globulin Ratio 1.1 (1.0-2.8); Alkaline Phosphatase 103 U/L (38-126); Aspartate Aminotransferase 286 IU/L (17-59); BUN Creatinine Ratio 44.9 (6-22); Bilirubin Total 0.4 mg/dL (0.2-1.3); Blood Urea Nitrogen 31 mg/dL (9-20); Calcium 9.2 mg/dL (8.4-10.2); Carbon Dioxide 24 mmol/L (22-32); Chloride 108 mmol/L (98-107); Creatine Kinase 40 U/L (55-170); Estimated Glomerular Filt Rate > 60.0 mL/min (>60); Globulin 3.2 g/dL (1.7-4.1); Glucose 165 mg/dL (80-110); Magnesium 1.3 mg/dL (1.6-2.3); Potassium 3.5 mmol/L (3.4-5.1); Sodium 139 mmol/L (137-145); Total Protein 6.6 g/dL (6.3-8.2)
[2020-12-20 20:39] LABS: Lactate (Lactic Acid) 3.4 mmol/L (0.7-2.1)
[2020-12-20 20:44] LABS: Lipase 137 U/L (23-300)
[2020-12-20 20:54] LABS: NT-proBNP (BNP-Adult 18+) 493 pg/mL (<125)
--- NOTE | 2020-12-20 20:55 | DI.CT.S_ITS ---
PROCEDURE: CT HEAD/BRAIN WO CON INDICATIONS: svt, syncope. TECHNIQUE: Noncontrast 4.5 mm thick angled axial sections acquired from the foramen magnum to the vertex, with coronal and sagittal reformats. For radiation dose reduction, the following was used: automated exposure control, adjustment of mA and/or kV according to patient size. COMPARISON: None. FINDINGS: Image quality: Excellent. CSF spaces: Basal cisterns are patent. No extra-axial fluid collections. Ventricles are normal in size and shape. Brain: No midline shift. No intracranial masses or hemorrhage. Valerio-white matter interface is normal. Skull and face: Calvarium and visualized facial bones are intact, without suspicious lesions. Sinuses: Visualized sinuses and mastoids are clear. IMPRESSION: No acute intracranial abnormality. Dictated by: Odin Morin M.D. on 12/20/2020 at 21:23 Approved by: Odin Morin M.D. on 12/20/2020 at 21:23
[2020-12-20 20:56] LABS: HEMOLYSIS 51 (0-50)
[2020-12-20 21:02] LABS: Procalcitonin 0.22 ng/mL (<0.5)
[2020-12-20 21:11] LABS: Thyroid Stimulating Hormone 2.56 uIU/mL (0.47-4.68)
--- NOTE | 2020-12-20 21:26 | DI.CT.S_ITS ---
PROCEDURE: CT ABDOMEN PELVIS W CON INDICATIONS: intermittent svt, elevated lactate recent colitis diagnosis. TECHNIQUE: After the administration of intravenous contrast, 5 mm thick sections acquired from the diaphragm to the symphysis. 5 mm coronal and sagittal reformats were acquired. For radiation dose reduction, the following was used: automated exposure control, adjustment of mA and/or kV according to patient size. COMPARISON: [facility], CT, CT ABDOMEN PELVIS W CON, 11/10/2020, 11:07. [facility], CT, CT ABDOMEN PELVIS W CON, 07/08/2020, 15:12. [facility], CT, CT ABDOMEN PELVIS W CON, 11/06/2019, 12:21. [facility], CT, CT ANGIO CHEST ABDOMEN PELVIS, 06/18/2019, 11:59. [facility], CT, CT ABDOMEN PELVIS W CON, 12/18/2020, 15:29. [facility], CT, CT HEAD/BRAIN WO CON, 12/20/2020, 21:06. [facility], CT, CT ANGIO CHEST PE PROTOCOL, 12/20/2020, 21:58. FINDINGS: Image quality: Excellent. ABDOMEN: Lung bases: There is minimal dependent atelectasis. Heart size is normal. Solid organs: Liver is normal in size and enhancement. Right liver dome calcification can be seen, which is stable from prior studies and regarded to be benign. Gallbladder is largely collapsed at the time of this study. Biliary system is non dilated. Pancreas enhances normally. Spleen is normal in size and enhancement. No adrenal nodules. Kidneys demonstrate normal size and enhancement, without hydronephrosis. Peritoneum and bowel: Mild wall thickening is seen involving the sigmoid colon, which is mildly improved compared to the prior examination. Distal colonic diverticulosis can be seen. Minimal surrounding inflammatory changes are seen. No free air or significant free fluid can be seen. No abscess collection can be seen. No dilated loops of small bowel are seen. Nodes and vessels: No retroperitoneal or mesenteric adenopathy by size criteria. Aorta and inferior vena cava are normal in size. Atherosclerotic calcification is noted. Miscellaneous: No ventral hernias. PELVIS: Genitourinary: Bladder wall thickness is normal. Prostate clips can be seen. Miscellaneous: No enlarged inguinal or pelvic lymph nodes are seen. There is a fat-containing left inguinal hernia seen. Bones: No suspicious bony lesions. No vertebral body compression fractures. Age-appropriate bony degenerative changes are seen, which are worst involving the lower lumbar spine. IMPRESSION: Resolving colitis, with a small amount bowel thickening seen involving the sigmoid colon. No findings of perforation or abscess can be seen. Incidental note is made of: Benign appearing liver dome calcification Prostate clips Fat containing left inguinal hernia Note: No significant discrepancy from the preliminary report. Dictated by: Adrian Segovia M.D. on 12/21/2020 at 6:56 Approved by: Adrian Segovia M.D. on 12/21/2020 at 7:01
[2020-12-20 21:36] LABS: D Dimer 1497 ng/mL (<230)
[2020-12-20] MEDS: OXYCODONE IR 5 MG TABLET 10 MG PO (21:56)
--- NOTE | 2020-12-20 21:59 | DI.CT.S_ITS ---
PROCEDURE: CT ANGIO CHEST PE PROTOCOL INDICATIONS: multiple bouts of SVT. TECHNIQUE: After the administration of intravenous contrast, 2 mm thick sections acquired from the pulmonary apices to the posterior costophrenic angles. 3-dimensional maximum intensity projection (MIP) coronal and sagittal reformats were then acquired through the thorax. For radiation dose reduction, the following was used: automated exposure control, adjustment of mA and/or kV according to patient size. COMPARISON: [facility], CT, CT ANGIO CHEST ABDOMEN PELVIS, 06/18/2019, 11:59. [facility], CT, CT ABDOMEN PELVIS W CON, 12/20/2020, 21:58. [facility], CT, CT HEAD/BRAIN WO CON, 12/20/2020, 21:06. FINDINGS: Image quality: Excellent. Pulmonary arteries: Pulmonary arteries are normal in size, and demonstrate no intraluminal filling defects to suggest central pulmonary embolism. Lungs and pleura: Minimal dependent atelectasis can be seen. Lungs are otherwise clear. No pleural effusions or pneumothorax. Central and peripheral airways are patent. Mediastinum: Heart size is normal, without pericardial effusion. Moderate to prominent coronary artery calcification can be seen. No mediastinal or hilar adenopathy. Thoracic aorta is normal in caliber and enhancement. Esophagus is normal in caliber, without hiatal hernia. Bones and chest wall: No suspicious bony lesions. Ribs and thoracic spine appear intact throughout. Age-appropriate bony degenerative changes are seen. Thyroid gland demonstrates no significant abnormality. No axillary or supraclavicular adenopathy. Abdomen: Liver calcification can be seen involving the right liver dome. Visualized upper abdominal solid organs appear normal in the early arterial phase of enhancement. IMPRESSION: Negative for pulmonary embolism. Incidental note is made of: Minimal dependent atelectasis Moderate to prominent coronary artery calcification Right liver dome calcification Note: No significant discrepancy from the preliminary report. Dictated by: Adrian Segovia M.D. on 12/21/2020 at 6:53 Approved by: Adrian Segovia M.D. on 12/21/2020 at 6:55
[2020-12-20 22:07] LABS: Reflexed Lactate in 2 Hours Y
[2020-12-20 22:39] LABS: Lactate 2HR (Lactic Acid Rflx) 1.9 mmol/L (0.7-2.1)
[2020-12-20] MEDS: MORPHINE 4 MG/ML INJ IV (22:41)
[2020-12-21] VITALS (8 sets, daily range): BP systolic 159–202; BP diastolic 96–159; PULSE 67–81; RESP 12–28; O2SAT 98–99
[2020-12-21] MEDS: MORPHINE 4 MG/ML INJ IV ×2 (00:16→02:16)
[2020-12-21] MEDS: MAGNESIUM SULFATE 2 GM/50 ML PIGGYBACK IV (00:18)
[2020-12-21] MEDS: POTASSIUM CHLORIDE 20 MEQ/15 ML UDC PO (01:17)
[2020-12-21] MEDS: POTASSIUM CHLORIDE 20 MEQ/15 ML UDC 40 MEQ PO (01:17)
== END 2020-12-21 02:22 | disposition short-term general hospital (02) ==
PROVIDERS: Emergency Provider Emergency Medicine; PCP Internal Medicine
DX: I47.1 Supraventricular tachycardia (principal); E83.42 Hypomagnesemia; R55 Syncope and collapse; R07.9 Chest pain, unspecified; S01.01XA Laceration without foreign body of scalp, initial encounter; K52.9 Noninfective gastroenteritis and colitis, unspecified; Z20.828 Contact with and (suspected) exposure to other viral communicable diseases
CPT/HCPCS: 36415; 70450; 71045; 71275; 74177; 80053; 81003; 82550; 83605; 83690; 83735; 83880; 84145; 84443; 84484; 85025; 85379; 85610; 87040; 87635; 93005; 96361; 96365; 96366; 96375; 96376; 99285; C9803; J2270; J3475; Q9967

== ENCOUNTER 2021-01-10 13:29 | Emergency (ER) | payer OTHER, SELFPAY ==
[2020-11-12 14:07] VITALS: BMI 20.3
[2021-01-10] VITALS (40 sets, daily range): BP systolic 120–231; BP diastolic 74–122; PULSE 57–166; RESP 6–22; O2SAT 96–98; BMI 19.4
[2021-01-10] MEDS: ONDANSETRON 4 MG/2 ML INJ IV (14:06)
[2021-01-10] MEDS: HYDROMORPHONE 1 MG INJ IV ×3 (14:07→22:12)
[2021-01-10 14:08] LABS: Prothrombin Time 11.2 SECONDS (10.1-12.7)
[2021-01-10 14:11] LABS: PTT Partial Thromboplastin Tim 26 SECONDS (26.4-36.2)
[2021-01-10 14:20] LABS: Add Manual Diff / Slide Review NO; Basophils Absolute Auto 0 /uL (0-100); Basophils Percent Auto 0.3 % (0-2); Eosinophils Absolute Auto 0 /uL (0-450); Eosinophils Percent Auto 0.3 % (2-4); Hemoglobin 12.8 g/dL (13.5-17.5); Lymphocytes Absolute Auto 700 /uL (1100-4500); Lymphocytes Percent Auto 13.9 % (25-40); Mean Corpuscular HGB Conc 34.6 % (30-36); Mean Corpuscular Hemoglobin 32.4 PG (26-34); Mean Corpuscular Volume 93.5 fL (80-100); Monocytes Absolute Auto 700 /uL (0-900); Monocytes Percent Auto 13.4 % (3-14); Neutrophils Absolute Auto 3600 /uL (1500-7000); Neutrophils Percent Auto 72.1 % (50-75); Platelet Count 72 X10^3/uL (150-400); Red Blood Cell Count 3.95 X10^6/uL (4.5-5.9); Red Cell Distribution Width 12.7 % (11.6-14.8)
[2021-01-10 14:28] LABS: Alanine Aminotransferase 266 IU/L (<50); Albumin 3.4 g/dL (3.5-5.0); Alkaline Phosphatase 127 U/L (38-126); Aspartate Aminotransferase 193 IU/L (17-59); BUN Creatinine Ratio 39.2 (6-22); Bilirubin Total 1.3 mg/dL (0.2-1.3); Blood Urea Nitrogen 20 mg/dL (9-20); Carbon Dioxide 27 mmol/L (22-32); Chloride 103 mmol/L (98-107); Estimated Glomerular Filt Rate > 60.0 mL/min (>60); Globulin 3.4 g/dL (1.7-4.1); Glucose 269 mg/dL (80-110); HEMOLYSIS < 15 (0-50); Lipase 55 U/L (23-300); Potassium 2.9 mmol/L (3.4-5.1); Sodium 137 mmol/L (137-145); Total Protein 6.8 g/dL (6.3-8.2)
--- NOTE | 2021-01-10 14:34 | ED_ITS ---
HPI - Abdominal Pain <Ashleydeon Carrasco, DO - Last Filed: 01/11/21 20:18> General Chief Complaint: Abdominal Pain Stated Complaint: NVD abd pain Time Seen by Provider: 01/10/21 13:52 Source: patient, family and EMS Mode of arrival: EMS Limitations: no limitations History of Present Illness HPI narrative: This is a 65-year-old male comes to the emergency department with complaint of increasing abdominal pain. Patient has known history of prostate cancer as well as recent colitis which was treated in December at [facility] after having 6 episodes of SVT in 24 hours. Patient also has a history of SVT and is supposed to be set up for ablation. Patient does take an aspirin daily. Arrives today with persistent vomiting for several days and he has had diarrhea for the past 3 weeks. Patient has not appreciate a black or bloody stools. He has had increased abdominal pain. Patient developed chest pain in the emergency department when his heart rate is elevated to the 150 range which was not pre sent when in a normal range. He denies any shortness of breath. He feels a little lightheaded but did not have any syncope. He continues to feel little nauseated department but has not been actively vomiting. Patient has had issues maintaining his potassium and his states that this has been a chronic issue. He was last hospitalized in December. Related Data Home Medications Medication Instructions Recorded Confirmed cyclobenzaprine 5 mg tablet 5 mg PO TID PRN tab 03/20/19 01/02/21 tamsulosin 0.4 mg PO QPM 08/15/19 01/02/21 aspirin 81 mg PO QAM 11/06/19 01/02/21 oxycodone 10 mg PO Q4H PRN 12/20/20 01/02/21 megestrol 20 mg PO BID 12/21/20 01/02/21 metoprolol succinate 100 mg 100 mg PO BID tab 01/02/21 01/02/21 tablet,extended release 24 hr Previous Rx's Medication Instructions Recorded ondansetron 4 mg disintegrating 4 mg PO Q6H PRN #30 tab 06/19/19 tablet simvastatin 40 mg tablet 40 mg PO QPM #90 tab 08/12/20 omeprazole 40 mg capsule,delayed 40 mg PO BID #180 cap 09/04/20 release lisinopril 40 mg tablet 40 mg PO BID #180 tab 11/04/20 promethazine 25 mg MI Q4-6H PRN #12 ea 11/18/20 metformin 500 mg tablet 500 mg PO BID #180 tab 11/24/20 budesonide 3 mg 6 mg PO QAM #180 each 12/05/20 capsule,delayed,extended release hydrochlorothiazide 25 mg tablet 25 mg PO DAILY #90 tab 12/05/20 magnesium oxide 400 mg PO DAILY #20 tab 01/10/21 potassium chloride 10 meq PO DAILY #20 tab 01/10/21 Allergies Allergy/AdvReac Type Severity Reaction Status Date / Time No Known Drug Allergies Allergy Verified 01/10/21 13:33 Review of Systems <Ashley Carrasco DO - Last Filed: 01/11/21 20:18> Review of Systems ROS Unobtainable: All systems reviewed & are unremarkable except as noted in HPI and below Patient History <Ashley Carrasco DO - Last Filed: 01/11/21 20:18> Medical History Cannabis abuse Chronic hepatitis Coronary artery disease involving [place] coronary artery of [place] heart without angina pectoris (~2006) Diabetes type 2, controlled Diabetes type 2, uncontrolled Diabetic peripheral neuropathy Diverticulosis of large intestine (03/31/12) Essential hypertension Generalized anxiety disorder Hepatitis C Kidney stones Mixed hyperlipidemia Paroxysmal A-fib Prostate cancer (~05/2019) Surgical History H/O heart artery stent (~2006) History of angioplasty (~12/2006) Hx of inguinal hernia surgery (~09/20/08) Hx of inguinal hernia surgery (~03/07/14) Status post laminectomy Social History marital status: unmarried,single number of children: 3 household members: none lives independently: Yes caregiver/support person: No housing: house pets and animals: No education level: high school occupational status: other 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 HEENT: Head normocephalic, atraumatic, EOMI, pupils reactive, face symmetric, moist mucous membranes NECK: Supple, full range of motion CARDIOVASCULAR: Tachycardic and Regular rate and rhythm without murmurs, rubs or gallops. No JVD. No swelling in lower extremities. RESPIRATORY: Breath sounds equal bilaterally, no wheezes rales or rhonchi. No tachypnea. ABDOMEN: Soft, generalized tenderness. Normoactive bowel sounds all 4 quadrants. No guarding or rebound, rigidity, no mass : No CVA tenderness BACK: No cervical, thoracic or lumbar vertebral point tenderness. Patient has decreased range of motion. Sensation intact bilateral lower extremities. EXTREMITIES: Normal range of motion, no clubbing or edema. Neurovascularly intact NEUROLOGICAL: Cranial nerves II through XII grossly intact. Moving all extremities SKIN: Warm, dry, no petechiae, no rashes or lesions. Initial Vital Signs Initial Vital Signs: Vital Signs Pulse Oximetry 96 01/10/21 13:31 <Helen Recinos, DO - Last Filed: 01/11/21 01:51> Initial Vital Signs Initial Vital Signs: Vital Signs Pulse Oximetry 96 01/10/21 13:31 Course <Ashley Mitesh Carrasco, DO - Last Filed: 01/11/21 20:18> Orders Ordered: Discontinued Medications Adenosine (Adenosine 6 Mg/2 Ml Vial) 6 mg IV NOW ONE Stop: 01/10/21 14:48 Last Admin: 01/10/21 14:55 Dose: 6 mg Documented by: [email or web address] Adenosine (Adenosine 6 Mg/2 Ml Vial) 12 mg IV NOW ONE Stop: 01/10/21 15:02 Last Admin: 01/10/21 15:00 Dose: 12 mg Documented by: [email or web address] Diazepam (Diazepam 5 Mg Tablet) 10 mg PO NOW ONE Stop: 01/10/21 15:02 Last Admin: 01/10/21 15:11 Dose: 10 mg Documented by: ABEAMA Hydromorphone HCl (Hydromorphone 1 Mg Inj) 1 mg IV NOW ONE Stop: 01/10/21 13:54 Last Admin: 01/10/21 14:07 Dose: 1 mg Documented by: ABEAMA Hydromorphone HCl (Hydromorphone 1 Mg Inj) 1 mg IV NOW ONE Stop: 01/10/21 17:32 Last Admin: 01/10/21 17:51 Dose: 1 mg Documented by: CHRISTA Hydromorphone HCl (Hydromorphone 1 Mg Inj) 1 mg IV NOW ONE Stop: 01/10/21 22:08 Last Admin: 01/10/21 22:12 Dose: 1 mg Documented by: JOSE Sodium Chloride (Normal Saline 0.9%) 1,000 mls @ 1,000 mls/hr IV BOLUS ONE Stop: 01/10/21 15:44 Last Infusion: 01/10/21 15:54 Dose: 0 mls/hr Documented by: [email or web address] Admin: 01/10/21 14:45 Dose: 1,000 mls/hr Documented by: EAJENNIFER Potassium Chloride 40 meq/ (Sodium Chloride) 520 mls @ 130 mls/hr IV NOW ONE Stop: 01/10/21 18:45 Last Infusion: 01/10/21 20:00 Dose: 0 mls/hr Documented by: JOSE Cosigned by: KGALLAG Admin: 01/10/21 15:52 Dose: 130 mls/hr Documented by: [email or web address] Cosigned by: URVASHI Sodium Chloride (Normal Saline 0.9%) 1,000 mls @ 150 mls/hr IV CONT KAITLIN Last Infusion: 01/10/21 22:23 Dose: 0 mls/hr Documented by: Infusion: 01/10/21 22:13 Dose: 150 mls/hr Documented by: Infusion: 01/10/21 19:43 Dose: 0 mls/hr Documented by: Admin: 01/10/21 19:25 Dose: 150 mls/hr Documented by: JOSE Magnesium Sulfate (Magnesium Sulfate) 2 gm in 50 mls @ 25 mls/hr IV NOW ONE Stop: 01/10/21 21:36 Last Infusion: 01/10/21 22:23 Dose: 0 mls/hr Documented by: JOSE Cosigned by: CORIE Admin: 01/10/21 19:43 Dose: 25 mls/hr Documented by: JOSE Cosigned by: HGHARIN Ondansetron HCl (Ondansetron 4 Mg/2 Ml Inj) 4 mg IV NOW ONE Stop: 01/10/21 13:54 Last Admin: 01/10/21 14:06 Dose: 4 mg Documented by: JOSSIE Potassium Chloride (Potassium Chloride 20 Meq Tab) 40 meq PO NOW ONE Stop: 01/10/21 14:39 Last Admin: 01/10/21 18:50 Dose: Not Given Documented by: CHRISTA Potassium Chloride (Potassium Chloride 20 Meq Tab) 40 meq PO NOW ONE Stop: 01/10/21 17:32 Last Admin: 01/10/21 17:32 Dose: Not Given Documented by: CTRARIANNA Reevaluation(s) Reevaluation #1: Patient and I discussed his findings today. Patient does not want CPR/intubation. He would be open to cardiac shock if SVT occurred and required it but does not wish for other aggressive measures. Time: 18:30 Consultations Consultation #1: Dr. Alejo with cardiology. Reviewed CT imaging regarding and suspects more apical thinning. Does not appreciate any bulge and suspects this is normal physiologic thinning. Time: 17:20 Consultation #2: Dr. Gonzalez. If patient is full code and wants aggressive management would ask that we ship to [facility]. Patient does not want to be intubated or have any CPR but is open to adenosine or cardiac shock for SVT but does not want heroic measures. Dr. Gonzalez asks for transfer to larger facility. Time: 18:24 Vital Signs Vital signs: Vital Signs - 8 hr 01/10/21 18:00 01/10/21 18:30 01/10/21 18:58 Pulse Rate 80 83 67 Respiratory Rate 12 Blood Pressure 138/82 Pulse Oximetry 96 96 97 01/10/21 19:00 01/10/21 19:30 01/10/21 20:00 Pulse Rate 70 71 71 Respiratory Rate 12 11 L Blood Pressure 135/81 131/78 Pulse Oximetry 97 96 97 05/01/21 20:01 01/10/21 20:30 01/10/21 21:00 Pulse Rate 73 72 76 Respiratory Rate 11 L 12 11 L Blood Pressure 136/78 166/95 H 145/91 H Pulse Oximetry 96 97 96 01/10/21 21:30 01/10/21 22:00 01/10/21 22:44 Pulse Rate 73 80 76 Respiratory Rate 11 L 12 Blood Pressure 144/89 H 156/90 H 144/90 H Pulse Oximetry 96 98 96 <Helen Recinos, DO - Last Filed: 01/11/21 01:51> Orders Ordered: Discontinued Medications Adenosine (Adenosine 6 Mg/2 Ml Vial) 6 mg IV NOW ONE Stop: 01/10/21 14:48 Last Admin: 01/10/21 14:55 Dose: 6 mg Documented by: [email or web address] Adenosine (Adenosine 6 Mg/2 Ml Vial) 12 mg IV NOW ONE Stop: 01/10/21 15:02 Last Admin: 01/10/21 15:00 Dose: 12 mg Documented by: CTRARIANNA Diazepam (Diazepam 5 Mg Tablet) 10 mg PO NOW ONE Stop: 01/10/21 15:02 Last Admin: 01/10/21 15:11 Dose: 10 mg Documented by: CTREAJENNIFER Hydromorphone HCl (Hydromorphone 1 Mg Inj) 1 mg IV NOW ONE Stop: 01/10/21 13:54 Last Admin: 01/10/21 14:07 Dose: 1 mg Documented by: CTREAMA Hydromorphone HCl (Hydromorphone 1 Mg Inj) 1 mg IV NOW ONE Stop: 01/10/21 17:32 Last Admin: 01/10/21 17:51 Dose: 1 mg Documented by: CHRISTA Hydromorphone HCl (Hydromorphone 1 Mg Inj) 1 mg IV NOW ONE Stop: 01/10/21 22:08 Last Admin: 01/10/21 22:12 Dose: 1 mg Documented by: JOSE Sodium Chloride (Normal Saline 0.9%) 1,000 mls @ 1,000 mls/hr IV BOLUS ONE Stop: 01/10/21 15:44 Last Infusion: 01/10/21 15:54 Dose: 0 mls/hr Documented by: [email or web address] Admin: 01/10/21 14:45 Dose: 1,000 mls/hr Documented by: JOSSIE Potassium Chloride 40 meq/ (Sodium Chloride) 520 mls @ 130 mls/hr IV NOW ONE Stop: 01/10/21 18:45 Last Infusion: 01/10/21 20:00 Dose: 0 mls/hr Documented by: JOSE Cosigned by: CORIE Admin: 01/10/21 15:52 Dose: 130 mls/hr Documented by: JOSSIE Cosigned by: URVASHI Sodium Chloride (Normal Saline 0.9%) 1,000 mls @ 150 mls/hr IV CONT KAITLIN Last Infusion: 01/10/21 22:23 Dose: 0 mls/hr Documented by: Infusion: 01/10/21 22:13 Dose: 150 mls/hr Documented by: Infusion: 01/10/21 19:43 Dose: 0 mls/hr Documented by: Admin: 01/10/21 19:25 Dose: 150 mls/hr Documented by: JOSE Magnesium Sulfate (Magnesium Sulfate) 2 gm in 50 mls @ 25 mls/hr IV NOW ONE Stop: 01/10/21 21:36 Last Infusion: 01/10/21 22:23 Dose: 0 mls/hr Documented by: JOSE Cosigned by: CORIE Admin: 01/10/21 19:43 Dose: 25 mls/hr Documented by: JOSE Cosigned by: HGUBERN Ondansetron HCl (Ondansetron 4 Mg/2 Ml Inj) 4 mg IV NOW ONE Stop: 01/10/21 13:54 Last Admin: 01/10/21 14:06 Dose: 4 mg Documented by: JOSSIE Potassium Chloride (Potassium Chloride 20 Meq Tab) 40 meq PO NOW ONE Stop: 01/10/21 14:39 Last Admin: 01/10/21 18:50 Dose: Not Given Documented by: CHRISTA Potassium Chloride (Potassium Chloride 20 Meq Tab) 40 meq PO NOW ONE Stop: 01/10/21 17:32 Last Admin: 01/10/21 17:32 Dose: Not Given Documented by: JOSSIE Vital Signs Vital signs: Vital Signs - 8 hr 01/10/21 18:00 01/10/21 18:30 01/10/21 18:58 Pulse Rate 80 83 67 Respiratory Rate 12 Blood Pressure 138/82 Pulse Oximetry 96 96 97 01/10/21 19:00 01/10/21 19:30 01/10/21 20:00 Pulse Rate 70 71 71 Respiratory Rate 12 11 L Blood Pressure 135/81 131/78 Pulse Oximetry 97 96 97 01/10/21 20:01 01/10/21 20:30 01/10/21 21:00 Pulse Rate 73 72 76 Respiratory Rate 11 L 12 11 L Blood Pressure 136/78 166/95 H 145/91 H Pulse Oximetry 96 97 96 01/10/21 21:30 01/10/21 22:00 01/10/21 22:44 Pulse Rate 73 80 76 Respiratory Rate 11 L 12 Blood Pressure 144/89 H 156/90 H 144/90 H Pulse Oximetry 96 98 96 MDM - Abdominal Pain <Ashley Carrasco DO - Last Filed: 01/11/21 20:18> Lab Data Attestation: I reviewed the patient's lab results. Result diagrams: 01/10/21 13:30 01/10/21 20:15 Labs: Lab Results 01/10/21 01/10/21 01/10/21 Range/Units 13:30 13:30 13:30 WBC 5.0 (4.5-11.0) X10^3/uL RBC 3.95 L (4.5-5.9) X10^6/uL Hgb 12.8 L (13.5-17.5) g/dL Hct 37.0 L (41-53) % MCV 93.5 (80-100) fL MCH 32.4 (26-34) PG MCHC 34.6 (30-36) % RDW 12.7 (11.6-14.8) % Plt Count 72 L (150-400) X10^3/uL Neut % (Auto) 72.1 (50-75) % Lymph % (Auto) 13.9 L (25-40) % [place] % (Auto) 13.4 (3-14) % Eos % (Auto) 0.3 L (2-4) % Baso % (Auto) 0.3 (0-2) % Neut # (Auto) 3600 (9644-9552) /uL Lymph # (Auto) 700 L (6234-8773) /uL [place] # (Auto) 700 (0-900) /uL Eos # (Auto) 0 (0-450) /uL Baso # (Auto) 0 (0-100) /uL PT 11.2 (10.1-12.7) SECONDS INR 1.0 (0.9-1.3) APTT 26 L (26.4-36.2) SECONDS Sodium 137 (137-145) mmol/L Potassium 2.9 L (3.4-5.1) mmol/L Chloride 103 (98-107) mmol/L Carbon Dioxide 27 (22-32) mmol/L BUN 20 (9-20) mg/dL Creatinine 0.51 L (0.66-1.25) mg/dL Estimated GFR > 60.0 (>60) mL/min BUN/Creatinine Ratio 39.2 H (6-22) Glucose 269 H (80-110) mg/dL Calcium 9.0 (8.4-10.2) mg/dL Magnesium (1.6-2.3) mg/dL Total Bilirubin 1.3 (0.2-1.3) mg/dL AST 193 H (17-59) IU/L ALT 266 H (<50) IU/L Alkaline Phosphatase 127 H (38-126) U/L Total Creatine Kinase (55-170) U/L CK-MB (CK-2) CK-MB (CK-2) Rel Index Troponin I (0.01-0.034) ng/mL NT-Pro-B Natriuret Pep (<125) pg/mL Total Protein 6.8 (6.3-8.2) g/dL Albumin 3.4 L (3.5-5.0) g/dL Globulin 3.4 (1.7-4.1) g/dL Albumin/Globulin Ratio 1.0 (1.0-2.8) Lipase 55 (23-300) U/L TSH (0.47-4.68) uIU/mL Urine RBC (0-5/HPF) Urine WBC (0-5/HPF) Amorphous Sediment Urine Bacteria (None) Ur Culture Indicated? SARS-CoV-2 (PCR) (Negative) 01/10/21 01/10/21 01/10/21 Range/Units 13:30 13:30 13:30 WBC (4.5-11.0) X10^3/uL RBC (4.5-5.9) X10^6/uL Hgb (13.5-17.5) g/dL Hct (41-53) % MCV (80-100) fL MCH (26-34) PG MCHC (30-36) % RDW (11.6-14.8) % Plt Count (150-400) X10^3/uL Neut % (Auto) (50-75) % Lymph % (Auto) (25-40) % [place] % (Auto) (3-14) % Eos % (Auto) (2-4) % Baso % (Auto) (0-2) % Neut # (Auto) (2447-6226) /uL Lymph # (Auto) (7512-2719) /uL [place] # (Auto) (0-900) /uL Eos # (Auto) (0-450) /uL Baso # (Auto) (0-100) /uL PT (10.1-12.7) SECONDS INR (0.9-1.3) APTT (26.4-36.2) SECONDS Sodium (137-145) mmol/L Potassium (3.4-5.1) mmol/L Chloride (98-107) mmol/L Carbon Dioxide (22-32) mmol/L BUN (9-20) mg/dL Creatinine (0.66-1.25) mg/dL Estimated GFR (>60) mL/min BUN/Creatinine Ratio (6-22) Glucose (80-110) mg/dL Calcium (8.4-10.2) mg/dL Magnesium 1.2 L (1.6-2.3) mg/dL Total Bilirubin (0.2-1.3) mg/dL AST (17-59) IU/L ALT (<50) IU/L Alkaline Phosphatase (38-126) U/L Total Creatine Kinase 36 L (55-170) U/L CK-MB (CK-2) TNP CK-MB (CK-2) Rel Index TNP Troponin I < 0.012 (0.01-0.034) ng/mL NT-Pro-B Natriuret Pep 659 H (<125) pg/mL Total Protein (6.3-8.2) g/dL Albumin (3.5-5.0) g/dL Globulin (1.7-4.1) g/dL Albumin/Globulin Ratio (1.0-2.8) Lipase (23-300) U/L TSH 1.17 (0.47-4.68) uIU/mL Urine RBC (0-5/HPF) Urine WBC (0-5/HPF) Amorphous Sediment Urine Bacteria (None) Ur Culture Indicated? SARS-CoV-2 (PCR) (Negative) 01/10/21 01/10/21 01/10/21 Range/Units 13:42 14:44 18:50 WBC (4.5-11.0) X10^3/uL RBC (4.5-5.9) X10^6/uL Hgb (13.5-17.5) g/dL Hct (41-53) % MCV (80-100) fL MCH (26-34) PG MCHC (30-36) % RDW (11.6-14.8) % Plt Count (150-400) X10^3/uL Neut % (Auto) (50-75) % Lymph % (Auto) (25-40) % [place] % (Auto) (3-14) % Eos % (Auto) (2-4) % Baso % (Auto) (0-2) % Neut # (Auto) (5837-6199) /uL Lymph # (Auto) (4413-2075) /uL [place] # (Auto) (0-900) /uL Eos # (Auto) (0-450) /uL Baso # (Auto) (0-100) /uL PT (10.1-12.7) SECONDS INR (0.9-1.3) APTT (26.4-36.2) SECONDS Sodium (137-145) mmol/L Potassium (3.4-5.1) mmol/L Chloride (98-107) mmol/L Carbon Dioxide (22-32) mmol/L BUN (9-20) mg/dL Creatinine (0.66-1.25) mg/dL Estimated GFR (>60) mL/min BUN/Creatinine Ratio (6-22) Glucose (80-110) mg/dL Calcium (8.4-10.2) mg/dL Magnesium (1.6-2.3) mg/dL Total Bilirubin (0.2-1.3) mg/dL AST (17-59) IU/L ALT (<50) IU/L Alkaline Phosphatase (38-126) U/L Total Creatine Kinase (55-170) U/L CK-MB (CK-2) CK-MB (CK-2) Rel Index Troponin I (0.01-0.034) ng/mL NT-Pro-B Natriuret Pep (<125) pg/mL Total Protein (6.3-8.2) g/dL Albumin (3.5-5.0) g/dL Globulin (1.7-4.1) g/dL Albumin/Globulin Ratio (1.0-2.8) Lipase (23-300) U/L TSH (0.47-4.68) uIU/mL Urine RBC None seen (0-5/HPF) Urine WBC None seen (0-5/HPF) Amorphous Sediment 3+ Urine Bacteria None seen (None) Ur Culture Indicated? Cult not indicated SARS-CoV-2 (PCR) Negative Negative (Negative) 01/10/21 01/10/21 Range/Units 20:15 20:15 WBC (4.5-11.0) X10^3/uL RBC (4.5-5.9) X10^6/uL Hgb (13.5-17.5) g/dL Hct (41-53) % MCV (80-100) fL MCH (26-34) PG MCHC (30-36) % RDW (11.6-14.8) % Plt Count (150-400) X10^3/uL Neut % (Auto) (50-75) % Lymph % (Auto) (25-40) % [place] % (Auto) (3-14) % Eos % (Auto) (2-4) % Baso % (Auto) (0-2) % Neut # (Auto) (9734-0341) /uL Lymph # (Auto) (7770-6737) /uL [place] # (Auto) (0-900) /uL Eos # (Auto) (0-450) /uL Baso # (Auto) (0-100) /uL PT (10.1-12.7) SECONDS INR (0.9-1.3) APTT (26.4-36.2) SECONDS Sodium 137 (137-145) mmol/L Potassium 3.6 (3.4-5.1) mmol/L Chloride 109 H (98-107) mmol/L Carbon Dioxide 26 (22-32) mmol/L BUN 16 (9-20) mg/dL Creatinine 0.40 L (0.66-1.25) mg/dL Estimated GFR > 60.0 (>60) mL/min BUN/Creatinine Ratio 40.0 H (6-22) Glucose 199 H (80-110) mg/dL Calcium 7.9 L (8.4-10.2) mg/dL Magnesium 1.3 L (1.6-2.3) mg/dL Total Bilirubin (0.2-1.3) mg/dL AST (17-59) IU/L ALT (<50) IU/L Alkaline Phosphatase (38-126) U/L Total Creatine Kinase (55-170) U/L CK-MB (CK-2) CK-MB (CK-2) Rel Index Troponin I (0.01-0.034) ng/mL NT-Pro-B Natriuret Pep (<125) pg/mL Total Protein (6.3-8.2) g/dL Albumin (3.5-5.0) g/dL Globulin (1.7-4.1) g/dL Albumin/Globulin Ratio (1.0-2.8) Lipase (23-300) U/L TSH (0.47-4.68) uIU/mL Urine RBC (0-5/HPF) Urine WBC (0-5/HPF) Amorphous Sediment Urine Bacteria (None) Ur Culture Indicated? SARS-CoV-2 (PCR) (Negative) Point of care testing: Urine Dip Bedside Urine Glucose 250 mg/dl Bedside Urine Bilirubin - Negative Bedside Urine Ketone - Negative Urine Specific [place] 1.025 Bedside Urine Occult Blood - Negative Bedside Urine pH 7 Bedside Urine Protein - Negative Bedside Urine Urobilinogen - Negative Bedside Urine Nitrite - Negative Bedside Urine Leukocytes - Negative Esterase Imaging Data CT scan - abdomen/pelvis: Radiologist's Impression: [address] [id number] Scan ReportSigned Patient: Brennan Marmolejo CMR#: [id number]: [id number]:[id number]/Sex: 65 / MDate of Service: 01/10/21Loc: EDAccession Number: [id number] Procedure: CT abdomen pelvis w con Ordering Provider: Ashley Carrasco D.O. PROCEDURE: CT ABDOMEN PELVIS W CON INDICATIONS: worsening abd pain, pancreatic cancer TECHNIQUE: After the administration of intravenous contrast, 5 mm thick sections acquired from the diaphragm to the symphysis. 5 mm coronal and sagittal reformats were acquired. For radiation dose reduction, the following was used: automated exposure control, adjustment of mA and/or kV according to patient size. COMPARISON: [facility], CT, CT ABDOMEN PELVIS W CON, 12/18/2020, 15:29. [facility], CT, CT ANGIO CHEST PE PROTOCOL, 01/10/2021, 15:12. [facility], CT, CT ABDOMEN PELVIS W CON, 12/20/2020, 21:58. FINDINGS: Image quality: Excellent. ABDOMEN: Lung bases: Lung bases are clear. Heart size is normal. Solid organs: Cluster of calcifications within the hepatic dome are unchanged. Gallbladder is unremarkable Biliary system is non dilated. Pancreas enhances normally. There are multiple subcentimeter round hypodensities noted throughout the pancreas, not significantly changed from comparison. No discrete mass. Spleen is normal in size and enhancement. No adrenal nodules. Kidneys demonstrate normal size and enhancement, without hydronephrosis. Peritoneum and bowel: Stomach and small bowel are unremarkable without evidence of obstruction or wall thickening. There is diffuse wall thickening of the left colon extending from the splenic flexure through the rectum. Scattered left sided diverticula without evidence of surrounding inflammation. No ascites or pneumoperitoneum. Nodes and vessels: No retroperitoneal or mesenteric adenopathy by size criteria. Aorta and inferior vena cava are normal in size. There is diffuse calcified and noncalcified atherosclerosis without evidence of high-grade stenosis, occlusion, or dissection. Miscellaneous: Fat containing periumbilical hernia. PELVIS: Genitourinary: Bladder wall thickness is normal. Prostatomegaly with fiducial markers is unchanged. Miscellaneous: Fat containing left inguinal hernias. No adenopathy by size criteria. Lipoma noted within the right anterior thigh incompletely evaluated. Bones: Multilevel degenerative changes of the spine. No acute osseous abnormality. Stable lucencies within the right posterior aspect of the iliac bone. No vertebral body compression fractures. IMPRESSION: Diffuse wall thickening of the colon extending from the splenic flexure through the rectum concerning for colitis. This is similar in appearance to exam dated 12/18/2020 Multiple subcentimeter hypodensities are noted within the pancreas which are nonspecific. Consider dedicated pancreatic MRI for further evaluation. No discrete mass identified within limits of this exam. Stable lucencies within the right iliac. Additional chronic findings as above. Dictated by: Donal Shane D.O. on 01/10/2021 at 15:02 Approved by: Donal Shane D.O. on 01/10/2021 at 15:14 CT scan - chest: Radiologist's Impression: Brennan Marmolejo 65 M [address] [id number] Scan ReportSigned Patient: Brennan Marmolejo CMR#: [id number]: 1955cct:[id number]/Sex: 65 / MDate of Service: 01/10/21Loc: EDAccession Number: [id number] Procedure: CT angio chest PE protocol Ordering Provider: Ashley Carrasco D.O. PROCEDURE: CT ANGIO CHEST PE PROTOCOL INDICATIONS: tachycardia, pancreatic cancer TECHNIQUE: After the administration of intravenous contrast, 2 mm thick sections acquired from the pulmonary apices to the posterior costophrenic angles. 3-dimensional maximum intensity projection (MIP) coronal and sagittal reformats were then acquired through the thorax. For radiation dose reduction, the following was used: automated exposure control, adjustment of mA and/or kV according to patient size. COMPARISON: [facility], CT, CT ANGIO CHEST PE PROTOCOL, 12/20/2020, 21:58. FINDINGS: Image quality: Excellent. Pulmonary arteries: The main pulmonary artery is mildly enlarged measuring 3.3 centimeters in diameter. No intraluminal filling defects to suggest central pulmonary embolism. Lungs and pleura: Lungs are clear. No pleural effusions or pneumothorax. Central and peripheral airways are patent. Mild predominant basilar and dependent atelectasis. Minimal predominately paraseptal apical emphysematous changes. Mediastinum: Heart size is normal, without pericardial effusion. There is moderate multi-vessel coronary vascular calcifications. Contrast is noted extending to the apex of the ventricle concerning for infarction/aneurysm of the apex. There is thickening of the left ventricle wall. No mediastinal or hilar adenopathy by size criteria. Multiple prominent mediastinal and hilar lymph nodes are again identified.. Thoracic aorta is normal in caliber and enhancement. Esophagus is normal in caliber, without hiatal hernia. Bones and chest wall: No suspicious bony lesions. Ribs and thoracic spine appear intact throughout. Thyroid gland is unremarkable. No axillary or supraclavicular adenopathy. Abdomen: Visualized upper abdominal solid organs appear normal in the early arterial phase of enhancement. Stable hepatic dome calcification. IMPRESSION: No evidence of pulmonary embolus or right heart strain. Findings suggestive of remote a ventricular infarction with questionable aneurysm formation. This is in the setting of left ventricular hypertrophy. Moderate multi-vessel coronary vascular calcifications. Enlargement of the main pulmonary artery measuring 3.3 centimeters. Recommend correlation for pulmonary hypertension. Very mild emphysematous changes. Dictated by: Donal Shane D.O. on 01/10/2021 at 14:52 Approved by: Donal Shane D.O. on 01/10/2021 at 15:01 ECG Data Attestation: I personally reviewed and interpreted this ECG as follows: Interpretation: EKG 1. Shows sinus rhythm with sinus rhythm with a rate of 68, P are 144 QRS is 78 QTC 484. Occasional PVC. No acute ST elevation appreciated. EKG 2 shows supraventricular tachycardia rate of 151 QRS 88 QTC of 500. Patient does not have clear elevation but does appear to have some depression in lateral leads. EKG 2. After adenosine shows appropriate rate. NSR rate of 98, MI of 146, qrs of 74, QTC of 492. No ST elevation noted. Appears similar to priors MDM Narrative Medical decision making narrative: This is a 59-year-old male comes in with chronic prostate cancer, chronic abdominal pain and back pain. SVT which patient is scheduled to have an ablation 4. Patient has had some vomiting in the last 24 hours as well as diarrhea for the past 3 weeks and is hypokalemic and hypomagnesemic likely precipitating an episode of SVT in the department while he was being evaluated. Patient was converted with adenosine. He remained in a normal rhythm thereafter. Imaging was reviewed there was concern for possible ventricular aneurysm and Dr. Alejo directly reviewed patient's CT scans as well as old echos and feels this is lot a ventricular aneurysm particularly as his EKG findings are not consistent with persistent ST elevation. He recommends electrolyte management and follow up with Cardiology outpatient. Patient's col itis is still present with no worsening but no significant improvement but normal white count. Patient continued to be quite nauseated and while replacing potassium attempted to place patient in observation for management of his electrolytes overnight with likely discharge home. Dr. Garcia who is covering for Dr. Vasques felt patient would be benefit being transferred to [facility] after discussion. She did discuss that if the hospitalist service at [place] was willing to admit patient she would be agreeable to this. Jericho Mancilla [employer] would be happy to consult and feels comfortable managing patient but asks that they would be admitted to Dr. Gonzalez. Patient signed out to Dr. Recinos while awaiting discussion with [facility] hospitalist discussed todays findings, cardiology recommendations. Patient has been stable in the department since cardioversion. <Helen Recinos, DO - Last Filed: 01/11/21 01:51> Lab Data Attestation: I reviewed the patient's lab results. Labs: Lab Results 01/10/21 01/10/21 01/10/21 Range/Units 13:30 13:30 13:30 WBC 5.0 (4.5-11.0) X10^3/uL RBC 3.95 L (4.5-5.9) X10^6/uL Hgb 12.8 L (13.5-17.5) g/dL Hct 37.0 L (41-53) % MCV 93.5 (80-100) fL MCH 32.4 (26-34) PG MCHC 34.6 (30-36) % RDW 12.7 (11.6-14.8) % Plt Count 72 L (150-400) X10^3/uL Neut % (Auto) 72.1 (50-75) % Lymph % (Auto) 13.9 L (25-40) % [place] % (Auto) 13.4 (3-14) % Eos % (Auto) 0.3 L (2-4) % Baso % (Auto) 0.3 (0-2) % Neut # (Auto) 3600 (5566-5130) /uL Lymph # (Auto) 700 L (1270-7472) /uL [place] # (Auto) 700 (0-900) /uL Eos # (Auto) 0 (0-450) /uL Baso # (Auto) 0 (0-100) /uL PT 11.2 (10.1-12.7) SECONDS INR 1.0 (0.9-1.3) APTT 26 L (26.4-36.2) SECONDS Sodium 137 (137-145) mmol/L Potassium 2.9 L (3.4-5.1) mmol/L Chloride 103 (98-107) mmol/L Carbon Dioxide 27 (22-32) mmol/L BUN 20 (9-20) mg/dL Creatinine 0.51 L (0.66-1.25) mg/dL Estimated GFR > 60.0 (>60) mL/min BUN/Creatinine Ratio 39.2 H (6-22) Glucose 269 H (80-110) mg/dL Calcium 9.0 (8.4-10.2) mg/dL Magnesium (1.6-2.3) mg/dL Total Bilirubin 1.3 (0.2-1.3) mg/dL AST 193 H (17-59) IU/L ALT 266 H (<50) IU/L Alkaline Phosphatase 127 H (38-126) U/L Total Creatine Kinase (55-170) U/L CK-MB (CK-2) CK-MB (CK-2) Rel Index Troponin I (0.01-0.034) ng/mL NT-Pro-B Natriuret Pep (<125) pg/mL Total Protein 6.8 (6.3-8.2) g/dL Albumin 3.4 L (3.5-5.0) g/dL Globulin 3.4 (1.7-4.1) g/dL Albumin/Globulin Ratio 1.0 (1.0-2.8) Lipase 55 (23-300) U/L TSH (0.47-4.68) uIU/mL Urine RBC (0-5/HPF) Urine WBC (0-5/HPF) Amorphous Sediment Urine Bacteria (None) Ur Culture Indicated? SARS-CoV-2 (PCR) (Negative) 01/10/21 01/10/21 01/10/21 Range/Units 13:30 13:30 13:30 WBC (4.5-11.0) X10^3/uL RBC (4.5-5.9) X10^6/uL Hgb (13.5-17.5) g/dL Hct (41-53) % MCV (80-100) fL MCH (26-34) PG MCHC (30-36) % RDW (11.6-14.8) % Plt Count (150-400) X10^3/uL Neut % (Auto) (50-75) % Lymph % (Auto) (25-40) % [place] % (Auto) (3-14) % Eos % (Auto) (2-4) % Baso % (Auto) (0-2) % Neut # (Auto) (9385-9957) /uL Lymph # (Auto) (9524-3751) /uL [place] # (Auto) (0-900) /uL Eos # (Auto) (0-450) /uL Baso # (Auto) (0-100) /uL PT (10.1-12.7) SECONDS INR (0.9-1.3) APTT (26.4-36.2) SECONDS Sodium (137-145) mmol/L Potassium (3.4-5.1) mmol/L Chloride (98-107) mmol/L Carbon Dioxide (22-32) mmol/L BUN (9-20) mg/dL Creatinine (0.66-1.25) mg/dL Estimated GFR (>60) mL/min BUN/Creatinine Ratio (6-22) Glucose (80-110) mg/dL Calcium (8.4-10.2) mg/dL Magnesium 1.2 L (1.6-2.3) mg/dL Total Bilirubin (0.2-1.3) mg/dL AST (17-59) IU/L ALT (<50) IU/L Alkaline Phosphatase (38-126) U/L Total Creatine Kinase 36 L (55-170) U/L CK-MB (CK-2) TNP CK-MB (CK-2) Rel Index TNP Troponin I < 0.012 (0.01-0.034) ng/mL NT-Pro-B Natriuret Pep 659 H (<125) pg/mL Total Protein (6.3-8.2) g/dL Albumin (3.5-5.0) g/dL Globulin (1.7-4.1) g/dL Albumin/Globulin Ratio (1.0-2.8) Lipase (23-300) U/L TSH 1.17 (0.47-4.68) uIU/mL Urine RBC (0-5/HPF) Urine WBC (0-5/HPF) Amorphous Sediment Urine Bacteria (None) Ur Culture Indicated? SARS-CoV-2 (PCR) (Negative) 01/10/21 01/10/21 01/10/21 Range/Units 13:42 14:44 18:50 WBC (4.5-11.0) X10^3/uL RBC (4.5-5.9) X10^6/uL Hgb (13.5-17.5) g/dL Hct (41-53) % MCV (80-100) fL MCH (26-34) PG MCHC (30-36) % RDW (11.6-14.8) % Plt Count (150-400) X10^3/uL Neut % (Auto) (50-75) % Lymph % (Auto) (25-40) % [place] % (Auto) (3-14) % Eos % (Auto) (2-4) % Baso % (Auto) (0-2) % Neut # (Auto) (2967-1546) /uL Lymph # (Auto) (6307-1133) /uL [place] # (Auto) (0-900) /uL Eos # (Auto) (0-450) /uL Baso # (Auto) (0-100) /uL PT (10.1-12.7) SECONDS INR (0.9-1.3) APTT (26.4-36.2) SECONDS Sodium (137-145) mmol/L Potassium (3.4-5.1) mmol/L Chloride (98-107) mmol/L Carbon Dioxide (22-32) mmol/L BUN (9-20) mg/dL Creatinine (0.66-1.25) mg/dL Estimated GFR (>60) mL/min BUN/Creatinine Ratio (6-22) Glucose (80-110) mg/dL Calcium (8.4-10.2) mg/dL Magnesium (1.6-2.3) mg/dL Total Bilirubin (0.2-1.3) mg/dL AST (17-59) IU/L ALT (<50) IU/L Alkaline Phosphatase (38-126) U/L Total Creatine Kinase (55-170) U/L CK-MB (CK-2) CK-MB (CK-2) Rel Index Troponin I (0.01-0.034) ng/mL NT-Pro-B Natriuret Pep (<125) pg/mL Total Protein (6.3-8.2) g/dL Albumin (3.5-5.0) g/dL Globulin (1.7-4.1) g/dL Albumin/Globulin Ratio (1.0-2.8) Lipase (23-300) U/L TSH (0.47-4.68) uIU/mL Urine RBC None seen (0-5/HPF) Urine WBC None seen (0-5/HPF) Amorphous Sediment 3+ Urine Bacteria None seen (None) Ur Culture Indicated? Cult not indicated SARS-CoV-2 (PCR) Negative Negative (Negative) 01/10/21 01/10/21 Range/Units 20:15 20:15 WBC (4.5-11.0) X10^3/uL RBC (4.5-5.9) X10^6/uL Hgb (13.5-17.5) g/dL Hct (41-53) % MCV (80-100) fL MCH (26-34) PG MCHC (30-36) % RDW (11.6-14.8) % Plt Count (150-400) X10^3/uL Neut % (Auto) (50-75) % Lymph % (Auto) (25-40) % [place] % (Auto) (3-14) % Eos % (Auto) (2-4) % Baso % (Auto) (0-2) % Neut # (Auto) (2080-6322) /uL Lymph # (Auto) (8892-7379) /uL [place] # (Auto) (0-900) /uL Eos # (Auto) (0-450) /uL Baso # (Auto) (0-100) /uL PT (10.1-12.7) SECONDS INR (0.9-1.3) APTT (26.4-36.2) SECONDS Sodium 137 (137-145) mmol/L Potassium 3.6 (3.4-5.1) mmol/L Chloride 109 H (98-107) mmol/L Carbon Dioxide 26 (22-32) mmol/L BUN 16 (9-20) mg/dL Creatinine 0.40 L (0.66-1.25) mg/dL Estimated GFR > 60.0 (>60) mL/min BUN/Creatinine Ratio 40.0 H (6-22) Glucose 199 H (80-110) mg/dL Calcium 7.9 L (8.4-10.2) mg/dL Magnesium 1.3 L (1.6-2.3) mg/dL Total Bilirubin (0.2-1.3) mg/dL AST (17-59) IU/L ALT (<50) IU/L Alkaline Phosphatase (38-126) U/L Total Creatine Kinase (55-170) U/L CK-MB (CK-2) CK-MB (CK-2) Rel Index Troponin I (0.01-0.034) ng/mL NT-Pro-B Natriuret Pep (<125) pg/mL Total Protein (6.3-8.2) g/dL Albumin (3.5-5.0) g/dL Globulin (1.7-4.1) g/dL Albumin/Globulin Ratio (1.0-2.8) Lipase (23-300) U/L TSH (0.47-4.68) uIU/mL Urine RBC (0-5/HPF) Urine WBC (0-5/HPF) Amorphous Sediment Urine Bacteria (None) Ur Culture Indicated? SARS-CoV-2 (PCR) (Negative) Point of care testing: Urine Dip Bedside Urine Glucose 250 mg/dl Bedside Urine Bilirubin - Negative Bedside Urine Ketone - Negative Urine Specific [place] 1.025 Bedside Urine Occult Blood - Negative Bedside Urine pH 7 Bedside Urine Protein - Negative Bedside Urine Urobilinogen - Negative Bedside Urine Nitrite - Negative Bedside Urine Leukocytes - Negative Esterase MDM Narrative Medical decision making narrative: Received sign-out from Dr. Carrasco at seen evaluated patient myself. He is overall doing much better. Potassium and magnesium have both been replaced. [facility] has refused patient f or transfer stating that is unnecessary to transfer him they will not rate providing any further care. Dr. Gonzalez recontacted by myself quite adamant that patient not be at this facility according to Dr. Vasques's note states that he needs ablation for SVT. Patient is scheduled for an outpatient ablation on January 20. He has recurrent episodes of SVT. KaiDr. Melo contacted updated on concerns of admitting provider and previous notes need for ablation an SVT to be addressed. At this time patient will not be receiving an ablation in the hospital if he were to be transferred does not need cardiac evaluation for his SVT at this time. Outpatient ablation has been scheduled and is in the next 10 days no need to move that appointment up. At this time patient is now requesting that he go home he no longer wants to stay in the hospital electrolytes are back to normal. He understands when he should return to the ER he understands that he needs an ablation that it will be done as an outpatient. Patient has chronic ongoing colitis with ongoing nausea vomiting and diarrhea along with pancreatic cancer. His acute issues today are electrolyte abnormalities and an episode of SVT while in the emergency department. Electrolyte abnormalities have been replaced and are back to baseline no longer in SVT, at this time he does not meet any admission criteria and does not need emergent ablation. I will give patient prescriptions for electrolyte replacement. Critical Care Time <Ashley Carrasco, - Last Filed: 01/11/21 20:18> Critical Care Time Critical Care Time: Yes Total Critical Care Time: 85 Attestation: The high probability of a clinically significant, sudden or life threatening deterioration of the [cardiac] system(s) required my full and direct attention, intervention and personal management. The aggregate critical care time was [85] minutes. This time is in addition to time spent performing reported procedures but includes the following: [x] Data Review and interpretation [x] Patient assessment and monitoring of vital signs [x] Documentation [x] Medication orders and management Discharge Plan Departure Patient Disposition: Home Clinical Impression: SVT (supraventricular tachycardia), Hypokalemia, Colitis, Generalized anxiety disorder Instructions: Paroxysmal Supraventricular Tachycardia Activity Restrictions/Additional Instructions: *You have been diagnosed with SVT *What to do: You still need an ablation continue this as scheduled on January 20. You had some mild electrolyte abnormalities if you are not already taking potassium and magnesium have provided prescriptions for you *Continue to take medications as directed--> SENT TO [facility] Potassium 10 mEq use once daily Magnesium oxide 400 mg once a day *Follow up with your primary care provider in 2-3 days *Return to ER if you should have chest pain palpitations passing out or any new, worsening or concerning symptoms Prescriptions: New potassium chloride 10 mEq tablet extended release 10 meq PO DAILY Qty: 20 RF: 0 magnesium oxide 400 mg (241.3 mg magnesium) tablet 400 mg PO DAILY Qty: 20 RF: 0 No Action ondansetron 4 mg tablet,disintegrating 4 mg PO Q6H PRN (Reason: Nausea) Qty: 30 RF: 3 simvastatin 40 mg tablet 40 mg PO QPM Qty: 90 RF: 1 omeprazole 40 mg capsule,delayed release(DR/EC) 40 mg PO BID Qty: 180 RF: 1 metformin 500 mg tablet 500 mg PO BID Qty: 180 RF: 1 budesonide 3 mg capsule,delayed,extend.release 6 mg PO QAM Qty: 180 RF: 3 cyclobenzaprine 5 mg tablet 5 mg PO TID PRN (Reason: Spasms) RF: 0 metoprolol succinate 100 mg tablet extended release 24 hr 100 mg PO BID RF: 0 lisinopril 40 mg tablet 40 mg PO BID Qty: 180 RF: 3 hydrochlorothiazide 25 mg tablet 25 mg PO DAILY Qty: 90 RF: 3 aspirin 81 mg Tablet,Chewable 81 mg PO QAM RF: 0 oxycodone 5 mg tablet 10 mg PO Q4H PRN (Reason: pain) RF: 0 megestrol 20 mg tablet 20 mg PO BID RF: 0 tamsulosin 0.4 mg capsule 0.4 mg PO QPM RF: 0 promethazine 25 mg suppository 25 mg MI Q4-6H PRN (Reason: nausea and vomiting) Qty: 12 RF: 0 Referrals: Khang Vasques MD [Primary Care Provider] -
[2021-01-10] MEDS: SODIUM CHLORIDE 0.9% 1,000 ML 1000 ML IV (14:45)
[2021-01-10] MEDS: ADENOSINE 6 MG/2 ML VIAL IV (14:55)
[2021-01-10] MEDS: ADENOSINE 6 MG/2 ML VIAL 12 MG IV (15:00)
--- NOTE | 2021-01-10 15:02 | DI.CT.S_ITS ---
PROCEDURE: CT ABDOMEN PELVIS W CON INDICATIONS: worsening abd pain, pancreatic cancer TECHNIQUE: After the administration of intravenous contrast, 5 mm thick sections acquired from the diaphragm to the symphysis. 5 mm coronal and sagittal reformats were acquired. For radiation dose reduction, the following was used: automated exposure control, adjustment of mA and/or kV according to patient size. COMPARISON: [facility], CT, CT ABDOMEN PELVIS W CON, 12/18/2020, 15:29. [facility], CT, CT ANGIO CHEST PE PROTOCOL, 01/10/2021, 15:12. [facility], CT, CT ABDOMEN PELVIS W CON, 12/20/2020, 21:58. FINDINGS: Image quality: Excellent. ABDOMEN: Lung bases: Lung bases are clear. Heart size is normal. Solid organs: Cluster of calcifications within the hepatic dome are unchanged. Gallbladder is unremarkable Biliary system is non dilated. Pancreas enhances normally. There are multiple subcentimeter round hypodensities noted throughout the pancreas, not significantly changed from comparison. No discrete mass. Spleen is normal in size and enhancement. No adrenal nodules. Kidneys demonstrate normal size and enhancement, without hydronephrosis. Peritoneum and bowel: Stomach and small bowel are unremarkable without evidence of obstruction or wall thickening. There is diffuse wall thickening of the left colon extending from the splenic flexure through the rectum. Scattered left sided diverticula without evidence of surrounding inflammation. No ascites or pneumoperitoneum. Nodes and vessels: No retroperitoneal or mesenteric adenopathy by size criteria. Aorta and inferior vena cava are normal in size. There is diffuse calcified and noncalcified atherosclerosis without evidence of high-grade stenosis, occlusion, or dissection. Miscellaneous: Fat containing periumbilical hernia. PELVIS: Genitourinary: Bladder wall thickness is normal. Prostatomegaly with fiducial markers is unchanged. Miscellaneous: Fat containing left inguinal hernias. No adenopathy by size criteria. Lipoma noted within the right anterior thigh incompletely evaluated. Bones: Multilevel degenerative changes of the spine. No acute osseous abnormality. Stable lucencies within the right posterior aspect of the iliac bone. No vertebral body compression fractures. IMPRESSION: Diffuse wall thickening of the colon extending from the splenic flexure through the rectum concerning for colitis. This is similar in appearance to exam dated 12/18/2020 Multiple subcentimeter hypodensities are noted within the pancreas which are nonspecific. Consider dedicated pancreatic MRI for further evaluation. No discrete mass identified within limits of this exam. Stable lucencies within the right iliac. Additional chronic findings as above. Dictated by: Donal Shane D.O. on 01/10/2021 at 15:02 Approved by: Donal Shane D.O. on 01/10/2021 at 15:14
--- NOTE | 2021-01-10 15:02 | DI.CT.S_ITS ---
PROCEDURE: CT ANGIO CHEST PE PROTOCOL INDICATIONS: tachycardia, pancreatic cancer TECHNIQUE: After the administration of intravenous contrast, 2 mm thick sections acquired from the pulmonary apices to the posterior costophrenic angles. 3-dimensional maximum intensity projection (MIP) coronal and sagittal reformats were then acquired through the thorax. For radiation dose reduction, the following was used: automated exposure control, adjustment of mA and/or kV according to patient size. COMPARISON: [facility], CT, CT ANGIO CHEST PE PROTOCOL, 12/20/2020, 21:58. FINDINGS: Image quality: Excellent. Pulmonary arteries: The main pulmonary artery is mildly enlarged measuring 3.3 centimeters in diameter. No intraluminal filling defects to suggest central pulmonary embolism. Lungs and pleura: Lungs are clear. No pleural effusions or pneumothorax. Central and peripheral airways are patent. Mild predominant basilar and dependent atelectasis. Minimal predominately paraseptal apical emphysematous changes. Mediastinum: Heart size is normal, without pericardial effusion. There is moderate multi-vessel coronary vascular calcifications. Contrast is noted extending to the apex of the ventricle concerning for infarction/aneurysm of the apex. There is thickening of the left ventricle wall. No mediastinal or hilar adenopathy by size criteria. Multiple prominent mediastinal and hilar lymph nodes are again identified.. Thoracic aorta is normal in caliber and enhancement. Esophagus is normal in caliber, without hiatal hernia. Bones and chest wall: No suspicious bony lesions. Ribs and thoracic spine appear intact throughout. Thyroid gland is unremarkable. No axillary or supraclavicular adenopathy. Abdomen: Visualized upper abdominal solid organs appear normal in the early arterial phase of enhancement. Stable hepatic dome calcification. IMPRESSION: No evidence of pulmonary embolus or right heart strain. Findings suggestive of remote a ventricular infarction with questionable aneurysm formation. This is in the setting of left ventricular hypertrophy. Moderate multi-vessel coronary vascular calcifications. Enlargement of the main pulmonary artery measuring 3.3 centimeters. Recommend correlation for pulmonary hypertension. Very mild emphysematous changes. Dictated by: Donal Shane D.O. on 01/10/2021 at 14:52 Approved by: Donal Shane D.O. on 01/10/2021 at 15:01
[2021-01-10] MEDS: HYDROMORPHONE 1 MG INJ (15:06)
[2021-01-10] MEDS: diazePAM 5 MG TABLET 10 MG PO (15:11)
[2021-01-10 15:24] LABS: Creatine Kinase 36 U/L (55-170)
[2021-01-10 15:24] LABS: Bacteria Urine None Seen; RBC Urine None Seen (0-5/HPF); WBC Urine None Seen (0-5/HPF)
[2021-01-10 15:25] LABS: Magnesium 1.2 mg/dL (1.6-2.3)
[2021-01-10 15:35] LABS: Amorphous Sediment Urine 3+; Culture Indicated Urine Cult Not Indicated
[2021-01-10 15:36] LABS: NT-proBNP (BNP-Adult 18+) 659 pg/mL (<125); Troponin I < 0.012 ng/mL (0.01-0.034)
[2021-01-10 15:37] LABS: COVID19 -Nasal RAPID Negative (Negative)
[2021-01-10] MEDS: POTASSIUM CHLORIDE 40 MEQ in SODIUM CHLORIDE 0.9% 500 ML 130 ML IV (15:52)
[2021-01-10 16:21] LABS: Thyroid Stimulating Hormone 1.17 uIU/mL (0.47-4.68)
[2021-01-10] MEDS: SODIUM CHLORIDE 0.9% 1,000 ML 150 ML IV (19:25)
[2021-01-10] MEDS: MAGNESIUM SULFATE 2 GM/50 ML PIGGYBACK IV (19:43)
[2021-01-10 19:47] LABS: COVID19 - ADMIT (NP swab/PCR) Negative (Negative)
[2021-01-10 20:43] LABS: Blood Urea Nitrogen 16 mg/dL (9-20); Calcium 7.9 mg/dL (8.4-10.2); Carbon Dioxide 26 mmol/L (22-32); Chloride 109 mmol/L (98-107); Estimated Glomerular Filt Rate > 60.0 mL/min (>60); Glucose 199 mg/dL (80-110); HEMOLYSIS < 15 (0-50); Potassium 3.6 mmol/L (3.4-5.1); Sodium 137 mmol/L (137-145)
[2021-01-10 22:00] LABS: Magnesium 1.3 mg/dL (1.6-2.3)
== END 2021-01-10 22:58 | disposition home or self-care (01) ==
PROVIDERS: Emergency Medicine; Emergency Provider Emergency Medicine; PCP Internal Medicine
DX: I47.1 Supraventricular tachycardia (principal); E87.6 Hypokalemia; K52.9 Noninfective gastroenteritis and colitis, unspecified; F41.9 Anxiety disorder, unspecified; R11.2 Nausea with vomiting, unspecified; R07.9 Chest pain, unspecified; Z20.822 Contact with and (suspected) exposure to COVID-19
CPT/HCPCS: 71275; 74177; 80048; 80053; 81003; 81015; 82550; 83690; 83735; 83880; 84443; 84484; 85025; 85610; 85730; 87635; 93005; 96361; 96365; 96366; 96375; 96376; 99284; 99291; 99292; C9803; J0153; J1170; J2405; J3475; J3480; Q9967

== ENCOUNTER 2021-01-12 06:52 | Emergency (ER) | payer OTHER, SELFPAY ==
[2020-11-12 14:07] VITALS: BMI 20.3
[2021-01-12 06:58] VITALS: BP 200/107; PULSE 62; RESP 15; TEMP 36.8; O2SAT 98; BMI 22.5
[2021-01-12 07:15] LABS: Add Manual Diff / Slide Review NO; Basophils Absolute Auto 0 /uL (0-100); Basophils Percent Auto 0.6 % (0-2); Eosinophils Absolute Auto 0 /uL (0-450); Hematocrit 37.7 % (41-53); Lymphocytes Absolute Auto 900 /uL (1100-4500); Mean Corpuscular HGB Conc 34.5 % (30-36); Mean Corpuscular Hemoglobin 32.8 PG (26-34); Mean Corpuscular Volume 94.9 fL (80-100); Monocytes Absolute Auto 500 /uL (0-900); Monocytes Percent Auto 11.3 % (3-14); Neutrophils Absolute Auto 2800 /uL (1500-7000); Neutrophils Percent Auto 66.1 % (50-75); Platelet Count 71 X10^3/uL (150-400); Red Blood Cell Count 3.97 X10^6/uL (4.5-5.9); Red Cell Distribution Width 13.1 % (11.6-14.8); White Blood Cell Count 4.3 X10^3/uL (4.5-11.0)
[2021-01-12 07:20] LABS: Alanine Aminotransferase 290 IU/L (<50); Albumin 3.4 g/dL (3.5-5.0); Alkaline Phosphatase 116 U/L (38-126); Aspartate Aminotransferase 250 IU/L (17-59); BUN Creatinine Ratio 34.5 (6-22); Bilirubin Total 1.1 mg/dL (0.2-1.3); Blood Urea Nitrogen 20 mg/dL (9-20); Calcium 8.9 mg/dL (8.4-10.2); Carbon Dioxide 27 mmol/L (22-32); Chloride 106 mmol/L (98-107); Estimated Glomerular Filt Rate > 60.0 mL/min (>60); Globulin 3.4 g/dL (1.7-4.1); Glucose 204 mg/dL (80-110); HEMOLYSIS 45 (0-50); Lipase 158 U/L (23-300); Magnesium 1.5 mg/dL (1.6-2.3); Phosphorous 3.1 mg/dL (2.3-3.7); Potassium 3.4 mmol/L (3.4-5.1); Sodium 138 mmol/L (137-145); Total Protein 6.8 g/dL (6.3-8.2)
--- NOTE | 2021-01-12 07:36 | ED_ITS ---
HPI - General Adult General Chief complaint: Abdominal Pain Stated complaint: N/V Abdominal pain Time Seen by Provider: 01/12/21 06:55 Source: patient and EMS Mode of arrival: EMS Limitations: no limitations History of Present Illness HPI narrative: Patient is a 65-year-old male with a history of prostate cancer. Currently undergoing radiation treatment. His last treatment was last Tuesday is brought in by EMS today for evaluation of nausea vomiting abdominal pain. Had episode of a fast heart rate this morning. He is known to have what appears to be SVT. Is scheduled to see Cardiology later this month for potential ablation. Is also having problems urinating. According to prior notes this not necessari ly a new thing. He is complaining of abdominal discomfort. Related Data Home Medications Medication Instructions Recorded Confirmed cyclobenzaprine 5 mg tablet 5 mg PO TID PRN tab 03/20/19 01/02/21 tamsulosin 0.4 mg PO QPM 08/15/19 01/02/21 aspirin 81 mg PO QAM 11/06/19 01/02/21 oxycodone 10 mg PO Q4H PRN 12/20/20 01/02/21 megestrol 20 mg PO BID 12/21/20 01/02/21 metoprolol succinate 100 mg 100 mg PO BID tab 01/02/21 01/02/21 tablet,extended release 24 hr Previous Rx's Medication Instructions Recorded ondansetron 4 mg disintegrating 4 mg PO Q6H PRN #30 tab 06/19/19 tablet simvastatin 40 mg tablet 40 mg PO QPM #90 tab 08/12/20 omeprazole 40 mg capsule,delayed 40 mg PO BID #180 cap 09/04/20 release lisinopril 40 mg tablet 40 mg PO BID #180 tab 11/04/20 promethazine 25 mg TX Q4-6H PRN #12 ea 11/18/20 metformin 500 mg tablet 500 mg PO BID #180 tab 11/24/20 budesonide 3 mg 6 mg PO QAM #180 each 12/05/20 capsule,delayed,extended release hydrochlorothiazide 25 mg tablet 25 mg PO DAILY #90 tab 12/05/20 magnesium oxide 400 mg PO DAILY #20 tab 01/10/21 potassium chloride 10 meq PO DAILY #20 tab 01/10/21 Allergies Allergy/AdvReac Type Severity Reaction Status Date / Time No Known Drug Allergies Allergy Verified 01/10/21 13:33 Review of Systems Constitutional Constitutional: Reports fatigue, Denies fever(s) and Denies headache(s) Eyes Eyes: Denies change in vision ENT Ears, Nose, Mouth, and Throat: Denies headache(s) and Denies sore throat Cardiovascular Cardiovascular: Denies chest pain, Reports rapid heart rate and Denies dyspnea Respiratory Respiratory: Denies cough and Denies dyspnea Gastrointestinal Gastrointestinal: Reports abdominal pain, Denies change in bowel habits, Reports nausea and Reports vomiting Genitourinary Genitourinary: Reports dysuria, Reports urinary hesitancy and Reports urinary urgency Genitourinary: Reports dysuria, Reports urinary hesitancy and Reports urinary urgency Musculoskeletal Musculoskeletal: Denies myalgias Integumentary/Breasts Skin/Breast: Denies rash Neurologic Neurologic: Denies behavioral changes and Denies headache(s) Psychiatric Psychiatric: Denies behavioral changes Endocrine Endocrine: Reports fatigue Hematologic/Lymphatic On Anticoagulants: No Allergic/Immunologic Allergic/Immunologic: Denies urticaria Patient History Medical History Cannabis abuse Chronic hepatitis Coronary artery disease involving [place] coronary artery of [place] heart without angina pectoris (~2006) Diabetes type 2, controlled Diabetes type 2, uncontrolled Diabetic peripheral neuropathy Diverticulosis of large intestine (03/31/12) Essential hypertension Generalized anxiety disorder Hepatitis C Kidney stones Mixed hyperlipidemia Paroxysmal A-fib Prostate cancer (~05/2019) Surgical History H/O heart artery stent (~2006) History of angioplasty (~12/2006) Hx of inguinal hernia surgery (~09/20/08) Hx of inguinal hernia surgery (~03/07/14) Status post laminectomy Social History marital status: unmarried,single number of children: 3 household members: none lives independently: Yes caregiver/support person: No housing: house pets and animals: No education level: high school occupational status: other 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/pentecostalism: None leisure activities: music, fishing and other Smoking Status: Never smoker Tobacco: How many years used: 56 Smokeless tobacco user: other quit status: has quit before second hand exposure: Yes (On farm[place]/Boat.) alcohol intake: former substance use type: does not use and marijuana eating out: rarely or never Type(s) of exercise: normal ROM and activity and additional Smoking Status: Never smoker alcohol intake frequency: a few times a week Alcohol type: beer Substance Use Type: marijuana Exam Initial Vital Signs Initial Vital Signs: Vital Signs Temperature 98.2 F 01/12/21 06:58 Pulse Rate 62 01/12/21 06:58 Respiratory Rate 15 01/12/21 06:58 Blood Pressure 200/107 H 01/12/21 06:58 Pulse Oximetry 98 01/12/21 06:58 Const General: cooperative, comfortable and frail appearing Limitations: mental status not altered HENMT Head: normal to inspection and normocephalic Eyes General: appearance normal, both eyes and all related structures Chest Chest: No tenderness Resp Effort & Inspection: normal respiratory effort Auscultation: clear to auscultation bilaterally Cardio Rate: regular rate Rhythm: regular rhythm GI Inspection: non-distended Palpation: soft and tender (Lower abdomen) Skin Lesions: no lesions Rashes: no rashes Neuro General: patient alert, patient awake and patient oriented x3 Cognition: normal cognition Speech: speech normal Extrem General: normal to inspection and capillary refill normal Psych Appearance: grossly normal and well kempt Scores GCS [place] coma scale eye opening: Spontaneous [place] coma scale verbal response: Orientated [place] coma scale motor response: [place] commands [place] coma scale total score: 15 Course Orders Ordered: Discontinued Medications Hydromorphone HCl (Hydromorphone 1 Mg Inj) 1 mg IV NOW ONE Stop: 01/12/21 07:42 Last Admin: 01/12/21 08:05 Dose: 1 mg Documented by: RAFAEL Hydromorphone HCl (Hydromorphone 1 Mg Inj) 1 mg IV NOW ONE Stop: 01/12/21 10:37 Last Admin: 01/12/21 10:50 Dose: 1 mg Documented by: RAFAEL Sodium Chloride (Normal Saline 0.9%) 1,000 mls @ 1,000 mls/hr IV BOLUS ONE Stop: 01/12/21 08:03 Last Infusion: 01/12/21 09:30 Dose: 0 mls/hr Documented by: Admin: 01/12/21 08:05 Dose: 1,000 mls/hr Documented by: BTONER Ondansetron HCl (Ondansetron 4 Mg/2 Ml Inj) 4 mg IV NOW ONE Stop: 01/12/21 07:42 Last Admin: 01/12/21 08:05 Dose: 4 mg Documented by: RAFAEL Vital Signs Vital signs: Vital Signs - 8 hr 01/12/21 10:14 01/12/21 10:15 01/12/21 10:30 Pulse Rate 73 70 69 Respiratory Rate 8 L 8 L 7 L Blood Pressure 195/109 H 191/119 H Pulse Oximetry 93 92 93 01/12/21 11:04 Pulse Rate 86 Respiratory Rate 14 Blood Pressure 190/107 H Pulse Oximetry 97 Medical Decision Making Medical Records Medical records reviewed: Yes I reviewed the patient's medical records. Lab Data Lab results reviewed: Yes I reviewed the patient's lab results. Result diagrams: 01/12/21 07:00 01/12/21 07:00 Labs: Lab Results 01/12/21 01/12/21 01/12/21 Range/Units 07:00 07:00 07:50 WBC 4.3 L (4.5-11.0) X10^3/uL RBC 3.97 L (4.5-5.9) X10^6/uL Hgb 13.0 L (13.5-17.5) g/dL Hct 37.7 L (41-53) % MCV 94.9 (80-100) fL MCH 32.8 (26-34) PG MCHC 34.5 (30-36) % RDW 13.1 (11.6-14.8) % Plt Count 71 L (150-400) X10^3/uL Neut % (Auto) 66.1 (50-75) % Lymph % (Auto) 21.0 L (25-40) % [place] % (Auto) 11.3 (3-14) % Eos % (Auto) 1.0 L (2-4) % Baso % (Auto) 0.6 (0-2) % Neut # (Auto) 2800 (7510-4599) /uL Lymph # (Auto) 900 L (1371-3891) /uL [place] # (Auto) 500 (0-900) /uL Eos # (Auto) 0 (0-450) /uL Baso # (Auto) 0 (0-100) /uL Sodium 138 (137-145) mmol/L Potassium 3.4 (3.4-5.1) mmol/L Chloride 106 (98-107) mmol/L Carbon Dioxide 27 (22-32) mmol/L BUN 20 (9-20) mg/dL Creatinine 0.58 L (0.66-1.25) mg/dL Estimated GFR > 60.0 (>60) mL/min BUN/Creatinine Ratio 34.5 H (6-22) Glucose 204 H (80-110) mg/dL Calcium 8.9 (8.4-10.2) mg/dL Phosphorus 3.1 (2.3-3.7) mg/dL Magnesium 1.5 L (1.6-2.3) mg/dL Total Bilirubin 1.1 (0.2-1.3) mg/dL AST 250 H (17-59) IU/L ALT 290 H (<50) IU/L Alkaline Phosphatase 116 (38-126) U/L Total Protein 6.8 (6.3-8.2) g/dL Albumin 3.4 L (3.5-5.0) g/dL Globulin 3.4 (1.7-4.1) g/dL Albumin/Globulin Ratio 1.0 (1.0-2.8) Lipase 158 D (23-300) U/L Urine Color [place] Urine Appearance Clear Urine pH 7.0 (4.5-8.0) Ur Specific [place] 1.025 (1.000-1.035) Urine Protein 1+ H (Negative) Urine Glucose (UA) 1+ H (Negative) g/dL Urine Ketones Negative (NEGATIVE) Urine Occult Blood Negative (Negative) Urine Nitrate Positive (Negative) Urine Bilirubin Negative (NEGATIVE) Urine Urobilinogen 4.0 H (0.2) E.U./dL Ur Leukocyte Esterase Trace H (NEGATIVE) Urine RBC 0-1/hpf (0-5/HPF) Urine WBC 0-1/hpf (0-5/HPF) Urine Bacteria Few (2-10) H (None) Ur Culture Indicated? Specimen cultured ECG Data Attestation: I personally reviewed and interpreted this ECG as follows: Prior ECG tracings: not available for review Interpretation: Sinus rhythm Ventricular rate of 62 Normal axis Normal QRS Normal QTC No ST T wave changes MDM Narrative Medical decision making narrative: His electrolytes are unremarkable. He did tolerate oral intake. EKG is unremarkable. Vital signs are unremarkable. A postvoid residual did show greater than 250 cc of urine in his bladder. He is having quite a bit of discomfort with urinating and feels like he is not emptying his bladder. The urinary catheter was placed and had a return of a pproximately 500 cc. I suspect this is related to his prostate cancer/radiation. We will leave the Gill in and have him follow-up with his urologist. Informed that his electrolytes are unremarkable. He did ask several times for pain medication. His urine was cultured. Given his history I feel that waiting for a urine culture to treat with any antibiotics would be necessary in order to avoid unnecessary antibiotics. We did discuss return precautions and follow-up instructions. Both he and his expressed understanding and agreement. Discharge Plan Departure Patient Disposition: Home Clinical Impression: Abdominal pain, Prostate cancer, Acute urinary retention, Nausea and vomiting Instructions: How to Care for Your Gill Catheter -- Male Activity Restrictions/Additional Instructions: Continue to take all of your medications as directed. Be sure to keep all of your scheduled medical appointments. Return to the emergency department for any new or worsening symptoms Prescriptions: No Action ondansetron 4 mg tablet,disintegrating 4 mg PO Q6H PRN (Reason: Nausea) Qty: 30 RF: 3 simvastatin 40 mg tablet 40 mg PO QPM Qty: 90 RF: 1 omeprazole 40 mg capsule,delayed release(DR/EC) 40 mg PO BID Qty: 180 RF: 1 metformin 500 mg tablet 500 mg PO BID Qty: 180 RF: 1 budesonide 3 mg capsule,delayed,extend.release 6 mg PO QAM Qty: 180 RF: 3 cyclobenzaprine 5 mg tablet 5 mg PO TID PRN (Reason: Spasms) RF: 0 metoprolol succinate 100 mg tablet extended release 24 hr 100 mg PO BID RF: 0 lisinopril 40 mg tablet 40 mg PO BID Qty: 180 RF: 3 hydrochlorothiazide 25 mg tablet 25 mg PO DAILY Qty: 90 RF: 3 aspirin 81 mg Tablet,Chewable 81 mg PO QAM RF: 0 oxycodone 5 mg tablet 10 mg PO Q4H PRN (Reason: pain) RF: 0 megestrol 20 mg tablet 20 mg PO BID RF: 0 tamsulosin 0.4 mg capsule 0.4 mg PO QPM RF: 0 promethazine 25 mg suppository 25 mg TX Q4-6H PRN (Reason: nausea and vomiting) Qty: 12 RF: 0 potassium chloride 10 mEq tablet extended release 10 meq PO DAILY Qty: 20 RF: 0 magnesium oxide 400 mg (241.3 mg magnesium) tablet 400 mg PO DAILY Qty: 20 RF: 0 Referrals: Khang Vasques MD [Primary Care Provider] -
[2021-01-12 08:03] LABS: Appearance Urine UA CLEAR; Bilirubin Urine UA NEGATIVE (NEGATIVE); Color Urine UA ORANGE; Glucose Urine UA 1+ g/dL (Negative); Ketones Urine UA NEGATIVE (NEGATIVE); Leukocyte Esterase Urine UA TRACE (NEGATIVE); Nitrite Urine UA POSITIVE (Negative); Occult Blood Urine UA NEGATIVE (Negative); Protein Urine UA 1+ (Negative); Specific Gravity Urine UA 1.025 (1.000-1.035)
[2021-01-12] MEDS: ONDANSETRON 4 MG/2 ML INJ IV (08:05)
[2021-01-12] MEDS: SODIUM CHLORIDE 0.9% 1,000 ML 1000 ML IV (08:05)
[2021-01-12] MEDS: HYDROMORPHONE 1 MG INJ IV ×2 (08:05→10:50)
--- NOTE | 2021-01-12 08:30 | PC.NURSE ---
pt finished a liter of ns from EMS.
[2021-01-12 08:36] LABS: RBC Urine 0-1/HPF (0-5/HPF); WBC Urine 0-1/HPF (0-5/HPF)
[2021-01-12 08:37] LABS: Bacteria Urine Few (2-10); Culture Indicated Urine Specimen Cultured
[2021-01-12 10:14] VITALS: PULSE 73; RESP 8; O2SAT 93
[2021-01-12 10:15] VITALS: BP 195/109; PULSE 70; RESP 8; O2SAT 92
[2021-01-12 10:30] VITALS: BP 191/119; PULSE 69; RESP 7; O2SAT 93
[2021-01-12 11:04] VITALS: BP 190/107; PULSE 86; RESP 14; O2SAT 97
== END 2021-01-12 11:21 | disposition home or self-care (01) ==
PROVIDERS: Emergency Provider Emergency Medicine; PCP Internal Medicine
DX: R10.9 Unspecified abdominal pain (principal); C61 Malignant neoplasm of prostate; R33.8 Other retention of urine; R11.2 Nausea with vomiting, unspecified
CPT/HCPCS: 36415; 51701; 51798; 80053; 81001; 83690; 83735; 84100; 85025; 87086; 93005; 96361; 96374; 96375; 96376; 99284; J1170; J2405

== ENCOUNTER 2021-02-28 16:05 | Inpatient (IN) | payer OTHER, SELFPAY ==
[2020-11-12 14:07] VITALS: BMI 20.3
[2021-02-28] VITALS (16 sets, daily range): BP systolic 125–192; BP diastolic 88–116; PULSE 62–116; RESP 11–25; TEMP 36.5–37.2; O2SAT 93–98; BMI 20.2
--- NOTE | 2021-02-28 16:16 | DI.RAD.S_ITS ---
PROCEDURE: XR CHEST 1V INDICATIONS: Flu like symptoms TECHNIQUE: One view of the chest was acquired. COMPARISON: [facility], CR, XR CHEST 1V, 12/20/2020, 19:23. FINDINGS: Surgical changes and devices: None. Lungs and pleura: Lungs are clear. No pleural effusions or pneumothorax. Mediastinum: Mediastinal contours appear normal. Heart size is normal. Bones and chest wall: No suspicious bony lesions. Overlying soft tissues appear unremarkable. IMPRESSION: No evidence acute pulmonary process. Dictated by: Esa Frost M.D. on 02/28/2021 at 15:30 Approved by: Esa Frost M.D. on 02/28/2021 at 15:31
--- NOTE | 2021-02-28 16:16 | ED.GENADULT ---
HPI - General Adult General Chief complaint: Fever Stated complaint: Dehydration x2 day, UTI Time Seen by Provider: 02/28/21 16:10 Source: patient and EMS Mode of arrival: EMS History of Present Illness HPI narrative: 65-year-old gentleman with a history of prostate cancer with most recent radiation treatment February 06, hepatitis C with cirrhosis, hypertension, generalized anxiety disorder, type 2 diabetes with peripheral neuropathy, atherosclerotic disease, hypertension who presents with complaints of general malaise, fevers, aching all over, decreased oral intake both solids and liquids over the last couple of days with minimal bowel movements over the last 2 days without a sensation of constipation. He is not complaining of specific abdominal pain. He was seen 2 days ago and diagnosed with a urinary tract infection by his urologist and started on nitrofurantoin. He and his caregiver both feel that this is getting worse with increased smell and increased pain and dysuria. He complains of global weakness and significant nausea. He typically takes 10 mg of oxycodone 4 times a day his last dose was early this morning and he vomited that up. He complains of low-grade headache, no specific cough or dyspnea. He is not complaining of chest pain or palpitations. Related Data Home Medications Medication Instructions Recorded Confirmed tamsulosin 0.4 mg PO QPM 08/15/19 02/13/21 aspirin 81 mg PO QAM 11/06/19 02/13/21 megestrol 20 mg PO BID 12/21/20 02/13/21 metoprolol succinate 100 mg 100 mg PO BID tab 01/02/21 02/13/21 tablet,extended release 24 hr lisinopril 20 mg tablet 20 mg PO BID 02/13/21 02/13/21 Previous Rx's Medication Instructions Recorded ondansetron 4 mg disintegrating 4 mg PO Q6H PRN #30 tab 06/19/19 tablet promethazine 25 mg MI Q4-6H PRN #12 ea 11/18/20 metformin 500 mg tablet 500 mg PO BID #180 tab 11/24/20 budesonide 3 mg 6 mg PO QAM #180 each 12/05/20 capsule,delayed,extended release oxycodone 5 mg tablet 10 mg PO Q4H PRN #360 tab 02/10/21 simvastatin 40 mg tablet 40 mg PO QPM #90 tab 02/11/21 cyclobenzaprine 5 mg tablet 5 mg PO TID PRN #60 tab 02/13/21 furosemide 20 mg tablet 20 mg PO QAM #90 tab 02/13/21 potassium chloride 10 mEq 10 meq PO BID #180 tab 02/13/21 tablet,extended release magnesium oxide 400 mg (241.3 mg 400 mg PO DAILY #30 tab 02/18/21 magnesium) tablet omeprazole 40 mg capsule,delayed 40 mg PO BID #180 cap 02/24/21 release Allergies Allergy/AdvReac Type Severity Reaction Status Date / Time No Known Drug Allergies Allergy Verified 02/13/21 09:54 Review of Systems Review of Systems Narrative: Remainder of complete review of systems is otherwise unremarkable except for that included in the HPI. Patient History Medical History Cannabis abuse Chronic hepatitis Coronary artery disease involving hoopa coronary artery of hoopa heart without angina pectoris (~2006) Diabetes type 2, uncontrolled Diverticulosis of large intestine (03/31/12) Essential hypertension Generalized anxiety disorder Hepatitis C Kidney stones Mixed hyperlipidemia Paroxysmal A-fib Prostate cancer (~05/2019) Surgical History H/O heart artery stent (~2006) History of angioplasty (~12/2006) Hx of inguinal hernia surgery (~09/20/08) Hx of inguinal hernia surgery (~03/07/14) Status post laminectomy Social History marital status: unmarried,single number of children: 3 household members: none lives independently: Yes caregiver/support person: No housing: house pets and animals: No education level: high school occupational status: other 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/yarsanism: None leisure activities: music, fishing and other Smoking Status: Never smoker Tobacco: How many years used: 56 Smokeless tobacco user: other quit status: has quit before second hand exposure: Yes (On farmland/Boat.) alcohol intake: former substance use type: does not use and marijuana eating out: rarely or never Type(s) of exercise: normal ROM and activity and additional Smoking Status: Never smoker alcohol intake frequency: a few times a week Alcohol type: beer Substance Use Type: marijuana Exam Narrative Exam Narrative: General: Cachectic, pale, acutely ill appearing gentleman able speak in full sentences but globally weak HEENT: Dry mucous membranes, normal sclera with reactive pupils, Neck: No JVD, supple Respiratory: Lungs are clear to auscultation, no wheezing no rales no rhonchi. Full and symmetrical air movement Cardiac: Tachycardic with no murmurs no bruits Abdomen: Scaphoid, Soft, nontender, good bowel tones, no flank pain Skin: Pale with good peripheral perfusion and no rashes, he has some minor skin breakdown over his sacrum but no infected sores. Neurologic: Globally weak but otherwise Grossly neurologically intact with no obvious asymmetries or abnormalities Extremities: No trauma, no lower extremity edema Psych: Cooperative, appropriate insight and affect Initial Vital Signs Initial Vital Signs: Vital Signs Temperature 98.9 F 02/28/21 16:10 Pulse Rate 99 H 02/28/21 16:10 Respiratory Rate 24 02/28/21 16:10 Blood Pressure 134/91 H 02/28/21 16:10 Pulse Oximetry 95 02/28/21 16:10 Course Orders Ordered: ED Orders 02/28/21 16:15 Urinalysis and Microscopic Stat Urine Culture Stat EKG-12 Lead Stat 02/28/21 16:16 XR chest 1V Stat 02/28/21 16:20 Complete Blood Count AUTO DIFF Stat Comprehensive Metabolic Panel Stat Lactate (Lactic Acid) Stat NT-proBNP (BNP-Adult 18+) Stat Procalcitonin Stat Troponin & CK Cardiac Panel Stat 02/28/21 16:36 Blood Culture Stat 02/28/21 16:45 COVID19 - ADMIT (PASSENGER SERVICE AGENT swab/PCR) Stat Discontinued Medications Hydromorphone HCl (Hydromorphone 1 Mg Inj) 1 mg IV NOW ONE Stop: 02/28/21 16:37 Last Admin: 02/28/21 16:49 Dose: 1 mg Documented by: [email or web address] Hydromorphone HCl (Hydromorphone 1 Mg Inj) 1 mg IV NOW ONE Stop: 02/28/21 19:06 Last Admin: 02/28/21 19:12 Dose: 1 mg Documented by: Sodium Chloride (Normal Saline 0.9%) 1,758 mls @ 586 mls/hr 30 ml/kg infuse over 3 hr (1758 ml) IV NOW ONE Stop: 02/28/21 19:14 Last Admin: 02/28/21 16:28 Dose: 586 mls/hr Documented by: CHRISAT Piperacillin Sod/Tazobactam (Sod 4.5 gm/ Sodium Chloride) 100 mls @ 200 mls/hr IV NOW ONE Stop: 02/28/21 16:25 Last Infusion: 02/28/21 17:19 Dose: 0 mls/hr Documented by: Admin: 02/28/21 16:38 Dose: 200 mls/hr Documented by: JOSSIE Lisinopril (Lisinopril 20 Mg Tablet) 20 mg PO NOW ONE Stop: 02/28/21 19:19 Metoprolol Succinate (Metoprolol Er 50 Mg Tablet) 100 mg PO NOW ONE Stop: 02/28/21 19:19 Ondansetron HCl (Ondansetron 4 Mg/2 Ml Inj) 4 mg IV NOW ONE Stop: 02/28/21 16:37 Last Admin: 02/28/21 16:49 Dose: 4 mg Documented by: JOSSIE Potassium Chloride (Potassium Chloride 20 Meq Tab) 40 meq PO NOW ONE Stop: 02/28/21 19:19 Vital Signs Vital signs: Vital Signs - 8 hr 02/28/21 16:10 02/28/21 16:13 02/28/21 16:15 Temperature 98.9 F Pulse Rate 99 H 116 H 105 H Respiratory Rate 24 25 H 21 Blood Pressure 134/91 H 192/102 H Pulse Oximetry 95 93 02/28/21 16:30 02/28/21 17:00 02/28/21 17:30 Temperature Pulse Rate 104 H 99 H 103 H Respiratory Rate 11 L 18 18 Blood Pressure 148/103 H 155/105 H 136/102 H Pulse Oximetry 98 96 98 02/28/21 18:00 02/28/21 18:30 02/28/21 18:45 Temperature Pulse Rate 95 H 89 87 Respiratory Rate 16 16 18 Blood Pressure 148/98 H 138/94 H 186/116 H Pulse Oximetry 97 98 98 Medical Decision Making Lab Data Lab results reviewed: Yes I reviewed the patient's lab results. Result diagrams: 02/28/21 16:20 02/28/21 16:20 Labs: Lab Results 02/28/21 02/28/21 02/28/21 Range/Units 16:15 16:20 16:20 WBC 5.6 (4.5-11.0) X10^3/uL RBC 3.59 L (4.5-5.9) X10^6/uL Hgb 12.4 L (13.5-17.5) g/dL Hct 35.3 L (41-53) % MCV 98.5 (80-100) fL MCH 34.6 H (26-34) PG MCHC 35.1 (30-36) % RDW 13.5 (11.6-14.8) % Plt Count 104 L (150-400) X10^3/uL Neut % (Auto) 70.5 (50-75) % Lymph % (Auto) 18.3 L (25-40) % Moody % (Auto) 10.5 (3-14) % Eos % (Auto) 0.1 L (2-4) % Baso % (Auto) 0.6 (0-2) % Neut # (Auto) 3900 (1178-9134) /uL Lymph # (Auto) 1000 L (6359-2955) /uL Moody # (Auto) 600 (0-900) /uL Eos # (Auto) 0 (0-450) /uL Baso # (Auto) 0 (0-100) /uL Sodium 137 (137-145) mmol/L Potassium 3.1 L (3.4-5.1) mmol/L Chloride 104 (98-107) mmol/L Carbon Dioxide 23 (22-32) mmol/L BUN 11 (9-20) mg/dL Creatinine 0.43 L (0.66-1.25) mg/dL Estimated GFR > 60.0 (>60) mL/min BUN/Creatinine Ratio 25.6 H (6-22) Glucose 188 H (80-110) mg/dL Lactate (0.7-2.1) mmol/L Calcium 8.6 (8.4-10.2) mg/dL Total Bilirubin 1.6 H (0.2-1.3) mg/dL AST 178 H (17-59) IU/L ALT 233 H (<50) IU/L Alkaline Phosphatase 109 (38-126) U/L Total Creatine Kinase 39 L (55-170) U/L CK-MB (CK-2) TNP CK-MB (CK-2) Rel Index TNP Troponin I 0.040 H (0.01-0.034) ng/mL NT-Pro-B Natriuret Pep 1810 H (<125) pg/mL Total Protein 7.4 (6.3-8.2) g/dL Albumin 3.6 (3.5-5.0) g/dL Globulin 3.8 (1.7-4.1) g/dL Albumin/Globulin Ratio 0.9 L (1.0-2.8) Procalcitonin 0.14 (<0.5) ng/mL Urine Color [place] Urine Appearance Clear Urine pH 7.0 (4.5-8.0) Ur Specific [place] 1.020 (1.000-1.035) Urine Protein 1+ H (Negative) Urine Glucose (UA) Negative (Negative) g/dL Urine Ketones 2+ H (NEGATIVE) Urine Occult Blood Negative (Negative) Urine Nitrate Positive (Negative) Urine Bilirubin Negative (NEGATIVE) Urine Urobilinogen 2.0 H (0.2) E.U./dL Ur Leukocyte Esterase Negative (NEGATIVE) Urine RBC None seen (0-5/HPF) Urine WBC None seen (0-5/HPF) Urine Bacteria None seen (None) Ur Culture Indicated? Specimen cultured SARS-CoV-2 (PCR) (Negative) 02/28/21 02/28/21 02/28/21 Range/Units 16:20 16:45 18:55 WBC (4.5-11.0) X10^3/uL RBC (4.5-5.9) X10^6/uL Hgb (13.5-17.5) g/dL Hct (41-53) % MCV (80-100) fL MCH (26-34) PG MCHC (30-36) % RDW (11.6-14.8) % Plt Count (150-400) X10^3/uL Neut % (Auto) (50-75) % Lymph % (Auto) (25-40) % Moody % (Auto) (3-14) % Eos % (Auto) (2-4) % Baso % (Auto) (0-2) % Neut # (Auto) (8147-4038) /uL Lymph # (Auto) (6407-9505) /uL Moody # (Auto) (0-900) /uL Eos # (Auto) (0-450) /uL Baso # (Auto) (0-100) /uL Sodium (137-145) mmol/L Potassium (3.4-5.1) mmol/L Chloride (98-107) mmol/L Carbon Dioxide (22-32) mmol/L BUN (9-20) mg/dL Creatinine (0.66-1.25) mg/dL Estimated GFR (>60) mL/min BUN/Creatinine Ratio (6-22) Glucose (80-110) mg/dL Lactate 2.6 H 1.8 (0.7-2.1) mmol/L Calcium (8.4-10.2) mg/dL Total Bilirubin (0.2-1.3) mg/dL AST (17-59) IU/L ALT (<50) IU/L Alkaline Phosphatase (38-126) U/L Total Creatine Kinase (55-170) U/L CK-MB (CK-2) CK-MB (CK-2) Rel Index Troponin I (0.01-0.034) ng/mL NT-Pro-B Natriuret Pep (<125) pg/mL Total Protein (6.3-8.2) g/dL Albumin (3.5-5.0) g/dL Globulin (1.7-4.1) g/dL Albumin/Globulin Ratio (1.0-2.8) Procalcitonin (<0.5) ng/mL Urine Color Urine Appearance Urine pH (4.5-8.0) Ur Specific [place] (1.000-1.035) Urine Protein (Negative) Urine Glucose (UA) (Negative) g/dL Urine Ketones (NEGATIVE) Urine Occult Blood (Negative) Urine Nitrate (Negative) Urine Bilirubin (NEGATIVE) Urine Urobilinogen (0.2) E.U./dL Ur Leukocyte Esterase (NEGATIVE) Urine RBC (0-5/HPF) Urine WBC (0-5/HPF) Urine Bacteria (None) Ur Culture Indicated? SARS-CoV-2 (PCR) Negative (Negative) Point of care testing: Urine culture from February 23 from [facility] shows Staph epidermidis. Resistant to oxacillin and penicillin. Susceptible to Cipro Gent levofloxacin was in the lid nitrofurantoin, rifampin tetracycline trimethoprim sulfamethoxazole and vancomycin Imaging Data Chest x-ray: Radiologist's Impression: FINDINGS: Surgical changes and devices: None. Lungs and pleura: Lungs are clear. No pleural effusions or pneumothorax. Mediastinum: Mediastinal contours appear normal. Heart size is normal. Bones and chest wall: No suspicious bony lesions. Overlying soft tissues appear unremarkable. IMPRESSION: No evidence acute pulmonary process. Dictated by: Esa Frost M.D. on 02/28/2021 at 15:30 ECG Data Attestation: I personally reviewed and interpreted this ECG as follows: Interpretation: Sinus rhythm at a rate of 96 Occasional PVC Normal axis No acute ischemic changes MDM Narrative Medical decision making narrative: 65-year-old gentleman with a history of prostate cancer post radiation CT scan of the abdomen in January and CT scan of the chest in December do not suggest widely metastatic disease. He had seen his urologist on February 23 presumed to have a urinary tract infection associated with his catheter that had been in place for a month at that time. He was started on nitrofurantoin in over the ensuing 48 hours he and his caregiver felt that he was getting worse. On initial exam he is pale, clinically week appears acutely ill concerns for sepsis or entertained. He was started on a 30 per kilos bolus of fluid, vancomycin and Zosyn were added. He does have and opioid dependence for chronic pain and has not had any opioid for almost 24 hours. Did improve with IV Dilaudid so I suspect some of the initial vital sign abnormalities were related to withdrawal symptoms. He also has not had his lisinopril or metoprolol for 24 hours. Remainder evaluation does not show pneumonia, meningitis. He does have slightly elevated liver enzymes and this may be due to the severity of his current disease and related to his history of cirrhosis and hepatitis C. His potassium is low and will be repleated. Lactic acid was slightly elevated 2.2 and will be repeated at 2:00 a.m. after fluid resuscitation. Slightly elevated troponin with out chest pain or EKG changes. Slightly elevated BNP with no evidence of clinical congestive heart failure. At this point, patient will be admitted to Dr. Chavez, on-call for Dr. Vasques is primary care physician. Presumptive diagnosis of sepsis with presumed urinary source possible Staph epidermidis. Elevated troponin with low suspicion for acute coronary syndrome but certainly will need to be followed and trended. No evidence of pneumonia. Findings are all reviewed with patient and he is stable to transfer to the floor. Discharge Plan Departure Patient Disposition: Admitted as Observation Clinical Impression: Elevated troponin, Acute hypokalemia, Acute dehydration, Elevated lactic acid level Urinary tract infection Qualifiers: Urinary tract infection type: catheter-associated UTI Indwelling urinary catheter type: indwelling urethral catheter Encounter type: sequela Qualified Code(s): T83.511S - Infection and inflammatory reaction due to indwelling urethral catheter, sequela
[2021-02-28 16:28] LABS: Bacteria Urine None Seen; RBC Urine None Seen (0-5/HPF); WBC Urine None Seen (0-5/HPF)
[2021-02-28] MEDS: SODIUM CHLORIDE 0.9% 586 ML IV (16:28)
[2021-02-28 16:36] LABS: Appearance Urine UA CLEAR; Bilirubin Urine UA NEGATIVE (NEGATIVE); Color Urine UA ORANGE; Glucose Urine UA NEGATIVE (Negative); Ketones Urine UA 2+ (NEGATIVE); Leukocyte Esterase Urine UA NEGATIVE (NEGATIVE); Nitrite Urine UA POSITIVE (Negative); Occult Blood Urine UA NEGATIVE (Negative); Protein Urine UA 1+ (Negative)
[2021-02-28 16:38] LABS: Add Manual Diff / Slide Review NO; Basophils Absolute Auto 0 /uL (0-100); Basophils Percent Auto 0.6 % (0-2); Eosinophils Absolute Auto 0 /uL (0-450); Eosinophils Percent Auto 0.1 % (2-4); Hematocrit 35.3 % (41-53); Hemoglobin 12.4 g/dL (13.5-17.5); Lymphocytes Absolute Auto 1000 /uL (1100-4500); Lymphocytes Percent Auto 18.3 % (25-40); Mean Corpuscular HGB Conc 35.1 % (30-36); Mean Corpuscular Hemoglobin 34.6 PG (26-34); Mean Corpuscular Volume 98.5 fL (80-100); Monocytes Absolute Auto 600 /uL (0-900); Monocytes Percent Auto 10.5 % (3-14); Neutrophils Absolute Auto 3900 /uL (1500-7000); Neutrophils Percent Auto 70.5 % (50-75); Platelet Count 104 X10^3/uL (150-400); Red Blood Cell Count 3.59 X10^6/uL (4.5-5.9); Red Cell Distribution Width 13.5 % (11.6-14.8); White Blood Cell Count 5.6 X10^3/uL (4.5-11.0)
[2021-02-28] MEDS: PIPERACILLIN/TAZO 4.5 GM in SODIUM CHLORIDE 0.9% 100 ML 200 ML IV (16:38)
[2021-02-28 16:39] LABS: Culture Indicated Urine Specimen Cultured
[2021-02-28 16:49] LABS: Alanine Aminotransferase 233 IU/L (<50); Albumin 3.6 g/dL (3.5-5.0); Albumin Globulin Ratio 0.9 (1.0-2.8); Alkaline Phosphatase 109 U/L (38-126); Aspartate Aminotransferase 178 IU/L (17-59); BUN Creatinine Ratio 25.6 (6-22); Bilirubin Total 1.6 mg/dL (0.2-1.3); Blood Urea Nitrogen 11 mg/dL (9-20); Calcium 8.6 mg/dL (8.4-10.2); Carbon Dioxide 23 mmol/L (22-32); Chloride 104 mmol/L (98-107); Creatine Kinase 39 U/L (55-170); Estimated Glomerular Filt Rate > 60.0 mL/min (>60); Globulin 3.8 g/dL (1.7-4.1); Glucose 188 mg/dL (80-110); HEMOLYSIS 36 (0-50); Potassium 3.1 mmol/L (3.4-5.1); Sodium 137 mmol/L (137-145); Total Protein 7.4 g/dL (6.3-8.2)
[2021-02-28] MEDS: HYDROMORPHONE 1 MG INJ IV ×2 (16:49→19:12)
[2021-02-28] MEDS: ONDANSETRON 4 MG/2 ML INJ IV (16:49)
[2021-02-28 16:50] LABS: Lactate (Lactic Acid) 2.6 mmol/L (0.7-2.1)
[2021-02-28 17:01] LABS: NT-proBNP (BNP-Adult 18+) 1810 pg/mL (<125)
[2021-02-28 17:06] LABS: Procalcitonin 0.14 ng/mL (<0.5)
[2021-02-28 17:55] LABS: COVID19 - ADMIT (NP swab/PCR) Negative (Negative)
[2021-02-28 18:33] LABS: Reflexed Lactate in 2 Hours Y
[2021-02-28 19:11] LABS: Lactate 2HR (Lactic Acid Rflx) 1.8 mmol/L (0.7-2.1)
--- NOTE | 2021-02-28 21:14 | PC.NURSE ---
PO meds pulled by floor RN to be given upon arrival to room 213
[2021-02-28] MEDS: ATORVASTATIN 20 MG TABLET PO (21:39)
[2021-02-28] MEDS: OXYCODONE IR 5 MG TABLET 10 MG PO (21:39)
[2021-02-28] MEDS: lisinopriL 20 MG TABLET PO (21:39)
[2021-02-28] MEDS: FUROSEMIDE 20 MG TABLET PO (21:39)
[2021-02-28] MEDS: PANTOPRAZOLE DR 40 MG TABLET PO (21:39)
[2021-02-28] MEDS: METOPROLOL ER 50 MG TABLET 100 MG PO (21:40)
[2021-02-28] MEDS: ASPIRIN 81 MG CHEW TAB PO (21:40)
[2021-02-28] MEDS: SODIUM CHLORIDE 0.9% 1,000 ML 100 ML IV (21:40)
[2021-02-28] MEDS: POTASSIUM CHLORIDE 10 MEQ TAB PO (21:43)
[2021-02-28] MEDS: PIPERACILLIN/TAZO 3.375 GM in SODIUM CHLORIDE 0.9% 100 ML 25 ML IV (21:58)
[2021-02-28 22:36] LABS: Troponin I 0.057 ng/mL (0.01-0.034)
[2021-03-01] VITALS (10 sets, daily range): BP systolic 111–163; BP diastolic 74–104; PULSE 66–83; RESP 16–20; TEMP 36.3–36.9; O2SAT 97–98
[2021-03-01 02:42] LABS: Troponin I 0.043 ng/mL (0.01-0.034)
[2021-03-01] MEDS: PHENAZOPYRIDINE 100 MG TABLET PO ×3 (04:41→21:36)
[2021-03-01] MEDS: HYDROMORPHONE 1 MG INJ IV ×3 (04:41→16:49)
[2021-03-01] MEDS: PIPERACILLIN/TAZO 3.375 GM in SODIUM CHLORIDE 0.9% 100 ML 25 ML IV ×2 (05:55→18:58)
[2021-03-01 06:29] LABS: Add Manual Diff / Slide Review NO; Basophils Absolute Auto 0 /uL (0-100); Basophils Percent Auto 0.4 % (0-2); Eosinophils Absolute Auto 0 /uL (0-450); Eosinophils Percent Auto 0.3 % (2-4); Hematocrit 31.8 % (41-53); Hemoglobin 11.3 g/dL (13.5-17.5); Lymphocytes Absolute Auto 900 /uL (1100-4500); Lymphocytes Percent Auto 17.3 % (25-40); Mean Corpuscular HGB Conc 35.7 % (30-36); Mean Corpuscular Volume 98.1 fL (80-100); Monocytes Absolute Auto 500 /uL (0-900); Monocytes Percent Auto 9.9 % (3-14); Neutrophils Absolute Auto 3800 /uL (1500-7000); Neutrophils Percent Auto 72.1 % (50-75); Platelet Count 91 X10^3/uL (150-400); Red Blood Cell Count 3.24 X10^6/uL (4.5-5.9); Red Cell Distribution Width 13.4 % (11.6-14.8); White Blood Cell Count 5.3 X10^3/uL (4.5-11.0)
[2021-03-01 06:47] LABS: Alanine Aminotransferase 213 IU/L (<50); Albumin 2.9 g/dL (3.5-5.0); Albumin Globulin Ratio 0.9 (1.0-2.8); Alkaline Phosphatase 80 U/L (38-126); Aspartate Aminotransferase 184 IU/L (17-59); BUN Creatinine Ratio 27.9 (6-22); Bilirubin Total 1.4 mg/dL (0.2-1.3); Blood Urea Nitrogen 12 mg/dL (9-20); Calcium 8.1 mg/dL (8.4-10.2); Carbon Dioxide 25 mmol/L (22-32); Chloride 105 mmol/L (98-107); Estimated Glomerular Filt Rate > 60.0 mL/min (>60); Globulin 3.3 g/dL (1.7-4.1); Glucose 124 mg/dL (80-110); HEMOLYSIS 15 (0-50); Sodium 135 mmol/L (137-145); Total Protein 6.2 g/dL (6.3-8.2)
[2021-03-01 06:55] LABS: NT-proBNP (BNP-Adult 18+) 1140 pg/mL (<125)
[2021-03-01 07:00] LABS: Troponin I 0.033 ng/mL (0.01-0.034)
[2021-03-01] MEDS: SODIUM CHLORIDE 0.9% 1,000 ML 100 ML IV (07:29)
[2021-03-01] MEDS: METOPROLOL ER 50 MG TABLET 100 MG PO ×2 (10:19→21:35)
[2021-03-01] MEDS: MEGESTROL 20 MG TABLET PO ×2 (10:20→21:37)
[2021-03-01] MEDS: PANTOPRAZOLE DR 40 MG TABLET PO ×2 (10:20→21:36)
[2021-03-01] MEDS: ASPIRIN 81 MG CHEW TAB PO (10:20)
[2021-03-01] MEDS: BUDESONIDE 3 MG CAP 6 MG PO (10:20)
[2021-03-01] MEDS: POTASSIUM CHLORIDE 10 MEQ TAB PO ×2 (10:20→21:37)
[2021-03-01] MEDS: ENOXAPARIN 40 MG/0.4 ML SYRINGE SUBCUT (10:21)
[2021-03-01] MEDS: FUROSEMIDE 20 MG TABLET PO (10:21)
[2021-03-01] MEDS: lisinopriL 20 MG TABLET PO ×2 (10:21→21:36)
[2021-03-01] MEDS: MAGNESIUM OXIDE 400 MG TABLET PO (10:21)
--- NOTE | 2021-03-01 10:28 | CM.DANOTE ---
Addendum entered by Radha Guajardo R.N. 03/01/21 15:42: Called Johanna at [facility], asking her to review. She stated she is not sure if [facility] is in the network of the insurance, they were when they were [facility]. She will run it through his insurance. Original Note: DCP: Case received, EMR reviewed and met with patient. Introduced self and role. Was able to obtain information regarding his baseline activity level, needs, and his current living situation. Was also able to speak to Dr. Bhat with additional information. Was able to complete DCP assessment with information currently available. Patient is a 65 year old male who admitted yesterday evening to the care of the hospitalist team. PCP: Dr. Vasques. Payer: confirmed: [employer]age. Patient came here to the hospital via ambulance secondary to weakness, nausea, dehydration. He had recently seen his urologist over at [facility] on 02-23, and was diagnosed with UTI, catheter induced. He has indwelling catheter. Patient also has history of prostate CA, and his most recent radiation treatment was on 02/06. Patient has history of hepatitis C with cirrhosis, anxiety, as well as diabetes type 2. He also has history of cannibus abuse and opioid dependency. Patient holds current diagnosis of pyelonephritis. Met with patient in his room. Dr. Bhat had just left the room. Patient was tearful. 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 He also has one son,Alexi, who lives in [facility]. He has two different caregivers that are private, Lisandra is his main caregiver, partner, who he has known for years. They come in 3-4 times a week, and he has assistance with showers, meals, and medication set up, which they do on Sundays. According to last note, he has had home health before, but patient denied having now. Patient also indicated that he does not drive, the home is set up with grab bars in the bathroom/showers. Dr. Bhat is anticipating that patient will be here for a couple of days. He does not yet have P.T. ordered. P: DCP to continue to follow closely. Will see if and how he progresses here in the hospital. Options are home health, or skilled, if he needs residential antibiotics. He has [facility] Medicare Advantage, and prior auth. would be needed. Radha Guajardo RN/Printing Worker Supervisor
--- NOTE | 2021-03-01 10:42 | P.HP_ITS ---
History of Present Illness History of Present Illness Date Patient Seen: 03/01/21 Time Patient Seen: 09:00 Chief complaint: Dehydration x2 day, UTI Narrative: Pt is a 65yo man with prostate cancer undergoing radiation therapy, chronic Hepatitis C, HTN, DM type 2, paroxysmal SVT s/p recent ablation, anxiety, and CAD who presented with fatigue, fevers, nausea and vomiting, and severe dysuria. The pt reports that around 1 month ago he had a urinary catheter placed by his Urologist. He was unable to recall exactly why today, but does report he was having some discomfort with urination at the time. He was started on Pyridium then, which he has continued to take since. 3 days ago he was started on Nitrofurantoin by his Urologist for a UTI. He had taken 2 da ys of the medication, but was then not able to keep it down due to persistent nausea. The day of presentation to the ED he developed significant fever and chills as well. He has been having very severe pain with urination. He reports mild intermittent suprapubic abdominal pain, but nothing all that severe. He has not has a BM in 3-4 days, and states this is causing him some discomfort as well, especially paired with his chronic low back pain issues. The pt does chronically take oxycodone for his back pain, and has been unable to keep it down for the last several doses. He has been feeling excessively weak. His caregivers have been very concerned about him. This morning, the pt reports that his severe dysuria is improved with the pain medication, but remains quite bad. He denies any blood in his urine. He denies any current significant abdominal pain. He denies any recent chest pain or SOB. The pt was very tearful during our discussion, feeling like everything terrible is happening all at once, and questioning if he is going to make it through. He states that he has been crying a lot recently, and doesn't want to hold it in anymore. Patient History Medical History Cannabis abuse Chronic hepatitis Coronary artery disease involving [place] coronary artery of [place] heart without angina pectoris (~2006) Diabetes type 2, uncontrolled Diverticulosis of large intestine (03/31/12) Essential hypertension Generalized anxiety disorder Hepatitis C Kidney stones Mixed hyperlipidemia Paroxysmal A-fib Prostate cancer (~05/2019) Surgical History H/O heart artery stent (~2006) History of angioplasty (~12/2006) Hx of inguinal hernia surgery (~09/20/08) Hx of inguinal hernia surgery (~03/07/14) Status post laminectomy Family & Social History Social History: household members none Prior Living Arrangements House lives independently Yes caregiver/support person No Safety & Behavioral: Feels Safe in Current Yes Environment Been Physically Hurt or No Threatened By a Person Suicidal Ideation Description None Suicide Plan Description No Plan Tobacco & Substance use: Smoking Status Never smoker alcohol intake former alcohol intake frequency a few times a week Substance Use Type marijuana Meds Home Medications and Allergies Home Medications Medication Instructions Recorded Confirmed Type ondansetron 4 mg disintegrating 4 mg PO Q6H PRN #30 tab 06/19/19 02/28/21 Rx tablet tamsulosin 0.4 mg PO QPM 08/15/19 02/28/21 History aspirin 81 mg PO QAM 11/06/19 02/28/21 History promethazine 25 mg OR Q4-6H PRN #12 ea 11/18/20 02/28/21 Rx metformin 500 mg tablet 500 mg PO BID #180 tab 11/24/20 02/28/21 Rx budesonide 3 mg 6 mg PO QAM #180 each 12/05/20 02/28/21 Rx capsule,delayed,extended release megestrol 20 mg PO BID 12/21/20 02/13/21 History metoprolol succinate 100 mg 100 mg PO BID tab 01/02/21 02/28/21 History tablet,extended release 24 hr oxycodone 5 mg tablet 10 mg PO Q4H PRN #360 tab 02/10/21 02/28/21 Rx simvastatin 40 mg tablet 40 mg PO QPM #90 tab 02/11/21 02/28/21 Rx cyclobenzaprine 5 mg tablet 5 mg PO TID PRN #60 tab 02/13/21 02/28/21 Rx furosemide 20 mg tablet 20 mg PO QAM #90 tab 02/13/21 02/28/21 Rx lisinopril 20 mg tablet 10 mg PO QAM 02/13/21 02/28/21 History potassium chloride 10 mEq 10 meq PO BID #180 tab 02/13/21 02/28/21 Rx tablet,extended release magnesium oxide 400 mg (241.3 mg 400 mg PO DAILY #30 tab 02/18/21 02/28/21 Rx magnesium) tablet omeprazole 40 mg capsule,delayed 40 mg PO BID #180 cap 02/24/21 02/28/21 Rx release nitrofurantoin monohyd/m-cryst 100 mg PO BID 02/28/21 02/28/21 History phenazopyridine 100 mg PO TID 02/28/21 02/28/21 History polyethylene glycol 3350 [Miralax] 17 g PO QAM 02/28/21 02/28/21 History Allergies Allergy/AdvReac Type Severity Reaction Status Date / Time No Known Drug Allergies Allergy Verified 02/13/21 09:54 Exam Vital Signs (past 8 hours): - 03/01/21 04:20 03/01/21 08:00 03/01/21 10:19 Temperature 98.3 F 97.3 F L Pulse Rate 66 66 66 Respiratory Rate 20 16 Blood Pressure 149/90 H 163/104 H 163/104 H Pulse Oximetry 98 98 03/01/21 10:21 Temperature Pulse Rate 66 Respiratory Rate Blood Pressure 163/104 H Pulse Oximetry Oxygen Delivery Method Room Air Oxygen Flow Rate 0 Narrative Exam Narrative: GEN - alert, cooperative and no distress, tearful throughout encounter when discussing health HEENT - normocephalic and atraumatic, sclera white, moist mucus membranes NECK - FROM, no adenopathy, no JVD HEART - RRR, S1, S2 normal, no S3 or S4, no murmurs LUNGS - symmetric chest rise, no accessory muscles, clear to auscultation bila terally ABD - flat, nondistended, normal bowel sounds, soft, no hepatomegaly, splenomegaly or masses, mild tenderness suprapubic region, no CVA tenderness EXT - no cyanosis, clubbing or edema SKIN - no rashes or suspicious lesions NEURO - no gross deficits Objective Labs Result Diagrams: 03/01/21 06:10 03/01/21 06:10 Labs: Laboratory Results - last 24 hr 02/28/21 02/28/21 02/28/21 16:15 16:20 16:20 WBC 5.6 RBC 3.59 L Hgb 12.4 L Hct 35.3 L MCV 98.5 MCH 34.6 H MCHC 35.1 RDW 13.5 Plt Count 104 L Neut % (Auto) 70.5 Lymph % (Auto) 18.3 L [place] % (Auto) 10.5 Eos % (Auto) 0.1 L Baso % (Auto) 0.6 Neut # (Auto) 3900 Lymph # (Auto) 1000 L [place] # (Auto) 600 Eos # (Auto) 0 Baso # (Auto) 0 Sodium 137 Potassium 3.1 L Chloride 104 Carbon Dioxide 23 BUN 11 Creatinine 0.43 L Estimated GFR > 60.0 BUN/Creatinine Ratio 25.6 H Glucose 188 H Lactate Calcium 8.6 Total Bilirubin 1.6 H AST 178 H ALT 233 H Alkaline Phosphatase 109 Total Creatine Kinase 39 L CK-MB (CK-2) TNP CK-MB (CK-2) Rel Index TNP Troponin I 0.040 H NT-Pro-B Natriuret Pep 1810 H Total Protein 7.4 Albumin 3.6 Globulin 3.8 Albumin/Globulin Ratio 0.9 L Procalcitonin 0.14 Urine Color [place] Urine Appearance Clear Urine pH 7.0 Ur Specific [place] 1.020 Urine Protein 1+ H Urine Glucose (UA) Negative Urine Ketones 2+ H Urine Occult Blood Negative Urine Nitrate Positive Urine Bilirubin Negative Urine Urobilinogen 2.0 H Ur Leukocyte Esterase Negative Urine RBC None seen Urine WBC None seen Urine Bacteria None seen Ur Culture Indicated? Specimen cultured SARS-CoV-2 (PCR) 02/28/21 02/28/21 02/28/21 16:20 16:45 18:55 WBC RBC Hgb Hct MCV MCH MCHC RDW Plt Count Neut % (Auto) Lymph % (Auto) [place] % (Auto) Eos % (Auto) Baso % (Auto) Neut # (Auto) Lymph # (Auto) [place] # (Auto) Eos # (Auto) Baso # (Auto) Sodium Potassium Chloride Carbon Dioxide BUN Creatinine Estimated GFR BUN/Creatinine Ratio Glucose Lactate 2.6 H 1.8 Calcium Total Bilirubin AST ALT Alkaline Phosphatase Total Creatine Kinase CK-MB (CK-2) CK-MB (CK-2) Rel Index Troponin I NT-Pro-B Natriuret Pep Total Protein Albumin Globulin Albumin/Globulin Ratio Procalcitonin Urine Color Urine Appearance Urine pH Ur Specific [place] Urine Protein Urine Glucose (UA) Urine Ketones Urine Occult Blood Urine Nitrate Urine Bilirubin Urine Urobilinogen Ur Leukocyte Esterase Urine RBC Urine WBC Urine Bacteria Ur Culture Indicated? SARS-CoV-2 (PCR) Negative 02/28/21 03/01/21 03/01/21 22:10 02:10 06:10 WBC 5.3 RBC 3.24 L Hgb 11.3 L Hct 31.8 L MCV 98.1 MCH 35.0 H MCHC 35.7 RDW 13.4 Plt Count 91 L Neut % (Auto) 72.1 Lymph % (Auto) 17.3 L [place] % (Auto) 9.9 Eos % (Auto) 0.3 L Baso % (Auto) 0.4 Neut # (Auto) 3800 Lymph # (Auto) 900 L [place] # (Auto) 500 Eos # (Auto) 0 Baso # (Auto) 0 Sodium Potassium Chloride Carbon Dioxide BUN Creatinine Estimated GFR BUN/Creatinine Ratio Glucose Lactate Calcium Total Bilirubin AST ALT Alkaline Phosphatase Total Creatine Kinase CK-MB (CK-2) CK-MB (CK-2) Rel Index Troponin I 0.057 H 0.043 H NT-Pro-B Natriuret Pep Total Protein Albumin Globulin Albumin/Globulin Ratio Procalcitonin Urine Color Urine Appearance Urine pH Ur Specific [place] Urine Protein Urine Glucose (UA) Urine Ketones Urine Occult Blood Urine Nitrate Urine Bilirubin Urine Urobilinogen Ur Leukocyte Esterase Urine RBC Urine WBC Urine Bacteria Ur Culture Indicated? SARS-CoV-2 (PCR) 03/01/21 03/01/21 06:10 06:10 WBC RBC Hgb Hct MCV MCH MCHC RDW Plt Count Neut % (Auto) Lymph % (Auto) [place] % (Auto) Eos % (Auto) Baso % (Auto) Neut # (Auto) Lymph # (Auto) [place] # (Auto) Eos # (Auto) Baso # (Auto) Sodium 135 L Potassium 3.0 L Chloride 105 Carbon Dioxide 25 BUN 12 Creatinine 0.43 L Estimated GFR > 60.0 BUN/Creatinine Ratio 27.9 H Glucose 124 H Lactate Calcium 8.1 L Total Bilirubin 1.4 H AST 184 H ALT 213 H Alkaline Phosphatase 80 Total Creatine Kinase CK-MB (CK-2) CK-MB (CK-2) Rel Index Troponin I 0.033 NT-Pro-B Natriuret Pep 1140 H Total Protein 6.2 L Albumin 2.9 L Globulin 3.3 Albumin/Globulin Ratio 0.9 L Procalcitonin Urine Color Urine Appearance Urine pH Ur Specific [place] Urine Protein Urine Glucose (UA) Urine Ketones Urine Occult Blood Urine Nitrate Urine Bilirubin Urine Urobilinogen Ur Leukocyte Esterase Urine RBC Urine WBC Urine Bacteria Ur Culture Indicated? SARS-CoV-2 (PCR) Assessment & Plan Assessment & Plan narrative: Pt is a 65yo man with prostate cancer undergoing radiation therapy, chronic hepatitis c, HTN, DM type 2, paroxysmal SVT s/p recent ablation, anxiety, recurrent colitis and CAD who presented with fatigue, fevers, nausea and vomiting, and severe dysuria. Pt was febrile at presentation to the ED, with tachycardia and elevated lactate. He did not have an elevation in WBC count, or any evidence of end-organ damage, however. Presumed source of his infection is UTI, however U/A negative likely due to recent antibiotics. Volume resuscitated in the ED. BNP elevated at admission, but no clinical signs of volume overload. Recent Echo from 11/2020 showing EF 50-55%. 1) Acute complicated UTI: Failing initial outpatient treatment. Outside culture from 02/23 growing Staph epidermidis that is resistant to penicillin and oxacillin. - Continue Vancomycin and Zosyn for now - F/U blood and urine cultures - Obtain CT abdomen/pelvis today to evaluate for any potentially obstructive cause - Pyridium PRN - Zofran IV PRN for nausea - Pt has required intermittent Dilaudid due to the severity of pain 2) Hypokalemia: - Continue regular home potassium supplementation - Additional 20mEq IV now - Trend BMP 3) Type 2 [place]: Elevated troponin, now trended down. Most likely due to initially quite elevated BPs due to pain and not tolerating antihypertensives and resultant increased heart strain. Pt remained asymptomatic. - Continue to monitor for symptoms 4) Consitpation: No BM for the last 3-4 days - Dulcolax BID 5) DM Type 2: Controlled at baseline - Hold home Metformin for now - q6hr blood sugar checks due to very limited PO intake - low dose sliding scale insulin coverage 6) HTN, CAD: BP quite elevated at presentation, now more labile. - Increase Lisinopril to 20mg daily - Continue home Metoprolol, Simvastatin, Aspirin, Furosemide 7) Chronic back pain: - Continue home oxycodone 8) Prostate cancer: - Continue home Tamsulosin, Megestrol - Encourage PO intake 9) Recurrent colitis: - Continue Budesonide 10) Anxiety/Depression: Pt seems quite depressed this morning. Likely related to acute hospitalization, however pt does endorse feeling down for more prolonged period as well. - May benefit from antidepressant in the near future. Will leave this to PCP, Dr Vasques, who will assume care tomorrow. FEN: Diabetic diet as tolerated DVT ppx: Lovenox Code: Discussed with pt this morning. He expressed that he does not want to be brought back. DNR status therefore entered into the chart. Dispo: Pending work-up as above, improvement in symptoms. Anticipate at least 2 midnights. Pt will need to work with PT/OT prior to d/c, but does not feel has the strength to today. May benefit from SNF placement after d/c. Quality VTE Deep Vein Thrombosis/Pulmonary Embolism Present on Admission: No
--- NOTE | 2021-03-01 10:54 | PC.NURSE ---
Pt conversant but withdrawn, Dr. Bhat in to see Pt and says he feels depressed. Room quietPt settling in bed, discussed plan of care, d/c'd tele. Meds and pain meds given and Pt resettled. Will rest for the time being. Door open enough to see Pt and assist as needed.
--- NOTE | 2021-03-01 10:59 | DI.CT.S_ITS ---
PROCEDURE: CT ABDOMEN PELVIS W CON INDICATIONS: complicated UTI, prostate cancer TECHNIQUE: After the administration of intravenous contrast, axial sections acquired from the lung bases to the pubic symphysis. Coronal and sagittal reformats were performed. For radiation dose reduction, the following was used: automated exposure control, adjustment of mA and/or kV according to patient size. COMPARISON: [facility], CT, CT ABDOMEN PELVIS W CON, 01/10/2021, 15:12. FINDINGS: Image quality: Excellent. Lung bases: Minimal focal atelectasis versus consolidation in the extreme left lung base. Heart: No significant findings. ABDOMEN: Liver: Benign calcifications at the dome of the liver. Otherwise unremarkable.. Gallbladder: Unremarkable. Biliary ducts: Unremarkable. Pancreas: Multiple small, 5 mm or less cystic lesions are present in the pancreas, unchanged. Spleen: Unremarkable. Adrenal Glands: Unremarkable. Kidneys and Ureters: Unremarkable. Stomach and Bowel: Stomach, small bowel loops, and colon are unremarkable. Intestinal malrotation. Normal bowel wall thickness. Normal appendix, in the right lower quadrant. Sigmoid diverticulosis without evidence of diverticulitis. Peritoneum: No free air, free fluid, or abscess cavity. Ventral Wall: No hernias. Abdominal Nodes: No retroperitoneal or mesenteric adenopathy by size criteria. Vessels: Aorta and inferior vena cava are normal in size. PELVIS: Pelvic Organs: Prostate implant seeds. Bladder: Unremarkable. Pelvic Nodes: No enlarged lymph nodes. Miscellaneous: No hernias are seen. Bones: Unremarkable. Stable lucencies in the right iliac bone dating back to 2009 are benign. IMPRESSION: 1. Small area of focal atelectasis versus consolidation in the extreme left lung base. 2. Known intestinal malrotation. 3. Numerous 5 mm or less cystic lesions of pancreas, unchanged, possibly representing IPMN. 4. No evidence acute abdominal process. Dictated by: Esa Frost M.D. on 03/01/2021 at 12:41 Approved by: Esa Frost M.D. on 03/01/2021 at 13:02
[2021-03-01] MEDS: VANCOMYCIN 1,000 MG/200 ML PIGGYBACK 200 MG IV ×4 (11:53→16:51)
[2021-03-01] MEDS: POTASSIUM CHLORIDE IN WATER 10 MEQ/100 ML PIGGYBACK 100 MEQ IV ×2 (13:07→13:59)
[2021-03-01] MEDS: INSULIN LISPRO 100 UNIT/ML 3ML VIAL SUBCUT ×3 (13:59→22:16)
[2021-03-01] MEDS: TAMSULOSIN 0.4 MG CAPSULE PO (16:25)
[2021-03-01] MEDS: IBUPROFEN 600 MG TABLET PO (21:36)
[2021-03-01] MEDS: ATORVASTATIN 20 MG TABLET PO (21:36)
[2021-03-01] MEDS: OXYCODONE IR 5 MG TABLET 10 MG PO (22:24)
[2021-03-02] VITALS (9 sets, daily range): BP systolic 129–153; BP diastolic 75–105; PULSE 55–75; RESP 16; TEMP 36.2–36.7; O2SAT 96–99
[2021-03-02] MEDS: VANCOMYCIN 1,000 MG/200 ML PIGGYBACK 200 MG IV ×4 (00:21→19:56)
[2021-03-02] MEDS: SODIUM CHLORIDE 0.9% 1,000 ML 100 ML IV ×2 (01:30→14:43)
[2021-03-02] MEDS: PIPERACILLIN/TAZO 3.375 GM in SODIUM CHLORIDE 0.9% 100 ML 25 ML IV ×3 (01:30→18:40)
[2021-03-02] MEDS: OXYCODONE IR 5 MG TABLET 10 MG PO ×2 (02:26→06:35)
--- NOTE | 2021-03-02 03:37 | PC.NURSE ---
patient is alert and oriented; soft spoken. Breath sounds diminished but CTA with RA sat of 97%. HRR. Denies nausea. BT present but has not had BM since 02/26; has Dulcolax prn so will offer when awake next time. Denies frequency/urgency but states has 7/10 burning pain with urination; urine is clear orange (related to use of Pyridium). Is able to turn himself in bed. Generalized weakness so will need assistance when getting out of bed but gait not assessed at this time. Has chronic bilateral LE neuropathy. Complains of suprapubic pain of 3/10 at rest. Medicated with Oxycodone at 0226 for complaints of abdominal pain; takes oxycodone chronically for back pain. Wearing bilateral calf SCD's. Fall risk score is high and bed alarm is activated.
[2021-03-02 05:52] LABS: Add Manual Diff / Slide Review NO; Basophils Absolute Auto 0 /uL (0-100); Basophils Percent Auto 0.4 % (0-2); Eosinophils Absolute Auto 0 /uL (0-450); Eosinophils Percent Auto 0.8 % (2-4); Hematocrit 28.2 % (41-53); Hemoglobin 10.1 g/dL (13.5-17.5); Lymphocytes Absolute Auto 700 /uL (1100-4500); Lymphocytes Percent Auto 22.8 % (25-40); Mean Corpuscular HGB Conc 35.9 % (30-36); Mean Corpuscular Hemoglobin 34.9 PG (26-34); Mean Corpuscular Volume 97.2 fL (80-100); Monocytes Absolute Auto 400 /uL (0-900); Monocytes Percent Auto 14.4 % (3-14); Neutrophils Absolute Auto 1800 /uL (1500-7000); Neutrophils Percent Auto 61.6 % (50-75); Platelet Count 76 X10^3/uL (150-400); Red Blood Cell Count 2.91 X10^6/uL (4.5-5.9); Red Cell Distribution Width 13.3 % (11.6-14.8); White Blood Cell Count 2.9 X10^3/uL (4.5-11.0)
[2021-03-02 06:07] LABS: Blood Urea Nitrogen 19 mg/dL (9-20); Carbon Dioxide 27 mmol/L (22-32); Chloride 106 mmol/L (98-107); Estimated Glomerular Filt Rate > 60.0 mL/min (>60); Glucose 134 mg/dL (80-110); HEMOLYSIS < 15 (0-50); Potassium 2.9 mmol/L (3.4-5.1); Sodium 134 mmol/L (137-145)
[2021-03-02] MEDS: BISACODYL 5 MG TABLET PO ×2 (06:35→21:47)
--- NOTE | 2021-03-02 08:04 | PM.PN.1 ---
Subjective Subjective Date Patient Seen: 03/02/21 Time Patient Seen: 08:04 Interval history: Patient was reviewed with Dr. Bhat, before I came to see him. This morning he looks more weak and cachectic than I remember seeing him even back about 2-3 weeks ago. Still having significant pain with urination. Catheter was removed last week. Still does not have any appetite at all although eating does not seem to produce the nausea that it did before. Exam Vital Signs (past 8 hours): - 03/02/21 01:19 03/02/21 05:42 Temperature 97.2 F L 98.0 F Pulse Rate 65 55 L Respiratory Rate 16 16 Blood Pressure 134/87 135/82 Pulse Oximetry 97 99 Oxygen Delivery Method Room Air Oxygen Flow Rate 0 Objective Labs Result Diagrams: 03/02/21 05:20 03/02/21 05:20 Labs: Laboratory Results - last 24 hr 03/02/21 03/02/21 05:20 05:20 WBC 2.9 L RBC 2.91 L Hgb 10.1 L Hct 28.2 L MCV 97.2 MCH 34.9 H MCHC 35.9 RDW 13.3 Plt Count 76 L Neut % (Auto) 61.6 Lymph % (Auto) 22.8 L [place] % (Auto) 14.4 H Eos % (Auto) 0.8 L Baso % (Auto) 0.4 Neut # (Auto) 1800 Lymph # (Auto) 700 L [place] # (Auto) 400 Eos # (Auto) 0 Baso # (Auto) 0 Sodium 134 L Potassium 2.9 L Chloride 106 Carbon Dioxide 27 BUN 19 Creatinine 0.50 L Estimated GFR > 60.0 BUN/Creatinine Ratio 38.0 H Glucose 134 H Calcium 8.0 L PFSH Medical History Cannabis abuse Chronic hepatitis Coronary artery disease involving [place] coronary artery of [place] heart without angina pectoris (~2006) Diabetes type 2, uncontrolled Diverticulosis of large intestine (03/31/12) Essential hypertension Generalized anxiety disorder Hepatitis C Kidney stones Mixed hyperlipidemia Paroxysmal A-fib Prostate cancer (~05/2019) Surgical History H/O heart artery stent (~2006) History of angioplasty (~12/2006) Hx of inguinal hernia surgery (~09/20/08) Hx of inguinal hernia surgery (~03/07/14) Status post laminectomy Social History marital status: unmarried,single number of children: 3 household members: none lives independently: Yes caregiver/support person: No housing: house pets and animals: No education level: high school occupational status: other 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/mandaen: None leisure activities: music, fishing and other Smoking Status: Never smoker Tobacco: How many years used: 56 Smokeless tobacco user: other quit status: has quit before second hand exposure: Yes (On farmland/Boat.) alcohol intake: former substance use type: does not use and marijuana eating out: rarely or never Type(s) of exercise: normal ROM and activity and additional Assessment & Plan Assessment & Plan narrative: 1. UTI with possible Staph epidermidis based on cultures from [place] apparently. Unsure whether this is a contaminant or not. Patient really have evidence of infection on specimen from the ER here. Patient's symptoms generally have been well out of proportion to findings. He may or may not have been septic early onMinimal elevation in heart rate but normal blood pressures for him (which is hypertensive) etcetera. At this point he will continue on some IV fluids does need electrolyte replacement. Continue on IV antibiotics. Still having lots of pain with urination not sure as to the etiology for this. Likely related to his chronic catheterization but patient also clearly has a very low threshold for pain and I think that is playing a role here as well. He describes tremendous and horrible unrelenting pain with his radiation therapy for his prostate cancer, there may be an element of radiation cystitis and or urethritis going on here as well. I am not comfortable continuing him on hydromorphone for this level of pain. Will continue with his oral pain meds and we discussed that this morning. 2. Diabetes-adequate control blood sugars for now. No changes. 3. Hypokalemia-will replace intravenously as well as increases or placement. 4. Severe protein calorie malnutrition-patient with significant weight loss since this illness all began. Continues to be quite malnourished with a BMI of only 18 now. Very limited appetite. Will try to encourage foods and have him seen by dietary as well. 5. Hypertension-blood pressure well controlled for now. Continue current medications 6. Anxiety-patient is clearly anxious and also has an element of depression here. He failed attempt to place him on duloxetine back earlier in the year which was in part for pain management but more for depression. He had significant side effects just feeling ?weird ?in his head. Really quite resistant to any additional antihypertensive therapy at this point. Therefore I am not going to initiate that for now. 7. Disposition-patient as above with weight loss and overall medical issues quite weak and debilitated. Will have him seen by Physical therapy. I anticipate he can likely go home but unsure as to exactly when that might be appropriate at this point. Note: Greater than 30 minutes was spent evaluating the patient on the floor, including examining the patient, discussing clinical course with clinical and nursing staff, reviewing clinical course in the computer, preparing documentation and writing orders for continued management of care, discussing status with family as appropriate, reviewing plans for the next 24 hours with both patient/family and nursing staff as appropriate. Quality VTE Deep Vein Thrombosis/Pulmonary Embolism Present on Admission: No
[2021-03-02] MEDS: POTASSIUM CHLORIDE 10 MEQ TAB 20 MEQ PO ×2 (08:51→21:46)
[2021-03-02] MEDS: MAGNESIUM OXIDE 400 MG TABLET PO (08:51)
[2021-03-02] MEDS: FUROSEMIDE 20 MG TABLET PO (08:51)
[2021-03-02] MEDS: PHENAZOPYRIDINE 100 MG TABLET PO ×3 (08:51→21:46)
[2021-03-02] MEDS: ENOXAPARIN 40 MG/0.4 ML SYRINGE SUBCUT (08:51)
[2021-03-02] MEDS: METOPROLOL ER 50 MG TABLET 100 MG PO ×2 (08:52→21:47)
[2021-03-02] MEDS: PANTOPRAZOLE DR 40 MG TABLET PO ×2 (08:52→21:47)
[2021-03-02] MEDS: lisinopriL 20 MG TABLET PO ×2 (08:52→21:47)
[2021-03-02] MEDS: ASPIRIN 81 MG CHEW TAB PO (08:52)
[2021-03-02] MEDS: OXYCODONE IR 5 MG TABLET 15 MG PO ×5 (09:02→21:47)
[2021-03-02] MEDS: BUDESONIDE 3 MG CAP 6 MG PO (09:09)
[2021-03-02] MEDS: MEGESTROL 20 MG TABLET PO ×2 (09:09→21:48)
[2021-03-02] MEDS: POTASSIUM CHLORIDE IN WATER 10 MEQ/100 ML PIGGYBACK 100 MEQ IV ×6 (09:20→17:44)
--- NOTE | 2021-03-02 10:45 | PT.IIE ---
Current Diagnoses Urinary tract infection, site not specified (02/28/21) Surgical History (Last Reviewed 03/02/21 @ 08:06 by Khang Vasques MD) H/O heart artery stent (~2006) History of angioplasty (~12/2006) Hx of inguinal hernia surgery (~09/20/08) Hx of inguinal hernia surgery (~03/07/14) Status post laminectomy Medical History (Last Reviewed 03/02/21 @ 08:06 by Khang Vasques MD) Cannabis abuse Chronic hepatitis Coronary artery disease involving [place] coronary artery of ione heart without angina pectoris (~2006) Diabetes type 2, uncontrolled Diverticulosis of large intestine (03/31/12) Essential hypertension Generalized anxiety disorder Hepatitis C Kidney stones Mixed hyperlipidemia Paroxysmal A-fib Prostate cancer (~05/2019) Physical Therapy Inpatient Evaluation/Re-Eval M1 PT/OT-IP Prior Functional Status Start: 03/02/21 08:36 Freq: NEEDED Status: Active Protocol: Document 03/02/21 10:45 AW (Rec: 03/02/21 11:31 AW [id number]) Medical Review Prior Functional Status Medical History Reviewed Yes Communication Pt is an effective verbal communicator Mobility and Gait Pt has and uses several canes, FWW's, and manual wheelchairs . He uses a cane when I need it, a walker depending on pain, and a wheelchair when out of the house and need to get around more quickly. He walks 1/4 mile to his barn 1- 2x/day and usually uses a cane for that purpose. He fell a few weeks ago on his way to the toilet. He is vague about other falls. He has neuropathy affecting B LE in stocking pattern up to the knee. My feet get tangled up from time to time. Activities of Daily Living and IADL's Pt typically does his own dressing, has SBA and occasional drying assist from his friends/caregivers. He cooks for himself. He has friends who provide caregiver assist on Tuesday mornings, Wednesdays and Fridays 1500- 2100. They assist with showers , laundry, general housekeeping as needed. Prior Functional Level (Other details) Pt has prostate cancer and just finished adjuvant radiation a few weeks ago. He reports continued fatigue related to radiation therapy. PMH includes DM2, hepatitis C, chronic LBP, chronic narcotic use. Social History Household Members none Living Arrangements House Number of Floors (Floors) 3 or More Floors Number of Stairs To Enter/Railing? Pt has a ramped entry and lives on the tricot knitter. He notes he does have a step- down kitchen with rails/grab bars for the step. Home Environment Standard Height Toilet,Tub/ Shower,Ramp Home Equipment Four Wheel Walker,Straight Cane,Manual Wheelchair,Long Handled Shoe Horn,Lift Recliner,Grab Bars Near Toilet ,Grab Bars In Shower Employment Status Self-Employed Additional Social History Comment Additional equipment: Pt has an adjustable bed. Pt lives alone. 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 His friends , Lisandra and Gemini, provide assist as noted above. He also has an adopted son who provides intermittent assist. M2 PT-IP Current Condition Start: 03/02/21 08:36 Freq: NEEDED Status: Active Protocol: Document 03/02/21 10:45 AW (Rec: 03/02/21 11:31 AW [id number]) Physical Therapy Current Condition Current Condition Evaluation Date 03/02/21 Treatment Diagnosis UTI, generalized weakness, impaired mobility and gait Onset Date 02/28/21 Precautions Other Precautions falls M3 PT-IP Subjective Start: 03/02/21 08:36 Freq: NEEDED Status: Active Protocol: Document 03/02/21 10:45 AW (Rec: 03/02/21 11:31 AW [id number]) Subjective Physical Therapy Visit Type Type Initial Evaluation Visit Start Time 10:05 Visit Stop Time 10:45 Total Visit Minutes 40 Physical Therapy Visit Comments Patient Comments Pt is willing to participate with PT Patient Goals I'd love to get back to my regular routine. Therapy Pain Assessment Pain When Pain Assessed During Mobility Pain Present Pain Present Denied Pain M4 PT-IP Mobility and Gait Start: 03/02/21 08:36 Freq: NEEDED Status: Active Protocol: Document 03/02/21 10:45 AW (Rec: 03/02/21 11:31 AW [id number]) PT-Bed Mobility Assessment Supine to Sit Supine to Sit Standby Assistance PT-Transfer Assessment Sit to and From Stand Sit to and from Stand Standby Assistance,Use of Upper Extremities Equipment Transfer Assistive Device None,Gait Belt,Front Wheeled Walker Orthotic/Prosthetic Devices or Brace: No Transfers Transfer Destination Bed,Chair Transfer Technique Stand Step Pivot Transfer Ability Level of Assist Standby Assistance Comments Mobility Comments Pt was reclined in bed as PT arrived. BP 138/100 HR 73. He rolled to his right and transitioned to sitting EOB SBA. He stood and walked around the room without AD SBA to CGA for unsteadiness. He sat on the window seat to rest . Standing again (SBA), pt donned his face mask and agreed to ambulate in the hallway. With FWW, pt ambulated around the [facility] SBA. With increased distance and fatigue , he tended to push the walker too far forward but was able to correct in response to cues . On return to the room, he transferred to the chair SBA. BP was 150/97 HR 75. He decided to return to bed, transferring without AD SBA. Pt was positioned on the bed with call light and tray table in reach. He agreed to use the call light for all mobility needs. Gait Assessment Gait Gait Assistance Required: Standby Assistance,Contact Guard Assist Distance (Feet) 200 Assistive Devices Assistive Device Gait Belt,Front Wheeled Walker Orthotic/Prosthetic Devices or Brace: No Gait Deviations General Gait Pattern Decreased Stride Length, Decreased Feet Clearance, Flexed Trunk Factors Limiting Gait Function Factors Limiting Gait Function Decreased Activity Tolerance, Decreased Sensation,Decreased Strength,Limited Range of Motion,Poor Balance Comments Gait Comments See mobility comments for details. Stair Climbing Assessment Comments Stair Climbing Comments Not assessed. PT-Balance Assessment Sitting Balance and Reactions Static Sitting Balance Ability Good Dynamic Sitting Balance Ability Good Standing Balance and Reactions Static Standing Balance Ability Good Dynamic Standing Balance Ability Fair Device Used FWW Balance Tests Single Limb Standing <3 sec B LE Romberg increased sway in WBOS EC Tandem Standing unable to assume position without assist Functional Assessments Other Functional Tests Performed Gait speed 0.3 m/s M5 PT-IP Objective Assessments Start: 03/02/21 08:36 Freq: NEEDED Status: Active Protocol: Document 03/02/21 10:45 AW (Rec: 03/02/21 11:31 AW [id number]) Orientation Orientation/Cognition Level of Alertness Alert Orientation Name,Month,Place,Situation Language Function Ability No Deficits Noted Safety Awareness Understands Safety Issues Memory Description No Deficits Noted Gross Range of Motion Upper Extremity ROM Assessment Within Functional Limits Lower Extremity ROM Assessment Bilaterally Impaired Impairments AROM and PROM knee extension lacking ~5 degrees Strength Lower Extremity Strength Assessment Bilaterally Impaired Hip 4-/5 Knee 4/5 extension; 4-/5 flexion Ankle 4-/5 Sensation Assessment Sensation Gross Sensation Right LE Impaired,Left LE Impaired Light Touch Impaired Proprioception (Position) Impaired Comments Sensation Comments Neuropathy affecting B LE up to knee joint line with distal most affected. Muscle Tone Comments Muscle Tone Comments Pt is cachectic and appears frail. M6 PT-IP Treatment Start: 03/02/21 08:36 Freq: NEEDED Status: Active Protocol: Document 03/02/21 10:45 AW (Rec: 03/02/21 11:31 AW [id number]) Physical Therapy Treatment Education Education Provided Safety Other Treatments Other Treatment Performed Discussed role of PT and plan of care. Pt has set up his home as optimally as he can for mobility but is open to HH assessment. M7 PT-IP Assessment and Plan Start: 03/02/21 08:36 Freq: NEEDED Status: Active Protocol: Document 03/02/21 10:45 AW (Rec: 03/02/21 11:31 AW [id number]) PT Summary Assessment and Plan Potential Rehabilitation Potential Fair Status of Condition at Evaluation Evolving Summary Impairments Pain,ROM,Strength,Balance, Sensation,Gait,Activity Tolerance Assessment Summary Reddy is a 65 yo man seen for PT evaluation with admitting diagnosis of UTI and type 2 [place]. He recently completed a course of radiation therapy for prostate cancer and is experiencing generalized weakness and fatigue. At baseline, pt is able to walk with a cane 1/4 from his house to the barn on his [employer]. He has friends who provide caregiver assist ~6 hours per day, 3 days per week. On evaluation, pt has decreased strength and limited activity tolerance affecting his mobility independence. PT recommends continued use of assistive device for energy conservation and safety. Pt would benefit from home health therapy to mitigate risks of immobility and improve strength. Goals Bed Mobility Goal Independent Transfer Goal Independent,Cane Gait Goal Independent,Cane Gait Distance 300 Other Goals - up/down 3 steps with unilateral rail IND Days to Meet Goals 5 Frequency of Treatment Frequency Of Treatment Once a Day Treatment Plan Physical Therapy Treatment Plan Bed Mobility Training,Transfer Training,Gait Training, Therapeutic Exercise,Balance Retraining,Discharge Planning Other Recommendations and Next Treatment gait training for endurance; Focus assess gait with SPC vs FWW Precautions Other Precautions falls Recommendations To Nursing Amount of Assist Needed Standby Assistance Discharge Recommendations PT Discharge Recommendations Home with Assistance,Home Health Transportation Needs at Discharge Private Vehicle
[2021-03-02] MEDS: INSULIN LISPRO 100 UNIT/ML 3ML VIAL SUBCUT ×3 (11:50→21:53)
--- NOTE | 2021-03-02 11:59 | PC.NURSE ---
RN notified of High BP and CBG
--- NOTE | 2021-03-02 15:11 | PC.NURSE ---
Addendum entered by Mallika Curtis R.N. 03/02/21 15:17: correction* 475 ml urine output this shift. Original Note: AC note: 375 ml output this shift. Dysuria symptoms are lessening, using urinal. Poor appetite. IVF infusing. Afebrile. Using call light appropriately.
--- NOTE | 2021-03-02 16:37 | DIET.PN ---
Dietary Progress Note Assessment: 65y M admitted for dehydration and UTI referred to nutrition for malnutrition screening. Pt finished radx therapy on February 06 for prostate cancer. Pt reports global weakness, severe nausea, and opioid related constipation with underlying ulcerative colitis. Per nursing pt has minor skin breakdown on sacrum and BMI 18.3 (severe for age). Per chart review pt has 10.7% unintentional weight loss over the past 2mo (severe). Consulted c pt and his caregiver in hospital room. Per caregiver, pt does not eat unless others are there to share the meal with him. Even if food is left, pt unlikely to consume it. Pt has hot and cold intolerance so prefers room temperature foods. Pt reports eating well, local and seasonal foods with limited intake carbohydrate foods. Pt recently has been trying to eat more nut and seed butters (peanut, cashew, sunflower). Pts drop board worker inquires about ingredients that may be helpful in making a substantial low sugar breakfast cookie as she feels this may be a good way to prop up his nutrition. NFPE shows moderate fat and muscle losses system wide with visible humoral head, scooping in clavicle, orbitals. Per PCP, pt appears more weak and cachectic than he did several weeks ago. Pt attended diabetes education classes a year ago and at that time was drinking Ensure daily but has since stopped as he feels they contain too much sugar and processed food ingredients. HT: 170.1cm WT: 53.1kg UBW: 58-60kg BMI: 18.3 Labs:Cr 0.50 L, K+ 2,9 L Nutrition Diagnosis:Severe Acute Protein Calorie Malnutrition r/t physical and psychological causes aeb 10.7% unintentional weight loss in 2mo (severe), BMI 18.3 (severe for age), NFPE shows moderate fat and muscle wasting with global weakness, severe nausea and vomiting post-radiation, pt not eating well when alone, only in communal setting c hx of anxiety and depression. Interventions: 1. Discussed importance of high protein and high healthy fat intake to support malnourished state. Encouraged continued intake nut and seed butters, even if just eating on spoon. Discussed lentil and bison stew (per pt suggestion) which can be batch cooked and consumed warm. 2. To address pts malnutrition and pts drop board worker wanting to create a breakfast cookie bar, recc using oat flour, stevia, nut butter, ground flax seeds, dried fruit, eggs. These will provide increased protein and calories and can be easily grabbed without preparation. Diet Order: CCD Monitoring/Evaluations: hospital POs
[2021-03-02] MEDS: CYCLOBENZAPRINE 10 MG TABLET 5 MG PO (17:43)
[2021-03-02] MEDS: TAMSULOSIN 0.4 MG CAPSULE PO (17:59)
[2021-03-02] MEDS: ATORVASTATIN 20 MG TABLET PO (21:47)
[2021-03-03] VITALS (11 sets, daily range): BP systolic 122–151; BP diastolic 78–96; PULSE 60–68; RESP 14–18; TEMP 36.1–37.3; O2SAT 96–99
[2021-03-03] MEDS: PIPERACILLIN/TAZO 3.375 GM in SODIUM CHLORIDE 0.9% 100 ML 25 ML IV ×3 (01:04→17:49)
[2021-03-03] MEDS: OXYCODONE IR 5 MG TABLET 15 MG PO ×4 (01:04→16:08)
[2021-03-03] MEDS: VANCOMYCIN 1,000 MG/200 ML PIGGYBACK 200 MG IV ×3 (01:26→19:16)
[2021-03-03] MEDS: SODIUM CHLORIDE 0.9% 1,000 ML 100 ML IV (01:27)
[2021-03-03 06:12] LABS: Hematocrit 27.7 % (41-53); Hemoglobin 9.8 g/dL (13.5-17.5)
[2021-03-03 06:20] LABS: BUN Creatinine Ratio 36.4 (6-22); Blood Urea Nitrogen 16 mg/dL (9-20); Calcium 7.7 mg/dL (8.4-10.2); Carbon Dioxide 21 mmol/L (22-32); Chloride 110 mmol/L (98-107); Estimated Glomerular Filt Rate > 60.0 mL/min (>60); Glucose 168 mg/dL (80-110); HEMOLYSIS < 15 (0-50); Sodium 135 mmol/L (137-145)
[2021-03-03] MEDS: POTASSIUM CHLORIDE IN WATER 10 MEQ/100 ML PIGGYBACK 100 MEQ IV ×4 (07:33→15:05)
--- NOTE | 2021-03-03 08:30 | P.PN_ITS ---
Subjective Subjective Date Patient Seen: 03/03/21 Time Patient Seen: 08:30 Interval history: Patient says he is feeling better. Was able to eat more of his meals yesterday. Not having the pain with urination as dramatically or as consistently as he was. Still hurts when he starts his stream but is improved overall No new complaints other than the IV potassium he is currently receiving is causing some burning to his arm Exam Vital Signs (past 8 hours): - 03/03/21 01:52 03/03/21 03:27 Temperature 98.4 F Pulse Rate 64 64 Respiratory Rate 18 Blood Pressure 142/88 H 133/95 H Pulse Oximetry 98 Oxygen Delivery Method Room Air Oxygen Flow Rate 0 Objective Labs Result Diagrams: 03/03/21 05:50 03/03/21 05:50 Labs: Laboratory Results - last 24 hr 03/03/21 03/03/21 05:50 05:50 Hgb 9.8 L Hct 27.7 L Sodium 135 L Potassium 3.0 L Chloride 110 H Carbon Dioxide 21 L BUN 16 Creatinine 0.44 L Estimated GFR > 60.0 BUN/Creatinine Ratio 36.4 H Glucose 168 H Calcium 7.7 L PFSH Medical History Cannabis abuse Chronic hepatitis Coronary artery disease involving [place] coronary artery of [place] heart without angina pectoris (~2006) Diabetes type 2, uncontrolled Diverticulosis of large intestine (03/31/12) Essential hypertension Generalized anxiety disorder Hepatitis C Kidney stones Mixed hyperlipidemia Paroxysmal A-fib Prostate cancer (~05/2019) Surgical History H/O heart artery stent (~2006) History of angioplasty (~12/2006) Hx of inguinal hernia surgery (~09/20/08) Hx of inguinal hernia surgery (~03/07/14) Status post laminectomy Social History marital status: unmarried,single number of children: 3 household members: none lives independently: Yes caregiver/support person: No housing: house pets and animals: No education level: high school occupational status: other 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 UTI with possible Staph epidermidis based on cultures from [facility]. Received the culture but not sensitivities I am not sure those were run given that this is likely a contaminant. Patient's symptoms are improving. Continue with current IV antibiotics. 2. Diabetes-adequate control blood sugars for now. No changes. 3. Hypokalemia-will replace intravenously as well as adding oral magnesium replacement. Plan to recheck magnesium and potassium tomorrow. 4. Severe protein calorie malnutrition-patient with significant weight loss since this illness all began. Continues to be quite malnourished with a BMI of only 18 now. Very limited appetite. Will try to encourage foods and have him seen by dietary as well. Does appear to be somewhat improved over the last 24 hours 5. Hypertension-blood pressure well controlled for now. Continue current medications 6. Anxiety/depression-patient seems to be in better spirits this morning. That is kind of his baseline I would say as of this morning. Again no need for medication or would patient be accepting of that at this time. Continue to try and improve his physical state and his level of pain etcetera and I think he will do better overall from mental health standpoint as well 7. Disposition-patient as above with weight loss and overall medical issues quite weak and debilitated. I anticipate he can likely go home but unsure as to exactly when that might be appropriate at this point. 8. Cardiac-no evidence of dysrhythmia. As noted in my addendum yesterday he did have an elevated troponin upon admission but that quickly returned to normal and I do not believe there was any myocardial infarction of any sort nor was there any demand ischemia etcetera. I am uncertain as to why he had elevation o f his troponin but do not believe his any active cardiac issue at this time. Note: Greater than 30 minutes was spent evaluating the patient on the floor, including examining the patient, discussing clinical course with clinical and nursing staff, reviewing clinical course in the computer, preparing documentation and writing orders for continued management of care, discussing status with family as appropriate, reviewing plans for the next 24 hours with both patient/family and nursing staff as appropriate. Quality VTE Deep Vein Thrombosis/Pulmonary Embolism Present on Admission: No
[2021-03-03] MEDS: INSULIN LISPRO 100 UNIT/ML 3ML VIAL SUBCUT ×4 (08:31→21:17)
[2021-03-03] MEDS: ASPIRIN 81 MG CHEW TAB PO (09:22)
[2021-03-03] MEDS: ENOXAPARIN 40 MG/0.4 ML SYRINGE SUBCUT (09:23)
[2021-03-03] MEDS: BUDESONIDE 3 MG CAP 6 MG PO (09:23)
[2021-03-03] MEDS: lisinopriL 20 MG TABLET PO ×2 (09:24→21:19)
[2021-03-03] MEDS: FUROSEMIDE 20 MG TABLET PO (09:24)
[2021-03-03] MEDS: MAGNESIUM OXIDE 400 MG TABLET PO ×2 (09:25→21:20)
[2021-03-03] MEDS: PANTOPRAZOLE DR 40 MG TABLET PO ×2 (09:25→21:19)
[2021-03-03] MEDS: MEGESTROL 20 MG TABLET PO ×2 (09:25→21:20)
[2021-03-03] MEDS: PHENAZOPYRIDINE 100 MG TABLET PO ×3 (09:26→21:22)
[2021-03-03] MEDS: POTASSIUM CHLORIDE 10 MEQ TAB 20 MEQ PO ×2 (09:26→21:19)
--- NOTE | 2021-03-03 09:40 | PT.IPTN ---
Current Diagnoses Urinary tract infection, site not specified (02/28/21) Physical Therapy Treatment Note M2 PT-IP Current Condition Start: 03/02/21 08:36 Freq: NEEDED Status: Active Protocol: Document 03/02/21 10:45 AW (Rec: 03/02/21 11:31 AW [id number]) Physical Therapy Current Condition Current Condition Evaluation Date 03/02/21 Treatment Diagnosis UTI, generalized weakness, impaired mobility and gait Onset Date 02/28/21 Precautions Other Precautions falls M3 PT-IP Subjective Start: 03/02/21 08:36 Freq: NEEDED Status: Active Protocol: Document 03/03/21 09:40 AW (Rec: 03/03/21 10:19 AW [id number]) Subjective Physical Therapy Visit Type Type Treatment Note Visit Start Time 09:23 Visit Stop Time 09:40 Total Visit Minutes 17 Physical Therapy Visit Comments Patient Comments Pt is willing to participate with PT Patient Goals Return to [facility] Therapy Pain Assessment Pain When Pain Assessed During Mobility Pain Present Pain Present Allowed to Sleep M4 PT-IP Mobility and Gait Start: 03/02/21 08:36 Freq: NEEDED Status: Active Protocol: Document 03/03/21 09:40 AW (Rec: 03/03/21 10:19 AW [id number]) PT-Bed Mobility Assessment Supine to Sit Supine to Sit Standby Assistance PT-Transfer Assessment Sit to and From Stand Sit to and from Stand Standby Assistance,Use of Upper Extremities Equipment Transfer Assistive Device Gait Belt,Front Wheeled Walker Orthotic/Prosthetic Devices or Brace: No Transfers Transfer Destination Chair Transfer Technique Stand Step Pivot Transfer Ability Level of Assist Standby Assistance Comments Mobility Comments Pt was in bed as PT arrived. He completed supine to sit SBA and took his medications. He stood and used the FWW to ambulate SBA in the halls 75 feet to the therapy stairs. After stair assessment, pt used SPC for ~30 feet CGA due to increased unsteadiness. Returned to FWW use with improved stability and gait pattern. Pt returned to the room and transferred to chair SBA as business systems manager arrived. Pt was left with call light and tray table in reach. Gait Assessment Gait Gait Assistance Required: Standby Assistance,Contact Guard Assist Distance (Feet) 150 Assistive Devices Assistive Device Gait Belt,Straight Cane,Front Wheeled Walker Orthotic/Prosthetic Devices or Brace: No Gait Deviations General Gait Pattern Decreased Stride Length, Decreased Feet Clearance, Flexed Trunk Factors Limiting Gait Function Factors Limiting Gait Function Decreased Activity Tolerance, Decreased Sensation,Decreased Strength,Limited Range of Motion,Poor Balance Comments Gait Comments See mobility comments for details. Stair Climbing Assessment Evaluation Level of Assist On Stairs Standby Assistance Devices Stair Climbing Assistive Devices Left Railing,Right Railing Technique/Endurance Stair Climbing Direction Ascend and Descend Stair Climbing Technique Step to Step Number of Steps Climbed 3 Stair Climbing Set # Repetitions (reps) 1 Comments Stair Climbing Comments Pt was safe but expressed increased fear on descent. PT-Balance Assessment Sitting Balance and Reactions Static Sitting Balance Ability Good Dynamic Sitting Balance Ability Good Standing Balance and Reactions Static Standing Balance Ability Good Dynamic Standing Balance Ability Fair Device Used FWW M5 PT-IP Objective Assessments Start: 03/02/21 08:36 Freq: NEEDED Status: Active Protocol: Document 03/02/21 10:45 AW (Rec: 03/02/21 11:31 AW [id number]) Orientation Orientation/Cognition Level of Alertness Alert Orientation Name,Month,Place,Situation Language Function Ability No Deficits Noted Safety Awareness Understands Safety Issues Memory Description No Deficits Noted Gross Range of Motion Upper Extremity ROM Assessment Within Functional Limits Lower Extremity ROM Assessment Bilaterally Impaired Impairments AROM and PROM knee extension lacking ~5 degrees Strength Lower Extremity Strength Assessment Bilaterally Impaired Hip 4-/5 Knee 4/5 extension; 4-/5 flexion Ankle 4-/5 Sensation Assessment Sensation Gross Sensation Right LE Impaired,Left LE Impaired Light Touch Impaired Proprioception (Position) Impaired Comments Sensation Comments Neuropathy affecting B LE up to knee joint line with distal most affected. Muscle Tone Comments Muscle Tone Comments Pt is cachectic and appears frail. M6 PT-IP Treatment Start: 03/02/21 08:36 Freq: NEEDED Status: Active Protocol: Document 03/03/21 09:40 AW (Rec: 03/03/21 10:19 AW [id number]) Physical Therapy Treatment Education Education Provided Safety M7 PT-IP Assessment and Plan Start: 03/02/21 08:36 Freq: NEEDED Status: Active Protocol: Document 03/03/21 09:40 AW (Rec: 03/03/21 10:19 AW [id number]) PT Summary Assessment and Plan Potential Rehabilitation Potential Fair Status of Condition at Evaluation Evolving Summary Impairments Pain,ROM,Strength,Balance, Sensation,Gait,Activity Tolerance Progress Towards Goals Progressing Toward Goals,Slow Progress due to Activity Tolerance Assessment Summary Pt continues to be limited by low activity tolerance but was able to ambulate the halls and complete a set of stairs SBA. He is steadier and has more confidence with FWW which he agrees to continue to use at this time. Goals Bed Mobility Goal Independent Transfer Goal Independent,Cane Gait Goal Independent,Cane Gait Distance 300 Other Goals - up/down 3 steps with unilateral rail IND Days to Meet Goals 5 Frequency of Treatment Frequency Of Treatment Once a Day Treatment Plan Physical Therapy Treatment Plan Bed Mobility Training,Transfer Training,Gait Training, Therapeutic Exercise,Balance Retraining,Discharge Planning Other Recommendations and Next Treatment gait training for endurance Focus Precautions Other Precautions falls Recommendations To Nursing Amount of Assist Needed Independent Discharge Recommendations PT Discharge Recommendations Home with Assistance,Home Health Transportation Needs at Discharge Private Vehicle
[2021-03-03] MEDS: METOPROLOL ER 50 MG TABLET 100 MG PO ×2 (09:47→21:19)
[2021-03-03] MEDS: SODIUM CHLORIDE 0.9% FLUSH 10 ML IV ×2 (10:52→21:20)
--- NOTE | 2021-03-03 14:55 | CM.DPC ---
DCP Continued: Per chart review physical therapy is recommending home with home health. FREIGHT FORWARDER Student met with patient at bedside he was alert and oriented. Patient reported he is familiar with home health and is agreeable to home health. Patient did not have a preference for a home health agency, chose agency from the calendar. He asked Lisandra Tejada be called as she assists in setting-up his appointments. Called and spoke with Lillian at [facility] , she confirmed they can accommodate a start date of or Tuesday this week. E-Faxed clinicals to [facility] [place] at included: Facesheet, therapy notes, H &P and progress note. Called and spoke with Lisandra, per patient?s request, to notify her [facility] will be calling to schedule a home health evaluation. FREIGHT FORWARDER completed F2F form and left in patients red folder for MD to sign if he is in agreement with home health. Provided patient with [facility] flyer and let him know Lisandra is aware and we are waiting on discharge date and MD approval. Home health recommended is RN, OT, PT and DIRECTOR OF DEVELOPMENT AND MARKETING. PLAN: Anticipate D/C home with [facility]. CM Team to continue to follow, left F2F in red folder for MD to sign if in agreement. If HH ordered will contact [facility] [place] prior to D/C and will E-Fax them order and F2F. JAYME Green MSW Student Discharge Planning/Care Management Advanced directive, confirm from FAMILY Start: 02/28/21 21:19 Freq: Q24H Status: Active Protocol: Document 02/28/21 21:19 MW (Rec: 03/01/21 01:22 MW [id number]) Advance Directive, confirm on record Time 20:35 Person contacted Peg Copy received No Document 03/01/21 21:19 MLA (Rec: 03/01/21 21:34 MLA [id number]) Advance Directive, confirm on record Time 20:35 Person contacted Peg Copy received No Time 21:19 Copy received No Document 03/02/21 21:00 AGW (Rec: 03/03/21 00:06 AGW [id number]) Advance Directive, confirm on record Time 20:35 Person contacted Peg Copy received No Time 21:19 Copy received No Advanced directive available on record No CM Discharge Assessment Start: 03/01/21 10:25 Freq: Status: Active Protocol: Document 03/01/21 10:26 (Rec: 03/01/21 10:40 [id number]) Discharge Planning Assessment Advance Directives? Yes Advance Directives on File No History Provided By Patient,Medical Record Prior Living Arrangements House Household Members none Type of transporation used prior to Relies on Others admit Independent with ADL's Yes Is patient alert and oriented? Yes Needs Assistance With Bathing,Meal Prep,Managing Medications,Home Chores / Shopping Caregiver for Another No DME Already Rented / Owned FWW / Walker,Cane Patient/Family Preference Home with Home Health Comment Will see how patient does here in the hospital, he has had home health before. Discharge Plan Home Transportation Arrangement Lauryn reports that Lisandra can pick him up at time of d/c . Additional Comment Have not yet initiated home health secondary to seeing if he will work with P.T. when more medically stable If patient plan is home with home health No : Has signed face to face form been completed? Whiteboard Updated in Patient Room with Yes name and ext. # of Tool/Die Maker Review Status In Process Next Review Type Continued Stay Review 03/01/21 10:28 CM Disch. Assessment Note by Radha Guajardo Addendum entered by Radha Guajardo R.N. 03/01/21 15:42: Called Johanna at [facility] [place], asking her to review. She stated she is not sure if [facility] is in the network of the insurance, they were when they were [facility]. She will run it through his insurance. Original Note: DCP: Case received, EMR reviewed and met with patient. Introduced self and role. Was able to obtain information regarding his baseline activity level, needs, and his current living situation. Was also able to speak to Dr. Bhat with additional information. Was able to complete DCP assessment with information currently available. Patient is a 65 year old male who admitted yesterday evening to the care of the hospitalist team. PCP: Dr. Vasques. Payer: confirmed: [employer]age. Patient came here to the hospital via ambulance secondary to weakness, nausea, dehydration. He had recently seen his urologist over at [facility] on 6-14, and was diagnosed with UTI, catheter induced. He has indwelling catheter. Patient also has history of prostate CA, and his most recent radiation treatment was on 02/06. Patient has history of hepatitis C with cirrhosis, anxiety, as well as diabetes type 2. He also has history of cannibus abuse and opioid dependency. Patient holds current diagnosis of pyelonephritis. Met with patient in his room. Dr. Bhat had just left the room. Patient was tearful. 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 He also has one son,Alexi, who lives in [facility]. He has two different caregivers that are private, Lisandra is his main caregiver, partner, who he has known for years. They come in 3-4 times a week, and he has assistance with showers, meals, and medication set up, which they do on Sundays. According to last note, he has had home health before, but patient denied having now. Patient also indicated that he does not drive, the home is set up with grab bars in the bathroom/showers. Dr. Bhat is anticipating that patient will be here for a couple of days. He does not yet have P.T. ordered. P: DCP to continue to follow closely. Will see if and how he progresses here in the hospital. Options are home health, or skilled, if he needs shelter antibiotics. He has [facility] Medicare Advantage, and prior auth. would be needed. Radha Guajardo RN/Pool Attendant Initialized on 03/01/21 10:28 - END OF NOTE Document 03/03/21 11:53 AL (Rec: 03/03/21 11:57 AL [id number]) Discharge Planning Assessment Assigned Tool/Die Maker JAYME Galvez Student Contact Information Lupe Tejada, friend Advance Directives? Yes Advance Directives on File No History Provided By Patient,Medical Record Has Patient been admitted in last 30 No days? Comment 01/10/21 & 01/12/21 were his last admission ER for abdominal pain Prior Living Arrangements House Household Members none Type of transporation used prior to Relies on Others admit Independent with ADL's No Is patient alert and oriented? Yes Needs Assistance With Bathing,Meal Prep,Managing Medications,Home Chores / Shopping Comment He has caregiver three times a week and assistance from Lupe Tejada who helps schedule his appointments Caregiver for Another No DME Already Rented / Owned FWW / Walker,Cane Patient/Family Preference Home with Home Health Comment Intiated Home Health Barriers to Discharge No Discharge Plan Home Community Services Physical Therapy,Occupational Therapy,Home Health Aid,Home Health Nurse Transportation Arrangement Lauryn reports that Lisandra can pick him up at time of d/c . Referrals Initiated Home Health If patient plan is home with home health No : Has signed face to face form been completed? Whiteboard Updated in Patient Room with Yes name and ext. # of Tool/Die Maker Review Status In Process Next Review Type Continued Stay Review
[2021-03-03] MEDS: VANCOMYCIN TROUGH 1 REQUEST MISC (15:03)
--- NOTE | 2021-03-03 15:11 | PC.NURSE ---
Pt resting at intervals. Med @ 1200 for discomfort w/good relief. IVF's infusing as per orders,, Having to slow rate of KCL so pt can tolerate. Had Bm this afternoon. Call light w/in chantell, bed alarm on for pt safety. Continue w/plan of care.
[2021-03-03 15:31] LABS: Vancomycin Trough 21.2 ug/mL (10-20)
[2021-03-03 15:41] LABS: Vancomycin Trough 49.7 ug/mL (10-20)
[2021-03-03] MEDS: POTASSIUM CHLORIDE IN WATER 10 MEQ/100 ML PIGGYBACK 50 MEQ IV ×2 (17:35→20:43)
[2021-03-03] MEDS: TAMSULOSIN 0.4 MG CAPSULE PO (17:49)
[2021-03-03] MEDS: ATORVASTATIN 20 MG TABLET PO (21:19)
[2021-03-03] MEDS: OXYCODONE IR 10 MG TABLET PO (21:22)
[2021-03-04] MEDS: PIPERACILLIN/TAZO 3.375 GM in SODIUM CHLORIDE 0.9% 100 ML 25 ML IV ×2 (02:17→09:04)
[2021-03-04] MEDS: VANCOMYCIN 1,000 MG/200 ML PIGGYBACK 200 MG IV ×2 (02:18→10:34)
[2021-03-04 05:13] VITALS: BP 155/94; PULSE 73; RESP 12; TEMP 36.2; O2SAT 98
[2021-03-04 08:43] VITALS: BP 152/107; PULSE 71; RESP 14; TEMP 36.3; O2SAT 98
[2021-03-04] MEDS: ENOXAPARIN 40 MG/0.4 ML SYRINGE SUBCUT (09:04)
[2021-03-04] MEDS: MAGNESIUM OXIDE 400 MG TABLET PO ×2 (09:05→21:27)
[2021-03-04] MEDS: lisinopriL 20 MG TABLET PO ×2 (09:05→21:27)
[2021-03-04] MEDS: PHENAZOPYRIDINE 100 MG TABLET PO ×3 (09:05→21:27)
[2021-03-04] MEDS: OXYCODONE IR 5 MG TABLET 15 MG PO ×4 (09:05→21:39)
[2021-03-04] MEDS: FUROSEMIDE 20 MG TABLET PO (09:05)
[2021-03-04] MEDS: ASPIRIN 81 MG CHEW TAB PO (09:05)
[2021-03-04] MEDS: POTASSIUM CHLORIDE 10 MEQ TAB 20 MEQ PO ×3 (09:06→21:27)
[2021-03-04] MEDS: METOPROLOL ER 50 MG TABLET 100 MG PO ×2 (09:06→21:27)
[2021-03-04] MEDS: PANTOPRAZOLE DR 40 MG TABLET PO ×2 (09:06→21:27)
[2021-03-04] MEDS: BUDESONIDE 3 MG CAP 6 MG PO (09:12)
[2021-03-04] MEDS: MEGESTROL 20 MG TABLET PO (09:12)
[2021-03-04] MEDS: SODIUM CHLORIDE 0.9% FLUSH 10 ML IV ×2 (09:19→21:28)
--- NOTE | 2021-03-04 09:39 | PM.PN.1 ---
Subjective Subjective Date Patient Seen: 03/04/21 Time Patient Seen: 09:39 Interval history: Patient says today is not such a good day. Feels weak. I watched him get up with his walker and go to the restroom he had really very minimal difficulty. Moved very slowly or a 65-year-old but was moving just fine without any obvious abnormalities Says he was really not able to get much of his breakfast down just did not have any appetite Exam Vital Signs (past 8 hours): - 03/04/21 05:13 03/04/21 08:43 Temperature 97.2 F L 97.4 F L Pulse Rate 73 71 Respiratory Rate 12 14 Blood Pressure 155/94 H 152/107 H Pulse Oximetry 98 98 Oxygen Delivery Method Room Air Oxygen Flow Rate 0 Objective Labs Result Diagrams: 03/03/21 05:50 03/03/21 05:50 Labs: Laboratory Results - last 24 hr 03/03/21 03/03/21 09:44 13:52 Vancomycin Trough 49.7 H* 21.2 H* PFSH Medical History Cannabis abuse Chronic hepatitis Coronary artery disease involving [place] coronary artery of [place] heart without angina pectoris (~2006) Diabetes type 2, uncontrolled Diverticulosis of large intestine (03/31/12) Essential hypertension Generalized anxiety disorder Hepatitis C Kidney stones Mixed hyperlipidemia Paroxysmal A-fib Prostate cancer (~05/2019) Surgical History H/O heart artery stent (~2006) History of angioplasty (~12/2006) Hx of inguinal hernia surgery (~09/20/08) Hx of inguinal hernia surgery (~03/07/14) Status post laminectomy Social History marital status: unmarried,single number of children: 3 household members: none lives independently: Yes caregiver/support person: No housing: house pets and animals: No education level: high school occupational status: other 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/yazidism: None leisure activities: music, fishing and other Smoking Status: Never smoker Tobacco: How many years used: 56 Smokeless tobacco user: other quit status: has quit before second hand exposure: Yes (On farmland/Boat.) alcohol intake: former substance use type: does not use and marijuana eating out: rarely or never Type(s) of exercise: normal ROM and activity and additional Assessment & Plan Assessment & Plan narrative: 1. UTI-patient does seem to be improving from an infection standpoint. I think we can probably safely switched to oral antibiotics after this morning's doses. 2. Diabetes-adequate control 3. Electrolytes-lab draw put on hold to correlate with vancomycin levels. Do not have results as yet therefore. Will replace as necessary his potassium and magnesium. 4. Malnutrition-continue to encourage increased oral intake etcetera 5. Hypertension-numbers have been up and down as usual for him. No change in medication at this time 6. Anxiety/depression-patient again seems to cycle up and down. Somewhat more on the depressed side. I think he probably would do better going home sooner rather than later 7. Disposition-patient likely ready for discharge in the next 24 hours to home with probably home health services including PT OT and visiting nurse. Note: Greater than 30 minutes was spent evaluating the patient on the floor, including examining the patient, discussing clinical course with clinical and nursing staff, reviewing clinical course in the computer, preparing documentation and writing orders for continued management of care, discussing status with family as appropriate, reviewing plans for the next 24 hours with both patient/family and nursing staff as appropriate. Quality VTE Deep Vein Thrombosis/Pulmonary Embolism Present on Admission: No
[2021-03-04 10:02] LABS: Add Manual Diff / Slide Review NO; Basophils Absolute Auto 100 /uL (0-100); Basophils Percent Auto 1.1 % (0-2); Eosinophils Absolute Auto 0 /uL (0-450); Eosinophils Percent Auto 0.6 % (2-4); Hematocrit 35.3 % (41-53); Hemoglobin 12.6 g/dL (13.5-17.5); Lymphocytes Absolute Auto 1300 /uL (1100-4500); Lymphocytes Percent Auto 25.4 % (25-40); Mean Corpuscular HGB Conc 35.6 % (30-36); Mean Corpuscular Hemoglobin 34.8 PG (26-34); Mean Corpuscular Volume 97.8 fL (80-100); Monocytes Absolute Auto 400 /uL (0-900); Monocytes Percent Auto 8.4 % (3-14); Neutrophils Absolute Auto 3400 /uL (1500-7000); Neutrophils Percent Auto 64.5 % (50-75); Platelet Count 103 X10^3/uL (150-400); Red Blood Cell Count 3.61 X10^6/uL (4.5-5.9); Red Cell Distribution Width 13.2 % (11.6-14.8); White Blood Cell Count 5.2 X10^3/uL (4.5-11.0)
[2021-03-04 10:17] LABS: BUN Creatinine Ratio 27.5 (6-22); Blood Urea Nitrogen 14 mg/dL (9-20); Calcium 8.9 mg/dL (8.4-10.2); Carbon Dioxide 21 mmol/L (22-32); Chloride 107 mmol/L (98-107); Estimated Glomerular Filt Rate > 60.0 mL/min (>60); Glucose 142 mg/dL (80-110); HEMOLYSIS < 15 (0-50); Magnesium 1.4 mg/dL (1.6-2.3); Sodium 135 mmol/L (137-145)
[2021-03-04 10:22] LABS: Vancomycin Trough 18.9 ug/mL (10-20)
--- NOTE | 2021-03-04 11:10 | PT.IPTN ---
Current Diagnoses Urinary tract infection, site not specified (02/28/21) Physical Therapy Treatment Note M2 PT-IP Current Condition Start: 03/02/21 08:36 Freq: NEEDED Status: Active Protocol: Document 03/02/21 10:45 AW (Rec: 03/02/21 11:31 AW [id number]) Physical Therapy Current Condition Current Condition Evaluation Date 03/02/21 Treatment Diagnosis UTI, generalized weakness, impaired mobility and gait Onset Date 02/28/21 Precautions Other Precautions falls M3 PT-IP Subjective Start: 03/02/21 08:36 Freq: NEEDED Status: Active Protocol: Document 03/04/21 11:10 AW (Rec: 03/04/21 12:18 AW [id number]) Subjective Physical Therapy Visit Type Type Treatment Note Visit Start Time 10:46 Visit Stop Time 10:06 Total Visit Minutes 20 Physical Therapy Visit Comments Patient Comments I feel weaker today. Therapy Pain Assessment Pain When Pain Assessed During Mobility Pain Present Pain Present Denied Pain M4 PT-IP Mobility and Gait Start: 03/02/21 08:36 Freq: NEEDED Status: Active Protocol: Document 03/04/21 11:10 AW (Rec: 03/04/21 12:18 AW [id number]) PT-Bed Mobility Assessment Supine to Sit Supine to Sit Standby Assistance Sit to Supine Sit to Supine Standby Assistance Scooting Scooting to Edge of Bed Standby Assistance PT-Transfer Assessment Sit to and From Stand Sit to and from Stand Standby Assistance,Use of Upper Extremities Comments Mobility Comments Pt was in bed as PT arrived. He stated he felt sicker and weaker than yesteday. He sat up on EOB SBA and participated in pre-standing activities, weight shifting anteriorly multiple reps. He practiced sit to stand x 10 with rest between reps - all SBA. In standing, he was able to perform marching with high knees 20 reps at a time. After this activity, pt was fatigued and requested return to bed. Gait Assessment Comments Gait Comments Did not ambulate today. PT-Balance Assessment Sitting Balance and Reactions Static Sitting Balance Ability Good Dynamic Sitting Balance Ability Good Standing Balance and Reactions Static Standing Balance Ability Good Dynamic Standing Balance Ability Fair Device Used FWW M5 PT-IP Objective Assessments Start: 03/02/21 08:36 Freq: NEEDED Status: Active Protocol: Document 03/02/21 10:45 AW (Rec: 03/02/21 11:31 AW [id number]) Orientation Orientation/Cognition Level of Alertness Alert Orientation Name,Month,Place,Situation Language Function Ability No Deficits Noted Safety Awareness Understands Safety Issues Memory Description No Deficits Noted Gross Range of Motion Upper Extremity ROM Assessment Within Functional Limits Lower Extremity ROM Assessment Bilaterally Impaired Impairments AROM and PROM knee extension lacking ~5 degrees Strength Lower Extremity Strength Assessment Bilaterally Impaired Hip 4-/5 Knee 4/5 extension; 4-/5 flexion Ankle 4-/5 Sensation Assessment Sensation Gross Sensation Right LE Impaired,Left LE Impaired Light Touch Impaired Proprioception (Position) Impaired Comments Sensation Comments Neuropathy affecting B LE up to knee joint line with distal most affected. Muscle Tone Comments Muscle Tone Comments Pt is cachectic and appears frail. M6 PT-IP Treatment Start: 03/02/21 08:36 Freq: NEEDED Status: Active Protocol: Document 03/04/21 11:10 AW (Rec: 03/04/21 12:18 AW [id number]) Physical Therapy Treatment Education Education Provided Safety Other Treatments Other Treatment Performed Performed sit to stands, high- knee marching, and heel lifts. M7 PT-IP Assessment and Plan Start: 03/02/21 08:36 Freq: NEEDED Status: Active Protocol: Document 03/04/21 11:10 AW (Rec: 03/04/21 12:18 AW [id number]) PT Summary Assessment and Plan Potential Rehabilitation Potential Fair Status of Condition at Evaluation Evolving Summary Impairments Pain,ROM,Strength,Balance, Sensation,Gait,Activity Tolerance Progress Towards Goals Progressing Toward Goals,Slow Progress due to Activity Tolerance Assessment Summary Pt limited by feeling weaker and sicker today. He was able to complete pre-standing activities, sit to stands x 10 , and high-knee marching but felt to fatigued to do any more. Pt states his friends have agreed to rotate shifts at his house when he discharges so that he will not be alone. Pt would benefit from services to improve strength and mobility independence. Goals Bed Mobility Goal Independent Transfer Goal Independent,Cane Gait Goal Independent,Cane Gait Distance 300 Other Goals - up/down 3 steps with unilateral rail IND Days to Meet Goals 5 Frequency of Treatment Frequency Of Treatment Once a Day Treatment Plan Physical Therapy Treatment Plan Bed Mobility Training,Transfer Training,Gait Training, Therapeutic Exercise,Balance Retraining,Discharge Planning Other Recommendations and Next Treatment gait training for endurance; Focus functional ther ex Precautions Other Precautions falls Recommendations To Nursing Amount of Assist Needed Standby Assistance Discharge Recommendations PT Discharge Recommendations Home with Assistance,Home with 24/7 Assist Available,Home Health Transportation Needs at Discharge Private Vehicle
--- NOTE | 2021-03-04 11:19 | CM.DPC ---
DCP continued: Received order and signed F2F from provider this AM. DIGITAL STRATEGY DIRECTOR spoke with [facility] and it is unclear on whether or not [facility] received efax yesterday. Unable to use [facility] phone system therefore, all clinical information including f2f and order faxed to [facility] (confirmation of fax received). [facility] will need to be notified when patient discharges. Anticipate either later today or possibly tomorrow. PT continues to recommend home with HH. PT/Em reports patient has caregivers in the residence as needed. Plan: Home with support and home health through [facility]. JAYME Green
[2021-03-04 11:42] VITALS: BP 155/93; PULSE 68; RESP 14; TEMP 36.6; O2SAT 97
[2021-03-04] MEDS: MAGNESIUM SULFATE 2 GM/50 ML PIGGYBACK IV (13:15)
[2021-03-04] MEDS: INSULIN LISPRO 100 UNIT/ML 3ML VIAL SUBCUT ×3 (13:22→21:35)
[2021-03-04] MEDS: CLINDAMYCIN 150 MG CAPSULE 300 MG PO ×2 (14:55→21:33)
[2021-03-04 15:30] VITALS: BP 148/92; PULSE 67; RESP 16; TEMP 36.6; O2SAT 98
[2021-03-04] MEDS: TAMSULOSIN 0.4 MG CAPSULE PO (18:20)
[2021-03-04 19:25] VITALS: BP 152/110; PULSE 76; RESP 16; TEMP 36.6; O2SAT 98
[2021-03-04] MEDS: ATORVASTATIN 20 MG TABLET PO (21:27)
[2021-03-05] VITALS: BP 154/89; PULSE 69; RESP 16; TEMP 36.3; O2SAT 98
[2021-03-05] MEDS: OXYCODONE IR 5 MG TABLET 15 MG PO ×3 (02:57→13:42)
[2021-03-05 03:49] VITALS: BP 126/96; PULSE 69; RESP 16; TEMP 36.6; O2SAT 98
[2021-03-05] MEDS: CLINDAMYCIN 150 MG CAPSULE 300 MG PO ×2 (05:04→13:42)
[2021-03-05 07:45] VITALS: BP 132/88; PULSE 69; RESP 15; TEMP 36.7; O2SAT 98
[2021-03-05 07:55] LABS: BUN Creatinine Ratio 52.5 (6-22); Blood Urea Nitrogen 21 mg/dL (9-20); Calcium 8.6 mg/dL (8.4-10.2); Carbon Dioxide 22 mmol/L (22-32); Chloride 110 mmol/L (98-107); Estimated Glomerular Filt Rate > 60.0 mL/min (>60); Glucose 136 mg/dL (80-110); HEMOLYSIS < 15 (0-50); Magnesium 1.9 mg/dL (1.6-2.3); Potassium 3.3 mmol/L (3.4-5.1); Sodium 135 mmol/L (137-145)
--- NOTE | 2021-03-05 08:21 | P.DS_ITS ---
History of Present Illness History of Present Illness Date Patient Seen: 03/05/21 Time Patient Seen: 08:24 Chief complaint: Dehydration x2 day, UTI Narrative: Pt is a 65yo man with prostate cancer undergoing radiation therapy, chronic Hepatitis C, HTN, DM type 2, paroxysmal SVT s/p recent ablation, anxiety, and CAD who presented with fatigue, fevers, nausea and vomiting, and severe dysuria. The pt reports that around 1 month ago he had a urinary catheter placed by his Urologist. He was unable to recall exactly why today, but does report he was having some discomfort with urination at the time. He was started on Pyridium then, which he has continued to take since. 3 days ago he was started on Nitrofurantoin by his Urologist for a UTI. He had taken 2 days of the medication, but was then not able to keep it down due to persistent nausea. The day of presentation to the ED he developed significant fever and chills as well. He has been having very severe pain with urination. He reports mild intermittent suprapubic abdominal pain, but nothing all that severe. He has not has a BM in 3-4 days, and states this is causing him some discomfort as well, especially paired with his chronic low back pain issues. The pt does chronically take oxycodone for his back pain, and has been unable to keep it down for the last several doses. He has been feeling excessively weak. His caregivers have been very concerned about him. {from Dr. 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 Hypokalemia 2. Hypomagnesemia 3. Urinary tract infection due to indwelling urinary catheterization 4. Elevated troponin without diagnosis of myocardial infarction or myocardial ischemia 5. Hypertension 6. Diabetes type 2 7. Prostate cancer status post treatment 8. Paroxysmal atrial fibrillation 9. Nausea vomiting 10. Mixed hyperlipidemia 11. Coronary artery disease, stable this hospitalization 12. Generalized anxiety disorder 13. Depression 14. Severe protein calorie malnutrition due to poor oral intake Hospital Course: Patient presented to the ER as above. He had a UTI as diagnosed by Urology as an outpatient with urine culture growing Staph epidermidis (therefore possible contaminant rather than true pathologic infection). Had been taking oral nitrofurantoin as per Urology. He had increased weakness increased nausea vomiting unable to keep his medications down. He was increasingly unable to care for himself even with assistance caregivers and came to the hospital He was started on appropriate IV antibiotics for possible methicillin-resistant staph infection of the urine. He did seem to improve over several days. Subsequently he was switched to oral clindamycin for coverage of methicillin- resistant Staph species, with the thought that any gram-negative organisms were probably already treated by the nitrofurantoin and or the broad-spectrum parental antibiotics. He continued to do well without further evidence of urinary tract infection. His urine cultures were negative during this hospitalization here. He had significant urinary tract pain with urination but that was resolving almost absent by the time of discharge. This is felt to be further evidence of appropriate treatment of his infection Patient was hypokalemic and hypomagnesemic during this hospitalization. These b oth replaced parenterally as well as orally with significant improvement in both in felt to be trending upward and much improved at time of discharge. Patient will continue on increased oral supplementation of both of these electrolytes Patient elevated troponin upon admission this rapidly normalized. Not felt to have any actual ischemia nor myocardial infarction of any type. Uncertain as to etiology of his elevated troponin but not felt to be an acute cardiac issue Patient's diabetes was adequately controlled during this hospitalization in part because of very poor oral intake. He was seen by dietary and hopefully as he improves with his medical issues and is further way from treatment for his prostate cancer he will be more able to increase his oral nutrition and begin to improve. He will be followed closely as an outpatient. Patient's other medical problems were relatively stable during this hospitalization. His biggest issues were his electrolyte imbalances as his gene ralized weakness as well as his poor appetite and poor oral intake. These are all improved at time of discharge although certainly not back to his baseline. Exam Vital Signs (past 8 hours): - 03/05/21 03:49 Temperature 97.9 F Pulse Rate 69 Respiratory Rate 16 Blood Pressure 126/96 H Pulse Oximetry 98 Oxygen Delivery Method Room Air Oxygen Flow Rate 0 Objective Labs Result Diagrams: 03/04/21 09:55 03/05/21 07:06 Labs: Laboratory Results - last 24 hr 03/04/21 03/04/21 03/04/21 09:55 09:55 09:55 WBC 5.2 RBC 3.61 L Hgb 12.6 L Hct 35.3 L MCV 97.8 MCH 34.8 H MCHC 35.6 RDW 13.2 Plt Count 103 L Neut % (Auto) 64.5 Lymph % (Auto) 25.4 [place] % (Auto) 8.4 Eos % (Auto) 0.6 L Baso % (Auto) 1.1 Neut # (Auto) 3400 Lymph # (Auto) 1300 [place] # (Auto) 400 Eos # (Auto) 0 Baso # (Auto) 100 Sodium 135 L Potassium 3.0 L Chloride 107 Carbon Dioxide 21 L BUN 14 Creatinine 0.51 L Estimated GFR > 60.0 BUN/Creatinine Ratio 27.5 H Glucose 142 H Calcium 8.9 Magnesium 1.4 L Vancomycin Trough 18.9 03/05/21 07:06 WBC RBC Hgb Hct MCV MCH MCHC RDW Plt Count Neut % (Auto) Lymph % (Auto) [place] % (Auto) Eos % (Auto) Baso % (Auto) Neut # (Auto) Lymph # (Auto) [place] # (Auto) Eos # (Auto) Baso # (Auto) Sodium 135 L Potassium 3.3 L Chloride 110 H Carbon Dioxide 22 BUN 21 H Creatinine 0.40 L Estimated GFR > 60.0 BUN/Creatinine Ratio 52.5 H Glucose 136 H Calcium 8.6 Magnesium 1.9 Vancomycin Trough [facility] Medical History Cannabis abuse Chronic hepatitis Coronary artery disease involving [place] coronary artery of [place] heart without angina pectoris (~2006) Diabetes type 2, uncontrolled Diverticulosis of large intestine (03/31/12) Essential hypertension Generalized anxiety disorder Hepatitis C Kidney stones Mixed hyperlipidemia Paroxysmal A-fib Prostate cancer (~05/2019) Surgical History H/O heart artery stent (~2006) History of angioplasty (~12/2006) Hx of inguinal hernia surgery (~09/20/08) Hx of inguinal hernia surgery (~03/07/14) Status post laminectomy Social History marital status: unmarried,single number of children: 3 household members: none lives independently: Yes caregiver/support person: No housing: house pets and animals: No education level: high school occupational status: other 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, fishing and other Smoking Status: Never smoker Tobacco: How many years used: 56 Smokeless tobacco user: other quit status: has quit before second hand exposure: Yes (On farmland/Boat.) alcohol intake: former substance use type: does not use and marijuana eating out: rarely or never Type(s) of exercise: normal ROM and activity and additional Discharge Assessment & Plan Assessment and Plan Plan of Treatment: Patient will continue on oral clindamycin for 1 week Patient will continue on increased doses of oral potassium and magnesium supplementation Patient will continue his other usual medications including his oxycodone. I did discontinues budesonide as there is no active evidence of any sort inflammatory bowel disease on multiple colonic evaluations and I am not of the o nawaf this is a helpful medication Patient will keep his outpatient appointment to see Dr. Vasques in the clinic on March 13, 2021 Discharge Plan Discharge Plan Patient Disposition: Home Health Service Transfer to: [facility] Health Provider Discharge Comment: PT/OT, RN services Discharge orders & Medications Prescriptions: New clindamycin HCl 300 mg capsule 300 mg PO TID 7 Days Qty: 21 RF: 0 potassium chloride 20 mEq tablet,ER particles/crystals 40 meq PO BID Qty: 360 RF: 3 Continued ondansetron 4 mg tablet,disintegrating 4 mg PO Q6H PRN (Reason: Nausea) Qty: 30 RF: 3 metformin 500 mg tablet 500 mg PO BID Qty: 180 RF: 1 oxycodone 5 mg tablet 10 mg PO Q4H PRN (Reason: pain) Qty: 360 RF: 0 simvastatin 40 mg tablet 40 mg PO QPM Qty: 90 RF: 1 omeprazole 40 mg capsule,delayed release(DR/EC) 40 mg PO BID Qty: 180 RF: 1 metoprolol succinate 100 mg tablet extended release 24 hr 100 mg PO BID RF: 0 lisinopril 20 mg tablet 10 mg PO QAM RF: 0 cyclobenzaprine 5 mg tablet 5 mg PO TID PRN (Reason: Spasms) Qty: 60 RF: 0 furosemide 20 mg tablet 20 mg PO QAM Qty: 90 RF: 3 aspirin 81 mg Tablet,Chewable 81 mg PO QAM RF: 0 polyethylene glycol 3350 [Miralax] 17 gram Powder In Packet 17 g PO QAM RF: 0 phenazopyridine 100 mg Tablet 100 mg PO TID RF: 0 tamsulosin 0.4 mg capsule 0.4 mg PO QPM RF: 0 promethazine 25 mg suppository 25 mg ND Q4-6H PRN (Reason: nausea and vomiting) Qty: 12 RF: 0 Changed magnesium oxide 400 mg (241.3 mg magnesium) tablet 400 mg PO BID Qty: 60 RF: 3 Discontinued budesonide 3 mg capsule,delayed,extend.release 6 mg PO QAM Qty: 180 RF: 3 potassium chloride 10 mEq tablet extended release 10 meq PO BID Qty: 180 RF: 3 nitrofurantoin monohyd/m-cryst 100 mg Capsule 100 mg PO BID RF: 0 Follow up/Referrals: Khang Vasques MD [Primary Care Provider] - (keep 03/13/[address] Vasques) Diet/Activity/Treatments Diet: Diet as Tolerated and Carb-consistent/Diabetic Discharge Data Primary Care Provider: Khang Vasques Quality VTE Deep Vein Thrombosis/Pulmonary Embolism Present on Admission: No
[2021-03-05] MEDS: PANTOPRAZOLE DR 40 MG TABLET PO (09:41)
[2021-03-05] MEDS: ENOXAPARIN 40 MG/0.4 ML SYRINGE SUBCUT (09:41)
[2021-03-05] MEDS: POTASSIUM CHLORIDE 10 MEQ TAB 20 MEQ PO ×2 (09:41→13:42)
--- NOTE | 2021-03-05 09:41 | PT.IPTN ---
Current Diagnoses Urinary tract infection, site not specified (02/28/21) Physical Therapy Treatment Note M2 PT-IP Current Condition Start: 03/02/21 08:36 Freq: NEEDED Status: Active Protocol: Document 03/02/21 10:45 AW (Rec: 03/02/21 11:31 AW [id number]) Physical Therapy Current Condition Current Condition Evaluation Date 03/02/21 Treatment Diagnosis UTI, generalized weakness, impaired mobility and gait Onset Date 02/28/21 Precautions Other Precautions falls M3 PT-IP Subjective Start: 03/02/21 08:36 Freq: NEEDED Status: Active Protocol: Document 03/05/21 09:19 MB (Rec: 03/05/21 09:40 MB [id number]) Subjective Physical Therapy Visit Type Type Treatment Note Visit Start Time 09:19 Visit Stop Time 09:30 Total Visit Minutes 11 Physical Therapy Visit Comments Patient Comments Better when PT asks pt how he is feeling today Therapy Pain Assessment Pain When Pain Assessed During Mobility Pain Present Pain Present Pain Reported Location back Intensity 5 Scale Used Numeric (0 - 10) Pain Management Techniques Distraction,Modification of Treatment M4 PT-IP Mobility and Gait Start: 03/02/21 08:36 Freq: NEEDED Status: Active Protocol: Document 03/05/21 09:19 MB (Rec: 03/05/21 09:40 MB [id number]) PT-Transfer Assessment Sit to and From Stand Sit to and from Stand Independent,Use of Upper Extremities Equipment Transfer Assistive Device Gait Belt,Front Wheeled Walker Orthotic/Prosthetic Devices or Brace: No Transfers Transfer Destination Chair Transfer Technique Stand Step Pivot Transfer Ability Level of Assist Independent Comments Mobility Comments Pt up in chair and finishing breakfast upon arrival. He is agreeable to PT. Pt is able to transfer with I, using UE support to stand up to walker and he is I for stand to sit back to recliner. He gait trains around nsg unit with RW and superv to I assist, with two rest breaks (every 100'). He is waiting for his caregiver to come and get him and will have 24 hour assist per his report at d/c. He is agreeable to HHPT and PT does note note about this in the EMR. Gait Assessment Gait Gait Assistance Required: Independent,Standby Assistance Distance (Feet) 100 Assistive Devices Assistive Device Gait Belt,Front Wheeled Walker Orthotic/Prosthetic Devices or Brace: No Gait Deviations General Gait Pattern Antalgic,Decreased Stride Length,Flexed Trunk Factors Limiting Gait Function Factors Limiting Gait Function Decreased Activity Tolerance, Decreased Sensation,Decreased Strength,Pain,Poor Balance Comments Gait Comments 100'x3 with superv to I with RW. He will benefit from gait training with SPC and balance testing in future treatments if he remains in hospital. His gait pattern is slow and antalgic. Stair Climbing Assessment Comments Stair Climbing Comments Pt reports ramp to enter and so no stair training today PT-Balance Assessment Sitting Balance and Reactions Static Sitting Balance Ability Good Dynamic Sitting Balance Ability Good Standing Balance and Reactions Static Standing Balance Ability Good Dynamic Standing Balance Ability Fair Device Used RW M5 PT-IP Objective Assessments Start: 03/02/21 08:36 Freq: NEEDED Status: Active Protocol: Document 03/02/21 10:45 AW (Rec: 03/02/21 11:31 AW [id number]) Orientation Orientation/Cognition Level of Alertness Alert Orientation Name,Month,Place,Situation Language Function Ability No Deficits Noted Safety Awareness Understands Safety Issues Memory Description No Deficits Noted Gross Range of Motion Upper Extremity ROM Assessment Within Functional Limits Lower Extremity ROM Assessment Bilaterally Impaired Impairments AROM and PROM knee extension lacking ~5 degrees Strength Lower Extremity Strength Assessment Bilaterally Impaired Hip 4-/5 Knee 4/5 extension; 4-/5 flexion Ankle 4-/5 Sensation Assessment Sensation Gross Sensation Right LE Impaired,Left LE Impaired Light Touch Impaired Proprioception (Position) Impaired Comments Sensation Comments Neuropathy affecting B LE up to knee joint line with distal most affected. Muscle Tone Comments Muscle Tone Comments Pt is cachectic and appears frail. M6 PT-IP Treatment Start: 03/02/21 08:36 Freq: NEEDED Status: Active Protocol: Document 03/04/21 11:10 AW (Rec: 03/04/21 12:18 AW [id number]) Physical Therapy Treatment Education Education Provided Safety Other Treatments Other Treatment Performed Performed sit to stands, high- knee marching, and heel lifts. M7 PT-IP Assessment and Plan Start: 03/02/21 08:36 Freq: NEEDED Status: Active Protocol: Document 03/05/21 09:19 MB (Rec: 03/05/21 09:40 MB [id number]) PT Summary Assessment and Plan Potential Rehabilitation Potential Fair Status of Condition at Evaluation Evolving Summary Impairments Pain,Strength,Balance, Sensation,Bed Mobility,Gait, Activity Tolerance Assessment Summary Pt is feeling better today. He is cachetic in appearance and has back pain and reports history of neuropathy. He will benefit from PT for balance and progressive gait training next treatment if he remains in hospital, HHPT to OPPT progression at d/c. Goals Bed Mobility Goal Independent Transfer Goal Independent,Cane Gait Goal Independent,Cane Gait Distance 300 Other Goals - up/down 3 steps with unilateral rail IND Days to Meet Goals 5 Frequency of Treatment Frequency Of Treatment Once a Day Treatment Plan Physical Therapy Treatment Plan Bed Mobility Training,Transfer Training,Gait Training, Therapeutic Exercise,Balance Retraining,Discharge Planning Other Recommendations and Next Treatment Gait with cane and balance Focus assessment/training Precautions Other Precautions Fall risk Recommendations To Nursing Amount of Assist Needed Standby Assistance Discharge Recommendations PT Discharge Recommendations Home with 04/04 Assist Available Other Discharge Recommendations HHPT at d/c Transportation Needs at Discharge Private Vehicle
[2021-03-05] MEDS: lisinopriL 20 MG TABLET PO (09:42)
[2021-03-05] MEDS: FUROSEMIDE 20 MG TABLET PO (09:42)
[2021-03-05] MEDS: METOPROLOL ER 50 MG TABLET 100 MG PO (09:42)
[2021-03-05] MEDS: MAGNESIUM OXIDE 400 MG TABLET PO (09:42)
[2021-03-05] MEDS: ASPIRIN 81 MG CHEW TAB PO (09:42)
[2021-03-05] MEDS: PHENAZOPYRIDINE 100 MG TABLET PO ×2 (09:42→13:42)
[2021-03-05] MEDS: BUDESONIDE 3 MG CAP 6 MG PO (09:44)
[2021-03-05] MEDS: MEGESTROL 20 MG TABLET PO (09:44)
[2021-03-05] MEDS: SODIUM CHLORIDE 0.9% FLUSH 10 ML IV (09:44)
[2021-03-05] MEDS: INSULIN LISPRO 100 UNIT/ML 3ML VIAL SUBCUT (09:53)
--- NOTE | 2021-03-05 15:43 | PC.NURSE ---
Discharge: Pt feels ready to d/c home. Has help at home 04/04 for now. Md Vasques here this am and gave d/c instructions. environmental protection inspector here at the time of discharge to listen to instructions as well. Home health packet given. Reviewed d/c packet, discussed diet regarding low potassium and some food choices. [facility] RD also available for consult if needed and it can be arranged on an out pt basis even later. Pt is thinking about this. Reviewed info for UTI. Rx has been esent. Questions answered. Pt d/c home via auto with manager urgent care.
== END 2021-03-05 14:40 | disposition home health service (06) | DRG 698 ==
LOC: ED 19:30 → AC 21:14
PROVIDERS: Admitting Provider Family Medicine; Emergency Provider Emergency Medicine; PCP Internal Medicine; Referring Provider Emergency Medicine; Visit Provider Internal Medicine
DX: T83.511A Infection and inflammatory reaction due to indwelling urethral catheter, initial encounter (principal); E43 Unspecified severe protein-calorie malnutrition; Z68.1 Body mass index [BMI] 19.9 or less, adult; N39.0 Urinary tract infection, site not specified; B95.7 Other staphylococcus as the cause of diseases classified elsewhere; G89.29 Other chronic pain; C61 Malignant neoplasm of prostate; B18.2 Chronic viral hepatitis C; I10 Essential (primary) hypertension; E11.9 Type 2 diabetes mellitus without complications; F41.1 Generalized anxiety disorder; F32.9 Major depressive disorder, single episode, unspecified; I25.10 Atherosclerotic heart disease of native coronary artery without angina pectoris; R79.89 Other specified abnormal findings of blood chemistry; I48.0 Paroxysmal atrial fibrillation; E86.0 Dehydration; E87.6 Hypokalemia; K59.00 Constipation, unspecified; Z20.822 Contact with and (suspected) exposure to COVID-19; Z79.4 Long term (current) use of insulin; Z95.5 Presence of coronary angioplasty implant and graft; Z79.891 Long term (current) use of opiate analgesic
CPT/HCPCS: 36415; 71045; 74177; 80048; 80053; 80202; 81001; 82550; 82962; 83605; 83735; 83880; 84145; 84484; 85014; 85018; 85025; 87040; 87086; 87635; 93005; 93010; 96361; 96365; 96375; 96376; 97110; 97116; 97162; 99223; 99233; 99238; 99284; C9803; J1170; J1650; J1815; J2405; J2543; J3475

== ENCOUNTER → 2021-03-13 09:44 | Outpatient (CLI) | payer OTHER, SELFPAY ==
[2021-02-28 20:32] VITALS: BMI 20.2
[2021-03-13 10:21] LABS: Add Manual Diff / Slide Review NO; Basophils Absolute Auto 0 /uL (0-100); Basophils Percent Auto 0.6 % (0-2); Eosinophils Absolute Auto 0 /uL (0-450); Eosinophils Percent Auto 0.2 % (2-4); Hematocrit 38.3 % (41-53); Hemoglobin 13.5 g/dL (13.5-17.5); Lymphocytes Absolute Auto 1500 /uL (1100-4500); Lymphocytes Percent Auto 19.3 % (25-40); Mean Corpuscular HGB Conc 35.1 % (30-36); Mean Corpuscular Hemoglobin 34.7 PG (26-34); Mean Corpuscular Volume 98.8 fL (80-100); Monocytes Absolute Auto 1000 /uL (0-900); Monocytes Percent Auto 13.2 % (3-14); Neutrophils Absolute Auto 5100 /uL (1500-7000); Neutrophils Percent Auto 66.7 % (50-75); Platelet Count 115 X10^3/uL (150-400); Red Blood Cell Count 3.88 X10^6/uL (4.5-5.9); Red Cell Distribution Width 13.3 % (11.6-14.8); White Blood Cell Count 7.6 X10^3/uL (4.5-11.0)
[2021-03-13 10:57] LABS: Alanine Aminotransferase 367 IU/L (<50); Albumin 3.6 g/dL (3.5-5.0); Albumin Globulin Ratio 1.1 (1.0-2.8); Alkaline Phosphatase 132 U/L (38-126); Aspartate Aminotransferase 323 IU/L (17-59); BUN Creatinine Ratio 34.7 (6-22); Bilirubin Total 1.2 mg/dL (0.2-1.3); Blood Urea Nitrogen 26 mg/dL (9-20); Calcium 9.7 mg/dL (8.4-10.2); Carbon Dioxide 25 mmol/L (22-32); Chloride 95 mmol/L (98-107); Estimated Glomerular Filt Rate > 60.0 mL/min (>60); Globulin 3.2 g/dL (1.7-4.1); Glucose 265 mg/dL (80-110); HEMOLYSIS 25 (0-50); Magnesium 1.6 mg/dL (1.6-2.3); Potassium 4.4 mmol/L (3.4-5.1); Sodium 128 mmol/L (137-145); Total Protein 6.8 g/dL (6.3-8.2)
== END ==
PROVIDERS: PCP Internal Medicine; Referring Provider Internal Medicine; Visit Provider Internal Medicine
DX: E78.2 Mixed hyperlipidemia (principal); I10 Essential (primary) hypertension; I48.0 Paroxysmal atrial fibrillation
CPT/HCPCS: 36415; 80053; 83735; 85025

== ENCOUNTER → 2021-05-05 08:10 | Outpatient (CLI) | payer OTHER, SELFPAY ==
[2021-02-28 20:32] VITALS: BMI 20.2
[2021-05-05 09:07] LABS: Alanine Aminotransferase 55 IU/L (<50); Albumin 3.7 g/dL (3.5-5.0); Albumin Globulin Ratio 1.2 (1.0-2.8); Alkaline Phosphatase 126 U/L (38-126); Aspartate Aminotransferase 61 IU/L (17-59); BUN Creatinine Ratio 38.9 (6-22); Bilirubin Total 0.3 mg/dL (0.2-1.3); Blood Urea Nitrogen 21 mg/dL (9-20); Calcium 9.8 mg/dL (8.4-10.2); Carbon Dioxide 26 mmol/L (22-32); Chloride 107 mmol/L (98-107); Estimated Glomerular Filt Rate > 60.0 mL/min (>60); Globulin 3.2 g/dL (1.7-4.1); Glucose 180 mg/dL (80-110); HEMOLYSIS < 15 (0-50); Magnesium 1.5 mg/dL (1.6-2.3); Sodium 139 mmol/L (137-145); Total Protein 6.9 g/dL (6.3-8.2)
== END ==
PROVIDERS: PCP Internal Medicine; Referring Provider Internal Medicine; Visit Provider Internal Medicine
DX: E78.2 Mixed hyperlipidemia (principal); I10 Essential (primary) hypertension
CPT/HCPCS: 36415; 80053; 83735

== ENCOUNTER 2021-05-18 10:13 | Inpatient (IN) | payer OTHER, SELFPAY ==
[2021-02-28 20:32] VITALS: BMI 20.2
[2021-05-18] VITALS (22 sets, daily range): BP systolic 191–232; BP diastolic 98–124; PULSE 65–82; RESP 8–42; TEMP 36.1–37.2; O2SAT 95–100; BMI 19.9
[2021-05-18] MEDS: SODIUM CHLORIDE 0.9% 1,000 ML 1000 ML IV ×2 (10:30→11:07)
[2021-05-18 10:31] LABS: Add Manual Diff / Slide Review NO; Basophils Absolute Auto 0 /uL (0-100); Basophils Percent Auto 0.7 % (0-2); Eosinophils Absolute Auto 0 /uL (0-450); Eosinophils Percent Auto 0.6 % (2-4); Hematocrit 40.4 % (41-53); Lymphocytes Absolute Auto 700 /uL (1100-4500); Lymphocytes Percent Auto 18.9 % (25-40); Mean Corpuscular HGB Conc 34.7 % (30-36); Mean Corpuscular Hemoglobin 32.6 PG (26-34); Mean Corpuscular Volume 94.1 fL (80-100); Monocytes Absolute Auto 400 /uL (0-900); Monocytes Percent Auto 9.6 % (3-14); Neutrophils Absolute Auto 2800 /uL (1500-7000); Neutrophils Percent Auto 70.2 % (50-75); Platelet Count 125 X10^3/uL (150-400); Red Blood Cell Count 4.29 X10^6/uL (4.5-5.9); Red Cell Distribution Width 12.5 % (11.6-14.8)
--- NOTE | 2021-05-18 10:33 | ED.ABDPAIN ---
HPI - Abdominal Pain General Chief Complaint: Abdominal Pain Stated Complaint: Nausea/vomiting Time Seen by Provider: 05/18/21 10:27 History of Present Illness HPI narrative: Patient is a 65-year-old male with history of prostate cancer on Lupron, SVT with ablation, coronary artery disease, he started having nausea vomiting and sweats 2 nights ago. He had home health care, he actually has been doing so well that home health care signed off of him last week. His weight has been up. Things have generally been moving in the right direction in till 2 nights ago. He frequently has hot flashes he started having them again. He has previously had UTIs and dehydration. He has no chest pain no cough. He does have overall abdominal pain. He continues to have vomiting. He has not had chills or fever that he knows of. Related Data Home Medications Medication Instructions Recorded Confirmed tamsulosin 0.4 mg capsule 0.4 mg PO QPM 08/15/19 05/07/21 aspirin 81 mg chewable tablet 81 mg PO QAM 11/06/19 05/07/21 polyethylene glycol 3350 17 gram 17 g PO QAM 02/28/21 05/07/21 oral powder packet (Miralax) metoprolol succinate 50 mg 50 mg PO BID tab 03/13/21 05/07/21 tablet,extended release 24 hr Previous Rx's Medication Instructions Recorded promethazine 25 mg rectal 25 mg W[place] Q4-6H PRN #12 ea 11/18/20 suppository metformin 500 mg tablet 500 mg PO BID #180 tab 11/24/20 simvastatin 40 mg tablet 40 mg PO QPM #90 tab 02/11/21 cyclobenzaprine 5 mg tablet 5 mg PO TID PRN #60 tab 02/13/21 omeprazole 40 mg capsule,delayed 40 mg PO BID #180 cap 02/24/21 release ondansetron 4 mg disintegrating 4 mg PO Q6H PRN #30 tab 03/11/21 tablet oxycodone 5 mg tablet 10 mg PO Q4H PRN #360 tab 04/21/21 Allergies Allergy/AdvReac Type Severity Reaction Status Date / Time No Known Drug Allergies Allergy Verified 05/07/21 09:02 Review of Systems Review of Systems ROS Unobtainable: All systems reviewed & are unremarkable except as noted in HPI and below Constitutional Constitutional: Reports anorexia, Reports fatigue, Reports malaise, Reports night sweats and Reports poor appetite Eyes Eyes: Denies blurry vision ENT Ears, Nose, Mouth, and Throat: Denies vertigo, Denies dizziness and Denies throat swelling Cardiovascular Cardiovascular: Denies chest pain, Denies dyspnea and Denies dyspnea on exertion Respiratory Respiratory: Denies dyspnea and Denies dyspnea on exertion Gastrointestinal Gastrointestinal: Reports as per HPI, Reports abdominal pain, Reports nausea and Reports vomiting Genitourinary Genitourinary: Reports as per HPI Musculoskeletal Musculoskeletal: Reports myalgias Integumentary/Breasts Skin/Breast: Denies rash Neurologic Neurologic: Denies confusion, Denies vertigo and Denies dizziness Psychiatric Psychiatric: Denies confusion Endocrine Endocrine: Reports fatigue Allergic/Immunologic Allergic/Immunologic: Denies throat swelling Patient History Medical History Cannabis abuse Chronic hepatitis Coronary artery disease involving andreafski coronary artery of andreafski heart without angina pectoris (~2006) Diabetes type 2, uncontrolled Diverticulosis of large intestine (03/31/12) Essential hypertension Generalized anxiety disorder Kidney stones Mixed hyperlipidemia Paroxysmal A-fib Prostate cancer (~05/2019) Surgical History H/O heart artery stent (~2006) History of angioplasty (~12/2006) Hx of inguinal hernia surgery (~09/20/08) Hx of inguinal hernia surgery (~03/07/14) Status post laminectomy Social History marital status: unmarried,single number of children: 3 household members: none lives independently: Yes caregiver/support person: No housing: house pets and animals: No education level: high school occupational status: other 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.) alcohol intake: former substance use type: does not use and marijuana eating out: rarely or never Type(s) of exercise: normal ROM and activity and additional Smoking Status: Never smoker alcohol intake frequency: a few times a week Alcohol type: beer Substance Use Type: marijuana Exam Initial Vital Signs Initial Vital Signs: Vital Signs Temperature 99 F 05/18/21 10:28 Pulse Rate 71 05/18/21 10:28 Respiratory Rate 16 05/18/21 10:28 Blood Pressure 216/124 H 05/18/21 10:28 Pulse Oximetry 100 05/18/21 10:28 GENERAL: Chronically ill weak 65-year-old male in HEENT: Head atraumatic,EOMI, pupils reactive, face symmetric, dry mucous membranes, cracked tongue CARDIOVASCULAR: Regular rate and rhythm without murmurs, rubs or gallops. RESPIRATORY: Breath sounds equal bilaterally, no wheezes rales or rhonchi. ABDOMEN: Soft, nontender. Normoactive bowel sounds all 4 quadrants. No guarding or rebound. EXTREMITIES: Normal range of motion, no clubbing or edema. Neurovascularly intact NEUROLOGICAL: Alert and oriented x4. SKIN: Warm, dry, no laceration, no petechiae, no rashes or lesions. Course Orders Ordered: ED Orders 05/18/21 13:30 COVID19 - ADMIT (DRUG COUNSELOR swab/PCR) Stat Acetaminophen (Acetaminophen 325 Mg Tablet) 650 mg PO Q6HR PRN PRN Reason: Fever/Mild Pain (1-3) Aspirin (Aspirin 81 Mg Chew Tab) 81 mg PO DAILY [facility] Atorvastatin Calcium (Atorvastatin 20 Mg Tablet) 20 mg PO BEDTIME [facility] Clonidine HCl (Clonidine 0.1 Mg Tablet) 0.1 mg PO BID [facility] Dextrose (Dextrose 50 % In Water 25 Gm/50 Ml Syringe) 25 gm IV PRN PRN PRN Reason: Hypoglycemia Enoxaparin Sodium (Enoxaparin 40 Mg/0.4 Ml Syringe) 40 mg SUBCUT DAILY [facility] Hydromorphone HCl (Hydromorphone 1 Mg Inj) 1 mg IV Q3H PRN PRN Reason: Pain, Moderate (4-6) Last Admin: 05/18/21 18:14 Dose: 1 mg Documented by: Admin: 05/18/21 15:26 Dose: 1 mg Documented by: LALO Sodium Chloride (Normal Saline 0.45%) 1,000 mls @ 100 mls/hr IV CONT [facility] Last Admin: 05/18/21 15:20 Dose: 100 mls/hr Documented by: LALO Insulin Human Lispro (Insulin Lispro 100 Unit/Ml 3ml Vial) 0 unit SUBCUT ACHS [facility]; Protocol Last Admin: 05/18/21 16:32 Dose: Not Given Documented by: RE Lorazepam (Lorazepam 2 Mg/Ml Inj) 1 mg IV Q4HR PRN PRN Reason: Anxiety Metoprolol Succinate (Metoprolol Er 50 Mg Tablet) 50 mg PO BID [facility] Naloxone HCl (Naloxone 0.4 Mg/Ml Vial) 0.2 mg IV Q2MIN PRN PRN Reason: Opiate Reversal Ondansetron HCl (Ondansetron 4 Mg/2 Ml Inj) 4 mg IV Q8HR PRN PRN Reason: Nausea And Vomiting Oxycodone HCl (Oxycodone Ir 10 Mg Tablet) 10 mg PO Q4H PRN PRN Reason: pain Pantoprazole Sodium (Pantoprazole Dr 40 Mg Tablet) 40 mg PO BID [facility] Polyethylene Glycol (Polyethylene Glycol 3350 17 Gm Powd.Pack) 17 gm PO DAILY [facility] Tamsulosin HCl (Tamsulosin 0.4 Mg Capsule) 0.4 mg PO QPM [facility] Last Admin: 05/18/21 17:33 Dose: Not Given Documented by: RE Discontinued Medications Hydromorphone HCl (Hydromorphone 1 Mg Inj) 1 mg IV NOW ONE Stop: 05/18/21 10:52 Last Admin: 05/18/21 11:08 Dose: 1 mg Documented by: SOPHIE Hydromorphone HCl (Hydromorphone 1 Mg Inj) 1 mg IV NOW ONE Stop: 05/18/21 13:19 Last Admin: 05/18/21 14:04 Dose: 1 mg Documented by: SOPHIE Sodium Chloride (Normal Saline 0.9%) 1,000 mls @ 1,000 mls/hr IV BOLUS ONE Stop: 05/18/21 11:50 Last Infusion: 05/18/21 12:20 Dose: 1,000 mls/hr Documented by: Admin: 05/18/21 11:07 Dose: 1,000 mls/hr Documented by: SOPHIE Sodium Chloride (Normal Saline 0.9%) 1,000 mls @ 1,000 mls/hr IV BOLUS ONE Stop: 05/18/21 12:25 Last Infusion: 05/18/21 12:28 Dose: 1,000 mls/hr Documented by: Admin: 09/06/21 10:30 Dose: 1,000 mls/hr Documented by: SOPHIE Vital Signs Vital signs: Vital Signs - 8 hr 05/18/21 11:45 05/18/21 12:00 05/18/21 12:16 Pulse Rate 74 71 68 Respiratory Rate 20 9 L 15 Blood Pressure 211/106 H 210/116 H 204/104 H Pulse Oximetry 98 98 99 05/18/21 12:30 05/18/21 12:46 05/18/21 13:00 Pulse Rate 76 72 66 Respiratory Rate 13 8 L Blood Pressure 193/101 H 213/114 H Pulse Oximetry 99 98 99 05/18/21 13:01 05/18/21 13:15 Pulse Rate 73 72 Respiratory Rate 12 17 Blood Pressure 198/98 H 191/103 H Pulse Oximetry 98 99 MDM - Abdominal Pain Lab Data Result diagrams: 05/18/21 10:20 05/18/21 10:20 Labs: Lab Results 05/18/21 05/18/21 05/18/21 Range/Units 10:15 10:20 10:20 WBC 4.0 L (4.5-11.0) X10^3/uL RBC 4.29 L (4.5-5.9) X10^6/uL Hgb 14.0 (13.5-17.5) g/dL Hct 40.4 L (41-53) % MCV 94.1 (80-100) fL MCH 32.6 (26-34) PG MCHC 34.7 (30-36) % RDW 12.5 (11.6-14.8) % Plt Count 125 L (150-400) X10^3/uL Neut % (Auto) 70.2 (50-75) % Lymph % (Auto) 18.9 L (25-40) % [place] % (Auto) 9.6 (3-14) % Eos % (Auto) 0.6 L (2-4) % Baso % (Auto) 0.7 (0-2) % Neut # (Auto) 2800 (9557-4365) /uL Lymph # (Auto) 700 L (3233-8367) /uL [place] # (Auto) 400 (0-900) /uL Eos # (Auto) 0 (0-450) /uL Baso # (Auto) 0 (0-100) /uL Sodium 137 (137-145) mmol/L Potassium 4.3 (3.4-5.1) mmol/L Chloride 102 (98-107) mmol/L Carbon Dioxide 28 (22-32) mmol/L BUN 16 (9-20) mg/dL Creatinine 0.65 L (0.66-1.25) mg/dL Estimated GFR > 60.0 (>60) mL/min BUN/Creatinine Ratio 24.6 H (6-22) Glucose 192 H (80-110) mg/dL Lactate (0.7-2.1) mmol/L Calcium 9.8 (8.4-10.2) mg/dL Total Bilirubin 0.7 (0.2-1.3) mg/dL AST 79 H (17-59) IU/L ALT 81 H (<50) IU/L Alkaline Phosphatase 92 (38-126) U/L Total Creatine Kinase (55-170) U/L CK-MB (CK-2) CK-MB (CK-2) Rel Index Troponin I (0.01-0.034) ng/mL Total Protein 7.8 (6.3-8.2) g/dL Albumin 4.3 (3.5-5.0) g/dL Globulin 3.5 (1.7-4.1) g/dL Albumin/Globulin Ratio 1.2 (1.0-2.8) Lipase 82 (23-300) U/L Procalcitonin (<0.5) ng/mL SARS-CoV-2 (PCR) Negative (Negative) 05/18/21 05/18/21 05/18/21 Range/Units 10:20 10:20 10:20 WBC (4.5-11.0) X10^3/uL RBC (4.5-5.9) X10^6/uL Hgb (13.5-17.5) g/dL Hct (41-53) % MCV (80-100) fL MCH (26-34) PG MCHC (30-36) % RDW (11.6-14.8) % Plt Count (150-400) X10^3/uL Neut % (Auto) (50-75) % Lymph % (Auto) (25-40) % [place] % (Auto) (3-14) % Eos % (Auto) (2-4) % Baso % (Auto) (0-2) % Neut # (Auto) (7772-5874) /uL Lymph # (Auto) (6264-3933) /uL [place] # (Auto) (0-900) /uL Eos # (Auto) (0-450) /uL Baso # (Auto) (0-100) /uL Sodium (137-145) mmol/L Potassium (3.4-5.1) mmol/L Chloride (98-107) mmol/L Carbon Dioxide (22-32) mmol/L BUN (9-20) mg/dL Creatinine (0.66-1.25) mg/dL Estimated GFR (>60) mL/min BUN/Creatinine Ratio (6-22) Glucose (80-110) mg/dL Lactate 2.0 (0.7-2.1) mmol/L Calcium (8.4-10.2) mg/dL Total Bilirubin (0.2-1.3) mg/dL AST (17-59) IU/L ALT (<50) IU/L Alkaline Phosphatase (38-126) U/L Total Creatine Kinase 29 L (55-170) U/L CK-MB (CK-2) TNP CK-MB (CK-2) Rel Index TNP Troponin I < 0.012 (0.01-0.034) ng/mL Total Protein (6.3-8.2) g/dL Albumin (3.5-5.0) g/dL Globulin (1.7-4.1) g/dL Albumin/Globulin Ratio (1.0-2.8) Lipase (23-300) U/L Procalcitonin 0.11 (<0.5) ng/mL SARS-CoV-2 (PCR) (Negative) Point of care testing: Urine Dip Bedside Urine Glucose Negative Bedside Urine Bilirubin - Negative Bedside Urine Ketone +/- 5 Urine Specific [place] 1.020 Bedside Urine Occult Blood - Negative Bedside Urine pH 6.5 Bedside Urine Protein - Negative Bedside Urine Urobilinogen - Negative Bedside Urine Nitrite - Negative Bedside Urine Leukocytes - Negative Esterase ECG Data Interpretation: Normal sinus rhythm rate 60 got p.r. interval 158, QRS 78 kg she [address] changes no T-wave inversions MDM Narrative Medical decision making narrative: The patient has had frequent admissions and multiple workups he has had multiple CTs including CT angios. No symptomatology is generally found. His pain is controlled with Dilaudid. However he does have rising blood pressure. Nausea has also improved. He generally looks dry on physical exam. Blood work is overall reassuring. He has had ongoing night sweats which do not show any source of infection this time. No need for antibiotics. At this time supportive friend at bedside her both patient and friend think he needs to be admitted. He is unable to tolerate liquids generally appears to be weak Dr. Vasques obtain patient's symptoms test results and happily accepts for observation Discharge Plan Departure Patient Disposition: Admitted as Observation Clinical Impression: Nausea & vomiting Admit Date/Time: 05/18/21 14:02 Admit Provider: Khang Vasques
[2021-05-18 10:39] LABS: Alanine Aminotransferase 81 IU/L (<50); Albumin 4.3 g/dL (3.5-5.0); Albumin Globulin Ratio 1.2 (1.0-2.8); Alkaline Phosphatase 92 U/L (38-126); Aspartate Aminotransferase 79 IU/L (17-59); BUN Creatinine Ratio 24.6 (6-22); Bilirubin Total 0.7 mg/dL (0.2-1.3); Blood Urea Nitrogen 16 mg/dL (9-20); Calcium 9.8 mg/dL (8.4-10.2); Carbon Dioxide 28 mmol/L (22-32); Chloride 102 mmol/L (98-107); Estimated Glomerular Filt Rate > 60.0 mL/min (>60); Globulin 3.5 g/dL (1.7-4.1); Glucose 192 mg/dL (80-110); HEMOLYSIS < 15 (0-50); Lipase 82 U/L (23-300); Potassium 4.3 mmol/L (3.4-5.1); Sodium 137 mmol/L (137-145); Total Protein 7.8 g/dL (6.3-8.2)
[2021-05-18] MEDS: HYDROMORPHONE 1 MG INJ IV ×5 (11:08→23:27)
[2021-05-18 11:09] LABS: Creatine Kinase 29 U/L (55-170)
[2021-05-18 11:22] LABS: Troponin I < 0.012 ng/mL (0.01-0.034)
[2021-05-18 11:28] LABS: Procalcitonin 0.11 ng/mL (<0.5)
[2021-05-18 12:09] LABS: COVID19 - ADMIT (NP swab/PCR) Negative (Negative)
--- NOTE | 2021-05-18 12:31 | CM.MNRNOTE ---
pt states no pain relief despite pain meds. aware. pt provided with water and encouraged PO trail. IVF completed.
[2021-05-18] MEDS: SODIUM CHLORIDE 0.45% 1,000 ML 100 ML IV (15:20)
--- NOTE | 2021-05-18 18:54 | PM.HP.1 ---
History of Present Illness History of Present Illness Date Patient Seen: 05/18/21 Time Patient Seen: 18:54 Chief complaint: Nausea/vomiting Narrative: 65-year-old male well known to me from multiple previous admissions to the hospital including admissions for the exact same symptoms is now readmitted for persistent nausea vomiting and abdominal pain patient by report cannot keep anything down for the last 2+ days. Patient presented to the [facility] Emergency Department in this state. Evaluation in the ER was pretty unremarkable. His CBC was remarkable for mild anemia and thrombocytopenia which is consistently been present previously. Current hemoglobin hematocrit is actually somewhat improved. Low total white blood cell count, which is not inconsistent with prior numbers either. Chemistries essentially unremarkable, normal electrolytes and renal function. Elevation in transaminases as seen before likely due to his chronic hepatitis C. Given his prior history and prior negative workup on multiple multiple occasions further workup was not undertaken in the ER. He was admitted for symptom control. As suggested above patient has been evaluated previously for this syndrome. He has been seen by GI multiple times. Has had multiple negative labs and imaging studies. 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 Patient has continued to use cannabis despite strong strong recommendations that he discontinue this altogether. Patient does have diabetes in could have a variant of a gastro paresis but this seems atypical for that presentation. Patient could possibly have a cyclic vomiting syndrome on related to cannabis use, but treatment of course is the same other than the suggestion to discontinue cannabis. In addition patient has been treated for prostate cancer. He has had radiation treatment and received Lupron injection. He has struggle mightily with hot flashes ever since Lupron injection. Part of his presentation this time include severe hot flashes followed by chilling followed by hot flashes interfering with his sleep etcetera. It was in this setting that his GI symptoms returned. He basically feels as though he just can not continue in this state and sought help from the hospital at this point. Patient History Medical History Cannabis abuse Chronic hepatitis Coronary artery disease involving [place] coronary artery of [place] heart without angina pectoris (~2006) Diabetes type 2, uncontrolled Diverticulosis of large intestine (03/31/12) Essential hypertension Generalized anxiety disorder Kidney stones Mixed hyperlipidemia Paroxysmal A-fib Prostate cancer (~05/2019) Surgical History H/O heart artery stent (~2006) History of angioplasty (~12/2006) Hx of inguinal hernia surgery (~09/20/08) Hx of inguinal hernia surgery (~03/07/14) Status post laminectomy Family & Social History Social History: household members none Prior Living Arrangements House lives independently Yes caregiver/support person No Safety & Behavioral: Feels Safe in Current Yes Environment Been Physically Hurt or No Threatened By a Person Suicidal Ideation Description None Suicide Plan Description No Plan Tobacco & Substance use: Smoking Status Never smoker alcohol intake former alcohol intake frequency a few times a week Substance Use Type marijuana Meds Home Medications and Allergies Home Medications Medication Instructions Recorded Confirmed Type tamsulosin 0.4 mg capsule 0.4 mg PO QPM 08/15/19 05/07/21 History aspirin 81 mg chewable tablet 81 mg PO QAM 11/06/19 05/07/21 History promethazine 25 mg rectal 25 mg AR Q4-6H PRN #12 ea 11/18/20 05/07/21 Rx suppository metformin 500 mg tablet 500 mg PO BID #180 tab 11/24/20 05/07/21 Rx simvastatin 40 mg tablet 40 mg PO QPM #90 tab 02/11/21 05/07/21 Rx cyclobenzaprine 5 mg tablet 5 mg PO TID PRN #60 tab 02/13/21 05/07/21 Rx omeprazole 40 mg capsule,delayed 40 mg PO BID #180 cap 02/24/21 05/07/21 Rx release polyethylene glycol 3350 17 gram 17 g PO QAM 02/28/21 05/07/21 History oral powder packet (Miralax) ondansetron 4 mg disintegrating 4 mg PO Q6H PRN #30 tab 03/11/21 05/07/21 Rx tablet metoprolol succinate 50 mg 50 mg PO BID tab 03/13/21 05/07/21 History tablet,extended release 24 hr oxycodone 5 mg tablet 10 mg PO Q4H PRN #360 tab 04/21/21 05/07/21 Rx Allergies Allergy/AdvReac Type Severity Reaction Status Date / Time No Known Drug Allergies Allergy Verified 05/07/21 09:02 Review of Systems Constitutional Constitutional: Reports anorexia, Reports body ache(s), Reports chills, Reports difficulty sleeping, Reports excessive sweating, Reports fatigue, Reports headache(s), Reports lethargy and Denies weakness Eyes Eyes: Denies change in vision, Denies itchy eyes, Denies loss of vision and Denies other visual disturbances ENT Ears, Nose, Mouth, and Throat: No change in voice, No dysphagia, No dizziness, No otalgia, Yes headache(s), No hoarseness, No lip swelling, No neck pain, No sore throat, No throat swelling and No tongue swelling Cardiovascular Cardiovascular: Denies chest pain, Denies syncope, Denies rapid heart rate, Denies irregular heart rhythm, Denies palpitations, Denies dyspnea, Denies dyspnea on exertion and Denies slow heart rate Respiratory Respiratory: Denies chest congestion, Denies cough, Denies hemoptysis, Denies dyspnea, Denies dyspnea on exertion, Denies stridor and Denies wheezing Gastrointestinal Gastrointestinal: Denies dysphagia Genitourinary Genitourinary: Denies hematuria, Reports difficulty urinating (Baseline no change), Reports nocturia and Reports urinary frequency Comments: All urinary symptoms are a baseline without acute change Musculoskeletal Musculoskeletal: Denies abnormal gait, Denies myalgias, Denies arthralgias, Denies limited range of motion and Denies neck pain Integumentary/Breasts Skin/Breast: Denies bleeding lesions, Denies change in pigmentation, Denies changing lesions, Denies new lesions, Denies rash, Denies skin swelling, Denies sores and Denies jaundice Neurologic Neurologic: Denies abnormal speech, Denies abnormal gait, Denies behavioral changes, Denies confusion, Denies dizziness, Denies syncope, Reports headache(s), Denies loss of vision, Denies memory loss, Denies seizure-like activity, Denies paresthesias and Denies weakness Psychiatric Psychiatric: Denies behavioral changes, Denies change in appetite, Denies confusion, Denies difficulty concentrating, Denies auditory hallucinations, Denies memory loss, Denies mood swings and Denies suicidal ideation Endocrine Endocrine: Reports excessive sweating, Reports fatigue and Denies palpitations Allergic/Immunologic Allergic/Immunologic: Denies itchy eyes, Denies lip swelling, Denies throat swelling, Denies tongue swelling and Denies wheezing Exam Vital Signs (past 8 hours): - 05/18/21 11:00 05/18/21 11:02 05/18/21 11:07 Temperature Pulse Rate 66 68 65 Respiratory Rate 28 H 26 H 42 H Blood Pressure 223/112 H 232/112 H Pulse Oximetry 99 99 99 05/18/21 11:24 05/18/21 11:29 05/18/21 11:30 Temperature Pulse Rate 68 69 69 Respiratory Rate 17 10 L 10 L Blood Pressure 231/107 H 215/116 H Pulse Oximetry 99 99 99 05/18/21 11:45 05/18/21 12:00 05/18/21 12:16 Temperature Pulse Rate 74 71 68 Respiratory Rate 20 9 L 15 Blood Pressure 211/106 H 210/116 H 204/104 H Pulse Oximetry 98 98 99 05/18/21 12:30 05/18/21 12:46 05/18/21 13:00 Temperature Pulse Rate 76 72 66 Respiratory Rate 13 8 L Blood Pressure 193/101 H 213/114 H Pulse Oximetry 99 98 99 05/18/21 13:01 05/18/21 13:15 05/18/21 14:56 Temperature 97.6 F Pulse Rate 73 72 74 Respiratory Rate 12 17 8 L Blood Pressure 198/98 H 191/103 H 193/118 H Pulse Oximetry 98 99 98 05/18/21 15:00 05/18/21 15:32 Temperature Pulse Rate 65 Respiratory Rate Blood Pressure Pulse Oximetry 98 95 Oxygen Delivery Method Room Air Oxygen Flow Rate 0 Narrative Exam Narrative: Middle-age male who appears much older than his stated age lying in hospital bed to just is sort of puny looking HEENT-normocephalic atraumatic Neck-no lymphadenopathy no bruits Lungs-clear with good breath sounds Heart-regular rate and rhythm Abdomen-benign, positive bowel tones soft nontender nondistended no hepatosplenomegaly no rebound or guarding present Extremities-no cyanosis clubbing or edema Objective Labs Result Diagrams: 05/19/21 05:13 05/19/21 05:13 Labs: Laboratory Results - last 24 hr 05/18/21 05/18/21 05/18/21 10:15 10:20 10:20 WBC 4.0 L RBC 4.29 L Hgb 14.0 Hct 40.4 L MCV 94.1 MCH 32.6 MCHC 34.7 RDW 12.5 Plt Count 125 L Neut % (Auto) 70.2 Lymph % (Auto) 18.9 L [place] % (Auto) 9.6 Eos % (Auto) 0.6 L Baso % (Auto) 0.7 Neut # (Auto) 2800 Lymph # (Auto) 700 L [place] # (Auto) 400 Eos # (Auto) 0 Baso # (Auto) 0 Sodium 137 Potassium 4.3 Chloride 102 Carbon Dioxide 28 BUN 16 Creatinine 0.65 L Estimated GFR > 60.0 BUN/Creatinine Ratio 24.6 H Glucose 192 H Lactate Calcium 9.8 Total Bilirubin 0.7 AST 79 H ALT 81 H Alkaline Phosphatase 92 Total Creatine Kinase CK-MB (CK-2) CK-MB (CK-2) Rel Index Troponin I Total Protein 7.8 Albumin 4.3 Globulin 3.5 Albumin/Globulin Ratio 1.2 Lipase 82 Procalcitonin SARS-CoV-2 (PCR) Negative 05/18/21 05/18/21 05/18/21 10:20 10:20 10:20 WBC RBC Hgb Hct MCV MCH MCHC RDW Plt Count Neut % (Auto) Lymph % (Auto) [place] % (Auto) Eos % (Auto) Baso % (Auto) Neut # (Auto) Lymph # (Auto) [place] # (Auto) Eos # (Auto) Baso # (Auto) Sodium Potassium Chloride Carbon Dioxide BUN Creatinine Estimated GFR BUN/Creatinine Ratio Glucose Lactate 2.0 Calcium Total Bilirubin AST ALT Alkaline Phosphatase Total Creatine Kinase 29 L CK-MB (CK-2) TNP CK-MB (CK-2) Rel Index TNP Troponin I < 0.012 Total Protein Albumin Globulin Albumin/Globulin Ratio Lipase Procalcitonin 0.11 SARS-CoV-2 (PCR) Assessment & Plan Assessment & Plan narrative: 1. Recurrent nausea vomiting with abdominal pain-patient will be admitted receive IV antiemetics IV fluids and IV parental narcotics for pain relief. If patient follows his usual pattern, he will improve significantly in the 1st 24-48 hours and be able to have medication weaned and or discontinued and return to more normal diet and be ready for discharge probably somewhere between 48 and 72 hours. If he develops any unusual or atypical symptoms for him that my prompt further evaluation but at this time I am not anticipating any additional testing or studies other than monitoring basic labs 2. Type 2 diabetes-I am going to hold his oral hypoglycemic until he is eating more. Follow his blood sugar numbers with insulin as necessary. Avoid IV dextrose at this time. 3. Prostate cancer-patient recently completed a treatment course of radiation for his prostate cancer. 4. Coronary artery disease-no evidence of active ischemia at this time. Continue usual medications 5. Paroxysmal atrial fibrillation-patient without evidence of dysrhythmia at this time. Continue usual medications. 6. Chronic hepatitis C-interestingly enough patient's transaminases are actually somewhat improved over his baseline. This was present on labs done in the absence symptoms back in late April. Uncertain as to why his transaminase levels are approximately 25% of previous numbers. Bilirubin, etcetera all other markers appear to be stable 7. VTE prophylaxis-Lovenox will be employed. We will monitor his platelet count but it has been stable despite Lovenox in the past. Does have chronically low platelets due to his chronic hepatitis but they have not been affected by the low-molecular weight heparin previously. 8. Code status-after discussion patient really does not want to continue in his current state. Therefore something sudden such as a cardiac or respiratory arrest which occurred he would not want to be resuscitated. His the has gone back and forth on this decision in the past but seems clear to me at this point that while there is no expectation of any immediate process that could or should cause a cardiac or respiratory arrest likely to occur if it were to occur he would accept and would not want any attempts at resuscitation. Therefore he will be made no code for the purposes this hospitalization 9. Hypertension-patient's severely hypertensive which was seen before with these episodes. It is more likely and seemingly and affect rather than a cause of his symptoms. Treating his GI symptoms is and has been in the past the most effective way to control his blood pressure. 10. Hot flashes-certainly secondary to his hormonal treatment for his prostate cancer. Will try doses of clonidine at night which may help some with the hot flashes may help with his blood pressure and may help with some level of anxiety as well. Time Spent With Patient Critical Care time: I spent a total of [] minutes of critical care time on this patient's care today; this time is exclusive of procedural time. Quality VTE Deep Vein Thrombosis/Pulmonary Embolism Present on Admission: No
[2021-05-18] MEDS: LORazepam 2 MG/ML INJ 1 MG IV (20:11)
[2021-05-18] MEDS: ONDANSETRON 4 MG/2 ML INJ IV (22:13)
[2021-05-19] VITALS (14 sets, daily range): BP systolic 114–179; BP diastolic 83–131; PULSE 74–105; RESP 16–18; TEMP 36.2–37.1; O2SAT 96–100
[2021-05-19] MEDS: SODIUM CHLORIDE 0.45% 1,000 ML 100 ML IV (01:20)
[2021-05-19] MEDS: HYDROMORPHONE 1 MG INJ IV ×2 (02:20→09:05)
[2021-05-19 05:34] LABS: Add Manual Diff / Slide Review NO; Basophils Absolute Auto 0 /uL (0-100); Basophils Percent Auto 0.3 % (0-2); Eosinophils Absolute Auto 0 /uL (0-450); Hematocrit 41.7 % (41-53); Hemoglobin 14.7 g/dL (13.5-17.5); Lymphocytes Absolute Auto 1300 /uL (1100-4500); Lymphocytes Percent Auto 18.1 % (25-40); Mean Corpuscular HGB Conc 35.3 % (30-36); Mean Corpuscular Hemoglobin 32.5 PG (26-34); Mean Corpuscular Volume 92.2 fL (80-100); Monocytes Absolute Auto 1000 /uL (0-900); Monocytes Percent Auto 13.8 % (3-14); Neutrophils Absolute Auto 5000 /uL (1500-7000); Neutrophils Percent Auto 67.8 % (50-75); Platelet Count 134 X10^3/uL (150-400); Red Blood Cell Count 4.52 X10^6/uL (4.5-5.9); Red Cell Distribution Width 12.6 % (11.6-14.8); White Blood Cell Count 7.4 X10^3/uL (4.5-11.0)
[2021-05-19 05:49] LABS: BUN Creatinine Ratio 31.9 (6-22); Blood Urea Nitrogen 15 mg/dL (9-20); Calcium 9.6 mg/dL (8.4-10.2); Carbon Dioxide 23 mmol/L (22-32); Chloride 97 mmol/L (98-107); Estimated Glomerular Filt Rate > 60.0 mL/min (>60); Glucose 153 mg/dL (80-110); HEMOLYSIS < 15 (0-50); Potassium 3.4 mmol/L (3.4-5.1); Sodium 131 mmol/L (137-145)
[2021-05-19] MEDS: LORazepam 2 MG/ML INJ 1 MG IV (06:00)
[2021-05-19] MEDS: NITROGLYCERIN OINT 1 INCH/GM OINT...G. 0.5 INCH TOP (07:13)
--- NOTE | 2021-05-19 07:59 | PM.PN.1 ---
Subjective Subjective Date Patient Seen: 05/19/21 Time Patient Seen: 08:00 Interval history: Patient reports feeling some better. Got some rest with fewer hot flashes overnight. Able to keep a couple sips water down. Exam Vital Signs (past 8 hours): - 05/19/21 00:00 05/19/21 05:34 05/19/21 06:50 Temperature 98.7 F 98.6 F Pulse Rate 94 H 90 Respiratory Rate 18 18 Blood Pressure 163/112 H 179/131 H 154/111 H Pulse Oximetry 99 98 05/19/21 07:33 Temperature Pulse Rate Respiratory Rate Blood Pressure Pulse Oximetry 98 Oxygen Delivery Method Room Air Oxygen Flow Rate 0 Objective Labs Result Diagrams: 05/19/21 05:13 05/19/21 05:13 Labs: Laboratory Results - last 24 hr 05/18/21 05/18/21 05/18/21 10:15 10:20 10:20 WBC 4.0 L RBC 4.29 L Hgb 14.0 Hct 40.4 L MCV 94.1 MCH 32.6 MCHC 34.7 RDW 12.5 Plt Count 125 L Neut % (Auto) 70.2 Lymph % (Auto) 18.9 L [place] % (Auto) 9.6 Eos % (Auto) 0.6 L Baso % (Auto) 0.7 Neut # (Auto) 2800 Lymph # (Auto) 700 L [place] # (Auto) 400 Eos # (Auto) 0 Baso # (Auto) 0 Sodium 137 Potassium 4.3 Chloride 102 Carbon Dioxide 28 BUN 16 Creatinine 0.65 L Estimated GFR > 60.0 BUN/Creatinine Ratio 24.6 H Glucose 192 H Lactate Calcium 9.8 Total Bilirubin 0.7 AST 79 H ALT 81 H Alkaline Phosphatase 92 Total Creatine Kinase CK-MB (CK-2) CK-MB (CK-2) Rel Index Troponin I Total Protein 7.8 Albumin 4.3 Globulin 3.5 Albumin/Globulin Ratio 1.2 Lipase 82 Procalcitonin SARS-CoV-2 (PCR) Negative 05/18/21 05/18/21 05/18/21 10:20 10:20 10:20 WBC RBC Hgb Hct MCV MCH MCHC RDW Plt Count Neut % (Auto) Lymph % (Auto) [place] % (Auto) Eos % (Auto) Baso % (Auto) Neut # (Auto) Lymph # (Auto) [place] # (Auto) Eos # (Auto) Baso # (Auto) Sodium Potassium Chloride Carbon Dioxide BUN Creatinine Estimated GFR BUN/Creatinine Ratio Glucose Lactate 2.0 Calcium Total Bilirubin AST ALT Alkaline Phosphatase Total Creatine Kinase 29 L CK-MB (CK-2) TNP CK-MB (CK-2) Rel Index TNP Troponin I < 0.012 Total Protein Albumin Globulin Albumin/Globulin Ratio Lipase Procalcitonin 0.11 SARS-CoV-2 (PCR) 05/19/21 05/19/21 05:13 05:13 WBC 7.4 D RBC 4.52 Hgb 14.7 Hct 41.7 MCV 92.2 MCH 32.5 MCHC 35.3 RDW 12.6 Plt Count 134 L Neut % (Auto) 67.8 Lymph % (Auto) 18.1 L [place] % (Auto) 13.8 Eos % (Auto) 0.0 L Baso % (Auto) 0.3 Neut # (Auto) 5000 Lymph # (Auto) 1300 [place] # (Auto) 1000 H Eos # (Auto) 0 Baso # (Auto) 0 Sodium 131 L Potassium 3.4 Chloride 97 L Carbon Dioxide 23 BUN 15 Creatinine 0.47 L Estimated GFR > 60.0 BUN/Creatinine Ratio 31.9 H Glucose 153 H Lactate Calcium 9.6 Total Bilirubin AST ALT Alkaline Phosphatase Total Creatine Kinase CK-MB (CK-2) CK-MB (CK-2) Rel Index Troponin I Total Protein Albumin Globulin Albumin/Globulin Ratio Lipase Procalcitonin SARS-CoV-2 (PCR) [facility] Medical History Cannabis abuse Chronic hepatitis Coronary artery disease involving [place] coronary artery of [place] heart without angina pectoris (~2006) Diabetes type 2, uncontrolled Diverticulosis of large intestine (03/31/12) Essential hypertension Generalized anxiety disorder Kidney stones Mixed hyperlipidemia Paroxysmal A-fib Prostate cancer (~05/2019) Surgical History H/O heart artery stent (~2006) History of angioplasty (~12/2006) Hx of inguinal hernia surgery (~09/20/08) Hx of inguinal hernia surgery (~03/07/14) Status post laminectomy Social History marital status: unmarried,single number of children: 3 household members: none lives independently: Yes caregiver/support person: No housing: house pets and animals: No education level: high school occupational status: other 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/yazidi: None leisure activities: music, fishing and other Smoking Status: Never smoker Tobacco: How many years used: 56 Smokeless tobacco user: other quit status: has quit before second hand exposure: Yes (On farmland/Boat.) alcohol intake: former substance use type: does not use and marijuana eating out: rarely or never Type(s) of exercise: normal ROM and activity and additional Assessment & Plan Assessment & Plan narrative: 1. Nausea and vomiting-continue with IV fluids IV antiemetics etcetera. Lab work reassuring this morning no progression of any illness based on that result 2. Hot flashes-perhaps minimal improvement either with rehydration and or with the clonidine. Continue clonidine for now. 3. Hypertension-patient's blood pressure minimally improved. Continue usual medications with the addition of the clonidine see how things go through the course of the day today 4. Diabetes-continue to monitor numbers use insulin as necessary for hyperglycemia. Doubt this will be an issue as patient is very limited oral intake Overall patient is minimally improved. I am hoping through the course the day as we continue with aggressive symptom control as above he will improve. This is usually the case on either day to her day 3 of his admissions. Note: Greater than 30 minutes was spent evaluating the patient on the floor, including examining the patient, discussing clinical course with clinical and nursing staff, reviewing clinical course in the computer, preparing documentation and writing orders for continued management of care, discussing status with family as appropriate, reviewing plans for the next 24 hours with both patient/family and nursing staff as appropriate. Time Spent With Patient Critical Care time: I spent a total of [] minutes of critical care time on this patient's care today; this time is exclusive of procedural time. Quality VTE Deep Vein Thrombosis/Pulmonary Embolism Present on Admission: No
[2021-05-19] MEDS: cloNIDine 0.1 MG TABLET PO ×2 (08:28→20:02)
[2021-05-19] MEDS: PANTOPRAZOLE DR 40 MG TABLET PO ×2 (08:28→20:02)
[2021-05-19] MEDS: ENOXAPARIN 40 MG/0.4 ML SYRINGE SUBCUT (08:28)
[2021-05-19] MEDS: ASPIRIN 81 MG CHEW TAB PO (08:28)
[2021-05-19] MEDS: polyethylene glycoL 3350 17 GM POWD.PACK PO (08:28)
[2021-05-19] MEDS: METOPROLOL ER 50 MG TABLET PO ×2 (08:28→20:02)
[2021-05-19] MEDS: INSULIN LISPRO 100 UNIT/ML 3ML VIAL SUBCUT ×2 (08:32→12:52)
[2021-05-19] MEDS: SODIUM CHLORIDE 0.9% 1,000 ML 125 ML IV ×2 (09:02→17:08)
--- NOTE | 2021-05-19 12:39 | CM.DANOTE ---
DCP: Case received, EMR reviewed and checked on patient. He had been having nausea, and sleeping. 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 Was able to complete DCP assessment based upon information currently available. Patient is a 65 year old male who admitted yesterday afternoon to the care of the hospitalist team. PCP: Dr. Vasques. Payer: confirmed: [employer]. Patient came to the hospital via ambulance secondary to having increased nausea and vomiting. Patient has history of prostace CA, and is on Lupon. He is here for dehydration/nausea, and is currently on IV fluids. Attempted to meet with patient, but he has been sleeping, and prior, was on the phone with his friend, Lisandra. Have worked with this patient before, since he has had prior hospitalizations. 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 He has friends, and a main friend named Lisandra, who checks in with patient. Patient recently had home health with [facility], per Jenna. He was discharged on 05/05, from their services, and P.T/O.T. were the last disciplines. He originally had RN in the beginning. He does not drive, relies on friends to assist, as well as with meals. P: DCP to continue to follow. He does not currently have P.T. orders, but will see how he progresses here in the hospital. If he does need home health to come back in, will need new orders and face to face. Radha Guajardo, MARY KATE/Radiologic Technologist Chief
[2021-05-19] MEDS: OXYCODONE IR 10 MG TABLET PO (12:51)
[2021-05-19] MEDS: ATORVASTATIN 20 MG TABLET PO (20:02)
[2021-05-19] MEDS: ACETAMINOPHEN 325 MG TABLET 650 MG PO (20:25)
[2021-05-20] VITALS (9 sets, daily range): BP systolic 135–157; BP diastolic 88–104; PULSE 65–78; RESP 12–20; TEMP 36.3–36.8; O2SAT 97–99
[2021-05-20] MEDS: SODIUM CHLORIDE 0.9% 1,000 ML 125 ML IV ×3 (01:24→17:35)
[2021-05-20] MEDS: OXYCODONE IR 10 MG TABLET PO ×5 (01:24→22:47)
[2021-05-20 05:54] LABS: Add Manual Diff / Slide Review NO; Basophils Absolute Auto 0 /uL (0-100); Basophils Percent Auto 0.7 % (0-2); Eosinophils Absolute Auto 0 /uL (0-450); Eosinophils Percent Auto 1.1 % (2-4); Hematocrit 37.2 % (41-53); Hemoglobin 13.1 g/dL (13.5-17.5); Lymphocytes Absolute Auto 1100 /uL (1100-4500); Lymphocytes Percent Auto 27.4 % (25-40); Mean Corpuscular HGB Conc 35.2 % (30-36); Mean Corpuscular Hemoglobin 32.6 PG (26-34); Mean Corpuscular Volume 92.8 fL (80-100); Monocytes Absolute Auto 700 /uL (0-900); Monocytes Percent Auto 15.7 % (3-14); Neutrophils Absolute Auto 2300 /uL (1500-7000); Neutrophils Percent Auto 55.1 % (50-75); Platelet Count 108 X10^3/uL (150-400); Red Blood Cell Count 4.01 X10^6/uL (4.5-5.9); Red Cell Distribution Width 12.4 % (11.6-14.8); White Blood Cell Count 4.1 X10^3/uL (4.5-11.0)
[2021-05-20 06:00] LABS: BUN Creatinine Ratio 30.5 (6-22); Blood Urea Nitrogen 18 mg/dL (9-20); Calcium 9.2 mg/dL (8.4-10.2); Carbon Dioxide 25 mmol/L (22-32); Chloride 107 mmol/L (98-107); Estimated Glomerular Filt Rate > 60.0 mL/min (>60); Glucose 115 mg/dL (80-110); HEMOLYSIS < 15 (0-50); Potassium 3.4 mmol/L (3.4-5.1); Sodium 137 mmol/L (137-145)
--- NOTE | 2021-05-20 07:57 | P.PN_ITS ---
Subjective Subjective Date Patient Seen: 05/20/21 Time Patient Seen: 07:57 Interval history: Patient reports his sense of hot flashes is improving day by day. Still having hot flashes followed by chills. Blood pressure slowly improving Has not really been able to eat much of anything Lab work is unremarkable Exam Vital Signs (past 8 hours): - 05/20/21 04:28 Pulse Rate 71 Blood Pressure 149/88 H Pulse Oximetry 97 Oxygen Delivery Method Room Air Oxygen Flow Rate 0 Objective Labs Result Diagrams: 05/20/21 05:05 05/20/21 05:05 Labs: Laboratory Results - last 24 hr 05/20/21 05/20/21 05:05 05:05 WBC 4.1 L RBC 4.01 L Hgb 13.1 L Hct 37.2 L MCV 92.8 MCH 32.6 MCHC 35.2 RDW 12.4 Plt Count 108 L Neut % (Auto) 55.1 Lymph % (Auto) 27.4 [place] % (Auto) 15.7 H Eos % (Auto) 1.1 L Baso % (Auto) 0.7 Neut # (Auto) 2300 Lymph # (Auto) 1100 [place] # (Auto) 700 Eos # (Auto) 0 Baso # (Auto) 0 Sodium 137 Potassium 3.4 Chloride 107 Carbon Dioxide 25 BUN 18 Creatinine 0.59 L Estimated GFR > 60.0 BUN/Creatinine Ratio 30.5 H Glucose 115 H Calcium 9.2 PFSH Medical History Cannabis abuse Chronic hepatitis Coronary artery disease involving [place] coronary artery of [place] heart without angina pectoris (~2006) Diabetes type 2, uncontrolled Diverticulosis of large intestine (03/31/12) Essential hypertension Generalized anxiety disorder Kidney stones Mixed hyperlipidemia Paroxysmal A-fib Prostate cancer (~05/2019) Surgical History H/O heart artery stent (~2006) History of angioplasty (~12/2006) Hx of inguinal hernia surgery (~09/20/08) Hx of inguinal hernia surgery (~03/07/14) Status post laminectomy Social History marital status: unmarried,single number of children: 3 household members: none lives independently: Yes caregiver/support person: No housing: house pets and animals: No education level: high school occupational status: other 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 Nausea vomiting with abdominal pain-continue with IV fluids anti emetics as listed before. Continued stability with lab work. I am going to discontinue following blood tests. It is puzzling to me that he presents with a super hypertension and these prominent GI symptoms. It occurs to me that perhaps there is some pheochromocytoma or carcinoid syndrome ongoing here. With the next episode I would recommend obtaining 24 hour urine collection for metanephrines, 5 HIAA etcetera. I would not trust a normal result at this point since he is improving and so I am not going to order it now. I have always assumed his severe hypertension is and affect rather than cause related to whatever illnesses ongoing with his GI tract. 2. Hot flashes-continue with the clonidine for now. Perhaps it is also helping with blood pressure 3. Hypertension-improved. Perhaps due to improvement in whatever was the trigger and or the clonidine has been initiated 4. Diabetes-numbers continue to be just fine again likely due to very limited oral intake Patient requires ongoing hospitalization given his inability to eat has persistent symptoms as above etcetera Note: Greater than 20 minutes was spent evaluating the patient on the floor, including examining the patient, discussing clinical course with clinical and nursing staff, reviewing clinical course in the computer, preparing documentation and writing orders for continued management of care, discussing status with family as appropriate, reviewing plans for the next 24 hours with both patient/family and nursing staff as appropriate. Time Spent With Patient Critical Care time: I spent a total of [] minutes of critical care time on this patient's care today; this time is exclusive of procedural time. Quality VTE Deep Vein Thrombosis/Pulmonary Embolism Present on Admission: No
[2021-05-20] MEDS: polyethylene glycoL 3350 17 GM POWD.PACK PO (09:31)
[2021-05-20] MEDS: METOPROLOL ER 50 MG TABLET PO ×2 (09:32→20:28)
[2021-05-20] MEDS: PANTOPRAZOLE DR 40 MG TABLET PO ×2 (09:32→20:28)
[2021-05-20] MEDS: ENOXAPARIN 40 MG/0.4 ML SYRINGE SUBCUT (09:32)
[2021-05-20] MEDS: cloNIDine 0.1 MG TABLET PO ×2 (09:32→20:28)
[2021-05-20] MEDS: ASPIRIN 81 MG CHEW TAB PO (09:33)
[2021-05-20] MEDS: AMLODIPINE 5 MG TABLET PO (12:27)
[2021-05-20] MEDS: ACETAMINOPHEN 325 MG TABLET 650 MG PO (17:51)
[2021-05-20] MEDS: TAMSULOSIN 0.4 MG CAPSULE PO (17:51)
[2021-05-20] MEDS: ATORVASTATIN 20 MG TABLET PO (20:28)
[2021-05-21] VITALS (11 sets, daily range): BP systolic 139–167; BP diastolic 71–98; PULSE 68–77; RESP 16–20; TEMP 36.3–37.1; O2SAT 96–100
[2021-05-21] MEDS: ACETAMINOPHEN 325 MG TABLET 650 MG PO (01:34)
[2021-05-21] MEDS: SODIUM CHLORIDE 0.9% 1,000 ML 125 ML IV (01:35)
[2021-05-21] MEDS: OXYCODONE IR 10 MG TABLET PO ×5 (02:19→22:43)
[2021-05-21] MEDS: polyethylene glycoL 3350 17 GM POWD.PACK PO (08:03)
[2021-05-21] MEDS: ENOXAPARIN 40 MG/0.4 ML SYRINGE SUBCUT (08:03)
[2021-05-21] MEDS: ASPIRIN 81 MG CHEW TAB PO (08:03)
[2021-05-21] MEDS: PANTOPRAZOLE DR 40 MG TABLET PO ×2 (08:03→20:39)
[2021-05-21] MEDS: METOPROLOL ER 50 MG TABLET PO ×2 (08:04→20:39)
--- NOTE | 2021-05-21 08:12 | P.PN_ITS ---
Subjective Subjective Date Patient Seen: 05/21/21 Time Patient Seen: 08:12 Interval history: Patient looks like he feels better. Sitting up in bed has more of a smile on his face is more quickly interactive. However when trying to move his arm to apply blood pressure cough he grimaces and complains of arm pain both sides from the shoulder down. Has had some shoulder pain as an outpatient but we have deferred evaluation because of his other medical issues Says his appetite is coming back slowly No emesis. Hot flashes have diminished significantly Exam Vital Signs (past 8 hours): - 05/21/21 00:15 05/21/21 05:50 Temperature 98.4 F 97.8 F Pulse Rate 72 77 Respiratory Rate 20 20 Blood Pressure 157/97 H 151/98 H Pulse Oximetry 97 100 Oxygen Delivery Method Room Air Oxygen Flow Rate 0 Objective Labs Result Diagrams: 05/20/21 05:05 05/20/21 05:05 [facility] Medical History Cannabis abuse Chronic hepatitis Coronary artery disease involving [place] coronary artery of [place] heart without angina pectoris (~2006) Diabetes type 2, uncontrolled Diverticulosis of large intestine (03/31/12) Essential hypertension Generalized anxiety disorder Kidney stones Mixed hyperlipidemia Paroxysmal A-fib Prostate cancer (~05/2019) Surgical History H/O heart artery stent (~2006) History of angioplasty (~12/2006) Hx of inguinal hernia surgery (~09/20/08) Hx of inguinal hernia surgery (~03/07/14) Status post laminectomy Social History marital status: unmarried,single number of children: 3 household members: none lives independently: Yes caregiver/support person: No housing: house pets and animals: No education level: high school occupational status: other 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 Nausea vomiting abdominal pain-continue supportive care. Will advance diet slightly. Continue with IV antiemetics. Continue with parental narcotics for now. He has been receiving this a couple times a day at least. I am going to DC his IV fluids however. No clear etiology for this at this point as usual. Whether this represents a cyclic vomiting syndrome or hyperemesis cannabis syndrome is just not exactly clear. As noted yesterday cannot rule out possibility I suppose of something like carcinoid or pheochromocytoma, the clue being the severe hypertension he continues to demonstrate. If he follows his usual pattern as an outpatient he will return to see me with modest hypotension if anything. Given his ongoing persistent hypertension and the opportunity to obtain a 24 hour urine here in the hospital, which is usually more difficult than patient's doing at home but in this case I think would be easier than having patient try and do this at home I am going to go ahead and order the usual studies for carcinoid and or pheochromocytoma. 24 hour urine catecholamines, if fraction aid, 24 hour urine metanephrines, and 24 hour urine for 5-HIAA. 2. Hypertension-as above patient persistently hypertensive. I added a single dose of amlodipine which helps some yesterday. I am going to make that a daily dose for now at a slightly higher dose given his blood pressure 180/117 as I am seeing him this morning. Again unclear to me the etiology of this severe hypertension which is generally followed once he recovers completely by relative hypotension due to the increased doses of his antihypertensive regimen 3. Diabetes-great control given very limited oral intake 4. Hot flashes-somewhat improved. Continue him on clonidine for now. 5. Patient's other medical problems seem relatively stable I am going to have physical therapy see him getting up and moving evaluate his shoulders in arms etcetera. This point I am hoping we can discharge him sometime tomorrow or at the latest on Tuesday. Basically all were doing his monitoring his blood pressure giving him some IV fluids IV antiemetics IV narcotics and I believe he can probably do just as well at home. Note: Greater than 30 minutes was spent evaluating the patient on the floor, including examining the patient, discussing clinical course with clinical and nursing staff, reviewing clinical course in the computer, preparing document ation and writing orders for continued management of care, discussing status with family as appropriate, reviewing plans for the next 24 hours with both patient/family and nursing staff as appropriate. Time Spent With Patient Critical Care time: I spent a total of [] minutes of critical care time on this patient's care today; this time is exclusive of procedural time. Quality VTE Deep Vein Thrombosis/Pulmonary Embolism Present on Admission: No
[2021-05-21] MEDS: AMLODIPINE 5 MG TABLET 7.5 MG PO (10:08)
--- NOTE | 2021-05-21 10:26 | PT.IIE ---
Current Diagnoses Nausea with vomiting, unspecified (05/18/21) Surgical History (Last Reviewed 05/18/21 @ 19:17 by Khang Vasques MD) History of angioplasty (~12/2006) Status post laminectomy Medical History (Last Reviewed 05/18/21 @ 19:17 by Khang Vasques MD) Cannabis abuse Chronic hepatitis Coronary artery disease involving [place] coronary artery of [place] heart without angina pectoris (~2006) Diabetes type 2, uncontrolled Diverticulosis of large intestine (03/31/12) Essential hypertension Generalized anxiety disorder Kidney stones Mixed hyperlipidemia Paroxysmal A-fib Prostate cancer (~05/2019) Physical Therapy Inpatient Evaluation/Re-Eval M1 PT/OT-IP Prior Functional Status Start: 05/21/21 11:44 Freq: NEEDED Status: Active Protocol: Document 05/21/21 10:26 AB (Rec: 05/21/21 12:05 [email or web address]) Medical Review Prior Functional Status Medical History Reviewed Yes Communication able to make needs known Mobility and Gait pt stated that he is modified independent with all mobilities and ambulation using FWW indoors and 2 walking sticks for outdoor mobility; occasionally usesa his manual w/c depending on how he feels Prior Functional Level (Other details) pt stated that he has prostate CA and had radiation and now taking hormonal medication. stated that he had 24/7 caregiver for ~ 2 month but currently changed to ~ 4 hours daily since he has been doing better. stated that he had HHPT, OT as well and has just finished with those. 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 pt stays on main level of the house Home Environment Standard Height Toilet,Tub/ Shower,Ramp Home Equipment Front Wheel Walker,Manual Wheelchair,Tub Transfer Bench, Hand Held Shower,Grab Bars In Shower Additional Social History Comment pt has 2 walking sticks; safety frame around the toilet M2 PT-IP Current Condition Start: 05/21/21 11:44 Freq: NEEDED Status: Active Protocol: Document 05/21/21 10:26 AB (Rec: 05/21/21 12:05 [email or web address]) Physical Therapy Current Condition Current Condition Evaluation Date 05/21/21 Treatment Diagnosis nausea/vomiting; difficulty in walking Onset Date 05/18/21 Precautions Other Precautions BP M3 PT-IP Subjective Start: 05/21/21 11:44 Freq: NEEDED Status: Active Protocol: Document 05/21/21 10:26 AB (Rec: 05/21/21 12:05 [email or web address]) Subjective Physical Therapy Visit Type Type Initial Evaluation Visit Start Time 10:26 Visit Stop Time 10:56 Total Visit Minutes 30 Number of FORGE OPERATOR HELPER Visits 0 Physical Therapy Visit Comments Patient Comments pt is agreeable to do PT Therapy Pain Assessment Pain When Pain Assessed At Rest Pain Present Pain Present Pain Reported Location Bilateral Shoulder Scale Used pain scale not stated Pain Management Techniques Distraction,Modification of Treatment,Re-positioning back Intensity 3 Pain Management Techniques Modification of Treatment,Re- positioning,Timing of Activity with Medications M4 PT-IP Mobility and Gait Start: 05/21/21 11:44 Freq: NEEDED Status: Active Protocol: Document 05/21/21 10:26 AB (Rec: 05/21/21 12:05 [email or web address]) PT-Bed Mobility Assessment Supine to Sit Supine to Sit Independent Sit to Supine Sit to Supine Independent PT-Transfer Assessment Sit to and From Stand Sit to and from Stand Standby Assistance Equipment Transfer Assistive Device Gait Belt,Front Wheeled Walker Orthotic/Prosthetic Devices or Brace: No Transfers Transfer Destination Bed,Chair Transfer Technique Stand Step Pivot Transfer Ability Level of Assist Standby Assistance,Use of Upper Extremities Comments Mobility Comments pt sitting on chair and agreeable to do PT. BP: 170/ 110. checked again : 157/105. pt agreed to do some mobility with PT. No c/o dizziness/nausea. completed transfer to bed using FWW SBA and completed sit<>supine mod I. pt ambulated ~ 10 ft using FWW SBA. PT opted not to ambulate pt far due to high BP . pt is steady with ambulation without LOB and pt is very cautious. pt sat back on chair. BP checked: 168/ 101. informed nurse regarding BP. positioned pt on chair. call light and table placed within reach. pt stated that he walked with NAC in the hallway ~ 30 min prior to PT. informed pt regarding current level of function and no PT intervention indicated at this time. Pt agreed. informed pt to ask for nurses's assistance for ambulation in the hallway. Informed nurse that not PT intervention is indicated for pt at this time. Gait Assessment Gait Gait Assistance Required: Standby Assistance Distance (Feet) 10 Able to Maintain Weight Bearing Status Yes During Gait Assistive Devices Assistive Device Gait Belt,Front Wheeled Walker Orthotic/Prosthetic Devices or Brace: No Factors Limiting Gait Function Factors Limiting Gait Function Decreased Activity Tolerance, Poor Balance PT-Balance Assessment Sitting Balance and Reactions Static Sitting Balance Ability Good Dynamic Sitting Balance Ability Good Standing Balance and Reactions Static Standing Balance Ability Fair Dynamic Standing Balance Ability Fair Device Used FWW M5 PT-IP Objective Assessments Start: 05/21/21 11:44 Freq: NEEDED Status: Active Protocol: Document 05/21/21 10:26 AB (Rec: 05/21/21 12:05 AB [email or web address]) Orientation Orientation/Cognition Level of Alertness Alert Orientation Name,Place,Situation Language Function Ability No Deficits Noted Safety Awareness Understands Safety Issues Memory Description No Deficits Noted Gross Range of Motion Lower Extremity ROM Assessment Within Functional Limits Strength Lower Extremity Strength Assessment Within Functional Limits Sensation Assessment Sensation Gross Sensation WNL Muscle Tone Muscle Tone WNL Yes M6 PT-IP Treatment Start: 05/21/21 11:44 Freq: NEEDED Status: Active Protocol: Document 05/21/21 10:26 AB (Rec: 05/21/21 12:05 AB [email or web address]) Physical Therapy Treatment Education Education Provided Safety M7 PT-IP Assessment and Plan Start: 05/21/21 11:44 Freq: NEEDED Status: Active Protocol: Document 05/21/21 10:26 AB (Rec: 05/21/21 12:05 AB [email or web address]) PT Summary Assessment and Plan Potential Rehabilitation Potential Good Status of Condition at Evaluation Stable Summary Impairments Pain,Strength,Bed Mobility, Transfers,Gait,Activity Tolerance Assessment Summary PT eval completed. pt was able to ambulate with NAC in the hallway prior to PT assessment. Pt has increase BP of 170/110 and PT opted not to ambulate pt far for safety reasons but pt was able to ambulate in room using FWW and demonstrated safety with mobility and no LOB. Pt is also very cautious and has good safety awareness. Pt's limitations to mobility is due to high BP and medical issues and not much of a mobility issue and no further PT intervention indicated at this time. nurse informed and understood. Pt may go home when medically stable. Frequency of Treatment Frequency Of Treatment Discharge Precautions Other Precautions BP Recommendations To Nursing Amount of Assist Needed Standby Assistance Discharge Recommendations PT Discharge Recommendations Home with Assistance Transportation Needs at Discharge Private Vehicle
[2021-05-21] MEDS: cloNIDine 0.1 MG TABLET PO ×2 (10:54→20:39)
--- NOTE | 2021-05-21 11:16 | PC.NURSE ---
Assess- We are collecting a 24hour urine specimen per Dr. Beltran. Patient complained of shoulder pain, given oxycodone and helpful. Patient went for a walk with the bicycle inspector and is a one person assist with the walker. He is sitting up in his chair now and comfortable. BP high at 150s/115 this am, given metoprolol and norvasc. Denies pain at present. BS 128 and patient is happy, he may be discharged tomorrow.
[2021-05-21] MEDS: INSULIN LISPRO 100 UNIT/ML 3ML VIAL SUBCUT (11:44)
[2021-05-21] MEDS: TAMSULOSIN 0.4 MG CAPSULE PO (17:41)
[2021-05-21] MEDS: ATORVASTATIN 20 MG TABLET PO (20:39)
[2021-05-22] VITALS (9 sets, daily range): BP systolic 115–157; BP diastolic 78–100; PULSE 68–72; RESP 16–18; TEMP 36.4–37.2; O2SAT 96–98
[2021-05-22] MEDS: ACETAMINOPHEN 325 MG TABLET 650 MG PO (03:09)
[2021-05-22] MEDS: OXYCODONE IR 10 MG TABLET PO ×3 (03:09→12:22)
[2021-05-22] MEDS: ASPIRIN 81 MG CHEW TAB PO (07:57)
[2021-05-22] MEDS: PANTOPRAZOLE DR 40 MG TABLET PO (07:57)
[2021-05-22] MEDS: SODIUM CHLORIDE 0.9% FLUSH 10 ML IV (07:58)
[2021-05-22] MEDS: cloNIDine 0.1 MG TABLET PO (07:58)
[2021-05-22] MEDS: polyethylene glycoL 3350 17 GM POWD.PACK PO (07:58)
[2021-05-22] MEDS: METOPROLOL ER 50 MG TABLET PO (08:02)
[2021-05-22] MEDS: AMLODIPINE 5 MG TABLET 7.5 MG PO (08:02)
[2021-05-22] MEDS: ENOXAPARIN 40 MG/0.4 ML SYRINGE SUBCUT (08:03)
--- NOTE | 2021-05-22 08:06 | PM.PN.1 ---
Subjective Subjective Date Patient Seen: 05/22/21 Time Patient Seen: 08:07 Interval history: Patient did well yesterday without any IV fluids. Slept better overnight. Blood pressure better control with the addition of the amlodipine. Still having intermittent sharp pains in his lower abdomen which is kind of an on and off thing for him. Had a good large bowel movement he says. Was up with physical therapy thought he was doing well did need any specific skilled intervention Blood sugars have remained Well controlled, has had an increase in oral intake Exam Vital Signs (past 8 hours): - 05/22/21 00:13 05/22/21 00:15 05/22/21 07:58 Temperature 97.6 F Pulse Rate 71 68 Respiratory Rate 18 Blood Pressure 142/78 H 157/100 H Pulse Oximetry 98 98 05/22/21 08:02 05/22/21 08:03 Temperature Pulse Rate 68 Respiratory Rate 16 Blood Pressure 157/100 H Pulse Oximetry 97 Oxygen Delivery Method Room Air Oxygen Flow Rate 0 Objective Labs Result Diagrams: 05/20/21 05:05 05/20/21 05:05 [facility] Medical History Cannabis abuse Chronic hepatitis Coronary artery disease involving [place] coronary artery of [place] heart without angina pectoris (~2006) Diabetes type 2, uncontrolled Diverticulosis of large intestine (03/31/12) Essential hypertension Generalized anxiety disorder Kidney stones Mixed hyperlipidemia Paroxysmal A-fib Prostate cancer (~05/2019) Surgical History H/O heart artery stent (~2006) History of angioplasty (~12/2006) Hx of inguinal hernia surgery (~09/20/08) Hx of inguinal hernia surgery (~03/07/14) Status post laminectomy Social History marital status: unmarried,single number of children: 3 household members: none lives independently: Yes caregiver/support person: No housing: house pets and animals: No education level: high school occupational status: other 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 Nausea vomiting etcetera-improved. I think he can probably go home to continue to recover at home. 2. Hypertension-improved with amlodipine this will be continued to discharge. Evaluation for possible carcinoid or pheochromocytoma to be undertaken 3. Diabetes-adequate control Overall patient is improved over his status time of admission. Hot flashes have diminished he is eating better his blood pressure is better etcetera. I think he is okay to go home at this point. I do not believe he will require home health services at this time Note: Greater than 20 minutes was spent evaluating the patient on the floor, including examining the patient, discussing clinical course with clinical and nursing staff, reviewing clinical course in the computer, preparing documentation and writing orders for continued management of care, discussing status with family as appropriate, reviewing plans for the next 24 hours with both patient/family and nursing staff as appropriate. Time Spent With Patient Critical Care time: I spent a total of [] minutes of critical care time on this patient's care today; this time is exclusive of procedural time. Quality VTE Deep Vein Thrombosis/Pulmonary Embolism Present on Admission: No
--- NOTE | 2021-05-22 08:09 | PM.DS.1 ---
History of Present Illness History of Present Illness Date Patient Seen: 05/22/21 Chief complaint: Nausea/vomiting Narrative: 65-year-old male well known to me from multiple previous admissions to the hospital including admissions for the exact same symptoms is now readmitted for persistent nausea vomiting and abdominal pain patient by report cannot keep anything down for the last 2+ days. Patient presented to the [facility] Emergency Department in this state. Evaluation in the ER was pretty unremarkable. His CBC was remarkable for mild anemia and thrombocytopenia which is consistently been present previously. Current hemoglobin hematocrit is actually somewhat improved. Low total white blood cell count, which is not inconsistent with prior numbers either. Chemistries essentially unremarkable, normal electrolytes and renal function. Elevation in transaminases as seen before likely due to his chronic hepatitis C. Given his prior history and prior negative workup on multiple multiple occasions further workup was not undertaken in the ER. He was admitted for symptom control. As suggested above patient has been evaluated previously for this syndrome. He has been seen by GI multiple times. Has had multiple negative labs and imaging studies. 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 Patient has continued to use cannabis despite strong strong recommendations that he discontinue this altogether. Patient does have diabetes in could have a variant of a gastro paresis but this seems atypical for that presentation. Patient could possibly have a cyclic vomiting syndrome on related to cannabis use, but treatment of course is the same other than the suggestion to discontinue cannabis. In addition patient has been treated for prostate cancer. He has had radiation treatment and received Lupron injection. He has struggle mightily with hot flashes ever since Lupron injection. Part of his presentation this time include severe hot flashes followed by chilling followed by hot flashes interfering with his sleep etcetera. It was in this setting that his GI symptoms returned. He basically feels as though he just can not continue in this state and sought help from the hospital at this point. Discharge Providers Provider Date of admission: 05/18/21 14:02 Discharge Date: 05/22/21 Primary care physician: Khang Dowell MD Consults: 05/18/21 14:47 Consult to Discharge Planning Routine Comment: 05/21/21 08:16 Consult to Physical Therapy Evaluate & Treat Comment: Physician Instructions: Evaluate and Treat Discharge provider: Khang Dowell MD Summary Hospital Course Discharge Diagnosis: 1. Hot flashes likely secondary to Lupron 2. Severe abdominal pain with nausea and vomiting, chronic, question cyclic vomiting syndrome versus hyperemesis cannabis syndrome 3. Severe episodic hypertension 4. Diabetes type 2 5. Coronary artery disease, stable this admission 6. Paroxysmal atrial fibrillation, no recurrence this admission 7. Prostate cancer 8. Generalized anxiety disorder 9. Chronic hepatitis C Hospital Course: Patient was admitted to the hospital floor. He persisted with severe hypertension. Clonidine was added to help with his hot flashes that did not seem to make much of a difference with his blood pressure. Eventually amlodipine was added that did seem to help control his blood pressure. Further 24 hours prior to discharge blood pressure was in the 140s systolic and 80-90 diastolic. Hot flashes were improved either with time with rehydration and or with the addition of the clonidine. Still having hot flashes but not as severe or as frequent or is bothersome and not interfering with sleep Patient persists with nausea vomiting and abdominal pain. He had limited oral intake to begin with but as his symptoms quite it down after several days he was able to eat more and actually had a large bowel movement and felt better. He still having some abdominal symptoms which is often the case for him but nothing out of his usual at this point Because of his episodic hypertension, evaluation for possible pheochromocytoma or perhaps carcinoid syndrome was initiated Patient was evaluated by Physical therapy do not feel like he needed any skilled therapies upon discharge Diabetes was well managed in part because of limited oral intake Patient will be discharged home to continue a diabetic diet, and his usual medications with the addition of amlodipine Status at Discharge Cognitive/behavioral status at discharge: at baseline, oriented Functional status at discharge: independent ambulation Overall status at discharge: patient is progressing back to baseline Exam Vital Signs (past 8 hours): - 05/22/21 00:13 05/22/21 00:15 05/22/21 07:58 Temperature 97.6 F Pulse Rate 71 68 Respiratory Rate 18 Blood Pressure 142/78 H 157/100 H Pulse Oximetry 98 98 05/22/21 08:02 05/22/21 08:03 Temperature Pulse Rate 68 Respiratory Rate 16 Blood Pressure 157/100 H Pulse Oximetry 97 Oxygen Delivery Method Room Air Oxygen Flow Rate 0 Objective Labs Result Diagrams: 05/20/21 05:05 05/20/21 05:05 [facility] Medical History Cannabis abuse Chronic hepatitis Coronary artery disease involving [place] coronary artery of [place] heart without angina pectoris (~2006) Diabetes type 2, uncontrolled Diverticulosis of large intestine (03/31/12) Essential hypertension Generalized anxiety disorder Kidney stones Mixed hyperlipidemia Paroxysmal A-fib Prostate cancer (~05/2019) Surgical History H/O heart artery stent (~2006) History of angioplasty (~12/2006) Hx of inguinal hernia surgery (~09/20/08) Hx of inguinal hernia surgery (~03/07/14) Status post laminectomy Social History marital status: unmarried,single number of children: 3 household members: none lives independently: Yes caregiver/support person: No housing: house pets and animals: No education level: high school occupational status: other 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/judaism: None leisure activities: music, fishing and other Smoking Status: Never smoker Tobacco: How many years used: 56 Smokeless tobacco user: other quit status: has quit before second hand exposure: Yes (On farmland/Boat.) alcohol intake: former substance use type: does not use and marijuana eating out: rarely or never Type(s) of exercise: normal ROM and activity and additional Discharge Assessment & Plan Assessment and Plan Plan of Treatment: Patient will start amlodipine 7.5 mg daily in addition all of his other medications Patient was slowly advanced his diet to more complex foods Patient will continue his usual medications which include antiemetics Patient is advised to discontinue any use of cannabis over the concerns of possible hyperemesis cannabis syndrome. This is been reiterated to him several times Patient be seen in the outpatient clinic by Dr. Dowell in approximately 10-14 days time Discharge Plan Discharge Plan Patient Disposition: Home Discharge orders & Medications Prescriptions: New amlodipine 5 mg tablet 7.5 mg PO DAILY Qty: 45 RF: 3 clonidine HCl 0.1 mg Tablet 0.1 mg PO BID Qty: 60 RF: 3 Continued simvastatin 40 mg tablet 40 mg PO QPM Qty: 90 RF: 1 omeprazole 40 mg capsule,delayed release(DR/EC) 40 mg PO BID Qty: 180 RF: 1 ondansetron 4 mg tablet,disintegrating 4 mg PO Q6H PRN (Reason: Nausea) Qty: 30 RF: 3 metformin 500 mg tablet 500 mg PO BID Qty: 180 RF: 1 metoprolol succinate 50 mg tablet extended release 24 hr 50 mg PO BID RF: 0 cyclobenzaprine 5 mg tablet 5 mg PO TID PRN (Reason: Spasms) Qty: 60 RF: 0 aspirin 81 mg Tablet,Chewable 81 mg PO QAM RF: 0 polyethylene glycol 3350 [Miralax] 17 gram Powder In Packet 17 g PO QAM RF: 0 tamsulosin 0.4 mg capsule 0.4 mg PO QPM RF: 0 promethazine 25 mg suppository 25 mg AZ Q4-6H PRN (Reason: nausea and vomiting) Qty: 12 RF: 0 No Action oxycodone 5 mg tablet 10 mg PO Q4H PRN (Reason: pain) Qty: 360 RF: 0 Medication counseling provided by Pharmacist: Yes Follow up/Referrals: Khang Dowell MD [Primary Care Provider] - 06/02/21 2:00 pm (appt:06/02 @ 2:00 w/dr dowell please arrive 15 min prior to scheduled appointment time) Discharge Health Status Multidrug resistant organism: No MDRO Diet/Activity/Treatments Diet: Diet as Tolerated and Carb-consistent/Diabetic Visit Report/Discharge Packet Instructions: DI for Prescription Opioid Use Discharge Data Primary Care Provider: Khang Dowell Quality VTE Deep Vein Thrombosis/Pulmonary Embolism Present on Admission: No
[2021-05-22] MEDS: INSULIN LISPRO 100 UNIT/ML 3ML VIAL SUBCUT ×2 (08:17→12:18)
--- NOTE | 2021-05-22 14:39 | PC.NURSE ---
A&Ox4. VSS aside from HTN. BP 157/100, came down to 115/82 after BP medication administration this AM. Pain 6/10 in low back and bilateral upper extremities. Takes PRN oxycodone q4 hours, which he also has been taking at home, which bring pain down to a 3/10. Nausea is down and patient did not vomit this shift. IV removed. Discharge paperwork gone over with patient and certified social workers in health care. Wheeled off of unit at 14:35. activities concierge driving him home.
[2021-05-25 12:46] LABS: Creatinine, 24 Urine 830 mg/24 hr (1000-2000); Dopamine, Ur 24hr 207 ug/24 hr (0-510); Epinephrine, U 24hr 12 ug/24 hr (0-20); Norepinephrine Ur 24hr 38 ug/24 hr (0-135)
[2021-05-25 16:14] LABS: Normetanephrine Total 375 ug/24 hr (156-729); Urine, Metanephrine 104 ug/L (Undefined); Urine, Normetanephrine 190 ug/L (Undefined)
[2021-06-02 07:09] LABS: 5-HIAA, UR 24HR 5.5 mg/24 hr (0.0-14.9); 5-HIAA, Urine 2.8 mg/L (Undefined); Creatinine Urine 41.5 mg/dL (Not Estab.)
== END 2021-05-22 14:35 | disposition home or self-care (01) | DRG 392 ==
LOC: ED 13:59 → AC 05-19 08:57
PROVIDERS: Admitting Provider Internal Medicine; Emergency Provider Emergency Medicine; PCP Internal Medicine; Referring Provider Emergency Medicine; Visit Provider Internal Medicine
DX: R11.2 Nausea with vomiting, unspecified (principal); R10.84 Generalized abdominal pain; E11.9 Type 2 diabetes mellitus without complications; I25.10 Atherosclerotic heart disease of native coronary artery without angina pectoris; I10 Essential (primary) hypertension; I48.0 Paroxysmal atrial fibrillation; R23.2 Flushing; E78.5 Hyperlipidemia, unspecified; C61 Malignant neoplasm of prostate; F12.929 Cannabis use, unspecified with intoxication, unspecified; R11.15 Cyclical vomiting syndrome unrelated to migraine; Z79.84 Long term (current) use of oral hypoglycemic drugs; Z20.822 Contact with and (suspected) exposure to COVID-19; Z95.5 Presence of coronary angioplasty implant and graft
CPT/HCPCS: 36415; 80048; 80053; 81003; 82384; 82550; 82570; 82962; 83497; 83605; 83690; 83835; 84145; 84484; 85025; 87635; 93005; 94760; 96361; 96374; 96375; 97161; 99222; 99232; 99238; 99284; C9803; J1170; J1650; J1815; J2060; J2405; J7050

== ENCOUNTER → 2021-06-02 13:13 | Outpatient (CLI) | payer OTHER, SELFPAY ==
[2021-05-18 15:10] VITALS: BMI 19.9
[2021-06-02 15:09] LABS: Prostate Specific Antigen 1.16 ng/mL (0.10-4.00)
== END ==
PROVIDERS: PCP Internal Medicine; Referring Provider Radiology Radiation Oncology; Visit Provider Radiology Radiation Oncology
DX: C61 Malignant neoplasm of prostate (principal)
CPT/HCPCS: 36415; 84153

== ENCOUNTER 2021-06-29 09:03 | Observation (INO) | payer OTHER, SELFPAY ==
[2021-05-18 15:10] VITALS: BMI 19.9
[2021-06-29] VITALS (43 sets, daily range): BP systolic 180–239; BP diastolic 97–131; PULSE 63–82; RESP 8–45; TEMP 36–37.1; O2SAT 87–100; BMI 21.4
--- NOTE | 2021-06-29 09:09 | DI.RAD.S_ITS ---
PROCEDURE: XR CHEST 1V INDICATIONS: suspected sepsis TECHNIQUE: One view of the chest was acquired. COMPARISON: [facility], CR, XR CHEST 1V, 02/28/2021, 16:17. FINDINGS: Surgical changes and devices: None. Lungs and pleura: Lungs are clear. No pleural effusions or pneumothorax. Mediastinum: Mediastinal contours appear normal. Heart size is normal. Bones and chest wall: No suspicious bony lesions. Overlying soft tissues appear unremarkable. IMPRESSION: No acute cardiopulmonary abnormality. Dictated by: Eulogio Perez M.D. on 06/29/2021 at 9:39 Approved by: Eulogio Perez M.D. on 06/29/2021 at 9:40
[2021-06-29] MEDS: ONDANSETRON 4 MG/2 ML INJ IV (09:55)
[2021-06-29] MEDS: SODIUM CHLORIDE 0.9% 1,000 ML 1000 ML IV ×2 (09:55→10:49)
[2021-06-29] MEDS: HYDROMORPHONE 1 MG INJ IV ×2 (09:55→10:52)
[2021-06-29 10:06] LABS: Add Manual Diff / Slide Review NO; Basophils Absolute Auto 0 /uL (0-100); Basophils Percent Auto 0.5 % (0-2); Eosinophils Absolute Auto 0 /uL (0-450); Eosinophils Percent Auto 1.1 % (2-4); Hematocrit 41.5 % (41-53); Hemoglobin 14.5 g/dL (13.5-17.5); Lymphocytes Absolute Auto 800 /uL (1100-4500); Lymphocytes Percent Auto 19.1 % (25-40); Mean Corpuscular HGB Conc 34.9 % (30-36); Mean Corpuscular Hemoglobin 32.1 PG (26-34); Mean Corpuscular Volume 91.8 fL (80-100); Monocytes Absolute Auto 400 /uL (0-900); Monocytes Percent Auto 8.9 % (3-14); Neutrophils Absolute Auto 3100 /uL (1500-7000); Neutrophils Percent Auto 70.4 % (50-75); Platelet Count 128 X10^3/uL (150-400); Red Blood Cell Count 4.52 X10^6/uL (4.5-5.9); Red Cell Distribution Width 12.9 % (11.6-14.8); White Blood Cell Count 4.4 X10^3/uL (4.5-11.0)
[2021-06-29 10:11] LABS: INR 1.1 (0.9-1.3); Prothrombin Time 12.1 SECONDS (10.1-12.7)
[2021-06-29 10:14] LABS: PTT Partial Thromboplastin Tim 31 SECONDS (26.4-36.2)
[2021-06-29 10:15] LABS: Alanine Aminotransferase 119 IU/L (<50); Albumin 4.8 g/dL (3.5-5.0); Albumin Globulin Ratio 1.3 (1.0-2.8); Alkaline Phosphatase 120 U/L (38-126); Aspartate Aminotransferase 85 IU/L (17-59); BUN Creatinine Ratio 30.8 (6-22); Bilirubin Total 0.8 mg/dL (0.2-1.3); Blood Urea Nitrogen 20 mg/dL (9-20); Calcium 10.3 mg/dL (8.4-10.2); Carbon Dioxide 22 mmol/L (22-32); Chloride 107 mmol/L (98-107); Estimated Glomerular Filt Rate > 60.0 mL/min (>60); Globulin 3.7 g/dL (1.7-4.1); Glucose 196 mg/dL (80-110); HEMOLYSIS 29 (0-50); Lipase 75 U/L (23-300); Potassium 3.9 mmol/L (3.4-5.1); Sodium 141 mmol/L (137-145); Total Protein 8.5 g/dL (6.3-8.2)
[2021-06-29 10:19] LABS: Lactate (Lactic Acid) 1.8 mmol/L (0.7-2.1)
--- NOTE | 2021-06-29 10:26 | ED.WEAKNESS ---
HPI - Weakness General Chief complaint: Weakness Stated complaint: Weakness Time Seen by Provider: 06/29/21 09:14 Source: patient and EMS Mode of arrival: EMS History of Present Illness HPI Narrative: Patient is a 65-year-old male well known to this facility and myself presenting with abdominal pain and night sweats. History of prostate cancer taking Lupron this frequently happens to him. He has pain over he vomited once this morning. He was recently admitted to the hospital started on clonidine and amlodipine blood pressure control he was unable to take blood pressure medication this morning due to nausea and pain. Currently hypertensive. This presentation similar multiple previous presentations. He complains of pain and nausea generalized weakness. Who was admitted to the hospital last month for similar presentation. He has had 2 outpatient follow-up visits he has home healthcare are ready in place. Related Data Home Medications Medication Instructions Recorded Confirmed tamsulosin 0.4 mg capsule 0.4 mg PO QPM 08/15/19 06/29/21 aspirin 81 mg chewable tablet 81 mg PO QAM 11/06/19 06/29/21 metoprolol succinate 50 mg 50 mg PO BID tab 03/13/21 06/29/21 tablet,extended release 24 hr sennosides 8.6 mg tablet (senna) 8.6 mg PO DAILY 06/29/21 06/29/21 Previous Rx's Medication Instructions Recorded promethazine 25 mg rectal 25 mg ID Q4-6H PRN #12 ea 11/18/20 suppository simvastatin 40 mg tablet 40 mg PO QPM #90 tab 02/11/21 cyclobenzaprine 5 mg tablet 5 mg PO TID PRN #60 tab 02/13/21 omeprazole 40 mg capsule,delayed 40 mg PO BID #180 cap 02/24/21 release ondansetron 4 mg disintegrating 4 mg PO Q6H PRN #30 tab 03/11/21 tablet metformin 500 mg tablet 500 mg PO BID #180 tab 05/19/21 clonidine HCl 0.1 mg tablet 0.1 mg PO BID #60 tab 05/22/21 oxycodone 5 mg tablet 10 mg PO Q4H PRN #360 tab 06/22/21 Allergies Allergy/AdvReac Type Severity Reaction Status Date / Time No Known Drug Allergies Allergy Verified 06/16/21 09:18 Review of Systems Review of Systems ROS Unobtainable: All systems reviewed & are unremarkable except as noted in HPI and below Constitutional Constitutional: Reports body ache(s), Reports excessive sweating, Reports fatigue and Reports lethargy ENT Ears, Nose, Mouth, and Throat: Denies vertigo, Denies dizziness and Reports dry mouth Cardiovascular Cardiovascular: Denies chest pain, Reports diaphoresis, Denies syncope, Denies irregular heart rhythm and Denies dyspnea on exertion Respiratory Respiratory: Denies chest congestion, Denies cough and Denies dyspnea on exertion Gastrointestinal Gastrointestinal: Reports abdominal pain, Reports nausea and Reports vomiting (x1) Genitourinary Genitourinary: Denies urinary frequency and Denies urinary hesitancy Musculoskeletal Musculoskeletal: Reports myalgias Integumentary/Breasts Skin/Breast: Denies pruritus and Denies rash Neurologic Neurologic: Denies vertigo, Denies dizziness and Denies syncope Endocrine Endocrine: Reports excessive sweating and Reports fatigue Patient History Medical History Cannabis abuse Chronic hepatitis Coronary artery disease involving [place] coronary artery of [place] heart without angina pectoris (~2006) Diabetes type 2, uncontrolled Diverticulosis of large intestine (03/31/12) Essential hypertension Generalized anxiety disorder Kidney stones Mixed hyperlipidemia Paroxysmal A-fib Prostate cancer (~05/2019) Surgical History H/O heart artery stent (~2006) History of angioplasty (~12/2006) Hx of inguinal hernia surgery (~09/20/08) Hx of inguinal hernia surgery (~03/07/14) Status post laminectomy Social History marital status: unmarried,single number of children: 3 household members: none lives independently: Yes caregiver/support person: No housing: house pets and animals: No education level: high school occupational status: other 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.) alcohol intake: former substance use type: does not use and marijuana eating out: rarely or never Type(s) of exercise: normal ROM and activity and additional Smoking Status: Never smoker alcohol intake frequency: a few times a week Alcohol type: beer Substance Use Type: marijuana Exam Initial Vital Signs Initial Vital Signs: Vital Signs Pulse Rate 71 06/29/21 09:07 Respiratory Rate 34 H 06/29/21 09:07 Blood Pressure 230/117 H 06/29/21 09:07 Pulse Oximetry 100 06/29/21 09:07 GENERAL: Chronically ill-appearing 65-year-old male HEENT: Head atraumatic,EOMI, pupils reactive, face symmetric, slightly dry mucous membranes CARDIOVASCULAR: Regular rate and rhythm without murmurs, rubs or gallops. RESPIRATORY: Breath sounds equal bilaterally, no wheezes rales or rhonchi. ABDOMEN: Soft, nontender. Normoactive bowel sounds all 4 quadrants. No guarding or rebound. EXTREMITIES: Normal range of motion, no clubbing or edema. Neurovascularly intact NEUROLOGICAL: Alert and oriented x4.Normal gait and speech. Moving all extremities SKIN: Warm, dry, no laceration, no petechiae, no rashes or lesions. Course Orders Ordered: ED Orders 06/29/21 10:56 Urinalysis and Microscopic Stat 06/29/21 12:00 Consult to ELEMENTARY CLASSROOM TEACHER - Industrial Chemist Stat Acetaminophen (Acetaminophen 325 Mg Tablet) 650 mg PO Q6HR PRN PRN Reason: Fever/Mild Pain (1-3) Aspirin (Aspirin 81 Mg Chew Tab) 81 mg PO DAILY [facility] Atorvastatin Calcium (Atorvastatin 20 Mg Tablet) 20 mg PO QPM [facility] Last Admin: 06/29/21 17:31 Dose: 20 mg Documented by: LUDA Clonidine HCl (Clonidine 0.1 Mg Tablet) 0.2 mg PO BID [facility] Dextrose (Dextrose 50 % In Water 25 Gm/50 Ml Syringe) 25 gm IV PRN PRN PRN Reason: Hypoglycemia Enoxaparin Sodium (Enoxaparin 40 Mg/0.4 Ml Syringe) 40 mg SUBCUT DAILY [facility] Sodium Chloride (Normal Saline 0.45%) 1,000 mls @ 100 mls/hr IV CONT [facility] Last Admin: 06/29/21 17:29 Dose: 100 mls/hr Documented by: LUDA Insulin Human Lispro (Insulin Lispro 100 Unit/Ml 3ml Vial) 0 unit SUBCUT ACHS [facility]; Protocol Last Admin: 06/29/21 17:42 Dose: 2 unit Documented by: LUDA Cosigned by: DIVINA Metoprolol Succinate (Metoprolol Er 50 Mg Tablet) 50 mg PO BID [facility] Naloxone HCl (Naloxone 0.4 Mg/Ml Vial) 0.2 mg IV Q2MIN PRN PRN Reason: Opiate Reversal Nitroglycerin (Nitroglycerin Oint 1 Inch/Gm Oint...G.) 1 inch TOP Q4H [facility] Last Admin: 06/29/21 17:32 Dose: 1 inch Documented by: LUDA Ondansetron HCl (Ondansetron 4 Mg/2 Ml Inj) 4 mg IV Q8HR PRN PRN Reason: Nausea And Vomiting Oxycodone HCl (Oxycodone Ir 5 Mg Tablet) 10 mg PO Q4H PRN PRN Reason: pain Last Admin: 06/29/21 17:31 Dose: 10 mg Documented by: LUDA Pantoprazole Sodium (Pantoprazole Dr 40 Mg Tablet) 40 mg PO 0700,2100 [facility] Polyethylene Glycol (Polyethylene Glycol 3350 17 Gm Powd.Pack) 17 gm PO DAILY [facility] Tamsulosin HCl (Tamsulosin 0.4 Mg Capsule) 0.4 mg PO QPM [facility] Last Admin: 06/29/21 17:32 Dose: 0.4 mg Documented by: LUDA Discontinued Medications Clonidine HCl (Clonidine 0.1 Mg Tablet) 0.1 mg PO NOW ONE Stop: 06/29/21 12:10 Last Admin: 06/29/21 12:27 Dose: 0.1 mg Documented by: ANDREW Clonidine HCl (Clonidine 0.1 Mg Tablet) 0.1 mg PO BID [facility] Hydromorphone HCl (Hydromorphone 1 Mg Inj) 1 mg IV NOW ONE Stop: 06/29/21 09:51 Last Admin: 06/29/21 09:55 Dose: 1 mg Documented by: CHRISTA Hydromorphone HCl (Hydromorphone 1 Mg Inj) 1 mg IV NOW ONE Stop: 06/29/21 10:43 Last Admin: 06/29/21 10:52 Dose: 1 mg Documented by: CHRISTA Sodium Chloride (Normal Saline 0.9%) 1,000 mls @ 1,000 mls/hr IV BOLUS ONE Stop: 06/29/21 10:08 Last Infusion: 06/29/21 10:52 Dose: 0 mls/hr Documented by: Admin: 06/29/21 09:55 Dose: 1,000 mls/hr Documented by: CHRISTA Sodium Chloride (Normal Saline 0.9%) 1,000 mls @ 1,000 mls/hr IV BOLUS ONE Stop: 06/29/21 11:32 Last Infusion: 06/29/21 12:16 Dose: 1,000 mls/hr Documented by: Infusion: 06/29/21 11:22 Dose: 1,000 mls/hr Documented by: Admin: 06/29/21 10:49 Dose: 1,000 mls/hr Documented by: CHRISTA Labetalol HCl (Labetalol 20 Mg/4 Ml Syringe) 10 mg IV NOW ONE Stop: 06/29/21 10:32 Last Admin: 06/29/21 10:48 Dose: 10 mg Documented by: CHRISTA Lorazepam (Lorazepam 2 Mg/Ml Inj) 1 mg IV NOW ONE Stop: 06/29/21 12:20 Last Admin: 06/29/21 12:26 Dose: 1 mg Documented by: ANDREW Metoclopramide HCl (Metoclopramide 10 Mg/2 Ml Inj) 10 mg IV NOW ONE Stop: 06/29/21 11:10 Last Admin: 06/29/21 11:20 Dose: 10 mg Documented by: CHRISTA Metoprolol Succinate (Metoprolol Er 50 Mg Tablet) 50 mg PO NOW ONE Stop: 06/29/21 12:09 Last Admin: 06/29/21 12:34 Dose: 50 mg Documented by: ANDREW Ondansetron HCl (Ondansetron 4 Mg/2 Ml Inj) 4 mg IV NOW ONE Stop: 06/29/21 09:26 Last Admin: 06/29/21 09:55 Dose: 4 mg Documented by: CHRISTA Pantoprazole Sodium (Pantoprazole 40 Mg Vial) 40 mg IV NOW ONE Stop: 06/29/21 11:10 Last Admin: 06/29/21 11:20 Dose: 40 mg Documented by: CHRISTA Vital Signs Vital signs: Vital Signs - 8 hr 06/29/21 11:15 06/29/21 11:30 06/29/21 11:45 Pulse Rate 79 73 66 Respiratory Rate 28 H 22 28 H Blood Pressure 214/131 H 209/101 H 209/109 H Pulse Oximetry 99 98 99 06/29/21 12:00 06/29/21 12:06 06/29/21 12:15 Pulse Rate 74 74 75 Respiratory Rate 9 L 18 17 Blood Pressure 212/108 H 204/118 H 229/107 H Pulse Oximetry 100 87 L 100 06/29/21 12:16 06/29/21 12:27 06/29/21 12:30 Pulse Rate 77 80 76 Respiratory Rate 15 Blood Pressure 204/118 H 229/107 H 218/116 H Pulse Oximetry 99 06/29/21 12:34 06/29/21 12:45 06/29/21 12:46 Pulse Rate 69 68 73 Respiratory Rate 25 H 28 H Blood Pressure 218/116 H 238/116 H Pulse Oximetry 97 97 06/29/21 13:00 06/29/21 13:01 06/29/21 13:15 Pulse Rate 75 79 82 Respiratory Rate 12 16 20 Blood Pressure 199/105 H 192/107 H Pulse Oximetry 99 98 97 06/29/21 13:30 06/29/21 13:31 06/29/21 13:38 Pulse Rate 68 79 78 Respiratory Rate 9 L 8 L Blood Pressure 239/115 H 239/116 H Pulse Oximetry 99 100 06/29/21 13:45 06/29/21 14:00 06/29/21 14:15 Pulse Rate 71 70 68 Respiratory Rate 19 19 17 Blood Pressure 218/113 H 211/109 H 209/97 H Pulse Oximetry 98 97 98 06/29/21 14:30 Pulse Rate 74 Respiratory Rate 13 Blood Pressure 188/98 H Pulse Oximetry 99 MDM - Weakness Lab Data Result diagrams: 06/29/21 09:45 06/29/21 09:45 Labs: Lab Results 06/29/21 06/29/21 06/29/21 Range/Units 09:45 09:45 09:45 WBC 4.4 L (4.5-11.0) X10^3/uL RBC 4.52 (4.5-5.9) X10^6/uL Hgb 14.5 (13.5-17.5) g/dL Hct 41.5 (41-53) % MCV 91.8 (80-100) fL MCH 32.1 (26-34) PG MCHC 34.9 (30-36) % RDW 12.9 (11.6-14.8) % Plt Count 128 L (150-400) X10^3/uL Neut % (Auto) 70.4 (50-75) % Lymph % (Auto) 19.1 L (25-40) % [place] % (Auto) 8.9 (3-14) % Eos % (Auto) 1.1 L (2-4) % Baso % (Auto) 0.5 (0-2) % Neut # (Auto) 3100 (9929-2991) /uL Lymph # (Auto) 800 L (7187-1727) /uL [place] # (Auto) 400 (0-900) /uL Eos # (Auto) 0 (0-450) /uL Baso # (Auto) 0 (0-100) /uL PT (10.1-12.7) SECONDS INR (0.9-1.3) APTT (26.4-36.2) SECONDS Sodium 141 (137-145) mmol/L Potassium 3.9 (3.4-5.1) mmol/L Chloride 107 (98-107) mmol/L Carbon Dioxide 22 (22-32) mmol/L BUN 20 (9-20) mg/dL Creatinine 0.65 L (0.66-1.25) mg/dL Estimated GFR > 60.0 (>60) mL/min BUN/Creatinine Ratio 30.8 H (6-22) Glucose 196 H (80-110) mg/dL Lactate 1.8 (0.7-2.1) mmol/L Calcium 10.3 H (8.4-10.2) mg/dL Total Bilirubin 0.8 (0.2-1.3) mg/dL AST 85 H (17-59) IU/L ALT 119 H (<50) IU/L Alkaline Phosphatase 120 (38-126) U/L Total Protein 8.5 H (6.3-8.2) g/dL Albumin 4.8 (3.5-5.0) g/dL Globulin 3.7 (1.7-4.1) g/dL Albumin/Globulin Ratio 1.3 (1.0-2.8) Lipase 75 (23-300) U/L Procalcitonin 0.10 (<0.5) ng/mL Urine Color Urine Appearance Urine pH (4.5-8.0) Ur Specific [place] (1.000-1.035) Urine Protein (Negative) Urine Glucose (UA) (Negative) g/dL Urine Ketones (NEGATIVE) Urine Occult Blood (Negative) Urine Nitrate (Negative) Urine Bilirubin (NEGATIVE) Urine Urobilinogen (0.2) E.U./dL Ur Leukocyte Esterase (NEGATIVE) Urine RBC (0-5/HPF) Urine WBC (0-5/HPF) Urine Bacteria (None) Ur Culture Indicated? Micro UA Comment SARS-CoV-2 (PCR) (Negative) 06/29/21 06/29/21 06/29/21 Range/Units 09:45 10:00 10:56 WBC (4.5-11.0) X10^3/uL RBC (4.5-5.9) X10^6/uL Hgb (13.5-17.5) g/dL Hct (41-53) % MCV (80-100) fL MCH (26-34) PG MCHC (30-36) % RDW (11.6-14.8) % Plt Count (150-400) X10^3/uL Neut % (Auto) (50-75) % Lymph % (Auto) (25-40) % [place] % (Auto) (3-14) % Eos % (Auto) (2-4) % Baso % (Auto) (0-2) % Neut # (Auto) (8993-9932) /uL Lymph # (Auto) (6136-0796) /uL [place] # (Auto) (0-900) /uL Eos # (Auto) (0-450) /uL Baso # (Auto) (0-100) /uL PT 12.1 (10.1-12.7) SECONDS INR 1.1 (0.9-1.3) APTT 31 D (26.4-36.2) SECONDS Sodium (137-145) mmol/L Potassium (3.4-5.1) mmol/L Chloride (98-107) mmol/L Carbon Dioxide (22-32) mmol/L BUN (9-20) mg/dL Creatinine (0.66-1.25) mg/dL Estimated GFR (>60) mL/min BUN/Creatinine Ratio (6-22) Glucose (80-110) mg/dL Lactate (0.7-2.1) mmol/L Calcium (8.4-10.2) mg/dL Total Bilirubin (0.2-1.3) mg/dL AST (17-59) IU/L ALT (<50) IU/L Alkaline Phosphatase (38-126) U/L Total Protein (6.3-8.2) g/dL Albumin (3.5-5.0) g/dL Globulin (1.7-4.1) g/dL Albumin/Globulin Ratio (1.0-2.8) Lipase (23-300) U/L Procalcitonin (<0.5) ng/mL Urine Color Yellow Urine Appearance Clear Urine pH 7.0 (4.5-8.0) Ur Specific [place] 1.020 (1.000-1.035) Urine Protein Negative (Negative) Urine Glucose (UA) Trace H (Negative) g/dL Urine Ketones 1+ H (NEGATIVE) Urine Occult Blood Negative (Negative) Urine Nitrate Negative (Negative) Urine Bilirubin Negative (NEGATIVE) Urine Urobilinogen 0.2 (0.2) E.U./dL Ur Leukocyte Esterase Negative (NEGATIVE) Urine RBC None seen (0-5/HPF) Urine WBC None seen (0-5/HPF) Urine Bacteria None seen (None) Ur Culture Indicated? Cult not indicated Micro UA Comment Microscopic normal SARS-CoV-2 (PCR) Negative (Negative) ECG Data Interpretation: Normal sinus rhythm rate 65 ID interval 160 QRS [address] changes or T-wave inversions similar to previous EKG slightly tall T-waves in precordial leads present previously. MDM Narrative Medical decision making narrative: Is noted to have hyper tension in the ED. He is given pain medications and labetalol. He also was given his oral medications, this is similar to his previous presentation as well. Patient requested to fill out a POLST form so I went over that with him as well. Discussed with him the goals of care. It does not seem that the medical community is able to do much more for him of. Apparently when he gets these flares he gets to be really bad however between flares he does okay. Supposedly the Lupron should be decreasing in his system and these night sweats should start to stop. The patient is overall generally weak, hypertensive is continues to have pain. Dr. Vasques obtain patient's symptoms test results and agrees with observation. Discharge Plan Departure Patient Disposition: Admitted as Observation Clinical Impression: Hypertension Admit Date/Time: 06/29/21 14:34 Admit Provider: Khang Vasques
[2021-06-29] MEDS: LABETALOL 20 MG/4 ML SYRINGE 10 MG IV (10:48)
[2021-06-29 10:56] LABS: COVID19 - ADMIT (NP swab/PCR) Negative (Negative)
[2021-06-29] MEDS: PANTOPRAZOLE 40 MG VIAL IV (11:20)
[2021-06-29] MEDS: METOCLOPRAMIDE 10 MG/2 ML INJ IV (11:20)
[2021-06-29 11:28] LABS: Appearance Urine UA CLEAR; Bilirubin Urine UA NEGATIVE (NEGATIVE); Color Urine UA YELLOW; Glucose Urine UA TRACE g/dL (Negative); Ketones Urine UA 1+ (NEGATIVE); Leukocyte Esterase Urine UA NEGATIVE (NEGATIVE); Nitrite Urine UA NEGATIVE (Negative); Occult Blood Urine UA NEGATIVE (Negative); Protein Urine UA NEGATIVE (Negative); Urobilinogen Urine UA 0.2 E.U./dL (0.2)
[2021-06-29 11:33] LABS: Bacteria Urine None Seen; Culture Indicated Urine Cult Not Indicated; RBC Urine None Seen (0-5/HPF); Urine Comments Microscopic Normal; WBC Urine None Seen (0-5/HPF)
[2021-06-29] MEDS: LORazepam 2 MG/ML INJ 1 MG IV (12:26)
[2021-06-29] MEDS: cloNIDine 0.1 MG TABLET PO (12:27)
[2021-06-29] MEDS: METOPROLOL ER 50 MG TABLET PO ×2 (12:34→20:06)
--- NOTE | 2021-06-29 12:42 | CM.SWNOTE ---
Addendum entered by Hawa Mcneal 06/29/21 14:32: BELT REPAIRER Note BELT REPAIRER enters room and provides patient and caregiver with further information about Hospice and provides brochure and senior resource guide. Patient and caregiver decline anything further and decline f/u phone call from BELT REPAIRER. It is reported that patient filled out POLST form and ED provider Dr. Recinos has the form. It was reported that PCP Dr. Vasques will be contacted by ED provider regarding patient's ED encounter. Patient is currently pending admission to . Plan: DCP to f/u with POC for patient needs. JAYME Stewart Original Note: BELT REPAIRER Assessment Note Patient is 65 y/o male who presents to the ED with concern for night sweats and hot flashes from his prescribed medication. Patient has history of Diabetes type 2, cannabis use, Prostate cancer, generalized anxiety disorder and Paroxysmal A-fib. Patient presents with family friend/caregiver Lisandra. Patient endorses he has [employer]vantage insurance. Patient is A/Ox4 and states his discomfort. Patient endorses he has poor sleep, and did not get any sleep last night. Lisandra endorses that patient also gets high blood pressure. 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 Patient endorses that Lisandra is his caregiver and comes to the house to check on him 4 days a week, patient denies any other close friends or relatives. Patient had recent HH referrals in place from [facility] [place] [facility] with OT and PT. Patient declines further HH services and endorses that he does fine with ADLs and independently walking at home. Patient and Lisandra discuss patient's regular ongoing appts with Onocologist, Urologist, Manager [employer] and PCP Dr. Vasques. It is reported that patient has a f/u appt with his crate icer in July, f/u with Oncologist in a few months, Urologist in 3 months and a PCP appt scheduled with Dr. Vasques for 08/18/21. It is reported that patient sees Dr. Vasques monthly and just saw him a few weeks ago. It is reported that patient is no undergoing chemotherapy but had 44 weeks of radiation and that ended in January 2021. Patient endorses discomfort and states I can't do this when asked further he states I'm toast, I'm done. BELT REPAIRER discusses advance directive and patient agrees that he is DNR and would like to fill out a POLST. Lisandra endorses that he can do it on another date after BELT REPAIRER brings the form in. BELT REPAIRER discusses Hospice and Lisandra declines for patient and patient states nothing. Lisandra states that they are not interested in Hospice, this is not going to kill him. Patient and Lisandra decline anything further in regards to supports and resources at home, BELT REPAIRER endorses BELT REPAIRER will check in again prior to patient's d/c to home. Plan: BELT REPAIRER to f/u up with patient and caregiver prior to d/c to home and provide senior resource guide and hospice pamphlet and provide further information. Patient to d/c to home when medically clear. Hawa Mcneal BELT REPAIRER
--- NOTE | 2021-06-29 14:58 | P.HP_ITS ---
History of Present Illness History of Present Illness Date Patient Seen: 06/29/21 Time Patient Seen: 14:58 Chief complaint: Weakness Narrative: 65-year-old male well known to me from past history who is admitted by the emergency department because of ongoing weakness abdominal pain emesis x1 night sweats etcetera. Very similar admission to his previous 1 at the end of May. Patient was seen in the clinic less than 2 weeks ago was doing quite well at [facility] with stabilization of his blood pressure and GI symptoms were relatively absent. He reported his night sweats were much improved. Night sweats are on the basis of his hormonal therapy for his prostate cancer with Lupron. Patient had a full workup for possible catecholamine excess during his last admission because of his persistent GI symptoms as well as his episodic hypertension, as seen today. Workup was entirely negative Patient has had full GI evaluation previously as documented previously and no clear abnormalities noted for his ongoing abdominal symptoms. Variably has findings of thickened colonic wall on CT imaging. No evidence of infection or inflammatory colitis is ever been felt to be present. Patient has been felt by GI and by myself to have a hyperemesis cannabis syndrome and I still believe that maybe well as much a part of what is causing patient to present with the symptoms as anything else. At this point there is nothing new or different about his symptoms he seemed just a bit milder than usual. Workup in the emergency department was completely unremarkable. Labs were unremarkable plain chest x-ray unremarkable. No more advanced imaging was ind icated or performed fortunately. Patient refused attempts to suggest he go home and treat this as an outpatient and is admitted for treatment of acute symptoms as well as his elevated blood pressure, although is not at an extreme level once appropriately treated Patient History Medical History Cannabis abuse Chronic hepatitis Coronary artery disease involving [place] coronary artery of [place] heart without angina pectoris (~2006) Diabetes type 2, uncontrolled Diverticulosis of large intestine (03/31/12) Essential hypertension Generalized anxiety disorder Kidney stones Mixed hyperlipidemia Paroxysmal A-fib Prostate cancer (~05/2019) Surgical History H/O heart artery stent (~2006) History of angioplasty (~12/2006) Hx of inguinal hernia surgery (~09/20/08) Hx of inguinal hernia surgery (~03/07/14) Status post laminectomy Family & Social History Social History: household members none lives independently Yes caregiver/support person No Safety & Behavioral: Feels Safe in Current Yes Environment Been Physically Hurt or No Threatened By a Person Tobacco & Substance use: Smoking Status Never smoker alcohol intake former alcohol intake frequency a few times a week Substance Use Type marijuana Meds Home Medications and Allergies Home Medications Medication Instructions Recorded Confirmed Type tamsulosin 0.4 mg capsule 0.4 mg PO QPM 08/15/19 06/29/21 History aspirin 81 mg chewable tablet 81 mg PO QAM 11/06/19 06/29/21 History promethazine 25 mg rectal 25 mg GA Q4-6H PRN #12 ea 11/18/20 06/29/21 Rx suppository simvastatin 40 mg tablet 40 mg PO QPM #90 tab 02/11/21 06/29/21 Rx cyclobenzaprine 5 mg tablet 5 mg PO TID PRN #60 tab 02/13/21 06/29/21 Rx omeprazole 40 mg capsule,delayed 40 mg PO BID #180 cap 02/24/21 06/29/21 Rx release ondansetron 4 mg disintegrating 4 mg PO Q6H PRN #30 tab 03/11/21 06/29/21 Rx tablet metoprolol succinate 50 mg 50 mg PO BID tab 03/13/21 06/29/21 History tablet,extended release 24 hr metformin 500 mg tablet 500 mg PO BID #180 tab 05/19/21 06/29/21 Rx clonidine HCl 0.1 mg tablet 0.1 mg PO BID #60 tab 05/22/21 06/29/21 Rx oxycodone 5 mg tablet 10 mg PO Q4H PRN #360 tab 06/22/21 06/29/21 Rx sennosides 8.6 mg tablet (senna) 8.6 mg PO DAILY 06/29/21 06/29/21 History Allergies Allergy/AdvReac Type Severity Reaction Status Date / Time No Known Drug Allergies Allergy Verified 06/16/21 09:18 Exam Vital Signs (past 8 hours): - 06/29/21 09:07 06/29/21 09:08 06/29/21 09:15 Temperature 98.8 F Pulse Rate 71 71 71 Respiratory Rate 34 H 27 H 9 L Blood Pressure 230/117 H 230/117 H Pulse Oximetry 100 99 99 06/29/21 09:20 06/29/21 09:30 06/29/21 09:45 Temperature 98.1 F Pulse Rate 65 63 64 Respiratory Rate 18 45 H 35 H Blood Pressure 230/117 H 215/114 H Pulse Oximetry 99 98 99 06/29/21 10:00 06/29/21 10:15 06/29/21 10:30 Temperature Pulse Rate 65 67 69 Respiratory Rate 39 H 25 H 40 H Blood Pressure 220/114 H 219/117 H Pulse Oximetry 99 99 99 06/29/21 10:31 06/29/21 10:45 06/29/21 10:48 Temperature Pulse Rate 78 73 75 Respiratory Rate 24 21 Blood Pressure 222/125 H 218/106 H 218/106 H Pulse Oximetry 99 99 06/29/21 11:00 06/29/21 11:15 06/29/21 11:30 Temperature Pulse Rate 67 79 73 Respiratory Rate 12 28 H 22 Blood Pressure 201/117 H 214/131 H 209/101 H Pulse Oximetry 98 99 98 06/29/21 11:45 06/29/21 12:00 06/29/21 12:06 Temperature Pulse Rate 66 74 74 Respiratory Rate 28 H 9 L 18 Blood Pressure 209/109 H 212/108 H 204/118 H Pulse Oximetry 99 100 87 L 06/29/21 12:15 06/29/21 12:16 06/29/21 12:27 Temperature Pulse Rate 75 77 80 Respiratory Rate 17 Blood Pressure 229/107 H 204/118 H 229/107 H Pulse Oximetry 100 06/29/21 12:30 06/29/21 12:34 06/29/21 12:45 Temperature Pulse Rate 76 69 68 Respiratory Rate 15 25 H Blood Pressure 218/116 H 218/116 H Pulse Oximetry 99 97 06/29/21 12:46 06/29/21 13:00 06/29/21 13:01 Temperature Pulse Rate 73 75 79 Respiratory Rate 28 H 12 16 Blood Pressure 238/116 H 199/105 H Pulse Oximetry 97 99 98 06/29/21 13:15 06/29/21 13:30 06/29/21 13:31 Temperature Pulse Rate 82 68 79 Respiratory Rate 20 9 L 8 L Blood Pressure 192/107 H 239/115 H Pulse Oximetry 97 99 100 06/29/21 13:38 06/29/21 13:45 06/29/21 14:00 Temperature Pulse Rate 78 71 70 Respiratory Rate 19 19 Blood Pressure 239/116 H 218/113 H 211/109 H Pulse Oximetry 98 97 06/29/21 14:15 06/29/21 14:30 06/29/21 14:45 Temperature Pulse Rate 68 74 68 Respiratory Rate 17 13 8 L Blood Pressure 209/97 H 188/98 H Pulse Oximetry 98 99 98 Oxygen Delivery Method Room Air Narrative Exam Narrative: Much older than stated age appearing male lying in his hospital bed without a gown (as usual), in no obvious distress HEENT-unremarkable, normocephalic atraumatic Neck-no lymphadenopathy no bruits Lungs-clear anteriorly and posteriorly no wheezes no crackles good breath sounds Heart-regular rate and rhythm, no murmur, rub, or gallop. normal S1-S2 Abdomen-positive bowel tones, soft, nontender, nondistended, no hepatosplenomegaly, no masses palpable Neuro-normal to screening exam, gait not tested Extremities-no cyanosis clubbing or edema Objective Labs Result Diagrams: 06/29/21 09:45 06/29/21 09:45 Labs: Laboratory Results - last 24 hr 06/29/21 06/29/21 06/29/21 09:45 09:45 09:45 WBC 4.4 L RBC 4.52 Hgb 14.5 Hct 41.5 MCV 91.8 MCH 32.1 MCHC 34.9 RDW 12.9 Plt Count 128 L Neut % (Auto) 70.4 Lymph % (Auto) 19.1 L [place] % (Auto) 8.9 Eos % (Auto) 1.1 L Baso % (Auto) 0.5 Neut # (Auto) 3100 Lymph # (Auto) 800 L [place] # (Auto) 400 Eos # (Auto) 0 Baso # (Auto) 0 PT INR APTT Sodium 141 Potassium 3.9 Chloride 107 Carbon Dioxide 22 BUN 20 Creatinine 0.65 L Estimated GFR > 60.0 BUN/Creatinine Ratio 30.8 H Glucose 196 H Lactate 1.8 Calcium 10.3 H Total Bilirubin 0.8 AST 85 H ALT 119 H Alkaline Phosphatase 120 Total Protein 8.5 H Albumin 4.8 Globulin 3.7 Albumin/Globulin Ratio 1.3 Lipase 75 Procalcitonin 0.10 Urine Color Urine Appearance Urine pH Ur Specific [place] Urine Protein Urine Glucose (UA) Urine Ketones Urine Occult Blood Urine Nitrate Urine Bilirubin Urine Urobilinogen Ur Leukocyte Esterase Urine RBC Urine WBC Urine Bacteria Ur Culture Indicated? Micro UA Comment SARS-CoV-2 (PCR) 06/29/21 06/29/21 06/29/21 09:45 10:00 10:56 WBC RBC Hgb Hct MCV MCH MCHC RDW Plt Count Neut % (Auto) Lymph % (Auto) [place] % (Auto) Eos % (Auto) Baso % (Auto) Neut # (Auto) Lymph # (Auto) [place] # (Auto) Eos # (Auto) Baso # (Auto) PT 12.1 INR 1.1 APTT 31 D Sodium Potassium Chloride Carbon Dioxide BUN Creatinine Estimated GFR BUN/Creatinine Ratio Glucose Lactate Calcium Total Bilirubin AST ALT Alkaline Phosphatase Total Protein Albumin Globulin Albumin/Globulin Ratio Lipase Procalcitonin Urine Color Yellow Urine Appearance Clear Urine pH 7.0 Ur Specific [place] 1.020 Urine Protein Negative Urine Glucose (UA) Trace H Urine Ketones 1+ H Urine Occult Blood Negative Urine Nitrate Negative Urine Bilirubin Negative Urine Urobilinogen 0.2 Ur Leukocyte Esterase Negative Urine RBC None seen Urine WBC None seen Urine Bacteria None seen Ur Culture Indicated? Cult not indicated Micro UA Comment Microscopic normal SARS-CoV-2 (PCR) Negative Assessment & Plan Assessment & Plan narrative: 1. Weakness-uncertain as to etiology of patient's symptoms. Will treat his GI symptoms and control his blood pressure and re-evaluate 2. Abdominal symptoms including emesis x1 and abdominal pain-no clear etiology at this point. Believe that there is a cannabis hyperemesis syndrome involved in this at least in part. Patient also has an extremely high level of anxiety and once this sort of process starts it feeds in on itself I am sure. No evidence of any new abnormality based on lab work and no indication for advanced imaging. Parental antiemetics and some IV fluids make sense. I am very resistant to giving patient any parental narcotics and he will have to remain on oral narcotics 3. Hypertension-likely secondary to patient's inability take his usual medications. In addition we have reduced hises hypotension that is symptomatic at home. Again unclear what causes these episodic events that include hypertension. Uncertain to me as to whether the hypertension is a cause for an affect of whatever else is ongoing here. At this point I am going to treat him a topical nitrates in part because of his known coronary disease as well as his usual antihypertensives. Consider adding additional antihypertensives and continuing these now patient despite reported symptoms of dizziness given these recurrent episodes he continues to have over and over again. 4. Hot flashes-secondary to patient's Lupron therapy. I would recommend he not receive any additional Lupron in the future (not received dose for quite some time now at this point). Continue with the clonidine which was marginally effective in least taking the worst of the symptoms away based on his last hospitalization and his report as an outpatient when I saw him on the 16 of June. 5. Diabetes-I am going to hold patient's oral hypoglycemic agents and treat hyperglycemia with insulin at this point. When he is discharged home he likely can return to his usual meds. For now I am going to stick with a carbohydrate c onsistent diet as 1st line of treatment for his diabetes. 6. Coronary disease-no evidence of active coronary disease at this time. 7. Anxiety-patient with high anxiety 99.9% of the time. Been resistant any anti anxiety medications such as an SSRI etcetera. Has sort of responded to lorazepam in the past by in very reluctant to prescribe a benzodiazepine on an ongoing basis for this patient 8. Chronic pain-patient is on oxycodone on a chronic pain basis for multiple arthralgias etcetera. Continue that for now as discontinuation of his narcotics will certainly result in increased GI symptoms. 9. VTE prophylaxis-patient would be appropriate for Lovenox therapy which has been ordered. Also would be appropriate for sequential compression devices which have also been ordered 10. Code status-patient requests no code in the event of sudden cardiac or respiratory arrest which we have talked about on multiple occasions and he is fairly consistent in this. He really is unhappy in his current situation and if he were to have a sudden event such as this would be unlikely that he would survive to return to his previous situation which currently he is unhappy with so I think it makes sense to make him a no code as he requests and that order is written as well 11. Social-unclear to me exactly what patient's home situation is. I have begun to wonder if perhaps there is some psychological stressors that are very active when patients at home as he seems to calm down and we do much better when he was hospitalized here without any specific interventions other than maybe an antiemetic or controlling his blood pressure. He does seem to have sort of a ?dysfunctional ?, home situation, but I can not really nor by ever been able to get him to admit to much more than ?sometimes it is real struggle ?. Perhaps that is playing a role in patient's repeated and multiple hospitalizations and or episodes of his symptoms. May also be playing a role in his continued use of cannabis, which he has been informed is a likely source of his symptoms, yet of course he still continues to use Time Spent With Patient Critical Care time: I spent a total of [] minutes of critical care time on this patient's care today; this time is exclusive of procedural time.
[2021-06-29] MEDS: SODIUM CHLORIDE 0.45% 1,000 ML 100 ML IV (17:29)
[2021-06-29] MEDS: OXYCODONE IR 5 MG TABLET 10 MG PO (17:31)
[2021-06-29] MEDS: ATORVASTATIN 20 MG TABLET PO (17:31)
[2021-06-29] MEDS: NITROGLYCERIN OINT 1 INCH/GM OINT...G. TOP ×2 (17:32→19:56)
[2021-06-29] MEDS: TAMSULOSIN 0.4 MG CAPSULE PO (17:32)
[2021-06-29] MEDS: INSULIN LISPRO 100 UNIT/ML 3ML VIAL SUBCUT ×2 (17:42→20:21)
[2021-06-29] MEDS: cloNIDine 0.1 MG TABLET 0.2 MG PO (20:05)
[2021-06-29] MEDS: PANTOPRAZOLE DR 40 MG TABLET PO (20:12)
[2021-06-30] VITALS (14 sets, daily range): BP systolic 122–176; BP diastolic 70–112; PULSE 58–98; RESP 15–20; TEMP 36.1–36.6; O2SAT 96–99
[2021-06-30] MEDS: OXYCODONE IR 5 MG TABLET 10 MG PO ×5 (00:16→21:14)
[2021-06-30] MEDS: NITROGLYCERIN OINT 1 INCH/GM OINT...G. TOP ×3 (00:17→07:58)
--- NOTE | 2021-06-30 01:53 | PC.NURSE ---
Addendum entered by Janelle Hoyos R.N. 06/30/21 06:35: Tearful this morning. States his stomach is hurting along with pain in lower back and bilateral arms. Medicated with Pantoprazole and oxycodone. States I just can't do this anymore. 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 Talked with him about his home situation, possibly moving to an assisted living vs SNF and/or hospice. Is interested in obtaining more information. Will have day RNGeraldine, discuss hospice consult with MD and order entered for social service consult. Original Note: Patient is alert and oriented but soft spoken and sometimes delayed in responses. Breath sounds diminished but CTA with RA sat of 96%. Admitted with elevated BP but most recent reading was 124/90. Denied nausea. BT present and abdomen is soft. Denies dysuria or urgency with urination; states he sometimes has frequency but has only voided 4 times since admission yesterday. Is able to move himself in bed. Gait not assessed but appears to have generalized weakness and reports he has been unsteady at home and uses either cane or walker to get around; denies having fallen in past 3 months. Is wearing bilateral calf SCDs'. Complained of 7/10 lower back and shoulder pain so was medicated with oxycodone and is now asleep. Skin is warm and moist. Noted scratches on posterior upper left arm. Fall risk score is high and bed alarm is activated.
[2021-06-30] MEDS: ACETAMINOPHEN 325 MG TABLET 650 MG PO ×2 (03:07→10:54)
[2021-06-30] MEDS: SODIUM CHLORIDE 0.45% 1,000 ML 100 ML IV (04:41)
[2021-06-30] MEDS: PANTOPRAZOLE DR 40 MG TABLET PO ×2 (06:19→21:13)
[2021-06-30] MEDS: METOPROLOL ER 50 MG TABLET PO ×2 (07:57→21:12)
[2021-06-30] MEDS: INSULIN LISPRO 100 UNIT/ML 3ML VIAL SUBCUT ×3 (07:58→17:24)
[2021-06-30] MEDS: polyethylene glycoL 3350 17 GM POWD.PACK PO (08:10)
[2021-06-30] MEDS: ENOXAPARIN 40 MG/0.4 ML SYRINGE SUBCUT (08:11)
[2021-06-30] MEDS: cloNIDine 0.1 MG TABLET 0.2 MG PO ×2 (08:14→21:13)
[2021-06-30] MEDS: ASPIRIN 81 MG CHEW TAB PO (08:14)
--- NOTE | 2021-06-30 08:23 | PM.PN.1 ---
Subjective Subjective Date Patient Seen: 06/30/21 Time Patient Seen: 08:23 Interval history: Patient's vital signs are vastly improved. Blood pressure heart rate etcetera Blood sugars a bit on the high side, eating poorly as expected Patient self this morning is very sedate can reports he had horrible night with the terrible hot flashes etcetera. He continues to refuse to wear a hospital gown because of his hot flashes etcetera Patient is telling nursing staff that he is ready to be done is looking forward to hospice or something along those lines Exam Vital Signs (past 8 hours): - 06/30/21 03:38 06/30/21 03:45 Temperature 97.8 F Pulse Rate 70 70 Respiratory Rate 16 Blood Pressure 140/84 140/84 Pulse Oximetry 98 Oxygen Delivery Method Room Air Oxygen Flow Rate 0 Objective Labs Result Diagrams: 06/29/21 09:45 06/29/21 09:45 Labs: Laboratory Results - last 24 hr 06/29/21 06/29/21 06/29/21 09:45 09:45 09:45 WBC 4.4 L RBC 4.52 Hgb 14.5 Hct 41.5 MCV 91.8 MCH 32.1 MCHC 34.9 RDW 12.9 Plt Count 128 L Neut % (Auto) 70.4 Lymph % (Auto) 19.1 L [place] % (Auto) 8.9 Eos % (Auto) 1.1 L Baso % (Auto) 0.5 Neut # (Auto) 3100 Lymph # (Auto) 800 L [place] # (Auto) 400 Eos # (Auto) 0 Baso # (Auto) 0 PT INR APTT Sodium 141 Potassium 3.9 Chloride 107 Carbon Dioxide 22 BUN 20 Creatinine 0.65 L Estimated GFR > 60.0 BUN/Creatinine Ratio 30.8 H Glucose 196 H Lactate 1.8 Calcium 10.3 H Total Bilirubin 0.8 AST 85 H ALT 119 H Alkaline Phosphatase 120 Total Protein 8.5 H Albumin 4.8 Globulin 3.7 Albumin/Globulin Ratio 1.3 Lipase 75 Procalcitonin 0.10 Urine Color Urine Appearance Urine pH Ur Specific [place] Urine Protein Urine Glucose (UA) Urine Ketones Urine Occult Blood Urine Nitrate Urine Bilirubin Urine Urobilinogen Ur Leukocyte Esterase Urine RBC Urine WBC Urine Bacteria Ur Culture Indicated? Micro UA Comment SARS-CoV-2 (PCR) 06/29/21 06/29/2106/29/21 09:45 10:00 10:56 WBC RBC Hgb Hct MCV MCH MCHC RDW Plt Count Neut % (Auto) Lymph % (Auto) [place] % (Auto) Eos % (Auto) Baso % (Auto) Neut # (Auto) Lymph # (Auto) [place] # (Auto) Eos # (Auto) Baso # (Auto) PT 12.1 INR 1.1 APTT 31 D Sodium Potassium Chloride Carbon Dioxide BUN Creatinine Estimated GFR BUN/Creatinine Ratio Glucose Lactate Calcium Total Bilirubin AST ALT Alkaline Phosphatase Total Protein Albumin Globulin Albumin/Globulin Ratio Lipase Procalcitonin Urine Color Yellow Urine Appearance Clear Urine pH 7.0 Ur Specific [place] 1.020 Urine Protein Negative Urine Glucose (UA) Trace H Urine Ketones 1+ H Urine Occult Blood Negative Urine Nitrate Negative Urine Bilirubin Negative Urine Urobilinogen 0.2 Ur Leukocyte Esterase Negative Urine RBC None seen Urine WBC None seen Urine Bacteria None seen Ur Culture Indicated? Cult not indicated Micro UA Comment Microscopic normal SARS-CoV-2 (PCR) Negative PFSH Medical History Cannabis abuse Chronic hepatitis Coronary artery disease involving [place] coronary artery of [place] heart without angina pectoris (~2006) Diabetes type 2, uncontrolled Diverticulosis of large intestine (03/31/12) Essential hypertension Generalized anxiety disorder Kidney stones Mixed hyperlipidemia Paroxysmal A-fib Prostate cancer (~05/2019) Surgical History H/O heart artery stent (~2006) History of angioplasty (~12/2006) Hx of inguinal hernia surgery (~09/20/08) Hx of inguinal hernia surgery (~03/07/14) Status post laminectomy Social History marital status: unmarried,single number of children: 3 household members: none lives independently: Yes caregiver/support person: No housing: house pets and animals: No education level: high school occupational status: other 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/congregational: None leisure activities: music, fishing and other Smoking Status: Never smoker Tobacco: How many years used: 56 Smokeless tobacco user: other quit status: has quit before second hand exposure: Yes (On farmland/Boat.) alcohol intake: former substance use type: does not use and marijuana eating out: rarely or never Type(s) of exercise: normal ROM and activity and additional Assessment & Plan Assessment & Plan narrative: 1. Hypertension etcetera-much improved. Will continue with the higher dose clonidine and discontinue the topical nitrates. Continue his other usual medications. This is his typical pattern he presents with 1 of these episodes is quite hypertensive and then it resolves. Whether not this is symptom or sign of some other underlying illnesses not clear. He is much improved I think is probably close to being ready to go home 2. Hot flashes-again really nothing to offer him regarding this. Maybe the higher dose clonidine 0 make some difference as well as helping with his blood pressure. 3. Depression-patient clearly has some significant anxiety and depression ongoing. In the past he has refused medication but will try once again to see if he will tolerate and or except something like duloxetine. Perhaps that will help with his hot flashes as well. I think we need some sort of mood stabilizer. 4. Diabetes-patient's numbers are up slightly. I am not going to restart his oral medication until he returns home or he eats much better here in the hospital. For now continue with insulin coverage for hyperglycemia 5. GI-patient's symptoms are actually fairly mild for him. He continues to wax and wane. Still has a very poor appetite. Not sure what more we can do for him this regard 6. Chronic pain-patient reports that the oxycodone is not touching his chronic shoulder pain etcetera. I am not willing to increase his meds are resort to additional parental narcotics. Perhaps the addition of duloxetine will make a difference with this chronic pain syndrome as well, yet another reason to initiate that 7. Social-patient continues to deny there is any abnormality or any issues ongoing with his home life. Disposition-patient probably ready to return home either later today or tomorrow at the latest. Again is unclear to me as to the exact etiology of patient's ongoing symptoms before he began receiving Lupron he was having these repeated episodes of his abdominal pain syndrome resulting hypertension etcetera. I am not convinced the hot flashes/Lupron is the entire story I have to believe there is something more going on here the patient is not willing to reveal or that we been unable to find from a medical standpoint. However at this time, vital signs are much improved, labs were entirely normal, no evidence of active infection etcetera. No reason to further evaluate he has had multiple negative tests imaging etcetera over the last several months to years. Time Spent With Patient Critical Care time: I spent a total of [] minutes of critical care time on this patient's care today; this time is exclusive of procedural time.
[2021-06-30] MEDS: DULOXETINE 20 MG CAPSULE PO (10:54)
--- NOTE | 2021-06-30 11:54 | CM.DANOTE ---
DCP: Case received, EMR reviewed and met with patient. Introduced self and role. Patient is familiar with this patient, he has been here before. Was able to get information confirmed regarding his current living situation, as well as his baseline activity level at home. DCP assessment was completed based upon information currently available. Patient is a 65 year old male who admitted yesterday afternoon to the care of the hospitalist team. PCP: Dr. Vasques. Payer: confirmed: [employer]. Patient came to the hospital via ambulance secondary to his having nausea, as well as increased weakness. Patient has history of diabetes, as well as history of Prostate Cancer, and has been on Lupron treatments. He was noted to be hypertensive upon discharge, and some medication adjustments are being made. Met with patient in his room. He is pleasant. He was laying in bed. 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 He does reside alone, but has friends that look in on him, and Lisandra is the main friend that helps with meals. Asked him if he was sad or depressed, denied that he was. Patient used to have [facility], but was already discharged from their service. He stated that he does have a cane or walker for home use if needed. Confirmed with him that Lisandra would be the one picking him up to go home. Patient does not drive. He also indicated that his friend helps him set up his medications. P: DCP to continue to follow. Patient should be able to go home when he is medically stable, could possibly be today or tomorrow according to Dr. Vasques's note. Radha Guajardo RN/Teaching Artist Discharge Planning/Care Management Advanced directive, confirm from FAMILY Start: 06/29/21 15:44 Freq: Q24H Status: Complete Protocol: Document 06/29/21 15:44 CARLYLE (Rec: 06/29/21 15:44 CARLYLE [id number]) Advance Directive, confirm on record Time 15:44 Person contacted no one, brought copy with him Copy received Yes Advanced directive available on record Yes CM Discharge Assessment Start: 06/30/21 11:52 Freq: Status: Active Protocol: Document 06/30/21 11:52 VM (Rec: 06/30/21 11:54 VM [id number]) Discharge Planning Assessment Assigned Sales Force Developer Radha Guajardo RN/Teaching Artist Advance Directives? Yes Advance Directives on File No History Provided By Patient,Medical Record Prior Living Arrangements House Household Members none Type of transporation used prior to Relies on Others admit Independent with ADL's Yes Is patient alert and oriented? Yes Needs Assistance With Meal Prep,Managing Medications ,Home Chores / Shopping Caregiver for Another No DME Already Rented / Owned FWW / Walker,Cane Barriers to Discharge No Comment Patient has good friend support. Discharge Plan Home Transportation Arrangement Patient reports that Lisandra can pick him up at time of d/c . Referrals Initiated None needed If patient plan is home with home health No : Has signed face to face form been completed? Whiteboard Updated in Patient Room with Yes name and ext. # of Sales Force Developer Review Status In Process Next Review Type Continued Stay Review
[2021-06-30] MEDS: ATORVASTATIN 20 MG TABLET PO (17:21)
[2021-06-30] MEDS: TAMSULOSIN 0.4 MG CAPSULE PO (17:21)
[2021-07-01 00:41] VITALS: BP 135/85; PULSE 70; RESP 18; TEMP 36.6; O2SAT 97
[2021-07-01] MEDS: OXYCODONE IR 5 MG TABLET 10 MG PO ×3 (04:22→12:58)
[2021-07-01] MEDS: PANTOPRAZOLE DR 40 MG TABLET PO (06:44)
[2021-07-01 07:50] VITALS: O2SAT 97
[2021-07-01 08:00] VITALS: BP 146/99; PULSE 69; RESP 16; TEMP 36.6; O2SAT 98
[2021-07-01] MEDS: polyethylene glycoL 3350 17 GM POWD.PACK PO (08:59)
[2021-07-01] MEDS: ENOXAPARIN 40 MG/0.4 ML SYRINGE SUBCUT (08:59)
[2021-07-01] MEDS: ASPIRIN 81 MG CHEW TAB PO (09:00)
[2021-07-01] MEDS: METOPROLOL ER 50 MG TABLET PO (09:00)
[2021-07-01] MEDS: cloNIDine 0.1 MG TABLET 0.2 MG PO (09:00)
[2021-07-01] MEDS: DULOXETINE 20 MG CAPSULE PO (09:00)
[2021-07-01] MEDS: INSULIN LISPRO 100 UNIT/ML 3ML VIAL SUBCUT (09:01)
--- NOTE | 2021-07-01 09:15 | PM.DS.1 ---
History of Present Illness History of Present Illness Date Patient Seen: 07/01/21 Time Patient Seen: 09:15 Chief complaint: Weakness Narrative: 65-year-old male well known to me from past history who is admitted by the emergency department because of ongoing weakness abdominal pain emesis x1 night sweats etcetera. Very similar admission to his previous 1 at the end of May. Patient was seen in the clinic less than 2 weeks ago was doing quite well at that point with stabilization of his blood pressure and GI symptoms were relatively absent. He reported his night sweats were much improved. Night sweats are on the basis of his hormonal therapy for his prostate cancer with Lupron. Patient had a full workup for possible catecholamine excess during his last admission because of his persistent GI symptoms as well as his episodic hypertension, as seen today. Workup was entirely negative Patient has had full GI evaluation previously as documented previously and no clear abnormalities noted for his ongoing abdominal symptoms. Variably has findings of thickened colonic wall on CT imaging. No evidence of infection or inflammatory colitis is ever been felt to be present. Patient has been felt by GI and by myself to have a hyperemesis cannabis syndrome and I still believe that maybe well as much a part of what is causing patient to present with the symptoms as anything else. At this point there is nothing new or different about his symptoms he seemed just a bit milder than usual. Workup in the emergency department was completely unremarkable. Labs were unremarkable plain chest x-ray unremarkable. No more advanced imaging was indicated or performed fortunately. Patient refused attempts to suggest he go home and treat this as an outpatient and is admitted for treatment of acute symptoms as well as his elevated blood pressure, although is not at an extreme level once appropriately treated Discharge Providers Provider Date of admission: 06/29/21 14:34 Discharge Date: 07/01/21 Primary care physician: Khang Vasques MD Consults: 06/29/21 12:00 Consult to [facility] - Surgical Elastic Knitter Stat Comment: 06/29/21 15:14 Consult to Discharge Planning Routine Comment: 06/30/21 06:41 Consult to [facility] - Surgical Elastic Knitter Routine Comment: wants information on assisted living vs SNF financ Discharge provider: Khang Vasques MD Summary Hospital Course Discharge Diagnosis: 1. Severe hypertension 2. Severe abdominal pain, etiology not identified 3. Vomiting 4. Diabetes type 2 5. Prostate cancer 6. Hot flashes secondary to Lupron therapy 7. Coronary artery disease, not active this hospitalization 8. Cannabis abuse with cannabis hyperemesis syndrome 9. Chronic pain 10. Depression and anxiety. Hospital Course: Patient was admitted to the hospital floor after workup in the ER failed to reveal an etiology for any of his presenting symptoms. He remains somewhat hypertensive and has felt to require IV fluids given his lack of ability to take anything in orally as well as control of his blood pressure He was started on higher dose clonidine as well as duloxetine in effort to help treat his chronic pain and his hypertension. Also this was an effort to help reduce his symptoms from his hormonal therapy for his prostate cancer Patient was tolerating oral diet much better on day of discharge. His blood pressure was much improved. Still very weak and complaining of variety of arthralgias but was improved. Patient's diabetes was controlled with intermittent insulin although also control by is relatively limited oral intake. Patient was felt to be stable to return home by the afternoon of the 01 of July. Will continue on the higher dose clonidine as well as the duloxetine with close follow-up as an outpatient Status at Discharge Cognitive/behavioral status at discharge: at baseline, oriented Functional status at discharge: uses cane/walker Overall status at discharge: patient is progressing back to baseline Time Spent with Patient Time spent: Greater than 30 minutes Exam Vital Signs (past 8 hours): - 07/01/21 08:00 Temperature 97.9 F Pulse Rate 69 Respiratory Rate 16 Blood Pressure 146/99 H Pulse Oximetry 98 Oxygen Delivery Method Room Air Oxygen Flow Rate 0 Narrative Exam Narrative: HEENT-unremarkable, normocephalic atraumatic Neck-no lymphadenopathy no bruits Lungs-clear anteriorly and posteriorly no wheezes no crackles good breath sounds Heart-regular rate and rhythm, no murmur, rub, or gallop. normal S1-S2 Abdomen-positive bowel tones, soft, nontender, nondistended, no hepatosplenomegaly, no masses palpable Neuro-normal to screening exam, gait not tested Extremities-no cyanosis clubbing or edema Objective Labs Result Diagrams: 06/29/21 09:45 06/29/21 09:45 [facility] Medical History Cannabis abuse Chronic hepatitis Coronary artery disease involving [place] coronary artery of [place] heart without angina pectoris (~2006) Diabetes type 2, uncontrolled Diverticulosis of large intestine (03/31/12) Essential hypertension Generalized anxiety disorder Kidney stones Mixed hyperlipidemia Paroxysmal A-fib Prostate cancer (~05/2019) Surgical History H/O heart artery stent (~2006) History of angioplasty (~12/2006) Hx of inguinal hernia surgery (~09/20/08) Hx of inguinal hernia surgery (~03/07/14) Status post laminectomy Social History marital status: unmarried,single number of children: 3 household members: none lives independently: Yes caregiver/support person: No housing: house pets and animals: No education level: high school occupational status: other 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/zoroastrian: None leisure activities: music, fishing and other Smoking Status: Never smoker Tobacco: How many years used: 56 Smokeless tobacco user: other quit status: has quit before second hand exposure: Yes (On farmland/Boat.) alcohol intake: former substance use type: does not use and marijuana eating out: rarely or never Type(s) of exercise: normal ROM and activity and additional Discharge Plan Discharge Plan Patient Disposition: Home Discharge orders & Medications Prescriptions: New clonidine HCl 0.1 mg Tablet 0.2 mg PO BID Qty: 360 RF: 3 duloxetine [Cymbalta] 20 mg Capsule,Delayed Release(Dr/Ec) 20 mg PO DAILY Qty: 90 RF: 3 Continued simvastatin 40 mg tablet 40 mg PO QPM Qty: 90 RF: 1 omeprazole 40 mg capsule,delayed release(DR/EC) 40 mg PO BID Qty: 180 RF: 1 ondansetron 4 mg tablet,disintegrating 4 mg PO Q6H PRN (Reason: Nausea) Qty: 30 RF: 3 metformin 500 mg tablet 500 mg PO BID Qty: 180 RF: 1 oxycodone 5 mg tablet 10 mg PO Q4H PRN (Reason: pain) Qty: 360 RF: 0 metoprolol succinate 50 mg tablet extended release 24 hr 50 mg PO BID RF: 0 cyclobenzaprine 5 mg tablet 5 mg PO TID PRN (Reason: Spasms) Qty: 60 RF: 0 aspirin 81 mg Tablet,Chewable 81 mg PO QAM RF: 0 sennosides [senna] 8.6 mg Tablet 8.6 mg PO DAILY RF: 0 tamsulosin 0.4 mg capsule 0.4 mg PO QPM RF: 0 promethazine 25 mg suppository 25 mg [place] Q4-6H PRN (Reason: nausea and vomiting) Qty: 12 RF: 0 Discontinued clonidine HCl 0.1 mg Tablet 0.1 mg PO BID Qty: 60 RF: 3 Follow up/Referrals: Khang Vasques MD [Primary Care Provider] - Discharge Health Status Multidrug resistant organism: No MDRO Diet/Activity/Treatments Diet: Diet as Tolerated and Carb-consistent/Diabetic Visit Report/Discharge Packet Instructions: DI for Depression -- Adult, DI for High Blood Pressure Discharge Data Primary Care Provider: Khang Vasques Attending Provider: Khang Vasques
[2021-07-01 09:25] VITALS: O2SAT 96
--- NOTE | 2021-07-01 15:05 | CM.DPC ---
DCP Discharge Home Per MD, pt is medically stable to d/c home today and no identified barriers to discharge. Per ED SEWING MACHINE OPERATOR PLASTIC ZIPPER note, discussion with pt and friend regarding Hospice and [facility] Resources and provided pt and friend with information for possible future needs and pt and friend determined they do not feel like Hospice or other services needed yet at this time. Per RN, d/c instructions provided and pt's friend able to provide transport home today as anticipated. Plan: Patient discharged home via friend POV and resources provided for likely future needs if pt continues to decline in health. Tabatha Sands, SEWING MACHINE OPERATOR PLASTIC ZIPPER
== END 2021-07-01 14:15 | disposition home or self-care (01) ==
LOC: ED 14:30 → AC 14:44
PROVIDERS: Admitting Provider Internal Medicine; Emergency Provider Emergency Medicine; PCP Internal Medicine; Referring Provider Emergency Medicine; Visit Provider Internal Medicine
DX: I10 Essential (primary) hypertension (principal); R53.1 Weakness; R11.10 Vomiting, unspecified; R10.9 Unspecified abdominal pain; R61 Generalized hyperhidrosis; F41.9 Anxiety disorder, unspecified; E11.9 Type 2 diabetes mellitus without complications; Z79.4 Long term (current) use of insulin; G89.29 Other chronic pain; F32.9 Major depressive disorder, single episode, unspecified; F12.188 Cannabis abuse with other cannabis-induced disorder; Z20.822 Contact with and (suspected) exposure to COVID-19
CPT/HCPCS: 36415; 71045; 80053; 81001; 82962; 83605; 83690; 84145; 85025; 85610; 85730; 87040; 87635; 93005; 93010; 94760; 96361; 96374; 96375; 96376; 99217; 99219; 99225; 99284; C9803; G0378; C9113; J1170; J1650; J1815; J2060; J2405; J2765; J7050

== ENCOUNTER 2021-08-01 17:08 | Emergency (ER) | payer OTHER, SELFPAY ==
[2021-06-29 15:36] VITALS: BMI 21.4
[2021-08-01] VITALS (75 sets, daily range): BP systolic 111–213; BP diastolic 63–125; PULSE 60–89; RESP 6–49; TEMP 36.9–37; O2SAT 83–100; BMI 20.6
--- NOTE | 2021-08-01 17:17 | DI.RAD.S_ITS ---
PROCEDURE: XR CHEST 1V INDICATIONS: chest pain TECHNIQUE: One view of the chest was acquired. COMPARISON: [facility], CT, CT ANGIO CHEST PE PROTOCOL, 01/10/2021, 15:12. [facility], CR, XR CHEST 1V, 02/28/2021, 16:17. [facility], CR, XR CHEST 1V, 06/29/2021, 9:28. FINDINGS: Surgical changes and devices: None. Lungs and pleura: Lungs are clear. No pleural effusions or pneumothorax. Mediastinum: The cardiac contours are within normal limits. The aorta demonstrates calcification and tortuosity. Bones and chest wall: No suspicious bony lesions. Age-appropriate bony degenerative changes are seen. Stable right liver dome calcification is seen. IMPRESSION: Unremarkable portable chest for age. Dictated by: Adrian Segovia M.D. on 08/01/2021 at 16:33 Approved by: Adrian Segovia M.D. on 08/01/2021 at 16:34
[2021-08-01 17:24] LABS: Add Manual Diff / Slide Review NO; Basophils Absolute Auto 0 /uL (0-100); Basophils Percent Auto 0.4 % (0-2); Eosinophils Absolute Auto 0 /uL (0-450); Eosinophils Percent Auto 0.3 % (2-4); Hematocrit 41.6 % (41-53); Hemoglobin 14.9 g/dL (13.5-17.5); Lymphocytes Absolute Auto 700 /uL (1100-4500); Lymphocytes Percent Auto 15.5 % (25-40); Mean Corpuscular HGB Conc 35.8 % (30-36); Mean Corpuscular Hemoglobin 31.8 PG (26-34); Mean Corpuscular Volume 88.7 fL (80-100); Monocytes Absolute Auto 100 /uL (0-900); Monocytes Percent Auto 3.5 % (3-14); Neutrophils Absolute Auto 3400 /uL (1500-7000); Neutrophils Percent Auto 80.3 % (50-75); Platelet Count 139 X10^3/uL (150-400); Red Blood Cell Count 4.69 X10^6/uL (4.5-5.9); Red Cell Distribution Width 12.9 % (11.6-14.8); White Blood Cell Count 4.3 X10^3/uL (4.5-11.0)
[2021-08-01] MEDS: ONDANSETRON 4 MG/2 ML INJ IV ×2 (17:25→18:49)
[2021-08-01] MEDS: NITROGLYCERIN 0.4 MG SL TAB SL (17:32)
[2021-08-01 17:36] LABS: Alanine Aminotransferase 106 IU/L (<50); Albumin 5.3 g/dL (3.5-5.0); Albumin Globulin Ratio 1.3 (1.0-2.8); Alkaline Phosphatase 97 U/L (38-126); Aspartate Aminotransferase 114 IU/L (17-59); BUN Creatinine Ratio 29.8 (6-22); Blood Urea Nitrogen 17 mg/dL (9-20); Carbon Dioxide 23 mmol/L (22-32); Chloride 99 mmol/L (98-107); Creatine Kinase 62 U/L (55-170); Estimated Glomerular Filt Rate > 60.0 mL/min (>60); Globulin 4.1 g/dL (1.7-4.1); Glucose 160 mg/dL (80-110); Lipase 45 U/L (23-300); Magnesium 1.4 mg/dL (1.6-2.3); Potassium 4.6 mmol/L (3.4-5.1); Sodium 135 mmol/L (137-145); Total Protein 9.4 g/dL (6.3-8.2)
[2021-08-01 17:45] LABS: NT-proBNP (BNP-Adult 18+) 1890 pg/mL (<125)
[2021-08-01 17:48] LABS: Troponin I 0.024 ng/mL (0.01-0.034)
[2021-08-01 17:51] LABS: HEMOLYSIS 229 (0-50)
--- NOTE | 2021-08-01 18:11 | ED.CHESTPAIN ---
HPI - Chest Pain General Chief Complaint: Chest Pain Stated Complaint: chest pain Time Seen by Provider: 08/01/21 18:09 Source: patient and EMS Mode of arrival: EMS Limitations: no limitations History of Present Illness HPI narrative: 66-year-old gentleman with a history of chronic pain and prescription opioid use, cannabinoid use with recurrent episodes of emesis, generalized anxiety, hypertension, type 2 diabetes, paroxysmal atrial fibrillation, prostate cancer who has had recent hospital admissions for complaints similar to that of today. He states that he has been nauseated all day noted that his blood pressure has been significantly elevated, he has not taken any of his daytime medications including metoprolol succinate 50 mg and clonidine 0.1 mg b.i.d.. He states that he is having neck pain, constant shoulder pain constant low back pain that is causing issues with his legs none of this is different from his usual chronic pain. 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 Review of systems is remarkably positive with generalized weakness, chest pain abdominal pain, headache, low back pain, shoulder pain and night sweats related to his prostate cancer treatment (Lupron). He does not specifically describe cough, palpitations has not recently had diarrhea and reports no fevers. Related Data Home Medications Medication Instructions Recorded Confirmed tamsulosin 0.4 mg capsule 0.4 mg PO QPM 08/15/19 08/01/21 aspirin 81 mg chewable tablet 81 mg PO QAM 11/06/19 08/01/21 metoprolol succinate 50 mg 50 mg PO BID tab 03/13/21 08/01/21 tablet,extended release 24 hr sennosides 8.6 mg tablet (senna) 8.6 mg PO DAILY 06/29/21 08/01/21 Previous Rx's Medication Instructions Recorded promethazine 25 mg rectal 25 mg AR Q4-6H PRN #12 ea 11/18/20 suppository simvastatin 40 mg tablet 40 mg PO QPM #90 tab 02/11/21 cyclobenzaprine 5 mg tablet 5 mg PO TID PRN #60 tab 02/13/21 omeprazole 40 mg capsule,delayed 40 mg PO BID #180 cap 02/24/21 release ondansetron 4 mg disintegrating 4 mg PO Q6H PRN #30 tab 03/11/21 tablet metformin 500 mg tablet 500 mg PO BID #180 tab 05/19/21 clonidine HCl 0.1 mg tablet 0.2 mg PO BID #360 tab 07/01/21 duloxetine 20 mg capsule,delayed 20 mg PO DAILY #90 cap 07/01/21 release (Cymbalta) oxycodone 5 mg tablet 10 mg PO Q4H PRN #360 tab 07/23/21 Allergies Allergy/AdvReac Type Severity Reaction Status Date / Time No Known Drug Allergies Allergy Verified 08/01/21 17:13 Review of Systems Review of Systems Narrative: Remainder of complete review of systems is otherwise unremarkable except for that included in the HPI. Patient History Medical History Cannabis abuse Chronic hepatitis Coronary artery disease involving [place] coronary artery of [place] heart without angina pectoris (~2006) Diabetes type 2, uncontrolled Diverticulosis of large intestine (03/31/12) Essential hypertension Generalized anxiety disorder Kidney stones Mixed hyperlipidemia Paroxysmal A-fib Prostate cancer (~05/2019) Surgical History H/O heart artery stent (~2006) History of angioplasty (~12/2006) Hx of inguinal hernia surgery (~09/20/08) Hx of inguinal hernia surgery (~03/07/14) Status post laminectomy Social History marital status: unmarried,single number of children: 3 household members: none lives independently: Yes caregiver/support person: No housing: house pets and animals: No education level: high school occupational status: other 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/christian: None leisure activities: music, fishing and other Smoking Status: Never smoker Tobacco: How many years used: 56 Smokeless tobacco user: other quit status: has quit before second hand exposure: Yes (On farm[place]/Boat.) alcohol intake: former substance use type: does not use and marijuana eating out: rarely or never Type(s) of exercise: normal ROM and activity and additional Smoking Status: Never smoker alcohol intake frequency: a few times a week Alcohol type: beer Substance Use Type: marijuana Exam Narrative Exam Narrative: General: Chronically ill-appearing with dramatic affect of behavior lying in bed with his arms held flexed and in front of him (bit like Cathy Dodge) HEENT: Moist mucous membranes, normal sclera with reactive pupils, Neck: No JVD, supple Respiratory: Lungs are clear to auscultation, no wheezing no rales no rhonchi. Full and symmetrical air movement Cardiac: Regular rate and rhythm no murmurs no bruits Abdomen: Soft, mild diffuse tenderness without rebound or guarding good bowel tones, no flank pain Skin: Somewhat pale but, no rashes Neurologic: Moving all extremities no obvious asymmetries or abnormalities Extremities: No trauma, well perfused Psych: Poor overall insight, suffering affect, able to speak in full sentences with normal thought processes and speech fluency Initial Vital Signs Initial Vital Signs: Vital Signs Pulse Rate 66 08/01/21 17:12 Respiratory Rate 12 08/01/21 17:12 Pulse Oximetry 100 08/01/21 17:12 Course Orders Ordered: Discontinued Medications Clonidine HCl (Clonidine 0.1 Mg Tablet) 0.1 mg PO NOW ONE Stop: 08/01/21 21:48 Last Admin: 08/01/21 22:11 Dose: 0.1 mg Documented by: JENNIFER Hydromorphone HCl (Hydromorphone 1 Mg Inj) 1 mg IV NOW ONE Stop: 08/01/21 18:37 Last Admin: 08/01/21 18:51 Dose: 1 mg Documented by: FIONA Hydromorphone HCl (Hydromorphone 1 Mg Inj) 1 mg IV NOW ONE Stop: 08/01/21 20:57 Last Admin: 08/01/21 21:07 Dose: 1 mg Documented by: JENNIFER Sodium Chloride (Normal Saline 0.9%) 1,000 mls @ 1,000 mls/hr IV BOLUS ONE Stop: 08/01/21 19:35 Last Infusion: 08/01/21 20:03 Dose: 0 mls/hr Documented by: Admin: 08/01/21 18:49 Dose: 1,000 mls/hr Documented by: FIONA Metoclopramide HCl (Metoclopramide 10 Mg/2 Ml Inj) 10 mg IV NOW ONE Stop: 08/01/21 20:57 Last Admin: 08/01/21 21:08 Dose: 10 mg Documented by: JENNIFER Metoprolol Succinate (Metoprolol Er 25 Mg Tablet) 25 mg PO NOW ONE Stop: 08/01/21 21:48 Last Admin: 08/01/21 22:11 Dose: 25 mg Documented by: JENNIFER Metoprolol Tartrate (Metoprolol Tartrate 5 Mg/5 Ml Inj) 5 mg IV Q5M KAITLIN Stop: 08/01/21 18:56 Last Admin: 08/01/21 19:07 Dose: 5 mg Documented by: Admin: 08/01/21 19:00 Dose: 5 mg Documented by: Admin: 08/01/21 18:53 Dose: 5 mg Documented by: FIONA Nitroglycerin (Nitroglycerin 0.4 Mg Sl Tab) 0.4 mg SL [id number] PRN PRN Reason: Chest Pain Last Admin: 08/01/21 17:32 Dose: 0.4 mg Documented by: HCRISTA Ondansetron HCl (Ondansetron 4 Mg/2 Ml Inj) 4 mg IV NOW ONE Stop: 08/01/21 17:22 Last Admin: 08/01/21 17:25 Dose: 4 mg Documented by: THANH Ondansetron HCl (Ondansetron 4 Mg/2 Ml Inj) 4 mg IV NOW ONE Stop: 08/01/21 18:37 Last Admin: 08/01/21 18:49 Dose: 4 mg Documented by: FIONA Pantoprazole Sodium (Pantoprazole Dr 20 Mg Tablet) 20 mg PO NOW ONE Stop: 08/01/21 21:48 Last Admin: 08/01/21 22:11 Dose: 20 mg Documented by: JENNIFER Vital Signs Vital signs: Vital Signs - 8 hr 08/01/21 18:50 08/01/21 18:55 08/01/21 18:58 Temperature Pulse Rate 68 68 70 Respiratory Rate 15 Blood Pressure 200/104 H 213/105 H Pulse Oximetry 98 99 99 08/01/21 19:00 08/01/21 19:02 08/01/21 19:04 Temperature Pulse Rate 69 72 64 Respiratory Rate 26 H 18 16 Blood Pressure 201/125 H 200/108 H 205/120 H Pulse Oximetry 98 98 99 08/01/21 19:05 08/01/21 19:06 08/01/21 19:10 Temperature Pulse Rate 67 67 71 Respiratory Rate 11 L 17 13 Blood Pressure 209/118 H Pulse Oximetry 99 99 99 08/01/21 19:15 08/01/21 19:20 08/01/21 19:25 Temperature Pulse Rate 67 69 66 Respiratory Rate 7 L 7 L 9 L Blood Pressure 205/112 H Pulse Oximetry 99 99 99 08/01/21 19:30 08/01/21 19:35 08/01/21 19:40 Temperature Pulse Rate 71 62 64 Respiratory Rate 18 6 L 7 L Blood Pressure 191/101 H Pulse Oximetry 99 99 99 08/01/21 19:45 08/01/21 19:50 08/01/21 19:55 Temperature Pulse Rate 69 64 66 Respiratory Rate 7 L 7 L 15 Blood Pressure 187/109 H Pulse Oximetry 99 100 99 08/01/21 20:00 08/01/21 20:05 08/01/21 20:10 Temperature Pulse Rate 72 74 79 Respiratory Rate 18 10 L 14 Blood Pressure 184/90 H Pulse Oximetry 99 99 83 L 08/01/21 20:15 08/01/21 20:16 08/01/21 20:20 Temperature Pulse Rate 62 64 64 Respiratory Rate 9 L 12 49 H Blood Pressure 204/107 H Pulse Oximetry 99 99 99 08/01/21 20:25 08/01/21 20:30 08/01/21 20:35 Temperature Pulse Rate 64 70 66 Respiratory Rate 13 10 L 7 L Blood Pressure 204/107 H 190/96 H Pulse Oximetry 99 99 99 08/01/21 20:40 08/01/21 20:45 08/01/21 20:46 Temperature Pulse Rate 79 63 65 Respiratory Rate 11 L 22 11 L Blood Pressure 209/113 H Pulse Oximetry 100 100 99 08/01/21 20:50 08/01/21 20:55 08/01/21 21:00 Temperature Pulse Rate 64 67 65 Respiratory Rate 14 17 12 Blood Pressure 193/99 H Pulse Oximetry 100 100 100 08/01/21 21:05 08/01/21 21:10 08/01/21 21:15 Temperature Pulse Rate 66 71 76 Respiratory Rate 10 L 20 16 Blood Pressure 172/85 H Pulse Oximetry 99 100 97 08/01/21 21:20 08/01/21 21:25 08/01/21 21:30 Temperature Pulse Rate 74 75 77 Respiratory Rate 13 9 L 14 Blood Pressure 127/70 Pulse Oximetry 97 98 98 08/01/21 21:35 08/01/21 21:40 08/01/21 21:45 Temperature Pulse Rate 74 79 84 Respiratory Rate 12 20 9 L Blood Pressure 111/63 Pulse Oximetry 97 98 99 08/01/21 21:50 08/01/21 21:55 08/01/21 22:00 Temperature Pulse Rate 83 81 80 Respiratory Rate 12 12 12 Blood Pressure 125/73 Pulse Oximetry 99 99 99 08/01/21 22:05 08/01/21 22:10 08/01/21 22:15 Temperature Pulse Rate 89 76 77 Respiratory Rate 32 H 10 L 12 Blood Pressure 136/78 Pulse Oximetry 93 99 99 08/01/21 23:32 Temperature 98.4 F Pulse Rate Respiratory Rate Blood Pressure Pulse Oximetry MDM - Chest Pain Lab Data Result diagrams: 08/01/21 17:16 08/01/21 17:16 Labs: Lab Results 08/01/21 08/01/21 08/01/21 Range/Units 17:16 17:16 17:16 WBC 4.3 L (4.5-11.0) X10^3/uL RBC 4.69 (4.5-5.9) X10^6/uL Hgb 14.9 (13.5-17.5) g/dL Hct 41.6 (41-53) % MCV 88.7 (80-100) fL MCH 31.8 (26-34) PG MCHC 35.8 (30-36) % RDW 12.9 (11.6-14.8) % Plt Count 139 L (150-400) X10^3/uL Neut % (Auto) 80.3 H (50-75) % Lymph % (Auto) 15.5 L (25-40) % [place] % (Auto) 3.5 (3-14) % Eos % (Auto) 0.3 L (2-4) % Baso % (Auto) 0.4 (0-2) % Neut # (Auto) 3400 (8440-1907) /uL Lymph # (Auto) 700 L (3536-4987) /uL [place] # (Auto) 100 (0-900) /uL Eos # (Auto) 0 (0-450) /uL Baso # (Auto) 0 (0-100) /uL Sodium 135 L (137-145) mmol/L Potassium 4.6 (3.4-5.1) mmol/L Chloride 99 (98-107) mmol/L Carbon Dioxide 23 (22-32) mmol/L BUN 17 (9-20) mg/dL Creatinine 0.57 L (0.66-1.25) mg/dL Estimated GFR > 60.0 (>60) mL/min BUN/Creatinine Ratio 29.8 H (6-22) Glucose 160 H (80-110) mg/dL Calcium 10.0 (8.4-10.2) mg/dL Magnesium 1.4 L (1.6-2.3) mg/dL Total Bilirubin 2.0 H (0.2-1.3) mg/dL AST 114 H (17-59) IU/L ALT 106 H (<50) IU/L Alkaline Phosphatase 97 (38-126) U/L Total Creatine Kinase 62 (55-170) U/L CK-MB (CK-2) TNP CK-MB (CK-2) Rel Index TNP Troponin I 0.024 (0.01-0.034) ng/mL NT-Pro-B Natriuret Pep 1890 H (<125) pg/mL Total Protein 9.4 H (6.3-8.2) g/dL Albumin 5.3 H (3.5-5.0) g/dL Globulin 4.1 (1.7-4.1) g/dL Albumin/Globulin Ratio 1.3 (1.0-2.8) Lipase 45 (23-300) U/L SARS-CoV-2 (PCR) (Negative) 08/01/21 Range/Units 17:35 WBC (4.5-11.0) X10^3/uL RBC (4.5-5.9) X10^6/uL Hgb (13.5-17.5) g/dL Hct (41-53) % MCV (80-100) fL MCH (26-34) PG MCHC (30-36) % RDW (11.6-14.8) % Plt Count (150-400) X10^3/uL Neut % (Auto) (50-75) % Lymph % (Auto) (25-40) % [place] % (Auto) (3-14) % Eos % (Auto) (2-4) % Baso % (Auto) (0-2) % Neut # (Auto) (0193-4725) /uL Lymph # (Auto) (9551-2702) /uL [place] # (Auto) (0-900) /uL Eos # (Auto) (0-450) /uL Baso # (Auto) (0-100) /uL Sodium (137-145) mmol/L Potassium (3.4-5.1) mmol/L Chloride (98-107) mmol/L Carbon Dioxide (22-32) mmol/L BUN (9-20) mg/dL Creatinine (0.66-1.25) mg/dL Estimated GFR (>60) mL/min BUN/Creatinine Ratio (6-22) Glucose (80-110) mg/dL Calcium (8.4-10.2) mg/dL Magnesium (1.6-2.3) mg/dL Total Bilirubin (0.2-1.3) mg/dL AST (17-59) IU/L ALT (<50) IU/L Alkaline Phosphatase (38-126) U/L Total Creatine Kinase (55-170) U/L CK-MB (CK-2) CK-MB (CK-2) Rel Index Troponin I (0.01-0.034) ng/mL NT-Pro-B Natriuret Pep (<125) pg/mL Total Protein (6.3-8.2) g/dL Albumin (3.5-5.0) g/dL Globulin (1.7-4.1) g/dL Albumin/Globulin Ratio (1.0-2.8) Lipase (23-300) U/L SARS-CoV-2 (PCR) Negative (Negative) Urine Dip Bedside Urine Glucose Negative Bedside Urine Bilirubin - Negative Bedside Urine Ketone ++ 40 Urine Specific [place] 1.025 Bedside Urine Occult Blood - Negative Bedside Urine pH 6.0 Bedside Urine Protein - Negative Bedside Urine Urobilinogen - Negative Bedside Urine Nitrite - Negative Bedside Urine Leukocytes - Negative Esterase Imaging Data Chest x-ray: Radiologist's Impression: FINDINGS:? ? Surgical changes and devices:? None.? ? Lungs and pleura:? Lungs are clear.? No pleural effusions or pneumothorax.? ? Mediastinum:? The cardiac contours are within normal limits. The aorta demonstrates calcification and tortuosity. ? Bones and chest wall:? No suspicious bony lesions.? Age-appropriate bony degenerative changes are seen.? Stable right liver dome calcification is seen. ? ? ? IMPRESSION:? Unremarkable portable chest for age. ? ? Dictated by: Adrian Segovia M.D. on 08/01/2021 at 16:33 ? ? ECG Data Interpretation: Sinus rhythm at a rate of 63 Normal intervals, normal axis No acute ischemic changes Similar findings to EKG from November 07, 2019 [facility] Narrative Medical decision making narrative: 66-year-old gentleman with chronic pain, chronic nausea and vomiting who presents with similar findings today. He states he has been vomiting so much he has been unable to take his blood pressure medications and is significantly hypertensive on arrival. Blood work is actually fairly reassuring with no evidence of acute coronary syndrome, sepsis, other infection, acute renal failure. He does have slightly elevated LFTs and a slightly elevated bilirubin but also carries a diagnosis of chronic hepatitis C and blood work is not significantly off from his baseline. No indication pneumonia, acute surgical abdomen, constipation or bowel obstruction. He is initially given a L of fluid he is given a mg of Dilaudid as he has not taken any of his usual narcotic pain medication and I suspect that withdrawal symptoms are contributing to the overall picture. 9:43 He significantly improved. Pain is under control after the 2 mg of IV Dilaudid. Nausea is better. Will try sips of water and if that stays down would like him to take his nighttime clonidine. He may well be able to be discharged home shortly Discharge Plan Departure Patient Disposition: Home Clinical Impression: Nausea and vomiting Instructions: DI for Nausea -- Adult Activity Restrictions/Additional Instructions: Thank you for coming in today I am sorry your having such trouble with nausea today. When the nausea is severe enough that you can not take your medications, then everything just sort of snowballs down hill I have given you your evening medications of clonidine metoprolol and omeprazole. As you have not been eating, I have not given you your metformin. Please continue all of your usual medications and follow-up with your primary care physician. I hope you are feeling better Prescriptions: No Action simvastatin 40 mg tablet 40 mg PO QPM Qty: 90 1RF omeprazole 40 mg capsule,delayed release(DR/EC) 40 mg PO BID Qty: 180 1RF ondansetron 4 mg tablet,disintegrating 4 mg PO Q6H PRN (Reason: Nausea) Qty: 30 3RF metformin 500 mg tablet 500 mg PO BID Qty: 180 1RF oxycodone 5 mg tablet 10 mg PO Q4H PRN (Reason: pain) Qty: 360 0RF metoprolol succinate 50 mg tablet extended release 24 hr 50 mg PO BID 0RF cyclobenzaprine 5 mg tablet 5 mg PO TID PRN (Reason: Spasms) Qty: 60 0RF aspirin 81 mg Tablet,Chewable 81 mg PO QAM 0RF sennosides [senna] 8.6 mg Tablet 8.6 mg PO DAILY 0RF clonidine HCl 0.1 mg Tablet 0.2 mg PO BID Qty: 360 3RF duloxetine [Cymbalta] 20 mg Capsule,Delayed Release(Dr/Ec) 20 mg PO DAILY Qty: 90 3RF tamsulosin 0.4 mg capsule 0.4 mg PO QPM 0RF promethazine 25 mg suppository 25 mg AR Q4-6H PRN (Reason: nausea and vomiting) Qty: 12 0RF Referrals: Khang Vasques MD [Primary Care Provider] -
[2021-08-01 18:39] LABS: COVID19 - ADMIT (NP swab/PCR) Negative (Negative)
[2021-08-01] MEDS: SODIUM CHLORIDE 0.9% 1,000 ML 1000 ML IV (18:49)
[2021-08-01] MEDS: HYDROMORPHONE 1 MG INJ IV ×2 (18:51→21:07)
[2021-08-01] MEDS: METOPROLOL TARTRATE 5 MG/5 ML INJ IV ×3 (18:53→19:07)
[2021-08-01] MEDS: METOCLOPRAMIDE 10 MG/2 ML INJ IV (21:08)
[2021-08-01] MEDS: cloNIDine 0.1 MG TABLET PO (22:11)
[2021-08-01] MEDS: PANTOPRAZOLE DR 20 MG TABLET PO (22:11)
[2021-08-01] MEDS: METOPROLOL ER 25 MG TABLET PO (22:11)
== END 2021-08-01 23:05 | disposition home or self-care (01) ==
PROVIDERS: Emergency Medicine; Emergency Provider Emergency Medicine; PCP Internal Medicine
DX: R11.2 Nausea with vomiting, unspecified (principal); R07.9 Chest pain, unspecified; G89.29 Other chronic pain; Z20.822 Contact with and (suspected) exposure to COVID-19
CPT/HCPCS: 71045; 80053; 81003; 82550; 83690; 83735; 83880; 84484; 85025; 87635; 93005; 96374; 96375; 96376; 99284; C9803; J1170; J2405; J2765

== ENCOUNTER → 2021-08-10 09:28 | Outpatient (CLI) | payer OTHER, SELFPAY ==
[2021-06-29 15:36] VITALS: BMI 21.4
[2021-08-10 11:33] LABS: COVID19 -Nasal RAPID Negative (Negative)
== END ==
PROVIDERS: PCP Internal Medicine; Visit Provider Physician Assistant
DX: Z20.822 Contact with and (suspected) exposure to COVID-19 (principal)
CPT/HCPCS: 87635; C9803

== ENCOUNTER 2021-08-11 12:54 | Day surgery (SDC) | payer OTHER, SELFPAY ==
[2021-06-29 15:36] VITALS: BMI 21.4
[2021-08-11 13:07] VITALS: BP 93/70; PULSE 60; RESP 14; TEMP 35.8; O2SAT 99; BMI 19.5
[2021-08-11] MEDS: PROPARACAINE 0.5% OPHTH SOL 2 DROPS EYE-OP (13:14)
[2021-08-11] MEDS: CATARACT EYE COMPOUND (10 DROPS/SYRINGE) 3 DROPS EYE-OP (13:15)
--- NOTE | 2021-08-11 13:31 | PM.PREOP ---
Pre-operative Note Interval Note History & Physical reviewed/Exam performed by Physician: Yes Changes to H&P: No
--- NOTE | 2021-08-11 13:31 | PM.OP.1 ---
Operative Date/Time/Diagnoses Pre-op diagnosis: Nuclear Cataract Left eye Post-op diagnosis: same Procedure & Clinicians Same procedure as scheduled: Yes Surgeon: Meir Corona Anesthesia Type: MAC +/- and Sedation Operative Notes Procedure in detail: Patient brought to the operating suite. Tetracaine drops placed in the left eye. Patient was prepped and draped in sterile manner. Wire lid speculum was placed in the eye. Betadine drops were placed on the eye. This was irrigated. Lidocaine jelly was placed on the eye. A paracentesis port was created with a side-port blade. 0.1 mL 1% preservative free lidocaine was injected into the anterior chamber. The anterior chamber was deepened with viscoelastic. 2.6 mm keratome was used to create a temporal clear corneal incision. Cystotome and Utrata forceps were used to create continuous tear capsulorrhexis. Balanced salt solution was used to hydro dissect the nucleus. The phacoemulsification handpiece was inserted and the nucleus was removed using the stop and chop technique. The irrigation aspiration handpiece was inserted and the remaining cortex was removed. Anterior chamber was deepened with viscoelastic. An Metcalf DIB00 intraocular lens with a power of 19.5 was injected into the capsular bag. Irrigation aspiration handpiece was inserted and the remaining viscoelastic was removed. Incision was hydrated with balanced salt solution and found to be leak free with pressure with Weck-Gretchen sponges. 0.1 mL Vigamox injected anterior chamber. 0.3 mL Kenalog 10 mg was injected subconjunctivally. Lid speculum was removed. The patient left the operating room in excellent condition. Complications: none Post-operative Condition: stable Disposition: same day surgery
[2021-08-11] MEDS: MOXIFLOXACIN INJ 4 MG/0.8 ML VIAL 0.5 MG EYE-OP (13:47)
[2021-08-11] MEDS: HYALURONATE SODIUM 30 MG-10 MG/ML SYRINGES 1 BOX INTRAOCULA (13:47)
[2021-08-11] MEDS: TETRACAINE 0.5% OPHTH DROPS 4 ML 2 DROPS EYE-OP (13:48)
[2021-08-11] MEDS: PHENYLEPHRINE/LIDOCAINE VIAL (OR) 0.2 ML EYE-OP (13:48)
[2021-08-11] MEDS: BALANCED SALT IRRIG SOLN NO.2 500 ML, EPINEPHrine 1 MG IRR (13:48)
[2021-08-11] MEDS: TRIAMCINOLONE 50 MG/5 ML VIAL INJ (13:48)
[2021-08-11] MEDS: LIDOCAINE 2% (GLYDO) 6 ML GEL TOP (13:49)
[2021-08-11 14:04] VITALS: BP 93/68; PULSE 63; RESP 18; TEMP 36.8; O2SAT 98
== END 2021-08-11 14:17 | disposition home or self-care (01) ==
PROVIDERS: PCP Internal Medicine; Referring Provider Ophthalmology; Visit Provider Ophthalmology
PROC: (CPT 66984; principal; 2021-08-11 13:15)
DX: H25.12 Age-related nuclear cataract, left eye (principal); I10 Essential (primary) hypertension; I51.9 Heart disease, unspecified; I25.2 Old myocardial infarction; M79.7 Fibromyalgia; F41.9 Anxiety disorder, unspecified; E11.9 Type 2 diabetes mellitus without complications; Z79.84 Long term (current) use of oral hypoglycemic drugs
CPT/HCPCS: 66984; J0171; J2250; J3301

== ENCOUNTER → 2021-08-12 07:32 | Outpatient (CLI) | payer OTHER, SELFPAY ==
[2021-06-29 15:36] VITALS: BMI 21.4
[2021-08-12 08:28] LABS: Hemoglobin A1C% w Est Avg Glu 5.6 % (4.0-6.0)
[2021-08-12 09:06] LABS: Alanine Aminotransferase 97 IU/L (<50); Albumin 4.2 g/dL (3.5-5.0); Albumin Globulin Ratio 1.4 (1.0-2.8); Alkaline Phosphatase 82 U/L (38-126); Aspartate Aminotransferase 86 IU/L (17-59); BUN Creatinine Ratio 32.1 (6-22); Bilirubin Total 0.6 mg/dL (0.2-1.3); Blood Urea Nitrogen 26 mg/dL (9-20); Calcium 9.8 mg/dL (8.4-10.2); Carbon Dioxide 26 mmol/L (22-32); Chloride 102 mmol/L (98-107); Estimated Glomerular Filt Rate > 60.0 mL/min (>60); Glucose 130 mg/dL (80-110); HEMOLYSIS < 15 (0-50); Magnesium 1.7 mg/dL (1.6-2.3); Potassium 4.3 mmol/L (3.4-5.1); Sodium 138 mmol/L (137-145); Total Protein 7.2 g/dL (6.3-8.2)
== END ==
PROVIDERS: PCP Internal Medicine; Referring Provider Internal Medicine; Visit Provider Internal Medicine
DX: E11.8 Type 2 diabetes mellitus with unspecified complications (principal); I10 Essential (primary) hypertension; E78.2 Mixed hyperlipidemia
CPT/HCPCS: 36415; 80053; 83036; 83735

== ENCOUNTER → 2021-08-24 13:53 | Outpatient (CLI) | payer OTHER, SELFPAY ==
[2021-06-29 15:36] VITALS: BMI 21.4
[2021-08-24 17:59] LABS: COVID19 -Nasal RAPID Negative (Negative)
== END ==
PROVIDERS: PCP Internal Medicine; Visit Provider Nurse Practitioner Family
DX: Z20.822 Contact with and (suspected) exposure to COVID-19 (principal)
CPT/HCPCS: 87635; C9803

== ENCOUNTER 2021-08-31 11:09 | Emergency (ER) | payer OTHER, SELFPAY ==
[2021-06-29 15:36] VITALS: BMI 21.4
[2021-08-31] VITALS (32 sets, daily range): BP systolic 107–234; BP diastolic 73–126; PULSE 57–79; RESP 11–26; TEMP 36.9; O2SAT 97–100
--- NOTE | 2021-08-31 11:17 | DI.RAD.S_ITS ---
PROCEDURE: XR CHEST 1V INDICATIONS: chest pain TECHNIQUE: One view of the chest was acquired. COMPARISON: [facility], CT, CT ABDOMEN PELVIS W CON, 03/01/2021, 11:14. [facility], CR, XR CHEST 1V, 08/01/2021, 17:27. [facility], CR, XR CHEST 1V, 06/29/2021, 9:28. FINDINGS: Surgical changes and devices: None. Lungs and pleura: Lungs appear clear. No pleural effusions or pneumothorax. Mediastinum: Mediastinal contours appear unchanged. Heart size is normal. Bones and chest wall: No suspicious bony lesions. Overlying soft tissues appear unremarkable. Calcified granuloma in the liver. IMPRESSION: No acute cardiopulmonary abnormality. Dictated by: Eric Butt M.D. on 08/31/2021 at 11:42 Approved by: Eric Butt M.D. on 08/31/2021 at 11:43
[2021-08-31 11:37] LABS: Appearance Urine UA CLEAR; Bilirubin Urine UA NEGATIVE (NEGATIVE); Color Urine UA YELLOW; Glucose Urine UA 1+ g/dL (Negative); Ketones Urine UA 2+ (NEGATIVE); Leukocyte Esterase Urine UA NEGATIVE (NEGATIVE); Nitrite Urine UA NEGATIVE (Negative); Occult Blood Urine UA TRACE-LYSED (Negative); Protein Urine UA TRACE (Negative); Urobilinogen Urine UA 0.2 E.U./dL (0.2)
[2021-08-31 11:42] LABS: Bacteria Urine None Seen; Culture Indicated Urine Cult Not Indicated; RBC Urine None Seen (0-5/HPF); WBC Urine None Seen (0-5/HPF)
[2021-08-31] MEDS: ONDANSETRON 4 MG/2 ML INJ IV ×2 (11:44→13:33)
[2021-08-31] MEDS: MORPHINE 4 MG/ML INJ IV (11:55)
[2021-08-31 12:07] LABS: Add Manual Diff / Slide Review NO; Alanine Aminotransferase 172 IU/L (<50); Albumin 5.3 g/dL (3.5-5.0); Albumin Globulin Ratio 1.2 (1.0-2.8); Alkaline Phosphatase 115 U/L (38-126); Aspartate Aminotransferase 191 IU/L (17-59); BUN Creatinine Ratio 23.8 (6-22); Basophils Absolute Auto 0 /uL (0-100); Basophils Percent Auto 0.9 % (0-2); Bilirubin Total 1.8 mg/dL (0.2-1.3); Blood Urea Nitrogen 15 mg/dL (9-20); Calcium 10.1 mg/dL (8.4-10.2); Carbon Dioxide 22 mmol/L (22-32); Chloride 103 mmol/L (98-107); Creatine Kinase 84 U/L (55-170); Eosinophils Absolute Auto 0 /uL (0-450); Eosinophils Percent Auto 0.3 % (2-4); Estimated Glomerular Filt Rate > 60.0 mL/min (>60); Globulin 4.6 g/dL (1.7-4.1); Glucose 198 mg/dL (80-110); Hematocrit 41.5 % (41-53); Hemoglobin 14.9 g/dL (13.5-17.5); Lipase 70 U/L (23-300); Lymphocytes Absolute Auto 500 /uL (1100-4500); Lymphocytes Percent Auto 13.7 % (25-40); Magnesium 1.6 mg/dL (1.6-2.3); Mean Corpuscular HGB Conc 35.9 % (30-36); Mean Corpuscular Hemoglobin 31.9 PG (26-34); Mean Corpuscular Volume 88.9 fL (80-100); Monocytes Absolute Auto 200 /uL (0-900); Neutrophils Absolute Auto 3000 /uL (1500-7000); Neutrophils Percent Auto 79.1 % (50-75); Platelet Count 122 X10^3/uL (150-400); Potassium 5.3 mmol/L (3.4-5.1); Red Blood Cell Count 4.67 X10^6/uL (4.5-5.9); Red Cell Distribution Width 13.4 % (11.6-14.8); Sodium 137 mmol/L (137-145); White Blood Cell Count 3.8 X10^3/uL (4.5-11.0)
[2021-08-31 12:08] LABS: HEMOLYSIS 202 (0-50)
[2021-08-31 12:09] LABS: Total Protein 9.9 g/dL (6.3-8.2)
[2021-08-31] MEDS: SODIUM CHLORIDE 0.9% 1,000 ML 1000 ML IV (12:15)
[2021-08-31 12:18] LABS: Troponin I 0.013 ng/mL (0.01-0.034)
[2021-08-31 12:20] LABS: COVID19 -Nasal RAPID Negative (Negative)
--- NOTE | 2021-08-31 13:08 | PC.NURSE ---
Reports improvement in nausea, feels like someone is stabbing my tummy.
--- NOTE | 2021-08-31 13:21 | DI.CT.S_ITS ---
PROCEDURE: CT ABDOMEN PELVIS W CON INDICATIONS: N/V/D, abd pain TECHNIQUE: After the administration of IV contrast, axial sections were acquired from the lung bases to the pubic symphysis. Coronal and sagittal reformats were performed. For radiation dose reduction, the following was used: automated exposure control, adjustment of mA and/or kV according to patient size. COMPARISON: [facility], CT, CT ABDOMEN PELVIS W CON, 11/10/2020, 11:07. [facility], CT, CT ABDOMEN PELVIS W CON, 03/01/2021, 11:14. FINDINGS: Image quality: Excellent. Lung bases: Unremarkable. Heart: Heart size at the upper limits of normal with coronary artery calcification and trace chronic pericardial effusion. ABDOMEN: Liver: Coarse benign calcifications in the liver dome. No new liver masses. Mild hypertrophy of the left and caudate lobes of the liver. Gallbladder: Normal wall thickness. Biliary ducts: Nondilated. Pancreas: Normal. Spleen: Normal size. Adrenal Glands: No nodules. Kidneys and Ureters: Normal enhancement. No hydronephrosis or hydroureter. No calcifications. Small right lower pole intraparenchymal cyst. No ureteral calcifications visible. Stomach and Bowel: Known intestinal malrotation. No small bowel obstruction. Normal appendix. Diverticulosis in the distal descending and sigmoid colon. Mild sigmoid colon wall thickening without significant inflammatory change. Peritoneum: No abnormal intraperitoneal fluid. No free air. Ventral Wall: No hernia. Abdominal Nodes: No retroperitoneal or mesenteric adenopathy by size criteria. Vessels: Aorta and inferior vena cava are normal in size. Mild abdominal aortic atherosclerotic calcification. PELVIS: Pelvic Organs: Normal size prostate gland with fiducial markers in place. Bladder: Normal bladder wall thickness. Pelvic Nodes: No enlarged lymph nodes. Miscellaneous: No inguinal hernias are seen. Bones: Enlarging subcentimeter sclerotic foci in the L2 vertebral body and bilateral sacral ala. IMPRESSION: 1. Diverticulosis with chronic wall thickening of the sigmoid colon. No acute inflammation. 2. Enlarging sclerotic foci in the bilateral sacral ala and L2 vertebral body. Correlate with PSA levels. Dictated by: Michaela Bueno M.D. on 08/31/2021 at 14:07 Approved by: Michaela Bueno M.D. on 08/31/2021 at 14:21
[2021-08-31 13:29] LABS: INR 1.1 (0.9-1.3); Prothrombin Time 12.7 SECONDS (10.1-12.7)
[2021-08-31 13:32] LABS: PTT Partial Thromboplastin Tim 28 SECONDS (26.4-36.2)
[2021-08-31] MEDS: AMLODIPINE 5 MG TABLET PO (14:07)
--- NOTE | 2021-08-31 14:10 | PC.NURSE ---
Pt reports improvement in nausea but hesitant about trying anything oral. Instructed pt to take small sip of water, well tolerated, and pt agreeable to try 1 small pill medication to start.
[2021-08-31] MEDS: HYDROCODONE/ACET 10/325 TABLET 1 TAB PO (14:22)
[2021-08-31] MEDS: cloNIDine 0.1 MG TABLET 0.2 MG PO (14:25)
[2021-08-31] MEDS: METOPROLOL IR 25 MG TABLET 50 MG PO (14:41)
--- NOTE | 2021-08-31 14:57 | PC.NURSE ---
Pt had small amount of clear yellow emesis, Maxwell FRANK notified and holding off on PO lisinopril for now.
[2021-08-31] MEDS: METOCLOPRAMIDE 10 MG/2 ML INJ IV (15:44)
--- NOTE | 2021-08-31 16:19 | ED.NAVMDI ---
HPI - Nausea/Vomiting/Diarrhea <Mayuri Arreola PA-C - Last Filed: 08/31/21 19:06> General Chief complaint: Nausea/Vomiting/Diarrhea Stated complaint: HTN/Nausea/Vomiting Time Seen by Provider: 08/31/21 12:12 Source: patient and EMS Mode of arrival: EMS History of Present Illness HPI Narrative: 66-year-old male with past medical history diabetes, essential hypertension, hyperlipidemia, prostate cancer, paroxysmal AFib, cannabis abuse, peripheral neuropathy, coronary artery disease, hepatitis C, diverticulosis presents to the ED with 3 days of diarrhea, nausea, vomiting, abdominal pain. Patient denies fever, chills, chest pain, shortness of breath, cough, dysuria, flank pain, lightheadedness, dizziness, syncope. Patient states that his symptoms 1st started with diarrhea 3 days ago, with onset of nausea and vomiting this morning. Patient has a history of cannabis abuse, cyclical vomiting. Patient states that he last smoked marijuana 5 days ago. Patient has a history of frequent ED visits for similar symptoms of nausea, vomiting. Patient states that his blood pressure always rises when he gets sick. Patient states he has been unable to take his regular medications due to the vomiting. Related Data Home Medications Medication Instructions Recorded Confirmed tamsulosin 0.4 mg capsule 0.4 mg PO QPM 08/15/19 09/01/21 aspirin 81 mg chewable tablet 81 mg PO QAM 11/06/19 09/01/21 metoprolol succinate 50 mg 50 mg PO BID tab 03/13/21 09/01/21 tablet,extended release 24 hr sennosides 8.6 mg tablet (senna) 8.6 mg PO DAILY 06/29/21 09/01/21 Previous Rx's Medication Instructions Recorded promethazine 25 mg rectal 25 mg IN Q4-6H PRN #12 ea 11/18/20 suppository cyclobenzaprine 5 mg tablet 5 mg PO TID PRN #60 tab 02/13/21 ondansetron 4 mg disintegrating 4 mg PO Q6H PRN #30 tab 03/11/21 tablet metformin 500 mg tablet 500 mg PO BID #180 tab 05/19/21 duloxetine 20 mg capsule,delayed 20 mg PO DAILY #90 cap 07/01/21 release (Cymbalta) oxycodone 5 mg tablet 10 mg PO Q4H PRN #360 tab 07/23/21 simvastatin 40 mg tablet 40 mg PO QPM #90 tab 08/03/21 clonidine HCl 0.1 mg tablet 0.1 mg PO BID #360 tab 08/18/21 omeprazole 40 mg capsule,delayed 40 mg PO BID #180 cap 08/21/21 release Allergies Allergy/AdvReac Type Severity Reaction Status Date / Time No Known Drug Allergies Allergy Verified 08/18/21 09:28 Review of Systems <Mayuri Arreola PA-C - Last Filed: 08/31/21 19:06> Review of Systems ROS Unobtainable: All systems reviewed & are unremarkable except as noted in HPI and below Constitutional Constitutional: Denies chills, Denies fatigue, Denies fever(s), Denies frequent falls, Denies lethargy and Denies weakness Eyes Eyes: Denies change in vision, Denies eye discharge, Denies irritation and Denies loss of vision ENT Ears, Nose, Mouth, and Throat: Denies change in voice, Denies dizziness, Denies neck pain, Denies sore throat and Denies throat swelling Cardiovascular Cardiovascular: Denies chest pain, Denies irregular heart rhythm, Denies lightheadedness, Denies palpitations, Denies dyspnea, Denies dyspnea on exertion and Denies orthopnea Respiratory Respiratory: Denies cough, Denies dyspnea, Denies dyspnea on exertion and Denies wheezing Gastrointestinal Gastrointestinal: Reports abdominal pain, Denies change in bowel habits, Reports diarrhea, Reports nausea and Reports vomiting Genitourinary Genitourinary: Denies hematuria, Denies flank pain, Denies urinary incontinence and Denies urinary urgency Musculoskeletal Musculoskeletal: Denies back pain, Denies muscle weakness, Denies neck pain, Denies numbness and Denies tingling Integumentary/Breasts Skin/Breast: Denies pruritus, Denies erythema, Denies rash and Denies wounds Neurologic Neurologic: Denies behavioral changes, Denies confusion, Denies dizziness, Denies frequent falls, Denies loss of vision, Denies numbness, Denies tingling and Denies weakness Psychiatric Psychiatric: Denies anxiety, Denies behavioral changes, Denies confusion, Denies depression, Denies homicidal ideation and Denies suicidal ideation Endocrine Endocrine: Denies fatigue, Denies flushing and Denies palpitations Hematologic/Lymphatic Hematologic/Lymphatic: Denies easy bruising Allergic/Immunologic Allergic/Immunologic: Denies urticaria, Denies throat swelling and Denies wheezing Patient History <Mayuri Arreola PA-C - Last Filed: 08/31/21 19:06> Medical History Cannabis abuse Chronic hepatitis Coronary artery disease involving [place] coronary artery of [place] heart without angina pectoris (~2006) Diabetes type 2, uncontrolled Diverticulosis of large intestine (03/31/12) Essential hypertension Generalized anxiety disorder Kidney stones Mixed hyperlipidemia Paroxysmal A-fib Prostate cancer (~05/2019) Surgical History H/O heart artery stent (~2006) History of angioplasty (~12/2006) Hx of inguinal hernia surgery (~09/20/08) Hx of inguinal hernia surgery (~03/07/14) Status post laminectomy Social History marital status: unmarried,single number of children: 3 household members: none lives independently: Yes caregiver/support person: No housing: house pets and animals: No education level: high school occupational status: other 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.) alcohol intake: former substance use type: does not use and marijuana eating out: rarely or never Type(s) of exercise: normal ROM and activity and additional Smoking Status: Never smoker alcohol intake frequency: 0-2 drinks per day Alcohol type: beer Substance Use Type: marijuana Exam <Mayuri Arreola PA-C - Last Filed: 08/31/21 19:06> Initial Vital Signs Initial Vital Signs: Vital Signs Temperature 98.5 F 08/31/21 11:34 Pulse Rate 64 08/31/21 11:34 Respiratory Rate 20 08/31/21 11:34 Blood Pressure 217/107 H 08/31/21 11:34 Pulse Oximetry 100 08/31/21 11:34 Const General: cooperative, frail appearing and ill appearing Nutritional Appearance: cachectic HENMT Head: normal to inspection Eyes General: appearance normal, both eyes and all related structures Neck Neck: normal visual inspection Chest Chest: normal inspection of the chest Resp Effort & Inspection: normal respiratory effort Auscultation: clear to auscultation bilaterally Cardio Rate: regular rate Rhythm: regular rhythm GI Inspection: normal to inspection Other: Abdomen is soft, nondistended. Tender to palpation in the epigastric, lower left quadrant. No CVA tenderness. General: No CVA tenderness Back/Spine/Pelvis Back: normal to inspection Skin General: no rashes or lesions noted Neuro General: patient alert, patient awake and patient oriented x3 <Ashley Carrasco DO - Last Filed: 09/01/21 13:49> Initial Vital Signs Initial Vital Signs: Vital Signs Temperature 98.5 F 08/31/21 11:34 Pulse Rate 64 08/31/21 11:34 Respiratory Rate 20 08/31/21 11:34 Blood Pressure 217/107 H 08/31/21 11:34 Pulse Oximetry 100 08/31/21 11:34 Course <Mayuri Arreola PA-C - Last Filed: 08/31/21 19:06> Course Course Narrative: Patient's emesis controlled with Zofran, Reglan. Hydrated with IV fluids. Pain controlled with morphine, hydrocodone/acet. Patient was able to tolerate his home p.o. medications for hypertension. Patient's blood pressure down to 115/75. Patient is stable through the ED stay. Discussed CT findings of multiple foci of sclerosis in L2 and sacral ala. patient agrees to follow-up with his oncologist for further workup on this finding. ED return precautions discussed with patient. Patient verbalized understanding. Discharge patient home. Orders Ordered: Discontinued Medications Hydrocodone Bitart/Acetaminophen (Hydrocodone/Acet 10/325 Tablet) 1 tab PO NOW ONE Stop: 08/31/21 13:23 Last Admin: 08/31/21 14:22 Dose: 1 tab Documented by: MELISSA Amlodipine Besylate (Amlodipine 5 Mg Tablet) 5 mg PO NOW ONE Stop: 08/31/21 13:32 Last Admin: 08/31/21 14:07 Dose: 5 mg Documented by: MELISSA Clonidine HCl (Clonidine 0.1 Mg Tablet) 0.2 mg PO NOW ONE Stop: 08/31/21 13:32 Last Admin: 08/31/21 14:25 Dose: 0.2 mg Documented by: MELISSA Sodium Chloride (Normal Saline 0.9%) 1,000 mls @ 1,000 mls/hr IV BOLUS ONE Stop: 08/31/21 13:13 Last Infusion: 08/31/21 13:56 Dose: 0 mls/hr Documented by: Admin: 08/31/21 12:15 Dose: 1,000 mls/hr Documented by: MELISSA Lisinopril (Lisinopril 5 Mg Tablet) 5 mg PO NOW ONE Stop: 08/31/21 13:35 Metoclopramide HCl (Metoclopramide 10 Mg/2 Ml Inj) 10 mg IV NOW ONE Stop: 08/31/21 15:19 Last Admin: 08/31/21 15:44 Dose: 10 mg Documented by: MELISSA Metoprolol Tartrate (Metoprolol Ir 25 Mg Tablet) 50 mg PO NOW ONE Stop: 08/31/21 13:32 Last Admin: 08/31/21 14:41 Dose: 50 mg Documented by: MELISSA Morphine Sulfate (Morphine 4 Mg/Ml Inj) 4 mg IV NOW ONE Stop: 08/31/21 11:53 Last Admin: 08/31/21 11:55 Dose: 4 mg Documented by: MELISSA Ondansetron HCl (Ondansetron 4 Mg/2 Ml Inj) 4 mg IV NOW ONE Stop: 08/31/21 11:18 Last Admin: 08/31/21 11:44 Dose: 4 mg Documented by: MELISSA Ondansetron HCl (Ondansetron 4 Mg/2 Ml Inj) 4 mg IV NOW ONE Stop: 08/31/21 13:24 Last Admin: 08/31/21 13:33 Dose: 4 mg Documented by: MELISSA Vital Signs Vital signs: Vital Signs - 8 hr 08/31/21 11:34 08/31/21 11:48 08/31/21 12:00 Temperature 98.5 F Pulse Rate 64 60 57 L Respiratory Rate 20 18 19 Blood Pressure 217/107 H 220/106 H 213/114 H Pulse Oximetry 100 100 100 08/31/21 12:15 08/31/21 12:30 08/31/21 12:51 Temperature Pulse Rate 62 60 61 Respiratory Rate 14 18 12 Blood Pressure 220/107 H 213/116 H 227/107 H Pulse Oximetry 99 99 100 08/31/21 13:00 08/31/21 13:16 08/31/21 13:30 Temperature Pulse Rate 66 75 67 Respiratory Rate 25 H 21 20 Blood Pressure 210/103 H 234/121 H 218/108 H Pulse Oximetry 100 100 100 08/31/21 13:45 08/31/21 14:05 08/31/21 14:26 Temperature Pulse Rate 74 73 72 Respiratory Rate 18 13 Blood Pressure 212/96 H 217/108 H Pulse Oximetry 100 100 08/31/21 14:30 08/31/21 14:45 08/31/21 15:00 Temperature Pulse Rate 72 63 72 Respiratory Rate 13 15 13 Blood Pressure 218/113 H 215/118 H 229/124 H Pulse Oximetry 100 100 100 08/31/21 15:15 08/31/21 15:30 08/31/21 15:45 Temperature Pulse Rate 60 61 66 Respiratory Rate 11 L 20 25 H Blood Pressure 210/116 H 210/126 H 198/100 H Pulse Oximetry 100 100 99 08/31/21 16:00 08/31/21 16:01 08/31/21 16:13 Temperature Pulse Rate 57 L 59 L 64 Respiratory Rate 11 L 11 L 21 Blood Pressure 220/109 H 215/101 H Pulse Oximetry 100 100 99 08/31/21 16:15 08/31/21 16:30 08/31/21 16:46 Temperature Pulse Rate 68 79 79 Respiratory Rate 26 H 19 21 Blood Pressure 196/111 H 133/91 H 110/80 Pulse Oximetry 100 98 98 08/31/21 17:00 08/31/21 17:15 08/31/21 17:30 Temperature Pulse Rate 79 73 74 Respiratory Rate 18 20 17 Blood Pressure 113/79 107/73 114/76 Pulse Oximetry 98 98 97 08/31/21 17:45 08/31/21 18:00 08/31/21 18:15 Temperature Pulse Rate 72 69 70 Respiratory Rate 19 19 13 Blood Pressure 119/77 128/75 124/87 Pulse Oximetry 97 98 98 08/31/21 18:30 08/31/21 18:45 Temperature Pulse Rate 76 74 Respiratory Rate 18 14 Blood Pressure 119/74 115/76 Pulse Oximetry 99 98 <Ashley Carrasco, DO - Last Filed: 09/01/21 13:49> Orders Ordered: Discontinued Medications Hydrocodone Bitart/Acetaminophen (Hydrocodone/Acet 10/325 Tablet) 1 tab PO NOW ONE Stop: 08/31/21 13:23 Last Admin: 08/31/21 14:22 Dose: 1 tab Documented by: MELISSA Amlodipine Besylate (Amlodipine 5 Mg Tablet) 5 mg PO NOW ONE Stop: 08/31/21 13:32 Last Admin: 08/31/21 14:07 Dose: 5 mg Documented by: MELISSA Clonidine HCl (Clonidine 0.1 Mg Tablet) 0.2 mg PO NOW ONE Stop: 08/31/21 13:32 Last Admin: 08/31/21 14:25 Dose: 0.2 mg Documented by: MELISSA Sodium Chloride (Normal Saline 0.9%) 1,000 mls @ 1,000 mls/hr IV BOLUS ONE Stop: 08/31/21 13:13 Last Infusion: 08/31/21 13:56 Dose: 0 mls/hr Documented by: Admin: 08/31/21 12:15 Dose: 1,000 mls/hr Documented by: MELISSA Lisinopril (Lisinopril 5 Mg Tablet) 5 mg PO NOW ONE Stop: 08/31/21 13:35 Metoclopramide HCl (Metoclopramide 10 Mg/2 Ml Inj) 10 mg IV NOW ONE Stop: 08/31/21 15:19 Last Admin: 08/31/21 15:44 Dose: 10 mg Documented by: MELISSA Metoprolol Tartrate (Metoprolol Ir 25 Mg Tablet) 50 mg PO NOW ONE Stop: 08/31/21 13:32 Last Admin: 08/31/21 14:41 Dose: 50 mg Documented by: MELISSA Morphine Sulfate (Morphine 4 Mg/Ml Inj) 4 mg IV NOW ONE Stop: 08/31/21 11:53 Last Admin: 08/31/21 11:55 Dose: 4 mg Documented by: MELISSA Ondansetron HCl (Ondansetron 4 Mg/2 Ml Inj) 4 mg IV NOW ONE Stop: 08/31/21 11:18 Last Admin: 08/31/21 11:44 Dose: 4 mg Documented by: MELISSA Ondansetron HCl (Ondansetron 4 Mg/2 Ml Inj) 4 mg IV NOW ONE Stop: 08/31/21 13:24 Last Admin: 08/31/21 13:33 Dose: 4 mg Documented by: ATAYLOR Vital Signs Vital signs: Vital Signs - 8 hr 08/31/21 11:34 08/31/21 11:48 08/31/21 12:00 Temperature 98.5 F Pulse Rate 64 60 57 L Respiratory Rate 20 18 19 Blood Pressure 217/107 H 220/106 H 213/114 H Pulse Oximetry 100 100 100 08/31/21 12:15 08/31/21 12:30 08/31/21 12:51 Temperature Pulse Rate 62 60 61 Respiratory Rate 14 18 12 Blood Pressure 220/107 H 213/116 H 227/107 H Pulse Oximetry 99 99 100 08/31/21 13:00 08/31/21 13:16 08/31/21 13:30 Temperature Pulse Rate 66 75 67 Respiratory Rate 25 H 21 20 Blood Pressure 210/103 H 234/121 H 218/108 H Pulse Oximetry 100 100 100 08/31/21 13:45 08/31/21 14:05 08/31/21 14:26 Temperature Pulse Rate 74 73 72 Respiratory Rate 18 13 Blood Pressure 212/96 H 217/108 H Pulse Oximetry 100 100 08/31/21 14:30 08/31/21 14:45 08/31/21 15:00 Temperature Pulse Rate 72 63 72 Respiratory Rate 13 15 13 Blood Pressure 218/113 H 215/118 H 229/124 H Pulse Oximetry 100 100 100 08/31/21 15:15 08/31/21 15:30 08/31/21 15:45 Temperature Pulse Rate 60 61 66 Respiratory Rate 11 L 20 25 H Blood Pressure 210/116 H 210/126 H 198/100 H Pulse Oximetry 100 100 99 08/31/21 16:00 08/31/21 16:01 08/31/21 16:13 Temperature Pulse Rate 57 L 59 L 64 Respiratory Rate 11 L 11 L 21 Blood Pressure 220/109 H 215/101 H Pulse Oximetry 100 100 99 08/31/21 16:15 08/31/21 16:30 08/31/21 16:46 Temperature Pulse Rate 68 79 79 Respiratory Rate 26 H 19 21 Blood Pressure 196/111 H 133/91 H 110/80 Pulse Oximetry 100 98 98 08/31/21 17:00 08/31/21 17:15 08/31/21 17:30 Temperature Pulse Rate 79 73 74 Respiratory Rate 18 20 17 Blood Pressure 113/79 107/73 114/76 Pulse Oximetry 98 98 97 08/31/21 17:45 08/31/21 18:00 08/31/21 18:15 Temperature Pulse Rate 72 69 70 Respiratory Rate 19 19 13 Blood Pressure 119/77 128/75 124/87 Pulse Oximetry 97 98 98 08/31/21 18:30 08/31/21 18:45 Temperature Pulse Rate 76 74 Respiratory Rate 18 14 Blood Pressure 119/74 115/76 Pulse Oximetry 99 98 MDM - Nausea/Vomiting/Diarrhea <Mayuri Arreola PA-C - Last Filed: 08/31/21 19:06> Lab Data Lab results narrative: No acute findings Result diagrams: 08/31/21 11:45 08/31/21 11:45 Labs: Lab Results 08/31/21 08/31/21 08/31/21 Range/Units 11:35 11:45 11:45 WBC 3.8 L (4.5-11.0) X10^3/uL RBC 4.67 (4.5-5.9) X10^6/uL Hgb 14.9 (13.5-17.5) g/dL Hct 41.5 (41-53) % MCV 88.9 (80-100) fL MCH 31.9 (26-34) PG MCHC 35.9 (30-36) % RDW 13.4 (11.6-14.8) % Plt Count 122 L (150-400) X10^3/uL Neut % (Auto) 79.1 H (50-75) % Lymph % (Auto) 13.7 L (25-40) % Whiteside % (Auto) 6.0 (3-14) % Eos % (Auto) 0.3 L (2-4) % Baso % (Auto) 0.9 (0-2) % Neut # (Auto) 3000 (8380-1832) /uL Lymph # (Auto) 500 L (5882-9880) /uL Whiteside # (Auto) 200 (0-900) /uL Eos # (Auto) 0 (0-450) /uL Baso # (Auto) 0 (0-100) /uL PT (10.1-12.7) SECONDS INR (0.9-1.3) APTT (26.4-36.2) SECONDS Sodium 137 (137-145) mmol/L Potassium 5.3 H (3.4-5.1) mmol/L Chloride 103 (98-107) mmol/L Carbon Dioxide 22 (22-32) mmol/L BUN 15 (9-20) mg/dL Creatinine 0.63 L (0.66-1.25) mg/dL Estimated GFR > 60.0 (>60) mL/min BUN/Creatinine Ratio 23.8 H (6-22) Glucose 198 H (80-110) mg/dL Calcium 10.1 (8.4-10.2) mg/dL Magnesium 1.6 (1.6-2.3) mg/dL Total Bilirubin 1.8 H (0.2-1.3) mg/dL AST 191 H (17-59) IU/L ALT 172 H (<50) IU/L Alkaline Phosphatase 115 (38-126) U/L Total Creatine Kinase 84 (55-170) U/L CK-MB (CK-2) TNP CK-MB (CK-2) Rel Index TNP Troponin I 0.013 (0.01-0.034) ng/mL Total Protein 9.9 H* (6.3-8.2) g/dL Albumin 5.3 H (3.5-5.0) g/dL Globulin 4.6 H (1.7-4.1) g/dL Albumin/Globulin Ratio 1.2 (1.0-2.8) Lipase 70 (23-300) U/L Urine Color Yellow Urine Appearance Clear Urine pH 7.0 (4.5-8.0) Ur Specific Pride 1.020 (1.000-1.035) Urine Protein Trace H (Negative) Urine Glucose (UA) 1+ H (Negative) g/dL Urine Ketones 2+ H (NEGATIVE) Urine Occult Blood Trace-lysed (Negative) Urine Nitrate Negative (Negative) Urine Bilirubin Negative (NEGATIVE) Urine Urobilinogen 0.2 (0.2) E.U./dL Ur Leukocyte Esterase Negative (NEGATIVE) Urine RBC None seen (0-5/HPF) Urine WBC None seen (0-5/HPF) Urine Bacteria None seen (None) Ur Culture Indicated? Cult not indicated SARS-CoV-2 (PCR) (Negative) 08/31/21 08/31/21 Range/Units 11:48 13:00 WBC (4.5-11.0) X10^3/uL RBC (4.5-5.9) X10^6/uL Hgb (13.5-17.5) g/dL Hct (41-53) % MCV (80-100) fL MCH (26-34) PG MCHC (30-36) % RDW (11.6-14.8) % Plt Count (150-400) X10^3/uL Neut % (Auto) (50-75) % Lymph % (Auto) (25-40) % Whiteside % (Auto) (3-14) % Eos % (Auto) (2-4) % Baso % (Auto) (0-2) % Neut # (Auto) (0663-4389) /uL Lymph # (Auto) (4353-8468) /uL Whiteside # (Auto) (0-900) /uL Eos # (Auto) (0-450) /uL Baso # (Auto) (0-100) /uL PT 12.7 (10.1-12.7) SECONDS INR 1.1 (0.9-1.3) APTT 28 (26.4-36.2) SECONDS Sodium (137-145) mmol/L Potassium (3.4-5.1) mmol/L Chloride (98-107) mmol/L Carbon Dioxide (22-32) mmol/L BUN (9-20) mg/dL Creatinine (0.66-1.25) mg/dL Estimated GFR (>60) mL/min BUN/Creatinine Ratio (6-22) Glucose (80-110) mg/dL Calcium (8.4-10.2) mg/dL Magnesium (1.6-2.3) mg/dL Total Bilirubin (0.2-1.3) mg/dL AST (17-59) IU/L ALT (<50) IU/L Alkaline Phosphatase (38-126) U/L Total Creatine Kinase (55-170) U/L CK-MB (CK-2) CK-MB (CK-2) Rel Index Troponin I (0.01-0.034) ng/mL Total Protein (6.3-8.2) g/dL Albumin (3.5-5.0) g/dL Globulin (1.7-4.1) g/dL Albumin/Globulin Ratio (1.0-2.8) Lipase (23-300) U/L Urine Color Urine Appearance Urine pH (4.5-8.0) Ur Specific Pride (1.000-1.035) Urine Protein (Negative) Urine Glucose (UA) (Negative) g/dL Urine Ketones (NEGATIVE) Urine Occult Blood (Negative) Urine Nitrate (Negative) Urine Bilirubin (NEGATIVE) Urine Urobilinogen (0.2) E.U./dL Ur Leukocyte Esterase (NEGATIVE) Urine RBC (0-5/HPF) Urine WBC (0-5/HPF) Urine Bacteria (None) Ur Culture Indicated? SARS-CoV-2 (PCR) Negative (Negative) Urine Dip Bedside Urine Glucose 250 mg/dl Bedside Urine Bilirubin - Negative Bedside Urine Ketone +++ 80 Urine Specific Pride 1.025 Bedside Urine Occult Blood - Negative Bedside Urine pH 6.0 Bedside Urine Protein + 30 Bedside Urine Urobilinogen - Negative Bedside Urine Nitrite - Negative Bedside Urine Leukocytes - Negative Esterase Imaging Data CT scan - abdomen/pelvis: Radiologist's Impression: PROCEDURE:? CT ABDOMEN PELVIS W CON ? INDICATIONS:? N/V/D, abd pain ? TECHNIQUE:? After the administration of IV contrast, axial sections were acquired from the lung bases to the pubic symphysis.? Coronal and sagittal reformats were performed.? For radiation dose reduction, the following was used:? automated exposure control, adjustment of mA and/or kV according to patient size. ? COMPARISON:? [facility], CT, CT ABDOMEN PELVIS W CON, 11/10/2020, 11:07.? [facility], CT, CT ABDOMEN PELVIS W CON, 03/01/2021, 11:14. ? FINDINGS:? Image quality:? Excellent.? ? Lung bases:? Unremarkable.? ? Heart:? Heart size at the upper limits of normal with coronary artery calcification and trace chronic pericardial effusion. ? ? ABDOMEN: Liver:? Coarse benign calcifications in the liver dome.? No new liver masses.? Mild hypertrophy of the left and caudate lobes of the liver. Gallbladder:? Normal wall thickness. Biliary ducts:? Nondilated. Pancreas:? Normal. Spleen:? Normal size. Adrenal Glands:? No nodules. Kidneys and Ureters:? Normal enhancement.? No hydronephrosis or hydroureter.? No calcifications.? Small right lower pole intraparenchymal cyst.? No ureteral calcifications visible. ? Stomach and Bowel:? Known intestinal malrotation.? No small bowel obstruction.? Normal appendix.? Diverticulosis in the distal descending and sigmoid colon.? Mild sigmoid colon wall thickening without significant inflammatory change. Peritoneum:? No abnormal intraperitoneal fluid.? No free air.? ? Ventral Wall: ? No hernia.? Abdominal Nodes:? No retroperitoneal or mesenteric adenopathy by size criteria.? Vessels:? Aorta and inferior vena cava are normal in size.? Mild abdominal aortic atherosclerotic calcification. ? PELVIS: Pelvic Organs:? Normal size prostate gland with fiducial markers in place. Bladder:? Normal bladder wall thickness. Pelvic Nodes: No enlarged lymph nodes.? Miscellaneous: No inguinal hernias are seen. ? ? ? Bones:? Enlarging subcentimeter sclerotic foci in the L2 vertebral body and bilateral sacral ala. ? ? IMPRESSION:? ? 1. Diverticulosis with chronic wall thickening of the sigmoid colon.? No acute inflammation. 2. Enlarging sclerotic foci in the bilateral sacral ala and L2 vertebral body.? Correlate with PSA levels. ? ? Dictated by: Michaela Bueno M.D. on 08/31/2021 at 14:07 ? ? Approved by: Michaela Bueno M.D. on 08/31/2021 at 14:21 ? MDM Narrative Medical decision making narrative: 66-year-old male with past medical history diabetes, essential hypertension, hyperlipidemia, prostate cancer, paroxysmal AFib, cannabis abuse, peripheral neuropathy, coronary artery disease, hepatitis C, diverticulosis presents to the ED with 3 days of diarrhea, nausea, vomiting, abdominal pain. Concern for cyclical vomiting versus diverticulitis versus bowel obstruction versus appendicitis versus dehydration versus kidney stones versus gastroenteritis Will order labs, lipase, CT abdomen pelvis. Will treat symptoms with Zofran, morphine, IV fluids. Will treat hypertension with patient's regular hypertension medications, after the emesis is controlled. Will reassess. <Ashley Carrasco, - Last Filed: 09/01/21 13:49> Lab Data Labs: Lab Results 08/31/21 08/31/21 08/31/21 Range/Units 11:35 11:45 11:45 WBC 3.8 L (4.5-11.0) X10^3/uL RBC 4.67 (4.5-5.9) X10^6/uL Hgb 14.9 (13.5-17.5) g/dL Hct 41.5 (41-53) % MCV 88.9 (80-100) fL MCH 31.9 (26-34) PG MCHC 35.9 (30-36) % RDW 13.4 (11.6-14.8) % Plt Count 122 L (150-400) X10^3/uL Neut % (Auto) 79.1 H (50-75) % Lymph % (Auto) 13.7 L (25-40) % Whiteside % (Auto) 6.0 (3-14) % Eos % (Auto) 0.3 L (2-4) % Baso % (Auto) 0.9 (0-2) % Neut # (Auto) 3000 (4865-1982) /uL Lymph # (Auto) 500 L (4689-8602) /uL Whiteside # (Auto) 200 (0-900) /uL Eos # (Auto) 0 (0-450) /uL Baso # (Auto) 0 (0-100) /uL PT (10.1-12.7) SECONDS INR (0.9-1.3) APTT (26.4-36.2) SECONDS Sodium 137 (137-145) mmol/L Potassium 5.3 H (3.4-5.1) mmol/L Chloride 103 (98-107) mmol/L Carbon Dioxide 22 (22-32) mmol/L BUN 15 (9-20) mg/dL Creatinine 0.63 L (0.66-1.25) mg/dL Estimated GFR > 60.0 (>60) mL/min BUN/Creatinine Ratio 23.8 H (6-22) Glucose 198 H (80-110) mg/dL Calcium 10.1 (8.4-10.2) mg/dL Magnesium 1.6 (1.6-2.3) mg/dL Total Bilirubin 1.8 H (0.2-1.3) mg/dL AST 191 H (17-59) IU/L ALT 172 H (<50) IU/L Alkaline Phosphatase 115 (38-126) U/L Total Creatine Kinase 84 (55-170) U/L CK-MB (CK-2) TNP CK-MB (CK-2) Rel Index TNP Troponin I 0.013 (0.01-0.034) ng/mL Total Protein 9.9 H* (6.3-8.2) g/dL Albumin 5.3 H (3.5-5.0) g/dL Globulin 4.6 H (1.7-4.1) g/dL Albumin/Globulin Ratio 1.2 (1.0-2.8) Lipase 70 (23-300) U/L Urine Color Yellow Urine Appearance Clear Urine pH 7.0 (4.5-8.0) Ur Specific Pride 1.020 (1.000-1.035) Urine Protein Trace H (Negative) Urine Glucose (UA) 1+ H (Negative) g/dL Urine Ketones 2+ H (NEGATIVE) Urine Occult Blood Trace-lysed (Negative) Urine Nitrate Negative (Negative) Urine Bilirubin Negative (NEGATIVE) Urine Urobilinogen 0.2 (0.2) E.U./dL Ur Leukocyte Esterase Negative (NEGATIVE) Urine RBC None seen (0-5/HPF) Urine WBC None seen (0-5/HPF) Urine Bacteria None seen (None) Ur Culture Indicated? Cult not indicated SARS-CoV-2 (PCR) (Negative) 08/31/21 08/31/21 Range/Units 11:48 13:00 WBC (4.5-11.0) X10^3/uL RBC (4.5-5.9) X10^6/uL Hgb (13.5-17.5) g/dL Hct (41-53) % MCV (80-100) fL MCH (26-34) PG MCHC (30-36) % RDW (11.6-14.8) % Plt Count (150-400) X10^3/uL Neut % (Auto) (50-75) % Lymph % (Auto) (25-40) % Whiteside % (Auto) (3-14) % Eos % (Auto) (2-4) % Baso % (Auto) (0-2) % Neut # (Auto) (2580-2436) /uL Lymph # (Auto) (5319-6284) /uL Whiteside # (Auto) (0-900) /uL Eos # (Auto) (0-450) /uL Baso # (Auto) (0-100) /uL PT 12.7 (10.1-12.7) SECONDS INR 1.1 (0.9-1.3) APTT 28 (26.4-36.2) SECONDS Sodium (137-145) mmol/L Potassium (3.4-5.1) mmol/L Chloride (98-107) mmol/L Carbon Dioxide (22-32) mmol/L BUN (9-20) mg/dL Creatinine (0.66-1.25) mg/dL Estimated GFR (>60) mL/min BUN/Creatinine Ratio (6-22) Glucose (80-110) mg/dL Calcium (8.4-10.2) mg/dL Magnesium (1.6-2.3) mg/dL Total Bilirubin (0.2-1.3) mg/dL AST (17-59) IU/L ALT (<50) IU/L Alkaline Phosphatase (38-126) U/L Total Creatine Kinase (55-170) U/L CK-MB (CK-2) CK-MB (CK-2) Rel Index Troponin I (0.01-0.034) ng/mL Total Protein (6.3-8.2) g/dL Albumin (3.5-5.0) g/dL Globulin (1.7-4.1) g/dL Albumin/Globulin Ratio (1.0-2.8) Lipase (23-300) U/L Urine Color Urine Appearance Urine pH (4.5-8.0) Ur Specific Pride (1.000-1.035) Urine Protein (Negative) Urine Glucose (UA) (Negative) g/dL Urine Ketones (NEGATIVE) Urine Occult Blood (Negative) Urine Nitrate (Negative) Urine Bilirubin (NEGATIVE) Urine Urobilinogen (0.2) E.U./dL Ur Leukocyte Esterase (NEGATIVE) Urine RBC (0-5/HPF) Urine WBC (0-5/HPF) Urine Bacteria (None) Ur Culture Indicated? SARS-CoV-2 (PCR) Negative (Negative) Urine Dip Bedside Urine Glucose 250 mg/dl Bedside Urine Bilirubin - Negative Bedside Urine Ketone +++ 80 Urine Specific Pride 1.025 Bedside Urine Occult Blood - Negative Bedside Urine pH 6.0 Bedside Urine Protein + 30 Bedside Urine Urobilinogen - Negative Bedside Urine Nitrite - Negative Bedside Urine Leukocytes - Negative Esterase Discharge Plan Departure Patient Disposition: Home Clinical Impression: Nausea & vomiting Instructions: Nausea and Vomiting-Adult Activity Restrictions/Additional Instructions: You were evaluated in the ED today for diarrhea, nausea, vomiting, abdominal pain. Your labs and CT abdomen pelvis were normal. Your symptoms improved with the medications and IV fluids. Please continue to stay hydrated. Please follow-up with your PCP. Please return to the ED if you experience worsening symptoms, fevers, chills, chest pain, shortness of breath. Prescriptions: No Action ondansetron 4 mg tablet,disintegrating 4 mg PO Q6H PRN (Reason: Nausea) Qty: 30 3RF metformin 500 mg tablet 500 mg PO BID Qty: 180 1RF oxycodone 5 mg tablet 10 mg PO Q4H PRN (Reason: pain) Qty: 360 0RF simvastatin 40 mg tablet 40 mg PO QPM Qty: 90 1RF omeprazole 40 mg capsule,delayed release(DR/EC) 40 mg PO BID Qty: 180 3RF metoprolol succinate 50 mg tablet extended release 24 hr 50 mg PO BID 0RF clonidine HCl 0.1 mg tablet 0.1 mg PO BID Qty: 360 3RF cyclobenzaprine 5 mg tablet 5 mg PO TID PRN (Reason: Spasms) Qty: 60 0RF aspirin 81 mg Tablet,Chewable 81 mg PO QAM 0RF sennosides [senna] 8.6 mg Tablet 8.6 mg PO DAILY 0RF duloxetine [Cymbalta] 20 mg Capsule,Delayed Release(Dr/Ec) 20 mg PO DAILY Qty: 90 3RF tamsulosin 0.4 mg capsule 0.4 mg PO QPM 0RF promethazine 25 mg suppository 25 mg IN Q4-6H PRN (Reason: nausea and vomiting) Qty: 12 0RF Referrals: Khang Vasques MD [Primary Care Provider] - <Ashley Carrasco DO - Last Filed: 09/01/21 13:49> Cosign ED Attending [place]ature Attestation: I was immediately available in the department for consultation. Documentation has been reviewed.
--- NOTE | 2021-08-31 16:27 | PC.NURSE ---
Pt reports some improvement in nausea and pain since Reglan.
--- NOTE | 2021-08-31 18:05 | PC.NURSE ---
Woke pt and he denies nausea, reports relief of pain.
--- NOTE | 2021-08-31 18:50 | PC.NURSE ---
Called caregiver, Lisandra, to picker pt for discharge - ETA 40 minutes.
== END 2021-08-31 19:30 | disposition home or self-care (01) ==
PROVIDERS: Emergency Medicine; Emergency Provider Student in an Organized Health Care Education/Training Program; PCP Internal Medicine
DX: R11.2 Nausea with vomiting, unspecified (principal); Z20.822 Contact with and (suspected) exposure to COVID-19
CPT/HCPCS: 36415; 71045; 74177; 80053; 81001; 81003; 82550; 83690; 83735; 84484; 85025; 85610; 85730; 87635; 93005; 96361; 96374; 96375; 96376; 99284; 99285; C9803; J2270; J2405; J2765; Q9967

== ENCOUNTER 2021-09-01 07:47 | Emergency (ER) | payer OTHER, SELFPAY ==
[2021-06-29 15:36] VITALS: BMI 21.4
[2021-09-01] VITALS (87 sets, daily range): BP systolic 116–223; BP diastolic 69–119; PULSE 57–105; RESP 12–63; TEMP 36.5; O2SAT 96–100; BMI 18.2
--- NOTE | 2021-09-01 07:55 | DI.RAD.S_ITS ---
PROCEDURE: XR CHEST 1V INDICATIONS: chest pain TECHNIQUE: One view of the chest was acquired. COMPARISON: [facility], CR, XR CHEST 1V, 08/31/2021, 11:21. FINDINGS: Surgical changes and devices: None. Lungs and pleura: Lungs are clear. No pleural effusions or pneumothorax. Mediastinum: Mediastinal contours appear normal. Heart size is normal. Bones and chest wall: No suspicious bony lesions. Overlying soft tissues appear unremarkable. IMPRESSION: No acute cardiopulmonary disease. Dictated by: Michaela Bueno M.D. on 09/01/2021 at 9:05 Approved by: Michaela Bueno M.D. on 09/01/2021 at 9:06
--- NOTE | 2021-09-01 08:06 | ED_ITS ---
HPI - Chest Pain General Chief Complaint: Chest Pain Stated Complaint: Hypertension, CP Time Seen by Provider: 09/01/21 08:05 Source: patient and EMS Mode of arrival: EMS Limitations: no limitations Limitations: no limitations History of Present Illness HPI narrative: This is a 66-year-old male history of diabetes, hypertension, dyslipidemia, prostate cancer proximal atrial fibrillation which had ablation in September, coronary artery disease, hepatitis-C, diverticulosis and peripheral neuropathy. Patient was seen here yesterday for nausea, vomiting and diarrhea as well as hypertension. Patient was quite hypertensive in the department but improved with oral medications after having his nausea and vomiting treated. He states Tuesday night he had some sugar free treats which gave him nausea vomiting and diarrhea into Tuesday. He was unable to take his medications his blood pressure was in the 200 systolic range. He was seen here and discharged home feeling better without any nausea vomiting and blood pressure of 120. Patient states he did not take his home evening meds. He took his morning meds at 6:00 a.m. and started to feel unwell about 6:30 a.m.. He states he has little bit of pain or pressure in his chest but indicates the epigastric area when he points. He denies any shortness of breath currently. No fevers or chills but does have sweats. He had 1 episode of nausea and vomiting in the department. He has not had any additional diarrhea. He has not had a bowel movement since Tuesday. He does have chronic back and thoracic pain which he states is unchanged from his normal. He did develop a headache after receiving nitro sublingual he EMS this morning. Patient states that did not make any difference in his chest pain. He denies any swelling in his extremities. 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 He has also had ablation for AFib which seems to have been successful. He is on medications for diabetes, hypertension and dyslipidemia. These include omeprazole, cloni dine, metoprolol, metformin, aspirin, simvastatin, tamsulosin and duloxetine. He also takes cyclobenzaprine, Zofran, oxycodone and promethazine as needed. Related Data Home Medications Medication Instructions Recorded Confirmed tamsulosin 0.4 mg capsule 0.4 mg PO QPM 08/15/19 09/01/21 aspirin 81 mg chewable tablet 81 mg PO QAM 11/06/19 09/01/21 metoprolol succinate 50 mg 50 mg PO BID tab 03/13/21 09/01/21 tablet,extended release 24 hr sennosides 8.6 mg tablet (senna) 8.6 mg PO DAILY 06/29/21 09/01/21 Previous Rx's Medication Instructions Recorded promethazine 25 mg rectal 25 mg CO Q4-6H PRN #12 ea 11/18/20 suppository cyclobenzaprine 5 mg tablet 5 mg PO TID PRN #60 tab 02/13/21 ondansetron 4 mg disintegrating 4 mg PO Q6H PRN #30 tab 03/11/21 tablet metformin 500 mg tablet 500 mg PO BID #180 tab 05/19/21 duloxetine 20 mg capsule,delayed 20 mg PO DAILY #90 cap 07/01/21 release (Cymbalta) oxycodone 5 mg tablet 10 mg PO Q4H PRN #360 tab 07/23/21 simvastatin 40 mg tablet 40 mg PO QPM #90 tab 08/03/21 clonidine HCl 0.1 mg tablet 0.1 mg PO BID #360 tab 08/18/21 omeprazole 40 mg capsule,delayed 40 mg PO BID #180 cap 08/21/21 release Allergies Allergy/AdvReac Type Severity Reaction Status Date / Time No Known Drug Allergies Allergy Verified 08/18/21 09:28 Review of Systems Review of Systems ROS Unobtainable: All systems reviewed & are unremarkable except as noted in HPI and below Patient History Medical History Cannabis abuse Chronic hepatitis Coronary artery disease involving [place] coronary artery of [place] heart without angina pectoris (~2006) Diabetes type 2, uncontrolled Diverticulosis of large intestine (03/31/12) Essential hypertension Generalized anxiety disorder Kidney stones Mixed hyperlipidemia Paroxysmal A-fib Prostate cancer (~05/2019) Surgical History H/O heart artery stent (~2006) History of angioplasty (~12/2006) Hx of inguinal hernia surgery (~09/20/08) Hx of inguinal hernia surgery (~03/07/14) Status post laminectomy Social History marital status: unmarried,single number of children: 3 household members: none lives independently: Yes caregiver/support person: No housing: house pets and animals: No education level: high school occupational status: other 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/sabianist: None leisure activities: music, fishing and other Smoking Status: Never smoker Tobacco: How many years used: 56 Smokeless tobacco user: other quit status: has quit before second hand exposure: Yes (On farmland/Boat.) alcohol intake: former substance use type: does not use and marijuana eating out: rarely or never Type(s) of exercise: normal ROM and activity and additional Smoking Status: Never smoker alcohol intake frequency: 0-2 drinks per day Alcohol type: beer Substance Use Type: marijuana Exam Narrative Exam Narrative: GEN: Male, alert and oriented x 3, patient appears to be in mild distress. HEENT: Atraumatic, pupils are equal round reactive to light, extraocular movements are intact, nares are clear, no facial droop. HEART: Regular rate and rhythm without murmur, clicks, rubs. Pulses are equal in upper and lower extremities LUNGS:Lungs clear to auscultation, no wheezes, rales, crackles, chest moves symmetrically, no tachypnea accessory muscle use. ABD:bowel sounds normal, soft, non-tender, no guarding, rebound, rigidity, no masses noted, no hepatosplenomegaly, no pulsatile mass or abdominal bruit. :No CVA tenderness MSCL: Non-tender, no muscle atrophy, muscles strength 5/5 upper and lower extremities, full range of motion. NEURO:CN 2-12 intact, sensation normal SKIN: No rash, erythema or skin changes noted. Initial Vital Signs Initial Vital Signs: Vital Signs Pulse Rate 63 09/01/21 07:51 Respiratory Rate 22 09/01/21 07:51 Pulse Oximetry 97 09/01/21 07:51 Scores GCS [place] coma scale eye opening: Spontaneous [place] coma scale verbal response: Orientated [place] coma scale motor response: Obey commands Marcy coma scale total score: 15 Course Orders Ordered: ED Orders 09/01/21 09:44 Urine Culture Stat Urine Drug Screen, Rapid Stat Urine Microscopic Stat 09/01/21 10:22 COVID19 - ADMIT (ROUGHER FOR CEMENT swab/PCR) Stat 09/01/21 10:41 Troponin I Stat 09/01/21 11:39 Consult to Tele-direct sales consultant Stat 09/01/21 11:46 MR head/brain wo/w con Stat Nicardipine HCl 25 mg/ Sodium (Chloride) 250 mls @ 50 mls/hr IV TITRATE KAITLIN; Protocol Last Titration: 09/01/21 13:38 Dose: 0 mg/hr, 0 mls/hr Documented by: Titration: 09/01/21 13:14 Dose: 5 mg/hr, 50 mls/hr Documented by: Titration: 09/01/21 11:45 Dose: 0 mg/hr, 0 mls/hr Documented by: Admin: 09/01/21 10:14 Dose: 5 mg/hr, 50 mls/hr Documented by: FIONA Sodium Chloride (Normal Saline 0.9%) 1,000 mls @ 40 mls/hr IV BOLUS ONE Stop: 09/02/21 11:14 Last Infusion: 09/01/21 13:38 Dose: 0 mls/hr Documented by: Infusion: 09/01/21 13:16 Dose: 40 mls/hr Documented by: Infusion: 09/01/21 11:45 Dose: 0 mls/hr Documented by: Admin: 09/01/21 10:16 Dose: 40 mls/hr Documented by: FIONA Discontinued Medications Clonidine HCl (Clonidine 0.1 Mg Tablet) 0.1 mg PO NOW ONE Stop: 09/01/21 11:43 Last Admin: 09/01/21 12:04 Dose: 0.1 mg Documented by: FIONA Hydralazine HCl (Hydralazine 20 Mg/Ml Vial) 10 mg IV NOW ONE Stop: 09/01/21 08:31 Last Admin: 09/01/21 09:07 Dose: 10 mg Documented by: FIONA Hydromorphone HCl (Hydromorphone 1 Mg Inj) 1 mg IV NOW ONE Stop: 09/01/21 11:24 Last Admin: 09/01/21 11:36 Dose: 1 mg Documented by: FIONA Hydromorphone HCl (Hydromorphone 1 Mg Inj) 1 mg IV NOW ONE Stop: 09/01/21 13:27 Last Admin: 09/01/21 13:33 Dose: 1 mg Documented by: FIONA Hydromorphone HCl (Hydromorphone 1 Mg Inj) 1 mg IV NOW ONE Stop: 09/01/21 13:28 Last Admin: 09/01/21 16:22 Dose: Not Given Documented by: Hydromorphone HCl (Hydromorphone 0.5 Mg Inj) 0.5 mg IV NOW ONE Stop: 09/01/21 15:40 Last Admin: 09/01/21 16:24 Dose: 0.5 mg Documented by: Labetalol HCl (Labetalol 20 Mg/4 Ml Syringe) 10 mg IV NOW ONE Stop: 09/01/21 09:34 Last Admin: 09/01/21 09:45 Dose: 10 mg Documented by: FIONA Metoclopramide HCl (Metoclopramide 10 Mg/2 Ml Inj) 10 mg IV NOW ONE Stop: 09/01/21 15:03 Last Admin: 09/01/21 15:10 Dose: 10 mg Documented by: Metoprolol Succinate (Metoprolol Er 50 Mg Tablet) 50 mg PO NOW ONE Stop: 09/01/21 11:43 Last Admin: 09/01/21 12:04 Dose: 50 mg Documented by: FIONA Morphine Sulfate (Morphine 4 Mg/Ml Inj) 4 mg IV NOW ONE Stop: 09/01/21 08:31 Last Admin: 09/01/21 09:06 Dose: 4 mg Documented by: FIONA Ondansetron HCl (Ondansetron 4 Mg/2 Ml Inj) 4 mg IV NOW ONE Stop: 09/01/21 08:31 Last Admin: 09/01/21 09:04 Dose: 4 mg Documented by: FIONA Oxycodone HCl (Oxycodone Ir 5 Mg Tablet) 10 mg PO NOW ONE Stop: 09/01/21 12:41 Last Admin: 09/01/21 12:51 Dose: Not Given Documented by: FIONA Reevaluation(s) Reevaluation #1: Patient continues to have abdominal and back pain. He does have some chronic pain. His pressures have improved somewhat on nicardipine drip. Patient did not have any changes with hydralazine or labetalol initially. Reevaluation #2: Discussed with patient head CT has questionable findings of PRES, CT angio was negative. His labs are otherwise fairly reassuring blood pressures been quite elevated it did not respond initially to 2 different IV antibiotics and was started on nicardipine drip. This has improved significantly dropped him down to 150. Attempted to wean him over oral medication but he continues to be labile with his pressure and was restarted on drip. Consultations Consultation #1: Dr. Townsend, hospitalist at [facility]. Discussed patient has hypertensive urgency/emergency possibly PRES based on persistent hypertension and CT findings. Discussed if patient would be appropriate candidate for here and Dr. Townsend feels patient would be better suited outside facility. Consultation #2: Dr. Hogan, tele-direct sales consultant for [facility]. Patient's visit yesterday, findings today. His CT findings which are concerning for press. Patient has been hypertensive persistently. We discussed withdrawal. He has had 2 days is of IV narcotics with minimal improvement. He did take his a.m. medications but had missed doses yesterday. He recommends continuing narcotic pain drip patient becomes more normotensive can stop it and start his oral medications. And if he comes hypertensive again can restart. He would recommend MRI to evaluate for press more fully. He discussed that mainly it is blood pressure control. Consultation #3: Dr. Vasquez at [facility]. There is concern for hypertensive urgency/emergency versus PRES or other cause of patient's symptoms today. He does not appear to be in withdrawal he has not responded much to narcotics. His head CT did show changes concerning for possible press. CT angio was negative for dissection, aneurysm or other acute changes. Patient's labs are reassuring today. Patient has been hypertensive he had minimal improvement with labetalol and yasir drug as an IV was started cardia pain drip. He did start to improve and was attempted to be bridged with his oral therapies. He has had some lability but he has now been more persistent 150's. systolic. Vital Signs Vital signs: Vital Signs - 8 hr 09/01/21 10:40 09/01/21 10:42 09/01/21 10:45 Pulse Rate 89 94 H 93 H Respiratory Rate 22 Blood Pressure 186/105 H 185/96 H Pulse Oximetry 99 99 99 09/01/21 10:50 09/01/21 10:55 09/01/21 11:00 Pulse Rate 97 H 102 H 103 H Respiratory Rate 21 Blood Pressure 188/91 H 184/100 H 193/102 H Pulse Oximetry 99 99 99 09/01/21 11:05 09/01/21 11:06 09/01/21 11:10 Pulse Rate 100 H 102 H 103 H Respiratory Rate 16 14 39 H Blood Pressure 163/87 H 179/96 H Pulse Oximetry 99 98 99 09/01/21 11:15 09/01/21 11:20 09/01/21 11:25 Pulse Rate 105 H 99 H 104 H Respiratory Rate 29 H 20 Blood Pressure 176/97 H 171/89 H 167/93 H Pulse Oximetry 99 99 99 09/01/21 11:30 09/01/21 11:35 09/01/21 11:40 Pulse Rate 102 H 104 H 98 H Respiratory Rate 18 20 Blood Pressure 153/85 H 162/95 H Pulse Oximetry 98 99 98 09/01/21 11:45 09/01/21 11:50 09/01/21 11:55 Pulse Rate 89 94 H 89 Respiratory Rate Blood Pressure Pulse Oximetry 98 98 99 09/01/21 12:00 09/01/21 12:04 09/01/21 12:05 Pulse Rate 87 97 H 98 H Respiratory Rate Blood Pressure 162/95 H Pulse Oximetry 98 98 09/01/21 12:10 09/01/21 12:15 09/01/21 12:30 Pulse Rate 101 H 96 H 94 H Respiratory Rate 13 14 Blood Pressure Pulse Oximetry 98 98 98 09/01/21 12:40 09/01/21 12:45 09/01/21 13:00 Pulse Rate 90 93 H 90 Respiratory Rate 32 H Blood Pressure 204/110 H 208/111 H Pulse Oximetry 99 99 99 09/01/21 13:06 09/01/21 13:15 09/01/21 13:20 Pulse Rate 95 H 88 92 H Respiratory Rate 28 H 26 H Blood Pressure 204/111 H 190/98 H 198/106 H Pulse Oximetry 98 98 99 09/01/21 13:25 09/01/21 13:36 09/01/21 14:02 Pulse Rate 95 H 98 H 98 H Respiratory Rate 22 Blood Pressure 195/98 H 195/108 H Pulse Oximetry 98 98 09/01/21 14:03 09/01/21 14:05 09/01/21 14:10 Pulse Rate 97 H 89 87 Respiratory Rate 12 25 H Blood Pressure 153/91 H 159/89 H 152/87 H Pulse Oximetry 98 98 97 09/01/21 14:15 09/01/21 14:20 09/01/21 14:25 Pulse Rate 88 88 87 Respiratory Rate 22 20 21 Blood Pressure 153/87 H 145/87 H 155/91 H Pulse Oximetry 97 98 98 09/01/21 14:30 09/01/21 14:35 09/01/21 14:40 Pulse Rate 85 82 89 Respiratory Rate 29 H Blood Pressure 161/95 H 158/97 H 173/93 H Pulse Oximetry 97 98 96 09/01/21 14:45 09/01/21 14:50 09/01/21 14:55 Pulse Rate 86 91 H 84 Respiratory Rate 25 H 20 24 Blood Pressure 196/98 H 191/106 H 209/104 H Pulse Oximetry 99 98 98 09/01/21 15:00 09/01/21 15:05 09/01/21 15:10 Pulse Rate 86 92 H 86 Respiratory Rate 24 24 20 Blood Pressure 187/115 H 207/108 H 205/98 H Pulse Oximetry 99 98 99 09/01/21 15:15 09/01/21 15:20 09/01/21 15:25 Pulse Rate 86 83 86 Respiratory Rate 22 33 H 29 H Blood Pressure 198/106 H 194/106 H 210/107 H Pulse Oximetry 98 99 99 09/01/21 15:30 09/01/21 15:35 09/01/21 15:40 Pulse Rate 98 H 94 H 97 H Respiratory Rate 26 H 26 H Blood Pressure 177/95 H 193/100 H 170/94 H Pulse Oximetry 99 98 98 09/01/21 15:45 09/01/21 15:50 09/01/21 15:55 Pulse Rate 100 H 97 H 104 H Respiratory Rate 30 H 24 21 Blood Pressure 169/92 H 167/94 H 141/79 H Pulse Oximetry 98 97 98 09/01/21 16:00 09/01/21 16:05 09/01/21 16:10 Pulse Rate 101 H 103 H 97 H Respiratory Rate 20 18 Blood Pressure 146/85 H 141/79 H 142/78 H Pulse Oximetry 98 97 97 09/01/21 16:15 09/01/21 16:18 09/01/21 16:20 Pulse Rate 99 H 105 H 99 H Respiratory Rate 20 15 Blood Pressure 137/79 125/77 116/69 Pulse Oximetry 97 99 98 09/01/21 16:25 Pulse Rate 105 H Respiratory Rate Blood Pressure 138/86 Pulse Oximetry 98 MDM - Chest Pain Lab Data Result diagrams: 09/01/21 07:55 09/01/21 07:55 Labs: Lab Results 09/01/21 09/01/21 09/01/21 Range/Units 07:55 07:55 09:44 WBC 6.2 D (4.5-11.0) X10^3/uL RBC 4.60 (4.5-5.9) X10^6/uL Hgb 14.6 (13.5-17.5) g/dL Hct 41.1 (41-53) % MCV 89.4 (80-100) fL MCH 31.6 (26-34) PG MCHC 35.4 (30-36) % RDW 13.4 (11.6-14.8) % Plt Count 147 L (150-400) X10^3/uL Neut % (Auto) 66.7 (50-75) % Lymph % (Auto) 17.2 L (25-40) % [place] % (Auto) 15.4 H (3-14) % Eos % (Auto) 0.2 L (2-4) % Baso % (Auto) 0.5 (0-2) % Neut # (Auto) 4100 (7938-2071) /uL Lymph # (Auto) 1100 (1137-6879) /uL [place] # (Auto) 1000 H (0-900) /uL Eos # (Auto) 0 (0-450) /uL Baso # (Auto) 0 (0-100) /uL Sodium 138 (137-145) mmol/L Potassium 3.4 D (3.4-5.1) mmol/L Chloride 101 (98-107) mmol/L Carbon Dioxide 24 (22-32) mmol/L BUN 19 (9-20) mg/dL Creatinine 0.73 (0.66-1.25) mg/dL Estimated GFR > 60.0 (>60) mL/min BUN/Creatinine Ratio 26.0 H (6-22) Glucose 198 H (80-110) mg/dL Calcium 10.1 (8.4-10.2) mg/dL Magnesium 1.6 (1.6-2.3) mg/dL Total Bilirubin 1.0 (0.2-1.3) mg/dL AST 129 H (17-59) IU/L ALT 144 H (<50) IU/L Alkaline Phosphatase 100 (38-126) U/L Total Creatine Kinase 75 (55-170) U/L CK-MB (CK-2) TNP CK-MB (CK-2) Rel Index TNP Troponin I < 0.012 (0.01-0.034) ng/mL Total Protein 8.6 H (6.3-8.2) g/dL Albumin 4.8 (3.5-5.0) g/dL Globulin 3.8 (1.7-4.1) g/dL Albumin/Globulin Ratio 1.3 (1.0-2.8) Lipase 62 (23-300) U/L Urine RBC (0-5/HPF) Urine WBC (0-5/HPF) Urine Bacteria (None) Ur Culture Indicated? Micro UA Comment U Opiates 300ng/mL cut Positive H (Negative) Ur Oxycodone Screen Positive H (Negative) Urine Methadone Screen Negative (Negative) Ur Barbiturates Screen Negative (Negative) U Tricyclic Antidepress Negative (Negative) Ur Phencyclidine Scrn Negative (Negative) Ur Amphetamines Screen Negative (Negative) U Methamphetamines Scrn Negative (Negative) Ur MDMA Scrn (Ecstasy) Negative (Negative) U Benzodiazepines Scrn Negative (Negative) Urine Cocaine Screen Negative (Negative) U Marijuana (THC) Screen Positive H (Negative) SARS-CoV-2 (PCR) (Negative) 09/01/21 09/01/21 09/01/21 Range/Units 09:44 10:22 10:41 WBC (4.5-11.0) X10^3/uL RBC (4.5-5.9) X10^6/uL Hgb (13.5-17.5) g/dL Hct (41-53) % MCV (80-100) fL MCH (26-34) PG MCHC (30-36) % RDW (11.6-14.8) % Plt Count (150-400) X10^3/uL Neut % (Auto) (50-75) % Lymph % (Auto) (25-40) % [place] % (Auto) (3-14) % Eos % (Auto) (2-4) % Baso % (Auto) (0-2) % Neut # (Auto) (4942-7053) /uL Lymph # (Auto) (9719-1962) /uL [place] # (Auto) (0-900) /uL Eos # (Auto) (0-450) /uL Baso # (Auto) (0-100) /uL Sodium (137-145) mmol/L Potassium (3.4-5.1) mmol/L Chloride (98-107) mmol/L Carbon Dioxide (22-32) mmol/L BUN (9-20) mg/dL Creatinine (0.66-1.25) mg/dL Estimated GFR (>60) mL/min BUN/Creatinine Ratio (6-22) Glucose (80-110) mg/dL Calcium (8.4-10.2) mg/dL Magnesium (1.6-2.3) mg/dL Total Bilirubin (0.2-1.3) mg/dL AST (17-59) IU/L ALT (<50) IU/L Alkaline Phosphatase (38-126) U/L Total Creatine Kinase (55-170) U/L CK-MB (CK-2) CK-MB (CK-2) Rel Index Troponin I < 0.012 (0.01-0.034) ng/mL Total Protein (6.3-8.2) g/dL Albumin (3.5-5.0) g/dL Globulin (1.7-4.1) g/dL Albumin/Globulin Ratio (1.0-2.8) Lipase (23-300) U/L Urine RBC None seen (0-5/HPF) Urine WBC None seen (0-5/HPF) Urine Bacteria None seen (None) Ur Culture Indicated? Cult not indicated Micro UA Comment Microscopic normal U Opiates 300ng/mL cut (Negative) Ur Oxycodone Screen (Negative) Urine Methadone Screen (Negative) Ur Barbiturates Screen (Negative) U Tricyclic Antidepress (Negative) Ur Phencyclidine Scrn (Negative) Ur Amphetamines Screen (Negative) U Methamphetamines Scrn (Negative) Ur MDMA Scrn (Ecstasy) (Negative) U Benzodiazepines Scrn (Negative) Urine Cocaine Screen (Negative) U Marijuana (THC) Screen (Negative) SARS-CoV-2 (PCR) Negative (Negative) Urine Dip Bedside Urine Glucose Negative Bedside Urine Bilirubin - Negative Bedside Urine Ketone +++ 80 Urine Specific [place] 1.020 Bedside Urine Occult Blood - Negative Bedside Urine pH 6.0 Bedside Urine Protein ++ 100 Bedside Urine Urobilinogen - Negative Bedside Urine Nitrite - Negative Bedside Urine Leukocytes - Negative Esterase Imaging Data Chest x-ray: Radiologist's Impression: [address] [address] XRay Report Signed Patient: Brennan Marmolejo Jr MR#: [id number] : 1955 Acct:[id number] Age/Sex: 66 / M Date of Service: 09/01/21 Loc: ED Accession Number: [id number] ?? Procedure: XR chest 1V Ordering Provider: Ashley Carrasco D.O. PROCEDURE:? XR CHEST 1V ? INDICATIONS:? chest pain ? TECHNIQUE:? One view of the chest was acquired.? ? COMPARISON:? [facility], , XR CHEST 1V, 08/31/2021, 11:21. ? FINDINGS:? ? Surgical changes and devices:? None.? ? Lungs and pleura:? Lungs are clear.? No pleural effusions or pneumothorax.? ? Mediastinum:? Mediastinal contours appear normal.? Heart size is normal.? ? Bones and chest wall:? No suspicious bony lesions.? Overlying soft tissues appear unremarkable.? ? IMPRESSION:? No acute cardiopulmonary disease.? ? ? Dictated by: Michaela Bueno M.D. on 09/01/2021 at 9:05 ? ? Approved by: Michaela Bueno M.D. on 09/01/2021 at 9:06? CT scan - head: Radiologist's Impression: Brennan Marmolejo Jr?(Oj)??66??M??1955 ? Allergy/Adv: No Known Drug Allergies (More??) Close Head CT (Signed) Joya Arevalo - 09/01/21 Chest/Abdomen/Pelvis CTA 09/01/21 Chest X-Ray (Signed) Michaela Bueno - 09/01/21 Abdomen/Pelvis CT (Signed) Michaela Bueno - 08/31/21 Chest X-Ray (Signed) Eric Butt - 08/31/21 Chest X-Ray (Signed) LucaAdrian - 08/01/21 Chest X-Ray (Signed) Eulogio Perez - 06/29/21 Telemetry Strips 05/18/21 Abdomen/Pelvis CT (Signed) Esa Frost - 03/01/21 Telemetry Strips 02/28/21 Chest X-Ray (Signed) Esa Frost - 02/28/21 Telemetry Strips 01/12/21 Chest CTA (Signed) Donal Shane - 01/10/21 Abdomen/Pelvis CT (Signed) Donal Shane - 01/10/21 Chest CTA (Signed) WindsorAdrian ortiz - 12/20/20 Abdomen/Pelvis CT (Signed) Adrian Segovia - 12/20/[address] (Signed) Odin Morin - 12/20/20 Chest X-Ray (Signed) Odin Morin - 12/20/20 Abdomen/Pelvis CT (Signed) Joya Arevalo - 12/18/20 Telemetry Strips 11/12/20 Echocardiogram Ultrasound (Signed) Lukasz Hansen - 11/12/20 Myocardial Perfusion Scan Nuc Med (Signed) Lukasz Hansen - 11/12/20 Chest X-Ray (Signed) Hosea Vogel - 11/12/20 Abdomen/Pelvis CT (Signed) Michaela Bueno - 11/10/20 Abdomen/Pelvis CT (Signed) Ollie Marrero - 07/08/20 Bone Scan Nuclear Medicine (Signed) Laurent Trinidad - 06/12/20 Abdomen Ultrasound (Signed) Laurent Trinidad - 11/07/19 Chest X-Ray (Signed) Laurent Trinidad - 11/07/19 Chest X-Ray (Signed) Raghavendra Marcos - 11/06/19 Abdomen/Pelvis CT (Signed) Laurent Trinidad - 11/06/[address] [address] [address] Scan Report Signed Patient: Brennan Marmolejo Jr MR#: [id number] : 1955 Acct:[id number] Age/Sex: 66 / M Date of Service: 09/01/21 Loc: ED Accession Number: [id number] ?? Procedure: CT head/brain wo con Ordering Provider: Ashley Carrasco D.O. PROCEDURE:? CT HEAD/BRAIN WO CON ? INDICATIONS:? headache, hypertensive ? TECHNIQUE:? Noncontrast 4.5 mm thick angled axial sections acquired from the foramen magnum to the vertex, with coronal and sagittal reformats.? For radiation dose reduction, the following was used:? automated exposure control, adjustment of mA and/or kV according to patient size.? ? COMPARISON:? [facility], CT, CT HEAD/BRAIN WO CON, 12/20/2020, 21:06. ? FINDINGS:? Image quality:? Excellent.? ? CSF spaces:? Basal cisterns are patent.? No extra-axial fluid collections.? The ventricles are symmetric in size and shape.? ? Brain:? No intracranial bleeds or masses.? There is subtle decreased anterior knee patterson in the occipital lobe bilaterally.? There is mild cerebral volume loss for age, with resultant ventricular and sulcal prominence.? There are mild periventricular and deep white matter chronic small vessel ischemic changes.? There is intracranial internal carotid artery atherosclerosis.? ? Skull and face:? Calvarium and visualized facial bones appear intact, without suspicious lesions.? ? Sinuses:? Visualized sinuses and mastoids are clear.? ? IMPRESSION:? ? 1. Subtle decreased attenuation in occipital lobes bilaterally, suspicious for posterior reversible encephalopathy syndrome (PRES). ? 2. Mild cerebral volume loss and chronic microvascular ischemic changes. ? ? ? Dictated by: Ac Arevalo M.D. on 09/01/2021 at 9:08 ? ? Approved by: Ac Arevalo M.D. on 09/01/2021 at 9:12?? CTA chest/abd/pelvis: Radiologist's Impression: Brennan Marmolejo Jr?(Oj)??66??M??1955 ? Allergy/Adv: No Known Drug Allergies (More??) Close Head CT (Signed) Joya Arevalo - 09/01/21 Chest/Abdomen/Pelvis CTA (Signed) Eric Butt - 09/01/21 Chest X-Ray (Signed) Michaela Bueno - 09/01/21 Abdomen/Pelvis CT (Signed) Michaela Bueno - 08/31/21 Chest X-Ray (Signed) Eric Butt - 08/31/21 Chest X-Ray (Signed) Elyssa Segoviae - 08/01/21 Chest X-Ray (Signed) Eulogio Perez - 06/29/21 Telemetry Strips 05/18/21 Abdomen/Pelvis CT (Signed) Esa Frost - 03/01/21 Telemetry Strips 02/28/21 Chest X-Ray (Signed) Esa Frost - 02/28/21 Telemetry Strips 01/12/21 Chest CTA (Signed) Donal Shane - 01/10/21 Abdomen/Pelvis CT (Signed) AcostaDonal - 01/10/21 Chest CTA (Signed) LucaAdrian - 12/20/20 Abdomen/Pelvis CT (Signed) Adrian Segovia - 12/20/[address] (Signed) Odin Morin - 12/20/20 Chest X-Ray (Signed) Odin Morin - 12/20/20 Abdomen/Pelvis CT (Signed) Joya Arevalo - 12/18/20 Telemetry Strips 11/12/20 Echocardiogram Ultrasound (Signed) Lukasz Hansen - 11/12/20 Myocardial Perfusion Scan Nuc Med (Signed) Lukasz Hansen - 11/12/20 Chest X-Ray (Signed) Hosea Vogel - 11/12/20 Abdomen/Pelvis CT (Signed) Michaela Bueno - 11/10/20 Abdomen/Pelvis CT (Signed) Ollie Marrero - 07/08/20 Bone Scan Nuclear Medicine (Signed) Laurent Trinidad - 06/12/20 Abdomen Ultrasound (Signed) Laurent Trinidad - 11/07/19 Chest X-Ray (Signed) Laurent Trinidad - 11/07/19 Chest X-Ray (Signed) Raghavendra Marcos - 11/06/19 Abdomen/Pelvis CT (Signed) Laurent Trinidad - 11/06/[address] [address] [address] Scan Report Signed Patient: Brennan Marmolejo Jr MR#: [id number] : 1955 Acct:[id number] Age/Sex: 66 / M Date of Service: 09/01/21 Loc: ED Accession Number: [id number] ?? Procedure: CT angio chest abdomen pelvis Ordering Provider: Mank,Ashley C D.O. PROCEDURE:? CT ANGIO CHEST ABDOMEN PELVIS ? INDICATIONS:? chest pain, hypertensive 210/110's ? TECHNIQUE:? Precontrast 5 mm thick sections acquired from the lung apices to the iliac crests.? After the administration of intravenous contrast, 2.5 mm thick sections again acquired from the lung apices to the iliac crests.? Maximum intensity projection (MIP) oblique sagittal and coronal reformats were then acquired.? For radiation dose reduction, the following was used:? automated exposure control.? ? COMPARISON:? [facility], CT, CT ABDOMEN PELVIS W CON, 08/31/2021, 14:00.? [facility], CT, CT ANGIO CHEST ABDOMEN PELVIS, 06/18/2019, 11:59. ? FINDINGS:? Image quality:? Excellent.? ? AORTA:? No acute aortic syndrome.? No aortic dissection.? Ascending aorta measures 3.4 cm.? Mild calcified plaque at the aortic arch.? Left vertebral artery originates off of the aortic arch, variant anatomy. ? No pulmonary embolism. ? CHEST:? Lungs and pleura:? No acute airspace opacities.? Minimal atelectasis at the left lung base.? Mild paraseptal emphysema at the right apex.? No significant pulmonary nodules.? No pleural effusions or pneumothorax.? Central and peripheral airways are patent and normal in caliber.? ? Mediastinum:? Heart size is normal.? Three-vessel coronary artery calcifica tions.? No pericardial effusion.? No mediastinal or hilar adenopathy by size criteria.? Central pulmonary arteries are normal in size.? Esophagus is normal in caliber.? No hiatal hernias.? ? Bones and chest wall:? No axillary adenopathy by size criteria.? Thyroid gland is unremarkable.? No suspicious bony lesions.? No vertebral body compression fractures.? ? ? ABDOMEN:? Vasculature:? There is moderate calcified plaque in the abdominal aorta and iliac arteries.? No aneurysm.? Celiac trunk and mesenteric arteries are patent.? Renal arteries are also patent.? Portal vein is patent.? ? Solid organs:? Liver is normal in size and enhancement.? Coarse calcifications at the dome of the liver.? No focal lesion.? Gallbladder is not significantly distended.? Vicarious excretion of contrast in the gallbladder.? Biliary system is non dilated.? Pancreas enhances normally.? No peripancreatic fluid collection.? Punctate calcifications in the pancreas.? This is likely the sequelae of chronic calcific pancreatitis.? Spleen is normal in size and enhancement.? No adrenal nodules.? Both kidneys are normal in size and enhancement, without hydronephrosis.? ? Peritoneum and bowel:? No free fluid or air.? Bowel loops are normal in caliber and wall thickness.? Diverticulosis.? Mild thickening in the region of the sigmoid colon, ( and ), appears unchanged.? ? Nodes and vessels:? No retroperitoneal or mesenteric adenopathy by size criteria.? Inferior vena cava is normal in morphology.? ? Miscellaneous:? No ventral hernias.? ? ? PELVIS:? Genitourinary:? Bladder wall thickness is normal.? Excreted contrast in the urinary bladder.? Prominent prostate gland.? Prostate fiducial markers. ? Miscellaneous:? Suspect fat containing left inguinal hernia.? No adenopathy.? No ventral hernias.? ? Bones:? A few small sclerotic foci.? For example L2 vertebral body, right sacral ala which are new compared to 2019. Small sclerotic focus at the left sacrum appears unchanged compared to 2019. No vertebral body compression fractures.? ? ? IMPRESSION:? 1. No aortic dissection.? No acute aortic syndrome.? No aneurysm.? No pulmonary embolism. ? 2. Lungs are clear. ? 3. No acute inflammatory process is identified.? No free fluid.? Diverticulosis. ? 4. Small sclerotic foci at L2 and right sacrum are indeterminate.? Small prostate cancer metastases or bone islands could have this appearance.? The patient may benefit from nuclear medicine bone scan. ? ? ? Dictated by: Eric Butt M.D. on 09/01/2021 at 9:34 ? ? Approved by: Eric Butt M.D. on 09/01/2021 at 9:55?? MRI brain: Radiologist's Impression: [address] [address] Magnetic Resonance Report Signed Patient: Brennan Marmolejo Jr MR#: [id number] : 1955 Acct:[id number] Age/Sex: 66 / M Date of Service: 09/01/21 Loc: ED Accession Number: [id number] ?? Procedure: MR head/brain wo/w con Ordering Provider: Ashley Carrasco D.O. PROCEDURE:? MR HEAD/BRAIN WO/W CON ? INDICATIONS:? eval for hypertensive emergency/PRES ? TECHNIQUE:? Noncontrast axial T1 spin echo, axial T2 fast spin echo, sagittal and axial FLAIR, coronal T2 fast spin echo, axial gradient echo, axial diffusion and ADC through the brain.? After the administration of contrast, axial and coronal 3D VIBE or T1 spin echo with fat saturation through the brain.? ? COMPARISON:? [facility], CT, CT HEAD/BRAIN WO CON, 12/20/2020, 21:06.? [facility], CT, CT HEAD/BRAIN WO CON, 09/01/2021, 8:41. ? FINDINGS: ? Cerebrum, Cerebellum and Brainstem:? Moderate cerebral and cerebellar volume loss as well as moderate multifocal hyperintensities in the deep and subcortical white matter present. ?Distribution and signal characteristics are most consistent with chronic ischemic change.? The diffusion sequence is normal without evidence of acute infarct.? No intracranial hemorrhage, mass lesion or midline shift.? Basal cisterns and foramen magnum contain appropriate anatomy and vascular flow voids.? No evidence of dural or leptomeningeal thickening. ? Ventricles:? Appropriate in size and position.? No hydrocephalus. ? Skull Base:? The bony sella, pituitary gland and infundibulum unremarkable.? Clivus and craniovertebral relationships are appropriate.? Visualized portions of the seventh and eighth cranial nerve complexes and internal auditory canals are within normal limits. ? Scalp and Calvarium:? The scalp is unremarkable.? Underlying calvarium has an appropriate marrow signal. ? Paranasal Sinuses:? Visualized portions of the paranasal sinuses are clear. ? Mastoids:? Unremarkable as visualized.? No mastoid effusion present. ? Orbits: ? The orbits, globes and ocular muscles are unremarkable.? Left intra- ocular lens replacement noted ? ? IMPRESSION:? ? 1. Moderate atrophy and multifocal white matter chronic ischemic change without intracranial hemorrhage, infarct or mass lesion. ? 2. No evidence of posterior reversible encephalopathy syndrome.? Hypoattenuation in the occipital lobes on the recent CT is artifactual.? Approved by: Randy Willard M.D. on 09/01/2021 at 13:13? ECG Data Attestation: I personally reviewed and interpreted this ECG as follows: Prior ECG tracings: available for review Interpretation: Sinus rhythm rate of 60 2p are 150 QRS 84 and QTC 489. No acute ST elevation or depression. Patient has RSR in 2 3 AVF. As well as Q-waves in V1 V2 and V3. These all appear consistent with prior from 08/31/2021. [facility] Narrative Medical decision making narrative: This is a 66-year-old male comes emergency department with complaint of elevated blood pressure, headache, chest pain/epigastric pain and acute on chronic back pain. Patient was here yesterday with similar symptoms blood pressures improved with some antinausea medications and oral blood pressure medications but have reoccurred. Patient does not have any clue neurologic changes but is quite hypertensive. His labs are reassuring, head CT was ordered secondary to his headache with systolic greater than 200 and diastolic greater than 100. Showed possible press, CT angiography chest abdomen pelvis was included to rule out dissection or aneurysm and is negative with some sclerotic changes there were noted yesterday matter likely related to his prostate cancer. Patient has had labile blood pressures intermittently. Discussed with our hospitalist who is uncomfortable we do not have any specialty back up except for a tele direct sales consultant. Spoke with our tell direct sales consultant who recommends MRI and nicardipine drip but can convert to oral antihypertensive if patient is tolerating. Patient was labile intermittently. Spoke with Dr. Vasquez at [facility] who kindly accepts. We were able to obtain MRI afterwards. This appears to be more reassuring and less likely to be PRES the patient continues to be labile in his pressures and we have not been able to wean her down his nicardipine drip. Patient continues to have nausea and vomiting as well. He has had multiple doses of antinausea as well as pain medications. Patient is agreeable to brant bolivar. Images for MRI were also pushed after these were obtained. Of note patient had intermittent PVCs during his stay. And a 5 or 6 beat of PVCs but did not have any other changes. This is only captured on telemetry and not an EKG. Critical Care Time Critical Care Time Critical Care Time: Yes Total Critical Care Time: 45 Attestation: The high probability of a clinically significant, sudden or life threatening deterioration of the [neuro, cardiac] system(s) required my full and direct attention, intervention and personal management. The aggregate critical care time was [65] minutes. This time is in addition to time spent performing reported procedures but includes the following: [x] Data Review and interpretation [x] Patient assessment and monitoring of vital signs [x] Documentation [x] Medication orders and management Discharge Plan Departure Patient Disposition: [facility] Clinical Impression: Hypertensive emergency, Vomiting Prescriptions: No Action ondansetron 4 mg tablet,disintegrating 4 mg PO Q6H PRN (Reason: Nausea) Qty: 30 3RF metformin 500 mg tablet 500 mg PO BID Qty: 180 1RF oxycodone 5 mg tablet 10 mg PO Q4H PRN (Reason: pain) Qty: 360 0RF simvastatin 40 mg tablet 40 mg PO QPM Qty: 90 1RF omeprazole 40 mg capsule,delayed release(DR/EC) 40 mg PO BID Qty: 180 3RF metoprolol succinate 50 mg tablet extended release 24 hr 50 mg PO BID 0RF clonidine HCl 0.1 mg tablet 0.1 mg PO BID Qty: 360 3RF cyclobenzaprine 5 mg tablet 5 mg PO TID PRN (Reason: Spasms) Qty: 60 0RF aspirin 81 mg Tablet,Chewable 81 mg PO QAM 0RF sennosides [senna] 8.6 mg Tablet 8.6 mg PO DAILY 0RF duloxetine [Cymbalta] 20 mg Capsule,Delayed Release(Dr/Ec) 20 mg PO DAILY Qty: 90 3RF tamsulosin 0.4 mg capsule 0.4 mg PO QPM 0RF promethazine 25 mg suppository 25 mg CO Q4-6H PRN (Reason: nausea and vomiting) Qty: 12 0RF Referrals: Khang Vasques MD [Primary Care Provider] -
[2021-09-01 08:25] LABS: Add Manual Diff / Slide Review NO; Basophils Absolute Auto 0 /uL (0-100); Basophils Percent Auto 0.5 % (0-2); Eosinophils Absolute Auto 0 /uL (0-450); Eosinophils Percent Auto 0.2 % (2-4); Hematocrit 41.1 % (41-53); Hemoglobin 14.6 g/dL (13.5-17.5); Lymphocytes Absolute Auto 1100 /uL (1100-4500); Lymphocytes Percent Auto 17.2 % (25-40); Mean Corpuscular HGB Conc 35.4 % (30-36); Mean Corpuscular Hemoglobin 31.6 PG (26-34); Mean Corpuscular Volume 89.4 fL (80-100); Monocytes Absolute Auto 1000 /uL (0-900); Monocytes Percent Auto 15.4 % (3-14); Neutrophils Absolute Auto 4100 /uL (1500-7000); Neutrophils Percent Auto 66.7 % (50-75); Platelet Count 147 X10^3/uL (150-400); Red Cell Distribution Width 13.4 % (11.6-14.8); White Blood Cell Count 6.2 X10^3/uL (4.5-11.0)
--- NOTE | 2021-09-01 08:30 | DI.CT.S_ITS ---
PROCEDURE: CT HEAD/BRAIN WO CON INDICATIONS: headache, hypertensive TECHNIQUE: Noncontrast 4.5 mm thick angled axial sections acquired from the foramen magnum to the vertex, with coronal and sagittal reformats. For radiation dose reduction, the following was used: automated exposure control, adjustment of mA and/or kV according to patient size. COMPARISON: [facility], CT, CT HEAD/BRAIN WO CON, 12/20/2020, 21:06. FINDINGS: Image quality: Excellent. CSF spaces: Basal cisterns are patent. No extra-axial fluid collections. The ventricles are symmetric in size and shape. Brain: No intracranial bleeds or masses. There is subtle decreased anterior knee patterson in the occipital lobe bilaterally. There is mild cerebral volume loss for age, with resultant ventricular and sulcal prominence. There are mild periventricular and deep white matter chronic small vessel ischemic changes. There is intracranial internal carotid artery atherosclerosis. Skull and face: Calvarium and visualized facial bones appear intact, without suspicious lesions. Sinuses: Visualized sinuses and mastoids are clear. IMPRESSION: 1. Subtle decreased attenuation in occipital lobes bilaterally, suspicious for posterior reversible encephalopathy syndrome (PRES). 2. Mild cerebral volume loss and chronic microvascular ischemic changes. Dictated by: Ac Arevalo M.D. on 09/01/2021 at 9:08 Approved by: Ac Arevalo M.D. on 09/01/2021 at 9:12
--- NOTE | 2021-09-01 08:30 | DI.CT.S_ITS ---
PROCEDURE: CT ANGIO CHEST ABDOMEN PELVIS INDICATIONS: chest pain, hypertensive 210/110's TECHNIQUE: Precontrast 5 mm thick sections acquired from the lung apices to the iliac crests. After the administration of intravenous contrast, 2.5 mm thick sections again acquired from the lung apices to the iliac crests. Maximum intensity projection (MIP) oblique sagittal and coronal reformats were then acquired. For radiation dose reduction, the following was used: automated exposure control. COMPARISON: [facility], CT, CT ABDOMEN PELVIS W CON, 08/31/2021, 14:00. [facility], CT, CT ANGIO CHEST ABDOMEN PELVIS, 06/18/2019, 11:59. FINDINGS: Image quality: Excellent. AORTA: No acute aortic syndrome. No aortic dissection. Ascending aorta measures 3.4 cm. Mild calcified plaque at the aortic arch. Left vertebral artery originates off of the aortic arch, variant anatomy. No pulmonary embolism. CHEST: Lungs and pleura: No acute airspace opacities. Minimal atelectasis at the left lung base. Mild paraseptal emphysema at the right apex. No significant pulmonary nodules. No pleural effusions or pneumothorax. Central and peripheral airways are patent and normal in caliber. Mediastinum: Heart size is normal. Three-vessel coronary artery calcifications. No pericardial effusion. No mediastinal or hilar adenopathy by size criteria. Central pulmonary arteries are normal in size. Esophagus is normal in caliber. No hiatal hernias. Bones and chest wall: No axillary adenopathy by size criteria. Thyroid gland is unremarkable. No suspicious bony lesions. No vertebral body compression fractures. ABDOMEN: Vasculature: There is moderate calcified plaque in the abdominal aorta and iliac arteries. No aneurysm. Celiac trunk and mesenteric arteries are patent. Renal arteries are also patent. Portal vein is patent. Solid organs: Liver is normal in size and enhancement. Coarse calcifications at the dome of the liver. No focal lesion. Gallbladder is not significantly distended. Vicarious excretion of contrast in the gallbladder. Biliary system is non dilated. Pancreas enhances normally. No peripancreatic fluid collection. Punctate calcifications in the pancreas. This is likely the sequelae of chronic calcific pancreatitis. Spleen is normal in size and enhancement. No adrenal nodules. Both kidneys are normal in size and enhancement, without hydronephrosis. Peritoneum and bowel: No free fluid or air. Bowel loops are normal in caliber and wall thickness. Diverticulosis. Mild thickening in the region of the sigmoid colon, ( and ), appears unchanged. Nodes and vessels: No retroperitoneal or mesenteric adenopathy by size criteria. Inferior vena cava is normal in morphology. Miscellaneous: No ventral hernias. PELVIS: Genitourinary: Bladder wall thickness is normal. Excreted contrast in the urinary bladder. Prominent prostate gland. Prostate fiducial markers. Miscellaneous: Suspect fat containing left inguinal hernia. No adenopathy. No ventral hernias. Bones: A few small sclerotic foci. For example L2 vertebral body, right sacral ala which are new compared to 2019. Small sclerotic focus at the left sacrum appears unchanged compared to 2019. No vertebral body compression fractures. IMPRESSION: 1. No aortic dissection. No acute aortic syndrome. No aneurysm. No pulmonary embolism. 2. Lungs are clear. 3. No acute inflammatory process is identified. No free fluid. Diverticulosis. 4. Small sclerotic foci at L2 and right sacrum are indeterminate. Small prostate cancer metastases or bone islands could have this appearance. The patient may benefit from nuclear medicine bone scan. Dictated by: Eric Butt M.D. on 09/01/2021 at 9:34 Approved by: Eric Butt M.D. on 09/01/2021 at 9:55
[2021-09-01] MEDS: ONDANSETRON 4 MG/2 ML INJ IV (09:04)
[2021-09-01] MEDS: MORPHINE 4 MG/ML INJ IV (09:06)
[2021-09-01] MEDS: HYDRALAZINE 20 MG/ML VIAL 10 MG IV (09:07)
[2021-09-01 09:28] LABS: Alanine Aminotransferase 144 IU/L (<50); Albumin 4.8 g/dL (3.5-5.0); Albumin Globulin Ratio 1.3 (1.0-2.8); Alkaline Phosphatase 100 U/L (38-126); Aspartate Aminotransferase 129 IU/L (17-59); Blood Urea Nitrogen 19 mg/dL (9-20); Calcium 10.1 mg/dL (8.4-10.2); Carbon Dioxide 24 mmol/L (22-32); Chloride 101 mmol/L (98-107); Creatine Kinase 75 U/L (55-170); Estimated Glomerular Filt Rate > 60.0 mL/min (>60); Globulin 3.8 g/dL (1.7-4.1); Glucose 198 mg/dL (80-110); HEMOLYSIS 16 (0-50); Lipase 62 U/L (23-300); Magnesium 1.6 mg/dL (1.6-2.3); Potassium 3.4 mmol/L (3.4-5.1); Sodium 138 mmol/L (137-145); Total Protein 8.6 g/dL (6.3-8.2)
[2021-09-01 09:38] LABS: Troponin I < 0.012 ng/mL (0.01-0.034)
[2021-09-01] MEDS: LABETALOL 20 MG/4 ML SYRINGE 10 MG IV (09:45)
[2021-09-01 10:03] LABS: UR Morphine/Opiate cutoff 300 Positive (Negative); Ur Creatinine Normal (Normal); Ur Specific Gravity Normal (Normal); Urine Amphetamines Negative (Negative); Urine Barbiturates Negative (Negative); Urine Benzodiazepines Negative (Negative); Urine Cocaine Negative (Negative); Urine MDMA Negative (Negative); Urine Methadone Negative (Negative); Urine Methamphetamines Negative (Negative); Urine Oxycodone Positive (Negative); Urine Phencyclidine Negative (Negative); Urine Tetrahydrocannabinol Positive (Negative); Urine Tricyclic Antidepressant Negative (Negative); Urine pH Normal (Normal)
[2021-09-01 10:05] LABS: Bacteria Urine None Seen; Culture Indicated Urine Cult Not Indicated; RBC Urine None Seen (0-5/HPF); Urine Comments Microscopic Normal; WBC Urine None Seen (0-5/HPF)
[2021-09-01] MEDS: NICARDIPINE 25 MG in SODIUM CHLORIDE 0.9% 240 ML 50 ML IV (10:14)
[2021-09-01] MEDS: SODIUM CHLORIDE 0.9% 1,000 ML 40 ML IV (10:16)
[2021-09-01 11:08] LABS: COVID19 - ADMIT (NP swab/PCR) Negative (Negative)
[2021-09-01 11:24] LABS: Troponin I < 0.012 ng/mL (0.01-0.034)
[2021-09-01] MEDS: HYDROMORPHONE 1 MG INJ IV ×2 (11:36→13:33)
--- NOTE | 2021-09-01 11:38 | PC.NURSE ---
BP 150's. Nicardipine gtt turned off. Pt having frequent PVC. dr. Carrasco aware.
--- NOTE | 2021-09-01 11:46 | DI.MRI.S_ITS ---
PROCEDURE: MR HEAD/BRAIN WO/W CON INDICATIONS: eval for hypertensive emergency/PRES TECHNIQUE: Noncontrast axial T1 spin echo, axial T2 fast spin echo, sagittal and axial FLAIR, coronal T2 fast spin echo, axial gradient echo, axial diffusion and ADC through the brain. After the administration of contrast, axial and coronal 3D VIBE or T1 spin echo with fat saturation through the brain. COMPARISON: [facility], CT, CT HEAD/BRAIN WO CON, 12/20/2020, 21:06. [facility], CT, CT HEAD/BRAIN WO CON, 09/01/2021, 8:41. FINDINGS: Cerebrum, Cerebellum and Brainstem: Moderate cerebral and cerebellar volume loss as well as moderate multifocal hyperintensities in the deep and subcortical white matter present. Distribution and signal characteristics are most consistent with chronic ischemic change. The diffusion sequence is normal without evidence of acute infarct. No intracranial hemorrhage, mass lesion or midline shift. Basal cisterns and foramen magnum contain appropriate anatomy and vascular flow voids. No evidence of dural or leptomeningeal thickening. Ventricles: Appropriate in size and position. No hydrocephalus. Skull Base: The bony sella, pituitary gland and infundibulum unremarkable. Clivus and craniovertebral relationships are appropriate. Visualized portions of the seventh and eighth cranial nerve complexes and internal auditory canals are within normal limits. Scalp and Calvarium: The scalp is unremarkable. Underlying calvarium has an appropriate marrow signal. Paranasal Sinuses: Visualized portions of the paranasal sinuses are clear. Mastoids: Unremarkable as visualized. No mastoid effusion present. Orbits: The orbits, globes and ocular muscles are unremarkable. Left intra-ocular lens replacement noted IMPRESSION: 1. Moderate atrophy and multifocal white matter chronic ischemic change without intracranial hemorrhage, infarct or mass lesion. 2. No evidence of posterior reversible encephalopathy syndrome. Hypoattenuation in the occipital lobes on the recent CT is artifactual. Approved by: Randy Willard M.D. on 09/01/2021 at 13:13
[2021-09-01] MEDS: METOPROLOL ER 50 MG TABLET PO (12:04)
[2021-09-01] MEDS: cloNIDine 0.1 MG TABLET PO (12:04)
--- NOTE | 2021-09-01 13:17 | PC.NURSE ---
continues to have pain, trigemy and frequent pvc. dr. patricio aware. pt refused oxycodone and requested dilaudid . sintia dunham aware.
[2021-09-01] MEDS: METOCLOPRAMIDE 10 MG/2 ML INJ IV (15:10)
--- NOTE | 2021-09-01 15:26 | PC.NURSE ---
Dr. Carrasco aware of pt restarted on Nicardipine gtt. pt is having intermittent episodes of spitting up emesis. small amounts. continues with episodes of vtach. continues to have pain in his abdomen, shoulders and abdomen.
[2021-09-01] MEDS: HYDROMORPHONE 0.5 MG INJ IV (16:24)
== END 2021-09-01 16:30 | disposition short-term general hospital (02) ==
PROVIDERS: Emergency Provider Emergency Medicine; PCP Internal Medicine
DX: I16.1 Hypertensive emergency (principal); R11.2 Nausea with vomiting, unspecified; R07.9 Chest pain, unspecified; R51.9 Headache, unspecified; R10.13 Epigastric pain
CPT/HCPCS: 36415; 70450; 70553; 71045; 71275; 74174; 80053; 80305; 81003; 81015; 82550; 83690; 83735; 84484; 85025; 87086; 87635; 93005; 96365; 96366; 96375; 96376; 99285; 99291; 99292; C9803; A9579; J0360; J1170; J2270; J2405; J2765

== ENCOUNTER → 2021-09-14 09:44 | Outpatient (CLI) | payer OTHER, SELFPAY ==
[2021-06-29 15:36] VITALS: BMI 21.4
[2021-09-14 12:58] LABS: COVID19 -Nasal RAPID Negative (Negative)
== END ==
PROVIDERS: PCP Internal Medicine; Visit Provider Physician Assistant
DX: Z01.812 Encounter for preprocedural laboratory examination (principal); Z20.822 Contact with and (suspected) exposure to COVID-19
CPT/HCPCS: 87635; C9803

== ENCOUNTER 2021-09-15 11:57 | Day surgery (SDC) | payer OTHER, SELFPAY ==
[2021-06-29 15:36] VITALS: BMI 21.4
[2021-09-15 12:59] VITALS: BP 88/60; PULSE 69; RESP 16; TEMP 36.1; O2SAT 98; BMI 18.8
[2021-09-15 13:17] VITALS: BMI 18.8
[2021-09-15 13:18] VITALS: BMI 18.8
[2021-09-15] MEDS: PROPARACAINE 0.5% OPHTH SOL 2 DROPS EYE-OP (13:21)
[2021-09-15] MEDS: CATARACT EYE COMPOUND (10 DROPS/SYRINGE) 3 DROPS EYE-OP (13:25)
[2021-09-15 13:40] VITALS: BP 98/74; PULSE 60; RESP 16; O2SAT 97
--- NOTE | 2021-09-15 13:47 | PM.PREOP ---
Pre-operative Note Interval Note History & Physical reviewed/Exam performed by Physician: Yes Changes to H&P: No
--- NOTE | 2021-09-15 13:48 | PM.OP.1 ---
Operative Date/Time/Diagnoses Pre-op diagnosis: Nuclear cataract right eye Procedure & Clinicians Procedure: Cataract Surgery Same procedure as scheduled: Yes Surgeon: Meir Corona Anesthesia Type: MAC +/- and Sedation Operative Notes Procedure in detail: Patient brought to the operating suite. Tetracaine drops placed in the right eye. Patient was prepped and draped in sterile manner. Wire lid speculum was placed in the eye. Betadine drops were placed on the eye. This was irrigated. Lidocaine jelly was placed on the eye. A paracentesis port was created with a side-port blade. 0.1 mL 1% preservative free lidocaine was injected into the anterior chamber. The anterior chamber was deepened with viscoelastic. 2.6 mm keratome was used to create a temporal clear corneal incision. Cystotome and Utrata forceps were used to create continuous tear capsulorrhexis. Balanced salt solution was used to hydro dissect the nucleus. The phacoemulsification handpiece was inserted and the nucleus was removed using the stop and chop technique. The irrigation aspiration handpiece was inserted and the remaining cortex was removed. Anterior chamber was deepened with viscoelastic. An Metcalf DIB00 intraocular lens with a power of 21.0 was injected into the capsular bag. Irrigation aspiration handpiece was inserted and the remaining viscoelastic was removed. Incision was hydrated with balanced salt solution and found to be leak free with pressure with Weck-Gretchen sponges. 0.1 mL Vigamox injected anterior chamber. 0.3 mL Kenalog 10 mg was injected subconjunctivally. Lid speculum was removed. The patient left the operating room in excellent condition. Complications: none Post-operative Condition: stable Disposition: same day surgery
[2021-09-15] MEDS: TRIAMCINOLONE 50 MG/5 ML VIAL INJ (14:11)
[2021-09-15] MEDS: PHENYLEPHRINE/LIDOCAINE VIAL (OR) 0.2 ML EYE-OP (14:11)
[2021-09-15] MEDS: HYALURONATE SODIUM 30 MG-10 MG/ML SYRINGES 1 BOX INTRAOCULA (14:11)
[2021-09-15] MEDS: MOXIFLOXACIN INJ 4 MG/0.8 ML VIAL 0.5 MG EYE-OP (14:11)
[2021-09-15] MEDS: BALANCED SALT IRRIG SOLN NO.2 500 ML, EPINEPHrine 1 MG IRR (14:11)
[2021-09-15] MEDS: LIDOCAINE 2% (GLYDO) 6 ML GEL TOP (14:12)
[2021-09-15] MEDS: TETRACAINE 0.5% OPHTH DROPS 4 ML 2 DROPS EYE-OP (14:12)
[2021-09-15 14:35] VITALS: BP 90/57; PULSE 67; RESP 15; TEMP 36.1; O2SAT 98
[2021-09-15 14:50] VITALS: BP 90/55; PULSE 65; RESP 14; O2SAT 97
--- NOTE | 2021-09-15 15:01 | SUR.PHASEII ---
Spoke to Lisandra at home caregiver. Educated on bp med management. States has bp cuff at home and monitors throughout the day. States awaiting call back from pcp for instructions on med management. Pt at baseline from prior to surgery. Pt leaving PACU via wheelchair and into vehicle with assist.
== END 2021-09-15 14:50 | disposition home or self-care (01) ==
PROVIDERS: PCP Internal Medicine; Referring Provider Ophthalmology; Visit Provider Ophthalmology
PROC: (CPT 66984; principal; 2021-09-15 13:45)
DX: H25.11 Age-related nuclear cataract, right eye (principal); I10 Essential (primary) hypertension; I51.9 Heart disease, unspecified; I25.2 Old myocardial infarction; F41.9 Anxiety disorder, unspecified; E11.9 Type 2 diabetes mellitus without complications; M79.7 Fibromyalgia; Z79.84 Long term (current) use of oral hypoglycemic drugs
CPT/HCPCS: 66984; 82962; J0171; J2250; J3301

== ENCOUNTER 2021-09-21 10:22 | Emergency (ER) | payer OTHER, SELFPAY ==
[2021-06-29 15:36] VITALS: BMI 21.4
[2021-09-21] VITALS (30 sets, daily range): BP systolic 186–216; BP diastolic 92–123; PULSE 59–69; RESP 6–24; TEMP 37; O2SAT 98–100; BMI 20.2
--- NOTE | 2021-09-21 10:38 | DI.RAD.S_ITS ---
PROCEDURE: XR CHEST 1V INDICATIONS: chest pain TECHNIQUE: One view of the chest was acquired. COMPARISON: [facility], CR, XR CHEST 1V, 09/01/2021, 8:16. FINDINGS: Surgical changes and devices: None. Lungs and pleura: Lungs are clear. No pleural effusions or pneumothorax. Mediastinum: Mediastinal contours appear normal. Heart size is slightly enlarged. Bones and chest wall: No suspicious bony lesions. Overlying soft tissues appear unremarkable. IMPRESSION: No acute pulmonary process. Dictated by: Chichi Collado M.D. on 09/21/2021 at 11:25 Approved by: Chichi Collado M.D. on 09/21/2021 at 11:26
[2021-09-21 11:38] LABS: Add Manual Diff / Slide Review NO; Basophils Absolute Auto 0 /uL (0-100); Basophils Percent Auto 0.4 % (0-2); Eosinophils Absolute Auto 0 /uL (0-450); Eosinophils Percent Auto 0.6 % (2-4); Hematocrit 38.1 % (41-53); Hemoglobin 13.4 g/dL (13.5-17.5); Lymphocytes Absolute Auto 500 /uL (1100-4500); Lymphocytes Percent Auto 13.1 % (25-40); Mean Corpuscular HGB Conc 35.2 % (30-36); Mean Corpuscular Hemoglobin 31.9 PG (26-34); Mean Corpuscular Volume 90.7 fL (80-100); Monocytes Absolute Auto 300 /uL (0-900); Monocytes Percent Auto 9.3 % (3-14); Neutrophils Absolute Auto 2700 /uL (1500-7000); Neutrophils Percent Auto 76.6 % (50-75); Platelet Count 99 X10^3/uL (150-400); White Blood Cell Count 3.6 X10^3/uL (4.5-11.0)
[2021-09-21 11:49] LABS: Alanine Aminotransferase 150 IU/L (<50); Albumin 4.4 g/dL (3.5-5.0); Albumin Globulin Ratio 1.2 (1.0-2.8); Alkaline Phosphatase 88 U/L (38-126); Aspartate Aminotransferase 121 IU/L (17-59); BUN Creatinine Ratio 32.8 (6-22); Bilirubin Total 0.8 mg/dL (0.2-1.3); Blood Urea Nitrogen 20 mg/dL (9-20); Calcium 9.7 mg/dL (8.4-10.2); Carbon Dioxide 23 mmol/L (22-32); Chloride 106 mmol/L (98-107); Creatine Kinase 35 U/L (55-170); Estimated Glomerular Filt Rate > 60.0 mL/min (>60); Globulin 3.8 g/dL (1.7-4.1); Glucose 165 mg/dL (80-110); HEMOLYSIS < 15 (0-50); Lipase 62 U/L (23-300); Magnesium 1.4 mg/dL (1.6-2.3); Potassium 3.9 mmol/L (3.4-5.1); Sodium 138 mmol/L (137-145); Total Protein 8.2 g/dL (6.3-8.2)
[2021-09-21 12:00] LABS: Troponin I < 0.012 ng/mL (0.01-0.034)
--- NOTE | 2021-09-21 12:02 | ED_ITS ---
HPI - Nausea/Vomiting/Diarrhea General Chief complaint: Nausea/Vomiting/Diarrhea Stated complaint: HTN/Nausea Time Seen by Provider: 09/21/21 10:54 Source: patient and EMS Mode of arrival: Wheelchair Limitations: no limitations History of Present Illness HPI Narrative: This is a 66-year-old male who comes to the emergency department for recurrent symptoms. Patient states he woke at 3:00 a.m. he was sweating, had shoulder back pain, nausea and vomiting. He checked his blood pressure was quite high he tried to take all his medications but did not try to take any of his antinausea medication 1st. Phallus about 20 minutes any threw up his medications. He has been continuing to have symptoms. He has not had fevers but he has had some sweats. No shortness of breath. He continues to have back and shoulder plain. No swelling in his extremities. He has been vomiting regularly states the abdominal uncomfortable from that. No diarrhea constipation. No urinary symptoms. Patient was seen here for hypertensive urgency/emergency with a questionable press syndrome. He states that they just stabilized him and sent him home. He states he was started Eliquis and potassium although last time I saw he was reportedly on Eliquis. He was transferred to [facility] at that time we are attempting to obtain records. He states he was diagnosed with vertigo he has had persistent symptoms. He states they did not send him home on anything like meclizine. He has not had any other new medication changes. Related Data Home Medications Medication Instructions Recorded Confirmed tamsulosin 0.4 mg capsule 0.4 mg PO QPM 08/15/19 09/01/21 aspirin 81 mg chewable tablet 81 mg PO QAM 11/06/19 09/15/21 metoprolol succinate 50 mg 50 mg PO BID tab 03/13/21 09/15/21 tablet,extended release 24 hr sennosides 8.6 mg tablet (senna) 8.6 mg PO DAILY 06/29/21 09/15/21 apixaban 2.5 mg tablet (Eliquis) 2.5 mg PO BID 09/15/21 09/15/21 furosemide 20 mg tablet 20 mg PO DAILY 09/15/21 09/15/21 potassium chloride 10 mEq 10 meq PO DAILY 09/15/21 09/15/21 tablet,extended release tamsulosin 0.4 mg capsule 0.4 mg PO DAILY 09/15/21 09/15/21 Previous Rx's Medication Instructions Recorded promethazine 25 mg rectal 25 mg AL Q4-6H PRN #12 ea 11/18/20 suppository cyclobenzaprine 5 mg tablet 5 mg PO TID PRN #60 tab 02/13/21 ondansetron 4 mg disintegrating 4 mg PO Q6H PRN #30 tab 03/11/21 tablet metformin 500 mg tablet 500 mg PO BID #180 tab 05/19/21 duloxetine 20 mg capsule,delayed 20 mg PO DAILY #90 cap 07/01/21 release (Cymbalta) simvastatin 40 mg tablet 40 mg PO QPM #90 tab 08/03/21 clonidine HCl 0.1 mg tablet 0.1 mg PO BID #360 tab 08/18/21 omeprazole 40 mg capsule,delayed 40 mg PO BID #180 cap 08/21/21 release oxycodone 5 mg tablet 10 mg PO Q4H PRN #360 tab 09/02/21 Allergies Allergy/AdvReac Type Severity Reaction Status Date / Time No Known Drug Allergies Allergy Verified 08/18/21 09:28 Review of Systems Review of Systems ROS Unobtainable: All systems reviewed & are unremarkable except as noted in HPI and below Patient History Medical History Cannabis abuse Chronic hepatitis Coronary artery disease involving [place] coronary artery of [place] heart without angina pectoris (~2006) Diabetes type 2, uncontrolled Diverticulosis of large intestine (03/31/12) Essential hypertension Generalized anxiety disorder Kidney stones Mixed hyperlipidemia Paroxysmal A-fib Prostate cancer (~05/2019) Uncomplicated opioid dependence Surgical History H/O heart artery stent (~2006) History of angioplasty (~12/2006) Hx of inguinal hernia surgery (~09/20/08) Hx of inguinal hernia surgery (~03/07/14) Status post laminectomy Social History marital status: unmarried,single number of children: 3 household members: spouse and friend(s) lives independently: Yes caregiver/support person: No housing: house pets and animals: No education level: high school occupational status: other 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/buddhist: None leisure activities: music, fishing and other Smoking Status: Never smoker Tobacco: How many years used: 56 Smokeless tobacco user: other quit status: has quit before second hand exposure: Yes (On farmland/Boat.) alcohol intake: former substance use type: does not use and marijuana eating out: rarely or never Type(s) of exercise: normal ROM and activity and additional Smoking Status: Never smoker alcohol intake frequency: 0-2 drinks per day Alcohol type: beer Substance Use Type: marijuana Exam Narrative Exam Narrative: GEN: well nourished, well appearing male, alert and oriented x 3, patient appears to be in goqc-[id number]-swktsxoe distress. HEENT: Atraumatic, pupils are equal round reactive to light, extraocular movements are intact, nares are clear, no facial droop. HEART: Regular rate and rhythm without murmur, clicks, rubs. Pulses are equal in upper and lower extremities LUNGS:Lungs clear to auscultation, no wheezes, rales, crackles, chest moves symmetrically ABD:bowel sounds normal, soft, non-tender, no guarding, rebound, rigidity, no masses noted, no hepatosplenomegaly :No CVA tenderness MSCL: Non-tender, no muscle atrophy, muscles strength 5/5 upper and lower extremities, full range of motion NEURO:CN 2-12 intact, sensation normal SKIN: Initial Vital Signs Initial Vital Signs: Vital Signs Temperature 98.6 F 09/21/21 10:29 Pulse Rate 66 09/21/21 10:29 Respiratory Rate 16 09/21/21 10:29 Blood Pressure 215/116 H 09/21/21 10:29 Pulse Oximetry 100 09/21/21 10:29 Course Orders Ordered: ED Orders 09/21/21 11:32 Complete Blood Count AUTO DIFF Stat Comprehensive Metabolic Panel Stat Lipase Stat Magnesium Stat Troponin & CK Cardiac Panel Stat 09/21/21 12:43 CT head/brain wo con Stat 09/21/21 13:30 COVID19 -Nasal swab/Pre-Proc Stat 09/21/21 13:50 Troponin I Stat Discontinued Medications Enalaprilat (Enalaprilat 2.5 Mg/ 2 Ml Vial) 0.625 mg IV NOW ONE Stop: 09/21/21 12:42 Last Admin: 09/21/21 13:11 Dose: 0.625 mg Documented by: RAFAEL Hydromorphone HCl (Hydromorphone 1 Mg Inj) 1 mg IV NOW ONE Stop: 09/21/21 12:10 Last Admin: 09/21/21 13:11 Dose: 1 mg Documented by: RAFAEL Hydromorphone HCl (Hydromorphone 0.5 Mg Inj) 0.5 mg IV NOW ONE Stop: 09/21/21 16:37 Last Admin: 09/21/21 16:43 Dose: 0.5 mg Documented by: RAFAEL Metoprolol Succinate (Metoprolol Er 50 Mg Tablet) 50 mg PO NOW ONE Stop: 09/21/21 12:08 Last Admin: 09/21/21 13:11 Dose: 50 mg Documented by: RAFAEL Ondansetron HCl (Ondansetron 4 Mg/2 Ml Inj) 4 mg IV NOW ONE Stop: 09/21/21 12:07 Last Admin: 09/21/21 13:10 Dose: 4 mg Documented by: RAFAEL Reevaluation(s) Reevaluation #1: Patient has not had any additional vomiting but still has quite a bit of pain. Blood pressure has normalized but has improved here in the department. Consultations Consultation #1: Vital Signs Vital signs: Vital Signs - 8 hr 09/21/21 12:00 09/21/21 12:30 09/21/21 12:43 Pulse Rate 63 69 63 Respiratory Rate 14 22 13 Blood Pressure 212/114 H Pulse Oximetry 99 99 99 09/21/21 13:00 09/21/21 13:01 09/21/21 13:23 Pulse Rate 65 69 60 Respiratory Rate 14 18 24 Blood Pressure 191/92 H 216/113 H Pulse Oximetry 100 99 99 09/21/21 13:30 09/21/21 13:40 09/21/21 13:51 Pulse Rate 62 62 60 Respiratory Rate 11 L 14 6 L Blood Pressure 211/108 H 203/106 H 214/120 H Pulse Oximetry 99 99 100 09/21/21 14:00 09/21/21 14:10 09/21/21 14:18 Pulse Rate 59 L 65 64 Respiratory Rate 13 10 L Blood Pressure 192/107 H 202/123 H 202/123 H Pulse Oximetry 99 100 09/21/21 14:20 09/21/21 14:30 09/21/21 14:40 Pulse Rate 66 68 67 Respiratory Rate 12 12 19 Blood Pressure 186/113 H 196/106 H 196/110 H Pulse Oximetry 99 99 99 09/21/21 14:50 09/21/21 15:00 09/21/21 15:01 Pulse Rate 64 62 68 Respiratory Rate 15 7 L 11 L Blood Pressure 199/101 H 203/111 H Pulse Oximetry 98 100 100 09/21/21 15:10 09/21/21 15:20 09/21/21 15:30 Pulse Rate 62 68 64 Respiratory Rate 11 L 10 L 11 L Blood Pressure 194/93 H 210/107 H 190/101 H Pulse Oximetry 100 100 99 09/21/21 15:40 09/21/21 15:50 09/21/21 16:00 Pulse Rate 62 63 64 Respiratory Rate 11 L 11 L 13 Blood Pressure 205/111 H 208/100 H 197/101 H Pulse Oximetry 99 99 99 09/21/21 16:10 09/21/21 16:20 09/21/21 16:30 Pulse Rate 69 65 61 Respiratory Rate 15 15 16 Blood Pressure 203/110 H 212/117 H 194/117 H Pulse Oximetry 100 99 98 MDM - Nausea/Vomiting/Diarrhea Lab Data Result diagrams: 09/21/21 11:32 09/21/21 11:32 Labs: Lab Results 09/21/21 09/21/21 09/21/21 Range/Units 11:32 11:32 13:30 WBC 3.6 L (4.5-11.0) X10^3/uL RBC 4.20 L (4.5-5.9) X10^6/uL Hgb 13.4 L (13.5-17.5) g/dL Hct 38.1 L (41-53) % MCV 90.7 (80-100) fL MCH 31.9 (26-34) PG MCHC 35.2 (30-36) % RDW 13.0 (11.6-14.8) % Plt Count 99 L (150-400) X10^3/uL Neut % (Auto) 76.6 H (50-75) % Lymph % (Auto) 13.1 L (25-40) % [place] % (Auto) 9.3 (3-14) % Eos % (Auto) 0.6 L (2-4) % Baso % (Auto) 0.4 (0-2) % Neut # (Auto) 2700 (4057-7121) /uL Lymph # (Auto) 500 L (9903-8190) /uL [place] # (Auto) 300 (0-900) /uL Eos # (Auto) 0 (0-450) /uL Baso # (Auto) 0 (0-100) /uL Sodium 138 (137-145) mmol/L Potassium 3.9 (3.4-5.1) mmol/L Chloride 106 (98-107) mmol/L Carbon Dioxide 23 (22-32) mmol/L BUN 20 (9-20) mg/dL Creatinine 0.61 L (0.66-1.25) mg/dL Estimated GFR > 60.0 (>60) mL/min BUN/Creatinine Ratio 32.8 H (6-22) Glucose 165 H (80-110) mg/dL Calcium 9.7 (8.4-10.2) mg/dL Magnesium 1.4 L (1.6-2.3) mg/dL Total Bilirubin 0.8 (0.2-1.3) mg/dL AST 121 H (17-59) IU/L ALT 150 H (<50) IU/L Alkaline Phosphatase 88 (38-126) U/L Total Creatine Kinase 35 L (55-170) U/L CK-MB (CK-2) TNP CK-MB (CK-2) Rel Index TNP Troponin I < 0.012 (0.01-0.034) ng/mL Total Protein 8.2 (6.3-8.2) g/dL Albumin 4.4 (3.5-5.0) g/dL Globulin 3.8 (1.7-4.1) g/dL Albumin/Globulin Ratio 1.2 (1.0-2.8) Lipase 62 (23-300) U/L SARS-CoV-2 (PCR) Negative (Negative) 09/21/21 Range/Units 13:50 WBC (4.5-11.0) X10^3/uL RBC (4.5-5.9) X10^6/uL Hgb (13.5-17.5) g/dL Hct (41-53) % MCV (80-100) fL MCH (26-34) PG MCHC (30-36) % RDW (11.6-14.8) % Plt Count (150-400) X10^3/uL Neut % (Auto) (50-75) % Lymph % (Auto) (25-40) % [place] % (Auto) (3-14) % Eos % (Auto) (2-4) % Baso % (Auto) (0-2) % Neut # (Auto) (2519-4889) /uL Lymph # (Auto) (9316-4749) /uL [place] # (Auto) (0-900) /uL Eos # (Auto) (0-450) /uL Baso # (Auto) (0-100) /uL Sodium (137-145) mmol/L Potassium (3.4-5.1) mmol/L Chloride (98-107) mmol/L Carbon Dioxide (22-32) mmol/L BUN (9-20) mg/dL Creatinine (0.66-1.25) mg/dL Estimated GFR (>60) mL/min BUN/Creatinine Ratio (6-22) Glucose (80-110) mg/dL Calcium (8.4-10.2) mg/dL Magnesium (1.6-2.3) mg/dL Total Bilirubin (0.2-1.3) mg/dL AST (17-59) IU/L ALT (<50) IU/L Alkaline Phosphatase (38-126) U/L Total Creatine Kinase (55-170) U/L CK-MB (CK-2) CK-MB (CK-2) Rel Index Troponin I < 0.012 (0.01-0.034) ng/mL Total Protein (6.3-8.2) g/dL Albumin (3.5-5.0) g/dL Globulin (1.7-4.1) g/dL Albumin/Globulin Ratio (1.0-2.8) Lipase (23-300) U/L SARS-CoV-2 (PCR) (Negative) Imaging Data Chest x-ray: Radiologist's Impression: [address] [address] XRay Report Signed Patient: Brennan Mamrolejo Jr MR#: [id number] : 1955 Acct:[id number] Age/Sex: 66 / M Date of Service: 09/21/21 Loc: ED Accession Number: [id number] ?? Procedure: XR chest 1V Ordering Provider: Ashley Carrasco D.O. PROCEDURE:? XR CHEST 1V ? INDICATIONS:? chest pain ? TECHNIQUE:? One view of the chest was acquired.? ? COMPARISON:? [facility], CR, XR CHEST 1V, 09/01/2021, 8:16. ? FINDINGS:? ? Surgical changes and devices:? None.? ? Lungs and pleura:? Lungs are clear.? No pleural effusions or pneumothorax.? ? Mediastinum:? Mediastinal contours appear normal.? Heart size is slightly enlarged. ? Bones and chest wall:? No suspicious bony lesions.? Overlying soft tissues ap pear unremarkable.? ? IMPRESSION:? No acute pulmonary process. ? ? Dictated by: Chichi Collado M.D. on 09/21/2021 at 11:25 ? ? Approved by: Chichi Collado M.D. on 09/21/2021 at 11:26?? CT scan - head: Radiologist's Impression: Launch?[place] [address] CT Scan Report Signed Patient: Brennan Marmolejo Jr MR#: [id number] : 1955 Acct:[id number] Age/Sex: 66 / M Date of Service: 09/21/21 Loc: ED Accession Number: [id number] ?? Procedure: CT head/brain wo con Ordering Provider: Ashley Carrasco D.O. PROCEDURE:? CT HEAD/BRAIN WO CON ? INDICATIONS:? htn, nausea, recurrent symptoms ? TECHNIQUE:? Noncontrast 4.5 mm thick angled axial sections acquired from the foramen magnum to the vertex, with coronal and sagittal reformats.? For radiation dose reduction, the following was used:? automated exposure control, adjustment of mA and/or kV according to patient size.? ? COMPARISON:? [facility], MR, MR HEAD/BRAIN WO/W CON, 09/01/2021, 13:32.? [facility], CT, CT HEAD/BRAIN WO CON, 09/01/2021, 8:41. ? FINDINGS:? Image quality:? Excellent.? ? CSF spaces:? Basal cisterns are patent.? No extra-axial fluid collections.? The ventricles are symmetric in size and shape.? ? Brain:? No intracranial bleeds or masses.? There is cerebral volume loss for age, with resultant ventricular and sulcal prominence.? There are [id number] periventricular and deep white matter chronic small vessel ischemic changes.? There is intracranial internal carotid artery atherosclerosis.? ? Skull and face:? Calvarium and visualized facial bones appear intact, without suspicious lesions.? ? Sinuses:? Visualized sinuses and mastoids are clear.? ? IMPRESSION:? ? 1. No acute intracranial abnormalities. ? 2. Cerebral volume loss and chronic microvascular ischemic changes. ? ? ? Dictated by: Ac Arevalo M.D. on 09/21/2021 at 12:52 ? ? Approved by: Ac Arevalo M.D. on 09/21/2021 at 12:54?? ECG Data Attestation: I personally reviewed and interpreted this ECG as follows: Interpretation: Get sinus bradycardia, rate 55 AL 166 QRS 82 and QTC 449. No acute ST changes. Prior EKG from 09/01/2021 appears similar. MDM Narrative Medical decision making narrative: This is a 66-year-old male comes emergency department complaint of hypertension, nausea and vomiting. Patient tried taking his oral medications today but did not trying taking any his antinausea medications even though he was nauseated this morning he was seen by myself and transferred for possible hypertensive emergency/press. Ultimately diagnosed with hypertensive urgency and was started on additional blood pressure medication and discharged home. Patient had recurrent symptoms today similar to past experiences. He was given a dose of IV enalapril, head CT, chest x-ray and labs did not show any acute emergent changes . His blood pressure had some improvement. He was able to take oral blood pressure medication he has. He was discharged home with plan for him to continue his oral medications at home. Discharge Plan Departure Patient Disposition: Home Clinical Impression: Hypertension, Nausea and vomiting Instructions: DI for Vomiting -- Adult Activity Restrictions/Additional Instructions: Follow up with your physician Dr. Vasques. I would recommend taking your antinausea medications at home. Please take your home blood pressure medications as well when you return home. Please return for fevers, passing out, chest pain or shortness of breath, persistent vomiting, black or bloody stools or other new or concerning symptoms. Prescriptions: No Action ondansetron 4 mg tablet,disintegrating 4 mg PO Q6H PRN (Reason: Nausea) Qty: 30 3RF metformin 500 mg tablet 500 mg PO BID Qty: 180 1RF simvastatin 40 mg tablet 40 mg PO QPM Qty: 90 1RF omeprazole 40 mg capsule,delayed release(DR/EC) 40 mg PO BID Qty: 180 3RF oxycodone 5 mg tablet 10 mg PO Q4H PRN (Reason: pain) Qty: 360 0RF metoprolol succinate 50 mg tablet extended release 24 hr 50 mg PO BID 0RF clonidine HCl 0.1 mg tablet 0.1 mg PO BID Qty: 360 3RF cyclobenzaprine 5 mg tablet 5 mg PO TID PRN (Reason: Spasms) Qty: 60 0RF aspirin 81 mg Tablet,Chewable 81 mg PO QAM 0RF sennosides [senna] 8.6 mg Tablet 8.6 mg PO DAILY 0RF duloxetine [Cymbalta] 20 mg Capsule,Delayed Release(Dr/Ec) 20 mg PO DAILY Qty: 90 3RF furosemide 20 mg tablet 20 mg PO DAILY 0RF Label Comments: take 1 tablet by mouth every morning potassium chloride 10 mEq tablet extended release 10 meq PO DAILY 0RF Label Comments: take 1 tablet by mouth twice a day tamsulosin 0.4 mg capsule 0.4 mg PO DAILY 0RF Label Comments: take 1 capsule by mouth once daily Eliquis 2.5 mg Tablet 2.5 mg PO BID 0RF tamsulosin 0.4 mg capsule 0.4 mg PO QPM 0RF promethazine 25 mg suppository 25 mg AL Q4-6H PRN (Reason: nausea and vomiting) Qty: 12 0RF Referrals: Khang Vasques MD [Primary Care Provider] -
--- NOTE | 2021-09-21 12:43 | DI.CT.S_ITS ---
PROCEDURE: CT HEAD/BRAIN WO CON INDICATIONS: htn, nausea, recurrent symptoms TECHNIQUE: Noncontrast 4.5 mm thick angled axial sections acquired from the foramen magnum to the vertex, with coronal and sagittal reformats. For radiation dose reduction, the following was used: automated exposure control, adjustment of mA and/or kV according to patient size. COMPARISON: [facility], MR, MR HEAD/BRAIN WO/W CON, 09/01/2021, 13:32. [facility], CT, CT HEAD/BRAIN WO CON, 09/01/2021, 8:41. FINDINGS: Image quality: Excellent. CSF spaces: Basal cisterns are patent. No extra-axial fluid collections. The ventricles are symmetric in size and shape. Brain: No intracranial bleeds or masses. There is cerebral volume loss for age, with resultant ventricular and sulcal prominence. There are [id number] periventricular and deep white matter chronic small vessel ischemic changes. There is intracranial internal carotid artery atherosclerosis. Skull and face: Calvarium and visualized facial bones appear intact, without suspicious lesions. Sinuses: Visualized sinuses and mastoids are clear. IMPRESSION: 1. No acute intracranial abnormalities. 2. Cerebral volume loss and chronic microvascular ischemic changes. Dictated by: Ac Arevalo M.D. on 09/21/2021 at 12:52 Approved by: Ac Arevalo M.D. on 09/21/2021 at 12:54
[2021-09-21] MEDS: ONDANSETRON 4 MG/2 ML INJ IV (13:10)
[2021-09-21] MEDS: HYDROMORPHONE 1 MG INJ IV (13:11)
[2021-09-21] MEDS: ENALAPRILAT 2.5 MG/ 2 ML VIAL 0.625 MG IV (13:11)
[2021-09-21] MEDS: METOPROLOL ER 50 MG TABLET PO (13:11)
[2021-09-21 14:29] LABS: COVID19 -Nasal RAPID Negative (Negative)
[2021-09-21 14:51] LABS: Troponin I < 0.012 ng/mL (0.01-0.034)
[2021-09-21] MEDS: HYDROMORPHONE 0.5 MG INJ IV (16:43)
--- NOTE | 2021-09-21 16:59 | PC.NURSE ---
late entry [id number] patricio after pushing enalaprilat over 8 min the pt had pvc and bbb, printed and placed in chart. called pt akash Fry/caregiver to come and get him. offered his home med of oxycodone he requested iv pain med, dr patricio said 0.5mg iv dilauded was ok to give. pt then states he didn't want to go home because of his bp, i explained that this is unfortunately becoming chronic and his labs and ekg are good and he will need to work with his pcp magalys. pt states he has an appt tomorrow with magalys tomorrow.
== END 2021-09-21 17:24 | disposition home or self-care (01) ==
PROVIDERS: Emergency Provider Emergency Medicine; PCP Internal Medicine
DX: I10 Essential (primary) hypertension (principal); R11.2 Nausea with vomiting, unspecified; I49.3 Ventricular premature depolarization; Z20.822 Contact with and (suspected) exposure to COVID-19
CPT/HCPCS: 36415; 70450; 71045; 80053; 82550; 83690; 83735; 84484; 85025; 87635; 93005; 93010; 96374; 96375; 96376; 99284; C9803; J1170; J2405

== ENCOUNTER → 2021-12-28 08:50 | Outpatient (CLI) | payer OTHER, SELFPAY ==
[2021-06-29 15:36] VITALS: BMI 21.4
[2021-12-28 10:46] LABS: Prostate Specific Antigen 3.14 ng/mL (0.10-4.00)
[2021-12-29 09:14] LABS: PSA Free % 30.4 % (.); PSA, Total 2.5 ng/mL (0.0-4.0)
== END ==
PROVIDERS: PCP Internal Medicine; Referring Provider Urology; Visit Provider Urology
DX: C61 Malignant neoplasm of prostate (principal)
CPT/HCPCS: 36415; 84153; 84154

== ENCOUNTER → 2022-02-26 08:13 | Outpatient (CLI) | payer OTHER, SELFPAY ==
[2021-06-29 15:36] VITALS: BMI 21.4
[2022-02-26 09:07] LABS: Add Manual Diff / Slide Review NO; Basophils Absolute Auto 0 /uL (0-100); Basophils Percent Auto 0.7 % (0-2); Eosinophils Absolute Auto 200 /uL (0-450); Eosinophils Percent Auto 4.4 % (2-4); Hemoglobin 13.6 g/dL (13.5-17.5); Lymphocytes Absolute Auto 1000 /uL (1100-4500); Lymphocytes Percent Auto 25.9 % (25-40); Mean Corpuscular HGB Conc 35.7 % (30-36); Mean Corpuscular Hemoglobin 32.9 PG (26-34); Monocytes Absolute Auto 500 /uL (0-900); Monocytes Percent Auto 13.5 % (3-14); Neutrophils Absolute Auto 2100 /uL (1500-7000); Neutrophils Percent Auto 55.5 % (50-75); Platelet Count 123 X10^3/uL (150-400); Red Blood Cell Count 4.13 X10^6/uL (4.5-5.9); White Blood Cell Count 3.8 X10^3/uL (4.5-11.0)
[2022-02-26 10:28] LABS: Alanine Aminotransferase 174 IU/L (<50); Alkaline Phosphatase 121 U/L (38-126); Aspartate Aminotransferase 148 IU/L (17-59); BUN Creatinine Ratio 26.2 (6-22); Bilirubin Total 0.6 mg/dL (0.2-1.3); Blood Urea Nitrogen 33 mg/dL (9-20); Calcium 9.4 mg/dL (8.4-10.2); Carbon Dioxide 29 mmol/L (22-32); Chloride 103 mmol/L (98-107); Estimated Glomerular Filt Rate > 60 mL/min (>60); Glucose 138 mg/dL (80-110); Potassium 4.9 mmol/L (3.4-5.1); Sodium 139 mmol/L (137-145); Total Protein 7.4 g/dL (6.3-8.2)
[2022-02-26 10:29] LABS: Albumin Globulin Ratio 1.2 (1.0-2.8); Cholesterol 141 mg/dL (140-199); Globulin 3.4 g/dL (1.7-4.1); HDL Cholesterol 49 mg/dL (40-60); HEMOLYSIS < 15 (0-50); LDL Cholesterol Calculated 66 mg/dL (<100); Triglycerides 131 mg/dL (35-150)
[2022-02-28 15:38] LABS: Hemoglobin A1C% w Est Avg Glu 6.3 % (4.0-6.0)
== END ==
PROVIDERS: PCP Internal Medicine; Referring Provider Internal Medicine; Visit Provider Internal Medicine
DX: E11.8 Type 2 diabetes mellitus with unspecified complications (principal); E78.2 Mixed hyperlipidemia; I10 Essential (primary) hypertension
CPT/HCPCS: 36415; 80053; 80061; 83036; 85025

== ENCOUNTER → 2022-04-06 07:56 | Outpatient (CLI) | payer OTHER, SELFPAY ==
[2021-06-29 15:36] VITALS: BMI 21.4
== END ==
PROVIDERS: PCP Internal Medicine; Referring Provider Urology; Visit Provider Urology
DX: C61 Malignant neoplasm of prostate (principal)
CPT/HCPCS: 36415; 84153

== ENCOUNTER → 2022-06-02 07:59 | Outpatient (CLI) | payer OTHER, SELFPAY ==
[2021-06-29 15:36] VITALS: BMI 21.4
[2022-06-02 11:25] LABS: Alanine Aminotransferase 156 IU/L (<50); Albumin Globulin Ratio 1.1 (1.0-2.8); Alkaline Phosphatase 89 U/L (38-126); Aspartate Aminotransferase 131 IU/L (17-59); Bilirubin Total 0.5 mg/dL (0.2-1.3); Blood Urea Nitrogen 23 mg/dL (9-20); Calcium 9.4 mg/dL (8.4-10.2); Carbon Dioxide 29 mmol/L (22-32); Chloride 102 mmol/L (98-107); Estimated Glomerular Filt Rate > 60 mL/min (>60); Globulin 3.5 g/dL (1.7-4.1); Glucose 188 mg/dL (80-110); HEMOLYSIS < 15 (0-50); Potassium 4.5 mmol/L (3.4-5.1); Sodium 138 mmol/L (137-145); Total Protein 7.5 g/dL (6.3-8.2)
== END ==
PROVIDERS: PCP Internal Medicine; Referring Provider Urology; Visit Provider Urology
DX: C61 Malignant neoplasm of prostate (principal)
CPT/HCPCS: 36415; 80053

== ENCOUNTER → 2022-06-24 09:20 | Outpatient (CLI) | payer OTHER, SELFPAY ==
[2021-06-29 15:36] VITALS: BMI 21.4
--- NOTE | 2022-06-24 | DI.CT.S_ITS ---
PROCEDURE: CT CHEST ABD PEL W CON INDICATIONS: Malignant neoplasm of prostate TECHNIQUE: After the administration of oral and intravenous contrast, axial sections acquired from the supraclavicular neck to the pubic symphysis. Coronal and sagittal reformats were performed. For radiation dose reduction, the following was used: automated exposure control, adjustment of mA and/or kV according to patient size. COMPARISON: [place], [place], [place] BONE SCAN WHOLE BODY, 06/24/2022, 9:58. FINDINGS: Image quality: Excellent. CHEST: Lower Neck: No enlarged lymph nodes. Thyroid: Within normal limits. Axillae: No enlarged lymph nodes. Chest Wall: Unremarkable. Lungs and Airways: No consolidation or suspicious nodules. Pleura: No pneumothorax or pleural effusions. Heart: Heart size is normal. Moderate coronary artery calcifications. No pericardial effusion. Thoracic Vessels: The aorta and pulmonary arteries demonstrate normal size. No central pulmonary embolism. Mediastinum and Conchis: No enlarged lymph nodes. Esophagus: No wall thickening. No hiatal hernia. ABDOMEN: Liver: Calcifications at the dome of the liver. No focal lesion. Gallbladder: Not distended. Biliary ducts: Unremarkable. Pancreas: Unremarkable. Spleen: No splenomegaly. Adrenal Glands: No nodule. Kidneys and Ureters: No hydronephrosis. Small cyst in the right kidney appears simple, unchanged. Stomach and Bowel: Stomach is prominent. No small bowel obstruction. Diverticulosis. The appendix is not dilated. Peritoneum: No abnormal intraperitoneal fluid. No free air. Ventral Wall: Small umbilical hernia. Abdominal Nodes: No retroperitoneal or mesenteric adenopathy by size criteria. Vessels: Aorta and inferior vena cava are normal in size. Moderate to severe plaque. PELVIS: Pelvic Organs: Prostate fiducial markers. Bladder: No stones. Pelvic Nodes: No enlarged lymph nodes. Miscellaneous: No inguinal hernias are seen. Bones: Sclerotic focus at L2, (6/44), increased. Ground-glass lesion at the right sacrum, (2/98), increased. IMPRESSION: 1. Sclerotic metastases at the right sacrum and L2 are increased. These are consistent with osseous metastatic disease until proven otherwise. 2. No adenopathy. Dictated by: Eric Butt M.D. on 06/24/2022 at 16:13 Approved by: Eric Butt M.D. on 06/24/2022 at 16:28
--- NOTE | 2022-06-24 | DI.NM.S_ITS ---
PROCEDURE: [place] BONE SCAN WHOLE BODY RADIOPHARMACEUTICAL: 20.5 mCi Tc-99m MDP IV. INDICATIONS: Malignant neoplasm of prostate TECHNIQUE: Delayed whole-body scintigrams were obtained approximately 3-4 hours after intravenous injection of radiotracer. Anterior and posterior views were acquired from vertex to feet. Additional left and right oblique views of the pelvis were obtained. COMPARISON: [facility], CT, CT ANGIO CHEST ABDOMEN PELVIS, 09/01/2021, 8:41. [facility], [place], [place] BONE SCAN WHOLE BODY, 06/12/2020, 14:36. FINDINGS: Physiologic uptake is noted within the kidneys and bladder. There is a focus of increased uptake within the right sacrum appearing new compared to prior exam. Minimal appearance of increased uptake is noted within the knees, small bones of the feet as well as shoulder girdles consistent with degenerative change. Minimal scattered areas of uptake are noted within the cervical, thoracic and lumbar spine indistinguishable between degenerative disease and metastatic disease. IMPRESSION: New focus of uptake within the right sacrum. X-ray x-ray pelvis is recommended for further evaluation as metastatic disease cannot be excluded. Dictated by: Chichi Collado M.D. on 06/24/2022 at 21:34 Approved by: Chichi Collado M.D. on 06/24/2022 at 21:38
== END ==
PROVIDERS: PCP Internal Medicine; Referring Provider Urology; Visit Provider Urology
DX: C61 Malignant neoplasm of prostate (principal); C79.51 Secondary malignant neoplasm of bone
CPT/HCPCS: 71260; 74177; 78306; A9503; Q9967

== ENCOUNTER 2022-07-12 03:19 | Emergency (ER) | payer OTHER, SELFPAY ==
[2021-06-29 15:36] VITALS: BMI 21.4
[2022-07-12] VITALS (29 sets, daily range): BP systolic 97–165; BP diastolic 63–101; PULSE 63–140; RESP 7–19; TEMP 36.8; O2SAT 94–99; BMI 21.6
--- NOTE | 2022-07-12 03:23 | ED.ABDPAIN ---
HPI - Abdominal Pain <Ashleydeon Carrasco, DO - Last Filed: 07/14/22 10:25> General Chief Complaint: Abdominal Pain Stated Complaint: feels unwell Time Seen by Provider: 07/12/22 03:22 Source: patient, EMS and old records reviewed Mode of arrival: EMS Limitations: no limitations History of Present Illness HPI narrative: This is a 66-year-old male history of prostate cancer with metastases to the lumbar and pelvic bone, hypertension, dyslipidemia, diabetes, atrial fibrillation on apixaban and chronic pain. Patient was on hospice last year but is no longer. Patient presents this evening with feeling generally unwell. Patient states he is having lower abdominal pain particularly in the right which he states is typical for him but is much more intense. Patient states that the location and nature isn't really different other than more intense. He has had vomiting starting on Tuesday has had difficulty keeping things down but states he has been able to keep down his medications. He does have oral Zofran he took 8 mg prior to arrival. Patient states he has not had a bowel movement since Tuesday but has been passing gas. He denies chest pain but did have some diaphoresis, he is had nausea and vomiting. He denies shortness of breath. No syncope. Patient states he saw his physician on Tuesday which was when he was given the diagnosis of metastatic bone disease from his prostate cancer. Patient states no known drug allergies. Related Data Home Medications Medication Instructions Recorded Confirmed aspirin 81 mg chewable tablet 81 mg PO QAM 11/06/19 06/07/22 sennosides 8.6 mg tablet (senna) 8.6 mg PO DAILY 06/29/21 06/07/22 tamsulosin 0.4 mg capsule 0.4 mg PO DAILY 09/15/21 06/07/22 Previous Rx's Medication Instructions Recorded promethazine 25 mg rectal 25 mg FL Q4-6H PRN nausea and 11/18/20 suppository vomiting #12 ea cyclobenzaprine 5 mg tablet 5 mg PO TID PRN Spasms #60 tabs 02/13/21 ondansetron 4 mg disintegrating 4 mg PO Q6H PRN Nausea #30 tabs 03/11/21 tablet clonidine HCl 0.1 mg tablet 0.1 mg PO BID #360 tabs 08/18/21 omeprazole 40 mg capsule,delayed 40 mg PO BID #180 caps 08/21/21 release duloxetine 20 mg capsule,delayed 20 mg PO DAILY #90 caps 09/22/21 release (Cymbalta) apixaban 2.5 mg tablet (Eliquis) 2.5 mg PO BID #180 tabs 09/29/21 lisinopril 10 mg tablet 10 mg PO DAILY #90 tabs 09/29/21 potassium chloride 10 mEq 10 meq PO DAILY #90 tabs 09/29/21 tablet,extended release metformin 500 mg tablet 500 mg PO BID #180 tabs 11/06/21 metoprolol succinate 50 mg 50 mg PO BID #180 tabs 12/07/21 tablet,extended release 24 hr simvastatin 40 mg tablet 40 mg PO QPM #90 tabs 02/01/22 oxycodone 5 mg tablet 10 mg PO Q4H PRN pain #360 tabs 04/09/22 Allergies Allergy/AdvReac Type Severity Reaction Status Date / Time No Known Drug Allergies Allergy Verified 06/07/22 09:13 Review of Systems <Ashley Carrasco DO - Last Filed: 07/14/22 10:25> Review of Systems ROS Unobtainable: All systems reviewed & are unremarkable except as noted in HPI and below Patient History <Ashley Carrasco DO - Last Filed: 07/14/22 10:25> Medical History (Updated 07/12/22 @ 15:07 by Khang Vasques MD) Cannabis abuse Chronic hepatitis Coronary artery disease involving [place] coronary artery of [place] heart without angina pectoris (~2006) Diverticulosis of large intestine (03/31/12) Essential hypertension Generalized anxiety disorder Kidney stones Mixed hyperlipidemia Paroxysmal A-fib Prostate cancer (~05/2019) Uncomplicated opioid dependence Surgical History H/O heart artery stent (~2006) History of angioplasty (~12/2006) Hx of inguinal hernia surgery (~09/20/08) Hx of inguinal hernia surgery (~03/07/14) Status post laminectomy Social History marital status: unmarried,single number of children: 3 household members: spouse and friend(s) lives independently: Yes caregiver/support person: No housing: house pets and animals: No education level: high school occupational status: other 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, fishing and other Smoking Status: Never smoker Tobacco: How many years used: 56 Smokeless tobacco user: other quit status: has quit before second hand exposure: Yes (On farm[place]/Boat.) alcohol intake: former substance use type: does not use and marijuana eating out: rarely or never Type(s) of exercise: normal ROM and activity and additional Smoking Status: Never smoker alcohol intake frequency: 0-2 drinks per day Alcohol type: beer Substance Use Type: marijuana Exam <Ashley Carrasco DO - Last Filed: 07/14/22 10:25> Narrative Exam Narrative: GENERAL: Alert and oriented x three, thin male in moderate distress patient appears dehydrated. HEENT: Head normocephalic, atraumatic, EOMI, pupils reactive, face symmetric, dry mucous membranes NECK: Supple, full range of motion CARDIOVASCULAR: Regular rate and rhythm without murmurs, rubs or gallops. No JVD. No swelling bilateral lower extremities. RESPIRATORY: Breath sounds equal bilaterally, no wheezes rales or rhonchi. ABDOMEN: Soft, generalized tenderness. Normoactive bowel sounds all 4 quadrants. No guarding or rebound, rigidity, no mass : No CVA tenderness EXTREMITIES: Normal range of motion, no clubbing or edema. Neurovascularly intact NEUROLOGICAL: Cranial nerves II through XII grossly intact. Moving all extremities SKIN: Warm, dry, no petechiae, no rashes or lesions. Initial Vital Signs Initial Vital Signs: Vital Signs Pulse Rate 140 H 07/12/22 03:21 Respiratory Rate 7 L 07/12/22 03:21 Pulse Oximetry 99 07/12/22 03:21 <Carlos Ledezma DO - Last Filed: 07/12/22 13:39> Initial Vital Signs Initial Vital Signs: Vital Signs Pulse Rate 140 H 07/12/22 03:21 Respiratory Rate 7 L 07/12/22 03:21 Pulse Oximetry 99 07/12/22 03:21 Course <Ashley Carrasco DO - Last Filed: 07/14/22 10:25> Orders Ordered: Discontinued Medications Aspirin (Aspirin 81 Mg Chew Tab) 324 mg PO NOW ONE Stop: 07/12/22 04:31 Last Admin: 07/12/22 04:50 Dose: 324 mg Documented By: HITESH Fentanyl (Fentanyl 100 Mcg/2 Ml Inj) 25 mcg IV NOW ONE Stop: 07/12/22 08:13 Last Admin: 07/12/22 08:50 Dose: 25 mcg Documented By: DEVENDRA Heparin Sodium (Porcine) (Heparin 5,000 Unit/Ml Vial) 4,000 unit IV NOW ONE Stop: 07/12/22 07:00 Last Admin: 07/12/22 07:08 Dose: 4,000 unit Documented By: HITESH Hydromorphone HCl (Hydromorphone 1 Mg Inj) 1 mg IV NOW ONE Stop: 07/12/22 03:29 Last Admin: 07/12/22 03:35 Dose: 1 mg Documented By: HITESH Hydromorphone HCl (Hydromorphone 1 Mg Inj) 1 mg IV NOW ONE Stop: 07/12/22 04:46 Last Admin: 07/12/22 04:50 Dose: 1 mg Documented By: HITESH Hydromorphone HCl (Hydromorphone 0.5 Mg Inj) 0.5 mg IV Q2HR PRN PRN Reason: Pain, Severe (7-10) Last Admin: 07/12/22 13:44 Dose: 0.5 mg Documented By: Admin: 07/12/22 11:34 Dose: 0.5 mg Documented By: ANASTASIIA Sodium Chloride (Normal Saline 0.9%) 1,000 mls @ 1,000 mls/hr IV BOLUS ONE Stop: 07/12/22 04:27 Last Infusion: 07/12/22 06:29 Dose: 0 mls/hr Documented By: Admin: 07/12/22 03:35 Dose: 1,000 mls/hr Documented By: HITESH Heparin Sodium/Dextrose (Heparin Drip) 25,000 unit in 500 mls @ 20 mls/hr IV CONT KAITLIN; Protocol Last Titration: 07/12/22 14:15 Dose: 0 units/hr, 0 mls/hr Documented By: Admin: 07/12/22 07:08 Dose: 1,000 units/hr, 20 mls/hr Documented By: HITESH Metoprolol Tartrate (Metoprolol Tartrate 5 Mg/5 Ml Inj) 5 mg IV Q5M KAITLIN Stop: 07/12/22 04:41 Last Admin: 07/12/22 05:41 Dose: Not Given Documented By: Admin: 07/12/22 05:41 Dose: Not Given Documented By: Admin: 07/12/22 05:41 Dose: Not Given Documented By: HITESH Ondansetron HCl (Ondansetron 4 Mg/2 Ml Inj) 4 mg IV NOW ONE Stop: 07/12/22 03:32 Last Admin: 07/12/22 03:34 Dose: 4 mg Documented By: HITESH Pantoprazole Sodium (Pantoprazole 40 Mg Vial) 40 mg IV NOW ONE Stop: 07/12/22 03:29 Last Admin: 07/12/22 03:35 Dose: 40 mg Documented By: HITESH Reevaluation(s) Reevaluation #1: Review patient's labs, CT is still pending but troponin is positive. Patient and I discussed goals of care he is DNR DNI but is open to IV therapy such as IV metoprolol or heparin, discussed if he would be open to cardiac catheterization if offered by Cardiology he thought for a few minutes and states he would likely be open to this. Time: 04:30 Reevaluation #2: Right before patient was to receive IV metoprolol he appears to have converted to a sinus rhythm will repeat EKG but I am able to see P waves with his QRS he is now in the 80s consistently. Time: 04:52 Vital Signs Vital signs: Vital Signs - 8 hr 07/12/22 05:52 07/12/22 05:49 07/12/22 05:49 Pulse Rate 72 76 Respiratory Rate 14 16 Blood Pressure 101/70 101/70 Pulse Oximetry 94 96 Oxygen Delivery Method Room Air 07/12/22 06:00 07/12/22 06:30 07/12/22 07:00 Pulse Rate 74 70 70 Respiratory Rate 15 15 19 Blood Pressure Pulse Oximetry 95 96 96 Oxygen Delivery Method 07/12/22 07:30 07/12/22 08:00 07/12/22 08:22 Pulse Rate 69 68 70 Respiratory Rate 14 11 L 12 Blood Pressure Pulse Oximetry 96 96 97 Oxygen Delivery Method Room Air 07/12/22 08:22 07/12/22 08:30 07/12/22 08:30 Pulse Rate 72 Respiratory Rate 12 Blood Pressure 99/63 97/66 Pulse Oximetry 96 Oxygen Delivery Method 07/12/22 09:00 07/12/22 09:01 07/12/22 09:01 Pulse Rate 68 68 Respiratory Rate 10 L 11 L Blood Pressure 114/70 Pulse Oximetry 96 96 Oxygen Delivery Method 07/12/22 09:30 07/12/22 09:30 07/12/22 10:00 Pulse Rate 63 Respiratory Rate 13 Blood Pressure 109/69 118/75 Pulse Oximetry 96 Oxygen Delivery Method 07/12/22 10:00 07/12/22 10:30 07/12/22 10:30 Pulse Rate 68 71 Respiratory Rate 11 L 16 Blood Pressure 116/77 Pulse Oximetry 97 98 Oxygen Delivery Method 07/12/22 11:00 07/12/22 11:00 07/12/22 11:30 Pulse Rate 73 Respiratory Rate 10 L Blood Pressure 120/76 119/81 Pulse Oximetry 97 Oxygen Delivery Method 07/12/22 11:30 07/12/22 12:00 07/12/22 12:00 Pulse Rate 73 69 Respiratory Rate 16 14 Blood Pressure 121/82 Pulse Oximetry 97 98 Oxygen Delivery Method 07/12/22 12:30 07/12/22 12:30 07/12/22 13:00 Pulse Rate 68 Respiratory Rate 10 L Blood Pressure 123/78 112/72 Pulse Oximetry 98 Oxygen Delivery Method 07/12/22 13:00 Pulse Rate 63 Respiratory Rate 11 L Blood Pressure Pulse Oximetry 97 Oxygen Delivery Method <Carlos Ledezma DO - Last Filed: 07/12/22 13:39> Orders Ordered: Discontinued Medications Aspirin (Aspirin 81 Mg Chew Tab) 324 mg PO NOW ONE Stop: 07/12/22 04:31 Last Admin: 07/12/22 04:50 Dose: 324 mg Documented By: HITESH Fentanyl (Fentanyl 100 Mcg/2 Ml Inj) 25 mcg IV NOW ONE Stop: 07/12/22 08:13 Last Admin: 07/12/22 08:50 Dose: 25 mcg Documented By: DEVENDRA Heparin Sodium (Porcine) (Heparin 5,000 Unit/Ml Vial) 4,000 unit IV NOW ONE Stop: 07/12/22 07:00 Last Admin: 07/12/22 07:08 Dose: 4,000 unit Documented By: HITESH Hydromorphone HCl (Hydromorphone 1 Mg Inj) 1 mg IV NOW ONE Stop: 07/12/22 03:29 Last Admin: 07/12/22 03:35 Dose: 1 mg Documented By: HITESH Hydromorphone HCl (Hydromorphone 1 Mg Inj) 1 mg IV NOW ONE Stop: 07/12/22 04:46 Last Admin: 07/12/22 04:50 Dose: 1 mg Documented By: HITESH Hydromorphone HCl (Hydromorphone 0.5 Mg Inj) 0.5 mg IV Q2HR PRN PRN Reason: Pain, Severe (7-10) Last Admin: 07/12/22 13:44 Dose: 0.5 mg Documented By: Admin: 07/12/22 11:34 Dose: 0.5 mg Documented By: ANASTASIIA Sodium Chloride (Normal Saline 0.9%) 1,000 mls @ 1,000 mls/hr IV BOLUS ONE Stop: 07/12/22 04:27 Last Infusion: 07/12/22 06:29 Dose: 0 mls/hr Documented By: Admin: 07/12/22 03:35 Dose: 1,000 mls/hr Documented By: HITESH Heparin Sodium/Dextrose (Heparin Drip) 25,000 unit in 500 mls @ 20 mls/hr IV CONT KAITLIN; Protocol Last Titration: 07/12/22 14:15 Dose: 0 units/hr, 0 mls/hr Documented By: Admin: 07/12/22 07:08 Dose: 1,000 units/hr, 20 mls/hr Documented By: HITESH Metoprolol Tartrate (Metoprolol Tartrate 5 Mg/5 Ml Inj) 5 mg IV Q5M KAITLIN Stop: 07/12/22 04:41 Last Admin: 07/12/22 05:41 Dose: Not Given Documented By: Admin: 07/12/22 05:41 Dose: Not Given Documented By: Admin: 07/12/22 05:41 Dose: Not Given Documented By: HITESH Ondansetron HCl (Ondansetron 4 Mg/2 Ml Inj) 4 mg IV NOW ONE Stop: 07/12/22 03:32 Last Admin: 07/12/22 03:34 Dose: 4 mg Documented By: HITESH Pantoprazole Sodium (Pantoprazole 40 Mg Vial) 40 mg IV NOW ONE Stop: 07/12/22 03:29 Last Admin: 07/12/22 03:35 Dose: 40 mg Documented By: HITESH Vital Signs Vital signs: Vital Signs - 8 hr 07/12/22 05:52 07/12/22 05:49 07/12/22 05:49 Pulse Rate 72 76 Respiratory Rate 14 16 Blood Pressure 101/70 101/70 Pulse Oximetry 94 96 Oxygen Delivery Method Room Air 07/12/22 06:00 07/12/22 06:30 07/12/22 07:00 Pulse Rate 74 70 70 Respiratory Rate 15 15 19 Blood Pressure Pulse Oximetry 95 96 96 Oxygen Delivery Method 07/12/22 07:30 07/12/22 08:00 07/12/22 08:22 Pulse Rate 69 68 70 Respiratory Rate 14 11 L 12 Blood Pressure Pulse Oximetry 96 96 97 Oxygen Delivery Method Room Air 07/12/22 08:22 07/12/22 08:30 07/12/22 08:30 Pulse Rate 72 Respiratory Rate 12 Blood Pressure 99/63 97/66 Pulse Oximetry 96 Oxygen Delivery Method 07/12/22 09:00 07/12/22 09:01 07/12/22 09:01 Pulse Rate 68 68 Respiratory Rate 10 L 11 L Blood Pressure 114/70 Pulse Oximetry 96 96 Oxygen Delivery Method 07/12/22 09:30 07/12/22 09:30 07/12/22 10:00 Pulse Rate 63 Respiratory Rate 13 Blood Pressure 109/69 118/75 Pulse Oximetry 96 Oxygen Delivery Method 07/12/22 10:00 07/12/22 10:30 07/12/22 10:30 Pulse Rate 68 71 Respiratory Rate 11 L 16 Blood Pressure 116/77 Pulse Oximetry 97 98 Oxygen Delivery Method 07/12/22 11:00 07/12/22 11:00 07/12/22 11:30 Pulse Rate 73 Respiratory Rate 10 L Blood Pressure 120/76 119/81 Pulse Oximetry 97 Oxygen Delivery Method 07/12/22 11:30 07/12/22 12:00 07/12/22 12:00 Pulse Rate 73 69 Respiratory Rate 16 14 Blood Pressure 121/82 Pulse Oximetry 97 98 Oxygen Delivery Method 07/12/22 12:30 07/12/22 12:30 07/12/22 13:00 Pulse Rate 68 Respiratory Rate 10 L Blood Pressure 123/78 112/72 Pulse Oximetry 98 Oxygen Delivery Method 07/12/22 13:00 Pulse Rate 63 Respiratory Rate 11 L Blood Pressure Pulse Oximetry 97 Oxygen Delivery Method MDM - Abdominal Pain <Ashley Carrasco, DO - Last Filed: 07/14/22 10:25> Lab Data Result diagrams: 07/12/22 03:29 07/12/22 03:29 Labs: Lab Results 07/12/22 07/12/22 07/12/22 Range/Units 03:29 03:29 03:29 WBC 8.7 (4.5-11.0) X10^3/uL RBC 4.42 L (4.5-5.9) X10^6/uL Hgb 14.5 (13.5-17.5) g/dL Hct 41.5 (41-53) % MCV 93.8 (80-100) fL MCH 32.9 (26-34) PG MCHC 35.0 (30-36) % RDW 13.2 (11.6-14.8) % Plt Count 168 (150-400) X10^3/uL Neut % (Auto) 74.6 (50-75) % Lymph % (Auto) 13.5 L (25-40) % [place] % (Auto) 11.2 (3-14) % Eos % (Auto) 0.1 L (2-4) % Baso % (Auto) 0.6 (0-2) % Neut # (Auto) 6500 (8993-0119) /uL Lymph # (Auto) 1200 (8508-3436) /uL [place] # (Auto) 1000 H (0-900) /uL Eos # (Auto) 0 (0-450) /uL Baso # (Auto) 100 (0-100) /uL PT 14.4 H (10.1-12.7) SECONDS INR 1.3 (0.9-1.3) APTT 28 (26-36) SECONDS Sodium 140 (137-145) mmol/L Potassium 4.1 (3.4-5.1) mmol/L Chloride 102 (98-107) mmol/L Carbon Dioxide 22 (22-32) mmol/L BUN 37 H (9-20) mg/dL Creatinine 0.99 (0.66-1.25) mg/dL Estimated GFR > 60 (>60) mL/min BUN/Creatinine Ratio 37.4 H (6-22) Glucose 194 H (80-110) mg/dL Lactate (0.7-2.1) mmol/L Calcium 9.7 (8.4-10.2) mg/dL Total Bilirubin 1.0 (0.2-1.3) mg/dL AST 79 H (17-59) IU/L ALT 56 H (<50) IU/L Alkaline Phosphatase 85 (38-126) U/L Total Creatine Kinase (55-170) U/L CK-MB (CK-2) (<2.37) ng/mL CK-MB (CK-2) Rel Index (1.5-5.0) % Troponin I (0.01-0.034) ng/mL Total Protein 9.4 H (6.3-8.2) g/dL Albumin 4.7 (3.5-5.0) g/dL Globulin 4.7 H (1.7-4.1) g/dL Albumin/Globulin Ratio 1.0 (1.0-2.8) Lipase 48 (23-300) U/L SARS-CoV-2 (PCR) (Negative) Influenza A (RT-PCR) (NEGATIVE) Influenza B (RT-PCR) (NEGATIVE) RSV (PCR) (Negative) 07/12/22 07/12/22 07/12/22 Range/Units 03:29 03:29 04:10 WBC (4.5-11.0) X10^3/uL RBC (4.5-5.9) X10^6/uL Hgb (13.5-17.5) g/dL Hct (41-53) % MCV (80-100) fL MCH (26-34) PG MCHC (30-36) % RDW (11.6-14.8) % Plt Count (150-400) X10^3/uL Neut % (Auto) (50-75) % Lymph % (Auto) (25-40) % [place] % (Auto) (3-14) % Eos % (Auto) (2-4) % Baso % (Auto) (0-2) % Neut # (Auto) (0477-8472) /uL Lymph # (Auto) (6926-1924) /uL [place] # (Auto) (0-900) /uL Eos # (Auto) (0-450) /uL Baso # (Auto) (0-100) /uL PT (10.1-12.7) SECONDS INR (0.9-1.3) APTT (26-36) SECONDS Sodium (137-145) mmol/L Potassium (3.4-5.1) mmol/L Chloride (98-107) mmol/L Carbon Dioxide (22-32) mmol/L BUN (9-20) mg/dL Creatinine (0.66-1.25) mg/dL Estimated GFR (>60) mL/min BUN/Creatinine Ratio (6-22) Glucose (80-110) mg/dL Lactate 3.0 H (0.7-2.1) mmol/L Calcium (8.4-10.2) mg/dL Total Bilirubin (0.2-1.3) mg/dL AST (17-59) IU/L ALT (<50) IU/L Alkaline Phosphatase (38-126) U/L Total Creatine Kinase 188 H (55-170) U/L CK-MB (CK-2) 5.25 H (<2.37) ng/mL CK-MB (CK-2) Rel Index 2.8 (1.5-5.0) % Troponin I 1.570 H* (0.01-0.034) ng/mL Total Protein (6.3-8.2) g/dL Albumin (3.5-5.0) g/dL Globulin (1.7-4.1) g/dL Albumin/Globulin Ratio (1.0-2.8) Lipase (23-300) U/L SARS-CoV-2 (PCR) Negative (Negative) Influenza A (RT-PCR) Flu a negative (NEGATIVE) Influenza B (RT-PCR) Flu b negative (NEGATIVE) RSV (PCR) Negative (Negative) 07/12/22 07/12/22 07/12/22 Range/Units 05:45 05:45 12:55 WBC (4.5-11.0) X10^3/uL RBC (4.5-5.9) X10^6/uL Hgb (13.5-17.5) g/dL Hct (41-53) % MCV (80-100) fL MCH (26-34) PG MCHC (30-36) % RDW (11.6-14.8) % Plt Count (150-400) X10^3/uL Neut % (Auto) (50-75) % Lymph % (Auto) (25-40) % [place] % (Auto) (3-14) % Eos % (Auto) (2-4) % Baso % (Auto) (0-2) % Neut # (Auto) (2759-9849) /uL Lymph # (Auto) (6912-7885) /uL [place] # (Auto) (0-900) /uL Eos # (Auto) (0-450) /uL Baso # (Auto) (0-100) /uL PT (10.1-12.7) SECONDS INR (0.9-1.3) APTT 93 H* D (26-36) SECONDS Sodium (137-145) mmol/L Potassium (3.4-5.1) mmol/L Chloride (98-107) mmol/L Carbon Dioxide (22-32) mmol/L BUN (9-20) mg/dL Creatinine (0.66-1.25) mg/dL Estimated GFR (>60) mL/min BUN/Creatinine Ratio (6-22) Glucose (80-110) mg/dL Lactate 1.1 (0.7-2.1) mmol/L Calcium (8.4-10.2) mg/dL Total Bilirubin (0.2-1.3) mg/dL AST (17-59) IU/L ALT (<50) IU/L Alkaline Phosphatase (38-126) U/L Total Creatine Kinase (55-170) U/L CK-MB (CK-2) (<2.37) ng/mL CK-MB (CK-2) Rel Index (1.5-5.0) % Troponin I 1.520 H* (0.01-0.034) ng/mL Total Protein (6.3-8.2) g/dL Albumin (3.5-5.0) g/dL Globulin (1.7-4.1) g/dL Albumin/Globulin Ratio (1.0-2.8) Lipase (23-300) U/L SARS-CoV-2 (PCR) (Negative) Influenza A (RT-PCR) (NEGATIVE) Influenza B (RT-PCR) (NEGATIVE) RSV (PCR) (Negative) Imaging Data CT scan - abdomen/pelvis: Radiologist's Impression: sclerosis of right sacrum, could represent metastases. No other acute process. ECG Data Attestation: I personally reviewed and interpreted this ECG as follows: Prior ECG tracings: available for review Interpretation: Sinus tachycardia rate of 134 FL 154 QRS is 76 and QTC 448. Patient appears have a little bit of tremor that may be translating patient's EKG. Patient has prior from 09/21/2021 which was not sinus tachycardia but appears similar. Many of his prior EKGs show AFib. EKG 2. Shows sinus rhythm, rate of 78 FL 142 QRS is 72 and QTC of 5-4. No acute ST elevation or depression noted. MDM Narrative Medical decision making narrative: This is a 66-year-old male with history of prostate cancer and states he was recently diagnosed with bone metastases presents with increasing right lower quadrant pain, persistent nausea and vomiting through the weekend in today with decreased stool output over the past 24 hours he is making flatus but potential high risk for obstruction, he is tachycardic, hypertensive had some episodes of vomiting here. Fluids, pain management antinausea medications, labs, imaging and re-evaluation patient EKG appeared possibly sinus tach but actually looks irregular on telemetry during evaluation he appears to have converted back to a sinus rhythm. Patient troponin is positive at 1.57 he states no active chest pain now maybe in the last day, lactate has improved from 3-1. Electrolytes and renal function appear stable without major changes. Patient is not anemic, does not appear to be septic CT did not show any infectious changes there is a right sacral lesion that could be metastases possibly related to his pain and prostate cancer pain. Discussed with patient he is DNR/DNI but is open to interventions such as IV therapies any potentially cardiac catheterization. Heparin was held until CT resulted as patient has risk factors for bleeding or potential bleed. Patient has had improvement of his pain and has not had additional vomiting after antinausea medications. Patient signed out to Dr. Ledezma while seeing placement for NSTEMI vs. Afib RVR with demand ischemia vs. NSTEMI. Spoke with Dr. Alvarado cardiology at [facility] and discussed initiating heparin gtt and evaluation by cardiology for possible catherization and goals of care discussion. [0700] ([place]) Patient received in sign out from [Danilo]. I have reviewed the clinical course and performed an independent history and physical exam. Patient having no chest pain, shortness of breath, dizziness, weakness or lightheadedness nor other obvious cardiac equivalent, he is complaining of some left lower quadrant pain and requesting pain medication. 1100 - call from [facility] in [place]. Interpreter Deaf called first and after discussion he was in agreement with diagnosis and plan. Requests I discuss with hospitalist. Dr. Krishnamurthy (hospitalist) called back and is happy to accept patient. [facility] called and will arrive to provide transport at 1345 <Carlos Ledezma, DO - Last Filed: 07/12/22 13:39> Lab Data Labs: Lab Results 07/12/22 07/12/22 07/12/22 Range/Units 03:29 03:29 03:29 WBC 8.7 (4.5-11.0) X10^3/uL RBC 4.42 L (4.5-5.9) X10^6/uL Hgb 14.5 (13.5-17.5) g/dL Hct 41.5 (41-53) % MCV 93.8 (80-100) fL MCH 32.9 (26-34) PG MCHC 35.0 (30-36) % RDW 13.2 (11.6-14.8) % Plt Count 168 (150-400) X10^3/uL Neut % (Auto) 74.6 (50-75) % Lymph % (Auto) 13.5 L (25-40) % [place] % (Auto) 11.2 (3-14) % Eos % (Auto) 0.1 L (2-4) % Baso % (Auto) 0.6 (0-2) % Neut # (Auto) 6500 (9121-2298) /uL Lymph # (Auto) 1200 (5952-3155) /uL [place] # (Auto) 1000 H (0-900) /uL Eos # (Auto) 0 (0-450) /uL Baso # (Auto) 100 (0-100) /uL PT 14.4 H (10.1-12.7) SECONDS INR 1.3 (0.9-1.3) APTT 28 (26-36) SECONDS Sodium 140 (137-145) mmol/L Potassium 4.1 (3.4-5.1) mmol/L Chloride 102 (98-107) mmol/L Carbon Dioxide 22 (22-32) mmol/L BUN 37 H (9-20) mg/dL Creatinine 0.99 (0.66-1.25) mg/dL Estimated GFR > 60 (>60) mL/min BUN/Creatinine Ratio 37.4 H (6-22) Glucose 194 H (80-110) mg/dL Lactate (0.7-2.1) mmol/L Calcium 9.7 (8.4-10.2) mg/dL Total Bilirubin 1.0 (0.2-1.3) mg/dL AST 79 H (17-59) IU/L ALT 56 H (<50) IU/L Alkaline Phosphatase 85 (38-126) U/L Total Creatine Kinase (55-170) U/L CK-MB (CK-2) (<2.37) ng/mL CK-MB (CK-2) Rel Index (1.5-5.0) % Troponin I (0.01-0.034) ng/mL Total Protein 9.4 H (6.3-8.2) g/dL Albumin 4.7 (3.5-5.0) g/dL Globulin 4.7 H (1.7-4.1) g/dL Albumin/Globulin Ratio 1.0 (1.0-2.8) Lipase 48 (23-300) U/L SARS-CoV-2 (PCR) (Negative) Influenza A (RT-PCR) (NEGATIVE) Influenza B (RT-PCR) (NEGATIVE) RSV (PCR) (Negative) 07/12/22 07/12/22 07/12/22 Range/Units 03:29 03:29 04:10 WBC (4.5-11.0) X10^3/uL RBC (4.5-5.9) X10^6/uL Hgb (13.5-17.5) g/dL Hct (41-53) % MCV (80-100) fL MCH (26-34) PG MCHC (30-36) % RDW (11.6-14.8) % Plt Count (150-400) X10^3/uL Neut % (Auto) (50-75) % Lymph % (Auto) (25-40) % [place] % (Auto) (3-14) % Eos % (Auto) (2-4) % Baso % (Auto) (0-2) % Neut # (Auto) (9735-6911) /uL Lymph # (Auto) (3949-5058) /uL [place] # (Auto) (0-900) /uL Eos # (Auto) (0-450) /uL Baso # (Auto) (0-100) /uL PT (10.1-12.7) SECONDS INR (0.9-1.3) APTT (26-36) SECONDS Sodium (137-145) mmol/L Potassium (3.4-5.1) mmol/L Chloride (98-107) mmol/L Carbon Dioxide (22-32) mmol/L BUN (9-20) mg/dL Creatinine (0.66-1.25) mg/dL Estimated GFR (>60) mL/min BUN/Creatinine Ratio (6-22) Glucose (80-110) mg/dL Lactate 3.0 H (0.7-2.1) mmol/L Calcium (8.4-10.2) mg/dL Total Bilirubin (0.2-1.3) mg/dL AST (17-59) IU/L ALT (<50) IU/L Alkaline Phosphatase (38-126) U/L Total Creatine Kinase 188 H (55-170) U/L CK-MB (CK-2) 5.25 H (<2.37) ng/mL CK-MB (CK-2) Rel Index 2.8 (1.5-5.0) % Troponin I 1.570 H* (0.01-0.034) ng/mL Total Protein (6.3-8.2) g/dL Albumin (3.5-5.0) g/dL Globulin (1.7-4.1) g/dL Albumin/Globulin Ratio (1.0-2.8) Lipase (23-300) U/L SARS-CoV-2 (PCR) Negative (Negative) Influenza A (RT-PCR) Flu a negative (NEGATIVE) Influenza B (RT-PCR) Flu b negative (NEGATIVE) RSV (PCR) Negative (Negative) 07/12/22 07/12/22 07/12/22 Range/Units 05:45 05:45 12:55 WBC (4.5-11.0) X10^3/uL RBC (4.5-5.9) X10^6/uL Hgb (13.5-17.5) g/dL Hct (41-53) % MCV (80-100) fL MCH (26-34) PG MCHC (30-36) % RDW (11.6-14.8) % Plt Count (150-400) X10^3/uL Neut % (Auto) (50-75) % Lymph % (Auto) (25-40) % [place] % (Auto) (3-14) % Eos % (Auto) (2-4) % Baso % (Auto) (0-2) % Neut # (Auto) (2172-3274) /uL Lymph # (Auto) (2981-2976) /uL [place] # (Auto) (0-900) /uL Eos # (Auto) (0-450) /uL Baso # (Auto) (0-100) /uL PT (10.1-12.7) SECONDS INR (0.9-1.3) APTT 93 H* D (26-36) SECONDS Sodium (137-145) mmol/L Potassium (3.4-5.1) mmol/L Chloride (98-107) mmol/L Carbon Dioxide (22-32) mmol/L BUN (9-20) mg/dL Creatinine (0.66-1.25) mg/dL Estimated GFR (>60) mL/min BUN/Creatinine Ratio (6-22) Glucose (80-110) mg/dL Lactate 1.1 (0.7-2.1) mmol/L Calcium (8.4-10.2) mg/dL Total Bilirubin (0.2-1.3) mg/dL AST (17-59) IU/L ALT (<50) IU/L Alkaline Phosphatase (38-126) U/L Total Creatine Kinase (55-170) U/L CK-MB (CK-2) (<2.37) ng/mL CK-MB (CK-2) Rel Index (1.5-5.0) % Troponin I 1.520 H* (0.01-0.034) ng/mL Total Protein (6.3-8.2) g/dL Albumin (3.5-5.0) g/dL Globulin (1.7-4.1) g/dL Albumin/Globulin Ratio (1.0-2.8) Lipase (23-300) U/L SARS-CoV-2 (PCR) (Negative) Influenza A (RT-PCR) (NEGATIVE) Influenza B (RT-PCR) (NEGATIVE) RSV (PCR) (Negative) MDM Narrative Medical decision making narrative: This is a 66-year-old male with history of prostate cancer and states he was recently diagnosed with bone metastases presents with increasing right lower quadrant pain, persistent nausea and vomiting through the weekend in today with decreased stool output over the past 24 hours he is making flatus but potential high risk for obstruction, he is tachycardic, hypertensive had some episodes of vomiting here. Fluids, pain management antinausea medications, labs, imaging and re-evaluation patient EKG appeared possibly sinus tach but actually looks irregular on telemetry during evaluation he appears to have converted back to a sinus rhythm. Patient troponin is positive at 1.57 he states no active chest pain now maybe in the last day, lactate has improved from 3-1. Electrolytes and renal function appear stable without major changes. Patient is not anemic, does not appear to be septic CT did not show any infectious changes there is a right sacral lesion that could be metastases possibly related to his pain and prostate cancer pain. Discussed with patient he is DNR/DNI but is open to interventions such as IV therapies any potentially cardiac catheterization. Heparin was held until CT resulted as patient has risk factors for bleeding. Patient has had improvement of his pain and has not had additional vomiting after antinausea medications. Patient signed out to Dr. Ledezma while seeing placement for NSTEMI vs. Afib RVR with demand ischemia [0700] ([place]) Patient received in sign out from [Danilo]. I have reviewed the clinical course and performed an independent history and physical exam. Patient having no chest pain, shortness of breath, dizziness, weakness or lightheadedness nor other obvious cardiac equivalent, he is complaining of some left lower quadrant pain and requesting pain medication. 1100 - call from [facility] in [place]. Interpreter Deaf called first and after discussion he was in agreement with diagnosis and plan. Requests I discuss with hospitalist. Dr. Krishnamurthy (hospitalist) called back and is happy to accept patient. ALS called and will arrive to provide transport at 1345 <Carlos Ledezma, DO - Last Filed: 07/12/22 13:39> Critical Care Time Critical Care Time: Yes Total Critical Care Time: 35 Attestation: The high probability of a clinically significant, sudden or life threatening deterioration of the [CV] system(s) required my full and direct attention, intervention and personal management. The aggregate critical care time was [35] minutes. This time is in addition to time spent performing reported procedures but includes the following: [x] Data Review and interpretation [x] Patient assessment and monitoring of vital signs [x] Documentation [x] Medication orders and management Discharge Plan Departure Patient Disposition: [facility] Clinical Impression: Non-ST elevation MN (NSTEMI), Atrial fibrillation with rapid ventricular response, Vomiting Prescriptions: No Action ondansetron 4 mg tablet,disintegrating 4 mg PO Q6H PRN (Reason: Nausea) Qty: 30 3RF omeprazole 40 mg capsule,delayed release(DR/EC) 40 mg PO BID Qty: 180 3RF metformin 500 mg tablet 500 mg PO BID Qty: 180 2RF metoprolol succinate 50 mg tablet extended release 24 hr 50 mg PO BID Qty: 180 2RF simvastatin 40 mg tablet 40 mg PO QPM Qty: 90 1RF oxycodone 5 mg tablet 10 mg PO Q4H PRN (Reason: pain) Qty: 360 0RF clonidine HCl 0.1 mg tablet 0.1 mg PO BID Qty: 360 3RF Eliquis 2.5 mg tablet 2.5 mg PO BID Qty: 180 3RF lisinopril 10 mg tablet 10 mg PO DAILY Qty: 90 3RF potassium chloride 10 mEq tablet extended release 10 meq PO DAILY Qty: 90 3RF duloxetine [Cymbalta] 20 mg capsule,delayed release(DR/EC) 20 mg PO DAILY Qty: 90 3RF cyclobenzaprine 5 mg tablet 5 mg PO TID PRN (Reason: Spasms) Qty: 60 0RF aspirin 81 mg Tablet,Chewable 81 mg PO QAM sennosides [senna] 8.6 mg Tablet 8.6 mg PO DAILY tamsulosin 0.4 mg capsule 0.4 mg PO DAILY Label Comments: take 1 capsule by mouth once daily promethazine 25 mg suppository 25 mg FL Q4-6H PRN (Reason: nausea and vomiting) Qty: 12 0RF Referrals: Khang Vasques MD [Primary Care Provider] -
--- NOTE | 2022-07-12 03:29 | DI.CT.S_ITS ---
PROCEDURE: CT ABDOMEN PELVIS W CON INDICATIONS: Abdominal pain, RLQ, hx prostate ca, bone mets, +v/no bm TECHNIQUE: After the administration of intravenous contrast, axial sections acquired from the lung bases to the pubic symphysis. Coronal and sagittal reformats were performed. For radiation dose reduction, the following was used: automated exposure control, adjustment of mA and/or kV according to patient size. COMPARISON: [facility], CT, CT CHEST ABD PEL W CON, 06/24/2022, 11:31. [facility], NM, NM BONE SCAN WHOLE BODY, 06/24/2022, 9:58. [facility], CT, CT ABDOMEN PELVIS W CON, 08/31/2021, 14:00. FINDINGS: Image quality: Excellent. Lung bases: Subpleural scars and atelectasis in right middle lobe and left lower lobe. Heart: Moderate coronary artery calcification. ABDOMEN: Liver: Because plastered calcific density in the hepatic dome/right hemidiaphragm. Hepatic steatosis. Gallbladder: Unremarkable. Biliary ducts: Unremarkable. Pancreas: Unremarkable. Spleen: Unremarkable. Adrenal Glands: Unremarkable. Kidneys and Ureters: Unremarkable. Stomach and Bowel: Stomach, small bowel loops, and colon are normal in caliber. Diverticulosis without acute diverticulitis. Question of malrotation of intestine. Peritoneum: No abnormal intraperitoneal fluid. No free air. Ventral Wall: No hernias. Abdominal Nodes: No retroperitoneal or mesenteric adenopathy by size criteria. Vessels: Aorta and inferior vena cava are normal in size. Moderate atherosclerotic calcifications. PELVIS: Pelvic Organs: Surgical clips or metallic implants in prostate. Bladder: Unremarkable. Pelvic Nodes: No enlarged lymph nodes. Miscellaneous: No hernias are seen. Bones: There are sclerotic foci in L2 vertebral body and sacral ala, compatible with metastases. In addition, there are 2 lucent lesions in the right iliac crest. [id number] degenerative disc and facet disease in lumbar spine. IMPRESSION: 1. No acute abnormalities in abdomen or pelvis. 2. Sclerotic foci in L2 vertebral body, and sacral ala, compatible with osseous metastases. 3. 2 lytic bone lesions in right iliac crest, suspicious for metastasis. A differential diagnosis is multiple myelomas. Metastatic bone lesions from prostate cancer are typically sclerotic in appearance. MRI with and without contrast would be helpful. 4. Diverticulosis without acute diverticulitis. 5. Question malrotation of intestine. 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 Dictated by: Ac Arevalo M.D. on 07/12/2022 at 8:17 Approved by: Ac Arevalo M.D. on 07/12/2022 at 8:38
[2022-07-12] MEDS: ONDANSETRON 4 MG/2 ML INJ IV (03:34)
[2022-07-12] MEDS: SODIUM CHLORIDE 0.9% 1,000 ML 1000 ML IV (03:35)
[2022-07-12] MEDS: PANTOPRAZOLE 40 MG VIAL IV (03:35)
[2022-07-12] MEDS: HYDROMORPHONE 1 MG INJ IV ×2 (03:35→04:50)
[2022-07-12 03:42] LABS: Add Manual Diff / Slide Review NO; Basophils Absolute Auto 100 /uL (0-100); Basophils Percent Auto 0.6 % (0-2); Eosinophils Absolute Auto 0 /uL (0-450); Eosinophils Percent Auto 0.1 % (2-4); Hematocrit 41.5 % (41-53); Hemoglobin 14.5 g/dL (13.5-17.5); Lymphocytes Absolute Auto 1200 /uL (1100-4500); Lymphocytes Percent Auto 13.5 % (25-40); Mean Corpuscular Hemoglobin 32.9 PG (26-34); Mean Corpuscular Volume 93.8 fL (80-100); Monocytes Absolute Auto 1000 /uL (0-900); Monocytes Percent Auto 11.2 % (3-14); Neutrophils Absolute Auto 6500 /uL (1500-7000); Neutrophils Percent Auto 74.6 % (50-75); Platelet Count 168 X10^3/uL (150-400); Red Blood Cell Count 4.42 X10^6/uL (4.5-5.9); Red Cell Distribution Width 13.2 % (11.6-14.8); White Blood Cell Count 8.7 X10^3/uL (4.5-11.0)
[2022-07-12 03:44] LABS: INR 1.3 (0.9-1.3); Prothrombin Time 14.4 SECONDS (10.1-12.7)
[2022-07-12 03:47] LABS: Creatine Kinase 188 U/L (55-170); PTT Partial Thromboplastin Tim 28 SECONDS (26-36)
[2022-07-12 03:49] LABS: Alanine Aminotransferase 56 IU/L (<50); Albumin 4.7 g/dL (3.5-5.0); Alkaline Phosphatase 85 U/L (38-126); Aspartate Aminotransferase 79 IU/L (17-59); BUN Creatinine Ratio 37.4 (6-22); Blood Urea Nitrogen 37 mg/dL (9-20); Calcium 9.7 mg/dL (8.4-10.2); Carbon Dioxide 22 mmol/L (22-32); Chloride 102 mmol/L (98-107); Estimated Glomerular Filt Rate > 60 mL/min (>60); Globulin 4.7 g/dL (1.7-4.1); Glucose 194 mg/dL (80-110); HEMOLYSIS 22 (0-50); Lipase 48 U/L (23-300); Potassium 4.1 mmol/L (3.4-5.1); Sodium 140 mmol/L (137-145); Total Protein 9.4 g/dL (6.3-8.2)
[2022-07-12 04:02] LABS: CKMB % Relative Index 2.8 % (1.5-5.0); Creatine Kinase MB 5.25 ng/mL (<2.37)
[2022-07-12] MEDS: ASPIRIN 81 MG CHEW TAB 324 MG PO (04:50)
[2022-07-12 04:52] LABS: Influenza A - CEPHEID Flu A NEGATIVE (NEGATIVE); Influenza B - CEPHEID Flu B NEGATIVE (NEGATIVE); Respiratory Syncytial Virus Negative (Negative)
[2022-07-12 04:53] LABS: COVID-19 CEPHEID 4-PLEX PCR Negative (Negative)
[2022-07-12 05:34] LABS: Reflexed Lactate in 2 Hours Y
[2022-07-12 06:05] LABS: Lactate 2HR (Lactic Acid Rflx) 1.1 mmol/L (0.7-2.1)
--- NOTE | 2022-07-12 06:21 | PC.NURSE ---
0620 Lab called with critical lab- Troponin 1.520. notified
[2022-07-12] MEDS: HEPARIN 5,000 UNIT/ML VIAL 4000 UNIT IV (07:08)
[2022-07-12] MEDS: HEPARIN DRIP 25,000 UNIT/500 ML IV.SOLN 20 UNIT IV (07:08)
--- NOTE | 2022-07-12 08:23 | DI.ECHO.S_ITS ---
[facility] +---------+ : : [address] : : : : [phone] : : : : Phone: [phone] Echocardiogram Report + + :Name: RAFIA SNIDER Study Date: 07/12/2022 Height: 70 in : :[facility] ReadingLocation: Weight: 150 lb: : Gender: Male BSA: 1.8 m2 : :: 1955 Age: 66 yrs BP: 97/66 mmHg: :Reason For Study: NSTEMI : :Ordering Physician: NANCY, : :TAE Performed By: Antonio Hui : :Referring: TAE CRUZ : + + Interpretation Summary The left ventricle is normal in size. The ejection fraction is estimated to be 45-50%. Compared to the prior exam, the left ventricular function is reduced. Previous LVEF 50 to 55%. There is akinesis of basal to mid inferior wall, basal posterior and basal inferior lateral wall as well as basal anterior and basal anterolateral wall along with basal anterior septum. New wall motion abnormalities. Diastolic parameters suggest a pseudonormalization pattern, consistent with probable elevated filling pressures. The right ventricle is normal in size and function. There is moderate mitral regurgitation. Compared to the prior echo study, there has been an increase in the severity of mitral regurgitation. There is mild tricuspid regurgitation. Compared to the prior echo exam, there has been no change in TR severity. Pulmonary artery pressures cannot be estimated because of the lack of a measurable TR jet velocity. The IVC is of normal diameter and collapses greater than 50% with a sniff. This suggests a low right atrial pressure of 3 mm Hg. Procedure: A two-dimensional transthoracic echocardiogram with color flow and Doppler was performed. The study quality was technically adequate. Comparison is made with the echocardiogram of 11/13/2020. The patient was in normal sinus rhythm during the exam. Left Ventricle: The left ventricle is normal in size. Proximal septal thickening is noted. There is no echo evidence for significant left ventricular outflow tract obstruction. There is no thrombus. Left ventricular systolic function is mildly reduced. The ejection fraction is estimated to be 45-50%. Compared to the prior exam, the left ventricular function is reduced. There is akinesis of basal to mid inferior wall, basal posterior and basal inferior lateral wall as well as basal anterior and anterolateral wall along with basal anterior septum. New wall motion abnormalities. Diastolic parameters suggest a pseudonormalization pattern, consistent with probable elevated filling pressures. Right Ventricle: The right ventricle is normal in size and function. Atria: Both atria are normal in size. Both atria have remained unchanged in size since the prior echo exam. The interatrial septum grossly appears intact with no obvious evidence for an atrial septal defect. Mitral Valve: There is mild mitral annular calcification. There is moderate mitral regurgitation. Compared to the prior echo study, there has been an increase in the severity of mitral regurgitation. Aortic Valve: There is mild aortic valve sclerosis. There is discrete nodular thickening of the non- coronary cusp. The aortic valve is trileaflet. There is no aortic valve stenosis. No aortic regurgitation is present. Tricuspid Valve: The tricuspid valve is normal. There is mild tricuspid regurgitation. Pulmonary artery pressures cannot be estimated because of the lack of a measurable TR jet velocity. Compared to the prior echo exam, there has been no change in TR severity. Pulmonic Valve: The pulmonic valve is normal in structure and function. There is mild pulmonic regurgitation. Great Vessels: The aortic root is mildly dilated. The dimensions of the ascending aorta are normal. The IVC is of normal diameter and collapses greater than 50% with a sniff. This suggests a low right atrial pressure of 3 mm Hg. Pericardium/ Pleura There is no pericardial effusion. There is no pleural effusion. MMode/2D Measurements & Calculations LVIDd: 4.7 cm LVOT diam: 2.0 cm LVIDs: 3.9 cm Ao root diam: 4.0 cm FS: 15.7 % asc Aorta Diam: 3.5 cm IVSd: 1.1 cm LVPWd: 0.78 cm LV chi. diameter/BSA (cm/m^2): 2.5 LV sys. diameter/BSA (cm/m^2): 2.1 LA A2 area: 17.1 cm2 RA long axis: 5.2 cm LA A4 area: 15.6 cm2 RA area: 15.3 cm2 LA length (vol): 5.0 cm RA vol: 38.3 ml LA vol: 45.8 ml RA : 20.7 ml/m2 LA vol index: 24.8 ml/m2 TAPSE: 2.4 cm Doppler Measurements & Calculations Ao V2 max: 82.8 cm/sec LVOT Max Miah: 74.0 cm/sec Ao V2 mean: 59.5 cm/sec LV V1 max P.2 mmHg Ao max P.7 mmHg LV V1 VTI: 15.7 cm Ao mean P.6 mmHg ZEUS(I,D): 3.0 cm2 Ao V2 VTI: 16.3 cm ZEUS(V,D): 2.8 cm2 sev ratio: 0.96 ZEUS indexed to BSA (cm^2/m^2): 1.6 MV E max miah: 86.0 cm/sec MR VTI: 172.9 cm MV A max miah: 64.0 cm/sec MV E/A: 1.3 Med Peak E' Miah: 5.6 cm/sec E/E' med: 15.4 Lat Peak E' Miah: 6.5 cm/sec E/E' lat: 13.2 E/e' average: 14.3 MV dec time: 0.21 sec MR ERO: 0.12 cm2 MR PISA: 1.9 cm2 SV(LVOT): 49.2 ml MR flow rate: 57.4 cm3/sec MR PISA radius: 0.55 cm Reading Physician:09:48 AM
--- NOTE | 2022-07-12 08:23 | DI.RAD.S_ITS ---
PROCEDURE: XR CHEST 1V INDICATIONS: chest / abdomen pain TECHNIQUE: One view of the chest was acquired. COMPARISON: [facility], CR, XR CHEST 1V, 09/21/2021, 11:11. FINDINGS: Surgical changes and devices: None. Lungs and pleura: Lungs are clear. No pleural effusions or pneumothorax. Mediastinum: Mediastinal contours appear normal. Heart size is normal. Bones and chest wall: No suspicious bony lesions. Overlying soft tissues appear unremarkable. IMPRESSION: No acute process. Dictated by: Ollie Marrero M.D. on 07/12/2022 at 10:46 Approved by: Ollie Marrero M.D. on 07/12/2022 at 10:46
[2022-07-12] MEDS: fentaNYL 100 MCG/2 ML INJ 25 MCG IV (08:50)
[2022-07-12] MEDS: HYDROMORPHONE 0.5 MG INJ IV ×2 (11:34→13:44)
--- NOTE | 2022-07-12 13:20 | PC.NURSE ---
Patient was accepted to [facility] in [place]. Dr. Krishnamurthy accepted, patient has a bed in room 216. Report number: [id number]. [place] [facility] ambulance ETA to [facility] is 1345, arrival to [facility] approximately 1700.
[2022-07-12 13:37] LABS: PTT Partial Thromboplastin Tim 93 SECONDS (26-36)
--- NOTE | 2022-07-12 15:35 | PC.NURSE ---
pt left around 1415 with heparin gtt infusing at 20 ml/hour , 1000units per hour.
== END 2022-07-12 14:15 | disposition short-term general hospital (02) ==
PROVIDERS: Emergency Medicine; Emergency Provider Emergency Medicine; PCP Internal Medicine
DX: I21.4 Non-ST elevation (NSTEMI) myocardial infarction (principal); I48.20 Chronic atrial fibrillation, unspecified; R11.10 Vomiting, unspecified; R11.2 Nausea with vomiting, unspecified; R00.0 Tachycardia, unspecified; I10 Essential (primary) hypertension; Z20.822 Contact with and (suspected) exposure to COVID-19; Z79.899 Other long term (current) drug therapy; Z79.01 Long term (current) use of anticoagulants
CPT/HCPCS: 0241U; 36415; 71045; 74177; 80053; 82550; 82553; 83605; 83690; 84484; 85025; 85610; 85730; 87040; 93005; 93306; 96361; 96365; 96366; 96375; 96376; 99285; 99291; C9113; J1170; J1644; J2405; J3010; Q9967

== ENCOUNTER → 2022-07-29 07:36 | Outpatient (CLI) | payer OTHER, SELFPAY ==
[2021-06-29 15:36] VITALS: BMI 21.4
[2022-07-29 09:30] LABS: Hemoglobin A1C% w Est Avg Glu 5.7 % (4.0-6.0)
[2022-07-29 10:03] LABS: Alanine Aminotransferase 101 IU/L (<50); Albumin 4.4 g/dL (3.5-5.0); Albumin Globulin Ratio 1.1 (1.0-2.8); Alkaline Phosphatase 102 U/L (38-126); Aspartate Aminotransferase 87 IU/L (17-59); BUN Creatinine Ratio 29.1 (6-22); Bilirubin Total 0.6 mg/dL (0.2-1.3); Blood Urea Nitrogen 25 mg/dL (9-20); Calcium 9.5 mg/dL (8.4-10.2); Carbon Dioxide 25 mmol/L (22-32); Chloride 103 mmol/L (98-107); Cholesterol 139 mg/dL (140-199); Estimated Glomerular Filt Rate > 60 mL/min (>60); Globulin 3.9 g/dL (1.7-4.1); Glucose 150 mg/dL (80-110); HDL Cholesterol 44 mg/dL (40-60); HEMOLYSIS < 15 (0-50); LDL Cholesterol Calculated 80 mg/dL (<100); Potassium 4.5 mmol/L (3.4-5.1); Sodium 140 mmol/L (137-145); Total Protein 8.3 g/dL (6.3-8.2); Triglycerides 77 mg/dL (35-150)
== END ==
PROVIDERS: PCP Internal Medicine; Referring Provider Internal Medicine; Visit Provider Internal Medicine
DX: E11.8 Type 2 diabetes mellitus with unspecified complications (principal); E78.2 Mixed hyperlipidemia; I10 Essential (primary) hypertension
CPT/HCPCS: 36415; 80053; 80061; 83036

== ENCOUNTER 2022-08-09 13:30 | Emergency (ER) | payer OTHER, SELFPAY ==
[2022-07-30 10:14] VITALS: BMI 21.4
[2022-08-09 13:48] VITALS: BP 134/86; PULSE 67; RESP 18; TEMP 36.6; O2SAT 99
--- NOTE | 2022-08-09 15:18 | PC.NURSE ---
Pt had cardiac stents placed 2 weeks ago, h/o prostate CA. taking eliquis and plavix. woke today with miguel ángel red bloody urine. reports mild dysuria.
[2022-08-09 15:43] LABS: Appearance Urine UA CLOUDY; Bilirubin Urine UA 1+ (NEGATIVE); Color Urine UA RED; Glucose Urine UA TRACE g/dL (Negative); Ketones Urine UA NEGATIVE (NEGATIVE); Leukocyte Esterase Urine UA NEGATIVE (NEGATIVE); Nitrite Urine UA NEGATIVE (Negative); Occult Blood Urine UA 3+ (Negative); Protein Urine UA 3+ (Negative); Specific Gravity Urine UA >=1.030 (1.000-1.035); Urobilinogen Urine UA 0.2 E.U./dL (0.2); pH Urine UA 6.5 (4.5-8.0)
[2022-08-09 15:47] LABS: Ictotest Urine Negative (Negative)
[2022-08-09 15:53] LABS: Bacteria Urine None Seen; Culture Indicated Urine Cult Not Indicated; RBC Urine >100/HPF (0-5/HPF); Squamous Epithelial Cell Urine None Seen (0-5/HPF); WBC Urine 0-1/HPF (0-5/HPF)
--- NOTE | 2022-08-09 16:08 | ED.GENADULT ---
HPI - General Adult General Chief complaint: Urogenital-Male Stated complaint: blood in urine > amount on blood thinners x1 Time Seen by Provider: 08/09/22 14:02 Source: patient and family Mode of arrival: Ambulatory History of Present Illness HPI narrative: Patient is a 67-year-old male. Was started on apixaban and Plavix at the beginning of the month after having cardiac stents placed. He also has prostate cancer that has metastasized to his back and his left hip. He is not currently under the care by Oncology but is scheduled to see them next month. He states last evening he had a hemorrhoid and had rectal bleeding and then started having blood in his urine. He is still urinating like normal. Feels like he is emptying his bladder. No fevers. Has his baseline abdominal tenderness. No nosebleeds. No chest pain. No shortness of breath. No easy bruising. Related Data Home Medications Medication Instructions Recorded Confirmed sennosides 8.6 mg tablet (senna) 8.6 mg PO DAILY 06/29/21 08/09/22 tamsulosin 0.4 mg capsule 0.4 mg PO DAILY 09/15/21 08/09/22 atorvastatin 80 mg tablet 80 mg PO BEDTIME 07/30/22 08/09/22 clopidogrel 75 mg tablet 75 mg PO DAILY 07/30/22 08/09/22 hydrocortisone 2.5 % topical cream 1 applic topical DAILY 07/30/22 08/09/22 lisinopril 10 mg tablet 10 mg PO BID 07/30/22 08/09/22 Previous Rx's Medication Instructions Recorded promethazine 25 mg rectal 25 mg VA Q4-6H PRN nausea and 11/18/20 suppository vomiting #12 ea clonidine HCl 0.1 mg tablet 0.1 mg PO BID #360 tabs 08/18/21 omeprazole 40 mg capsule,delayed 40 mg PO BID #180 caps 08/21/21 release duloxetine 20 mg capsule,delayed 20 mg PO DAILY #90 caps 09/22/21 release (Cymbalta) apixaban 2.5 mg tablet (Eliquis) 2.5 mg PO BID #180 tabs 09/29/21 potassium chloride 10 mEq 10 meq PO DAILY #90 tabs 09/29/21 tablet,extended release metformin 500 mg tablet 500 mg PO BID #180 tabs 02/25/22 metoprolol succinate 50 mg 50 mg PO BID #180 tabs 12/07/21 tablet,extended release 24 hr Allergies Allergy/AdvReac Type Severity Reaction Status Date / Time No Known Drug Allergies Allergy Verified 08/09/22 13:51 Review of Systems Constitutional Constitutional: Reports system reviewed and no additional complaints, except as documented ENT Ears, Nose, Mouth, and Throat: Reports system reviewed and no additional complaints, except as documented Cardiovascular Cardiovascular: Reports system reviewed and no additional complaints, except as documented Respiratory Respiratory: Reports system reviewed and no additional complaints, except as documented Gastrointestinal Gastrointestinal: Reports system reviewed and no additional complaints, except as documented Integumentary/Breasts Skin/Breast: Reports system reviewed and no additional complaints, except as documented Neurologic Neurologic: Reports system reviewed and no additional complaints, except as documented Hematologic/Lymphatic On Anticoagulants: Yes Patient History Medical History Cannabis abuse Chronic hepatitis Coronary artery disease involving stebbins coronary artery of stebbins heart without angina pectoris (~2006) Diverticulosis of large intestine (03/31/12) Essential hypertension Generalized anxiety disorder Kidney stones Mixed hyperlipidemia Paroxysmal A-fib Prostate cancer (~05/2019) Uncomplicated opioid dependence Surgical History H/O heart artery stent (~2006) History of angioplasty (~12/2006) Hx of inguinal hernia surgery (~09/20/08) Hx of inguinal hernia surgery (~03/07/14) Status post laminectomy Social History marital status: unmarried,single number of children: 3 household members: spouse and friend(s) lives independently: Yes caregiver/support person: No housing: house pets and animals: No education level: high school occupational status: other 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/mandaeism: None leisure activities: music, fishing and other Smoking Status: Never smoker Tobacco: How many years used: 56 Smokeless tobacco user: other quit status: has quit before second hand exposure: Yes (On farmland/Boat.) alcohol intake: former substance use type: does not use and marijuana eating out: rarely or never Type(s) of exercise: normal ROM and activity and additional Smoking Status: Never smoker alcohol intake frequency: 0-2 drinks per day Alcohol type: beer Substance Use Type: marijuana Exam Initial Vital Signs Initial Vital Signs: Vital Signs Temperature 98 F 08/09/22 13:48 Pulse Rate 67 08/09/22 13:48 Respiratory Rate 18 08/09/22 13:48 Blood Pressure 134/86 08/09/22 13:48 Pulse Oximetry 99 08/09/22 13:48 Oxygen Delivery Method 08/09/22 13:48 Const General: cooperative and comfortable HENMT Head: normal to inspection and normocephalic Resp Effort & Inspection: normal respiratory effort Cardio Rate: regular rate GI Inspection: normal to inspection and non-distended Palpation: tender (Lower abdomen) Skin General: no rashes or lesions noted Neuro General: patient alert, patient awake and moves all extremities Extrem General: normal to inspection and capillary refill normal Psych Appearance: grossly normal and well kempt Course Orders Ordered: ED Orders 08/09/22 15:15 Ictotest Urine Stat Urinalysis and Microscopic Stat Vital Signs Vital signs: Vital Signs - 8 hr 08/09/22 13:48 Temperature 98 F Pulse Rate 67 Respiratory Rate 18 Blood Pressure 134/86 Pulse Oximetry 99 Oxygen Delivery Method Room Air Medical Decision Making Lab Data Lab results reviewed: Yes I reviewed the patient's lab results. Labs: Lab Results 08/09/22 Range/Units 15:15 Urine Color Red Urine Appearance Cloudy Urine pH 6.5 (4.5-8.0) Ur Specific [place] >=1.030 H (1.000-1.035) Urine Protein 3+ H (Negative) Urine Glucose (UA) Trace H (Negative) g/dL Urine Ketones Negative (NEGATIVE) Urine Occult Blood 3+ H (Negative) Urine Nitrate Negative (Negative) Urine Bilirubin 1+ H (NEGATIVE) Ur Bilirubin Confirm Negative (Negative) Urine Urobilinogen 0.2 (0.2) E.U./dL Ur Leukocyte Esterase Negative (NEGATIVE) Urine RBC >100/hpf H (0-5/HPF) Urine WBC 0-1/hpf (0-5/HPF) Ur Squamous Epith Cells None seen (0-5/HPF) Urine Bacteria None seen (None) Ur Culture Indicated? Cult not indicated MDM Narrative Medical decision making narrative: Patient is emptying his bladder. Has hematuria but no signs of infection. This is most likely related to his apixaban and also his Plavix however the risks of stopping these medications far outweigh the benefit currently. Had a discussion with him regarding this. He will increase his fluid intake so that he is urinating frequently. He understands the return precautions. He is follow-up already scheduled. Discharge Plan Departure Patient Disposition: Home Clinical Impression: Hematuria Instructions: DI for Hematuria Activity Restrictions/Additional Instructions: Keep all of your scheduled medical appointments. Continue to take all of your medications as directed. You may still have some blood in your ear and over the next couple days however if you start having fevers, pain with urination or not feeling like your emptying your bladder police return to the emergency department for further evaluation. Prescriptions: No Action omeprazole 40 mg capsule,delayed release(DR/EC) 40 mg PO BID Qty: 180 3RF metformin 500 mg tablet 500 mg PO BID Qty: 180 2RF metoprolol succinate 50 mg tablet extended release 24 hr 50 mg PO BID Qty: 180 2RF clonidine HCl 0.1 mg tablet 0.1 mg PO BID Qty: 360 3RF Eliquis 2.5 mg tablet 2.5 mg PO BID Qty: 180 3RF potassium chloride 10 mEq tablet extended release 10 meq PO DAILY Qty: 90 3RF duloxetine [Cymbalta] 20 mg capsule,delayed release(DR/EC) 20 mg PO DAILY Qty: 90 3RF clopidogrel 75 mg tablet 75 mg PO DAILY atorvastatin 80 mg tablet 80 mg PO BEDTIME lisinopril 10 mg tablet 10 mg PO BID hydrocortisone 2.5 % cream 1 applic topical DAILY Label Comments: APPLY TO FACE AND BODY TWICE DAILY FOR 2 WEEKS THEN NEEDED sennosides [senna] 8.6 mg Tablet 8.6 mg PO DAILY tamsulosin 0.4 mg capsule 0.4 mg PO DAILY Label Comments: take 1 capsule by mouth once daily promethazine 25 mg suppository 25 mg VA Q4-6H PRN (Reason: nausea and vomiting) Qty: 12 0RF Referrals: Khang Vasques MD [Primary Care Provider] -
== END 2022-08-09 16:18 | disposition home or self-care (01) ==
PROVIDERS: Emergency Provider Emergency Medicine; PCP Internal Medicine
DX: R31.9 Hematuria, unspecified (principal); C61 Malignant neoplasm of prostate; C79.9 Secondary malignant neoplasm of unspecified site; Z79.01 Long term (current) use of anticoagulants; Z79.899 Other long term (current) drug therapy
CPT/HCPCS: 81001; 99281; 99282

== ENCOUNTER 2022-09-13 13:03 | Observation (INO) | payer OTHER, SELFPAY ==
[2022-07-30 10:14] VITALS: BMI 21.4
[2022-09-13] VITALS (8 sets, daily range): BP systolic 102–191; BP diastolic 67–130; PULSE 62–96; RESP 14–20; TEMP 35.9–36.7; O2SAT 97–100; BMI 22.2
[2022-09-13] MEDS: ONDANSETRON 4 MG/2 ML INJ IV (13:49)
[2022-09-13] MEDS: SODIUM CHLORIDE 0.9% 500 ML 1000 ML IV (13:51)
[2022-09-13 14:57] LABS: Add Manual Diff / Slide Review NO; Basophils Absolute Auto 100 /uL (0-100); Basophils Percent Auto 0.7 % (0-2); Eosinophils Absolute Auto 0 /uL (0-450); Eosinophils Percent Auto 0.1 % (2-4); Hematocrit 39.4 % (41-53); Hemoglobin 13.7 g/dL (13.5-17.5); Lymphocytes Absolute Auto 900 /uL (1100-4500); Lymphocytes Percent Auto 11.6 % (25-40); Mean Corpuscular HGB Conc 34.8 % (30-36); Mean Corpuscular Volume 91.9 fL (80-100); Monocytes Absolute Auto 600 /uL (0-900); Monocytes Percent Auto 7.6 % (3-14); Neutrophils Absolute Auto 6000 /uL (1500-7000); Platelet Count 180 X10^3/uL (150-400); Red Blood Cell Count 4.29 X10^6/uL (4.5-5.9); Red Cell Distribution Width 13.2 % (11.6-14.8); White Blood Cell Count 7.5 X10^3/uL (4.5-11.0)
[2022-09-13 15:03] LABS: INR 1.3 (0.9-1.3); Prothrombin Time 14.9 SECONDS (10.1-12.7)
[2022-09-13] MEDS: HYDROMORPHONE 1 MG INJ IV ×3 (15:03→19:53)
[2022-09-13 15:10] LABS: Alanine Aminotransferase 183 IU/L (<50); Albumin 4.2 g/dL (3.5-5.0); Alkaline Phosphatase 133 U/L (38-126); Aspartate Aminotransferase 128 IU/L (17-59); BUN Creatinine Ratio 33.8 (6-22); Blood Urea Nitrogen 22 mg/dL (9-20); Calcium 9.4 mg/dL (8.4-10.2); Carbon Dioxide 21 mmol/L (22-32); Chloride 106 mmol/L (98-107); Creatine Kinase 73 U/L (55-170); Estimated Glomerular Filt Rate > 60 mL/min (>60); Globulin 4.1 g/dL (1.7-4.1); Glucose 192 mg/dL (80-110); HEMOLYSIS 16 (0-50); Lipase 102 U/L (23-300); Potassium 3.9 mmol/L (3.4-5.1); Sodium 141 mmol/L (137-145); Total Protein 8.3 g/dL (6.3-8.2)
[2022-09-13 15:11] LABS: Influenza A - CEPHEID Flu A NEGATIVE (NEGATIVE); Influenza B - CEPHEID Flu B NEGATIVE (NEGATIVE); Respiratory Syncytial Virus Negative (Negative)
[2022-09-13 15:15] LABS: COVID-19 CEPHEID 4-PLEX PCR Negative (Negative)
[2022-09-13 15:21] LABS: Troponin I 0.053 ng/mL (0.01-0.034)
[2022-09-13 16:23] LABS: Amorphous Sediment Urine 2+; Bacteria Urine None Seen; Culture Indicated Urine Cult Not Indicated; RBC Urine 0-1/HPF (0-5/HPF); Transitional Epi Cells Urine 0-1/HPF (0-5/HPF); WBC Urine None Seen (0-5/HPF)
--- NOTE | 2022-09-13 16:54 | ED.NAVMDI ---
HPI - Nausea/Vomiting/Diarrhea General Chief complaint: Nausea/Vomiting/Diarrhea Stated complaint: Prostate CA/Htn, Vomiting Time Seen by Provider: 09/13/22 16:41 History of Present Illness HPI Narrative: Patient here with spouse, brought in by ambulance from home. Has history of prostatic cancer/coronary disease/paroxysmal atrial fibrillation/diabetes, is anticoagulated. Primary care is Dr. Khang Vasques, oncologist Dr. Brantley. Patient denies denies any chest pain. Does not feel the same symptoms he did with a non-STEMI back in July of last year and had 3 stents. He did not have chest pain at that time either. Patient and state this is typical today of his over indulgence in food which causes nausea and vomiting which causes him not to be take his home pain medication and cause body wide pain. Patient admits overdosing on lobster bisque last Tuesday and has had abdominal pain and vomiting since then. EKG at this time is sinus rhythm no ST elevation. Second troponin is pending. Patient is feeling better. Nausea much better. Pain has improved. Patient was given Dilaudid. CT imaging is pending. Related Data Home Medications Medication Instructions Recorded Confirmed tamsulosin 0.4 mg capsule 0.4 mg PO DAILY 09/15/21 09/10/22 atorvastatin 80 mg tablet 80 mg PO BEDTIME 07/30/22 09/10/22 clopidogrel 75 mg tablet 75 mg PO DAILY 07/30/22 09/10/22 hydrocortisone 2.5 % topical cream 1 applic topical DAILY 07/30/22 09/10/22 lisinopril 20 mg tablet 20 mg PO BID 08/16/22 09/10/22 Previous Rx's Medication Instructions Recorded promethazine 25 mg rectal 25 mg UT Q4-6H PRN nausea and 11/18/20 suppository vomiting #12 ea clonidine HCl 0.1 mg tablet 0.1 mg PO BID #360 tabs 08/18/21 duloxetine 20 mg capsule,delayed 20 mg PO DAILY #90 caps 09/22/21 release (Cymbalta) apixaban 2.5 mg tablet (Eliquis) 2.5 mg PO BID #180 tabs 09/29/21 potassium chloride 10 mEq 10 meq PO DAILY #90 tabs 09/29/21 tablet,extended release metoprolol succinate 50 mg See Rx Instructions .Route 08/16/22 tablet,extended release 24 hr .COMPLEX #270 tabs metformin 500 mg tablet 500 mg PO BID #180 tabs 08/19/22 omeprazole 40 mg capsule,delayed 40 mg PO BID #180 caps 09/07/22 release oxycodone 5 mg tablet 10 mg PO Q4H PRN pain #360 tabs 09/21/22 Allergies Allergy/AdvReac Type Severity Reaction Status Date / Time No Known Drug Allergies Allergy Verified 09/10/22 09:24 Review of Systems Review of Systems Narrative: GENERAL: negative chills, fatigue, malaise, fever, sweats. HEENT: negative sinus pain, ear pain, sore throat RESPIRATORY: negative dyspnea, cough CARDIOVASCULAR: negative chest pain, palpitations GASTROINTESTINAL: Positive nausea, vomiting, abdominal pain : negative dysuria, frequency, hematuria MUSCULOSKELETAL: negative muscle or bony pain SKIN: negative rash, skin lesions NEUROLOGIC: negative weakness, numbness ROS Unobtainable: All systems reviewed & are unremarkable except as noted in HPI and below Patient History Medical History Cannabis abuse Chronic hepatitis Coronary artery disease involving [place] coronary artery of [place] heart without angina pectoris (~2006) Diverticulosis of large intestine (03/31/12) Essential hypertension Generalized anxiety disorder Hematuria Kidney stones Mixed hyperlipidemia Paroxysmal A-fib Prostate cancer (~05/2019) Uncomplicated opioid dependence Surgical History H/O heart artery stent (~2006) History of angioplasty (~12/2006) Hx of inguinal hernia surgery (~09/20/08) Hx of inguinal hernia surgery (~03/07/14) Status post laminectomy Social History marital status: unmarried,single number of children: 3 household members: friend(s) and other lives independently: Yes caregiver/support person: No housing: house pets and animals: No education level: high school occupational status: other 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/sabianism: None leisure activities: music, fishing and other Smoking Status: Never smoker Tobacco: How many years used: 56 Smokeless tobacco user: other quit status: has quit before second hand exposure: Yes (On farm[place]/Boat.) alcohol intake: former substance use type: does not use and marijuana eating out: rarely or never Type(s) of exercise: normal ROM and activity and additional Smoking Status: Never smoker alcohol intake frequency: 0-2 drinks per day Alcohol type: beer Substance Use Type: marijuana Exam Initial Vital Signs Initial Vital Signs: Vital Signs Temperature 96.7 F L 09/13/22 13:17 Pulse Rate 70 09/13/22 13:17 Respiratory Rate 16 09/13/22 13:17 Blood Pressure 191/130 H 09/13/22 13:17 Pulse Oximetry 100 09/13/22 13:17 Oxygen Delivery Method 09/13/22 13:17 Course Orders Ordered: Discontinued Medications Acetaminophen (Acetaminophen 325 Mg Tablet) 650 mg PO Q6H PRN PRN Reason: Fever/Mild Pain (1-3) Last Admin: 09/14/22 11:36 Dose: 650 mg Documented By: SKYLER Apixaban (Apixaban 5 Mg Tablet) 2.5 mg PO NOW ONE Stop: 09/13/22 20:32 Last Admin: 09/13/22 20:31 Dose: 2.5 mg Documented By: ELSI Apixaban (Apixaban 5 Mg Tablet) 2.5 mg PO BID [facility] Last Admin: 09/14/22 08:25 Dose: 2.5 mg Documented By: SKYLER Aspirin (Aspirin 325 Mg Tablet) 325 mg PO DAILY [facility] Last Admin: 09/14/22 08:26 Dose: Not Given Documented By: SKYLER Atorvastatin Calcium (Atorvastatin 20 Mg Tablet) 80 mg PO NOW ONE Stop: 09/13/22 20:32 Last Admin: 09/13/22 20:31 Dose: 80 mg Documented By: ELSI Atorvastatin Calcium (Atorvastatin 20 Mg Tablet) 80 mg PO BEDTIME [facility] Clonidine HCl (Clonidine 0.1 Mg Tablet) 0.1 mg PO NOW ONE Stop: 09/13/22 20:35 Last Admin: 09/13/22 20:34 Dose: 0.1 mg Documented By: ELSI Clonidine HCl (Clonidine 0.1 Mg Tablet) 0.1 mg PO BID [facility] Last Admin: 09/14/22 08:32 Dose: 0.1 mg Documented By: SKYLER Clopidogrel Bisulfate (Clopidogrel 75 Mg Tablet) 75 mg PO DAILY [facility] Last Admin: 09/14/22 08:25 Dose: 75 mg Documented By: SKYLER Clopidogrel Bisulfate (Clopidogrel 75 Mg Tablet) 75 mg PO DAILY [facility] Dextrose (Dextrose 50 % In Water 25 Gm/50 Ml Syringe) 25 gm IV PRN PRN PRN Reason: Hypoglycemia Duloxetine HCl (Duloxetine 20 Mg Capsule) 20 mg PO DAILY [facility] Last Admin: 09/14/22 08:25 Dose: 20 mg Documented By: BT Hydromorphone HCl (Hydromorphone 1 Mg Inj) 1 mg IV NOW ONE Stop: 09/13/22 14:58 Last Admin: 09/13/22 15:03 Dose: 1 mg Documented By: AT Hydromorphone HCl (Hydromorphone 1 Mg Inj) 1 mg IV NOW ONE Stop: 09/13/22 17:02 Last Admin: 09/13/22 17:07 Dose: 1 mg Documented By: AT Hydromorphone HCl (Hydromorphone 1 Mg Inj) 1 mg IV NOW ONE Stop: 09/13/22 19:50 Last Admin: 09/13/22 19:53 Dose: 1 mg Documented By: KLS Sodium Chloride (Normal Saline 0.9%) 500 mls @ 1,000 mls/hr IV BOLUS ONE Stop: 09/13/22 13:59 Last Infusion: 09/13/22 16:03 Dose: 0 mls/hr Documented By: Admin: 09/13/22 13:51 Dose: 1,000 mls/hr Documented By: AT Insulin Human Lispro (Insulin Lispro 100 Unit/Ml 3ml Vial) 0 unit SUBCUT [facility]; Protocol Last Admin: 09/14/22 12:26 Dose: 1 unit Documented By: SKYLER Co-signed By: HILARIO Admin: 09/14/22 08:11 Dose: Not Given Documented By: SKYLER Lisinopril (Lisinopril 20 Mg Tablet) 20 mg PO BID [facility] Last Admin: 09/14/22 08:33 Dose: 20 mg Documented By: SKYLER Metformin HCl (Metformin Hcl 500 Mg Tablet) 500 mg PO NOW ONE Stop: 09/13/22 20:34 Last Admin: 09/13/22 20:33 Dose: 500 mg Documented By: ELSI Metformin HCl (Metformin Hcl 500 Mg Tablet) 500 mg PO BID [facility] Last Admin: 09/14/22 08:23 Dose: 500 mg Documented By: SKYLER Metoprolol Succinate (Metoprolol Er 50 Mg Tablet) 100 mg PO NOW ONE Stop: 09/13/22 20:35 Last Admin: 09/13/22 20:34 Dose: 100 mg Documented By: ELSI Metoprolol Succinate (Metoprolol Er 25 Mg Tablet) 25 mg PO BID [facility] Metoprolol Succinate (Metoprolol Er 50 Mg Tablet) 50 mg PO DAILY [facility] Last Admin: 09/14/22 08:34 Dose: Not Given Documented By: BT Metoprolol Succinate (Metoprolol Er 50 Mg Tablet) 100 mg PO QPM [facility] Ondansetron HCl (Ondansetron 4 Mg/2 Ml Inj) 4 mg IV NOW PRN PRN Reason: Nausea And Vomiting Last Admin: 09/13/22 13:49 Dose: 4 mg Documented By: AT Ondansetron HCl (Ondansetron 4 Mg/2 Ml Inj) 4 mg IV Q6HR PRN PRN Reason: Nausea And Vomiting Last Admin: 09/14/22 02:33 Dose: 4 mg Documented By: AM Oxycodone HCl (Oxycodone Ir 5 Mg Tablet) 5 mg PO Q6HR PRN PRN Reason: Pain, Moderate (4-6) Last Admin: 09/14/22 11:36 Dose: 5 mg Documented By: Admin: 09/14/22 02:33 Dose: 5 mg Documented By: AM Oxycodone HCl (Oxycodone Ir 10 Mg Tablet) 10 mg PO Q6HR PRN PRN Reason: Pain, Severe (7-10) Last Admin: 09/14/22 14:54 Dose: 10 mg Documented By: Admin: 09/14/22 08:25 Dose: 10 mg Documented By: Admin: 09/13/22 22:04 Dose: 10 mg Documented By: ELSI Pantoprazole Sodium (Pantoprazole Dr 20 Mg Tablet) 40 mg PO NOW ONE Stop: 09/13/22 20:32 Last Admin: 09/13/22 20:31 Dose: 40 mg Documented By: ELSI Pantoprazole Sodium (Pantoprazole Dr 40 Mg Tablet) 40 mg PO BID [facility] Last Admin: 09/14/22 08:25 Dose: 40 mg Documented By: BT Potassium Chloride (Potassium Chloride 10 Meq Tab) 10 meq PO DAILY [facility] Last Admin: 09/14/22 08:23 Dose: 10 meq Documented By: BT Tamsulosin HCl (Tamsulosin 0.4 Mg Capsule) 0.4 mg PO DAILY [facility] Last Admin: 09/14/22 08:25 Dose: 0.4 mg Documented By: BT Reevaluation(s) Reevaluation #1: Patient and agree for admit and understand need to complete serial enzymes for the heart as well as echocardiogram in the morning Time: 19:21 Vital Signs Vital signs: Vital Signs - 8 hr 09/13/22 13:17 09/13/22 13:30 09/13/22 14:00 Temperature 96.7 F L Pulse Rate 70 64 66 Respiratory Rate 16 18 Blood Pressure 191/130 H 170/94 H 174/109 H Pulse Oximetry 100 99 Oxygen Delivery Method Room Air Room Air 09/13/22 16:00 09/13/22 16:15 09/13/22 16:45 Temperature Pulse Rate 70 70 68 Respiratory Rate 20 20 Blood Pressure 153/83 H 102/67 119/73 Pulse Oximetry 98 97 99 Oxygen Delivery Method Room Air Room Air Room Air MDM - Nausea/Vomiting/Diarrhea Differential Diagnosis Differential diagnosis: Likely gastroenteritis, dehydration and other (Non-STEMI/pancreatitis/diverticulitis) Lab Data Result diagrams: 09/13/22 14:45 09/13/22 14:45 Labs: Lab Results 09/13/22 09/13/22 09/13/22 Range/Units 14:23 14:45 14:45 WBC 7.5 (4.5-11.0) X10^3/uL RBC 4.29 L (4.5-5.9) X10^6/uL Hgb 13.7 (13.5-17.5) g/dL Hct 39.4 L (41-53) % MCV 91.9 (80-100) fL MCH 32.0 (26-34) PG MCHC 34.8 (30-36) % RDW 13.2 (11.6-14.8) % Plt Count 180 (150-400) X10^3/uL Neut % (Auto) 80.0 H (50-75) % Lymph % (Auto) 11.6 L (25-40) % Door % (Auto) 7.6 (3-14) % Eos % (Auto) 0.1 L (2-4) % Baso % (Auto) 0.7 (0-2) % Neut # (Auto) 6000 (3828-8276) /uL Lymph # (Auto) 900 L (6237-7827) /uL Door # (Auto) 600 (0-900) /uL Eos # (Auto) 0 (0-450) /uL Baso # (Auto) 100 (0-100) /uL PT 14.9 H (10.1-12.7) SECONDS INR 1.3 (0.9-1.3) Sodium (137-145) mmol/L Potassium (3.4-5.1) mmol/L Chloride (98-107) mmol/L Carbon Dioxide (22-32) mmol/L BUN (9-20) mg/dL Creatinine (0.66-1.25) mg/dL Estimated GFR (>60) mL/min BUN/Creatinine Ratio (6-22) Glucose (80-110) mg/dL Calcium (8.4-10.2) mg/dL Total Bilirubin (0.2-1.3) mg/dL AST (17-59) IU/L ALT (<50) IU/L Alkaline Phosphatase (38-126) U/L Total Creatine Kinase (55-170) U/L CK-MB (CK-2) CK-MB (CK-2) Rel Index Troponin I (0.01-0.034) ng/mL Total Protein (6.3-8.2) g/dL Albumin (3.5-5.0) g/dL Globulin (1.7-4.1) g/dL Albumin/Globulin Ratio (1.0-2.8) Lipase (23-300) U/L Urine RBC (0-5/HPF) Urine WBC (0-5/HPF) Ur Transition Epith Cell (0-5/HPF) Amorphous Sediment Urine Bacteria (None) Ur Culture Indicated? SARS-CoV-2 (PCR) Negative (Negative) Influenza A (RT-PCR) Flu a negative (NEGATIVE) Influenza B (RT-PCR) Flu b negative (NEGATIVE) RSV (PCR) Negative (Negative) 09/13/22 09/13/22 09/13/22 Range/Units 14:45 16:00 17:00 WBC (4.5-11.0) X10^3/uL RBC (4.5-5.9) X10^6/uL Hgb (13.5-17.5) g/dL Hct (41-53) % MCV (80-100) fL MCH (26-34) PG MCHC (30-36) % RDW (11.6-14.8) % Plt Count (150-400) X10^3/uL Neut % (Auto) (50-75) % Lymph % (Auto) (25-40) % Door % (Auto) (3-14) % Eos % (Auto) (2-4) % Baso % (Auto) (0-2) % Neut # (Auto) (3349-1339) /uL Lymph # (Auto) (0781-5821) /uL Door # (Auto) (0-900) /uL Eos # (Auto) (0-450) /uL Baso # (Auto) (0-100) /uL PT (10.1-12.7) SECONDS INR (0.9-1.3) Sodium 141 (137-145) mmol/L Potassium 3.9 (3.4-5.1) mmol/L Chloride 106 (98-107) mmol/L Carbon Dioxide 21 L (22-32) mmol/L BUN 22 H (9-20) mg/dL Creatinine 0.65 L (0.66-1.25) mg/dL Estimated GFR > 60 (>60) mL/min BUN/Creatinine Ratio 33.8 H (6-22) Glucose 192 H (80-110) mg/dL Calcium 9.4 (8.4-10.2) mg/dL Total Bilirubin 1.0 (0.2-1.3) mg/dL AST 128 H (17-59) IU/L ALT 183 H (<50) IU/L Alkaline Phosphatase 133 H (38-126) U/L Total Creatine Kinase 73 (55-170) U/L CK-MB (CK-2) TNP CK-MB (CK-2) Rel Index TNP Troponin I 0.053 H 0.097 H (0.01-0.034) ng/mL Total Protein 8.3 H (6.3-8.2) g/dL Albumin 4.2 (3.5-5.0) g/dL Globulin 4.1 (1.7-4.1) g/dL Albumin/Globulin Ratio 1.0 (1.0-2.8) Lipase 102 (23-300) U/L Urine RBC 0-1/hpf D (0-5/HPF) Urine WBC None seen (0-5/HPF) Ur Transition Epith Cell 0-1/hpf (0-5/HPF) Amorphous Sediment 2+ Urine Bacteria None seen (None) Ur Culture Indicated? Cult not indicated SARS-CoV-2 (PCR) (Negative) Influenza A (RT-PCR) (NEGATIVE) Influenza B (RT-PCR) (NEGATIVE) RSV (PCR) (Negative) Urine Dip Bedside Urine Glucose 100 mg/dl Bedside Urine Bilirubin - Negative Bedside Urine Ketone - Negative Urine Specific [place] 1.030 Bedside Urine Occult Blood - Negative Bedside Urine pH 6.0 Bedside Urine Protein + 30 Bedside Urine Urobilinogen - Negative Bedside Urine Nitrite - Negative Bedside Urine Leukocytes - Negative Esterase Imaging Data CT scan - abdomen/pelvis: Radiologist's Impression: [address] [id number] [address] Scan Report Signed Patient: Brennan Marmolejo Jr MR#: [id number] : 1955 Acct:[id number] Age/Sex: 67 / M Date of Service: 09/13/22 Loc: ED Accession Number: [id number] ?? Procedure: CT abdomen pelvis w con Ordering Provider: Florencio Jenkins MD PROCEDURE:? CT ABDOMEN PELVIS W CON ? INDICATIONS:? IV contrast only/abdominal pain/vomiting ? TECHNIQUE:? After the administration of oral and IV contrast, axial sections were acquired from the lung bases to the pubic symphysis.? Coronal and sagittal reformats were performed.? For radiation dose reduction, the following was used:? automated exposure control, adjustment of mA and/or kV according to patient size. ? COMPARISON:? [facility], CT, CT ANGIO CHEST ABDOMEN PELVIS, 08/06/2022, 12:05.? [facility], CT, CT ABDOMEN PELVIS W CON, 07/12/2022, 3:53.? [facility], CT, CT ABDOMEN PELVIS WITH CONTRAST, 08/06/2022, 10:39. ? FINDINGS:? Image quality:? Excellent.? ? Lung bases:? Unremarkable.? ? Heart:? No significant findings. ? ? ABDOMEN: Liver:? Dense calcification can be seen at the right liver dome, as on series 3, image 29. The liver is normal in size and demonstrates no suspicious lesions.? Gallbladder:? Unremarkable.? ? Biliary ducts:? Unremarkable.? ? Pancreas:? Unremarkable.? ? Spleen:? Unremarkable.? ? Adrenal Glands:? Unremarkable.? ? Kidneys and Ureters:? Along the lateral aspect of the right kidney, there is a 1 cm nonenhancing water density cyst seen.? The kidneys enhance symmetrically.? There is no hydronephrosis. ? Stomach and Bowel:? Stomach, small bowel loops, and colon are unremarkable.? Mild distal colonic diverticulosis is seen, without findings of active diverticulitis. Peritoneum:? No abnormal intraperitoneal fluid.? No free air.? ? Ventral Wall: ? No hernia.? Abdominal Nodes:? No retroperitoneal or mesenteric adenopathy by size criteria.? Vessels:? Aorta and inferior vena cava are normal in size.? ? PELVIS: Pelvic Organs:? Prostatectomy change can be seen. Bladder:? Unremarkable.? ? Pelvic Nodes: No enlarged lymph nodes.? Miscellaneous:? A fat containing left inguinal hernia can be seen. ? Bones:? Focal lower lumbar spine degenerative changes are seen.? Milder degenerative changes are seen elsewhere.? Sclerotic foci can be seen, including within the L2 vertebral body and right S1 level.? There are subtle areas of lucency seen within the bones of the pelvis.? Mild levoconvex scoliotic curvature is noted.? ? ? IMPRESSION:? ? No significant bowel abnormality is seen. ? No significant ascites. ? Stable of lytic and blastic lesions can be seen within the bones.? Please correlate with known patient history.? Differential diagnosis includes metastatic disease.? Additional findings: Benign appearing right liver dome calcification. Right renal cyst Diverticulosis, without active diverticulitis Prostatectomy Fat containing left inguinal hernia? ? Dictated by: Adrian Segovia M.D. on 09/13/2022 at 17:29 ? ? Approved by: Adrian Segovia M.D. on 09/13/2022 at 17:34 ? ECG Data Interpretation: Normal sinus rhythm rate [address] elevation or depression MDM Narrative Medical decision making narrative: Patient here with spouse, brought in by ambulance from home. Has history of prostatic cancer/coronary disease/paroxysmal atrial fibrillation/diabetes, is anticoagulated. Primary care is Dr. Khang Vasques, oncologist Dr. Brantley. Patient denies denies any chest pain. Does not feel the same symptoms he did with a non-STEMI back in July of last year and had 3 stents. He did not have chest pain at that time either. Patient and state this is typical today of his over indulgence in food which causes nausea and vomiting which causes him not to be take his home pain medication and cause body wide pain. Patient admits overdosing on lobster bisque last Tuesday and has had abdominal pain and vomiting since then. EKG at this time is sinus rhythm no ST elevation. Second troponin is pending. Patient is feeling better. Nausea much better. Pain has improved. Patient was given Dilaudid. CT imaging is pending. Based on patient's symptoms and presentation. . Blood pressure likely because he is not been take his home medications and his pain is out of control at this time. I will order CBC CMP lipase EKG heart enzymes/troponin as well as CT imaging of the abdomen pelvis. At this time, troponin is noted and repeat is ordered. Patient and state this is typical of his over indulgence in food 7:04 p.m.. I have reviewed results of blood work and repeat troponin and EKG. I spoke with cardiology Dr. Erwin recommends patient to be admitted observed overnight serial cardiac enzymes and echocardiogram the morning, no stress test indicated. Blood pressure has improved 120/73. Nausea is resolved. I did review with patient and and they do agree for admit. Appropriate for admission for serial enzymes and echocardiogram the morning. 7:20 p.m.. Spoke with primary care on-call, Dr. Odin Ochoa MD will admit patient. Appropriate for admission. Patient would be best observed overnight given recent non-STEMI 2 months ago and does have slightly bumped in troponins that are trending upwards. I did review with patient as well as superior court judge and primary care and all agree for admit. Currently chest pain-free. Feeling much better with improved blood pressure. Discharge Plan Departure Patient Disposition: Admitted as Observation Clinical Impression: Elevated troponin Admit Date/Time: 09/13/22 20:18 Admit Provider: Odin Ochoa
--- NOTE | 2022-09-13 16:59 | DI.CT.S_ITS ---
PROCEDURE: CT ABDOMEN PELVIS W CON INDICATIONS: IV contrast only/abdominal pain/vomiting TECHNIQUE: After the administration of oral and IV contrast, axial sections were acquired from the lung bases to the pubic symphysis. Coronal and sagittal reformats were performed. For radiation dose reduction, the following was used: automated exposure control, adjustment of mA and/or kV according to patient size. COMPARISON: [facility], CT, CT ANGIO CHEST ABDOMEN PELVIS, 08/06/2022, 12:05. [facility], CT, CT ABDOMEN PELVIS W CON, 07/12/2022, 3:53. [facility], CT, CT ABDOMEN PELVIS WITH CONTRAST, 08/06/2022, 10:39. FINDINGS: Image quality: Excellent. Lung bases: Unremarkable. Heart: No significant findings. ABDOMEN: Liver: Dense calcification can be seen at the right liver dome, as on series 3, image 29. The liver is normal in size and demonstrates no suspicious lesions. Gallbladder: Unremarkable. Biliary ducts: Unremarkable. Pancreas: Unremarkable. Spleen: Unremarkable. Adrenal Glands: Unremarkable. Kidneys and Ureters: Along the lateral aspect of the right kidney, there is a 1 cm nonenhancing water density cyst seen. The kidneys enhance symmetrically. There is no hydronephrosis. Stomach and Bowel: Stomach, small bowel loops, and colon are unremarkable. Mild distal colonic diverticulosis is seen, without findings of active diverticulitis. Peritoneum: No abnormal intraperitoneal fluid. No free air. Ventral Wall: No hernia. Abdominal Nodes: No retroperitoneal or mesenteric adenopathy by size criteria. Vessels: Aorta and inferior vena cava are normal in size. PELVIS: Pelvic Organs: Prostatectomy change can be seen. Bladder: Unremarkable. Pelvic Nodes: No enlarged lymph nodes. Miscellaneous: A fat containing left inguinal hernia can be seen. Bones: Focal lower lumbar spine degenerative changes are seen. Milder degenerative changes are seen elsewhere. Sclerotic foci can be seen, including within the L2 vertebral body and right S1 level. There are subtle areas of lucency seen within the bones of the pelvis. Mild levoconvex scoliotic curvature is noted. IMPRESSION: No significant bowel abnormality is seen. No significant ascites. Stable of lytic and blastic lesions can be seen within the bones. Please correlate with known patient history. Differential diagnosis includes metastatic disease. Additional findings: Benign appearing right liver dome calcification. Right renal cyst Diverticulosis, without active diverticulitis Prostatectomy Fat containing left inguinal hernia Dictated by: Adrian Segovia M.D. on 09/13/2022 at 17:29 Approved by: Adrian Segovia M.D. on 09/13/2022 at 17:34
[2022-09-13 17:41] LABS: Troponin I 0.097 ng/mL (0.01-0.034)
[2022-09-13] MEDS: APIXABAN 5 MG TABLET 2.5 MG PO (20:31)
[2022-09-13] MEDS: PANTOPRAZOLE DR 20 MG TABLET 40 MG PO (20:31)
[2022-09-13] MEDS: ATORVASTATIN 20 MG TABLET 80 MG PO (20:31)
[2022-09-13] MEDS: METFORMIN HCL 500 MG TABLET PO (20:33)
[2022-09-13] MEDS: cloNIDine 0.1 MG TABLET PO (20:34)
[2022-09-13] MEDS: METOPROLOL ER 50 MG TABLET 100 MG PO (20:34)
[2022-09-13] MEDS: OXYCODONE IR 10 MG TABLET PO (22:04)
[2022-09-13 23:15] LABS: Creatine Kinase 56 U/L (55-170)
[2022-09-13 23:27] LABS: Troponin I 0.086 ng/mL (0.01-0.034)
[2022-09-14] VITALS: BP 113/75; PULSE 56; RESP 12; TEMP 36.3; O2SAT 96
[2022-09-14] MEDS: OXYCODONE IR 5 MG TABLET PO ×2 (02:33→11:36)
[2022-09-14] MEDS: ONDANSETRON 4 MG/2 ML INJ IV (02:33)
[2022-09-14 04:31] LABS: Creatine Kinase 46 U/L (55-170)
[2022-09-14 04:44] LABS: Troponin I 0.052 ng/mL (0.01-0.034)
[2022-09-14 04:58] VITALS: BP 136/79; PULSE 56; RESP 13; O2SAT 99
--- NOTE | 2022-09-14 07:16 | P.HP_ITS ---
History of Present Illness History of Present Illness Date Patient Seen: 09/14/22 Time Patient Seen: 07:16 Chief complaint: Prostate CA/Htn, Vomiting Narrative: 67-year-old male very well known to me who was admitted by the emergency department with recurrent nausea vomiting as well as significant hypertension. Patient has had multiple admissions to the hospital for the same constellation of issues. No clear etiology for his GI symptoms is ever been elucidated beyond the possibility of a cannabis related hyperemesis issue. He has been seen by Gastroenterology etcetera. He does intermittently demonstrate evidence of colonic inflammation on CT imaging has had colonoscopy including biopsies that have failed to demonstrate any abnormality in these areas over time Apparently was doing well until the holiday weekend when he overindulged in food of some sort which per patient often times does result in increasing symptoms. He was able to get most of his medications down over the 24-48 hours prior to admission. However he persisted with nausea vomiting and blood pressure was in the 200/100 range which is his usual constellation of symptoms and he eventually summoned EMS and was transported to [facility] In the ER he was found to have a borderline elevated troponin. Does have a history of recent cardiac issues including stent placement in July of 2022 for which he was minimally symptomatic as well. He presented mostly with GI sym ptoms at that time as well, however his troponin at that time was clearly abnormal which is not true with this admission thus far. Telephone consultation was held with Cardiology via the emergency department and was elected to admit him for trending troponins consideration of echocardiography stress testing etcetera Patient History Medical History Cannabis abuse Chronic hepatitis Coronary artery disease involving [place] coronary artery of [place] heart without angina pectoris (~2006) Diverticulosis of large intestine (03/31/12) Essential hypertension Generalized anxiety disorder Hematuria Kidney stones Mixed hyperlipidemia Paroxysmal A-fib Prostate cancer (~05/2019) Uncomplicated opioid dependence Surgical History H/O heart artery stent (~2006) History of angioplasty (~12/2006) Hx of inguinal hernia surgery (~09/20/08) Hx of inguinal hernia surgery (~03/07/14) Status post laminectomy Family & Social History Social History: household members spouse,friend(s) lives independently Yes caregiver/support person No Safety & Behavioral: Feels Safe in Current Yes Environment Been Physically Hurt or No Threatened By a Person Tobacco & Substance use: Smoking Status Never smoker alcohol intake former alcohol intake frequency 0-2 drinks per day Substance Use Type marijuana Meds Home Medications and Allergies Home Medications Medication Instructions Recorded Confirmed Type promethazine 25 mg rectal 25 mg NV Q4-6H PRN nausea and 11/18/20 09/10/22 Rx suppository vomiting #12 ea clonidine HCl 0.1 mg tablet 0.1 mg PO BID #360 tabs 08/18/21 09/10/22 Rx tamsulosin 0.4 mg capsule 0.4 mg PO DAILY 09/15/21 09/10/22 History duloxetine 20 mg capsule,delayed 20 mg PO DAILY #90 caps 09/22/21 09/10/22 Rx release (Cymbalta) apixaban 2.5 mg tablet (Eliquis) 2.5 mg PO BID #180 tabs 09/29/21 09/10/22 Rx potassium chloride 10 mEq 10 meq PO DAILY #90 tabs 09/29/21 09/10/22 Rx tablet,extended release atorvastatin 80 mg tablet 80 mg PO BEDTIME 07/30/22 09/10/22 History clopidogrel 75 mg tablet 75 mg PO DAILY 07/30/22 09/10/22 History hydrocortisone 2.5 % topical cream 1 applic topical DAILY 07/30/22 09/10/22 History lisinopril 20 mg tablet 20 mg PO BID 08/16/22 09/10/22 History metoprolol succinate 50 mg See Rx Instructions .Route 08/16/22 09/10/22 Rx tablet,extended release 24 hr .COMPLEX #270 tabs metformin 500 mg tablet 500 mg PO BID #180 tabs 08/19/22 09/10/22 Rx omeprazole 40 mg capsule,delayed 40 mg PO BID #180 caps 09/07/22 09/10/22 Rx release Allergies Allergy/AdvReac Type Severity Reaction Status Date / Time No Known Drug Allergies Allergy Verified 09/10/22 09:24 Review of Systems Review of Systems ROS: Yes All systems reviewed with the patient and are negative except as otherwise documented Exam Vital Signs (past 8 hours): - 09/14/22 00:00 09/14/22 04:58 Temperature 97.3 F L Pulse Rate 56 L 56 L Respiratory Rate 12 13 Blood Pressure 113/75 136/79 Pulse Oximetry 96 99 Oxygen Flow Rate 0 Oxygen Delivery Method Room Air Oxygen Flow Rate 0 Narrative Exam Narrative: HEENT-unremarkable, normocephalic atraumatic Neck-no lymphadenopathy no bruits Lungs-clear anteriorly and posteriorly no wheezes no crackles good breath sounds Heart-regular rate and rhythm, no murmur, rub, or gallop. normal S1-S2 Abdomen-positive bowel tones, soft, nontender, nondistended, no he patosplenomegaly, no masses palpable Neuro-normal to screening exam, gait not tested Extremities-no cyanosis clubbing or edema Objective Labs Result Diagrams: 09/13/22 14:45 09/13/22 14:45 Labs: Laboratory Results - last 24 hr 09/13/22 09/13/22 09/13/22 14:23 14:45 14:45 WBC 7.5 RBC 4.29 L Hgb 13.7 Hct 39.4 L MCV 91.9 MCH 32.0 MCHC 34.8 RDW 13.2 Plt Count 180 Neut % (Auto) 80.0 H Lymph % (Auto) 11.6 L [place] % (Auto) 7.6 Eos % (Auto) 0.1 L Baso % (Auto) 0.7 Neut # (Auto) 6000 Lymph # (Auto) 900 L [place] # (Auto) 600 Eos # (Auto) 0 Baso # (Auto) 100 PT 14.9 H INR 1.3 Sodium Potassium Chloride Carbon Dioxide BUN Creatinine Estimated GFR BUN/Creatinine Ratio Glucose Calcium Total Bilirubin AST ALT Alkaline Phosphatase Total Creatine Kinase CK-MB (CK-2) CK-MB (CK-2) Rel Index Troponin I Total Protein Albumin Globulin Albumin/Globulin Ratio Lipase Urine RBC Urine WBC Ur Transition Epith Cell Amorphous Sediment Urine Bacteria Ur Culture Indicated? SARS-CoV-2 (PCR) Negative Influenza A (RT-PCR) Flu a negative Influenza B (RT-PCR) Flu b negative RSV (PCR) Negative 09/13/22 09/13/22 09/13/22 14:45 16:00 17:00 WBC RBC Hgb Hct MCV MCH MCHC RDW Plt Count Neut % (Auto) Lymph % (Auto) [place] % (Auto) Eos % (Auto) Baso % (Auto) Neut # (Auto) Lymph # (Auto) [place] # (Auto) Eos # (Auto) Baso # (Auto) PT INR Sodium 141 Potassium 3.9 Chloride 106 Carbon Dioxide 21 L BUN 22 H Creatinine 0.65 L Estimated GFR > 60 BUN/Creatinine Ratio 33.8 H Glucose 192 H Calcium 9.4 Total Bilirubin 1.0 AST 128 H ALT 183 H Alkaline Phosphatase 133 H Total Creatine Kinase 73 CK-MB (CK-2) TNP CK-MB (CK-2) Rel Index TNP Troponin I 0.053 H 0.097 H Total Protein 8.3 H Albumin 4.2 Globulin 4.1 Albumin/Globulin Ratio 1.0 Lipase 102 Urine RBC 0-1/hpf D Urine WBC None seen Ur Transition Epith Cell 0-1/hpf Amorphous Sediment 2+ Urine Bacteria None seen Ur Culture Indicated? Cult not indicated SARS-CoV-2 (PCR) Influenza A (RT-PCR) Influenza B (RT-PCR) RSV (PCR) 09/13/22 09/14/22 21:43 04:01 WBC RBC Hgb Hct MCV MCH MCHC RDW Plt Count Neut % (Auto) Lymph % (Auto) [place] % (Auto) Eos % (Auto) Baso % (Auto) Neut # (Auto) Lymph # (Auto) [place] # (Auto) Eos # (Auto) Baso # (Auto) PT INR Sodium Potassium Chloride Carbon Dioxide BUN Creatinine Estimated GFR BUN/Creatinine Ratio Glucose Calcium Total Bilirubin AST ALT Alkaline Phosphatase Total Creatine Kinase 56 46 L CK-MB (CK-2) TNP TNP CK-MB (CK-2) Rel Index TNP TNP Troponin I 0.086 H 0.052 H Total Protein Albumin Globulin Albumin/Globulin Ratio Lipase Urine RBC Urine WBC Ur Transition Epith Cell Amorphous Sediment Urine Bacteria Ur Culture Indicated? SARS-CoV-2 (PCR) Influenza A (RT-PCR) Influenza B (RT-PCR) RSV (PCR) Assessment & Plan Assessment & Plan narrative: 1. GI symptoms-at this point does not seem like this is a cardiac source of his GI symptoms. This seems more like a recurrent purely GI issue which he is had multiple times in the past. He generally in that setting treating him with antiemetics IV fluids and rest is helpful and eventually he improves and is able to go home. Part of the confusing picture with this of course is that he is quite hypertensive often times with his GI presentation etcetera. He can also go from being quite hypertensive to quite hypotensive for reasons that are not clear. I think he is okay to try re feeding this morning and will see how that goes. If he does well that he can probably be discharged home 2. Cardiac-patient quite hypertensive although much better after appropriate medication administered this morning. Troponin trending down now never did reach truly abnormal level was more indeterminate throughout. Do not believe t his is recurrent cardiac issue and do not believe patient needs additional cardiac evaluation at this time (including echocardiography and or stress testing). Patient should continue all of his usual medications including his dual anti-platelet therapy and his chronic anticoagulation for his atrial fibrillation and stroke risk reduction, as per Cardiology. Patient's presentation in the past with his GI issues has consistently shown significant hypertension as well and it is never exactly clear whether the hypertension causes the GI symptoms or whether the GI symptoms result in the hypertension although the latter seems more likely. This point he is much improved and again troponin trending down no additional symptoms. 3. Prostate cancer-patient metastatic prostate cancer on anti hormonal therapy for which generally produces great deal of side effects in this particular individual. He is having fewer side effects currently than he has had other times but still fairly miserable from the hormone withdrawal effects etcetera 4. Diabetes-patient should be on a carbohydrate consistent diet with insulin coverage as necessary as well as his usual medications 5. Chronic hepatitis-patient with known chronic hepatitis C. Transaminases have consistently been far more elevated than would be expected in this situation but they been stable for this patient. No active issues identified around this at this time 6. VTE prophylaxis-patient is chronically fully anticoagulated because of his atrial fibrillation does not require additional prophylaxis 7. Code status-patient has previously been very clear that he would not want to be resuscitated in the event of a sudden cardiac or respiratory arrest is fairly miserable with his ongoing quality of life in fact was on hospice for awhile with prostate cancer although he did reverse that. Therefore he is made a no code for the purposes this hospitalization COVID-19 COVID-19 status: Negative Result date/Date tested (Pos, Neg/Pending): 09/13/22
[2022-09-14] MEDS: POTASSIUM CHLORIDE 10 MEQ TAB PO (08:23)
[2022-09-14] MEDS: METFORMIN HCL 500 MG TABLET PO (08:23)
[2022-09-14] MEDS: PANTOPRAZOLE DR 40 MG TABLET PO (08:25)
[2022-09-14] MEDS: CLOPIDOGREL 75 MG TABLET PO (08:25)
[2022-09-14] MEDS: OXYCODONE IR 10 MG TABLET PO ×2 (08:25→14:54)
[2022-09-14] MEDS: TAMSULOSIN 0.4 MG CAPSULE PO (08:25)
[2022-09-14] MEDS: DULOXETINE 20 MG CAPSULE PO (08:25)
[2022-09-14] MEDS: APIXABAN 5 MG TABLET 2.5 MG PO (08:25)
[2022-09-14 08:32] VITALS: BP 134/74
[2022-09-14] MEDS: cloNIDine 0.1 MG TABLET PO (08:32)
[2022-09-14 08:33] VITALS: BP 134/74; PULSE 55
[2022-09-14] MEDS: lisinopriL 20 MG TABLET PO (08:33)
[2022-09-14 08:34] VITALS: BP 134/74; PULSE 52; RESP 17; TEMP 35.7; O2SAT 98
[2022-09-14] MEDS: ACETAMINOPHEN 325 MG TABLET 650 MG PO (11:36)
[2022-09-14 12:00] VITALS: BP 134/80; PULSE 54; RESP 17; TEMP 35.8; O2SAT 99
[2022-09-14] MEDS: INSULIN LISPRO 100 UNIT/ML 3ML VIAL SUBCUT (12:26)
--- NOTE | 2022-09-14 14:43 | CM.DANOTE ---
DCP: Case received EMR reviewed, this mail messenger contractor introduced self to patient was able to obtain information regarding pt's baseline activity level prior to hospitalization, as well as current living situation. DCP's assessment completed with information currently available. Pt came in via ambulance on 09/13/2022 to the care of the hospitalist team. PCP- Dr. Caprice Bahena- [employer] Pt came to the hospital secondary to having nausea and emesis as well as elevated troponins. Pt has history of Cardiac stents, as well as hx of prostate cancer. He is currently under care of oncology at [facility]. Pt is here for echo and stress test. Met with pt in his room. He was sitting up in his bed . He confirmed that he resides in [place], lives alone and has a caregiver friend that comes in to support him with ADL's, meal preparation, transportation, shopping and bathing 3 x per week, pt reports that he does not drive. He reports that he uses a FWW and cane at home and also has a w/c available. P: Pt has discharge orders for home today. Caregiver friend should be able to pick pt up. Marla Diaz RN Case Manager Discharge Planning/Care Management CM Discharge Assessment Start: 09/14/22 14:35 Freq: Status: Active Protocol: Document 09/14/22 14:36 DARRYL (Rec: 09/14/22 14:43 [email or web address] [id number]) Discharge Planning Assessment Assigned Director Of Field Sales Marla Diaz RN Case Manager Advance Directives? Yes: POLST Advance Directives on File No History Provided By Patient,Medical Record Prior Living Arrangements House Household Members friend(s),other Comment Pt has a friend/caregiver named Lisandra that supports him in his home with shopping etc. 3xwk Type of transporation used prior to Relies on Others admit Independent with ADL's Yes Is patient alert and oriented? Yes Needs Assistance With Bathing,Meal Prep,Home Chores / Shopping Caregiver for Another No DME Already Rented / Owned Wheelchair,FWW / Walker,Cane Patient/Family Preference OP PT Therapy Comment Pt indicated that he is getting outpatient pt. Barriers to Discharge No Comment Patient has good friend support. Discharge Plan Home Transportation Arrangement Patient reports that Lisandra can pick him up at time of d/c . Referrals Initiated None needed If patient plan is home with home health No : Has signed face to face form been completed? Whiteboard Updated in Patient Room with Yes name and ext. # of Director Of Field Sales Review Status In Process Next Review Type Continued Stay Review
== END 2022-09-14 15:02 | disposition home or self-care (01) ==
LOC: ED 19:06 → AC 19:22
PROVIDERS: Admitting Provider Family Medicine; Emergency Provider Emergency Medicine; PCP Internal Medicine; Referring Provider Emergency Medicine; Visit Provider Internal Medicine
DX: R11.2 Nausea with vomiting, unspecified (principal); R19.7 Diarrhea, unspecified; I10 Essential (primary) hypertension; R77.8 Other specified abnormalities of plasma proteins; C61 Malignant neoplasm of prostate; E11.9 Type 2 diabetes mellitus without complications; B18.2 Chronic viral hepatitis C; I25.2 Old myocardial infarction; I48.0 Paroxysmal atrial fibrillation; Z79.01 Long term (current) use of anticoagulants; Z20.822 Contact with and (suspected) exposure to COVID-19
CPT/HCPCS: 0241U; 36415; 74177; 80053; 81003; 81015; 82550; 82553; 82962; 83690; 84484; 85025; 85610; 93005; 96361; 96372; 96374; 96375; 96376; 99219; 99222; 99284; G0378; J1170; J2405; Q9967

== ENCOUNTER → 2022-12-24 08:18 | Outpatient (CLI) | payer OTHER, SELFPAY ==
[2022-09-13 21:25] VITALS: BMI 22.2
[2022-12-24 09:28] LABS: Alanine Aminotransferase 131 IU/L (<50); Albumin 3.6 g/dL (3.5-5.0); Albumin Globulin Ratio 1.1 (1.0-2.8); Alkaline Phosphatase 133 U/L (38-126); Aspartate Aminotransferase 106 IU/L (17-59); BUN Creatinine Ratio 24.2 (6-22); Bilirubin Total 0.4 mg/dL (0.2-1.3); Blood Urea Nitrogen 15 mg/dL (9-20); Calcium 9.1 mg/dL (8.4-10.2); Carbon Dioxide 28 mmol/L (22-32); Chloride 105 mmol/L (98-107); Estimated Glomerular Filt Rate > 60 mL/min (>60); Globulin 3.2 g/dL (1.7-4.1); Glucose 168 mg/dL (80-110); HEMOLYSIS < 15 (0-50); Potassium 4.2 mmol/L (3.4-5.1); Sodium 138 mmol/L (137-145); Total Protein 6.8 g/dL (6.3-8.2)
[2022-12-25 06:08] LABS: x Labcorp Estim. Avg Glu (eAG) 137 mg/dL (.); x Labcorp Hemoglobin A1c 6.4 % (4.8-5.6)
== END ==
PROVIDERS: PCP Internal Medicine; Referring Provider Internal Medicine; Visit Provider Internal Medicine
DX: E78.2 Mixed hyperlipidemia (principal); I10 Essential (primary) hypertension; E11.9 Type 2 diabetes mellitus without complications
CPT/HCPCS: 36415; 80053; 83036

== ENCOUNTER → 2023-06-28 07:53 | Outpatient (CLI) | payer OTHER, SELFPAY ==
[2022-09-13 21:25] VITALS: BMI 22.2
[2023-06-28 08:49] LABS: Hemoglobin A1C% w Est Avg Glu 6.3 % (4.0-6.0)
[2023-06-28 09:00] LABS: Alanine Aminotransferase 125 IU/L (<50); Albumin 4.2 g/dL (3.5-5.0); Albumin Globulin Ratio 1.1 (1.0-2.8); Alkaline Phosphatase 127 U/L (38-126); Aspartate Aminotransferase 127 IU/L (17-59); BUN Creatinine Ratio 33.3 (6-22); Bilirubin Total 0.8 mg/dL (0.2-1.3); Bilirubin Unconjugated 0.6 mg/dL (0.0-1.1); Blood Urea Nitrogen 22 mg/dL (9-20); Calcium 9.8 mg/dL (8.4-10.2); Carbon Dioxide 25 mmol/L (22-32); Chloride 102 mmol/L (98-107); Cholesterol 115 mg/dL (140-199); Estimated Glomerular Filt Rate > 60 mL/min (>60); Globulin 3.7 g/dL (1.7-4.1); Glucose 139 mg/dL (80-110); HDL Cholesterol 41 mg/dL (40-60); HEMOLYSIS 26 (0-50); LDL Cholesterol Calculated 53 mg/dL (<100); Potassium 4.4 mmol/L (3.4-5.1); Sodium 139 mmol/L (137-145); Total Protein 7.9 g/dL (6.3-8.2); Triglycerides 104 mg/dL (35-150)
== END ==
PROVIDERS: PCP Internal Medicine; Referring Provider Internal Medicine; Visit Provider Internal Medicine
DX: E11.9 Type 2 diabetes mellitus without complications (principal); I10 Essential (primary) hypertension; E78.2 Mixed hyperlipidemia; K73.9 Chronic hepatitis, unspecified
CPT/HCPCS: 36415; 80048; 80061; 80076; 83036

== ENCOUNTER → 2023-09-30 10:05 | Outpatient (CLI) | payer OTHER, SELFPAY ==
[2022-09-13 21:25] VITALS: BMI 22.2
[2023-09-30 10:46] LABS: Hemoglobin A1C% w Est Avg Glu 6.7 % (4.0-6.0)
[2023-09-30 10:56] LABS: Alanine Aminotransferase 139 IU/L (<50); Albumin 4.3 g/dL (3.5-5.0); Albumin Globulin Ratio 1.1 (1.0-2.8); Alkaline Phosphatase 108 U/L (38-126); Aspartate Aminotransferase 136 IU/L (17-59); BUN Creatinine Ratio 29.7 (6-22); Blood Urea Nitrogen 22 mg/dL (9-20); Calcium 9.9 mg/dL (8.4-10.2); Carbon Dioxide 27 mmol/L (22-32); Chloride 101 mmol/L (98-107); Estimated Glomerular Filt Rate > 60 mL/min (>60); Globulin 3.9 g/dL (1.7-4.1); Glucose 248 mg/dL (80-110); HEMOLYSIS < 15 (0-50); Potassium 4.5 mmol/L (3.4-5.1); Sodium 137 mmol/L (137-145); Total Protein 8.2 g/dL (6.3-8.2)
[2023-09-30 10:56] LABS: Creatinine Urine Random 195.1 mg/dL
[2023-09-30 11:00] LABS: Microalbumi Creatinin Ratio Ur 22.5 ug/mg CR (<30); Microalbumin Urine Random 4.4 mg/dL (0-1.6)
== END ==
LOC: LAB 10:07
PROVIDERS: PCP Internal Medicine; Referring Provider Internal Medicine; Visit Provider Internal Medicine
DX: E11.9 Type 2 diabetes mellitus without complications (principal); I10 Essential (primary) hypertension; E78.2 Mixed hyperlipidemia
CPT/HCPCS: 36415; 80053; 82043; 82570; 83036

== ENCOUNTER 2023-11-10 14:49 | Inpatient (IN) | payer OTHER, SELFPAY ==
[2022-09-13 21:25] VITALS: BMI 22.2
[2023-11-10] VITALS (17 sets, daily range): BP systolic 106–219; BP diastolic 79–114; PULSE 52–88; RESP 16–18; TEMP 36.1–36.6; O2SAT 97–100; BMI 20.3
[2023-11-10] MEDS: ONDANSETRON 4 MG/2 ML INJ IV (15:49)
[2023-11-10 15:51] LABS: Add Manual Diff / Slide Review NO; Basophils Absolute Auto 0 /uL (0-100); Basophils Percent Auto 0.4 % (0-2); Eosinophils Absolute Auto 0 /uL (0-450); Hematocrit 40.7 % (41-53); Lymphocytes Absolute Auto 800 /uL (1100-4500); Lymphocytes Percent Auto 10.8 % (25-40); Mean Corpuscular HGB Conc 34.3 % (30-36); Mean Corpuscular Hemoglobin 30.7 PG (26-34); Mean Corpuscular Volume 89.4 fL (80-100); Monocytes Absolute Auto 300 /uL (0-900); Monocytes Percent Auto 4.4 % (3-14); Neutrophils Absolute Auto 6100 /uL (1500-7000); Neutrophils Percent Auto 84.4 % (50-75); Platelet Count 164 X10^3/uL (150-400); Red Blood Cell Count 4.55 X10^6/uL (4.5-5.9); Red Cell Distribution Width 13.8 % (11.6-14.8); White Blood Cell Count 7.2 X10^3/uL (4.5-11.0)
[2023-11-10 15:58] LABS: INR 1.2 (0.9-1.3); Prothrombin Time 13.8 SECONDS (9.4-12.5)
[2023-11-10 16:04] LABS: Alanine Aminotransferase 145 IU/L (<50); Albumin 4.9 g/dL (3.5-5.0); Albumin Globulin Ratio 1.1 (1.0-2.8); Alkaline Phosphatase 124 U/L (38-126); Aspartate Aminotransferase 138 IU/L (17-59); BUN Creatinine Ratio 23.3 (6-22); Bilirubin Total 1.4 mg/dL (0.2-1.3); Blood Urea Nitrogen 17 mg/dL (9-20); Calcium 9.9 mg/dL (8.4-10.2); Carbon Dioxide 23 mmol/L (22-32); Chloride 107 mmol/L (98-107); Estimated Glomerular Filt Rate > 60 mL/min (>60); Globulin 4.4 g/dL (1.7-4.1); Glucose 228 mg/dL (80-110); HEMOLYSIS < 15 (0-50); Lipase 31 U/L (23-300); Potassium 3.7 mmol/L (3.4-5.1); Sodium 143 mmol/L (137-145); Total Protein 9.3 g/dL (6.3-8.2)
--- NOTE | 2023-11-10 16:08 | DI.CT.S_ITS ---
PROCEDURE: CT ABDOMEN PELVIS W CON INDICATIONS: abdomial pain generalized TECHNIQUE: After the administration of intravenous contrast, axial sections acquired from the lung bases to the pubic symphysis. Coronal and sagittal reformats were performed. For radiation dose reduction, the following was used: automated exposure control, adjustment of mA and/or kV according to patient size. COMPARISON: [facility], CT, CT ABDOMEN PELVIS W CON, 09/13/2022, 17:03. FINDINGS: Image quality: Diagnostic. Lower Chest: No significant findings. ABDOMEN: Liver: Hepatic contour is nodular. No focal mass. Calcifications within the right hepatic lobe superiorly. Gallbladder: Moderately distended without evidence of acute inflammation. Biliary ducts: No biliary dilation. Pancreas: No ductal dilation. Spleen: Size is within normal limits. Adrenal Glands: No adrenal nodules. Kidneys and Ureters: No hydronephrosis. No solid mass. No complex renal cystic lesion which requires follow up. 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 Small hiatal hernia. Stomach is nondistended. Small bowel is nondistended. There is focal thickening of the mid colon within the left anterior pelvis (series 2, image 59). Peritoneum: No abnormal intraperitoneal fluid. No free air. Ventral Wall: No significant ventral hernia. Abdominal Nodes: No retroperitoneal or mesenteric adenopathy by size criteria. Vessels: Aorta and inferior vena cava are normal in size. The superior mesenteric artery and vein are rotated relative to each other. PELVIS: Pelvic Organs: Unremarkable. Bladder: No bladder wall thickening, accounting for underdistention. Pelvic Nodes: No enlarged lymph nodes. Miscellaneous: No inguinal hernias are seen. Bones: No aggressive osseous abnormality. IMPRESSION: 1. Colonic thickening, with differential considerations including ischemia, infection, and inflammation. Colonoscopy is recommended to exclude underlying neoplasm. 2. Bowel malrotation. 3. Appendix not seen. No evidence of appendicitis. 4. Small hiatal hernia. 5. Cirrhosis. Dictated by: Ollie Marrero M.D. on 11/10/2023 at 16:48 Approved by: Ollie Marrero M.D. on 11/10/2023 at 16:54
[2023-11-10] MEDS: LACTATED RINGERS 1,000 ML 1000 ML IV (16:17)
[2023-11-10] MEDS: HYDROMORPHONE 1 MG INJ IV ×2 (16:17→16:36)
--- NOTE | 2023-11-10 16:18 | ED_ITS ---
HPI - Abdominal Pain General Chief Complaint: Abdominal Pain Stated Complaint: UTI Time Seen by Provider: 11/10/23 15:44 Source: patient and family Mode of arrival: Wheelchair History of Present Illness HPI narrative: Brennan Marmolejo is a 68-year-old man who arrives by private vehicle accompanied by his complaining of generalized abdominal pain and dysuria. He has had this for 2 days. It is accompanied by nausea and vomiting. He is able to void spontaneously. His past medical history includes metastatic prostate cancer followed by oncology at [facility] with known metastatic disease to the cecum and spine, has a history of atrial fibrillation anticoagulated on Eliquis has a history of chronic pain on morphine and oxycodone. Other past medical history includes coronary artery disease type 2 diabetes hypertension hyperlipidemia. The patient says that he has been moving his bowels okay. He does not believe he has had an appendectomy previously. Has been nauseated and vomiting, does not think he has had any of his regular medications today and possibly yesterday. Has not been inability to keep anything down for 2 days. He has not noted any fevers. Contact his primary care who recommended he come to the emergency department. Related Data Home Medications Medication Instructions Recorded Confirmed tamsulosin 0.4 mg capsule 0.4 mg PO DAILY 09/15/21 10/04/23 atorvastatin 80 mg tablet 80 mg PO BEDTIME 07/30/22 10/04/23 hydrocortisone 2.5 % topical cream 1 applic topical DAILY 07/30/22 10/04/23 enzalutamide 40 mg tablet (Xtandi) 80 mg PO DAILY 04/05/23 10/04/23 gabapentin 300 mg capsule 300 mg PO BID 10/04/23 10/04/23 Previous Rx's Medication Instructions Recorded promethazine 25 mg rectal 25 mg SC Q4-6H PRN nausea and 11/18/20 suppository vomiting #12 ea cyclobenzaprine 5 mg tablet 5 mg PO TID PRN Spasms #60 tabs 10/04/22 morphine 20 mg/5 mL (4 mg/mL) oral See Rx Instructions .Route 11/05/22 solution .COMPLEX PRN severe pain #100 mL clopidogrel 75 mg tablet 75 mg PO DAILY #90 tabs 01/10/23 potassium chloride 10 mEq 10 meq PO DAILY #90 caps 03/22/23 capsule,extended release duloxetine 20 mg capsule,delayed 20 mg PO DAILY #90 caps 08/01/23 release (Cymbalta) lisinopril 20 mg tablet 20 mg PO BID #180 tabs 09/07/23 metformin 500 mg tablet 500 mg PO BID #180 tabs 09/26/23 omeprazole 40 mg capsule,delayed 40 mg PO BID #180 caps 09/26/23 release metoprolol succinate 100 mg 100 mg PO BID #180 tabs 09/27/23 tablet,extended release 24 hr apixaban 2.5 mg tablet (Eliquis) 2.5 mg PO BID #180 tabs 10/05/23 oxycodone 5 mg tablet 10 mg (2 x 5 mg) PO Q4H PRN pain 10/17/23 #360 tabs Allergies Allergy/AdvReac Type Severity Reaction Status Date / Time No Known Drug Allergies Allergy Verified 10/04/23 09:22 Patient History Medical History (Updated 11/10/23 @ 18:44 by Ryan Caceres MD) Hematuria Uncomplicated opioid dependence Generalized anxiety disorder Cannabis abuse Prostate cancer (~05/2019) Paroxysmal A-fib Transaminitis Kidney stones Diverticulosis of large intestine (03/31/12) Chronic hepatitis Coronary artery disease involving [place] coronary artery of [place] heart without angina pectoris (~2006) Essential hypertension Mixed hyperlipidemia Surgical History H/O heart artery stent (~2006) Hx of inguinal hernia surgery (~03/07/14) Hx of inguinal hernia surgery (~09/20/08) Status post laminectomy History of angioplasty (~12/2006) Social History marital status: unmarried,single number of children: 3 household members: friend(s) and other lives independently: Yes caregiver/support person: No housing: house pets and animals: No education level: high school occupational status: other 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/hoahaoism: None leisure activities: music, fishing and other Smoking Status: Never smoker Tobacco: How many years used: 56 Smokeless tobacco user: other quit status: has quit before second hand exposure: Yes (On farmland/Boat.) alcohol intake: former substance use type: does not use and marijuana eating out: rarely or never Type(s) of exercise: normal ROM and activity and additional Smoking Status: Never smoker alcohol intake frequency: 0-2 drinks per day Alcohol type: beer Substance Use Type: marijuana Exam Narrative Exam Narrative: Cachectic male who appears uncomfortable holding an emesis basin. Initial Vital Signs Initial Vital Signs: Vital Signs Temperature 96.9 F L 11/10/23 15:02 Pulse Rate 52 L 11/10/23 15:02 Respiratory Rate 16 11/10/23 15:02 Blood Pressure 217/105 H 11/10/23 15:02 Pulse Oximetry 99 11/10/23 15:02 Oxygen Delivery Method Room Air 11/10/23 15:02 HENMT HENIN Other: Normocephalic atraumatic dry oral mucosa Neck Other: Supple Resp Other: Tachypneic, normal breath sounds bilaterally Cardio Other: Regular rhythm rate no murmur rub or gallop GI Other: Bowel sounds are normal, abdomen is soft he has diffuse abdominal tenderness with voluntary guarding throughout Skin Other: Warm and dry Neuro Other: Alert without motor deficit Course Orders Ordered: ED Orders 11/10/23 15:27 EKG-12 Lead Stat 11/10/23 15:34 Urinalysis and Microscopic Stat 11/10/23 15:41 Complete Blood Count AUTO DIFF Stat Comprehensive Metabolic Panel Stat Lipase Stat Prothrombin Time INR Stat 11/10/23 16:08 CT abdomen pelvis w con Stat Sodium Chloride (Normal Saline 0.9%) 1,000 mls @ 1,000 mls/hr IV BOLUS ONE Stop: 11/10/23 19:04 Last Admin: 11/10/23 18:24 Dose: 1,000 mls/hr Documented By: SAMANTHA Ondansetron HCl (Ondansetron 4 Mg Odt) 4 mg PO NOW PRN PRN Reason: Nausea And Vomiting Ondansetron HCl (Ondansetron 4 Mg/2 Ml Inj) 4 mg IV NOW PRN PRN Reason: Nausea And Vomiting Last Admin: 11/10/23 15:49 Dose: 4 mg Documented By: SAMANTHA Discontinued Medications Hydromorphone HCl (Hydromorphone 1 Mg Inj) 1 mg IV NOW ONE Stop: 11/10/23 16:08 Last Admin: 11/10/23 16:17 Dose: 1 mg Documented By: ASMANTHA Hydromorphone HCl (Hydromorphone 1 Mg Inj) 1 mg IV NOW ONE Stop: 11/10/23 16:17 Last Admin: 11/10/23 16:36 Dose: 1 mg Documented By: SAMANTHA Lactated Ringer's (Lactated Ringers) 1,000 mls @ 1,000 mls/hr IV BOLUS ONE Stop: 11/10/23 17:06 Last Infusion: 11/10/23 18:04 Dose: Infused Documented By: Admin: 11/10/23 16:17 Dose: 1,000 mls/hr Documented By: SAMANTHA Lorazepam (Lorazepam 1 Mg Tablet) 1 mg PO NOW ONE Stop: 11/10/23 18:25 Last Admin: 11/10/23 18:40 Dose: Not Given Documented By: KB Consultations Consultation #1: Case is discussed with Dr. Vasques who accepts admission Vital Signs Vital signs: Vital Signs - 8 hr 11/10/23 15:02 11/10/23 15:43 11/10/23 15:44 Temperature 96.9 F L Pulse Rate 52 L 60 60 Respiratory Rate 16 Blood Pressure 217/105 H Pulse Oximetry 99 98 99 Oxygen Delivery Method Room Air Room Air 11/10/23 15:44 11/10/23 16:00 11/10/23 16:01 Temperature Pulse Rate 56 L Respiratory Rate Blood Pressure 206/108 H 219/110 H Pulse Oximetry 98 Oxygen Delivery Method 11/10/23 16:01 11/10/23 16:25 11/10/23 16:25 Temperature Pulse Rate 56 L 69 Respiratory Rate Blood Pressure 197/100 H Pulse Oximetry 99 100 Oxygen Delivery Method 11/10/23 16:30 11/10/23 16:30 11/10/23 17:00 Temperature Pulse Rate 68 76 Respiratory Rate Blood Pressure 195/114 H Pulse Oximetry 97 99 Oxygen Delivery Method 11/10/23 17:01 11/10/23 17:01 11/10/23 17:30 Temperature Pulse Rate 75 61 Respiratory Rate Blood Pressure 170/79 H Pulse Oximetry 99 99 Oxygen Delivery Method 11/10/23 17:30 11/10/23 18:00 11/10/23 18:01 Temperature Pulse Rate 64 70 Respiratory Rate Blood Pressure 185/90 H Pulse Oximetry 98 98 Oxygen Delivery Method Room Air 11/10/23 18:01 Temperature Pulse Rate Respiratory Rate Blood Pressure 155/91 H Pulse Oximetry Oxygen Delivery Method MDM - Abdominal Pain Lab Data Lab results narrative: CBC with diff shows normal white count, he has not thrombocytopenic, CMP glucose was 228 creatinine is normal at 0.73, mild transaminitis, minimal elevation of bilirubin at 1.4 Urine dip is positive for occult blood, negative for nitrites or leukocyte esterase 11/10/23 15:41 11/10/23 15:41 Labs: Lab Results 11/10/23 11/10/23 Range/Units 15:34 15:41 WBC 7.2 (4.5-11.0) X10^3/uL RBC 4.55 (4.5-5.9) X10^6/uL Hgb 14.0 (13.5-17.5) g/dL Hct 40.7 L (41-53) % MCV 89.4 (80-100) fL MCH 30.7 (26-34) PG MCHC 34.3 (30-36) % RDW 13.8 (11.6-14.8) % Plt Count 164 (150-400) X10^3/uL Neut % (Auto) 84.4 H (50-75) % Lymph % (Auto) 10.8 L (25-40) % [place] % (Auto) 4.4 (3-14) % Eos % (Auto) 0.0 L (2-4) % Baso % (Auto) 0.4 (0-2) % Neut # (Auto) 6100 (8860-1107) /uL Lymph # (Auto) 800 L (8355-3458) /uL [place] # (Auto) 300 (0-900) /uL Eos # (Auto) 0 (0-450) /uL Baso # (Auto) 0 (0-100) /uL PT 13.8 H (9.4-12.5) SECONDS INR 1.2 (0.9-1.3) Sodium 143 (137-145) mmol/L Potassium 3.7 (3.4-5.1) mmol/L Chloride 107 (98-107) mmol/L Carbon Dioxide 23 (22-32) mmol/L BUN 17 (9-20) mg/dL Creatinine 0.73 (0.66-1.25) mg/dL Estimated GFR > 60 (>60) mL/min BUN/Creatinine Ratio 23.3 H (6-22) Glucose 228 H (80-110) mg/dL Calcium 9.9 (8.4-10.2) mg/dL Total Bilirubin 1.4 H (0.2-1.3) mg/dL AST 138 H (17-59) IU/L ALT 145 H (<50) IU/L Alkaline Phosphatase 124 (38-126) U/L Total Protein 9.3 H (6.3-8.2) g/dL Albumin 4.9 (3.5-5.0) g/dL Globulin 4.4 H (1.7-4.1) g/dL Albumin/Globulin Ratio 1.1 (1.0-2.8) Lipase 31 (23-300) U/L Urine Color Yellow Urine Appearance Clear Urine pH 6.0 (4.5-8.0) Ur Specific [place] >=1.030 H (1.000-1.035) Urine Protein 2+ H (Negative) Urine Glucose (UA) Trace H (Negative) g/dL Urine Ketones 1+ H (NEGATIVE) Urine Occult Blood 2+ H (Negative) Urine Nitrate Negative (Negative) Urine Bilirubin Negative (NEGATIVE) Urine Urobilinogen 1.0 (0.2) E.U./dL Ur Leukocyte Esterase Negative (NEGATIVE) Urine RBC 5-10/hpf H (0-5/HPF) Urine WBC 1-5/hpf (0-5/HPF) Ur Squamous Epith Cells 1-5 /hpf (0-5/HPF) Urine Bacteria Occasional (0-1) (None) Urine Mucus 2+ H (Negative) Ur Culture Indicated? Cult not indicated Vol Urine Centrifuged 10ml (spun) Point of care testing: Urine Dip Bedside Urine Glucose Negative Bedside Urine Bilirubin - Negative Bedside Urine Ketone ++ 40 Urine Specific [place] 1.030 Bedside Urine Occult Blood +++ Bedside Urine pH 6.0 Bedside Urine Protein ++ 100 Bedside Urine Urobilinogen - Negative Bedside Urine Nitrite - Negative Bedside Urine Leukocytes - Negative Esterase Imaging Data CT scan - abdomen/pelvis: My Impression: Independently reviewed CT abdomen and pelvis, no bowel obstruction, no appendicitis or diverticulitis did not appear to have a ureteral stone Radiologist's Impression: [address] [address] [address] Scan Report Signed Patient: Brennan Marmolejo Jr MR#: [id number] : 1955 Acct:[id number] Age/Sex: 68 / M Date of Service: 11/10/23 Loc: ED Accession Number: [id number] Procedure: CT abdomen pelvis w con Ordering Provider: Ryan Caceres MD PROCEDURE: CT ABDOMEN PELVIS W CON INDICATIONS: abdomial pain generalized TECHNIQUE: After the administration of intravenous contrast, axial sections acquired from the lung bases to the pubic symphysis. Coronal and sagittal reformats were performed. For radiation dose reduction, the following was used: automated exposure control, adjustment of mA and/or kV according to patient size. COMPARISON: [facility], CT, CT ABDOMEN PELVIS W CON, 09/13/2022, 17:03. FINDINGS: Image quality: Diagnostic. Lower Chest: No significant findings. ABDOMEN: Liver: Hepatic contour is nodular. No focal mass. Calcifications within the right hepatic lobe superiorly. Gallbladder: Moderately distended without evidence of acute inflammation. Biliary ducts: No biliary dilation. Pancreas: No ductal dilation. Spleen: Size is within normal limits. Adrenal Glands: No adrenal nodules. Kidneys and Ureters: No hydronephrosis. No solid mass. No complex renal cystic lesion which requires follow up. 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 Small hiatal hernia. Stomach is nondistended. Small bowel is nondistended. There is focal thickening of the mid colon within the left anterior pelvis (series 2, image 59). Peritoneum: No abnormal intraperitoneal fluid. No free air. Ventral Wall: No significant ventral hernia. Abdominal Nodes: No retroperitoneal or mesenteric adenopathy by size criteria. Vessels: Aorta and inferior vena cava are normal in size. The superior mesenteric artery and vein are rotated relative to each other. PELVIS: Pelvic Organs: Unremarkable. Bladder: No bladder wall thickening, accounting for underdistention. Pelvic Nodes: No enlarged lymph nodes. Miscellaneous: No inguinal hernias are seen. Bones: No aggressive osseous abnormality. IMPRESSION: 1. Colonic thickening, with differential considerations including ischemia, infection, and inflammation. Colonoscopy is recommended to exclude underlying neoplasm. 2. Bowel malrotation. 3. Appendix not seen. No evidence of appendicitis. 4. Small hiatal hernia. 5. Cirrhosis. Dictated by: Ollie Marrero M.D. on 11/10/2023 at 16:48 Approved by: Ollie Marrero M.D. on 11/10/2023 at 16:[address] [address] [address] Scan Report Signed Patient: Brennan Marmolejo Jr MR#: [id number] : 1955 Acct:[id number] Age/Sex: 68 / M Date of Service: 11/10/23 Loc: ED Accession Number: [id number] Procedure: CT abdomen pelvis w con Ordering Provider: Ryan Caceres MD PROCEDURE: CT ABDOMEN PELVIS W CON INDICATIONS: abdomial pain generalized TECHNIQUE: After the administration of intravenous contrast, axial sections acquired from the lung bases to the pubic symphysis. Coronal and sagittal reformats were performed. For radiation dose reduction, the following was used: automated exposure control, adjustment of mA and/or kV according to patient size. COMPARISON: [facility], CT, CT ABDOMEN PELVIS W CON, 09/13/2022, 17:03. FINDINGS: Image quality: Diagnostic. Lower Chest: No significant findings. ABDOMEN: Liver: Hepatic contour is nodular. No focal mass. Calcifications within the right hepatic lobe superiorly. Gallbladder: Moderately distended without evidence of acute inflammation. Biliary ducts: No biliary dilation. Pancreas: No ductal dilation. Spleen: Size is within normal limits. Adrenal Glands: No adrenal nodules. Kidneys and Ureters: No hydronephrosis. No solid mass. No complex renal cystic lesion which requires follow up. 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 Small hiatal hernia. Stomach is nondistended. Small bowel is nondistended. There is focal thickening of the mid colon within the left anterior pelvis (series 2, image 59). Peritoneum: No abnormal intraperitoneal fluid. No free air. Ventral Wall: No significant ventral hernia. Abdominal Nodes: No retroperitoneal or mesenteric adenopathy by size criteria. Vessels: Aorta and inferior vena cava are normal in size. The superior mesenteric artery and vein are rotated relative to each other. PELVIS: Pelvic Organs: Unremarkable. Bladder: No bladder wall thickening, accounting for underdistention. Pelvic Nodes: No enlarged lymph nodes. Miscellaneous: No inguinal hernias are seen. Bones: No aggressive osseous abnormality. IMPRESSION: 1. Colonic thickening, with differential considerations including ischemia, infection, and inflammation. Colonoscopy is recommended to exclude underlying neoplasm. 2. Bowel malrotation. 3. Appendix not seen. No evidence of appendicitis. 4. Small hiatal hernia. 5. Cirrhosis. Dictated by: Ollie Marrero M.D. on 11/10/2023 at 16:48 Approved by: Ollie Marrero M.D. on 11/10/2023 at 16:54 MDM Narrative Medical decision making narrative: 68-year-old man with a history of metastatic prostate cancer coronary disease and chronic pain, on chronic opiates presenting with diffuse abdominal pain and vomiting. There does appear to be a component of opiate withdrawal. Other considerations include possibility of colitis which he has had before, bowel obstruction, appendicitis pancreatitis or urinary tract infection. Does not appear to be septic. Urinalysis does not suggest infection, no obstruction seen on CT does have evidence for colitis on CT. He is doing better after IV hydration and analgesics but still appears clinically to be dehydrated. Case is discussed with Dr. Vasques he will be admitted to Dr. Vasques for additional hydration and observation to ensure stability for discharge Discharge Plan Departure Patient Disposition: Admitted as Observation Clinical Impression: Abdominal pain Qualifiers: Abdominal location: generalized Qualified Code(s): R10.84 - Generalized abdominal pain Nausea & vomiting Qualifiers: Vomiting type: unspecified Qualified Code(s): R11.2 - Nausea with vomiting, unspecified Admit Date/Time: 11/10/23 18:21 Admit Provider: Khang Vasques
[2023-11-10 16:43] LABS: Appearance Urine UA CLEAR; Bilirubin Urine UA NEGATIVE (NEGATIVE); Color Urine UA YELLOW; Glucose Urine UA TRACE g/dL (Negative); Ketones Urine UA 1+ (NEGATIVE); Leukocyte Esterase Urine UA NEGATIVE (NEGATIVE); Nitrite Urine UA NEGATIVE (Negative); Occult Blood Urine UA 2+ (Negative); Protein Urine UA 2+ (Negative); Specific Gravity Urine UA >=1.030 (1.000-1.035)
[2023-11-10 16:57] LABS: Bacteria Urine Occasional (0-1); Culture Indicated Urine Cult Not Indicated; Mucus Urine 2+ (Negative); RBC Urine 5-10/HPF (0-5/HPF); Squamous Epithelial Cell Urine 1-5 /HPF (0-5/HPF); Urine Volume 10mL (spun); WBC Urine 1-5/HPF (0-5/HPF)
[2023-11-10] MEDS: SODIUM CHLORIDE 0.9% 1,000 ML 1000 ML IV (18:24)
[2023-11-10] MEDS: LACTATED RINGERS 1,000 ML 150 ML IV (19:48)
[2023-11-10] MEDS: HYDROMORPHONE 0.5 MG INJ 1 MG IV ×2 (20:01→23:14)
[2023-11-10] MEDS: ONDANSETRON 4 MG/2 ML INJ (20:02)
[2023-11-10] MEDS: APIXABAN 5 MG TABLET 2.5 MG PO (21:06)
[2023-11-10] MEDS: lisinopriL 20 MG TABLET PO (21:07)
[2023-11-10] MEDS: METOPROLOL ER 50 MG TABLET 100 MG PO (21:09)
[2023-11-10] MEDS: PANTOPRAZOLE 40 MG VIAL 20 MG IV (21:10)
[2023-11-11] VITALS (9 sets, daily range): BP systolic 120–191; BP diastolic 60–115; PULSE 55–74; RESP 15–16; TEMP 35.9–36.3; O2SAT 97–99
[2023-11-11] MEDS: ONDANSETRON 4 MG/2 ML INJ IV ×3 (00:54→16:13)
[2023-11-11] MEDS: HYDROMORPHONE 0.5 MG INJ 1 MG IV ×5 (02:27→17:24)
[2023-11-11] MEDS: LACTATED RINGERS 1,000 ML 150 ML IV ×2 (02:55→21:21)
[2023-11-11 05:50] LABS: Add Manual Diff / Slide Review NO; Basophils Absolute Auto 0 /uL (0-100); Basophils Percent Auto 0.1 % (0-2); Eosinophils Absolute Auto 0 /uL (0-450); Eosinophils Percent Auto 0.1 % (2-4); Hematocrit 31.2 % (41-53); Hemoglobin 10.9 g/dL (13.5-17.5); Lymphocytes Absolute Auto 1100 /uL (1100-4500); Lymphocytes Percent Auto 18.7 % (25-40); Mean Corpuscular HGB Conc 34.9 % (30-36); Mean Corpuscular Hemoglobin 30.8 PG (26-34); Mean Corpuscular Volume 88.3 fL (80-100); Monocytes Absolute Auto 900 /uL (0-900); Monocytes Percent Auto 14.3 % (3-14); Neutrophils Absolute Auto 4100 /uL (1500-7000); Neutrophils Percent Auto 66.8 % (50-75); Platelet Count 116 X10^3/uL (150-400); Red Blood Cell Count 3.53 X10^6/uL (4.5-5.9); Red Cell Distribution Width 13.9 % (11.6-14.8); White Blood Cell Count 6.1 X10^3/uL (4.5-11.0)
[2023-11-11 05:51] LABS: BUN Creatinine Ratio 33.8 (6-22); Blood Urea Nitrogen 22 mg/dL (9-20); Carbon Dioxide 26 mmol/L (22-32); Chloride 109 mmol/L (98-107); Estimated Glomerular Filt Rate > 60 mL/min (>60); Glucose 124 mg/dL (80-110); HEMOLYSIS < 15 (0-50); Potassium 3.7 mmol/L (3.4-5.1); Sodium 138 mmol/L (137-145)
--- NOTE | 2023-11-11 07:53 | P.HP_ITS ---
History of Present Illness History of Present Illness Date Patient Seen: 11/11/23 Time Patient Seen: 07:54 Chief complaint: UTI Narrative: 68-year-old male, well known to me with nausea vomiting and abdominal pain admitted via the emergency department Patient reports about 2 days of generalized abdominal pain associated with nausea and vomiting. Been unable to take his usual medications including his antihypertensives and his chronic pain medications. He thought he had a UTI because there was some pain with urination as well. In addition he had pretty significant in his words gross hematuria for a day, also making him think he had an infection, or another kidney stone. He has had gross hematuria off and on for long time. He is being treated for metastatic prostate cancer although not had long history of UTIs. Patient's ER evaluation essentially unremarkable. CT scan demonstrates as it has before an element colonic wall thickening turned colitis by interpreting radiologist but otherwise pretty much unremarkable. Normal white count, normal renal function. Patient with abnormal LFTs chronically an unchanged from previous Patient was given antiemetics IV fluids in the ER and admitted Patient presents like this over and over again on a semi-regular basis. This time it has been about a year since his last admission. Generally patient improves with hydration and parental antiemetics and returned to his usual medications. He has had multiple GI evaluations up to and including colonoscopy for this abnormality seen in his colon and there has been no clear diagnosis regarding this finding. Overall my theory has been that is something, perhaps a hyperemesis cannabis syndrome, initiate a nausea and vomiting cycle patient is unable to keep his antihypertensives and his chronic opiate therapy in his stomach and goes into opiate withdrawal and a course becomes quite hypertensive without the medications on board. 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 [facility] Medical History Hematuria Uncomplicated opioid dependence Generalized anxiety disorder Cannabis abuse Prostate cancer (~05/2019) Paroxysmal A-fib Transaminitis Kidney stones Diverticulosis of large intestine (03/31/12) Chronic hepatitis Coronary artery disease involving [place] coronary artery of [place] heart without angina pectoris (~2006) Essential hypertension Mixed hyperlipidemia Surgical History H/O heart artery stent (~2006) Hx of inguinal hernia surgery (~03/07/14) Hx of inguinal hernia surgery (~09/20/08) Status post laminectomy History of angioplasty (~12/2006) Social History marital status: unmarried,single number of children: 3 household members: friend(s) and other lives independently: Yes caregiver/support person: No housing: house pets and animals: No education level: high school occupational status: other 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/restorationism: None leisure activities: music, fishing and other Smoking Status: Never smoker Tobacco: How many years used: 56 Smokeless tobacco user: other quit status: has quit before second hand exposure: Yes (On farmland/Boat.) alcohol intake: former substance use type: does not use and marijuana eating out: rarely or never Type(s) of exercise: normal ROM and activity and additional Meds Home Medications and Allergies Home Medications Medication Instructions Recorded Confirmed Type promethazine 25 [address] Q4-6H PRN nausea and 11/18/20 10/04/23 Rx suppository vomiting #12 ea tamsulosin 0.4 mg capsule 0.4 mg PO DAILY 09/15/21 10/04/23 History atorvastatin 80 mg tablet 80 mg PO BEDTIME 07/30/22 10/04/23 History hydrocortisone 2.5 % topical cream 1 applic topical DAILY 07/30/22 10/04/23 History cyclobenzaprine 5 mg tablet 5 mg PO TID PRN Spasms #60 tabs 10/04/22 10/04/23 Rx morphine 20 mg/5 mL (4 mg/mL) oral See Rx Instructions .Route 11/05/22 10/04/23 Rx solution .COMPLEX PRN severe pain #100 mL clopidogrel 75 mg tablet 75 mg PO DAILY #90 tabs 01/10/23 10/04/23 Rx potassium chloride 10 mEq 10 meq PO DAILY #90 caps 03/22/23 10/04/23 Rx capsule,extended release enzalutamide 40 mg tablet (Xtandi) 80 mg PO DAILY 04/05/23 10/04/23 History duloxetine 20 mg capsule,delayed 20 mg PO DAILY #90 caps 08/01/23 11/10/23 Rx release (Cymbalta) lisinopril 20 mg tablet 20 mg PO BID #180 tabs 09/07/23 10/04/23 Rx metformin 500 mg tablet 500 mg PO BID #180 tabs 09/26/23 10/04/23 Rx omeprazole 40 mg capsule,delayed 40 mg PO BID #180 caps 09/26/23 10/04/23 Rx release metoprolol succinate 100 mg 100 mg PO BID #180 tabs 09/27/23 10/04/23 Rx tablet,extended release 24 hr gabapentin 300 mg capsule 300 mg PO BID 10/04/23 10/04/23 History apixaban 2.5 mg tablet (Eliquis) 2.5 mg PO BID #180 tabs 10/05/23 Rx oxycodone 5 mg tablet 10 mg (2 x 5 mg) PO Q4H PRN pain 10/17/23 11/10/23 Rx #360 tabs Allergies Allergy/AdvReac Type Severity Reaction Status Date / Time No Known Drug Allergies Allergy Verified 10/04/23 09:22 Exam Vital Signs (past 8 hours): - 11/11/23 04:00 Temperature 97.4 F L Pulse Rate 74 Respiratory Rate 16 Blood Pressure 126/72 Pulse Oximetry 99 Oxygen Flow Rate 0 Oxygen Delivery Method Room Air Oxygen Flow Rate 0 Narrative Exam Narrative: Chronically ill-appearing male who looks much older than his stated age but in no obvious distress lying on his side in a semi- position in his bed HEENT unremarkable Lungs-good breath sounds no wheezes no crackles Heart-regular rate and rhythm Abdomen-diffuse very mild tenderness no rebound or guarding bowel tones normal to maybe minimally diminished no masses palpable Extremities-no cyanosis clubbing or edema Objective Labs 11/11/23 04:50 11/11/23 04:50 Labs: Laboratory Results - last 24 hr 11/10/23 11/10/23 11/11/23 15:34 15:41 04:50 WBC 7.2 6.1 RBC 4.55 3.53 L Hgb 14.0 10.9 L Hct 40.7 L 31.2 L MCV 89.4 88.3 MCH 30.7 30.8 MCHC 34.3 34.9 RDW 13.8 13.9 Plt Count 164 116 L Neut % (Auto) 84.4 H 66.8 Lymph % (Auto) 10.8 L 18.7 L [place] % (Auto) 4.4 14.3 H Eos % (Auto) 0.0 L 0.1 L Baso % (Auto) 0.4 0.1 Neut # (Auto) 6100 4100 Lymph # (Auto) 800 L 1100 [place] # (Auto) 300 900 Eos # (Auto) 0 0 Baso # (Auto) 0 0 PT 13.8 H INR 1.2 Sodium 143 138 Potassium 3.7 3.7 Chloride 107 109 H Carbon Dioxide 23 26 BUN 17 22 H Creatinine 0.73 0.65 L Estimated GFR > 60 > 60 BUN/Creatinine Ratio 23.3 H 33.8 H Glucose 228 H 124 H D Calcium 9.9 9.0 Total Bilirubin 1.4 H AST 138 H ALT 145 H Alkaline Phosphatase 124 Total Protein 9.3 H Albumin 4.9 Globulin 4.4 H Albumin/Globulin Ratio 1.1 Lipase 31 Urine Color Yellow Urine Appearance Clear Urine pH 6.0 Ur Specific [place] >=1.030 H Urine Protein 2+ H Urine Glucose (UA) Trace H Urine Ketones 1+ H Urine Occult Blood 2+ H Urine Nitrate Negative Urine Bilirubin Negative Urine Urobilinogen 1.0 Ur Leukocyte Esterase Negative Urine RBC 5-10/hpf H Urine WBC 1-5/hpf Ur Squamous Epith Cells 1-5 /hpf Urine Bacteria Occasional (0-1) Urine Mucus 2+ H Ur Culture Indicated? Cult not indicated Vol Urine Centrifuged 10ml (spun) Assessment & Plan Assessment & Plan narrative: 1. Nausea vomiting and abdominal pain-likely as above secondary to some element of opiate withdrawal and perhaps some other etiology that is poorly characterized causing these intermittent nausea and vomiting patterns. He was responded already to IV fluids and IV antiemetics. Plan to continue these and slowly re-feed him. No indication for any further evaluation based on relatively normal labs (for him) as well as imaging which fails to demonstrate anything new, (the colonic wall thickening is old, and nothing was seen on colonoscopy previously, and patient adamantly refuses any additional colonoscopies). 2. Hypertension-patient quite hypertensive on presentation likely secondary to lack of his usual oral meds. With the assistance of the parental antiemetics we should be able to get him back on his usual oral medications and blood pressure already is much better. 3. Paroxysmal atrial fibrillation-patient currently seems to be in sinus rhythm. Continue his usual meds including his beta-ky and his anticoagulation 4. Diabetes-until patient's GI symptoms are much better will hold off on his oral meds but continue with carbohydrate consistent diet when his diet is advanced and use insulin for coverage 5. Coronary disease-no evidence of recurrent coronary issues at this time. Continue usual medications including his beta-ky therapy antihypertensive therapy and lipid lowering therapy 6. Prostate cancer-no specific intervention at this time 7. Question UTI-patient's urinalysis really does not support the presence of a UTI. Continue monitor symptoms and appropriate perhaps obtain another sample to see if we can further demonstrate what is ongoing. However patient with complex history of the urinary tract may well be experiencing symptoms more related to his treatment for his prostate cancer than actual infectious cystitis. 8. Code status-patient has previously requested and confirmed he would not want to be resuscitated in the event of a sudden cardiac or respiratory arrest 9. VTE prophylaxis-patient will continue on his usual full-dose anticoagulation for stroke risk reduction due to his atrial fibrillation and no additional chemo prophylaxis appropriate. Continue with SCDs as well 10. Anemia-patient's labs this morning compared to yesterday's ER labs show a drop in hemoglobin and hematocrit. I believe there is probably some element fluid equilibration ongoing here but will continue to monitor for evidence of large volume bleeding and plan to recheck numbers tomorrow. Patient reported some significant gross hematuria perhaps that is the source of his blood loss. As above patient refuses any further colonoscopy etcetera. More likely than not his anemia is multifactorial and perhaps related to chronic disease. Will add iron studies etcetera to labs from this morning Quality VTE Deep Vein Thrombosis/Pulmonary Embolism Present on Admission: No
[2023-11-11] MEDS: METOPROLOL ER 50 MG TABLET 100 MG PO ×2 (08:26→20:27)
[2023-11-11] MEDS: DULOXETINE 20 MG CAPSULE PO (08:26)
[2023-11-11] MEDS: TAMSULOSIN 0.4 MG CAPSULE PO (08:26)
[2023-11-11] MEDS: APIXABAN 5 MG TABLET 2.5 MG PO ×2 (08:26→20:26)
[2023-11-11] MEDS: PANTOPRAZOLE 40 MG VIAL 20 MG IV ×2 (08:26→20:24)
[2023-11-11] MEDS: lisinopriL 20 MG TABLET PO ×2 (08:26→20:25)
[2023-11-11] MEDS: CLOPIDOGREL 75 MG TABLET PO (08:26)
--- NOTE | 2023-11-11 11:00 | CM.DANOTE ---
Addendum entered by JAYME Arriola 11/11/23 11:06: ADD: Patient has a financial POA, Anel Palacios P [phone] Original Note: Initial DCP Assessment Note Pt is a 68 yo male, resident of [place], arrives with abd pain w/ N/V, admitted for monitoring and IVF, IV nausea/vomiting meds. PCP: Khang Vasques Payer: Janny Irwin Reviewed chart, Met w/patient to introduce self and role. Patient lives alone, has friends Lisandra and Peg assist throughout the week with higher ADLs, meds and transportation. Patient reports that he is indp mostly. Patient reports hx of [facility] although does not feel HH services will be needed upon his discharge. No barriers identified at this time to patient's safe discharge home w/friends to assist; close outpatient f/u recommended. CM team will plan to follow closely in case any DC needs or concerns arise. JAYME Leslie Discharge Planning/Care Management CM Discharge Assessment Start: 11/11/23 10:48 Freq: Status: Active Protocol: Document 11/11/23 10:53 GINGER (Rec: 11/11/23 11:00 GINGER [id number]) Discharge Planning Assessment Assigned Quality Assurance Representative JAYME Fleming DPOA/Assigned Designee Name Lisandra Lorenz, friend and caregiver Contact Information [phone] Advance Directives? Yes: POLST Advance Directives on File No History Provided By Patient,Medical Record Prior Living Arrangements House Household Members friend(s),other Type of transporation used prior to Relies on Others admit Independent with ADL's No Is patient alert and oriented? Yes Needs Assistance With Bathing,Meal Prep,Managing Medications,Home Chores / Shopping Comment Patient reports he cooks a meal for his friends on Sundays Caregiver for Another No Barriers to Discharge No Comment Patient's friends Peg and Lisandra assist him throughout the week with meds, ADLs, transportation Discharge Plan Home Transportation Arrangement Patient reports that Lisandra can pick him up at time of d/c . Referrals Initiated None needed Additional Comment Patient does not think he will need HH upon discharge If patient plan is home with home health No : Has signed face to face form been completed? Whiteboard Updated in Patient Room with Yes name and ext. # of Quality Assurance Representative
[2023-11-11 11:17] LABS: HEMOLYSIS < 15 (0-50); Iron 87 ug/dL (49-181)
[2023-11-11 11:25] LABS: Folate 11.7 ng/mL (2.76-20.0); Vitamin B12 833 pg/mL (239-931)
[2023-11-11 11:30] LABS: Percent Iron Saturation 21 % (20-50); Total Iron Binding Capacity 419 ug/dL (261-462); Transferrin 301 mg/dL (206-381)
[2023-11-11] MEDS: INSULIN LISPRO 100 UNIT/ML 3ML VIAL SUBCUT (11:36)
[2023-11-11] MEDS: LORazepam 2 MG/ML INJ IV ×2 (11:44→17:20)
[2023-11-11] MEDS: ATORVASTATIN 20 MG TABLET 80 MG PO (20:27)
[2023-11-11] MEDS: GABAPENTIN 300 MG CAPSULE PO (20:27)
[2023-11-12] VITALS (9 sets, daily range): BP systolic 145–157; BP diastolic 85–95; PULSE 56–63; RESP 12–17; TEMP 35.8–36.8; O2SAT 94–97
[2023-11-12] MEDS: HYDROMORPHONE 0.5 MG INJ 1 MG IV ×5 (04:33→23:42)
[2023-11-12 05:03] LABS: Add Manual Diff / Slide Review NO; Basophils Absolute Auto 0 /uL (0-100); Basophils Percent Auto 0.4 % (0-2); Eosinophils Absolute Auto 0 /uL (0-450); Eosinophils Percent Auto 0.9 % (2-4); Hematocrit 32.4 % (41-53); Hemoglobin 11.4 g/dL (13.5-17.5); Lymphocytes Absolute Auto 1100 /uL (1100-4500); Lymphocytes Percent Auto 27.4 % (25-40); Mean Corpuscular HGB Conc 35.2 % (30-36); Mean Corpuscular Hemoglobin 30.7 PG (26-34); Mean Corpuscular Volume 87.3 fL (80-100); Monocytes Absolute Auto 500 /uL (0-900); Neutrophils Absolute Auto 2500 /uL (1500-7000); Neutrophils Percent Auto 60.3 % (50-75); Platelet Count 105 X10^3/uL (150-400); Red Blood Cell Count 3.71 X10^6/uL (4.5-5.9); Red Cell Distribution Width 13.4 % (11.6-14.8); White Blood Cell Count 4.2 X10^3/uL (4.5-11.0)
[2023-11-12 05:07] LABS: BUN Creatinine Ratio 27.5 (6-22); Blood Urea Nitrogen 19 mg/dL (9-20); Calcium 8.9 mg/dL (8.4-10.2); Carbon Dioxide 28 mmol/L (22-32); Chloride 107 mmol/L (98-107); Estimated Glomerular Filt Rate > 60 mL/min (>60); Glucose 118 mg/dL (80-110); HEMOLYSIS < 15 (0-50); Potassium 3.5 mmol/L (3.4-5.1); Sodium 136 mmol/L (137-145)
[2023-11-12] MEDS: LACTATED RINGERS 1,000 ML 150 ML IV ×2 (06:27→13:24)
[2023-11-12] MEDS: POTASSIUM CHLORIDE 20 MEQ TAB 40 MEQ PO (10:00)
[2023-11-12] MEDS: GABAPENTIN 300 MG CAPSULE PO ×2 (10:00→21:12)
[2023-11-12] MEDS: lisinopriL 20 MG TABLET PO ×2 (10:00→21:12)
[2023-11-12] MEDS: DULOXETINE 20 MG CAPSULE PO (10:00)
[2023-11-12] MEDS: CLOPIDOGREL 75 MG TABLET PO (10:00)
[2023-11-12] MEDS: TAMSULOSIN 0.4 MG CAPSULE PO (10:00)
[2023-11-12] MEDS: APIXABAN 5 MG TABLET 2.5 MG PO ×2 (10:00→21:13)
[2023-11-12] MEDS: PANTOPRAZOLE 40 MG VIAL 20 MG IV ×2 (10:01→21:13)
[2023-11-12] MEDS: METOPROLOL ER 50 MG TABLET 100 MG PO ×2 (10:01→21:12)
[2023-11-12] MEDS: ONDANSETRON 4 MG/2 ML INJ IV (10:09)
--- NOTE | 2023-11-12 11:53 | PM.PN.1 ---
Subjective Subjective Date Patient Seen: 11/12/23 Time Patient Seen: 10:00 Interval history: Oj is feeling improved this morning, still noting some nausea and pain but much better than yesterday. He is taking in Po fluids and is interesting in progressing his diet forward. Planning for decreasing IVF and potentially stopping today as we advance diet and hopefully home tomorrow once toelrating PO better Exam Vital Signs (past 8 hours): - 11/12/23 04:00 11/12/23 08:11 11/12/23 10:00 Temperature 97.3 F L 97.5 F L Pulse Rate 60 60 60 Respiratory Rate 16 12 Blood Pressure 157/85 H 154/88 H 154/88 H Pulse Oximetry 97 96 11/12/23 10:01 Temperature Pulse Rate Respiratory Rate Blood Pressure 154/88 H Pulse Oximetry Oxygen Delivery Method Room Air Oxygen Flow Rate 0 Narrative Exam Narrative: GEN: Chronically ill appearing but not acutely ill, NAD PSYCH: Good Judgment. AOx3. Normal memory, mood, and affect HEENT: -Head: NC/AT -Eyes: No discharge or redness CV: warm and well perfused LUNGS: breathing comfortably on RA SKIN: Warm, well perfused. No skin rashes or abnormal lesions MSK: No deformities NEURO: No focal deficits Objective Labs 11/12/23 04:30 11/12/23 04:30 Labs: Laboratory Results - last 24 hr 11/12/23 04:30 WBC 4.2 L RBC 3.71 L Hgb 11.4 L Hct 32.4 L MCV 87.3 MCH 30.7 MCHC 35.2 RDW 13.4 Plt Count 105 L Neut % (Auto) 60.3 Lymph % (Auto) 27.4 [place] % (Auto) 11.0 Eos % (Auto) 0.9 L Baso % (Auto) 0.4 Neut # (Auto) 2500 Lymph # (Auto) 1100 [place] # (Auto) 500 Eos # (Auto) 0 Baso # (Auto) 0 Sodium 136 L Potassium 3.5 Chloride 107 Carbon Dioxide 28 BUN 19 Creatinine 0.69 Estimated GFR > 60 BUN/Creatinine Ratio 27.5 H Glucose 118 H Calcium 8.9 PFSH Medical History Hematuria Uncomplicated opioid dependence Generalized anxiety disorder Cannabis abuse Prostate cancer (~05/2019) Paroxysmal A-fib Transaminitis Kidney stones Diverticulosis of large intestine (03/31/12) Chronic hepatitis Coronary artery disease involving [place] coronary artery of [place] heart without angina pectoris (~2006) Essential hypertension Mixed hyperlipidemia Surgical History H/O heart artery stent (~2006) Hx of inguinal hernia surgery (~03/07/14) Hx of inguinal hernia surgery (~09/20/08) Status post laminectomy History of angioplasty (~12/2006) Social History marital status: unmarried,single number of children: 3 household members: friend(s) and other lives independently: Yes caregiver/support person: No housing: house pets and animals: No education level: high school occupational status: other 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/religious: None leisure activities: music, fishing and other Smoking Status: Never smoker Tobacco: How many years used: 56 Smokeless tobacco user: other quit status: has quit before second hand exposure: Yes (On farmland/Boat.) alcohol intake: former substance use type: does not use and marijuana eating out: rarely or never Type(s) of exercise: normal ROM and activity and additional Assessment & Plan Assessment and plan (1) Abdominal pain: Qualifiers: Abdominal location: generalized Qualified Code(s): R10.84 - Generalized abdominal pain Status: Acute (2) Nausea & vomiting: Qualifiers: Vomiting type: unspecified Qualified Code(s): R11.2 - Nausea with vomiting, unspecified Status: Acute Plan 68 yo M with hc of uncompllicated opioid dependence, prostate CA, cannabis use, CAD and HTN who presented with abdominal pain and nausea which were preventing from taking his home PO medications. He was admitted for dehydration and IVF to assist with transition back to toelrating PO. This morning he is doing much better than yesterday but is still only taking small volumes of fluid. Plan to stay inpt for one more night and slowly decrease IVF while advancing diet as tolerated. Hopefully will be ok for DC tomorrow AM 1. Nasuea/vomiting: thought to be related to cannabis hyperemesis + some opioid withdrawal, sx improving with IV treatment. Now tolerating PO fluids - dc IV fluids - Continue IV antiemetics - Advance diet as tolerated 2. HTN: BPs elevated to 150s/80s, down from 180-190/100 last night. Suspect that initially this was related to not being able to tolerate PO medications. these were jsut restarted and BPs seem to be improving, will continue to trend pressures over the next 24 hours before making adjustments - Continue MEtoprolol 100, Lisinopril 20 3. Paroxysmal A. fib - continue Eliquis 2.5mg + Metoprolol 100 4. DM2: - Carb consistent diet - holding home Po medications for now, glucose control with insulin 5. CAD - continue Atorvastatin 80 + BB + [id number] 6. Prostate CA: - not on any tx currently, defer to outpt provider 7. Urinary urgency: UA in ER not consistent with UTI. Sx have improved since arrival but are still present. Continue to trend sx and consider UA tomorrow before discharge 8. Chronic pain: - continue Duloxetine, gabapentin and oxycodone per PCP management plan Code status: DNR DVT ppx: continue home anticoagulation for a fib + SCDs Quality VTE Deep Vein Thrombosis/Pulmonary Embolism Present on Admission: No
[2023-11-12] MEDS: INSULIN LISPRO 100 UNIT/ML 3ML VIAL SUBCUT ×2 (12:25→17:02)
[2023-11-12] MEDS: OXYCODONE IR 5 MG TABLET PO (13:29)
[2023-11-12] MEDS: OXYCODONE IR 10 MG TABLET PO (15:49)
[2023-11-12] MEDS: ATORVASTATIN 20 MG TABLET 80 MG PO (21:12)
[2023-11-13 04:00] VITALS: BP 120/78; PULSE 97; RESP 17; TEMP 36.2; O2SAT 93
[2023-11-13] MEDS: HYDROMORPHONE 0.5 MG INJ 1 MG IV (04:13)
[2023-11-13] MEDS: CLOPIDOGREL 75 MG TABLET PO (08:16)
[2023-11-13] MEDS: PANTOPRAZOLE DR 20 MG TABLET PO (08:16)
[2023-11-13] MEDS: DULOXETINE 20 MG CAPSULE PO (08:16)
[2023-11-13] MEDS: TAMSULOSIN 0.4 MG CAPSULE PO (08:16)
[2023-11-13] MEDS: APIXABAN 5 MG TABLET 2.5 MG PO (08:16)
[2023-11-13] MEDS: GABAPENTIN 300 MG CAPSULE PO (08:16)
[2023-11-13 08:17] VITALS: BP 157/85; PULSE 58
[2023-11-13] MEDS: ONDANSETRON 4 MG/2 ML INJ IV (08:17)
[2023-11-13] MEDS: METOPROLOL ER 50 MG TABLET 100 MG PO (08:17)
[2023-11-13] MEDS: lisinopriL 20 MG TABLET PO (08:17)
[2023-11-13] MEDS: OXYCODONE IR 10 MG TABLET PO ×2 (08:18→11:37)
[2023-11-13] MEDS: INSULIN LISPRO 100 UNIT/ML 3ML VIAL SUBCUT ×2 (08:18→12:13)
--- NOTE | 2023-11-13 09:41 | PM.DS.1 ---
History of Present Illness History of Present Illness Date Patient Seen: 11/13/23 Time Patient Seen: 08:41 Chief complaint: nausea/vomiting Narrative: 68 yo M with hx of uncomplicated opioid dependence, prostate CA, cannabis use, CAD and HTN who presented with abdominal pain and nausea which were preventing from taking his home PO medications. He was admitted for dehydration and IVF to assist with transition back to tolerating PO. Discharge Providers Provider Date of admission: 11/10/23 18:21 Discharge Date: 11/13/23 Primary care physician: Khang Vasques MD Discharge provider: Estella Denton MD Summary Hospital Course Discharge Diagnosis: Dehydration, weakness Hospital Course: 68 yo M with hx of uncomplicated opioid dependence, prostate CA, cannabis use, CAD and HTN who presented with abdominal pain and nausea which were preventing from taking his home PO medications. He was admitted for dehydration and IVF to assist with transition back to tolerating PO. Symptoms improved with IV fluids, IV pain medication and IV antiemetics. During his admission, diet was slowly advanced to clear liquids, full liquids and then solids. He tolerated this advancement well. IV narcotics and antiemetics were discontinued and p.o. medications were restarted. He tolerated this transition well as well. By the time of discharge, he was tolerating full diet and all of his medications without IV medications. Hypertension: Continued on metoprolol 100 mg and lisinopril 20 Paroxysmal AFib: Continued on home Eliquis and metoprolol DM2: Managed with carb consistent diet CAD: Continued on atorvastatin, metoprolol and lisinopril Prostate cancer: Managing with Lupron injections, defer further management to LP from provider Urinary urgency/frequency: UA in ER not consistent with UTI. Sx have improved since arrival but are still present. Repeat UA was ordered which showed no sign of UTI. Suspect at least partially related to prostate cancer. Recommend following up with PCP Chronic pain: Managed with duloxetine, gabapentin and oxycodone. Was given additional pain control with extra oxycodone and occasional IV Dilaudid during his admission. By the time of discharge was no longer requiring IV medications. Discharged home to home management plan. Status at Discharge Cognitive/behavioral status at discharge: oriented Overall status at discharge: patient is back to baseline Time Spent with Patient Time spent: Greater than 30 minutes Exam Vital Signs (past 8 hours): - 11/13/23 04:00 11/13/23 08:17 11/13/23 08:17 Temperature 97.2 F L Pulse Rate 97 H 58 L 58 L Respiratory Rate 17 Blood Pressure 120/78 157/85 H 157/85 H Pulse Oximetry 93 Oxygen Flow Rate 0 Oxygen Delivery Method Room Air Oxygen Flow Rate 0 Narrative Exam Narrative: GEN: Chronically ill appearing but not acutely ill, NAD PSYCH: Good Judgment. AOx3. Normal memory, mood, and affect HEENT: -Head: NC/AT -Eyes: No discharge or redness CV: warm and well perfused LUNGS: breathing comfortably on RA SKIN: Warm, well perfused. No skin rashes or abnormal lesions MSK: No deformities NEURO: No focal deficits Objective Labs 11/12/23 04:30 11/12/23 04:30 PFS Medical History Hematuria Uncomplicated opioid dependence Generalized anxiety disorder Cannabis abuse Prostate cancer (~05/2019) Paroxysmal A-fib Transaminitis Kidney stones Diverticulosis of large intestine (03/31/12) Chronic hepatitis Coronary artery disease involving [place] coronary artery of three [place] heart without angina pectoris (~2006) Essential hypertension Mixed hyperlipidemia Surgical History H/O heart artery stent (~2006) Hx of inguinal hernia surgery (~03/07/14) Hx of inguinal hernia surgery (~09/20/08) Status post laminectomy History of angioplasty (~12/2006) Social History marital status: unmarried,single number of children: 3 household members: friend(s) and other lives independently: Yes caregiver/support person: No housing: house pets and animals: No education level: high school occupational status: other 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/religious: None leisure activities: music, fishing and other Smoking Status: Never smoker Tobacco: How many years used: 56 Smokeless tobacco user: other quit status: has quit before second hand exposure: Yes (On farmland/Boat.) alcohol intake: former substance use type: does not use and marijuana eating out: rarely or never Type(s) of exercise: normal ROM and activity and additional Discharge Assessment & Plan Assessment and Plan Plan of Treatment: 68 yo M with hx of uncomplicated opioid dependence, prostate CA, cannabis use, CAD and HTN who presented with abdominal pain and nausea which were preventing from taking his home PO medications. He was admitted for dehydration and IVF to assist with transition back to tolerating PO. Dehydration: Tolerating PO intake liquid and solid with Po antiemetics and pain control. Ready for dc Hypertension: Continued on metoprolol 100 mg and lisinopril 20 Paroxysmal AFib: Continued on home Eliquis and metoprolol DM2: Managed with carb consistent diet + SSI. Restarted on home Metformin at discharge CAD: Continued on atorvastatin, metoprolol and lisinopril Prostate cancer: Managing with Lupron injections, defer further management to LP from provider Urinary urgency/frequency: UA in ER not consistent with UTI. Sx have improved since arrival but are still present. Repeat UA was ordered which showed no sign of UTI. Suspect at least partially related to prostate cancer. Recommend following up with PCP Chronic pain: Managed with duloxetine, gabapentin and oxycodone. Was given additional pain control with extra oxycodone and occasional IV Dilaudid during his admission. By the time of discharge was no longer requiring IV medications. Discharged home to home management plan. Discharge Plan Discharge Plan Patient Disposition: Home Discharge orders & Medications Prescriptions: New ondansetron 4 mg Tablet,Disintegrating 4 mg sublingual Q6HR PRN (Reason: Nausea, 1st line) 14 Days Qty: 30 0RF Continued clopidogrel 75 mg tablet 75 mg PO DAILY Qty: 90 3RF potassium chloride 10 mEq capsule, extended release 10 meq PO DAILY Qty: 90 3RF duloxetine [Cymbalta] 20 mg capsule,delayed release(DR/EC) 20 mg PO DAILY Qty: 90 3RF lisinopril 20 mg tablet 20 mg PO BID Qty: 180 3RF metformin 500 mg tablet 500 mg PO BID Qty: 180 3RF omeprazole 40 mg capsule,delayed release(DR/EC) 40 mg PO BID Qty: 180 3RF metoprolol succinate 100 mg tablet extended release 24 hr 100 mg PO BID Qty: 180 3RF Eliquis 2.5 mg tablet 2.5 mg PO BID Qty: 180 3RF oxycodone 5 mg tablet 10 mg PO Q4H PRN (Reason: pain) Qty: 360 0RF atorvastatin 80 mg tablet 80 mg PO BEDTIME hydrocortisone 2.5 % cream 1 applic topical DAILY Patient Comments: APPLY TO FACE AND BODY TWICE DAILY FOR 2 WEEKS THEN NEEDED gabapentin 300 mg capsule 300 mg PO BID Patient Comments: TAKE 1 OR 2 CAPSULES BY MOUTH NIGHTLY tamsulosin 0.4 mg capsule 0.4 mg PO DAILY Patient Comments: take 1 capsule by mouth once daily promethazine 25 mg suppository 25 mg AR Q4-6H PRN (Reason: nausea and vomiting) Qty: 12 0RF Follow up/Referrals: Khang Vasques MD [Primary Care Provider] - Visit Report/Discharge Packet Stand Alone Forms: Patient Portal/API, Stroke Signs & Symptoms Discharge Data Primary Care Provider: Khang Vasques Attending Provider: Khang Vasques Admit Date/Time: 11/10/23 18:21 Quality VTE Deep Vein Thrombosis/Pulmonary Embolism Present on Admission: No
[2023-11-13 09:56] LABS: Add Manual Diff / Slide Review NO; Basophils Absolute Auto 0 /uL (0-100); Basophils Percent Auto 0.5 % (0-2); Eosinophils Absolute Auto 100 /uL (0-450); Eosinophils Percent Auto 2.6 % (2-4); Hematocrit 36.3 % (41-53); Hemoglobin 12.4 g/dL (13.5-17.5); Lymphocytes Absolute Auto 800 /uL (1100-4500); Lymphocytes Percent Auto 22.8 % (25-40); Mean Corpuscular HGB Conc 34.2 % (30-36); Mean Corpuscular Hemoglobin 30.2 PG (26-34); Mean Corpuscular Volume 88.3 fL (80-100); Monocytes Absolute Auto 500 /uL (0-900); Monocytes Percent Auto 15.5 % (3-14); Neutrophils Absolute Auto 1900 /uL (1500-7000); Neutrophils Percent Auto 58.6 % (50-75); Platelet Count 106 X10^3/uL (150-400); Red Blood Cell Count 4.11 X10^6/uL (4.5-5.9); Red Cell Distribution Width 13.6 % (11.6-14.8); White Blood Cell Count 3.3 X10^3/uL (4.5-11.0)
[2023-11-13 10:39] VITALS: BP 157/85; PULSE 57; RESP 15; TEMP 36.1; O2SAT 96
[2023-11-13 11:36] VITALS: BP 143/78; PULSE 70
--- NOTE | 2023-11-13 13:49 | PC.NURSE ---
Day shift: Discharge information gone over with patient and patient's caregiver Lisandra. Patient stated understanding and all questions answered. PIV d/c'ed prior to discharge. Ensured all belongings with patient. JESSIE Estrada escorted patient via wheelchair to exit where caregiver plans to drive him home.
--- NOTE | 2023-11-13 13:56 | CM.DPC ---
DCP Note EMBEDDED SOFTWARE DESIGN ENGINEER reviewed EMR. Per previous CM notes, home with friends and caregivers at dc. Friend to transport home. No additional needs identified. Per RN, ride will be here in afternoon to transport pt home. Pt left prior to being seen by this EMBEDDED SOFTWARE DESIGN ENGINEER. Home with friend and CGs. Plan: pt dc'd home today with friend/CG to transport. No additional CM needs. CM team will follow as needed. JAYME Andrade
== END 2023-11-13 13:05 | disposition home or self-care (01) | DRG 641 ==
LOC: ED 15:44 → AC 18:22
PROVIDERS: Family Medicine; Admitting Provider Internal Medicine; Emergency Provider Emergency Medicine; PCP Internal Medicine; Referring Provider Emergency Medicine; Visit Provider Internal Medicine
DX: E86.0 Dehydration (principal); I10 Essential (primary) hypertension; I48.0 Paroxysmal atrial fibrillation; E11.9 Type 2 diabetes mellitus without complications; I25.10 Atherosclerotic heart disease of native coronary artery without angina pectoris; G89.29 Other chronic pain; C61 Malignant neoplasm of prostate; R39.15 Urgency of urination; R11.2 Nausea with vomiting, unspecified; F12.90 Cannabis use, unspecified, uncomplicated; R10.84 Generalized abdominal pain; Z79.84 Long term (current) use of oral hypoglycemic drugs; Z79.01 Long term (current) use of anticoagulants
CPT/HCPCS: 36415; 51798; 74177; 80048; 80053; 81001; 81003; 82607; 82746; 82962; 83540; 83550; 83690; 85025; 85610; 96361; 96374; 96375; 99223; 99232; 99238; 99284; G0378; C9113; J1170; J1815; J2060; J2405; Q9967

== ENCOUNTER → 2024-03-02 11:00 | Outpatient (CLI) | payer OTHER, SELFPAY ==
[2023-11-10 18:58] VITALS: BMI 20.3
[2024-03-02 11:56] LABS: Add Manual Diff / Slide Review NO; Basophils Absolute Auto 0 /uL (0-100); Basophils Percent Auto 0.4 % (0-2); Eosinophils Absolute Auto 100 /uL (0-450); Eosinophils Percent Auto 1.5 % (2-4); Hematocrit 36.2 % (41-53); Hemoglobin 12.7 g/dL (13.5-17.5); Lymphocytes Absolute Auto 1700 /uL (1100-4500); Lymphocytes Percent Auto 23.4 % (25-40); Mean Corpuscular Hemoglobin 30.1 PG (26-34); Monocytes Absolute Auto 700 /uL (0-900); Monocytes Percent Auto 9.1 % (3-14); Neutrophils Absolute Auto 4700 /uL (1500-7000); Neutrophils Percent Auto 65.6 % (50-75); Platelet Count 133 X10^3/uL (150-400); Red Cell Distribution Width 15.2 % (11.6-14.8); White Blood Cell Count 7.2 X10^3/uL (4.5-11.0)
[2024-03-02 12:34] LABS: Alanine Aminotransferase 108 IU/L (<50); Albumin 3.8 g/dL (3.5-5.0); Albumin Globulin Ratio 1.2 (1.0-2.8); Alkaline Phosphatase 135 U/L (38-126); Aspartate Aminotransferase 94 IU/L (17-59); BUN Creatinine Ratio 25.8 (6-22); Bilirubin Total 0.5 mg/dL (0.2-1.3); Blood Urea Nitrogen 25 mg/dL (9-20); Calcium 9.2 mg/dL (8.4-10.2); Carbon Dioxide 26 mmol/L (22-32); Chloride 106 mmol/L (98-107); Estimated Glomerular Filt Rate > 60 mL/min (>60); Globulin 3.3 g/dL (1.7-4.1); Glucose 230 mg/dL (80-110); HEMOLYSIS < 15 (0-50); Sodium 139 mmol/L (137-145); Total Protein 7.1 g/dL (6.3-8.2)
[2024-03-02 13:03] LABS: Hemoglobin A1C% w Est Avg Glu 7.1 % (4.0-6.0)
== END ==
PROVIDERS: PCP Internal Medicine; Referring Provider Internal Medicine; Visit Provider Internal Medicine
DX: E11.9 Type 2 diabetes mellitus without complications (principal); I10 Essential (primary) hypertension; E78.2 Mixed hyperlipidemia
CPT/HCPCS: 36415; 80053; 83036; 85025

== ENCOUNTER 2024-03-18 22:16 | Emergency (ER) | payer OTHER, SELFPAY ==
[2023-11-10 18:58] VITALS: BMI 20.3
[2024-03-18] VITALS (7 sets, daily range): BP systolic 114–190; BP diastolic 71–112; PULSE 74–82; RESP 9–16; TEMP 36.7; O2SAT 97–99; BMI 20.3
[2024-03-18] MEDS: SODIUM CHLORIDE 0.9% 1,000 ML 1000 ML IV (22:32)
[2024-03-18] MEDS: ONDANSETRON 4 MG/2 ML INJ IV (22:33)
[2024-03-18] MEDS: HYDROMORPHONE 0.5 MG INJ IV (22:43)
[2024-03-18 22:46] LABS: Add Manual Diff / Slide Review NO; Basophils Absolute Auto 0 /uL (0-100); Basophils Percent Auto 0.3 % (0-2); Eosinophils Absolute Auto 0 /uL (0-450); Hematocrit 39.4 % (41-53); Hemoglobin 13.7 g/dL (13.5-17.5); Lymphocytes Absolute Auto 1100 /uL (1100-4500); Lymphocytes Percent Auto 14.2 % (25-40); Mean Corpuscular HGB Conc 34.9 % (30-36); Mean Corpuscular Hemoglobin 30.3 PG (26-34); Mean Corpuscular Volume 86.8 fL (80-100); Monocytes Absolute Auto 700 /uL (0-900); Monocytes Percent Auto 8.9 % (3-14); Neutrophils Absolute Auto 5900 /uL (1500-7000); Neutrophils Percent Auto 76.6 % (50-75); Platelet Count 173 X10^3/uL (150-400); Red Blood Cell Count 4.53 X10^6/uL (4.5-5.9); Red Cell Distribution Width 15.6 % (11.6-14.8); White Blood Cell Count 7.7 X10^3/uL (4.5-11.0)
[2024-03-18 23:03] LABS: Alanine Aminotransferase 143 IU/L (<50); Albumin Globulin Ratio 1.1 (1.0-2.8); Alkaline Phosphatase 147 U/L (38-126); Aspartate Aminotransferase 149 IU/L (17-59); BUN Creatinine Ratio 27.5 (6-22); Bilirubin Total 1.4 mg/dL (0.2-1.3); Blood Urea Nitrogen 22 mg/dL (9-20); Calcium 10.3 mg/dL (8.4-10.2); Carbon Dioxide 21 mmol/L (22-32); Chloride 103 mmol/L (98-107); Estimated Glomerular Filt Rate > 60 mL/min (>60); Globulin 4.7 g/dL (1.7-4.1); Glucose 257 mg/dL (80-110); HEMOLYSIS < 15 (0-50); Lipase 45 U/L (23-300); Sodium 138 mmol/L (137-145); Total Protein 9.7 g/dL (6.3-8.2)
--- NOTE | 2024-03-18 23:30 | ED_ITS ---
HPI - Nausea/Vomiting/Diarrhea General Chief complaint: Nausea/Vomiting/Diarrhea Stated complaint: dehydration Time Seen by Provider: 03/18/24 23:05 Source: patient and EMS Mode of arrival: EMS History of Present Illness HPI Narrative: 68-year-old male with history of metastatic prostate cancer, first diagnosed 2 years ago, metastatic to bone, had previous radiation therapy, stopped 1 oral chemotherapy regimen a proximally December 2023, and has stopped Lupron therapy January 2024, still sees oncologist [facility] Dr. Brantley but no other treatment regimens anticipated. He apparently does not yet qualify for palliative care, not on hospice services. He has recent 3 days decreased oral intake, feels dehydrated, has had numerous previous episodes of dehydration, and is requesting IV fluids. He has not had nausea and vomiting. He does not have diarrhea. No black or red stools. He has ongoing chronic pain, predominantly in the back, for which she takes chronic pain medications. His chronic pain is unchanged. He denies fevers chills. He denies chest pain shortness of breath. He denies anterior abdominal pain. He denies flank area pain, pain on urination, change in his urine. 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 Related Data Home Medications Medication Instructions Recorded Confirmed tamsulosin 0.4 mg capsule 0.4 mg PO DAILY 09/15/21 03/06/24 atorvastatin 80 mg tablet 80 mg PO BEDTIME 07/30/22 03/06/24 hydrocortisone 2.5 % topical cream 1 applic topical DAILY 07/30/22 03/06/24 gabapentin 300 mg capsule 300 mg PO DAILY 01/03/24 03/06/24 aspirin 81 mg tablet,delayed 81 mg PO DAILY 03/06/24 03/06/24 release Previous Rx's Medication Instructions Recorded promethazine 25 mg rectal 25 mg HI Q4-6H PRN nausea and 11/18/20 suppository vomiting #12 ea duloxetine 20 mg capsule,delayed 20 mg PO DAILY #90 caps 08/01/23 release (Cymbalta) lisinopril 20 mg tablet 20 mg PO BID #180 tabs 09/07/23 metformin 500 mg tablet 500 mg PO BID #180 tabs 09/26/23 omeprazole 40 mg capsule,delayed 40 mg PO BID #180 caps 09/26/23 release metoprolol succinate 100 mg 100 mg PO BID #180 tabs 09/27/23 tablet,extended release 24 hr oxycodone 5 mg tablet 10 mg (2 x 5 mg) PO Q4H PRN pain 02/23/24 #360 tabs potassium chloride 10 mEq 10 meq PO DAILY #90 caps 02/28/24 capsule,extended release cyclobenzaprine 5 mg tablet 5 mg PO TID PRN Spasms #60 tabs 03/02/24 ondansetron 4 mg disintegrating 4 mg sublingual Q6HR PRN Nausea, 03/05/24 tablet 1st line 14 days #30 tabs Allergies Allergy/AdvReac Type Severity Reaction Status Date / Time No Known Drug Allergies Allergy Verified 03/06/24 09:08 Review of Systems Review of Systems Narrative: per HPI Patient History Medical History Hematuria Uncomplicated opioid dependence Generalized anxiety disorder Cannabis abuse Prostate cancer (~05/2019) Paroxysmal A-fib Transaminitis Kidney stones Diverticulosis of large intestine (03/31/12) Chronic hepatitis Coronary artery disease involving [place] coronary artery of [place] heart without angina pectoris (~2006) Essential hypertension Mixed hyperlipidemia Surgical History H/O heart artery stent (~2006) Hx of inguinal hernia surgery (~03/07/14) Hx of inguinal hernia surgery (~09/20/08) Status post laminectomy History of angioplasty (~12/2006) Social History marital status: unmarried,single number of children: 3 household members: friend(s) and other lives independently: Yes caregiver/support person: No housing: house pets and animals: No education level: high school occupational status: other 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/hoahaoism: None leisure activities: music, fishing and other Smoking Status: Current every day smoker Tobacco: How many years used: 56 Smokeless tobacco user: other quit status: has quit before second hand exposure: Yes (On farmland/Boat.) alcohol intake: former substance use type: does not use and marijuana eating out: rarely or never Type(s) of exercise: normal ROM and activity and additional Smoking Status: Current every day smoker alcohol intake frequency: 0-2 drinks per day Alcohol type: beer Substance Use Type: marijuana Exam Narrative Exam Narrative: GENERAL: Well-developed patient, in mild distress. HEAD: Atraumatic. Normocephalic. EYES: Pupils equal round and reactive. Extraocular motions intact. No scleral icterus. No injection or drainage. ENT: Nose without bleeding, purulent drainage. Throat without erythema, tonsillar hypertrophy or exudate. Airway patent. NECK: Trachea midline. Non tender CARDIOVASCULAR: Regular rate and rhythm without murmurs, gallops, or rubs. RESPIRATORY: Clear to auscultation. Breath sounds equal bilaterally. No wheezes, rales, or rhonchi. GASTROINTESTINAL: Abdomen soft, non-tender, nondistended. EXTREMITIES: No edema or joint tenderness. BACK: Nontender without deformity or crepitance. No flank tenderness. NEURO: AOx3. SKIN: No rash or erythema of visible areas Initial Vital Signs Initial Vital Signs: Vital Signs Pulse Rate 78 03/18/24 22:18 Pulse Oximetry 98 03/18/24 22:18 Course Orders Ordered: ED Orders 03/18/24 22:38 Complete Blood Count AUTO DIFF Stat Comprehensive Metabolic Panel Stat Lipase Stat Discontinued Medications Hydromorphone HCl (Hydromorphone 0.5 Mg Inj) 0.5 mg IV NOW ONE Stop: 03/18/24 22:39 Last Admin: 03/18/24 22:43 Dose: 0.5 mg Documented By: MEGGAN Hydromorphone HCl (Hydromorphone 0.5 Mg Inj) 0.5 mg IV NOW ONE Stop: 03/19/24 00:21 Last Admin: 03/19/24 00:26 Dose: 0.5 mg Documented By: SERGIO Sodium Chloride (Normal Saline 0.9%) 1,000 mls @ 1,000 mls/hr IV BOLUS ONE Stop: 03/18/24 23:10 Last Infusion: 03/19/24 00:02 Dose: Infused Documented By: Admin: 03/18/24 22:32 Dose: 1,000 mls/hr Documented By: MEGGAN Sodium Chloride (Normal Saline 0.9%) 1,000 mls @ 1,000 mls/hr IV BOLUS ONE Stop: 03/19/24 01:19 Last Infusion: 03/19/24 01:55 Dose: Infused Documented By: Admin: 03/19/24 00:25 Dose: 1,000 mls/hr Documented By: SERGIO Ondansetron HCl (Ondansetron 4 Mg/2 Ml Inj) 4 mg IV NOW ONE Stop: 03/18/24 22:12 Last Admin: 03/18/24 22:33 Dose: 4 mg Documented By: MEGGAN Ondansetron HCl (Ondansetron 4 Mg/2 Ml Inj) 4 mg IV NOW ONE Stop: 03/19/24 01:27 Last Admin: 03/19/24 01:30 Dose: 4 mg Documented By: AGUSTIN Ondansetron HCl (Ondansetron 4 Mg Odt Prepack) 1 bottle MISC DIRECTED ONE Stop: 03/19/24 01:27 Last Admin: 03/19/24 01:32 Dose: 1 bottle Documented By: AGUSTIN Vital Signs Vital signs: Vital Signs - 8 hr 03/18/24 22:18 03/18/24 22:19 03/18/24 22:19 Temperature Pulse Rate 78 78 Respiratory Rate Blood Pressure 190/112 H Pulse Oximetry 98 99 Oxygen Delivery Method 03/18/24 22:23 03/18/24 22:30 03/18/24 22:30 Temperature 98.1 F Pulse Rate 78 75 Respiratory Rate 16 16 Blood Pressure 190/112 H 175/102 H Pulse Oximetry 99 99 Oxygen Delivery Method Room Air Room Air 03/18/24 23:00 03/18/24 23:01 03/18/24 23:01 Temperature Pulse Rate 80 82 Respiratory Rate 9 L 9 L Blood Pressure 126/77 Pulse Oximetry 97 99 Oxygen Delivery Method 03/18/24 23:30 03/18/24 23:30 03/19/24 00:00 Temperature Pulse Rate 74 Respiratory Rate 15 Blood Pressure 114/71 163/97 H Pulse Oximetry 98 Oxygen Delivery Method Room Air 03/19/24 00:00 03/19/24 00:30 03/19/24 00:30 Temperature Pulse Rate 74 73 Respiratory Rate 13 12 Blood Pressure 167/101 H Pulse Oximetry 99 99 Oxygen Delivery Method Room Air 03/19/24 01:00 03/19/24 01:00 03/19/24 01:30 Temperature Pulse Rate 80 Respiratory Rate 13 Blood Pressure 113/69 114/71 Pulse Oximetry 100 Oxygen Delivery Method 03/19/24 01:30 Temperature Pulse Rate 74 Respiratory Rate 11 L Blood Pressure Pulse Oximetry 98 Oxygen Delivery Method MDM - Nausea/Vomiting/Diarrhea Lab Data Attestation: I reviewed the patient's lab results. 03/18/24 22:38 03/18/24 22:38 Labs: Lab Results 03/18/24 Range/Units 22:38 WBC 7.7 (4.5-11.0) X10^3/uL RBC 4.53 (4.5-5.9) X10^6/uL Hgb 13.7 (13.5-17.5) g/dL Hct 39.4 L (41-53) % MCV 86.8 (80-100) fL MCH 30.3 (26-34) PG MCHC 34.9 (30-36) % RDW 15.6 H (11.6-14.8) % Plt Count 173 (150-400) X10^3/uL Neut % (Auto) 76.6 H (50-75) % Lymph % (Auto) 14.2 L (25-40) % Dent % (Auto) 8.9 (3-14) % Eos % (Auto) 0.0 L (2-4) % Baso % (Auto) 0.3 (0-2) % Neut # (Auto) 5900 (2340-5532) /uL Lymph # (Auto) 1100 (3775-8807) /uL Dent # (Auto) 700 (0-900) /uL Eos # (Auto) 0 (0-450) /uL Baso # (Auto) 0 (0-100) /uL Sodium 138 (137-145) mmol/L Potassium 4.0 (3.4-5.1) mmol/L Chloride 103 (98-107) mmol/L Carbon Dioxide 21 L (22-32) mmol/L BUN 22 H (9-20) mg/dL Creatinine 0.80 (0.66-1.25) mg/dL Estimated GFR > 60 (>60) mL/min BUN/Creatinine Ratio 27.5 H (6-22) Glucose 257 H (80-110) mg/dL Calcium 10.3 H (8.4-10.2) mg/dL Total Bilirubin 1.4 H (0.2-1.3) mg/dL AST 149 H (17-59) IU/L ALT 143 H (<50) IU/L Alkaline Phosphatase 147 H (38-126) U/L Total Protein 9.7 H (6.3-8.2) g/dL Albumin 5.0 (3.5-5.0) g/dL Globulin 4.7 H (1.7-4.1) g/dL Albumin/Globulin Ratio 1.1 (1.0-2.8) Lipase 45 (23-300) U/L MDM Narrative Medical decision making narrative: 68-year-old male with history of metastatic prostate cancer, stopping therapy January 2024, not yet a candidate for palliative care, decreased oral intake last 3 days, feels dehydrated, has felt similarly before, requests IV fluids. IV Dilaudid for pain control. Labs pending. Labs largely unremarkable, mild transaminitis similar to prior study ranges, T bili 1.4 noted. Alkaline phosphatase elevated, consistent with bony metastases. Calcium slight elevation over normal range only. IV fluid bolus given. 2 L given per patient request. IV Dilaudid repeated per patient request Improved, home with family, encouraged to drink plenty of fluids. Follow up with primary care provider on with oncology as planned. Return precautions discussed Critical Care Time Critical Care Time Critical Care Time: Yes Total Critical Care Time: 31 Attestation: The high probability of a clinically significant, sudden or life threatening deterioration of the [cardiovascular, abdominopelvic, gastrointestinal] system(s) required my full and direct attention, intervention and personal management. The aggregate critical care time was [31] minutes. This time is in addition to time spent performing reported procedures but includes the following: [x] Data Review and interpretation [x] Patient assessment and monitoring of vital signs [x] Documentation [x] Medication orders and management Discharge Plan Departure Patient Disposition: Home Clinical Impression: Generalized weakness, Dehydration, History of prostate cancer Activity Restrictions/Additional Instructions: History of metastatic prostate cancer, most recently stopping leuprolide and all other therapies in January 2024, not yet a candidate for palliative care services, though there is no active treatment currently for prostate cancer in progress. Decreased oral intake last 2-3 days, suspected dehydration, which has happened numerous times before. IV fluids given, improved symptoms. Screening labs stable. You felt better after IV fluid hydration. Recheck in the next couple of days with your regular provider. Return to this/nearest emergency department for any change worsening symptoms or any concerns prior Prescriptions: No Action duloxetine [Cymbalta] 20 mg capsule,delayed release(DR/EC) 20 mg PO DAILY Qty: 90 3RF lisinopril 20 mg tablet 20 mg PO BID Qty: 180 3RF metformin 500 mg tablet 500 mg PO BID Qty: 180 3RF omeprazole 40 mg capsule,delayed release(DR/EC) 40 mg PO BID Qty: 180 3RF metoprolol succinate 100 mg tablet extended release 24 hr 100 mg PO BID Qty: 180 3RF oxycodone 5 mg tablet 10 mg PO Q4H MDD 7 tabs PRN (Reason: pain) Qty: 360 0RF potassium chloride 10 mEq capsule, extended release 10 meq PO DAILY Qty: 90 3RF cyclobenzaprine 5 mg tablet 5 mg PO TID PRN (Reason: Spasms) Qty: 60 0RF ondansetron 4 mg tablet,disintegrating 4 mg sublingual Q6HR PRN (Reason: Nausea, 1st line) 14 Days Qty: 30 0RF atorvastatin 80 mg tablet 80 mg PO BEDTIME hydrocortisone 2.5 % cream 1 applic topical DAILY Patient Comments: APPLY TO FACE AND BODY TWICE DAILY FOR 2 WEEKS THEN NEEDED gabapentin 300 mg capsule 300 mg PO DAILY Patient Comments: TAKE 1 OR 2 CAPSULES BY MOUTH NIGHTLY aspirin 81 mg tablet,delayed release (DR/EC) 81 mg PO DAILY tamsulosin 0.4 mg capsule 0.4 mg PO DAILY Patient Comments: take 1 capsule by mouth once daily promethazine 25 mg suppository 25 mg HI Q4-6H PRN (Reason: nausea and vomiting) Qty: 12 0RF Referrals: Khang Vasques MD [Primary Care Provider] - Stand Alone Forms: Patient Portal/API
[2024-03-19] VITALS: BP 163/97; PULSE 74; RESP 13; O2SAT 99
[2024-03-19] MEDS: SODIUM CHLORIDE 0.9% 1,000 ML 1000 ML IV (00:25)
[2024-03-19] MEDS: HYDROMORPHONE 0.5 MG INJ IV (00:26)
[2024-03-19 00:30] VITALS: BP 167/101; PULSE 73; RESP 12; O2SAT 99
[2024-03-19 01:00] VITALS: BP 113/69; PULSE 80; RESP 13; O2SAT 100
[2024-03-19 01:30] VITALS: BP 114/71; PULSE 74; RESP 11; O2SAT 98
[2024-03-19] MEDS: ONDANSETRON 4 MG/2 ML INJ IV (01:30)
[2024-03-19] MEDS: ONDANSETRON 4 MG ODT PREPACK 1 BOTTLE MISC (01:32)
== END 2024-03-19 01:52 | disposition home or self-care (01) ==
PROVIDERS: Emergency Provider Emergency Medicine; PCP Internal Medicine
DX: E86.0 Dehydration (principal); R53.1 Weakness; Z85.46 Personal history of malignant neoplasm of prostate; F17.200 Nicotine dependence, unspecified, uncomplicated
CPT/HCPCS: 36415; 80053; 83690; 85025; 96374; 96375; 96376; 99284; J1170; J2405

== ENCOUNTER 2024-06-18 17:20 | Emergency (ER) | payer OTHER, SELFPAY ==
[2023-11-10 18:58] VITALS: BMI 20.3
[2024-06-18] VITALS (13 sets, daily range): BP systolic 73–148; BP diastolic 51–104; PULSE 74–91; RESP 10–16; TEMP 37; O2SAT 97–99; BMI 20.9
--- NOTE | 2024-06-18 18:05 | DI.CT.S_ITS ---
PROCEDURE: CT ABDOMEN PELVIS W CON INDICATIONS: Generalized abdominal pain, history of prostate cancer const TECHNIQUE: After the administration of intravenous contrast, axial sections acquired from the lung bases to the pubic symphysis. Coronal and sagittal reformats were performed. For radiation dose reduction, the following was used: automated exposure control, adjustment of mA and/or kV according to patient size. COMPARISON: [facility], CT, CT ABDOMEN PELVIS W CON, 11/10/2023, 16:22. FINDINGS: Image quality: Diagnostic. Lower Chest: No significant findings. ABDOMEN: Liver: No solid mass. Benign-appearing calcifications are again seen in right hepatic dome unchanged from prior study. Gallbladder: No radiopaque gallstones or wall thickening. Biliary ducts: No biliary dilation. Pancreas: No ductal dilation. Spleen: Size is within normal limits. Adrenal Glands: No adrenal nodules. Kidneys and Ureters: No hydronephrosis. No solid mass. No complex renal cystic lesion which requires follow up. Stomach and Bowel: There is no bowel obstruction. No gastric or small bowel wall thickening. Questionable diffuse thickening involving descending colon and sigmoid colon with narrowing of the lumen. Extensive sigmoid diverticulosis is also seen. No abscess collection. No extra luminal air is seen to suggest perforation. No significant mesenteric fat stranding. Peritoneum: No abnormal intraperitoneal fluid. No free air. Ventral Wall: No significant ventral hernia. Abdominal Nodes: No retroperitoneal or mesenteric adenopathy by size criteria. Vessels: Aorta and inferior vena cava are normal in size. PELVIS: Pelvic Organs: Unremarkable. Bladder: No bladder wall thickening, accounting for underdistention. Pelvic Nodes: No enlarged lymph nodes. Miscellaneous: No inguinal hernias are seen. Bones: No aggressive osseous abnormality. Sclerotic area involving right sacrum is again seen unchanged from previous study without associated cortical disruption or abnormal periosteal reaction. This is best seen on series 2, image 96. Sclerotic areas also seen in S2 vertebral body unchanged from prior study. IMPRESSION: 1. Questionable left-sided colonic wall thickening and narrowing of the lumen concerning for infectious inflammatory colitis. Underlying neoplastic process cannot be entirely excluded. GI correlation and follow-up is recommended. Sigmoid diverticulosis without CT evidence of acute diverticulitis. 2. No bowel obstruction. No free fluid or free air. 3. Stable sclerotic areas involving right sacrum and L2 body unchanged from prior study and may represent benign process versus treated metastatic bony lesion given patient's history. No pathologic fracture. No new suspicious bony lesions. Dictated by: Hosea Vogel M.D. on 06/18/2024 at 19:17 Approved by: Hosea Vogel M.D. on 06/18/2024 at 19:21
[2024-06-18 18:08] LABS: Add Manual Diff / Slide Review NO; Basophils Absolute Auto 0 /uL (0-100); Basophils Percent Auto 0.1 % (0-2); Eosinophils Absolute Auto 0 /uL (0-450); Hematocrit 36.6 % (41-53); Hemoglobin 12.5 g/dL (13.5-17.5); Lymphocytes Absolute Auto 1200 /uL (1100-4500); Lymphocytes Percent Auto 10.4 % (25-40); Mean Corpuscular HGB Conc 34.2 % (30-36); Mean Corpuscular Hemoglobin 31.7 PG (26-34); Mean Corpuscular Volume 92.7 fL (80-100); Monocytes Absolute Auto 1700 /uL (0-900); Monocytes Percent Auto 14.8 % (3-14); Neutrophils Absolute Auto 8400 /uL (1500-7000); Neutrophils Percent Auto 74.7 % (50-75); Platelet Count 167 X10^3/uL (150-400); Red Blood Cell Count 3.95 X10^6/uL (4.5-5.9); Red Cell Distribution Width 15.8 % (11.6-14.8); White Blood Cell Count 11.3 X10^3/uL (4.5-11.0)
[2024-06-18] MEDS: ONDANSETRON 4 MG/2 ML INJ IV (18:10)
[2024-06-18] MEDS: HYDROMORPHONE 1 MG INJ IV (18:10)
[2024-06-18] MEDS: SODIUM CHLORIDE 0.9% 500 ML IV (18:20)
--- NOTE | 2024-06-18 18:24 | ED.GENADULT ---
HPI - General Adult General Chief complaint: Abdominal Pain Stated complaint: abd pain/ vomiting Time Seen by Provider: 06/18/24 18:03 Source: patient and EMS Mode of arrival: EMS History of Present Illness HPI narrative: Patient is a 68-year-old male. History of prostate cancer. Is not currently undergoing treatment for the prostate cancer. He was in the palliative Care stage of his treatment. He was here for evaluation of abdominal discomfort and vomiting. He states that he has issues with constipation because he takes chronic opioids because of his cancer pain. He does take stool softeners on a daily basis. He felt like he was getting constipated. He did have a large bowel movement yesterday and after that bowel movement has had consistent left lower quadrant abdominal discomfort. He does sometimes have issues with urination but does not feel like any of that has changed now. He was also been vomiting. No fevers. Related Data Home Medications Medication Instructions Recorded Confirmed tamsulosin 0.4 mg capsule 0.4 mg PO DAILY 09/15/21 06/08/24 atorvastatin 80 mg tablet 80 mg PO BEDTIME 07/30/22 06/08/24 apixaban 2.5 mg tablet (Eliquis) 2.5 mg PO BID 03/29/24 06/08/24 clopidogrel 75 mg tablet 75 mg PO DAILY 03/29/24 06/08/24 nitroglycerin 0.4 mg sublingual 0.4 mg sublingual Q5-15M PRN 03/29/24 06/08/24 tablet ondansetron HCl 4 mg tablet 4 mg PO Q8H PRN 03/29/24 06/08/24 sennosides 8.6 mg tablet (senna) 8.6 mg PO DAILY constipation 03/29/24 06/08/24 spironolactone 25 mg tablet 25 mg PO DAILY 03/29/24 06/08/24 isosorbide mononitrate 30 mg 60 mg PO DAILY 04/27/24 06/08/24 tablet,extended release 24 hr Previous Rx's Medication Instructions Recorded promethazine 25 mg rectal 25 mg WI Q4-6H PRN nausea and 11/18/20 suppository vomiting #12 ea duloxetine 20 mg capsule,delayed 20 mg PO DAILY #90 caps 08/01/23 release (Cymbalta) lisinopril 20 mg tablet 20 mg PO BID #180 tabs 09/07/23 metformin 500 mg tablet 500 mg PO BID #180 tabs 09/26/23 metoprolol succinate 100 mg 100 mg PO BID #180 tabs 09/27/23 tablet,extended release 24 hr potassium chloride 10 mEq 10 meq PO DAILY #90 caps 02/28/24 capsule,extended release cyclobenzaprine 5 mg tablet 5 mg PO TID PRN Spasms #60 tabs 03/02/24 naloxone 4 mg/actuation nasal 4 mg intranasal Q2M #2 ea 03/29/24 spray (Narcan) morphine 10 mg/5 mL oral solution 10 mg (5 mL) PO Q6H PRN pain #100 04/27/24 mL morphine 15 mg immediate release 7.5 - 15 mg (0.5 - 1 x 15 mg) PO 06/08/24 tablet Q4H PRN chest pain/bone pain #120 tabs Allergies Allergy/AdvReac Type Severity Reaction Status Date / Time No Known Drug Allergies Allergy Verified 06/08/24 09:02 Review of Systems Review of Systems ROS Unobtainable: All systems reviewed & are unremarkable except as noted in HPI and below Patient History Medical History Hematuria Uncomplicated opioid dependence Generalized anxiety disorder Cannabis abuse Prostate cancer (~05/2019) Paroxysmal A-fib Transaminitis Kidney stones Diverticulosis of large intestine (03/31/12) Chronic hepatitis Coronary artery disease involving [place] coronary artery of [place] heart without angina pectoris (~2006) Essential hypertension Mixed hyperlipidemia Surgical History H/O heart artery stent (~2006) Hx of inguinal hernia surgery (~03/07/14) Hx of inguinal hernia surgery (~09/20/08) Status post laminectomy History of angioplasty (~12/2006) Social History marital status: unmarried,single number of children: 3 household members: friend(s) and other lives independently: Yes caregiver/support person: No housing: house pets and animals: No education level: high school occupational status: other 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/anabaptist: None leisure activities: music, fishing and other Smoking Status: Former smoker Tobacco: How many years used: 56 Smokeless tobacco user: other quit status: has quit before second hand exposure: Yes (On farm[place]/Boat.) alcohol intake: former substance use type: does not use and marijuana eating out: rarely or never Type(s) of exercise: normal ROM and activity and additional Smoking Status: Former smoker alcohol intake frequency: 0-2 drinks per day Alcohol type: beer Substance Use Type: marijuana Exam Initial Vital Signs Initial Vital Signs: Vital Signs Temperature 98.6 F 06/18/24 17:21 Pulse Rate 85 06/18/24 17:21 Respiratory Rate 16 06/18/24 17:21 Blood Pressure 138/98 H 06/18/24 17:21 Pulse Oximetry 99 06/18/24 17:21 Oxygen Delivery Method Room Air 06/18/24 17:21 Const General: cooperative and frail appearing HENMT Head: normal to inspection and normocephalic Resp Effort & Inspection: normal respiratory effort Cardio Rate: regular rate GI Inspection: normal to inspection Palpation: No soft, No firm and tender (Left lower quadrant) Neuro General: patient alert and patient awake Extrem General: normal to inspection and capillary refill normal Course Orders Ordered: ED Orders 06/18/24 17:50 Complete Blood Count AUTO DIFF Stat Comprehensive Metabolic Panel Stat Lipase Stat 06/18/24 18:05 CT abdomen pelvis w con Stat 06/18/24 18:40 Urine Microscopic Stat Discontinued Medications Hydromorphone HCl (Hydromorphone 1 Mg Inj) 1 mg IV NOW ONE Stop: 06/18/24 18:05 Last Admin: 06/18/24 18:10 Dose: 1 mg Documented By: SERGIO Hydromorphone HCl (Hydromorphone 1 Mg Inj) 0.5 mg IV NOW ONE Stop: 06/18/24 19:20 Last Admin: 06/18/24 19:25 Dose: 0.5 mg Documented By: JULIEN Sodium Chloride (Normal Saline 0.9%) 500 mls @ 500 mls/hr IV BOLUS ONE Stop: 06/18/24 19:03 Last Admin: 06/18/24 18:34 Dose: Not Given Documented By: SERGIO Sodium Chloride (Normal Saline 0.9%) 500 mls @ 500 mls/hr IV BOLUS ONE Stop: 06/18/24 19:18 Last Infusion: 06/18/24 19:26 Dose: Infused Documented By: Admin: 06/18/24 18:20 Dose: 500 mls/hr Documented By: SERGIO Sodium Chloride (Normal Saline 0.9%) 500 mls @ 1,000 mls/hr IV BOLUS ONE Stop: 06/18/24 20:38 Last Infusion: 06/18/24 20:59 Dose: Infused Documented By: Admin: 06/18/24 20:26 Dose: 1,000 mls/hr Documented By: SERGIO Morphine Sulfate (Morphine Er 15 Mg Tablet) 7.5 mg PO NOW ONE Stop: 06/18/24 20:49 Morphine Sulfate (Morphine Ir 15 Mg Tablet) 7.5 mg PO NOW ONE Stop: 06/18/24 20:57 Last Admin: 06/18/24 21:07 Dose: 7.5 mg Documented By: SERGIO Ondansetron HCl (Ondansetron 4 Mg/2 Ml Inj) 4 mg IV NOW PRN PRN Reason: Nausea And Vomiting Last Admin: 06/18/24 18:10 Dose: 4 mg Documented By: SERGIO Ondansetron HCl (Ondansetron 4 Mg Odt) 4 mg PO NOW PRN PRN Reason: Nausea And Vomiting Vital Signs Vital signs: Vital Signs - 8 hr 06/18/24 17:21 06/18/24 17:26 06/18/24 17:30 Temperature 98.6 F Pulse Rate 85 86 88 Respiratory Rate 16 10 L 12 Blood Pressure 138/98 H 138/98 H 148/104 H Pulse Oximetry 99 99 99 Oxygen Delivery Method Room Air 06/18/24 18:00 06/18/24 18:30 06/18/24 19:01 Temperature Pulse Rate 91 H 90 90 Respiratory Rate 12 10 L 10 L Blood Pressure 92/62 Pulse Oximetry 98 98 98 Oxygen Delivery Method Room Air 06/18/24 19:30 06/18/24 19:35 06/18/24 19:37 Temperature Pulse Rate 87 87 90 Respiratory Rate 10 L 12 14 Blood Pressure 77/53 L 79/54 L 77/53 L Pulse Oximetry 97 98 97 Oxygen Delivery Method Room Air 06/18/24 20:00 06/18/24 20:23 06/18/24 20:30 Temperature Pulse Rate 84 83 74 Respiratory Rate 10 L 15 13 Blood Pressure 73/51 L 84/60 L 94/62 Pulse Oximetry 97 98 99 Oxygen Delivery Method Room Air 06/18/24 21:09 Temperature Pulse Rate 80 Respiratory Rate 14 Blood Pressure 89/58 L Pulse Oximetry 99 Oxygen Delivery Method Medical Decision Making Lab Data Lab results reviewed: Yes I reviewed the patient's lab results. 06/18/24 17:50 06/18/24 17:50 Labs: Lab Results 06/18/24 06/18/24 Range/Units 17:50 18:40 WBC 11.3 H (4.5-11.0) X10^3/uL RBC 3.95 L (4.5-5.9) X10^6/uL Hgb 12.5 L (13.5-17.5) g/dL Hct 36.6 L (41-53) % MCV 92.7 (80-100) fL MCH 31.7 (26-34) PG MCHC 34.2 (30-36) % RDW 15.8 H (11.6-14.8) % Plt Count 167 (150-400) X10^3/uL Neut % (Auto) 74.7 (50-75) % Lymph % (Auto) 10.4 L (25-40) % Richardson % (Auto) 14.8 H (3-14) % Eos % (Auto) 0.0 L (2-4) % Baso % (Auto) 0.1 (0-2) % Neut # (Auto) 8400 H (1674-3411) /uL Lymph # (Auto) 1200 (1101-9278) /uL Richardson # (Auto) 1700 H (0-900) /uL Eos # (Auto) 0 (0-450) /uL Baso # (Auto) 0 (0-100) /uL Sodium 139 (137-145) mmol/L Potassium 4.4 (3.4-5.1) mmol/L Chloride 104 (98-107) mmol/L Carbon Dioxide 21 L (22-32) mmol/L BUN 43 H (9-20) mg/dL Creatinine 1.22 (0.66-1.25) mg/dL Estimated GFR > 60 (>60) mL/min BUN/Creatinine Ratio 35.2 H (6-22) Glucose 261 H (80-110) mg/dL Calcium 10.2 (8.4-10.2) mg/dL Total Bilirubin 0.8 (0.2-1.3) mg/dL AST 73 H (17-59) IU/L ALT 91 H (<50) IU/L Alkaline Phosphatase 84 (38-126) U/L Total Protein 8.3 H (6.3-8.2) g/dL Albumin 4.7 (3.5-5.0) g/dL Globulin 3.6 (1.7-4.1) g/dL Albumin/Globulin Ratio 1.3 (1.0-2.8) Lipase 68 (23-300) U/L Urine RBC 0-1/hpf (0-5/HPF) Urine WBC 0-1/hpf (0-5/HPF) Ur Squamous Epith Cells 0-1 /hpf (0-5/HPF) Urine Bacteria Occasional (0-1) (None) Urine Mucus 1+ H (Negative) Ur Culture Indicated? Cult not indicated Vol Urine Centrifuged 10ml (spun) Urine Dip Bedside Urine Glucose 250 mg/dl Bedside Urine Bilirubin - Negative Bedside Urine Ketone +/- 5 Urine Specific [place] 1.030 Bedside Urine Occult Blood ++ Bedside Urine pH 5.0 Bedside Urine Protein ++ 100 Bedside Urine Urobilinogen - Negative Bedside Urine Nitrite - Negative Bedside Urine Leukocytes - Negative Esterase Point of care testing: Urine Dip Bedside Urine Glucose 250 mg/dl Bedside Urine Bilirubin - Negative Bedside Urine Ketone +/- 5 Urine Specific [place] 1.030 Bedside Urine Occult Blood ++ Bedside Urine pH 5.0 Bedside Urine Protein ++ 100 Bedside Urine Urobilinogen - Negative Bedside Urine Nitrite - Negative Bedside Urine Leukocytes - Negative Esterase Imaging Data CT scan - abdomen/pelvis: Radiologist's Impression: PROCEDURE: CT ABDOMEN PELVIS W CON INDICATIONS: Generalized abdominal pain, history of prostate cancer const TECHNIQUE: After the administration of intravenous contrast, axial sections acquired from the lung bases to the pubic symphysis. Coronal and sagittal reformats were performed. For radiation dose reduction, the following was used: automated exposure control, adjustment of mA and/or kV according to patient size. COMPARISON: [facility], CT, CT ABDOMEN PELVIS W CON, 11/10/2023, 16:22. FINDINGS: Image quality: Diagnostic. Lower Chest: No significant findings. ABDOMEN: Liver: No solid mass. Benign-appearing calcifications are again seen in right hepatic dome unchanged from prior study. Gallbladder: No radiopaque gallstones or wall thickening. Biliary ducts: No biliary dilation. Pancreas: No ductal dilation. Spleen: Size is within normal limits. Adrenal Glands: No adrenal nodules. Kidneys and Ureters: No hydronephrosis. No solid mass. No complex renal cystic lesion which requires follow up. Stomach and Bowel: There is no bowel obstruction. No gastric or small bowel wall thickening. Questionable diffuse thickening involving descending colon and sigmoid colon with narrowing of the lumen. Extensive sigmoid diverticulosis is also seen. No abscess collection. No extra luminal air is seen to suggest perforation. No significant mesenteric fat stranding. Peritoneum: No abnormal intraperitoneal fluid. No free air. Ventral Wall: No significant ventral hernia. Abdominal Nodes: No retroperitoneal or mesenteric adenopathy by size criteria. Vessels: Aorta and inferior vena cava are normal in size. PELVIS: Pelvic Organs: Unremarkable. Bladder: No bladder wall thickening, accounting for underdistention. Pelvic Nodes: No enlarged lymph nodes. Miscellaneous: No inguinal hernias are seen. Bones: No aggressive osseous abnormality. Sclerotic area involving right sacrum is again seen unchanged from previous study without associated cortical disruption or abnormal periosteal reaction. This is best seen on series 2, image 96. Sclerotic areas also seen in S2 vertebral body unchanged from prior study. IMPRESSION: 1. Questionable left-sided colonic wall thickening and narrowing of the lumen concerning for infectious inflammatory colitis. Underlying neoplastic process cannot be entirely excluded. GI correlation and follow-up is recommended. Sigmoid diverticulosis without CT evidence of acute diverticulitis. 2. No bowel obstruction. No free fluid or free air. 3. Stable sclerotic areas involving right sacrum and L2 body unchanged from prior study and may represent benign process versus treated metastatic bony lesion given patient's history. No pathologic fracture. No new suspicious bony lesions. [facility] Narrative Medical decision making narrative: Patient was not retaining urine. CT scan does show colitis without signs of diverticulitis or bowel obstruction. After pain medication he did have some episodes of hypotension but was not symptomatic from this. It was now tolerating oral intake. I had a discussion with him of his symptoms. We discussed things that he can try at home to help with his constipation. We discussed return precautions and follow-up instructions. He expressed understanding and agreement with plan. Discharge Plan Departure Patient Disposition: Home Clinical Impression: Colitis Instructions: DI for Colitis Activity Restrictions/Additional Instructions: Continue to take all of your medications as directed. Do recommend a bland diet for the next couple days then after that you can eat whatever you can tolerate. Contact your primary doctor for follow-up. Return to the emergency department for new or worsening symptoms. Prescriptions: No Action duloxetine [Cymbalta] 20 mg capsule,delayed release(DR/EC) 20 mg PO DAILY Qty: 90 3RF lisinopril 20 mg tablet 20 mg PO BID Qty: 180 3RF metformin 500 mg tablet 500 mg PO BID Qty: 180 3RF metoprolol succinate 100 mg tablet extended release 24 hr 100 mg PO BID Qty: 180 3RF potassium chloride 10 mEq capsule, extended release 10 meq PO DAILY Qty: 90 3RF cyclobenzaprine 5 mg tablet 5 mg PO TID PRN (Reason: Spasms) Qty: 60 0RF atorvastatin 80 mg tablet 80 mg PO BEDTIME morphine 15 mg tablet 7.5 - 15 mg PO Q4H MDD 60mg PRN (Reason: chest pain/bone pain) Qty: 120 0RF Eliquis 2.5 mg tablet 2.5 mg PO BID clopidogrel 75 mg tablet 75 mg PO DAILY spironolactone 25 mg tablet 25 mg PO DAILY sennosides [senna] 8.6 mg tablet 8.6 mg PO DAILY nitroglycerin 0.4 mg tablet, sublingual 0.4 mg sublingual Q5-15M PRN ondansetron HCl 4 mg tablet 4 mg PO Q8H PRN naloxone [Narcan] 4 mg/actuation spray,non-aerosol 4 mg intranasal Q2M Qty: 2 8RF Rx Instructions: spray 1 dose into ONE nostril; alternate nostrils w each dose until help arrives isosorbide mononitrate 30 mg tablet extended release 24 hr 60 mg PO DAILY morphine 10 mg/5 mL solution 10 mg PO Q6H PRN (Reason: pain) Qty: 100 0RF tamsulosin 0.4 mg capsule 0.4 mg PO DAILY Patient Comments: take 1 capsule by mouth once daily promethazine 25 mg suppository 25 mg WI Q4-6H PRN (Reason: nausea and vomiting) Qty: 12 0RF Referrals: Khang Vasques MD [Primary Care Provider] - Stand Alone Forms: Patient Portal/API
[2024-06-18 18:35] LABS: Alanine Aminotransferase 91 IU/L (<50); Albumin 4.7 g/dL (3.5-5.0); Albumin Globulin Ratio 1.3 (1.0-2.8); Alkaline Phosphatase 84 U/L (38-126); Aspartate Aminotransferase 73 IU/L (17-59); BUN Creatinine Ratio 35.2 (6-22); Bilirubin Total 0.8 mg/dL (0.2-1.3); Blood Urea Nitrogen 43 mg/dL (9-20); Calcium 10.2 mg/dL (8.4-10.2); Carbon Dioxide 21 mmol/L (22-32); Chloride 104 mmol/L (98-107); Estimated Glomerular Filt Rate > 60 mL/min (>60); Globulin 3.6 g/dL (1.7-4.1); Glucose 261 mg/dL (80-110); HEMOLYSIS 18 (0-50); Lipase 68 U/L (23-300); Potassium 4.4 mmol/L (3.4-5.1); Sodium 139 mmol/L (137-145); Total Protein 8.3 g/dL (6.3-8.2)
[2024-06-18 19:06] LABS: Bacteria Urine Occasional (0-1); Culture Indicated Urine Cult Not Indicated; Mucus Urine 1+ (Negative); RBC Urine 0-1/HPF (0-5/HPF); Squamous Epithelial Cell Urine 0-1 /HPF (0-5/HPF); Urine Volume 10mL (spun); WBC Urine 0-1/HPF (0-5/HPF)
[2024-06-18] MEDS: HYDROMORPHONE 1 MG INJ 0.5 MG IV (19:25)
--- NOTE | 2024-06-18 19:38 | PC.NURSE ---
BP 77/53 after dilaudid admin; Pt pink/warm/dry and reporting good pain relief. Dr Brown notified, will permit hypotension-- comfort-focused care plan. Pt tolerating fluids by mouth.
[2024-06-18] MEDS: SODIUM CHLORIDE 0.9% 500 ML 1000 ML IV (20:26)
[2024-06-18] MEDS: MORPHINE IR 15 MG TABLET 7.5 MG PO (21:07)
--- NOTE | 2024-06-18 21:33 | PC.NURSE ---
Discharge instructions reviewed with patient and caregiver at the bedside by MD and this RN, printed copy of instructions provided and all questions answered. IV removed with no complications. Patient tolerated standing from a lying position, then transferring to a wheelchair independently. Denies lightheadedness or dizziness. Patient's BP remains low at discharge (89/58). MD aware. Patient was assisted out to private vehicle by wheelchair and this RN. He tolerated transferring into vehicle independently, steady gait noted. Caregiver driving patient home and has assistance at home and a wheelchair available to help patient into his home.
== END 2024-06-18 21:34 | disposition home or self-care (01) ==
PROVIDERS: Emergency Medicine; Emergency Provider Emergency Medicine; PCP Internal Medicine
DX: K52.9 Noninfective gastroenteritis and colitis, unspecified (principal); C61 Malignant neoplasm of prostate
CPT/HCPCS: 36415; 51798; 74177; 80053; 81003; 81015; 83690; 85025; 96361; 96374; 96375; 96376; 99284; J1171; J2405; Q9967

== ENCOUNTER → 2024-07-16 11:18 | Outpatient (CLI) | payer OTHER, SELFPAY ==
[2023-11-10 18:58] VITALS: BMI 20.3
--- NOTE | 2024-07-16 11:20 | DI.RAD.S_ITS ---
PROCEDURE: XR RIBS LT 2V INDICATIONS: rib pain TECHNIQUE: 2 views of the ribs were acquired. COMPARISON: None. FINDINGS: Heart, mediastinum and pulmonary vascular: Heart is normal in size and configuration. Mediastinum is unremarkable. Pulmonary vascular is normal. Lungs: Left lung clear Pleural spaces: Normal-no effusions or pneumothorax. Bones and soft tissues: Acute nondisplaced fractures of the anterior lateral left 9th and 10th ribs appreciated IMPRESSION: Acute nondisplaced fractures of the anterolateral left 9th and 10th ribs Dictated by: Khang Pabon M.D. on 07/17/2024 at 10:21 Approved by: Khang Pabon M.D. on 07/17/2024 at 10:23
--- NOTE | 2024-07-16 11:20 | DI.RAD.S_ITS ---
PROCEDURE: XR CHEST 2V INDICATIONS: rib pain TECHNIQUE: 2 views of the chest were acquired. COMPARISON: [facility], CR, XR CHEST 1V, 07/12/2022, 10:23. FINDINGS: Heart, mediastinum and pulmonary vascular: Heart is normal in size and configuration. Mediastinum is unremarkable. Pulmonary vascular is normal. Lungs: A 1.1 cm nodular density in the right apex has tiny central holes and is presumably a overlying button artifact. Pleural spaces: Small left pleural effusion. Bones and soft tissues: Normal IMPRESSION: Right upper lobe nodular density is likely artifact please see above. Suggest repeat film . Small left pleural effusion Dictated by: Khang Pabon M.D. on 07/17/2024 at 10:16 Approved by: Khang Pabon M.D. on 07/17/2024 at 10:17
[2024-07-16 12:34] LABS: Add Manual Diff / Slide Review NO; Basophils Absolute Auto 0 /uL (0-100); Basophils Percent Auto 0.7 % (0-2); Eosinophils Absolute Auto 200 /uL (0-450); Eosinophils Percent Auto 3.6 % (2-4); Hematocrit 31.3 % (41-53); Lymphocytes Absolute Auto 1200 /uL (1100-4500); Lymphocytes Percent Auto 22.6 % (25-40); Mean Corpuscular HGB Conc 35.2 % (30-36); Mean Corpuscular Hemoglobin 33.3 PG (26-34); Mean Corpuscular Volume 94.7 fL (80-100); Monocytes Absolute Auto 800 /uL (0-900); Monocytes Percent Auto 15.1 % (3-14); Neutrophils Absolute Auto 3000 /uL (1500-7000); Platelet Count 144 X10^3/uL (150-400); Red Cell Distribution Width 15.4 % (11.6-14.8); White Blood Cell Count 5.1 X10^3/uL (4.5-11.0)
[2024-07-16 12:49] LABS: Alanine Aminotransferase 85 IU/L (<50); Albumin 4.1 g/dL (3.5-5.0); Albumin Globulin Ratio 1.5 (1.0-2.8); Alkaline Phosphatase 80 U/L (38-126); Aspartate Aminotransferase 72 IU/L (17-59); BUN Creatinine Ratio 20.8 (6-22); Blood Urea Nitrogen 20 mg/dL (9-20); Calcium 9.7 mg/dL (8.4-10.2); Carbon Dioxide 27 mmol/L (22-32); Chloride 101 mmol/L (98-107); Estimated Glomerular Filt Rate > 60 mL/min (>60); Globulin 2.8 g/dL (1.7-4.1); Glucose 144 mg/dL (80-110); HEMOLYSIS < 15 (0-50); Potassium 4.1 mmol/L (3.4-5.1); Sodium 136 mmol/L (137-145); Total Protein 6.9 g/dL (6.3-8.2)
== END ==
PROVIDERS: PCP Internal Medicine; Referring Provider Internal Medicine; Visit Provider Internal Medicine
DX: J90 Pleural effusion, not elsewhere classified (principal); R07.81 Pleurodynia; E11.9 Type 2 diabetes mellitus without complications; I10 Essential (primary) hypertension; E78.2 Mixed hyperlipidemia
CPT/HCPCS: 36415; 71046; 71100; 80053; 83036; 85025

== ENCOUNTER 2024-08-17 13:42 | Emergency (ER) | payer OTHER, SELFPAY ==
[2023-11-10 18:58] VITALS: BMI 20.3
[2024-08-17] VITALS (21 sets, daily range): BP systolic 174–223; BP diastolic 88–118; PULSE 58–82; RESP 16; TEMP 36.4; O2SAT 97–100; BMI 20.3
--- NOTE | 2024-08-17 13:52 | EKG_ITS ---
[facility] [address] [place] [address] Test Date: 2024-08-17 Pat Name: Brennan Marmolejo Jr Department: [facility] Room: Gender: Male [employer] Maker: ERNESTINA : [id number] Requested By: Order Number: [id number] Reading MD: Khang Vasques MD Measurements Intervals [place] Rate: 62 P: 75 IN: 152 QRS: 61 QRSD: 76 T: 81 QT: 502 QTc: 509 Interpretive Statements Sinus rhythm with marked sinus arrhythmia Possible Left atrial enlargement Low voltage QRS Cannot rule out Anterior infarct , age undetermined Prolonged QT Electronically Signed On 08-19-2024 17:05:32 PST by Khang Vasques MD
[2024-08-17] MEDS: ONDANSETRON 4 MG/2 ML INJ IV (14:13)
[2024-08-17] MEDS: SODIUM CHLORIDE 0.9% 1,000 ML 1000 ML IV ×2 (14:13→17:25)
[2024-08-17 14:17] LABS: Add Manual Diff / Slide Review NO; Basophils Absolute Auto 0 /uL (0-100); Basophils Percent Auto 0.5 % (0-2); Eosinophils Absolute Auto 0 /uL (0-450); Eosinophils Percent Auto 0.6 % (2-4); Hematocrit 36.7 % (41-53); Hemoglobin 12.5 g/dL (13.5-17.5); Lymphocytes Absolute Auto 700 /uL (1100-4500); Lymphocytes Percent Auto 16.8 % (25-40); Mean Corpuscular HGB Conc 34.1 % (30-36); Mean Corpuscular Hemoglobin 31.8 PG (26-34); Mean Corpuscular Volume 93.2 fL (80-100); Monocytes Absolute Auto 200 /uL (0-900); Monocytes Percent Auto 4.8 % (3-14); Neutrophils Absolute Auto 3200 /uL (1500-7000); Neutrophils Percent Auto 77.3 % (50-75); Platelet Count 127 X10^3/uL (150-400); Red Blood Cell Count 3.94 X10^6/uL (4.5-5.9); Red Cell Distribution Width 12.7 % (11.6-14.8); White Blood Cell Count 4.2 X10^3/uL (4.5-11.0)
[2024-08-17 14:23] LABS: INR 1.3 (0.9-1.3); Prothrombin Time 14.3 SECONDS (9.4-12.5)
[2024-08-17 14:28] LABS: Alanine Aminotransferase 122 IU/L (<50); Albumin 4.6 g/dL (3.5-5.0); Albumin Globulin Ratio 1.3 (1.0-2.8); Alkaline Phosphatase 151 U/L (38-126); Aspartate Aminotransferase 126 IU/L (17-59); BUN Creatinine Ratio 19.3 (6-22); Bilirubin Total 1.2 mg/dL (0.2-1.3); Blood Urea Nitrogen 17 mg/dL (9-20); Calcium 10.1 mg/dL (8.4-10.2); Carbon Dioxide 22 mmol/L (22-32); Chloride 108 mmol/L (98-107); Estimated Glomerular Filt Rate > 60 mL/min (>60); Globulin 3.6 g/dL (1.7-4.1); Glucose 222 mg/dL (80-110); HEMOLYSIS < 15 (0-50); Lipase 79 U/L (23-300); Potassium 4.6 mmol/L (3.4-5.1); Sodium 140 mmol/L (137-145); Total Protein 8.2 g/dL (6.3-8.2)
[2024-08-17] MEDS: HYDROMORPHONE 0.5 MG INJ IV (15:52)
--- NOTE | 2024-08-17 16:36 | ED.ABDPAIN ---
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 He is in the palliative care stage of his treatment he is still undergoing treatment for his care. Patient presents with complaint of abdominal pain after having very large bowel movement. Patient states that this does have sometimes happen. He will often have some inflammation of the bowel and if he has a large hard bowel movement we will cut irritate it for a couple of days. Patient states bowel movement about 5:00 a.m. this morning. He has had some nausea and vomiting since. He states was large kind of constipated. Had another 1 last night. Noted a little bit of difficulty urinating last night but after he had bowel movement he has been able to urinate regularly since. He denies any black or bloody stools. No dysuria urgency or frequency since last night. Patient states no fevers. He does have some persistent pain in his ribs from 3 rib fractures he sustained about 4 weeks ago. Patient is on chronic narcotics and Eliquis, lisinopril, metoprolol, aspirin, metformin, tamsulosin, atorvastatin, duloxetine and takes a half tablet of 15 mg morphine every 4-6 hours for pain management. Patient has not had any of his regular medications today. He did [facility] some of his [facility] meds stopped but had resolution of his ELADIO. He was following regularly with Oncology. Patient states often improves or breaks the cycle of abdominal pain with hard bowel movements with hydration, antiemetics, pain medication but usually takes a couple days to fully resolve. No known drug allergies. Related Data Home Medications Medication Instructions Recorded Confirmed tamsulosin 0.4 mg capsule 0.4 mg PO DAILY 09/15/21 08/03/24 atorvastatin 80 mg tablet 80 mg PO BEDTIME 07/30/22 08/03/24 apixaban 2.5 mg tablet (Eliquis) 2.5 mg PO BID 03/29/24 08/03/24 clopidogrel 75 mg tablet 75 mg PO DAILY 03/29/24 08/03/24 nitroglycerin 0.4 mg sublingual 0.4 mg sublingual Q5-15M PRN 03/29/24 08/03/24 tablet ondansetron HCl 4 mg tablet 4 mg PO Q8H PRN 03/29/24 08/03/24 sennosides 8.6 mg tablet (senna) 8.6 mg PO DAILY constipation 03/29/24 08/03/24 isosorbide mononitrate 30 mg 60 mg PO DAILY 04/27/24 08/03/24 tablet,extended release 24 hr aspirin [Adult Low Dose Aspirin] PO 08/03/24 08/03/24 Previous Rx's Medication Instructions Recorded promethazine 25 mg rectal 25 mg AK Q4-6H PRN nausea and 11/18/20 suppository vomiting #12 ea metformin 500 mg tablet 500 mg PO BID #180 tabs 09/26/23 metoprolol succinate 100 mg 100 mg PO BID #180 tabs 09/27/23 tablet,extended release 24 hr duloxetine 20 mg capsule,delayed 20 mg PO DAILY #90 caps 07/16/24 release (Cymbalta) lidocaine 5 % topical patch 1 patch topical DAILY #15 ea 07/26/24 morphine 10 mg/5 mL oral solution 10 mg (5 mL) PO Q6H PRN pain #100 08/07/24 mL morphine 15 mg immediate release 7.5 - 15 mg (0.5 - 1 x 15 mg) PO 08/13/24 tablet Q4H PRN chest pain/bone pain #120 tabs Allergies Allergy/AdvReac Type Severity Reaction Status Date / Time No Known Drug Allergies Allergy Verified 08/03/24 08:53 Review of Systems Review of Systems ROS Unobtainable: All systems reviewed & are unremarkable except as noted in HPI and below Patient History Medical History Hematuria Uncomplicated opioid dependence Generalized anxiety disorder Cannabis abuse Prostate cancer (~05/2019) Paroxysmal A-fib Transaminitis Kidney stones Diverticulosis of large intestine (03/31/12) Chronic hepatitis Coronary artery disease involving [place] coronary artery of [place] heart without angina pectoris (~2006) Essential hypertension Mixed hyperlipidemia Surgical History H/O heart artery stent (~2006) Hx of inguinal hernia surgery (~03/07/14) Hx of inguinal hernia surgery (~09/20/08) Status post laminectomy History of angioplasty (~12/2006) Social History marital status: unmarried,single number of children: 3 household members: friend(s) and other lives independently: Yes caregiver/support person: No housing: house pets and animals: No education level: high school occupational status: other 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/hoahaoism: None leisure activities: music, fishing and other Smoking Status: Former smoker Tobacco: How many years used: 56 Smokeless tobacco user: other quit status: has quit before second hand exposure: Yes (On farmland/Boat.) alcohol intake: former substance use type: does not use and marijuana eating out: rarely or never Type(s) of exercise: normal ROM and activity and additional Smoking Status: Former smoker alcohol intake frequency: 0-2 drinks per day Alcohol type: beer Exam Narrative Exam Narrative: GENERAL: Alert and oriented x three, male in moderate distress. HEENT: Head normocephalic, atraumatic, EOMI, pupils reactive, face symmetric, moist mucous membranes NECK: Supple, full range of motion CARDIOVASCULAR: Regular rate and rhythm without murmurs, rubs or gallops. RESPIRATORY: Breath sounds equal bilaterally, no wheezes rales or rhonchi. No tachypnea accessory muscle use. No bruising or ecchymosis of the chest wall. ABDOMEN: Soft, mild generalized tenderness. Nondistended. Normoactive bowel sounds all 4 quadrants. No guarding or rebound, rigidity, no mass : No CVA tenderness EXTREMITIES: Normal range of motion, no clubbing or edema. Neurovascularly intact NEUROLOGICAL: Cranial nerves II through XII grossly intact. Moving all extremities SKIN: Warm, dry, no petechiae, no rashes or lesions. Initial Vital Signs Initial Vital Signs: Vital Signs Temperature 97.5 F L 08/17/24 13:50 Pulse Rate 60 08/17/24 13:50 Respiratory Rate 16 08/17/24 13:50 Blood Pressure 196/112 H 08/17/24 13:50 Pulse Oximetry 100 08/17/24 13:50 Oxygen Delivery Method Room Air 08/17/24 13:50 Course Orders Ordered: Discontinued Medications Hydromorphone HCl (Hydromorphone 0.5 Mg Inj) 0.5 mg IV NOW ONE Stop: 08/17/24 15:30 Last Admin: 08/17/24 15:52 Dose: 0.5 mg Documented By: LUIS MANUEL Hydromorphone HCl (Hydromorphone 1 Mg Inj) 1 mg IV NOW ONE Stop: 08/17/24 17:11 Last Admin: 08/17/24 17:20 Dose: 1 mg Documented By: LUIS MANUEL Sodium Chloride (Normal Saline 0.9%) 1,000 mls @ 1,000 mls/hr IV BOLUS ONE Stop: 08/17/24 14:54 Last Infusion: 08/17/24 16:40 Dose: Infused Documented By: LUIS MANUEL Admin: 08/17/24 14:13 Dose: 1,000 mls/hr Documented By: KIRK Sodium Chloride (Normal Saline 0.9%) 1,000 mls @ 1,000 mls/hr IV BOLUS ONE Stop: 08/17/24 18:10 Last Infusion: 08/17/24 18:40 Dose: Infused Documented By: Admin: 08/17/24 17:25 Dose: 1,000 mls/hr Documented By: LUIS MANUEL Isosorbide Mononitrate (Isosorbide Mononitrate Er 30 Mg Tablet) 30 mg PO NOW ONE Stop: 08/17/24 18:47 Last Admin: 08/17/24 18:56 Dose: 30 mg Documented By: KIRK Metoclopramide HCl (Metoclopramide 10 Mg/2 Ml Inj) 10 mg IV NOW ONE Stop: 08/17/24 17:13 Last Admin: 08/17/24 17:24 Dose: 10 mg Documented By: LUIS MANUEL Metoprolol Succinate (Metoprolol Er 50 Mg Tablet) 100 mg PO NOW ONE Stop: 08/17/24 09:01 Last Admin: 08/17/24 18:37 Dose: 100 mg Documented By: KIRK Morphine Sulfate (Morphine Ir 15 Mg Tablet) 7.5 mg PO Q2HR PRN PRN Reason: Pain, Severe (7-10) Last Admin: 08/17/24 18:44 Dose: 7.5 mg Documented By: KIRK Ondansetron HCl (Ondansetron 4 Mg/2 Ml Inj) 4 mg IV NOW PRN PRN Reason: Nausea And Vomiting Last Admin: 08/17/24 14:13 Dose: 4 mg Documented By: KIRK Vital Signs Vital signs: Vital Signs - 8 hr 08/17/24 13:50 08/17/24 14:04 08/17/24 14:05 Temperature 97.5 F L Pulse Rate 60 60 58 L Respiratory Rate 16 Blood Pressure 196/112 H Pulse Oximetry 100 100 100 Oxygen Delivery Method Room Air 08/17/24 14:05 08/17/24 14:30 08/17/24 14:30 Temperature Pulse Rate 63 Respiratory Rate Blood Pressure 208/108 H 195/110 H Pulse Oximetry 100 Oxygen Delivery Method 08/17/24 15:00 08/17/24 15:00 08/17/24 15:30 Temperature Pulse Rate 70 Respiratory Rate Blood Pressure 204/112 H 200/113 H Pulse Oximetry 100 Oxygen Delivery Method 08/17/24 15:30 08/17/24 16:00 08/17/24 16:00 Temperature Pulse Rate 71 68 Respiratory Rate Blood Pressure 176/88 H Pulse Oximetry 100 100 Oxygen Delivery Method 08/17/24 16:30 08/17/24 16:31 08/17/24 16:31 Temperature Pulse Rate 68 74 Respiratory Rate Blood Pressure 220/114 H Pulse Oximetry 100 100 Oxygen Delivery Method 08/17/24 17:00 08/17/24 17:00 08/17/24 18:37 Temperature Pulse Rate 67 75 Respiratory Rate Blood Pressure 195/115 H 195/115 H Pulse Oximetry 100 Oxygen Delivery Method MDM - Abdominal Pain Lab Data 08/17/24 14:00 08/17/24 14:00 Labs: Lab Results 08/17/24 08/17/24 Range/Units 14:00 17:33 WBC 4.2 L (4.5-11.0) X10^3/uL RBC 3.94 L (4.5-5.9) X10^6/uL Hgb 12.5 L (13.5-17.5) g/dL Hct 36.7 L (41-53) % MCV 93.2 (80-100) fL MCH 31.8 (26-34) PG MCHC 34.1 (30-36) % RDW 12.7 (11.6-14.8) % Plt Count 127 L (150-400) X10^3/uL Neut % (Auto) 77.3 H (50-75) % Lymph % (Auto) 16.8 L (25-40) % [place] % (Auto) 4.8 (3-14) % Eos % (Auto) 0.6 L (2-4) % Baso % (Auto) 0.5 (0-2) % Neut # (Auto) 3200 (4317-6973) /uL Lymph # (Auto) 700 L (8014-4304) /uL [place] # (Auto) 200 (0-900) /uL Eos # (Auto) 0 (0-450) /uL Baso # (Auto) 0 (0-100) /uL PT 14.3 H (9.4-12.5) SECONDS INR 1.3 (0.9-1.3) Sodium 140 (137-145) mmol/L Potassium 4.6 (3.4-5.1) mmol/L Chloride 108 H (98-107) mmol/L Carbon Dioxide 22 (22-32) mmol/L BUN 17 (9-20) mg/dL Creatinine 0.88 (0.66-1.25) mg/dL Estimated GFR > 60 (>60) mL/min BUN/Creatinine Ratio 19.3 (6-22) Glucose 222 H (80-110) mg/dL Calcium 10.1 (8.4-10.2) mg/dL Total Bilirubin 1.2 (0.2-1.3) mg/dL AST 126 H (17-59) IU/L ALT 122 H (<50) IU/L Alkaline Phosphatase 151 H (38-126) U/L Total Protein 8.2 (6.3-8.2) g/dL Albumin 4.6 (3.5-5.0) g/dL Globulin 3.6 (1.7-4.1) g/dL Albumin/Globulin Ratio 1.3 (1.0-2.8) Lipase 79 (23-300) U/L Urine Color Yellow Urine Appearance Clear Urine pH 6.5 (4.5-8.0) Ur Specific [place] 1.015 (1.000-1.035) Urine Protein Trace H (Negative) Urine Glucose (UA) 1+ H (Negative) g/dL Urine Ketones 1+ H (NEGATIVE) Urine Occult Blood Negative (Negative) Urine Nitrate Negative (Negative) Urine Bilirubin Negative (NEGATIVE) Urine Urobilinogen 1.0 (0.2) E.U./dL Ur Leukocyte Esterase Negative (NEGATIVE) Urine RBC None seen (0-5/HPF) Urine WBC 0-1/hpf (0-5/HPF) Ur Squamous Epith Cells None seen (0-5/HPF) Urine Bacteria None seen (None) Ur Culture Indicated? Cult not indicated Vol Urine Centrifuged 10ml (spun) ECG Data Attestation: I personally reviewed and interpreted this ECG as follows: Prior ECG tracings: available for review Interpretation: Sinus rhythm marked sinus arrhythmia rate of 62 AK 152 QRS is 76 QTC of 509, no acute ST elevation depression appreciated appears similar to prior from 09/13/2022. MDM Narrative Medical decision making narrative: 61-year-old male has a large bowel movement at 5:00 a.m. this morning having intense found on pain with nausea and vomiting does have a history of prostate cancer with metastases to the bone last chemotherapy was in October. Labs show white count of 4.2 hemoglobin 12.5 appears fairly consistent with priors platelets of 127 patient has been intermittently thrombocytopenic. Sodium is 140 potassium 4.6 chloride 09/19/2021 CO2, BUN 17 creatinine 0.88 glucose of 222 patient has ranged between 201 40s in the past 5 months. Calcium is normal bilirubin is 1.2 AST is 126 ALT is 122 alk-phos is 151 with a lipase of 79 patient has been persistently mildly elevated bilirubin today is normal. EKG shows sinus rhythm with sinus arrhythmia no acute changes from prior 09/13/2022. Urine trace protein, 1+ glucose 1+ ketones 1 white cell, no squamous, no bacteria culture not indicated. CT abdomen pelvis, findings concerning for colitis with diffuse colonic wall thickening no abscess collection no free fluid or free air SP a well-appearing sclerotic areas right sacrum and left L2 vertebral body no suspicious bony lesions no pathologic fracture. CT notes sigmoid diverticulosis without acute diverticulitis no abscess collection. Concerning for infectious versus inflammatory colitis. Patient had L of fluid, 4 mg of Zofran and 0.5 mg of Dilaudid medications were helpful but patient states his pain returned. Patient receiving 1 L normal saline, 10 mg of Reglan and 1 mg of Dilaudid we will also order dose of patient's oral pain medication when he is less nauseated. Patient states he expects that we would find colitis on his CT imaging. States typically responds to fluids, antiemetics and pain management. Patient received a L of fluids, Zofran, Reglan, Dilaudid and was given dose of his oral narcotic. Discussed with patient if tolerating orals we will plan for disposition home. Patient's pain is doing somewhat improved. Just received has not oral narcotic medication he has not taken any of his morning blood pressure medications he has been persistently hypertensive so give his oral metoprolol dose of 100 mg as well as Imdur 30 mg daily. He does take lisinopril in the morning as well but his states he has been told not to ever take that other than in the morning so we will hold that for now. Patient missed all of his morning medications so we will give 2 blood pressure medications. If patient is tolerating these orally we will plan for disposition home. He has oral ondansetron at home as well as his oral narcotic pain medication. Reviewed his CT findings they feel comfortable with the plan. If patient is not tolerating oral medications and has persistent vomiting we will keep for observation. Signed out to Dr. Geiger, while awaiting oral challenge, with patient's home oral pain medication as well as his to blood pressure doses. If successful plan for discharge home if unsuccessful plan for admission to Dr. Foley. Discharge Plan Departure Patient Disposition: Home Clinical Impression: Colitis Instructions: DI for Colitis Activity Restrictions/Additional Instructions: Follow up with your physician for recheck as needed. Continue your home medications as prescribed. Take your morning medications as prescribed. Can continue your oral narcotics as prescribed, would make sure you are taking some sort of stool softener such as MiraLax or Colace daily to help keep stools soft prevent constipation and irritation of your colon. You do have thickening or inflammation of the colon consistent with colitis but no signs of diverticulitis currently. Continue your home ondansetron every 6 hours as needed for any nausea or vomiting. Please return for fevers any persistent vomiting, worsening abdominal back or flank pain, passing out, new chest pain or shortness of breath. Black or bloody stools or other new or concerning changes. Prescriptions: No Action metformin 500 mg tablet 500 mg PO BID Qty: 180 3RF metoprolol succinate 100 mg tablet extended release 24 hr 100 mg PO BID Qty: 180 3RF duloxetine [Cymbalta] 20 mg capsule,delayed release(DR/EC) 20 mg PO DAILY Qty: 90 3RF lidocaine 5 % adhesive patch,medicated 1 patch topical DAILY Qty: 15 1RF Rx Instructions: leave on most painful area for up to 12 hrs morphine 10 mg/5 mL solution 10 mg PO Q6H PRN (Reason: pain) Qty: 100 0RF morphine 15 mg tablet 7.5 - 15 mg PO Q4H MDD 60mg PRN (Reason: chest pain/bone pain) Qty: 120 0RF atorvastatin 80 mg tablet 80 mg PO BEDTIME Eliquis 2.5 mg tablet 2.5 mg PO BID clopidogrel 75 mg tablet 75 mg PO DAILY sennosides [senna] 8.6 mg tablet 8.6 mg PO DAILY nitroglycerin 0.4 mg tablet, sublingual 0.4 mg sublingual Q5-15M PRN ondansetron HCl 4 mg tablet 4 mg PO Q8H PRN isosorbide mononitrate 30 mg tablet extended release 24 hr 60 mg PO DAILY aspirin [Adult Low Dose Aspirin] PO tamsulosin 0.4 mg capsule 0.4 mg PO DAILY Patient Comments: take 1 capsule by mouth once daily promethazine 25 mg suppository 25 mg AK Q4-6H PRN (Reason: nausea and vomiting) Qty: 12 0RF Referrals: Khang Vasques MD [Primary Care Provider] - Stand Alone Forms: Patient Portal/API/Survey
--- NOTE | 2024-08-17 17:10 | DI.CT.S_ITS ---
PROCEDURE: CT ABDOMEN PELVIS W CON INDICATIONS: abd pain, had large BM then pain, hx prostate ca TECHNIQUE: After the administration of intravenous contrast, axial sections acquired from the lung bases to the pubic symphysis. Coronal and sagittal reformats were performed. For radiation dose reduction, the following was used: automated exposure control, adjustment of mA and/or kV according to patient size. COMPARISON: Located Within [facility], CT, CT ABDOMEN PELVIS W CON, 06/18/2024, 18:41. FINDINGS: Image quality: Diagnostic. Lower Chest: No significant findings. ABDOMEN: Liver: No solid mass. Gallbladder: Gallbladder is distended. No radiopaque gallstones or wall thickening. Biliary ducts: No biliary dilation. Pancreas: No ductal dilation. Spleen: Size is within normal limits. Adrenal Glands: No adrenal nodules. Kidneys and Ureters: No hydronephrosis. No solid mass. Simple appearing small right renal cortical cyst is again seen unchanged from prior study. No complex renal cystic lesion which requires follow up. Stomach and Bowel: There is no bowel obstruction. No gastric or small bowel wall thickening. There is suggestion of diffuse colonic wall thickening and edema particularly involving transverse colon and descending colon extending to sigmoid colon with narrowing of the lumen. No abscess collection. Sigmoid diverticulosis without CT evidence of acute diverticulitis. No abscess collection. Peritoneum: No abnormal intraperitoneal fluid. No free air. Ventral Wall: No significant ventral hernia. Abdominal Nodes: No retroperitoneal or mesenteric adenopathy by size criteria. Vessels: Aorta and inferior vena cava are normal in size. PELVIS: Pelvic Organs: Unremarkable. Bladder: No bladder wall thickening, accounting for underdistention. Pelvic Nodes: No enlarged lymph nodes. Miscellaneous: No inguinal hernias are seen. Bones: Sclerotic area involving right sacrum as well as left side of L2 vertebral body are again seen. No new suspicious bony lesions. IMPRESSION: 1. Finding is concerning for infectious inflammatory colitis with diffuse colonic wall thickening. No abscess collection. No free fluid or free air. 2. Stable appearing sclerotic areas involving right sacrum and left L2 vertebral body. No new suspicious bony lesions. No pathologic fracture. Dictated by: Hosea Vogel M.D. on 08/17/2024 at 17:44 Approved by: Hosea Vogel M.D. on 08/17/2024 at 17:53
[2024-08-17] MEDS: HYDROMORPHONE 1 MG INJ IV (17:20)
[2024-08-17] MEDS: METOCLOPRAMIDE 10 MG/2 ML INJ IV (17:24)
[2024-08-17 17:40] LABS: Appearance Urine UA CLEAR; Bilirubin Urine UA NEGATIVE (NEGATIVE); Color Urine UA YELLOW; Glucose Urine UA 1+ g/dL (Negative); Ketones Urine UA 1+ (NEGATIVE); Leukocyte Esterase Urine UA NEGATIVE (NEGATIVE); Nitrite Urine UA NEGATIVE (Negative); Occult Blood Urine UA NEGATIVE (Negative); Protein Urine UA TRACE (Negative); Specific Gravity Urine UA 1.015 (1.000-1.035); pH Urine UA 6.5 (4.5-8.0)
[2024-08-17 17:51] LABS: Bacteria Urine None Seen; RBC Urine None Seen (0-5/HPF); Squamous Epithelial Cell Urine None Seen (0-5/HPF); Urine Volume 10mL (spun); WBC Urine 0-1/HPF (0-5/HPF)
[2024-08-17 17:52] LABS: Culture Indicated Urine Cult Not Indicated
[2024-08-17] MEDS: METOPROLOL ER 50 MG TABLET 100 MG PO (18:37)
[2024-08-17] MEDS: MORPHINE IR 15 MG TABLET 7.5 MG PO (18:44)
[2024-08-17] MEDS: ISOSORBIDE MONONITRATE ER 30 MG TABLET PO (18:56)
--- NOTE | 2024-08-19 10:47 | ED_ITS ---
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 Patient presents with complaint of chest pain as well as abdominal pain. Patient was seen here by myself on 08/17/2024 has had some persistent abdominal pain that was initially started after having a large bowel movement. He states still present although not quite as intense. He does note that he had some chest pain last night at about 330 in the morning, he took his morphine and nitro sublingual about 5:00 a.m.. The nitro did resolve his chest pressure. He states no fevers, he feels chronically short of breath. Patient states he vomit a little bit of bile in his improved from his last visit. He states he was able to take his morning medications for blood pressure with some eggnog. Patient states he has alternated between diarrhea and constipation, reportedly had a bowel movement here in the department but has not had any since he left although states it is usually every 2 or 3 days he has a bowel movement. Denies any new urinary symptoms. Denies any new swelling in extremities. Patient states no new medication changes since he left the hospital. He notes he has been quite hypertensive since he left. Related Data Home Medications Medication Instructions Recorded Confirmed tamsulosin 0.4 mg capsule 0.4 mg PO DAILY 09/15/21 08/03/24 atorvastatin 80 mg tablet 80 mg PO BEDTIME 07/30/22 08/03/24 apixaban 2.5 mg tablet (Eliquis) 2.5 mg PO BID 03/29/24 08/03/24 clopidogrel 75 mg tablet 75 mg PO DAILY 03/29/24 08/03/24 nitroglycerin 0.4 mg sublingual 0.4 mg sublingual Q5-15M PRN 03/29/24 08/03/24 tablet ondansetron HCl 4 mg tablet 4 mg PO Q8H PRN 03/29/24 08/03/24 sennosides 8.6 mg tablet (senna) 8.6 mg PO DAILY constipation 03/29/24 08/03/24 isosorbide mononitrate 30 mg 60 mg PO DAILY 04/27/24 08/03/24 tablet,extended release 24 hr aspirin [Adult Low Dose Aspirin] PO 08/03/24 08/03/24 Previous Rx's Medication Instructions Recorded promethazine 25 mg rectal 25 mg TX Q4-6H PRN nausea and 11/18/20 suppository vomiting #12 ea metformin 500 mg tablet 500 mg PO BID #180 tabs 09/26/23 metoprolol succinate 100 mg 100 mg PO BID #180 tabs 09/27/23 tablet,extended release 24 hr duloxetine 20 mg capsule,delayed 20 mg PO DAILY #90 caps 07/16/24 release (Cymbalta) lidocaine 5 % topical patch 1 patch topical DAILY #15 ea 07/26/24 morphine 10 mg/5 mL oral solution 10 mg (5 mL) PO Q6H PRN pain #100 08/07/24 mL morphine 15 mg immediate release 7.5 - 15 mg (0.5 - 1 x 15 mg) PO 08/13/24 tablet Q4H PRN chest pain/bone pain #120 tabs Allergies Allergy/AdvReac Type Severity Reaction Status Date / Time No Known Drug Allergies Allergy Verified 08/03/24 08:53 Review of Systems Review of Systems ROS Unobtainable: All systems reviewed & are unremarkable except as noted in HPI and below Patient History Medical History Hematuria Uncomplicated opioid dependence Generalized anxiety disorder Cannabis abuse Prostate cancer (~05/2019) Paroxysmal A-fib Transaminitis Kidney stones Diverticulosis of large intestine (03/31/12) Chronic hepatitis Coronary artery disease involving robinson coronary artery of robinson heart without angina pectoris (~2006) Essential hypertension Mixed hyperlipidemia Surgical History H/O heart artery stent (~2006) Hx of inguinal hernia surgery (~03/07/14) Hx of inguinal hernia surgery (~09/20/08) Status post laminectomy History of angioplasty (~12/2006) Social History marital status: unmarried,single number of children: 3 household members: friend(s) and other lives independently: Yes caregiver/support person: No housing: house pets and animals: No education level: high school occupational status: other 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/yarsanism: None leisure activities: music, fishing and other Smoking Status: Former smoker Tobacco: How many years used: 56 Smokeless tobacco user: other quit status: has quit before second hand exposure: Yes (On farmland/Boat.) alcohol intake: former substance use type: does not use and marijuana eating out: rarely or never Type(s) of exercise: normal ROM and activity and additional Smoking Status: Former smoker alcohol intake frequency: 0-2 drinks per day Alcohol type: beer Exam Narrative Exam Narrative: GENERAL: Alert and oriented x three, male in mild distress. HEENT: Head normocephalic, atraumatic, EOMI, pupils reactive, face symmetric, moist mucous membranes NECK: Supple, full range of motion CARDIOVASCULAR: Regular rate and rhythm without murmurs, rubs or gallops. RESPIRATORY: Breath sounds equal bilaterally, no wheezes rales or rhonchi. No tachypnea or accessory muscle use. ABDOMEN: Soft, nontender. Nondistended. Normoactive bowel sounds all 4 quadrants. No guarding or rebound, rigidity, no mass, no pulsatile mass or bruit. : No CVA tenderness EXTREMITIES: Normal range of motion, no clubbing or edema bilateral upper lower extremities. Neurovascularly intact NEUROLOGICAL: Cranial nerves II through XII grossly intact. Moving all extremities SKIN: Warm, dry, no petechiae, no rashes or lesions. Initial Vital Signs Initial Vital Signs: Vital Signs Temperature 97.5 F L 08/17/24 13:50 Pulse Rate 60 08/17/24 13:50 Respiratory Rate 16 08/17/24 13:50 Blood Pressure 196/112 H 08/17/24 13:50 Pulse Oximetry 100 08/17/24 13:50 Oxygen Delivery Method Room Air 08/17/24 13:50 Course Orders Ordered: Discontinued Medications Hydromorphone HCl (Hydromorphone 0.5 Mg Inj) 0.5 mg IV NOW ONE Stop: 08/17/24 15:30 Last Admin: 08/17/24 15:52 Dose: 0.5 mg Documented By: [facility] Hydromorphone HCl (Hydromorphone 1 Mg Inj) 1 mg IV NOW ONE Stop: 08/17/24 17:11 Last Admin: 08/17/24 17:20 Dose: 1 mg Documented By: LUIS MANUEL Sodium Chloride (Normal Saline 0.9%) 1,000 mls @ 1,000 mls/hr IV BOLUS ONE Stop: 08/17/24 14:54 Last Infusion: 08/17/24 16:40 Dose: Infused Documented By: LUIS MANUEL Admin: 08/17/24 14:13 Dose: 1,000 mls/hr Documented By: KIRK Sodium Chloride (Normal Saline 0.9%) 1,000 mls @ 1,000 mls/hr IV BOLUS ONE Stop: 08/17/24 18:10 Last Infusion: 08/17/24 18:40 Dose: Infused Documented By: Admin: 08/17/24 17:25 Dose: 1,000 mls/hr Documented By: LUIS MANUEL Isosorbide Mononitrate (Isosorbide Mononitrate Er 30 Mg Tablet) 30 mg PO NOW ONE Stop: 08/17/24 18:47 Last Admin: 08/17/24 18:56 Dose: 30 mg Documented By: KIRK Metoclopramide HCl (Metoclopramide 10 Mg/2 Ml Inj) 10 mg IV NOW ONE Stop: 08/17/24 17:13 Last Admin: 08/17/24 17:24 Dose: 10 mg Documented By: LUIS MANUEL Metoprolol Succinate (Metoprolol Er 50 Mg Tablet) 100 mg PO NOW ONE Stop: 08/17/24 09:01 Last Admin: 08/17/24 18:37 Dose: 100 mg Documented By: KIRK Morphine Sulfate (Morphine Ir 15 Mg Tablet) 7.5 mg PO Q2HR PRN PRN Reason: Pain, Severe (7-10) Last Admin: 08/17/24 18:44 Dose: 7.5 mg Documented By: KIRK Ondansetron HCl (Ondansetron 4 Mg/2 Ml Inj) 4 mg IV NOW PRN PRN Reason: Nausea And Vomiting Last Admin: 08/17/24 14:13 Dose: 4 mg Documented By: KIRK Medical Decision Making Lab Data 08/17/24 14:00 08/17/24 14:00 Labs: Lab Results 08/17/24 08/17/24 Range/Units 14:00 17:33 WBC 4.2 L (4.5-11.0) X10^3/uL RBC 3.94 L (4.5-5.9) X10^6/uL Hgb 12.5 L (13.5-17.5) g/dL Hct 36.7 L (41-53) % MCV 93.2 (80-100) fL MCH 31.8 (26-34) PG MCHC 34.1 (30-36) % RDW 12.7 (11.6-14.8) % Plt Count 127 L (150-400) X10^3/uL Neut % (Auto) 77.3 H (50-75) % Lymph % (Auto) 16.8 L (25-40) % [place] % (Auto) 4.8 (3-14) % Eos % (Auto) 0.6 L (2-4) % Baso % (Auto) 0.5 (0-2) % Neut # (Auto) 3200 (9640-3862) /uL Lymph # (Auto) 700 L (8995-8703) /uL [place] # (Auto) 200 (0-900) /uL Eos # (Auto) 0 (0-450) /uL Baso # (Auto) 0 (0-100) /uL PT 14.3 H (9.4-12.5) SECONDS INR 1.3 (0.9-1.3) Sodium 140 (137-145) mmol/L Potassium 4.6 (3.4-5.1) mmol/L Chloride 108 H (98-107) mmol/L Carbon Dioxide 22 (22-32) mmol/L BUN 17 (9-20) mg/dL Creatinine 0.88 (0.66-1.25) mg/dL Estimated GFR > 60 (>60) mL/min BUN/Creatinine Ratio 19.3 (6-22) Glucose 222 H (80-110) mg/dL Calcium 10.1 (8.4-10.2) mg/dL Total Bilirubin 1.2 (0.2-1.3) mg/dL AST 126 H (17-59) IU/L ALT 122 H (<50) IU/L Alkaline Phosphatase 151 H (38-126) U/L Total Protein 8.2 (6.3-8.2) g/dL Albumin 4.6 (3.5-5.0) g/dL Globulin 3.6 (1.7-4.1) g/dL Albumin/Globulin Ratio 1.3 (1.0-2.8) Lipase 79 (23-300) U/L Urine Color Yellow Urine Appearance Clear Urine pH 6.5 (4.5-8.0) Ur Specific [place] 1.015 (1.000-1.035) Urine Protein Trace H (Negative) Urine Glucose (UA) 1+ H (Negative) g/dL Urine Ketones 1+ H (NEGATIVE) Urine Occult Blood Negative (Negative) Urine Nitrate Negative (Negative) Urine Bilirubin Negative (NEGATIVE) Urine Urobilinogen 1.0 (0.2) E.U./dL Ur Leukocyte Esterase Negative (NEGATIVE) Urine RBC None seen (0-5/HPF) Urine WBC 0-1/hpf (0-5/HPF) Ur Squamous Epith Cells None seen (0-5/HPF) Urine Bacteria None seen (None) Ur Culture Indicated? Cult not indicated Vol Urine Centrifuged 10ml (spun) ECG Data Attestation: I personally reviewed and interpreted this ECG as follows: Discharge Plan Departure Patient Disposition: Home Clinical Impression: Colitis Instructions: DI for Colitis Activity Restrictions/Additional Instructions: Follow up with your physician for recheck as needed. Continue your home medications as prescribed. Take your morning medications as prescribed. Can continue your oral narcotics as prescribed, would make sure you are taking some sort of stool softener such as MiraLax or Colace daily to help keep stools soft prevent constipation and irritation of your colon. You do have thickening or inflammation of the colon consistent with colitis but no signs of diverticulitis currently. Continue your home ondansetron every 6 hours as needed for any nausea or vomiting. Please return for fevers any persistent vomiting, worsening abdominal back or flank pain, passing out, new chest pain or shortness of breath. Black or bloody stools or other new or concerning changes. Prescriptions: No Action metformin 500 mg tablet 500 mg PO BID Qty: 180 3RF metoprolol succinate 100 mg tablet extended release 24 hr 100 mg PO BID Qty: 180 3RF duloxetine [Cymbalta] 20 mg capsule,delayed release(DR/EC) 20 mg PO DAILY Qty: 90 3RF lidocaine 5 % adhesive patch,medicated 1 patch topical DAILY Qty: 15 1RF Rx Instructions: leave on most painful area for up to 12 hrs morphine 10 mg/5 mL solution 10 mg PO Q6H PRN (Reason: pain) Qty: 100 0RF morphine 15 mg tablet 7.5 - 15 mg PO Q4H MDD 60mg PRN (Reason: chest pain/bone pain) Qty: 120 0RF atorvastatin 80 mg tablet 80 mg PO BEDTIME Eliquis 2.5 mg tablet 2.5 mg PO BID clopidogrel 75 mg tablet 75 mg PO DAILY sennosides [senna] 8.6 mg tablet 8.6 mg PO DAILY nitroglycerin 0.4 mg tablet, sublingual 0.4 mg sublingual Q5-15M PRN ondansetron HCl 4 mg tablet 4 mg PO Q8H PRN isosorbide mononitrate 30 mg tablet extended release 24 hr 60 mg PO DAILY aspirin [Adult Low Dose Aspirin] PO tamsulosin 0.4 mg capsule 0.4 mg PO DAILY Patient Comments: take 1 capsule by mouth once daily promethazine 25 mg suppository 25 mg TX Q4-6H PRN (Reason: nausea and vomiting) Qty: 12 0RF Referrals: Khang Vasques MD [Primary Care Provider] - Stand Alone Forms: Patient Portal/API/Survey
== END 2024-08-17 20:13 | disposition home or self-care (01) ==
PROVIDERS: Emergency Medicine; Emergency Provider Student in an Organized Health Care Education/Training Program; PCP Internal Medicine
DX: K52.9 Noninfective gastroenteritis and colitis, unspecified (principal); R11.2 Nausea with vomiting, unspecified; I49.8 Other specified cardiac arrhythmias; C79.51 Secondary malignant neoplasm of bone; Z51.5 Encounter for palliative care
CPT/HCPCS: 36415; 74177; 80053; 81001; 83690; 85025; 85610; 93005; 93010; 96361; 96374; 96375; 96376; 99284; J1171; J2405; J2765; Q9967

== ENCOUNTER 2024-08-19 10:23 | Observation (INO) | payer OTHER, SELFPAY ==
[2023-11-10 18:58] VITALS: BMI 20.3
[2024-08-19] VITALS (20 sets, daily range): BP systolic 100–231; BP diastolic 62–128; PULSE 66–117; RESP 11–20; TEMP 36.3–37.1; O2SAT 97–100; BMI 20.3
--- NOTE | 2024-08-19 10:33 | EKG_ITS ---
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
--- NOTE | 2024-08-19 10:59 | ED_ITS ---
HPI - General Adult General Chief complaint: Abdominal Pain Stated complaint: chest pain/ abd pain Time Seen by Provider: 08/19/24 10:29 Source: patient, EMS, RN notes reviewed and old records reviewed Mode of arrival: EMS Limitations: no limitations History of Present Illness HPI narrative: 61-year-old male history of prostate cancers with a metastases to the lumbar and pelvic bone, hypertension, dyslipidemia, diabetes, atrial fibrillation on apixaban and chronic pain.? Patient presents with complaint of chest pain as well as abdominal pain.? Patient was seen here by myself on 08/17/2024 has had some persistent abdominal pain that was initially started after having a large bowel movement.? He states still present although not quite as intense.? He does note that he had some chest pain last night at about 330 in the morning, he took his morphine and nitro sublingual about 5:00 a.m..? The nitro did resolve his chest pressure.? He states no fevers, he feels chronically short of breath.? Patient states he vomit a little bit of bile in his improved from his last visit.? He states he was able to take his morning medications for blood pressure with some eggnog.? Patient states he has alternated between diarrhea and constipation, reportedly had a bowel movement here in the department but has not had any since he left although states it is usually every 2 or 3 days he has a bowel movement.? Denies any new urinary symptoms.? Denies any new swelling in extremities.? Patient states no new medication changes since he left the hospital.? He notes he has been quite hypertensive since he left.?? Related Data Home Medications Medication Instructions Recorded Confirmed tamsulosin 0.4 mg capsule 0.4 mg PO DAILY 09/15/21 08/03/24 atorvastatin 80 mg tablet 80 mg PO BEDTIME 07/30/22 08/03/24 apixaban 2.5 mg tablet (Eliquis) 2.5 mg PO BID 03/29/24 08/03/24 clopidogrel 75 mg tablet 75 mg PO DAILY 03/29/24 08/03/24 nitroglycerin 0.4 mg sublingual 0.4 mg sublingual Q5-15M PRN 03/29/24 08/03/24 tablet ondansetron HCl 4 mg tablet 4 mg PO Q8H PRN 03/29/24 08/03/24 sennosides 8.6 mg tablet (senna) 8.6 mg PO DAILY constipation 03/29/24 08/03/24 isosorbide mononitrate 30 mg 60 mg PO DAILY 04/27/24 08/03/24 tablet,extended release 24 hr aspirin [Adult Low Dose Aspirin] PO 08/03/24 08/03/24 Previous Rx's Medication Instructions Recorded promethazine 25 mg rectal 25 mg NH Q4-6H PRN nausea and 11/18/20 suppository vomiting #12 ea metformin 500 mg tablet 500 mg PO BID #180 tabs 09/26/23 metoprolol succinate 100 mg 100 mg PO BID #180 tabs 09/27/23 tablet,extended release 24 hr duloxetine 20 mg capsule,delayed 20 mg PO DAILY #90 caps 07/16/24 release (Cymbalta) lidocaine 5 % topical patch 1 patch topical DAILY #15 ea 07/26/24 morphine 10 mg/5 mL oral solution 10 mg (5 mL) PO Q6H PRN pain #100 08/07/24 mL morphine 15 mg immediate release 7.5 - 15 mg (0.5 - 1 x 15 mg) PO 08/13/24 tablet Q4H PRN chest pain/bone pain #120 tabs Allergies Allergy/AdvReac Type Severity Reaction Status Date / Time No Known Drug Allergies Allergy Verified 08/03/24 08:53 Review of Systems Review of Systems ROS Unobtainable: All systems reviewed & are unremarkable except as noted in HPI and below Patient History Medical History Hematuria Uncomplicated opioid dependence Generalized anxiety disorder Cannabis abuse Prostate cancer (~05/2019) Paroxysmal A-fib Transaminitis Kidney stones Diverticulosis of large intestine (03/31/12) Chronic hepatitis Coronary artery disease involving [place] coronary artery of [place] heart without angina pectoris (~2006) Essential hypertension Mixed hyperlipidemia Surgical History H/O heart artery stent (~2006) Hx of inguinal hernia surgery (~03/07/14) Hx of inguinal hernia surgery (~09/20/08) Status post laminectomy History of angioplasty (~12/2006) Social History marital status: unmarried,single number of children: 3 household members: friend(s) and other lives independently: Yes caregiver/support person: No housing: house pets and animals: No education level: high school occupational status: other 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/evangelical: None leisure activities: music, fishing and other Smoking Status: Former smoker Tobacco: How many years used: 56 Smokeless tobacco user: other quit status: has quit before second hand exposure: Yes (On farmland/Boat.) alcohol intake: former substance use type: does not use and marijuana eating out: rarely or never Type(s) of exercise: normal ROM and activity and additional Smoking Status: Former smoker alcohol intake frequency: 0-2 drinks per day Alcohol type: beer Exam Narrative Exam Narrative: Exam Narrative: GENERAL: Alert and oriented x three, male in mild distress. HEENT: Head normocephalic, atraumatic, EOMI, pupils reactive, face symmetric, moist mucous membranes NECK: Supple, full range of motion CARDIOVASCULAR: Regular rate and rhythm without murmurs, rubs or gallops. RESPIRATORY: Breath sounds equal bilaterally, no wheezes rales or rhonchi. No tachypnea or accessory muscle use. ABDOMEN: Soft, nontender. Nondistended. Normoactive bowel sounds all 4 quadrants. No guarding or rebound, rigidity, no mass, no pulsatile mass or bruit. : No CVA tenderness EXTREMITIES: Normal range of motion, no clubbing or edema bilateral upper lower extremities. Neurovascularly intact NEUROLOGICAL: Cranial nerves II through XII grossly intact. Moving all extremities SKIN: Warm, dry, no petechiae, no rashes or lesions. Initial Vital Signs Initial Vital Signs: Vital Signs Pulse Rate 79 08/19/24 10:27 Blood Pressure 215/124 H 08/19/24 10:27 Pulse Oximetry 98 08/19/24 10:27 Course Orders Ordered: ED Orders 08/19/24 10:53 Complete Blood Count AUTO DIFF Stat Comprehensive Metabolic Panel Stat Lipase Stat NT-proBNP (BNP-Adult 18+) Stat PTT Partial Thromboplastin Jeff Stat Prothrombin Time INR Stat Troponin & CK Cardiac Panel Stat 08/19/24 11:02 XR chest 1V Stat 08/19/24 11:17 CT angio chest abdomen pelvis Stat 08/19/24 12:50 Trop I [Troponin I] Stat 08/19/24 13:33 EKG-12 Lead Stat Discontinued Medications Furosemide (Furosemide 40 Mg/4 Ml Vial) 40 mg IV NOW ONE Stop: 08/19/24 12:16 Last Admin: 08/19/24 12:29 Dose: 40 mg Documented By: SHAHEED Hydromorphone HCl (Hydromorphone 1 Mg Inj) 1 mg IV NOW ONE Stop: 08/19/24 11:03 Last Admin: 08/19/24 11:21 Dose: 1 mg Documented By: SHAHEED Hydromorphone HCl (Hydromorphone 0.5 Mg Inj) 0.5 mg IV NOW ONE Stop: 08/19/24 13:47 Last Admin: 08/19/24 13:49 Dose: 0.5 mg Documented By: SHAHEED Metoprolol Tartrate (Metoprolol Tartrate 5 Mg/5 Ml Inj) 5 mg IV NOW ONE Stop: 08/19/24 13:47 Last Admin: 08/19/24 13:49 Dose: 5 mg Documented By: SHAHEED Metoprolol Tartrate (Metoprolol Ir 25 Mg Tablet) 50 mg PO NOW ONE Stop: 08/19/24 15:11 Morphine Sulfate (Morphine Ir 15 Mg Tablet) 7.5 mg PO NOW ONE Stop: 08/19/24 11:19 Last Admin: 08/19/24 12:28 Dose: 7.5 mg Documented By: SHAHEED Nitroglycerin (Nitroglycerin Oint 1 Inch/Gm Oint...G.) 1 inch TOP NOW ONE Stop: 08/19/24 11:03 Last Admin: 08/19/24 11:21 Dose: 1 inch Documented By: SHAHEED Ondansetron HCl (Ondansetron 4 Mg/2 Ml Inj) 4 mg IV NOW ONE Stop: 08/19/24 11:03 Last Admin: 08/19/24 11:21 Dose: 4 mg Documented By: SHAHEED Vital Signs Vital signs: Vital Signs - 8 hr 08/19/24 10:27 08/19/24 10:27 08/19/24 10:29 Temperature 98.8 F Pulse Rate 79 78 Respiratory Rate 20 Blood Pressure 215/124 H 215/124 H Pulse Oximetry 98 98 Oxygen Delivery Method Room Air 08/19/24 10:30 08/19/24 10:30 08/19/24 11:00 Temperature Pulse Rate 77 77 Respiratory Rate 12 Blood Pressure 231/128 H Pulse Oximetry 100 99 Oxygen Delivery Method 08/19/24 11:00 08/19/24 11:21 08/19/24 11:22 Temperature Pulse Rate 70 74 Respiratory Rate 13 Blood Pressure 214/122 H 204/123 H Pulse Oximetry 99 Oxygen Delivery Method 08/19/24 11:22 08/19/24 11:30 08/19/24 11:30 Temperature Pulse Rate 73 Respiratory Rate 13 Blood Pressure 225/125 H 204/123 H Pulse Oximetry 100 Oxygen Delivery Method 08/19/24 11:59 08/19/24 11:59 08/19/24 12:00 Temperature Pulse Rate 72 72 Respiratory Rate 14 14 Blood Pressure 205/114 H Pulse Oximetry 100 100 Oxygen Delivery Method 08/19/24 12:00 08/19/24 12:30 08/19/24 12:30 Temperature Pulse Rate 66 Respiratory Rate 12 Blood Pressure 199/120 H 206/122 H Pulse Oximetry 98 Oxygen Delivery Method 08/19/24 13:00 08/19/24 13:26 08/19/24 13:26 Temperature Pulse Rate 70 69 Respiratory Rate 14 15 Blood Pressure 223/128 H Pulse Oximetry 98 99 Oxygen Delivery Method 08/19/24 13:27 08/19/24 13:30 08/19/24 13:30 Temperature Pulse Rate 77 74 Respiratory Rate 12 19 Blood Pressure 223/128 H 209/122 H Pulse Oximetry 98 98 Oxygen Delivery Method 08/19/24 14:00 08/19/24 14:00 08/19/24 14:30 Temperature Pulse Rate 117 H 80 Respiratory Rate 15 12 Blood Pressure 172/121 H Pulse Oximetry 98 98 Oxygen Delivery Method 08/19/24 14:31 08/19/24 14:31 08/19/24 15:00 Temperature Pulse Rate 83 Respiratory Rate 14 Blood Pressure 118/74 121/62 Pulse Oximetry 98 Oxygen Delivery Method 08/19/24 15:00 Temperature Pulse Rate 106 H Respiratory Rate 11 L Blood Pressure Pulse Oximetry 98 Oxygen Delivery Method Medical Decision Making Lab Data 08/19/24 10:53 08/19/24 10:53 Labs: Lab Results 08/19/24 08/19/24 Range/Units 10:53 12:50 WBC 7.4 D (4.5-11.0) X10^3/uL RBC 3.96 L (4.5-5.9) X10^6/uL Hgb 12.7 L (13.5-17.5) g/dL Hct 36.7 L (41-53) % MCV 92.6 (80-100) fL MCH 32.1 (26-34) PG MCHC 34.7 (30-36) % RDW 12.6 (11.6-14.8) % Plt Count 136 L (150-400) X10^3/uL Neut % (Auto) 78.5 H (50-75) % Lymph % (Auto) 11.9 L (25-40) % Craven % (Auto) 9.1 (3-14) % Eos % (Auto) 0.2 L (2-4) % Baso % (Auto) 0.3 (0-2) % Neut # (Auto) 5800 (1512-2666) /uL Lymph # (Auto) 900 L (8194-7419) /uL Craven # (Auto) 700 (0-900) /uL Eos # (Auto) 0 (0-450) /uL Baso # (Auto) 0 (0-100) /uL PT 17.5 H (9.4-12.5) SECONDS INR 1.6 H (0.9-1.3) APTT 32 (25.1-36.5) SECONDS Sodium 137 (137-145) mmol/L Potassium 3.8 (3.4-5.1) mmol/L Chloride 106 (98-107) mmol/L Carbon Dioxide 20 L (22-32) mmol/L BUN 25 H (9-20) mg/dL Creatinine 0.94 (0.66-1.25) mg/dL Estimated GFR > 60 (>60) mL/min BUN/Creatinine Ratio 26.6 H (6-22) Glucose 264 H (80-110) mg/dL Calcium 9.5 (8.4-10.2) mg/dL Total Bilirubin 1.1 (0.2-1.3) mg/dL AST 82 H (17-59) IU/L ALT 92 H (<50) IU/L Alkaline Phosphatase 108 (38-126) U/L Total Creatine Kinase 97 (55-170) U/L Troponin I 0.019 0.022 (0.01-0.034) ng/mL NT-Pro-B Natriuret Pep 4790 H (<125) pg/mL Total Protein 7.6 (6.3-8.2) g/dL Albumin 4.4 (3.5-5.0) g/dL Globulin 3.2 (1.7-4.1) g/dL Albumin/Globulin Ratio 1.4 (1.0-2.8) Lipase 206 D (23-300) U/L Imaging Data Chest x-ray: Radiologist's Impression: [address] [address] XRay Report Signed Patient: Brennan Marmolejo Jr MR#: [id number] : 1955 Acct:[id number] Age/Sex: 69 / M Date of Service: 08/19/24 Loc: ED Accession Number: [id number] Procedure: XR chest 1V Ordering Provider: Ashley Carrasco D.O. PROCEDURE: XR CHEST 1V INDICATIONS: chest pain TECHNIQUE: One view of the chest was acquired. COMPARISON: [facility], , XR CHEST 2V, 07/16/2024, 11:17. FINDINGS: Surgical changes and devices: None. Lungs and pleura: Lungs are clear. No pleural effusions or pneumothorax. Mediastinum: Mediastinal contours appear normal. Heart size is normal. Bones and chest wall: No suspicious bony lesions. Overlying soft tissues appear unremarkable. IMPRESSION: No acute cardiopulmonary abnormality is seen. Previous button artifact overlying the right upper lobe is now absent. Approved by: Randy Willard M.D. on 08/19/2024 at 10:56 CTA chest abdomen pelvis: Radiologist's Impression: [address] [address] [address] Scan Report Signed Patient: Brennan Marmolejo Jr MR#: [id number] : 1955 Acct:[id number] Age/Sex: 69 / M Date of Service: 08/19/24 Loc: ED Accession Number: [id number] Procedure: CT angio chest abdomen pelvis Ordering Provider: Ashley Carrasco D.O. PROCEDURE: CT ANGIO CHEST ABDOMEN PELVIS INDICATIONS: chest/abd pain, htn, was here recent for abd pain TECHNIQUE: Precontrast 5 mm thick sections acquired from the lung apices to the iliac crests. After the administration of intravenous contrast, 2.5 mm thick sections again acquired from the lung apices to the iliac crests. Maximum intensity projection (MIP) oblique sagittal and coronal reformats were then acquired. For radiation dose reduction, the following was used: automated exposure control. COMPARISON: [facility], CT, CT ABDOMEN PELVIS W CON, 08/17/2024, 17:24. [facility], CT, CT ANGIO CHEST ABDOMEN PELVIS, 09/01/2021, 8:41. FINDINGS: Chest: Cardiovascular: Heart size is normal. No evidence of central pulmonary embolism, aortic aneurysm or dissection. Mild atherosclerotic vascular calcification Lungs and pleural spaces: The lung caballero are clear without nodule, infiltrate or interstitial prominence. Pleural spaces show no effusion or pneumothorax. Lymph nodes: No mediastinal, hilar or axillary adenopathy. Mediastinum: Unremarkable. No hiatal hernia. Thyroid within normal limits. Chest Wall and Bones: Old healed left-sided rib fractures. Right T5 transverse process osteoblastic lesion Abdomen and Pelvis: Liver: Capsular micro nodularity consistent with cirrhosis. Biliary system: No calcified cholelithiasis or pericholecystic inflammation. No intra or extrahepatic bile duct dilatation. Pancreas: Unremarkable without mass or inflammation evident. Spleen: Normal in size and density. Adrenals: Normal morphology and density. Reproductive system: Fiducial prostate markers Urinary system: Normal renal size and attenuation. Right renal cyst No renal calculi, hydronephrosis, or solid mass present. Urinary bladder unremarkable. Gastrointestinal system: Stable mild left-sided colonic wall thickening. Multiple diverticula arise from the sigmoid colon without evidence of diverticulitis. Appendix: No findings to suggest acute appendicitis. Lymph nodes: No mesenteric or retroperitoneal adenopathy. Peritoneal spaces: No free air. No free fluid. Vasculature: Mild atherosclerotic calcified and noncalcified plaque in the distal abdominal aorta common iliac vessels without evidence of aneurysm dissection. Moderate stenosis at the origin of the celiac axis. SMA widely patent. Abdominal wall: Small periumbilical ventral hernia contains fat bowel involvement Musculoskeletal: Osteoblastic lesions noted involving the right sacrum and L2 vertebral body IMPRESSION: Mild aortic atherosclerotic vascular disease without evidence of aneurysm or dissection. Stable mild colonic wall thickening may reflect mild colitis. No obstruction or abscess. No free air. Stable osteoblastic metastatic disease. Hepatic cirrhosis without focal mass lesion. Approved by: Randy Willard M.D. on 08/19/2024 at 12:04 ECG Data Attestation: I personally reviewed and interpreted this ECG as follows: Prior ECG tracings: available for review Interpretation: Sinus rhythm with sinus arrhythmia rate of 70, NH 148 QRS is 78 QTC 481 left axis deviation. Patient has prior from 09/13/2022 which appears similar. EKG2 shows sinus rhythm rate of 66 NH 146 QRS is 78 QTC of 494. No acute ST changes from earlier today. EKG 3 AFib rate of 121 QRS is 76 QTC of 502, nonspecific change. MDM Narrative Medical decision making narrative: 69-year-old male who presents with complaint of abdominal pain was here 2 days prior found to have little bit of colitis but has known metastases prostate cancer, patient also complaining of chest pain he was quite hypertensive. He states he has been able to take his blood pressure medications today had chest pain early this morning at 3:30 a.m. took a sublingual nitro which was helpful. He states he takes sublingual nitro maybe once monthly sometimes more frequently. Labs white count 7.4 hemoglobin of 12.7 appears stable to priors in the past 2 months. Platelets are 136 patient's intermittently thrombocytopenic. INR is 1.8, creatinine 0.94 BUN 25 CO2 is 20 sodium is 137 potassium 3.8 chloride of 106 and a glucose of 264 calcium is 9.5 total bilirubin is 1.1 AST is 82 ALT is 92 alk-phos is 108 total CK is 97 lipase is 206. Troponin is 0.022 BNP is elevated at 4790, this is up from patient's priors he has typically been maximum of 1890. EKG shows sinus rhythm appears similar to 09/13/[address] changes Chest x-ray no acute cardiopulmonary abnormality previous but no artifact overlying right upper lobe now present. Patient has had prior CTA that showed no aneurysm or dissection but that was several years ago he was quite hypertensive. We will repeat today CT chest abdomen pelvis angio shows mild aortic atherosclerotic vascular disease without evidence aneurysm or dissection, stable mild colonic wall thickening could reflect mild colitis no obstruction or abscess no free air stable osteoblastic metastatic disease hepatic 3 assist without focal mass lesion. Patient had nitro here in the department for blood pressure he is currently chest pain free. He does have persistent abdominal pain she was given dose of pain medication as well as antiemetic. Patient notes he is due for his regular narcotic pain medication so we will order this as well. Patient was also given a dose of Lasix here in the department. Patient continues to be hypertensive had some improvement in the department. Shortly after patient's 2nd EKG you develop tachycardia he does have a history of atrial fibrillation appears fairly regular so EKG was obtained he was given a dose of IV metoprolol. Patient requested additional pain medication. Patient has some intermittent AFib RVR, appears to be rate controlled after metoprolol. Discussed with Dr. Foley, patient has elevated BNP although does not appear fluid overloaded did develop AFib RVR he was anticoagulated did respond to metoprolol but comes in with multiple complaints quite hypertensive improved after metoprolol but was very persistently elevated. She agrees for observation does ask that we give a dose of oral metoprolol here in the department. Discharge Plan Departure Patient Disposition: Admitted as Observation Clinical Impression: Abdominal pain, Atrial fibrillation with RVR, Hypertensive urgency Admit Date/Time: 08/19/24 15:25 Admit Provider: Blanquita Foley
--- NOTE | 2024-08-19 11:02 | DI.RAD.S_ITS ---
PROCEDURE: XR CHEST 1V INDICATIONS: chest pain TECHNIQUE: One view of the chest was acquired. COMPARISON: [facility], CR, XR CHEST 2V, 07/16/2024, 11:17. FINDINGS: Surgical changes and devices: None. Lungs and pleura: Lungs are clear. No pleural effusions or pneumothorax. Mediastinum: Mediastinal contours appear normal. Heart size is normal. Bones and chest wall: No suspicious bony lesions. Overlying soft tissues appear unremarkable. IMPRESSION: No acute cardiopulmonary abnormality is seen. Previous button artifact overlying the right upper lobe is now absent. Approved by: Randy Willard M.D. on 08/19/2024 at 10:56
[2024-08-19 11:10] LABS: INR 1.6 (0.9-1.3); Prothrombin Time 17.5 SECONDS (9.4-12.5)
[2024-08-19 11:12] LABS: Add Manual Diff / Slide Review NO; Basophils Absolute Auto 0 /uL (0-100); Basophils Percent Auto 0.3 % (0-2); Eosinophils Absolute Auto 0 /uL (0-450); Eosinophils Percent Auto 0.2 % (2-4); Hematocrit 36.7 % (41-53); Hemoglobin 12.7 g/dL (13.5-17.5); Lymphocytes Absolute Auto 900 /uL (1100-4500); Lymphocytes Percent Auto 11.9 % (25-40); Mean Corpuscular HGB Conc 34.7 % (30-36); Mean Corpuscular Hemoglobin 32.1 PG (26-34); Mean Corpuscular Volume 92.6 fL (80-100); Monocytes Absolute Auto 700 /uL (0-900); Monocytes Percent Auto 9.1 % (3-14); Neutrophils Absolute Auto 5800 /uL (1500-7000); Neutrophils Percent Auto 78.5 % (50-75); Platelet Count 136 X10^3/uL (150-400); Red Blood Cell Count 3.96 X10^6/uL (4.5-5.9); Red Cell Distribution Width 12.6 % (11.6-14.8); White Blood Cell Count 7.4 X10^3/uL (4.5-11.0)
[2024-08-19 11:13] LABS: PTT Partial Thromboplastin Tim 32 SECONDS (25.1-36.5)
[2024-08-19 11:15] LABS: Alanine Aminotransferase 92 IU/L (<50); Albumin 4.4 g/dL (3.5-5.0); Albumin Globulin Ratio 1.4 (1.0-2.8); Alkaline Phosphatase 108 U/L (38-126); Aspartate Aminotransferase 82 IU/L (17-59); BUN Creatinine Ratio 26.6 (6-22); Bilirubin Total 1.1 mg/dL (0.2-1.3); Blood Urea Nitrogen 25 mg/dL (9-20); Calcium 9.5 mg/dL (8.4-10.2); Carbon Dioxide 20 mmol/L (22-32); Chloride 106 mmol/L (98-107); Creatine Kinase 97 U/L (55-170); Estimated Glomerular Filt Rate > 60 mL/min (>60); Globulin 3.2 g/dL (1.7-4.1); Glucose 264 mg/dL (80-110); HEMOLYSIS 18 (0-50); Lipase 206 U/L (23-300); Potassium 3.8 mmol/L (3.4-5.1); Sodium 137 mmol/L (137-145); Total Protein 7.6 g/dL (6.3-8.2)
--- NOTE | 2024-08-19 11:17 | DI.CT.S_ITS ---
PROCEDURE: CT ANGIO CHEST ABDOMEN PELVIS INDICATIONS: chest/abd pain, htn, was here recent for abd pain TECHNIQUE: Precontrast 5 mm thick sections acquired from the lung apices to the iliac crests. After the administration of intravenous contrast, 2.5 mm thick sections again acquired from the lung apices to the iliac crests. Maximum intensity projection (MIP) oblique sagittal and coronal reformats were then acquired. For radiation dose reduction, the following was used: automated exposure control. COMPARISON: [facility], CT, CT ABDOMEN PELVIS W CON, 08/17/2024, 17:24. [facility], CT, CT ANGIO CHEST ABDOMEN PELVIS, 09/01/2021, 8:41. FINDINGS: Chest: Cardiovascular: Heart size is normal. No evidence of central pulmonary embolism, aortic aneurysm or dissection. Mild atherosclerotic vascular calcification Lungs and pleural spaces: The lung caballero are clear without nodule, infiltrate or interstitial prominence. Pleural spaces show no effusion or pneumothorax. Lymph nodes: No mediastinal, hilar or axillary adenopathy. Mediastinum: Unremarkable. No hiatal hernia. Thyroid within normal limits. Chest Wall and Bones: Old healed left-sided rib fractures. Right T5 transverse process osteoblastic lesion Abdomen and Pelvis: Liver: Capsular micro nodularity consistent with cirrhosis. Biliary system: No calcified cholelithiasis or pericholecystic inflammation. No intra or extrahepatic bile duct dilatation. Pancreas: Unremarkable without mass or inflammation evident. Spleen: Normal in size and density. Adrenals: Normal morphology and density. Reproductive system: Fiducial prostate markers Urinary system: Normal renal size and attenuation. Right renal cyst No renal calculi, hydronephrosis, or solid mass present. Urinary bladder unremarkable. Gastrointestinal system: Stable mild left-sided colonic wall thickening. Multiple diverticula arise from the sigmoid colon without evidence of diverticulitis. Appendix: No findings to suggest acute appendicitis. Lymph nodes: No mesenteric or retroperitoneal adenopathy. Peritoneal spaces: No free air. No free fluid. Vasculature: Mild atherosclerotic calcified and noncalcified plaque in the distal abdominal aorta common iliac vessels without evidence of aneurysm dissection. Moderate stenosis at the origin of the celiac axis. SMA widely patent. Abdominal wall: Small periumbilical ventral hernia contains fat bowel involvement Musculoskeletal: Osteoblastic lesions noted involving the right sacrum and L2 vertebral body IMPRESSION: Mild aortic atherosclerotic vascular disease without evidence of aneurysm or dissection. Stable mild colonic wall thickening may reflect mild colitis. No obstruction or abscess. No free air. Stable osteoblastic metastatic disease. Hepatic cirrhosis without focal mass lesion. Approved by: Randy Willard M.D. on 08/19/2024 at 12:04
[2024-08-19] MEDS: ONDANSETRON 4 MG/2 ML INJ IV (11:21)
[2024-08-19] MEDS: HYDROMORPHONE 1 MG INJ IV ×4 (11:21→23:57)
[2024-08-19] MEDS: NITROGLYCERIN OINT 1 INCH/GM OINT...G. TOP (11:21)
[2024-08-19 11:26] LABS: NT-proBNP (BNP-Adult 18+) 4790 pg/mL (<125); Troponin I 0.019 ng/mL (0.01-0.034)
--- NOTE | 2024-08-19 11:55 | PC.NURSE ---
placed by another HCP
[2024-08-19] MEDS: MORPHINE IR 15 MG TABLET 7.5 MG PO (12:28)
[2024-08-19] MEDS: FUROSEMIDE 40 MG/4 ML VIAL IV (12:29)
[2024-08-19 13:20] LABS: Troponin I 0.022 ng/mL (0.01-0.034)
--- NOTE | 2024-08-19 13:36 | EKG_ITS ---
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
[2024-08-19] MEDS: METOPROLOL TARTRATE 5 MG/5 ML INJ IV (13:49)
[2024-08-19] MEDS: HYDROMORPHONE 0.5 MG INJ IV (13:49)
--- NOTE | 2024-08-19 13:51 | EKG_ITS ---
[place] [address] [place] [address] Test Date: 2024-08-19 Pat Name: Brennan Marmolejo Jr Department: Room: 216 Gender: Male Fruit Washer: SHAMIKA : 1955 Requested By: Order Number: [id number] Reading MD: Khang Vasques MD Measurements Intervals [place] Rate: 121 P: MA: QRS: -6 QRSD: 76 T: 51 QT: 354 QTc: 502 Interpretive Statements Atrial fibrillation with rapid ventricular response Possible Anterior infarct , age undetermined Electronically Signed On 08-19-2024 17:07:47 PST by Khang Vasques MD
--- NOTE | 2024-08-19 19:01 | DI.ECHO.S_ITS ---
[facility] : : [address] : : [place] : : [id number] : : Phone: [phone] Echocardiogram Report + + :Name: RAFIA SNIDER Study Date: 08/20/2024 Height: 67 in : :Hospital ReadingLocation: Weight: 135 lb : : Gender: Male BSA: 1.7 m2 : :: 1955 Age: 69 yrs BP: 107/76 mmHg: :Reason For Study: SHORTNESS OF BREATH : :Ordering Physician: ELEAZAR, : :CASSY Performed By: Hannah Jolley : :Referring: CASSY BUSH : + + Interpretation Summary The left ventricular cavity is small. The ejection fraction is estimated to be 70-75%. The aortic valve is slightly calcified. Comparison is made with the echocardiogram of 03/20/2024, LV function has improved significantly. Procedure: A two-dimensional transthoracic echocardiogram with color flow and Doppler was performed. The study quality was technically adequate. Comparison is made with the echocardiogram of 03/20/2024. The patient was in sinus bradycardia with heart rates between 57-60 bpm during the exam. Left Ventricle: The left ventricle is normal in size. The left ventricular cavity is small. The ejection fraction is estimated to be 70-75%. There are no focal wall motion abnormalities. Diastolic function could not be accurately assessed due to unobtainable data. Right Ventricle: The right ventricle is normal in size and function. Atria: The left atrial size is normal. Right atrial size is normal. There is no Doppler evidence for an interatrial shunt. Mitral Valve: The mitral valve leaflets appear mildly thickened, but open well. There is trace mitral regurgitation. Aortic Valve: The aortic valve is slightly calcified. The aortic valve opens well. There is no aortic valve stenosis. No aortic regurgitation is present. Tricuspid Valve: The tricuspid valve leaflets are thin and pliable. There is trace tricuspid regurgitation. The right ventricular systolic pressure is estimated to be at least 24 mmHg based on an estimated right atrial pressure of 3 mm Hg. Pulmonic Valve: The pulmonic valve is not well seen, but is grossly normal. There is a trace or physiologic amount of pulmonic regurgitation. Great Vessels: The aortic root is borderline dilated. The ascending aorta is at the upper limits of normal in size. The IVC is of normal diameter and collapses greater than 50% with a sniff. This suggests a low right atrial pressure of 3 mm Hg. Pericardium/ Pleura There is a trivial pericardial effusion noted. There is no pleural effusion. MMode/2D Measurements & Calculations LVIDd: 4.0 cm LVOT diam: 2.3 cm LVIDs: 2.6 cm Ao root diam: 4.0 cm FS: 33.6 % asc Aorta Diam: 3.8 cm IVSd: 0.98 cm Ao Arch Diam (Prox Trans): 2.7 cm LVPWd: 0.86 cm LV chi. diameter/BSA (cm/m^2): 2.3 LV sys. diameter/BSA (cm/m^2): 1.5 LA A2 area: 12.1 cm2 RA long axis: 3.9 cm LA A4 area: 11.1 cm2 RA area: 11.6 cm2 LA length (vol): 4.2 cm RA vol: 29.6 ml LA vol: 26.8 ml RA : 17.3 ml/m2 LA vol index: 15.7 ml/m2 IVC diam: 1.4 cm RVD1 (basal): 3.5 cm RVD2 (mid): 2.5 cm TAPSE: 2.3 cm Doppler Measurements & Calculations Ao V2 max: 105.7 cm/sec LVOT Max Miah: 97.9 cm/sec Ao V2 mean: 77.2 cm/sec LV V1 max P.8 mmHg Ao max P.5 mmHg LV V1 VTI: 19.0 cm Ao mean P.6 mmHg ZEUS(I,D): 3.7 cm2 Ao V2 VTI: 21.7 cm ZEUS(V,D): 3.9 cm2 sev ratio: 0.87 ZEUS indexed to BSA (cm^2/m^2): 2.1 MV E max miah: 54.1 cm/sec TR max miah: 229.4 cm/sec MV A max miah: 68.5 cm/sec TR max P.1 mmHg MV E/A: 0.79 PA V2 max: 71.1 cm/sec Med Peak E' Miah: 3.7 cm/sec PA V2 mean: 51.1 cm/sec E/E' med: 14.6 PA mean P.1 mmHg MV dec time: 0.24 sec PA pr(Accel): 10.5 mmHg SV(LVOT): 79.8 ml Electronically signed by: Sohan Medrano on Reading Physician:08/20/2024 08:26 AM
--- NOTE | 2024-08-19 19:04 | P.HP_ITS ---
History of Present Illness History of Present Illness Date Patient Seen: 08/19/24 Time Patient Seen: 19:04 Chief complaint: chest pain/ abd pain Narrative: This is a very pleasant 69-year-old male who presents to the ER for evaluation of abdominal pain and chest pain. He has history of prostate cancers with a metastases to the lumbar and pelvic bone, hypertension, dyslipidemia, diabetes, atrial fibrillation on apixaban and chronic pain, previous coronary artery disease status post stent placement on Plavix and Eliquis..? Patient presents with complaint of chest pain as well as abdominal pain.? Patient was seen in ER on 08/17/2024 has had some persistent abdominal pain that was initially started after having a large bowel movement.? He states still present although not quite as intense.? He does note that he had some chest pain last night at about 330 in the morning, he took his morphine and nitro sublingual about 5:00 a.m..? The nitro did resolve his chest pressure.? He states no fevers, he feels chronically short of breath.? Patient states he vomit a little bit of bile in his improved from his last visit.? He states he was able to take his morning medications for blood pressure with some eggnog.? Patient states he has alternated between diarrhea and constipation, reportedly had a bowel movement here in the department but has not had any since he left although states it is usually every 2 or 3 days he has a bowel movement.? Denies any new urinary symptoms.? Denies any new swelling in extremities.? Patient states no new medication changes since he left the hospital.? He notes he has been quite hypertensive since he left.?? His workup in the ER included chest x-ray which was normal and labs which were remarkable for normal electrolytes, BUN creatinine, LFTs and CBC. Patient did have elevated bnp but no evidence of fluid overload on exam. The patient had CT scan of the chest abdomen and pelvis that showed no evidence of dissection of the aorta, showed no evidence of pneumonia, there is persistent evidence of bony metastases to the spine and hips. Previously [address] showed colitis which seems to have resolved. Given patient's persistent symptoms his reports of chest pain with worsening shortness of breath and significant hypertension not improving with medical treatment and then subsequent development of AFib with RVR he was admitted to the hospital for further workup and evaluation Twelve point review of systems otherwise negative No cough. No blood in his stool. No headaches. No fevers. No rash no urine symptoms Patient stopped chemotherapy for prostate cancer with metastases in October of 2023 Past medical history 1. Metastatic prostate cancer 2. Type 2 diabetes controlled with metformin 3. Hypertension 4. Atrial fibrillation on chronic anticoagulation 5. History of coronary artery disease status post stent placement 6. Chronic systolic heart failure 7. Generalized anxiety disorder 8. Uncomplicated opioid dependence 9. History of hepatitis-C, treated in 1989 10. Mixed hyperlipidemia Allergies no known drug allergies Past surgical history: 1. History of coronary artery stent placement 2. History of angioplasty coronary arteries 3. Inguinal hernia repair x2 4. Laminectomy Social history: Patient lives in and [place] in his house. He has a caregiver. He is single. He is 3 children. 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 Family history Dad of esophageal cancer with metastases to liver at age 78 Mom of old age and loneliness at age 82 Siblings are healthy [facility] Medical History Hematuria Uncomplicated opioid dependence Generalized anxiety disorder Cannabis abuse Prostate cancer (~05/2019) Paroxysmal A-fib Transaminitis Kidney stones Diverticulosis of large intestine (03/31/12) Chronic hepatitis Coronary artery disease involving solomon coronary artery of solomon heart without angina pectoris (~2006) Essential hypertension Mixed hyperlipidemia Surgical History H/O heart artery stent (~2006) Hx of inguinal hernia surgery (~03/07/14) Hx of inguinal hernia surgery (~09/20/08) Status post laminectomy History of angioplasty (~12/2006) Social History marital status: unmarried,single number of children: 3 household members: friend(s) and other lives independently: Yes caregiver/support person: No housing: house pets and animals: No education level: high school occupational status: other 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/jewish: None leisure activities: music, fishing and other Smoking Status: Former smoker Tobacco: How many years used: 56 Smokeless tobacco user: other quit status: has quit before second hand exposure: Yes (On farmland/Boat.) alcohol intake: former substance use type: does not use and marijuana eating out: rarely or never Type(s) of exercise: normal ROM and activity and additional Meds Home Medications and Allergies Home Medications Medication Instructions Recorded Confirmed Type promethazine 25 mg rectal 25 mg GA Q4-6H PRN nausea and 11/18/20 08/19/24 Rx suppository vomiting #12 ea tamsulosin 0.4 mg capsule 0.4 mg PO DAILY 09/15/21 08/19/24 History atorvastatin 80 mg tablet 80 mg PO BEDTIME 07/30/22 08/19/24 History metformin 500 mg tablet 500 mg PO BID #180 tabs 09/26/23 08/19/24 Rx metoprolol succinate 100 mg 100 mg PO BID #180 tabs 09/27/23 08/19/24 Rx tablet,extended release 24 hr apixaban 2.5 mg tablet (Eliquis) 2.5 mg PO BID 03/29/24 08/19/24 History clopidogrel 75 mg tablet 75 mg PO DAILY 03/29/24 08/19/24 History nitroglycerin 0.4 mg sublingual 0.4 mg sublingual Q5-15M PRN Chest 03/29/24 08/19/24 History tablet Pain ondansetron HCl 4 mg tablet 4 mg PO Q8H PRN Nausea And Vomiting 03/29/24 08/19/24 History sennosides 8.6 mg tablet (senna) 8.6 mg PO DAILY constipation 03/29/24 08/19/24 History isosorbide mononitrate 30 mg 60 mg PO DAILY 04/27/24 08/19/24 History tablet,extended release 24 hr duloxetine 20 mg capsule,delayed 20 mg PO DAILY #90 caps 07/16/24 08/19/24 Rx release (Cymbalta) lidocaine 5 % topical patch 1 patch topical DAILY #15 ea 07/26/24 08/03/24 Rx aspirin [Adult Low Dose Aspirin] 81 mg PO QAM 08/03/24 08/19/24 History morphine 10 mg/5 mL oral solution 10 mg (5 mL) PO Q6H PRN pain #100 08/07/24 08/19/24 Rx mL morphine 15 mg immediate release 7.5 - 15 mg (0.5 - 1 x 15 mg) PO 08/13/24 08/19/24 Rx tablet Q4H PRN chest pain/bone pain #120 tabs lisinopril 10 mg tablet 10 mg PO DAILY 08/19/24 08/19/24 History Allergies Allergy/AdvReac Type Severity Reaction Status Date / Time No Known Drug Allergies Allergy Verified 08/03/24 08:53 Review of Systems Review of Systems Narrative: See HPI Exam Vital Signs (past 8 hours): - 08/19/24 11:21 08/19/24 11:22 08/19/24 11:22 Pulse Rate 70 74 Respiratory Rate 13 Blood Pressure 204/123 H 225/125 H Pulse Oximetry 99 Oxygen Delivery Method 08/19/24 11:30 08/19/24 11:30 08/19/24 11:59 Pulse Rate 73 Respiratory Rate 13 Blood Pressure 204/123 H 205/114 H Pulse Oximetry 100 Oxygen Delivery Method 08/19/24 11:59 08/19/24 12:00 08/19/24 12:00 Pulse Rate 72 72 Respiratory Rate 14 14 Blood Pressure 199/120 H Pulse Oximetry 100 100 Oxygen Delivery Method 08/19/24 12:30 08/19/24 12:30 08/19/24 13:00 Pulse Rate 66 70 Respiratory Rate 12 14 Blood Pressure 206/122 H Pulse Oximetry 98 98 Oxygen Delivery Method 08/19/24 13:26 08/19/24 13:26 08/19/24 13:27 Pulse Rate 69 77 Respiratory Rate 15 12 Blood Pressure 223/128 H 223/128 H Pulse Oximetry 99 98 Oxygen Delivery Method 08/19/24 13:30 08/19/24 13:30 08/19/24 14:00 Pulse Rate 74 Respiratory Rate 19 Blood Pressure 209/122 H 172/121 H Pulse Oximetry 98 Oxygen Delivery Method 08/19/24 14:00 08/19/24 14:30 08/19/24 14:31 Pulse Rate 117 H 80 83 Respiratory Rate 15 12 14 Blood Pressure Pulse Oximetry 98 98 98 Oxygen Delivery Method 08/19/24 14:31 08/19/24 15:00 08/19/24 15:00 Pulse Rate 106 H Respiratory Rate 11 L Blood Pressure 118/74 121/62 Pulse Oximetry 98 Oxygen Delivery Method 08/19/24 15:30 08/19/24 15:30 08/19/24 16:27 Pulse Rate 74 Respiratory Rate 11 L Blood Pressure 117/79 Pulse Oximetry 97 Oxygen Delivery Method Room Air Oxygen Delivery Method Room Air Narrative Exam Narrative: 69-year-old male who appears older than his stated age lying comfortably in the hospital bed calm and alert and oriented x3. Good historian HEENT is unremarkable, mucus membranes moist and pink Neck: Supple without adenopathy or thyromegaly Chest: Clear to auscultation without wheezes rhonchi or crackles Cor: Regular rate and rhythm without a murmur Abdomen: Positive bowel sounds soft with slightly distended in the right upper quadrant and tenderness in the midepigastrium and right upper quadrant. No pain in the bilateral lower quadrants. No guarding or rebound. No peritoneal signs. Extremities no edema pulses intact Neurologic exam nonfocal Objective Labs 08/19/24 10:53 08/19/24 10:53 Labs: Laboratory Results - last 24 hr 08/19/24 08/19/24 10:53 12:50 WBC 7.4 D RBC 3.96 L Hgb 12.7 L Hct 36.7 L MCV 92.6 MCH 32.1 MCHC 34.7 RDW 12.6 Plt Count 136 L Neut % (Auto) 78.5 H Lymph % (Auto) 11.9 L [place] % (Auto) 9.1 Eos % (Auto) 0.2 L Baso % (Auto) 0.3 Neut # (Auto) 5800 Lymph # (Auto) 900 L [place] # (Auto) 700 Eos # (Auto) 0 Baso # (Auto) 0 PT 17.5 H INR 1.6 H APTT 32 Sodium 137 Potassium 3.8 Chloride 106 Carbon Dioxide 20 L BUN 25 H Creatinine 0.94 Estimated GFR > 60 BUN/Creatinine Ratio 26.6 H Glucose 264 H Calcium 9.5 Total Bilirubin 1.1 AST 82 H ALT 92 H Alkaline Phosphatase 108 Total Creatine Kinase 97 Troponin I 0.019 0.022 NT-Pro-B Natriuret Pep 4790 H Total Protein 7.6 Albumin 4.4 Globulin 3.2 Albumin/Globulin Ratio 1.4 Lipase 206 D Assessment & Plan Assessment & Plan narrative: Very pleasant 61-year-old male under the primary care of Dr. Vasques who is admitted for marked hypertension not improving with intervention, chest pain with history of coronary artery disease and stents in improvement in his pain with nitroglycerin, and abdominal pain with difficulty keeping medications down in the setting of prostate cancer with metastases to the spine and hips Assessment 1. Chest pain with known history of coronary artery disease improves with nitroglycerin at home. Patient currently with a nitro patch on in part to improve his blood pressure and troponins were normal and BNP was elevated for him but no sign of aortic dissection, pericarditis or fluid overload on imaging. We will admit to the hospital for further evaluation and monitoring. Will repeat enzymes in the morning. We will continue with as needed nitroglycerin continue with his outpatient medications. Continue Plavix Assessment 2. Severe hypertension which is now normal. We will continue his outpatient medications and continue to monitor and treat his pain. He was given an extra 50 mg of immediate release metoprolol in the ER in addition to 5 mg IV prior to this. Nitro paste was applied as well. As long as his blood pressure continues where it is and he does not have any further chest pain then we will remove the nitro paste Assessment 3. AFib with RVR that developed in the hospital now controlled with metoprolol Plan: Continue outpatient metoprolol 100 mg twice daily orally. Will continue to treat pain. Will continue on Eliquis. Assessment 4. Abdominal pain of unclear etiology, possibly had colitis. No evidence of obstruction or acute infection at this time. No evidence of surgical abdomen. Will provide proton pump inhibitor. Will treat pain. Will recheck labs in the morning. Patient was able to eat dinner tonight. Assessment 5. Prostate cancer with metastases Plan: Will do IV Dilaudid tonight and then switch over to patient's morphine he takes 7.5 mg usually every 4 hours as needed. Assessment 6. Anxiety stable Plan: Continue outpatient duloxetine Code status is DNR/DNI 70 7 minutes was spent with patient discussing with the ER physician, reviewing his chart and workup in the ER meeting with patient formulating a plan and documentation Time-Based Coding :: [TOTAL MINUTES] spent with patient and on the chart (including review of chart, obtaining history, exam, reviewing outside data, placing orders, documenting exam and treatment plan, and counseling patient) on [DATE].
[2024-08-19] MEDS: ATORVASTATIN 20 MG TABLET 80 MG PO (21:14)
[2024-08-19] MEDS: METFORMIN HCL 500 MG TABLET PO (21:14)
[2024-08-19] MEDS: MORPHINE 10 MG/0.5 ML ORAL SYRINGE PO (21:15)
[2024-08-19] MEDS: APIXABAN 5 MG TABLET 2.5 MG PO (21:15)
[2024-08-19] MEDS: SODIUM CHLORIDE 0.9% FLUSH 10 ML IV (23:57)
[2024-08-20] VITALS (10 sets, daily range): BP systolic 100–123; BP diastolic 71–84; PULSE 59–66; RESP 12–18; TEMP 35.6–36.4; O2SAT 98–99
[2024-08-20] MEDS: HYDROMORPHONE 1 MG INJ IV ×5 (04:31→22:08)
[2024-08-20 05:44] LABS: Add Manual Diff / Slide Review NO; Basophils Absolute Auto 100 /uL (0-100); Eosinophils Absolute Auto 100 /uL (0-450); Eosinophils Percent Auto 2.5 % (2-4); Hematocrit 34.6 % (41-53); Lymphocytes Absolute Auto 1500 /uL (1100-4500); Lymphocytes Percent Auto 26.2 % (25-40); Mean Corpuscular HGB Conc 34.7 % (30-36); Mean Corpuscular Hemoglobin 32.2 PG (26-34); Mean Corpuscular Volume 92.8 fL (80-100); Monocytes Absolute Auto 800 /uL (0-900); Monocytes Percent Auto 13.6 % (3-14); Neutrophils Absolute Auto 3200 /uL (1500-7000); Neutrophils Percent Auto 56.7 % (50-75); Platelet Count 130 X10^3/uL (150-400); Red Blood Cell Count 3.73 X10^6/uL (4.5-5.9); Red Cell Distribution Width 12.8 % (11.6-14.8); White Blood Cell Count 5.7 X10^3/uL (4.5-11.0)
[2024-08-20 05:57] LABS: Creatine Kinase 45 U/L (55-170)
[2024-08-20 05:58] LABS: Alanine Aminotransferase 83 IU/L (<50); Albumin 4.1 g/dL (3.5-5.0); Albumin Globulin Ratio 1.3 (1.0-2.8); Alkaline Phosphatase 91 U/L (38-126); Aspartate Aminotransferase 90 IU/L (17-59); BUN Creatinine Ratio 27.8 (6-22); Bilirubin Total 1.1 mg/dL (0.2-1.3); Blood Urea Nitrogen 30 mg/dL (9-20); Carbon Dioxide 22 mmol/L (22-32); Chloride 102 mmol/L (98-107); Estimated Glomerular Filt Rate > 60 mL/min (>60); Globulin 3.2 g/dL (1.7-4.1); Glucose 172 mg/dL (80-110); Potassium 3.8 mmol/L (3.4-5.1); Sodium 134 mmol/L (137-145); Total Protein 7.3 g/dL (6.3-8.2)
[2024-08-20 06:01] LABS: HEMOLYSIS 81 (0-50)
[2024-08-20] MEDS: PANTOPRAZOLE DR 20 MG TABLET PO (06:04)
[2024-08-20 06:06] LABS: NT-proBNP (BNP-Adult 18+) 4680 pg/mL (<125)
[2024-08-20 06:08] LABS: Troponin I 0.018 ng/mL (0.01-0.034)
[2024-08-20] MEDS: MORPHINE 10 MG/0.5 ML ORAL SYRINGE PO ×2 (06:09→19:57)
--- NOTE | 2024-08-20 07:50 | PM.PN.1 ---
Subjective Subjective Date Patient Seen: 08/20/24 Time Patient Seen: 07:50 Interval history: Patient well known to me looks like he presented with his usual several day prodrome of abdominal pain nausea vomiting followed by intermittent inability to keep his meds down probably causing significant hypertension cardiac dysrhythmias including AFib etcetera Since admission patient's blood pressure has been much better. Abdominal symptoms are improved. Blood sugars were initially okay. Patient remains in sinus rhythm at this time Patient did have a somewhat elevated for him BNP and so repeat echo has been ordered by admitting physician. His troponins have remained normal x3 This morning patient is feeling improved. He is sitting up working on eating breakfast. Exam Vital Signs (past 8 hours): - 08/20/24 00:00 08/20/24 00:02 08/20/24 04:00 Temperature 97.5 F L 96.0 F L Pulse Rate 60 60 63 Respiratory Rate 16 Blood Pressure 118/84 100/76 107/76 Pulse Oximetry 99 99 Oxygen Flow Rate 0 0 Oxygen Delivery Method Room Air Oxygen Flow Rate 0 Objective Labs 08/20/24 05:25 08/20/24 05:25 Labs: Laboratory Results - last 24 hr 08/19/24 08/19/24 08/20/24 10:53 12:50 05:25 WBC 7.4 D 5.7 RBC 3.96 L 3.73 L Hgb 12.7 L 12.0 L Hct 36.7 L 34.6 L MCV 92.6 92.8 MCH 32.1 32.2 MCHC 34.7 34.7 RDW 12.6 12.8 Plt Count 136 L 130 L Neut % (Auto) 78.5 H 56.7 D Lymph % (Auto) 11.9 L 26.2 [place] % (Auto) 9.1 13.6 Eos % (Auto) 0.2 L 2.5 Baso % (Auto) 0.3 1.0 Neut # (Auto) 5800 3200 Lymph # (Auto) 900 L 1500 [place] # (Auto) 700 800 Eos # (Auto) 0 100 Baso # (Auto) 0 100 PT 17.5 H INR 1.6 H APTT 32 Sodium 137 134 L Potassium 3.8 3.8 Chloride 106 102 Carbon Dioxide 20 L 22 BUN 25 H 30 H Creatinine 0.94 1.08 Estimated GFR > 60 > 60 BUN/Creatinine Ratio 26.6 H 27.8 H Glucose 264 H 172 H Calcium 9.5 9.0 Total Bilirubin 1.1 1.1 AST 82 H 90 H ALT 92 H 83 H Alkaline Phosphatase 108 91 Total Creatine Kinase 97 45 L Troponin I 0.019 0.022 0.018 NT-Pro-B Natriuret Pep 4790 H 4680 H Total Protein 7.6 7.3 Albumin 4.4 4.1 Globulin 3.2 3.2 Albumin/Globulin Ratio 1.4 1.3 Lipase 206 D [facility] Medical History Colitis Hematuria Uncomplicated opioid dependence Generalized anxiety disorder Cannabis abuse Prostate cancer (~05/2019) Paroxysmal A-fib Transaminitis Kidney stones Diverticulosis of large intestine (03/31/12) Chronic hepatitis Coronary artery disease involving menominee coronary artery of menominee heart without angina pectoris (~2006) Essential hypertension Mixed hyperlipidemia Surgical History H/O heart artery stent (~2006) Hx of inguinal hernia surgery (~03/07/14) Hx of inguinal hernia surgery (~09/20/08) Status post laminectomy History of angioplasty (~12/2006) Social History marital status: unmarried,single number of children: 3 household members: friend(s) and other lives independently: Yes caregiver/support person: No housing: house pets and animals: No education level: high school occupational status: other 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 Abdominal pain with nausea vomiting-patient with multiple episodes of this over time. With some IV fluids as necessary to maintain hydration, parental antiemetics and narcotics for pain patient usually does much better in his able to take orals without difficulty get back on his usual meds and goes home within 24-48 hours. Nothing really unusual from a GI standpoint from his presentation this time. His abdominal CT demonstrates again some left-sided colonic wall thickening which on colonoscopy did not demonstrate any abnormality, and this has been present for several years at this point. Lab work was unremarkable. Therefore plan to continue with usual regimen of parental antiemetics pain control as well as as needed IV fluids depending on oral intake 2. Atrial fibrillation-patient with known paroxysmal atrial fibrillation. Spontaneously returned to sinus rhythm which he has maintained since admission. Continue usual meds which includes anticoagulation with Eliquis. 3. Elevated BNP-echo today seems reasonable. Patient with no significant coronary disease but is very much in a palliative care mode without desire or agreement for any sort of intervention treat to control symptoms primarily. Will see what his echo looks like what he certainly does not appear to be volume overloaded to me at this point 4. Diabetes-continue patient's usual meds kind of place him on a carbohydrate consistent diet, cover with short-acting insulin as necessary 5. Chronic hepatitis-patient's labs and imaging continue demonstrate evidence of cirrhosis/chronic hepatitis. Thought to be due to hepatitis-C although level of transaminase elevation is somewhat inconsistent with that. GI when he was last seen did not really have any other thoughts however, and this is been sometime since he was last seen, and his labs have been stably abnormal at this level for many many years at this point 6. Prostate cancer-patient's primary largest problem. Still has significant pain discomfort etcetera related to his ongoing prostate cancer. This is the primary etiology for his desire to be palliative almost even comfort care only. 7. Anxiety-patient with a significant level of anxiety. He uses cannabis and morphine I believe to control his symptoms. He also continues on Cymbalta. I have been unable to get him off his narcotics despite attempts and now that he is more of a confirmed palliative care/comfort care patient this seems less important Time-Based Coding :: [TOTAL MINUTES] spent with patient and on the chart (including review of chart, obtaining history, exam, reviewing outside data, placing orders, documenting exam and treatment plan, and counseling patient) on [DATE]. PROFEE Charge codes Subsequent inpatient/observation care: 52128
[2024-08-20] MEDS: APIXABAN 5 MG TABLET 2.5 MG PO ×2 (08:51→20:01)
[2024-08-20] MEDS: CLOPIDOGREL 75 MG TABLET PO (08:51)
[2024-08-20] MEDS: METFORMIN HCL 500 MG TABLET PO ×2 (08:52→22:00)
[2024-08-20] MEDS: DULOXETINE 20 MG CAPSULE PO (08:52)
[2024-08-20] MEDS: SODIUM CHLORIDE 0.9% FLUSH 10 ML IV ×2 (08:52→22:09)
[2024-08-20] MEDS: TAMSULOSIN 0.4 MG CAPSULE PO (08:52)
[2024-08-20] MEDS: SENNOSIDES 8.6 MG TABLET PO (08:52)
[2024-08-20] MEDS: METOPROLOL ER 50 MG TABLET 100 MG PO ×2 (08:53→20:00)
--- NOTE | 2024-08-20 13:31 | CM.DANOTE ---
Initial DCP Assessment Visit Note Reviewed EMR and team rounds for status updates. Met with pt at bedside to introduce self and role, pt was found to be resting quietly, in no apparent distress, and pain well managed at the time of this visit. Pt resides modified independently in his own home in [place]. He has a wire taper that lives in a trailer on his property, and is available to assist pt at any time. Additionally, pt has a cg, Lisandra, that comes to assist him 3 or more times per week as needed. His cg will also plan to drive him home at time of d/c. Payor: [employer] Medicare Adv PCP: Dr. Vasques Pt is a 69 year-old with a hx of metastatic prostate cancer, hypertension, diabetes, Afib, and chronic pain. He presented yesterday afternoon via EMS for the second time this week with c/o chest pain and abdominal pain that has been persistent for several days. He was found to be hypertensive, however eventual workup did reveal some intermittent Afib with RVR. He was placed in OBS for continued monitoring and tx, was started on IV lasix, pain meds, and antiemetics. Plan was for ECHO, which was completed today and negative for abnormalities. Will will continue pain meds/fluids for 1-more night inpt. Will continue to monitor for final d/c needs and recommendations. Discharge Planning/Care Management CM Discharge Assessment Start: 08/20/24 13:21 Freq: Status: Active Protocol: Document 08/20/24 13:21 DPL (Rec: 08/20/24 13:22 DPL [id number]) Discharge Planning Assessment Assigned Oracle Software Engineer JAYME Negron Advance Directives? Yes: KAMILA Advance Directives on File No History Provided By Patient,Medical Record Has Patient been admitted in last 30 No days? Comment No, but pt was last seen in the ED on 08/17/24 for same issues. Prior Living Arrangements House Household Members friend(s),other Comment Pt's wire taper lives on a trailor on his property. Type of transporation used prior to Relies on Others admit Comment Pt's friend and his cg both assist with his transportation needs. Independent with ADL's No: modified independent with a lot of assistance from his cg. Is patient alert and oriented? Yes Needs Assistance With Meal Prep,Managing Medications ,Home Chores / Shopping Caregiver for Another No Comment OP Oncology DME Already Rented / Owned Wheelchair,Elevated Toilet Seat,FWW / Walker,Cane Comment OP palliative care Barriers to Discharge No Comment Patient's friends Peg and Lisandra assist him throughout the week with meds, ADLs, transportation Discharge Plan Home Transportation Arrangement Patient reports that Lisandra can pick him up at time of d/c . Referrals Initiated None needed If patient plan is home with home health No : Has signed face to face form been completed? Whiteboard Updated in Patient Room with Yes name and ext. # of Oracle Software Engineer Review Status In Process Please Provide Date Initial DC 08/20/24 Assessment Was Performed
--- NOTE | 2024-08-20 15:18 | PT-IP ANOTE ---
PT consult received. Pt declines assessment and OOB with PT today. He requests pain medication and PT speaks with nsg. Pt with pain and feeling poorly in setting of metastatic prostate CA and note report he desires comfort/palliative care. Con't PT efforts and sign off if he does not wish to participate with PT.
[2024-08-20] MEDS: INSULIN LISPRO 100 UNIT/ML 3ML VIAL SUBCUT (18:19)
[2024-08-20] MEDS: ATORVASTATIN 20 MG TABLET 80 MG PO (20:00)
[2024-08-21] VITALS: BP 107/74; PULSE 66; TEMP 36.1; O2SAT 98
[2024-08-21] MEDS: HYDROMORPHONE 1 MG INJ IV (01:57)
[2024-08-21 04:00] VITALS: BP 111/65; PULSE 61; RESP 12; TEMP 36.1; O2SAT 97
[2024-08-21] MEDS: MORPHINE 10 MG/0.5 ML ORAL SYRINGE PO (06:22)
[2024-08-21] MEDS: PANTOPRAZOLE DR 20 MG TABLET PO (06:22)
--- NOTE | 2024-08-21 06:51 | P.DS_ITS ---
History of Present Illness History of Present Illness Date Patient Seen: 08/21/24 Time Patient Seen: 06:52 Chief complaint: chest pain/ abd pain Narrative: This is a very pleasant 69-year-old male who presents to the ER for evaluation of abdominal pain and chest pain. He has history of prostate cancers with a metastases to the lumbar and pelvic bone, hypertension, dyslipidemia, diabetes, atrial fibrillation on apixaban and chronic pain, previous coronary artery disease status post stent placement on Plavix and Eliquis..? Patient presents with complaint of chest pain as well as abdominal pain.? Patient was seen in ER on 08/17/2024 has had some persistent abdominal pain that was initially started after having a large bowel movement.? He states still present although not quite as intense.? He does note that he had some chest pain last night at about 330 in the morning, he took his morphine and nitro sublingual about 5:00 a.m..? The nitro did resolve his chest pressure.? He states no fevers, he feels chronically short of breath.? Patient states he vomit a little bit of bile in his improved from his last visit.? He states he was able to take his morning medications for blood pressure with some eggnog.? Patient states he has alternated between diarrhea and constipation, reportedly had a bowel movement here in the department but has not had any since he left although states it is usually every 2 or 3 days he has a bowel movement.? Denies any new urinary symptoms.? Denies any new swelling in extremities.? Patient states no new medication changes since he left the hospital.? He notes he has been quite hypertensive since he left.?? His workup in the ER included chest x-ray which was normal and labs which were remarkable for normal electrolytes, BUN creatinine, LFTs and CBC. Patient did have elevated bnp but no evidence of fluid overload on exam. The patient had CT scan of the chest abdomen and pelvis that showed no evidence of dissection of the aorta, showed no evidence of pneumonia, there is persistent evidence of bony metastases to the spine and hips. Previously [address] showed colitis which seems to have resolved. Given patient's persistent symptoms his reports of chest pain with worsening shortness of breath and significant hypertension not improving with medical treatment and then subsequent development of AFib with RVR he was admitted to the hospital for further workup and evaluation. {From Dr. Foley's H&P 08/19/2024} Discharge Providers Provider Date of admission: 08/19/24 15:25 Discharge Date: 08/21/24 Primary care physician: Khang Vasques MD Consults: 08/19/24 17:54 Consult to Physical Therapy Evaluate & Treat Comment: Physician Instructions: Evaluate and Treat Discharge provider: Khang Vasques MD Summary Hospital Course Discharge Diagnosis: 1. Hypertensive urgency, resolved 2. Abdominal pain, resolved 3. Nausea and vomiting, resolved 4. Atrial fibrillation with rapid ventricular response, resolved 5. Paroxysmal atrial fibrillation 6. Diabetes type 2 7. Prostate cancer 8. Coronary artery disease 9. Generalized anxiety disorder 9. Uncomplicated opioid dependence Hospital Course: Patient presented as above. This is similar to previous presentations although he did go into atrial fibrillation in the ER which is more unusual. He was spontaneously converted back to sinus rhythm and had no further dysrhythmias on monitoring With parental antiemetics and pain medication patient's symptoms subsided rapidly. He was able to eat and drink by the next day without particular pain discomfort and certainly no emesis or nausea Patient did have a minimally elevated BNP upon admission but he was not hypoxic. He was not really felt to have significant volume overload or congestive heart failure. Repeat echocardiography demonstrated stable to improved cardiac function. Patient does have known coronary disease but had normal troponins throughout despite his symptoms which included his significant hypertension Patient's hypertension was markedly high in the ER with his ongoing abdominal symptoms but quickly normalized with improvement in his GI symptoms Patient's diabetes was very well controlled with his usual medications By the day of discharge patient was much improved. He was felt to be stable to return home to continue his usual medications without change Status at Discharge Cognitive/behavioral status at discharge: at baseline, oriented Functional status at discharge: independent ambulation Overall status at discharge: patient is back to baseline Time Spent with Patient Time spent: Less than 30 minutes Exam Vital Signs (past 8 hours): - 08/21/24 00:00 08/21/24 04:00 Temperature 96.9 F L 96.9 F L Pulse Rate 66 61 Respiratory Rate 12 Blood Pressure 107/74 111/65 Pulse Oximetry 98 97 Oxygen Flow Rate 0 0 Oxygen Delivery Method Room Air Oxygen Flow Rate 0 Objective Labs 08/20/24 05:25 08/20/24 05:25 [facility] Medical History Colitis Hematuria Uncomplicated opioid dependence Generalized anxiety disorder Cannabis abuse Prostate cancer (~05/2019) Paroxysmal A-fib Transaminitis Kidney stones Diverticulosis of large intestine (03/31/12) Chronic hepatitis Coronary artery disease involving [place] coronary artery of [place] heart without angina pectoris (~2006) Essential hypertension Mixed hyperlipidemia Surgical History H/O heart artery stent (~2006) Hx of inguinal hernia surgery (~03/07/14) Hx of inguinal hernia surgery (~09/20/08) Status post laminectomy History of angioplasty (~12/2006) Social History marital status: unmarried,single number of children: 3 household members: other lives independently: Yes caregiver/support person: No housing: house pets and animals: No education level: high school occupational status: other 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/hoahaoism: None leisure activities: music, fishing and other Smoking Status: Former smoker Tobacco: How many years used: 56 Smokeless tobacco user: other quit status: has quit before second hand exposure: Yes (On farmland/Boat.) alcohol intake: former substance use type: does not use and marijuana eating out: rarely or never Type(s) of exercise: normal ROM and activity and additional Discharge Assessment & Plan Assessment and Plan Plan of Treatment: Patient to return home and resume all usual medications. No change in medications based on this hospitalization. Patient was require a new prescription for his oral morphine tablets, local pharmacies are currently unable to obtain the 15 mg morphine tablets so new prescription for the 30 mg version with instructions for patient to cut these in half was written at time of discharge He will need outpatient follow up with his PCP Dr. Vasques in approximately 2 weeks' time, as well as contact with the transitional care management team in the clinic prior to that Discharge Plan Discharge Plan Patient Disposition: Home Discharge orders & Medications Prescriptions: New morphine 30 mg tablet 15 - 30 mg PO Q6H MDD 60mg PRN (Reason: pain) Qty: 30 0RF Continued metformin 500 mg tablet 500 mg PO BID Qty: 180 3RF metoprolol succinate 100 mg tablet extended release 24 hr 100 mg PO BID Qty: 180 3RF duloxetine [Cymbalta] 20 mg capsule,delayed release(DR/EC) 20 mg PO DAILY Qty: 90 3RF morphine 10 mg/5 mL solution 10 mg PO Q6H PRN (Reason: pain) Qty: 100 0RF morphine 15 mg tablet 7.5 - 15 mg PO Q4H MDD 60mg PRN (Reason: chest pain/bone pain) Qty: 120 0RF atorvastatin 80 mg tablet 80 mg PO BEDTIME Eliquis 2.5 mg tablet 2.5 mg PO BID clopidogrel 75 mg tablet 75 mg PO DAILY sennosides [senna] 8.6 mg tablet 8.6 mg PO DAILY nitroglycerin 0.4 mg tablet, sublingual 0.4 mg sublingual Q5-15M PRN (Reason: Chest Pain) ondansetron HCl 4 mg tablet 4 mg PO Q8H PRN (Reason: Nausea And Vomiting) aspirin [Adult Low Dose Aspirin] 81 mg PO QAM tamsulosin 0.4 mg capsule 0.4 mg PO DAILY Patient Comments: take 1 capsule by mouth once daily lisinopril 10 mg tablet 10 mg PO DAILY promethazine 25 mg suppository 25 mg NM Q4-6H PRN (Reason: nausea and vomiting) Qty: 12 0RF No Action isosorbide mononitrate 30 mg tablet extended release 24 hr 30 mg PO DAILY Patient Comments: Per Significant other Lisandra. Follow up/Referrals: Khang Vasques MD [Primary Care Provider] - 09/03/24 10:30 am (Appt:09/03 @ 10:[address] Vasques please arrive 15 min prior to scheduled appointment time ) Discharge Health Status Multidrug resistant organism: No MDRO Diet/Activity/Treatments Diet: Diet as Tolerated and Carb-consistent/Diabetic Visit Report/Discharge Packet Instructions: DI for Prescription Opioid Use Stand Alone Forms: Congestive Heart Failure, Patient Portal/API, Stroke Signs & Symptoms Discharge Data Primary Care Provider: Khang Vasques Attending Provider: Khang Vasques Admit Date/Time: 08/19/24 15:25 PROFEE Charge Codes Discharge inpatient/observation: [id number]
--- NOTE | 2024-08-21 07:53 | CM.DPC ---
DCP Discharge Home Per MD, pt is tolerating diet and bp and heart rate controlled and medically stable to d/c home today and no identified barriers to discharge and to follow up with PCP in about 2 weeks. SW notified the TCM group requesting an appointment to be scheduled with Dr. Vasques in about two weeks time. Per PT, pt declined ambulating or working with PT yesterday as his preference is more comfort focused at this time. Pt's friend/CG to provide transport home today. JAYME Haynes
[2024-08-21 08:00] VITALS: BP 113/81; PULSE 65; RESP 17; TEMP 36.2; O2SAT 100
--- NOTE | 2024-08-21 08:35 | PC.NURSE ---
Patient sitting upright in bed having breakfast. States his caregiver should be able to pick him up between 11-12 today, and he is looking forward to going home. Tolerating meals, no questions at this time, call light within reach.
[2024-08-21] MEDS: DULOXETINE 20 MG CAPSULE PO (09:55)
[2024-08-21] MEDS: SENNOSIDES 8.6 MG TABLET PO (09:55)
[2024-08-21] MEDS: CLOPIDOGREL 75 MG TABLET PO (09:55)
[2024-08-21] MEDS: APIXABAN 5 MG TABLET 2.5 MG PO (09:55)
[2024-08-21] MEDS: METFORMIN HCL 500 MG TABLET PO (09:57)
[2024-08-21] MEDS: METOPROLOL ER 50 MG TABLET 100 MG PO (09:57)
[2024-08-21] MEDS: ISOSORBIDE MONONITRATE ER 30 MG TABLET 60 MG PO (09:57)
[2024-08-21] MEDS: TAMSULOSIN 0.4 MG CAPSULE PO (09:57)
[2024-08-21] MEDS: SODIUM CHLORIDE 0.9% FLUSH 10 ML IV (09:58)
--- NOTE | 2024-08-21 10:15 | PT.IIE ---
Current Diagnoses Malignant neoplasm of prostate (08/19/24) Other specified disorders of bone, unspecified site (08/19/24) Chest pain, unspecified (08/19/24) Surgical History (Last Reviewed 08/21/24 @ 06:55 by Khang Vasques MD) H/O heart artery stent (~2006) History of angioplasty (~12/2006) Hx of inguinal hernia surgery (~09/20/08) Hx of inguinal hernia surgery (~03/07/14) Status post laminectomy Medical History (Last Reviewed 08/21/24 @ 06:55 by Khang Vasques MD) Cannabis abuse Chronic hepatitis Colitis Coronary artery disease involving [place] coronary artery of [place] heart without angina pectoris (~2006) Diverticulosis of large intestine (03/31/12) Essential hypertension Generalized anxiety disorder Hematuria Kidney stones Mixed hyperlipidemia Paroxysmal A-fib Prostate cancer (~05/2019) Transaminitis Uncomplicated opioid dependence Physical Therapy Inpatient Evaluation/Re-Eval M1 PT/OT-IP Prior Functional Status Start: 08/20/24 15:14 Freq: NEEDED Status: Discharge Protocol: Document 08/21/24 10:15 AB (Rec: 08/21/24 13:10 AB [id number]) Medical Review Prior Functional Status Medical History Reviewed Yes Communication able to make needs known Mobility and Gait pt stated that he was modified independent with all mobilities and ambulation using a FWW; occasionally without AD or uses his SPC. pt uses his manual w/c depending on his pain level Social History Household Members other Living Arrangements House Number of Floors (Floors) 3 or More Floors Number of Stairs To Enter/Railing? pt stays on main level of the house ramp to enter Home Environment Standard Height Toilet,Tub/ Shower,Ramp Home Equipment Front Wheel Walker,Straight Cane,Manual Wheelchair,Tub Transfer Bench,Hand Held Shower,Grab Bars In Shower Additional Social History Comment pt has a toilet safety frame pt has an adjustable bed pt has a caregiver that comes in 4x/week for ~ 4 hours to assist pt stated that he has friend who lives next to his property who also assists him if needed M2 PT-IP Current Condition Start: 08/20/24 15:14 Freq: NEEDED Status: Discharge Protocol: Document 08/21/24 10:15 AB (Rec: 08/21/24 13:10 AB [id number]) Physical Therapy Current Condition Current Condition Evaluation Date 08/21/24 Treatment Diagnosis abdominal pain; A-fib; difficulty in walking Onset Date 08/19/24 M3 PT-IP Subjective Start: 08/20/24 15:14 Freq: NEEDED Status: Discharge Protocol: Document 08/21/24 10:15 AB (Rec: 08/21/24 13:10 [id number]) Subjective Physical Therapy Visit Type Type Initial Evaluation Visit Start Time 10:15 Visit Stop Time 10:40 Number of ASSISTANT PROFESSOR OF PHYSICS Visits 0 Physical Therapy Visit Comments Patient Comments agreeable to do PT Therapy Pain Assessment Pain When Pain Assessed At Rest Pain Present Pain Present Pain Reported Location Abdomen Intensity 5 M4 PT-IP Mobility and Gait Start: 08/20/24 15:14 Freq: NEEDED Status: Discharge Protocol: Document 08/21/24 10:15 AB (Rec: 08/21/24 13:10 [id number]) PT-Bed Mobility Assessment Supine to Sit Supine to Sit Independent Sit to Supine Sit to Supine Independent PT-Transfer Assessment Sit to and From Stand Sit to and from Stand Standby Assistance,1 Person Assistance,Use of Upper Extremities Equipment Transfer Assistive Device Gait Belt,Front Wheeled Walker Orthotic/Prosthetic Devices or Brace: No Transfers Transfer Destination Bed Transfer Technique ambulated Transfer Ability Level of Assist Standby Assistance,1 Person Assistance,Use of Upper Extremities Comments Mobility Comments checked on pt and pt using the toilet. pt was able to complete sit to stand from the toilet SBA and ambulated to the sink using FWW SBA. pt able to maintain standing SBA while completing handwashing. pt ambulated using fWW to sit on EOB. obtained PLOF and home set up from pt. pt completed bed mobiltiy sit<> supine mod I. pt agreed to walk in the hallway and completed ~ 250 ft using FWW SBA. pt requested to go back to bed. completed sit to supine mod I. positioned pt in bed. call light and table placed within reach. Gait Assessment Gait Gait Assistance Required: Standby Assistance Distance (Feet) 250 Able to Maintain Weight Bearing Status Yes During Gait Assistive Devices Assistive Device Gait Belt,Front Wheeled Walker Orthotic/Prosthetic Devices or Brace: No Factors Limiting Gait Function Factors Limiting Gait Function Decreased Activity Tolerance, Decreased Strength,Limited Range of Motion,Pain,Poor Balance,Poor Safety Awareness PT-Balance Assessment Sitting Balance and Reactions Static Sitting Balance Ability Normal Dynamic Sitting Balance Ability Good Standing Balance and Reactions Static Standing Balance Ability Good Dynamic Standing Balance Ability Fair Device Used FWW M5 PT-IP Objective Assessments Start: 08/20/24 15:14 Freq: NEEDED Status: Discharge Protocol: Document 08/21/24 10:15 AB (Rec: 08/21/24 13:10 AB [id number]) Orientation Orientation/Cognition Level of Alertness Alert Orientation Name,Place,Situation Language Function Ability No Deficits Noted Safety Awareness Understands Safety Issues Memory Description No Deficits Noted Gross Range of Motion Lower Extremity ROM Assessment Within Functional Limits Strength Lower Extremity Strength Assessment Within Functional Limits Muscle Tone Muscle Tone WNL Yes M6 PT-IP Treatment Start: 08/20/24 15:14 Freq: NEEDED Status: Discharge Protocol: Document 08/21/24 10:15 AB (Rec: 08/21/24 13:10 AB [id number]) Physical Therapy Treatment Education Education Provided Safety M7 PT-IP Assessment and Plan Start: 08/20/24 15:14 Freq: NEEDED Status: Discharge Protocol: Document 08/21/24 10:15 AB (Rec: 08/21/24 13:10 AB [id number]) PT Summary Assessment and Plan Potential Rehabilitation Potential Fair Status of Condition at Evaluation Evolving Summary Impairments Pain,ROM,Strength,Balance, Coordination,Sensation,Tone, Cognition,Bed Mobility, Transfers,Gait,Activity Tolerance Assessment Summary pt is a 69 y/o M who is admitted for a-fib, abdominal pain and hypertensive urgency. pt has dx of prostated CA with bone mets. pt requiring SBA with mobility using fWW for safety and completed ambulation without LOB. pt lives alone but has a caregiver that comes in 4x/ week to assist him as needed. pt may go home when medically stable. Goals Transfer Goal Independent,Front Wheeled Walker Gait Goal Independent,Front Wheel Walker Gait Distance 300 Days to Meet Goals 5 Frequency of Treatment Frequency Of Treatment Once a Day Treatment Plan Physical Therapy Treatment Plan Bed Mobility Training,Transfer Training,Gait Training, Therapeutic Exercise,Balance Retraining,Discharge Planning, Hot or Cold Pack,Neuromuscular Re-ed,Coordination Retraining Recommendations To Nursing Amount of Assist Needed 1 Person Assist Discharge Recommendations PT Discharge Recommendations Home with Assistance,Home Health Transportation Needs at Discharge Private Vehicle
--- NOTE | 2024-08-21 11:56 | PC.NURSE ---
Discharge instructions and home care handouts reviewed with patient and his friend/caregiver Lisandra. They state understanding and have no further questions or concerns at this time. Patient has follow up appointment scheduled, tolerating diet, denies abdominal pain. Patient attempted to use bathroom for stool this morning but did not have a BM, passing gas, states he will add in his miralax at home prn constipation. Patient eager for discharge to home, escorted out via wheelchair with all his belongings to discharge to home.
--- NOTE | 2024-08-27 11:21 | PC.NURSE ---
Late entry for 08/21/2024: Dilaudid 1mg IV given at 08/21/24 955am (scan did not save) as ordered prn for pain; given for generalized chronic body pains. Patient tolerated well and upon re evaluation had adequate pain relief and was anticipating discharge to home.
== END 2024-08-21 11:58 | disposition home or self-care (01) ==
LOC: ED 15:12 → AC 15:25
PROVIDERS: Admitting Provider Family Medicine; Emergency Provider Emergency Medicine; PCP Internal Medicine; Referring Provider Emergency Medicine; Visit Provider Internal Medicine
DX: I16.0 Hypertensive urgency (principal); R07.9 Chest pain, unspecified; R11.2 Nausea with vomiting, unspecified; R10.9 Unspecified abdominal pain; C61 Malignant neoplasm of prostate; C79.51 Secondary malignant neoplasm of bone; I11.0 Hypertensive heart disease with heart failure; I50.22 Chronic systolic (congestive) heart failure; E11.9 Type 2 diabetes mellitus without complications; I48.0 Paroxysmal atrial fibrillation; G89.29 Other chronic pain; F41.9 Anxiety disorder, unspecified; E78.2 Mixed hyperlipidemia; F11.20 Opioid dependence, uncomplicated; Z87.891 Personal history of nicotine dependence; Z66 Do not resuscitate; Z79.84 Long term (current) use of oral hypoglycemic drugs; Z79.01 Long term (current) use of anticoagulants
CPT/HCPCS: 36415; 71045; 71275; 74174; 80053; 82550; 82962; 83690; 83880; 84484; 85025; 85610; 85730; 93005; 93010; 93306; 96374; 96375; 96376; 97116; 97162; 99233; 99238; 99284; G0378; J1171; J1815; J1940; J2405; Q9967

== ENCOUNTER 2024-09-14 15:11 | Observation (INO) | payer MEDICARE, OTHER, SELFPAY ==
[2024-08-19 17:20] VITALS: BMI 20.3
[2024-09-14] VITALS (28 sets, daily range): BP systolic 125–229; BP diastolic 75–137; PULSE 61–101; RESP 8–29; TEMP 36.1–36.6; O2SAT 95–99; BMI 20.3
[2024-09-14] MEDS: ONDANSETRON 4 MG/2 ML INJ IV ×2 (15:18→20:08)
--- NOTE | 2024-09-14 15:28 | EKG_ITS ---
[facility] [place] [id number] [place] [id number] Test Date: 2024-09-14 Pat Name: Brennan Marmolejo Jr Department: [facility] Room: Gender: Male Edge Dyer: ERNESTINA : 1955 Requested By: Order Number: [id number] Reading MD: Stanford Curtis Measurements Intervals Wheeler Rate: 60 P: 57 HI: 164 QRS: -29 QRSD: 74 T: 63 QT: 520 QTc: 520 Interpretive Statements Normal sinus rhythm with sinus arrhythmia Possible Left atrial enlargement Possible Anterior infarct , age undetermined Prolonged QT Electronically Signed On 09-14-2024 18:22:47 PST by Stanford Curtis
[2024-09-14] MEDS: KETOROLAC 30 MG/ML VIAL 15 MG IV (15:38)
[2024-09-14] MEDS: SODIUM CHLORIDE 0.9% 1,000 ML 1000 ML IV (15:39)
[2024-09-14 16:05] LABS: Add Manual Diff / Slide Review NO; Basophils Absolute Auto 0 /uL (0-100); Basophils Percent Auto 0.6 % (0-2); Eosinophils Absolute Auto 0 /uL (0-450); Eosinophils Percent Auto 0.2 % (2-4); Hematocrit 37.4 % (41-53); Hemoglobin 12.9 g/dL (13.5-17.5); Lymphocytes Absolute Auto 700 /uL (1100-4500); Lymphocytes Percent Auto 14.5 % (25-40); Mean Corpuscular HGB Conc 34.4 % (30-36); Mean Corpuscular Hemoglobin 30.8 PG (26-34); Mean Corpuscular Volume 89.7 fL (80-100); Monocytes Absolute Auto 200 /uL (0-900); Monocytes Percent Auto 4.6 % (3-14); Neutrophils Absolute Auto 3800 /uL (1500-7000); Neutrophils Percent Auto 80.1 % (50-75); Platelet Count 141 X10^3/uL (150-400); Red Blood Cell Count 4.17 X10^6/uL (4.5-5.9); Red Cell Distribution Width 12.9 % (11.6-14.8); White Blood Cell Count 4.7 X10^3/uL (4.5-11.0)
--- NOTE | 2024-09-14 16:12 | ED_ITS ---
HPI - General Adult General Chief complaint: Abdominal Pain Stated complaint: Abd pain 2 days,nausea/vomiting Time Seen by Provider: 09/14/24 15:33 Source: patient Mode of arrival: EMS Related Data Home Medications Medication Instructions Recorded Confirmed tamsulosin 0.4 mg capsule 0.4 mg PO DAILY 09/15/21 09/03/24 atorvastatin 80 mg tablet 80 mg PO BEDTIME 07/30/22 09/03/24 apixaban 2.5 mg tablet (Eliquis) 2.5 mg PO BID 03/29/24 09/03/24 clopidogrel 75 mg tablet 75 mg PO DAILY 03/29/24 09/03/24 nitroglycerin 0.4 mg sublingual 0.4 mg sublingual Q5-15M PRN Chest 03/29/24 09/03/24 tablet Pain ondansetron HCl 4 mg tablet 4 mg PO Q8H PRN Nausea And Vomiting 03/29/24 09/03/24 sennosides 8.6 mg tablet (senna) 8.6 mg PO DAILY constipation 03/29/24 09/03/24 aspirin [Adult Low Dose Aspirin] 81 mg PO QAM 08/03/24 09/03/24 lisinopril 10 mg tablet 10 mg PO DAILY 08/19/24 09/03/24 isosorbide mononitrate 30 mg 30 mg PO DAILY 08/21/24 09/03/24 tablet,extended release 24 hr Previous Rx's Medication Instructions Recorded promethazine 25 mg rectal 25 mg GA Q4-6H PRN nausea and 11/18/20 suppository vomiting #12 ea metformin 500 mg tablet 500 mg PO BID #180 tabs 09/26/23 metoprolol succinate 100 mg 100 mg PO BID #180 tabs 09/27/23 tablet,extended release 24 hr duloxetine 20 mg capsule,delayed 20 mg PO DAILY #90 caps 07/16/24 release (Cymbalta) morphine 10 mg/5 mL oral solution 10 mg (5 mL) PO Q6H PRN pain #100 08/07/24 mL morphine 15 mg immediate release 7.5 - 15 mg (0.5 - 1 x 15 mg) PO 08/13/24 tablet Q4H PRN chest pain/bone pain #120 tabs morphine 30 mg immediate release 15 - 30 mg (0.5 - 1 x 30 mg) PO 08/20/24 tablet Q6H PRN pain #30 tabs Allergies Allergy/AdvReac Type Severity Reaction Status Date / Time No Known Drug Allergies Allergy Verified 09/14/24 15:20 Patient History Medical History (Updated 09/03/24 @ 10:49 by Khang Vasques MD) Hypertensive urgency Colitis Hematuria Uncomplicated opioid dependence Generalized anxiety disorder Cannabis abuse Prostate cancer (~05/2019) Paroxysmal A-fib Transaminitis Kidney stones Diverticulosis of large intestine (03/31/12) Chronic hepatitis Coronary artery disease involving [place] coronary artery of [place] heart without angina pectoris (~2006) Essential hypertension Mixed hyperlipidemia Surgical History H/O heart artery stent (~2006) Hx of inguinal hernia surgery (~03/07/14) Hx of inguinal hernia surgery (~09/20/08) Status post laminectomy History of angioplasty (~12/2006) Social History marital status: unmarried,single number of children: 3 household members: other lives independently: Yes caregiver/support person: No housing: house pets and animals: No education level: high school occupational status: other 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/taoist: None leisure activities: music, fishing and other Smoking Status: Former smoker Tobacco: How many years used: 56 Smokeless tobacco user: other quit status: has quit before second hand exposure: Yes (On farm[place]/Boat.) alcohol intake: former substance use type: does not use and marijuana eating out: rarely or never Type(s) of exercise: normal ROM and activity and additional Smoking Status: Former smoker alcohol intake frequency: 0-2 drinks per day Alcohol type: beer Exam Initial Vital Signs Initial Vital Signs: Vital Signs Temperature 97.0 F L 09/14/24 15:10 Pulse Rate 61 09/14/24 15:10 Respiratory Rate 13 09/14/24 15:10 Blood Pressure 200/105 H 09/14/24 15:10 Pulse Oximetry 99 09/14/24 15:10 Oxygen Delivery Method Room Air 09/14/24 15:10 Course Orders Ordered: ED Orders 09/14/24 15:16 EKG-12 Lead Stat 09/14/24 15:55 Complete Blood Count AUTO DIFF Stat Comprehensive Metabolic Panel Stat Lipase Stat Prothrombin Time INR Stat Sodium Chloride (Normal Saline 0.9%) 1,000 mls @ 1,000 mls/hr IV BOLUS ONE Stop: 09/14/24 16:33 Last Admin: 09/14/24 15:39 Dose: 1,000 mls/hr Documented By: CAMILO Ondansetron HCl (Ondansetron 4 Mg/2 Ml Inj) 4 mg IV NOW PRN PRN Reason: Nausea And Vomiting Last Admin: 09/14/24 15:18 Dose: 4 mg Documented By: CAMILO Ondansetron HCl (Ondansetron 4 Mg Odt) 4 mg PO NOW PRN PRN Reason: Nausea And Vomiting Discontinued Medications Ketorolac Tromethamine (Ketorolac 30 Mg/Ml Vial) 15 mg IV NOW ONE Stop: 09/14/24 15:34 Last Admin: 09/14/24 15:38 Dose: 15 mg Documented By: CAMILO Vital Signs Vital signs: Vital Signs - 8 hr 09/14/24 15:10 Temperature 97.0 F L Pulse Rate 61 Respiratory Rate 13 Blood Pressure 200/105 H Pulse Oximetry 99 Oxygen Delivery Method Room Air Medical Decision Making Lab Data 09/14/24 15:55 09/14/24 15:55 Labs: Lab Results 09/14/24 Range/Units 15:55 WBC 4.7 (4.5-11.0) X10^3/uL RBC 4.17 L (4.5-5.9) X10^6/uL Hgb 12.9 L (13.5-17.5) g/dL Hct 37.4 L (41-53) % MCV 89.7 (80-100) fL MCH 30.8 (26-34) PG MCHC 34.4 (30-36) % RDW 12.9 (11.6-14.8) % Plt Count 141 L (150-400) X10^3/uL Neut % (Auto) 80.1 H (50-75) % Lymph % (Auto) 14.5 L (25-40) % [place] % (Auto) 4.6 (3-14) % Eos % (Auto) 0.2 L (2-4) % Baso % (Auto) 0.6 (0-2) % Neut # (Auto) 3800 (7262-6914) /uL Lymph # (Auto) 700 L (5519-9683) /uL [place] # (Auto) 200 (0-900) /uL Eos # (Auto) 0 (0-450) /uL Baso # (Auto) 0 (0-100) /uL Discharge Plan Departure Prescriptions: No Action metformin 500 mg tablet 500 mg PO BID Qty: 180 3RF metoprolol succinate 100 mg tablet extended release 24 hr 100 mg PO BID Qty: 180 3RF duloxetine [Cymbalta] 20 mg capsule,delayed release(DR/EC) 20 mg PO DAILY Qty: 90 3RF morphine 10 mg/5 mL solution 10 mg PO Q6H PRN (Reason: pain) Qty: 100 0RF morphine 15 mg tablet 7.5 - 15 mg PO Q4H MDD 60mg PRN (Reason: chest pain/bone pain) Qty: 120 0RF atorvastatin 80 mg tablet 80 mg PO BEDTIME Eliquis 2.5 mg tablet 2.5 mg PO BID clopidogrel 75 mg tablet 75 mg PO DAILY sennosides [senna] 8.6 mg tablet 8.6 mg PO DAILY nitroglycerin 0.4 mg tablet, sublingual 0.4 mg sublingual Q5-15M PRN (Reason: Chest Pain) ondansetron HCl 4 mg tablet 4 mg PO Q8H PRN (Reason: Nausea And Vomiting) aspirin [Adult Low Dose Aspirin] 81 mg PO QAM isosorbide mononitrate 30 mg tablet extended release 24 hr 30 mg PO DAILY Patient Comments: Per Significant other Lisandra. tamsulosin 0.4 mg capsule 0.4 mg PO DAILY Patient Comments: take 1 capsule by mouth once daily lisinopril 10 mg tablet 10 mg PO DAILY morphine 30 mg tablet 15 - 30 mg PO Q6H MDD 60mg PRN (Reason: pain) Qty: 30 0RF promethazine 25 mg suppository 25 mg GA Q4-6H PRN (Reason: nausea and vomiting) Qty: 12 0RF Referrals: Khang Vasques MD [Primary Care Provider] -
--- NOTE | 2024-09-14 16:13 | DI.CT.S_ITS ---
PROCEDURE: CT HEAD/BRAIN WO CON INDICATIONS: altered mental status TECHNIQUE: Noncontrast 4.5 mm thick angled axial sections acquired from the foramen magnum to the vertex, with coronal and sagittal reformats. For radiation dose reduction, the following was used: automated exposure control, adjustment of mA and/or kV according to patient size. COMPARISON: [facility], CT, CT HEAD/BRAIN WO CON, 09/21/2021, 12:43. FINDINGS: Image quality: Diagnostic. CSF spaces: Basal cisterns are patent. No extra-axial fluid collections. The ventricles are symmetric in size and shape. Brain: No intracranial bleeds or masses. There is cerebral volume loss for age, with resultant ventricular and sulcal prominence. There are periventricular and deep white matter chronic small vessel ischemic changes. There is intracranial internal carotid artery atherosclerosis. Skull and face: Calvarium and visualized facial bones appear intact, without suspicious lesions. Sinuses: Visualized sinuses and mastoids are clear. IMPRESSION: No acute intracranial pathology. Dictated by: Ethan Peñaloza M.D. on 09/14/2024 at 17:03 Approved by: Ethan Peñaloza M.D. on 09/14/2024 at 17:04
--- NOTE | 2024-09-14 16:13 | DI.CT.S_ITS ---
PROCEDURE: CT ABDOMEN PELVIS W CON INDICATIONS: abd pain and vomiting TECHNIQUE: After the administration of intravenous contrast, axial sections acquired from the lung bases to the pubic symphysis. Coronal and sagittal reformats were performed. For radiation dose reduction, the following was used: automated exposure control, adjustment of mA and/or kV according to patient size. COMPARISON: [facility], CT, CT ABDOMEN PELVIS W CON, 08/17/2024, 17:24. FINDINGS: Image quality: Diagnostic. Lower Chest: No significant findings. ABDOMEN: Liver: Cirrhosis. Single phase contrast evaluation is suboptimal for detection of hepatocellular carcinoma. No large mass identified. Patent portal vein. Gallbladder: No radiopaque gallstones or wall thickening. Biliary ducts: No biliary dilation. Pancreas: No ductal dilation. Calcified parenchyma, consistent with chronic pancreatitis. Spleen: Size is within normal limits. Adrenal Glands: No adrenal nodules. Kidneys and Ureters: No hydronephrosis. No solid mass. No complex renal cystic lesion which requires follow up. Stomach and Bowel: Abdominal not rotation, with the large bowel in the left hemiabdomen and the small bowel in the right hemiabdomen. Colonic diverticulosis without evidence of diverticulitis. Normal appendix. No dilation of the small bowel to suggest volvulus. Peritoneum: No abnormal intraperitoneal fluid. No free air. Ventral Wall: No significant ventral hernia. Abdominal Nodes: No retroperitoneal or mesenteric adenopathy by size criteria. Vessels: Aorta and inferior vena cava are normal in size. Recannulized umbilical vein. PELVIS: Pelvic Organs: Fiducial markers within the prostate. Bladder: No bladder wall thickening, accounting for underdistention. Pelvic Nodes: No enlarged lymph nodes. Miscellaneous: No inguinal hernias are seen. Bones: No aggressive osseous abnormality. Dense bony lesion in the L2 body and right sacrum, presumably a sequela prosthetic metastatic disease. IMPRESSION: No acute abnormality. Cirrhosis with secondary evidence of portal hypertension. Consider hepatic encephalopathy given symptoms. 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 Colonic diverticulosis without evidence of diverticulitis. Other chronic findings as above. Dictated by: Ethan Peñaloza M.D. on 09/14/2024 at 17:04 Approved by: Ethan Peñaloza M.D. on 09/14/2024 at 17:09
[2024-09-14 16:14] LABS: INR 1.4 (0.9-1.3); Prothrombin Time 16.1 SECONDS (9.4-12.5)
[2024-09-14 16:19] LABS: Alanine Aminotransferase 83 IU/L (<50); Albumin 4.6 g/dL (3.5-5.0); Albumin Globulin Ratio 1.2 (1.0-2.8); Alkaline Phosphatase 127 U/L (38-126); Aspartate Aminotransferase 88 IU/L (17-59); BUN Creatinine Ratio 22.6 (6-22); Bilirubin Total 1.5 mg/dL (0.2-1.3); Blood Urea Nitrogen 19 mg/dL (9-20); Carbon Dioxide 18 mmol/L (22-32); Chloride 107 mmol/L (98-107); Estimated Glomerular Filt Rate > 60 mL/min (>60); Glucose 238 mg/dL (80-110); HEMOLYSIS < 15 (0-50); Lipase 43 U/L (23-300); Potassium 4.1 mmol/L (3.4-5.1); Sodium 137 mmol/L (137-145); Total Protein 8.6 g/dL (6.3-8.2)
--- NOTE | 2024-09-14 17:13 | ED.ABDPAIN ---
HPI - Abdominal Pain General Chief Complaint: Abdominal Pain Stated Complaint: Abd pain 2 days,nausea/vomiting Time Seen by Provider: 09/14/24 15:33 Source: patient Mode of arrival: EMS History of Present Illness HPI narrative: 69-year-old male complains of 2 days duration of generalized abdominal pain, couple episodes of vomiting, still feels nauseated, no black or red stools. Last bowel movement was yesterday. No injury or trauma. He denied use of blood thinners but [place] noted on his medication list. States that he lives alone in the [facility] area. No recent antibiotics. Denies fall, injury, new activities. He has not sure if he has had previous abdominal surgeries, not sure if he has had his appendix removed, does not recall history of bowel obstruction problems. Denies painful urination or frequency of urination. Denies cough fevers chills, denies shortness of breath, denies chest pain. Patient has existing POLST form that is printed for chart, DNAR status noted, he would like selective treatment and comfort focused treatments, signed 03/20/2024, Lisandra Lorenz indicated as legal medical decision maker at phone [phone]. Medical provider in the POLST form listed as Pamela Grissom DO, palliative care physician, phone [phone]. Patient states to me that his PCP is Dr. Vasques, who he last saw in clinic Aug 2024. Related Data Home Medications Medication Instructions Recorded Confirmed tamsulosin 0.4 mg capsule 0.4 mg PO DAILY 09/15/21 09/15/24 atorvastatin 80 mg tablet 80 mg PO BEDTIME 07/30/22 09/15/24 apixaban 2.5 mg tablet (Eliquis) 2.5 mg PO BID 03/29/24 09/15/24 clopidogrel 75 mg tablet 75 mg PO DAILY 03/29/24 09/15/24 nitroglycerin 0.4 mg sublingual 0.4 mg sublingual Q5-15M PRN Chest 03/29/24 09/15/24 tablet Pain ondansetron HCl 4 mg tablet 4 mg PO Q8H PRN Nausea And Vomiting 03/29/24 09/15/24 sennosides 8.6 mg tablet (senna) 8.6 mg PO DAILY constipation 03/29/24 09/15/24 aspirin [Adult Low Dose Aspirin] 81 mg PO QAM 08/03/24 09/15/24 lisinopril 10 mg tablet 10 mg PO DAILY 08/19/24 09/15/24 isosorbide mononitrate 30 mg 30 mg PO DAILY 08/21/24 09/15/24 tablet,extended release 24 hr Previous Rx's Medication Instructions Recorded promethazine 25 mg rectal 25 mg CO Q4-6H PRN nausea and 11/18/20 suppository vomiting #12 ea metformin 500 mg tablet 500 mg PO BID #180 tabs 09/26/23 metoprolol succinate 100 mg 100 mg PO BID #180 tabs 09/27/23 tablet,extended release 24 hr duloxetine 20 mg capsule,delayed 20 mg PO DAILY #90 caps 07/16/24 release (Cymbalta) morphine 10 mg/5 mL oral solution 10 mg (5 mL) PO Q6H PRN pain #100 08/07/24 mL morphine 15 mg immediate release 7.5 - 15 mg (0.5 - 1 x 15 mg) PO 08/13/24 tablet Q4H PRN chest pain/bone pain #120 tabs morphine 30 mg immediate release 15 - 30 mg (0.5 - 1 x 30 mg) PO 08/20/24 tablet Q6H PRN pain #30 tabs Allergies Allergy/AdvReac Type Severity Reaction Status Date / Time No Known Drug Allergies Allergy Verified 09/14/24 15:20 Patient History Medical History Hypertensive urgency Colitis Hematuria Uncomplicated opioid dependence Generalized anxiety disorder Cannabis abuse Prostate cancer (~05/2019) Paroxysmal A-fib Transaminitis Kidney stones Diverticulosis of large intestine (03/31/12) Chronic hepatitis Coronary artery disease involving [place] coronary artery of [place] heart without angina pectoris (~2006) Essential hypertension Mixed hyperlipidemia Surgical History H/O heart artery stent (~2006) Hx of inguinal hernia surgery (~03/07/14) Hx of inguinal hernia surgery (~09/20/08) Status post laminectomy History of angioplasty (~12/2006) Social History marital status: unmarried,single number of children: 3 household members: none lives independently: Yes caregiver/support person: No housing: house pets and animals: No education level: high school occupational status: other 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/jew: None leisure activities: music, fishing and other Smoking Status: Former smoker Tobacco: How many years used: 56 Smokeless tobacco user: other quit status: has quit before second hand exposure: Yes (On farm[place]/Boat.) alcohol intake: former substance use type: does not use and marijuana eating out: rarely or never Type(s) of exercise: normal ROM and activity and additional Smoking Status: Former smoker alcohol intake frequency: 0-2 drinks per day Alcohol type: beer Exam Narrative Exam Narrative: GENERAL: Well-developed patient, in mild distress. HEAD: Atraumatic. Normocephalic. EYES: Pupils equal round and reactive. Extraocular motions intact. No scleral icterus. No injection or drainage. ENT: Nose without bleeding, purulent drainage. Throat without erythema, tonsillar hypertrophy or exudate. Airway patent. NECK: Trachea midline. Non tender CARDIOVASCULAR: Regular rate and rhythm without murmurs, gallops, or rubs. RESPIRATORY: Clear to auscultation. Breath sounds equal bilaterally. No wheezes, rales, or rhonchi. GASTROINTESTINAL: Abdomen soft, non-tender, nondistended. EXTREMITIES: No edema or joint tenderness. BACK: Nontender without deformity or crepitance. No flank tenderness. NEURO: AOx3. Motor functions grossly nonfocal SKIN: No rash or erythema of visible areas Initial Vital Signs Initial Vital Signs: Vital Signs Temperature 97.0 F L 09/14/24 15:10 Pulse Rate 61 09/14/24 15:10 Respiratory Rate 13 09/14/24 15:10 Blood Pressure 200/105 H 09/14/24 15:10 Pulse Oximetry 99 09/14/24 15:10 Oxygen Delivery Method Room Air 09/14/24 15:10 Course Orders Ordered: Acetaminophen (Acetaminophen 325 Mg Tablet) 650 mg PO Q6H PRN PRN Reason: Fever/Mild Pain (1-3) Apixaban (Apixaban 5 Mg Tablet) 2.5 mg PO BID KAITLIN Last Admin: 09/15/24 09:31 Dose: 2.5 mg Documented By: Admin: 09/14/24 22:01 Dose: 2.5 mg Documented By: Aspirin (Aspirin Ec 81 Mg Tablet) 81 mg PO DAILY [facility] Atorvastatin Calcium (Atorvastatin 20 Mg Tablet) 80 mg PO BEDTIME [facility] Last Admin: 09/14/24 23:16 Dose: Not Given Documented By: Clopidogrel Bisulfate (Clopidogrel 75 Mg Tablet) 75 mg PO DAILY [facility] Duloxetine HCl (Duloxetine 20 Mg Capsule) 20 mg PO DAILY [facility] Last Admin: 09/15/24 09:30 Dose: 20 mg Documented By: ZANDER Hydralazine HCl (Hydralazine 20 Mg/Ml Vial) 10 mg IV Q6HR PRN PRN Reason: Hypertension Last Admin: 09/15/24 02:37 Dose: 10 mg Documented By: Isosorbide Mononitrate (Isosorbide Mononitrate Er 30 Mg Tablet) 30 mg PO QACBREAK [facility] Lisinopril (Lisinopril 10 Mg Tablet) 10 mg PO DAILY [facility] Last Admin: 09/15/24 09:30 Dose: 10 mg Documented By: ZANDER Metformin HCl (Metformin Hcl 500 Mg Tablet) 500 mg PO BID [facility] Last Admin: 09/15/24 09:30 Dose: 500 mg Documented By: Admin: 09/14/24 23:16 Dose: Not Given Documented By: Metoprolol Succinate (Metoprolol Er 50 Mg Tablet) 100 mg PO BID [facility] Last Admin: 09/15/24 09:30 Dose: 100 mg Documented By: Admin: 09/14/24 23:17 Dose: Not Given Documented By: Morphine Sulfate (Morphine Ir 15 Mg Tablet) 7.5 mg PO Q6HR PRN PRN Reason: Pain, Severe (7-10) Last Admin: 09/15/24 12:49 Dose: 7.5 mg Documented By: ZANDER Naloxone HCl (Naloxone 0.4 Mg/Ml Vial) 0.2 mg IV Q2MIN PRN PRN Reason: Opiate Reversal Nitroglycerin (Nitroglycerin 0.4 Mg Sl Tab) 0.4 mg SL Q5MIN PRN PRN Reason: CHEST PAIN Ondansetron HCl (Ondansetron 4 Mg/2 Ml Inj) 4 mg IV NOW PRN PRN Reason: Nausea And Vomiting Last Admin: 09/14/24 20:08 Dose: 4 mg Documented By: Admin: 09/14/24 15:18 Dose: 4 mg Documented By: CAMILO Ondansetron HCl (Ondansetron 4 Mg Odt) 4 mg PO NOW PRN PRN Reason: Nausea And Vomiting Last Admin: 09/15/24 12:22 Dose: 4 mg Documented By: ZANDER Promethazine HCl (Promethazine 25 Mg Supp) 25 mg CO Q6HR PRN PRN Reason: Nausea Last Admin: 09/14/24 22:25 Dose: 25 mg Documented By: Sennosides (Sennosides 8.6 Mg Tablet) 8.6 mg PO DAILY [facility] Tamsulosin HCl (Tamsulosin 0.4 Mg Capsule) 0.4 mg PO DAILY [facility] Last Admin: 09/15/24 09:30 Dose: 0.4 mg Documented By: ZANDER Discontinued Medications Hydralazine HCl (Hydralazine 20 Mg/Ml Vial) 10 mg IV NOW ONE Stop: 09/14/24 19:41 Last Admin: 09/14/24 20:02 Dose: 10 mg Documented By: DAVID Hydromorphone HCl (Hydromorphone 0.5 Mg Inj) 0.5 mg IV NOW ONE Stop: 09/14/24 17:31 Last Admin: 09/14/24 17:36 Dose: 0.5 mg Documented By: CAMILO Sodium Chloride (Normal Saline 0.9%) 1,000 mls @ 1,000 mls/hr IV BOLUS ONE Stop: 09/14/24 16:33 Last Infusion: 09/14/24 17:00 Dose: Infused Documented By: Admin: 09/14/24 15:39 Dose: 1,000 mls/hr Documented By: CAMILO Sodium Chloride (Normal Saline 0.9%) 1,000 mls @ 125 mls/hr IV CONT [facility] Last Admin: 09/15/24 05:07 Dose: 125 mls/hr Documented By: Infusion: 09/15/24 05:07 Dose: Infused Documented By: Admin: 09/14/24 21:15 Dose: 125 mls/hr Documented By: DAVID Isosorbide Mononitrate (Isosorbide Mononitrate Er 30 Mg Tablet) 30 mg PO DAILY [facility] Last Admin: 09/15/24 09:30 Dose: 30 mg Documented By: ZANDER Ketorolac Tromethamine (Ketorolac 30 Mg/Ml Vial) 15 mg IV NOW ONE Stop: 09/14/24 15:34 Last Admin: 09/14/24 15:38 Dose: 15 mg Documented By: CAMILO Labetalol HCl (Labetalol 20 Mg/4 Ml Syringe) 5 mg IV NOW ONE Stop: 09/14/24 22:05 Last Admin: 09/14/24 22:26 Dose: 5 mg Documented By: Metoclopramide HCl (Metoclopramide 10 Mg/2 Ml Inj) 5 mg IV NOW ONE Stop: 09/14/24 17:26 Last Admin: 09/14/24 17:34 Dose: 5 mg Documented By: CAMILO Metoprolol Tartrate (Metoprolol Ir 50 Mg Tablet) 100 mg PO NOW ONE Stop: 09/14/24 19:44 Last Admin: 09/14/24 20:01 Dose: 100 mg Documented By: DAVID Morphine Sulfate (Morphine 2 Mg/Ml Inj) 1 mg IV Q2HR PRN PRN Reason: Pain, Moderate (4-6) Last Admin: 09/14/24 20:03 Dose: 1 mg Documented By: DAVID Morphine Sulfate (Morphine 2 Mg/Ml Inj) 3 mg IV Q2HR PRN PRN Reason: Pain, Moderate (4-6) Last Admin: 09/15/24 09:31 Dose: 3 mg Documented By: Admin: 09/15/24 06:38 Dose: 3 mg Documented By: Admin: 09/15/24 04:43 Dose: 3 mg Documented By: Admin: 09/15/24 02:38 Dose: 3 mg Documented By: Admin: 09/15/24 00:34 Dose: 3 mg Documented By: Admin: 09/14/24 22:22 Dose: 3 mg Documented By: Nitroglycerin (Nitroglycerin Oint 1 Inch/Gm Oint...G.) 0.5 inch TOP NOW ONE Stop: 09/14/24 22:05 Last Admin: 09/14/24 22:32 Dose: 0.5 inch Documented By: Ondansetron HCl (Ondansetron 4 Mg/2 Ml Inj) 4 mg IV Q6HR [facility] Vital Signs Vital signs: Vital Signs - 8 hr 09/14/24 15:10 09/14/24 15:20 09/14/24 15:30 Temperature 97.0 F L Pulse Rate 61 63 65 Respiratory Rate 13 Blood Pressure 200/105 H Pulse Oximetry 99 99 99 Oxygen Delivery Method Room Air 09/14/24 15:30 09/14/24 16:00 09/14/24 16:01 Temperature Pulse Rate 88 89 Respiratory Rate 22 Blood Pressure 228/124 H Pulse Oximetry 98 Oxygen Delivery Method 09/14/24 16:01 09/14/24 16:03 09/14/24 16:03 Temperature Pulse Rate 90 Respiratory Rate 23 Blood Pressure 144/97 H 157/95 H Pulse Oximetry 95 Oxygen Delivery Method 09/14/24 16:15 09/14/24 16:15 09/14/24 16:30 Temperature Pulse Rate 101 H 97 H Respiratory Rate 20 17 Blood Pressure 134/80 Pulse Oximetry 98 99 Oxygen Delivery Method 09/14/24 16:30 09/14/24 16:59 09/14/24 16:59 Temperature Pulse Rate 82 Respiratory Rate 13 Blood Pressure 125/75 184/112 H Pulse Oximetry 98 Oxygen Delivery Method 09/14/24 17:00 09/14/24 17:30 09/14/24 17:47 Temperature Pulse Rate 82 83 Respiratory Rate 17 16 Blood Pressure 213/125 H Pulse Oximetry 99 99 Oxygen Delivery Method 09/14/24 17:47 09/14/24 18:00 09/14/24 18:00 Temperature Pulse Rate 79 80 Respiratory Rate 18 16 Blood Pressure 208/121 H Pulse Oximetry 99 98 Oxygen Delivery Method MDM - Abdominal Pain Lab Data Attestation: I reviewed the patient's lab results. Lab results narrative: White blood cell count 4700, hemoglobin 12.9, platelets adequate. Glucose 238. Sodium 137. SerumCO2 18, anion gap 12. BUN 19 with creatinine 0.84 noted. Alkaline phosphatase 127, AST 88, ALT 83, total bilirubin 1.5, lipase normal. 09/15/24 05:10 09/15/24 05:10 Labs: Lab Results 09/14/24 09/14/24 09/14/24 Range/Units 15:55 17:46 18:00 WBC 4.7 (4.5-11.0) X10^3/uL RBC 4.17 L (4.5-5.9) X10^6/uL Hgb 12.9 L (13.5-17.5) g/dL Hct 37.4 L (41-53) % MCV 89.7 (80-100) fL MCH 30.8 (26-34) PG MCHC 34.4 (30-36) % RDW 12.9 (11.6-14.8) % Plt Count 141 L (150-400) X10^3/uL Neut % (Auto) 80.1 H (50-75) % Lymph % (Auto) 14.5 L (25-40) % [place] % (Auto) 4.6 (3-14) % Eos % (Auto) 0.2 L (2-4) % Baso % (Auto) 0.6 (0-2) % Neut # (Auto) 3800 (9950-5069) /uL Lymph # (Auto) 700 L (4847-0587) /uL [place] # (Auto) 200 (0-900) /uL Eos # (Auto) 0 (0-450) /uL Baso # (Auto) 0 (0-100) /uL PT 16.1 H (9.4-12.5) SECONDS INR 1.4 H (0.9-1.3) Sodium 137 (137-145) mmol/L Potassium 4.1 (3.4-5.1) mmol/L Chloride 107 (98-107) mmol/L Carbon Dioxide 18 L (22-32) mmol/L BUN 19 (9-20) mg/dL Creatinine 0.84 (0.66-1.25) mg/dL Estimated GFR > 60 (>60) mL/min BUN/Creatinine Ratio 22.6 H (6-22) Glucose 238 H (80-110) mg/dL Calcium 10.0 (8.4-10.2) mg/dL Total Bilirubin 1.5 H (0.2-1.3) mg/dL AST 88 H (17-59) IU/L ALT 83 H (<50) IU/L Alkaline Phosphatase 127 H (38-126) U/L Ammonia < 9 L (9-30) umol/L Total Protein 8.6 H (6.3-8.2) g/dL Albumin 4.6 (3.5-5.0) g/dL Globulin 4.0 (1.7-4.1) g/dL Albumin/Globulin Ratio 1.2 (1.0-2.8) Lipase 43 (23-300) U/L Urine RBC 0-1/hpf (0-5/HPF) Urine WBC 0-1/hpf (0-5/HPF) Ur Squamous Epith Cells 0-1 /hpf (0-5/HPF) Urine Bacteria Occasional (0-1) (None) Vol Urine Centrifuged 10ml (spun) Point of care testing: Point of Care Testing Glucose POC 238 Urine Dip Bedside Urine Glucose Negative Bedside Urine Bilirubin - Negative Bedside Urine Ketone + 15 Urine Specific [place] 1.010 Bedside Urine Occult Blood + Bedside Urine pH 6.5 Bedside Urine Protein + 30 Bedside Urine Urobilinogen - Negative Bedside Urine Nitrite - Negative Bedside Urine Leukocytes - Negative Esterase Imaging Data CT scan - head: Radiologist's Impression: [address] [address] [address] Scan Report Signed Patient: Brennan Marmolejo Jr MR#: [id number] : 1955 Acct:[id number] Age/Sex: 69 / M Date of Service: 09/14/24 Loc: ED Accession Number: [id number] Procedure: CT head/brain wo con Ordering Provider: Gabriel Brown D.O. PROCEDURE: CT HEAD/BRAIN WO CON INDICATIONS: altered mental status TECHNIQUE: Noncontrast 4.5 mm thick angled axial sections acquired from the foramen magnum to the vertex, with coronal and sagittal reformats. For radiation dose reduction, the following was used: automated exposure control, adjustment of mA and/or kV according to patient size. COMPARISON: [facility], CT, CT HEAD/BRAIN WO CON, 09/21/2021, 12:43. FINDINGS: Image quality: Diagnostic. CSF spaces: Basal cisterns are patent. No extra-axial fluid collections. The ventricles are symmetric in size and shape. Brain: No intracranial bleeds or masses. There is cerebral volume loss for age, with resultant ventricular and sulcal prominence. There are periventricular and deep white matter chronic small vessel ischemic changes. There is intracranial internal carotid artery atherosclerosis. Skull and face: Calvarium and visualized facial bones appear intact, without suspicious lesions. Sinuses: Visualized sinuses and mastoids are clear. IMPRESSION: No acute intracranial pathology. Dictated by: Ethan Peñaloza M.D. on 09/14/2024 at 17:03 Approved by: Ethan Peñaloza M.D. on 09/14/2024 at 17:04 CT scan - abdomen/pelvis: Radiologist's Impression: [address] [address] [address] Scan Report Signed Patient: Brennan Marmolejo Jr MR#: [id number] : 1955 Acct:[id number] Age/Sex: 69 / M Date of Service: 09/14/24 Loc: ED Accession Number: [id number] Procedure: CT abdomen pelvis w con Ordering Provider: Gabriel Brown D.O. PROCEDURE: CT ABDOMEN PELVIS W CON INDICATIONS: abd pain and vomiting TECHNIQUE: After the administration of intravenous contrast, axial sections acquired from the lung bases to the pubic symphysis. Coronal and sagittal reformats were performed. For radiation dose reduction, the following was used: automated exposure control, adjustment of mA and/or kV according to patient size. COMPARISON: [facility], CT, CT ABDOMEN PELVIS W CON, 08/17/2024, 17:24. FINDINGS: Image quality: Diagnostic. Lower Chest: No significant findings. ABDOMEN: Liver: Cirrhosis. Single phase contrast evaluation is suboptimal for detection of hepatocellular carcinoma. No large mass identified. Patent portal vein. Gallbladder: No radiopaque gallstones or wall thickening. Biliary ducts: No biliary dilation. Pancreas: No ductal dilation. Calcified parenchyma, consistent with chronic pancreatitis. Spleen: Size is within normal limits. Adrenal Glands: No adrenal nodules. Kidneys and Ureters: No hydronephrosis. No solid mass. No complex renal cystic lesion which requires follow up. Stomach and Bowel: Abdominal not rotation, with the large bowel in the left hemiabdomen and the small bowel in the right hemiabdomen. Colonic diverticulosis without evidence of diverticulitis. Normal appendix. No dilation of the small bowel to suggest volvulus. Peritoneum: No abnormal intraperitoneal fluid. No free air. Ventral Wall: No significant ventral hernia. Abdominal Nodes: No retroperitoneal or mesenteric adenopathy by size criteria. Vessels: Aorta and inferior vena cava are normal in size. Recannulized umbilical vein. PELVIS: Pelvic Organs: Fiducial markers within the prostate. Bladder: No bladder wall thickening, accounting for underdistention. Pelvic Nodes: No enlarged lymph nodes. Miscellaneous: No inguinal hernias are seen. Bones: No aggressive osseous abnormality. Dense bony lesion in the L2 body and right sacrum, presumably a sequela prosthetic metastatic disease. IMPRESSION: No acute abnormality. Cirrhosis with secondary evidence of portal hypertension. Consider hepatic encephalopathy given symptoms. 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 Colonic diverticulosis without evidence of diverticulitis. Other chronic findings as above. Dictated by: Ethan Peñaloza M.D. on 09/14/2024 at 17:04 Approved by: Ethan Peñaloza M.D. on 09/14/2024 at 17:09 ECG Data Attestation: I personally reviewed and interpreted this ECG as follows: Interpretation: Normal sinus rhythm with rate of 60, no obvious ST segment elevation or depression changes. CO 164, QRS 74, QTC 520. MDM Narrative Medical decision making narrative: 69-year-old male with history of existing POLST, DNAR but would like symptomatic treatment measures, with abdominal pain and nausea vomiting. Agrreable to labs and symptomaic treatment and advanced brain/abdominal imaging when offered. CT head and CT abdomen and pelvis ordered from triage. CT head no acute changes, see radiology report. CT abdomen and pelvis shows cirrhosis changes, no acute changes, diverticulosis without diverticulitis changes, malrotation without volvulus, see radiology report. Patient still symptomatic after Toradol and antiemetic, QTC prolonged on EKG, will avoid Zofran, given IV Reglan. Still feels nauseated, retching, does not feel that he can go home. Consider admission for symptomatic treatment. We will contact PCP Caprice/group regarding admission. 1800, case discussed with cross cover physician Dr. Escobedo, covering for PCP Caprice, accepts patient for admission Critical Care Time Critical Care Time Critical Care Time: Yes Total Critical Care Time: 35 Attestation: The high probability of a clinically significant, sudden or life threatening deterioration of the [gastrointestinal, abdominopelvic] system(s) required my full and direct attention, intervention and personal management. The aggregate critical care time was [35] minutes. This time is in addition to time spent performing reported procedures but includes the following: [x] Data Review and interpretation [x] Patient assessment and monitoring of vital signs [x] Documentation [x] Medication orders and management Discharge Plan Departure Patient Disposition: Admitted as Observation Clinical Impression: Abdominal pain, Nausea and vomiting, History of cirrhosis, Prolonged QT interval, History of atrial fibrillation Admit Date/Time: 09/14/24 18:08 Admit Provider: Brennan Escobedo
[2024-09-14] MEDS: METOCLOPRAMIDE 10 MG/2 ML INJ 5 MG IV (17:34)
[2024-09-14] MEDS: HYDROMORPHONE 0.5 MG INJ IV (17:36)
[2024-09-14 18:20] LABS: Ammonia (NH3) < 9 umol/L (9-30)
[2024-09-14 18:23] LABS: Bacteria Urine Occasional (0-1); RBC Urine 0-1/HPF (0-5/HPF); Squamous Epithelial Cell Urine 0-1 /HPF (0-5/HPF); Urine Volume 10mL (spun); WBC Urine 0-1/HPF (0-5/HPF)
[2024-09-14] MEDS: METOPROLOL IR 50 MG TABLET 100 MG PO (20:01)
[2024-09-14] MEDS: HYDRALAZINE 20 MG/ML VIAL 10 MG IV (20:02)
[2024-09-14] MEDS: MORPHINE 2 MG/ML INJ 1 MG IV (20:03)
--- NOTE | 2024-09-14 20:33 | PC.NURSE ---
pt admitted from ED at change of shift. Pt moved to bed on slider board, RN started admition questions, MANAGER FLOOR charting vitals, BP was 220/137. RN notified Dr Gaines, new orders given for metoprolol, hydralazine, and morphine, RN called [facility] to acknowledge orders and meds were given to pt as ordered, provider is updating admition orders now.
[2024-09-14] MEDS: SODIUM CHLORIDE 0.9% 1,000 ML 125 ML IV (21:15)
[2024-09-14] MEDS: APIXABAN 5 MG TABLET 2.5 MG PO (22:01)
[2024-09-14] MEDS: MORPHINE 2 MG/ML INJ 3 MG IV (22:22)
[2024-09-14] MEDS: PROMETHAZINE 25 MG SUPP PR (22:25)
[2024-09-14] MEDS: LABETALOL 20 MG/4 ML SYRINGE 5 MG IV (22:26)
[2024-09-14] MEDS: NITROGLYCERIN OINT 1 INCH/GM OINT...G. 0.5 INCH TOP (22:32)
[2024-09-15] VITALS (20 sets, daily range): BP systolic 112–183; BP diastolic 67–109; PULSE 67–82; RESP 16–20; TEMP 36.4–37.3; O2SAT 97–99
[2024-09-15] MEDS: MORPHINE 2 MG/ML INJ 3 MG IV ×5 (00:34→09:31)
[2024-09-15] MEDS: HYDRALAZINE 20 MG/ML VIAL 10 MG IV (02:37)
[2024-09-15] MEDS: SODIUM CHLORIDE 0.9% 1,000 ML 125 ML IV (05:07)
[2024-09-15 06:16] LABS: Add Manual Diff / Slide Review NO; Basophils Absolute Auto 0 /uL (0-100); Basophils Percent Auto 0.2 % (0-2); Eosinophils Absolute Auto 0 /uL (0-450); Hematocrit 32.9 % (41-53); Hemoglobin 11.8 g/dL (13.5-17.5); Lymphocytes Absolute Auto 1000 /uL (1100-4500); Lymphocytes Percent Auto 8.8 % (25-40); Mean Corpuscular HGB Conc 35.8 % (30-36); Mean Corpuscular Hemoglobin 31.5 PG (26-34); Mean Corpuscular Volume 88.1 fL (80-100); Monocytes Absolute Auto 1500 /uL (0-900); Monocytes Percent Auto 14.1 % (3-14); Neutrophils Absolute Auto 8300 /uL (1500-7000); Neutrophils Percent Auto 76.9 % (50-75); Platelet Count 149 X10^3/uL (150-400); Red Blood Cell Count 3.74 X10^6/uL (4.5-5.9); Red Cell Distribution Width 13.1 % (11.6-14.8); White Blood Cell Count 10.8 X10^3/uL (4.5-11.0)
[2024-09-15 06:27] LABS: Alanine Aminotransferase 61 IU/L (<50); Albumin 4.1 g/dL (3.5-5.0); Albumin Globulin Ratio 1.3 (1.0-2.8); Alkaline Phosphatase 96 U/L (38-126); Aspartate Aminotransferase 61 IU/L (17-59); BUN Creatinine Ratio 22.7 (6-22); Bilirubin Total 0.9 mg/dL (0.2-1.3); Blood Urea Nitrogen 20 mg/dL (9-20); Calcium 8.9 mg/dL (8.4-10.2); Carbon Dioxide 20 mmol/L (22-32); Chloride 108 mmol/L (98-107); Estimated Glomerular Filt Rate > 60 mL/min (>60); Globulin 3.1 g/dL (1.7-4.1); Glucose 162 mg/dL (80-110); HEMOLYSIS < 15 (0-50); Potassium 3.5 mmol/L (3.4-5.1); Sodium 137 mmol/L (137-145); Total Protein 7.2 g/dL (6.3-8.2)
[2024-09-15 07:11] LABS: Erythrocyte Sedimentation Rate 8 MM/HR (0-15)
[2024-09-15] MEDS: ISOSORBIDE MONONITRATE ER 30 MG TABLET PO (09:30)
[2024-09-15] MEDS: METOPROLOL ER 50 MG TABLET 100 MG PO ×2 (09:30→21:22)
[2024-09-15] MEDS: lisinopriL 10 MG TABLET PO (09:30)
[2024-09-15] MEDS: DULOXETINE 20 MG CAPSULE PO (09:30)
[2024-09-15] MEDS: TAMSULOSIN 0.4 MG CAPSULE PO (09:30)
[2024-09-15] MEDS: METFORMIN HCL 500 MG TABLET PO ×2 (09:30→21:22)
[2024-09-15] MEDS: APIXABAN 5 MG TABLET 2.5 MG PO ×2 (09:31→21:21)
--- NOTE | 2024-09-15 09:55 | PM.HP.1 ---
History of Present Illness History of Present Illness Date Patient Seen: 09/15/24 Time Patient Seen: 09:55 Date of Onset of Symptoms: 09/13/24 Chief complaint: Abd pain 2 days,nausea/vomiting Narrative: Patient is a 69-year-old male patient of Dr. Vaqsues who I am cross covering for. Patient with metastatic prostate cancer not treating and hepatitis C which has been untreated since diagnosed. His choice. Patient was in his usual health until night when he began having increased abdominal pain. Pain was diffuse. Nothing seemed to make it better or worse. Severe in nature. He had no diarrhea. Blood in his stool. But was nauseated. Was unable to keep any of his medication down. On Tuesday morning. Noticed his blood pressure was significantly elevated because of the and there his pain. Usually takes morphine but was unable to take that for his pain and this was not his usual pains. He had not been constipated. Has no other significant changes. He had no fevers or chills. Had no hematemesis. Was otherwise in stable condition. He has had a pretty severe headache at the time. Was feeling confused and was brought to the emergency room. Patient has a history of recurrent abdominal pain occurring intermittently. With no real definite cause. Very similar to this condition. In the past it has been thought to be secondary to marijuana induced nausea. Patient has since last fall when he was placed on morphine by the palliative care group has reduced his marijuana significantly although still using. He has otherwise had no significant change. In the past he has been able to give him fluids and pain control and resolves relatively quickly. Patient feeling significantly better today. Blood pressure is better today. He was given IV labetalol last night hydralazine IV and nitro paste. Was unable to keep his metoprolol down last night. Was able to take some fluids this morning. Past medical history. Metastatic prostate cancer Type 2 diabetes non-insulin dependent Hypertension Paroxysmal atrial fibrillation Chronic systolic heart failure Generalized anxiety disorder Uncomplicated opioid dependence Mixed hyperlipidemia Past surgical history History of coronary artery disease with stent placement History Of angioplasty coronary arteries Inguinal hernia repair x2 Laminectomy Social history lives in and a [place] in his own house. Has caregivers. Single with 3 children. Retired [employer] Medical History Hypertensive urgency Colitis Hematuria Uncomplicated opioid dependence Generalized anxiety disorder Cannabis abuse Prostate cancer (~05/2019) Paroxysmal A-fib Transaminitis Kidney stones Diverticulosis of large intestine (03/31/12) Chronic hepatitis Coronary artery disease involving [place] coronary artery of [place] heart without angina pectoris (~2006) Essential hypertension Mixed hyperlipidemia Surgical History H/O heart artery stent (~2006) Hx of inguinal hernia surgery (~03/07/14) Hx of inguinal hernia surgery (~09/20/08) Status post laminectomy History of angioplasty (~12/2006) Social History marital status: unmarried,single number of children: 3 household members: significant other and other lives independently: Yes caregiver/support person: No housing: house pets and animals: No education level: high school occupational status: other 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/zoroastrianism: None leisure activities: music, fishing and other Smoking Status: Former smoker Tobacco: How many years used: 56 Smokeless tobacco user: other quit status: has quit before second hand exposure: Yes (On farmland/Boat.) alcohol intake: former substance use type: does not use and marijuana eating out: rarely or never Type(s) of exercise: normal ROM and activity and additional Meds Home Medications and Allergies Home Medications Medication Instructions Recorded Confirmed Type promethazine 25 mg rectal 25 mg OH Q4-6H PRN nausea and 11/18/20 09/15/24 Rx suppository vomiting #12 ea tamsulosin 0.4 mg capsule 0.4 mg PO DAILY 09/15/21 09/15/24 History atorvastatin 80 mg tablet 80 mg PO BEDTIME 07/30/22 09/15/24 History metformin 500 mg tablet 500 mg PO BID #180 tabs 09/26/23 09/15/24 Rx metoprolol succinate 100 mg 100 mg PO BID #180 tabs 09/27/23 09/15/24 Rx tablet,extended release 24 hr apixaban 2.5 mg tablet (Eliquis) 2.5 mg PO BID 03/29/24 09/15/24 History clopidogrel 75 mg tablet 75 mg PO DAILY 03/29/24 09/15/24 History nitroglycerin 0.4 mg sublingual 0.4 mg sublingual Q5-15M PRN Chest 03/29/24 09/15/24 History tablet Pain ondansetron HCl 4 mg tablet 4 mg PO Q8H PRN Nausea And Vomiting 03/29/24 09/15/24 History sennosides 8.6 mg tablet (senna) 8.6 mg PO DAILY constipation 03/29/24 09/15/24 History duloxetine 20 mg capsule,delayed 20 mg PO DAILY #90 caps 07/16/24 09/15/24 Rx release (Cymbalta) aspirin [Adult Low Dose Aspirin] 81 mg PO QAM 08/03/24 09/15/24 History morphine 10 mg/5 mL oral solution 10 mg (5 mL) PO Q6H PRN pain #100 08/07/24 09/15/24 Rx mL morphine 15 mg immediate release 7.5 - 15 mg (0.5 - 1 x 15 mg) PO 08/13/24 09/15/24 Rx tablet Q4H PRN chest pain/bone pain #120 tabs lisinopril 10 mg tablet 10 mg PO DAILY 08/19/24 09/15/24 History morphine 30 mg immediate release 15 - 30 mg (0.5 - 1 x 30 mg) PO 08/20/24 09/15/24 Rx tablet Q6H PRN pain #30 tabs isosorbide mononitrate 30 mg 30 mg PO DAILY 08/21/24 09/15/24 History tablet,extended release 24 hr Allergies Allergy/AdvReac Type Severity Reaction Status Date / Time No Known Drug Allergies Allergy Verified 09/14/24 15:20 Review of Systems Review of Systems Narrative: Review of systems negative except above Exam Vital Signs (past 8 hours): - 09/15/24 02:30 09/15/24 02:37 09/15/24 03:00 Temperature 98.1 F 99.1 F Pulse Rate 77 77 75 Respiratory Rate 20 18 Blood Pressure 183/109 H 183/109 H 130/77 Pulse Oximetry 98 98 Oxygen Flow Rate 0 0 09/15/24 03:15 09/15/24 04:15 09/15/24 05:00 Temperature 98.8 F Pulse Rate 75 79 79 Respiratory Rate 18 18 Blood Pressure 130/77 158/96 H 143/86 H Pulse Oximetry 98 99 Oxygen Flow Rate 0 0 09/15/24 06:35 09/15/24 07:00 09/15/24 08:00 Temperature 98.1 F 97.6 F Pulse Rate 77 75 72 Respiratory Rate 18 17 Blood Pressure 146/80 H 153/83 H 153/87 H Pulse Oximetry 98 98 98 Oxygen Flow Rate 0 0 0 09/15/24 09:00 Temperature Pulse Rate 73 Respiratory Rate 17 Blood Pressure 114/67 Pulse Oximetry 97 Oxygen Flow Rate 0 Oxygen Delivery Method Room Air Oxygen Flow Rate 0 Narrative Exam Narrative: Alert fatigued appearing male appropriate interactive in no acute distress HEENT exam pupils are equal and responsive to light mucous membranes moist. Neck supple without adenopathy. Lungs are clear. Heart is regular rate and rhythm. Abdomen is soft positive bowel sounds very minimally diffuse tenderness. No rebound guarding no masses no hepatosplenomegaly. Extremities without cyanosis clubbing edema. Neurologic exam nonfocal Objective Labs 09/15/24 05:10 09/15/24 05:10 Labs: Laboratory Results - last 24 hr 09/14/24 09/14/24 09/14/24 15:55 17:46 18:00 WBC 4.7 RBC 4.17 L Hgb 12.9 L Hct 37.4 L MCV 89.7 MCH 30.8 MCHC 34.4 RDW 12.9 Plt Count 141 L Neut % (Auto) 80.1 H Lymph % (Auto) 14.5 L Bradley % (Auto) 4.6 Eos % (Auto) 0.2 L Baso % (Auto) 0.6 Neut # (Auto) 3800 Lymph # (Auto) 700 L Bradley # (Auto) 200 Eos # (Auto) 0 Baso # (Auto) 0 ESR PT 16.1 H INR 1.4 H Sodium 137 Potassium 4.1 Chloride 107 Carbon Dioxide 18 L BUN 19 Creatinine 0.84 Estimated GFR > 60 BUN/Creatinine Ratio 22.6 H Glucose 238 H Calcium 10.0 Total Bilirubin 1.5 H AST 88 H ALT 83 H Alkaline Phosphatase 127 H Ammonia < 9 L Total Protein 8.6 H Albumin 4.6 Globulin 4.0 Albumin/Globulin Ratio 1.2 Lipase 43 Urine RBC 0-1/hpf Urine WBC 0-1/hpf Ur Squamous Epith Cells 0-1 /hpf Urine Bacteria Occasional (0-1) Vol Urine Centrifuged 10ml (spun) 09/15/24 05:10 WBC 10.8 D RBC 3.74 L Hgb 11.8 L Hct 32.9 L MCV 88.1 MCH 31.5 MCHC 35.8 RDW 13.1 Plt Count 149 L Neut % (Auto) 76.9 H Lymph % (Auto) 8.8 L Bradley % (Auto) 14.1 H Eos % (Auto) 0.0 L Baso % (Auto) 0.2 Neut # (Auto) 8300 H Lymph # (Auto) 1000 L Bradley # (Auto) 1500 H Eos # (Auto) 0 Baso # (Auto) 0 ESR 8 PT INR Sodium 137 Potassium 3.5 Chloride 108 H Carbon Dioxide 20 L BUN 20 Creatinine 0.88 Estimated GFR > 60 BUN/Creatinine Ratio 22.7 H Glucose 162 H Calcium 8.9 Total Bilirubin 0.9 AST 61 H ALT 61 H Alkaline Phosphatase 96 Ammonia Total Protein 7.2 Albumin 4.1 Globulin 3.1 Albumin/Globulin Ratio 1.3 Lipase Urine RBC Urine WBC Ur Squamous Epith Cells Urine Bacteria Vol Urine Centrifuged Assessment & Plan Assessment & Plan narrative: Abdominal pain. Negative workup. Normal white count. CMP normal. CT scan unremarkable. Except for cirrhosis. Otherwise no change. White count this morning was stable and at this point etiology is unclear but much improved today. Will continue to follow recheck white count tomorrow. Discontinue fluids and follow. Advance diet to see how he does. Metabolic encephalopathy. Normal today. CT scan unremarkable. Probably secondary to elevated blood pressure. We will continue to follow but no further evaluation. Hypertensive crisis. Blood pressure is normal this morning. Will switch back to usual medication and see if he tolerates. Biggest issue will be whether his abdominal pain continues to resolve and his nausea and vomiting are stable. Hopefully he will be able to do that and will follow. Nausea and vomiting. Severe. Not allow him to take his oral meds which got is here. Secondary to abdominal pain which is etiology is unclear but appears to be resolving. We will discontinue IV fluids and continue promethazine rectal if needed. Dehydration. Mild. Seems to be resolved. Will discontinue IV fluids and watch as far as able to tolerate diet Metastatic prostate cancer with bone metastasis. Will restart oral morphine usual dose. And follow. Seems to be comfortable at this time. Discontinue IV morphine. Hepatitis C with cirrhosis. Patient has requested no treatment. At this point will continue to follow. Recheck in a.m. but appears to be stable with some mild increase in his transaminases Coronary artery disease. Appears stable. No evidence of chest pain or other issue. Will follow. Paroxysmal atrial fibrillation. Currently not in atrial fibrillation. Will discontinue monitor. Code status DNR DNI GI prophylaxis not needed DVT prophylaxis on Eliquis Disposition. Patient much improved today. Will just have to see if he holds. Etiology is were as abdominal pain is unclear but has been for several years now with episodes. Will proceed with physical therapy and make sure strength is okay. Will see if he tolerates all his oral meds and diet and if stable with no pain and tolerating meds blood pressure stable will discharge tomorrow. 80 minutes spent on orders chart review discussion with the emergency room doctor dictation orders Time-Based Coding :: [TOTAL MINUTES] spent with patient and on the chart (including review of chart, obtaining history, exam, reviewing outside data, placing orders, documenting exam and treatment plan, and counseling patient) on [DATE].
--- NOTE | 2024-09-15 10:34 | CM.DANOTE ---
Patient is a 69 yo male who was admitted OBS Status on 09/14/24 for Abd Pain. Pt has MCR for insurance and his PCP is Dr. Khang Vasques at [facility]. EMR was reviewed. Per MD, pt with a hx of metastatic prostate cancer, hypertension, diabetes, Afib, and chronic pain. He presented yesterday afternoon via EMS with c/o chest pain and abdominal pain that has been persistent for several days. He was found to be hypertensive and remains on clears and IV fluids and not yet stable for discharge today. POLST is limited interventions and DNR. Pt?s POA is CG/friend Lisandra Lorenz. Met with pt at bedside to introduce self and role, pt was found to be resting quietly, in no apparent distress, and pain well managed at the time of this visit. Pt resides modified independently in his own home in [place] [employer] [place]. Pt has a sales associate cashier that lives in a trailer on his property, and is available to assist pt at any time. Additionally, pt has a cg, Lisandra, that comes to assist him 4 hrs a day 4xs per week as needed. His cg will also plan to drive him home at time of d/c. Pt does not feel HH needed at d/c and confirms that he has stopped any tx for his prostate CA or cirrhosis and therefore had a Hospice Consult recently and determined he is not yet ready for Hospice but they will keep his information on file for likely need in the future. Pt confirms his preference is to d/c home when stable and does not anticipate any further needs at this time. Plan: SW to follow for likely ambulation later today or tomorrow to confirm his bp is stable towards plan of home with assist and outpt f/u. JAYME Haynes Discharge Planning/Care Management CM Discharge Assessment Start: 09/15/24 10:31 Freq: Status: Active Protocol: Document 09/15/24 10:31 BF (Rec: 09/15/24 10:33 BF [id number]) Discharge Planning Assessment Assigned Organ Grinder JAYME Mays DPOA/Assigned Designee Name Friend Lisandra Contact Information [phone] Advance Directives? Yes: POLST Advance Directives on File No History Provided By Patient,Medical Record Has Patient been admitted in last 30 Yes days? Comment Recently admitted 08/19- and discharged home with assist Prior Living Arrangements House Household Members none Type of transporation used prior to Relies on Others admit Independent with ADL's Yes: Does have CG 4 days a week for 4 hrs Is patient alert and oriented? Yes Needs Assistance With Meal Prep,Home Chores / Shopping Caregiver for Another No DME Already Rented / Owned FWW / Walker Barriers to Discharge No Comment Patient's friends Peg and Lisandra assist him throughout the week with meds, ADLs, transportation Discharge Plan Home Transportation Arrangement Patient reports that Lisandra can pick him up at time of d/c . Referrals Initiated None needed Additional Comment Patient does not think he will need HH upon discharge Whiteboard Updated in Patient Room with Yes name and ext. # of Organ Grinder Review Status In Process Please Provide Date Initial DC 09/15/24 Assessment Was Performed Next Review Type Continued Stay Review
[2024-09-15] MEDS: ONDANSETRON 4 MG ODT PO (12:22)
[2024-09-15] MEDS: MORPHINE IR 15 MG TABLET 7.5 MG PO ×3 (12:49→23:11)
--- NOTE | 2024-09-15 13:53 | PT.IIE ---
Surgical History (Last Reviewed 09/15/24 @ 10:01 by Brennan Escobedo MD) H/O heart artery stent (~2006) History of angioplasty (~12/2006) Hx of inguinal hernia surgery (~09/20/08) Hx of inguinal hernia surgery (~03/07/14) Status post laminectomy Medical History (Last Reviewed 09/15/24 @ 10:01 by Brennan Escobedo MD) Cannabis abuse Chronic hepatitis Colitis Coronary artery disease involving [place] coronary artery of [place] heart without angina pectoris (~2006) Diverticulosis of large intestine (03/31/12) Essential hypertension Generalized anxiety disorder Hematuria Hypertensive urgency Kidney stones Mixed hyperlipidemia Paroxysmal A-fib Prostate cancer (~05/2019) Transaminitis Uncomplicated opioid dependence Physical Therapy Inpatient Evaluation/Re-Eval M1 PT/OT-IP Prior Functional Status Start: 09/15/24 13:34 Freq: NEEDED Status: Active Protocol: Document 09/15/24 13:34 AMB (Rec: 09/15/24 13:52 AMB [id number]) Medical Review Prior Functional Status Medical History Reviewed Yes Communication WFL Mobility and Gait Ambulates with a FWW/ has a w/ c/ reports he will at times walk with a walking stick around his property Activities of Daily Living and IADL's Reports he still cooks and cleans his home, but has a caregiver who makes doctors appointments, helps him with medication and drives. Social History Household Members none Living Arrangements House Number of Floors (Floors) 3 or More Floors Number of Stairs To Enter/Railing? 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 mechanic farm equipment who lives in a trailer on the property who is available in case of emergency M2 PT-IP Current Condition Start: 09/15/24 13:34 Freq: NEEDED Status: Active Protocol: Document 09/15/24 13:34 AMB (Rec: 09/15/24 13:52 AMB [id number]) Physical Therapy Current Condition Current Condition Evaluation Date 09/15/24 Treatment Diagnosis weakness/nausea with CA Onset Date 09/14/24 M3 PT-IP Subjective Start: 09/15/24 13:34 Freq: NEEDED Status: Active Protocol: Document 09/15/24 13:34 AMB (Rec: 09/15/24 13:52 AMB [id number]) Subjective Physical Therapy Visit Type Type Initial Evaluation Visit Start Time 13:00 Visit Stop Time 13:30 Physical Therapy Visit Comments Patient Comments Pt happy to get up Therapy Pain Assessment Pain When Pain Assessed At Rest Location Abdomen Pain Behaviors Guarding M4 PT-IP Mobility and Gait Start: 09/15/24 13:34 Freq: NEEDED Status: Active Protocol: Document 09/15/24 13:34 AMB (Rec: 09/15/24 13:52 AMB [id number]) PT-Bed Mobility Assessment Rolling Type of Rolling Roll to Left Level of Assist Independent Supine to Sit Supine to Sit Independent Sit to Supine Sit to Supine Independent PT-Transfer Assessment Sit to and From Stand Sit to and from Stand Standby Assistance Equipment Transfer Assistive Device Gait Belt,Front Wheeled Walker Transfers Transfer Destination Bed Transfer Technique Stand Step Pivot Transfer Ability Level of Assist Standby Assistance Comments Mobility Comments Oj was able to perform all bed mobility with good safety and independence. Took BP with activity since his BP was so high yesterday. In supine : 126/80, sitting 138/85, standing 115/85, after walking 137/83. Gait Assessment Gait Gait Assistance Required: Standby Assistance Distance (Feet) 200 Assistive Devices Assistive Device Gait Belt,Front Wheeled Walker Gait Deviations General Gait Pattern Decreased Stride Length Comments Gait Comments Oj was able to ambulate well through the hallway with a FWW over smooth surfaces. He states that he does sometimes walk on his property, and was encouraged to go with a friend for the time being considering his recent hospitalization. M5 PT-IP Objective Assessments Start: 09/15/24 13:34 Freq: NEEDED Status: Active Protocol: Document 09/15/24 13:34 AMB (Rec: 09/15/24 13:52 AMB [id number]) Orientation Orientation/Cognition Level of Alertness Alert Strength Upper Extremity Strength Assessment Within Functional Limits Lower Extremity Strength Assessment Within Functional Limits M7 PT-IP Assessment and Plan Start: 09/15/24 13:34 Freq: NEEDED Status: Active Protocol: Document 09/15/24 13:34 AMB (Rec: 09/15/24 13:52 AMB [id number]) PT Summary Assessment and Plan Potential Rehabilitation Potential Good Status of Condition at Evaluation Stable Summary Impairments Pain,Balance,Gait,Activity Tolerance Assessment Summary Oj had significant abdominal pain and high blood pressure yesterday but is feeling better today. He has prostate cancer with mets to the left hip. He lives in a 3 story house, but his bedroom bathroom and kitchen are all on the main level with wheelchair ramps to enter. He has a caregiver for part of the day. During evaluation he was indepedent with all bed mobility and SBA with FWW with ambulation 200 feet+ which sounds like his baseline mobility. Since he is at his baseline we will d/c his PT. When he is medically stable would recommend d/c to home with the supports he already has in place. Goals Bed Mobility Goal Independent Transfer Goal Independent Gait Goal Standby Assistance Gait Distance 250 Frequency of Treatment Frequency Of Treatment Discharge Treatment Plan Physical Therapy Treatment Plan Bed Mobility Training,Gait Training,Balance Retraining Recommendations To Nursing Amount of Assist Needed 1 Person Assist Discharge Recommendations PT Discharge Recommendations Home with Assistance Transportation Needs at Discharge Private Vehicle
[2024-09-15] MEDS: ATORVASTATIN 20 MG TABLET 80 MG PO (21:21)
[2024-09-16 04:50] VITALS: BP 164/91; PULSE 64
[2024-09-16] MEDS: MORPHINE IR 15 MG TABLET 7.5 MG PO ×2 (04:57→09:06)
[2024-09-16 05:40] LABS: Add Manual Diff / Slide Review NO; Basophils Absolute Auto 0 /uL (0-100); Basophils Percent Auto 0.6 % (0-2); Eosinophils Absolute Auto 100 /uL (0-450); Eosinophils Percent Auto 1.9 % (2-4); Lymphocytes Absolute Auto 1400 /uL (1100-4500); Lymphocytes Percent Auto 24.4 % (25-40); Mean Corpuscular HGB Conc 34.2 % (30-36); Mean Corpuscular Hemoglobin 30.7 PG (26-34); Mean Corpuscular Volume 89.7 fL (80-100); Monocytes Absolute Auto 700 /uL (0-900); Monocytes Percent Auto 12.2 % (3-14); Neutrophils Absolute Auto 3500 /uL (1500-7000); Neutrophils Percent Auto 60.9 % (50-75); Platelet Count 118 X10^3/uL (150-400); Red Blood Cell Count 3.57 X10^6/uL (4.5-5.9); Red Cell Distribution Width 12.6 % (11.6-14.8); White Blood Cell Count 5.8 X10^3/uL (4.5-11.0)
[2024-09-16 05:52] LABS: Alanine Aminotransferase 55 IU/L (<50); Albumin 3.4 g/dL (3.5-5.0); Alkaline Phosphatase 89 U/L (38-126); Aspartate Aminotransferase 59 IU/L (17-59); BUN Creatinine Ratio 29.6 (6-22); Bilirubin Total 0.8 mg/dL (0.2-1.3); Blood Urea Nitrogen 29 mg/dL (9-20); Calcium 8.8 mg/dL (8.4-10.2); Carbon Dioxide 21 mmol/L (22-32); Chloride 109 mmol/L (98-107); Estimated Glomerular Filt Rate > 60 mL/min (>60); Globulin 3.3 g/dL (1.7-4.1); Glucose 158 mg/dL (80-110); HEMOLYSIS < 15 (0-50); Potassium 3.4 mmol/L (3.4-5.1); Sodium 134 mmol/L (137-145); Total Protein 6.7 g/dL (6.3-8.2)
[2024-09-16] MEDS: ISOSORBIDE MONONITRATE ER 30 MG TABLET PO (07:40)
[2024-09-16 08:51] VITALS: BP 137/77; PULSE 67; RESP 18; TEMP 36; O2SAT 98
[2024-09-16] MEDS: CLOPIDOGREL 75 MG TABLET PO (08:57)
[2024-09-16] MEDS: TAMSULOSIN 0.4 MG CAPSULE PO (08:57)
[2024-09-16] MEDS: DULOXETINE 20 MG CAPSULE PO (08:57)
[2024-09-16] MEDS: METFORMIN HCL 500 MG TABLET PO (08:57)
[2024-09-16] MEDS: SENNOSIDES 8.6 MG TABLET PO (08:57)
[2024-09-16 08:58] VITALS: BP 137/77; PULSE 67
[2024-09-16] MEDS: METOPROLOL ER 50 MG TABLET 100 MG PO (08:58)
[2024-09-16] MEDS: lisinopriL 10 MG TABLET PO (08:58)
[2024-09-16] MEDS: ASPIRIN EC 81 MG TABLET PO (08:58)
[2024-09-16] MEDS: APIXABAN 5 MG TABLET 2.5 MG PO (08:58)
--- NOTE | 2024-09-16 09:34 | P.DS_ITS ---
History of Present Illness History of Present Illness Date Patient Seen: 09/16/24 Time Patient Seen: 09:35 Date of Onset of Symptoms: 09/12/24 Chief complaint: Abd pain 2 days,nausea/vomiting Narrative: Patient is a 69-year-old male patient of Dr. Vasques who I am cross covering for. Patient with metastatic prostate cancer not treating and hepatitis C which has been untreated since diagnosed. His choice. Patient was in his usual health until night when he began having increased abdominal pain. Pain was diffuse. Nothing seemed to make it better or worse. Severe in nature. He had no diarrhea. Blood in his stool. But was nauseated. Was unable to keep any of his medication down. On Tuesday morning. Noticed his blood pressure was significantly elevated because of the and there his pain. Usually takes morphine but was unable to take that for his pain and this was not his usual pains. He had not been constipated. Has no other significant changes. He had no fevers or chills. Had no hematemesis. Was otherwise in stable condition. He has had a pretty severe headache at the time. Was feeling confused and was brought to the emergency room. Patient has a history of recurrent abdominal pain occurring intermittently. With no real definite cause. Very similar to this condition. In the past it has been thought to be secondary to marijuana induced nausea. Patient has since last fall when he was placed on morphine by the palliative care group has reduced his marijuana significantly although still using. He has otherwise had no significant change. In the past he has been able to give him fluids and pain control and resolves relatively quickly. Patient feeling significantly better today. Blood pressure is better today. He was given IV labetalol last night hydralazine IV and nitro paste. Was unable to keep his metoprolol down last night. Was able to take some fluids this morning. Past medical history. Metastatic prostate cancer Type 2 diabetes non-insulin dependent Hypertension Paroxysmal atrial fibrillation Chronic systolic heart failure Generalized anxiety disorder Uncomplicated opioid dependence Mixed hyperlipidemia Past surgical history History of coronary artery disease with stent placement History Of angioplasty coronary arteries Inguinal hernia repair x2 Laminectomy Social history lives in and a [place] in his own house. Has caregivers. Single with 3 children. Retired Discharge Providers Provider Date of admission: 09/14/24 18:08 Discharge Date: 09/16/24 Primary care physician: Khang Vasques MD Consults: 09/15/24 09:54 Consult to Physical Therapy Evaluate & Treat Comment: evaluation for home Physician Instructions: Evaluate and Treat Discharge provider: Brennan Escobedo MD Summary Hospital Course Discharge Diagnosis: Abdominal pain Metabolic encephalopathy Hypertensive crisis Nausea and vomiting Dehydration Anemia Metastatic prostate cancer Hepatitis C with cirrhosis Coronary artery disease Paroxysmal atrial fibrillation Hospital Course: Abdominal pain. Patient was admitted with severe abdominal pain. CT scan was negative. White count was normal. Patient was admitted and placed on IV pain medicines. Within 24 hours patient was completely normalized. Etiology was unclear. But patient resolved and was feeling well. On day 2 he began to eat and was able to tolerate food with no pain. He is completely pain-free on discharge. No further workup at this time. Metabolic encephalopathy. Probably secondary to elevated blood pressure. And pain. CT scan was negative. Completely normalize by 12 hours. And was back to his normal self. This resolved as his blood pressure came down and his pain was controlled. Nausea resolved. Hypertensive crisis. Patient's blood pressure was markedly elevated in the 220 systolic. Patient was unable to take oral medicines although this was attempted. He would thrown up. Hydralazine was given with not a lot of improvement. He was then given labetalol 10 mg IV and half-inch of nitro paste was placed. An over the next 12 hours completely normalized he was able to take his oral medicines and his blood pressure has been overall good. He does have some mild elevation in the middle of the night which is normal for him and was given his usual dose of metoprolol in the morning and he did well. Feeling well. And at this point will be followed as an outpatient. May need to have additional medications in the evening to control morning blood pressure. Will allow BMD to do that. Nausea and vomiting. Secondary to abdominal pain. Etiology is unclear. Aggressively initially with Zofran but RR interval increased. And that was discontinued. He was given rectal promethazine which worked well for him. And by morning his nausea and vomiting had resolved along with his abdominal pain. Etiology is unclear will be followed as outpatient. Dehydration. Patient was mildly dehydrated on admission. He was given fluids over the 1st 12 hours due to his blood pressure was minimally aggressive. And will be followed. Anemia. Probable combination hydration patient was given a L in the emergency room and hydrated overnight. It is stabilized. Anticipate this is a combination of chronic disease and hydration. Can be followed as an outpatient with PMD. Metastatic prostate cancer. Patient's pain control has been good since we initially started IV pain control he is back on his usual oral morphine seems to be doing well. And will be followed. Patient is on palliative care and will be transferred to hospice as needed. Coronary artery disease. Was stable throughout the course of his admission. Patient has end-stage disease. And is being treated with palliative care. No need for change at this time. Paroxysmal atrial fibrillation. Patient on anticoagulation. Beta-blockers. Actually had no evidence of atrial fibrillation while in admission. Well- controlled. Will follow. Status at Discharge Cognitive/behavioral status at discharge: oriented Functional status at discharge: independent ambulation Overall status at discharge: patient is back to baseline Exam Vital Signs (past 8 hours): - 09/16/24 04:50 09/16/24 08:51 09/16/24 08:58 Temperature 96.8 F L Pulse Rate 64 67 67 Respiratory Rate 18 Blood Pressure 164/91 H 137/77 137/77 Pulse Oximetry 98 Oxygen Flow Rate 0 09/16/24 08:58 Temperature Pulse Rate Respiratory Rate Blood Pressure 137/77 Pulse Oximetry Oxygen Flow Rate Oxygen Delivery Method Room Air Oxygen Flow Rate 0 Narrative Exam Narrative: Alert smiling interactive male mildly fatigued in appearance in no acute distress Mucous membranes moist neck supple without adenopathy lungs are clear heart is regular rate and rhythm abdomen is soft positive bowel sounds nontender Objective Labs 09/16/24 04:45 09/16/24 04:45 Labs: Laboratory Results - last 24 hr 09/16/24 04:45 WBC 5.8 RBC 3.57 L Hgb 11.0 L Hct 32.0 L MCV 89.7 MCH 30.7 MCHC 34.2 RDW 12.6 Plt Count 118 L Neut % (Auto) 60.9 Lymph % (Auto) 24.4 L [place] % (Auto) 12.2 Eos % (Auto) 1.9 L Baso % (Auto) 0.6 Neut # (Auto) 3500 Lymph # (Auto) 1400 [place] # (Auto) 700 Eos # (Auto) 100 Baso # (Auto) 0 Sodium 134 L Potassium 3.4 Chloride 109 H Carbon Dioxide 21 L BUN 29 H Creatinine 0.98 Estimated GFR > 60 BUN/Creatinine Ratio 29.6 H Glucose 158 H Calcium 8.8 Total Bilirubin 0.8 AST 59 ALT 55 H Alkaline Phosphatase 89 Total Protein 6.7 Albumin 3.4 L Globulin 3.3 Albumin/Globulin Ratio 1.0 PFSH Medical History Hypertensive urgency Colitis Hematuria Uncomplicated opioid dependence Generalized anxiety disorder Cannabis abuse Prostate cancer (~05/2019) Paroxysmal A-fib Transaminitis Kidney stones Diverticulosis of large intestine (03/31/12) Chronic hepatitis Coronary artery disease involving [place] coronary artery of [place] heart without angina pectoris (~2006) Essential hypertension Mixed hyperlipidemia Surgical History H/O heart artery stent (~2006) Hx of inguinal hernia surgery (~03/07/14) Hx of inguinal hernia surgery (~09/20/08) Status post laminectomy History of angioplasty (~12/2006) Social History marital status: unmarried,single number of children: 3 household members: none lives independently: Yes caregiver/support person: No housing: house pets and animals: No education level: high school occupational status: other 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/christianity: None leisure activities: music, fishing and other Smoking Status: Former smoker Tobacco: How many years used: 56 Smokeless tobacco user: other quit status: has quit before second hand exposure: Yes (On farm[place]oat.) alcohol intake: former substance use type: does not use and marijuana eating out: rarely or never Type(s) of exercise: normal ROM and activity and additional Discharge Assessment & Plan Assessment and Plan Assessment: Improved back to baseline Plan of Treatment: Discharge home Discharge Plan Discharge Plan Patient Disposition: Home Discharge orders & Medications Prescriptions: Continued metformin 500 mg tablet 500 mg PO BID Qty: 180 3RF metoprolol succinate 100 mg tablet extended release 24 hr 100 mg PO BID Qty: 180 3RF duloxetine [Cymbalta] 20 mg capsule,delayed release(DR/EC) 20 mg PO DAILY Qty: 90 3RF morphine 10 mg/5 mL solution 10 mg PO Q6H PRN (Reason: pain) Qty: 100 0RF morphine 15 mg tablet 7.5 - 15 mg PO Q4H MDD 60mg PRN (Reason: chest pain/bone pain) Qty: 120 0RF atorvastatin 80 mg tablet 80 mg PO BEDTIME Eliquis 2.5 mg tablet 2.5 mg PO BID clopidogrel 75 mg tablet 75 mg PO DAILY sennosides [senna] 8.6 mg tablet 8.6 mg PO DAILY nitroglycerin 0.4 mg tablet, sublingual 0.4 mg sublingual Q5-15M PRN (Reason: Chest Pain) ondansetron HCl 4 mg tablet 4 mg PO Q8H PRN (Reason: Nausea And Vomiting) aspirin [Adult Low Dose Aspirin] 81 mg PO QAM isosorbide mononitrate 30 mg tablet extended release 24 hr 30 mg PO DAILY Patient Comments: Per Significant other Lisandra. tamsulosin 0.4 mg capsule 0.4 mg PO DAILY Patient Comments: take 1 capsule by mouth once daily lisinopril 10 mg tablet 10 mg PO DAILY morphine 30 mg tablet 15 - 30 mg PO Q6H MDD 60mg PRN (Reason: pain) Qty: 30 0RF promethazine 25 mg suppository 25 mg MI Q4-6H PRN (Reason: nausea and vomiting) Qty: 12 0RF Follow up/Referrals: Khang Vasques MD [Primary Care Provider] - 2 Weeks Discharge Health Status Multidrug resistant organism: No MDRO Diet/Activity/Treatments Diet: Diet as Tolerated Activity: as tolerated Skin/Wound/Dressing Care Report to your healthcare provider any signs of infection, such as:: chills, fever and increased pain Visit Report/Discharge Packet Stand Alone Forms: Patient Portal/API, Stroke Signs & Symptoms Discharge Data Primary Care Provider: Khang Vasques Attending Provider: Brennan Escobedo Admit Date/Time: 09/14/24 18:08
== END 2024-09-16 10:45 | disposition home or self-care (01) ==
LOC: ED 17:12 → AC 18:09
PROVIDERS: Emergency Medicine; Admitting Provider Family Medicine; Emergency Provider Emergency Medicine; PCP Internal Medicine; Referring Provider Emergency Medicine; Visit Provider Family Medicine
DX: R10.9 Unspecified abdominal pain (principal); R11.2 Nausea with vomiting, unspecified; E11.9 Type 2 diabetes mellitus without complications; I48.0 Paroxysmal atrial fibrillation; C61 Malignant neoplasm of prostate; B19.20 Unspecified viral hepatitis C without hepatic coma; I16.9 Hypertensive crisis, unspecified; I25.10 Atherosclerotic heart disease of native coronary artery without angina pectoris; K74.69 Other cirrhosis of liver; D64.9 Anemia, unspecified; E86.0 Dehydration; G93.41 Metabolic encephalopathy; I11.0 Hypertensive heart disease with heart failure; Z79.84 Long term (current) use of oral hypoglycemic drugs
CPT/HCPCS: 36415; 70450; 74177; 80053; 81003; 81015; 82140; 82962; 83690; 85025; 85610; 85651; 87086; 93005; 96361; 96374; 96375; 96376; 97161; 99284; 99285; G0378; J0360; J1171; J1885; J2270; J2405; J2765; Q9967

== ENCOUNTER 2024-11-23 09:23 | Emergency (ER) | payer MEDICARE, SELFPAY ==
[2024-09-14 19:06] VITALS: BMI 20.3
[2024-11-23] VITALS (13 sets, daily range): BP systolic 133–204; BP diastolic 78–118; PULSE 53–77; RESP 14; TEMP 37.1; O2SAT 92–100; BMI 20.3
--- NOTE | 2024-11-23 11:25 | ED.BACK ---
HPI - Back Pain/Injury General Chief Complaint: Back Pain/Injury Stated Complaint: Back Pain Time Seen by Provider: 11/23/24 11:23 History of Present Illness HPI Narrative: Patient is a 69-year-old male history of non-insulin dependent diabetes, history of prostate cancer-not undergoing treatment in palliative care, chronic back pain, presenting today with severe back pain. His back pain got out of control he was extremely nauseous and vomiting not able to keep his blood pressure pills down. He was admitted here 09/15/2024 for abdominal pain nausea vomiting. He has had multiple episodes of this previously and has had full workup in the past. He reports that his midthoracic back hurts hurts to move and touch his feels worse than normal. Related Data Home Medications Medication Instructions Recorded Confirmed tamsulosin 0.4 mg capsule 0.4 mg PO DAILY 09/15/21 11/02/24 atorvastatin 80 mg tablet 80 mg PO BEDTIME 07/30/22 11/02/24 apixaban 2.5 mg tablet (Eliquis) 2.5 mg PO BID 03/29/24 11/02/24 clopidogrel 75 mg tablet 75 mg PO DAILY 03/29/24 11/02/24 nitroglycerin 0.4 mg sublingual 0.4 mg sublingual Q5-15M PRN Chest 03/29/24 11/02/24 tablet Pain ondansetron HCl 4 mg tablet 4 mg PO Q8H PRN Nausea And Vomiting 03/29/24 11/02/24 sennosides 8.6 mg tablet (senna) 8.6 mg PO DAILY constipation 03/29/24 11/02/24 aspirin [Adult Low Dose Aspirin] 81 mg PO QAM 08/03/24 11/02/24 lisinopril 10 mg tablet 10 mg PO DAILY 08/19/24 11/02/24 isosorbide mononitrate 30 mg 30 mg PO DAILY 08/21/24 11/02/24 tablet,extended release 24 hr Previous Rx's Medication Instructions Recorded promethazine 25 mg rectal 25 mg PA Q4-6H PRN nausea and 11/18/20 suppository vomiting #12 ea metoprolol succinate 100 mg 100 mg PO BID #180 tabs 09/27/23 tablet,extended release 24 hr duloxetine 20 mg capsule,delayed 20 mg PO DAILY #90 caps 07/16/24 release (Cymbalta) morphine 10 mg/5 mL oral solution 10 mg (5 mL) PO Q6H PRN pain #100 08/07/24 mL metformin 500 mg tablet 500 mg PO BID #180 tabs 09/17/24 morphine 15 mg immediate release 7.5 - 15 mg (0.5 - 1 x 15 mg) PO 11/19/24 tablet Q4H PRN chest pain/bone pain #120 tabs Allergies Allergy/AdvReac Type Severity Reaction Status Date / Time No Known Drug Allergies Allergy Verified 11/23/24 09:31 Patient History Medical History Hypertensive urgency Colitis Hematuria Uncomplicated opioid dependence Generalized anxiety disorder Cannabis abuse Prostate cancer (~05/2019) Paroxysmal A-fib Transaminitis Kidney stones Diverticulosis of large intestine (03/31/12) Chronic hepatitis Coronary artery disease involving [place] coronary artery of [place] heart without angina pectoris (~2006) Essential hypertension Mixed hyperlipidemia Surgical History H/O heart artery stent (~2006) Hx of inguinal hernia surgery (~03/07/14) Hx of inguinal hernia surgery (~09/20/08) Status post laminectomy History of angioplasty (~12/2006) Social History marital status: unmarried,single number of children: 3 household members: none lives independently: Yes caregiver/support person: No housing: house pets and animals: No education level: high school occupational status: other 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/gnosticism: None leisure activities: music, fishing and other Smoking Status: Never smoker Tobacco: How many years used: 56 Smokeless tobacco user: other quit status: has quit before second hand exposure: Yes (On [place].) alcohol intake: former substance use type: does not use and marijuana eating out: rarely or never Type(s) of exercise: normal ROM and activity and additional Smoking Status: Never smoker alcohol intake frequency: 0-2 drinks per day Alcohol type: beer Exam Initial Vital Signs Initial Vital Signs: Vital Signs Temperature 98.7 F 11/23/24 09:28 Pulse Rate 61 11/23/24 09:28 Respiratory Rate 14 11/23/24 09:28 Blood Pressure 200/111 H 11/23/24 09:28 Pulse Oximetry 100 11/23/24 09:28 Oxygen Delivery Method Room Air 11/23/24 09:28 GENERAL: Alert thin chronically ill 69-year-old male uncomfortable HEENT: Head atraumatic,EOMI, pupils reactive, face symmetric, moist mucous membranes CARDIOVASCULAR: Regular rate and rhythm without murmurs, rubs or gallops. RESPIRATORY: Breath sounds equal bilaterally, no wheezes rales or rhonchi. ABDOMEN: Soft, nontender. Normoactive bowel sounds all 4 quadrants. No guarding or rebound. BACK: Mid thoracic vertebral tenderness some mild paraspinal muscle tenderness no obvious step-offs he does have small contusion but no erythema or laceration EXTREMITIES: Normal range of motion, no clubbing or edema. Neurovascularly intact NEUROLOGICAL: Alert and oriented x4. Moving all extremities SKIN: Warm, dry, no laceration, no petechiae, no rashes or lesions. Course Orders Ordered: Discontinued Medications Hydromorphone HCl (Hydromorphone 1 Mg Inj) 1 mg IV Q2HR PRN PRN Reason: Pain, Moderate (4-6) Last Admin: 11/23/24 11:50 Dose: 1 mg Documented By: LUIS MANUEL Hydromorphone HCl (Hydromorphone 1 Mg Inj) 1 mg IV NOW ONE Stop: 11/23/24 13:14 Last Admin: 11/23/24 13:19 Dose: 1 mg Documented By: LUIS MANUEL Ondansetron HCl (Ondansetron 4 Mg/2 Ml Inj) 4 mg IV NOW ONE Stop: 11/23/24 11:36 Last Admin: 11/23/24 11:50 Dose: 4 mg Documented By: LUIS MANUEL Vital Signs Vital signs: Vital Signs - 8 hr 11/23/24 09:28 11/23/24 09:58 11/23/24 10:00 Temperature 98.7 F Pulse Rate 61 69 71 Respiratory Rate 14 Blood Pressure 200/111 H Pulse Oximetry 100 98 97 Oxygen Delivery Method Room Air 11/23/24 10:00 11/23/24 10:30 11/23/24 10:30 Temperature Pulse Rate 72 Respiratory Rate Blood Pressure 179/92 H 189/113 H Pulse Oximetry 99 Oxygen Delivery Method 11/23/24 11:00 11/23/24 11:00 11/23/24 11:30 Temperature Pulse Rate 68 70 Respiratory Rate Blood Pressure 204/118 H Pulse Oximetry 100 99 Oxygen Delivery Method Room Air 11/23/24 12:13 11/23/24 12:14 11/23/24 12:14 Temperature Pulse Rate 53 L 75 Respiratory Rate Blood Pressure 138/85 Pulse Oximetry 92 Oxygen Delivery Method 11/23/24 12:30 11/23/24 13:00 11/23/24 13:30 Temperature Pulse Rate 65 72 77 Respiratory Rate Blood Pressure Pulse Oximetry 99 99 98 Oxygen Delivery Method MDM - Back Pain/Injury Imaging Data Extremity x-ray #1: Radiologist's Impression: PROCEDURE: XR THORACIC SPINE 3V INDICATIONS: pain hx cancer TECHNIQUE: 3 views of the thoracic spine were acquired. COMPARISON: None. FINDINGS: Bones: No fractures or dislocations. No suspicious bony lesions. 12 pairs of ribs are noted, and appear intact where visualized. Diffuse osteopenia. Minimal chronic compressions. No acute compression fractures. Soft tissues: No paravertebral stripe thickening. IMPRESSION: Diffuse osteopenia with minimal chronic compressions. No acute compression fracture. No lytic or blastic bony lesion. Dictated by: Esa Frost M.D. on 11/23/2024 at 13:27 Approved by: Esa Frost M.D. on 11/23/2024 at 13:[address] [facility] Narrative Medical decision making narrative: Patient is 69-year-old male has multiple medical issues and comorbidities presenting today with acute on chronic back pain. It is definitely reproducible to touch and with movement I suspect musculoskeletal rather than other. X-ray does not show any metastasis or new fracture. Patient is feeling better after a couple doses of Dilaudid he has no longer nauseous or vomiting tolerating oral fluids. He does not need any medication at home. Blood pressure has also improved. Overall feels ready able to go home Discharge Plan Departure Patient Disposition: Home Clinical Impression: Acute on chronic back pain Instructions: DI for Low Back Pain Activity Restrictions/Additional Instructions: *You have been diagnosed with acute on chronic back *What to do: At this time please follow-up with your doctors increased movement as tolerated *Continue to take medications as directed *Follow up with your primary care provider in 2-3 days or call [phone] *Return to ER if you should have any new, worsening or concerning symptoms Prescriptions: No Action metoprolol succinate 100 mg tablet extended release 24 hr 100 mg PO BID Qty: 180 3RF duloxetine [Cymbalta] 20 mg capsule,delayed release(DR/EC) 20 mg PO DAILY Qty: 90 3RF morphine 10 mg/5 mL solution 10 mg PO Q6H PRN (Reason: pain) Qty: 100 0RF metformin 500 mg tablet 500 mg PO BID Qty: 180 3RF morphine 15 mg tablet 7.5 - 15 mg PO Q4H MDD 60mg PRN (Reason: chest pain/bone pain) Qty: 120 0RF atorvastatin 80 mg tablet 80 mg PO BEDTIME Eliquis 2.5 mg tablet 2.5 mg PO BID clopidogrel 75 mg tablet 75 mg PO DAILY sennosides [senna] 8.6 mg tablet 8.6 mg PO DAILY nitroglycerin 0.4 mg tablet, sublingual 0.4 mg sublingual Q5-15M PRN (Reason: Chest Pain) ondansetron HCl 4 mg tablet 4 mg PO Q8H PRN (Reason: Nausea And Vomiting) aspirin [Adult Low Dose Aspirin] 81 mg PO QAM isosorbide mononitrate 30 mg tablet extended release 24 hr 30 mg PO DAILY Patient Comments: Per Significant other Lisandra. tamsulosin 0.4 mg capsule 0.4 mg PO DAILY Patient Comments: take 1 capsule by mouth once daily lisinopril 10 mg tablet 10 mg PO DAILY promethazine 25 mg suppository 25 mg PA Q4-6H PRN (Reason: nausea and vomiting) Qty: 12 0RF Referrals: Khang Vasques MD [Primary Care Provider] - Stand Alone Forms: Patient Portal/API/Survey
--- NOTE | 2024-11-23 11:35 | DI.RAD.S_ITS ---
PROCEDURE: XR THORACIC SPINE 3V INDICATIONS: pain hx cancer TECHNIQUE: 3 views of the thoracic spine were acquired. COMPARISON: None. FINDINGS: Bones: No fractures or dislocations. No suspicious bony lesions. 12 pairs of ribs are noted, and appear intact where visualized. Diffuse osteopenia. Minimal chronic compressions. No acute compression fractures. Soft tissues: No paravertebral stripe thickening. IMPRESSION: Diffuse osteopenia with minimal chronic compressions. No acute compression fracture. No lytic or blastic bony lesion. Dictated by: Esa Frost M.D. on 11/23/2024 at 13:27 Approved by: Esa Frost M.D. on 11/23/2024 at 13:28
[2024-11-23] MEDS: ONDANSETRON 4 MG/2 ML INJ IV (11:50)
[2024-11-23] MEDS: HYDROMORPHONE 1 MG INJ IV ×2 (11:50→13:19)
== END 2024-11-23 14:12 | disposition home or self-care (01) ==
PROVIDERS: Emergency Provider Emergency Medicine; PCP Internal Medicine
DX: M54.50 Low back pain, unspecified (principal); E11.9 Type 2 diabetes mellitus without complications; Z79.84 Long term (current) use of oral hypoglycemic drugs; R11.2 Nausea with vomiting, unspecified; Z85.46 Personal history of malignant neoplasm of prostate
CPT/HCPCS: 72072; 96374; 96375; 96376; 99283; 99284; J1171; J2405

== ENCOUNTER 2024-12-05 08:49 | Inpatient (IN) | payer MEDICARE, OTHER, SELFPAY ==
[2024-09-14 19:06] VITALS: BMI 20.3
[2024-12-05] VITALS (13 sets, daily range): BP systolic 88–135; BP diastolic 54–81; PULSE 61–100; RESP 9–24; TEMP 36.4–37; O2SAT 97–100; BMI 214.2; BMI 18.1
--- NOTE | 2024-12-05 08:55 | ED_ITS ---
HPI - General Adult General Chief complaint: Trauma Stated complaint: weakness, N\V Time Seen by Provider: 12/05/24 08:51 History of Present Illness HPI narrative: 69-year-old gentleman brought in by medics with reports of 2 days of vomiting black liquid and also noting black stools. Patient is weak, relatively hypotensive, significantly intravascularly dry and slightly altered mental status, we will fall asleep mid sentence, unable to offer any history Records indicate he has a history of prostate cancer with palliative care currently metastatic to bone with opioid use for chronic pain secondary to his metastatic cancer, coronary artery disease, diabetes, hypertension reportedly fell in the shower today and did hit his head. Primary care notes reviewed and on November 30 was seen complaining of increasing weakness and general overall malaise. Related Data Home Medications Medication Instructions Recorded Confirmed tamsulosin 0.4 mg capsule 0.4 mg PO DAILY 09/15/21 12/05/24 atorvastatin 80 mg tablet 80 mg PO BEDTIME 07/30/22 12/05/24 apixaban 2.5 mg tablet (Eliquis) 2.5 mg PO BID 03/29/24 12/05/24 clopidogrel 75 mg tablet 75 mg PO DAILY 03/29/24 12/05/24 nitroglycerin 0.4 mg sublingual 0.4 mg sublingual Q5-15M PRN Chest 03/29/24 12/05/24 tablet Pain ondansetron HCl 4 mg tablet 4 mg PO Q8H PRN Nausea And Vomiting 03/29/24 12/05/24 sennosides 8.6 mg tablet (senna) 8.6 mg PO DAILY constipation 03/29/24 12/05/24 aspirin [Adult Low Dose Aspirin] 81 mg PO QAM 08/03/24 12/05/24 lisinopril 10 mg tablet 10 mg PO DAILY 08/19/24 12/05/24 isosorbide mononitrate 30 mg 30 mg PO DAILY 08/21/24 12/05/24 tablet,extended release 24 hr Previous Rx's Medication Instructions Recorded promethazine 25 mg rectal 25 mg OK Q4-6H PRN nausea and 11/18/20 suppository vomiting #12 ea metoprolol succinate 100 mg 100 mg PO BID #180 tabs 09/27/23 tablet,extended release 24 hr duloxetine 20 mg capsule,delayed 20 mg PO DAILY #90 caps 07/16/24 release (Cymbalta) morphine 10 mg/5 mL oral solution 10 mg (5 mL) PO Q6H PRN pain #100 08/07/24 mL metformin 500 mg tablet 500 mg PO BID #180 tabs 09/17/24 morphine 15 mg immediate release 7.5 - 15 mg (0.5 - 1 x 15 mg) PO 11/19/24 tablet Q4H PRN chest pain/bone pain #120 tabs Allergies Allergy/AdvReac Type Severity Reaction Status Date / Time No Known Drug Allergies Allergy Verified 11/30/24 11:35 Review of Systems Review of Systems ROS Unobtainable: Unobtainable due to medical condition Patient History Medical History Hypertensive urgency Colitis Hematuria Uncomplicated opioid dependence Generalized anxiety disorder Cannabis abuse Prostate cancer (~05/2019) Paroxysmal A-fib Transaminitis Kidney stones Diverticulosis of large intestine (03/31/12) Chronic hepatitis Coronary artery disease involving [place] coronary artery of [place] heart without angina pectoris (~2006) Essential hypertension Mixed hyperlipidemia Surgical History H/O heart artery stent (~2006) Hx of inguinal hernia surgery (~03/07/14) Hx of inguinal hernia surgery (~09/20/08) Status post laminectomy History of angioplasty (~12/2006) Social History marital status: unmarried,single number of children: 3 household members: caregiver lives independently: Yes caregiver/support person: No housing: house pets and animals: No education level: high school occupational status: other 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/adventist: None leisure activities: music, fishing and other Smoking Status: Never smoker Tobacco: How many years used: 56 Smokeless tobacco user: other quit status: has quit before second hand exposure: Yes (On farm[place]/Boat.) alcohol intake: former substance use type: does not use and marijuana eating out: rarely or never Type(s) of exercise: normal ROM and activity and additional Smoking Status: Never smoker alcohol intake frequency: 0-2 drinks per day Alcohol type: beer Exam Initial Vital Signs Initial Vital Signs: Vital Signs Temperature 98.6 F 12/05/24 08:57 Pulse Rate 100 H 12/05/24 08:57 Respiratory Rate 16 12/05/24 08:57 Blood Pressure 99/58 L 12/05/24 08:57 Pulse Oximetry 97 12/05/24 08:57 Oxygen Delivery Method Room Air 12/05/24 08:57 General: Appears chronically ill and acutely worse, very dry mucous membranes, HEENT: Dry mucous membr Neck: No JVD, supple Respiratory: Lungs are clear to auscultation, no wheezing no rales no rhonchi. Full and symmetrical air movement Cardiac: Regular rate and rhythm no murmurs no bruits Abdomen: Soft, tender in the epigastrium without rebound or guarding Skin: Pale, dry, overall poorly perfused Neurologic: Globally weak but is moving all extremities Extremities: No trauma, abrasions or contusions associated with his fall this morning Psych: Slowed, falls asleep mid sentence, Course Orders Ordered: Acetaminophen (Acetaminophen 325 Mg Tablet) 650 mg PO Q6H PRN PRN Reason: Fever/Mild Pain (1-3) Atorvastatin Calcium (Atorvastatin 20 Mg Tablet) 80 mg PO BEDTIME [facility] Last Admin: 12/07/24 21:14 Dose: 80 mg Documented By: Admin: 12/06/24 21:55 Dose: 80 mg Documented By: Admin: 12/05/24 22:00 Dose: 80 mg Documented By: RICKEY Duloxetine HCl (Duloxetine 20 Mg Capsule) 20 mg PO DAILY [facility] Last Admin: 12/07/24 09:26 Dose: 20 mg Documented By: Admin: 12/06/24 08:50 Dose: 20 mg Documented By: SERGIO Dextrose (D10w) 100 mls @ 999 mls/hr IV PRN PRN PRN Reason: Hypoglycemia Sodium Chloride (Normal Saline 0.9%) 1,000 mls @ 100 mls/hr IV CONT [facility] Last Admin: 12/08/24 03:33 Dose: 100 mls/hr Documented By: Infusion: 12/08/24 01:20 Dose: Infused Documented By: Infusion: 12/07/24 17:49 Dose: 100 mls/hr Documented By: Infusion: 12/07/24 17:48 Dose: 100 mls/hr Documented By: Admin: 12/07/24 16:09 Dose: 150 mls/hr Documented By: Infusion: 12/07/24 15:56 Dose: Infused Documented By: Admin: 12/07/24 09:15 Dose: 150 mls/hr Documented By: Infusion: 12/07/24 08:40 Dose: Infused Documented By: Admin: 12/07/24 01:59 Dose: 150 mls/hr Documented By: Infusion: 12/07/24 01:13 Dose: Infused Documented By: Admin: 12/06/24 18:32 Dose: 150 mls/hr Documented By: Infusion: 12/06/24 18:16 Dose: Infused Documented By: Admin: 12/06/24 11:35 Dose: 150 mls/hr Documented By: Infusion: 12/06/24 05:16 Dose: Infused Documented By: Admin: 12/05/24 22:35 Dose: 150 mls/hr Documented By: Infusion: 12/05/24 20:50 Dose: Infused Documented By: Admin: 12/05/24 13:59 Dose: 150 mls/hr Documented By: SUGEY Sodium Chloride (Normal Saline 0.9%) 500 mls @ 1,000 mls/hr IV PRN PRN PRN Reason: Hypotension Last Infusion: 12/06/24 01:00 Dose: Infused Documented By: Admin: 12/06/24 00:25 Dose: 1,000 mls/hr Documented By: RICKEY Insulin Human Lispro (Insulin Lispro 100 Unit/Ml 3ml Vial) 0 unit SUBCUT ACHS [facility]; Protocol Last Admin: 12/07/24 21:09 Dose: Not Given Documented By: Admin: 12/07/24 17:10 Dose: Not Given Documented By: Admin: 12/07/24 14:06 Dose: 1 unit Documented By: ZANDER Co-signed By: ANTON Admin: 12/07/24 09:19 Dose: 1 unit Documented By: ZANDER Co-signed By: SABA Admin: 12/06/24 22:00 Dose: Not Given Documented By: Admin: 12/06/24 16:50 Dose: Not Given Documented By: Admin: 12/06/24 11:56 Dose: 5 unit Documented By: SERGIO Co-signed By: SUGEY Admin: 12/06/24 08:50 Dose: Not Given Documented By: Admin: 12/05/24 22:01 Dose: Not Given Documented By: Admin: 12/05/24 16:52 Dose: Not Given Documented By: SERGIO Isosorbide Mononitrate (Isosorbide Mononitrate Er 30 Mg Tablet) 30 mg PO DAILY [facility] Last Admin: 12/07/24 09:26 Dose: 30 mg Documented By: Admin: 12/06/24 08:51 Dose: 30 mg Documented By: SERGIO Metoprolol Tartrate (Metoprolol Ir 25 Mg Tablet) 12.5 mg PO Q8H [facility] Last Admin: 12/07/24 23:24 Dose: 12.5 mg Documented By: Admin: 12/07/24 16:12 Dose: 12.5 mg Documented By: Admin: 12/07/24 09:26 Dose: 12.5 mg Documented By: Admin: 12/06/24 23:33 Dose: 12.5 mg Documented By: Admin: 12/06/24 15:27 Dose: Not Given Documented By: Admin: 12/06/24 08:50 Dose: 12.5 mg Documented By: SERGIO Morphine Sulfate (Morphine Ir 15 Mg Tablet) 15 mg PO Q4H PRN PRN Reason: chest pain/bone pain Last Admin: 12/08/24 03:38 Dose: 15 mg Documented By: Admin: 12/07/24 22:38 Dose: 15 mg Documented By: Admin: 12/07/24 18:40 Dose: 15 mg Documented By: Admin: 12/07/24 16:12 Dose: 15 mg Documented By: Admin: 12/07/24 09:31 Dose: 15 mg Documented By: ZANDER Naloxone HCl (Naloxone 0.4 Mg/Ml Vial) 0.2 mg IV Q2MIN PRN PRN Reason: Opiate Reversal Ondansetron HCl (Ondansetron 4 Mg/2 Ml Inj) 4 mg IV Q8HR PRN PRN Reason: Nausea And Vomiting Last Admin: 12/07/24 16:28 Dose: 4 mg Documented By: Admin: 12/05/24 22:20 Dose: 4 mg Documented By: RICKEY Pantoprazole Sodium (Pantoprazole 40 Mg Vial) 40 mg IV DAILY [facility] Stop: 12/08/24 07:00 Last Admin: 12/07/24 09:26 Dose: 40 mg Documented By: Admin: 12/06/24 08:51 Dose: 40 mg Documented By: SERGIO Pantoprazole Sodium (Pantoprazole Dr 40 Mg Tablet) 40 mg PO 0700,2100 [facility] Sennosides (Sennosides 8.6 Mg Tablet) 17.2 mg PO BEDTIME [facility] Last Admin: 12/07/24 21:14 Dose: 17.2 mg Documented By: Admin: 12/06/24 21:55 Dose: 17.2 mg Documented By: Admin: 12/05/24 22:01 Dose: Not Given Documented By: RICKEY Tamsulosin HCl (Tamsulosin 0.4 Mg Capsule) 0.4 mg PO DAILY [facility] Last Admin: 12/07/24 09:23 Dose: 0.4 mg Documented By: Admin: 12/06/24 08:50 Dose: 0.4 mg Documented By: SERGIO Discontinued Medications Hydromorphone HCl (Hydromorphone 1 Mg Inj) 1 mg IV NOW ONE Stop: 12/05/24 11:20 Last Admin: 12/05/24 11:24 Dose: 1 mg Documented By: Hydromorphone HCl (Hydromorphone 0.5 Mg Inj) 0.5 mg IV Q3H PRN PRN Reason: Pain, Moderate (4-6) Hydromorphone HCl (Hydromorphone 1 Mg Inj) 1 mg IV Q3H PRN PRN Reason: Pain, Severe (7-10) Last Admin: 12/07/24 02:53 Dose: 1 mg Documented By: Admin: 12/06/24 21:58 Dose: 1 mg Documented By: Admin: 12/06/24 16:55 Dose: 1 mg Documented By: Admin: 12/06/24 13:02 Dose: 1 mg Documented By: Admin: 12/06/24 09:53 Dose: 1 mg Documented By: SERGIO Sodium Chloride (Normal Saline 0.9%) 1,000 mls @ 1,000 mls/hr IV BOLUS ONE Stop: 12/05/24 10:31 Last Infusion: 12/05/24 11:27 Dose: Infused Documented By: Admin: 12/05/24 10:23 Dose: 1,000 mls/hr Documented By: Sodium Chloride (Normal Saline 0.9%) 1,000 mls @ 1,000 mls/hr IV BOLUS ONE Stop: 12/05/24 12:18 Last Infusion: 12/05/24 12:50 Dose: Infused Documented By: Admin: 12/05/24 11:24 Dose: 1,000 mls/hr Documented By: Sodium Chloride (Normal Saline 0.45%) 1,000 mls @ 125 mls/hr IV CONT [facility] Last Admin: 12/05/24 16:06 Dose: Not Given Documented By: SERGIO Sodium Chloride (Normal Saline 0.9%) 1,000 mls @ 1,000 mls/hr IV BOLUS ONE Stop: 12/05/24 17:25 Last Admin: 12/05/24 16:54 Dose: 1,000 mls/hr Documented By: SERGIO Lidocaine HCl (Lidocaine 2% (Glydo) 6 Ml Gel) 6 ml TOP NOW ONE Stop: 12/05/24 11:33 Last Admin: 12/05/24 11:35 Dose: 6 ml Documented By: Morphine Sulfate (Morphine Ir 15 Mg Tablet) 15 mg PO Q6H PRN PRN Reason: chest pain/bone pain Last Admin: 12/07/24 05:59 Dose: 15 mg Documented By: Admin: 12/06/24 23:33 Dose: 15 mg Documented By: Admin: 12/06/24 15:27 Dose: 15 mg Documented By: Admin: 12/06/24 08:50 Dose: 15 mg Documented By: Admin: 12/05/24 22:02 Dose: 15 mg Documented By: Admin: 12/05/24 14:40 Dose: 15 mg Documented By: SUGEY Pantoprazole Sodium (Pantoprazole 40 Mg Vial) 80 mg IV NOW ONE Stop: 12/05/24 09:33 Last Admin: 12/05/24 10:23 Dose: 80 mg Documented By: Vital Signs Vital signs: Vital Signs - 8 hr 12/05/24 08:57 Temperature 98.6 F Pulse Rate 100 H Respiratory Rate 16 Blood Pressure 99/58 L Pulse Oximetry 97 Oxygen Delivery Method Room Air Medical Decision Making Lab Data 12/07/24 06:10 12/07/24 06:10 Labs: Lab Results 12/05/24 12/05/24 12/05/24 Range/Units 08:56 10:53 10:56 WBC 4.7 (4.5-11.0) X10^3/uL RBC 3.32 L (4.5-5.9) X10^6/uL Hgb 10.5 L (13.5-17.5) g/dL Hct 29.1 L (41-53) % MCV 87.7 (80-100) fL MCH 31.6 (26-34) PG MCHC 36.1 H (30-36) % RDW 15.1 H (11.6-14.8) % Plt Count 118 L (150-400) X10^3/uL Neut % (Auto) 58.3 (50-75) % Lymph % (Auto) 22.4 L (25-40) % [place] % (Auto) 13.7 (3-14) % Eos % (Auto) 4.7 H (2-4) % Baso % (Auto) 0.9 (0-2) % Neut # (Auto) 2800 (9953-7109) /uL Lymph # (Auto) 1100 (1008-4969) /uL [place] # (Auto) 600 (0-900) /uL Eos # (Auto) 200 (0-450) /uL Baso # (Auto) 0 (0-100) /uL Sodium 131 L (137-145) mmol/L Potassium 4.7 (3.4-5.1) mmol/L Chloride 89 L (98-107) mmol/L Carbon Dioxide 24 (22-32) mmol/L BUN 115 H* (9-20) mg/dL Creatinine 9.40 H* (0.66-1.25) mg/dL Estimated GFR 6 L (>60) mL/min BUN/Creatinine Ratio 12.2 (6-22) Glucose 121 H (80-110) mg/dL Lactate 2.9 H 2.6 H (0.7-2.1) mmol/L Calcium 9.2 (8.4-10.2) mg/dL Magnesium 2.3 (1.6-2.3) mg/dL Total Bilirubin 1.4 H (0.2-1.3) mg/dL AST 51 (17-59) IU/L ALT 41 (<50) IU/L Alkaline Phosphatase 75 (38-126) U/L Troponin I < 0.012 (0.01-0.034) ng/mL Total Protein 7.3 (6.3-8.2) g/dL Albumin 4.3 (3.5-5.0) g/dL Globulin 3.0 (1.7-4.1) g/dL Albumin/Globulin Ratio 1.4 (1.0-2.8) Lipase 75 (23-300) U/L Urine Color [place] Urine Appearance Clear Urine pH 5.5 (4.5-8.0) Ur Specific [place] >=1.030 H (1.000-1.035) Urine Protein 1+ H (Negative) Urine Glucose (UA) Negative (Negative) g/dL Urine Ketones Trace H (NEGATIVE) Urine Occult Blood Trace-intact (Negative) Urine Nitrate Negative (Negative) Urine Bilirubin 1+ H (NEGATIVE) Ur Bilirubin Confirm Negative (Negative) Urine Urobilinogen 1.0 (0.2) E.U./dL Ur Leukocyte Esterase Negative (NEGATIVE) Urine RBC None seen (0-5/HPF) Urine WBC None seen (0-5/HPF) Ur Squamous Epith Cells 1-5 /hpf (0-5/HPF) Urine Bacteria None seen (None) Hyaline Casts 1-5/lpf (None) Granular Casts 0-1/lpf (None) Ur Culture Indicated? Cult not indicated Vol Urine Centrifuged 10ml (spun) Blood Type O Positive Antibody Screen Negative 12/05/24 Range/Units 12:00 WBC (4.5-11.0) X10^3/uL RBC (4.5-5.9) X10^6/uL Hgb 10.2 L (13.5-17.5) g/dL Hct 28.7 L (41-53) % MCV (80-100) fL MCH (26-34) PG MCHC (30-36) % RDW (11.6-14.8) % Plt Count (150-400) X10^3/uL Neut % (Auto) (50-75) % Lymph % (Auto) (25-40) % [place] % (Auto) (3-14) % Eos % (Auto) (2-4) % Baso % (Auto) (0-2) % Neut # (Auto) (4526-7776) /uL Lymph # (Auto) (2037-3758) /uL [place] # (Auto) (0-900) /uL Eos # (Auto) (0-450) /uL Baso # (Auto) (0-100) /uL Sodium (137-145) mmol/L Potassium (3.4-5.1) mmol/L Chloride (98-107) mmol/L Carbon Dioxide (22-32) mmol/L BUN (9-20) mg/dL Creatinine (0.66-1.25) mg/dL Estimated GFR (>60) mL/min BUN/Creatinine Ratio (6-22) Glucose (80-110) mg/dL Lactate (0.7-2.1) mmol/L Calcium (8.4-10.2) mg/dL Magnesium (1.6-2.3) mg/dL Total Bilirubin (0.2-1.3) mg/dL AST (17-59) IU/L ALT (<50) IU/L Alkaline Phosphatase (38-126) U/L Troponin I (0.01-0.034) ng/mL Total Protein (6.3-8.2) g/dL Albumin (3.5-5.0) g/dL Globulin (1.7-4.1) g/dL Albumin/Globulin Ratio (1.0-2.8) Lipase (23-300) U/L Urine Color Urine Appearance Urine pH (4.5-8.0) Ur Specific [place] (1.000-1.035) Urine Protein (Negative) Urine Glucose (UA) (Negative) g/dL Urine Ketones (NEGATIVE) Urine Occult Blood (Negative) Urine Nitrate (Negative) Urine Bilirubin (NEGATIVE) Ur Bilirubin Confirm (Negative) Urine Urobilinogen (0.2) E.U./dL Ur Leukocyte Esterase (NEGATIVE) Urine RBC (0-5/HPF) Urine WBC (0-5/HPF) Ur Squamous Epith Cells (0-5/HPF) Urine Bacteria (None) Hyaline Casts (None) Granular Casts (None) Ur Culture Indicated? Vol Urine Centrifuged Blood Type Antibody Screen MDM Narrative Medical decision making narrative: CC: Weakness, fall and shower hitting head on apixaban, 2 days of upper GI bleeding symptoms Complicating co-morbidities: Metastatic prostate cancer with palliative treatment, hypertension, anticoagulated secondary to paroxysmal atrial fibrillation Data collected from: patient, medics Social determinants of health that may influence the patients condition: Pulsed form from March of 2024 indicates DNR with treatments is appropriate Medical records reviewed: Please see HPI for details of the medical records. Discharge summary from September 16 of this year, he was admitted with recurrent abdominal pain and hypertension secondary to the pain., noted to have blood in his stool at that time, notes indicate palliative care group had recommended morphine and decreasing his marijuana use. Differential considered: Intracranial hemorrhage, upper GI bleeding with profound anemia, metastatic disease to the brain, acute coronary syndrome, other source of infection, sepsis Exam documented above, pertinent findings include: Chronically ill-appearing, confused, very dry mucous membranes with poor overall perfusion relatively hypotensive, significant epigastric pain without an acute surgical abdomen Lab Test results independently reviewed as above. Pertinent findings: CBC shows normal white count, slight drop in hemoglobin September 16 from 11 to 10.5. Platelets chronically low at 118 lactic elevated at 2.9, Chemistries show bilirubin slightly increased to 1.4 Troponin is undetectable Lipase is unremarkable Acute renal failure with creatinine at 9.4 and BUN 115, potassium at 4.7 Independently reviewed EKG: Sinus rhythm at a rate of 63, no acute ischemic change Imaging studies independently reviewed: CT scan of the head shows no bleeding or intracranial mass CT scan of the cervical spine shows no acute fractures Chest x-ray shows no significant pathology Treatments: Fluids, pantoprazole Re-evaluations: Discussion with patient and his partner. Formed of the acute renal failure and concerns in terms of morbidity and mortality. We will plan on hospital admission and he would like to do that. Will place Gill catheter and ultrasound his kidneys to see if there is any acute obstruction causing his acute renal failure or if this is dehydration secondary to presumed upper GI bleeding. He does not appear to be having any active upper GI bleeding, very much recognizes that he would not want to do dialysis of any type. Discussion: 69-year-old gentleman with metastatic prostate cancer comes in after a fall with presumed upper GI bleed and found to be in acute renal failure. Patient will be admitted to Dr. Ochoa, covering for patient's primary physician Dr. Vasques. Discharge Plan Departure Patient Disposition: Admitted As Inpatient Clinical Impression: Acute upper gastrointestinal bleeding, Malignant neoplasm of prostate metastatic to bone Acute renal failure Qualifiers: Acute renal failure type: unspecified Qualified Code(s): N17.9 - Acute kidney failure, unspecified Admit Date/Time: 12/05/24 13:31 Admit Provider: Odin Ochoa
--- NOTE | 2024-12-05 08:57 | DI.CT.S_ITS ---
PROCEDURE: CT HEAD/BRAIN WO CON INDICATIONS: fall, hit head, anticoagulated TECHNIQUE: Noncontrast 4.5 mm thick angled axial sections acquired from the foramen magnum to the vertex, with coronal and sagittal reformats. For radiation dose reduction, the following was used: automated exposure control, adjustment of mA and/or kV according to patient size. COMPARISON: [facility], CT, CT HEAD/BRAIN WO CON, 09/14/2024, 16:47. FINDINGS: Image quality: Diagnostic CSF spaces: Basal cisterns are patent. Lateral ventricles are symmetric. Volume: Vascular calcifications. Periventricular white matter disease is commonly seen with chronic microangiopathy. Volume loss is present. These findings are [id number] Brain: No intracranial hemorrhage. Valerio-white differentiation is grossly maintained. Craniofacial structures: No significant paranasal sinus opacity IMPRESSION: No acute intracranial pathology. Dictated by: Conor Lainez M.D. on 12/05/2024 at 9:10 Approved by: Conor Lainez M.D. on 12/05/2024 at 9:11
--- NOTE | 2024-12-05 08:58 | DI.RAD.S_ITS ---
PROCEDURE: XR CHEST 1V INDICATIONS: fell, weak, gi bleed TECHNIQUE: One view of the chest was acquired. COMPARISON: [facility], CR, XR CHEST 1V, 08/19/2024, 11:05. [facility], CR, XR CHEST 2V, 07/16/2024, 11:17. FINDINGS AND IMPRESSION: No consolidation or pleural effusion on this single view study. Normal heart size. Degenerative osseous changes. Dictated by: Conor Lainez M.D. on 12/05/2024 at 9:05 Approved by: Conor Lainez M.D. on 12/05/2024 at 9:05
--- NOTE | 2024-12-05 08:58 | DI.CT.S_ITS ---
PROCEDURE: CT CERVICAL SPINE WO CON INDICATIONS: fall, hit head TECHNIQUE: Noncontrast 3 mm thick sections acquired from the skull base to the T4 level. Sagittal and coronal reformats were then constructed. For radiation dose reduction, the following was used: automated exposure control, adjustment of mA and/or kV according to patient size. COMPARISON: None. FINDINGS: Image quality: Diagnostic Bones: Vertebral body heights are well maintained. There are [id number] degenerative changes including disc space height loss, arthropathy, and osteophytes. 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 Soft tissues: No apical pneumothorax. No pathologic prevertebral soft tissue swelling. Vascular calcifications are seen. IMPRESSION: No displaced fracture or traumatic subluxation. [id number]-[id number] spondylosis. If there is high concern for further derangement, consider MRI evaluation. Dictated by: Conor Lainez M.D. on 12/05/2024 at 9:12 Approved by: Conor Lainez M.D. on 12/05/2024 at 9:13
[2024-12-05 09:08] LABS: Add Manual Diff / Slide Review NO; Basophils Absolute Auto 0 /uL (0-100); Basophils Percent Auto 0.9 % (0-2); Eosinophils Absolute Auto 200 /uL (0-450); Eosinophils Percent Auto 4.7 % (2-4); Hematocrit 29.1 % (41-53); Hemoglobin 10.5 g/dL (13.5-17.5); Lymphocytes Absolute Auto 1100 /uL (1100-4500); Lymphocytes Percent Auto 22.4 % (25-40); Mean Corpuscular HGB Conc 36.1 % (30-36); Mean Corpuscular Hemoglobin 31.6 PG (26-34); Mean Corpuscular Volume 87.7 fL (80-100); Monocytes Absolute Auto 600 /uL (0-900); Monocytes Percent Auto 13.7 % (3-14); Neutrophils Absolute Auto 2800 /uL (1500-7000); Neutrophils Percent Auto 58.3 % (50-75); Platelet Count 118 X10^3/uL (150-400); Red Blood Cell Count 3.32 X10^6/uL (4.5-5.9); Red Cell Distribution Width 15.1 % (11.6-14.8); White Blood Cell Count 4.7 X10^3/uL (4.5-11.0)
[2024-12-05 09:17] LABS: Lactate (Lactic Acid) 2.9 mmol/L (0.7-2.1)
--- NOTE | 2024-12-05 09:17 | EKG_ITS ---
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
[2024-12-05 09:18] LABS: Alanine Aminotransferase 41 IU/L (<50); Albumin 4.3 g/dL (3.5-5.0); Albumin Globulin Ratio 1.4 (1.0-2.8); Alkaline Phosphatase 75 U/L (38-126); Aspartate Aminotransferase 51 IU/L (17-59); Bilirubin Total 1.4 mg/dL (0.2-1.3); Calcium 9.2 mg/dL (8.4-10.2); Carbon Dioxide 24 mmol/L (22-32); Chloride 89 mmol/L (98-107); Glucose 121 mg/dL (80-110); HEMOLYSIS < 15 (0-50); Lipase 75 U/L (23-300); Magnesium 2.3 mg/dL (1.6-2.3); Potassium 4.7 mmol/L (3.4-5.1); Sodium 131 mmol/L (137-145); Total Protein 7.3 g/dL (6.3-8.2)
[2024-12-05 09:29] LABS: Troponin I < 0.012 ng/mL (0.01-0.034)
[2024-12-05 09:34] LABS: BUN Creatinine Ratio 12.2 (6-22); Estimated Glomerular Filt Rate 6 mL/min (>60)
[2024-12-05 09:35] LABS: Blood Urea Nitrogen 115 mg/dL (9-20)
[2024-12-05] MEDS: SODIUM CHLORIDE 0.9% 1,000 ML 1000 ML IV ×3 (10:23→16:54)
[2024-12-05] MEDS: PANTOPRAZOLE 40 MG VIAL 80 MG IV (10:23)
[2024-12-05 10:37] LABS: Reflexed Lactate in 2 Hours Y
[2024-12-05 11:00] LABS: Appearance Urine UA CLEAR; Bilirubin Urine UA 1+ (NEGATIVE); Color Urine UA ORANGE; Glucose Urine UA NEGATIVE (Negative); Ketones Urine UA TRACE (NEGATIVE); Leukocyte Esterase Urine UA NEGATIVE (NEGATIVE); Nitrite Urine UA NEGATIVE (Negative); Occult Blood Urine UA TRACE-INTACT (Negative); Protein Urine UA 1+ (Negative); Specific Gravity Urine UA >=1.030 (1.000-1.035); pH Urine UA 5.5 (4.5-8.0)
[2024-12-05 11:02] LABS: Ictotest Urine Negative (Negative); Urine Volume 10mL (spun)
[2024-12-05 11:03] LABS: Bacteria Urine None Seen; RBC Urine None Seen (0-5/HPF); Squamous Epithelial Cell Urine 1-5 /HPF (0-5/HPF); WBC Urine None Seen (0-5/HPF)
[2024-12-05 11:04] LABS: Culture Indicated Urine Cult Not Indicated; Granular Casts Urine 0-1/LPF; Hyaline Casts Urine 1-5/LPF
[2024-12-05] MEDS: HYDROMORPHONE 1 MG INJ IV (11:24)
[2024-12-05 11:29] LABS: Lactate 2HR (Lactic Acid Rflx) 2.6 mmol/L (0.7-2.1)
--- NOTE | 2024-12-05 11:30 | DI.US.S_ITS ---
PROCEDURE: US RENAL COMPLETE INDICATIONS: ACUTE RENAL FAILURE TECHNIQUE: Real-time scanning was performed of the kidneys and bladder, with image documentation. COMPARISON: [facility], CT, CT ABDOMEN PELVIS W CON, 09/14/2024, 16:47. FINDINGS: Kidneys: Kidneys are normal in size. Right kidney measures 11.2 cm long; left kidney measures 10.9 cm long. Right renal cortical thickness is 1.2 cm; left renal cortical thickness is 1.5 cm. Renal cortical echotexture is normal. No hydronephrosis or nephrolithiasis. No suspicious solid mass lesions. Right inferior-lateral pole 1.3 x 1.0 x 1.0 cm simple cyst. Bladder: Decompressed with a Gill catheter. Limited evaluation. Miscellaneous: No free pelvic fluid. IMPRESSION: No hydronephrosis or obstructive urolithiasis. Dictated by: Nino Hartman M.D. on 12/05/2024 at 13:10 Approved by: Nino Hartman M.D. on 12/05/2024 at 13:12
[2024-12-05] MEDS: LIDOCAINE 2% (GLYDO) 6 ML GEL TOP (11:35)
[2024-12-05 12:41] LABS: Hematocrit 28.7 % (41-53); Hemoglobin 10.2 g/dL (13.5-17.5)
--- NOTE | 2024-12-05 12:52 | P.HP_ITS ---
History of Present Illness History of Present Illness Date Patient Seen: 12/05/24 Time Patient Seen: 11:30 Chief complaint: weakness, N\V Narrative: Mr. Marmolejo is a 69-year-old male primary care provider Dr. Vasques patient has a history of metastatic prostate cancer to the bone with cancer related pain and chronic opioid therapy coronary artery disease with paroxysmal atrial fibrillation hepatitis-C hypertension hyperlipidemia patient is a poor historian with confusion and unable to answer questions appropriately. Patient's caregiver is at bedside who provides the history. Patient has had continued episodes of weakness and abdominal pain. More consistent over the last 1 week. He is weakness has increased to the point where he had a fall in the bathroom at home. They have also noticed over the last 48 hours that he has had some dark- colored stool and some vomiting with dark material in it as well. There has been no apparent cough no complaints of chest pain no increased work of breathing or shortness a breath. There has been increasing difficulty with mental status and confusion. He has been working with Oncology with his metastatic prostate cancer. He is on chronic opioid therapy for cancer pain. He and his caregiver have moved more to palliative care type of treatment. And do not want aggressive interventions. On discussion does not want dialysis does not want resuscitation. In their contemplating hospice which he tried for before but did not qualify. As per his caregiver they would like to maximize his comfort. Without major surgical or life-saving interventions. [facility] Medical History Hypertensive urgency Colitis Hematuria Uncomplicated opioid dependence Generalized anxiety disorder Cannabis abuse Prostate cancer (~05/2019) Paroxysmal A-fib Transaminitis Kidney stones Diverticulosis of large intestine (03/31/12) Chronic hepatitis Coronary artery disease involving [place] coronary artery of [place] heart without angina pectoris (~2006) Essential hypertension Mixed hyperlipidemia Surgical History H/O heart artery stent (~2006) Hx of inguinal hernia surgery (~03/07/14) Hx of inguinal hernia surgery (~09/20/08) Status post laminectomy History of angioplasty (~12/2006) Social History marital status: unmarried,single number of children: 3 household members: caregiver lives independently: Yes caregiver/support person: No housing: house pets and animals: No education level: high school occupational status: other 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/jewish: None leisure activities: music, fishing and other Smoking Status: Never smoker Tobacco: How many years used: 56 Smokeless tobacco user: other quit status: has quit before second hand exposure: Yes (On farmland/Boat.) alcohol intake: former substance use type: does not use and marijuana eating out: rarely or never Type(s) of exercise: normal ROM and activity and additional Meds Home Medications and Allergies Home Medications Medication Instructions Recorded Confirmed Type promethazine 25 mg rectal 25 mg [place] Q4-6H PRN nausea and 11/18/20 12/05/24 Rx suppository vomiting #12 ea tamsulosin 0.4 mg capsule 0.4 mg PO DAILY 09/15/21 12/05/24 History atorvastatin 80 mg tablet 80 mg PO BEDTIME 07/30/22 12/05/24 History metoprolol succinate 100 mg 100 mg PO BID #180 tabs 09/27/23 12/05/24 Rx tablet,extended release 24 hr apixaban 2.5 mg tablet (Eliquis) 2.5 mg PO BID 03/29/24 12/05/24 History clopidogrel 75 mg tablet 75 mg PO DAILY 03/29/24 12/05/24 History nitroglycerin 0.4 mg sublingual 0.4 mg sublingual Q5-15M PRN Chest 03/29/24 12/05/24 History tablet Pain ondansetron HCl 4 mg tablet 4 mg PO Q8H PRN Nausea And Vomiting 03/29/24 12/05/24 History sennosides 8.6 mg tablet (senna) 8.6 mg PO DAILY constipation 03/29/24 12/05/24 History duloxetine 20 mg capsule,delayed 20 mg PO DAILY #90 caps 07/16/24 12/05/24 Rx release (Cymbalta) aspirin [Adult Low Dose Aspirin] 81 mg PO QAM 08/03/24 12/05/24 History morphine 10 mg/5 mL oral solution 10 mg (5 mL) PO Q6H PRN pain #100 08/07/24 12/05/24 Rx mL lisinopril 10 mg tablet 10 mg PO DAILY 08/19/24 12/05/24 History isosorbide mononitrate 30 mg 30 mg PO DAILY 08/21/24 12/05/24 History tablet,extended release 24 hr metformin 500 mg tablet 500 mg PO BID #180 tabs 09/17/24 12/05/24 Rx morphine 15 mg immediate release 7.5 - 15 mg (0.5 - 1 x 15 mg) PO 11/19/24 12/05/24 Rx tablet Q4H PRN chest pain/bone pain #120 tabs Allergies Allergy/AdvReac Type Severity Reaction Status Date / Time No Known Drug Allergies Allergy Verified 11/30/24 11:35 Exam Vital Signs (past 8 hours): - 12/05/24 08:57 12/05/24 09:16 12/05/24 09:23 Temperature 98.6 F Pulse Rate 100 H 65 Respiratory Rate 16 Blood Pressure 99/58 L 93/55 L Pulse Oximetry 97 99 Oxygen Delivery Method Room Air 12/05/24 09:23 12/05/24 09:25 12/05/24 09:25 Temperature Pulse Rate 66 64 Respiratory Rate 13 12 Blood Pressure 93/57 L Pulse Oximetry Oxygen Delivery Method 12/05/24 09:30 12/05/24 09:30 12/05/24 10:00 Temperature Pulse Rate 61 62 Respiratory Rate 12 24 Blood Pressure 94/61 Pulse Oximetry 98 99 Oxygen Delivery Method 12/05/24 10:00 12/05/24 10:30 12/05/24 10:30 Temperature Pulse Rate 63 Respiratory Rate 9 L Blood Pressure 88/56 L 99/62 Pulse Oximetry 98 Oxygen Delivery Method 12/05/24 11:00 12/05/24 11:19 12/05/24 11:19 Temperature Pulse Rate 61 62 Respiratory Rate 13 16 Blood Pressure 92/54 L Pulse Oximetry 100 100 Oxygen Delivery Method 12/05/24 11:30 12/05/24 11:30 12/05/24 12:00 Temperature Pulse Rate 63 66 Respiratory Rate 14 19 Blood Pressure 112/67 Pulse Oximetry 100 100 Oxygen Delivery Method 12/05/24 12:00 12/05/24 12:30 12/05/24 12:30 Temperature Pulse Rate 68 Respiratory Rate 16 Blood Pressure 135/81 102/60 Pulse Oximetry 100 Oxygen Delivery Method Room Air Oxygen Delivery Method Room Air Narrative Exam Narrative: General patient is arousable alert and is confused patient has signs of malnourishment with temporal wasting HEENT pupils are equal round and reactive oral mucosa is dry. Cardio patient is mildly tachycardic. There is a slight systolic murmur heard. Respiratory normal respiratory effort with no increased work of breathing. No wheezes or crackles heard on lung exam. Abdomen soft there is no distention no apparent liver spleen enlargement. Extremities warm dry perfused. Objective Labs 12/05/24 12:00 12/05/24 08:56 Labs: Laboratory Results - last 24 hr 12/05/24 12/05/24 12/05/24 08:56 10:53 10:56 WBC 4.7 RBC 3.32 L Hgb 10.5 L Hct 29.1 L MCV 87.7 MCH 31.6 MCHC 36.1 H RDW 15.1 H Plt Count 118 L Neut % (Auto) 58.3 Lymph % (Auto) 22.4 L [place] % (Auto) 13.7 Eos % (Auto) 4.7 H Baso % (Auto) 0.9 Neut # (Auto) 2800 Lymph # (Auto) 1100 [place] # (Auto) 600 Eos # (Auto) 200 Baso # (Auto) 0 Sodium 131 L Potassium 4.7 Chloride 89 L Carbon Dioxide 24 BUN 115 H* Creatinine 9.40 H* Estimated GFR 6 L BUN/Creatinine Ratio 12.2 Glucose 121 H Lactate 2.9 H 2.6 H Calcium 9.2 Magnesium 2.3 Total Bilirubin 1.4 H AST 51 ALT 41 Alkaline Phosphatase 75 Troponin I < 0.012 Total Protein 7.3 Albumin 4.3 Globulin 3.0 Albumin/Globulin Ratio 1.4 Lipase 75 Urine Color [place] Urine Appearance Clear Urine pH 5.5 Ur Specific [place] >=1.030 H Urine Protein 1+ H Urine Glucose (UA) Negative Urine Ketones Trace H Urine Occult Blood Trace-intact Urine Nitrate Negative Urine Bilirubin 1+ H Ur Bilirubin Confirm Negative Urine Urobilinogen 1.0 Ur Leukocyte Esterase Negative Urine RBC None seen Urine WBC None seen Ur Squamous Epith Cells 1-5 /hpf Urine Bacteria None seen Hyaline Casts 1-5/lpf Granular Casts 0-1/lpf Ur Culture Indicated? Cult not indicated Vol Urine Centrifuged 10ml (spun) Blood Type O Positive Antibody Screen Negative 12/05/24 12:00 WBC RBC Hgb 10.2 L Hct 28.7 L MCV MCH MCHC RDW Plt Count Neut % (Auto) Lymph % (Auto) [place] % (Auto) Eos % (Auto) Baso % (Auto) Neut # (Auto) Lymph # (Auto) [place] # (Auto) Eos # (Auto) Baso # (Auto) Sodium Potassium Chloride Carbon Dioxide BUN Creatinine Estimated GFR BUN/Creatinine Ratio Glucose Lactate Calcium Magnesium Total Bilirubin AST ALT Alkaline Phosphatase Troponin I Total Protein Albumin Globulin Albumin/Globulin Ratio Lipase Urine Color Urine Appearance Urine pH Ur Specific [place] Urine Protein Urine Glucose (UA) Urine Ketones Urine Occult Blood Urine Nitrate Urine Bilirubin Ur Bilirubin Confirm Urine Urobilinogen Ur Leukocyte Esterase Urine RBC Urine WBC Ur Squamous Epith Cells Urine Bacteria Hyaline Casts Granular Casts Ur Culture Indicated? Vol Urine Centrifuged Blood Type Antibody Screen Assessment & Plan Assessment and plan (1) ELADIO (acute kidney injury): Status: Acute Plan Acute kidney injury patient has normal kidney function. His creatinine currently is 9.4 and 115. Ultrasound shows no urinary obstruction bladder is decompressed with Gill catheter and no hydronephrosis. Unsure etiology of acute kidney injury patient is quite hypotensive and has been feeling weak. History of metastatic prostate cancer but ultrasound note shows no specific lesions or obstruction. At this point we will continue with aggressive hydration due to hypotension. He was given fluid boluses in the emergency department I will give him another 1 L normal saline bolus and maintenance IV fluids on top of this. His urine output has been good this afternoon. We will continue to monitor kidney function and electrolyte dysfunction closely. Patient does not want dialysis or renal intervention at this point. As per get caregiver. Patient is more towards comfort care and measures. Metabolic encephalopathy with confusion patient with acute confusion due to most likely uremia kidney failure hypotension and other medications. Anticipate this will be improving as patient is kidney function blood pressure and medications are adjusted. Will continue to monitor closely reorient provide assistance at bedside to help prevent agitation. Hypotension dehydration patient with significant hypotension and most likely dehydration. We will continue with the maintenance IV fluids with L foot fluid boluses monitor closely urine output and hydration status. Patient looks extremely dry with metastatic cachexia Gastrointestinal bleed. Patient with hematochezia and hematemesis. With dark blood. Will continue to monitor hemoglobin hematocrit guaiac stools for confirmation. Monitor closely his hemoglobin and hematocrit he would be amenable to a blood transfusion if needed. We will continue with IV pantoprazole. At this point further evaluation and workup with colonoscopy and EGD is not within the patient's wishes as per caregiver. We will continue to monitor this as mental status potentially could improve. And may adjust those wishes and continue discussion about further interventions with procedures to delineate further the diagnosis. Anemia acute blood loss probably gastrointestinal source. Not high volume. Continue to monitor hemoglobin and hematocrit and give pantoprazole Metastatic prostate cancer patient with metastatic prostate cancer prostate cancer related pain. He will be continued with his pain medication. This has been an ongoing difficult diagnosis which is compounding his current medical problems and has been more undergoing palliative treatment for care of this at home. Type 2 diabetes his metformin at home will be held he will be provided with insulin sliding scale coverage due to his renal dysfunction Coronary artery disease patient on a beta-ky statin aspirin Plavix. These medications will be held due to his gastrointestinal bleeding and hypotension. Atrial fibrillation patient's heart rate is controlled currently due to hypotension and bleeding his Eliquis and metoprolol will be held at this point will reinstitute when medically stable. Hyperlipidemia patient is on a statin this medication was continued. Hepatitis-C Malnutrition with cancer-related cachexia patient not eating with weight loss and signs of malnutrition moderate to severe. Dietary consultation will be evaluated when appropriate Code status DNR patient is per caregiver family requests more palliative comfort care. Will continue with IV fluid pain management but no aggressive or heroic measures. DVT prophylaxis SCDs Time-Based Coding :: [TOTAL MINUTES] spent with patient and on the chart (including review of chart, obtaining history, exam, reviewing outside data, placing orders, documenting exam and treatment plan, and counseling patient) on [DATE]. 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
[2024-12-05] MEDS: SODIUM CHLORIDE 0.9% 1,000 ML 150 ML IV ×2 (13:59→22:35)
[2024-12-05] MEDS: MORPHINE IR 15 MG TABLET PO ×2 (14:40→22:02)
[2024-12-05 19:17] LABS: Add Manual Diff / Slide Review NO; Basophils Absolute Auto 0 /uL (0-100); Basophils Percent Auto 0.5 % (0-2); Eosinophils Absolute Auto 200 /uL (0-450); Eosinophils Percent Auto 5.2 % (2-4); Hematocrit 26.9 % (41-53); Hemoglobin 9.5 g/dL (13.5-17.5); Lymphocytes Absolute Auto 1200 /uL (1100-4500); Lymphocytes Percent Auto 29.6 % (25-40); Mean Corpuscular HGB Conc 35.3 % (30-36); Mean Corpuscular Hemoglobin 31.3 PG (26-34); Mean Corpuscular Volume 88.8 fL (80-100); Monocytes Absolute Auto 600 /uL (0-900); Monocytes Percent Auto 14.7 % (3-14); Neutrophils Absolute Auto 2000 /uL (1500-7000); Platelet Count 93 X10^3/uL (150-400); Red Blood Cell Count 3.03 X10^6/uL (4.5-5.9); Red Cell Distribution Width 14.8 % (11.6-14.8); White Blood Cell Count 4.1 X10^3/uL (4.5-11.0)
[2024-12-05 19:31] LABS: BUN Creatinine Ratio 15.3 (6-22); Blood Urea Nitrogen 94 mg/dL (9-20); Calcium 8.3 mg/dL (8.4-10.2); Carbon Dioxide 22 mmol/L (22-32); Chloride 102 mmol/L (98-107); Estimated Glomerular Filt Rate 9 mL/min (>60); Glucose 95 mg/dL (80-110); HEMOLYSIS < 15 (0-50); Potassium 4.4 mmol/L (3.4-5.1); Sodium 135 mmol/L (137-145)
[2024-12-05] MEDS: ATORVASTATIN 20 MG TABLET 80 MG PO (22:00)
[2024-12-05] MEDS: ONDANSETRON 4 MG/2 ML INJ IV (22:20)
[2024-12-06] VITALS: BP 91/54; PULSE 75; RESP 20; TEMP 36.6; O2SAT 93
[2024-12-06] MEDS: SODIUM CHLORIDE 0.9% 500 ML 1000 ML IV (00:25)
[2024-12-06 06:00] VITALS: BP 124/80; PULSE 68; RESP 20; TEMP 36.7; O2SAT 99
[2024-12-06 06:24] LABS: Add Manual Diff / Slide Review NO; Basophils Absolute Auto 0 /uL (0-100); Basophils Percent Auto 0.5 % (0-2); Eosinophils Absolute Auto 100 /uL (0-450); Hematocrit 26.9 % (41-53); Hemoglobin 9.5 g/dL (13.5-17.5); Lymphocytes Absolute Auto 900 /uL (1100-4500); Lymphocytes Percent Auto 25.2 % (25-40); Mean Corpuscular HGB Conc 35.3 % (30-36); Mean Corpuscular Hemoglobin 31.2 PG (26-34); Mean Corpuscular Volume 88.5 fL (80-100); Monocytes Absolute Auto 500 /uL (0-900); Neutrophils Absolute Auto 2100 /uL (1500-7000); Neutrophils Percent Auto 57.3 % (50-75); Platelet Count 88 X10^3/uL (150-400); Red Blood Cell Count 3.04 X10^6/uL (4.5-5.9); Red Cell Distribution Width 14.7 % (11.6-14.8); White Blood Cell Count 3.7 X10^3/uL (4.5-11.0)
[2024-12-06 06:41] LABS: Alanine Aminotransferase 32 IU/L (<50); Albumin 3.3 g/dL (3.5-5.0); Albumin Globulin Ratio 1.2 (1.0-2.8); Alkaline Phosphatase 76 U/L (38-126); Aspartate Aminotransferase 46 IU/L (17-59); BUN Creatinine Ratio 18.2 (6-22); Bilirubin Total 0.7 mg/dL (0.2-1.3); Blood Urea Nitrogen 70 mg/dL (9-20); Calcium 8.5 mg/dL (8.4-10.2); Carbon Dioxide 22 mmol/L (22-32); Chloride 111 mmol/L (98-107); Estimated Glomerular Filt Rate 16 mL/min (>60); Globulin 2.7 g/dL (1.7-4.1); Glucose 115 mg/dL (80-110); HEMOLYSIS < 15 (0-50); Potassium 4.1 mmol/L (3.4-5.1); Sodium 140 mmol/L (137-145)
--- NOTE | 2024-12-06 07:48 | PM.PN.IH.1 ---
Subjective Subjective Date Patient Seen: 12/06/24 Time Patient Seen: 07:48 Interval history: Patient admitted yesterday with weakness and probable upper GI bleed, found to have significant acute kidney injury probably all prerenal as well as decreased hemoglobin hematocrit. Had previous guaiac-positive stool but had declined any intervention. He did agree to admission for hydration and minimal interventions to help improve his overall level of comfort. He has end-stage prostate cancer, and while not yet on hospice is certainly focused on comfort/palliative care primarily Patient also of course with type 2 diabetes coronary artery disease and chronic hepatitis due to hepatitis C infection (that has not been diagnose with cirrhosis as yet, last seen by Gastroenterology in 2020) This morning patient says he was just waking up. Maybe feels slightly better overall. Has not tried to have any breakfast or anything. No complaints or issues. Pleased to hear that his numbers all look to be better Exam Vital Signs (past 8 hours): - 12/06/24 00:00 12/06/24 06:00 Temperature 97.9 F 98.1 F Pulse Rate 75 68 Respiratory Rate 20 20 Blood Pressure 91/54 L 124/80 Pulse Oximetry 93 99 Oxygen Flow Rate 0 0 Oxygen Delivery Method Room Air Oxygen Flow Rate 0 Objective Labs 12/06/24 05:45 12/06/24 05:45 Labs: Laboratory Results - last 24 hr 12/05/24 12/05/24 12/05/24 08:56 10:53 10:56 WBC 4.7 RBC 3.32 L Hgb 10.5 L Hct 29.1 L MCV 87.7 MCH 31.6 MCHC 36.1 H RDW 15.1 H Plt Count 118 L Neut % (Auto) 58.3 Lymph % (Auto) 22.4 L [place] % (Auto) 13.7 Eos % (Auto) 4.7 H Baso % (Auto) 0.9 Neut # (Auto) 2800 Lymph # (Auto) 1100 [place] # (Auto) 600 Eos # (Auto) 200 Baso # (Auto) 0 Sodium 131 L Potassium 4.7 Chloride 89 L Carbon Dioxide 24 BUN 115 H* Creatinine 9.40 H* Estimated GFR 6 L BUN/Creatinine Ratio 12.2 Glucose 121 H Lactate 2.9 H 2.6 H Calcium 9.2 Magnesium 2.3 Total Bilirubin 1.4 H AST 51 ALT 41 Alkaline Phosphatase 75 Troponin I < 0.012 Total Protein 7.3 Albumin 4.3 Globulin 3.0 Albumin/Globulin Ratio 1.4 Lipase 75 Urine Color [place] Urine Appearance Clear Urine pH 5.5 Ur Specific [place] >=1.030 H Urine Protein 1+ H Urine Glucose (UA) Negative Urine Ketones Trace H Urine Occult Blood Trace-intact Urine Nitrate Negative Urine Bilirubin 1+ H Ur Bilirubin Confirm Negative Urine Urobilinogen 1.0 Ur Leukocyte Esterase Negative Urine RBC None seen Urine WBC None seen Ur Squamous Epith Cells 1-5 /hpf Urine Bacteria None seen Hyaline Casts 1-5/lpf Granular Casts 0-1/lpf Ur Culture Indicated? Cult not indicated Vol Urine Centrifuged 10ml (spun) Blood Type O Positive Antibody Screen Negative 12/05/24 12/05/24 12/06/24 12:00 19:07 05:45 WBC 4.1 L 3.7 L RBC 3.03 L 3.04 L Hgb 10.2 L 9.5 L 9.5 L Hct 28.7 L 26.9 L 26.9 L MCV 88.8 88.5 MCH 31.3 31.2 MCHC 35.3 35.3 RDW 14.8 14.7 Plt Count 93 L 88 L Neut % (Auto) 50.0 57.3 Lymph % (Auto) 29.6 25.2 [place] % (Auto) 14.7 H 13.0 Eos % (Auto) 5.2 H 4.0 Baso % (Auto) 0.5 0.5 Neut # (Auto) 2000 2100 Lymph # (Auto) 1200 900 L [place] # (Auto) 600 500 Eos # (Auto) 200 100 Baso # (Auto) 0 0 Sodium 135 L 140 Potassium 4.4 4.1 Chloride 102 111 H Carbon Dioxide 22 22 BUN 94 H 70 H Creatinine 6.16 H 3.85 H Estimated GFR 9 L 16 L BUN/Creatinine Ratio 15.3 18.2 Glucose 95 115 H Lactate Calcium 8.3 L 8.5 Magnesium Total Bilirubin 0.7 AST 46 ALT 32 Alkaline Phosphatase 76 Troponin I Total Protein 6.0 L Albumin 3.3 L Globulin 2.7 Albumin/Globulin Ratio 1.2 Lipase Urine Color Urine Appearance Urine pH Ur Specific [place] Urine Protein Urine Glucose (UA) Urine Ketones Urine Occult Blood Urine Nitrate Urine Bilirubin Ur Bilirubin Confirm Urine Urobilinogen Ur Leukocyte Esterase Urine RBC Urine WBC Ur Squamous Epith Cells Urine Bacteria Hyaline Casts Granular Casts Ur Culture Indicated? Vol Urine Centrifuged Blood Type Antibody Screen [facility] Medical History Hypertensive urgency Colitis Hematuria Uncomplicated opioid dependence Generalized anxiety disorder Cannabis abuse Prostate cancer (~05/2019) Paroxysmal A-fib Transaminitis Kidney stones Diverticulosis of large intestine (03/31/12) Chronic hepatitis Coronary artery disease involving [place] coronary artery of [place] heart without angina pectoris (~2006) Essential hypertension Mixed hyperlipidemia Surgical History H/O heart artery stent (~2006) Hx of inguinal hernia surgery (~03/07/14) Hx of inguinal hernia surgery (~09/20/08) Status post laminectomy History of angioplasty (~12/2006) Social History marital status: unmarried,single number of children: 3 household members: caregiver lives independently: Yes caregiver/support person: No housing: house pets and animals: No education level: high school occupational status: other 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 Upper GI bleed-unknown whether patient has esophageal varices or not. He declines any intervention including EGD. Would not want specific treatment even if this were present. Therefore continue with IV proton pump inhibitor for now and monitor his numbers. Over the last 24 hours he hemoglobin hematocrit have been relatively stable in so indication for upper endoscopy I think is somewhat more limited. Would consider transfusion for comfort and given his known coronary disease (which he was also not felt to be amenable to any further interventions). Continues to not really want to have any invasive procedures and he is even hesitant about blood transfusion 2. Acute renal failure/acute kidney injury-much improved as we continue to rehydrate him. Quite surprising how in a relatively short time he managed to get such a degree of kidney injury, presumably only by volume depletion/dehydration. Patient not chronically on diuretics or anything like that 3. Diabetes-adequate control for now. Continue current insulin 4. Paroxysmal atrial fibrillation other tachyarrhythmias-I think patient would benefit from being back on low-dose metoprolol now the blood pressure somewhat better. I have ordered that. Likely will need to be off Eliquis for an extended time perhaps permanently 5. Hypertension-patient off most of his meds as he presented relatively hypotensive and with his acute kidney injury. Will monitor his numbers over time may need to returned to some of his chronic medications 6. VTE prophylaxis-patient chronically on Eliquis for his atrial fibrillation but that is being held because of his severe acute kidney injury as well as the upper GI bleed. Given the bleeding not a candidate for any chemo prophylaxis but continue with mechanical prophylaxis with SCDs as tolerated by patient 7. Code status-patient clearly does not want to be resuscitated in the event of a cardiac or respiratory arrest. This has been well documented previously and confirmed with him this morning. Therefore I have changed his code status to DO NOT RESUSCITATE Time-Based Coding :: [TOTAL MINUTES] spent with patient and on the chart (including review of chart, obtaining history, exam, reviewing outside data, placing orders, documenting exam and treatment plan, and counseling patient) on [DATE]. 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
[2024-12-06] MEDS: DULOXETINE 20 MG CAPSULE PO (08:50)
[2024-12-06] MEDS: METOPROLOL IR 25 MG TABLET 12.5 MG PO ×2 (08:50→23:33)
[2024-12-06] MEDS: MORPHINE IR 15 MG TABLET PO ×3 (08:50→23:33)
[2024-12-06] MEDS: TAMSULOSIN 0.4 MG CAPSULE PO (08:50)
[2024-12-06] MEDS: ISOSORBIDE MONONITRATE ER 30 MG TABLET PO (08:51)
[2024-12-06] MEDS: PANTOPRAZOLE 40 MG VIAL IV (08:51)
--- NOTE | 2024-12-06 09:06 | CM.DANOTE ---
Inital DCP Assessment Visit Note Reviewed EMR and team rounds for status updates. Met with pt at bedside to introduce self and role, pt was found to be alert/somewhat oriented, however still demonstrating altered mental status. He became tearful when this PHYSICIAN VICE PRESIDENT asked him who helps him at home, and expressed several times gratitude for the care and reassurance that we were providing for him. Pt lives alone, modified independently with the assistance of a cg that comes everyday for 4-hours, and a close neighbor who also assists with his transportation, ADL's, and care as needed. Payor: Medicare PCP: Dr. Vasques Pt is a 69 year-old M who presented to the ED yesterday via EMS with c/o 2-days vomiting black liquid, having black stools, and worsening overall weakness. He also shared having fell in the shower yesterday and hit his head. He was also found to be dehydrated and had mod. altered mental status. Pt is currently under the care of Oncology and OP Palliative Care for metastatic prostate cancer to the bone, and expresses wanting comfort focused care only. His labs indicated acute renal failure, kidney ultrasound is pending, although he does not want dialysis if it's indicated. DCP will continue to monitor for final d/c needs and assistance. Discharge Planning/Care Management CM Discharge Assessment Start: 12/06/24 09:02 Freq: Status: Active Protocol: Document 12/06/24 09:03 DPL (Rec: 12/06/24 09:06 DPL [id number]) Discharge Planning Assessment Assigned Public Health Engineer JAYME Negron Advance Directives? Yes: POLST Advance Directives on File No History Provided By Patient,Medical Record Has Patient been admitted in last 30 No days? Prior Living Arrangements House Household Members caregiver Type of transporation used prior to Relies on Others admit Independent with ADL's No: modified independent with a walker Needs Assistance With Meal Prep,Managing Medications ,Home Chores / Shopping Caregiver for Another No Comment OP Oncology tx, OP Palliative Care DME Already Rented / Owned Bath Bench,Elevated Toilet Seat,FWW / Walker,Cane Comment Pending final therapy evals/ recs. Comment Patient's friends Peg and Lisandra assist him throughout the week with meds, ADLs, transportation Discharge Plan Home Transportation Arrangement Patient reports that Lisandra can pick him up at time of d/c . Additional Comment Pending If patient plan is home with home health No : Has signed face to face form been completed? Whiteboard Updated in Patient Room with Yes name and ext. # of Public Health Engineer Review Status In Process Please Provide Date Initial DC 12/06/24 Assessment Was Performed
[2024-12-06] MEDS: HYDROMORPHONE 1 MG INJ IV ×4 (09:53→21:58)
[2024-12-06] MEDS: SODIUM CHLORIDE 0.9% 1,000 ML 150 ML IV ×2 (11:35→18:32)
[2024-12-06 11:54] VITALS: BMI 18.1
[2024-12-06] MEDS: INSULIN LISPRO 100 UNIT/ML 3ML VIAL SUBCUT (11:56)
[2024-12-06 16:32] VITALS: BP 92/56; PULSE 69; RESP 14; TEMP 36.6; O2SAT 97
[2024-12-06] MEDS: SENNOSIDES 8.6 MG TABLET 17.2 MG PO (21:55)
[2024-12-06] MEDS: ATORVASTATIN 20 MG TABLET 80 MG PO (21:55)
[2024-12-06 23:20] VITALS: BP 116/80; PULSE 60; O2SAT 96
[2024-12-06 23:37] VITALS: BP 119/78; PULSE 61; RESP 16; TEMP 36.7; O2SAT 98
[2024-12-07] MEDS: SODIUM CHLORIDE 0.9% 1,000 ML 150 ML IV ×3 (01:59→16:09)
[2024-12-07] MEDS: HYDROMORPHONE 1 MG INJ IV (02:53)
[2024-12-07] MEDS: MORPHINE IR 15 MG TABLET PO ×5 (05:59→22:38)
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
[2024-12-07 06:56] LABS: Hematocrit 26.1 % (41-53); Hemoglobin 9.2 g/dL (13.5-17.5)
[2024-12-07 07:13] LABS: BUN Creatinine Ratio 22.6 (6-22); Blood Urea Nitrogen 36 mg/dL (9-20); Calcium 8.3 mg/dL (8.4-10.2); Carbon Dioxide 22 mmol/L (22-32); Chloride 110 mmol/L (98-107); Estimated Glomerular Filt Rate 47 mL/min (>60); Glucose 154 mg/dL (80-110); HEMOLYSIS < 15 (0-50); Potassium 3.8 mmol/L (3.4-5.1); Sodium 138 mmol/L (137-145)
[2024-12-07] MEDS: INSULIN LISPRO 100 UNIT/ML 3ML VIAL SUBCUT ×2 (09:19→14:06)
[2024-12-07] MEDS: TAMSULOSIN 0.4 MG CAPSULE PO (09:23)
[2024-12-07] MEDS: PANTOPRAZOLE 40 MG VIAL IV (09:26)
[2024-12-07] MEDS: DULOXETINE 20 MG CAPSULE PO (09:26)
[2024-12-07] MEDS: METOPROLOL IR 25 MG TABLET 12.5 MG PO ×3 (09:26→23:24)
[2024-12-07] MEDS: ISOSORBIDE MONONITRATE ER 30 MG TABLET PO (09:26)
--- NOTE | 2024-12-07 15:05 | CM.DPNOTE ---
DCP Continued: Reviewed EMR and team rounds for pt?s medical status. DCP sent referral to [facility] via fax for informational call with Hospice team. Plan: Anticipating hospice plan of care with local son and DPOA. CM Team will continue to follow for coordination of discharge plans. NICO Gillette
[2024-12-07] MEDS: ONDANSETRON 4 MG/2 ML INJ IV (16:28)
[2024-12-07 20:17] VITALS: BP 125/78; PULSE 63; RESP 16; TEMP 36.7; O2SAT 95
[2024-12-07] MEDS: ATORVASTATIN 20 MG TABLET 80 MG PO (21:14)
[2024-12-07] MEDS: SENNOSIDES 8.6 MG TABLET 17.2 MG PO (21:14)
[2024-12-08] MEDS: SODIUM CHLORIDE 0.9% 1,000 ML 100 ML IV ×2 (03:33→13:15)
[2024-12-08] MEDS: MORPHINE IR 15 MG TABLET PO ×5 (03:38→23:09)
[2024-12-08 03:54] VITALS: BP 140/77; PULSE 66; RESP 16; TEMP 37.1; O2SAT 98
[2024-12-08] MEDS: PANTOPRAZOLE DR 40 MG TABLET PO ×2 (06:30→20:18)
[2024-12-08 08:00] VITALS: BP 164/108; PULSE 65; RESP 17; TEMP 36.8; O2SAT 97
[2024-12-08] MEDS: TAMSULOSIN 0.4 MG CAPSULE PO (08:43)
[2024-12-08] MEDS: ISOSORBIDE MONONITRATE ER 30 MG TABLET PO (08:43)
[2024-12-08] MEDS: DULOXETINE 20 MG CAPSULE PO (08:43)
[2024-12-08] MEDS: METOPROLOL IR 25 MG TABLET 12.5 MG PO ×3 (08:43→22:59)
--- NOTE | 2024-12-08 10:40 | PT-IP ANOTE ---
Pt discussed in rounds. Hospice referral has been placed. Will hold Physical Therapy evaluation today to determine if skilled Physical Therapy is needed at this time.
--- NOTE | 2024-12-08 11:02 | P.PN_ITS ---
Subjective <Odin Plascencia MD - Last Filed: 12/08/24 18:09> Subjective Date Patient Seen: 12/08/24 Time Patient Seen: 11:23 Interval history: Resting comfortably in bed. Denies any significant discomfort beyond his baseline chronic pain related to metastatic cancer. Exam <Odin Ochoa MD - Last Filed: 12/07/24 11:24> Vital Signs (past 8 hours): Oxygen Delivery Method Room Air Oxygen Flow Rate 0 <Odin Plascencia MD - Last Filed: 12/08/24 18:09> Narrative Exam Narrative: General: Pleasant, NAD HEENT: NC/AT, EOMI, moist membranes CV: RRR, normal S1-S2, no m/g/r Resp: CTAB, comfortable WOB Abd: Soft, mild epigastric TTP, +BS Neuro: A&O x3, moves all extremities, no focal deficits Objective <Odin Ochoa MD - Last Filed: 12/07/24 11:24> Labs 12/07/24 06:10 12/07/24 06:10 Labs: Laboratory Results - last 24 hr 12/07/24 06:10 Hgb 9.2 L Hct 26.1 L Sodium 138 Potassium 3.8 Chloride 110 H Carbon Dioxide 22 BUN 36 H Creatinine 1.59 H Estimated GFR 47 L BUN/Creatinine Ratio 22.6 H Glucose 154 H Calcium 8.3 L PFSH <Odin Ochoa MD - Last Filed: 12/07/24 11:24> Medical History Hypertensive urgency Colitis Hematuria Uncomplicated opioid dependence Generalized anxiety disorder Cannabis abuse Prostate cancer (~05/2019) Paroxysmal A-fib Transaminitis Kidney stones Diverticulosis of large intestine (03/31/12) Chronic hepatitis Coronary artery disease involving deering coronary artery of deering heart without angina pectoris (~2006) Essential hypertension Mixed hyperlipidemia Surgical History H/O heart artery stent (~2006) Hx of inguinal hernia surgery (~03/07/14) Hx of inguinal hernia surgery (~09/20/08) Status post laminectomy History of angioplasty (~12/2006) Social History marital status: unmarried,single number of children: 3 household members: caregiver lives independently: Yes caregiver/support person: No housing: house pets and animals: No education level: high school occupational status: other 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/episcopal: None leisure activities: music, fishing and other Smoking Status: Never smoker Tobacco: How many years used: 56 Smokeless tobacco user: other quit status: has quit before second hand exposure: Yes (On farm[place]oat.) alcohol intake: former substance use type: does not use and marijuana eating out: rarely or never Type(s) of exercise: normal ROM and activity and additional Assessment & Plan <Odin Ochoa MD - Last Filed: 12/07/24 11:24> Assessment and plan (1) Acute upper gastrointestinal bleeding: Status: Acute (2) ELADIO (acute kidney injury): Status: Acute (3) Acute renal failure: Qualifiers: Acute renal failure type: unspecified Qualified Code(s): N17.9 - Acute kidney failure, unspecified Status: Acute (4) Diabetes type 2, controlled: Qualifiers: Diabetes mellitus detention insulin use: without detention use Diabetes mellitus complication status: with unspecified complications Qualified Code(s): E11.8 - Type 2 diabetes mellitus with unspecified complications Status: Chronic (5) Paroxysmal A-fib: Status: Chronic (6) Essential hypertension: Status: Chronic (7) Malignant neoplasm of prostate metastatic to bone: Status: Acute (8) Uncomplicated opioid dependence: Status: Chronic Time-Based Coding :: [TOTAL MINUTES] spent with patient and on the chart (including review of chart, obtaining history, exam, reviewing outside data, placing orders, documenting exam and treatment plan, and counseling patient) on [DATE]. <Odin Plascencia MD - Last Filed: 12/08/24 18:09> Assessment and plan (1) Acute upper gastrointestinal bleeding: (2) ELADIO (acute kidney injury): (3) Acute renal failure: (4) Diabetes type 2, controlled: (5) Paroxysmal A-fib: (6) Essential hypertension: (7) Malignant neoplasm of prostate metastatic to bone: (8) Uncomplicated opioid dependence: Plan 69yo male admitted for UGIB and acute renal failure. Assessment & Plan narrative: 1. Upper GI bleed. Slow downward trend but declines intervention, do not anticipate scope at this time. - Patnoprazole 40 mg PO BID 2. Acute renal failure/acute kidney injury. Normalized today s/p fluid resuscitation. - Will stop IV fluids and continue to monitor 3. Diabetes. Adequate control for now. - Continue current insulin 4. Paroxysmal atrial fibrillation - Continue with low-dose metoprolol 5. Hypertension. Patient off most of his meds as he presented relatively hypotensive and with his acute kidney injury. BP starting to rise today. - Restart home lisinopril 10 mg 6. Chronic pain. Patient with significant chronic pain from a variety of issues. He does have this end-stage prostate cancer as well as having this new acute right hip contusion. 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 - Continue immediate release morphine to avoid extended release narcotic tablets, which can contribute to overuse/abuse Time-Based Coding :: 30 minutes spent with patient and on the chart (including review of chart, obtaining history, exam, reviewing outside data, placing orders, documenting exam and treatment plan, and counseling patient) on 12/08/2024. Quality <Odin Ochoa MD - Last Filed: 12/07/24 11:24> VTE Deep Vein Thrombosis/Pulmonary Embolism Present on Admission: No IH PROFEE <Odin Plascencia MD - Last Filed: 12/08/24 18:09> Property Utilization Manager Document charge(s): Yes Charge Codes Subsequent inpatient/observation care: [id number]
[2024-12-08] MEDS: INSULIN LISPRO 100 UNIT/ML 3ML VIAL SUBCUT (12:55)
--- NOTE | 2024-12-08 16:21 | CM.DPC ---
I spoke to this patient today to confirm he approves of care starting with [facility]. Patient agreed. I called Hospice and they will call the patient's DPOA/ Caregiver tomorrow at 10:00 AM for an information phone visit with the patient and caregiver. If all in agreement patient may be able to start hospice care on Tuesday12/12/24
[2024-12-08 17:15] LABS: Hematocrit 26.6 % (41-53); Hemoglobin 9.3 g/dL (13.5-17.5)
[2024-12-08 17:30] LABS: BUN Creatinine Ratio 12.8 (6-22); Blood Urea Nitrogen 15 mg/dL (9-20); Calcium 8.3 mg/dL (8.4-10.2); Carbon Dioxide 23 mmol/L (22-32); Chloride 112 mmol/L (98-107); Estimated Glomerular Filt Rate > 60 mL/min (>60); Glucose 107 mg/dL (80-110); HEMOLYSIS < 15 (0-50); Potassium 4.1 mmol/L (3.4-5.1); Sodium 141 mmol/L (137-145)
[2024-12-08 20:00] VITALS: BP 119/82; PULSE 69; RESP 18; TEMP 36.6; O2SAT 97
[2024-12-08] MEDS: SENNOSIDES 8.6 MG TABLET 17.2 MG PO (20:18)
[2024-12-08] MEDS: ATORVASTATIN 20 MG TABLET 80 MG PO (20:18)
[2024-12-08 22:55] VITALS: BP 121/79; PULSE 70; O2SAT 96
[2024-12-09] MEDS: MORPHINE IR 15 MG TABLET PO ×3 (03:42→12:10)
[2024-12-09 03:50] VITALS: BP 147/98; PULSE 80; RESP 18; O2SAT 97
[2024-12-09 04:30] VITALS: BP 131/92; PULSE 99; RESP 16; TEMP 37.5; O2SAT 96
[2024-12-09 06:23] LABS: Hemoglobin 10.1 g/dL (13.5-17.5)
[2024-12-09 06:31] LABS: BUN Creatinine Ratio 11.4 (6-22); Blood Urea Nitrogen 13 mg/dL (9-20); Calcium 8.4 mg/dL (8.4-10.2); Carbon Dioxide 23 mmol/L (22-32); Chloride 110 mmol/L (98-107); Estimated Glomerular Filt Rate > 60 mL/min (>60); Glucose 110 mg/dL (80-110); HEMOLYSIS < 15 (0-50); Potassium 3.4 mmol/L (3.4-5.1); Sodium 140 mmol/L (137-145)
[2024-12-09] MEDS: PANTOPRAZOLE DR 40 MG TABLET PO (06:32)
[2024-12-09] MEDS: METOPROLOL IR 25 MG TABLET 12.5 MG PO (07:58)
[2024-12-09] MEDS: TAMSULOSIN 0.4 MG CAPSULE PO (07:59)
[2024-12-09] MEDS: DULOXETINE 20 MG CAPSULE PO (07:59)
[2024-12-09] MEDS: ISOSORBIDE MONONITRATE ER 30 MG TABLET PO (07:59)
[2024-12-09 08:00] VITALS: BP 160/98; PULSE 70; RESP 16; TEMP 36.7; O2SAT 98
[2024-12-09 08:08] VITALS: BP 160/98
[2024-12-09] MEDS: lisinopriL 10 MG TABLET PO (08:08)
[2024-12-09] MEDS: POTASSIUM CHLORIDE 20 MEQ TAB 40 MEQ PO (08:39)
--- NOTE | 2024-12-09 09:38 | CM.DPNOTE ---
DCP Note SALON/SPA MANAGER reviewed EMR per Sita at [facility], phone info visit planned for 10am today. no DME needed, can start care tomorrow 12/10 at 2pm in the home if pt is stable/decides to start hospice services. no PN note from Tuesday, 12/08, CM will follow up with provider on SUSAN today. CM team will continue to follow closely for DCP coordination. JAYME Andrade
--- NOTE | 2024-12-09 09:41 | PT-IP ANOTE ---
Per notes, pt transitioning to hospice. Will d/c acute PT.
[2024-12-09] MEDS: INSULIN LISPRO 100 UNIT/ML 3ML VIAL SUBCUT (12:10)
[2024-12-09] MEDS: ONDANSETRON 4 MG/2 ML INJ IV (12:16)
--- NOTE | 2024-12-09 13:06 | P.DS_ITS ---
History of Present Illness History of Present Illness Date Patient Seen: 12/09/24 Time Patient Seen: 12:00 Chief complaint: weakness, N\V Narrative: 69-year-old male primary care provider Dr. Vasques patient has a history of metastatic prostate cancer to the bone with cancer related pain and chronic opioid therapy, coronary artery disease with paroxysmal atrial fibrillation, hepatitis-C, hypertension, hyperlipidemia. Patient is a poor historian with confusion and unable to answer questions appropriately. Patient's caregiver is at bedside who provides the history. Patient has had continued episodes of weakness and abdominal pain. More consistent over the last 1 week. He is weakness has increased to the point where he had a fall in the bathroom at home. They have also noticed over the last 48 hours that he has had some dark-colored stool and some vomiting with dark material in it as well. There has been no apparent cough no complaints of chest pain no increased work of breathing or shortness a breath. There has been increasing difficulty with mental status and confusion. He has been working with Oncology with his metastatic prostate cancer. He is on chronic opioid therapy for cancer pain. He and his caregiver have moved more to palliative care type of treatment. And do not want aggressive interventions. On discussion does not want dialysis does not want resuscitation. They are contemplating hospice which he tried for before but did not qualify. As per his caregiver they would like to maximize his comfort without major surgical or life-saving interventions. Discharge Providers Provider Date of admission: 12/05/24 13:31 Discharge Date: 12/09/24 Primary care physician: Khang Vasques MD Consults: 12/05/24 13:30 Consult to Discharge Planning Routine Comment: 12/07/24 08:54 Consult to Physical Therapy Evaluate & Treat Comment: Physician Instructions: Evaluate and Treat Discharge provider: Odin Plascencia MD Summary Hospital Course Discharge Diagnosis: #UGIB #ELADIO #metabolic encephalopathy #anemia #diabetes #PAF #hypertension #CAD #metastatic prostate cancer #chronic pain Hospital Course: Admitted for acute renal failure with severe weakness and metabolic encephalopathy. Declined EGD to evaluate suspected UGIB due to terminal dx of metastatic prostate cancer, with preference to focus on comfort/minimizing pain. Renal function and mental status improved with aggressive diuresis, with normalization of creatinine by time of discharge. PPI therapy initiated for suspected gastritis/UGIB, with hemoglobin remaining stable. Patient and caregiver currently deciding whether to initiate home hospice services after discharge. Status at Discharge Cognitive/behavioral status at discharge: oriented Overall status at discharge: patient is progressing back to baseline Time Spent with Patient Time spent: Less than 30 minutes Exam Vital Signs (past 8 hours): - 12/09/24 08:00 12/09/24 08:08 Temperature 98.1 F Pulse Rate 70 Respiratory Rate 16 Blood Pressure 160/98 H 160/98 H Pulse Oximetry 98 Oxygen Flow Rate 0 Oxygen Delivery Method Room Air Oxygen Flow Rate 0 Narrative Exam Narrative: General: Pleasant, thin, NAD HEENT: NC/AT, EOMI, moist membranes CV: RRR, normal S1-S2, no m/g/r Resp: CTAB, comfortable WOB Abd: Soft, mild epigastric TTP, +BS Neuro: A&O x3, moves all extremities, no focal deficits Objective Labs 12/09/24 05:50 12/09/24 05:50 Labs: Laboratory Results - last 24 hr 12/08/24 12/09/24 17:05 05:50 Hgb 9.3 L 10.1 L Hct 26.6 L 28.0 L Sodium 141 140 Potassium 4.1 3.4 Chloride 112 H 110 H Carbon Dioxide 23 23 BUN 15 13 Creatinine 1.17 1.14 Estimated GFR > 60 > 60 BUN/Creatinine Ratio 12.8 11.4 Glucose 107 110 Calcium 8.3 L 8.4 PFSH Medical History Hypertensive urgency Colitis Hematuria Uncomplicated opioid dependence Generalized anxiety disorder Cannabis abuse Prostate cancer (~05/2019) Paroxysmal A-fib Transaminitis Kidney stones Diverticulosis of large intestine (03/31/12) Chronic hepatitis Coronary artery disease involving ramona coronary artery of ramona heart without angina pectoris (~2006) Essential hypertension Mixed hyperlipidemia Surgical History H/O heart artery stent (~2006) Hx of inguinal hernia surgery (~03/07/14) Hx of inguinal hernia surgery (~09/20/08) Status post laminectomy History of angioplasty (~12/2006) Social History marital status: unmarried,single number of children: 3 household members: caregiver lives independently: Yes caregiver/support person: No housing: house pets and animals: No education level: high school occupational status: other 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 Plan of Treatment: 1. Upper GI bleed: Slow downward trend of H/H but declines interventions. Stabilized/slightly improved at time of discharge. - Continue pantoprazole 40 mg PO BID 2. Acute renal failure/acute kidney injury: Normalized s/p fluid resuscitation, now back at baseline. 3. Diabetes: Adequate with ISS during admission. - Continue home metformin 4. Paroxysmal atrial fibrillation - Resume home metoprolol, apixaban - Consider stopping aspirin given UGIB, limited life expectancy 5. Hypertension: Patient initially off most of his meds as he presented relatively hypotensive and with his acute kidney injury. BP normalized/elevated toward end of admission. - Resume home lisinopril 6. CAD - Resume home isosorbide mononitrate, metoprolol 7. Metastatic prostate cancer with chronic pain: Patient with significant chronic pain from a variety of issues. He does have this end-stage prostate cancer as well as having this new acute right hip contusion. - Continue home regimen with duloxetine, oral morphine as needed - Encourage aggressive bowel regimen to minimize constipation and subsequent nausea due to slow gastric transit - Home hospice phone intake visit scheduled for tomorrow if pt decides to initiate. Discharge Plan Discharge Plan Patient Disposition: Home Discharge orders & Medications Prescriptions: New pantoprazole 40 mg tablet,delayed release (DR/EC) 40 mg PO BID Qty: 60 2RF Continued metoprolol succinate 100 mg tablet extended release 24 hr 100 mg PO BID Qty: 180 3RF duloxetine [Cymbalta] 20 mg capsule,delayed release(DR/EC) 20 mg PO DAILY Qty: 90 3RF morphine 10 mg/5 mL solution 10 mg PO Q6H PRN (Reason: pain) Qty: 100 0RF metformin 500 mg tablet 500 mg PO BID Qty: 180 3RF morphine 15 mg tablet 7.5 - 15 mg PO Q4H MDD 60mg PRN (Reason: chest pain/bone pain) Qty: 120 0RF atorvastatin 80 mg tablet 80 mg PO BEDTIME Eliquis 2.5 mg tablet 2.5 mg PO BID clopidogrel 75 mg tablet 75 mg PO DAILY sennosides [senna] 8.6 mg tablet 8.6 mg PO DAILY nitroglycerin 0.4 mg tablet, sublingual 0.4 mg sublingual Q5-15M PRN (Reason: Chest Pain) ondansetron HCl 4 mg tablet 4 mg PO Q8H PRN (Reason: Nausea And Vomiting) aspirin [Adult Low Dose Aspirin] 81 mg PO QAM isosorbide mononitrate 30 mg tablet extended release 24 hr 30 mg PO DAILY Patient Comments: Per Significant other Lisandra. tamsulosin 0.4 mg capsule 0.4 mg PO DAILY Patient Comments: take 1 capsule by mouth once daily lisinopril 10 mg tablet 10 mg PO DAILY promethazine 25 mg suppository 25 mg [place] Q4-6H PRN (Reason: nausea and vomiting) Qty: 12 0RF Follow up/Referrals: Khang Vasques MD [Primary Care Provider] - Visit Report/Discharge Packet Instructions: Acute Kidney Injury, DI for Prescription Opioid Use, Pantoprazole Stand Alone Forms: Patient Portal/API, Stroke Signs & Symptoms Discharge Data Primary Care Provider: Khang Vasques Discharges patient from system. Discharge Date/Time: 12/09/24 15:11 Quality VTE Deep Vein Thrombosis/Pulmonary Embolism Present on Admission: No IH PROFEE Charge Codes Discharge inpatient/observation: [id number]
[2024-12-09] MEDS: polyethylene glycoL 3350 17 GM POWD.PACK PO (13:28)
--- NOTE | 2024-12-09 15:07 | PC.NURSE ---
Pt is dressed and ready for discharge home with S.O. IV has been removed. Went over d/c instructions with Pt and S.O.-discussed d/c meds, time of last dose, reviewed stroke education, reminded Pt to watch urinary output and concentration, and encouraged fluid intake to prevent constipation or dehydration. Pt and S.O. denied further questions and Pt was taken out via w/c by TILE SORTER to POV with S.O. and all belongings.
== END 2024-12-09 15:11 | disposition hospice, home (50) | DRG 377 ==
LOC: ED 12:11 → AC 13:29
PROVIDERS: Family Medicine; Admitting Provider Family Medicine; Emergency Provider Emergency Medicine; PCP Internal Medicine; Referring Provider Emergency Medicine; Visit Provider Internal Medicine
DX: K92.0 Hematemesis (principal); G93.41 Metabolic encephalopathy; N17.9 Acute kidney failure, unspecified; D62 Acute posthemorrhagic anemia; C79.51 Secondary malignant neoplasm of bone; F11.20 Opioid dependence, uncomplicated; K92.1 Melena; I95.9 Hypotension, unspecified; E86.0 Dehydration; E11.9 Type 2 diabetes mellitus without complications; I25.10 Atherosclerotic heart disease of native coronary artery without angina pectoris; E78.5 Hyperlipidemia, unspecified; G89.3 Neoplasm related pain (acute) (chronic); C61 Malignant neoplasm of prostate; I48.0 Paroxysmal atrial fibrillation; I49.8 Other specified cardiac arrhythmias; S70.01XA Contusion of right hip, initial encounter; W18.2XXA Fall in (into) shower or empty bathtub, initial encounter; B19.20 Unspecified viral hepatitis C without hepatic coma; I10 Essential (primary) hypertension; F41.1 Generalized anxiety disorder; Z66 Do not resuscitate; Z87.891 Personal history of nicotine dependence; Z79.01 Long term (current) use of anticoagulants; Z79.84 Long term (current) use of oral hypoglycemic drugs; Z79.02 Long term (current) use of antithrombotics/antiplatelets; Z51.5 Encounter for palliative care
CPT/HCPCS: 36415; 70450; 71045; 72125; 76770; 80048; 80053; 81001; 82962; 83605; 83690; 83735; 84484; 85014; 85018; 85025; 86850; 86900; 86901; 87040; 93005; 93010; 96361; 96374; 96375; 99284; G0378; J1171; J1815; J2405; J2470

== ENCOUNTER 2024-12-12 21:00 | Emergency (ER) | payer MEDICARE, OTHER, SELFPAY ==
[2024-12-05 12:35] VITALS: BMI 18.1
[2024-12-12 21:06] VITALS: BP 158/81; PULSE 59; RESP 18; TEMP 36.4; O2SAT 100; BMI 21.1
--- NOTE | 2024-12-12 21:20 | EKG_ITS ---
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
[2024-12-12 21:45] LABS: Add Manual Diff / Slide Review NO; Basophils Absolute Auto 0 /uL (0-100); Basophils Percent Auto 0.3 % (0-2); Eosinophils Absolute Auto 200 /uL (0-450); Hematocrit 24.4 % (41-53); Hemoglobin 8.7 g/dL (13.5-17.5); Lymphocytes Absolute Auto 700 /uL (1100-4500); Lymphocytes Percent Auto 23.8 % (25-40); Mean Corpuscular HGB Conc 35.7 % (30-36); Mean Corpuscular Volume 89.6 fL (80-100); Monocytes Absolute Auto 400 /uL (0-900); Neutrophils Absolute Auto 1600 /uL (1500-7000); Neutrophils Percent Auto 53.9 % (50-75); Platelet Count 87 X10^3/uL (150-400); Red Blood Cell Count 2.73 X10^6/uL (4.5-5.9); Red Cell Distribution Width 15.9 % (11.6-14.8)
[2024-12-12 21:57] LABS: Alanine Aminotransferase 30 IU/L (<50); Alkaline Phosphatase 68 U/L (38-126); Aspartate Aminotransferase 41 IU/L (17-59); BUN Creatinine Ratio 14.8 (6-22); Bilirubin Total 0.4 mg/dL (0.2-1.3); Blood Urea Nitrogen 16 mg/dL (9-20); Calcium 8.3 mg/dL (8.4-10.2); Carbon Dioxide 23 mmol/L (22-32); Chloride 108 mmol/L (98-107); Estimated Glomerular Filt Rate > 60 mL/min (>60); Globulin 2.9 g/dL (1.7-4.1); Glucose 148 mg/dL (80-110); HEMOLYSIS < 15 (0-50); Lipase 41 U/L (23-300); Potassium 3.6 mmol/L (3.4-5.1); Sodium 138 mmol/L (137-145); Total Protein 5.9 g/dL (6.3-8.2)
[2024-12-12 22:10] LABS: Ictotest Urine Negative (Negative)
[2024-12-12 22:24] LABS: Urine Volume 10mL (spun)
[2024-12-12 22:25] LABS: Bacteria Urine None Seen; Culture Indicated Urine Cult Not Indicated; RBC Urine None Seen (0-5/HPF); Renal Epithelial Cells Urine 0-1/HPF (0-1/HPF); Squamous Epithelial Cell Urine None Seen (0-5/HPF); WBC Urine None Seen (0-5/HPF)
--- NOTE | 2024-12-13 00:13 | ED_ITS ---
HPI - Abdominal Pain General Chief Complaint: Abdominal Pain Stated Complaint: edema Time Seen by Provider: 12/13/24 00:12 Source: patient and family Mode of arrival: Ambulatory History of Present Illness HPI narrative: 69-year-old male with a past medical history of prostate cancer with metastatic disease not undergoing current chemotherapy, CAD status post 3 stents, on Eliquis, comes into the ED from home for evaluation of edema. According to patient and significant other at bedside states that he was recently seen and discharged from the hospital here for kidney issues. He states that he is now having swelling to his lower body including legs and abdomen, he also states that he had a Gill catheter before but it was removed when he was discharged home. Related Data Home Medications Medication Instructions Recorded Confirmed tamsulosin 0.4 mg capsule 0.4 mg PO DAILY 09/15/21 12/05/24 atorvastatin 80 mg tablet 80 mg PO BEDTIME 07/30/22 12/05/24 apixaban 2.5 mg tablet (Eliquis) 2.5 mg PO BID 03/29/24 12/05/24 clopidogrel 75 mg tablet 75 mg PO DAILY 03/29/24 12/05/24 nitroglycerin 0.4 mg sublingual 0.4 mg sublingual Q5-15M PRN Chest 03/29/24 12/05/24 tablet Pain ondansetron HCl 4 mg tablet 4 mg PO Q8H PRN Nausea And Vomiting 03/29/24 12/05/24 sennosides 8.6 mg tablet (senna) 8.6 mg PO DAILY constipation 03/29/24 12/05/24 aspirin [Adult Low Dose Aspirin] 81 mg PO QAM 08/03/24 12/05/24 lisinopril 10 mg tablet 10 mg PO DAILY 08/19/24 12/05/24 isosorbide mononitrate 30 mg 30 mg PO DAILY 08/21/24 12/05/24 tablet,extended release 24 hr Previous Rx's Medication Instructions Recorded promethazine 25 mg rectal 25 mg TX Q4-6H PRN nausea and 11/18/20 suppository vomiting #12 ea metoprolol succinate 100 mg 100 mg PO BID #180 tabs 09/27/23 tablet,extended release 24 hr duloxetine 20 mg capsule,delayed 20 mg PO DAILY #90 caps 07/16/24 release (Cymbalta) morphine 10 mg/5 mL oral solution 10 mg (5 mL) PO Q6H PRN pain #100 08/07/24 mL metformin 500 mg tablet 500 mg PO BID #180 tabs 09/17/24 morphine 15 mg immediate release 7.5 - 15 mg (0.5 - 1 x 15 mg) PO 11/19/24 tablet Q4H PRN chest pain/bone pain #120 tabs pantoprazole 40 mg tablet,delayed 40 mg PO BID #60 tabs 12/09/24 release furosemide 20 mg tablet (Lasix) 20 mg PO DAILY 3 days #3 tabs 12/13/24 Allergies Allergy/AdvReac Type Severity Reaction Status Date / Time No Known Drug Allergies Allergy Verified 11/30/24 11:35 Review of Systems Review of Systems Narrative: General: Denies fever, chills, weight loss HEENT: Denies headache, eye drainage, eye irritation, head trauma, sore throat, voice change Cardiovascular: Denies any chest pain, palpitations, tachycardia Respiratory: Denies any shortness of breath, cough, wheeze, stridor GI/: Positive lower abdominal and scrotal swelling Denies any abdominal pain, nausea, vomiting, diarrhea, bright red blood per rectum, melanotic stools, urinary frequency, urinary retention, dysuria, hematuria MSK: Positive lower extremity swelling Skin: Denies any rashes, lesions, discoloration Neuro: Denies any headache, lightheadedness, dizziness, fainting, weakness Psych: Denies SI/HI Patient History Medical History Hypertensive urgency Colitis Hematuria Uncomplicated opioid dependence Generalized anxiety disorder Cannabis abuse Prostate cancer (~05/2019) Paroxysmal A-fib Transaminitis Kidney stones Diverticulosis of large intestine (03/31/12) Chronic hepatitis Coronary artery disease involving hopi coronary artery of hopi heart without angina pectoris (~2006) Essential hypertension Mixed hyperlipidemia Surgical History H/O heart artery stent (~2006) Hx of inguinal hernia surgery (~03/07/14) Hx of inguinal hernia surgery (~09/20/08) Status post laminectomy History of angioplasty (~12/2006) Social History marital status: unmarried,single number of children: 3 household members: caregiver lives independently: Yes caregiver/support person: No housing: house pets and animals: No education level: high school occupational status: other 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/mandaen: None leisure activities: music, fishing and other Tobacco: How many years used: 56 Smokeless tobacco user: other quit status: has quit before second hand exposure: Yes (On farmland/Boat.) alcohol intake: former substance use type: does not use and marijuana eating out: rarely or never Type(s) of exercise: normal ROM and activity and additional alcohol intake frequency: 0-2 drinks per day Alcohol type: beer Exam Narrative Exam Narrative: General: Cooperative, elderly, frail not in acute distress HEENT: Normocephalic, atraumatic, PERRLA, normal sclera, eyelids normal Neck: Active full range of motion, atraumatic Chest: Normal to inspection, negative crepitus, no overlying erythema ecchymosis Respiratory: Normal respiratory effort, not in acute respiratory distress, clear to auscultation bilaterally negative cough, wheeze, tachypnea, rhonchi, rales Cardiology: Regular rate rhythm negative gallop, murmur, rubs GI/: No tenderness to palpation, soft, non rigid, normal to inspection, exam: Mild edema noted to the penis as well as the scrotum however no erythema ecchymosis purulent discharge no tenderness to palpation no crepitus MSK: Full active range of motion in all 4 extremities, atraumatic, no tenderness to palpation of any bony prominences, +1 pitting edema to lower extremities Skin: No rashes or lesions noted Neuro: Alert awake oriented x3, moves all 4 extremities spontaneously, cranial nerves intact, able to answer all questions appropriately follows commands appropriately Psych: Cooperative, negative suicidal or homicidal ideations Initial Vital Signs Initial Vital Signs: Vital Signs Temperature 97.6 F 12/12/24 21:06 Pulse Rate 59 L 12/12/24 21:06 Respiratory Rate 18 12/12/24 21:06 Blood Pressure 158/81 H 12/12/24 21:06 Pulse Oximetry 100 12/12/24 21:06 Oxygen Delivery Method Room Air 12/12/24 21:06 Course Orders Ordered: ED Orders 12/12/24 21:20 EKG-12 Lead Stat 12/12/24 21:35 Complete Blood Count AUTO DIFF Stat Comprehensive Metabolic Panel Stat Lipase Stat 12/12/24 21:53 Ictotest Urine Stat Urine Microscopic Stat 12/13/24 00:24 CT abdomen pelvis w con Stat MAG [Magnesium] Stat NT-proBNP (BNP-Adult 18+) Stat Troponin & CK Cardiac Panel Stat 12/13/24 00:25 CXR [XR chest 1V] Stat Ondansetron HCl (Ondansetron 4 Mg/2 Ml Inj) 4 mg IV NOW PRN PRN Reason: Nausea And Vomiting Ondansetron HCl (Ondansetron 4 Mg Odt) 4 mg PO NOW PRN PRN Reason: Nausea And Vomiting Vital Signs Vital signs: Vital Signs - 8 hr 12/12/24 21:06 Temperature 97.6 F Pulse Rate 59 L Respiratory Rate 18 Blood Pressure 158/81 H Pulse Oximetry 100 Oxygen Delivery Method Room Air MDM - Abdominal Pain Differential Diagnosis Differential diagnosis: Likely other (Metastatic disease, urinary tract infection, CHF, electrolyte abnormality) Lab Data 12/12/24 21:35 12/12/24 21:35 Labs: Lab Results 12/12/24 12/12/24 12/12/24 Range/Units 21:35 21:35 21:53 WBC 3.0 L (4.5-11.0) X10^3/uL RBC 2.73 L (4.5-5.9) X10^6/uL Hgb 8.7 L (13.5-17.5) g/dL Hct 24.4 L (41-53) % MCV 89.6 (80-100) fL MCH 32.0 (26-34) PG MCHC 35.7 (30-36) % RDW 15.9 H (11.6-14.8) % Plt Count 87 L (150-400) X10^3/uL Neut % (Auto) 53.9 (50-75) % Lymph % (Auto) 23.8 L (25-40) % [place] % (Auto) 14.0 (3-14) % Eos % (Auto) 8.0 H (2-4) % Baso % (Auto) 0.3 (0-2) % Neut # (Auto) 1600 (9591-6943) /uL Lymph # (Auto) 700 L (0412-9261) /uL [place] # (Auto) 400 (0-900) /uL Eos # (Auto) 200 (0-450) /uL Baso # (Auto) 0 (0-100) /uL Sodium 138 (137-145) mmol/L Potassium 3.6 (3.4-5.1) mmol/L Chloride 108 H (98-107) mmol/L Carbon Dioxide 23 (22-32) mmol/L BUN 16 (9-20) mg/dL Creatinine 1.08 (0.66-1.25) mg/dL Estimated GFR > 60 (>60) mL/min BUN/Creatinine Ratio 14.8 (6-22) Glucose 148 H (80-110) mg/dL Calcium 8.3 L (8.4-10.2) mg/dL Magnesium 1.4 L (1.6-2.3) mg/dL Total Bilirubin 0.4 (0.2-1.3) mg/dL AST 41 (17-59) IU/L ALT 30 (<50) IU/L Alkaline Phosphatase 68 (38-126) U/L Total Creatine Kinase 59 (55-170) U/L Troponin I < 0.012 (0.01-0.034) ng/mL NT-Pro-B Natriuret Pep 3390 H (<125) pg/mL Total Protein 5.9 L (6.3-8.2) g/dL Albumin 3.0 L (3.5-5.0) g/dL Globulin 2.9 (1.7-4.1) g/dL Albumin/Globulin Ratio 1.0 (1.0-2.8) Lipase 41 Cancelled (23-300) U/L Ur Bilirubin Confirm Negative (Negative) Urine RBC None seen (0-5/HPF) Urine WBC None seen (0-5/HPF) Ur Squamous Epith Cells None seen (0-5/HPF) Ur Renal Epithelial Cell 0-1/hpf (0-1/HPF) Urine Bacteria None seen (None) Ur Culture Indicated? Cult not indicated Vol Urine Centrifuged 10ml (spun) Point of care testing: Urine Dip Bedside Urine Glucose Negative Bedside Urine Bilirubin + 1 Bedside Urine Ketone - Negative Urine Specific [place] 1.025 Bedside Urine Occult Blood - Negative Bedside Urine pH 6.0 Bedside Urine Protein +/- 15 Bedside Urine Urobilinogen 1+ 2mg Bedside Urine Nitrite - Negative Bedside Urine Leukocytes - Negative Esterase Imaging Data CT scan - abdomen/pelvis: Radiologist's Impression: [address] [address] [address] Scan Report Signed Patient: Brennan Marmolejo Jr MR#: [id number] : 1955 Acct:[id number] Age/Sex: 69 / M Date of Service: 12/13/24 Loc: ED Accession Number: [id number] Procedure: CT abdomen pelvis w con Ordering Provider: Dipak Geiger D.O. PROCEDURE: CT ABDOMEN PELVIS W CON INDICATIONS: Known prostate cancer now with scrotal swelling and lower ab TECHNIQUE: After the administration of intravenous contrast, axial sections acquired from the lung bases to the pubic symphysis. Coronal and sagittal reformats were performed. For radiation dose reduction, the following was used: automated exposure control, adjustment of mA and/or kV according to patient size. COMPARISON: [facility], CT, CT ABDOMEN PELVIS W CON, 09/14/2024, 16:47. FINDINGS: Image quality: Diagnostic. Lower Chest: Small bilateral pleural effusions. Partially seen heavy coronary artery calcification. Mild bibasilar parenchymal opacities. ABDOMEN: Liver: Nodular liver margin. Hypertrophied left and caudate lobes. Coarse calcifications collected at the liver dome. Gallbladder: No wall thickening or calcified stones. Biliary ducts: No biliary dilation. Pancreas: Hypodense pancreas with several punctate calcifications. No definite ductal dilatation. Spleen: Size is within normal limits. Adrenal Glands: No nodules. Kidneys and Ureters: Symmetric enhancement. No nephrolithiasis or hydronephrosis. No visible mass or cyst requiring follow up. No hydroureter. Stomach and Bowel: Mild mural thickening and mucosal hyperemia involving the stomach. Small bowel loops are largely within normal limits. 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 Normal appendix. Increased quantity of colonic stool. Moderate sigmoid diverticulosis. Peritoneum: No abnormal intraperitoneal fluid. No free air. Ventral Wall: Tiny fat containing umbilical hernia. Abdominal Nodes: No retroperitoneal or mesenteric adenopathy by size criteria. Vessels: The abdominal aorta, IVC, and portal vein are of normal caliber. Moderate abdominal aortic atherosclerotic calcification. PELVIS: Pelvic Organs: Normal size prostate gland with fiducial markers in place. Trace hydrocele. No significant scrotal cellulitis. Bladder: No stones or wall thickening. Pelvic Nodes: No enlarged lymph nodes. Miscellaneous: No inguinal hernias are seen. Bones: Hazy sclerotic lesion involving the right sacral ala and dense bilobed bone lesion in the posterior aspect of L2. Stable nonspecific lytic lesion eroding the cortex of the right iliac wing. IMPRESSION: No significant hydrocele or scrotal cellulitis seen. Cirrhotic liver without intra-abdominal ascites Findings of gastritis. Correlate clinically. Increased quantity of solid stool and mild diverticulosis in the colon. Stable bone lesions of varying densities as described. No pathologic fractures evident. Development of small bilateral effusions and mild associated bibasilar opacities. Chest x-ray: Radiologist's Impression: [address] [address] XRay Report Signed Patient: Brennan Marmolejo Jr MR#: [id number] : 1955 Acct:[id number] Age/Sex: 69 / M Date of Service: 12/13/24 Loc: ED Accession Number: [id number] Procedure: XR chest 1V Ordering Provider: Dipak Geiger D.O. PROCEDURE: XR CHEST 1V INDICATIONS: lower extremity swelling TECHNIQUE: One view of the chest was acquired. COMPARISON: [facility], CR, XR CHEST 1V, 12/05/2024, 8:35. FINDINGS: Surgical changes and devices: None. Lungs and pleura: Coarse bilateral interstitial markings. Bibasilar pulmonary opacities and small right, possible left effusion. No pneumothorax. Mediastinum: Normal size heart. Normal aortic contour. Mild central vascular congestion. Bones and chest wall: No suspicious bony lesions. Overlying soft tissues appear unremarkable. IMPRESSION: Mild central vascular prominence, possible volume overload. Coarse interstitial markings and bibasilar opacities, nonspecific. In the clinical setting, consider early CHF and slight pulmonary edema. ECG Data Interpretation: EKG interpreted by ED physician sinus bradycardia at 59 beats per minute QTC [address] changes no STEMI MDM Narrative Medical decision making narrative: 69-year-old male with history of paroxysmal AFib on Eliquis, prostate cancer with metastatic disease not undergoing chemotherapy, CAD with stent x3 coming in for lower abdominal and scrotal swelling, also stating lower extremity swelling states he noticed this yesterday. States he was seen here a few days ago for ELADIO. On exam patient with swelling to the lower extremity +1 pitting edema, no erythema, mild edema noted to the patient's genitalia region but no crepitus no purulent discharge no other gross abnormalities. Patient EKG nonischemic in nature lab work baseline for patient's known history of prostate cancer. Urinalysis not consistent with acute urinary tract infection. Troponin negative, chest x-ray showing mild vascular congestion consistent with possible early CHF, BNP is slightly elevated at 3390, CT scan does show development of small bilateral effusions, no acute intra-abdominal abnormalities, no significant hydrocele or scrotal cellulitis, however given patient with increased edema noted to the lower extremity and recent admission that did require significant amount of fluids patient most likely heading towards slight fluid overload therefore will treat carefully with mild diuresis, 1st dose of Lasix here we will send patient home on a very short course, they have an appointment with their primary care doctor tomorrow on 12/14/2024, instructed them to follow up with them to decide additional diuresis. Patient and significant other at bedside understand agree with the plan strict return precautions given they verbalized understanding of this and agrees to being discharged home with outpatient follow up Discharge Plan Departure Patient Disposition: Home Clinical Impression: Bilateral lower extremity edema, Scrotal edema Activity Restrictions/Additional Instructions: Please follow up with your primary care doctor for your scheduled appointment Please read the discharge instructions sheet carefully and bring all papers to all doctor follow-up visits, as it may contain information that your doctor may want to see. Disease processes change and evolve, if your symptoms worsen or if you develop any new symptoms that are concerning to you please return for evaluation. Your evaluation today does not show any evidence of any life- threatening/serious illnesses requiring admission to the hospital or surgery. Please follow-up with your doctor for re-evaluation in approximately 1 day. Seek immediate medical attention for any worrisome symptoms. *If you do not have a primary care provider please contact the [facility] Resource line at [phone]. They will ask some questions about your medical history and help get you set up with a doctor in the community. Prescriptions: New furosemide [Lasix] 20 mg tablet 20 mg PO DAILY 3 Days Qty: 3 0RF No Action metoprolol succinate 100 mg tablet extended release 24 hr 100 mg PO BID Qty: 180 3RF duloxetine [Cymbalta] 20 mg capsule,delayed release(DR/EC) 20 mg PO DAILY Qty: 90 3RF morphine 10 mg/5 mL solution 10 mg PO Q6H PRN (Reason: pain) Qty: 100 0RF metformin 500 mg tablet 500 mg PO BID Qty: 180 3RF morphine 15 mg tablet 7.5 - 15 mg PO Q4H MDD 60mg PRN (Reason: chest pain/bone pain) Qty: 120 0RF atorvastatin 80 mg tablet 80 mg PO BEDTIME Eliquis 2.5 mg tablet 2.5 mg PO BID clopidogrel 75 mg tablet 75 mg PO DAILY sennosides [senna] 8.6 mg tablet 8.6 mg PO DAILY nitroglycerin 0.4 mg tablet, sublingual 0.4 mg sublingual Q5-15M PRN (Reason: Chest Pain) ondansetron HCl 4 mg tablet 4 mg PO Q8H PRN (Reason: Nausea And Vomiting) aspirin [Adult Low Dose Aspirin] 81 mg PO QAM isosorbide mononitrate 30 mg tablet extended release 24 hr 30 mg PO DAILY Patient Comments: Per Significant other Lisandra. tamsulosin 0.4 mg capsule 0.4 mg PO DAILY Patient Comments: take 1 capsule by mouth once daily lisinopril 10 mg tablet 10 mg PO DAILY promethazine 25 mg suppository 25 mg TX Q4-6H PRN (Reason: nausea and vomiting) Qty: 12 0RF pantoprazole 40 mg tablet,delayed release (DR/EC) 40 mg PO BID Qty: 60 2RF Referrals: Khang Vasques MD [Primary Care Provider] - Stand Alone Forms: Patient Portal/API/Survey
--- NOTE | 2024-12-13 00:24 | DI.CT.S_ITS ---
PROCEDURE: CT ABDOMEN PELVIS W CON INDICATIONS: Known prostate cancer now with scrotal swelling and lower ab TECHNIQUE: After the administration of intravenous contrast, axial sections acquired from the lung bases to the pubic symphysis. Coronal and sagittal reformats were performed. For radiation dose reduction, the following was used: automated exposure control, adjustment of mA and/or kV according to patient size. COMPARISON: [facility], CT, CT ABDOMEN PELVIS W CON, 09/14/2024, 16:47. FINDINGS: Image quality: Diagnostic. Lower Chest: Small bilateral pleural effusions. Partially seen heavy coronary artery calcification. Mild bibasilar parenchymal opacities. ABDOMEN: Liver: Nodular liver margin. Hypertrophied left and caudate lobes. Coarse calcifications collected at the liver dome. Gallbladder: No wall thickening or calcified stones. Biliary ducts: No biliary dilation. Pancreas: Hypodense pancreas with several punctate calcifications. No definite ductal dilatation. Spleen: Size is within normal limits. Adrenal Glands: No nodules. Kidneys and Ureters: Symmetric enhancement. No nephrolithiasis or hydronephrosis. No visible mass or cyst requiring follow up. No hydroureter. Stomach and Bowel: Mild mural thickening and mucosal hyperemia involving the stomach. Small bowel loops are largely within normal limits. 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 Normal appendix. Increased quantity of colonic stool. Moderate sigmoid diverticulosis. Peritoneum: No abnormal intraperitoneal fluid. No free air. Ventral Wall: Tiny fat containing umbilical hernia. Abdominal Nodes: No retroperitoneal or mesenteric adenopathy by size criteria. Vessels: The abdominal aorta, IVC, and portal vein are of normal caliber. Moderate abdominal aortic atherosclerotic calcification. PELVIS: Pelvic Organs: Normal size prostate gland with fiducial markers in place. Trace hydrocele. No significant scrotal cellulitis. Bladder: No stones or wall thickening. Pelvic Nodes: No enlarged lymph nodes. Miscellaneous: No inguinal hernias are seen. Bones: Hazy sclerotic lesion involving the right sacral ala and dense bilobed bone lesion in the posterior aspect of L2. Stable nonspecific lytic lesion eroding the cortex of the right iliac wing. IMPRESSION: No significant hydrocele or scrotal cellulitis seen. Cirrhotic liver without intra-abdominal ascites Findings of gastritis. Correlate clinically. Increased quantity of solid stool and mild diverticulosis in the colon. Stable bone lesions of varying densities as described. No pathologic fractures evident. Development of small bilateral effusions and mild associated bibasilar opacities. Dictated by: Michaela Bueno M.D. on 12/13/2024 at 2:05 Approved by: Michaela Bueno M.D. on 12/13/2024 at 2:17
--- NOTE | 2024-12-13 00:25 | DI.RAD.S_ITS ---
PROCEDURE: XR CHEST 1V INDICATIONS: lower extremity swelling TECHNIQUE: One view of the chest was acquired. COMPARISON: [facility], CR, XR CHEST 1V, 12/05/2024, 8:35. FINDINGS: Surgical changes and devices: None. Lungs and pleura: Coarse bilateral interstitial markings. Bibasilar pulmonary opacities and small right, possible left effusion. No pneumothorax. Mediastinum: Normal size heart. Normal aortic contour. Mild central vascular congestion. Bones and chest wall: No suspicious bony lesions. Overlying soft tissues appear unremarkable. IMPRESSION: Mild central vascular prominence, possible volume overload. Coarse interstitial markings and bibasilar opacities, nonspecific. In the clinical setting, consider early CHF and slight pulmonary edema. Dictated by: Michaela Bueno M.D. on 12/13/2024 at 2:01 Approved by: Michaela Bueno M.D. on 12/13/2024 at 2:03
[2024-12-13 00:46] LABS: Creatine Kinase 59 U/L (55-170); Magnesium 1.4 mg/dL (1.6-2.3)
[2024-12-13 00:58] LABS: NT-proBNP (BNP-Adult 18+) 3390 pg/mL (<125); Troponin I < 0.012 ng/mL (0.01-0.034)
[2024-12-13 02:27] VITALS: PULSE 65; O2SAT 97
[2024-12-13 02:30] VITALS: BP 157/84; PULSE 64; RESP 18; O2SAT 97
[2024-12-13] MEDS: FUROSEMIDE 20 MG TABLET PO (02:39)
[2024-12-13 02:47] VITALS: BP 154/93; PULSE 69; RESP 20; O2SAT 98
== END 2024-12-13 02:48 | disposition home or self-care (01) ==
PROVIDERS: Emergency Provider Student in an Organized Health Care Education/Training Program; PCP Internal Medicine
DX: R60.0 Localized edema (principal); N50.89 Other specified disorders of the male genital organs; Z95.5 Presence of coronary angioplasty implant and graft; Z79.01 Long term (current) use of anticoagulants
CPT/HCPCS: 36415; 71045; 74177; 80053; 81003; 81015; 82550; 83690; 83735; 83880; 84484; 85025; 93005; 99284; Q9967

== ENCOUNTER 2024-12-16 11:05 | Inpatient (IN) | payer MEDICARE, OTHER, SELFPAY ==
[2024-12-05 12:35] VITALS: BMI 18.1
[2024-12-16] VITALS (20 sets, daily range): BP systolic 130–224; BP diastolic 71–123; PULSE 64–85; RESP 10–23; TEMP 36.2–37.3; O2SAT 95–100; BMI 21.9
--- NOTE | 2024-12-16 11:09 | DI.RAD.S_ITS ---
PROCEDURE: XR CHEST 1V INDICATIONS: chest pain TECHNIQUE: One view of the chest was acquired. COMPARISON: [facility], CR, XR CHEST 1V, 12/13/2024, 0:22. FINDINGS: Surgical changes and devices: None. Lungs and pleura: Lungs are clear. No pleural effusions or pneumothorax. Mediastinum: Mediastinal contours appear normal. Heart size is normal. Bones and chest wall: No suspicious bony lesions. Overlying soft tissues appear unremarkable. IMPRESSION: No acute cardiopulmonary abnormality is seen. Approved by: Randy Willard M.D. on 12/16/2024 at 11:16
--- NOTE | 2024-12-16 11:12 | EKG_ITS ---
[address] [address] Test Date: 2024-12-16 Pat Name: Brennan Marmolejo Jr Department: Room: Gender: Male Rest Room Maid: JULIEN : 1955 Requested By: Order Number: [id number] Reading MD: Khang Vasques MD Measurements Intervals [place] Rate: 63 P: 0 AL: 130 QRS: -3 QRSD: 68 T: 62 QT: 488 QTc: 499 Interpretive Statements Normal sinus rhythm Anteroseptal infarct , age undetermined Electronically Signed On 12-17-2024 6:05:18 PDT by Khang Vasques MD
--- NOTE | 2024-12-16 11:24 | ED_ITS ---
HPI - General Adult General Chief complaint: Abdominal Pain Stated complaint: Nausea/Diarrhea Time Seen by Provider: 12/16/24 11:20 History of Present Illness HPI narrative: 69-year-old male with history of diabetes, paroxysmal AFib on chronic anticoagulation, recently admitted in the hospital for nausea and vomiting with dehydration, now with nausea vomiting and diarrhea intermittently the last 2 days, no black or red stools, unable to keep oral stone in the day today. Arrived by EMS. Also having abdominal pain generalized. No trauma new activities recalled. Denies fevers or chills. PCP Dr Vasques. Related Data Home Medications Medication Instructions Recorded Confirmed tamsulosin 0.4 mg capsule 0.4 mg PO DAILY 09/15/21 12/16/24 atorvastatin 80 mg tablet 80 mg PO BEDTIME 07/30/22 12/16/24 apixaban 2.5 mg tablet (Eliquis) 2.5 mg PO BID 03/29/24 12/16/24 clopidogrel 75 mg tablet 75 mg PO DAILY 03/29/24 12/16/24 nitroglycerin 0.4 mg sublingual 0.4 mg sublingual Q5-15M PRN Chest 03/29/24 12/16/24 tablet Pain ondansetron HCl 4 mg tablet 4 mg PO Q8H PRN Nausea And Vomiting 03/29/24 12/16/24 sennosides 8.6 mg tablet (senna) 8.6 mg PO DAILY constipation 03/29/24 12/16/24 aspirin [Adult Low Dose Aspirin] 81 mg PO QAM 08/03/24 12/16/24 lisinopril 10 mg tablet 10 mg PO DAILY 08/19/24 12/16/24 isosorbide mononitrate 30 mg 30 mg PO DAILY 08/21/24 12/16/24 tablet,extended release 24 hr Previous Rx's Medication Instructions Recorded promethazine 25 mg rectal 25 mg DE Q4-6H PRN nausea and 11/18/20 suppository vomiting #12 ea metoprolol succinate 100 mg 100 mg PO BID #180 tabs 09/27/23 tablet,extended release 24 hr duloxetine 20 mg capsule,delayed 20 mg PO DAILY #90 caps 07/16/24 release (Cymbalta) morphine 10 mg/5 mL oral solution 10 mg (5 mL) PO Q6H PRN pain #100 08/07/24 mL metformin 500 mg tablet 500 mg PO BID #180 tabs 09/17/24 pantoprazole 40 mg tablet,delayed 40 mg PO BID #60 tabs 12/09/24 release morphine 15 mg immediate release 7.5 - 15 mg (0.5 - 1 x 15 mg) PO 12/14/24 tablet Q3H PRN chest pain/bone pain #150 tabs hydrocodone 5 mg-acetaminophen 325 1 tab PO Q6H PRN pain #14 tabs 12/16/24 mg tablet methocarbamol 500 mg tablet 500 mg PO TID 7 days #21 tabs 12/16/24 methylprednisolone 4 mg tablets in See Rx Instructions PO .COMPLEX 12/16/24 a dose pack (Medrol (Justice)) #21 ea naproxen 500 mg tablet 500 mg PO BID 7 days #14 tabs 12/16/24 Allergies Allergy/AdvReac Type Severity Reaction Status Date / Time No Known Drug Allergies Allergy Verified 12/14/24 10:27 Patient History Medical History (Updated 12/16/24 @ 14:50 by Wilberto Beckett MD) Malignant neoplasm of prostate metastatic to bone Acute upper gastrointestinal bleeding Hypertensive urgency Colitis Hematuria Uncomplicated opioid dependence Generalized anxiety disorder Cannabis abuse Prostate cancer (~05/2019) Paroxysmal A-fib Transaminitis Kidney stones Diverticulosis of large intestine (03/31/12) Chronic hepatitis Coronary artery disease involving [place] coronary artery of [place] heart without angina pectoris (~2006) Essential hypertension Mixed hyperlipidemia Surgical History H/O heart artery stent (~2006) Hx of inguinal hernia surgery (~03/07/14) Hx of inguinal hernia surgery (~09/20/08) Status post laminectomy History of angioplasty (~12/2006) Social History marital status: unmarried,single number of children: 3 household members: caregiver lives independently: Yes caregiver/support person: No housing: house pets and animals: No education level: high school occupational status: other 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 HEAD: Atraumatic. Normocephalic. EYES: Pupils equal round and reactive. Extraocular motions intact. No scleral icterus. No injection or drainage. ENT: Nose without bleeding, purulent drainage. Throat without erythema, tonsillar hypertrophy or exudate. Airway patent. NECK: Trachea midline. Non tender CARDIOVASCULAR: Regular rate and rhythm without murmurs, gallops, or rubs. RESPIRATORY: Clear to auscultation. Breath sounds equal bilaterally. No wheezes, rales, or rhonchi. GASTROINTESTINAL: Abdomen soft, non-tender, nondistended. EXTREMITIES: No edema or joint tenderness. BACK: Nontender without deformity or crepitance. No flank tenderness. NEURO: AOx3. Motor functions grossly nonfocal SKIN: No rash or erythema of visible areas Initial Vital Signs Initial Vital Signs: Vital Signs Temperature 98.5 F 12/16/24 11:05 Pulse Rate 65 12/16/24 11:05 Respiratory Rate 16 12/16/24 11:05 Blood Pressure 210/117 H 12/16/24 11:05 Pulse Oximetry 98 12/16/24 11:05 Oxygen Delivery Method Room Air 12/16/24 11:05 Course Orders Ordered: ED Orders 12/16/24 14:05 GI Panel (Film Array) Stat 12/16/24 15:26 EKG-12 Lead Stat Acetaminophen (Acetaminophen 325 Mg Tablet) 650 mg PO Q6H PRN PRN Reason: Fever/Mild Pain (1-3) Apixaban (Apixaban 5 Mg Tablet) 2.5 mg PO BID [facility] Atorvastatin Calcium (Atorvastatin 20 Mg Tablet) 80 mg PO BEDTIME [facility] Clopidogrel Bisulfate (Clopidogrel 75 Mg Tablet) 75 mg PO DAILY [facility] Duloxetine HCl (Duloxetine 20 Mg Capsule) 20 mg PO DAILY [facility] Hydromorphone HCl (Hydromorphone 0.5 Mg Inj) 1 mg IV Q2H PRN PRN Reason: Pain, Severe (7-10) Last Admin: 12/16/24 17:39 Dose: 1 mg Documented By: FADI Dextrose (D10w) 100 mls @ 999 mls/hr IV PRN PRN PRN Reason: Hypoglycemia Sodium Chloride (Normal Saline 0.45%) 1,000 mls @ 80 mls/hr IV CONT [facility] Last Admin: 12/16/24 18:47 Dose: 80 mls/hr Documented By: FADI Insulin Human Lispro (Insulin Lispro 100 Unit/Ml 3ml Vial) 0 unit SUBCUT ACHS [facility]; Protocol Last Admin: 12/16/24 18:22 Dose: Not Given Documented By: FADI Isosorbide Mononitrate (Isosorbide Mononitrate Er 30 Mg Tablet) 30 mg PO QACBREAK [facility] Metoclopramide HCl (Metoclopramide 10 Mg/2 Ml Inj) 5 mg IV Q6HR PRN PRN Reason: Nausea And Vomiting Metoprolol Succinate (Metoprolol Er 50 Mg Tablet) 100 mg PO BID [facility] Morphine Sulfate (Morphine Ir 15 Mg Tablet) 15 mg PO Q4HR PRN PRN Reason: Pain, Moderate (4-6) Morphine Sulfate (Morphine Ir 15 Mg Tablet) 7.5 mg PO Q4HR PRN PRN Reason: Pain, Mild (1-3) Naloxone HCl (Naloxone 0.4 Mg/Ml Vial) 0.2 mg IV Q2MIN PRN PRN Reason: Opiate Reversal Ondansetron HCl (Ondansetron 4 Mg/2 Ml Inj) 4 mg IV Q6HR [facility] Last Admin: 12/16/24 18:24 Dose: Not Given Documented By: FADI Pantoprazole Sodium (Pantoprazole Dr 20 Mg Tablet) 20 mg PO 0700,2100 [facility] Tamsulosin HCl (Tamsulosin 0.4 Mg Capsule) 0.4 mg PO DAILY [facility] Discontinued Medications Diphenhydramine HCl (Diphenhydramine 50 Mg/Ml Vial) 25 mg IV NOW ONE Stop: 12/16/24 11:25 Last Admin: 12/16/24 11:33 Dose: 25 mg Documented By: SERGIO Hydromorphone HCl (Hydromorphone 0.5 Mg Inj) 0.5 mg IV NOW ONE Stop: 12/16/24 11:26 Last Admin: 12/16/24 11:33 Dose: 0.5 mg Documented By: SERGIO Hydromorphone HCl (Hydromorphone 0.5 Mg Inj) 0.5 mg IV NOW ONE Stop: 12/16/24 13:50 Last Admin: 12/16/24 13:55 Dose: 0.5 mg Documented By: JULIEN Sodium Chloride (Normal Saline 0.9%) 1,000 mls @ 1,000 mls/hr IV BOLUS ONE Stop: 12/16/24 12:24 Last Infusion: 12/16/24 13:38 Dose: Infused Documented By: Admin: 12/16/24 11:32 Dose: 1,000 mls/hr Documented By: SERGIO Magnesium Sulfate (Magnesium Sulfate) 2 gm in 50 mls @ 150 mls/hr IV NOW ONE Stop: 12/16/24 12:12 Last Infusion: 12/16/24 12:42 Dose: Infused Documented By: JULIEN Co-signed By: CARLOS Admin: 12/16/24 12:15 Dose: 150 mls/hr Documented By: JULIEN Co-signed By: CARLOS Metoclopramide HCl (Metoclopramide 10 Mg/2 Ml Inj) 10 mg IV NOW ONE Stop: 12/16/24 11:25 Last Admin: 12/16/24 11:33 Dose: 10 mg Documented By: SERGIO Vital Signs Vital signs: Vital Signs - 8 hr 12/16/24 13:30 12/16/24 14:00 12/16/24 14:00 Pulse Rate 84 78 Respiratory Rate Blood Pressure 208/108 H Pulse Oximetry 99 99 12/16/24 14:30 12/16/24 14:30 12/16/24 15:00 Pulse Rate 79 Respiratory Rate 17 Blood Pressure 172/84 H 130/71 Pulse Oximetry 96 12/16/24 15:00 Pulse Rate 85 Respiratory Rate 18 Blood Pressure Pulse Oximetry 95 Medical Decision Making Lab Data Lab results reviewed: Yes I reviewed the patient's lab results. Lab results narrative: White blood cell count 4100, hemoglobin 13.3, platelets adequate. Blood glucose 219. Serum CO2 23. Sodium 137, potassium 3.9, chloride 96. BUN 17 with creatinine 1.07 normal renal function. 12/16/24 11:27 12/16/24 11:27 Labs: Lab Results 12/16/24 12/16/24 Range/Units 11:27 13:23 WBC 4.1 L (4.5-11.0) X10^3/uL RBC 4.15 L (4.5-5.9) X10^6/uL Hgb 13.3 L (13.5-17.5) g/dL Hct 37.2 L (41-53) % MCV 89.8 (80-100) fL MCH 32.0 (26-34) PG MCHC 35.6 (30-36) % RDW 15.7 H (11.6-14.8) % Plt Count 132 L (150-400) X10^3/uL Neut % (Auto) 82.1 H (50-75) % Lymph % (Auto) 12.0 L (25-40) % [place] % (Auto) 5.3 (3-14) % Eos % (Auto) 0.2 L (2-4) % Baso % (Auto) 0.4 (0-2) % Neut # (Auto) 3300 (9826-6709) /uL Lymph # (Auto) 500 L (5297-1375) /uL [place] # (Auto) 200 (0-900) /uL Eos # (Auto) 0 (0-450) /uL Baso # (Auto) 0 (0-100) /uL PT 14.1 H (9.4-12.5) SECONDS INR 1.2 (0.9-1.3) APTT 27 (25.1-36.5) SECONDS Sodium 137 (137-145) mmol/L Potassium 3.9 (3.4-5.1) mmol/L Chloride 96 L (98-107) mmol/L Carbon Dioxide 23 (22-32) mmol/L BUN 17 (9-20) mg/dL Creatinine 1.07 (0.66-1.25) mg/dL Estimated GFR > 60 (>60) mL/min BUN/Creatinine Ratio 15.9 (6-22) Glucose 219 H (80-110) mg/dL Lactate 3.6 H 3.0 H (0.7-2.1) mmol/L Calcium 9.6 (8.4-10.2) mg/dL Magnesium 1.1 L (1.6-2.3) mg/dL Total Bilirubin 2.0 H (0.2-1.3) mg/dL AST 105 H (17-59) IU/L ALT 74 H (<50) IU/L Alkaline Phosphatase 120 D (38-126) U/L Total Creatine Kinase 68 (55-170) U/L Troponin I < 0.012 (0.01-0.034) ng/mL NT-Pro-B Natriuret Pep 4090 H (<125) pg/mL Total Protein 9.4 H (6.3-8.2) g/dL Albumin 5.0 (3.5-5.0) g/dL Globulin 4.4 H (1.7-4.1) g/dL Albumin/Globulin Ratio 1.1 (1.0-2.8) Lipase 76 D (23-300) U/L Imaging Data Chest x-ray: Radiologist's Impression: [address] [address] XRay Report Signed Patient: Brennan Marmolejo Jr MR#: [id number] : 1955 Acct:[id number] Age/Sex: 69 / M Date of Service: 12/16/24 Loc: ED Accession Number: [id number] Procedure: XR chest 1V Ordering Provider: Wilberto Beckett MD PROCEDURE: XR CHEST 1V INDICATIONS: chest pain TECHNIQUE: One view of the chest was acquired. COMPARISON: [facility], , XR CHEST 1V, 12/13/2024, 0:22. FINDINGS: Surgical changes and devices: None. Lungs and pleura: Lungs are clear. No pleural effusions or pneumothorax. Mediastinum: Mediastinal contours appear normal. Heart size is normal. Bones and chest wall: No suspicious bony lesions. Overlying soft tissues appear unremarkable. IMPRESSION: No acute cardiopulmonary abnormality is seen. Approved by: Randy Willard M.D. on 12/16/2024 at 11:16 CT scan - abdomen/pelvis: Radiologist's Impression: [address] [address] [address] Scan Report Signed Patient: Brennan Marmolejo Jr MR#: [id number] : 1955 Acct:[id number] Age/Sex: 69 / M Date of Service: 12/16/24 Loc: ED Accession Number: [id number] Procedure: CT abdomen pelvis w con Ordering Provider: Wilberto Beckett MD PROCEDURE: CT ABDOMEN PELVIS W CON INDICATIONS: abd pain TECHNIQUE: After the administration of intravenous contrast, axial sections acquired from the lung bases to the pubic symphysis. Coronal and sagittal reformats were performed. For radiation dose reduction, the following was used: automated exposure control, adjustment of mA and/or kV according to patient size. COMPARISON: [facility], CT, CT ABDOMEN PELVIS W CON, 09/14/2024, 16:47. [facility], CT, CT ABDOMEN PELVIS W CON, 12/13/2024, 0:32. FINDINGS: Image quality: Diagnostic. Lower Chest: No significant findings. ABDOMEN: Liver: Capsular scalloping consistent with cirrhosis. No intrinsic mass lesion. Patent portal vein Gallbladder: No radiopaque gallstones or wall thickening. Biliary ducts: No biliary dilation. Pancreas: No ductal dilation. Spleen: Size is within normal limits. Adrenal Glands: No adrenal nodules. Kidneys and Ureters: No hydronephrosis. No solid mass. No complex renal cystic lesion which requires follow up. Right hepatic cyst Stomach and Bowel: Normal colonic caliber, without significant wall thickening. Multiple diverticula arise from the sigmoid colon without evidence of diverticulitis. Malrotation noted. Moderate rectal wall thickening Peritoneum: No abnormal intraperitoneal fluid. No free air. Ventral Wall: No significant ventral hernia. Abdominal Nodes: No retroperitoneal or mesenteric adenopathy by size criteria. Vessels: Aortic atherosclerotic vascular calcification noted without evidence of aneurysm. PELVIS: Pelvic Organs: Fiducial markers noted in the prostate Bladder: No bladder wall thickening, accounting for underdistention. Pelvic Nodes: No enlarged lymph nodes. Miscellaneous: No inguinal hernias are seen. Bones: No aggressive osseous abnormality. IMPRESSION: Moderate rectal wall thickening and prostate fiducial markers. Differential would include proctitis and wall thickening from prior cancer treatment if any history exists. Otherwise, no acute CT findings in the abdomen and pelvis. Stable hepatic cirrhosis, bowel malrotation and sigmoid diverticulosis Approved by: Randy Willard M.D. on 12/16/2024 at 13:20 ECG Data Attestation: I personally reviewed and interpreted this ECG as follows: Interpretation: 1112, Normal sinus rhythm with rate of 63, no obvious ST segment elevation or depression changes. DE 130, QRS 68, QTC 499 prolonged. 1541, normal sinus rhythm with rate of 76, no obvious ST segment elevation or depression changes. DE 174, QRS 76, QTC 490 mildly prolonged. MDM Narrative Medical decision making narrative: 69-year-old male with history of diabetes, chronic Eliquis anticoagulation for paroxysmal atrial fibrillation, with recent admission for nausea and vomiting and dehydration, now with nausea vomiting diarrhea and suspected dehydration. Unable to keep orals. Labs sent. IV fluid bolus. IV Dilaudid. Screening EKG with increased QTC noted, we will avoid Zofran for now, IV Reglan/Benadryl. Nausea improved, still with abdominal pain. CT abdomen and pelvis ordered. Stool studies ordered if a specimen is produced. Mag serum level 1.1 low, IV Magnesium. CT abdomen pelvis. Impressions: ?moderate rectal wall thickening and prostate fiducial markers. Differential would include proctitis and wall thickening from prior cancer treatment if any history exists. Otherwise, no acute CT findings in the abdomen and pelvis. Stable hepatic cirrhosis, bowel malrotation and sigmoid diverticulosis. ? see radiology report. Patient without specific rectal pain, unclear CT significance of rectal thickening. We will hold antibiotics pending discussion with PCP Dr Vasques, he feels persisting nausea, persisting abdominal pain, he is not feel like he can go home. Family requesting admission. We will contact PCP Dr. Vasques. 1530, case discussed with PCP Dr Vsaques who accepts patient for admission. Hold abx for now. We will repeat EKG to see if QTC has improved with IV magnesium, which might be helpful for further antiemetic treatment options. Accepted for admission. EKG repeat QTc 490ms decreased some from prior 499ms. Critical Care Time Critical Care Time Critical Care Time: Yes Total Critical Care Time: 35 Attestation: The high probability of a clinically significant, sudden or life threatening deterioration of the [gastrointestinal, metabolic, cardiopulmonary] system(s) required my full and direct attention, intervention and personal management. The aggregate critical care time was [35] minutes. This time is in addition to time spent performing reported procedures but includes the following: [x] Data Review and interpretation [x] Patient assessment and monitoring of vital signs [x] Documentation [x] Medication orders and management Discharge Plan Departure Patient Disposition: Home Clinical Impression: Nausea and vomiting, Hypomagnesemia, History of diabetes mellitus, Abdominal pain
--- NOTE | 2024-12-16 11:27 | DI.CT.S_ITS ---
PROCEDURE: CT ABDOMEN PELVIS W CON INDICATIONS: abd pain TECHNIQUE: After the administration of intravenous contrast, axial sections acquired from the lung bases to the pubic symphysis. Coronal and sagittal reformats were performed. For radiation dose reduction, the following was used: automated exposure control, adjustment of mA and/or kV according to patient size. COMPARISON: [facility], CT, CT ABDOMEN PELVIS W CON, 09/14/2024, 16:47. [facility], CT, CT ABDOMEN PELVIS W CON, 12/13/2024, 0:32. FINDINGS: Image quality: Diagnostic. Lower Chest: No significant findings. ABDOMEN: Liver: Capsular scalloping consistent with cirrhosis. No intrinsic mass lesion. Patent portal vein Gallbladder: No radiopaque gallstones or wall thickening. Biliary ducts: No biliary dilation. Pancreas: No ductal dilation. Spleen: Size is within normal limits. Adrenal Glands: No adrenal nodules. Kidneys and Ureters: No hydronephrosis. No solid mass. No complex renal cystic lesion which requires follow up. Right hepatic cyst Stomach and Bowel: Normal colonic caliber, without significant wall thickening. Multiple diverticula arise from the sigmoid colon without evidence of diverticulitis. Malrotation noted. Moderate rectal wall thickening Peritoneum: No abnormal intraperitoneal fluid. No free air. Ventral Wall: No significant ventral hernia. Abdominal Nodes: No retroperitoneal or mesenteric adenopathy by size criteria. Vessels: Aortic atherosclerotic vascular calcification noted without evidence of aneurysm. PELVIS: Pelvic Organs: Fiducial markers noted in the prostate Bladder: No bladder wall thickening, accounting for underdistention. Pelvic Nodes: No enlarged lymph nodes. Miscellaneous: No inguinal hernias are seen. Bones: No aggressive osseous abnormality. IMPRESSION: Moderate rectal wall thickening and prostate fiducial markers. Differential would include proctitis and wall thickening from prior cancer treatment if any history exists. Otherwise, no acute CT findings in the abdomen and pelvis. Stable hepatic cirrhosis, bowel malrotation and sigmoid diverticulosis Approved by: Randy Willard M.D. on 12/16/2024 at 13:20
[2024-12-16] MEDS: SODIUM CHLORIDE 0.9% 1,000 ML 1000 ML IV (11:32)
[2024-12-16] MEDS: HYDROMORPHONE 0.5 MG INJ IV ×2 (11:33→13:55)
[2024-12-16] MEDS: METOCLOPRAMIDE 10 MG/2 ML INJ IV (11:33)
[2024-12-16] MEDS: diphenhydrAMINE 50 MG/ML VIAL 25 MG IV (11:33)
[2024-12-16 11:42] LABS: Add Manual Diff / Slide Review NO; Basophils Absolute Auto 0 /uL (0-100); Basophils Percent Auto 0.4 % (0-2); Eosinophils Absolute Auto 0 /uL (0-450); Eosinophils Percent Auto 0.2 % (2-4); Hematocrit 37.2 % (41-53); Hemoglobin 13.3 g/dL (13.5-17.5); Lymphocytes Absolute Auto 500 /uL (1100-4500); Mean Corpuscular HGB Conc 35.6 % (30-36); Mean Corpuscular Volume 89.8 fL (80-100); Monocytes Absolute Auto 200 /uL (0-900); Monocytes Percent Auto 5.3 % (3-14); Neutrophils Absolute Auto 3300 /uL (1500-7000); Neutrophils Percent Auto 82.1 % (50-75); Platelet Count 132 X10^3/uL (150-400); Red Blood Cell Count 4.15 X10^6/uL (4.5-5.9); Red Cell Distribution Width 15.7 % (11.6-14.8); White Blood Cell Count 4.1 X10^3/uL (4.5-11.0)
[2024-12-16 11:47] LABS: INR 1.2 (0.9-1.3); Prothrombin Time 14.1 SECONDS (9.4-12.5)
[2024-12-16 11:50] LABS: PTT Partial Thromboplastin Tim 27 SECONDS (25.1-36.5)
[2024-12-16 11:51] LABS: Alanine Aminotransferase 74 IU/L (<50); Albumin Globulin Ratio 1.1 (1.0-2.8); Alkaline Phosphatase 120 U/L (38-126); Aspartate Aminotransferase 105 IU/L (17-59); BUN Creatinine Ratio 15.9 (6-22); Blood Urea Nitrogen 17 mg/dL (9-20); Calcium 9.6 mg/dL (8.4-10.2); Carbon Dioxide 23 mmol/L (22-32); Chloride 96 mmol/L (98-107); Creatine Kinase 68 U/L (55-170); Estimated Glomerular Filt Rate > 60 mL/min (>60); Globulin 4.4 g/dL (1.7-4.1); Glucose 219 mg/dL (80-110); Lipase 76 U/L (23-300); Magnesium 1.1 mg/dL (1.6-2.3); Potassium 3.9 mmol/L (3.4-5.1); Sodium 137 mmol/L (137-145); Total Protein 9.4 g/dL (6.3-8.2)
[2024-12-16 11:52] LABS: HEMOLYSIS 76 (0-50)
[2024-12-16 12:02] LABS: NT-proBNP (BNP-Adult 18+) 4090 pg/mL (<125); Troponin I < 0.012 ng/mL (0.01-0.034)
[2024-12-16] MEDS: MAGNESIUM SULFATE 2 GM/50 ML PIGGYBACK IV (12:15)
[2024-12-16 12:37] LABS: Lactate (Lactic Acid) 3.6 mmol/L (0.7-2.1)
[2024-12-16 13:12] LABS: Reflexed Lactate in 2 Hours Y
--- NOTE | 2024-12-16 15:41 | EKG_ITS ---
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
--- NOTE | 2024-12-16 16:09 | P.HP_ITS ---
History of Present Illness History of Present Illness Date Patient Seen: 12/16/24 Time Patient Seen: 16:09 Chief complaint: Nausea/Diarrhea Narrative: 69-year-old male very well known to me recently admitted with nausea vomiting and significant dehydration with a creatinine over 9. He presents again with nausea vomiting although normal renal function this time. Since prior hospitalization he was seen in the clinic and felt to be doing well with perhaps some evidence of volume overload and or fluid shifts after his fluid resuscitation due to his significant acute kidney injury prior. He has been taking Lasix at low-dose on a daily basis In any event, he had return of nausea and vomiting which he was a longstanding cyclic/intermittent problem for him. Really unable to keep orals down although apparently his this time kept his meds down ER evaluation was essentially unremarkable. Normal white blood cell count hemoglobin hematocrit down slightly from previous. As noted above creatinine normal and electrolytes okay. CT scan demonstrated changes in the rectum likely secondary to his prostate cancer and treatment of same. Patient admitted for symptom control, pain control, and IV fluids [facility] Medical History (Updated 12/16/24 @ 14:50 by Wilberto Beckett MD) Acute upper gastrointestinal bleeding Malignant neoplasm of prostate metastatic to bone Hypertensive urgency Colitis Hematuria Uncomplicated opioid dependence Generalized anxiety disorder Cannabis abuse Prostate cancer (~05/2019) Paroxysmal A-fib Transaminitis Kidney stones Diverticulosis of large intestine (03/31/12) Chronic hepatitis Coronary artery disease involving [place] coronary artery of [place] heart without angina pectoris (~2006) Essential hypertension Mixed hyperlipidemia Surgical History H/O heart artery stent (~2006) Hx of inguinal hernia surgery (~03/07/14) Hx of inguinal hernia surgery (~09/20/08) Status post laminectomy History of angioplasty (~12/2006) Social History marital status: unmarried,single number of children: 3 household members: caregiver lives independently: Yes caregiver/support person: No housing: house pets and animals: No education level: high school occupational status: other 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/mandaeism: None leisure activities: music, fishing and other Smoking Status: Current some day smoker Tobacco: How many years used: 56 Smokeless tobacco user: other quit status: has quit before second hand exposure: Yes (On farm[place]/Boat.) alcohol intake: former substance use type: does not use and marijuana eating out: rarely or never Type(s) of exercise: normal ROM and activity and additional Meds Home Medications and Allergies Home Medications Medication Instructions Recorded Confirmed Type promethazine 25 mg rectal 25 mg AK Q4-6H PRN nausea and 11/18/20 12/16/24 Rx suppository vomiting #12 ea tamsulosin 0.4 mg capsule 0.4 mg PO DAILY 09/15/21 12/16/24 History atorvastatin 80 mg tablet 80 mg PO BEDTIME 07/30/22 12/16/24 History metoprolol succinate 100 mg 100 mg PO BID #180 tabs 09/27/23 12/16/24 Rx tablet,extended release 24 hr apixaban 2.5 mg tablet (Eliquis) 2.5 mg PO BID 03/29/24 12/16/24 History clopidogrel 75 mg tablet 75 mg PO DAILY 03/29/24 12/16/24 History nitroglycerin 0.4 mg sublingual 0.4 mg sublingual Q5-15M PRN Chest 03/29/24 12/16/24 History tablet Pain ondansetron HCl 4 mg tablet 4 mg PO Q8H PRN Nausea And Vomiting 03/29/24 12/16/24 History sennosides 8.6 mg tablet (senna) 8.6 mg PO DAILY constipation 03/29/24 12/16/24 History duloxetine 20 mg capsule,delayed 20 mg PO DAILY #90 caps 07/16/24 12/16/24 Rx release (Cymbalta) aspirin [Adult Low Dose Aspirin] 81 mg PO QAM 08/03/24 12/16/24 History morphine 10 mg/5 mL oral solution 10 mg (5 mL) PO Q6H PRN pain #100 08/07/24 12/16/24 Rx mL lisinopril 10 mg tablet 10 mg PO DAILY 08/19/24 12/16/24 History isosorbide mononitrate 30 mg 30 mg PO DAILY 08/21/24 12/16/24 History tablet,extended release 24 hr metformin 500 mg tablet 500 mg PO BID #180 tabs 09/17/24 12/16/24 Rx pantoprazole 40 mg tablet,delayed 40 mg PO BID #60 tabs 12/09/24 12/16/24 Rx release morphine 15 mg immediate release 7.5 - 15 mg (0.5 - 1 x 15 mg) PO 12/14/24 12/16/24 Rx tablet Q3H PRN chest pain/bone pain #150 tabs hydrocodone 5 mg-acetaminophen 325 1 tab PO Q6H PRN pain #14 tabs 12/16/24 Rx mg tablet methocarbamol 500 mg tablet 500 mg PO TID 7 days #21 tabs 12/16/24 Rx methylprednisolone 4 mg tablets in See Rx Instructions PO .COMPLEX 12/16/24 Rx a dose pack (Medrol (Justice)) #21 ea naproxen 500 mg tablet 500 mg PO BID 7 days #14 tabs 12/16/24 Rx Allergies Allergy/AdvReac Type Severity Reaction Status Date / Time No Known Drug Allergies Allergy Verified 12/14/24 10:27 Review of Systems Review of Systems ROS: Yes All systems reviewed with the patient and are negative except as otherwise documented Exam Vital Signs (past 8 hours): - 12/16/24 11:05 12/16/24 11:14 12/16/24 11:30 Temperature 98.5 F Pulse Rate 65 64 Respiratory Rate 16 16 Blood Pressure 210/117 H 214/106 H Pulse Oximetry 98 100 Oxygen Delivery Method Room Air Room Air 12/16/24 11:30 12/16/24 12:05 12/16/24 12:30 Temperature Pulse Rate 65 75 79 Respiratory Rate 19 23 Blood Pressure Pulse Oximetry 99 98 97 Oxygen Delivery Method Oxygen Delivery Method Room Air Narrative Exam Narrative: Much older than stated age appearing male somewhat pale in no obvious distress lying in hospital bed HEENT-unremarkable Lungs-clear Heart-regular rate and rhythm Abdomen-positive bowel tones soft no rebound guarding no real tenderness Extremities-no cyanosis clubbing or edema Objective Labs 12/17/24 06:13 12/17/24 06:13 Labs: Laboratory Results - last 24 hr 12/16/24 12/16/24 11:27 13:23 WBC 4.1 L RBC 4.15 L Hgb 13.3 L Hct 37.2 L MCV 89.8 MCH 32.0 MCHC 35.6 RDW 15.7 H Plt Count 132 L Neut % (Auto) 82.1 H Lymph % (Auto) 12.0 L [place] % (Auto) 5.3 Eos % (Auto) 0.2 L Baso % (Auto) 0.4 Neut # (Auto) 3300 Lymph # (Auto) 500 L [place] # (Auto) 200 Eos # (Auto) 0 Baso # (Auto) 0 PT 14.1 H INR 1.2 APTT 27 Sodium 137 Potassium 3.9 Chloride 96 L Carbon Dioxide 23 BUN 17 Creatinine 1.07 Estimated GFR > 60 BUN/Creatinine Ratio 15.9 Glucose 219 H Lactate 3.6 H 3.0 H Calcium 9.6 Magnesium 1.1 L Total Bilirubin 2.0 H AST 105 H ALT 74 H Alkaline Phosphatase 120 D Total Creatine Kinase 68 Troponin I < 0.012 NT-Pro-B Natriuret Pep 4090 H Total Protein 9.4 H Albumin 5.0 Globulin 4.4 H Albumin/Globulin Ratio 1.1 Lipase 76 D Assessment & Plan Assessment & Plan narrative: 1. Acute on chronic nausea vomiting-okay with 4 antiemetics. There was some concern about using ondansetron given his relatively prolonged QT but his QT is actually much shorter than usual for him and he has done well with ondansetron previously. I think in this situation is okay to use more likely to be beneficial than harmful given past history etcetera. Continue with low-grade IV fluids 2. Electrolytes/renal-patient with low magnesium given replacement in the emergency department. Continue monitor numbers. Renal function fortunately stable this time. Magnesium now normal as well. 3. Diabetes-I am going to hold his metformin given the elevated lactate level. Will use insulin for hyperglycemia. Carb consistent diet when taking more normal diet 4. Chronic pain-patient was chronic pain in part related to I am sure he was prostate cancer but various arthropathies. Patient chronically on morphine which will be continued here orally. IV hydromorphone as necessary as well 5. Paroxysmal AFib-continue patient's usual meds. Heart rate etcetera controlled. Currently in sinus rhythm. Has gone into AFib previously with some of these episodes 6. Coronary artery disease-continue usual meds no evidence of active coronary disease. Not felt to be an interventional candidate for any coronary disease in any event 7. Generalized anxiety disorder-continue patient's usual medications 8. Chronic hepatitis-this explains his elevated LFTs which is always seen. Not really any different than usual 9. VTE prophylaxis-patient chronic anticoagulated for AFib as above which will suffice for VTE prophylaxis 9. Code status-patient has been very very clear in the past that he would not want to be resuscitated in the event of a sudden cardiac or respiratory arrest in his fully willing to accept such an event as his terminal event. Therefore he was certainly a Do Not Resuscitate for the purposes this hospitalization Time-Based Coding :: [TOTAL MINUTES] spent with patient and on the chart (including review of chart, obtaining history, exam, reviewing outside data, placing orders, documenting exam and treatment plan, and counseling patient) on [DATE]. PROFEE Computational Sciences Professor Document charge(s): Yes Charge Codes Initial inpatient/observation care: [id number]
[2024-12-16] MEDS: HYDROMORPHONE 0.5 MG INJ 1 MG IV ×2 (17:39→21:36)
--- NOTE | 2024-12-16 18:00 | CM.MNRNOTE ---
Patient admitted for nausea and pain. He has prostate cancer with mets to the bone. He was just given dilaudid 1mg iv and he will be on ivf NS at 80cc/hr. He is alert and oriented x4. BS cta, he is on room air. S.O. just went home for the night. Patient is more comfortable after pain medication given.
[2024-12-16] MEDS: SODIUM CHLORIDE 0.45% 1,000 ML 80 ML IV (18:47)
--- NOTE | 2024-12-16 19:16 | PC.NURSE ---
Patients blood pressure with systolic in the 200s, he was in pain. Given dilaudid and rechecked patients blood pressure down to 155/87. He is admitted for nausea and pain. Patient has prostate cancer with mets to the bone. He is DNR and is resting comfortably. He refused his dinner insulin and wants to start that this evening. Patient does not need another lactate drawn, asked he knows that it is 3.0
[2024-12-16] MEDS: METOCLOPRAMIDE 10 MG/2 ML INJ 5 MG IV (21:36)
[2024-12-16] MEDS: INSULIN LISPRO 100 UNIT/ML 3ML VIAL SUBCUT (21:43)
[2024-12-16] MEDS: METOPROLOL ER 50 MG TABLET 100 MG PO (21:56)
[2024-12-16] MEDS: PANTOPRAZOLE DR 20 MG TABLET PO (21:56)
[2024-12-16] MEDS: APIXABAN 5 MG TABLET 2.5 MG PO (21:56)
[2024-12-17] VITALS (8 sets, daily range): BP systolic 129–209; BP diastolic 73–122; PULSE 54–66; RESP 12–18; TEMP 35.9–36.4; O2SAT 97–99
[2024-12-17] MEDS: HYDROMORPHONE 0.5 MG INJ 1 MG IV ×7 (00:07→23:14)
[2024-12-17] MEDS: SODIUM CHLORIDE 0.45% 1,000 ML 80 ML IV (06:00)
[2024-12-17] MEDS: ISOSORBIDE MONONITRATE ER 30 MG TABLET PO (06:07)
[2024-12-17] MEDS: MORPHINE IR 15 MG TABLET PO (06:07)
[2024-12-17] MEDS: PANTOPRAZOLE DR 20 MG TABLET PO ×2 (06:07→20:58)
[2024-12-17 06:25] LABS: Add Manual Diff / Slide Review NO; Basophils Absolute Auto 0 /uL (0-100); Basophils Percent Auto 0.4 % (0-2); Eosinophils Absolute Auto 100 /uL (0-450); Eosinophils Percent Auto 1.6 % (2-4); Hematocrit 33.8 % (41-53); Hemoglobin 11.9 g/dL (13.5-17.5); Lymphocytes Absolute Auto 1200 /uL (1100-4500); Lymphocytes Percent Auto 21.4 % (25-40); Mean Corpuscular HGB Conc 35.1 % (30-36); Mean Corpuscular Hemoglobin 31.5 PG (26-34); Mean Corpuscular Volume 89.6 fL (80-100); Monocytes Absolute Auto 700 /uL (0-900); Monocytes Percent Auto 13.3 % (3-14); Neutrophils Absolute Auto 3400 /uL (1500-7000); Neutrophils Percent Auto 63.3 % (50-75); Platelet Count 134 X10^3/uL (150-400); Red Blood Cell Count 3.77 X10^6/uL (4.5-5.9); White Blood Cell Count 5.4 X10^3/uL (4.5-11.0)
[2024-12-17 06:37] LABS: Alanine Aminotransferase 57 IU/L (<50); Albumin 4.1 g/dL (3.5-5.0); Albumin Globulin Ratio 1.2 (1.0-2.8); Alkaline Phosphatase 103 U/L (38-126); Aspartate Aminotransferase 72 IU/L (17-59); BUN Creatinine Ratio 13.7 (6-22); Blood Urea Nitrogen 13 mg/dL (9-20); Calcium 9.1 mg/dL (8.4-10.2); Carbon Dioxide 29 mmol/L (22-32); Chloride 98 mmol/L (98-107); Estimated Glomerular Filt Rate > 60 mL/min (>60); Globulin 3.3 g/dL (1.7-4.1); Glucose 145 mg/dL (80-110); HEMOLYSIS < 15 (0-50); Magnesium 1.8 mg/dL (1.6-2.3); Potassium 3.1 mmol/L (3.4-5.1); Sodium 137 mmol/L (137-145); Total Protein 7.4 g/dL (6.3-8.2)
[2024-12-17] MEDS: METOCLOPRAMIDE 10 MG/2 ML INJ 5 MG IV (07:23)
[2024-12-17] MEDS: INSULIN LISPRO 100 UNIT/ML 3ML VIAL SUBCUT ×2 (07:42→12:01)
--- NOTE | 2024-12-17 07:44 | PM.PN.IH.1 ---
Subjective Subjective Date Patient Seen: 12/17/24 Time Patient Seen: 07:44 Interval history: Patient reports feeling some better than he did upon admission. Still having quite a bit of nausea does not think he was going to be able to really take anything oral today including his medications Blood pressure jumping up in part due to pain but probably also due to his lack of medication Exam Vital Signs (past 8 hours): - 12/17/24 04:16 Temperature 97.1 F L Pulse Rate 57 L Respiratory Rate 16 Blood Pressure 159/92 H Pulse Oximetry 99 Oxygen Flow Rate 0 Oxygen Delivery Method Room Air Oxygen Flow Rate 0 Objective Labs 12/17/24 06:13 12/17/24 06:13 Labs: Laboratory Results - last 24 hr 12/16/24 12/16/24 12/17/24 11:27 13:23 06:13 WBC 4.1 L 5.4 RBC 4.15 L 3.77 L Hgb 13.3 L 11.9 L Hct 37.2 L 33.8 L MCV 89.8 89.6 MCH 32.0 31.5 MCHC 35.6 35.1 RDW 15.7 H 16.0 H Plt Count 132 L 134 L Neut % (Auto) 82.1 H 63.3 Lymph % (Auto) 12.0 L 21.4 L [place] % (Auto) 5.3 13.3 Eos % (Auto) 0.2 L 1.6 L Baso % (Auto) 0.4 0.4 Neut # (Auto) 3300 3400 Lymph # (Auto) 500 L 1200 [place] # (Auto) 200 700 Eos # (Auto) 0 100 Baso # (Auto) 0 0 PT 14.1 H INR 1.2 APTT 27 Sodium 137 137 Potassium 3.9 3.1 L Chloride 96 L 98 Carbon Dioxide 23 29 BUN 17 13 Creatinine 1.07 0.95 Estimated GFR > 60 > 60 BUN/Creatinine Ratio 15.9 13.7 Glucose 219 H 145 H Lactate 3.6 H 3.0 H Calcium 9.6 9.1 Magnesium 1.1 L 1.8 Total Bilirubin 2.0 H 1.0 AST 105 H 72 H ALT 74 H 57 H Alkaline Phosphatase 120 D 103 Total Creatine Kinase 68 Troponin I < 0.012 NT-Pro-B Natriuret Pep 4090 H Total Protein 9.4 H 7.4 Albumin 5.0 4.1 Globulin 4.4 H 3.3 Albumin/Globulin Ratio 1.1 1.2 Lipase 76 D [facility] Medical History (Updated 12/16/24 @ 14:50 by Wilberto Beckett MD) Acute upper gastrointestinal bleeding Malignant neoplasm of prostate metastatic to bone Hypertensive urgency Colitis Hematuria Uncomplicated opioid dependence Generalized anxiety disorder Cannabis abuse Prostate cancer (~05/2019) Paroxysmal A-fib Transaminitis Kidney stones Diverticulosis of large intestine (03/31/12) Chronic hepatitis Coronary artery disease involving [place] coronary artery of [place] heart without angina pectoris (~2006) Essential hypertension Mixed hyperlipidemia Surgical History H/O heart artery stent (~2006) Hx of inguinal hernia surgery (~03/07/14) Hx of inguinal hernia surgery (~09/20/08) Status post laminectomy History of angioplasty (~12/2006) Social History marital status: unmarried,single number of children: 3 household members: caregiver lives independently: Yes caregiver/support person: No housing: house pets and animals: No education level: high school occupational status: other 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 Acute on chronic nausea vomiting-continue to treat with antiemetics and continue to challenge with some limited oral intake. Really would be helpful to get his antihypertensives and cardiac meds least into him. 2. Electrolytes/renal-patient with low magnesium given replacement in the emergency department. Continue monitor numbers. Renal function fortunately stable this time. Magnesium now normal as well. 3. Diabetes-I am going to hold his metformin given the elevated lactate level. Will use insulin for hyperglycemia. Carb consistent diet when taking more normal diet 4. Chronic pain-patient was chronic pain in part related to I am sure he was prostate cancer but various arthropathies. Patient chronically on morphine which will be continued here orally. IV hydromorphone as necessary as well 5. Paroxysmal AFib-continue patient's usual meds. Heart rate etcetera controlled. Currently in sinus rhythm. Has gone into AFib previously with some of these episodes 6. Coronary artery disease-continue usual meds no evidence of active coronary disease. Not felt to be an interventional candidate for any coronary disease in any event 7. Generalized anxiety disorder-continue patient's usual medications, hopefully he can take orals more successfully later today Time-Based Coding :: [TOTAL MINUTES] spent with patient and on the chart (including review of chart, obtaining history, exam, reviewing outside data, placing orders, documenting exam and treatment plan, and counseling patient) on [DATE]. Quality VTE Deep Vein Thrombosis/Pulmonary Embolism Present on Admission: No PROFEE Event Organizer Document charge(s): Yes Charge Codes Subsequent inpatient/observation care: [id number]
[2024-12-17] MEDS: POTASSIUM CHLORIDE IN WATER 10 MEQ/100 ML PIGGYBACK 100 MEQ IV ×2 (09:29→11:12)
[2024-12-17] MEDS: APIXABAN 5 MG TABLET 2.5 MG PO ×2 (09:30→20:13)
[2024-12-17] MEDS: DULOXETINE 20 MG CAPSULE PO (09:30)
[2024-12-17] MEDS: CLOPIDOGREL 75 MG TABLET PO (09:30)
[2024-12-17] MEDS: METOPROLOL ER 50 MG TABLET 100 MG PO ×2 (09:30→20:05)
[2024-12-17] MEDS: TAMSULOSIN 0.4 MG CAPSULE PO (09:33)
--- NOTE | 2024-12-17 10:58 | PC.NURSE ---
Patient given nausea medication x1, he was also given dilaudid x2 for complaints of discomfort and this has been helpful to him. He is getting potassium iv x4 for low K of 3.1. He is resting on his r.side now and is comfortable. BS 145, 1u of insulin given. Tolerated po medications well.
[2024-12-17] MEDS: POTASSIUM CHLORIDE IN WATER 10 MEQ/100 ML PIGGYBACK 60 MEQ IV ×2 (13:02→14:57)
--- NOTE | 2024-12-17 16:34 | CM.DPNOTE ---
DCP note DOCUMENTATION ANALYST reviewed EMR pt is a readmit. here with N/V. likely here a few days. DOCUMENTATION ANALYST unable to complete comprehensive DCP assessment today, will follow up with pt/family as soon as possible Tuesday for initial DCP needs assessment. JAYME Andrade
[2024-12-17] MEDS: ATORVASTATIN 20 MG TABLET 80 MG PO (20:05)
[2024-12-18] VITALS (8 sets, daily range): BP systolic 123–159; BP diastolic 75–94; PULSE 58–88; RESP 12–20; TEMP 35.9–37.3; O2SAT 95–100
[2024-12-18] MEDS: SODIUM CHLORIDE 0.45% 1,000 ML 80 ML IV (01:06)
[2024-12-18] MEDS: ONDANSETRON 4 MG/2 ML INJ IV ×2 (04:16→11:49)
[2024-12-18] MEDS: MORPHINE IR 15 MG TABLET PO ×4 (04:16→18:51)
[2024-12-18 06:08] LABS: Add Manual Diff / Slide Review NO; Basophils Absolute Auto 0 /uL (0-100); Basophils Percent Auto 0.6 % (0-2); Eosinophils Absolute Auto 200 /uL (0-450); Hematocrit 33.3 % (41-53); Hemoglobin 11.9 g/dL (13.5-17.5); Lymphocytes Absolute Auto 700 /uL (1100-4500); Lymphocytes Percent Auto 19.9 % (25-40); Mean Corpuscular HGB Conc 35.6 % (30-36); Mean Corpuscular Hemoglobin 31.8 PG (26-34); Mean Corpuscular Volume 89.2 fL (80-100); Monocytes Absolute Auto 400 /uL (0-900); Neutrophils Absolute Auto 2300 /uL (1500-7000); Neutrophils Percent Auto 62.5 % (50-75); Platelet Count 116 X10^3/uL (150-400); Red Blood Cell Count 3.73 X10^6/uL (4.5-5.9); Red Cell Distribution Width 16.1 % (11.6-14.8); White Blood Cell Count 3.6 X10^3/uL (4.5-11.0)
[2024-12-18 06:19] LABS: Alanine Aminotransferase 74 IU/L (<50); Albumin 3.8 g/dL (3.5-5.0); Albumin Globulin Ratio 1.3 (1.0-2.8); Alkaline Phosphatase 88 U/L (38-126); Aspartate Aminotransferase 111 IU/L (17-59); BUN Creatinine Ratio 14.8 (6-22); Bilirubin Total 0.9 mg/dL (0.2-1.3); Blood Urea Nitrogen 13 mg/dL (9-20); Calcium 9.1 mg/dL (8.4-10.2); Carbon Dioxide 25 mmol/L (22-32); Chloride 101 mmol/L (98-107); Estimated Glomerular Filt Rate > 60 mL/min (>60); Globulin 2.9 g/dL (1.7-4.1); Glucose 214 mg/dL (80-110); HEMOLYSIS < 15 (0-50); Potassium 3.4 mmol/L (3.4-5.1); Sodium 135 mmol/L (137-145); Total Protein 6.7 g/dL (6.3-8.2)
[2024-12-18] MEDS: ISOSORBIDE MONONITRATE ER 30 MG TABLET PO (06:24)
[2024-12-18] MEDS: PANTOPRAZOLE DR 20 MG TABLET PO ×2 (06:24→20:55)
[2024-12-18] MEDS: SODIUM CHLORIDE 0.9% FLUSH 10 ML IV (06:27)
[2024-12-18] MEDS: INSULIN LISPRO 100 UNIT/ML 3ML VIAL SUBCUT (07:35)
--- NOTE | 2024-12-18 07:43 | PM.PN.IH.1 ---
Subjective Subjective Date Patient Seen: 12/18/24 Time Patient Seen: 07:43 Interval history: Essentially unremarkable day and night yesterday. Blood pressure up and down as usual Blood sugar adequately controlled Patient says his stomach is feeling better. Pain very well controlled and nausea is absent. Able to take his meds and his breakfast tray looks to be well consumed (full liquids) Exam Vital Signs (past 8 hours): - 12/18/24 00:21 12/18/24 04:00 Temperature 97.2 F L 97.6 F Pulse Rate 58 L 62 Respiratory Rate 16 20 Blood Pressure 136/87 159/94 H Pulse Oximetry 95 100 Oxygen Flow Rate 0 0 Oxygen Delivery Method Room Air Oxygen Flow Rate 0 Objective Labs 12/18/24 06:00 12/18/24 06:00 Labs: Laboratory Results - last 24 hr 12/18/24 06:00 WBC 3.6 L RBC 3.73 L Hgb 11.9 L Hct 33.3 L MCV 89.2 MCH 31.8 MCHC 35.6 RDW 16.1 H Plt Count 116 L Neut % (Auto) 62.5 Lymph % (Auto) 19.9 L [place] % (Auto) 11.0 Eos % (Auto) 6.0 H Baso % (Auto) 0.6 Neut # (Auto) 2300 Lymph # (Auto) 700 L [place] # (Auto) 400 Eos # (Auto) 200 Baso # (Auto) 0 Sodium 135 L Potassium 3.4 Chloride 101 Carbon Dioxide 25 BUN 13 Creatinine 0.88 Estimated GFR > 60 BUN/Creatinine Ratio 14.8 Glucose 214 H Calcium 9.1 Total Bilirubin 0.9 AST 111 H ALT 74 H Alkaline Phosphatase 88 Total Protein 6.7 Albumin 3.8 Globulin 2.9 Albumin/Globulin Ratio 1.3 [facility] Medical History (Updated 12/16/24 @ 14:50 by Wilberto Beckett MD) Acute upper gastrointestinal bleeding Malignant neoplasm of prostate metastatic to bone Hypertensive urgency Colitis Hematuria Uncomplicated opioid dependence Generalized anxiety disorder Cannabis abuse Prostate cancer (~05/2019) Paroxysmal A-fib Transaminitis Kidney stones Diverticulosis of large intestine (03/31/12) Chronic hepatitis Coronary artery disease involving [place] coronary artery of [place] heart without angina pectoris (~2006) Essential hypertension Mixed hyperlipidemia Surgical History H/O heart artery stent (~2006) Hx of inguinal hernia surgery (~03/07/14) Hx of inguinal hernia surgery (~09/20/08) Status post laminectomy History of angioplasty (~12/2006) Social History marital status: unmarried,single number of children: 3 household members: caregiver lives independently: Yes caregiver/support person: No housing: house pets and animals: No education level: high school occupational status: other 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 Acute on chronic nausea vomiting-continue to treat with antiemetics and continue to challenge with some limited oral intake. Really would be helpful to get his antihypertensives and cardiac meds least into him. Advance diet as able 2. Electrolytes/renal-numbers look good this morning. I think we can DC IV fluids at this time 3. Diabetes-adequate control of blood sugars for now on the insulin. Will see how he does as we advance his diet. Maybe he would do better without the metformin in the future given the persistent lactic acidosis that is seems to be present (although I am not sure about this) 4. Chronic pain-patient was chronic pain in part related to I am sure he was prostate cancer but various arthropathies. Patient chronically on morphine which will be continued here orally. IV hydromorphone as necessary as well 5. Paroxysmal AFib-continue patient's usual meds. Heart rate etcetera controlled. Currently in sinus rhythm. Has gone into AFib previously with some of these episodes 6. Coronary artery disease-continue usual meds no evidence of active coronary disease. Not felt to be an interventional candidate for any coronary disease in any event 7. Generalized anxiety disorder-continue patient's usual medications, hopefully we can get him back on his meds consistently 8. Disposition-patient will be returning home when improved from a GI standpoint as above, probably as early as tomorrow Time-Based Coding :: [TOTAL MINUTES] spent with patient and on the chart (including review of chart, obtaining history, exam, reviewing outside data, placing orders, documenting exam and treatment plan, and counseling patient) on [DATE]. Quality VTE Deep Vein Thrombosis/Pulmonary Embolism Present on Admission: No IH PROFEE Ironer Or Presser Document charge(s): Yes Charge Codes Subsequent inpatient/observation care: [id number]
[2024-12-18] MEDS: TAMSULOSIN 0.4 MG CAPSULE PO (09:01)
[2024-12-18] MEDS: DULOXETINE 20 MG CAPSULE PO (09:01)
[2024-12-18] MEDS: METOPROLOL ER 50 MG TABLET 100 MG PO ×2 (09:01→20:52)
[2024-12-18] MEDS: CLOPIDOGREL 75 MG TABLET PO (09:01)
[2024-12-18] MEDS: APIXABAN 5 MG TABLET 2.5 MG PO ×2 (09:02→20:53)
[2024-12-18] MEDS: POTASSIUM CHLORIDE 20 MEQ TAB 40 MEQ PO (10:20)
--- NOTE | 2024-12-18 13:14 | DIET.CONS ---
Dietary Consultation Note Admission Date: 12/18/2024 08:25 Assessment: 69 y M admitted for N/V. Dietitian screened for low MNA. Pt has prostate cancer with mets to the bone. Hx of cyclic N/V and DM with last A1c 6.0% on 07/16/24. Met with pt at bedside. Diet advanced from fulls to general for lunch. Pt reports eating almost 100% of tray and tolerating meal well. Does report decrease in solid food consume and appetite for last few weeks, but feels it is improved today. Ht: 170.18 cm Wt: 63.503 kg BMI: 21.9 UBW: 58.513 kg on 11/30/24, 65.402 kg on 11/02/24 (-3% weight loss in 2 months, non-severe), 65.487 kg on 03/29/24 Last BM: 12/15/24 (12/16/24 15:54) MNA: 9 Armando Score: 17 Diet: 12/18/24 Lunch Carbohydrate Consistent Diet Diet Modifications: Carbohydrate level: Medium (3 CHO) Bedtime snack: No Reflex DM orders: No Food Texture: Level 7 - Regular Liquid Consistency: Level 0 - Thin Labs: RBC 3.73 X10^6/uL (4.5-5.9) L 12/18/24 06:00 Hgb 11.9 g/dL (13.5-17.5) L 12/18/24 06:00 Hct 33.3 % (41-53) L 12/18/24 06:00 Creatinine 0.88 mg/dL (0.66-1.25) 12/18/24 06:00 Lactate 3.0 mmol/L (0.7-2.1) H 12/16/24 13:23 NT-Pro-B Natriuret Pep 4090 pg/mL (<125) H 12/16/24 11:27 Nutrition Diagnosis: Inadequate oral intake related to nausea/vomiting aeb pt with periods of abd pain, N/V causing reduced PO intakes Interventions: -Monitor PO intakes, encouraged caloric/nutrient dense snacks/ONS during day and before bed Monitoring/Evaluations: po intakes Electronically Signed by: Lacy Ortega 12/18/24 13:14 Clinical Dietitian [address] [id number]
--- NOTE | 2024-12-18 16:56 | CM.DANOTE ---
DCP Assessment note pt is a 69yo M admitted under OBS, switched to INPT 12/18, admitted with N/V. pt is a readmit. hx of metastatic prostate cancer, hypertension, diabetes, Afib, and chronic pain PCP [facility] P[employer] Medicare and commercial ins RUBBER COMPOUNDER reviewed EMR per chart, pt lives in [place] alone. has a CG 4hrs/day, neighbors to assist him as needed as well. pt is currently 1PA with walker, RN reports this is pt's baseline,. per RN, tolerating diet today no vomiting. a bit nauseated this morning. per chart, pt denied HNW last admission. no hx of HH per chart review. No new CM needs identified at this time. anticipate return home with CG support when medically stable. per provider PN, potentially as early as tomorrow. Will continue to follow closely in case any DCP needs arise JAYME Andrade Discharge Planning/Care Management CM Discharge Assessment Start: 12/18/24 16:55 Freq: Status: Active Protocol: Document 12/18/24 16:55 SL (Rec: 12/18/24 16:56 SL Desktop) Discharge Planning Assessment Assigned Cold Water Machine Operator JAYME Ocampo DPOA/Assigned Designee Name LisandraSMOOTH garcia Contact Information [phone] Advance Directives? Yes: POLST Advance Directives on File No History Provided By Patient,Medical Record Prior Living Arrangements House Household Members caregiver Type of transporation used prior to Relies on Others admit Is patient alert and oriented? Yes Needs Assistance With Meal Prep,Home Chores / Shopping Comment CG assists with ADLs as needed Comment Patient's friends Peg and Lisandra assist him throughout the week with meds, ADLs, transportation Discharge Plan Home Transportation Arrangement Patient reports that Lisandra can pick him up at time of d/c . Referrals Initiated None needed Additional Comment Pending If patient plan is home with home health No : Has signed face to face form been completed? Review Status In Process Please Provide Date Initial DC 12/18/24 Assessment Was Performed Next Review Type Continued Stay Review
[2024-12-18] MEDS: ATORVASTATIN 20 MG TABLET 80 MG PO (20:52)
[2024-12-19] MEDS: MORPHINE IR 15 MG TABLET PO ×3 (01:06→10:47)
[2024-12-19 01:16] VITALS: BP 142/80; PULSE 64; RESP 16; TEMP 36.8; O2SAT 97
[2024-12-19] MEDS: ONDANSETRON 4 MG/2 ML INJ IV (05:59)
[2024-12-19 06:02] LABS: BUN Creatinine Ratio 15.4 (6-22); Blood Urea Nitrogen 16 mg/dL (9-20); Carbon Dioxide 26 mmol/L (22-32); Chloride 105 mmol/L (98-107); Estimated Glomerular Filt Rate > 60 mL/min (>60); Glucose 131 mg/dL (80-110); HEMOLYSIS < 15 (0-50); Magnesium 1.8 mg/dL (1.6-2.3); Potassium 4.2 mmol/L (3.4-5.1); Sodium 135 mmol/L (137-145)
[2024-12-19] MEDS: PANTOPRAZOLE DR 20 MG TABLET PO (06:02)
--- NOTE | 2024-12-19 07:20 | PM.DS.IH.1 ---
History of Present Illness History of Present Illness Date Patient Seen: 12/19/24 Time Patient Seen: 07:20 Chief complaint: Nausea/Diarrhea Narrative: 69-year-old male very well known to me recently admitted with nausea vomiting and significant dehydration with a creatinine over 9. He presents again with nausea vomiting although normal renal function this time. Since prior hospitalization he was seen in the clinic and felt to be doing well with perhaps some evidence of volume overload and or fluid shifts after his fluid resuscitation due to his significant acute kidney injury prior. He has been taking Lasix at low-dose on a daily basis In any event, he had return of nausea and vomiting which he was a longstanding cyclic/intermittent problem for him. Really unable to keep orals down although apparently his this time kept his meds down ER evaluation was essentially unremarkable. Normal white blood cell count hemoglobin hematocrit down slightly from previous. As noted above creatinine normal and electrolytes okay. CT scan demonstrated changes in the rectum likely secondary to his prostate cancer and treatment of same. Patient admitted for symptom control, pain control, and IV fluids Discharge Providers Provider Date of admission: 12/18/24 08:25 Discharge Date: 12/19/24 Primary care physician: Khang Vasques MD Discharge provider: Khang Vasques MD Summary Hospital Course Discharge Diagnosis: 1. Intractable nausea and vomiting 2. Diabetes type 2 3. Essential hypertension 4. Malignant neoplasm of prostate metastatic to bone 5. Mixed hyperlipidemia 6. Paroxysmal atrial fibrillation 7. Generalized anxiety disorder 9. Coronary artery disease not amenable to invasive interventions, on medical therapy only Hospital Course: Patient was admitted as above with return of nausea vomiting and abdominal pain. Plus-minus evidence of colitis in this case maybe proctitis which he has been seen previously. Patient treated conservatively with antiemetics IV fluids and kept NPO initially and then diet slowly advanced. With these interventions patient's symptoms rapidly improved and he was felt to be back to baseline by morning of discharge. Vital signs remained relatively stable with some intermittent mild hypertension. No evidence of rhythm disturbance. No evidence of untreated infectious etiology causing the minimal colonic changes seen on CT (which have been seen multiple times in the past and have not proven on endoscopy or other evaluation to the significant disease) Patient's diabetes was adequately controlled Patient's renal function remained stable during this hospitalization noting that during previous hospitalization he had quite the acute kidney injury with a creatinine of over 9, but no evidence of that kind of injury with this presentation or hospitalization Patient will be discharged home to resume his usual medications although I am going to advocate discontinuation of metformin given the persistent lactic acidosis that we see upon presentations, perhaps that is a contributing factor to his repetitive abdominal symptoms, and he was diabetes appears to be super well controlled probably does not require metformin at all, last A1c was 6.0 in July 2024 Exam Vital Signs (past 8 hours): - 12/19/24 01:16 Temperature 98.2 F Pulse Rate 64 Respiratory Rate 16 Blood Pressure 142/80 H Pulse Oximetry 97 Oxygen Flow Rate 0 Oxygen Delivery Method Room Air Oxygen Flow Rate 0 Objective Labs 12/18/24 06:00 12/19/24 05:43 Labs: Laboratory Results - last 24 hr 12/19/24 05:43 Sodium 135 L Potassium 4.2 Chloride 105 Carbon Dioxide 26 BUN 16 Creatinine 1.04 Estimated GFR > 60 BUN/Creatinine Ratio 15.4 Glucose 131 H Calcium 9.0 Magnesium 1.8 PFSH Medical History Acute upper gastrointestinal bleeding Malignant neoplasm of prostate metastatic to bone Hypertensive urgency Colitis Hematuria Uncomplicated opioid dependence Generalized anxiety disorder Cannabis abuse Prostate cancer (~05/2019) Paroxysmal A-fib Transaminitis Kidney stones Diverticulosis of large intestine (03/31/12) Chronic hepatitis Coronary artery disease involving [place] coronary artery of [place] heart without angina pectoris (~2006) Essential hypertension Mixed hyperlipidemia Surgical History H/O heart artery stent (~2006) Hx of inguinal hernia surgery (~03/07/14) Hx of inguinal hernia surgery (~09/20/08) Status post laminectomy History of angioplasty (~12/2006) Social History marital status: unmarried,single number of children: 3 household members: caregiver lives independently: Yes caregiver/support person: No housing: house pets and animals: No education level: high school occupational status: other 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/mandaen: None leisure activities: music, fishing and other Tobacco: How many years used: 56 Smokeless tobacco user: other quit status: has quit before second hand exposure: Yes (On farmland/Boat.) alcohol intake: former substance use type: does not use and marijuana eating out: rarely or never Type(s) of exercise: normal ROM and activity and additional Discharge Assessment & Plan Assessment and Plan Plan of Treatment: Discharge home on usual medications including his chronic narcotic therapy Patient will however hold and or discontinue his metformin Follow up with PCP in clinic within the next 14 days Discharge Plan Discharge Plan Patient Disposition: Home Discharge orders & Medications Prescriptions: Continued metoprolol succinate 100 mg tablet extended release 24 hr 100 mg PO BID Qty: 180 3RF duloxetine [Cymbalta] 20 mg capsule,delayed release(DR/EC) 20 mg PO DAILY Qty: 90 3RF morphine 10 mg/5 mL solution 10 mg PO Q6H PRN (Reason: pain) Qty: 100 0RF atorvastatin 80 mg tablet 80 mg PO BEDTIME Eliquis 2.5 mg tablet 2.5 mg PO BID clopidogrel 75 mg tablet 75 mg PO DAILY sennosides [senna] 8.6 mg tablet 8.6 mg PO DAILY nitroglycerin 0.4 mg tablet, sublingual 0.4 mg sublingual Q5-15M PRN (Reason: Chest Pain) ondansetron HCl 4 mg tablet 4 mg PO Q8H PRN (Reason: Nausea And Vomiting) morphine 15 mg tablet 7.5 - 15 mg PO Q3H MDD 90mg PRN (Reason: chest pain/bone pain) Qty: 150 0RF aspirin [Adult Low Dose Aspirin] 81 mg PO QAM isosorbide mononitrate 30 mg tablet extended release 24 hr 30 mg PO DAILY Patient Comments: Per Significant other Lisandra. tamsulosin 0.4 mg capsule 0.4 mg PO DAILY Patient Comments: take 1 capsule by mouth once daily lisinopril 10 mg tablet 10 mg PO DAILY promethazine 25 mg suppository 25 mg [place] Q4-6H PRN (Reason: nausea and vomiting) Qty: 12 0RF pantoprazole 40 mg tablet,delayed release (DR/EC) 40 mg PO BID Qty: 60 2RF Discontinued metformin 500 mg tablet 500 mg PO BID Qty: 180 3RF Medication counseling provided by Pharmacist: Yes Follow up/Referrals: Khang Vasques MD [Primary Care Provider] - 1 Week Discharge Health Status Multidrug resistant organism: No MDRO Diet/Activity/Treatments Diet: Diet as Tolerated and Carb-consistent/Diabetic Discharge Data Primary Care Provider: Khang Vasques VTE Deep Vein Thrombosis/Pulmonary Embolism Present on Admission: No IH PROFEE Charge Codes Discharge inpatient/observation: 40490
[2024-12-19] MEDS: ISOSORBIDE MONONITRATE ER 30 MG TABLET PO (07:40)
[2024-12-19 08:00] VITALS: BP 126/69; PULSE 63; RESP 16; TEMP 36.8; O2SAT 93
[2024-12-19] MEDS: CLOPIDOGREL 75 MG TABLET PO (08:10)
[2024-12-19] MEDS: METOPROLOL ER 50 MG TABLET 100 MG PO (08:10)
[2024-12-19] MEDS: INSULIN LISPRO 100 UNIT/ML 3ML VIAL SUBCUT (08:10)
[2024-12-19] MEDS: TAMSULOSIN 0.4 MG CAPSULE PO (08:10)
[2024-12-19] MEDS: DULOXETINE 20 MG CAPSULE PO (08:10)
[2024-12-19] MEDS: SODIUM CHLORIDE 0.9% FLUSH 10 ML IV (08:11)
[2024-12-19] MEDS: APIXABAN 5 MG TABLET 2.5 MG PO (08:11)
--- NOTE | 2024-12-19 11:16 | PC.NURSE ---
IV's removed. D/c instructions reviewed with pt. Pt exited via w/c with PRODUCTION OFFICER and friend to private vehicle.
--- NOTE | 2024-12-19 11:36 | CM.DPNOTE ---
DCP note LENDING ACTIVITIES SUPERVISOR reviewed EMR per chart, provider cleared pt for home today. hopeful for OP f/u within one week. LENDING ACTIVITIES SUPERVISOR messaged TCM group to update on dc home and request for OP f/u within 1 week. LENDING ACTIVITIES SUPERVISOR met with pt in room. confirms living in [place] with caregiver/friend and neighbor support. mobilizing at baseline with walker. gets assistance with ADLs with caregiver/vegetable farmer as needed. denies any DCP/CM needs or questions at this time. P: home today with CG support and OP f/u. no further CM needs at this time, will continue to follow as needed JAYME Andrade
== END 2024-12-19 11:21 | disposition home or self-care (01) | DRG 394 ==
LOC: ED 14:56 → AC 15:28
PROVIDERS: Pharmacist Pharmacist Clinician (PhC)/ Clinical Pharmacy Specialist; Admitting Provider Internal Medicine; Emergency Provider Emergency Medicine; PCP Internal Medicine; Referring Provider Emergency Medicine; Visit Provider Internal Medicine
DX: K62.89 Other specified diseases of anus and rectum (principal); C79.51 Secondary malignant neoplasm of bone; R11.2 Nausea with vomiting, unspecified; C61 Malignant neoplasm of prostate; E86.0 Dehydration; E83.42 Hypomagnesemia; E11.65 Type 2 diabetes mellitus with hyperglycemia; I48.0 Paroxysmal atrial fibrillation; G89.3 Neoplasm related pain (acute) (chronic); I10 Essential (primary) hypertension; I25.10 Atherosclerotic heart disease of native coronary artery without angina pectoris; F41.1 Generalized anxiety disorder; K75.9 Inflammatory liver disease, unspecified; E78.2 Mixed hyperlipidemia; F17.200 Nicotine dependence, unspecified, uncomplicated; K52.9 Noninfective gastroenteritis and colitis, unspecified; Z79.01 Long term (current) use of anticoagulants; Z79.84 Long term (current) use of oral hypoglycemic drugs; Z66 Do not resuscitate
CPT/HCPCS: 36415; 71045; 74177; 80048; 80053; 82550; 82962; 83605; 83690; 83735; 83880; 84484; 85025; 85610; 85730; 93005; 93010; 96361; 96365; 96375; 96376; 99223; 99233; 99238; 99284; 99291; G0378; J1171; J1200; J1815; J2405; J2765; J3475; J7050; Q9967

== ENCOUNTER 2024-12-28 13:24 | Inpatient (IN) | payer MEDICARE, OTHER, SELFPAY ==
[2024-12-16 15:54] VITALS: BMI 21.9
[2024-12-28] VITALS (17 sets, daily range): BP systolic 115–243; BP diastolic 73–148; PULSE 62–79; RESP 8–23; TEMP 36.2–37; O2SAT 99–100; BMI 20.5
--- NOTE | 2024-12-28 13:33 | ED.ABDPAIN ---
HPI - Abdominal Pain General Chief Complaint: Abdominal Pain Stated Complaint: Stomach caner, N/V, dehydration Time Seen by Provider: 12/28/24 13:32 History of Present Illness HPI narrative: Patient brought in by ambulance from home. Patient has history of metastatic prostate cancer. Patient sees Dr. Otis stevenson the at [facility]. Primary care is Dr. Khang Vasques. Patient does have pulse form with him he is DNR DNI and both boxes or checked for selective treatment and comfort measures with a yes next selective treatment. However, patient states he no longer wants selective treatments and would like comfort measures only, he wishes for no laboratory studies or imaging studies or procedures. He is not under hospice care. He has oral morphine at home that is not controlling his pain. Related Data Home Medications Medication Instructions Recorded Confirmed apixaban 2.5 mg tablet (Eliquis) 2.5 mg PO BID 03/29/24 12/28/24 nitroglycerin 0.4 mg sublingual 0.4 mg sublingual Q5-15M PRN Chest 03/29/24 12/28/24 tablet Pain ondansetron HCl 4 mg tablet 4 mg PO Q8H PRN Nausea And Vomiting 03/29/24 12/28/24 sennosides 8.6 mg tablet (senna) 8.6 mg PO DAILY constipation 03/29/24 12/28/24 lisinopril 10 mg tablet 10 mg PO DAILY 08/19/24 12/28/24 atorvastatin 80 mg tablet 80 mg PO ONCE PM 12/28/24 12/28/24 clopidogrel 75 mg tablet 75 mg PO DAILY 12/28/24 12/28/24 isosorbide mononitrate 30 mg 30 mg PO QAM 12/28/24 12/28/24 tablet,extended release 24 hr methocarbamol 500 mg tablet 500 mg PO 3XD 12/28/24 12/28/24 metoprolol succinate 100 mg 100 mg PO BID 12/28/24 12/28/24 tablet,extended release 24 hr pantoprazole 40 mg tablet,delayed 40 mg PO BID 12/28/24 12/28/24 release tamsulosin 0.4 mg capsule 0.4 mg PO DAILY 12/28/24 12/28/24 Previous Rx's Medication Instructions Recorded promethazine 25 mg rectal 25 mg NE Q4-6H PRN nausea and 11/18/20 suppository vomiting #12 ea duloxetine 20 mg capsule,delayed 20 mg PO DAILY #90 caps 07/16/24 release (Cymbalta) morphine 10 mg/5 mL oral solution 10 mg (5 mL) PO Q6H PRN pain #100 08/07/24 mL morphine 15 mg immediate release 7.5 - 15 mg (0.5 - 1 x 15 mg) PO 12/14/24 tablet Q3H PRN chest pain/bone pain #150 tabs Allergies Allergy/AdvReac Type Severity Reaction Status Date / Time No Known Drug Allergies Allergy Verified 12/27/24 10:09 Review of Systems Review of Systems Narrative: GENERAL: Negative chills, fatigue, malaise, fever, sweats. HEENT: Negative sinus pain, ear pain, sore throat RESPIRATORY: Negative dyspnea, cough CARDIOVASCULAR: Negative chest pain, palpitations GASTROINTESTINAL: Positive vomiting, nausea, abdominal pain : Negative dysuria, frequency, hematuria MUSCULOSKELETAL: Negative muscle or bony pain SKIN: Negative rash, skin lesions NEUROLOGIC: Negative weakness, numbness ROS Unobtainable: All systems reviewed & are unremarkable except as noted in HPI and below Patient History Medical History Acute upper gastrointestinal bleeding Malignant neoplasm of prostate metastatic to bone Hypertensive urgency Colitis Hematuria Uncomplicated opioid dependence Generalized anxiety disorder Cannabis abuse Prostate cancer (~05/2019) Paroxysmal A-fib Transaminitis Kidney stones Diverticulosis of large intestine (03/31/12) Chronic hepatitis Coronary artery disease involving [place] coronary artery of [place] heart without angina pectoris (~2006) Essential hypertension Mixed hyperlipidemia Surgical History H/O heart artery stent (~2006) Hx of inguinal hernia surgery (~03/07/14) Hx of inguinal hernia surgery (~09/20/08) Status post laminectomy History of angioplasty (~12/2006) Social History marital status: unmarried,single number of children: 3 household members: caregiver lives independently: Yes caregiver/support person: No housing: house pets and animals: No education level: high school occupational status: other 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/sabianism: None leisure activities: music, fishing and other Tobacco: How many years used: 56 Smokeless tobacco user: other quit status: has quit before second hand exposure: Yes (On farmland/Boat.) alcohol intake: former substance use type: does not use and marijuana eating out: rarely or never Type(s) of exercise: normal ROM and activity and additional alcohol intake frequency: 0-2 drinks per day Alcohol type: beer Exam Narrative Exam Narrative: GENERAL: in no distress, not toxic not dyspneic, patient is cachectic appearing. HEAD: Normocephalic. EYES: Pupils equal round ENT: Mucous membranes dry NECK: Trachea midline. CARDIOVASCULAR: Regular rate and rhythm RESPIRATORY: Clear to auscultation. Breath sounds equal bilaterally. No wheezes, rales, or rhonchi. GASTROINTESTINAL: Abdomen soft, non-tender abdomen is soft EXTREMITIES: No gross deformities. BACK: No flank tenderness. NEURO: AOx4. Clear speech SKIN: Warm and dry, pale skin PSYCH: Not anxious, is cooperative Initial Vital Signs Initial Vital Signs: Vital Signs Blood Pressure 243/148 H 12/28/24 13:33 Course Orders Ordered: Acetaminophen (Acetaminophen 325 Mg Tablet) 650 mg PO Q6H PRN PRN Reason: Fever/Mild Pain (1-3) Apixaban (Apixaban 5 Mg Tablet) 2.5 mg PO BID [facility] Last Admin: 12/29/24 07:57 Dose: 2.5 mg Documented By: Admin: 12/28/24 20:12 Dose: 2.5 mg Documented By: AT Aspirin (Aspirin Ec 81 Mg Tablet) 81 mg PO DAILY [facility] Last Admin: 12/29/24 09:35 Dose: Not Given Documented By: MS Atorvastatin Calcium (Atorvastatin 20 Mg Tablet) 80 mg PO BEDTIME [facility] Last Admin: 12/28/24 20:11 Dose: 80 mg Documented By: AT Bisacodyl (Bisacodyl 10 Mg Supp) 10 mg NE DAILY PRN PRN Reason: Constipation Clopidogrel Bisulfate (Clopidogrel 75 Mg Tablet) 75 mg PO DAILY [facility] Last Admin: 12/29/24 09:22 Dose: 75 mg Documented By: MS Duloxetine HCl (Duloxetine 20 Mg Capsule) 20 mg PO DAILY [facility] Last Admin: 12/29/24 09:22 Dose: 20 mg Documented By: MS Hydromorphone HCl (Hydromorphone 1 Mg Inj) 1 mg IV Q2H PRN PRN Reason: Pain, Moderate (4-6) Last Admin: 12/29/24 11:23 Dose: 1 mg Documented By: Hydromorphone HCl (Hydromorphone 2 Mg Inj) 2 mg IV Q2H PRN PRN Reason: Pain, Severe (7-10) Last Admin: 12/29/24 12:22 Dose: 2 mg Documented By: Admin: 12/29/24 10:24 Dose: 2 mg Documented By: Lisinopril (Lisinopril 10 Mg Tablet) 10 mg PO DAILY [facility] Last Admin: 12/29/24 09:22 Dose: 10 mg Documented By: Magnesium Chloride (Magnesium Chloride 64 Mg Tablet) 128 mg PO Q8H [facility] Stop: 12/29/24 19:01 Last Admin: 12/29/24 11:23 Dose: 128 mg Documented By: Metoprolol Succinate (Metoprolol Er 50 Mg Tablet) 100 mg PO BID [facility] Last Admin: 12/29/24 07:57 Dose: 100 mg Documented By: Admin: 12/28/24 20:12 Dose: 100 mg Documented By: MELLO Morphine Sulfate (Morphine Ir 15 Mg Tablet) 15 mg PO Q3H PRN PRN Reason: chest pain/bone pain Last Admin: 12/29/24 09:22 Dose: 15 mg Documented By: Admin: 12/29/24 05:46 Dose: 15 mg Documented By: Admin: 12/29/24 00:15 Dose: 15 mg Documented By: KLARISSA Naloxone HCl (Naloxone 0.4 Mg/Ml Vial) 0.2 mg IV Q2MIN PRN PRN Reason: Opiate Reversal Ondansetron HCl (Ondansetron 4 Mg/2 Ml Inj) 4 mg IV Q4HR PRN PRN Reason: Nausea And Vomiting Last Admin: 12/29/24 09:21 Dose: 4 mg Documented By: Admin: 12/29/24 05:46 Dose: 4 mg Documented By: Admin: 12/28/24 22:23 Dose: 4 mg Documented By: Admin: 12/28/24 18:33 Dose: 4 mg Documented By: GIOVANA Pantoprazole Sodium (Pantoprazole Dr 40 Mg Tablet) 40 mg PO BID [facility] Last Admin: 12/29/24 07:57 Dose: 40 mg Documented By: Admin: 12/28/24 20:12 Dose: 40 mg Documented By: AT Promethazine HCl (Promethazine 25 Mg Supp) 25 mg NE Q4H PRN PRN Reason: nausea and vomiting Scopolamine (Scopolamine 1 Patch) 1 patch TOP Q72H [facility] Last Admin: 12/29/24 10:24 Dose: 1 patch Documented By: Sennosides (Sennosides 8.6 Mg Tablet) 8.6 mg PO DAILY [facility] Last Admin: 12/29/24 09:22 Dose: 8.6 mg Documented By: Sodium Chloride (Sodium Chloride 0.9% Flush) 10 ml IV PRN PRN PRN Reason: Flush Last Admin: 12/29/24 10:26 Dose: 10 ml Documented By: Admin: 12/29/24 09:24 Dose: 10 ml Documented By: Admin: 12/29/24 05:46 Dose: 10 ml Documented By: Admin: 12/29/24 03:29 Dose: 10 ml Documented By: Admin: 12/28/24 22:23 Dose: 10 ml Documented By: Admin: 12/28/24 18:47 Dose: 10 ml Documented By: GIOVANA Sodium Chloride (Sodium Chloride 0.9% Flush) 10 ml IV BID [facility] Last Admin: 12/29/24 09:23 Dose: 10 ml Documented By: Admin: 12/28/24 19:43 Dose: 10 ml Documented By: AT Tamsulosin HCl (Tamsulosin 0.4 Mg Capsule) 0.4 mg PO DAILY [facility] Last Admin: 12/29/24 09:35 Dose: Not Given Documented By: MS Discontinued Medications Fentanyl (Fentanyl 100 Mcg/2 Ml Inj) 100 mcg IV Q4H PRN PRN Reason: Pain, Severe (7-10) Last Admin: 12/28/24 15:43 Dose: 100 mcg Documented By: MAYRA Hydromorphone HCl (Hydromorphone 1 Mg Inj) 1 mg IV NOW ONE Stop: 12/28/24 13:33 Last Admin: 12/28/24 14:34 Dose: 1 mg Documented By: MAYRA Hydromorphone HCl (Hydromorphone 0.5 Mg Inj) 0.5 mg IV Q2H PRN PRN Reason: Pain, Severe (7-10) Last Admin: 12/28/24 18:47 Dose: 0.5 mg Documented By: GIOVANA Hydromorphone HCl (Hydromorphone 1 Mg Inj) 1 mg IV Q4H PRN PRN Reason: Pain, Moderate (4-6) Last Admin: 12/29/24 09:23 Dose: 1 mg Documented By: Admin: 12/28/24 22:22 Dose: 1 mg Documented By: KLARISSA Hydromorphone HCl (Hydromorphone 2 Mg Inj) 2 mg IV Q4H PRN PRN Reason: Pain, Severe (7-10) Last Admin: 12/29/24 07:51 Dose: 2 mg Documented By: Admin: 12/29/24 03:28 Dose: 2 mg Documented By: Admin: 12/28/24 19:42 Dose: 2 mg Documented By: MELLO Sodium Chloride (Normal Saline 0.9%) 1,000 mls @ 1,000 mls/hr IV BOLUS ONE Stop: 12/28/24 14:39 Last Infusion: 12/28/24 16:32 Dose: Infused Documented By: Admin: 12/28/24 14:33 Dose: 1,000 mls/hr Documented By: MAYRA Ondansetron HCl (Ondansetron 4 Mg/2 Ml Inj) 4 mg IV NOW ONE Stop: 12/28/24 13:33 Last Admin: 12/28/24 14:34 Dose: 4 mg Documented By: MAYRA Vital Signs Vital signs: Vital Signs - 8 hr 12/28/24 13:33 12/28/24 14:21 12/28/24 14:23 Pulse Rate 75 Respiratory Rate 23 Blood Pressure 243/148 H 211/102 H 12/28/24 14:23 12/28/24 14:30 12/28/24 14:30 Pulse Rate 63 62 Respiratory Rate 10 L 10 L Blood Pressure 217/107 H 12/28/24 15:00 12/28/24 15:00 12/28/24 15:30 Pulse Rate 62 Respiratory Rate 14 Blood Pressure 208/107 H 200/95 H 12/28/24 15:30 12/28/24 16:00 Pulse Rate 72 79 Respiratory Rate 11 L 10 L Blood Pressure MDM - Abdominal Pain Lab Data 12/28/24 14:35 12/28/24 14:35 Labs: Lab Results 12/28/24 12/28/24 Range/Units 13:45 14:35 WBC 5.2 (4.5-11.0) X10^3/uL RBC 4.19 L (4.5-5.9) X10^6/uL Hgb 13.4 L (13.5-17.5) g/dL Hct 38.2 L (41-53) % MCV 91.4 (80-100) fL MCH 32.0 (26-34) PG MCHC 35.0 (30-36) % RDW 16.1 H (11.6-14.8) % Plt Count 172 (150-400) X10^3/uL Neut % (Auto) 81.7 H (50-75) % Lymph % (Auto) 11.7 L (25-40) % Moffat % (Auto) 5.2 (3-14) % Eos % (Auto) 0.5 L (2-4) % Baso % (Auto) 0.9 (0-2) % Neut # (Auto) 4300 (7396-8417) /uL Lymph # (Auto) 600 L (8836-8892) /uL Moffat # (Auto) 300 (0-900) /uL Eos # (Auto) 0 (0-450) /uL Baso # (Auto) 0 (0-100) /uL Sodium 139 (137-145) mmol/L Potassium 4.2 (3.4-5.1) mmol/L Chloride 103 (98-107) mmol/L Carbon Dioxide 22 (22-32) mmol/L BUN 15 (9-20) mg/dL Creatinine 0.99 (0.66-1.25) mg/dL Estimated GFR > 60 (>60) mL/min BUN/Creatinine Ratio 15.2 (6-22) Glucose 234 H D (80-110) mg/dL Calcium 10.1 (8.4-10.2) mg/dL Magnesium 1.6 (1.6-2.3) mg/dL Total Bilirubin 1.4 H (0.2-1.3) mg/dL AST 100 H (17-59) IU/L ALT 94 H (<50) IU/L Alkaline Phosphatase 153 H (38-126) U/L Total Protein 9.3 H (6.3-8.2) g/dL Albumin 5.0 (3.5-5.0) g/dL Globulin 4.3 H (1.7-4.1) g/dL Albumin/Globulin Ratio 1.2 (1.0-2.8) Urine Color Yellow Urine Appearance Clear Urine pH 7.0 (4.5-8.0) Ur Specific [place] 1.020 (1.000-1.035) Urine Protein 1+ H (Negative) Urine Glucose (UA) 1+ H (Negative) g/dL Urine Ketones Negative (NEGATIVE) Urine Occult Blood Trace-intact (Negative) Urine Nitrate Negative (Negative) Urine Bilirubin Negative (NEGATIVE) Urine Urobilinogen 0.2 (0.2) E.U./dL Ur Leukocyte Esterase Negative (NEGATIVE) Urine RBC 1-5/hpf (0-5/HPF) Urine WBC None seen (0-5/HPF) Ur Squamous Epith Cells None seen (0-5/HPF) Amorphous Sediment 1+ Urine Bacteria None seen (None) Hyaline Casts 1-5/lpf (None) Ur Culture Indicated? Cult not indicated Vol Urine Centrifuged 10ml (spun) [facility] Narrative Medical decision making narrative: Patient brought in by ambulance from home. Patient has history of metastatic prostate cancer. Patient sees Dr. Otis stevenson the at [facility]. Primary care is Dr. Khang Vasques. Patient does have pulse form with him he is DNR DNI and both boxes or checked for selective treatment and comfort measures with a yes next selective treatment. However, patient states he no longer wants selective treatments and would like comfort measures only, he wishes for no laboratory studies or imaging studies or procedures. He is not under hospice care. He has oral morphine at home that is not controlling his pain. After history and exam, patient wishes for no laboratory studies or imaging studies. Only once pain control. As well as nausea control. Addendum, patient now wants laboratory studies. [facility] Medical records reviewed: ER visit here December 16, 2024 Differential considered: Includes but not limited to dehydration metastatic prostate cancer Today's labs WBC 5.2 hemoglobin 13.4 sodium 139 potassium 4.2 BUN 15 creatinine 0.99 GFR greater than 60 glucose 234 Consultations: 3:30 p.m.. Spoke with primary care on-call, dr bhat for dr vasques, will admit Re-evaluations: Patient does agree for admission for pain control. At this time laboratory studies are reassuring. Discussion: Appropriate for admission, will need pain control. Also primary care will talk further about hospice options. 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
[2024-12-28] MEDS: SODIUM CHLORIDE 0.9% 1,000 ML 1000 ML IV (14:33)
[2024-12-28] MEDS: ONDANSETRON 4 MG/2 ML INJ IV ×3 (14:34→22:23)
[2024-12-28] MEDS: HYDROMORPHONE 1 MG INJ IV ×2 (14:34→22:22)
[2024-12-28 14:35] LABS: Appearance Urine UA CLEAR; Bilirubin Urine UA NEGATIVE (NEGATIVE); Color Urine UA YELLOW; Glucose Urine UA 1+ g/dL (Negative); Ketones Urine UA NEGATIVE (NEGATIVE); Leukocyte Esterase Urine UA NEGATIVE (NEGATIVE); Nitrite Urine UA NEGATIVE (Negative); Occult Blood Urine UA TRACE-INTACT (Negative); Protein Urine UA 1+ (Negative); Urobilinogen Urine UA 0.2 E.U./dL (0.2)
[2024-12-28 14:46] LABS: Add Manual Diff / Slide Review NO; Basophils Absolute Auto 0 /uL (0-100); Basophils Percent Auto 0.9 % (0-2); Eosinophils Absolute Auto 0 /uL (0-450); Eosinophils Percent Auto 0.5 % (2-4); Hematocrit 38.2 % (41-53); Hemoglobin 13.4 g/dL (13.5-17.5); Lymphocytes Absolute Auto 600 /uL (1100-4500); Lymphocytes Percent Auto 11.7 % (25-40); Mean Corpuscular Volume 91.4 fL (80-100); Monocytes Absolute Auto 300 /uL (0-900); Monocytes Percent Auto 5.2 % (3-14); Neutrophils Absolute Auto 4300 /uL (1500-7000); Neutrophils Percent Auto 81.7 % (50-75); Platelet Count 172 X10^3/uL (150-400); Red Blood Cell Count 4.19 X10^6/uL (4.5-5.9); Red Cell Distribution Width 16.1 % (11.6-14.8); White Blood Cell Count 5.2 X10^3/uL (4.5-11.0)
[2024-12-28 14:46] LABS: RBC Urine 1-5/HPF (0-5/HPF); Urine Volume 10mL (spun)
[2024-12-28 14:47] LABS: Amorphous Sediment Urine 1+; Bacteria Urine None Seen; Culture Indicated Urine Cult Not Indicated; Hyaline Casts Urine 1-5/LPF; Squamous Epithelial Cell Urine None Seen (0-5/HPF); WBC Urine None Seen (0-5/HPF)
[2024-12-28 15:00] LABS: Alanine Aminotransferase 94 IU/L (<50); Albumin Globulin Ratio 1.2 (1.0-2.8); Alkaline Phosphatase 153 U/L (38-126); Aspartate Aminotransferase 100 IU/L (17-59); BUN Creatinine Ratio 15.2 (6-22); Bilirubin Total 1.4 mg/dL (0.2-1.3); Blood Urea Nitrogen 15 mg/dL (9-20); Calcium 10.1 mg/dL (8.4-10.2); Carbon Dioxide 22 mmol/L (22-32); Chloride 103 mmol/L (98-107); Estimated Glomerular Filt Rate > 60 mL/min (>60); Globulin 4.3 g/dL (1.7-4.1); Glucose 234 mg/dL (80-110); HEMOLYSIS < 15 (0-50); Magnesium 1.6 mg/dL (1.6-2.3); Potassium 4.2 mmol/L (3.4-5.1); Sodium 139 mmol/L (137-145); Total Protein 9.3 g/dL (6.3-8.2)
[2024-12-28] MEDS: fentaNYL 100 MCG/2 ML INJ IV (15:43)
--- NOTE | 2024-12-28 16:51 | PM.HP.IH.1 ---
History of Present Illness History of Present Illness Date Patient Seen: 12/28/24 Time Patient Seen: 16:51 Chief complaint: Stomach caner, N/V, dehydration Narrative: Pt is a 69yo man with metastatic prostate cancer, DM type 2, HTN, paroxysmal atrial fibrillation, CAD, and anxiety who presents with severe pain and elevated blood pressures at home. The pt was hospitalized from 12/16-12/19 due to nausea, vomiting, and ELADIO. The pt he has been gradually working on weaning down on his morphine at home so that he can be more alert and not have as many issues with constipation. He has decreased down to BID dosing when he used to be taking is QID. The pt states that last night around 8pm he had acute onset of severe lower abdominal pain. It persisted since then. The pain is sharp in nature, and feels similar to pain he has had in the past. He states that he did have two BMs today, the first firm and the second softer and more large. He denies any fevers or chills. He has had increased nausea since the pain intensified, but denies any emesis. He took the liquid morphine this morning without any significant relief in his pain. The pt took his BP this morning and it was in the low 200s/100s. He took a bath to try and relax and alleviate some of the pain. When he came out of the bath he repeated his BP and it was still elevated to > 200/100. This is what prompted him to contact EMS. The pt had received 10mg of morphine prior to arrival to the hospital. In the ED, the pts BP was in the 200s/100s. It took his RN over an hour to obtain IV access due to his poor veins. He received 1mg of Dilaudid and then 100mcg of Fentanyl and his pain then improved. Currently the pt states that his pain is 6/10 on the pain scale. It remains in his lower abdomen, however he states that all of his joints hurt as well. [facility] Medical History Acute upper gastrointestinal bleeding Malignant neoplasm of prostate metastatic to bone Hypertensive urgency Colitis Hematuria Uncomplicated opioid dependence Generalized anxiety disorder Cannabis abuse Prostate cancer (~05/2019) Paroxysmal A-fib Transaminitis Kidney stones Diverticulosis of large intestine (03/31/12) Chronic hepatitis Coronary artery disease involving [place] coronary artery of [place] heart without angina pectoris (~2006) Essential hypertension Mixed hyperlipidemia Surgical History H/O heart artery stent (~2006) Hx of inguinal hernia surgery (~03/07/14) Hx of inguinal hernia surgery (~09/20/08) Status post laminectomy History of angioplasty (~12/2006) Social History marital status: unmarried,single number of children: 3 household members: caregiver lives independently: Yes caregiver/support person: No housing: house pets and animals: No education level: high school occupational status: other 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/zoroastrian: None leisure activities: music, fishing and other Tobacco: How many years used: 56 Smokeless tobacco user: other quit status: has quit before second hand exposure: Yes (On farm[place]/Boat.) alcohol intake: former substance use type: does not use and marijuana eating out: rarely or never Type(s) of exercise: normal ROM and activity and additional Meds Home Medications and Allergies Home Medications Medication Instructions Recorded Confirmed Type promethazine 25 mg rectal 25 mg MN Q4-6H PRN nausea and 11/18/20 12/27/24 Rx suppository vomiting #12 ea tamsulosin 0.4 mg capsule 0.4 mg PO DAILY 09/15/21 12/27/24 History atorvastatin 80 mg tablet 80 mg PO BEDTIME 07/30/22 12/27/24 History metoprolol succinate 100 mg 100 mg PO BID #180 tabs 09/27/23 12/27/24 Rx tablet,extended release 24 hr apixaban 2.5 mg tablet (Eliquis) 2.5 mg PO BID 03/29/24 12/27/24 History clopidogrel 75 mg tablet 75 mg PO DAILY 03/29/24 12/27/24 History nitroglycerin 0.4 mg sublingual 0.4 mg sublingual Q5-15M PRN Chest 03/29/24 12/27/24 History tablet Pain ondansetron HCl 4 mg tablet 4 mg PO Q8H PRN Nausea And Vomiting 03/29/24 12/27/24 History sennosides 8.6 mg tablet (senna) 8.6 mg PO DAILY constipation 03/29/24 12/27/24 History duloxetine 20 mg capsule,delayed 20 mg PO DAILY #90 caps 07/16/24 12/27/24 Rx release (Cymbalta) aspirin [Adult Low Dose Aspirin] 81 mg PO QAM 08/03/24 12/27/24 History morphine 10 mg/5 mL oral solution 10 mg (5 mL) PO Q6H PRN pain #100 08/07/24 12/27/24 Rx mL lisinopril 10 mg tablet 10 mg PO DAILY 08/19/24 12/27/24 History isosorbide mononitrate 30 mg 30 mg PO DAILY 08/21/24 12/27/24 History tablet,extended release 24 hr pantoprazole 40 mg tablet,delayed 40 mg PO BID #60 tabs 12/09/24 12/27/24 Rx release morphine 15 mg immediate release 7.5 - 15 mg (0.5 - 1 x 15 mg) PO 12/14/24 12/27/24 Rx tablet Q3H PRN chest pain/bone pain #150 tabs Allergies Allergy/AdvReac Type Severity Reaction Status Date / Time No Known Drug Allergies Allergy Verified 12/27/24 10:09 Exam Vital Signs (past 8 hours): - 12/28/24 13:33 12/28/24 14:21 12/28/24 14:23 Pulse Rate 75 Respiratory Rate 23 Blood Pressure 243/148 H 211/102 H 12/28/24 14:23 12/28/24 14:30 12/28/24 14:30 Pulse Rate 63 62 Respiratory Rate 10 L 10 L Blood Pressure 217/107 H 12/28/24 15:00 12/28/24 15:00 12/28/24 15:30 Pulse Rate 62 Respiratory Rate 14 Blood Pressure 208/107 H 200/95 H 12/28/24 15:30 12/28/24 16:00 12/28/24 16:01 Pulse Rate 72 79 Respiratory Rate 11 L 10 L Blood Pressure 141/88 H 12/28/24 16:01 Pulse Rate 78 Respiratory Rate 10 L Blood Pressure Narrative Exam Narrative: Gen: NAD, sitting comfortably in bed, appears pale and frail HEENT: normocephalic, atraumatic, sclera clear Neck: no JVD CV: RRR, no murmurs Resp: clear to auscultation bilaterally Abd: soft, tender to palpation lower abdomen with mild guarding, no rigidity/rebound, normoactive bowel sounds Ext: no edema Neuro: no gross deficits Objective Labs 12/28/24 14:35 12/28/24 14:35 Labs: Laboratory Results - last 24 hr 12/28/24 12/28/24 13:45 14:35 WBC 5.2 RBC 4.19 L Hgb 13.4 L Hct 38.2 L MCV 91.4 MCH 32.0 MCHC 35.0 RDW 16.1 H Plt Count 172 Neut % (Auto) 81.7 H Lymph % (Auto) 11.7 L [place] % (Auto) 5.2 Eos % (Auto) 0.5 L Baso % (Auto) 0.9 Neut # (Auto) 4300 Lymph # (Auto) 600 L [place] # (Auto) 300 Eos # (Auto) 0 Baso # (Auto) 0 Sodium 139 Potassium 4.2 Chloride 103 Carbon Dioxide 22 BUN 15 Creatinine 0.99 Estimated GFR > 60 BUN/Creatinine Ratio 15.2 Glucose 234 H D Calcium 10.1 Magnesium 1.6 Total Bilirubin 1.4 H AST 100 H ALT 94 H Alkaline Phosphatase 153 H Total Protein 9.3 H Albumin 5.0 Globulin 4.3 H Albumin/Globulin Ratio 1.2 Urine Color Yellow Urine Appearance Clear Urine pH 7.0 Ur Specific [place] 1.020 Urine Protein 1+ H Urine Glucose (UA) 1+ H Urine Ketones Negative Urine Occult Blood Trace-intact Urine Nitrate Negative Urine Bilirubin Negative Urine Urobilinogen 0.2 Ur Leukocyte Esterase Negative Urine RBC 1-5/hpf Urine WBC None seen Ur Squamous Epith Cells None seen Amorphous Sediment 1+ Urine Bacteria None seen Hyaline Casts 1-5/lpf Ur Culture Indicated? Cult not indicated Vol Urine Centrifuged 10ml (spun) Assessment & Plan Assessment & Plan narrative: Pt is a 69yo man with metastatic prostate cancer, DM type 2, HTN, paroxysmal atrial fibrillation, CAD, and anxiety who presents with severe pain and elevated blood pressures at home. Pt had been working on cutting back on his pain medications, and had significant worsening of his pain as a result. 1) Chronic pain on chronic opiates: Thought to be in large part due to his metastatic prostate cancer. - Continue home PO Morphine - Dilaudid PRN IV - Stool regimen 2) HTN: BP now in acceptable range. Suspect elevated secondary to pain, and pt not taking medication this morning. - Continue home Lisinopril - Monitor closely 3) Nausea: - Zofran IV PRN - Promethazine suppository PRN as at home 4) Constipation: Pt with BM this morning - Continue home Senna, Dulcolax PRN 5) DM Type 2: Metformin recently discontinued. Diet controlled. Blood sugar quite elevated at admission. - Will hold on blood sugar checks for now at pts request 6) Anxiety: Stable - Continue home Duloxetine 7) Paroxysmal atrial fibrillation: Rate controlled, currently sinus rhythm - Continue home anticoagulation 8) CAD: Stable - Continue home medications DVT ppx: on anticoagulation FEN: carb controlled diet Code: DNR Dispo: Pending improvement in pain control. Hopeful can d/c tomorrow. Time-Based Coding :: [TOTAL MINUTES] spent with patient and on the chart (including review of chart, obtaining history, exam, reviewing outside data, placing orders, documenting exam and treatment plan, and counseling patient) on [DATE]. [employer] Document charge(s): Yes Charge Codes Initial inpatient/observation care: 16641
[2024-12-28] MEDS: SODIUM CHLORIDE 0.9% FLUSH 10 ML IV ×3 (18:47→22:23)
[2024-12-28] MEDS: HYDROMORPHONE 0.5 MG INJ IV (18:47)
[2024-12-28] MEDS: HYDROMORPHONE 2 MG INJ IV (19:42)
[2024-12-28] MEDS: ATORVASTATIN 20 MG TABLET 80 MG PO (20:11)
[2024-12-28] MEDS: METOPROLOL ER 50 MG TABLET 100 MG PO (20:12)
[2024-12-28] MEDS: PANTOPRAZOLE DR 40 MG TABLET PO (20:12)
[2024-12-28] MEDS: APIXABAN 5 MG TABLET 2.5 MG PO (20:12)
[2024-12-28 20:48] LABS: Magnesium 1.3 mg/dL (1.6-2.3)
[2024-12-29] VITALS (8 sets, daily range): BP systolic 131–158; BP diastolic 64–90; PULSE 51–66; RESP 16–18; TEMP 35.8–36.9; O2SAT 95–99
[2024-12-29] MEDS: MORPHINE IR 15 MG TABLET PO ×5 (00:15→18:17)
[2024-12-29] MEDS: HYDROMORPHONE 2 MG INJ IV ×10 (03:28→19:03)
[2024-12-29] MEDS: SODIUM CHLORIDE 0.9% FLUSH 10 ML IV ×8 (03:29→20:50)
[2024-12-29] MEDS: ONDANSETRON 4 MG/2 ML INJ IV ×4 (05:46→18:16)
[2024-12-29] MEDS: PANTOPRAZOLE DR 40 MG TABLET PO ×2 (07:57→20:49)
[2024-12-29] MEDS: METOPROLOL ER 50 MG TABLET 100 MG PO ×2 (07:57→20:50)
[2024-12-29] MEDS: APIXABAN 5 MG TABLET 2.5 MG PO ×2 (07:57→20:49)
--- NOTE | 2024-12-29 08:47 | CM.DANOTE ---
B DCP Assessment Note pt is a 69yo M admitted with metastatic prostate cancer, DM type 2, HTN, paroxysmal atrial fibrillation, CAD, and anxiety admitted with pain management/hypertensions concerns. PCP Caprice Bocanegraer Medicare and Comm ins. JAYME reviewed EMR. per chart, recent readmit x2, admitted 12/05/24-12/09/24 and 12/18/24-12/19/24. admitted due to NV/ELADIO/pain management. per chart review, pt previously declined hospice services. lives home alone but has CGs(glass [employer] cleaner) for 4 hours daily that assist with meal prep/transport/home chores etc. Jasbir Truong lives in [place]. per chart, last two admissions pt discharged home with no CM needs. per ED note, pt now wants comfort care measures? vs H&P, stating anticipate dc home Sat once pain better controlled. Per RN, will message provider now to get clarity on comfort vs the POC for pt. RN reports he has made statements of I don't want to get addicted to the pain meds vs I know I'm going to anyway. provider to continue goals of care conversation with pt today. P: DCP pending goals of care conversations with provider/pt preference. anticipate dc home with CGs vs add hospice services. CM team will continue to follow for DCP coordination JAYME Andrade Discharge Planning/Care Management CM Discharge Assessment Start: 12/29/24 08:39 Freq: Status: Active Protocol: Document 12/29/24 08:39 SL (Rec: 12/29/24 08:47 SL Desktop) Discharge Planning Assessment Assigned Manager Assisted Living JAYME Ocampo DPNATHAN/Assigned Designee Name Alexi Fry (son) (DPOA) Contact Information [phone] / [phone] Advance Directives? Yes: POLST Advance Directives on File No History Provided By Patient,Medical Record Has Patient been admitted in last 30 Yes days? Comment readmit x2, 12/05/24-12/09/24 and 12/18/24-12/19/24 Prior Living Arrangements House Household Members caregiver Type of transporation used prior to Relies on Others admit Is patient alert and oriented? Yes Needs Assistance With Meal Prep,Managing Medications ,Home Chores / Shopping Patient/Family Preference OP PT Therapy Comment Patient's friends Peg and Lisandra assist him throughout the week with meds, ADLs, transportation Discharge Plan Home Transportation Arrangement Patient reports that Lisandra can pick him up at time of d/c . Referrals Initiated None needed Additional Comment Pending If patient plan is home with home health No : Has signed face to face form been completed? Review Status In Process Please Provide Date Initial DC 12/29/24 Assessment Was Performed Next Review Type Continued Stay Review
[2024-12-29] MEDS: lisinopriL 10 MG TABLET PO (09:22)
[2024-12-29] MEDS: SENNOSIDES 8.6 MG TABLET PO ×2 (09:22→20:50)
[2024-12-29] MEDS: CLOPIDOGREL 75 MG TABLET PO (09:22)
[2024-12-29] MEDS: DULOXETINE 20 MG CAPSULE PO (09:22)
[2024-12-29] MEDS: HYDROMORPHONE 1 MG INJ IV ×6 (09:23→18:46)
[2024-12-29] MEDS: SCOPOLAMINE 1 PATCH TOP (10:24)
[2024-12-29] MEDS: MAGNESIUM CHLORIDE 64 MG TABLET 128 MG PO ×2 (11:23→18:17)
--- NOTE | 2024-12-29 14:45 | PM.PN.1 ---
Subjective Subjective Date Patient Seen: 12/29/24 Time Patient Seen: 14:45 Interval history: This is a very pleasant 69-year-old male who is seen in [facility] for Dr. Vasques. Patient with a known history of metastatic prostate cancer. He is followed by Dr. Fernandez for Oncology and Dr. Guerrero from Urology. He was diagnosed with metastases approximately 2 years ago. He stopped Lupron a year ago because of severe side effects. He has metastases to the sacrum. He has had multiple hospitalizations and ER visits of recent often times for pain control. Patient was having difficulty with bowel movements and therefore he decreased his morphine orally at home so that he could have bowel movement in his pain escalated requiring him to be evaluated in the ER and transported by EMS and due to intractable pain he was admitted for further treatment and workup. The patient has not had bowel movements since he has been in the hospital. He is requiring increasing amounts of pain medication. He is experiencing nausea but scopolamine patch was placed and he is getting relief from this 12 point review of systems otherwise is negative Denies any fever, chills, rashes. Denies any urinary symptoms. Denies any headaches or chest pain or shortness of breath Exam Vital Signs (past 8 hours): - 12/29/24 07:57 12/29/24 09:11 12/29/24 09:22 Temperature 97.6 F Pulse Rate 64 66 66 Respiratory Rate 17 Blood Pressure 144/86 H 144/64 H 144/68 H Pulse Oximetry 97 Oxygen Flow Rate 0 12/29/24 09:23 Temperature Pulse Rate 65 Respiratory Rate Blood Pressure 144/64 H Pulse Oximetry Oxygen Flow Rate Oxygen Delivery Method Room Air Oxygen Flow Rate 0 Narrative Exam Narrative: Afebrile vital signs are stable, patient appears cachectic and chronically ill HEENT unremarkable, no mucosal lesions no ulcerations or evidence of thrush Neck: Supple without adenopathy Chest: Clear to auscultation without wheezes rhonchi or crackles Cor: Regular rate and rhythm without a murmur Abdomen: Positive bowel sounds x4. Patient with slight distention no significant tenderness or guarding though difficult to get him to relax. Extremities show no edema Neurologic exam nonfocal Objective Labs 12/28/24 14:35 12/28/24 14:35 Labs: Laboratory Results - last 24 hr 12/28/24 12/28/24 12/28/24 13:45 14:35 20:24 WBC 5.2 RBC 4.19 L Hgb 13.4 L Hct 38.2 L MCV 91.4 MCH 32.0 MCHC 35.0 RDW 16.1 H Plt Count 172 Neut % (Auto) 81.7 H Lymph % (Auto) 11.7 L [place] % (Auto) 5.2 Eos % (Auto) 0.5 L Baso % (Auto) 0.9 Neut # (Auto) 4300 Lymph # (Auto) 600 L [place] # (Auto) 300 Eos # (Auto) 0 Baso # (Auto) 0 Sodium 139 Potassium 4.2 Chloride 103 Carbon Dioxide 22 BUN 15 Creatinine 0.99 Estimated GFR > 60 BUN/Creatinine Ratio 15.2 Glucose 234 H D Calcium 10.1 Magnesium 1.6 1.3 L Total Bilirubin 1.4 H AST 100 H ALT 94 H Alkaline Phosphatase 153 H Total Protein 9.3 H Albumin 5.0 Globulin 4.3 H Albumin/Globulin Ratio 1.2 Urine Color Yellow Urine Appearance Clear Urine pH 7.0 Ur Specific [place] 1.020 Urine Protein 1+ H Urine Glucose (UA) 1+ H Urine Ketones Negative Urine Occult Blood Trace-intact Urine Nitrate Negative Urine Bilirubin Negative Urine Urobilinogen 0.2 Ur Leukocyte Esterase Negative Urine RBC 1-5/hpf Urine WBC None seen Ur Squamous Epith Cells None seen Amorphous Sediment 1+ Urine Bacteria None seen Hyaline Casts 1-5/lpf Ur Culture Indicated? Cult not indicated Vol Urine Centrifuged 10ml (spun) [facility] Medical History Acute upper gastrointestinal bleeding Malignant neoplasm of prostate metastatic to bone Hypertensive urgency Colitis Hematuria Uncomplicated opioid dependence Generalized anxiety disorder Cannabis abuse Prostate cancer (~05/2019) Paroxysmal A-fib Transaminitis Kidney stones Diverticulosis of large intestine (03/31/12) Chronic hepatitis Coronary artery disease involving [place] coronary artery of [place] heart without angina pectoris (~2006) Essential hypertension Mixed hyperlipidemia Surgical History H/O heart artery stent (~2006) Hx of inguinal hernia surgery (~03/07/14) Hx of inguinal hernia surgery (~09/20/08) Status post laminectomy History of angioplasty (~12/2006) Social History marital status: unmarried,single number of children: 3 household members: caregiver lives independently: Yes caregiver/support person: No housing: house pets and animals: No education level: high school occupational status: other 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 Pt had been working on cutting back on his pain medications, and had significant worsening of his pain as a result. No clear reason for increased pain other than decreasing pain medications 1) Chronic pain on chronic opiates: Thought to be in large part due to his metastatic prostate cancer. - Continue home PO Morphine - Dilaudid PRN IV -will be more aggressive with stool regimen. Will increase senna to twice daily and add MiraLax and continue with prunes. -due to requiring frequent dose of Dilaudid will start fentanyl patch at 12 mcg daily. --will continue with scopolamine patch to hold for potential radiation of pain medications. Depending how he is doing tomorrow we will consider adding hydroxyzine. We will repeat labs tomorrow. No other clear reason for increase in his pain. Will consider doing an x-ray of lumbar spine and pelvis. 2) HTN: BP now in acceptable range. Suspect elevated secondary to pain, and pt not taking medication this morning. - Continue home Lisinopril - Monitor closely 3) Nausea: - Zofran IV PRN - Promethazine suppository PRN as at home -add scopolamine patch -Reglan as needed 4) Constipation: Pt with BM this morning - Continue home Senna, Dulcolax PRN. Will add MiraLax and increase senna as patient was taking a lot of pain medications 5) DM Type 2: Metformin recently discontinued. Diet controlled. Blood sugar quite elevated at admission. - Will hold on blood sugar checks for now at pts request. Will discuss tomorrow 6) Anxiety: Stable - Continue home Duloxetine. Will discuss increasing dose tomorrow 7) Paroxysmal atrial fibrillation: Rate controlled, currently sinus rhythm - Continue home anticoagulation, with Eliquis at low dose 8) CAD: Stable. On Plavix and will continue apparently he was supposed to finish the bottle he has and then stop. This is per Cardiology. - Continue home medications DVT ppx: on anticoagulation FEN: carb controlled diet. Will hold on blood sugar checks at this time due to patient's request Code: DNR 57 minutes spent with patient in discussing with physician, nursing, meeting with patient and his partner and reviewing the chart and documentation Time-Based Coding :: [TOTAL MINUTES] spent with patient and on the chart (including review of chart, obtaining history, exam, reviewing outside data, placing orders, documenting exam and treatment plan, and counseling patient) on [DATE].
[2024-12-29] MEDS: polyethylene glycoL 3350 17 GM POWD.PACK PO (15:21)
[2024-12-29] MEDS: fentaNYL 12 MCG/PATCH TOP (15:22)
[2024-12-29] MEDS: diphenhydrAMINE 50 MG/ML VIAL IV (15:34)
[2024-12-29] MEDS: LORazepam 1 MG TABLET PO (15:35)
[2024-12-29] MEDS: METOCLOPRAMIDE 10 MG/2 ML INJ 5 MG IV (17:10)
[2024-12-29] MEDS: diphenhydrAMINE 25 MG TABLET 50 MG PO (17:11)
[2024-12-29] MEDS: ATORVASTATIN 20 MG TABLET 80 MG PO (20:49)
[2024-12-30] VITALS (8 sets, daily range): BP systolic 120–150; BP diastolic 67–89; PULSE 52–59; RESP 15–18; TEMP 35.8–36.6; O2SAT 95–99
[2024-12-30 05:19] LABS: Add Manual Diff / Slide Review NO; Basophils Absolute Auto 100 /uL (0-100); Basophils Percent Auto 1.3 % (0-2); Eosinophils Absolute Auto 200 /uL (0-450); Eosinophils Percent Auto 4.3 % (2-4); Hematocrit 31.7 % (41-53); Hemoglobin 11.2 g/dL (13.5-17.5); Lymphocytes Absolute Auto 1400 /uL (1100-4500); Lymphocytes Percent Auto 30.9 % (25-40); Mean Corpuscular HGB Conc 35.4 % (30-36); Mean Corpuscular Hemoglobin 32.4 PG (26-34); Mean Corpuscular Volume 91.5 fL (80-100); Monocytes Absolute Auto 600 /uL (0-900); Monocytes Percent Auto 12.8 % (3-14); Neutrophils Absolute Auto 2200 /uL (1500-7000); Neutrophils Percent Auto 50.7 % (50-75); Platelet Count 116 X10^3/uL (150-400); Red Blood Cell Count 3.47 X10^6/uL (4.5-5.9); Red Cell Distribution Width 15.3 % (11.6-14.8); White Blood Cell Count 4.4 X10^3/uL (4.5-11.0)
[2024-12-30 05:28] LABS: BUN Creatinine Ratio 23.9 (6-22); Blood Urea Nitrogen 26 mg/dL (9-20); Calcium 8.9 mg/dL (8.4-10.2); Carbon Dioxide 24 mmol/L (22-32); Chloride 103 mmol/L (98-107); Estimated Glomerular Filt Rate > 60 mL/min (>60); Glucose 116 mg/dL (80-110); HEMOLYSIS < 15 (0-50); Potassium 4.2 mmol/L (3.4-5.1); Sodium 134 mmol/L (137-145)
[2024-12-30] MEDS: SENNOSIDES 8.6 MG TABLET PO ×2 (08:50→20:50)
[2024-12-30] MEDS: TAMSULOSIN 0.4 MG CAPSULE PO (08:50)
[2024-12-30] MEDS: PANTOPRAZOLE DR 40 MG TABLET PO ×2 (08:50→20:50)
[2024-12-30] MEDS: polyethylene glycoL 3350 17 GM POWD.PACK PO (08:51)
[2024-12-30] MEDS: CLOPIDOGREL 75 MG TABLET PO (08:51)
[2024-12-30] MEDS: METOPROLOL ER 50 MG TABLET 100 MG PO (08:51)
[2024-12-30] MEDS: DULOXETINE 20 MG CAPSULE PO (08:51)
[2024-12-30] MEDS: lisinopriL 10 MG TABLET PO (08:52)
[2024-12-30] MEDS: APIXABAN 5 MG TABLET 2.5 MG PO ×2 (08:54→20:50)
[2024-12-30] MEDS: HYDROMORPHONE 2 MG INJ IV ×3 (11:12→18:11)
[2024-12-30] MEDS: SODIUM CHLORIDE 0.9% FLUSH 10 ML IV ×2 (11:17→20:51)
[2024-12-30] MEDS: MORPHINE IR 15 MG TABLET PO (13:20)
--- NOTE | 2024-12-30 15:17 | P.PN_ITS ---
Subjective Subjective Date Patient Seen: 12/30/24 Time Patient Seen: 15:17 Interval history: Patient is doing much better. The scopolamine patch and fentanyl patch at 12 mcg have decreased his need for IV Dilaudid and IV Zofran. His nausea is much improved in his appetite is getting better. He still has not had a bowel movement. We are working to assist with this. He did receive 1 dose of oral morphine today and then 1 dose of Dilaudid when he said his pain was 7/10. But this is markedly diminished from his requirements the 12-24 hours prior. Patient denies any shortness breath or chest pain Patient states abdominal pain and back pain markedly improved 12 point review of systems is otherwise negative Exam Vital Signs (past 8 hours): - 12/30/24 08:00 12/30/24 08:51 12/30/24 08:52 Temperature 97 F L Pulse Rate 58 L Respiratory Rate 16 Blood Pressure 150/83 H 150/84 H 150/84 H Pulse Oximetry 95 Oxygen Flow Rate 0 12/30/24 13:00 Temperature 96.6 F L Pulse Rate 55 L Respiratory Rate 18 Blood Pressure 120/67 Pulse Oximetry 99 Oxygen Flow Rate Oxygen Delivery Method Room Air Oxygen Flow Rate 0 Narrative Exam Narrative: Patient is alert and oriented no apparent distress and vital signs are stable. Patient has a baseline bradycardia and this is not changed. O2 sats are normal on room air Patient appears much more comfortable today HEENT is unremarkable Neck: Supple Chest: Clear to auscultation without wheezes rhonchi or crackles Cor: Regular rate and rhythm without a murmur Abdomen: Positive bowel sounds, soft. Less distended today and no guarding. No obvious masses Extremities no edema pulses intact Neurologic exam nonfocal Objective Labs 12/30/24 04:46 12/30/24 04:46 Labs: Laboratory Results - last 24 hr 12/30/24 04:46 WBC 4.4 L RBC 3.47 L Hgb 11.2 L Hct 31.7 L MCV 91.5 MCH 32.4 MCHC 35.4 RDW 15.3 H Plt Count 116 L Neut % (Auto) 50.7 D Lymph % (Auto) 30.9 Love % (Auto) 12.8 Eos % (Auto) 4.3 H Baso % (Auto) 1.3 Neut # (Auto) 2200 Lymph # (Auto) 1400 Love # (Auto) 600 Eos # (Auto) 200 Baso # (Auto) 100 Sodium 134 L Potassium 4.2 Chloride 103 Carbon Dioxide 24 BUN 26 H Creatinine 1.09 Estimated GFR > 60 BUN/Creatinine Ratio 23.9 H Glucose 116 H D Calcium 8.9 PFSH Medical History Acute upper gastrointestinal bleeding Malignant neoplasm of prostate metastatic to bone Hypertensive urgency Colitis Hematuria Uncomplicated opioid dependence Generalized anxiety disorder Cannabis abuse Prostate cancer (~05/2019) Paroxysmal A-fib Transaminitis Kidney stones Diverticulosis of large intestine (03/31/12) Chronic hepatitis Coronary artery disease involving [place] coronary artery of [place] heart without angina pectoris (~2006) Essential hypertension Mixed hyperlipidemia Surgical History H/O heart artery stent (~2006) Hx of inguinal hernia surgery (~03/07/14) Hx of inguinal hernia surgery (~09/20/08) Status post laminectomy History of angioplasty (~12/2006) Social History marital status: unmarried,single number of children: 3 household members: caregiver lives independently: Yes caregiver/support person: No housing: house pets and animals: No education level: high school occupational status: other 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/religious: None leisure activities: music, fishing and other Tobacco: How many years used: 56 Smokeless tobacco user: other quit status: has quit before second hand exposure: Yes (On farmland/Boat.) alcohol intake: former substance use type: does not use and marijuana eating out: rarely or never Type(s) of exercise: normal ROM and activity and additional Assessment & Plan Assessment & Plan narrative: 1) Chronic pain on chronic opiates: Thought to be in large part due to his metastatic prostate cancer. - Continue home PO Morphine - Dilaudid PRN IV -will be more aggressive with stool regimen. Will increase senna to twice daily and add MiraLax and continue with prunes. Will add milk of magnesia as well and do the slurry of prune juice, bladder and milk of magnesia. -will continue with the same dose fentanyl patch at 12 mcg daily. This has decreased his requirements. --will continue with scopolamine patch as this has been very helpful for his nausea. Discussed repeating imaging specifically x-rays and patient declines. He feels that he has already had these workups before. 2) HTN: BP now in acceptable range. Suspect elevated secondary to pain, and pt not taking medication this morning. - Continue home Lisinopril - Monitor closely 3) Nausea: - Zofran IV PRN - Promethazine suppository PRN as at home -will continue scopolamine patch which has been very beneficial -Reglan as needed 4) Constipation: - Continue home Senna, Dulcolax PRN. Will add milk of magnesia to MiraLax and increase senna to prevent further constipation 5) DM Type 2: Metformin recently discontinued. Diet controlled. Blood sugar quite elevated at admission but improved on a.m. labs today. - Will hold on blood sugar checks for now at pts request. Will discuss tomorrow 6) Anxiety: Stable - Continue home Duloxetine. Consider increasing duloxetine but I will leave this up to Dr. Vasques 7) Paroxysmal atrial fibrillation: Rate controlled, currently sinus rhythm - Continue home anticoagulation, with Eliquis at low dose 8) CAD: Stable. On Plavix and will continue apparently he was supposed to finish the bottle he has and then stop. This is per Cardiology. - Continue home medications DVT ppx: on anticoagulation FEN: carb controlled diet. Will hold on blood sugar checks at this time due to patient's request Code: DNR 50 minutes spent with patient in discussing with physician, nursing, meeting with patient and his partner and reviewing the chart and documentation Time-Based Coding :: [TOTAL MINUTES] spent with patient and on the chart (including review of chart, obtaining history, exam, reviewing outside data, placing orders, documenting exam and treatment plan, and counseling patient) on [DATE].
[2024-12-30] MEDS: MAGNESIUM HYDROXIDE 30 ML UDC PO (18:27)
[2024-12-30] MEDS: HYDROMORPHONE 1 MG INJ IV ×2 (19:57→21:49)
[2024-12-30] MEDS: ATORVASTATIN 20 MG TABLET 80 MG PO (20:50)
[2024-12-31] MEDS: diphenhydrAMINE 25 MG TABLET 50 MG PO ×4 (00:10→20:14)
[2024-12-31] MEDS: HYDROMORPHONE 1 MG INJ IV ×6 (00:10→20:14)
[2024-12-31 07:00] VITALS: BP 135/70; PULSE 55; RESP 18; TEMP 35.7; O2SAT 98
--- NOTE | 2024-12-31 07:07 | P.PN_ITS ---
Subjective Subjective Date Patient Seen: 12/31/24 Time Patient Seen: 07:08 Interval history: 69-year-old male well known to me with multiple admissions and recent visit to the clinic readmitted with chronic pain issues primarily abdominal pain as usual. Patient has been cutting back on his oral morphine because of constipation issues although did have 2 large bowel movements prior to presenting to the hospital which did not seem to improve his pain. He also has some liquid morphine at home as prescribed by palliative care physician previously and that did not help with his pain at all. He presented to the emergency department and he was given parental Dilaudid and fentanyl which finally controlled his pain Since admission he has been started on fentanyl patch in addition to the parental hydromorphone. He also has been placed on a scopolamine patch since nausea and vomiting is a major component of his abdominal presentation over and over again. These 2 things together seem to improve things although generally speaking he gets tremendously better within 24 hours admission more often than not The other component of his admission was severe hypertension which happens when he does not take his oral meds because of his abdominal pain and or nausea vomiting. This is also much improved now verses his status at time of admission which he was also his usual pattern with these episodes Exam Vital Signs (past 8 hours): Oxygen Delivery Method Room Air Oxygen Flow Rate 0 Objective Labs 12/30/24 04:46 12/30/24 04:46 [facility] Medical History Acute upper gastrointestinal bleeding Malignant neoplasm of prostate metastatic to bone Hypertensive urgency Colitis Hematuria Uncomplicated opioid dependence Generalized anxiety disorder Cannabis abuse Prostate cancer (~05/2019) Paroxysmal A-fib Transaminitis Kidney stones Diverticulosis of large intestine (03/31/12) Chronic hepatitis Coronary artery disease involving [place] coronary artery of [place] heart without angina pectoris (~2006) Essential hypertension Mixed hyperlipidemia Surgical History H/O heart artery stent (~2006) Hx of inguinal hernia surgery (~03/07/14) Hx of inguinal hernia surgery (~09/20/08) Status post laminectomy History of angioplasty (~12/2006) Social History marital status: unmarried,single number of children: 3 household members: caregiver lives independently: Yes caregiver/support person: No housing: house pets and animals: No education level: high school occupational status: other 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/holiness: None leisure activities: music, fishing and other Tobacco: How many years used: 56 Smokeless tobacco user: other quit status: has quit before second hand exposure: Yes (On farmland/Boat.) alcohol intake: former substance use type: does not use and marijuana eating out: rarely or never Type(s) of exercise: normal ROM and activity and additional Assessment & Plan Assessment & Plan narrative: 1. Chronic pain-patient with chronic abdominal pain of uncertain etiology. This precedes his cancer diagnosis but certainly has been exacerbated here recently. Patient with multiple CT scans over time that it failed to demonstrate any significant intra-abdominal or intrapelvic pathology. He is using morphine chronically, and this has not been sufficient in controlling his symptoms. Fentanyl so far better maybe a fentanyl patch with more consistent slow release will indeed be a better choice for him. No evidence of any new intra-abdominal or intrapelvic pathology based on current symptoms or presentation with this admission. Continue with the scopolamine the as needed ondansetron as well as the fentanyl 2. Hypertension-back on usual meds with adequate control of blood pressure. Again following his usual pattern 3. Nausea-Zofran IV as needed with scopolamine patch has been helpful. Reglan and or promethazine as necessary in addition to these other antiemetics. Again no clear etiology for this is ever been discovered despite multiple GI visits. Best working diagnosis in the past has been hyperemesis cannabis syndrome, which is still certainly very much a possibility 4. Constipation-continue patient's usual meds as noted with senna MiraLax and Dulcolax as needed 5. Type 2 diabetes-stop metformin recently. Blood sugars have been adequately controlled here. Obviously discontinuation of the metformin has not made any difference as yet in his abdominal pain syndrome thinking the lactic acidosis might be a contributing factor to these episodes. Planning to recheck a hemoglobin A1c while he was here 6. Metastatic prostate cancer-no clear evidence of new [place] based on symptoms anyway. I am going to go ahead and recheck a PSA see if this is jumped up significantly do suggest more active prostate cancer disease at this time. 7. Anxiety-huge component of patient's overall presentation in my opinion. Continue with duloxetine, but I think he could benefit from a higher dose which I will start here in the hospital 8. Coronary disease-currently stable. He was had significant issues with coronary disease which was the original reason he was seen by palliative care at [facility] and started on the oral liquid morphine. Does not appear to be an active issue at this time. Continue current meds Time-Based Coding :: [TOTAL MINUTES] spent with patient and on the chart (including review of chart, obtaining history, exam, reviewing outside data, placing orders, documenting exam and treatment plan, and counseling patient) on [DATE]. PROFEE [employer] Document charge(s): Yes Charge Codes Subsequent inpatient/observation care: 42009
[2024-12-31] MEDS: APIXABAN 5 MG TABLET 2.5 MG PO ×2 (08:22→20:15)
[2024-12-31] MEDS: polyethylene glycoL 3350 17 GM POWD.PACK PO (08:22)
[2024-12-31] MEDS: METOPROLOL ER 50 MG TABLET 100 MG PO ×2 (08:23→20:14)
[2024-12-31] MEDS: PANTOPRAZOLE DR 40 MG TABLET PO ×2 (08:23→20:14)
[2024-12-31] MEDS: DULOXETINE 20 MG CAPSULE 40 MG PO (08:23)
[2024-12-31] MEDS: CLOPIDOGREL 75 MG TABLET PO (08:24)
[2024-12-31] MEDS: lisinopriL 10 MG TABLET PO (08:24)
[2024-12-31] MEDS: SENNOSIDES 8.6 MG TABLET PO (08:25)
[2024-12-31] MEDS: MORPHINE IR 15 MG TABLET PO ×2 (08:29→22:31)
[2024-12-31] MEDS: TAMSULOSIN 0.4 MG CAPSULE PO (08:35)
[2024-12-31] MEDS: SODIUM CHLORIDE 0.9% FLUSH 10 ML IV ×2 (08:36→20:15)
[2024-12-31 09:08] LABS: Add Manual Diff / Slide Review NO; Basophils Absolute Auto 0 /uL (0-100); Basophils Percent Auto 0.9 % (0-2); Eosinophils Absolute Auto 300 /uL (0-450); Eosinophils Percent Auto 6.9 % (2-4); Hematocrit 31.9 % (41-53); Hemoglobin 11.2 g/dL (13.5-17.5); Lymphocytes Absolute Auto 1200 /uL (1100-4500); Lymphocytes Percent Auto 31.8 % (25-40); Mean Corpuscular HGB Conc 35.3 % (30-36); Mean Corpuscular Hemoglobin 32.5 PG (26-34); Mean Corpuscular Volume 92.1 fL (80-100); Monocytes Absolute Auto 500 /uL (0-900); Neutrophils Absolute Auto 1700 /uL (1500-7000); Neutrophils Percent Auto 47.4 % (50-75); Platelet Count 105 X10^3/uL (150-400); Red Blood Cell Count 3.46 X10^6/uL (4.5-5.9); Red Cell Distribution Width 15.4 % (11.6-14.8); White Blood Cell Count 3.6 X10^3/uL (4.5-11.0)
[2024-12-31 09:16] LABS: Hemoglobin A1C% w Est Avg Glu 5.5 % (4.0-6.0)
[2024-12-31 09:22] LABS: BUN Creatinine Ratio 19.3 (6-22); Blood Urea Nitrogen 21 mg/dL (9-20); Carbon Dioxide 25 mmol/L (22-32); Chloride 100 mmol/L (98-107); Estimated Glomerular Filt Rate > 60 mL/min (>60); Glucose 209 mg/dL (80-110); HEMOLYSIS < 15 (0-50); Sodium 133 mmol/L (137-145)
[2024-12-31 09:53] LABS: Prostate Specific Antigen 17.7 ng/mL (0.10-4.00)
--- NOTE | 2024-12-31 10:29 | DIET.CONS ---
Dietary Consultation Note Admission Date: 12/30/2024 13:27 Assessment: 69 y M admitted for pain management and elevated BP and nausea. Dietitian screened for low MNA. PMH of prostate cancer with mets to the bone. Hx of N/V and diet controlled DM with last A1c 5.5% on 12/31/24. Per team rounds, GOC to be clarified for this admission, has previously declined hospice. Recent PO intakes 75%. DFM reviewed for meal composition. PCP note on 12/27/24 notes that caregiver reports pt eating and hydrating well recently. Ht: 170.18 cm Wt: 59.421 kg BMI: 20.5 UBW: 09/15/24 59.5 kg, weight varies between 58-63 kg within last month. 58.513 kg on 11/30/24, 61 kg on 12/12/24 Last BM: 12/27/24 (12/28/24 19:31) MNA: 7 Armando Score: 21 Diet: 12/28/24 Breakfast Carbohydrate Consistent Diet Diet Modifications: Carbohydrate level: Medium (3 CHO) Reflex DM orders: No Nutrition Percent Meal Consumed 75% 12/30/24 18:00 Percent Meal Consumed 75% 12/29/24 18:50 Labs: RBC 3.46 X10^6/uL (4.5-5.9) L 12/31/24 08:59 Hgb 11.2 g/dL (13.5-17.5) L 12/31/24 08:59 Hct 31.9 % (41-53) L 12/31/24 08:59 Creatinine 1.09 mg/dL (0.66-1.25) 12/31/24 08:59 Hemoglobin A1c 5.5 % (4.0-6.0) 12/31/24 08:59 Monitoring/Evaluations: GOC and PO intakes Electronically Signed by: Lacy Ortega 12/31/24 10:29 Clinical Dietitian [address] [id number]
--- NOTE | 2024-12-31 14:52 | CM.DPNOTE ---
DCP Note FORMULA MIXER reviewed EMR per Dr. Vasqeus, anticipate dc home tomorrow. potential for hospice still. FORMULA MIXER saw pt ambulating hallway with MANAGER CONTRACTING as standby assist earlier in day. FORMULA MIXER met with pt and CG Lisandra in room. confirm preference to dc home without hospice at this point home with CG. concerned about lack of BM and would like to have a BM prior to dc. denies any other CM/DCP needs at this time. P: SUSAN tomorrow with OP f/u likely, transport with CG/CG support at home. no CM needs at this time, will continue to follow closely in case any additional DCP/CM needs arise/if pt decides to move forward with hospice referral JAYME Andrade
[2024-12-31] MEDS: MAGNESIUM HYDROXIDE 30 ML UDC PO (15:45)
[2024-12-31] MEDS: HYDROMORPHONE 2 MG INJ IV (15:45)
[2024-12-31 20:00] VITALS: BP 133/87; PULSE 61; RESP 18; TEMP 35.8; O2SAT 98
[2024-12-31 20:14] VITALS: BP 133/87; PULSE 61
[2024-12-31] MEDS: ATORVASTATIN 20 MG TABLET 80 MG PO (20:15)
[2024-12-31 20:30] VITALS: BP 125/80; PULSE 58
[2025-01-01] MEDS: HYDROMORPHONE 1 MG INJ IV (00:50)
[2025-01-01] MEDS: MORPHINE IR 15 MG TABLET PO (05:40)
--- NOTE | 2025-01-01 06:43 | PM.DS.IH.1 ---
History of Present Illness History of Present Illness Date Patient Seen: 01/01/25 Time Patient Seen: 06:44 Chief complaint: Stomach caner, N/V, dehydration Narrative: Pt is a 69yo man with metastatic prostate cancer, DM type 2, HTN, paroxysmal atrial fibrillation, CAD, and anxiety who presents with severe pain and elevated blood pressures at home. The pt was hospitalized from 12/16-12/19 due to nausea, vomiting, and ELADIO. The pt he has been gradually working on weaning down on his morphine at home so that he can be more alert and not have as many issues with constipation. He has decreased down to BID dosing when he used to be taking is QID. The pt states that last night around 8pm he had acute onset of severe lower abdominal pain. It persisted since then. The pain is sharp in nature, and feels similar to pain he has had in the past. He states that he did have two BMs today, the first firm and the second softer and more large. He denies any fevers or chills. He has had increased nausea since the pain intensified, but denies any emesis. He took the liquid morphine this morning without any significant relief in his pain. The pt took his BP this morning and it was in the low 200s/100s. He took a bath to try and relax and alleviate some of the pain. When he came out of the bath he repeated his BP and it was still elevated to > 200/100. This is what prompted him to contact EMS. The pt had received 10mg of morphine prior to arrival to the hospital. In the ED, the pts BP was in the 200s/100s. It took his RN over an hour to obtain IV access due to his poor veins. He received 1mg of Dilaudid and then 100mcg of Fentanyl and his pain then improved. Currently the pt states that his pain is 6/10 on the pain scale. It remains in his lower abdomen, however he states that all of his joints hurt as well. {from Dr. Bhat's H&P 12/28/24} Discharge Providers Provider Date of admission: 12/30/24 13:27 Discharge Date: 01/01/25 Primary care physician: Khang Vasques MD Consults: 12/28/24 19:37 Consult to Dietitian, Adult Routine Comment: Reason For Exam: weight loss Discharge provider: Khang Vasques MD Summary Hospital Course Discharge Diagnosis: 1. Uncontrolled hypertension 2. Nausea and vomiting 3. Lower abdominal pain 4. Malignant neoplasm of prostate metastatic to bone 5. Coronary artery disease involving [place] coronary artery of [place] heart without angina pectoris 6. Paroxysmal atrial fibrillation 7. Diabetes type 2 8. Generalized anxiety disorder 9. Chronic hepatitis secondary to chronic hepatitis C Hospital Course: As above patient was admitted to the hospital presenting with nausea vomiting abdominal pain and modestly severe hypertension. He was treated with parental antiemetics and parental narcotic pain medications. With this is abdominal symptoms improved dramatically allowing him to take his usual medications which help to control his blood pressure etcetera Patient continued to have significant pain requiring parental narcotics. Fentanyl patch was applied as well as a scopolamine patch for persistent symptoms of abdominal pain nausea and vomiting. These were continued at time of discharge In the 24 hours leading up to discharge patient had near complete resolution of his lower abdominal symptoms including his nausea and vomiting perhaps in part due to above interventions No new etiology for patient's symptoms was discovered on this hospitalization. Patient has had multiple evaluations for this over the last several months and we have been unable to find a clear etiology. Patient does have prostate cancer with evidence of metastatic disease to bone. Repeat PSA does show an increase with PSA now at 17+. He was felt as though this is a significant component to patient's ongoing presentation with his generalized pain Patient's diabetes recently had his metformin discontinued because of persistent lactic acidosis. A1c remains quite normal. No concerns about diabetes at this time Patient was without any cardiac symptoms at this time. Patient previously been evaluated for palliative care on the basis of uncontrolled and unmanageable cardiac symptoms and he was not felt to be a candidate for any further cardiac interventions but that is seems to have significantly improved over the last several months Time of discharge patient's vital signs were well controlled, he was able to eat without particular difficulty. He was felt to be back to baseline and therefore stable for discharge home. He will be started on fentanyl patch for assistance in pain management as well as scopolamine patch for ongoing assistance with his GI symptoms, since these seem to be quite effective during this hospitalization Status at Discharge Cognitive/behavioral status at discharge: at baseline, oriented Functional status at discharge: independent ambulation Overall status at discharge: patient is progressing back to baseline Time Spent with Patient Time spent: Greater than 30 minutes Exam Vital Signs (past 8 hours): Oxygen Delivery Method Room Air Oxygen Flow Rate 0 Objective Labs 12/31/24 08:59 12/31/24 08:59 Labs: Laboratory Results - last 24 hr 12/31/24 08:59 WBC 3.6 L RBC 3.46 L Hgb 11.2 L Hct 31.9 L MCV 92.1 MCH 32.5 MCHC 35.3 RDW 15.4 H Plt Count 105 L Neut % (Auto) 47.4 L Lymph % (Auto) 31.8 Brown % (Auto) 13.0 Eos % (Auto) 6.9 H Baso % (Auto) 0.9 Neut # (Auto) 1700 Lymph # (Auto) 1200 Brown # (Auto) 500 Eos # (Auto) 300 Baso # (Auto) 0 Sodium 133 L Potassium 4.0 Chloride 100 Carbon Dioxide 25 BUN 21 H Creatinine 1.09 Estimated GFR > 60 BUN/Creatinine Ratio 19.3 Glucose 209 H Hemoglobin A1c 5.5 Calcium 9.0 Prostate Specific Ag 17.7 H PFSH Medical History Acute upper gastrointestinal bleeding Malignant neoplasm of prostate metastatic to bone Hypertensive urgency Colitis Hematuria Uncomplicated opioid dependence Generalized anxiety disorder Cannabis abuse Prostate cancer (~05/2019) Paroxysmal A-fib Transaminitis Kidney stones Diverticulosis of large intestine (03/31/12) Chronic hepatitis Coronary artery disease involving [place] coronary artery of [place] heart without angina pectoris (~2006) Essential hypertension Mixed hyperlipidemia Surgical History H/O heart artery stent (~2006) Hx of inguinal hernia surgery (~03/07/14) Hx of inguinal hernia surgery (~09/20/08) Status post laminectomy History of angioplasty (~12/2006) Social History marital status: unmarried,single number of children: 3 household members: caregiver lives independently: Yes caregiver/support person: No housing: house pets and animals: No education level: high school occupational status: other 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 He will have the addition of a fentanyl patch at 12.5 mcg and that is scopolamine patch Follow-up with PCP Dr. Vasques in approximately 1 week's time Discharge Plan Discharge Plan Patient Disposition: Home Discharge orders & Medications Prescriptions: New scopolamine base [Transderm-Scop] 1 mg over 3 days Patch 3 Day 1 patch topical Q72H Qty: 10 0RF duloxetine 40 mg capsule, delayed rel sprinkle 40 mg PO DAILY Qty: 90 3RF Continued morphine 10 mg/5 mL solution 10 mg PO Q6H PRN (Reason: pain) Qty: 100 0RF Eliquis 2.5 mg tablet 2.5 mg PO BID sennosides [senna] 8.6 mg tablet 8.6 mg PO DAILY nitroglycerin 0.4 mg tablet, sublingual 0.4 mg sublingual Q5-15M PRN (Reason: Chest Pain) ondansetron HCl 4 mg tablet 4 mg PO Q8H PRN (Reason: Nausea And Vomiting) morphine 15 mg tablet 7.5 - 15 mg PO Q3H MDD 90mg PRN (Reason: chest pain/bone pain) Qty: 150 0RF lisinopril 10 mg tablet 10 mg PO DAILY metoprolol succinate 100 mg tablet extended release 24 hr 100 mg PO BID methocarbamol 500 mg tablet 500 mg PO 3XD atorvastatin 80 mg tablet 80 mg PO ONCE PM isosorbide mononitrate 30 mg tablet extended release 24 hr 30 mg PO QAM tamsulosin 0.4 mg capsule 0.4 mg PO DAILY pantoprazole 40 mg tablet,delayed release (DR/EC) 40 mg PO BID clopidogrel 75 mg tablet 75 mg PO DAILY promethazine 25 mg suppository 25 mg VT Q4-6H PRN (Reason: nausea and vomiting) Qty: 12 0RF Discontinued duloxetine [Cymbalta] 20 mg capsule,delayed release(DR/EC) 20 mg PO DAILY Qty: 90 3RF No Action fentanyl 12 mcg/hr patch 72 hour 12 mcg topical Q72H Qty: 10 0RF Follow up/Referrals: Khang Vasques MD [Primary Care Provider] - 1 Week Discharge Health Status Multidrug resistant organism: No MDRO Diet/Activity/Treatments Diet: Diet as Tolerated and Carb-consistent/Diabetic Visit Report/Discharge Packet Instructions: DI for Prescription Opioid Use, Duloxetine, Scopolamine Transdermal Patch Stand Alone Forms: Patient Portal/API, Stroke Signs & Symptoms Discharge Data Primary Care Provider: Khang Vasques PROFEE Charge Codes Discharge inpatient/observation: [id number]
[2025-01-01 08:00] VITALS: BP 171/78; PULSE 57; RESP 18; TEMP 36.1; O2SAT 99
[2025-01-01] MEDS: diphenhydrAMINE 25 MG TABLET 50 MG PO (08:49)
[2025-01-01] MEDS: APIXABAN 5 MG TABLET 2.5 MG PO (08:49)
[2025-01-01] MEDS: CLOPIDOGREL 75 MG TABLET PO (08:49)
[2025-01-01] MEDS: ASPIRIN EC 81 MG TABLET PO (08:49)
[2025-01-01 08:50] VITALS: BP 171/78; PULSE 60
[2025-01-01] MEDS: SENNOSIDES 8.6 MG TABLET PO (08:50)
[2025-01-01] MEDS: DULOXETINE 20 MG CAPSULE 40 MG PO (08:50)
[2025-01-01] MEDS: TAMSULOSIN 0.4 MG CAPSULE PO (08:50)
[2025-01-01] MEDS: METOPROLOL ER 50 MG TABLET 100 MG PO (08:50)
[2025-01-01] MEDS: SODIUM CHLORIDE 0.9% FLUSH 10 ML IV (08:50)
[2025-01-01] MEDS: lisinopriL 10 MG TABLET PO (08:50)
[2025-01-01] MEDS: PANTOPRAZOLE DR 40 MG TABLET PO (08:50)
--- NOTE | 2025-01-01 09:08 | CM.DPNOTE ---
DCP note RADIO ELECTRICIAN reviewed EMR per chart, pt had a BM overnight. per Caprice note, cleared to dc home with CGs today. RADIO ELECTRICIAN met with pt briefly in room. confirmed eager to dc home, CG on way for ride. denies other CM/DCP needs. RADIO ELECTRICIAN messaged TCM. P: dc today with CG support and OP f/u. no CM needs identified at this time, will continue to follow in case any arise. JAYME Andrade
[2025-01-01 09:20] VITALS: PULSE 60
[2025-01-01] MEDS: SCOPOLAMINE 1 PATCH TOP (10:06)
[2025-01-01] MEDS: fentaNYL 12 MCG/PATCH TOP (10:36)
--- NOTE | 2025-01-01 10:49 | PC.NURSE ---
Discharge Note Patient A&O to baseline, VSS, RA, no complaints of pain/discomfort. Patient agreeable to discharge plan. Scope and Fentanyl patch changed prior to discharge. Discharge packet reviewed with patient, all questions/concerns addressed. PIV discontinued. Patient able to dress self and pack all belongings with minimal assistance. Patient taken down via wheelchair to POV accompanied by caregivers.
== END 2025-01-01 10:45 | disposition home or self-care (01) | DRG 948 ==
LOC: ED 15:25 → AC 16:01
PROVIDERS: Family Medicine; Admitting Provider Family Medicine; Emergency Provider Emergency Medicine; PCP Internal Medicine; Referring Provider Emergency Medicine; Visit Provider Internal Medicine
DX: G89.3 Neoplasm related pain (acute) (chronic) (principal); C79.51 Secondary malignant neoplasm of bone; I10 Essential (primary) hypertension; C61 Malignant neoplasm of prostate; F17.200 Nicotine dependence, unspecified, uncomplicated; K59.00 Constipation, unspecified; E11.9 Type 2 diabetes mellitus without complications; I48.0 Paroxysmal atrial fibrillation; I25.10 Atherosclerotic heart disease of native coronary artery without angina pectoris; R11.2 Nausea with vomiting, unspecified; R10.30 Lower abdominal pain, unspecified; F41.1 Generalized anxiety disorder; B18.2 Chronic viral hepatitis C; E78.5 Hyperlipidemia, unspecified; Z79.891 Long term (current) use of opiate analgesic; Z66 Do not resuscitate; Z79.01 Long term (current) use of anticoagulants
CPT/HCPCS: 36415; 80048; 80053; 81001; 83036; 83735; 84153; 85025; 96361; 96374; 96375; 99284; G0378; J1171; J1200; J2405; J2765; J3010

== ENCOUNTER 2025-01-13 11:36 | Emergency (ER) | payer MEDICARE, OTHER, SELFPAY ==
[2024-12-28 19:31] VITALS: BMI 20.5
[2025-01-13] VITALS (14 sets, daily range): BP systolic 113–254; BP diastolic 80–138; PULSE 63–91; RESP 11–20; TEMP 36.6; O2SAT 96–100
--- NOTE | 2025-01-13 11:47 | EKG_ITS ---
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
[2025-01-13 12:18] LABS: Add Manual Diff / Slide Review NO; Basophils Absolute Auto 0 /uL (0-100); Basophils Percent Auto 0.8 % (0-2); Eosinophils Absolute Auto 100 /uL (0-450); Eosinophils Percent Auto 1.3 % (2-4); Hematocrit 40.4 % (41-53); Hemoglobin 14.3 g/dL (13.5-17.5); Lymphocytes Absolute Auto 900 /uL (1100-4500); Lymphocytes Percent Auto 15.8 % (25-40); Mean Corpuscular HGB Conc 35.4 % (30-36); Mean Corpuscular Hemoglobin 32.3 PG (26-34); Mean Corpuscular Volume 91.4 fL (80-100); Monocytes Absolute Auto 600 /uL (0-900); Monocytes Percent Auto 10.2 % (3-14); Neutrophils Absolute Auto 4300 /uL (1500-7000); Neutrophils Percent Auto 71.9 % (50-75); Platelet Count 143 X10^3/uL (150-400); Red Blood Cell Count 4.41 X10^6/uL (4.5-5.9); White Blood Cell Count 5.9 X10^3/uL (4.5-11.0)
[2025-01-13] MEDS: HYDROMORPHONE 1 MG INJ IV ×2 (12:20→13:06)
[2025-01-13 12:29] LABS: Lactate (Lactic Acid) 3.4 mmol/L (0.7-2.1)
[2025-01-13 12:30] LABS: Alanine Aminotransferase 97 IU/L (<50); Albumin Globulin Ratio 1.3 (1.0-2.8); Alkaline Phosphatase 133 U/L (38-126); Aspartate Aminotransferase 100 IU/L (17-59); BUN Creatinine Ratio 15.2 (6-22); Bilirubin Total 1.7 mg/dL (0.2-1.3); Blood Urea Nitrogen 15 mg/dL (9-20); Calcium 10.2 mg/dL (8.4-10.2); Carbon Dioxide 19 mmol/L (22-32); Chloride 104 mmol/L (98-107); Estimated Glomerular Filt Rate > 60 mL/min (>60); Globulin 3.8 g/dL (1.7-4.1); Glucose 207 mg/dL (70-99); Lipase 100 U/L (23-300); Potassium 4.6 mmol/L (3.4-5.1); Sodium 138 mmol/L (137-145); Total Protein 8.8 g/dL (6.3-8.2)
[2025-01-13 12:37] LABS: HEMOLYSIS 99 (0-50)
[2025-01-13 12:49] LABS: Bacteria Urine None Seen; Culture Indicated Urine Cult Not Indicated; RBC Urine None Seen (0-5/HPF); Squamous Epithelial Cell Urine 0-1 /HPF (0-5/HPF); Urine Volume 10mL (spun); WBC Urine 0-1/HPF (0-5/HPF)
--- NOTE | 2025-01-13 13:15 | ED_ITS ---
HPI - Recheck/Abnormal Lab/Rx General Chief Complaint: Recheck/Abnormal Lab/Rx Stated Complaint: pain management Time Seen by Provider: 01/13/25 12:06 Source: EMS Mode of arrival: EMS History of Present Illness HPI narrative: Patient is a 69-year-old history of metastatic prostate cancer currently under palliative care recently admitted with ELADIO however creatinine has returned to normal he has also been admitted for anemia he was chronic ongoing pain presents today with a ongoing pain. He reports that whenever he was in pain his blood pressure gets very high. He denies any new chest pain abdominal pain or any new pain. He was discharged 01/01/2025 on fentanyl patches to help with his chronic pain. However he reports it fentanyl patches did not help him and actually caused him diarrhea. He is not dizzy or lightheaded no nausea or vomiting Related Data Home Medications Medication Instructions Recorded Confirmed apixaban 2.5 mg tablet (Eliquis) 2.5 mg PO BID 03/29/24 12/28/24 nitroglycerin 0.4 mg sublingual 0.4 mg sublingual Q5-15M PRN Chest 03/29/24 12/28/24 tablet Pain ondansetron HCl 4 mg tablet 4 mg PO Q8H PRN Nausea And Vomiting 03/29/24 12/28/24 sennosides 8.6 mg tablet (senna) 8.6 mg PO DAILY constipation 03/29/24 12/28/24 lisinopril 10 mg tablet 10 mg PO DAILY 08/19/24 12/28/24 atorvastatin 80 mg tablet 80 mg PO ONCE PM 12/28/24 12/28/24 clopidogrel 75 mg tablet 75 mg PO DAILY 12/28/24 12/28/24 isosorbide mononitrate 30 mg 30 mg PO QAM 12/28/24 12/28/24 tablet,extended release 24 hr methocarbamol 500 mg tablet 500 mg PO 3XD 12/28/24 12/28/24 metoprolol succinate 100 mg 100 mg PO BID 12/28/24 12/28/24 tablet,extended release 24 hr pantoprazole 40 mg tablet,delayed 40 mg PO BID 12/28/24 12/28/24 release tamsulosin 0.4 mg capsule 0.4 mg PO DAILY 12/28/24 12/28/24 Previous Rx's Medication Instructions Recorded promethazine 25 mg rectal 25 mg MI Q4-6H PRN nausea and 11/18/20 suppository vomiting #12 ea morphine 10 mg/5 mL oral solution 10 mg (5 mL) PO Q6H PRN pain #100 08/07/24 mL morphine 15 mg immediate release 7.5 - 15 mg (0.5 - 1 x 15 mg) PO 12/14/24 tablet Q3H PRN chest pain/bone pain #150 tabs scopolamine base 1 mg over 3 days 1 patch topical Q72H #10 ea 12/31/24 transdermal patch (Transderm-Scop) fentanyl 12 mcg/hr transdermal 12 mcg topical Q72H #10 ea 01/01/25 patch duloxetine 40 mg capsule,delayed 40 mg PO DAILY #90 caps 01/03/25 release Allergies Allergy/AdvReac Type Severity Reaction Status Date / Time No Known Drug Allergies Allergy Verified 12/27/24 10:09 Patient History Medical History Malignant neoplasm of prostate metastatic to bone Acute upper gastrointestinal bleeding Hypertensive urgency Colitis Hematuria Uncomplicated opioid dependence Generalized anxiety disorder Cannabis abuse Prostate cancer (~05/2019) Paroxysmal A-fib Transaminitis Kidney stones Diverticulosis of large intestine (03/31/12) Chronic hepatitis Coronary artery disease involving inaja coronary artery of 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 HEENT: Head atraumatic,EOMI, pupils reactive, face symmetric, moist mucous membranes CARDIOVASCULAR: Regular rate and rhythm without murmurs, rubs or gallops. RESPIRATORY: Breath sounds equal bilaterally, no wheezes rales or rhonchi. ABDOMEN: Soft, mildly tender no significant distention no guarding or rebound EXTREMITIES: Normal range of motion, no clubbing or edema. Neurovascularly intact NEUROLOGICAL: Alert and oriented x4.Normal gait and speech. Cranial nerves II through XII grossly intact. SKIN: Warm, dry, no laceration, no petechiae, no rashes or lesions. 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 - [employer]ge[employer] Repairer Stat Discontinued Medications Hydromorphone HCl (Hydromorphone 1 Mg Inj) 1 mg IV NOW ONE Stop: 01/13/25 12:12 Last Admin: 01/13/25 12:20 Dose: 1 mg Documented By: Hydromorphone HCl (Hydromorphone 1 Mg Inj) 1 mg IV NOW ONE Stop: 01/13/25 13:04 Last Admin: 01/13/25 13:06 Dose: 1 mg Documented By: Hydromorphone HCl (Hydromorphone 0.5 Mg Inj) 0.5 mg IV NOW ONE Stop: 01/13/25 15:10 Last Admin: 01/13/25 15:33 Dose: 0.5 mg Documented By: THOMAS Sodium Chloride (Normal Saline 0.9%) 1,000 mls @ 1,000 mls/hr IV BOLUS ONE Stop: 01/13/25 14:32 Last Infusion: 01/13/25 14:48 Dose: Infused Documented By: Admin: 01/13/25 13:34 Dose: 1,000 mls/hr Documented By: THOMAS Ondansetron HCl (Ondansetron 4 Mg/2 Ml Inj) 4 mg IV NOW PRN PRN Reason: Nausea And Vomiting Ondansetron HCl (Ondansetron 4 Mg Odt) 4 mg PO NOW PRN PRN Reason: Nausea And Vomiting Vital Signs Vital signs: Vital Signs - 8 hr 01/13/25 11:40 01/13/25 11:41 01/13/25 11:42 Temperature Pulse Rate 72 67 Respiratory Rate 16 Blood Pressure 248/126 H Pulse Oximetry 100 100 100 Oxygen Delivery Method Room Air 01/13/25 11:42 01/13/25 11:53 01/13/25 12:00 Temperature 97.8 F Pulse Rate 64 Respiratory Rate Blood Pressure 248/126 H Pulse Oximetry 99 Oxygen Delivery Method 01/13/25 12:00 01/13/25 12:30 01/13/25 12:30 Temperature Pulse Rate 65 65 Respiratory Rate 11 L 11 L Blood Pressure 254/131 H Pulse Oximetry 100 100 Oxygen Delivery Method 01/13/25 12:30 01/13/25 13:00 01/13/25 13:00 Temperature Pulse Rate 63 Respiratory Rate 13 Blood Pressure 242/124 H 250/138 H Pulse Oximetry 99 Oxygen Delivery Method 01/13/25 13:28 01/13/25 13:28 01/13/25 13:30 Temperature Pulse Rate 89 91 H Respiratory Rate 12 17 Blood Pressure 139/91 H Pulse Oximetry 98 98 Oxygen Delivery Method 01/13/25 13:30 01/13/25 14:00 01/13/25 14:30 Temperature Pulse Rate 76 77 Respiratory Rate 16 16 Blood Pressure 133/88 134/84 113/80 Pulse Oximetry 96 98 Oxygen Delivery Method 01/13/25 15:00 01/13/25 15:00 01/13/25 15:30 Temperature Pulse Rate 76 69 Respiratory Rate 20 16 Blood Pressure 138/81 158/90 H Pulse Oximetry 97 98 Oxygen Delivery Method 01/13/25 16:00 01/13/25 16:00 Temperature Pulse Rate 83 Respiratory Rate 18 Blood Pressure 149/91 H Pulse Oximetry 97 Oxygen Delivery Method Room Air MDM - Recheck/Abnormal Lab/Rx Lab Data 01/13/25 11:47 01/13/25 11:47 Labs: Lab Results 05/01/0401/13/25 01/13/25 Range/Units 11:44 11:47 12:23 WBC 5.9 (4.5-11.0) X10^3/uL RBC 4.41 L (4.5-5.9) X10^6/uL Hgb 14.3 (13.5-17.5) g/dL Hct 40.4 L (41-53) % MCV 91.4 (80-100) fL MCH 32.3 (26-34) PG MCHC 35.4 (30-36) % RDW 15.0 H (11.6-14.8) % Plt Count 143 L (150-400) X10^3/uL Neut % (Auto) 71.9 (50-75) % Lymph % (Auto) 15.8 L (25-40) % [place]linger % (Auto) 10.2 (3-14) % Eos % (Auto) 1.3 L (2-4) % Baso % (Auto) 0.8 (0-2) % Neut # (Auto) 4300 (3826-8489) /uL Lymph # (Auto) 900 L (8802-7504) /uL Bollinger # (Auto) 600 (0-900) /uL Eos # (Auto) 100 (0-450) /uL Baso # (Auto) 0 (0-100) /uL Sodium 138 (137-145) mmol/L Potassium 4.6 (3.4-5.1) mmol/L Chloride 104 (98-107) mmol/L Carbon Dioxide 19 L (22-32) mmol/L BUN 15 (9-20) mg/dL Creatinine 0.99 (0.66-1.25) mg/dL Estimated GFR > 60 (>60) mL/min BUN/Creatinine Ratio 15.2 (6-22) Glucose 207 H (70-99) mg/dL Lactate 3.4 H (0.7-2.1) mmol/L Calcium 10.2 (8.4-10.2) mg/dL Total Bilirubin 1.7 H (0.2-1.3) mg/dL AST 100 H (17-59) IU/L ALT 97 H (<50) IU/L Alkaline Phosphatase 133 H (38-126) U/L Total Protein 8.8 H (6.3-8.2) g/dL Albumin 5.0 (3.5-5.0) g/dL Globulin 3.8 (1.7-4.1) g/dL Albumin/Globulin Ratio 1.3 (1.0-2.8) Lipase 100 (23-300) U/L Urine RBC None seen (0-5/HPF) Urine WBC 0-1/hpf (0-5/HPF) Ur Squamous Epith Cells 0-1 /hpf (0-5/HPF) Urine Bacteria None seen (None) Ur Culture Indicated? Cult not indicated Vol Urine Centrifuged 10ml (spun) 01/13/25 Range/Units 13:47 WBC (4.5-11.0) X10^3/uL RBC (4.5-5.9) X10^6/uL Hgb (13.5-17.5) g/dL Hct (41-53) % MCV (80-100) fL MCH (26-34) PG MCHC (30-36) % RDW (11.6-14.8) % Plt Count (150-400) X10^3/uL Neut % (Auto) (50-75) % Lymph % (Auto) (25-40) % Bollinger % (Auto) (3-14) % Eos % (Auto) (2-4) % Baso % (Auto) (0-2) % Neut # (Auto) (3668-5279) /uL Lymph # (Auto) (3672-1835) /uL Bollinger # (Auto) (0-900) /uL Eos # (Auto) (0-450) /uL Baso # (Auto) (0-100) /uL Sodium (137-145) mmol/L Potassium (3.4-5.1) mmol/L Chloride (98-107) mmol/L Carbon Dioxide (22-32) mmol/L BUN (9-20) mg/dL Creatinine (0.66-1.25) mg/dL Estimated GFR (>60) mL/min BUN/Creatinine Ratio (6-22) Glucose (70-99) mg/dL Lactate 2.0 (0.7-2.1) mmol/L Calcium (8.4-10.2) mg/dL Total Bilirubin (0.2-1.3) mg/dL AST (17-59) IU/L ALT (<50) IU/L Alkaline Phosphatase (38-126) U/L Total Protein (6.3-8.2) g/dL Albumin (3.5-5.0) g/dL Globulin (1.7-4.1) g/dL Albumin/Globulin Ratio (1.0-2.8) Lipase (23-300) U/L Urine RBC (0-5/HPF) Urine WBC (0-5/HPF) Ur Squamous Epith Cells (0-5/HPF) Urine Bacteria (None) Ur Culture Indicated? Vol Urine Centrifuged Urine Dip Bedside Urine Glucose 100 mg/dl Bedside Urine Bilirubin - Negative Bedside Urine Ketone +/- 5 Urine Specific [place] 1.015 Bedside Urine Occult Blood - Negative Bedside Urine pH 6.5 Bedside Urine Protein + 30 Bedside Urine Urobilinogen - Negative Bedside Urine Nitrite - Negative Bedside Urine Leukocytes - Negative Esterase MDM Narrative Medical decision making narrative: Patient is 69-year-old male who has metastatic prostate cancer under palliative care presents today with some diarrhea and increasing pain. Reports he was discharged recently on fentanyl patches but says it they do not quite work for him. Even cause some diarrhea. He is not currently having any kind of diarrhea. Blood pressure is high no evidence of dehydration or ELADIO today. He was given 2 doses of Dilaudid immediately for pain which seemed to help both his blood pressure and his pain. We discussed imaging however he has had lots of imaging recently does not feel like he needs any further imaging today. Blood work has been reviewed WBC 5.9 hemoglobin 14.3 hematocrit 40.4 platelets 143 Electrolytes within normal limits creatinine 0.99 previously 1.90 Lactate 3.4 with repeat 2.0 Bilirubin liver enzymes are all elevated but at their baseline. Bilirubin 1.7 AST 100 ALT 97 alk-phos 133 Patient feeling better after pain medication. I have looked it recently prescribed liquid morphine. At this time I recommend he talk to his primary care provider who she was manage his chronic ongoing pain. We discussed hospice social work when in there. At this time patient would like to continue with palliative care. Discharge Plan Departure Patient Disposition: Home Clinical Impression: Malignant neoplasm of prostate metastatic to bone Activity Restrictions/Additional Instructions: *You have been diagnosed with chronic pain metastatic cancer *What to do: At this time please talk with your primary about ongoing pain control. I recommend that you take the morphine that was prescribed to you I hope you feel better soon *Continue to take medications as directed *Follow up with your primary care provider in 2-3 days or call [phone] *Return to ER if you should have any new, worsening or concerning symptoms Prescriptions: No Action morphine 10 mg/5 mL solution 10 mg PO Q6H PRN (Reason: pain) Qty: 100 0RF fentanyl 12 mcg/hr patch 72 hour 12 mcg topical Q72H Qty: 10 0RF duloxetine 40 mg capsule,delayed release(DR/EC) 40 mg PO DAILY Qty: 90 3RF Eliquis 2.5 mg tablet 2.5 mg PO BID sennosides [senna] 8.6 mg tablet 8.6 mg PO DAILY nitroglycerin 0.4 mg tablet, sublingual 0.4 mg sublingual Q5-15M PRN (Reason: Chest Pain) ondansetron HCl 4 mg tablet 4 mg PO Q8H PRN (Reason: Nausea And Vomiting) morphine 15 mg tablet 7.5 - 15 mg PO Q3H MDD 90mg PRN (Reason: chest pain/bone pain) Qty: 150 0RF lisinopril 10 mg tablet 10 mg PO DAILY metoprolol succinate 100 mg tablet extended release 24 hr 100 mg PO BID methocarbamol 500 mg tablet 500 mg PO 3XD atorvastatin 80 mg tablet 80 mg PO ONCE PM isosorbide mononitrate 30 mg tablet extended release 24 hr 30 mg PO QAM tamsulosin 0.4 mg capsule 0.4 mg PO DAILY pantoprazole 40 mg tablet,delayed release (DR/EC) 40 mg PO BID clopidogrel 75 mg tablet 75 mg PO DAILY scopolamine base [Transderm-Scop] 1 mg over 3 days Patch 3 Day 1 patch topical Q72H Qty: 10 0RF promethazine 25 mg suppository 25 mg MI Q4-6H PRN (Reason: nausea and vomiting) Qty: 12 0RF Referrals: Khang aVsques MD [Primary Care Provider] - Stand Alone Forms: Patient Portal/API/Survey
[2025-01-13] MEDS: SODIUM CHLORIDE 0.9% 1,000 ML 1000 ML IV (13:34)
[2025-01-13 13:58] LABS: Reflexed Lactate in 2 Hours Y
[2025-01-13] MEDS: HYDROMORPHONE 0.5 MG INJ IV (15:33)
--- NOTE | 2025-01-13 15:55 | CM.SWNOTE ---
ED FUND CONTROLLER Assessment Note: Pt is a 69yo male, resident of [place], is seen in the ED for pain management. Patient has a hx of prostate CA with mets. Pt lives in a house alone but has support from farm instructor and neighbor/POA. Pt's Primary Care Provider is Dr. Khang Vasques and insurance is Medicare. Reviewed chart and discussed with multidisciplinary team pt's medical status and initial discharge needs. Per Provider, with pt's CA progression, hospice would be recommended but pt is still only utilizing palliative care services at this time. FUND CONTROLLER entered room to meet with patient, introduced self and role. Patient endorses he has been told that hospice services are not available until he is actively dying or expected to in 6 months. FUND CONTROLLER provided education of the Hospice benefit and confirmed with patient that [facility] have been in contact with patient. Patient appears to be reluctant to continuing with hospice plans but consents to this FUND CONTROLLER keeping hospice in the loop of pt's presentation to the ED today. Pt also consents to this FUND CONTROLLER to call his POA/Friend, Lisandraradha Lorenz (ph#[phone]) for transport arrangements. FUND CONTROLLER calls POA and discusses discharge plans, she confirms she can transport pt within the hour from [place]. FUND CONTROLLER reviews this with ED provider Dr. Recinos who indicates agreement and understanding; states pt is medically cleared to discharge and will have other pain medication sent to pharmacy. Plan: Pt to discharge home with POA to transport, [facility] to follow up with patient next day. FUND CONTROLLER to send clinicals from this ED Presentation when available to [facility] via fax. NICO Gillette
== END 2025-01-13 16:08 | disposition home or self-care (01) ==
PROVIDERS: Emergency Provider Emergency Medicine; PCP Internal Medicine
DX: C61 Malignant neoplasm of prostate (principal); C79.51 Secondary malignant neoplasm of bone; G89.3 Neoplasm related pain (acute) (chronic); R19.7 Diarrhea, unspecified; I10 Essential (primary) hypertension; Z51.5 Encounter for palliative care; F17.200 Nicotine dependence, unspecified, uncomplicated
CPT/HCPCS: 36415; 80053; 81003; 81015; 83605; 83690; 85025; 93005; 93010; 96361; 96374; 96376; 99284; J1171

== ENCOUNTER → 2025-01-28 11:13 | Outpatient (CLI) | payer MEDICARE, OTHER, SELFPAY ==
[2024-12-28 19:31] VITALS: BMI 20.5
[2025-01-28 12:06] LABS: Add Manual Diff / Slide Review NO; Basophils Absolute Auto 0 /uL (0-100); Basophils Percent Auto 0.9 % (0-2); Eosinophils Absolute Auto 300 /uL (0-450); Eosinophils Percent Auto 10.6 % (2-4); Hematocrit 30.6 % (41-53); Hemoglobin 10.6 g/dL (13.5-17.5); Lymphocytes Absolute Auto 800 /uL (1100-4500); Mean Corpuscular HGB Conc 34.5 % (30-36); Mean Corpuscular Hemoglobin 32.5 PG (26-34); Mean Corpuscular Volume 94.1 fL (80-100); Monocytes Absolute Auto 400 /uL (0-900); Monocytes Percent Auto 14.8 % (3-14); Neutrophils Absolute Auto 1300 /uL (1500-7000); Neutrophils Percent Auto 44.7 % (50-75); Platelet Count 108 X10^3/uL (150-400); Red Blood Cell Count 3.25 X10^6/uL (4.5-5.9); Red Cell Distribution Width 14.1 % (11.6-14.8); White Blood Cell Count 2.9 X10^3/uL (4.5-11.0)
[2025-01-28 12:14] LABS: Hemoglobin A1C% w Est Avg Glu 5.8 % (4.0-6.0)
[2025-01-28 12:24] LABS: Alanine Aminotransferase 93 IU/L (<50); Albumin 3.8 g/dL (3.5-5.0); Albumin Globulin Ratio 1.3 (1.0-2.8); Alkaline Phosphatase 100 U/L (38-126); Aspartate Aminotransferase 108 IU/L (17-59); BUN Creatinine Ratio 21.3 (6-22); Bilirubin Total 0.6 mg/dL (0.2-1.3); Blood Urea Nitrogen 19 mg/dL (9-20); Carbon Dioxide 27 mmol/L (22-32); Chloride 108 mmol/L (98-107); Estimated Glomerular Filt Rate > 60 mL/min (>60); Globulin 2.9 g/dL (1.7-4.1); Glucose 159 mg/dL (70-99); HEMOLYSIS < 15 (0-50); Potassium 4.2 mmol/L (3.4-5.1); Sodium 137 mmol/L (137-145); Total Protein 6.7 g/dL (6.3-8.2)
[2025-01-28 12:57] LABS: TSH w/ Reflex to FT4 3.55 uIU/mL (0.47-4.68)
[2025-01-28 15:32] LABS: Creatinine Urine Random 183.45 mg/dL
[2025-01-28 15:38] LABS: Microalbumin Urine Random 2.7 mg/dL (0-1.6)
== END ==
PROVIDERS: PCP Internal Medicine; Referring Provider Internal Medicine; Visit Provider Internal Medicine
DX: I10 Essential (primary) hypertension (principal); E11.9 Type 2 diabetes mellitus without complications; E78.2 Mixed hyperlipidemia; I48.0 Paroxysmal atrial fibrillation; D64.9 Anemia, unspecified
CPT/HCPCS: 36415; 80053; 82043; 82570; 83036; 84443; 85025

== ENCOUNTER → 2025-02-01 09:40 | Outpatient (CLI) | payer MEDICARE, OTHER, SELFPAY ==
[2024-12-28 19:31] VITALS: BMI 20.5
[2025-02-01 11:01] LABS: BUN Creatinine Ratio 17.9 (6-22); Blood Urea Nitrogen 19 mg/dL (9-20); Calcium 9.5 mg/dL (8.4-10.2); Carbon Dioxide 31 mmol/L (22-32); Chloride 98 mmol/L (98-107); Estimated Glomerular Filt Rate > 60 mL/min (>60); Glucose 258 mg/dL (70-99); HEMOLYSIS < 15 (0-50); Potassium 4.3 mmol/L (3.4-5.1); Sodium 137 mmol/L (137-145)
== END ==
PROVIDERS: PCP Internal Medicine; Referring Provider Internal Medicine; Visit Provider Internal Medicine
DX: I10 Essential (primary) hypertension (principal)
CPT/HCPCS: 36415; 80048

== ENCOUNTER 2025-03-12 21:36 | Emergency (ER) | payer MEDICARE, OTHER, SELFPAY ==
[2025-03-12] VITALS (8 sets, daily range): BP systolic 180–187; BP diastolic 112–116; PULSE 66–74; RESP 14–22; TEMP 36.4; O2SAT 95–99; BMI 20.3
--- NOTE | 2025-03-12 21:28 | EKG_ITS ---
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
[2025-03-12 21:46] LABS: Add Manual Diff / Slide Review NO; Hematocrit 40.3 % (41-53); Hemoglobin 13.9 g/dL (13.5-17.5); Lymphocytes Absolute Auto 900 /uL (1100-4500); Mean Corpuscular HGB Conc 34.5 % (30-36); Mean Corpuscular Hemoglobin 31.4 PG (26-34); Mean Corpuscular Volume 90.8 fL (80-100); Platelet Count 138 X10^3/uL (150-400)
[2025-03-12 21:58] LABS: Alanine Aminotransferase 74 IU/L (<50); Albumin 5.1 g/dL (3.5-5.0); Albumin Globulin Ratio 1.2 (1.0-2.8); Alkaline Phosphatase 112 U/L (38-126); Blood Urea Nitrogen 16 mg/dL (9-20); Calcium 10.0 mg/dL (8.4-10.2); Carbon Dioxide 23 mmol/L (22-32); Chloride 104 mmol/L (98-107); Estimated Glomerular Filt Rate > 60 mL/min (>60); Globulin 4.3 g/dL (1.7-4.1); Glucose 212 mg/dL (70-99); HEMOLYSIS < 15 (0-50); Lipase 34 U/L (23-300); Potassium 3.9 mmol/L (3.4-5.1); Sodium 140 mmol/L (137-145); Total Protein 9.4 g/dL (6.3-8.2)
[2025-03-12 22:01] LABS: Culture Indicated Urine Cult Not Indicated
[2025-03-12] MEDS: ONDANSETRON 4 MG/2 ML INJ IV ×2 (22:08→23:50)
[2025-03-12] MEDS: HYDROMORPHONE 1 MG INJ IV (22:17)
[2025-03-13] VITALS (11 sets, daily range): BP systolic 111–138; BP diastolic 65–86; PULSE 58–78; RESP 13–24; O2SAT 95–100
--- NOTE | 2025-03-13 00:14 | ED.GENADULT ---
HPI - General Adult General Chief complaint: Abdominal Pain Stated complaint: Abdominal pain, Diarrhea Time Seen by Provider: 03/13/25 00:07 Source: patient and EMS Mode of arrival: EMS History of Present Illness HPI narrative: 69-year-old male with metastatic prostate cancer no longer on therapy, 1st diagnosis 3 years ago, recalls XRT and initial Lupron chemotherapy, tried another chemotherapeutic agent that caused GI side effects, discontinued, has been off all therapies for the last 1 year. He has metastases to his left hip. He has chronic left hip pain. Complains of lower abdominal pain and left hip pain since 3 yesterday morning. He had a fall one-week ago, no more recent falls. He takes oral morphine immediate release 4 times daily (doses taken at 0800, 1400, 2000, 0200). Denies fevers or chills. Denies nausea or vomiting. Denies headache sore throat. Denies cough shortness of breath chest pain. Denies painful or frequent urination. No loose stools, no black or red stools, last bowel movement yesterday. Related Data Allergies Allergy/AdvReac Type Severity Reaction Status Date / Time No Known Drug Allergies Allergy Verified 03/12/25 21:42 Exam Narrative Exam Narrative: GENERAL: Well-developed patient, in mild distress. HEAD: Atraumatic. Normocephalic. EYES: Pupils equal round and reactive. Extraocular motions intact. No scleral icterus. No injection or drainage. ENT: Nose without bleeding, purulent drainage. Throat without erythema, tonsillar hypertrophy or exudate. Airway patent. NECK: Trachea midline. Non tender CARDIOVASCULAR: Regular rate and rhythm without murmurs, gallops, or rubs. RESPIRATORY: Clear to auscultation. Breath sounds equal bilaterally. No wheezes, rales, or rhonchi. GASTROINTESTINAL: Abdomen soft, non-tender, nondistended. EXTREMITIES: No edema or joint tenderness. BACK: Nontender without deformity or crepitance. No flank tenderness. NEURO: AOx3. Motor functions grossly nonfocal. SKIN: No rash or erythema of visible areas Initial Vital Signs Initial Vital Signs: Vital Signs Temperature 97.6 F 03/12/25 21:20 Pulse Rate 71 03/12/25 21:20 Respiratory Rate 19 03/12/25 21:20 Blood Pressure 187/116 H 03/12/25 21:20 Pulse Oximetry 98 03/12/25 21:20 Oxygen Delivery Method Room Air 03/12/25 21:20 Course Orders Ordered: ED Orders 03/12/25 21:28 EKG-12 Lead Stat 03/12/25 21:30 Complete Blood Count AUTO DIFF Stat Comprehensive Metabolic Panel Stat Lipase Stat 03/12/25 21:32 Urine Microscopic Stat 03/13/25 00:43 CT abdomen pelvis w con Stat Discontinued Medications Hydromorphone HCl (Hydromorphone 1 Mg Inj) 1 mg IV NOW ONE Stop: 03/12/25 22:09 Last Admin: 03/12/25 22:17 Dose: 1 mg Documented By: JULIEN Hydromorphone HCl (Hydromorphone Hcl 0.5 Mg/0.5 Ml Syringe) 0.5 mg IV NOW ONE Stop: 03/12/25 23:29 Last Admin: 03/12/25 23:36 Dose: 0.5 mg Documented By: JULIEN Hydromorphone HCl (Hydromorphone Hcl 0.5 Mg/0.5 Ml Syringe) 0.5 mg IV NOW ONE Stop: 03/13/25 00:24 Last Admin: 03/13/25 00:38 Dose: 0.5 mg Documented By: JULIEN Sodium Chloride (Normal Saline 0.9%) 1,000 mls @ 500 mls/hr IV BOLUS ONE Stop: 03/13/25 02:43 Last Infusion: 03/13/25 02:25 Dose: Infused Documented By: Admin: 03/13/25 01:12 Dose: 500 mls/hr Documented By: JULIEN Metoclopramide HCl (Metoclopramide 10 Mg/2 Ml Inj) 10 mg IV NOW ONE Stop: 03/13/25 03:46 Last Admin: 03/13/25 03:48 Dose: 10 mg Documented By: JULIEN Morphine Sulfate (Morphine 10 Mg/0.5 Ml Oral Syringe) 10 mg PO NOW ONE Stop: 03/13/25 03:24 Last Admin: 03/13/25 03:37 Dose: 10 mg Documented By: JULIEN Ondansetron HCl (Ondansetron 4 Mg/2 Ml Inj) 4 mg IV NOW PRN PRN Reason: Nausea And Vomiting Last Admin: 03/12/25 22:08 Dose: 4 mg Documented By: JULIEN Ondansetron HCl (Ondansetron 4 Mg Odt) 4 mg PO NOW PRN PRN Reason: Nausea And Vomiting Ondansetron HCl (Ondansetron 4 Mg/2 Ml Inj) 4 mg IV NOW ONE Stop: 03/12/25 23:41 Last Admin: 03/12/25 23:50 Dose: 4 mg Documented By: JULIEN Vital Signs Vital signs: Vital Signs - 8 hr 03/12/25 22:00 03/12/25 22:11 03/12/25 22:11 Pulse Rate 74 74 Respiratory Rate Blood Pressure 180/112 H Pulse Oximetry 99 98 Oxygen Delivery Method 03/12/25 22:30 03/12/25 23:00 03/12/25 23:30 Pulse Rate 66 67 69 Respiratory Rate 22 14 Blood Pressure Pulse Oximetry 95 97 98 Oxygen Delivery Method 03/13/25 00:00 03/13/25 00:30 03/13/25 00:42 Pulse Rate 69 74 Respiratory Rate 20 16 Blood Pressure 122/86 Pulse Oximetry 95 96 Oxygen Delivery Method 03/13/25 00:42 03/13/25 01:07 03/13/25 01:09 Pulse Rate 74 61 Respiratory Rate 14 13 Blood Pressure 122/72 Pulse Oximetry 97 99 Oxygen Delivery Method 03/13/25 01:09 03/13/25 01:30 03/13/25 01:30 Pulse Rate 65 58 L Respiratory Rate 13 15 Blood Pressure 129/65 Pulse Oximetry 100 100 Oxygen Delivery Method 03/13/25 02:00 03/13/25 02:00 03/13/25 02:30 Pulse Rate 62 Respiratory Rate Blood Pressure 119/68 111/65 Pulse Oximetry 97 Oxygen Delivery Method 03/13/25 02:30 03/13/25 03:00 03/13/25 03:01 Pulse Rate 60 61 61 Respiratory Rate 24 Blood Pressure Pulse Oximetry 95 97 97 Oxygen Delivery Method 03/13/25 03:01 03/13/25 04:40 Pulse Rate 78 Respiratory Rate 16 Blood Pressure 133/76 138/79 Pulse Oximetry 97 Oxygen Delivery Method Room Air Medical Decision Making Lab Data Lab results reviewed: Yes I reviewed the patient's lab results. Lab results narrative: White blood cell count 6100, hemoglobin 13.9, platelets adequate. Glucose 212. Normal renal function. Normal electrolytes and serum CO2. Total bilirubin 1.4 mild elevation, mild transaminitis, alkaline phosphatase 112. Lipase normal. Urine dip negative. 03/12/25 21:30 07/01/25 21:30 Labs: Lab Results 03/12/25 03/12/25 Range/Units 21:30 21:32 WBC 6.1 (4.5-11.0) X10^3/uL RBC 4.44 L (4.5-5.9) X10^6/uL Hgb 13.9 (13.5-17.5) g/dL Hct 40.3 L (41-53) % MCV 90.8 (80-100) fL MCH 31.4 (26-34) PG MCHC 34.5 (30-36) % RDW 12.9 (11.6-14.8) % Plt Count 138 L (150-400) X10^3/uL Neut % (Auto) 78.3 H (50-75) % Lymph % (Auto) 14.0 L (25-40) % [place] % (Auto) 7.5 (3-14) % Eos % (Auto) 0.0 L (2-4) % Baso % (Auto) 0.2 (0-2) % Neut # (Auto) 4800 (7605-1427) /uL Lymph # (Auto) 900 L (0292-6951) /uL [place] # (Auto) 500 (0-900) /uL Eos # (Auto) 0 (0-450) /uL Baso # (Auto) 0 (0-100) /uL Sodium 140 (137-145) mmol/L Potassium 3.9 (3.4-5.1) mmol/L Chloride 104 (98-107) mmol/L Carbon Dioxide 23 (22-32) mmol/L BUN 16 (9-20) mg/dL Creatinine 1.17 (0.66-1.25) mg/dL Estimated GFR > 60 (>60) mL/min BUN/Creatinine Ratio 13.7 (6-22) Glucose 212 H (70-99) mg/dL Calcium 10.0 (8.4-10.2) mg/dL Total Bilirubin 1.4 H (0.2-1.3) mg/dL AST 78 H (17-59) IU/L ALT 74 H (<50) IU/L Alkaline Phosphatase 112 (38-126) U/L Total Protein 9.4 H (6.3-8.2) g/dL Albumin 5.1 H (3.5-5.0) g/dL Globulin 4.3 H (1.7-4.1) g/dL Albumin/Globulin Ratio 1.2 (1.0-2.8) Lipase 34 (23-300) U/L Urine RBC 0-1/hpf (0-5/HPF) Urine WBC 0-1/hpf (0-5/HPF) Ur Squamous Epith Cells 0-1 /hpf (0-5/HPF) Urine Bacteria Occasional (0-1) (None) Ur Culture Indicated? Cult not indicated Vol Urine Centrifuged 10ml (spun) Urine Dip Bedside Urine Glucose 250 mg/dl Bedside Urine Bilirubin - Negative Bedside Urine Ketone - Negative Urine Specific [place] 1.015 Bedside Urine Occult Blood + Bedside Urine pH 6.0 Bedside Urine Protein + 30 Bedside Urine Urobilinogen - Negative Bedside Urine Nitrite - Negative Bedside Urine Leukocytes - Negative Esterase Point of care testing: Urine Dip Bedside Urine Glucose 250 mg/dl Bedside Urine Bilirubin - Negative Bedside Urine Ketone - Negative Urine Specific [place] 1.015 Bedside Urine Occult Blood + Bedside Urine pH 6.0 Bedside Urine Protein + 30 Bedside Urine Urobilinogen - Negative Bedside Urine Nitrite - Negative Bedside Urine Leukocytes - Negative Esterase Imaging Data CT scan - abdomen/pelvis: Radiologist's Impression: [address] [address] [address] Scan Report Signed Patient: Brennan Marmolejo MR#: [id number] : 1955 Acct:[id number] Age/Sex: 69 / M Date of Service: 03/13/25 Loc: ED Accession Number: [id number] Procedure: CT abdomen pelvis w con Ordering Provider: Wilberto Beckett MD PROCEDURE: CT ABDOMEN PELVIS W CON INDICATIONS: lower abd + L hip pain, hx protstate CA/mets TECHNIQUE: After the administration of intravenous contrast, axial sections acquired from the lung bases to the pubic symphysis. Coronal and sagittal reformats were performed. For radiation dose reduction, the following was used: automated exposure control, adjustment of mA and/or kV according to patient size. COMPARISON: [facility], CT, CT ABDOMEN PELVIS W CON, 12/16/2024, 11:38. FINDINGS: Image quality: Diagnostic. Lower Chest: No significant findings. ABDOMEN: Liver: Cirrhosis. Redemonstration of coarse calcifications at the hepatic dome.. Gallbladder: No radiopaque gallstones or wall thickening. Biliary ducts: No biliary dilation. Pancreas: No ductal dilation. Spleen: Size is within normal limits. Adrenal Glands: No adrenal nodules. Kidneys and Ureters: No hydronephrosis. No solid mass. No complex renal cystic lesion which requires follow up. Stomach and Bowel: Normal colonic caliber, without significant wall thickening. Right diverticulosis without acute inflammation. Peritoneum: No abnormal intraperitoneal fluid. No free air. Ventral Wall: No significant ventral hernia. Abdominal Nodes: No retroperitoneal or mesenteric adenopathy by size criteria. Vessels: Aorta and inferior vena cava are normal in size. 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 PELVIS: Pelvic Organs: Prostate fiducial markers. Bladder: No bladder wall thickening, accounting for underdistention. Pelvic Nodes: No enlarged lymph nodes. Miscellaneous: No inguinal hernias are seen. Bones: Stable osseous metastasis including sclerotic lesion in the right sacral ala. Stable sclerotic lesion in L2 vertebral body. No pathological fracture. IMPRESSION: Cirrhosis. No ascites. Colonic diverticulosis without CT evidence of acute diverticulitis. Additional findings as above Approved by: Kimberly Parada M.D.,Ph.D. on 03/13/2025 at 2:11 ECG Data Attestation: I personally reviewed and interpreted this ECG as follows: Interpretation: 2152, normal sinus rhythm, no obvious ST segment elevation or depression changes. MD 154, QRS 80, QTC 488. [facility] Narrative Medical decision making narrative: 69-year-old male with history of metastatic prostate cancer no longer on therapy for the last 1 year, has lower abdominal pain and left hip pain, did have a fall one-week ago, none more recent. Afebrile, sirs screen negative. No tenderness anterior abdominal exam or CVA region. Labs pending. Consider CT imaging. Lab data: White blood cell count 6100, hemoglobin 13.9, platelets adequate. Glucose 212. Normal renal function. Normal electrolytes and serum CO2. Total bilirubin 1.4 mild elevation, mild transaminitis, alkaline phosphatase 112. Lipase normal. Urine dip negative. CT abdomen and pelvis. IMPRESSION: Cirrhosis. No ascites. Colonic diverticulosis without CT evidence of acute diverticulitis. See radiology report. Patient felt improved after multiple doses IV Dilaudid. Given his door closer morphine 15 mg oral dose as well. Follow up with PCP and Urology as advised. Discharged home with family. Return precautions discussed. Discharge Plan Departure Patient Disposition: Home Clinical Impression: Abdominal pain, History of prostate cancer Activity Restrictions/Additional Instructions: Lower abdominal discomfort and left hip pain, ground level fall last week, no more recent trauma. No spinal tenderness midline or paraspinal. CT abdomen and pelvis showed no acute changes. Continue taking your morphine regular scheduled doses by mouth. Recheck with your regular doctor later this week. Return to this/nearest emergency department for any change worsening symptoms or any concerns prior. Stand Alone Forms: Patient Portal/API
--- NOTE | 2025-03-13 00:43 | DI.CT.S_ITS ---
PROCEDURE: CT ABDOMEN PELVIS W CON INDICATIONS: lower abd + L hip pain, hx protstate CA/mets TECHNIQUE: After the administration of intravenous contrast, axial sections acquired from the lung bases to the pubic symphysis. Coronal and sagittal reformats were performed. For radiation dose reduction, the following was used: automated exposure control, adjustment of mA and/or kV according to patient size. COMPARISON: [facility], CT, CT ABDOMEN PELVIS W CON, 12/16/2024, 11:38. FINDINGS: Image quality: Diagnostic. Lower Chest: No significant findings. ABDOMEN: Liver: Cirrhosis. Redemonstration of coarse calcifications at the hepatic dome.. Gallbladder: No radiopaque gallstones or wall thickening. Biliary ducts: No biliary dilation. Pancreas: No ductal dilation. Spleen: Size is within normal limits. Adrenal Glands: No adrenal nodules. Kidneys and Ureters: No hydronephrosis. No solid mass. No complex renal cystic lesion which requires follow up. Stomach and Bowel: Normal colonic caliber, without significant wall thickening. Right diverticulosis without acute inflammation. Peritoneum: No abnormal intraperitoneal fluid. No free air. Ventral Wall: No significant ventral hernia. Abdominal Nodes: No retroperitoneal or mesenteric adenopathy by size criteria. Vessels: Aorta and inferior vena cava are normal in size. 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 PELVIS: Pelvic Organs: Prostate fiducial markers. Bladder: No bladder wall thickening, accounting for underdistention. Pelvic Nodes: No enlarged lymph nodes. Miscellaneous: No inguinal hernias are seen. Bones: Stable osseous metastasis including sclerotic lesion in the right sacral ala. Stable sclerotic lesion in L2 vertebral body. No pathological fracture. IMPRESSION: Cirrhosis. No ascites. Colonic diverticulosis without CT evidence of acute diverticulitis. Additional findings as above Approved by: Kimberly Parada M.D.,Ph.D. on 03/13/2025 at 2:11
[2025-03-13] MEDS: SODIUM CHLORIDE 0.9% 1,000 ML 500 ML IV (01:12)
[2025-03-13] MEDS: MORPHINE 10 MG/0.5 ML ORAL SYRINGE PO (03:37)
[2025-03-13] MEDS: METOCLOPRAMIDE 10 MG/2 ML INJ IV (03:48)
== END 2025-03-13 04:41 | disposition home or self-care (01) ==
PROVIDERS: Emergency Provider Emergency Medicine
DX: R10.30 Lower abdominal pain, unspecified (principal); M25.552 Pain in left hip; C61 Malignant neoplasm of prostate; C79.51 Secondary malignant neoplasm of bone
CPT/HCPCS: 36415; 74177; 80053; 81003; 81015; 83690; 85025; 93005; 93010; 96361; 96374; 96375; 96376; 99284; J1171; J2405; J2765; Q9967

== ENCOUNTER 2025-03-14 09:13 | Emergency (ER) | payer MEDICARE, OTHER, SELFPAY ==
[2024-12-28 19:31] VITALS: BMI 20.5
[2025-03-14] VITALS (13 sets, daily range): BP systolic 90–185; BP diastolic 61–114; PULSE 55–115; RESP 9–16; TEMP 36.8; O2SAT 97–99; BMI 20.3
--- NOTE | 2025-03-14 09:37 | EKG_ITS ---
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
--- NOTE | 2025-03-14 09:37 | DI.RAD.S_ITS ---
PROCEDURE: XR CHEST 1V INDICATIONS: Chest Pain TECHNIQUE: One view of the chest was acquired. COMPARISON: [facility], CR, XR CHEST 1V, 12/16/2024, 11:25. FINDINGS: Surgical changes and devices: None. Lungs and pleura: Lungs are clear. No pleural effusions or pneumothorax. Mediastinum: Mediastinal contours appear normal. Heart size is normal. Bones and chest wall: No suspicious bony lesions. Overlying soft tissues appear unremarkable. IMPRESSION: No acute pulmonary process. Dictated by: Chichi Collado M.D. on 03/14/2025 at 10:32 Approved by: Chichi Collado M.D. on 03/14/2025 at 10:32
[2025-03-14 09:58] LABS: Add Manual Diff / Slide Review NO; Hematocrit 43.5 % (41-53); Hemoglobin 15.3 g/dL (13.5-17.5); Lymphocytes Absolute Auto 1900 /uL (1100-4500); Mean Corpuscular HGB Conc 35.2 % (30-36); Mean Corpuscular Hemoglobin 31.7 PG (26-34); Mean Corpuscular Volume 90.0 fL (80-100); Platelet Count 172 X10^3/uL (150-400)
[2025-03-14 10:05] LABS: INR 1.4 (0.9-1.3); Prothrombin Time 16.0 SECONDS (9.4-12.5)
[2025-03-14 10:07] LABS: PTT Partial Thromboplastin Tim 27 SECONDS (25.1-36.5)
[2025-03-14 10:08] LABS: Alanine Aminotransferase 56 IU/L (<50); Albumin 5.1 g/dL (3.5-5.0); Albumin Globulin Ratio 1.1 (1.0-2.8); Blood Urea Nitrogen 25 mg/dL (9-20); Calcium 9.8 mg/dL (8.4-10.2); Carbon Dioxide 25 mmol/L (22-32); Chloride 97 mmol/L (98-107); Creatine Kinase 77 U/L (55-170); Estimated Glomerular Filt Rate > 60 mL/min (>60); Globulin 4.5 g/dL (1.7-4.1); Glucose 245 mg/dL (70-99); Lipase 50 U/L (23-300); Sodium 135 mmol/L (137-145); Total Protein 9.6 g/dL (6.3-8.2)
[2025-03-14 10:21] LABS: NT-proBNP (BNP-Adult 18+) 19300 pg/mL (<125); Troponin I 0.079 ng/mL (0.01-0.034)
[2025-03-14 10:22] LABS: HEMOLYSIS 79 (0-50); Potassium 4.0 mmol/L (3.4-5.1)
[2025-03-14 10:23] LABS: Alkaline Phosphatase 121 U/L (38-126); Magnesium 1.5 mg/dL (1.6-2.3)
--- NOTE | 2025-03-14 10:40 | ED.GENADULT ---
HPI - General Adult General Chief complaint: Hypertension Stated complaint: Blood pressure out of control, back pain Time Seen by Provider: 03/14/25 10:23 Source: patient Mode of arrival: Wheelchair History of Present Illness HPI narrative: Patient here for hypertension. No chest pain no headache. No shortness of breath. Patient has history of metastatic prostate cancer. Has chronic back pain which is not new. No fall or injury. Patient has history of paroxysmal atrial fibrillation on Eliquis. Patient does have a POLST form that says DNR DNI with selective treatments however patient and now state they would like to advance to comfort measures only. However he does not meet criteria for hospice they state. Patient is on home morphine for his pain and has not been effective. Patient has taken all of his blood pressure medications. Patient was sent here by primary care for pain control and blood pressure re-evaluation. Related Data Home Medications ?Medication ?Instructions ?Recorded ?Confirmed apixaban 2.5 mg tablet (Eliquis) 2.5 mg PO BID 03/29/24 03/14/25 nitroglycerin 0.4 mg sublingual 0.4 mg sublingual Q5-15M PRN Chest 03/29/24 03/14/25 tablet Pain ondansetron HCl 4 mg tablet 4 mg PO Q8H PRN Nausea And Vomiting 03/29/24 03/14/25 sennosides 8.6 mg tablet (senna) 8.6 mg PO DAILY constipation 03/29/24 03/14/25 lisinopril 10 mg tablet 10 mg PO DAILY 08/19/24 03/14/25 atorvastatin 80 mg tablet 80 mg PO ONCE PM 12/28/24 03/14/25 isosorbide mononitrate 30 mg 30 mg PO QAM 12/28/24 03/14/25 tablet,extended release 24 hr methocarbamol 500 mg tablet 500 mg PO 3XD 12/28/24 03/14/25 metoprolol succinate 100 mg 100 mg PO BID 12/28/24 03/14/25 tablet,extended release 24 hr tamsulosin 0.4 mg capsule 0.4 mg PO DAILY 12/28/24 03/14/25 Previous Rx's ?Medication ?Instructions ?Recorded promethazine 25 mg rectal 25 mg RI Q4-6H PRN nausea and 11/18/20 suppository vomiting #12 ea morphine 10 mg/5 mL oral solution 10 mg (5 mL) PO Q6H PRN pain #100 08/07/24 mL scopolamine base 1 mg over 3 days 1 patch topical Q72H #10 ea 12/31/24 transdermal patch (Transderm-Scop) duloxetine 20 mg capsule,delayed 40 mg (2 x 20 mg) PO DAILY #180 02/01/25 release caps furosemide 20 mg tablet 20 mg PO DAILY #90 tabs 02/01/25 pantoprazole 40 mg tablet,delayed 40 mg PO BID #90 tabs 02/25/25 release morphine 15 mg immediate release 7.5 - 15 mg (0.5 - 1 x 15 mg) PO 03/12/25 tablet Q3H PRN chest pain/bone pain #30 tabs hydromorphone 4 mg tablet 4 mg PO Q4-6H PRN pain #20 tabs 03/14/25 hydromorphone 4 mg tablet 4 mg PO Q4-6H PRN pain #30 tabs 03/15/25 (Dilaudid) Allergies Allergy/AdvReac Type Severity Reaction Status Date / Time No Known Drug Allergies Allergy Verified 03/14/25 09:02 Review of Systems Review of Systems Narrative: GENERAL: Negative chills, fatigue, malaise, fever, sweats. HEENT: Negative sinus pain, ear pain, sore throat RESPIRATORY: Negative dyspnea, cough CARDIOVASCULAR: Negative chest pain, palpitations GASTROINTESTINAL: Negative vomiting, nausea, abdominal pain : Negative dysuria, frequency, hematuria MUSCULOSKELETAL: Positive back/muscle or bony pain SKIN: Negative rash, skin lesions NEUROLOGIC: Negative weakness, numbness ROS Unobtainable: All systems reviewed & are unremarkable except as noted in HPI and below Patient History Medical History Malignant neoplasm of prostate metastatic to bone Acute upper gastrointestinal bleeding Hypertensive urgency Colitis Hematuria Uncomplicated opioid dependence Generalized anxiety disorder Cannabis abuse Prostate cancer (~05/2019) Paroxysmal A-fib Transaminitis Kidney stones Diverticulosis of large intestine (03/31/12) Chronic hepatitis Coronary artery disease involving [place] coronary artery of [place] heart without angina pectoris (~2006) Essential hypertension Mixed hyperlipidemia Surgical History H/O heart artery stent (~2006) Hx of inguinal hernia surgery (~03/07/14) Hx of inguinal hernia surgery (~09/20/08) Status post laminectomy History of angioplasty (~12/2006) Social History marital status: unmarried,single number of children: 3 household members: caregiver lives independently: Yes caregiver/support person: No housing: house pets and animals: No education level: high school occupational status: other 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 EYES: Pupils equal round ENT: Mucous membranes moist. NECK: Trachea midline. CARDIOVASCULAR: Regular rate and rhythm RESPIRATORY: Clear to auscultation. Breath sounds equal bilaterally. No wheezes, rales, or rhonchi. GASTROINTESTINAL: Abdomen soft, non-tender EXTREMITIES: No gross deformities. BACK: No midline tenderness or step-off of the cervical thoracic or lumbar spine NEURO: AOx4. Clear speech SKIN: Warm and dry PSYCH: Not anxious, is cooperative Initial Vital Signs Initial Vital Signs: Vital Signs Temperature 98.2 F 03/14/25 09:27 Pulse Rate 55 L 03/14/25 09:27 Respiratory Rate 16 03/14/25 09:27 Blood Pressure 185/114 H 03/14/25 09:27 Pulse Oximetry 99 03/14/25 09:27 Oxygen Delivery Method Room Air 03/14/25 09:27 Course Orders Ordered: Discontinued Medications Aspirin (Aspirin 81 Mg Chew Tab) 324 mg PO NOW ONE Stop: 03/14/25 09:37 Last Admin: 03/14/25 11:43 Dose: Not Given Documented By: MEGGAN Hydromorphone HCl (Hydromorphone 1 Mg Inj) 1 mg IV Q3HR PRN PRN Reason: Pain, Moderate (4-6) Last Admin: 03/14/25 15:40 Dose: 1 mg Documented By: Admin: 03/14/25 13:28 Dose: 1 mg Documented By: Admin: 03/14/25 11:37 Dose: 1 mg Documented By: MEGGAN Vital Signs Vital signs: Vital Signs - 8 hr 03/14/25 09:27 03/14/25 11:36 03/14/25 12:00 Temperature 98.2 F Pulse Rate 55 L 114 H 115 H Respiratory Rate 16 9 L 9 L Blood Pressure 185/114 H Pulse Oximetry 99 97 98 Oxygen Delivery Method Room Air Room Air 03/14/25 12:00 03/14/25 12:30 03/14/25 12:30 Temperature Pulse Rate 105 H Respiratory Rate 12 Blood Pressure 162/112 H 133/85 Pulse Oximetry 98 Oxygen Delivery Method 03/14/25 13:00 03/14/25 13:00 03/14/25 13:30 Temperature Pulse Rate 84 102 H Respiratory Rate 9 L 14 Blood Pressure 126/91 H Pulse Oximetry 97 97 Oxygen Delivery Method 03/14/25 13:30 03/14/25 14:00 03/14/25 14:00 Temperature Pulse Rate 100 H Respiratory Rate 10 L Blood Pressure 106/77 113/79 Pulse Oximetry 97 Oxygen Delivery Method Medical Decision Making Lab Data 03/14/25 09:45 03/14/25 09:45 Labs: Lab Results 03/14/25 Range/Units 09:45 WBC 11.1 H (4.5-11.0) X10^3/uL RBC 4.83 (4.5-5.9) X10^6/uL Hgb 15.3 (13.5-17.5) g/dL Hct 43.5 (41-53) % MCV 90.0 (80-100) fL MCH 31.7 (26-34) PG MCHC 35.2 (30-36) % RDW 13.0 (11.6-14.8) % Plt Count 172 (150-400) X10^3/uL Neut % (Auto) 69.0 (50-75) % Lymph % (Auto) 17.6 L (25-40) % [place] % (Auto) 13.0 (3-14) % Eos % (Auto) 0.0 L (2-4) % Baso % (Auto) 0.4 (0-2) % Neut # (Auto) 7700 H (5076-0272) /uL Lymph # (Auto) 1900 (9427-6493) /uL [place] # (Auto) 1400 H (0-900) /uL Eos # (Auto) 0 (0-450) /uL Baso # (Auto) 0 (0-100) /uL PT 16.0 H (9.4-12.5) SECONDS INR 1.4 H (0.9-1.3) APTT 27 (25.1-36.5) SECONDS Sodium 135 L (137-145) mmol/L Potassium 4.0 (3.4-5.1) mmol/L Chloride 97 L (98-107) mmol/L Carbon Dioxide 25 (22-32) mmol/L BUN 25 H (9-20) mg/dL Creatinine 1.16 (0.66-1.25) mg/dL Estimated GFR > 60 (>60) mL/min BUN/Creatinine Ratio 21.6 (6-22) Glucose 245 H (70-99) mg/dL Calcium 9.8 (8.4-10.2) mg/dL Magnesium 1.5 L (1.6-2.3) mg/dL Total Bilirubin 1.8 H (0.2-1.3) mg/dL AST 62 H (17-59) IU/L ALT 56 H (<50) IU/L Alkaline Phosphatase 121 (38-126) U/L Total Creatine Kinase 77 (55-170) U/L Troponin I 0.079 H (0.01-0.034) ng/mL NT-Pro-B Natriuret Pep 29183 H (<125) pg/mL Total Protein 9.6 H (6.3-8.2) g/dL Albumin 5.1 H (3.5-5.0) g/dL Globulin 4.5 H (1.7-4.1) g/dL Albumin/Globulin Ratio 1.1 (1.0-2.8) Lipase 50 (23-300) U/L Imaging Data Chest x-ray: Radiologist's Impression: [address] [address] XRay Report Signed Patient: Jaleel BryanBrennan Mitesh MR#: [id number] : 1955 Acct:[id number] Age/Sex: 69 / M Date of Service: 03/14/25 Loc: ED Accession Number: [id number] Procedure: XR chest 1V Ordering Provider: Florencio Jenkins MD PROCEDURE: XR CHEST 1V INDICATIONS: Chest Pain TECHNIQUE: One view of the chest was acquired. COMPARISON: [facility], , XR CHEST 1V, 12/16/2024, 11:25. FINDINGS: Surgical changes and devices: None. Lungs and pleura: Lungs are clear. No pleural effusions or pneumothorax. Mediastinum: Mediastinal contours appear normal. Heart size is normal. Bones and chest wall: No suspicious bony lesions. Overlying soft tissues appear unremarkable. IMPRESSION: No acute pulmonary process. Dictated by: Chichi Collado M.D. on 03/14/2025 at 10:32 Approved by: Chichi Collado M.D. on 03/14/2025 at 10:32 [facility] Narrative Medical decision making narrative: Patient here for hypertension. No chest pain no headache. No shortness of breath. Patient has history of metastatic prostate cancer. Has chronic back pain which is not new. No fall or injury. Patient has history of paroxysmal atrial fibrillation on Eliquis. Patient does have a POLST form that says DNR DNI with selective treatments however patient and now state they would like to advance to comfort measures only. However he does not meet criteria for hospice they state. Patient is on home morphine for his pain and has not been effective. Patient has taken all of his blood pressure medications. Patient was sent here by primary care for pain control and blood pressure re-evaluation. After history and exam, EKG CBC CMP troponin chest x-ray, Dilrgid, MDM Medical records reviewed: No recent visit for this complaint Differential considered: Includes but not limited to acute on chronic pain hypertensive emergency hypertensive urgency Lab Test results independently reviewed as above. Pertinent findings: WBC 11.1 hemoglobin 15.3 INR 1.4 sodium 135 potassium 4.0 GFR greater than 60 glucose 245 AST 62 ALT 56 troponin 0.079 BNP 66646 Independently reviewed EKG sinus rhythm rate [address] elevation or depression Imaging studies independently reviewed: Chest x-ray no acute finding Consultations: 10:[address] Vasques, primary care. No admission at this time. No blood pressure medication at this time. Recommends giving patient Dilaudid and pain control in his blood pressure will go down. This is happened before. No admission indicated. Once pain is controlled his blood pressure will go down. Patient can be discharged home. No repeat troponin, this is likely cardiac demand. No chest complaints. In addition, patient does not want any intervention for cardiac workup Re-evaluations: 10:50 a.m.. Spoke with patient and . I spoke with his primary care Dr. Vasques and plans for pain control and reassess. They do not want to advance any further for cardiac workup. 3:35 p.m.. Patient is feeling much better with pain control. Blood pressure has improved. and patient state they can not get his morphine due to stock issues. There is none available at this time. They did inquire about Dilaudid in pill form and I will provide this for them. Discussion: Appropriate for discharge home. Exam is reassuring. I did review with primary care for treatment plan and it does follow up pattern of pain control will decrease his blood pressure. This is not uncommon. Return precautions reviewed. They desire discharge home. Diagnosis: Acute on chronic pain due to neoplasm Discharge Plan Departure Patient Disposition: Home Clinical Impression: Elevated troponin Chronic pain Qualifiers: Chronic pain type: due to neoplasm Qualified Code(s): G89.3 - Neoplasm related pain (acute) (chronic) Instructions: DI for Chronic Pain -- Adult Activity Restrictions/Additional Instructions: I am glad you are doing better. Please see family doctor next week for re-evaluation. Prescription for Dilaudid/hydromorphone pain medication has been provided for you until you get your refill for morphine. Return if worse if any questions or concerns. Prescriptions: New hydromorphone 4 mg tablet 4 mg PO Q4-6H PRN (Reason: pain) Qty: 20 0RF No Action morphine 10 mg/5 mL solution 10 mg PO Q6H PRN (Reason: pain) Qty: 100 0RF pantoprazole 40 mg tablet,delayed release (DR/EC) 40 mg PO BID Qty: 90 0RF morphine 15 mg tablet 7.5 - 15 mg PO Q3H MDD 90mg PRN (Reason: chest pain/bone pain) Qty: 30 0RF Eliquis 2.5 mg tablet 2.5 mg PO BID sennosides [senna] 8.6 mg tablet 8.6 mg PO DAILY nitroglycerin 0.4 mg tablet, sublingual 0.4 mg sublingual Q5-15M PRN (Reason: Chest Pain) ondansetron HCl 4 mg tablet 4 mg PO Q8H PRN (Reason: Nausea And Vomiting) furosemide 20 mg tablet 20 mg PO DAILY Qty: 90 3RF duloxetine 20 mg capsule,delayed release(DR/EC) 40 mg PO DAILY Qty: 180 3RF lisinopril 10 mg tablet 10 mg PO DAILY metoprolol succinate 100 mg tablet extended release 24 hr 100 mg PO BID methocarbamol 500 mg tablet 500 mg PO 3XD atorvastatin 80 mg tablet 80 mg PO ONCE PM isosorbide mononitrate 30 mg tablet extended release 24 hr 30 mg PO QAM tamsulosin 0.4 mg capsule 0.4 mg PO DAILY scopolamine base [Transderm-Scop] 1 mg over 3 days Patch 3 Day 1 patch topical Q72H Qty: 10 0RF hydromorphone [Dilaudid] 4 mg tablet 4 mg PO Q4-6H PRN (Reason: pain) Qty: 30 0RF promethazine 25 mg suppository 25 mg RI Q4-6H PRN (Reason: nausea and vomiting) Qty: 12 0RF Referrals: Khang Vasques MD [Primary Care Provider, Internal Medicine] Stand Alone Forms: Patient Portal/API
[2025-03-14] MEDS: HYDROMORPHONE 1 MG INJ IV ×3 (11:37→15:40)
--- NOTE | 2025-03-14 13:29 | PC.NURSE ---
Patient is endorsing 7/10 pain in their right lower back, Dr Alice cabral's giving dose of dilaudid early see MAR
== END 2025-03-14 16:25 | disposition home or self-care (01) ==
PROVIDERS: Emergency Provider Emergency Medicine; PCP Internal Medicine
DX: G89.3 Neoplasm related pain (acute) (chronic) (principal); R79.89 Other specified abnormal findings of blood chemistry; Z79.01 Long term (current) use of anticoagulants; I10 Essential (primary) hypertension
CPT/HCPCS: 36415; 71045; 80053; 82550; 83690; 83735; 83880; 84484; 85025; 85610; 85730; 93005; 93010; 96374; 96376; 99284; J1171

== ENCOUNTER 2025-03-15 00:40 | Emergency (ER) | payer MEDICARE, OTHER, SELFPAY ==
[2024-12-28 19:31] VITALS: BMI 20.5
[2025-03-15] VITALS (16 sets, daily range): BP systolic 98–204; BP diastolic 63–126; PULSE 57–92; RESP 9–27; TEMP 35.5; O2SAT 93–99
--- NOTE | 2025-03-15 01:41 | EKG_ITS ---
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
--- NOTE | 2025-03-15 01:41 | DI.RAD.S_ITS ---
PROCEDURE: XR CHEST 1V INDICATIONS: chest pain, hypertension unresolved TECHNIQUE: One view of the chest was acquired. COMPARISON: [facility], CR, XR CHEST 1V, 03/14/2025, 9:38. FINDINGS: Surgical changes and devices: None. Lungs and pleura: Lungs are clear. No pleural effusions or pneumothorax. Mediastinum: Mediastinal contours appear normal. Heart size is normal. Bones and chest wall: No suspicious bony lesions. Overlying soft tissues appear unremarkable. IMPRESSION: No acute cardiopulmonary abnormality is seen. Approved by: Kimberly Parada M.D.,Ph.D. on 03/15/2025 at 2:50
--- NOTE | 2025-03-15 01:42 | ED.GENADULT ---
HPI - General Adult General Chief complaint: Hypertension Stated complaint: HTN/CP Time Seen by Provider: 03/15/25 01:11 Source: patient Mode of arrival: EMS History of Present Illness HPI narrative: 69-year-old male with history of metastatic prostate cancer, recurring visits for pain control. Ran out of his usual oral morphine analgesic regimen, apparently out of stock. Seen here yesterday for back pain and chest pain ongoing, felt to be due to his cancer pain, did not want to pursue further chest pain workup, felt not to be a candidate for hospice services at this time, given discharge prescription for oral Dilaudid 4 mg to take by mouth every 4-6 hours, that does not seem to be handling his pain. However on review it seems that he filled the Dilaudid medication, then took a single dose later in the day after discharged, not taking on any kind of regular schedule. The pain recurred and now does not seem to be controlled by the oral Dilaudid. He has back pain, also left upper abdominal pain, says that this is feels like his usual/recent cancer related pain. DNR/DNI POLST noted from previous visit, previously allowing selective treatments, progress notes from yesterday's visit here indicate they are now interested in comfort measures only. Related Data Home Medications ?Medication ?Instructions ?Recorded ?Confirmed apixaban 2.5 mg tablet (Eliquis) 2.5 mg PO BID 03/29/24 03/14/25 nitroglycerin 0.4 mg sublingual 0.4 mg sublingual Q5-15M PRN Chest 03/29/24 03/14/25 tablet Pain ondansetron HCl 4 mg tablet 4 mg PO Q8H PRN Nausea And Vomiting 03/29/24 03/14/25 sennosides 8.6 mg tablet (senna) 8.6 mg PO DAILY constipation 03/29/24 03/14/25 lisinopril 10 mg tablet 10 mg PO DAILY 08/19/24 03/14/25 atorvastatin 80 mg tablet 80 mg PO ONCE PM 12/28/24 03/14/25 isosorbide mononitrate 30 mg 30 mg PO QAM 12/28/24 03/14/25 tablet,extended release 24 hr methocarbamol 500 mg tablet 500 mg PO 3XD 12/28/24 03/14/25 metoprolol succinate 100 mg 100 mg PO BID 12/28/24 03/14/25 tablet,extended release 24 hr tamsulosin 0.4 mg capsule 0.4 mg PO DAILY 12/28/24 03/14/25 Previous Rx's ?Medication ?Instructions ?Recorded promethazine 25 mg rectal 25 mg RI Q4-6H PRN nausea and 11/18/20 suppository vomiting #12 ea morphine 10 mg/5 mL oral solution 10 mg (5 mL) PO Q6H PRN pain #100 08/07/24 mL scopolamine base 1 mg over 3 days 1 patch topical Q72H #10 ea 12/31/24 transdermal patch (Transderm-Scop) duloxetine 20 mg capsule,delayed 40 mg (2 x 20 mg) PO DAILY #180 02/01/25 release caps furosemide 20 mg tablet 20 mg PO DAILY #90 tabs 02/01/25 pantoprazole 40 mg tablet,delayed 40 mg PO BID #90 tabs 02/25/25 release morphine 15 mg immediate release 7.5 - 15 mg (0.5 - 1 x 15 mg) PO 03/12/25 tablet Q3H PRN chest pain/bone pain #30 tabs hydromorphone 4 mg tablet 4 mg PO Q4-6H PRN pain #20 tabs 03/14/25 hydromorphone 4 mg tablet 4 mg PO Q4-6H PRN pain #30 tabs 03/15/25 (Dilaudid) Allergies Allergy/AdvReac Type Severity Reaction Status Date / Time No Known Drug Allergies Allergy Verified 03/14/25 09:02 Patient History Medical History Malignant neoplasm of prostate metastatic to bone Acute upper gastrointestinal bleeding Hypertensive urgency Colitis Hematuria Uncomplicated opioid dependence Generalized anxiety disorder Cannabis abuse Prostate cancer (~05/2019) Paroxysmal A-fib Transaminitis Kidney stones Diverticulosis of large intestine (03/31/12) Chronic hepatitis Coronary artery disease involving osage coronary artery of osage heart without angina pectoris (~2006) Essential hypertension Mixed hyperlipidemia Surgical History H/O heart artery stent (~2006) Hx of inguinal hernia surgery (~03/07/14) Hx of inguinal hernia surgery (~09/20/08) Status post laminectomy History of angioplasty (~12/2006) Social History marital status: unmarried,single number of children: 3 household members: caregiver lives independently: Yes caregiver/support person: No housing: house pets and animals: No education level: high school occupational status: other 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 HEAD: Atraumatic. Normocephalic. EYES: Pupils equal round and reactive. Extraocular motions intact. No scleral icterus. No injection or drainage. ENT: Nose without bleeding, purulent drainage. Throat without erythema, tonsillar hypertrophy or exudate. Airway patent. NECK: Trachea midline. Non tender CARDIOVASCULAR: Regular rate and rhythm without murmurs, gallops, or rubs. RESPIRATORY: Clear to auscultation. Breath sounds equal bilaterally. No wheezes, rales, or rhonchi. GASTROINTESTINAL: Abdomen soft, non-tender, nondistended. EXTREMITIES: No edema or joint tenderness. BACK: Nontender without deformity or crepitance. No flank tenderness. NEURO: AOx3. Motor functions grossly nonfocal. SKIN: No rash or erythema of visible areas Initial Vital Signs Initial Vital Signs: Vital Signs Temperature 96 F L 03/15/25 00:41 Pulse Rate 63 03/15/25 00:41 Respiratory Rate 18 03/15/25 00:41 Blood Pressure 197/114 H 03/15/25 00:41 Pulse Oximetry 99 03/15/25 00:41 Oxygen Delivery Method Room Air 03/15/25 00:41 Course Orders Ordered: ED Orders 03/15/25 00:55 Complete Blood Count AUTO DIFF Stat Comprehensive Metabolic Panel Stat Lipase Stat Troponin & CK Cardiac Panel Stat 03/15/25 01:41 XR chest 1V Stat EKG-12 Lead Stat Discontinued Medications Hydralazine HCl (Hydralazine 20 Mg/Ml Vial) 5 mg IV NOW ONE Stop: 03/15/25 03:34 Last Admin: 03/15/25 03:55 Dose: Not Given Documented By: AGUSTIN Hydromorphone HCl (Hydromorphone 1 Mg Inj) 1 mg IV NOW ONE Stop: 03/15/25 02:58 Last Admin: 03/15/25 03:05 Dose: 1 mg Documented By: AGUSTIN Hydromorphone HCl (Hydromorphone 2 Mg Tablet) 4 mg PO NOW ONE Stop: 03/15/25 03:38 Last Admin: 03/15/25 03:43 Dose: 4 mg Documented By: AGUSTIN Hydromorphone HCl (Hydromorphone Hcl 0.5 Mg/0.5 Ml Syringe) 0.5 mg IV NOW ONE Stop: 03/15/25 05:46 Last Admin: 03/15/25 06:17 Dose: 0.5 mg Documented By: AGUSTIN Vital Signs Vital signs: Vital Signs - 8 hr 03/15/25 00:41 03/15/25 01:05 03/15/25 01:30 Temperature 96 F L Pulse Rate 63 60 65 Respiratory Rate 18 10 L 17 Blood Pressure 197/114 H Pulse Oximetry 99 97 96 Oxygen Delivery Method Room Air 03/15/25 01:30 03/15/25 02:00 03/15/25 02:00 Temperature Pulse Rate 60 Respiratory Rate 19 Blood Pressure 180/115 H 204/122 H Pulse Oximetry 98 Oxygen Delivery Method 03/15/25 02:30 03/15/25 02:30 03/15/25 03:00 Temperature Pulse Rate 71 71 Respiratory Rate 14 9 L Blood Pressure 198/120 H Pulse Oximetry 96 99 Oxygen Delivery Method 03/15/25 03:00 03/15/25 03:30 03/15/25 03:31 Temperature Pulse Rate 72 71 Respiratory Rate 21 26 H Blood Pressure 198/126 H Pulse Oximetry 93 93 Oxygen Delivery Method 03/15/25 03:31 03/15/25 03:47 03/15/25 03:48 Temperature Pulse Rate 75 92 H Respiratory Rate 21 16 Blood Pressure 98/63 Pulse Oximetry 96 99 Oxygen Delivery Method 03/15/25 03:48 03/15/25 04:00 03/15/25 04:00 Temperature Pulse Rate 57 L Respiratory Rate 10 L Blood Pressure 106/80 190/120 H Pulse Oximetry 98 Oxygen Delivery Method 03/15/25 04:30 03/15/25 04:30 03/15/25 05:00 Temperature Pulse Rate 62 71 Respiratory Rate 27 H 16 Blood Pressure 194/116 H Pulse Oximetry 97 95 Oxygen Delivery Method 03/15/25 05:00 03/15/25 05:30 03/15/25 05:30 Temperature Pulse Rate 63 Respiratory Rate 14 Blood Pressure 107/74 192/124 H Pulse Oximetry 98 Oxygen Delivery Method 03/15/25 06:00 03/15/25 06:00 03/15/25 06:30 Temperature Pulse Rate 63 67 Respiratory Rate 14 14 Blood Pressure 190/122 H Pulse Oximetry 96 Oxygen Delivery Method Medical Decision Making Lab Data Lab results reviewed: Yes I reviewed the patient's lab results. Lab results narrative: White blood cell count 9200, hemoglobin 14.4, platelets adequate. Glucose 213. BUN 36 with creatinine 1.28. Serum CO2 27. Sodium 133 mildly decreased, potassium 3.7 normal range. Total bilirubin 1.8 mild elevation, other liver functions normal. Lipase normal. Troponin 0.053 indeterminate range. CPK 49 not elevated. 03/15/25 00:55 03/15/25 00:55 Labs: Lab Results 03/15/25 Range/Units 00:55 WBC 9.2 (4.5-11.0) X10^3/uL RBC 4.52 (4.5-5.9) X10^6/uL Hgb 14.4 (13.5-17.5) g/dL Hct 39.9 L (41-53) % MCV 88.2 (80-100) fL MCH 31.9 (26-34) PG MCHC 36.2 H (30-36) % RDW 13.0 (11.6-14.8) % Plt Count 134 L (150-400) X10^3/uL Neut % (Auto) 67.3 (50-75) % Lymph % (Auto) 16.0 L (25-40) % Newton % (Auto) 15.6 H (3-14) % Eos % (Auto) 0.2 L (2-4) % Baso % (Auto) 0.9 (0-2) % Neut # (Auto) 6200 (1507-4723) /uL Lymph # (Auto) 1500 (2486-2443) /uL Newton # (Auto) 1400 H (0-900) /uL Eos # (Auto) 0 (0-450) /uL Baso # (Auto) 100 (0-100) /uL RBC Morphology See below Rouleaux 1+ H Sodium 133 L (137-145) mmol/L Potassium 3.7 (3.4-5.1) mmol/L Chloride 96 L (98-107) mmol/L Carbon Dioxide 27 (22-32) mmol/L BUN 36 H (9-20) mg/dL Creatinine 1.28 H (0.66-1.25) mg/dL Estimated GFR > 60 (>60) mL/min BUN/Creatinine Ratio 28.1 H (6-22) Glucose 213 H (70-99) mg/dL Calcium 9.3 (8.4-10.2) mg/dL Total Bilirubin 1.8 H (0.2-1.3) mg/dL AST 52 (17-59) IU/L ALT 44 (<50) IU/L Alkaline Phosphatase 122 (38-126) U/L Total Creatine Kinase 49 L (55-170) U/L Troponin I 0.053 H (0.01-0.034) ng/mL Total Protein 8.2 (6.3-8.2) g/dL Albumin 4.5 (3.5-5.0) g/dL Globulin 3.7 (1.7-4.1) g/dL Albumin/Globulin Ratio 1.2 (1.0-2.8) Lipase 42 (23-300) U/L ECG Data Attestation: I personally reviewed and interpreted this ECG as follows: Interpretation: 0044, normal sinus rhythm with rate of 62, no obvious ST segment elevation or depression changes. Prominent T-waves laterally. MDM Narrative Medical decision making narrative: 69-year-old male with history of prostate cancer, back and abdominal and chest discomfort ongoing, ran out of morphine unable to fill his usual product apparently due to drug shortage, yesterday here in the emergency department was treated with Dilaudid IV and discharged on oral Dilaudid, that does not seem to be helping control his pain. Triage notes indicate chest pain, however he indicates left-sided abdominal pain to me as his chief complaint. Denies shortness of breath. Denies diarrhea. Denies nausea or vomiting. He feels that this is his usual cancer pain. Requesting pain medications. IV Dilaudid 1 mg. Labs sent from triage, along with chest x-ray and EKG. On chart review from visit yesterday there was progress note indicating DNR/DNI code status, pulsed interval change from desire for selected treatments to comfort measures only. Studies already initiated above, results pending. EKG without obvious ischemic changes. Chest x-ray without obvious acute changes. Lab data: White blood cell count 9200, hemoglobin 14.4, platelets adequate. Glucose 213. BUN 36 with creatinine 1.28. Serum CO2 27. Sodium 133 mildly decreased, potassium 3.7 normal range. Total bilirubin 1.8 mild elevation, other liver functions normal. Lipase normal. Troponin 0.053 indeterminate range. CPK 49 not elevated. Pain seemed improved after IV Dilaudid dose, later oral Dilaudid 4 mg dose given. Blood pressure also improved. Discussion of chronic cancer pain control. Consider scheduled oral Dilaudid dose 4 mg tablet to take every 6 hours on a regular scheduled basis, to hopefully obtain more even/better control of pain, with perhaps use of 1/2 scored tablet by mouth as needed for any breakthrough pain. Advised keep track of need for breakthrough pain doses, to see if maintenance regimen needs to be changed in follow up. An additional prescription for Dilaudid 30 tablets provided, to hopefully get through this long holiday weekend. Further pain management and home via family. Follow up with PCP Dr. Vasques next week. Return precautions discussed. Discharge Plan Departure Patient Disposition: Home Clinical Impression: Chronic pain, History of prostate cancer Instructions: DI for Cancer Pain Syndromes, Coping With Pain Related to Cancer and Chemotherapy Activity Restrictions/Additional Instructions: History of metastatic prostate cancer, chronic pain. Recent chest pain, declining further workup. Abdominal pain with screening labs unremarkable, declining further workup for today. Seen yesterday with poorly controlled chronic pain, seeking comfort measures. Recent prescription yesterday for oral Dilaudid to help control chronic pain. Oral Dilaudid single dose had been tried after discharge yesterday, then increased pain, prompting return visit. IV Dilaudid and later oral Dilaudid given. Pain seems controlled here. We discussed importance of regular scheduled pain medication to adequately control the chronic pain. Advised to take regular scheduled doses of the Dilaudid. This will hopefully better control pain, before it has a chance to significantly ramp up. Also makes dosing incremental increases in the future more predictable, if the dose needs to be titrated in follow up. Yesterday given a prescription for Dilaudid 4 mg tablets, to take every 4-6 hours as needed. Consider taking 1 tablet every 6 hours on a regular scheduled, then you might take and additional half tablet as needed for breakthrough pain. Keep track of the time of your doses, and the need for any breakthrough half tablet doses, as titration of your pain control regimen can be better adjusted/titrated in follow up. We will give additional prescription for further Dilaudid, to hopefully help get through this holiday weekend. Advised further titration of pain medication with your regular doctor early this next week. Return earlier to this/nearest emergency department for any change worsening symptoms or any concerns prior. Prescriptions: New hydromorphone [Dilaudid] 4 mg tablet 4 mg PO Q4-6H PRN (Reason: pain) Qty: 30 0RF No Action morphine 10 mg/5 mL solution 10 mg PO Q6H PRN (Reason: pain) Qty: 100 0RF pantoprazole 40 mg tablet,delayed release (DR/EC) 40 mg PO BID Qty: 90 0RF morphine 15 mg tablet 7.5 - 15 mg PO Q3H MDD 90mg PRN (Reason: chest pain/bone pain) Qty: 30 0RF Eliquis 2.5 mg tablet 2.5 mg PO BID sennosides [senna] 8.6 mg tablet 8.6 mg PO DAILY nitroglycerin 0.4 mg tablet, sublingual 0.4 mg sublingual Q5-15M PRN (Reason: Chest Pain) ondansetron HCl 4 mg tablet 4 mg PO Q8H PRN (Reason: Nausea And Vomiting) furosemide 20 mg tablet 20 mg PO DAILY Qty: 90 3RF duloxetine 20 mg capsule,delayed release(DR/EC) 40 mg PO DAILY Qty: 180 3RF lisinopril 10 mg tablet 10 mg PO DAILY metoprolol succinate 100 mg tablet extended release 24 hr 100 mg PO BID methocarbamol 500 mg tablet 500 mg PO 3XD atorvastatin 80 mg tablet 80 mg PO ONCE PM isosorbide mononitrate 30 mg tablet extended release 24 hr 30 mg PO QAM tamsulosin 0.4 mg capsule 0.4 mg PO DAILY scopolamine base [Transderm-Scop] 1 mg over 3 days Patch 3 Day 1 patch topical Q72H Qty: 10 0RF hydromorphone 4 mg tablet 4 mg PO Q4-6H PRN (Reason: pain) Qty: 20 0RF promethazine 25 mg suppository 25 mg RI Q4-6H PRN (Reason: nausea and vomiting) Qty: 12 0RF Referrals: Khang Vasques MD [Primary Care Provider, Internal Medicine] Stand Alone Forms: Patient Portal/API
[2025-03-15 01:57] LABS: Hemoglobin 14.4 g/dL (13.5-17.5); Lymphocytes Absolute Auto 1500 /uL (1100-4500)
[2025-03-15 01:59] LABS: Alanine Aminotransferase 44 IU/L (<50); Albumin 4.5 g/dL (3.5-5.0); Albumin Globulin Ratio 1.2 (1.0-2.8); Alkaline Phosphatase 122 U/L (38-126); Blood Urea Nitrogen 36 mg/dL (9-20); Calcium 9.3 mg/dL (8.4-10.2); Carbon Dioxide 27 mmol/L (22-32); Chloride 96 mmol/L (98-107); Creatine Kinase 49 U/L (55-170); Estimated Glomerular Filt Rate > 60 mL/min (>60); Globulin 3.7 g/dL (1.7-4.1); Glucose 213 mg/dL (70-99); HEMOLYSIS 50 (0-50); Lipase 42 U/L (23-300); Potassium 3.7 mmol/L (3.4-5.1); Sodium 133 mmol/L (137-145); Total Protein 8.2 g/dL (6.3-8.2)
[2025-03-15 02:11] LABS: Hematocrit 39.9 % (41-53); Mean Corpuscular HGB Conc 36.2 % (30-36); Mean Corpuscular Hemoglobin 31.9 PG (26-34); Mean Corpuscular Volume 88.2 fL (80-100); Platelet Count 134 X10^3/uL (150-400); Troponin I 0.053 ng/mL (0.01-0.034)
[2025-03-15 02:16] LABS: Add Manual Diff / Slide Review SLIDE REVIEW
[2025-03-15 02:29] LABS: Rouleaux 1+
[2025-03-15] MEDS: HYDROMORPHONE 1 MG INJ IV (03:05)
[2025-03-15] MEDS: HYDROMORPHONE 2 MG TABLET 4 MG PO (03:43)
--- NOTE | 2025-03-15 03:56 | PC.NURSE ---
discussed with pt the importance of taking pain medication before the pain became too severe, pt states he took one of the hydromorphone yesterday but it did not help but it was after he returned from the hospital yesterday and the pain was more intense but he did get some sleep and was awoken by the cp lluvia. pt states he IV medication given earlier relieved the pain but was starting to wear off explained to pt that we wanted to try the po medication that was Rx at this time so that it could start working before the other medication wore off completely and he started hurting too badly. pt verbalized understanding and is agreeable to the plan of care
--- NOTE | 2025-03-15 05:05 | PC.NURSE ---
discussed with pt the possibility of going home and the scheduling of his pain medication, pt states he is willing to give the scheduling a try to see if it helps to control the pain, pt will not give a straight answer as to if the medication given working well at this time pt states he is just trying to meditate right now. pt states he would like to ride out the pain med another hour before calling his ride and see how it goes.
--- NOTE | 2025-03-15 06:42 | PC.NURSE ---
discussed at length with pt and pt's the importance of giving the pain medication around the clock on a continuous schedule, it was also discussed how pt's bp drops when his pain is controlled so the best way to control the bp is to make sure the medication is given as discussed so the bp will not spike d/t pain. the plan of care regarding the medication discussed with the pt's and the pt and written and highlighted on pt's dc instructions. understanding verbalized and pt and his agree with the plan
== END 2025-03-15 06:48 | disposition home or self-care (01) ==
PROVIDERS: Emergency Provider Emergency Medicine; PCP Internal Medicine
DX: C61 Malignant neoplasm of prostate (principal); G89.29 Other chronic pain; M54.9 Dorsalgia, unspecified; R07.9 Chest pain, unspecified
CPT/HCPCS: 36415; 71045; 80053; 82550; 83690; 84484; 85025; 93005; 93010; 96374; 96375; 96376; 99284; J1171

== ENCOUNTER 2025-07-01 15:15 | Emergency (ER) | payer MEDICARE, OTHER, SELFPAY ==
[2024-12-28 19:31] VITALS: BMI 20.5
[2025-07-01 15:21] VITALS: BP 228/107; PULSE 67; RESP 16; TEMP 36.6; O2SAT 98; BMI 20.3
--- NOTE | 2025-07-01 15:21 | EKG_ITS ---
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
[2025-07-01 15:30] VITALS: BP 215/115; PULSE 73; RESP 16; O2SAT 99
[2025-07-01 15:32] LABS: Add Manual Diff / Slide Review NO; Hematocrit 37.5 % (41-53); Hemoglobin 13.1 g/dL (13.5-17.5); Lymphocytes Absolute Auto 600 /uL (1100-4500); Mean Corpuscular HGB Conc 35.0 % (30-36); Mean Corpuscular Hemoglobin 31.3 PG (26-34); Mean Corpuscular Volume 89.3 fL (80-100); Platelet Count 127 X10^3/uL (150-400)
--- NOTE | 2025-07-01 15:32 | ED_ITS ---
HPI - General Adult General Chief complaint: Abdominal Pain Stated complaint: LLQ Abd Pain Time Seen by Provider: 07/01/25 15:22 Source: patient and EMS Mode of arrival: EMS History of Present Illness HPI narrative: 69-year-old gentleman with a history of paroxysmal atrial fibrillation for which he is anticoagulated, problems with hypotension and metoprolol has recently been slightly lowered, hyperlipidemia and metastatic prostate cancer with significant ongoing chronic pain issues, diabetes, complains that his pain is out of control which is making his blood pressure significantly elevated. He is needing to void every 20 minutes over the course of last night with dysuria at the end of his void. He notes that he has been having normal bowel movements. He has not describing chest pain or shortness of breath. No palpitations. No fevers or cough. He states that he typically takes 30 mg of extended release morphine half a pill b.i.d. and [facility] has not been able to refill that for the last 3 days. Apparently it was filled this morning. Over the last 3 days he has been trying to cover his pain with oral Dilaudid, oral morphine and old hydrocodone that he had at home but is finding that they were not effective. Related Data Home Medications ?Medication ?Instructions ?Recorded ?Confirmed apixaban 2.5 mg tablet (Eliquis) 2.5 mg PO BID 4 05/30/25 nitroglycerin 0.4 mg sublingual 0.4 mg sublingual Q5-1 5M PRN Chest 03/29/24 05/30/25 tablet Pain ondansetron HCl 4 mg tablet 4 mg PO Q8H PRN Nausea And Vomiting 03/29/24 05/30/25 sennosides 8.6 mg tablet (senna) 8.6 mg PO DAILY const ipation 03/29/24 05/30/25 atorvastatin 80 mg tablet 80 mg PO ONCE PM 12/28/24 isosorbide mononitrate 30 mg 30 mg PO QAM 12/28/24 tablet,extended release 24 hr methocarbamol 500 mg tablet 500 mg PO 3XD 12/28/24 tamsulosin 0.4 mg capsule 0.4 mg PO DAILY 12/28/24 metoprolol succinate 100 mg 50 mg PO DAILY 05/02/25 tablet,extended release 24 hr Previous Rx's ?Medication ?Instructions ?Recorded promethazine 25 mg rectal 25 mg WA Q4-6H PRN nausea an d 11/18/20 suppository vomiting #12 ea morphine 10 mg/5 mL oral solution 10 mg (5 mL) PO Q6H PRN pain #100 08/07/24 mL scopolamine base 1 mg over 3 days 1 patch topical Q72H #10 ea 12/31/24 transdermal patch (Transderm-Scop) duloxetine 20 mg capsule,delayed 40 mg (2 x 20 mg) PO DAILY #180 02/01/25 release caps furosemide 20 mg tablet 20 mg PO DAILY #90 tabs 01/11 12/04 pantoprazole 40 mg tablet,delayed 40 mg PO QAM #90 tab s 04/10/25 release cyclobenzaprine 5 mg tablet 5 mg PO TID PRN Spasms #60 tabs 06/17/25 morphine 30 mg immediate release 15 mg (1/2 x 30 mg) P O Q4-6H PRN 06/27/25 tablet pain #75 tabs hydromorphone 4 mg tablet 4 mg PO Q4-6H PRN pain #60 t abs 07/01/25 (Dilaudid) naloxone 4 mg/actuation nasal 4 mg intranasal Q2M #2 e a 07/01/25 spray (Narcan) Allergies Allergy/AdvReac Type Severity Reaction Status Date / Time No Known Drug Allergies Allergy Verified 07/01/25 15:27 Review of Systems Review of Systems Narrative: Pertinent positive and negative findings as per HPI Patient History Medical History (Updated 07/01/25 @ 16:56 by Sue Raygoza MD) 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 Malignant neoplasm of prostate metastatic to bone Acute upper gastrointestinal bleeding Hypertensive urgency Colitis Hematuria Uncomplicated opioid dependence Generalized anxiety disorder Cannabis abuse Prostate cancer (~05/2019) Paroxysmal A-fib Transaminitis Kidney stones Diverticulosis of large intestine (03/31/12) Chronic hepatitis Coronary artery disease involving [place] coronary artery of [place] heart without angina pectoris (~2006) Essential hypertension Mixed hyperlipidemia Surgical History H/O heart artery stent (~2006) Hx of inguinal hernia surgery (~03/07/14) Hx of inguinal hernia surgery (~09/20/08) Status post laminectomy History of angioplasty (~12/2006) Social History marital status: unmarried,single number of children: 3 household members: caregiver lives independently: Yes caregiver/support person: No housing: house pets and animals: No education level: high school occupational status: other 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/confucianism: None leisure activities: music, fishing and other Tobacco: How many years used: 56 Smokeless tobacco user: other quit status: has quit before second hand exposure: Yes (On farmland/Boat.) alcohol intake: former substance use type: does not use and marijuana eating out: rarely or never Type(s) of exercise: normal ROM and activity and additional alcohol intake frequency: 0-2 drinks per day Alcohol type: beer Exam Initial Vital Signs Initial Vital Signs: Vital Signs Temperature 97.8 F 07/01/25 15:21 Pulse Rate 67 07/01/25 15:21 Respiratory Rate 16 07/01/25 15:21 Blood Pressure 228/107 H 07/01/25 15:21 Pulse Oximetry 98 07/01/25 15:21 Oxygen Delivery Method Room Air 07/01/25 15:21 General: Frail, thin, in obvious pain HEENT: Dry mucous membranes, normal sclera with reactive pupils, Respiratory: Lungs are clear to auscultation, no wheezing no rales no rhonchi. Full and symmetrical air movement Cardiac: Regular rate and rhythm no murmurs no bruits Abdomen: Scaphoid, no rebound or guarding, hypoactive bowel tones. Skin: Pale, moderately perfused Neurologic: Globally weak but otherwise Grossly neurologically intact with no obvious asymmetries or abnormalities Extremities: No trauma, well perfused Psych: Cooperative, appropriate insight and affect Bladder scan has 130 cc in the bladder Course Orders Ordered: ED Orders 07/01/25 15:21 EKG-12 Lead Stat 07/01/25 15:24 Complete Blood Count AUTO DIFF Stat Comprehensive Metabolic Panel Stat Lipase Stat Discontinued Medications Hydromorphone HCl (Hydromorphone Hcl 0.5 Mg/0.5 Ml Syringe) 1 mg IV Q15MIN PRN PRN Reason: Pain, Last Admin: 07/01/25 16:35 Dose: 1 mg Documented By: Admin: 07/01/25 16:04 Dose: 1 mg Documented By: Admin: 07/01/25 15:38 Dose: 1 mg Documented By: GUILLERMO Sodium Chloride (Normal Saline 0.9%) 1,000 mls @ 1,000 mls/hr IV BOLUS ONE Stop: 07/01/25 16:33 Last Infusion: 07/01/25 17:14 Dose: Infused Documented By: Admin: 07/01/25 15:44 Dose: 1,000 mls/hr Documented By: GUILLERMO Ondansetron HCl (Ondansetron 4 Mg/2 Ml Inj) 4 mg IV NOW PRN PRN Reason: Nausea And Vomiting Ondansetron HCl (Ondansetron 4 Mg Odt) 4 mg PO NOW PRN PRN Reason: Nausea And Vomiting Vital Signs Vital signs: Vital Signs - 8 hr 07/01/25 16:00 07/01/25 16:29 07/01/25 16:30 Pulse Rate 73 80 81 Respiratory Rate 16 21 20 Blood Pressure 200/115 H Pulse Oximetry 98 97 98 Oxygen Delivery Method Room Air 07/01/25 16:31 07/01/25 16:31 Pulse Rate 83 Respiratory Rate 23 Blood Pressure 129/73 Pulse Oximetry 97 Oxygen Delivery Method Medical Decision Making Lab Data 07/01/25 15:24 07/01/25 15:24 Labs: Lab Results 07/01/25 Range/Units 15:24 WBC 4.5 (4.5-11.0) X10^3/uL RBC 4.20 L (4.5-5.9) X10^6/uL Hgb 13.1 L (13.5-17.5) g/dL Hct 37.5 L (41-53) % MCV 89.3 (80-100) fL MCH 31.3 (26-34) PG MCHC 35.0 (30-36) % RDW 13.8 (11.6-14.8) % Plt Count 127 L (150-400) X10^3/uL Neut % (Auto) 82.0 H (50-75) % Lymph % (Auto) 12.2 L (25-40) % [place] % (Auto) 5.2 (3-14) % Eos % (Auto) 0.1 L (2-4) % Baso % (Auto) 0.5 (0-2) % Neut # (Auto) 3700 (8344-0915) /uL Lymph # (Auto) 600 L (1913-4690) /uL [place] # (Auto) 200 (0-900) /uL Eos # (Auto) 0 (0-450) /uL Baso # (Auto) 0 (0-100) /uL Sodium 135 L (137-145) mmol/L Potassium 3.1 L (3.4-5.1) mmol/L Chloride 102 (98-107) mmol/L Carbon Dioxide 24 (22-32) mmol/L BUN 10 (9-20) mg/dL Creatinine 0.84 (0.66-1.25) mg/dL Estimated GFR > 60 (>60) mL/min BUN/Creatinine Ratio 11.9 (6-22) Glucose 240 H (70-99) mg/dL Calcium 9.3 (8.4-10.2) mg/dL Total Bilirubin 1.3 (0.2-1.3) mg/dL AST 70 H (17-59) IU/L ALT 60 H (<50) IU/L Alkaline Phosphatase 171 H (38-126) U/L Total Protein 7.8 (6.3-8.2) g/dL Albumin 4.3 (3.5-5.0) g/dL Globulin 3.5 (1.7-4.1) g/dL Albumin/Globulin Ratio 1.2 (1.0-2.8) Lipase 35 (23-300) U/L MDM Narrative Medical decision making narrative: CC: Severe abdominal pain Complicating co-morbidities: Chronic narcotic use for prostate cancer metastatic to bone, out of his extended release morphine over the last 3 days, paroxysmal atrial fibrillation, hypertension, hyperlipidemia Data collected from: patient, medics Social determinants of health that may influence the patients condition: Patient is DNR DNI, he has a friend who lives with him on his property and a caregiver who has been helping him for the last 6 years Medical records reviewed: Primary care notes from March and May are reviewed Differential considered: Narcotic withdrawal with exacerbation of metastatic cancer pain, hypertensive crisis, progressive metastatic disease, intra-abdominal infection or obstruction Exam documented above, pertinent findings include: In obvious pain, alert, significantly hypertensive. Abdomen is moderately tender without rebound or guarding. No obvious extremity abnormality Lab Test results independently reviewed as above. Pertinent findings: CBC is unremarkable Chemistries are notable for appropriate renal function, hypokalemia at 3.1, slight increased to AST ALT and alk-phos compared to numbers in March Lipase is unremarkable Independently reviewed EKG: Sinus rhythm at a rate of 73 without acute ischemia Imaging studies independently reviewed: Patient is re-evaluated. With Dilaudid and pain controlled blood pressure is back to normal, patient feels that he is back to his baseline. We discussed the slightly elevated ALT AST and alk-phos and the fact that his last CT scan was in December and he has stopped his prostate cancer treatment. Discuss the possibility of intra-abdominal cancer progression or other abnormalities and he chose not to proceed with any advanced imaging Treatments: Fluids, Zofran, IV Dilaudid Discussion: 69-year-old gentleman with chronic pain from metastatic prostate cancer with chronic narcotic habituation, he is pharmacy was unable to refill his extended release morphine for the last 3 days and he presents with increasing abdominal pain and significantly elevated blood pressure. All of his symptoms have improved significantly once his pain was adequately controlled. We had a long discussion regarding any further workup he feels that this was a significant pain exacerbation that he just could not get under control with the short-acting medications he had available at home. The prescription for the extended release morphine was filled this morning, he was caregiver has picked it up she is on her way in. He will take his usual dose this evening 730. I have refilled his 4 mg oral Dilaudid tablets for use with breakthrough pain as he has use more over the last 3 days trying to stay on top of his pain control. He has caregivers and friends to help at home, there was no indication of sepsis, severe intra-abdominal abnormalities reasons for further imaging or hospitalization and he will be discharged home Discharge Plan Departure Patient Disposition: Home Clinical Impression: Malignant neoplasm of prostate metastatic to bone, Acute narcotic withdrawal, Uncontrolled pain Instructions: DI for Chronic Pain -- Adult, Naloxone for Opiate Overdose - WADOH Activity Restrictions/Additional Instructions: Thank you for coming in today I believe that you are correct, your abdominal pain the diaphoresis and severe hypertension are all related to not having your morphine filled for the last 72 hours. It looks like this was an issue in March as well. It may be worthwhile to have prescriptions filled a week or so before they are due so that does not continue to happen. You have said that your medication was filled today so you will be able to have your dose this evening. It does look like the Dilaudid we have given you in the emergency department has gotten you back to adequately control pain levels. We discussed your blood work and decided to not do any additional imaging such as CT studies. I have refilled your oral Dilaudid prescription for breakthrough pain. Prescriptions were sent to [facility] [place] I have also given you a prescription for Narcan in case you accidentally take too much narcotic in your breathing is compromised Prescriptions: New hydromorphone [Dilaudid] 4 mg tablet 4 mg PO Q4-6H PRN (Reason: pain) Qty: 60 0RF naloxone [Narcan] 4 mg/actuation spray,non-aerosol 4 mg intranasal Q2M Qty: 2 0RF Rx Instructions: spray 1 dose into ONE nostril; alternate nostrils w each dose until help arrives No Action morphine 10 mg/5 mL solution 10 mg PO Q6H PRN (Reason: pain) Qty: 100 0RF pantoprazole 40 mg tablet,delayed release (DR/EC) 40 mg PO QAM Qty: 90 3RF cyclobenzaprine 5 mg tablet 5 mg PO TID PRN (Reason: Spasms) Qty: 60 0RF morphine 30 mg tablet 15 mg PO Q4-6H MDD 90 mg PRN (Reason: pain) Qty: 75 0RF Eliquis 2.5 mg tablet 2.5 mg PO BID sennosides [senna] 8.6 mg tablet 8.6 mg PO DAILY nitroglycerin 0.4 mg tablet, sublingual 0.4 mg sublingual Q5-15M PRN (Reason: Chest Pain) ondansetron HCl 4 mg tablet 4 mg PO Q8H PRN (Reason: Nausea And Vomiting) furosemide 20 mg tablet 20 mg PO DAILY Qty: 90 3RF duloxetine 20 mg capsule,delayed release(DR/EC) 40 mg PO DAILY Qty: 180 3RF metoprolol succinate 100 mg tablet extended release 24 hr 50 mg PO DAILY methocarbamol 500 mg tablet 500 mg PO 3XD atorvastatin 80 mg tablet 80 mg PO ONCE PM isosorbide mononitrate 30 mg tablet extended release 24 hr 30 mg PO QAM tamsulosin 0.4 mg capsule 0.4 mg PO DAILY scopolamine base [Transderm-Scop] 1 mg over 3 days Patch 3 Day 1 patch topical Q72H Qty: 10 0RF promethazine 25 mg suppository 25 mg WA Q4-6H PRN (Reason: nausea and vomiting) Qty: 12 0RF Referrals: Khang Vasques MD [Primary Care Provider, Internal Medicine] Stand Alone Forms: Patient Portal/API
[2025-07-01 15:43] LABS: Alanine Aminotransferase 60 IU/L (<50); Albumin 4.3 g/dL (3.5-5.0); Albumin Globulin Ratio 1.2 (1.0-2.8); Alkaline Phosphatase 171 U/L (38-126); Blood Urea Nitrogen 10 mg/dL (9-20); Calcium 9.3 mg/dL (8.4-10.2); Carbon Dioxide 24 mmol/L (22-32); Chloride 102 mmol/L (98-107); Estimated Glomerular Filt Rate > 60 mL/min (>60); Globulin 3.5 g/dL (1.7-4.1); Glucose 240 mg/dL (70-99); HEMOLYSIS < 15 (0-50); Lipase 35 U/L (23-300); Potassium 3.1 mmol/L (3.4-5.1); Sodium 135 mmol/L (137-145); Total Protein 7.8 g/dL (6.3-8.2)
[2025-07-01] MEDS: SODIUM CHLORIDE 0.9% 1,000 ML 1000 ML IV (15:44)
[2025-07-01 16:00] VITALS: BP 200/115; PULSE 73; RESP 16; O2SAT 98
[2025-07-01 16:29] VITALS: PULSE 80; RESP 21; O2SAT 97
[2025-07-01 16:30] VITALS: PULSE 81; RESP 20; O2SAT 98
[2025-07-01 16:31] VITALS: BP 129/73; PULSE 83; RESP 23; O2SAT 97
== END 2025-07-01 18:20 | disposition home or self-care (01) ==
PROVIDERS: Emergency Provider Emergency Medicine; PCP Internal Medicine
DX: C61 Malignant neoplasm of prostate (principal); C79.51 Secondary malignant neoplasm of bone; F11.93 Opioid use, unspecified with withdrawal; R30.0 Dysuria
CPT/HCPCS: 36415; 80053; 83690; 85025; 93005; 96361; 96374; 96376; 99284; J1171; J7030

== ENCOUNTER 2025-07-10 19:34 | Emergency (ER) | payer MEDICARE, OTHER, SELFPAY ==
[2024-12-28 19:31] VITALS: BMI 20.5
[2025-07-10] VITALS (8 sets, daily range): BP systolic 109–143; BP diastolic 69–89; PULSE 76–90; RESP 16; TEMP 36.9; O2SAT 96–97; BMI 21.4
--- NOTE | 2025-07-10 21:59 | ED.GENADULT ---
HPI - General Adult General Chief complaint: Hypertension Stated complaint: asymptomatic htn Time Seen by Provider: 07/10/25 20:40 Source: patient and EMS Mode of arrival: EMS History of Present Illness HPI narrative: 69-year-old male with known paroxysmal atrial fibrillation for which he is anticoagulated along with hypotension and metoprolol. His main issue was this metastatic prostate cancer which she has significant ongoing chronic pain issues. He comes in due to his blood pressure being on the higher side along with uncontrolled pain again. He is currently on oral Dilaudid, oral morphine. His last dose of Dilaudid was this a.m. along with the morphine. Currently has overall pain in his prostated and lower abdominal area as usual but more than usual. Related Data Home Medications ?Medication ?Instructions ?Recorded ?Confirmed apixaban 2.5 mg tablet (Eliquis) 2.5 mg PO BID 03/29/24 05/30/25 nitroglycerin 0.4 mg sublingual 0.4 mg sublingual Q5-15M PRN Chest 03/29/24 05/30/25 tablet Pain ondansetron HCl 4 mg tablet 4 mg PO Q8H PRN Nausea And Vomiting 03/29/24 05/30/25 sennosides 8.6 mg tablet (senna) 8.6 mg PO DAILY constipation 03/29/24 05/30/25 atorvastatin 80 mg tablet 80 mg PO ONCE PM 12/28/24 05/30/25 isosorbide mononitrate 30 mg 30 mg PO QAM 12/28/24 05/30/25 tablet,extended release 24 hr methocarbamol 500 mg tablet 500 mg PO 3XD 12/28/24 05/30/25 tamsulosin 0.4 mg capsule 0.4 mg PO DAILY 12/28/24 05/30/25 metoprolol succinate 100 mg 50 mg PO DAILY 05/02/25 05/30/25 tablet,extended release 24 hr Previous Rx's ?Medication ?Instructions ?Recorded promethazine 25 mg rectal 25 mg MA Q4-6H PRN nausea and 11/18/20 suppository vomiting #12 ea morphine 10 mg/5 mL oral solution 10 mg (5 mL) PO Q6H PRN pain #100 08/07/24 mL scopolamine base 1 mg over 3 days 1 patch topical Q72H #10 ea 12/31/24 transdermal patch (Transderm-Scop) duloxetine 20 mg capsule,delayed 40 mg (2 x 20 mg) PO DAILY #180 02/01/25 release caps furosemide 20 mg tablet 20 mg PO DAILY #90 tabs 02/01/25 pantoprazole 40 mg tablet,delayed 40 mg PO QAM #90 tabs 04/10/25 release cyclobenzaprine 5 mg tablet 5 mg PO TID PRN Spasms #60 tabs 06/17/25 morphine 30 mg immediate release 15 mg (1/2 x 30 mg) PO Q4-6H PRN 06/27/25 tablet pain #75 tabs hydromorphone 4 mg tablet 4 mg PO Q4-6H PRN pain #60 tabs 07/01/25 (Dilaudid) naloxone 4 mg/actuation nasal 4 mg intranasal Q2M #2 ea 07/01/25 spray (Narcan) Allergies Allergy/AdvReac Type Severity Reaction Status Date / Time No Known Drug Allergies Allergy Verified 07/10/25 19:35 Review of Systems Review of Systems ROS Unobtainable: All systems reviewed & are unremarkable except as noted in HPI and below Patient History Medical History (Updated 07/11/25 @ 00:45 by Jabari Garza MD) 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 Malignant neoplasm of prostate metastatic to bone Acute upper gastrointestinal bleeding Hypertensive urgency Colitis Hematuria Uncomplicated opioid dependence Generalized anxiety disorder Cannabis abuse Prostate cancer (~05/2019) Paroxysmal A-fib Transaminitis Kidney stones Diverticulosis of large intestine (03/31/12) Chronic hepatitis Coronary artery disease involving [place] coronary artery of [place] heart without angina pectoris (~2006) Essential hypertension Mixed hyperlipidemia Surgical History H/O heart artery stent (~2006) Hx of inguinal hernia surgery (~03/07/14) Hx of inguinal hernia surgery (~09/20/08) Status post laminectomy History of angioplasty (~12/2006) Social History marital status: unmarried,single number of children: 3 household members: caregiver lives independently: Yes caregiver/support person: No housing: house pets and animals: No education level: high school occupational status: other 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/spiritism: None leisure activities: music, fishing and other Tobacco: How many years used: 56 Smokeless tobacco user: other quit status: has quit before second hand exposure: Yes (On farmland/Boat.) alcohol intake: former substance use type: does not use and marijuana eating out: rarely or never Type(s) of exercise: normal ROM and activity and additional alcohol intake frequency: 0-2 drinks per day Alcohol type: beer Exam Narrative Exam Narrative: General: Patient appears very frail and weak. Head: normocephalic, atraumatic, HEENT: Pupils equal round reactive, eyes tracking well, neck supple, no JVD Heart: regular rate and rhythm, no murmurs, rubs, or gallops heard Lungs: clear to auscultation, no adventitious sounds Abdomen: soft , nontender, nondistended, positive bowel sounds Neurological: no focal neurological signs, moving all extremities well, alert and oriented x3, Psych: good judgment ,good insight, mood is normal. Initial Vital Signs Initial Vital Signs: Vital Signs Pulse Rate 88 07/10/25 19:40 Blood Pressure 120/86 07/10/25 19:40 Pulse Oximetry 96 07/10/25 19:40 Course Orders Ordered: Discontinued Medications Hydromorphone HCl (Hydromorphone 1 Mg/Ml Syringe) 1 mg IV Q15MIN PRN PRN Reason: Pain, Moderate (4-6) Last Admin: 07/11/25 00:51 Dose: 1 mg Documented By: Admin: 07/10/25 23:06 Dose: 1 mg Documented By: Admin: 07/10/25 22:25 Dose: 1 mg Documented By: MEGGAN Metoclopramide HCl (Metoclopramide 10 Mg/2 Ml Inj) 10 mg IV NOW ONE Stop: 07/10/25 23:12 Last Admin: 07/11/25 00:25 Dose: 10 mg Documented By: ANDREAS Ondansetron HCl (Ondansetron 4 Mg/2 Ml Inj) 4 mg IV Q2HR PRN PRN Reason: Nausea And Vomiting Reevaluation(s) Reevaluation #1: Upon re-evaluation, patient's blood pressure and pain are much better after a dose of Dilaudid. He is still a bit nauseous though. Time: 23:11 Reevaluation #2: He is symptom-free after another dose of Dilaudid and Reglan. Vital Signs Vital signs: Vital Signs - 8 hr 07/10/25 20:00 07/10/25 20:00 07/10/25 20:30 Pulse Rate 84 Blood Pressure 140/82 143/87 H Pulse Oximetry 96 07/10/25 20:30 07/10/25 21:00 07/10/25 21:00 Pulse Rate 76 85 Blood Pressure 109/69 Pulse Oximetry 97 96 07/10/25 23:00 07/10/25 23:01 07/10/25 23:01 Pulse Rate 90 80 Blood Pressure 132/89 Pulse Oximetry 96 96 07/10/25 23:30 07/10/25 23:30 07/11/25 00:00 Pulse Rate 87 75 Blood Pressure 134/82 Pulse Oximetry 97 97 07/11/25 00:00 07/11/25 00:30 07/11/25 00:30 Pulse Rate 72 Blood Pressure 141/88 H 138/86 Pulse Oximetry 98 07/11/25 01:00 07/11/25 01:00 Pulse Rate 74 Blood Pressure 142/83 H Pulse Oximetry 96 Medical Decision Making MDM Narrative Medical decision making narrative: 69-year-old male with chronic pain from metastatic prostate cancer who is a chronic narcotic user at this point. He was given Dilaudid for breakthrough pain by previous ER physician. He also has his prescription for extended-release morphine. He does say that he has enough Dilaudid at this point. Advised to use Dilaudid on top of the extended release morphine in order to prevent breakthrough pain. Advised that he may need pain medicine referral in order to better control his pain if he still having breakthrough pain. He did eventually have pain control after 3 doses of Dilaudid. Discharge Plan Departure Patient Disposition: Home Clinical Impression: Chronic pain due to malignant neoplastic disease Instructions: DI for Chronic Pain -- Adult Activity Restrictions/Additional Instructions: Stay on morphine as prescribed. May need to add an additional dose of Dilaudid in between morphine doses in order to stay on top of the pain. If pain is still not controlled, may need pain medicine referral. I think blood pressure may be related to the pain. If blood pressure is still elevated regardless of pain, maybe low take an additional metoprolol half dose when blood pressure becomes very elevated. Discussed with PCP about changes. Prescriptions: No Action morphine 10 mg/5 mL solution 10 mg PO Q6H PRN (Reason: pain) Qty: 100 0RF pantoprazole 40 mg tablet,delayed release (DR/EC) 40 mg PO QAM Qty: 90 3RF cyclobenzaprine 5 mg tablet 5 mg PO TID PRN (Reason: Spasms) Qty: 60 0RF morphine 30 mg tablet 15 mg PO Q4-6H MDD 90 mg PRN (Reason: pain) Qty: 75 0RF Eliquis 2.5 mg tablet 2.5 mg PO BID sennosides [senna] 8.6 mg tablet 8.6 mg PO DAILY nitroglycerin 0.4 mg tablet, sublingual 0.4 mg sublingual Q5-15M PRN (Reason: Chest Pain) ondansetron HCl 4 mg tablet 4 mg PO Q8H PRN (Reason: Nausea And Vomiting) furosemide 20 mg tablet 20 mg PO DAILY Qty: 90 3RF duloxetine 20 mg capsule,delayed release(DR/EC) 40 mg PO DAILY Qty: 180 3RF metoprolol succinate 100 mg tablet extended release 24 hr 50 mg PO DAILY methocarbamol 500 mg tablet 500 mg PO 3XD atorvastatin 80 mg tablet 80 mg PO ONCE PM isosorbide mononitrate 30 mg tablet extended release 24 hr 30 mg PO QAM tamsulosin 0.4 mg capsule 0.4 mg PO DAILY scopolamine base [Transderm-Scop] 1 mg over 3 days Patch 3 Day 1 patch topical Q72H Qty: 10 0RF hydromorphone [Dilaudid] 4 mg tablet 4 mg PO Q4-6H PRN (Reason: pain) Qty: 60 0RF naloxone [Narcan] 4 mg/actuation spray,non-aerosol 4 mg intranasal Q2M Qty: 2 0RF Rx Instructions: spray 1 dose into ONE nostril; alternate nostrils w each dose until help arrives promethazine 25 mg suppository 25 mg MA Q4-6H PRN (Reason: nausea and vomiting) Qty: 12 0RF Referrals: Khang Vasques MD [Primary Care Provider, Internal Medicine] Stand Alone Forms: Patient Portal/API
[2025-07-11] VITALS: BP 141/88; PULSE 75; O2SAT 97
[2025-07-11] MEDS: METOCLOPRAMIDE 10 MG/2 ML INJ IV (00:25)
[2025-07-11 00:30] VITALS: BP 138/86; PULSE 72; O2SAT 98
[2025-07-11 01:00] VITALS: BP 142/83; PULSE 74; O2SAT 96
== END 2025-07-11 01:17 | disposition home or self-care (01) ==
PROVIDERS: Emergency Provider Family Medicine; PCP Internal Medicine
DX: C61 Malignant neoplasm of prostate (principal); I48.91 Unspecified atrial fibrillation; Z79.01 Long term (current) use of anticoagulants
CPT/HCPCS: 96374; 96375; 96376; 99283; 99284; J1171; J2765

== ENCOUNTER 2025-08-13 11:42 | Emergency (ER) | payer MEDICARE, OTHER, SELFPAY ==
[2025-08-13] VITALS (12 sets, daily range): BP systolic 133–184; BP diastolic 87–123; PULSE 72–84; RESP 10–16; TEMP 36.7; O2SAT 96–99; BMI 21.9
--- NOTE | 2025-08-13 12:03 | DI.CT.S_ITS ---
PROCEDURE: CT CHEST ABD PEL W CON INDICATIONS: pain - fall TECHNIQUE: After the administration of intravenous contrast, 5 mm thick sections acquired from the lung apices to the symphysis. 2.5 mm thick coronal and sagittal reformats were acquired. Additional 7 mm thick coronal maximum intensity projection (MIP) reformats acquired through the lungs. Optional 10-minute delayed imaging may be performed from the kidneys to the bladder. For radiation dose reduction, the following was used: automated exposure control, adjustment of mA and/or kV according to patient size. COMPARISON: [facility], CT, CT ABDOMEN PELVIS W CON, 03/13/2025, 0:49. FINDINGS: Image quality: Diagnostic. CHEST: Lower Neck: No enlarged lymph nodes. Thyroid: No thyroid nodules which require sonographic evaluation. Axillae: No enlarged lymph nodes. Chest Wall: No subcutaneous gas. Lungs and Pleura: No pulmonary contusions or lacerations. No acute airspace opacities. No pneumothorax or hemothorax. Mediastinum: No mediastinal hematomas. Heart size is normal. Severe coronary artery calcifications including dense left main coronary artery calcifications. No pericardial effusion. Thoracic aorta and pulmonary arteries demonstrate normal size and enhancement. No mediastinal or hilar adenopathy. Esophagus is normal in caliber. No hiatal hernia. ABDOMEN: Liver: No lacerations. Cirrhotic change in the liver. No focal liver mass identified. Gallbladder: No radiopaque gallstones or wall thickening. Biliary ducts: No biliary dilation. Pancreas: Homogenous enhancement. Spleen: Homogenous enhancement without laceration or hematoma. Adrenal Glands: Symmetric enhancement. Kidneys and Ureters: Symmetric enhancement. No hydronephrosis. No solid mass. No complex renal cystic lesion which requires follow up. Stomach and Bowel: Normal colonic caliber, without significant wall thickening. Diverticulosis. Peritoneum: No abnormal intraperitoneal fluid. No free air. Ventral Wall: No hernia. Abdominal Nodes: No retroperitoneal or mesenteric adenopathy by size criteria. Vessels: Aorta and inferior vena cava are normal in size. PELVIS: Pelvic Organs: Prostate implant seeds.. Bladder: Normal thickness. Pelvic Nodes: No enlarged lymph nodes. Miscellaneous: No inguinal hernias are seen. Bones: Pelvic ring and hip joints appear intact. No displaced rib fractures. Old healed left posterior 9th and 10th rib fractures. Sclerotic metastatic disease again noted involving the right baron sacrum and medial right iliac bone and L2 vertebral body. Question development of a pathologic right baron sacral sacral insufficiency fracture. IMPRESSION: 1. Prostate carcinoma with known bony metastatic disease. 2. Suspect development of a pathologic right sacral insufficiency fracture involving bone with metastatic disease. This is of uncertain chronicity relative to the acute traumatic event. 3. No other potentially significant sequelae of acute trauma in the chest, abdomen, and pelvis. 4. Severe coronary artery calcifications including left main coronary artery calcifications. 5. Cirrhosis. Dictated by: Esa Frost M.D. on 08/13/2025 at 13:46 Approved by: Esa Frost M.D. on 08/13/2025 at 13:56
--- NOTE | 2025-08-13 12:04 | DI.CT.S_ITS ---
PROCEDURE: CT HEAD/BRAIN WO CON INDICATIONS: Trauma TECHNIQUE: Noncontrast 4.5 mm thick angled axial sections acquired from the foramen magnum to the vertex, with coronal and sagittal reformats. For radiation dose reduction, the following was used: automated exposure control, adjustment of mA and/or kV according to patient size. COMPARISON: [facility], CT, CT HEAD/BRAIN WO CON, 12/05/2024, 9:03. FINDINGS: Image quality: Diagnostic. CSF spaces: Basal cisterns are patent. No extra-axial fluid collections. The ventricles are symmetric in size and shape. Brain: No intracranial bleeds or mass effect. There is cerebral volume loss, with resultant ventricular and sulcal prominence. There are periventricular and deep white matter chronic small vessel ischemic changes. There is intracranial internal carotid artery atherosclerosis. Skull and face: Calvarium and visualized facial bones appear intact, without suspicious lesions. Sinuses: Visualized sinuses and mastoids are clear. IMPRESSION: 1. No acute intracranial process. 2. Mild to moderate atrophy and chronic microvascular ischemic changes. Dictated by: Chichi Collado M.D. on 08/13/2025 at 13:42 Approved by: Chichi Collado M.D. on 08/13/2025 at 13:43
--- NOTE | 2025-08-13 12:04 | DI.CT.S_ITS ---
PROCEDURE: CT CERVICAL SPINE WO CON INDICATIONS: Trauma TECHNIQUE: Noncontrast 3 mm thick sections acquired from the skull base to the T4 level. Sagittal and coronal reformats were then constructed. For radiation dose reduction, the following was used: automated exposure control, adjustment of mA and/or kV according to patient size. COMPARISON: [facility], CT, CT CERVICAL SPINE WO CON, 12/05/2024, 9:03. FINDINGS: Image quality: Excellent. Bones: No fractures or dislocations. Visualized superior ribs are intact. Multilevel degenerative changes. Soft tissues: Prevertebral soft tissues are normal in thickness. No paravertebral hematomas. No apical pneumothoraces. IMPRESSION: No displaced fracture or traumatic subluxation. Dictated by: Chichi Collado M.D. on 08/13/2025 at 13:43 Approved by: Chichi Collado M.D. on 08/13/2025 at 13:44
--- NOTE | 2025-08-13 12:10 | ED_ITS ---
HPI - Fall General Chief Complaint: Trauma Stated Complaint: Chronic pain Time Seen by Provider: 08/13/25 12:03 Source: EMS Mode of arrival: EMS History of Present Illness HPI Narrative: Patient brought in by ambulance from home for abdominal pain lower back pain right hip pain. Patient is on blood thinner for atrial fibrillation. Patient is on morphine and Dilaudid at home for metastatic prostate cancer to the bone. Patient stop doing cancer treatment over a year ago. He wishes no longer to do treatment. Denies hitting his head. Has chronic neck pain, has chronic hip pain. No shortening or rotation of the lower extremities. He is awake alert orient x4. Log rolled patient and there is no skin injury to the back or bruising. No midline tenderness or step-off of the thoracic or cervical spine. Surgical scar seen on the lumbar spine Patient states he has been drinking fluids but poor appetite. No black or bloody stools. He states in the shower 2 days ago he felt his right hip unstable and caused him to fall down. Related Data Home Medications ?Medication ?Instructions ?Recorded ?Confirmed apixaban 2.5 mg tablet (Eliquis) 2.5 mg PO BID 4 08/15/25 nitroglycerin 0.4 mg sublingual 0.4 mg sublingual Q5-1 5M PRN Chest 03/29/24 08/15/25 tablet Pain ondansetron HCl 4 mg tablet 4 mg PO Q8H PRN Nausea And Vomiting 03/29/24 08/15/25 sennosides 8.6 mg tablet (senna) 8.6 mg PO DAILY const ipation 03/29/24 08/15/25 atorvastatin 80 mg tablet 80 mg PO ONCE PM 12/28/24 isosorbide mononitrate 30 mg 30 mg PO QAM 12/28/2401/04 tablet,extended release 24 hr tamsulosin 0.4 mg capsule 0.4 mg PO DAILY 12/28/2401/04 metoprolol succinate 100 mg 50 mg PO DAILY 05/02/25 tablet,extended release 24 hr Previous Rx's ?Medication ?Instructions ?Recorded promethazine 25 mg rectal 25 mg HI Q4-6H PRN nausea an d 11/18/20 suppository vomiting #12 ea morphine 10 mg/5 mL oral solution 10 mg (5 mL) PO Q6H PRN pain #100 08/07/24 mL scopolamine base 1 mg over 3 days 1 patch topical Q72H #10 ea 12/31/24 transdermal patch (Transderm-Scop) duloxetine 20 mg capsule,delayed 40 mg (2 x 20 mg) PO DAILY #180 02/01/25 release caps furosemide 20 mg tablet 20 mg PO DAILY #90 tabs 01/11 12/04 pantoprazole 40 mg tablet,delayed 40 mg PO QAM #90 tab s 04/10/25 release cyclobenzaprine 5 mg tablet 5 mg PO TID PRN Spasms #60 tabs 06/17/25 hydromorphone 4 mg tablet 4 mg PO Q4-6H PRN pain #60 t abs 07/01/25 (Dilaudid) naloxone 4 mg/actuation nasal 4 mg intranasal Q2M #2 e a 07/01/25 spray (Narcan) lidocaine 5 % topical patch 1 patch topical DAILY #15 ea 07/12/25 morphine 30 mg immediate release 15 mg (1/2 x 30 mg) P O Q4-6H PRN 07/12/25 tablet pain #75 tabs Allergies Allergy/AdvReac Type Severity Reaction Status Date / Time No Known Drug Allergies Allergy Verified 08/16/25 07:26 Review of Systems Review of Systems Narrative: GENERAL: Negative chills, fatigue, malaise, fever, sweats. 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 Acute upper gastrointestinal bleeding Malignant neoplasm of prostate metastatic to bone Hypertensive urgency Colitis Hematuria Uncomplicated opioid dependence Generalized anxiety disorder Cannabis abuse Prostate cancer (~05/2019) Paroxysmal A-fib Transaminitis Kidney stones Diverticulosis of large intestine (03/31/12) Chronic hepatitis Coronary artery disease involving [place] coronary artery of [place] heart without angina pectoris (~2006) Essential hypertension Mixed hyperlipidemia Surgical History H/O heart artery stent (~2006) Hx of inguinal hernia surgery (~03/07/14) Hx of inguinal hernia surgery (~09/20/08) Status post laminectomy History of angioplasty (~12/2006) Social History (System 08/16/25 @ 07:26 by Rae Anthony Ardon) marital status: unmarried,single number of children: 3 household members: none lives independently: Yes caregiver/support person: No housing: house pets and animals: No education level: high school occupational status: other 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 EYES: Pupils equal round ENT: Mucous membranes moist. NECK: Trachea midline. CARDIOVASCULAR: Regular rate and rhythm RESPIRATORY: Clear to auscultation. Breath sounds equal bilaterally. No wheezes, rales, or rhonchi. GASTROINTESTINAL: Abdomen soft, mild diffuse tenderness but no peritoneal signs no guarding or rebound. No CVA tenderness. BACK: No flank tenderness. No midline tenderness step-off cervicothoracic spine. No bruising or skin injury to the back. EXTREMITIES: No gross deformities. NEURO: AOx4. Clear speech SKIN: Warm and dry PSYCH: Not anxious, is cooperative Initial Vital Signs Initial Vital Signs: Vital Signs Pulse Rate 73 08/13/25 11:47 Pulse Oximetry 99 08/13/25 11:47 Course Orders Ordered: Discontinued Medications Hydromorphone HCl (Hydromorphone 1 Mg/Ml Syringe) 1 mg IV Q2HR PRN PRN Reason: Pain Last Admin: 08/13/25 14:33 Dose: 1 mg Documented By: Admin: 08/13/25 12:33 Dose: 1 mg Documented By: BZ Sodium Chloride (Normal Saline 0.9%) 500 mls @ 1,000 mls/hr IV BOLUS ONE Stop: 12/02/25 12:32 Last Infusion: 08/13/25 13:57 Dose: Infused Documented By: Admin: 08/13/25 12:30 Dose: 1,000 mls/hr Documented By: LAYLA Morphine Sulfate (Morphine 4 Mg/Ml Inj) 4 mg IV NOW ONE Stop: 08/13/25 12:04 Last Admin: 08/13/25 12:54 Dose: Not Given Documented By: SERGIO Ondansetron HCl (Ondansetron 4 Mg/2 Ml Inj) 4 mg IV NOW ONE Stop: 08/13/25 12:04 Last Admin: 08/13/25 12:33 Dose: 4 mg Documented By: LAYLA Vital Signs Vital signs: Vital Signs - 8 hr 08/13/25 11:47 08/13/25 11:52 08/13/25 11:52 Temperature 98.1 F Pulse Rate 73 75 72 Respiratory Rate 14 Blood Pressure 181/123 H Pulse Oximetry 99 99 98 Oxygen Delivery Method Room Air 08/13/25 11:52 08/13/25 12:00 08/13/25 12:00 Temperature Pulse Rate 74 Respiratory Rate Blood Pressure 181/123 H 184/116 H Pulse Oximetry 98 Oxygen Delivery Method 08/13/25 12:30 08/13/25 12:46 08/13/25 12:46 Temperature Pulse Rate 73 73 Respiratory Rate 15 11 L Blood Pressure 183/111 H Pulse Oximetry 98 98 Oxygen Delivery Method 08/13/25 13:00 08/13/25 13:01 08/13/25 13:01 Temperature Pulse Rate 78 84 Respiratory Rate 10 L 14 Blood Pressure 172/95 H Pulse Oximetry 98 98 Oxygen Delivery Method Room Air 08/13/25 13:38 08/13/25 13:39 08/13/25 13:39 Temperature Pulse Rate 72 73 Respiratory Rate 11 L 12 Blood Pressure 169/95 H Pulse Oximetry 98 98 Oxygen Delivery Method Room Air 08/13/25 14:00 08/13/25 14:00 Temperature Pulse Rate 78 Respiratory Rate 12 Blood Pressure 135/88 Pulse Oximetry 97 Oxygen Delivery Method MDM - Fall Lab Data 08/13/25 12:21 08/13/25 12:21 Labs: Lab Results 08/13/25 08/13/25 08/13/25 Range/Units 12:21 12:37 14:11 WBC 9.7 (4.5-11.0) X10^3/uL RBC 4.82 (4.5-5.9) X10^6/uL Hgb 14.9 (13.5-17.5) g/dL Hct 42.2 (41-53) % MCV 87.6 (80-100) fL MCH 30.9 (26-34) PG MCHC 35.3 (30-36) % RDW 13.7 (11.6-14.8) % Plt Count 151 (150-400) X10^3/uL Neut % (Auto) 78.3 H (50-75) % Lymph % (Auto) 8.3 L (25-40) % [place] % (Auto) 13.0 (3-14) % Eos % (Auto) 0.0 L (2-4) % Baso % (Auto) 0.4 (0-2) % Neut # (Auto) 7600 H (9492-9117) /uL Lymph # (Auto) 800 L (2798-4200) /uL [place] # (Auto) 1300 H (0-900) /uL Eos # (Auto) 0 (0-450) /uL Baso # (Auto) 0 (0-100) /uL PT 16.1 H (9.4-12.5) SECONDS INR 1.4 H (0.9-1.3) APTT 24 L (25.1-36.5) SECONDS Sodium 132 L (137-145) mmol/L Potassium 3.6 (3.4-5.1) mmol/L Chloride 96 L (98-107) mmol/L Carbon Dioxide 26 (22-32) mmol/L BUN 28 H (9-20) mg/dL Creatinine 1.10 (0.66-1.25) mg/dL Estimated GFR > 60 (>60) mL/min BUN/Creatinine Ratio 25.5 H (6-22) Glucose 244 H (70-99) mg/dL Lactate 2.3 H 1.7 (0.7-2.1) mmol/L Calcium 9.4 (8.4-10.2) mg/dL Total Bilirubin 1.8 H (0.2-1.3) mg/dL AST 75 H (17-59) IU/L ALT 51 H (<50) IU/L Alkaline Phosphatase 497 H (38-126) U/L Total Protein 8.5 H (6.3-8.2) g/dL Albumin 4.7 (3.5-5.0) g/dL Globulin 3.8 (1.7-4.1) g/dL Albumin/Globulin Ratio 1.2 (1.0-2.8) Urine RBC 0-1/hpf (0-5/HPF) Urine WBC 0-1/hpf (0-5/HPF) Ur Squamous Epith Cells 0-1 /hpf (0-5/HPF) Urine Bacteria Occasional (0-1) (None) Hyaline Casts 0-1/lpf (None) Ur Culture Indicated? Cult not indicated Vol Urine Centrifuged 10ml (spun) U Opiates 300ng/mL cut Positive H (Negative) Ur Oxycodone Screen Negative (Negative) Urine Methadone Screen Negative (Negative) Ur Barbiturates Screen Negative (Negative) U Tricyclic Antidepress Negative (Negative) Ur Phencyclidine Scrn Negative (Negative) Ur Amphetamines Screen Negative (Negative) U Methamphetamines Scrn Negative (Negative) Ur MDMA Scrn (Ecstasy) Negative (Negative) U Benzodiazepines Scrn Negative (Negative) Urine Cocaine Screen Negative (Negative) U Marijuana (THC) Screen Positive H (Negative) Urine pH Normal (Normal) Urine Specific [place] Normal (Normal) Ur Creatinine Normal (Normal) Imaging Data CT chest abdomen pelvis: Radiologist's Impression: [place] [address] CT Scan Report Signed Patient: Brennan Marmolejo MR#: [id number] : 1955 Acct:[id number] Age/Sex: 70 / M Date of Service: 08/13/25 Loc: ED Accession Number: [id number] Procedure: CT chest abd pel w con Ordering Provider: Florencio Jenkins MD PROCEDURE: CT CHEST ABD PEL W CON INDICATIONS: pain - fall TECHNIQUE: After the administration of intravenous contrast, 5 mm thick sections acquired from the lung apices to the symphysis. 2.5 mm thick coronal and sagittal reformats were acquired. Additional 7 mm thick coronal maximum intensity projection (MIP) reformats acquired through the lungs. Optional 10-minute delayed imaging may be performed from the kidneys to the bladder. For radiation dose reduction, the following was used: automated exposure control, adjustment of mA and/or kV according to patient size. COMPARISON: [facility], CT, CT ABDOMEN PELVIS W CON, 03/13/2025, 0:49. FINDINGS: Image quality: Diagnostic. CHEST: Lower Neck: No enlarged lymph nodes. Thyroid: No thyroid nodules which require sonographic evaluation. Axillae: No enlarged lymph nodes. Chest Wall: No subcutaneous gas. Lungs and Pleura: No pulmonary contusions or lacerations. No acute airspace opacities. No pneumothorax or hemothorax. Mediastinum: No mediastinal hematomas. Heart size is normal. Severe coronary artery calcifications including dense left main coronary artery calcifications. No pericardial effusion. Thoracic aorta and pulmonary arteries demonstrate normal size and enhancement. No mediastinal or hilar adenopathy. Esophagus is normal in caliber. No hiatal hernia. ABDOMEN: Liver: No lacerations. Cirrhotic change in the liver. No focal liver mass identified. Gallbladder: No radiopaque gallstones or wall thickening. Biliary ducts: No biliary dilation. Pancreas: Homogenous enhancement. Spleen: Homogenous enhancement without laceration or hematoma. Adrenal Glands: Symmetric enhancement. Kidneys and Ureters: Symmetric enhancement. No hydronephrosis. No solid mass. No complex renal cystic lesion which requires follow up. Stomach and Bowel: Normal colonic caliber, without significant wall thickening. Diverticulosis. Peritoneum: No abnormal intraperitoneal fluid. No free air. Ventral Wall: No hernia. Abdominal Nodes: No retroperitoneal or mesenteric adenopathy by size criteria. Vessels: Aorta and inferior vena cava are normal in size. PELVIS: Pelvic Organs: Prostate implant seeds.. Bladder: Normal thickness. Pelvic Nodes: No enlarged lymph nodes. Miscellaneous: No inguinal hernias are seen. Bones: Pelvic ring and hip joints appear intact. No displaced rib fractures. Old healed left posterior 9th and 10th rib fractures. Sclerotic metastatic disease again noted involving the right baron sacrum and medial right iliac bone and L2 vertebral body. Question development of a pathologic right baron sacral sacral insufficiency fracture. IMPRESSION: 1. Prostate carcinoma with known bony metastatic disease. 2. Suspect development of a pathologic right sacral insufficiency fracture involving bone with metastatic disease. This is of uncertain chronicity relative to the acute traumatic event. 3. No other potentially significant sequelae of acute trauma in the chest, abdomen, and pelvis. 4. Severe coronary artery calcifications including left main coronary artery calcifications. 5. Cirrhosis. Dictated by: Esa Frost M.D. on 08/13/2025 at 13:46 Approved by: Esa Frost M.D. on 08/13/2025 at 13:56 CT scan - head: Radiologist's Impression: [address] [address] [address] Scan Report Signed Patient: Brennan Marmolejo MR#: [id number] : 1955 Acct:[id number] Age/Sex: 70 / M Date of Service: 08/13/25 Loc: ED Accession Number: [id number] Procedure: CT head/brain wo con Ordering Provider: Florencio Jenkins MD PROCEDURE: CT HEAD/BRAIN WO CON INDICATIONS: Trauma TECHNIQUE: Noncontrast 4.5 mm thick angled axial sections acquired from the foramen magnum to the vertex, with coronal and sagittal reformats. For radiation dose reduction, the following was used: automated exposure control, adjustment of mA and/or kV according to patient size. COMPARISON: [facility], CT, CT HEAD/BRAIN WO CON, 12/05/2024, 9:03. FINDINGS: Image quality: Diagnostic. CSF spaces: Basal cisterns are patent. No extra-axial fluid collections. The ventricles are symmetric in size and shape. Brain: No intracranial bleeds or mass effect. There is cerebral volume loss, with resultant ventricular and sulcal prominence. There are periventricular and deep white matter chronic small vessel ischemic changes. There is intracranial internal carotid artery atherosclerosis. Skull and face: Calvarium and visualized facial bones appear intact, without suspicious lesions. Sinuses: Visualized sinuses and mastoids are clear. IMPRESSION: 1. No acute intracranial process. 2. Mild to moderate atrophy and chronic microvascular ischemic changes. Dictated by: Chichi Collado M.D. on 08/13/2025 at 13:42 Approved by: Chichi Collado M.D. on 08/13/2025 at 13:43 CT - cervical spine: Radiologist's Impression: [address] [address] [address] Scan Report Signed Patient: Brennan Marmolejo MR#: [id number] : 1955 Acct:[id number] Age/Sex: 70 / M Date of Service: 08/13/25 Loc: ED Accession Number: [id number] Procedure: CT cervical spine wo con Ordering Provider: Florencio Jenkins MD PROCEDURE: CT CERVICAL SPINE WO CON INDICATIONS: Trauma TECHNIQUE: Noncontrast 3 mm thick sections acquired from the skull base to the T4 level. Sagittal and coronal reformats were then constructed. For radiation dose reduction, the following was used: automated exposure control, adjustment of mA and/or kV according to patient size. COMPARISON: [facility], CT, CT CERVICAL SPINE WO CON, 12/05/2024, 9:03. FINDINGS: Image quality: Excellent. Bones: No fractures or dislocations. Visualized superior ribs are intact. Multilevel degenerative changes. Soft tissues: Prevertebral soft tissues are normal in thickness. No paravertebral hematomas. No apical pneumothoraces. IMPRESSION: No displaced fracture or traumatic subluxation. Dictated by: Chichi Collado M.D. on 08/13/2025 at 13:43 Approved by: Chichi Collado M.D. on 08/13/2025 at 13:44 MDM Narrative Medical decision making narrative: Patient brought in by ambulance from home for abdominal pain lower back pain right hip pain. Patient is on blood thinner for atrial fibrillation. Patient is on morphine and Dilaudid at home for metastatic prostate cancer to the bone. Patient stop doing cancer treatment over a year ago. He wishes no longer to do treatment. Denies hitting his head. Has chronic neck pain, has chronic hip pain. No shortening or rotation of the lower extremities. He is awake alert orient x4. Log rolled patient and there is no skin injury to the back or bruising. No midline tenderness or step-off of the thoracic or cervical spine. Surgical scar seen on the lumbar spine. Patient states he has been drinking fluids but poor appetite. No black or bloody stools. He states in the shower 2 days ago he felt his right hip unstable and caused him to fall down. MDM After history and exam, Dilaudid Zofran normal saline CBC CMP PT INR PTT troponin EKG CT head cervical spine chest abdomen pelvis Differential considered: Includes but not limited to Medical records reviewed: Lab Test results independently reviewed as above. Pertinent findings: WBC 9.7 hemoglobin 14.9 INR 1.4 sodium 132 potassium 3.6 BUN 28 creatinine 1.1 GFR greater than 60 lactic acid 1.7 Independently reviewed EKG sinus rhythm rate 76 Imaging studies independently reviewed: CT head cervical spine no acute finding. CT chest abdomen pelvis known prostate carcinoma with metastasis. Likely pathologic right sacral insufficiency fracture. Consultations: None indicated at this time Re-evaluations: 2:51 p.m.. at bedside. Reviewed results with them. Again, he fell off balance with his right hip and twisted to the left and he did land on his hands and knees. Did not strike his head. Denies any head neck hand knee pain. Diagnosis at this time is multiple contusions. Sacral finding on CT likely not related to trauma. He did not land on his buttocks. Reviewed with them sacral finding likely related to the cancer. Possible pathological fracture. However no intervention for this finding. Discussion: IV contrast used for CT imaging. Appropriate for discharge home. Exam is reassuring imaging reassuring blood work reassuring. Pain is controlled. Return precautions reviewed with patient and family. They desire discharge home. Diagnosis: Multiple contusion, chronic pain Discharge Plan Departure Patient Disposition: Home Clinical Impression: Multiple contusions Instructions: DI for Contusion, DI for Trauma Activity Restrictions/Additional Instructions: Your exam and laboratory studies imaging studies are reassuring. Please see your provider this week for re-evaluation. Continue home medications. Return if worse if any questions or concerns. Prescriptions: No Action morphine 10 mg/5 mL solution 10 mg PO Q6H PRN (Reason: pain) Qty: 100 0RF pantoprazole 40 mg tablet,delayed release (DR/EC) 40 mg PO QAM Qty: 90 3RF cyclobenzaprine 5 mg tablet 5 mg PO TID PRN (Reason: Spasms) Qty: 60 0RF Eliquis 2.5 mg tablet 2.5 mg PO BID sennosides [senna] 8.6 mg tablet 8.6 mg PO DAILY nitroglycerin 0.4 mg tablet, sublingual 0.4 mg sublingual Q5-15M PRN (Reason: Chest Pain) ondansetron HCl 4 mg tablet 4 mg PO Q8H PRN (Reason: Nausea And Vomiting) furosemide 20 mg tablet 20 mg PO DAILY Qty: 90 3RF duloxetine 20 mg capsule,delayed release(DR/EC) 40 mg PO DAILY Qty: 180 3RF metoprolol succinate 100 mg tablet extended release 24 hr 50 mg PO DAILY lidocaine 5 % adhesive patch,medicated 1 patch topical DAILY Qty: 15 1RF Rx Instructions: leave on most painful area for up to 12 hrs morphine 30 mg tablet 15 mg PO Q4-6H MDD 90 mg PRN (Reason: pain) Qty: 75 0RF atorvastatin 80 mg tablet 80 mg PO ONCE PM isosorbide mononitrate 30 mg tablet extended release 24 hr 30 mg PO QAM tamsulosin 0.4 mg capsule 0.4 mg PO DAILY scopolamine base [Transderm-Scop] 1 mg over 3 days Patch 3 Day 1 patch topical Q72H Qty: 10 0RF hydromorphone [Dilaudid] 4 mg tablet 4 mg PO Q4-6H PRN (Reason: pain) Qty: 60 0RF naloxone [Narcan] 4 mg/actuation spray,non-aerosol 4 mg intranasal Q2M Qty: 2 0RF Rx Instructions: spray 1 dose into ONE nostril; alternate nostrils w each dose until help arrives promethazine 25 mg suppository 25 mg HI Q4-6H PRN (Reason: nausea and vomiting) Qty: 12 0RF Stand Alone Forms: Patient Portal/API
[2025-08-13 12:27] LABS: Add Manual Diff / Slide Review NO; Hematocrit 42.2 % (41-53); Hemoglobin 14.9 g/dL (13.5-17.5); Lymphocytes Absolute Auto 800 /uL (1100-4500); Mean Corpuscular HGB Conc 35.3 % (30-36); Mean Corpuscular Hemoglobin 30.9 PG (26-34); Mean Corpuscular Volume 87.6 fL (80-100); Platelet Count 151 X10^3/uL (150-400)
[2025-08-13] MEDS: SODIUM CHLORIDE 0.9% 500 ML 1000 ML IV (12:30)
--- NOTE | 2025-08-13 12:32 | EKG_ITS ---
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
[2025-08-13] MEDS: ONDANSETRON 4 MG/2 ML INJ IV (12:33)
[2025-08-13 12:34] LABS: INR 1.4 (0.9-1.3); Prothrombin Time 16.1 SECONDS (9.4-12.5)
[2025-08-13 12:37] LABS: PTT Partial Thromboplastin Tim 24 SECONDS (25.1-36.5)
[2025-08-13 12:38] LABS: Lactate (Lactic Acid) 2.3 mmol/L (0.7-2.1)
[2025-08-13 12:39] LABS: Alanine Aminotransferase 51 IU/L (<50); Albumin 4.7 g/dL (3.5-5.0); Albumin Globulin Ratio 1.2 (1.0-2.8); Alkaline Phosphatase 497 U/L (38-126); Blood Urea Nitrogen 28 mg/dL (9-20); Calcium 9.4 mg/dL (8.4-10.2); Carbon Dioxide 26 mmol/L (22-32); Chloride 96 mmol/L (98-107); Estimated Glomerular Filt Rate > 60 mL/min (>60); Globulin 3.8 g/dL (1.7-4.1); Glucose 244 mg/dL (70-99); HEMOLYSIS 20 (0-50); Potassium 3.6 mmol/L (3.4-5.1); Sodium 132 mmol/L (137-145); Total Protein 8.5 g/dL (6.3-8.2)
[2025-08-13 12:47] LABS: Ur Specific Gravity Normal (Normal)
[2025-08-13 12:48] LABS: UR Morphine/Opiate cutoff 300 Positive (Negative); Urine MDMA Negative (Negative); Urine Methamphetamines Negative (Negative); Urine Tetrahydrocannabinol Positive (Negative); Urine Tricyclic Antidepressant Negative (Negative)
[2025-08-13 12:51] LABS: Culture Indicated Urine Cult Not Indicated
--- NOTE | 2025-08-13 13:24 | PC.NURSE ---
Patient LEFT AC IV causes patient a little bit of pain. Patient has had normal saline running through IV. Normal saline stopped. IV removed. Provider Alice made aware. Site wrapped.
[2025-08-13 13:59] LABS: Reflexed Lactate in 2 Hours Y
[2025-08-13 14:27] LABS: Lactate 2HR (Lactic Acid Rflx) 1.7 mmol/L (0.7-2.1)
== END 2025-08-13 15:13 | disposition home or self-care (01) ==
PROVIDERS: Emergency Provider Emergency Medicine
DX: M25.551 Pain in right hip (principal); M54.50 Low back pain, unspecified; R10.9 Unspecified abdominal pain; T14.8XXA Other injury of unspecified body region, initial encounter; I48.91 Unspecified atrial fibrillation; C61 Malignant neoplasm of prostate; C79.51 Secondary malignant neoplasm of bone; W18.2XXA Fall in (into) shower or empty bathtub, initial encounter; Z79.01 Long term (current) use of anticoagulants
CPT/HCPCS: 36415; 70450; 71260; 72125; 74177; 80053; 80305; 81015; 83605; 85025; 85610; 85730; 93005; 96374; 96375; 99284; J1171; J2405; J7040

== ENCOUNTER 2025-08-15 11:01 | Inpatient (IN) | payer MEDICARE, OTHER, SELFPAY ==
[2024-12-28 19:31] VITALS: BMI 20.5
[2025-08-15] VITALS (9 sets, daily range): BP systolic 115–148; BP diastolic 77–82; PULSE 78–110; RESP 12–18; TEMP 36.6–36.7; O2SAT 94–98; BMI 21.1; BMI 19.3
--- NOTE | 2025-08-15 11:39 | DI.RAD.S_ITS ---
PROCEDURE: XR CHEST 1V INDICATIONS: Possible stroke TECHNIQUE: One view of the chest was acquired. COMPARISON: [facility], , XR CHEST 1V, 03/15/2025, 1:39. [facility], CR, XR CHEST 1V, 03/14/2025, 9:38. FINDINGS: Surgical changes and devices: None. Lungs and pleura: Lungs are clear. No pleural effusions or pneumothorax. Mediastinum: Mediastinal contours appear normal. Heart size is normal. Bones and chest wall: No suspicious bony lesions. Overlying soft tissues appear unremarkable. IMPRESSION: No acute cardiopulmonary abnormality is seen. Approved by: Ish Barreto M.D. on 08/15/2025 at 12:39
--- NOTE | 2025-08-15 11:39 | DI.CT.S_ITS ---
PROCEDURE: CT HEAD/BRAIN WO CON INDICATIONS: Positive BE-FAST, Stroke symptoms TECHNIQUE: Noncontrast 4.5 mm thick angled axial sections acquired from the foramen magnum to the vertex, with coronal and sagittal reformats. For radiation dose reduction, the following was used: automated exposure control, adjustment of mA and/or kV according to patient size. COMPARISON: [facility], CT, CT HEAD/BRAIN WO CON, 08/13/2025, 13:25. [facility], CT, CT HEAD/BRAIN WO CON, 12/05/2024, 9:03. FINDINGS: Image quality: Diagnostic. CSF spaces: Basal cisterns are patent. No extra-axial fluid collections. The ventricles are symmetric in size and shape. Brain: Hypodensity in the right frontal centrum semiovale (11/04) is new when compared to the CT from 08/13/2025, suspicious for small evolving infarct. No hemorrhagic conversion or significant mass effect. There is cerebral volume loss, with resultant ventricular and sulcal prominence. There are periventricular and deep white matter chronic small vessel ischemic changes. Skull and face: Calvarium and visualized facial bones appear intact, without suspicious lesions. Sinuses: Visualized sinuses and mastoids are clear. IMPRESSION: New small hypodensity in the right posterior frontal centrum semiovale is suspicious for an evolving infarct. No mass effect or hemorrhagic conversion. MRI could be performed for further evaluation if indicated clinically. Approved by: Ish Barreto M.D. on 08/15/2025 at 14:10
--- NOTE | 2025-08-15 11:39 | DI.CT.S_ITS ---
PROCEDURE: CT ANGIO HEAD AND NECK INDICATIONS: left wrist drop x 2 days TECHNIQUE: After the administration of intravenous contrast, 1 mm thick sections acquired from the aortic arch through the [place]. 3-dimensional iicbbuw-pmptdhdrt-mezhjqiwqf (MIP) and/or volume rendering reformats were acquired of the central intracranial vasculature and neck separately. For radiation dose reduction, the following was used: automated exposure control, adjustment of mA and/or kV according to patient size. COMPARISON: [facility], CT, CT HEAD/BRAIN WO CON, 08/13/2025, 13:25. [facility], CT, CT HEAD/BRAIN WO CON, 08/15/2025, 13:45. FINDINGS: Image quality: Diagnostic. Cerebral CT Angiogram: Internal carotid arteries: No acute findings. Intracranial ICA demonstrate atherosclerotic calcifications without significant stenosis. No occlusion. No aneurysm. Anterior cerebral arteries: Unremarkable. No significant stenosis. No occlusion. No aneurysm. Middle cerebral arteries: Unremarkable. No significant stenosis. No occlusion. No aneurysm. Posterior cerebral arteries: Unremarkable. No significant stenosis. No occlusion. No aneurysm. Basilar artery: Unremarkable. No significant stenosis. No occlusion. No aneurysm. Vertebral arteries: Unremarkable as visualized. Dural venous sinuses: Unremarkable given phase of enhancement. Other: Please see the separately dictated report from the noncontrast CT of the head performed at the same time. No abnormal intracranial arterial-phase enhancement. Neck CT Angiogram: Internal carotid arteries: Atherosclerotic calcification at the left carotid bifurcation resulting in less than 50% stenosis. No significant stenosis at the right carotid bifurcation. No significant stenosis. No dissection or occlusion. Common carotid arteries: Unremarkable. No significant stenosis. No dissection or occlusion. External carotid arteries: Unremarkable. No occlusion. Vertebral arteries: Atherosclerotic calcifications are seen at the vertebral artery origin without significant stenosis. No significant stenosis. No dissection or occlusion. Aortic Arch and Mediastinum: There is a common origin of the left vertebral artery and left subclavian artery at the aortic arch, a normal anatomic variant. Partially visualized aortic arch unremarkable without evidence of aneurysm. Other: Mild emphysematous changes in the lung apices. Multilevel degenerative changes in the spine. IMPRESSION: No significant intracranial arterial abnormality is seen. Less than 50% stenosis of the left internal carotid artery at the carotid bifurcation. Any quantitative measurements of stenosis were performed using NASCET criteria. Approved by: Ish Barreto M.D. on 08/15/2025 at 14:44
--- NOTE | 2025-08-15 11:44 | DI.CT.S_ITS ---
PROCEDURE: CT CERVICAL SPINE WO CON INDICATIONS: fall 3 days ago, wrist drop TECHNIQUE: Noncontrast 3 mm thick sections acquired from the skull base to the T4 level. Sagittal and coronal reformats were then constructed. For radiation dose reduction, the following was used: automated exposure control, adjustment of mA and/or kV according to patient size. COMPARISON: [facility], CT, CT CERVICAL SPINE WO CON, 08/13/2025, 13:25. [facility], CT, CT CERVICAL SPINE WO CON, 12/05/2024, 9:03. FINDINGS: Image quality: Excellent. Bones: No acute fractures or dislocations. Visualized superior ribs are intact. Multilevel disc space narrowing and degenerative endplate changes. Multilevel uncovertebral joint and facet hypertrophy. Soft tissues: Prevertebral soft tissues are normal in thickness. No paravertebral hematomas. No apical pneumothoraces. IMPRESSION: No acute displaced fracture or traumatic subluxation. Approved by: Ish Barreto M.D. on 08/15/2025 at 14:18
--- NOTE | 2025-08-15 11:44 | DI.RAD.S_ITS ---
PROCEDURE: XR WRIST LT MIN 3V INDICATIONS: fall few days ago, wrist drop and pain TECHNIQUE: 4 views of the wrist were acquired. COMPARISON: None. FINDINGS: Bones: No acute fractures or dislocations. No suspicious bony lesions. Soft tissues: No suspicious soft tissue calcifications. IMPRESSION: No acute osseous abnormality. If there is continued clinical concern or persistent symptoms, repeat radiographs or cross-sectional imaging (e.g. CT, MRI) may be helpful for further evaluation. Approved by: Ish Barreto M.D. on 08/15/2025 at 12:40
--- NOTE | 2025-08-15 11:49 | ED.NEUROSD ---
HPI - Neuro Symptoms/Deficit General Chief Complaint: Extremity Injury, Upper Stated Complaint: left hand weakness 2 days Time Seen by Provider: 08/15/25 11:02 Source: patient Mode of arrival: EMS History of Present Illness HPI Narrative: Mr. Jaleel Bryan is a pleasant 70-year-old male with a past medical history of metastatic prostate and colon cancer not undergoing active treatment, AFib on Eliquis, CAD s/p stents, CHF, chronic hepatitis, chronic pain who presents to the emergency department for left wrist weakness x 2-3 days. Patient states that he was at this emergency department on Tuesday after having a mechanical fall onto his hands and knees. States that as he was leaving the emergency department he noticed his left wrist and left hand were not working, he was not able to grasp his walker. His wrist has been persistently weak since then. He has difficulty extending the wrist and using the left hand fingers. He denies any pain of the neck, shoulder elbow. He still is able to abduct the left shoulder and extend the left elbow. He denies loss of consciousness, visual disturbance, leg weakness, fevers, chills. States that he is dealing with some chronic chest pain and shortness of breath because of his AFib. Denies vomiting diarrhea or dysuria. He is here with his medical power of patent prosecution attorney and spouse/significant other who contributes to the history. On Anticoagulants: Yes Related Data Home Medications ?Medication ?Instructions ?Recorded ?Confirmed apixaban 2.5 mg tablet (Eliquis) 2.5 mg PO BID 03/29/24 07/12/25 nitroglycerin 0.4 mg sublingual 0.4 mg sublingual Q5-15M PRN Chest 03/29/24 07/12/25 tablet Pain ondansetron HCl 4 mg tablet 4 mg PO Q8H PRN Nausea And Vomiting 03/29/24 07/12/25 sennosides 8.6 mg tablet (senna) 8.6 mg PO DAILY constipation 03/29/24 07/12/25 atorvastatin 80 mg tablet 80 mg PO ONCE PM 12/28/24 07/12/25 isosorbide mononitrate 30 mg 30 mg PO QAM 12/28/24 07/12/25 tablet,extended release 24 hr methocarbamol 500 mg tablet 500 mg PO 3XD 12/28/24 07/12/25 tamsulosin 0.4 mg capsule 0.4 mg PO DAILY 12/28/24 07/12/25 metoprolol succinate 100 mg 50 mg PO DAILY 05/02/25 07/12/25 tablet,extended release 24 hr Previous Rx's ?Medication ?Instructions ?Recorded promethazine 25 mg rectal 25 mg UT Q4-6H PRN nausea and 11/18/20 suppository vomiting #12 ea morphine 10 mg/5 mL oral solution 10 mg (5 mL) PO Q6H PRN pain #100 08/07/24 mL scopolamine base 1 mg over 3 days 1 patch topical Q72H #10 ea 12/31/24 transdermal patch (Transderm-Scop) duloxetine 20 mg capsule,delayed 40 mg (2 x 20 mg) PO DAILY #180 02/01/25 release caps furosemide 20 mg tablet 20 mg PO DAILY #90 tabs 02/01/25 pantoprazole 40 mg tablet,delayed 40 mg PO QAM #90 tabs 04/10/25 release cyclobenzaprine 5 mg tablet 5 mg PO TID PRN Spasms #60 tabs 06/17/25 hydromorphone 4 mg tablet 4 mg PO Q4-6H PRN pain #60 tabs 07/01/25 (Dilaudid) naloxone 4 mg/actuation nasal 4 mg intranasal Q2M #2 ea 07/01/25 spray (Narcan) lidocaine 5 % topical patch 1 patch topical DAILY #15 ea 07/12/25 morphine 30 mg immediate release 15 mg (1/2 x 30 mg) PO Q4-6H PRN 07/12/25 tablet pain #75 tabs Allergies Allergy/AdvReac Type Severity Reaction Status Date / Time No Known Drug Allergies Allergy Verified 08/15/25 11:33 Review of Systems Review of Systems ROS Unobtainable: All systems reviewed & are unremarkable except as noted in HPI and below Hematologic/Lymphatic On Anticoagulants: Yes Patient History Medical History Current use of prison anticoagulation Acute upper gastrointestinal bleeding Malignant neoplasm of prostate metastatic to bone Hypertensive urgency Colitis Hematuria Uncomplicated opioid dependence Generalized anxiety disorder Cannabis abuse Prostate cancer (~05/2019) Paroxysmal A-fib Transaminitis Kidney stones Diverticulosis of large intestine (03/31/12) Chronic hepatitis Coronary artery disease involving soboba coronary artery of soboba heart without angina pectoris (~2006) Essential hypertension Mixed hyperlipidemia Surgical History H/O heart artery stent (~2006) Hx of inguinal hernia surgery (~03/07/14) Hx of inguinal hernia surgery (~09/20/08) Status post laminectomy History of angioplasty (~12/2006) Social History marital status: unmarried,single number of children: 3 household members: caregiver lives independently: Yes caregiver/support person: No housing: house pets and animals: No education level: high school occupational status: other 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/christianity: None leisure activities: music, fishing and other Tobacco: How many years used: 56 Smokeless tobacco user: other quit status: has quit before second hand exposure: Yes (On farmland/Boat.) alcohol intake: former substance use type: does not use and marijuana eating out: rarely or never Type(s) of exercise: normal ROM and activity and additional alcohol intake frequency: 0-2 drinks per day Alcohol type: beer Exam Narrative Exam Narrative: GENERAL: 70 year old patient appears stated age. Chronically ill-appearing patient in no acute distress. HEAD: Atraumatic. Normocephalic. EYES: PERRL. Extraocular motions intact. No scleral icterus. No injection or drainage. NECK: Trachea midline. Cervical ROM intact. CARDIOVASCULAR: Regular rate and rhythm. RESPIRATORY: ?Nonlabored respirations. ?Speaking in clear, full sentences. NEURO: AOx3. ?Clear speech. Left wrist drop present. He is able to independently extend the wrist but not against resistance. No rubber gasket inspector trimmer strength of the left hand. He is able to abduct the left shoulder and extend the left elbow. No facial asymmetry. Sensation intact but decreased on left hand. SKIN: No rash or erythema of visible areas. Initial Vital Signs Initial Vital Signs: Vital Signs Temperature 98.1 F 08/15/25 11:33 Pulse Rate 110 H 08/15/25 11:33 Respiratory Rate 16 08/15/25 11:33 Blood Pressure 116/77 08/15/25 11:33 Pulse Oximetry 97 08/15/25 11:33 Oxygen Delivery Method Room Air 08/15/25 11:33 Scores NIH Stroke Scale Level of Conciousness: Alert, keenly responsive Ask month/age: Answers both questions correctly. Open/close eyes, close hand: Performs both tasks correctly Best gaze horizontal: Normal Visual caballero: No visual loss Facial palsy: Normal symetrical movement Left arm drift: No drift for full 10 sec (LEFT WRIST is however weak) Right arm drift: No drift for full 10 sec Left leg drift: No drift for full 5 sec Right leg drift: No drift for full 5 sec Limb ataxia: Absent Sensory on face/arms/legs: Mild to moderate sensory loss, can tell touch (LEFT HAND) Best language: No aphasia, normal Dysarthria: Normal Extinction or inattention: No abnormality Total NIH Stroke scale score: 1 Course Orders Ordered: ED Orders 08/15/25 11:39 CT angio head and neck Stat CT head/brain wo con Stat XR chest 1V Stat EKG-12 Lead Stat 08/15/25 11:44 CT cervical spine wo con Stat XR wrist LT min 3V Stat 08/15/25 13:23 Complete Blood Count AUTO DIFF Stat Comprehensive Metabolic Panel Stat PTT Partial Thromboplastin Jeff Stat Prothrombin Time INR Stat Troponin & CK Cardiac Panel Stat 08/15/25 14:28 MR head/brain wo con Stat 08/15/25 14:46 Urine Drug Screen, Rapid Stat 08/15/25 15:34 Magnesium Stat Troponin I Stat 08/15/25 15:44 Urine Microscopic Stat POTASSIUM CHLORIDE IN WATER (Potassium Cl 10 Meq/100 Ml Marisol) 10 meq in 100 mls @ 100 mls/hr IV Q1H KAITLIN Stop: 08/15/25 20:14 Last Admin: 08/15/25 17:51 Dose: 100 mls/hr Morphine Sulfate (Morphine Ir 15 Mg Tablet) 15 mg PO Q6H PRN PRN Reason: Pain, Severe (7-10) Last Admin: 08/15/25 14:46 Dose: 15 mg Documented By: KIRK Ondansetron HCl (Ondansetron 4 Mg/2 Ml Inj) 4 mg IV NOW PRN PRN Reason: Nausea And Vomiting Ondansetron HCl (Ondansetron 4 Mg Odt) 4 mg PO NOW PRN PRN Reason: Nausea And Vomiting Discontinued Medications Aspirin (Aspirin Ec 81 Mg Tablet) 81 mg PO NOW ONE Stop: 08/15/25 15:17 Last Admin: 08/15/25 15:41 Dose: 81 mg Documented By: KIRK Clopidogrel Bisulfate (Clopidogrel 75 Mg Tablet) 75 mg PO NOW ONE Stop: 08/15/25 15:17 Last Admin: 08/15/25 15:41 Dose: 75 mg Documented By: KIRK Hydromorphone HCl (Hydromorphone Hcl 0.5 Mg/0.5 Ml Syringe) 0.5 mg IV NOW ONE Stop: 08/15/25 16:21 Last Admin: 08/15/25 16:27 Dose: 0.5 mg Sodium Chloride (Normal Saline 0.9%) 500 mls @ 1,000 mls/hr IV BOLUS ONE Stop: 08/15/25 15:06 Last Infusion: 08/15/25 15:41 Dose: Infused Documented By: Admin: 08/15/25 14:41 Dose: 1,000 mls/hr Documented By: KIRK Morphine Sulfate (Morphine Ir 30 Mg Tablet) 15 mg PO Q6HR PRN PRN Reason: Pain, Severe (7-10) Vital Signs Vital signs: Vital Signs - 8 hr 08/15/25 11:33 08/15/25 11:49 08/15/25 11:50 Temperature 98.1 F Pulse Rate 110 H 100 H 96 H Respiratory Rate 16 13 Blood Pressure 116/77 Pulse Oximetry 97 97 Oxygen Delivery Method Room Air 08/15/25 11:50 08/15/25 12:00 08/15/25 12:30 Temperature Pulse Rate 95 H 96 H Respiratory Rate 13 12 Blood Pressure 148/80 H Pulse Oximetry 94 94 Oxygen Delivery Method 08/15/25 13:00 08/15/25 13:30 Temperature Pulse Rate 97 H 94 H Respiratory Rate 12 13 Blood Pressure Pulse Oximetry 95 95 Oxygen Delivery Method MDM - Neuro Symptoms/Deficit Medical Records Attestation: I reviewed the patient's medical records. Lab Data 08/15/25 13:23 08/15/25 13:23 Labs: Lab Results 08/15/25 08/15/25 08/15/25 Range/Units 13:23 14:46 15:34 WBC 6.3 (4.5-11.0) X10^3/uL RBC 4.29 L (4.5-5.9) X10^6/uL Hgb 13.3 L (13.5-17.5) g/dL Hct 37.1 L (41-53) % MCV 86.5 (80-100) fL MCH 30.9 (26-34) PG MCHC 35.8 (30-36) % RDW 13.6 (11.6-14.8) % Plt Count 101 L (150-400) X10^3/uL Neut % (Auto) 63.1 (50-75) % Lymph % (Auto) 15.5 L (25-40) % [place] % (Auto) 20.7 H (3-14) % Eos % (Auto) 0.2 L (2-4) % Baso % (Auto) 0.5 (0-2) % Neut # (Auto) 4000 (8179-8404) /uL Lymph # (Auto) 1000 L (2716-8090) /uL [place] # (Auto) 1300 H (0-900) /uL Eos # (Auto) 0 (0-450) /uL Baso # (Auto) 0 (0-100) /uL PT 15.4 H (9.4-12.5) SECONDS INR 1.4 H (0.9-1.3) APTT 26 (25.1-36.5) SECONDS Sodium 130 L (137-145) mmol/L Potassium 3.1 L (3.4-5.1) mmol/L Chloride 94 L (98-107) mmol/L Carbon Dioxide 29 (22-32) mmol/L BUN 23 H (9-20) mg/dL Creatinine 1.11 (0.66-1.25) mg/dL Estimated GFR > 60 (>60) mL/min BUN/Creatinine Ratio 20.7 (6-22) Glucose 183 H (70-99) mg/dL Calcium 8.8 (8.4-10.2) mg/dL Magnesium 1.6 (1.6-2.3) mg/dL Total Bilirubin 1.4 H (0.2-1.3) mg/dL AST 66 H (17-59) IU/L ALT 57 H (<50) IU/L Alkaline Phosphatase 560 H (38-126) U/L Total Creatine Kinase 34 L (55-170) U/L Troponin I 0.304 H* 0.303 H* (0.01-0.034) ng/mL Total Protein 7.4 (6.3-8.2) g/dL Albumin 4.1 (3.5-5.0) g/dL Globulin 3.3 (1.7-4.1) g/dL Albumin/Globulin Ratio 1.2 (1.0-2.8) U Opiates 300ng/mL cut Positive H (Negative) Ur Oxycodone Screen Negative (Negative) Urine Methadone Screen Negative (Negative) Ur Barbiturates Screen Negative (Negative) U Tricyclic Antidepress Negative (Negative) Ur Phencyclidine Scrn Negative (Negative) Ur Amphetamines Screen Negative (Negative) U Methamphetamines Scrn Negative (Negative) Ur MDMA Scrn (Ecstasy) Negative (Negative) U Benzodiazepines Scrn Negative (Negative) Urine Cocaine Screen Negative (Negative) U Marijuana (THC) Screen Positive H (Negative) Urine pH Normal (Normal) Urine Specific [place] Normal (Normal) Ur Creatinine Normal (Normal) Urine Dip Bedside Urine Glucose Negative Bedside Urine Bilirubin - Negative Bedside Urine Ketone - Negative Urine Specific [place] 1.010 Bedside Urine Occult Blood - Negative Bedside Urine pH 6.0 Bedside Urine Protein +/- 15 Bedside Urine Urobilinogen 1+ 2mg Bedside Urine Nitrite - Negative Bedside Urine Leukocytes - Negative Esterase Imaging Data Chest x-ray: Radiologist's Impression: PROCEDURE: XR CHEST 1V INDICATIONS: Possible stroke TECHNIQUE: One view of the chest was acquired. COMPARISON: [facility], CR, XR CHEST 1V, 03/15/2025, 1:39. [facility], CR, XR CHEST 1V, 03/14/2025, 9:38. FINDINGS: Surgical changes and devices: None. Lungs and pleura: Lungs are clear. No pleural effusions or pneumothorax. Mediastinum: Mediastinal contours appear normal. Heart size is normal. Bones and chest wall: No suspicious bony lesions. Overlying soft tissues appear unremarkable. IMPRESSION: No acute cardiopulmonary abnormality is seen. Approved by: Ish Barreto M.D. on 08/15/2025 at 12:39 CT scan - head: Radiologist's Impression: PROCEDURE: CT HEAD/BRAIN WO CON INDICATIONS: Positive BE-FAST, Stroke symptoms TECHNIQUE: Noncontrast 4.5 mm thick angled axial sections acquired from the foramen magnum to the vertex, with coronal and sagittal reformats. For radiation dose reduction, the following was used: automated exposure control, adjustment of mA and/or kV according to patient size. COMPARISON: [facility], CT, CT HEAD/BRAIN WO CON, 08/13/2025, 13:25. [facility], CT, CT HEAD/BRAIN WO CON, 12/05/2024, 9:03. FINDINGS: Image quality: Diagnostic. CSF spaces: Basal cisterns are patent. No extra-axial fluid collections. The ventricles are symmetric in size and shape. Brain: Hypodensity in the right frontal centrum semiovale (11/04) is new when compared to the CT from 08/13/2025, suspicious for small evolving infarct. No hemorrhagic conversion or significant mass effect. There is cerebral volume loss, with resultant ventricular and sulcal prominence. There are periventricular and deep white matter chronic small vessel ischemic changes. Skull and face: Calvarium and visualized facial bones appear intact, without suspicious lesions. Sinuses: Visualized sinuses and mastoids are clear. IMPRESSION: New small hypodensity in the right posterior frontal centrum semiovale is suspicious for an evolving infarct. No mass effect or hemorrhagic conversion. MRI could be performed for further evaluation if indicated clinically. Approved by: Ish Barreto M.D. on 08/15/2025 at 14:10 Head/Neck CTA: Radiologist's Impression: PROCEDURE: CT ANGIO HEAD AND NECK INDICATIONS: left wrist drop x 2 days TECHNIQUE: After the administration of intravenous contrast, 1 mm thick sections acquired from the aortic arch through the [place]. 3-dimensional mrsardf-vsjqcfjim-rabxdyqfzm (MIP) and/or volume rendering reformats were acquired of the central intracranial vasculature and neck separately. For radiation dose reduction, the following was used: automated exposure control, adjustment of mA and/or kV according to patient size. COMPARISON: [facility], CT, CT HEAD/BRAIN WO CON, 08/13/2025, 13:25. [facility], CT, CT HEAD/BRAIN WO CON, 08/15/2025, 13:45. FINDINGS: Image quality: Diagnostic. Cerebral CT Angiogram: Internal carotid arteries: No acute findings. Intracranial ICA demonstrate atherosclerotic calcifications without significant stenosis. No occlusion. No aneurysm. Anterior cerebral arteries: Unremarkable. No significant stenosis. No occlusion. No aneurysm. Middle cerebral arteries: Unremarkable. No significant stenosis. No occlusion. No aneurysm. Posterior cerebral arteries: Unremarkable. No significant stenosis. No occlusion. No aneurysm. Basilar artery: Unremarkable. No significant stenosis. No occlusion. No aneurysm. Vertebral arteries: Unremarkable as visualized. Dural venous sinuses: Unremarkable given phase of enhancement. Other: Please see the separately dictated report from the noncontrast CT of the head performed at the same time. No abnormal intracranial arterial-phase enhancement. Neck CT Angiogram: Internal carotid arteries: Atherosclerotic calcification at the left carotid bifurcation resulting in less than 50% stenosis. No significant stenosis at the right carotid bifurcation. No significant stenosis. No dissection or occlusion. Common carotid arteries: Unremarkable. No significant stenosis. No dissection or occlusion. External carotid arteries: Unremarkable. No occlusion. Vertebral arteries: Atherosclerotic calcifications are seen at the vertebral artery origin without significant stenosis. No significant stenosis. No dissection or occlusion. Aortic Arch and Mediastinum: There is a common origin of the left vertebral artery and left subclavian artery at the aortic arch, a normal anatomic variant. Partially visualized aortic arch unremarkable without evidence of aneurysm. Other: Mild emphysematous changes in the lung apices. Multilevel degenerative changes in the spine. IMPRESSION: No significant intracranial arterial abnormality is seen. Less than 50% stenosis of the left internal carotid artery at the carotid bifurcation. Any quantitative measurements of stenosis were performed using NASCET criteria. Approved by: Ish Barreto M.D. on 08/15/2025 at 14:44 CT - cervical spine: Radiologist's Impression: PROCEDURE: CT CERVICAL SPINE WO CON INDICATIONS: fall 3 days ago, wrist drop TECHNIQUE: Noncontrast 3 mm thick sections acquired from the skull base to the T4 level. Sagittal and coronal reformats were then constructed. For radiation dose reduction, the following was used: automated exposure control, adjustment of mA and/or kV according to patient size. COMPARISON: [facility], CT, CT CERVICAL SPINE WO CON, 08/13/2025, 13:25. [facility], CT, CT CERVICAL SPINE WO CON, 12/05/2024, 9:03. FINDINGS: Image quality: Excellent. Bones: No acute fractures or dislocations. Visualized superior ribs are intact. Multilevel disc space narrowing and degenerative endplate changes. Multilevel uncovertebral joint and facet hypertrophy. Soft tissues: Prevertebral soft tissues are normal in thickness. No paravertebral hematomas. No apical pneumothoraces. IMPRESSION: No acute displaced fracture or traumatic subluxation. Approved by: Ish Barreto M.D. on 08/15/2025 at 14:18 Left Wrist XR: Radiologist's Impression: PROCEDURE: XR WRIST LT MIN 3V INDICATIONS: fall few days ago, wrist drop and pain TECHNIQUE: 4 views of the wrist were acquired. COMPARISON: None. FINDINGS: Bones: No acute fractures or dislocations. No suspicious bony lesions. Soft tissues: No suspicious soft tissue calcifications. IMPRESSION: No acute osseous abnormality. If there is continued clinical concern or persistent symptoms, repeat radiographs or cross-sectional imaging (e.g. CT, MRI) may be helpful for further evaluation. Approved by: Ish Barreto M.D. on 08/15/2025 at 12:40 Brain MRI: Radiologist's Impression: PROCEDURE: MR HEAD/BRAIN WO CON INDICATIONS: stroke; LEFT WRIST DROP 3 days TECHNIQUE: Non-contrast axial T1 spin echo, axial T2 fast spin echo, sagittal and axial FLAIR, coronal T2 fast spin echo, axial gradient echo, axial diffusion and ADC through the brain. COMPARISON: None. FINDINGS: Image quality: Excellent. CSF spaces: Ventricles appear symmetric in size and shape. Basal cisterns are patent. No extra-axial fluid collections. Brain: No intracranial bleeds or mass effects. There is cerebral volume loss for age. There are periventricular and deep white matter chronic small vessel ischemic changes. Brainstem appears normal. Bilateral anterior circulation distribution areas of acute infarct are noted on diffusion-weighted imaging. Additionally, there are posterior distribution punctate infarcts in the left cerebellar hemisphere. Most of the infarct is in the right MCA distribution. The largest area of restricted diffusion is in posterior right frontal parietal deep white matter on axial diffusion image 18 of series 11 measuring approximately 1.4 x 1.0 cm. Other tiny punctate areas of acute infarct are noted on image 19, in which there are 3 subjacent punctate areas of infarct. More anteriorly and superiorly, in the right frontal cortex is a punctate area of acute infarct on image 21 of series 11. A tiny area of left deep white matter infarct subjacent to the left lateral ventricle body is present on image 17 of series 11. Multiple punctate areas of embolic infarct are present in the left cerebellar hemisphere on image 6 of series 11. Findings most likely represent embolic phenomena from a cardiac source. No chronic ischemic insults. Normal intravascular flow voids are present. Skull and face: Calvarial bone marrow is normal in signal. Orbits are normal. Sinuses: Sinuses and mastoids are clear. IMPRESSION: 1. Findings suggest cardiogenic source of bilateral embolic infarcts, predominantly right-sided, but also left-sided, likely bilateral MCA distribution as well as in the posterior circulation. 2. Underlying moderate to severe small vessel ischemic change. Dictated by: Esa Frost M.D. on 08/15/2025 at 15:46 Approved by: Esa Frost M.D. on 08/15/2025 at 16:05 [facility] Narrative Medical decision making narrative: 70-year-old male with a past medical history of metastatic prostate and colon cancer not undergoing active treatment, AFib on Eliquis, CAD s/p stents, CHF, chronic hepatitis who presents to the emergency department for left wrist weakness x 2-3 days. Differential diagnosis includes but is not limited to stroke, radial nerve palsy, wrist injury, etc. On exam the patient is in no acute distress, nontoxic appearing however he is chronically ill-appearing. He has left wrist drop that he is able to overcome however has no strength against resistance, minimal rubber gasket inspector trimmer strength, decreased sensation of left hand. He is not having pronator drift, leg drift, facial asymmetry, he is alert and keenly responsive. NIH score of about 1-2. Symptoms have been persistent for 3 days. We will initiate stroke workup, he is not a candidate for acute intervention. ED physcian Dr. Cates involved in patient's care. Troponin came back significantly elevated 0.304. Consulted cardiology. Patient is not currently experiencing chest pain or shortness of breath that is unchanged from his baseline however he does experience mild chest pain and dyspnea on exertion chronically which he currently has. 1515: Discussed case with cardiology Dr. Gardner. Admit, asprin, plavix, continue Eliquis, no heparin. 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 He is also not interested at this time. He is interested in possible palliative care but he would like to be admitted to the hospital for further evaluation and management. Labs reveal normal WBC count 6.3, hemoglobin 13.3 hematocrit 37.1. Platelets slightly decreased 101. Decreased sodium 130, potassium 3.1. Chloride 94. BUN 23 creatinine 1.11. Glucose 183. Total bilirubin slightly elevated 1.4, improved from baseline. LFTs baseline elevated, alkaline phosphatase is increased 560. Repeat troponin stayed the same, slightly decreased 0.303. Head CT concerning for new small hypodensity in the right posterior frontal centrum semiovale suspicious for evolving infarct. Head neck CTA reveals no significant intracranial arterial abnormality. Brain MRI reveals findings suggestive of cardiogenic source of bilateral embolic infarcts, predominantly right-sided but also left-sided, likely bilateral MCA distribution as well as in posterior circulation. Discussed all lab work and imaging results with the patient and his spouse. They understand that he has been diagnosed with a stroke likely from a cardiac source. He is interested in admission to the hospital, no aggressive treatment at this point in time but continued monitoring possible physical therapy, discussion for palliative care. He warrants admission for further management of stroke. 1630: DISCUSSED CASE WITH DR. VASQUES WHO GRACIOUSLY ACCEPTS THE PATIENT FOR ADMISSION INPATIENT FOR FURTHER MANAGEMENT. Patient is stable for transfer to the floor at this time. Discharge Plan Departure Patient Disposition: Admitted As Inpatient Clinical Impression: Stroke due to embolism Qualifiers: Precerebral and cerebral artery: middle cerebral artery Laterality of affected vessel: bilateral Qualified Code(s): I63.413 - Cerebral infarction due to embolism of bilateral middle cerebral arteries Admit Date/Time: 08/15/25 17:35 Admit Provider: Khang Vasques
--- NOTE | 2025-08-15 13:35 | PC.NURSE ---
first contact with patient, new IV started. Pt requesting routine home MSO4, provider notified.
[2025-08-15 13:39] LABS: Add Manual Diff / Slide Review NO; Hematocrit 37.1 % (41-53); Hemoglobin 13.3 g/dL (13.5-17.5); Lymphocytes Absolute Auto 1000 /uL (1100-4500); Mean Corpuscular HGB Conc 35.8 % (30-36); Mean Corpuscular Hemoglobin 30.9 PG (26-34); Mean Corpuscular Volume 86.5 fL (80-100); Platelet Count 101 X10^3/uL (150-400)
[2025-08-15 13:49] LABS: INR 1.4 (0.9-1.3); Prothrombin Time 15.4 SECONDS (9.4-12.5)
[2025-08-15 13:52] LABS: PTT Partial Thromboplastin Tim 26 SECONDS (25.1-36.5)
[2025-08-15 13:54] LABS: Alanine Aminotransferase 57 IU/L (<50); Albumin 4.1 g/dL (3.5-5.0); Albumin Globulin Ratio 1.2 (1.0-2.8); Alkaline Phosphatase 560 U/L (38-126); Blood Urea Nitrogen 23 mg/dL (9-20); Calcium 8.8 mg/dL (8.4-10.2); Carbon Dioxide 29 mmol/L (22-32); Chloride 94 mmol/L (98-107); Creatine Kinase 34 U/L (55-170); Estimated Glomerular Filt Rate > 60 mL/min (>60); Globulin 3.3 g/dL (1.7-4.1); Glucose 183 mg/dL (70-99); HEMOLYSIS < 15 (0-50); Potassium 3.1 mmol/L (3.4-5.1); Sodium 130 mmol/L (137-145); Total Protein 7.4 g/dL (6.3-8.2)
[2025-08-15 14:15] LABS: Troponin I 0.304 ng/mL (0.01-0.034)
--- NOTE | 2025-08-15 14:23 | EKG_ITS ---
[id number], [place] [address] Test Date: 2025-08-15 Pat Name: Brennan Marmolejo Jr Department: [facility] Room: Gender: Male Research And Development Manager: TORIE : 1955 Requested By: Order Number: [id number] Reading MD: Stanford Curtis Measurements Intervals [place] Rate: 90 P: 47 SD: 158 QRS: 0 QRSD: 76 T: 48 QT: 396 QTc: 484 Interpretive Statements Sinus rhythm with premature atrial complexes Possible Left atrial enlargement Septal infarct , age undetermined Possible Inferior infarct , age undetermined Electronically Signed On 08-17-2025 13:01:09 PST by Stanford Curtis
--- NOTE | 2025-08-15 14:28 | DI.MRI.S_ITS ---
PROCEDURE: MR HEAD/BRAIN WO CON INDICATIONS: stroke; LEFT WRIST DROP 3 days TECHNIQUE: Non-contrast axial T1 spin echo, axial T2 fast spin echo, sagittal and axial FLAIR, coronal T2 fast spin echo, axial gradient echo, axial diffusion and ADC through the brain. COMPARISON: None. FINDINGS: Image quality: Excellent. CSF spaces: Ventricles appear symmetric in size and shape. Basal cisterns are patent. No extra-axial fluid collections. Brain: No intracranial bleeds or mass effects. There is cerebral volume loss for age. There are periventricular and deep white matter chronic small vessel ischemic changes. Brainstem appears normal. Bilateral anterior circulation distribution areas of acute infarct are noted on diffusion-weighted imaging. Additionally, there are posterior distribution punctate infarcts in the left cerebellar hemisphere. Most of the infarct is in the right MCA distribution. The largest area of restricted diffusion is in posterior right frontal parietal deep white matter on axial diffusion image 18 of series 11 measuring approximately 1.4 x 1.0 cm. Other tiny punctate areas of acute infarct are noted on image 19, in which there are 3 subjacent punctate areas of infarct. More anteriorly and superiorly, in the right frontal cortex is a punctate area of acute infarct on image 21 of series 11. A tiny area of left deep white matter infarct subjacent to the left lateral ventricle body is present on image 17 of series 11. Multiple punctate areas of embolic infarct are present in the left cerebellar hemisphere on image 6 of series 11. Findings most likely represent embolic phenomena from a cardiac source. No chronic ischemic insults. Normal intravascular flow voids are present. Skull and face: Calvarial bone marrow is normal in signal. Orbits are normal. Sinuses: Sinuses and mastoids are clear. IMPRESSION: 1. Findings suggest cardiogenic source of bilateral embolic infarcts, predominantly right-sided, but also left-sided, likely bilateral MCA distribution as well as in the posterior circulation. 2. Underlying moderate to severe small vessel ischemic change. Dictated by: Esa Frost M.D. on 08/15/2025 at 15:46 Approved by: Esa Frost M.D. on 08/15/2025 at 16:05
[2025-08-15] MEDS: SODIUM CHLORIDE 0.9% 500 ML 1000 ML IV (14:41)
[2025-08-15] MEDS: MORPHINE IR 15 MG TABLET PO ×2 (14:46→20:12)
[2025-08-15 15:03] LABS: UR Morphine/Opiate cutoff 300 Positive (Negative); Ur Specific Gravity Normal (Normal); Urine MDMA Negative (Negative); Urine Methamphetamines Negative (Negative); Urine Tetrahydrocannabinol Positive (Negative); Urine Tricyclic Antidepressant Negative (Negative)
[2025-08-15] MEDS: ASPIRIN EC 81 MG TABLET PO (15:41)
[2025-08-15] MEDS: CLOPIDOGREL 75 MG TABLET PO (15:41)
[2025-08-15 15:57] LABS: Magnesium 1.6 mg/dL (1.6-2.3)
[2025-08-15 16:11] LABS: Troponin I 0.303 ng/mL (0.01-0.034)
[2025-08-15] MEDS: POTASSIUM CHLORIDE IN WATER 10 MEQ/100 ML PIGGYBACK 100 MEQ IV ×2 (16:27→17:51)
--- NOTE | 2025-08-15 16:44 | PM.HP.IH.1 ---
History of Present Illness History of Present Illness Date Patient Seen: 08/15/25 Time Patient Seen: 16:44 Chief complaint: left hand weakness 2 days Narrative: 70-year-old male well known to me with multiple medical issues detailed elsewhere presented to the emergency department with weakness in his left wrist and hand unable to hold his walker satisfactorily for the last 2-3 days or so. Probably closer to 2 days No fall or trauma he can recall that would have set this off ER evaluation demonstrates probable CVA source of symptoms he had a stroke workup which was positive for evidence of by multi-infarct process going on based on his MRI probably a cardiogenic source of emboli per Radiology interpretation. Patient with right greater than left-sided embolic infarcts consistent with probable bilateral MCA distribution as well as some findings in the posterior circulation CT angiography demonstrates a less than 50% stenosis of the left internal carotid and no significant intracranial arterial abnormality Lab work demonstrated abnormal troponin at 0.3, without significant change after 2 hours. No changes on ECG and no chest pain or other symptoms from patient beyond his usual. Patient not felt to be an interventional candidate being medically treated for his known coronary disease in part because of lack of efficacy of additional interventions and patient request Patient also with potassium of 3.1 receiving IV potassium in the emergency department Patient with known paroxysmal atrial fibrillation, chronically anticoagulated for same with Eliquis at low-dose. 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 anticoagulation Acute upper gastrointestinal bleeding Malignant neoplasm of prostate metastatic to bone Hypertensive urgency Colitis Hematuria Uncomplicated opioid dependence Generalized anxiety disorder Cannabis abuse Prostate cancer (~05/2019) Paroxysmal A-fib Transaminitis Kidney stones Diverticulosis of large intestine (03/31/12) Chronic hepatitis Coronary artery disease involving [place] coronary artery of [place] heart without angina pectoris (~2006) Essential hypertension Mixed hyperlipidemia Surgical History H/O heart artery stent (~2006) Hx of inguinal hernia surgery (~03/07/14) Hx of inguinal hernia surgery (~09/20/08) Status post laminectomy History of angioplasty (~12/2006) Social History marital status: unmarried,single number of children: 3 household members: caregiver lives independently: Yes caregiver/support person: No housing: house pets and animals: No education level: high school occupational status: other 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 leisure activities: music, fishing and other Tobacco: How many years used: 56 Smokeless tobacco user: other quit status: has quit before second hand exposure: Yes (On farmland/Boat.) alcohol intake: former substance use type: does not use and marijuana eating out: rarely or never Type(s) of exercise: normal ROM and activity and additional Meds Home Medications and Allergies Home Medications ?Medication ?Instructions ?Recorded ?Confirmed ?Type promethazine 25 mg rectal 25 mg MS Q4-6H PRN nausea and 11/18/20 08/15/25 Rx suppository vomiting #12 ea apixaban 2.5 mg tablet (Eliquis) 2.5 mg PO BID 03/29/24 08/15/25 History nitroglycerin 0.4 mg sublingual 0.4 mg sublingual Q5-15M PRN Chest 03/29/24 08/15/25 History tablet Pain ondansetron HCl 4 mg tablet 4 mg PO Q8H PRN Nausea And Vomiting 03/29/24 08/15/25 History sennosides 8.6 mg tablet (senna) 8.6 mg PO DAILY constipation 03/29/24 08/15/25 History morphine 10 mg/5 mL oral solution 10 mg (5 mL) PO Q6H PRN pain #100 08/07/24 08/15/25 Rx mL atorvastatin 80 mg tablet 80 mg PO ONCE PM 12/28/24 08/15/25 History isosorbide mononitrate 30 mg 30 mg PO QAM 12/28/24 08/15/25 History tablet,extended release 24 hr tamsulosin 0.4 mg capsule 0.4 mg PO DAILY 12/28/24 08/15/25 History scopolamine base 1 mg over 3 days 1 patch topical Q72H #10 ea 12/31/24 08/15/25 Rx transdermal patch (Transderm-Scop) duloxetine 20 mg capsule,delayed 40 mg (2 x 20 mg) PO DAILY #180 02/01/25 08/15/25 Rx release caps furosemide 20 mg tablet 20 mg PO DAILY #90 tabs 02/01/25 08/15/25 Rx pantoprazole 40 mg tablet,delayed 40 mg PO QAM #90 tabs 04/10/25 08/15/25 Rx release metoprolol succinate 100 mg 50 mg PO DAILY 05/02/25 08/15/25 History tablet,extended release 24 hr cyclobenzaprine 5 mg tablet 5 mg PO TID PRN Spasms #60 tabs 06/17/25 08/15/25 Rx hydromorphone 4 mg tablet 4 mg PO Q4-6H PRN pain #60 tabs 07/01/25 08/15/25 Rx (Dilaudid) naloxone 4 mg/actuation nasal 4 mg intranasal Q2M #2 ea 07/01/25 07/12/25 Rx spray (Narcan) lidocaine 5 % topical patch 1 patch topical DAILY #15 ea 07/12/25 08/15/25 Rx morphine 30 mg immediate release 15 mg (1/2 x 30 mg) PO Q4-6H PRN 07/12/25 08/15/25 Rx tablet pain #75 tabs Allergies Allergy/AdvReac Type Severity Reaction Status Date / Time No Known Drug Allergies Allergy Verified 08/15/25 11:33 Review of Systems Review of Systems ROS: Yes All systems reviewed with the patient and are negative except as otherwise documented Exam Vital Signs (past 8 hours): - 08/15/25 11:33 08/15/25 11:49 08/15/25 11:50 Temperature 98.1 F Pulse Rate 110 H 100 H 96 H Respiratory Rate 16 13 Blood Pressure 116/77 Pulse Oximetry 97 97 Oxygen Delivery Method Room Air 08/15/25 11:50 08/15/25 12:00 08/15/25 12:30 Temperature Pulse Rate 95 H 96 H Respiratory Rate 13 12 Blood Pressure 148/80 H Pulse Oximetry 94 94 Oxygen Delivery Method 08/15/25 13:00 08/15/25 13:30 Temperature Pulse Rate 97 H 94 H Respiratory Rate 12 13 Blood Pressure Pulse Oximetry 95 95 Oxygen Delivery Method Oxygen Delivery Method Room Air Narrative Exam Narrative: Much older than stated age appearing male in no obvious acute distress, but clearly chronically ill, kind of curled up on the gurney in the emergency department HEENT-normocephalic atraumatic PERRLA Neck-no lymphadenopathy no bruits Lungs-clear Heart-regular rate and rhythm no murmur Abdomen-positive bowel tones soft nontender nondistended Neuro-alert and oriented x3, no cranial nerve defects, decreased risk prevention engineer left hand and obvious decreased strength with both flexion and extension left wrist, normal at elbow and shoulder on left side, gait not tested Objective Labs 08/16/25 04:50 08/16/25 04:50 Labs: Laboratory Results - last 24 hr 08/15/25 08/15/25 08/15/25 13:23 14:46 15:34 WBC 6.3 RBC 4.29 L Hgb 13.3 L Hct 37.1 L MCV 86.5 MCH 30.9 MCHC 35.8 RDW 13.6 Plt Count 101 L Neut % (Auto) 63.1 Lymph % (Auto) 15.5 L [place] % (Auto) 20.7 H Eos % (Auto) 0.2 L Baso % (Auto) 0.5 Neut # (Auto) 4000 Lymph # (Auto) 1000 L [place] # (Auto) 1300 H Eos # (Auto) 0 Baso # (Auto) 0 PT 15.4 H INR 1.4 H APTT 26 Sodium 130 L Potassium 3.1 L Chloride 94 L Carbon Dioxide 29 BUN 23 H Creatinine 1.11 Estimated GFR > 60 BUN/Creatinine Ratio 20.7 Glucose 183 H Calcium 8.8 Magnesium 1.6 Total Bilirubin 1.4 H AST 66 H ALT 57 H Alkaline Phosphatase 560 H Total Creatine Kinase 34 L Troponin I 0.304 H* 0.303 H* Total Protein 7.4 Albumin 4.1 Globulin 3.3 Albumin/Globulin Ratio 1.2 U Opiates 300ng/mL cut Positive H Ur Oxycodone Screen Negative Urine Methadone Screen Negative Ur Barbiturates Screen Negative U Tricyclic Antidepress Negative Ur Phencyclidine Scrn Negative Ur Amphetamines Screen Negative U Methamphetamines Scrn Negative Ur MDMA Scrn (Ecstasy) Negative U Benzodiazepines Scrn Negative Urine Cocaine Screen Negative U Marijuana (THC) Screen Positive H Urine pH Normal Urine Specific [place] Normal Ur Creatinine Normal Assessment & Plan Assessment & Plan narrative: 1. 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 Likely cardiac source. Upon recommendations will continue with Eliquis but add dual antiplatelet therapy in part for his CVA in part for his coronary disease. Given these additional anticoagulants will not change dosing of his Eliquis but should remain on lower dose Will obtain echocardiography to see if there is an obvious intracardiac source such as a thrombus present that could be showering clot causing CVA. Patient will continue with his high intensity statin therapy which he has been on chronically for multiple indications Patient would benefit from skilled therapies see if we can get improvement in symptoms 2. Coronary artery disease-patient with positive troponin which has been seen off and on. Not felt to be a candidate for any additional interventions per Cardiology and especially per patient wishes. Continue with dual antiplatelet therapy which will be new for him in addition to his chronic oral long-acting nitrates and other medications. We will trend his troponin anyway repeat in morning. Check echo as above 3. Diabetes-continue with diabetic diet and coverage insulin as necessary. Recent A1c has been very well controlled 4. Metastatic prostate cancer-no specific intervention or therapies. Pain management as necessary 5. Code status-patient is very clearly requested a do not resuscitate in the event of a sudden cardiac or respiratory arrest which will be honored during this hospitalization 6. VTE prophylaxis-patient already anticoagulated with Eliquis. No additional chemo prophylaxis indicated or appropriate 7. Disposition-patient may well benefit from perhaps even hospice care at home. We do not really have palliative care available at this institution or in his home community setting. Will have our care management team evaluate options with him as well. Time-Based Coding :: [TOTAL MINUTES] spent with patient and on the chart (including review of chart, obtaining history, exam, reviewing outside data, placing orders, documenting exam and treatment plan, and counseling patient) on [DATE]. PROFEE Malt Roaster Document charge(s): Yes Charge Codes Initial inpatient/observation care: 67524
--- NOTE | 2025-08-15 18:59 | DI.ECHO.S_ITS ---
[facility] : : [address] : : [place] : : [address] : : Phone: [phone] Echocardiogram Report + + :Name: RAFIA SNIDER Study Date: 08/16/2025 Height: 67 in : :[place] [employer] ReadingLocation: Weight: 123 lb : : Gender: Male BSA: 1.6 m2 : :: 1955 Age: 70 yrs BP: 149/94 mmHg: :Reason For Study: STROKE : :Ordering Physician: RAHEEM, : :SHANNAN Fuller Performed By: Odin Hood : :Referring: SHANNAN MACIEL : + + Interpretation Summary The left ventricle is normal in size. The ejection fraction is estimated to be 70-75%. There has been no significant change since the previous exam. There are no focal wall motion abnormalities. Grade I diastolic dysfunction with normal left atrial pressure. The right ventricle is normal size. The left atrium grossly appears normal in size. The aortic root is mildly dilated. There is no obvious cardiac source of embolus noted on this transthoracic echocardiogram. Procedure: TDS - PECTUS EXCAVATUM. A two-dimensional transthoracic echocardiogram with color flow and Doppler was performed. The study quality was technically difficult. Comparison is made with the echocardiogram of 08/20/2024. The heart rate ranged between 77-87 bpm during the study. Left Ventricle: The left ventricle is normal in size. There is normal left ventricular wall thickness. There is no ventricular septal defect visualized. The ejection fraction is estimated to be 70-75%. There has been no significant change since the previous exam. There are no focal wall motion abnormalities. Grade I diastolic dysfunction with normal left atrial pressure. Right Ventricle: The right ventricle is normal size. Atria: The left atrium grossly appears normal in size. Right atrium not well visualized. There is no Doppler evidence for an atrial septal defect. Mitral Valve: The mitral valve leaflets appear mildly thickened. There is trace mitral regurgitation. Aortic Valve: The aortic valve is not well visualized. No aortic regurgitation is present. Tricuspid Valve: The tricuspid valve is not well visualized. There is trace tricuspid regurgitation. Pulmonic Valve: The pulmonic valve is not well visualized. Great Vessels: The aortic root is mildly dilated. The ascending aorta could not be visualized. The pulmonary is not well visualized. The IVC is of normal diameter and collapses greater than 50% with a sniff. This suggests a low right atrial pressure of 3 mm Hg. MMode/2D Measurements & Calculations LVIDd: 4.0 cm LVOT diam: 1.9 cm LVIDs: 2.8 cm Ao root diam: 4.1 cm FS: 28.1 % EPSS: 0.79 cm IVSd: 0.99 cm LVPWd: 1.0 cm LV chi. diameter/BSA (cm/m^2): 2.4 LV sys. diameter/BSA (cm/m^2): 1.7 LA A4 area: 12.4 cm2 IVC diam: 1.4 cm LA length (vol): 4.4 cm TAPSE: 1.9 cm Doppler Measurements & Calculations Ao V2 max: 119.0 cm/sec LVOT Max Miah: 85.8 cm/sec Ao V2 mean: 87.2 cm/sec LV V1 max P.9 mmHg Ao max P.7 mmHg LV V1 VTI: 15.6 cm Ao mean P.3 mmHg ZEUS(I,D): 1.9 cm2 Ao V2 VTI: 23.2 cm ZEUS(V,D): 2.0 cm2 sev ratio: 0.67 ZEUS indexed to BSA (cm^2/m^2): 1.1 MV E max miah: 58.5 cm/sec TR max miah: 237.1 cm/sec MV A max miah: 89.1 cm/sec TR max P.5 mmHg MV E/A: 0.66 Med Peak E' Miah: 4.5 cm/sec E/E' med: 13.0 Lat Peak E' Miah: 7.7 cm/sec E/E' lat: 7.6 E/e' average: 10.3 MV dec time: 0.17 sec SV(LVOT): 43.9 ml Reading Physician:12:29 PM
[2025-08-15] MEDS: ATORVASTATIN 20 MG TABLET 80 MG PO (20:12)
[2025-08-15] MEDS: APIXABAN 5 MG TABLET 2.5 MG PO (20:12)
[2025-08-15] MEDS: INSULIN LISPRO 100 UNIT/ML 3ML VIAL SUBCUT (20:13)
[2025-08-15] MEDS: TAMSULOSIN 0.4 MG CAPSULE PO (20:17)
[2025-08-16] VITALS (8 sets, daily range): BP systolic 122–149; BP diastolic 71–94; PULSE 76–87; RESP 12–18; TEMP 35.8–36.8; O2SAT 95–98
[2025-08-16 05:11] LABS: Add Manual Diff / Slide Review NO; Hematocrit 34.1 % (41-53); Hemoglobin 12.1 g/dL (13.5-17.5); Lymphocytes Absolute Auto 900 /uL (1100-4500); Mean Corpuscular HGB Conc 35.5 % (30-36); Mean Corpuscular Hemoglobin 30.3 PG (26-34); Mean Corpuscular Volume 85.3 fL (80-100); Platelet Count 91 X10^3/uL (150-400)
[2025-08-16 05:29] LABS: Blood Urea Nitrogen 18 mg/dL (9-20); Calcium 8.6 mg/dL (8.4-10.2); Carbon Dioxide 24 mmol/L (22-32); Chloride 97 mmol/L (98-107); Estimated Glomerular Filt Rate > 60 mL/min (>60); Glucose 160 mg/dL (70-99); HEMOLYSIS < 15 (0-50); Magnesium 1.7 mg/dL (1.6-2.3); Potassium 3.1 mmol/L (3.4-5.1); Sodium 130 mmol/L (137-145)
[2025-08-16 05:48] LABS: Troponin I 0.229 ng/mL (0.01-0.034)
[2025-08-16] MEDS: PANTOPRAZOLE DR 40 MG TABLET PO (05:52)
[2025-08-16] MEDS: MORPHINE IR 15 MG TABLET PO ×3 (05:57→20:56)
--- NOTE | 2025-08-16 07:27 | PM.PN.IH.1 ---
Subjective Subjective Date Patient Seen: 08/16/25 Time Patient Seen: 07:27 Interval history: Patient with uneventful night. Borderline intermittent hypertension periods requiring parenteral narcotics for pain relief, which is not surprising Labs this morning show persistent hypokalemia Echo to be done and patient to be seen by skilled therapies today Blood sugars adequately controlled Patient complaining of increased pain this morning. He is using the IV hydromorphone but it is very short-acting as he points out. His pain is mostly located in the pelvis and he believes he has got a fracture in the sacrum based on his evaluation from that ER visit on August 13. Hurts even to turn over in bed Exam Vital Signs (past 8 hours): - 08/16/25 05:02 Temperature 97.9 F Pulse Rate 82 Respiratory Rate 16 Blood Pressure 149/94 H Pulse Oximetry 95 Oxygen Flow Rate 0 Oxygen Delivery Method Room Air Oxygen Flow Rate 0 Objective Labs 08/16/25 04:50 08/16/25 04:50 Labs: Laboratory Results - last 24 hr 08/15/25 08/15/25 08/15/25 13:23 14:46 15:34 WBC 6.3 RBC 4.29 L Hgb 13.3 L Hct 37.1 L MCV 86.5 MCH 30.9 MCHC 35.8 RDW 13.6 Plt Count 101 L Neut % (Auto) 63.1 Lymph % (Auto) 15.5 L [place] % (Auto) 20.7 H Eos % (Auto) 0.2 L Baso % (Auto) 0.5 Neut # (Auto) 4000 Lymph # (Auto) 1000 L [place] # (Auto) 1300 H Eos # (Auto) 0 Baso # (Auto) 0 PT 15.4 H INR 1.4 H APTT 26 Sodium 130 L Potassium 3.1 L Chloride 94 L Carbon Dioxide 29 BUN 23 H Creatinine 1.11 Estimated GFR > 60 BUN/Creatinine Ratio 20.7 Glucose 183 H POC Whole Bld Glucose Calcium 8.8 Magnesium 1.6 Total Bilirubin 1.4 H AST 66 H ALT 57 H Alkaline Phosphatase 560 H Total Creatine Kinase 34 L Troponin I 0.304 H* 0.303 H* Total Protein 7.4 Albumin 4.1 Globulin 3.3 Albumin/Globulin Ratio 1.2 U Opiates 300ng/mL cut Positive H Ur Oxycodone Screen Negative Urine Methadone Screen Negative Ur Barbiturates Screen Negative U Tricyclic Antidepress Negative Ur Phencyclidine Scrn Negative Ur Amphetamines Screen Negative U Methamphetamines Scrn Negative Ur MDMA Scrn (Ecstasy) Negative U Benzodiazepines Scrn Negative Urine Cocaine Screen Negative U Marijuana (THC) Screen Positive H Urine pH Normal Urine Specific [place] Normal Ur Creatinine Normal 08/15/25 08/15/25 08/16/25 19:45 21:34 04:50 WBC 5.7 RBC 4.00 L Hgb 12.1 L Hct 34.1 L MCV 85.3 MCH 30.3 MCHC 35.5 RDW 13.4 Plt Count 91 L Neut % (Auto) 64.3 Lymph % (Auto) 15.1 L [place] % (Auto) 19.8 H Eos % (Auto) 0.4 L Baso % (Auto) 0.4 Neut # (Auto) 3700 Lymph # (Auto) 900 L [place] # (Auto) 1100 H Eos # (Auto) 0 Baso # (Auto) 0 PT INR APTT Sodium 130 L Potassium 3.1 L Chloride 97 L Carbon Dioxide 24 BUN 18 Creatinine 0.89 Estimated GFR > 60 BUN/Creatinine Ratio 20.2 Glucose 160 H POC Whole Bld Glucose 162 H 199 H Calcium 8.6 Magnesium 1.7 Total Bilirubin AST ALT Alkaline Phosphatase Total Creatine Kinase Troponin I 0.229 H* Total Protein Albumin Globulin Albumin/Globulin Ratio U Opiates 300ng/mL cut Ur Oxycodone Screen Urine Methadone Screen Ur Barbiturates Screen U Tricyclic Antidepress Ur Phencyclidine Scrn Ur Amphetamines Screen U Methamphetamines Scrn Ur MDMA Scrn (Ecstasy) U Benzodiazepines Scrn Urine Cocaine Screen U Marijuana (THC) Screen Urine pH Urine Specific [place] Ur Creatinine PFSH Medical History 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 Acute upper gastrointestinal bleeding Malignant neoplasm of prostate metastatic to bone Hypertensive urgency Colitis Hematuria Uncomplicated opioid dependence Generalized anxiety disorder Cannabis abuse Prostate cancer (~05/2019) Paroxysmal A-fib Transaminitis Kidney stones Diverticulosis of large intestine (03/31/12) Chronic hepatitis Coronary artery disease involving [place] coronary artery of [place] heart without angina pectoris (~2006) Essential hypertension Mixed hyperlipidemia Surgical History H/O heart artery stent (~2006) Hx of inguinal hernia surgery (~03/07/14) Hx of inguinal hernia surgery (~09/20/08) Status post laminectomy History of angioplasty (~12/2006) Social History (System 08/16/25 @ 07:26 by Lady Rae Ardon) marital status: unmarried,single number of children: 3 household members: caregiver lives independently: Yes caregiver/support person: No housing: house pets and animals: No education level: high school occupational status: other 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 CVA with evidence of embolization echo to be performed today. Continue anticoagulation. Had additional antiplatelet therapy added in part for cardiac issues yesterday. Skilled therapies today. Continue with high-intensity statin therapy. 2. Abnormal troponin in setting of known coronary artery disease-troponin remains elevated at 0.229, down from 0.303. Do not believe this represents active ischemia. Continue with dual antiplatelet therapy plus his oral long-acting nitrates beta-ky therapy etcetera. Not a candidate for any sort of interventional therapy nor is this at all desired by patient 3. Diabetes-adequate control for now. No change in diet or meds 4. Metastatic prostate cancer-continue with pain relief as able including parenteral hydromorphone. I did go back and review his imaging from his ER visit on August 13 and indeed there is evidence of some degree of insufficiency fracture in the sacrum which is where all of his metastatic disease seems to be concentrated. He is having a tremendous amount of pain. I would like to start him on a low-dose fentanyl patch to see if we can provide more continuous pain relief. He did try a fentanyl patch in the past and it was way too sedating and he disliked it but at this point that may be a better option for pain control than what we have been able to do thus far. Pain control is likely going to be 1 of the major impediment to discharge, and I think the continuous fentanyl patch is an excellent choice, in this setting for this patient. I will start at the low-dose though given his prior experience. 5. Disposition-depending on clinical outcomes including his PT/OT evaluations may benefit from whatever form of palliative care we have available to him and/or consideration of hospice Time-Based Coding :: [TOTAL MINUTES] spent with patient and on the chart (including review of chart, obtaining history, exam, reviewing outside data, placing orders, documenting exam and treatment plan, and counseling patient) on [DATE]. PROFEE [employer] Document charge(s): Yes Charge Codes Subsequent inpatient/observation care: 95939
[2025-08-16] MEDS: METOPROLOL ER 50 MG TABLET PO (08:34)
[2025-08-16] MEDS: TAMSULOSIN 0.4 MG CAPSULE PO ×2 (08:34→20:56)
[2025-08-16] MEDS: MAGNESIUM CHLORIDE 64 MG TABLET 128 MG PO (08:34)
[2025-08-16] MEDS: POTASSIUM CHLORIDE 20 MEQ TAB 40 MEQ PO ×3 (08:34→22:32)
[2025-08-16] MEDS: FUROSEMIDE 20 MG TABLET PO (08:34)
[2025-08-16] MEDS: ASPIRIN EC 81 MG TABLET PO (08:35)
[2025-08-16] MEDS: CYCLOBENZAPRINE 10 MG TABLET 5 MG PO (08:35)
[2025-08-16] MEDS: ISOSORBIDE MONONITRATE ER 30 MG TABLET PO (08:36)
[2025-08-16] MEDS: APIXABAN 5 MG TABLET 2.5 MG PO ×2 (08:36→20:56)
[2025-08-16] MEDS: SENNOSIDES 8.6 MG TABLET PO (08:36)
[2025-08-16] MEDS: CLOPIDOGREL 75 MG TABLET PO (08:36)
[2025-08-16] MEDS: fentaNYL 12 MCG/PATCH TOP (09:36)
--- NOTE | 2025-08-16 09:40 | PT.IIE ---
Surgical History (This Medical Record has been edited. Action required.) H/O heart artery stent (~2006) History of angioplasty (~12/2006) Hx of inguinal hernia surgery (~09/20/08) Hx of inguinal hernia surgery (~03/07/14) Status post laminectomy Medical History (This Medical Record has been edited. 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 Diverticulosis of large intestine (03/31/12) Essential hypertension Generalized anxiety disorder Hematuria Hypertensive urgency Kidney stones Malignant neoplasm of prostate metastatic to bone Mixed hyperlipidemia Paroxysmal A-fib Prostate cancer (~05/2019) Transaminitis Uncomplicated opioid dependence Physical Therapy Inpatient Evaluation/Re-Eval M1 PT IP Prior Functional Status Start: 08/16/25 10:16 Freq: NEEDED Status: Active Protocol: Document 08/16/25 09:40 DLM (Rec: 08/16/25 10:45 DLM Desktop) Medical Review Prior Functional Status Medical History Yes Reviewed Diet/Fluid Regular Consistency Communication WFL Mobility and Gait ambulates in house with FWW, he has 3 wheelchairs with two in the house and one in the barn He reports his pain limits his activity at home Activities of Daily He is doing basic ADL's on his own- bathroom, dressing, Living and IADL's hygiene, cooking He has help for medication management, transportation, cleaning (by Caregiver) He has another person who is hired fruit or nut farmworker Prior Functional He reports his pain has been difficult to manage at Level (Other details home. He takes pain medication regularly. ) Social History Household Members none Living Arrangements House Number of Floors ( 3 or More Floors Floors) Number of Stairs To ramp Enter/Railing? Home Environment Tub/Shower Home Equipment Front Wheel Walker,Straight Cane,Manual Wheelchair,Grab Bars Near Toilet,Grab Bars In Shower Additional Social right handed History Comment M2 PT-IP Current Condition Start: 08/16/25 10:16 Freq: NEEDED Status: Active Protocol: Document 08/16/25 09:40 DLM (Rec: 08/16/25 10:45 DLM Desktop) Physical Therapy Current Condition Current Condition Evaluation Date 08/16/25 Treatment Diagnosis CVA bilateral with left weakness, impaired gait Onset Date 08/15/25 M3 PT-IP Subjective Start: 08/16/25 10:16 Freq: NEEDED Status: Active Protocol: Document 08/16/25 09:40 DLM (Rec: 08/16/25 10:45 DLM Desktop) Subjective Physical Therapy Visit Type Type Initial Evaluation Visit Start Time 09:00 Visit Stop Time 09:40 Notes 40 min Number of RUBBER COMPOUNDER MIXER Visits 0 Physical Therapy Visit Comments Patient Comments He reports pain in right hip area that is the most severe. He also has pain in left UE and his back. He describes intermittent popping in left shoulder with pain. He reports feeling very tired today. He has not slept well which he believes is due to his pain Patient Goals unable to state Therapy Pain Assessment Pain When Pain Assessed During Mobility Pain Present Pain Present Pain Reported Location Right hip Intensity 8 Scale Used Numeric (0 - 10) Description Aching,Radiating,Spasm,With Movement Pain Behaviors Guarding,Wincing Pain Management Modification of Treatment,Re-positioning Techniques Lower Back Intensity 8 Scale Used Numeric (0 - 10) Description Aching Pain Behaviors Wincing Pain Management Re-positioning Techniques left wrist Intensity 6 Scale Used Numeric (0 - 10) Description Aching,Radiating,With Movement Pain Management Re-positioning Techniques M4 PT-IP Mobility and Gait Start: 08/16/25 10:16 Freq: NEEDED Status: Active Protocol: Document 08/16/25 09:40 DLM (Rec: 08/16/25 10:45 DLM Desktop) PT-Bed Mobility Assessment Rolling Type of Rolling Bilateral Level of Assist Independent Supine to Sit Supine to Sit Standby Assistance,Bedrails Sit to Supine Sit to Supine Standby Assistance,Bedrails Scooting Scooting to Edge of Independent Bed PT-Transfer Assessment Sit to and From Stand Sit to and from Contact Guard Assistance,Minimal Assistance,Use of Stand Upper Extremities Equipment Transfer Assistive Gait Belt,Front Wheeled Walker Device Comments Mobility Comments He prefers to sit up on left side of bed which he reports is less painful than right. He gets out of bed on his left at home. He was light-headed with initial sitting on edge of bed which resolved with seated rest break. He advanced to standing and side-steps at edge of bed. He requested back to bed. His pain and fatigue limited his activity this visit. His left hand intermittently falls off the FWW. He relies on UE support to manage his right hip area pain with weight bearing. Gait Assessment Gait Gait Assistance Minimum Assistance Required: Distance (Feet) 2 Assistive Devices Assistive Device Gait Belt,Front Wheeled Walker Gait Deviations General Gait Pattern Antalgic,Decreased Stride Length Factors Limiting Gait Function Factors Limiting Decreased Activity Tolerance,Pain Gait Function Comments Gait Comments Side-steps at edge of bed with FWW only this visit. He has increased right hip area pain with weight bearing on right LE. Pt is experienced with compensating with UE support on his FWW but his new left hand/wrist weakness complicates his ability to hold the FWW with left hand. PT-Balance Assessment Sitting Balance and Reactions Static Sitting Good Balance Ability Dynamic Sitting Good Balance Ability Standing Balance and Reactions Static Standing Good Balance Ability Dynamic Standing Fair Balance Ability Device Used FWW M5 PT-IP Objective Assessments Start: 08/16/25 10:16 Freq: NEEDED Status: Active Protocol: Document 08/16/25 09:40 DLM (Rec: 08/16/25 10:45 DLM Desktop) Orientation Orientation/Cognition Level of Alertness Alert Orientation Name,Age,Birthday,Month,Date,Year,Day of Week,Place, Situation Language Function No Deficits Noted Ability Safety Awareness Understands Safety Issues Memory Description No Deficits Noted Comments He is pleasant and cooperative Gross Range of Motion Upper Extremity ROM Assessment Within Functional Limits Lower Extremity ROM Assessment Within Functional Limits Impairments pain moving bilateral hips with right worse than left Strength Upper Extremity Strength Assessment Left Impaired Shoulder able to lift over his head Elbow moving activity Wrist grossly 3- to 3/5 Hand weak rate supervisor Lower Extremity Strength Assessment Bilaterally Impaired Hip flexion 4/5 with pain Knee right 4/5 with pain, left 4+/5 Ankle DF 5/5 Comments Strength Comments see Occupational Therapy evaluation for more details on UE strength Coordination Assessment Gross Coordination Gross Coordination Impaired Assessment Coordination he moves slowly in general but appears related to his Comments pain left hand is impaired with weakness Sensation Assessment Sensation Gross Sensation Left UE Impaired Sensation Pain Description Muscle Tone Muscle Tone WNL Yes M6 PT-IP Treatment Start: 08/16/25 10:16 Freq: NEEDED Status: Active Protocol: Document 08/16/25 09:40 DLM (Rec: 08/16/25 10:45 DLM Desktop) Physical Therapy Treatment Education Education Provided Safety M7 PT-IP Assessment and Plan Start: 08/16/25 10:16 Freq: NEEDED Status: Active Protocol: Document 08/16/25 09:40 DLM (Rec: 08/16/25 10:45 DLM Desktop) PT Summary Assessment and Plan Potential Rehabilitation Fair Potential Status of Condition Evolving at Evaluation Summary Impairments Pain,Strength,Balance,Coordination,Bed Mobility, Transfers,Gait,Activity Tolerance Assessment Summary Oj is alert and resting in bed. He was admitted with new onset left UE weakness. MRI suggests cardiogenic sources of emboli with infarcts bilaterally with right greater than left. Pt has chronic pain related to his prostate cancer with mets to his bones. He has known hx of right pelvic/sacral fx's. His new left UE weakness makes it difficult for him to hold the FWW that he uses for gait as well as hold items functionally with left hand. Will coordinate with Occupational Therapy to assess if adaptations to his FWW will improve his left hand rate supervisor on the FWW. He was only able to stand at bedside and take a few side-steps today. He reports fatigue and pain limit his activity today. He describes having a caregiver at home. I anticipate he will need extra assistance if he discharges home with caregiver support and home health. Unclear at this time is extra help is possible at home. He will need SNF rehab if he can not get extra help at home. His activity tolerance is very low at this time. Will continue to assess for discharge planning as he improves medically. Goals Bed Mobility Goal Independent Transfer Goal Independent,Front Wheeled Walker Gait Goal Standby Assistance,Front Wheel Walker Gait Distance 100 feet Other Goals Tolerate sitting up in chair for 2 hours to participate in ADL's and transportation Days to Meet Goals 7 Frequency of Treatment Frequency Of Once a Day Treatment Treatment Plan Physical Therapy Bed Mobility Training,Transfer Training,Gait Training, Treatment Plan Therapeutic Exercise,Balance Retraining,Discharge Planning,Hot or Cold Pack,Neuromuscular Re-ed, Coordination Retraining Other precautions for metastatic cancer to his bones Recommendations and Next Treatment Focus Precautions Other Precautions prostate cancer with bone mets, right pelvic and sacral fractures (Chronic) high risk for injury if he falls Recommendations To Nursing Amount of Assist 1 Person Assist Needed Discharge Recommendations PT Discharge Home with 04/04 Assist Available,Home vs SNF Recommendations Other Discharge unclear if he will have enough help at home Recommendations Transportation Needs Private Vehicle,Wheelchair/Cabulance at Discharge - PT assist 1
--- NOTE | 2025-08-16 10:59 | CM.DANOTE ---
Initial DCP Assessment Visit Note Reviewed EMR and team rounds for pt's medical status and updates. Met with pt and his cg/DPOA, Lisandra, at bedside to introduce self and role. Pt was found to be somewhat oriented, very somnolent. post-stroke. Pt resides alone in [place] in his own home [place] his [place]. His test driller checks on him throughout the day, and he was both Lisandra and another friend who assist him with care coordination and ADL/IADL needs. Lisandra will also plan to transport him home once he's medically cleared for home d/c. Payor: Medicare PCP: Dr. Vasques Pt is a 70 year-old M with a PMH of metastatic prostate and colon cancer, Afib, CAD, CHF, chronic hepatitis, and chronic pain. He presented to the ED for the second time this week with c/o acute pain in his L-wrist, secondary to a GLF he had earlier this week. He does also complain of worsening pain, and is unable to ambulate with his walker due to the L-hand pain and weakness. CT imaging in the ED also confirmed that pt had an evolving stroke. JAYME discussed goals and needs with pt/Lisandra, and provided them with resources for hiring additional in-home caregivers, as well as [facility]. DCP will continue to monitor for any further evolving needs prior to his d/c home. Discharge Planning/Care Management Advanced directive, confirm from FAMILY Start: 08/15/25 19:31 Freq: Q24H Status: Active Protocol: Document 08/15/25 19:31 AT (Rec: 08/15/25 19:31 AT [id number]) Advance Directive, confirm on record Time 19:31 Person contacted self Copy received Yes Advanced directive Yes available on record CM Discharge Assessment Start: 08/15/25 19:00 Freq: Status: Active Protocol: Document 08/16/25 10:56 DPL (Rec: 08/16/25 10:59 DPL [id number]) Discharge Planning Assessment Assigned Discharge JAYME Negron Correspondence Section Supervisor Provider Dr. Vasques Insurance Medicare Advance Directives? Yes: POLST Advance Directives No on File History Provided By Patient,Friend,Medical Record Expected Length of 2 Stay Has Patient been No admitted in last 30 days? Prior Living House Arrangements Household Members none Type of Relies on Others transporation used prior to admit Independent with ADL No: modified assistance with a walker and cg assist 's Is patient alert and No: oriented to name, place, but did have a stroke, and oriented? has memory deficits Needs Assistance Meal Prep,Managing Medications With Caregiver for No Another Comment N/A DME Already Rented / Bath Bench,Elevated Toilet Seat,FWW / Walker Owned Barriers to No Discharge Comment Patient's friends Peg and Lisandra assist him throughout the week with meds, ADLs, transportation Discharge Plan Home Transportation Patient reports that Lisandra can pick him up at time of Arrangement d/c. Additional Comment [facility] requested, in-home cg resources provided by EXPLOSIVE OPERATOR SUPERVISOR. If patient plan is No home with home health: Has signed face to face form been completed? Whiteboard Updated Yes in Patient Room with name and ext. # of Wrapper Sheeter Review Status In Process Please Provide Date 08/16/25 Initial DC Assessment Was Performed
--- NOTE | 2025-08-16 11:08 | OT.IPNOTE ---
Pt getting an ECHO and to check on pt later for OT eval.
[2025-08-16] MEDS: INSULIN LISPRO 100 UNIT/ML 3ML VIAL SUBCUT (11:48)
--- NOTE | 2025-08-16 14:42 | DIET.CONS ---
Dietary Consultation Note Admission Date: 08/15/2025 17:35 Assessment: 70 y M admitted for stroke. Dietitian consulted for weight loss. EMR reviewed, pt sleeping. Per care management note, referral sent for informational hospice visit. Ht: 170.18 cm Wt: 56 kg BMI: 19.3 UBW: 63.5 kg on 07/12/25, hx of 130-140# in last yr Last BM: 08/14/25 (08/15/25 19:24) MNA: 8 Armando Score: 17 Diet: 08/16/25 Breakfast Carbohydrate Consistent Diet Diet Modifications: Carbohydrate level: Medium (3 CHO) Reflex DM orders: No Food Texture: Level 7 - Regular Liquid Consistency: Level 0 - Thin Labs: RBC 4.00 X10^6/uL (4.5-5.9) L 08/16/25 04:50 Hgb 12.1 g/dL (13.5-17.5) L 08/16/25 04:50 Hct 34.1 % (41-53) L 08/16/25 04:50 Creatinine 0.89 mg/dL (0.66-1.25) 08/16/25 04:50 Nutrition Diagnosis: Severe chronic protein calorie malnutrition r/t inadequate oral intakes and increased nutrient needs (protein) aeb BMI underweight for age (19.3), -11% weight loss within 2 months (severe) and Metastatic prostate cancer Interventions: ONS max BID as pt desires or protein smoothie supplements EER: 1950 kcals (35 kcals/kg per BMI) 75-90 g protein (1.25-1.5 g/kg per cancer) Monitoring/Evaluations: PO intakes Electronically Signed by: Lacy Ortega 08/16/25 14:42 Clinical Diet[address] [id number]
--- NOTE | 2025-08-16 15:00 | OT.IP.EVAL ---
Current Diagnoses Cerebral infarction, unspecified (08/15/25) Past Medical History (This Medical Record has been edited. 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 Action required.) H/O heart artery stent (~2006) History of angioplasty (~12/2006) Hx of inguinal hernia surgery (~09/20/08) Hx of inguinal hernia surgery (~03/07/14) Status post laminectomy Occupational Therapy Inpatient Evaluation/Re-Eval M1 OT IP Prior Functional Status Start: 08/16/25 14:45 Freq: Status: Active Protocol: Document 08/16/25 14:45 [facility] (Rec: 08/16/25 15:20 [facility] Desktop) Medical Review Prior Functional Status Medical History Yes Reviewed Diet/Fluid Regular Consistency Communication WFL Mobility and Gait ambulates in house with FWW, he has 3 wheelchairs with two in the house and one in the barn He reports his pain limits his activity at home Activities of Daily He is doing basic ADL's on his own- bathroom, dressing, Living and IADL's hygiene, cooking- however lately his caregivers have been assisting him more now. He has help for medication management, transportation, cleaning (by Caregiver) He has another person who is hired grain farmer Prior Functional He reports his pain has been difficult to manage at Level (Other details home. He takes pain medication regularly. ) Social History Household Members none Living Arrangements House Number of Floors ( 3 or More Floors Floors) Number of Stairs To ramp Enter/Railing? Home Environment Tub/Shower Home Equipment Front Wheel Walker,Straight Cane,Manual Wheelchair, Bedside Commode,Tub Transfer Bench,Hospital Bed,Grab Bars Near Toilet,Grab Bars In Shower M2 OT-IP Current Condition Start: 08/16/25 14:45 Freq: Status: Active Protocol: Document 08/16/25 14:45 [facility] (Rec: 08/16/25 15:20 [facility] Desktop) Occupational Therapy Current Condition Current Condition Evaluation Date 08/16/25 Treatment Diagnosis B MCA CVA Diagnosis Onset Date 08/15/25 M3 OT- IP Subjective and Pain Start: 08/16/25 14:45 Freq: Status: Active Protocol: Document 08/16/25 14:45 [facility] (Rec: 08/16/25 15:20 [facility] Desktop) OT- Subjective Occupational Therapy Visit Type Type Initial Evaluation Visit Start Time 14: Visit Stop Time 14:45 Occupational Therapy Visit Comments Patient Comments Pt wanting to get up to the edge of the bed. OT Pain Assessment Pain When Pain Assessed At Rest Pain Present Pain Present Pain Reported Location Right hip Intensity 10 Scale Used Numeric (0 - 10) M4 OT- IP ADL's Start: 08/16/25 14:45 Freq: Status: Active Protocol: Document 08/16/25 14:45 [facility] (Rec: 08/16/25 15:20 [facility] Desktop) OT [id number] Comments OT Self-Feeding After getting pt upright in the bed able to drink his Comments smoothie. Educated pt to be upright and try to tuck his chin while drinking. OT ADL-Grooming Comments OT Grooming Comments Pt too tired to do at this time. OT ADL-Oral Care Comments Oral Care Comments Not performed. OT ADL-Dressing Comments OT Dressing Comments At this time pt too tired and would need MAXA. OT ADL-Toileting Comments OT Toileting Pt will benefit from assist as needed. Comments OT ADL-Bathing Comments OT Bathing Comments Pt will need assist. M5 OT- IP IADL's Start: 08/16/25 14:45 Freq: Status: Active Protocol: Document 08/16/25 14:45 [facility] (Rec: 08/16/25 15:20 [facility] Desktop) OT-Instrumental Activities of Daily Living Deficits IADL Deficits Deficits Identified Home Safety Awareness Awareness of Need Good Awareness for Assistance at Home M6 OT- IP Functional Cognition Start: 08/16/25 14:45 Freq: Status: Active Protocol: Document 08/16/25 14:45 [facility] (Rec: 08/16/25 15:20 [facility] Desktop) Cognitive Factors Limiting Selfcare Function Cognitive Ability Level of Alertness Alert Patient Orientation Name,Place,Situation Attention Span Capable of Focused Attention,Capable of Sustained Ability Attention Ability to Follow Able to Follow One Step Commands Commands Cognitive Comments Cognitive Assessment Pt very tired but able to follow commands for bed Comments mobility and education of how to use the remote to adjust the hospital bed. Pt needing cues to attend to his left arm as pt tends to have left wrist and elbow flexed. OT- Vision and Hearing OT- Hearing Assessment OT- Hearing WFL Assessment OT- Vision Assessment Visual Acuity WFL M7 OT- IP Mobility and Balance Start: 08/16/25 14:45 Freq: Status: Active Protocol: Document 08/16/25 14:45 [facility] (Rec: 08/16/25 15:20 [facility] Desktop) OT- Bed Mobility Assessment Supine to Sit Supine to Sit Assist Contact Guard Assistance Sit to Supine Sit to Supine Assist Standby Assistance OT- Balance Assessment Sitting Balance and Reactions Static Sitting Fair Balance Ability M8 OT- IP Objective Assessments Start: 08/16/25 14:45 Freq: Status: Active Protocol: Document 08/16/25 14:45 [facility] (Rec: 08/16/25 15:20 [facility] Desktop) OT Gross Range of Motion Upper Extremity Range of Motion Assessment Left Impaired OT Strength Upper Extremity Strength Assessment Left Impaired Comments Strength Comments LUE 3-/5 to 3/5. M9 OT- IP Assessment and Plan Start: 08/16/25 14:45 Freq: Status: Active Protocol: Document 08/16/25 14:45 [facility] (Rec: 08/16/25 15:20 [facility] Desktop) OT Summary Assessment and Plan Potential Rehabilitation Poor Potential Analytic Complexity High at Evaluation Summary OT Impairments Pain,Range of Motion,Strength Progress Towards Slow Progress due to Pain,Slow Progress due to Medical Goals Issues,Slow Progress due to Activity Tolerance Assessment Summary Pt High complexity with metastatic prostate cancer and now bilateral MCA CVA. Pt has LUE weakness, decreased proprioception, and now will need 24/7 assist for ADL and mobility needs. Educated pt on being sure to sit upright when trying to drink liquids. Per case management pt to go home with caregivers when medically stable and per CM note to have Hospice referral. Pt would benefit from left wrist brace for positioning needs especially at night. Goals OT-Other Goals To go over left UE positioning needs for pt. Days to Meet Goals 3 Treatment Plan OT Treatment Plan Neuromuscular Re-education Discharge Recommendations OT Discharge Home with 24/7 Assist Available,Home Health Recommendations Transportation Needs Private Vehicle,Wheelchair/Cabulance at Discharge
--- NOTE | 2025-08-16 15:00 | OT.IP.EVAL ---
Current Diagnoses Cerebral infarction, unspecified (08/15/25) Past Medical History (This Medical Record has been edited. Action required.) Acute upper gastrointestinal bleeding Cannabis abuse Chronic hepatitis Colitis Coronary artery disease involving [place] coronary artery of [place] heart without angina pectoris (~2006) Current use of terminal operator anticoagulation Diverticulosis of large intestine (03/31/12) Essential hypertension Generalized anxiety disorder Hematuria Hypertensive urgency Kidney stones Malignant neoplasm of prostate metastatic to bone Mixed hyperlipidemia Paroxysmal A-fib Prostate cancer (~05/2019) Transaminitis Uncomplicated opioid dependence Surgical History (This Medical Record has been edited. Action required.) H/O heart artery stent (~2006) History of angioplasty (~12/2006) Hx of inguinal hernia surgery (~09/20/08) Hx of inguinal hernia surgery (~03/07/14) Status post laminectomy Occupational Therapy Inpatient Evaluation/Re-Eval M1 OT IP Prior Functional Status Start: 08/16/25 14:45 Freq: Status: Active Protocol: Document 08/16/25 14:45 [facility] (Rec: 08/16/25 15:20 [facility] Desktop) Medical Review Prior Functional Status Medical History Yes Reviewed Diet/Fluid Regular Consistency Communication WFL Mobility and Gait ambulates in house with FWW, he has 3 wheelchairs with two in the house and one in the barn He reports his pain limits his activity at home Activities of Daily He is doing basic ADL's on his own- bathroom, dressing, Living and IADL's hygiene, cooking- however lately his caregivers have been assisting him more now. He has help for medication management, transportation, cleaning (by Caregiver) He has another person who is hired bee farmer Prior Functional He reports his pain has been difficult to manage at Level (Other details home. He takes pain medication regularly. ) Social History Household Members none Living Arrangements House Number of Floors ( 3 or More Floors Floors) Number of Stairs To ramp Enter/Railing? Home Environment Tub/Shower Home Equipment Front Wheel Walker,Straight Cane,Manual Wheelchair, Bedside Commode,Tub Transfer Bench,Hospital Bed,Grab Bars Near Toilet,Grab Bars In Shower M2 OT-IP Current Condition Start: 08/16/25 14:45 Freq: Status: Active Protocol: Document 08/16/25 14:45 [facility] (Rec: 08/16/25 15:20 [facility] Desktop) Occupational Therapy Current Condition Current Condition Evaluation Date 08/16/25 Treatment Diagnosis B MCA CVA Diagnosis Onset Date 08/15/25 M3 OT- IP Subjective and Pain Start: 08/16/25 14:45 Freq: Status: Active Protocol: Document 08/16/25 14:45 [facility] (Rec: 08/16/25 15:20 [facility] Desktop) OT- Subjective Occupational Therapy Visit Type Type Initial Evaluation Visit Start Time 14: Visit Stop Time 14:45 Occupational Therapy Visit Comments Patient Comments Pt wanting to get up to the edge of the bed. OT Pain Assessment Pain When Pain Assessed At Rest Pain Present Pain Present Pain Reported Location Right hip Intensity 10 Scale Used Numeric (0 - 10) M4 OT- IP ADL's Start: 08/16/25 14:45 Freq: Status: Active Protocol: Document 08/16/25 14:45 [facility] (Rec: 08/16/25 15:20 [facility] Desktop) OT [id number] Comments OT Self-Feeding After getting pt upright in the bed able to drink his Comments smoothie. Educated pt to be upright and try to tuck his chin while drinking. OT ADL-Grooming Comments OT Grooming Comments Pt too tired to do at this time. OT ADL-Oral Care Comments Oral Care Comments Not performed. OT ADL-Dressing Comments OT Dressing Comments At this time pt too tired and would need MAXA. OT ADL-Toileting Comments OT Toileting Pt will benefit from assist as needed. Comments OT ADL-Bathing Comments OT Bathing Comments Pt will need assist. M5 OT- IP IADL's Start: 08/16/25 14:45 Freq: Status: Active Protocol: Document 08/16/25 14:45 [facility] (Rec: 08/16/25 15:20 [facility] Desktop) OT-Instrumental Activities of Daily Living Deficits IADL Deficits Deficits Identified Home Safety Awareness Awareness of Need Good Awareness for Assistance at Home M6 OT- IP Functional Cognition Start: 08/16/25 14:45 Freq: Status: Active Protocol: Document 08/16/25 14:45 [facility] (Rec: 08/16/25 15:20 [facility] Desktop) Cognitive Factors Limiting Selfcare Function Cognitive Ability Level of Alertness Alert Patient Orientation Name,Place,Situation Attention Span Capable of Focused Attention,Capable of Sustained Ability Attention Ability to Follow Able to Follow One Step Commands Commands Cognitive Comments Cognitive Assessment Pt very tired but able to follow commands for bed Comments mobility and education of how to use the remote to adjust the hospital bed. Pt needing cues to attend to his left arm as pt tends to have left wrist and elbow flexed. OT- Vision and Hearing OT- Hearing Assessment OT- Hearing WFL Assessment OT- Vision Assessment Visual Acuity WFL M7 OT- IP Mobility and Balance Start: 08/16/25 14:45 Freq: Status: Active Protocol: Document 08/16/25 14:45 [facility] (Rec: 08/16/25 15:20 [facility] Desktop) OT- Bed Mobility Assessment Supine to Sit Supine to Sit Assist Contact Guard Assistance Sit to Supine Sit to Supine Assist Standby Assistance OT- Balance Assessment Sitting Balance and Reactions Static Sitting Fair Balance Ability M8 OT- IP Objective Assessments Start: 08/16/25 14:45 Freq: Status: Active Protocol: Document 08/16/25 14:45 [facility] (Rec: 08/16/25 15:20 [facility] Desktop) OT Gross Range of Motion Upper Extremity Range of Motion Assessment Left Impaired OT Strength Upper Extremity Strength Assessment Left Impaired Comments Strength Comments LUE 3-/5 to 3/5. M9 OT- IP Assessment and Plan Start: 08/16/25 14:45 Freq: Status: Active Protocol: Document 08/16/25 14:45 [facility] (Rec: 08/16/25 15:20 [facility] Desktop) OT Summary Assessment and Plan Potential Rehabilitation Poor Potential Analytic Complexity High at Evaluation Summary OT Impairments Pain,Range of Motion,Strength Progress Towards Slow Progress due to Pain,Slow Progress due to Medical Goals Issues,Slow Progress due to Activity Tolerance Assessment Summary Pt High complexity with metastatic prostate cancer and now bilateral MCA CVA. Pt has LUE weakness, decreased proprioception, and now will need 24/7 assist for ADL and mobility needs. Educated pt on being sure to sit upright when trying to drink liquids. Per case management pt to go home with caregivers when medically stable and per note to have Hospice referral. Pending progress of LUE, pt may benefit from wrist brace for positioning needs especially at night. Goals OT-Other Goals To go over left UE positioning needs for pt. Days to Meet Goals 3 Treatment Plan OT Treatment Plan Neuromuscular Re-education Discharge Recommendations OT Discharge Home with 24/7 Assist Available,Home Health Recommendations Transportation Needs Private Vehicle,Wheelchair/Cabulance at Discharge
--- NOTE | 2025-08-16 16:58 | OT.IP.TRT ---
Current Diagnoses Cerebral infarction, unspecified (08/15/25) Occupational Therapy Treatment Note M2 OT-IP Current Condition Start: 08/16/25 14:45 Freq: Status: Active Protocol: Document 08/16/25 14:45 [facility] (Rec: 08/16/25 15:20 [facility] Desktop) Occupational Therapy Current Condition Current Condition Evaluation Date 08/16/25 Treatment Diagnosis B MCA CVA Diagnosis Onset Date 08/15/25 M3 OT- IP Subjective and Pain Start: 08/16/25 14:45 Freq: Status: Active Protocol: Document 08/16/25 17:00 [facility] (Rec: 08/16/25 17:04 [facility] Desktop) OT- Subjective Occupational Therapy Visit Type Type Treatment Note Visit Start Time 14:50 Visit Stop Time 14:58 Occupational Therapy Visit Comments Patient Comments Able to get order for wrist brace to help with left wrist positioning needs for pt. OT Pain Assessment Pain When Pain Assessed At Rest Pain Present Pain Present Pain Reported Location Right hip Pain Behaviors Facial Grimacing,Holding Area M4 OT- IP ADL's Start: 08/16/25 14:45 Freq: Status: Active Protocol: Document 08/16/25 17:00 [facility] (Rec: 08/16/25 17:04 [facility] Desktop) OT ADL-Dressing Comments OT Dressing Comments Able to assist pt for kiley left wrist brace and pt aware to wear for comfort. M5 OT- IP IADL's Start: 08/16/25 14:45 Freq: Status: Active Protocol: Document 08/16/25 14:45 [facility] (Rec: 08/16/25 15:20 [facility] Desktop) OT-Instrumental Activities of Daily Living Deficits IADL Deficits Deficits Identified Home Safety Awareness Awareness of Need Good Awareness for Assistance at Home M6 OT- IP Functional Cognition Start: 08/16/25 14:45 Freq: Status: Active Protocol: Document 08/16/25 14:45 [facility] (Rec: 08/16/25 15:20 [facility] Desktop) Cognitive Factors Limiting Selfcare Function Cognitive Ability Level of Alertness Alert Patient Orientation Name,Place,Situation Attention Span Capable of Focused Attention,Capable of Sustained Ability Attention Ability to Follow Able to Follow One Step Commands Commands Cognitive Comments Cognitive Assessment Pt very tired but able to follow commands for bed Comments mobility and education of how to use the remote to adjust the hospital bed. Pt needing cues to attend to his left arm as pt tends to have left wrist and elbow flexed. OT- Vision and Hearing OT- Hearing Assessment OT- Hearing WFL Assessment OT- Vision Assessment Visual Acuity WFL M7 OT- IP Mobility and Balance Start: 08/16/25 14:45 Freq: Status: Active Protocol: Document 08/16/25 14:45 [facility] (Rec: 08/16/25 15:20 [facility] Desktop) OT- Bed Mobility Assessment Supine to Sit Supine to Sit Assist Contact Guard Assistance Sit to Supine Sit to Supine Assist Standby Assistance OT- Balance Assessment Sitting Balance and Reactions Static Sitting Fair Balance Ability M8 OT- IP Objective Assessments Start: 08/16/25 14:45 Freq: Status: Active Protocol: Document 08/16/25 14:45 [facility] (Rec: 08/16/25 15:20 [facility] Desktop) OT Gross Range of Motion Upper Extremity Range of Motion Assessment Left Impaired OT Strength Upper Extremity Strength Assessment Left Impaired Comments Strength Comments LUE 3-/5 to 3/5. M9 OT- IP Assessment and Plan Start: 08/16/25 14:45 Freq: Status: Active Protocol: Document 08/16/25 17:00 [facility] (Rec: 08/16/25 17:04 [facility] Desktop) OT Summary Assessment and Plan Potential Rehabilitation Poor Potential Analytic Complexity High at Evaluation Summary OT Impairments Pain,Range of Motion,Strength Progress Towards Slow Progress due to Pain,Slow Progress due to Medical Goals Issues,Slow Progress due to Activity Tolerance Assessment Summary Pt seen a second time to help issue and kiley left wrist brace for positioning and comfort for left wrist. Pt left wrist tends to be very flexed and pt not able to actively straighten his wrist at all times. Pt able to states good understanding for left wrist brace needs at this time. Goals OT-Other Goals To go over left UE positioning needs for pt. Days to Meet Goals 3 Treatment Plan OT Treatment Plan Neuromuscular Re-education Discharge Recommendations OT Discharge Home with / Assist Available,Home Health Recommendations Transportation Needs Private Vehicle,Wheelchair/Cabulance at Discharge
[2025-08-16] MEDS: ATORVASTATIN 20 MG TABLET 80 MG PO (20:56)
[2025-08-17 02:51] VITALS: BP 138/85; PULSE 75; RESP 18; TEMP 36.3; O2SAT 97
[2025-08-17] MEDS: POTASSIUM CHLORIDE 20 MEQ TAB 40 MEQ PO (04:30)
[2025-08-17 05:14] LABS: Blood Urea Nitrogen 16 mg/dL (9-20); Calcium 8.9 mg/dL (8.4-10.2); Carbon Dioxide 23 mmol/L (22-32); Chloride 103 mmol/L (98-107); Estimated Glomerular Filt Rate > 60 mL/min (>60); Glucose 147 mg/dL (70-99); HEMOLYSIS < 15 (0-50); Magnesium 1.8 mg/dL (1.6-2.3); Potassium 4.2 mmol/L (3.4-5.1); Sodium 132 mmol/L (137-145)
[2025-08-17 08:00] VITALS: O2SAT 99
[2025-08-17 08:37] VITALS: BP 144/89; PULSE 69; RESP 13; TEMP 36.5; O2SAT 98
[2025-08-17] MEDS: APIXABAN 5 MG TABLET 2.5 MG PO ×2 (08:41→20:24)
[2025-08-17] MEDS: CYCLOBENZAPRINE 10 MG TABLET 5 MG PO ×2 (08:43→20:24)
[2025-08-17] MEDS: CLOPIDOGREL 75 MG TABLET PO (08:43)
[2025-08-17] MEDS: ASPIRIN EC 81 MG TABLET PO (08:44)
[2025-08-17] MEDS: FUROSEMIDE 20 MG TABLET PO (08:44)
[2025-08-17] MEDS: PANTOPRAZOLE DR 40 MG TABLET PO (08:45)
[2025-08-17] MEDS: SODIUM CHLORIDE 0.9% FLUSH 10 ML IV ×2 (08:45→20:26)
[2025-08-17] MEDS: SENNOSIDES 8.6 MG TABLET PO (08:45)
[2025-08-17] MEDS: TAMSULOSIN 0.4 MG CAPSULE PO ×2 (08:45→20:24)
[2025-08-17] MEDS: METOPROLOL ER 50 MG TABLET PO (08:45)
[2025-08-17] MEDS: ISOSORBIDE MONONITRATE ER 30 MG TABLET PO (08:52)
[2025-08-17] MEDS: MORPHINE IR 15 MG TABLET PO ×2 (08:52→18:48)
--- NOTE | 2025-08-17 08:52 | P.PN_ITS ---
Subjective Subjective Date Patient Seen: 08/17/25 Time Patient Seen: 08:52 Interval history: Patient overall doing well. No major changes biggest issue is pain control. Not in good pain control at this time. Has not had hospice discussion. But is thinking that might be something he would like to do. Also constipation. No neurologic changes Exam Vital Signs (past 8 hours): - 08/17/25 02:51 08/17/25 08:37 Temperature 97.3 F L 97.7 F Pulse Rate 75 69 Respiratory Rate 18 13 Blood Pressure 138/85 144/89 H Pulse Oximetry 97 98 Oxygen Flow Rate 0 0 Oxygen Delivery Method Room Air Oxygen Flow Rate 0 Narrative Exam Narrative: Alert male lying in bed in no acute distress Lungs are clear heart is regular rate and rhythm Objective Labs 08/16/25 04:50 08/17/25 04:30 Labs: Laboratory Results - last 24 hr 08/16/25 08/16/25 08/16/25 11:46 16:26 19:53 Sodium Potassium Chloride Carbon Dioxide BUN Creatinine Estimated GFR BUN/Creatinine Ratio Glucose POC Whole Bld Glucose 199 H 148 H 172 H Calcium Magnesium 08/17/25 08/17/25 04:30 07:53 Sodium 132 L Potassium 4.2 Chloride 103 Carbon Dioxide 23 BUN 16 Creatinine 0.81 Estimated GFR > 60 BUN/Creatinine Ratio 19.8 Glucose 147 H POC Whole Bld Glucose 132 H Calcium 8.9 Magnesium 1.8 PFSH Medical History Current use of predatory animal exterminator anticoagulation Acute upper gastrointestinal bleeding Malignant neoplasm of prostate metastatic to bone Hypertensive urgency Colitis Hematuria Uncomplicated opioid dependence Generalized anxiety disorder Cannabis abuse Prostate cancer (~05/2019) Paroxysmal A-fib Transaminitis Kidney stones Diverticulosis of large intestine (03/31/12) Chronic hepatitis Coronary artery disease involving [place] coronary artery of [place] heart without angina pectoris (~2006) Essential hypertension Mixed hyperlipidemia Surgical History H/O heart artery stent (~2006) Hx of inguinal hernia surgery (~03/07/14) Hx of inguinal hernia surgery (~09/20/08) Status post laminectomy History of angioplasty (~12/2006) Social History (System 08/16/25 @ 07:26 by Lady Rae Ardon) marital status: unmarried,single number of children: 3 household members: none lives independently: Yes caregiver/support person: No housing: house pets and animals: No education level: high school occupational status: other 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, fishing and other Tobacco: How many years used: 56 Smokeless tobacco user: other quit status: has quit before second hand exposure: Yes (On farmland/Boat.) alcohol intake: former substance use type: does not use and marijuana eating out: rarely or never Type(s) of exercise: normal ROM and activity and additional Assessment & Plan Assessment & Plan narrative: Metastatic prostate cancer. Biggest issue. Pain control is not good. Long discussion with the patient about hospice. He understands. Would like to at least talk to them. This point it does not look like he is going to be capable going home without significant help and will need to get that set up. Pain control is not adequate at this time. We will start 2 mg of Dilaudid continue the morphine fentanyl patch and see how things go. May need to consider IV drip but patient I do not think he is at that point anymore. But will see how things go with discussion with hospice. Abnormal troponin. Stable at this point. No intervention. No intervention desired by patient. At this point we will continue his current medication Diabetes adequate control will follow. CVA. Appears stable at this point echo did not show anything definitive. Will continue to follow. Not anything that will be aggressively managed to continue physical therapy as best we can with his pain. Disposition. At this point appears as if we will consider hospice. Will get that consult while in the hospital. Need to be better with the pain control. Will aggressively do that and follow Time-Based Coding :: [TOTAL MINUTES] spent with patient and on the chart (including review of chart, obtaining history, exam, reviewing outside data, placing orders, documenting exam and treatment plan, and counseling patient) on [DATE].
[2025-08-17 09:15] VITALS: PULSE 77
[2025-08-17] MEDS: DOCUSATE 100 MG CAPSULE 200 MG PO ×2 (10:15→20:24)
[2025-08-17] MEDS: INSULIN LISPRO 100 UNIT/ML 3ML VIAL SUBCUT ×3 (12:45→20:40)
--- NOTE | 2025-08-17 13:40 | CM.DPC ---
DCP SNF Planning: Per MD, pt making progress and likely could be stable for discharge in 1-2 days. Per PT, recommend home with increased assist and HH vs SNF as pt below baseline. SW met bedside with pt and his POA Lisandra and they confirm that pt is needing more assist than baseline. Lisandra typically comes over on Sundays and gets pt's meds ready for the week and pt makes them breakfast. Then Lisandra comes over after work Tue and Fridays for dinner. Pt has other supportive staff/friends that check on him regularly but mostly home alone although Lisandra stays the night when needed but has not been needed very often. Pt still goes to Oncology appointments but has not been receiving any cancer treatments for a while and pt has already passed the initial timeframe of a year for survival and added another year to his life. Pt very motivated. They have had Hospice referrals a couple times but pt currently does not meet Hospice criteria at this time as he is more than a year out from his prostate CA dx and doing well per Lisandra. Discussed SNF and pt has no hx of SNF and home has been his preference but he does want to get stronger to attempt getting more of his independence back and they feel SNF best at discharge before returning home. Provided SNF Choice list and preference is [facility] due to location. [facility] referral made and they are reviewing and currently only one male bed open starting Sunday 08/19. PASRR done. JAYME Haynes
[2025-08-17 16:45] VITALS: BP 124/76; PULSE 69; RESP 14; TEMP 36.3; O2SAT 94
[2025-08-17] MEDS: ATORVASTATIN 20 MG TABLET 80 MG PO (20:25)
[2025-08-17 21:05] VITALS: BP 131/81; PULSE 75; RESP 18; TEMP 36.6; O2SAT 98
[2025-08-18] VITALS (7 sets, daily range): BP systolic 101–152; BP diastolic 67–91; PULSE 75–83; RESP 14–18; TEMP 35.7–36.3; O2SAT 96–99
[2025-08-18] MEDS: SODIUM CHLORIDE 0.9% FLUSH 10 ML IV ×3 (05:42→20:15)
[2025-08-18] MEDS: HYDROmorphone 2 MG/ML SYRINGE IV ×5 (05:42→20:15)
[2025-08-18] MEDS: PANTOPRAZOLE DR 40 MG TABLET PO (08:18)
[2025-08-18] MEDS: CLOPIDOGREL 75 MG TABLET PO (08:19)
[2025-08-18] MEDS: APIXABAN 5 MG TABLET 2.5 MG PO ×2 (08:19→20:15)
[2025-08-18] MEDS: ASPIRIN EC 81 MG TABLET PO (08:19)
[2025-08-18] MEDS: DOCUSATE 100 MG CAPSULE 200 MG PO ×2 (08:20→20:15)
[2025-08-18] MEDS: SENNOSIDES 8.6 MG TABLET PO (08:20)
[2025-08-18] MEDS: ISOSORBIDE MONONITRATE ER 30 MG TABLET PO (08:20)
[2025-08-18] MEDS: LIDOCAINE 5% PATCH 1 EACH TOP (08:20)
[2025-08-18] MEDS: FUROSEMIDE 20 MG TABLET PO (08:20)
[2025-08-18] MEDS: METOPROLOL ER 50 MG TABLET PO (08:21)
[2025-08-18] MEDS: TAMSULOSIN 0.4 MG CAPSULE PO ×2 (08:21→20:15)
[2025-08-18] MEDS: INSULIN LISPRO 100 UNIT/ML 3ML VIAL SUBCUT ×4 (08:26→20:31)
--- NOTE | 2025-08-18 09:35 | P.PN_ITS ---
Subjective Subjective Date Patient Seen: 08/18/25 Time Patient Seen: 09:35 Interval history: Patient seen in follow-up of prostate cancer metastatic with pain. Abnormal troponin. Diabetes. Patient overall had the 1st good night of sleep that he has had for some time. Pain is pretty well-controlled at this point. With no other changes. Currently taking 2 mg of Dilaudid every 2 hours morphine and fentanyl patch. Breathing well. Much better spirits today. No other significant changes or complaints Exam Vital Signs (past 8 hours): - 08/18/25 04:28 08/18/25 08:22 Temperature 96.6 F L 96.4 F L Pulse Rate 75 83 Respiratory Rate 16 14 Blood Pressure 124/79 152/88 H Pulse Oximetry 97 99 Oxygen Flow Rate 0 0 Oxygen Delivery Method Room Air Oxygen Flow Rate 0 Narrative Exam Narrative: Alert male lying in bed in no acute distress Lungs are clear heart is regular rate and rhythm Objective Labs 08/16/25 04:50 08/17/25 04:30 Labs: Laboratory Results - last 24 hr 08/17/25 08/17/25 08/17/25 11:46 16:36 20:38 POC Whole Bld Glucose 178 H 161 H 208 H 08/18/25 08:08 POC Whole Bld Glucose 195 H [facility] Medical History Current use of exterminator termite anticoagulation Acute upper gastrointestinal bleeding Malignant neoplasm of prostate metastatic to bone Hypertensive urgency Colitis Hematuria Uncomplicated opioid dependence Generalized anxiety disorder Cannabis abuse Prostate cancer (~05/2019) Paroxysmal A-fib Transaminitis Kidney stones Diverticulosis of large intestine (03/31/12) Chronic hepatitis Coronary artery disease involving [place] coronary artery of [place] heart without angina pectoris (~2006) Essential hypertension Mixed hyperlipidemia Surgical History H/O heart artery stent (~2006) Hx of inguinal hernia surgery (~03/07/14) Hx of inguinal hernia surgery (~09/20/08) Status post laminectomy History of angioplasty (~12/2006) Social History (System 08/16/25 @ 07:26 by Lady Rae Ardon) marital status: unmarried,single number of children: 3 household members: none lives independently: Yes caregiver/support person: No housing: house pets and animals: No education level: high school occupational status: other 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 Pain is actually much better controlled today. He is feeling better and slept well last night. Has no new changes or complaints. We will continue to follow no changes in treatment at this time. Will see how things go today. Hyponatremia. Yesterday 132 on BNP. We discussed this. Will obtain repeat tomorrow. If stable no further need workup needed Elevated troponin inpatient with known coronary artery disease. But no symptoms at this time. And given his metastatic prostate disease really not a candidate for significant treatment. Since he has having no symptoms. Do not need to change treatment plan at this time. No further follow. Diabetes. Control seems adequate hemoglobin A1c was 6.8 no other change. CVA. Overall stable. No certain worsening. This will be a difficult situation given his current situation with his metastatic prostate cancer and will just have to see how things go. But no change in Plavix. No bleeding noted. Code status DNR. Disposition. We discussed this. Clearly he is going to need to go on to hospice. His pain control is going to be a difficult situation as an outpatient. May need to adjust medications tomorrow to see if we can get him comfortable on an oral regime or increase his fentanyl patch and decrease his IV Dilaudid or switch to oral Dilaudid. Would have to be very aggressive at this point. We have previously discussed yesterday hospice will see how that goes. He is thinking about it. Has not made a decision. Discussed with social service who was looking at placement I still think his pain medicines will need to be better address will see how things go and follow from there. Time-Based Coding :: [TOTAL MINUTES] spent with patient and on the chart (including review of chart, obtaining history, exam, reviewing outside data, placing orders, documenting exam and treatment plan, and counseling patient) on [DATE].
--- NOTE | 2025-08-18 15:38 | CM.DPNOTE ---
DCP note TIME MOTION ANALYST reviewed EMR Gregg signed PASRR. PASRR now complete. per February at , was curious about a [facility] consult, TIME MOTION ANALYST updated her that pt/family declining Hospice. official acceptance still pending? P: anticipate dc to , potentially tomorrow if confirm able to accept, will continue to follow closely for DCP Coordination JAYME Andrade
[2025-08-18] MEDS: ATORVASTATIN 20 MG TABLET 80 MG PO (20:15)
[2025-08-19] VITALS (7 sets, daily range): BP systolic 100–149; BP diastolic 67–92; PULSE 76–102; RESP 16–20; TEMP 36.1–37.1; O2SAT 96–99
[2025-08-19] MEDS: HYDROmorphone 2 MG/ML SYRINGE IV ×6 (00:05→19:40)
[2025-08-19 05:42] LABS: Alanine Aminotransferase 31 IU/L (<50); Albumin 3.5 g/dL (3.5-5.0); Albumin Globulin Ratio 1.1 (1.0-2.8); Alkaline Phosphatase 267 U/L (38-126); Blood Urea Nitrogen 17 mg/dL (9-20); Calcium 8.8 mg/dL (8.4-10.2); Carbon Dioxide 25 mmol/L (22-32); Chloride 101 mmol/L (98-107); Estimated Glomerular Filt Rate > 60 mL/min (>60); Globulin 3.1 g/dL (1.7-4.1); Glucose 242 mg/dL (70-99); HEMOLYSIS < 15 (0-50); Potassium 3.8 mmol/L (3.4-5.1); Sodium 133 mmol/L (137-145); Total Protein 6.6 g/dL (6.3-8.2)
[2025-08-19] MEDS: PANTOPRAZOLE DR 40 MG TABLET PO (06:30)
[2025-08-19] MEDS: CYCLOBENZAPRINE 10 MG TABLET 5 MG PO ×2 (06:31→17:16)
--- NOTE | 2025-08-19 07:23 | PM.PN.IH.1 ---
Subjective Subjective Date Patient Seen: 08/19/25 Time Patient Seen: 07:23 Interval history: Basically uneventful weekend. Still having lots of pain requiring parenteral narcotics are ongoing basis despite the fentanyl patch etcetera. Reports from those close to him are that he is having some altered mental status which is consistently been the issue with his pain management in the past, enough medication to help control his pain results in untoward side effects especially revolving around his mental status Patient has declined hospice care preferring to go home as his next stop. He would really like to not have to go to detention Caregivers have reported some hallucinations and altered mental status as noted previously with the pain meds but he seems entirely appropriate and normal to me here today He has been getting the IV Dilaudid on a q.2 hours basis which is what it has been written for and he is well aware of that frequency No change in the weakness on the left hand or wrist. He has a brace on the wrist to keep it from flopping Exam Vital Signs (past 8 hours): - 08/19/25 02:01 Pulse Rate 97 H Respiratory Rate 16 Blood Pressure 126/86 Pulse Oximetry 99 Oxygen Delivery Method Room Air Oxygen Flow Rate 0 Objective Labs 08/16/25 04:50 08/19/25 04:50 Labs: Laboratory Results - last 24 hr 08/18/25 08/18/25 08/18/25 08:08 11:14 16:19 Sodium Potassium Chloride Carbon Dioxide BUN Creatinine Estimated GFR BUN/Creatinine Ratio Glucose POC Whole Bld Glucose 195 H 165 H 187 H Calcium Total Bilirubin AST ALT Alkaline Phosphatase Total Protein Albumin Globulin Albumin/Globulin Ratio 08/18/25 08/19/25 19:53 04:50 Sodium 133 L Potassium 3.8 Chloride 101 Carbon Dioxide 25 BUN 17 Creatinine 0.91 Estimated GFR > 60 BUN/Creatinine Ratio 18.7 Glucose 242 H POC Whole Bld Glucose 201 H Calcium 8.8 Total Bilirubin 0.9 AST 41 ALT 31 Alkaline Phosphatase 267 H D Total Protein 6.6 Albumin 3.5 Globulin 3.1 Albumin/Globulin Ratio 1.1 [facility] Medical History 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 Acute upper gastrointestinal bleeding Malignant neoplasm of prostate metastatic to bone Hypertensive urgency Colitis Hematuria Uncomplicated opioid dependence Generalized anxiety disorder Cannabis abuse Prostate cancer (~05/2019) Paroxysmal A-fib Transaminitis Kidney stones Diverticulosis of large intestine (03/31/12) Chronic hepatitis Coronary artery disease involving [place] coronary artery of [place] heart without angina pectoris (~2006) Essential hypertension Mixed hyperlipidemia Surgical History H/O heart artery stent (~2006) Hx of inguinal hernia surgery (~03/07/14) Hx of inguinal hernia surgery (~09/20/08) Status post laminectomy History of angioplasty (~12/2006) Social History (System 08/16/25 @ 07:26 by Lady Rae Ardon) marital status: unmarried,single number of children: 3 household members: none lives independently: Yes caregiver/support person: No housing: house pets and animals: No education level: high school occupational status: other 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/mormonism: None leisure activities: music, fishing and other Tobacco: How many years used: 56 Smokeless tobacco user: other quit status: has quit before second hand exposure: Yes (On farmland/Boat.) alcohol intake: former substance use type: does not use and marijuana eating out: rarely or never Type(s) of exercise: normal ROM and activity and additional Assessment & Plan Assessment & Plan narrative: 1. CVA secondary likely to his paroxysmal AFib-continue with his anticoagulation plus dual antiplatelet therapy 2. Coronary disease-continue with conservative non interventional therapy by continuing this long-acting nitrates dual antiplatelet therapy etcetera 3. Pain secondary to bony Mets-will increase his topical fentanyl patch. We have had this discussion in the past and patient would strongly prefer adequate control of pain as primary concern. Perhaps with time either the pain was settled out and he can have doses reduced or he will become more tolerant of the narcotics (and this seems like the more likely scenario) with fewer side effects 4. Diabetes-adequate control for now no changes 5. Disposition-once again we will give patient upon his feet with skilled therapies and as he reports he was previously able to round up 24/7 caregivers at home. If he is able to do that again maybe appropriate to discharge him home rather than to detention. We will see what his response to skilled therapies today is like Time-Based Coding :: [TOTAL MINUTES] spent with patient and on the chart (including review of chart, obtaining history, exam, reviewing outside data, placing orders, documenting exam and treatment plan, and counseling patient) on [DATE]. PROFEE Presales Engineer Document charge(s): Yes Charge Codes Subsequent inpatient/observation care: [id number]
[2025-08-19] MEDS: APIXABAN 5 MG TABLET 2.5 MG PO ×2 (09:03→21:12)
[2025-08-19] MEDS: ASPIRIN EC 81 MG TABLET PO (09:04)
[2025-08-19] MEDS: ISOSORBIDE MONONITRATE ER 30 MG TABLET PO (09:05)
[2025-08-19] MEDS: METOPROLOL ER 50 MG TABLET PO (09:05)
[2025-08-19] MEDS: LIDOCAINE 5% PATCH 1 EACH TOP (09:05)
[2025-08-19] MEDS: CLOPIDOGREL 75 MG TABLET PO (09:05)
[2025-08-19] MEDS: TAMSULOSIN 0.4 MG CAPSULE PO ×2 (09:05→21:13)
[2025-08-19] MEDS: SENNOSIDES 8.6 MG TABLET PO (09:05)
[2025-08-19] MEDS: FUROSEMIDE 20 MG TABLET PO (09:05)
[2025-08-19] MEDS: DOCUSATE 100 MG CAPSULE 200 MG PO ×2 (09:05→21:12)
[2025-08-19] MEDS: SODIUM CHLORIDE 0.9% FLUSH 10 ML IV ×2 (09:06→21:13)
[2025-08-19] MEDS: INSULIN LISPRO 100 UNIT/ML 3ML VIAL SUBCUT ×3 (09:10→17:20)
--- NOTE | 2025-08-19 12:35 | PT.IPTN ---
Current Diagnoses Malignant neoplasm of prostate (08/15/25) Secondary malignant neoplasm of bone (08/15/25) Cerebral infarction, unspecified (08/15/25) Physical Therapy Treatment Note M2 PT-IP Current Condition Start: 08/16/25 10:16 Freq: NEEDED Status: Active Protocol: Document 08/19/25 12:35 LRN (Rec: 08/19/25 15:05 LRN Laptop) Physical Therapy Current Condition Current Condition Evaluation Date 08/16/25 Treatment Diagnosis CVA bilateral with left weakness, impaired gait Onset Date 08/15/25 M3 PT-IP Subjective Start: 08/16/25 10:16 Freq: NEEDED Status: Active Protocol: Document 08/19/25 12:35 LRN (Rec: 08/19/25 13:00 LRN Laptop) Subjective Physical Therapy Visit Type Type Treatment Note Visit Start Time 12:00 Visit Stop Time 12:35 Notes 35 min Physical Therapy Visit Comments Patient Comments States he is frustrated. Pelvic pain rated 7/10 to start, s/p therapy 7/10 pain in pelvic region and L wrist. Therapy Pain Assessment Pain When Pain Assessed During Mobility Pain Present Pain Present Pain Reported Location Generalized Intensity 7 Scale Used Numeric (0 - 10) Pain Behaviors Facial Grimacing M4 PT-IP Mobility and Gait Start: 08/16/25 10:16 Freq: NEEDED Status: Active Protocol: Document 08/19/25 12:35 LRN (Rec: 08/19/25 13:00 LRN Laptop) PT-Bed Mobility Assessment Rolling Level of Assist Standby Assistance,1 Person Assistance Supine to Sit Supine to Sit Standby Assistance,1 Person Assistance,Bedrails Scooting Scooting to Edge of Standby Assistance Bed PT-Transfer Assessment Sit to and From Stand Sit to and from Contact Guard Assistance,Minimal Assistance,Use of Stand Upper Extremities Equipment Transfer Assistive Gait Belt,Front Wheeled Walker Device Transfers Transfer Destination Chair Transfer Ability Level of Assist Minimal Assistance,Moderate Assistance Comments Mobility Comments Pt preferring to sit up from L side of bed with use of bedrail to push from with RUE, as pt reported he can't use the L arm to push himself up. Gait Assessment Gait Gait Assistance Moderate Assistance,Maximum Assistance Required: Distance (Feet) 2 Assistive Devices Assistive Device Gait Belt,Front Wheeled Walker Orthotic/Prosthetic Yes Devices or Brace: Gait Deviations General Gait Pattern Antalgic,Decreased Stride Length Comments Gait Comments Egress Test w/FWW performed prior to mobilizing pt away from bed. He was able to complete test although LOB to the left x 2 walking forward and backward (no LOB with side stepping). L wrist brace worn during gait allowing for WBing as tolerated in L wrist. PT-Balance Assessment Sitting Balance and Reactions Static Sitting Good Balance Ability Dynamic Sitting Good Balance Ability Standing Balance and Reactions Static Standing Fair Balance Ability Dynamic Standing Fair Balance Ability Device Used FWW & L wrist brace M5 PT-IP Objective Assessments Start: 08/16/25 10:16 Freq: NEEDED Status: Active Protocol: Document 08/19/25 12:35 LRN (Rec: 08/19/25 13:00 LRN Laptop) Orientation Orientation/Cognition Level of Alertness Alert Orientation Name,Month,Place,Situation Language Function No Deficits Noted Ability Safety Awareness Understands Safety Issues Comments Doesn't know the date, day of the week. Pt reoriented to day & date. Other Assessments Other Other Assessments At start: Sitting: Blood pressure 135/76, HR 97, SpO2 98%. Pt was left in sitting with tray table & meal positioned in place. Call light placed within reach on pt's lap. Bed alarm initially on, pt left in chair with nursing notified that bed alarm was needed. Pt's significant other was present during lunch feeding; therefore nursing requested she be his bed alarm. Pt was made aware that the nursing staff would need to assist pt back to bed and he is not notify them with call light to get back to bed. M6 PT-IP Treatment Start: 08/16/25 10:16 Freq: NEEDED Status: Active Protocol: Document 08/19/25 12:35 LRN (Rec: 08/19/25 13:00 LRN Laptop) Physical Therapy Treatment Exercises Exercises Heel Slides Education Education Provided Safety Other Treatments Other Treatment Exercise: Jimmy heel slides in bed. LE positioning for Performed movement to decreased pelvic pain with movement. Instructed pt to weight bear on the L UE as tolerated for UE muscle stim. M7 PT-IP Assessment and Plan Start: 08/16/25 10:16 Freq: NEEDED Status: Active Protocol: Document 08/19/25 12:35 LRN (Rec: 08/19/25 13:00 LRN Laptop) PT Summary Assessment and Plan Potential Rehabilitation Good Potential Status of Condition Evolving at Evaluation Summary Impairments Pain,Strength,Balance,Coordination,Bed Mobility, Transfers,Gait,Activity Tolerance Assessment Summary Pt is alert and cooperative for therapy. Frustrated due to his pain and questions regarding pain throughout the treatment. He became light headed on initial supine>sit, but after sitting a little his vitals were good. He was able to pass the Egress Test, but had loss of balance to the left with fwd/bkwd walking (3 steps). He is limited in weightbearing through the L wrist. He may be more stable with a forearm walker, but the pt is more familiar with the FWW and as he was frustrated today, use of Forearm walker was deferred. Chronic pain due to prostate and bone cancer as well as right pelvic/sacral fx's. The pt is not safe with gait at this time; therefore would recommend SNF for rehab to improve gait mechanics and safety with gait. Goals Bed Mobility Goal Independent Transfer Goal Independent,Front Wheeled Walker Gait Goal Standby Assistance,Front Wheel Walker Gait Distance 100 feet Other Goals Tolerate sitting up in chair for 2 hours to participate in ADL's and transportation Days to Meet Goals 7 Frequency of Treatment Frequency Of Once a Day Treatment Treatment Plan Physical Therapy Bed Mobility Training,Transfer Training,Gait Training, Treatment Plan Therapeutic Exercise,Balance Retraining,Discharge Planning,Hot or Cold Pack,Neuromuscular Re-ed, Coordination Retraining Other precautions for metastatic cancer to his bones Recommendations and Next Treatment Focus Precautions Other Precautions prostate cancer with bone mets, right pelvic and sacral fractures (Chronic) high risk for injury if he falls. L wrist pain with weightbearing Weight Bearing Status Allowed Weight WBing as tolerated in L wrist Bearing Amount ( enter % or #) (%) Recommendations To Nursing Amount of Assist 1 Person Assist Needed Discharge Recommendations PT Discharge SNF Rehab Recommendations Transportation Needs Private Vehicle,Wheelchair/Cabulance at Discharge - PT assist 1
--- NOTE | 2025-08-19 13:50 | DIET.PN1 ---
Dietary Progress Note Assessment: F/u. Per EMR and team rounds, pt declining hospice. Met with pt at bedside. Variable PO intakes 25-75%. Ht: 170.18 cm Wt: 57.5 kg BMI: 19.3 UBW: 130-140# Last BM: 08/14/25 (08/15/25 19:24) MNA: 8 Armando Score: 18 Diet: 08/16/25 Breakfast Carbohydrate Consistent Diet Diet Modifications: Carbohydrate level: Medium (3 CHO) Reflex DM orders: No Food Texture: Level 7 - Regular Liquid Consistency: Level 0 - Thin Nutrition Percent Meal Consumed 75% 08/18/25 18:32 Percent Meal Consumed 25% 08/17/25 18:00 Labs: RBC 4.00 X10^6/uL (4.5-5.9) L 08/16/25 04:50 Hgb 12.1 g/dL (13.5-17.5) L 08/16/25 04:50 Hct 34.1 % (41-53) L 08/16/25 04:50 Creatinine 0.91 mg/dL (0.66-1.25) 08/19/25 04:50 Nutrition Diagnosis: Severe chronic protein calorie malnutrition r/t inadequate oral intakes and increased nutrient needs (protein) aeb BMI underweight for age (19.3), -11% weight loss within 2 months (severe) and Metastatic prostate cancer Interventions: Discussed options available to increase kcals/protein, supplemental drinks (Recc ensure max BID). Pt declines options at this time. EER: 1950 kcals (35 kcals/kg per BMI) 75-90 g protein (1.25-1.5 g/kg per cancer) Monitoring/Evaluations: PO intakes Electronically Signed by: Lacy Ortega 08/19/25 13:50 Clinical Dietitian [address] [address]
--- NOTE | 2025-08-19 14:14 | CM.DPC ---
DCP SNF Planning: Per MD, pt making some progress and not yet stable for d/c today and recommendation of SNF at d/c before home. Call from [facility] as they had referral from Tuesday and updated on plan of SNF at d/c before home and they will continue to follow for likely need of Hospice in the future. [facility] confirms that they can accept pt for SNF rehab tomorrow 08/20/25 maybe late morning but waiting to confirm time for transport. Updated MD who confirms likely d/c to SNF tomorrow pending his ongoing progress. PASRR done and signed by MD. Due to triage needs, unable to update pt bedside today. Tabatha Sands MSW
[2025-08-19] MEDS: MORPHINE IR 15 MG TABLET PO ×2 (17:16→21:49)
[2025-08-19] MEDS: ATORVASTATIN 20 MG TABLET 80 MG PO (21:12)
[2025-08-19] MEDS: REMOVE LIDOCAINE PATCH 1 EACH TOP (21:50)
[2025-08-20] MEDS: HYDROmorphone 2 MG/ML SYRINGE IV ×2 (00:01→04:04)
[2025-08-20 05:00] VITALS: BP 135/88; PULSE 78; RESP 16; TEMP 35.9; O2SAT 96
[2025-08-20] MEDS: PANTOPRAZOLE DR 40 MG TABLET PO (05:35)
[2025-08-20] MEDS: CYCLOBENZAPRINE 10 MG TABLET 5 MG PO (05:35)
[2025-08-20 07:00] VITALS: O2SAT 97
--- NOTE | 2025-08-20 07:37 | PM.DS.IH.1 ---
History of Present Illness History of Present Illness Date Patient Seen: 08/20/25 Time Patient Seen: 07:37 Chief complaint: left hand weakness 2 days Narrative: 70-year-old male well known to me with multiple medical issues detailed elsewhere presented to the emergency department with weakness in his left wrist and hand unable to hold his walker satisfactorily for the last 2-3 days or so. Probably closer to 2 days No fall or trauma he can recall that would have set this off ER evaluation demonstrates probable CVA source of symptoms he had a stroke workup which was positive for evidence of by multi-infarct process going on based on his MRI probably a cardiogenic source of emboli per Radiology interpretation. Patient with right greater than left-sided embolic infarcts consistent with probable bilateral MCA distribution as well as some findings in the posterior circulation CT angiography demonstrates a less than 50% stenosis of the left internal carotid and no significant intracranial arterial abnormality Lab work demonstrated abnormal troponin at 0.3, without significant change after 2 hours. No changes on ECG and no chest pain or other symptoms from patient beyond his usual. Patient not felt to be an interventional candidate being medically treated for his known coronary disease in part because of lack of efficacy of additional interventions and patient request Patient also with potassium of 3.1 receiving IV potassium in the emergency department Patient with known paroxysmal atrial fibrillation, chronically anticoagulated for same with Eliquis at low-dose. Sinus rhythm on admitting ECG Patient's past history otherwise includes metastatic prostate cancer for which she is not undergoing treatment history of chronic hepatitis with abnormal LFTs as demonstrated with his admission labs, type 2 diabetes and chronic opioid dependence for chronic pain mostly related to his metastatic prostate cancer Discharge Providers Provider Date of admission: 08/15/25 17:35 Discharge Date: 08/20/25 Primary care physician: Khang Vasques MD Consults: 08/15/25 18:59 Consult to Discharge Planning Routine Comment: Consult to Occupational Therapy Evaluate & Treat Comment: Physician Instructions: Evaluate and treat Consult to Physical Therapy Evaluate & Treat Comment: Physician Instructions: Evaluate and Treat 08/15/25 19:30 Consult to Dietitian, Adult Routine Comment: Reason For Exam: weight loss Consult to Pharmacy Routine Comment: med rec 08/17/25 11:04 Consult to Pharmacy Routine Comment: Per assessment Discharge provider: Khang Vasques MD Summary Hospital Course Discharge Diagnosis: 1. Acute CVA, multiple locations thought to be embolic in nature 2. Paroxysmal atrial fibrillation 3. Malignant neoplasm of prostate metastatic to bone 4. Hypertension 5. Type 2 diabetes 6. Coronary artery disease 7. Uncomplicated opioid dependence 8. Hyperlipidemia 9. Long-term use of anticoagulation Hospital Course: As above patient was admitted with left hand weakness and eventual workup showed multiple acute to subacute infarctions thought to be secondary to embolic phenomenon. Patient with known atrial fibrillation and chronically anticoagulated but this was felt to be the source of his CVA. He was seen by skilled therapies and felt by Physical therapy to require group home placement for rehab prior to returning home. Occupational therapy thought he is a bit more functional. By morning of discharge, had improved strength in his left wrist and hand. Patient with significant pain particularly in the sacrum secondary to his bony metastasis. He eventually required placement of a fentanyl patch for control of his pain which did lead to some very minor altered mental status but patient has been very emphatic in the past that he would prefer to have pain controlled as a primary goal. As an outpatient, patient was taking immediate release morphine orally and he can continue that for breakthrough pain Patient's diabetes well controlled during this hospitalization not an active issue Patient also with elevated troponin upon admission. He has a very complicated cardiac history not felt to be a candidate for any further cardiac interventions by Cardiology and patient himself would decline any further interventions. Per recommendation from Cardiology over the phone dual antiplatelet therapy with aspirin and Plavix was initiated. This may help reduce his risk of recurrent CVA as above as well. Patient without any cardiac symptoms Status at Discharge Cognitive/behavioral status at discharge: at baseline, oriented Functional status at discharge: uses cane/walker Overall status at discharge: patient is progressing back to baseline Time Spent with Patient Time spent: Greater than 30 minutes Exam Vital Signs (past 8 hours): - 08/20/25 05:00 Temperature 96.7 F L Pulse Rate 78 Respiratory Rate 16 Blood Pressure 135/88 Pulse Oximetry 96 Oxygen Flow Rate 0 Oxygen Delivery Method Room Air Oxygen Flow Rate 0 Objective Labs 08/16/25 04:50 08/19/25 04:50 Labs: Laboratory Results - last 24 hr 08/19/25 08/19/25 08/19/25 07:44 12:05 16:46 POC Whole Bld Glucose 162 H 171 H 215 H 08/19/25 19:39 POC Whole Bld Glucose 181 H [facility] Medical History Current use of snf anticoagulation Acute upper gastrointestinal bleeding Malignant neoplasm of prostate metastatic to bone Hypertensive urgency Colitis Hematuria Uncomplicated opioid dependence Generalized anxiety disorder Cannabis abuse Prostate cancer (~05/2019) Paroxysmal A-fib Transaminitis Kidney stones Diverticulosis of large intestine (03/31/12) Chronic hepatitis Coronary artery disease involving [place] coronary artery of [place] heart without angina pectoris (~2006) Essential hypertension Mixed hyperlipidemia Surgical History H/O heart artery stent (~2006) Hx of inguinal hernia surgery (~03/07/14) Hx of inguinal hernia surgery (~09/20/08) Status post laminectomy History of angioplasty (~12/2006) Social History marital status: unmarried,single number of children: 3 household members: none lives independently: Yes caregiver/support person: No housing: house pets and animals: No education level: high school occupational status: other 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/sabianism: None leisure activities: music, fishing and other Tobacco: How many years used: 56 Smokeless tobacco user: other quit status: has quit before second hand exposure: Yes (On farmland/Boat.) alcohol intake: former substance use type: does not use and marijuana eating out: rarely or never Type(s) of exercise: normal ROM and activity and additional Discharge Plan Discharge Plan Patient Disposition: SNF Transfer to: [facility] Consult as needed: Dental, Hearing, Mental health, Podiatry and Vision Discharge orders & Medications Prescriptions: New clopidogrel 75 mg Tablet 75 mg PO DAILY Qty: 30 0RF fentanyl 25 mcg/hr Patch 72 Hour 25 mcg topical Q72H Qty: 3 0RF aspirin 81 mg Tablet,Delayed Release (Dr/Ec) 81 mg PO DAILY Qty: 30 0RF polyethylene glycol 3350 [Gavilax] 17 gram Powder In Packet 17 g PO DAILY Qty: 100 0RF Continued pantoprazole 40 mg tablet,delayed release (DR/EC) 40 mg PO QAM Qty: 90 3RF cyclobenzaprine 5 mg tablet 5 mg PO TID PRN (Reason: Spasms) Qty: 60 0RF Eliquis 2.5 mg tablet 2.5 mg PO BID sennosides [senna] 8.6 mg tablet 8.6 mg PO DAILY nitroglycerin 0.4 mg tablet, sublingual 0.4 mg sublingual Q5-15M PRN (Reason: Chest Pain) ondansetron HCl 4 mg tablet 4 mg PO Q8H PRN (Reason: Nausea And Vomiting) furosemide 20 mg tablet 20 mg PO DAILY Qty: 90 3RF duloxetine 20 mg capsule,delayed release(DR/EC) 40 mg PO DAILY Qty: 180 3RF metoprolol succinate 100 mg tablet extended release 24 hr 50 mg PO DAILY lidocaine 5 % adhesive patch,medicated 1 patch topical DAILY Qty: 15 1RF Rx Instructions: leave on most painful area for up to 12 hrs atorvastatin 80 mg tablet 80 mg PO ONCE PM isosorbide mononitrate 30 mg tablet extended release 24 hr 30 mg PO QAM tamsulosin 0.4 mg capsule 0.4 mg PO DAILY scopolamine base [Transderm-Scop] 1 mg over 3 days Patch 3 Day 1 patch topical Q72H Qty: 10 0RF hydromorphone [Dilaudid] 4 mg tablet 4 mg PO Q4-6H PRN (Reason: pain) Qty: 60 0RF naloxone [Narcan] 4 mg/actuation spray,non-aerosol 4 mg intranasal Q2M Qty: 2 0RF Rx Instructions: spray 1 dose into ONE nostril; alternate nostrils w each dose until help arrives promethazine 25 mg suppository 25 mg RI Q4-6H PRN (Reason: nausea and vomiting) Qty: 12 0RF Changed morphine 30 mg tablet 15 - 30 mg PO Q4-6H MDD 90 mg PRN (Reason: pain) Qty: 75 0RF Discontinued morphine 10 mg/5 mL solution 10 mg PO Q6H PRN (Reason: pain) Qty: 100 0RF Follow up/Referrals: Khang Vasques MD [Primary Care Provider, Internal Medicine] Discharge Health Status Multidrug resistant organism: No MDRO Precautions: Bangs Diet/Activity/Treatments Diet: Diet as Tolerated Liquid consistency: Normal/Thin Food texture: Regular [facility] Reason for rehabilitation: Therapy following stroke and Recovery r/t decondition Rehab type: Physical therapy and Occupational therapy Visit Report/Discharge Packet Stand Alone Forms: Patient Portal/API Discharge Data Primary Care Provider: Khang Vasques PROFEE Charge Codes Discharge inpatient/observation: [id number]
[2025-08-20 08:00] VITALS: BP 138/86; PULSE 72; RESP 20; TEMP 36.3; O2SAT 97
[2025-08-20] MEDS: MORPHINE IR 15 MG TABLET PO (08:49)
[2025-08-20 08:50] VITALS: BP 138/86; PULSE 72
[2025-08-20] MEDS: APIXABAN 5 MG TABLET 2.5 MG PO (08:50)
[2025-08-20] MEDS: ISOSORBIDE MONONITRATE ER 30 MG TABLET PO (08:50)
[2025-08-20] MEDS: ASPIRIN EC 81 MG TABLET PO (08:50)
[2025-08-20] MEDS: TAMSULOSIN 0.4 MG CAPSULE PO (08:50)
[2025-08-20] MEDS: FUROSEMIDE 20 MG TABLET PO (08:50)
[2025-08-20] MEDS: SENNOSIDES 8.6 MG TABLET PO (08:50)
[2025-08-20] MEDS: CLOPIDOGREL 75 MG TABLET PO (08:50)
[2025-08-20] MEDS: DOCUSATE 100 MG CAPSULE 200 MG PO (08:50)
[2025-08-20] MEDS: METOPROLOL ER 50 MG TABLET PO (08:50)
[2025-08-20] MEDS: LIDOCAINE 5% PATCH 1 EACH TOP (08:51)
[2025-08-20] MEDS: SODIUM CHLORIDE 0.9% FLUSH 10 ML IV (08:51)
[2025-08-20] MEDS: INSULIN LISPRO 100 UNIT/ML 3ML VIAL SUBCUT ×2 (08:52→12:46)
[2025-08-20] MEDS: BISACODYL 10 MG SUPP PR (10:50)
--- NOTE | 2025-08-20 12:41 | CM.DPNOTE ---
DCP Continued: Reviewed EMR and team rounds for pt?s medical status. Per MD, pt cleared for discharge to SNF. Signed PASRR. Per Rachael at [facility], pt scheduled for transport at 1100 via their facility van. Per RN, pt has not had a documented BM in 6 days. CELLAR HAND notified [facility], will await BM for possible later transport time. Per RN, pt had a small BM at 1150. CELLAR HAND relayed this to [facility], they have coordinated a transport at 1330. CELLAR HAND notified RN, YANET. CELLAR HAND sent PASRR, Med list, and Rx to Admissions via secure email, placed in transfer packet. RN report# provided to pt RN. Plan: [facility] via facility van. CM Team will continue to follow for coordination of discharge plans. NICO Gillette
--- NOTE | 2025-08-20 14:00 | PC.NURSE ---
Pt discharged to [facility] at 1355, escorted off floor in wheelchair accompanied by facility designee. Discharge instructions included in packet for facility. Report called to Irma ([phone]) at [phone]. Patient left the floor with all belongings.
== END 2025-08-20 14:02 | DRG 65 ==
LOC: ED 16:33 → AC 17:37
PROVIDERS: Family Medicine; Admitting Provider Internal Medicine; Emergency Provider Physician Assistant; PCP Internal Medicine; Referring Provider Physician Assistant; Visit Provider Internal Medicine
DX: I63.413 Cerebral infarction due to embolism of bilateral middle cerebral arteries (principal); C79.51 Secondary malignant neoplasm of bone; F11.20 Opioid dependence, uncomplicated; E87.1 Hypo-osmolality and hyponatremia; C61 Malignant neoplasm of prostate; I48.0 Paroxysmal atrial fibrillation; I25.10 Atherosclerotic heart disease of native coronary artery without angina pectoris; G83.24 Monoplegia of upper limb affecting left nondominant side; E11.9 Type 2 diabetes mellitus without complications; G89.3 Neoplasm related pain (acute) (chronic); Z66 Do not resuscitate; I10 Essential (primary) hypertension; E87.6 Hypokalemia; R79.89 Other specified abnormal findings of blood chemistry; E78.2 Mixed hyperlipidemia; F17.200 Nicotine dependence, unspecified, uncomplicated; R29.701 NIHSS score 1; R29.702 NIHSS score 2; Z79.01 Long term (current) use of anticoagulants
CPT/HCPCS: 36415; 70450; 70496; 70498; 70551; 71045; 71260; 72125; 73110; 74177; 80048; 80053; 80305; 81003; 81015; 82550; 82962; 83605; 83735; 84484; 85025; 85610; 85730; 93005; 93306; 96374; 96375; 97116; 97162; 97167; 97530; 97535; 99223; 99233; 99239; 99284; 99285; J1171; J1815; J2405; J7040; Q9967